=== PATIENT | male | born 1945 | race Caucasian/White ===

== ENCOUNTER 2017-07-17 14:20 | Emergency (ER) | payer MEDICARE, OTHER ==
[~2017-07-17] VITALS: Ht 188 cm; Wt 72.6 kg
[~2017-07-17 14:20] MED LIST: ASPIR 8181 MG PO; ASPIRIN EC81 MG PO; ASPIRIN325 MG PO; ATORVASTATIN CA20 MG PO; COUMADIN5 MG PO; METOPROLOL TART25 MG PO; PLAVIX75 MG PO; WARFARIN SODIUM5 MG PO; ZESTRIL2.5 MG PO; ZOCOR40 MG PO
--- NOTE | 2017-07-17 20:56 | EKG ---
[facility] [address] [facility] [place] [address] Signed Sinus bradycardia Anterolateral infarct (cited on or before 17-JUL-2017) Abnormal ECG When compared with ECG of 03-NOV-2016 13:12, Serial changes of Anterior infarct present Confirmed by PARISA PENALOZA MD ([id number]) on 07/17/2017 8:56:02 PM Electronically Signed By: PARISA PENALOZA MD 07/17/172055 PATIENT NAME: CALIN CROWDER Electrocardiogram DATE OF : 49 PHYSICIAN: PARISA PENALOZA MD REPORT #: [id number] REPORT IS CONFIDENTIAL AND NOT TO BE RELEASED WITHOUT AUTHORIZATION
== END 2017-07-17 15:50 | disposition home or self-care (01) ==
LOC: ED 14:20
DX: R07.9 Chest pain, unspecified (principal); Z95.1 Presence of aortocoronary bypass graft; Z79.899 Other long term (current) drug therapy; Z79.82 Long term (current) use of aspirin; Z79.01 Long term (current) use of anticoagulants
CPT/HCPCS: 71020; 80053; 84484; 85025; 85610; 85730; 93005; 93010; 99284

== ENCOUNTER 2018-06-13 10:41 | Emergency (ER) | payer MEDICARE, OTHER ==
[~2018-06-13] VITALS: Ht 188 cm; Wt 77.1 kg
--- OUTSIDE RECORDS SUMMARY | ~2018-06-13 | XMS | Encounter Summary ---
Demographics + + + | Address | [address] | | | [place] [address] | + + + | Home Phone | | + + + | Preferred Language | Unknown | + + + | Marital Status | Single | + + + | Tenriism Affiliation | Unknown | + + + | Race | Unknown | + + + | Ethnic Group | Unknown | + + + Author + + + | Author | [employer] | + + + | Organization | [facility] [employer] [facility] | + + + | Address | Unknown | + + + | Phone | Unavailable | + + + Support + + +---------+ + | Name | Relationship | Address | Phone | + + +---------+ + | Jai Rahman | ECON | Unknown | | + + +---------+ + | Afshan Rahman | ECON | Unknown | | + + +---------+ + Care Team Providers + +------+ + | Care Health And Safety Trainer Name | Role | Phone | + +------+ + | Erick Bernstein DO | PCP | Unavailable | + +------+ + Reason for Visit + + + | Reason | Comments | + + + | Labs Only | | + + + Encounter Details +--------+ + + + + | Date | Type | Department | Care Team | Description | +--------+ + + + + | 03/13/ | Destiny | [facility] | Nia Cazares | Labs Only | | 2018 | on Only | Cardiology Chauncey | [place], [place]AMILA | | | | | [address] | | | | | | [place] | | | | | | [address] | | | | | | [phone] | | | +--------+ + + + [...] + +---------+ + | Alcohol Use | Drinks/We | oz/Week | Comments | | | ek | | | + + +---------+ + | No | | | | + + +---------+ + + + + | Sex Assigned at | Date Recorded | | | | + + + | Not on file | | + + + as of this encounter Plan of Treatment +--------+---------+ + + + | Date | Type | Specialty | Care Team | Description | +--------+---------+ + + + | 08/16/ | Office | Cardiology | Warren Crawley, | | | 2017 | Visit | | MD Octavio Fitzpatrick | | | | | | Dr [address], | | | | | | [place] [address] | | | | | | [phone] | | | | | | | | +--------+---------+ + + + as of this encounter Visit Diagnoses Not on filein this encounter"
--- OUTSIDE RECORDS SUMMARY | ~2018-06-13 | XMS | Clinical Summary ---
Demographics + + + | Address | [address] | | | [place] [address] | + + + | Home Phone | | + + + | Preferred Language | Unknown | + + + | Marital Status | Single | + + + | Amish Affiliation | CHR | + + + | Race | White | + + + | Ethnic Group | Not or | + + + Author + + + | Author | [facility] | + + + | Organization | [facility] | + + + | Address | Unknown | + + + | Phone | Unavailable | + + + Support + + + + + | Name | Relationship | Address | Phone | + + + + + | CASSIDY KRISHNAMURTHY | ECON | [address] | | | | | [place] | | | | | [address] | | + + + + + | Linh Pate | ECON | Unknown | | + + + + + Care Team Providers + +------+ + | Care Radio Personality Name | Role | Phone | + +------+ + | Erick Bernstein DO | PP | | + +------+ + Source Comments BRIDGETTE is fully live on both [facility] Ambulatory and [facility] InPatient.[facility] [place] Allergies No Known Allergies Current Medications + + + +---------+------+------+-------+ | Prescription | Sig. | Disp. | Refills | Star | End | Statu | | | | | | t | Date | s | | | | | | Date | | | + + + +---------+------+------+-------+ | simvastatin 20 mg | Take 1 Tab by mouth | 30 Tab | 11 | 01/0 | | Activ | | Oral tablet | once daily in the | | | 8/20 | | e | | | evening. | | | 13 | | | + + + +---------+------+------+-------+ | nitroglycerin 0.4 | Place 0.4 mg under | | | | | Activ | | mg Sublingual | tongue every five | | | | | e | | tablet, sublingual | minutes as needed. | | | | | | | | Do not crush. Place | | | | | | | | under tongue and | | | | | | | | allow to dissolve. | | | | | | | | Administer every 5 | | | | | | | | minutes for a | | | | | | | | maximum of 3 doses | | | | | | | | in 15 minutes. | | | | | | + + + +---------+------+------+-------+ | amiodarone 200 mg | Take 2 tablets ( 400 | | | | | Activ | | Oral tablet | mg) by mouth once | | | | | e | | | daily | | | | | | + + + +---------+------+------+-------+ | acetaminophen 650 | Take 1 Tab by mouth | | | 03/2 | | Activ | | mg Oral tablet | every four hours | | | 06/15 | | e | | | while awake. | | | 13 | | | + + + +---------+------+------+-------+ | aspirin chewable | Take 1 Tab by mouth | | | 03/2 | | Activ | | 81 mg Oral tablet, | once daily. | | | 06/15 | | e | | chewable | | | | 13 | | | + + + +---------+------+------+-------+ | folic acid 1 mg | Take 1 Tab by mouth | | | 03/2 | | Activ | | Oral tablet | once daily. | | | 06/15 | | e | | | | | | 13 | | | + + + +---------+------+------+-------+ | | Take 1 Tab by mouth | | | 03/2 | | Activ | | multivitamin-mineral | once daily. | | | 06/15 | | e | | s Oral tablet | | | | 13 | | | + + + +---------+------+------+-------+ | omeprazole 40 mg | Take 1 Cap by mouth | | | 03/2 | | Activ | | Oral capsule,delayed | once daily. | | | 20 | | e | | release(DR/EC) | | | | 13 | | | + + + +---------+------+------+-------+ | oxyCODONE, | Take 1 Tab by mouth | 40 Tab | 0 | 03/2 | | Activ | | immediate release, 5 | every four hours as | | | 20 | | e | | mg Oral tablet | needed for moderate | | | 13 | | | | | pain or severe pain | | | | | | | | (for pain.). | | | | | | + + + +---------+------+------+-------+ | thiamine 100 mg | Take 1 Tab by mouth | | | 03/2 | | Activ | | Oral tablet | once daily. | | | 920 | | e | | | | | | 13 | | | + + + +---------+------+------+-------+ | warfarin 2 mg Oral | Take 1 Tab by mouth | | | 11/25 | | Activ | | tablet | once daily at | | | 06/15 | | e | | | bedtime. INR goal | | | 13 | | | | | 2-3 - adjust dose in | | | | | | | | accordance c INR | | | | | | + + + +---------+------+------+-------+ Active Problems + + + | Problem | Noted Date | + + + | Coronary artery disease | 11/26/2012 | + + + | Arrhythmia | 09/29/2012 | + + + Immunizations + + + + | Name | Dates Previously Given | Next Due | + + + + | Influenza-high dose, | 10/02/2012 | | | pfree | | | + + + + | Pneumococcal 23 | 10/03/2012 | | + + + + Family History + + +------+ + | Medical History | Relation | Name | Comments | + + +------+ + | Heart Disease | Brother | | | + + +------+ + | Heart Disease | Father | | black-outs and [place] | + + +------+ + + +------+--------+ + | Relation | Name | Status | Comments | + +------+--------+ + | Brother | | | | + +------+--------+ + | Father | | | | + +------+--------+ + Social History + +-------+ +--------+------+ | [...] on file | | + + + Last Filed Vital Signs + + + + | Vital Sign | Reading | Time Taken | + + + + | Blood Pressure | 121/88 | 01/04/2013 1:13 PM PDT | + + + + | Pulse | 97 | 01/04/2013 1:13 PM PDT | + + + + | Temperature | 36.3 C (97.3 F) | 01/04/2013 1:13 PM PDT | + + + + | Respiratory Rate | 18 | 12/22/2012 6:09 PM PDT | + + + + | Oxygen Saturation | 100% | 01/04/2013 1:13 PM PDT | + + + + | Inhaled Oxygen | - | - | | Concentration | | | + + + + | Weight | 130.6 kg (288 lb) | 01/04/2013 1:13 PM PDT | + + + + | Height | 188 cm (6' 2") | 01/04/2013 1:13 PM PDT | + + + + | Body Mass Index | 36.98 | 01/04/2013 1:13 PM PDT | + + + + Plan of Treatment + + + + + | Health Maintenance | Due Date | Last Done | Comments | + + + + + | Pneumococcal (Adult) | | 10/03/2012 | | | (2 of 2 - PCV13) | 4 | | | + + + + + | INFLUENZA VACCINE | | 10/02/2012 | | | (FLU SHOT) | 8 | | | + + + + + Results Not on filefrom Last 3 Months Insurance + +--------+ +--------+ + + | Payer | Benefi | Subscriber | Type | Phone | Address | | | t Plan | ID | | | | | | / | | | | | | | Group | | | | | + +--------+ +--------+ + + | MEDICARE | MEDICA | xxxxxxxxxx | Medica | +- | [address] | | | RE A & | | re | [phone] | [place] [address] | | | B | | | | | + +--------+ +--------+ + + | COMMERCIAL | INDIVI | xxxxxxxxxxx | Indemn | | | | INDIVIDUAL | DUAL | x | ity | | | | | COMMER | | | | | | | CIAL | | | | | + +--------+ +--------+ + + | SNF RESIDENT | SNF | xxxxxxxxxx | Indemn | | | | | RESIDE | | ity | | | | | NT | | | | | + +--------+ +--------+ + + + +--------+ +--------+ + + | Guarantor Name | Accoun | Relation to | Date | Phone | Billing Address | | | t Type | Patient | of | | | | | | | | | | + +--------+ +--------+ + + | CALIN CROWDER | Person | Self [birth year] | Home: | [address] | | | [place] | | 1945 | [phone] | [place] [address] | | | [place] | | | [phone] | | + +--------+ +--------+ + +
--- OUTSIDE RECORDS SUMMARY | ~2018-06-13 | XMS | Clinical Summary ---
Demographics + + + | Address | [address] | | | [place] [address] | + + + | Home Phone | | + + + | Preferred Language | Unknown | + + + | Marital Status | Single | + + + | Quaker Affiliation | Unknown | + + + | Race | Unknown | + + + | Ethnic Group | Unknown | + + + Author + + + | Author | [employer] | + + + | Organization | [facility] [employer] [facility] | + + + | Address [...] Team Providers + +------+ + | Care Ore Grader Name | Role | Phone | + [...] | 7 | + + + + Encounters +--------+ + + + + | Date | Type | Specialty | Care Team | Description | +--------+ + + + + | 03/13/ | Documentati | | Nia Cazares | Labs Only | | 2018 | on Only | | YAMILA Alberts | | +--------+ + + + + from Last 3 Months [...] | | Warren Crawley, | | | 2017 | Visit | | MD Octavio Fitzpatrick | | | | | | Dr [address], | | | | | | [place] [address] | | | | | | [phone] | | | | | | | [...] +------+-------+ + | MEDICARE | MEDICA | [id number] | | | [address] | | | RE | | | | [place] [address] | | | IP-OP | | | | | + +--------+ +------+-------+ + | MEDICAID | MEDICA | [id number] | | | [address] | | | ID | | | | [place] | | | [place] | | | | [address] | + +--------+ +------+-------+ + + +--------+ +--------+ + + | Guarantor Name | Accoun | Relation to | Date | Phone | Billing Address | | | t Type | Patient | of | | | | | | | | | | + +--------+ +--------+ + + | CALIN CROWDER | Person | Self | [birth year] | Home: | [address] | | | al/[place]am | | 1945 | [phone] | [place] | | | [place] | | | [phone] | [address] | + +--------+ +--------+ + +
--- OUTSIDE RECORDS SUMMARY | ~2018-06-13 | XMS | Clinical Summary ---
Demographics + + + | Address | [address] | | | [place] [address] | + + + | Home Phone | | + + + | Preferred Language | Unknown | + + + | Marital Status | Single | + + + | Adventist Affiliation | CHR | + + + [...] [place] | | | | | [address] | | + + + + + | Linh Pate | ECON | Unknown | | + + + + + Care Team Providers + +------+ + | Care Refinish Technician Name | Role | Phone | + +------+ + | Erick Bernstein DO | PP | | + +------+ + Source Comments BRIDGETTE is fully live on both [facility] Ambulatory and [facility] InPatient.[facility] Allergies No Known Allergies Current Medications + [...] Disease | Father | | black-outs and [place] | + + +------+ + + +------+--------+ [...] | re | [address] | [place] [address] | | | B | | | [...] | | al/[place] | | 1945 | [phone] | [place] [address] | | | [place] | | | [phone] | | + +--------+ +--------+ + +
--- OUTSIDE RECORDS SUMMARY | ~2018-06-13 | XMS | Clinical Summary ---
Demographics + + + | Address | [address] | | | [place] [address] | + + + | Home Phone | | + + + | Preferred Language | Unknown | + + + | Marital Status | Single | + + + | Voodoo Affiliation | Unknown | + + + | Race | Unknown | + + + | Ethnic Group | Unknown | + + + Author + + + | Author | [employer] | + + + | Organization | [facility] [employer] [facility] | + + + | Address [...] Team Providers + +------+ + | Care Bookmaker'S Clerk Name | Role | Phone | + [...] | | | | | | [place] [address] | | | | | | [phone] | | | | | | | [...] +------+-------+ + | MEDICARE | MEDICA | [id number] | | | [address] | | | RE | | | | [place] [address] | | | IP-OP | | | | | + +--------+ +------+-------+ + | MEDICAID | MEDICA | [id number] | | | [address] | | | ID | | | | [place] | | | [place] | | | | [address] | + +--------+ +------+-------+ + + +--------+ +--------+ + + | Guarantor Name | Accoun | Relation to | Date | Phone | Billing Address | | | t Type | Patient | of | | | | | | | | | | + +--------+ +--------+ + + | CALIN CROWDER | Person | Self [birth year] | Home: | [address] | | | al/[place]am | | 1945 | [phone] | [place] | | | [place] | | | [phone] | [address] | + +--------+ +--------+ + +
--- OUTSIDE RECORDS SUMMARY | ~2018-06-13 | XMS | Encounter Summary ---
Demographics + + + | Address | [address] | | | [place] [address] | + + + | Home Phone | | + + + | Preferred Language | Unknown | + + + | Marital Status | Single | + + + | Anglican Affiliation | Unknown | + + + | Race | Unknown | + + + | Ethnic Group | Unknown | + + + Author + + + | Author | [employer] | + + + | Organization | [facility] | + + + | Address [...] Team Providers + +------+ + | Care Telephone Station Installer Name | Role | Phone | + [...] [place] | | | | | | [address] | | | | | | [phone] | | | +--------+ + + + [...] | | | | | | [place] [address] | | | | | | [phone] | | | | | | | | +--------+---------+ + + + as of this encounter Visit Diagnoses Not on filein this encounter"
[~2018-06-13 10:41] MED LIST changes: +LISINOPRIL5 MG PO
--- OUTSIDE RECORDS SUMMARY | 2018-06-13 10:46 | XMS ---
PreManage Notification: CALIN CROWDER Security Panel Machine Tender Events No recent Security Events currently on file CRITERIA MET - POL CARE PROVIDERS There are no care providers on record at this time. Mary has no Care Guidelines for this patient. Juan Daniel VISIT COUNT (12 MO.) 2 [facility] TOTAL 2 NOTE: Visits indicate total known visits. ED/C VISIT TRACKING (12 MO.) 06/13/2018 10:42 [facility] [place] TYPE: Emergency COMPLAINT: - R ARM/L ANKLE/L KNEE PAIN/FALL 07/17/2017 14:[address] [facility] [place] TYPE: Emergency COMPLAINT: - CHEST PAIN DIAGNOSES: - Chest pain, unspecified - terminal system operator (current) use of aspirin - Other skilled nursing (current) drug therapy - snf (current) use of anticoagulants - Presence of aortocoronary bypass graft INPATIENT VISIT TRACKING (12 MO.) No inpatient visits to display in this time frame [email or web address]
[2018-06-13] MEDS ORDERED: ULTRAM50 MG PO (13:23)
== END 2018-06-13 14:05 | disposition home or self-care (01) ==
LOC: ED 10:41
PROC: 0T9B70Z Drainage of Bladder with Drainage Device, Via Natural or Artificial Opening (ICD-10-PCS; principal; 2018-06-13)
DX: S93.402A Sprain of unspecified ligament of left ankle, initial encounter (principal); S83.92XA Sprain of unspecified site of left knee, initial encounter; M79.601 Pain in right arm; Z79.899 Other long term (current) drug therapy; Z79.01 Long term (current) use of anticoagulants; W19.XXXA Unspecified fall, initial encounter
CPT/HCPCS: 51701; 70450; 73060; 73560; 73610; 80053; 81001; 85025; 85610; 99284

== ENCOUNTER 2018-06-24 11:42 | Observation (INO) | payer MEDICARE, OTHER ==
[~2018-06-24] VITALS: Ht 188 cm; Wt 82.7 kg
--- OUTSIDE RECORDS SUMMARY | ~2018-06-24 | XMS | Clinical Summary ---
Demographics + + + | Address | [address] | | | [place] [address] | + + + | Home Phone | | + + + | Preferred Language | Unknown | + + + | Marital Status | Single | + + + | Hinduism Affiliation | Unknown | + + + | Race | Unknown | + + + | Ethnic Group | Unknown | + + + Author + + + | Author | [employer] | + + + | Organization | [facility] [employer] | + + + | Address [...] Team Providers + +------+ + | Care Edge Glue Machine Tender Name | Role | Phone | + +------+ + | Erick Bernstein DO | PP | Unavailable | + +------+ + Allergies No Known Allergies Current Medications + + +--------+---------+------+------+-------+ | Prescription | Sig. | Disp. | Refills | Star | End | Statu | | | | | | t | Date | s | | | | | | Date | | | + + +--------+---------+------+------+-------+ | senna (SENOKOT) | Take 1 tablet by | | | | | Activ | | 8.6 MG tablet | mouth 2 (two) times | | | | | e | | | daily. | | | | | | + + +--------+---------+------+------+-------+ | warfarin | Take 5 mg by mouth | | | | | Activ | | (COUMADIN) 5 MG | daily. | | | | | e | | tablet | | | | | | | + + +--------+---------+------+------+-------+ | acetaminophen | Take 650 mg by mouth | | | | | Activ | | (TYLENOL) 325 MG | every 6 (six) hours | | | | | e | | tablet | as needed. | | | | | | + + +--------+---------+------+------+-------+ | aspirin 81 MG | Take 81 mg by mouth | | | | | Activ | | tablet | daily. | | | | | e | + + +--------+---------+------+------+-------+ | atorvastatin | take 1 tablet by | 90 | 2 | 04/2 | 04/2 | Activ | | (LIPITOR) 20 MG | mouth NIGHTLY | tablet | | 5/20 | 5/20 | e | | tablet | | | | 18 | 19 | | + + +--------+---------+------+------+-------+ | lisinopril | Take 1 tablet by | 90 | 2 | 01/24 | 01/24 | Activ | | (ZESTRIL) 5 MG | mouth daily. 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 | 10/16/2012 | + + + Resolved Problems + + + + | Problem | Noted | Resolved | | | Date | Date | + + + + | IGNACIA (acute kidney injury) | 10/16/19 | | | | 13 | 7 | + + + + | Obesity | 10/16/19 | | | | 13 | 7 | + + + + | Hyperkalemia | 10/16/19 | | | | 13 | 7 | + + + + Social History + [...] + + + | Blood Pressure | 124/72 | 02/08/2018 11:32 AM PDT | + + + + | Pulse | 64 | 02/08/2018 11:32 AM PDT | + + + + | Temperature | 35.4 C (95.7 F) | 10/16/2012 12:27 PM PST | + + + + | Respiratory Rate | - | - | + + + + | Oxygen Saturation | 100% | 02/08/2018 11:32 AM PDT | + + + + | Inhaled Oxygen | - | - | | Concentration | | | + + + + | Weight | 81.1 kg (178 lb 12.8 | 02/08/2018 11:32 AM PDT | | | oz) | | + + + + | Height | 188 cm (6' 2") | 02/08/2018 11:32 AM PDT | + + + + | Body Mass Index | 22.96 | 02/08/2018 11:32 AM PDT | + + + + Plan of Treatment +--------+---------+ + + + | Date | Type | Specialty | Care Team | Description | +--------+---------+ + + + | 08/16/ | Office | | Warren Crawley, | | | 2018 | Visit | | MD Octavio Fitzpatrick | | | | | | Dr Reese, | | | | | | [place] [address] | | | | | | [phone] | | | | | | | | +--------+---------+ + + + + + + + + | Health Maintenance | Due Date | Last Done | Comments | + + + + + | Colon Cancer | | | | | Screening | 7 | | | | (Colonoscopy) | | | | + + + + + | Vaccine: Zoster (1 | | | | | of 2) | 7 | | | + + + + + | Vaccine: | | | | | Pneumococcal 65+ | 2 | | | | Low/Medium Risk (1 | | | | | of 2 - PCV13) | | | | + + + + + | Vaccine: Influenza | | 10/20/2011 | | | (#1) | 8 | | | + + + + + | Vaccine: | | 10/20/2011 | | | Dtap/Tdap/Td (2 - | 2 | | | | Td) | | | | + + + + + Results Not on filefrom Last 3 Months Insurance + +--------+ +------+-------+ + | Payer | Benefi | Subscriber | Type | Phone | Address | | | t Plan | ID | | | | | | / | | | | | | | Group | | | | | + +--------+ +------+-------+ + | MEDICARE | MEDICA | [id number] | | | [address] | | | RE | | | | [place] [address] | | | IP-OP | | | | | + +--------+ +------+-------+ + | MEDICAID | MEDICA | [id number] | | | [address] | | | ID | | | | [place], [place] | | | [place] | | | | [address] | + +--------+ +------+-------+ + + +--------+ +--------+ + + | Guarantor Name | Accoun | Relation to | Date | Phone | Billing Address | | | t Type | Patient | of | | | | | | | | | | + +--------+ +--------+ + + | CALIN CROWDER | Person | Self [birth year] Home: | [address] [place] [address] | | | al/Fam | | 1945 | [phone] | [place] | | | [place] | | | [phone] | [phone] | + +--------+ +--------+ + +
--- OUTSIDE RECORDS SUMMARY | ~2018-06-24 | XMS | Clinical Summary ---
Demographics + + + | Address | [address] | | | [place] [address] | + + + | Home Phone | | + + + | Preferred Language | Unknown | + + + | Marital Status | Single | + + + | Holiness Affiliation | CHR | + + + [...] [place] | | | | | [address] | | + + + + + | Linh Pate | ECON | Unknown | | + + + + + Care Team Providers + +------+ + | Care Laboratory Apparatus Glass Grinder Name | Role | Phone | + +------+ + | Erick Bernstein DO | PP | | + +------+ + Source Comments BRIDGETTE is fully live on both [facility] Amb[facility] and [facility] InPatient.[facility] Allergies No Known Allergies Current Medications + [...] Due | + + + + | Influenza, high dose | 10/02/2012 | | | seasonal, | | | | preservative-free | | | + + + + | Pneumococcal 23 | 10/03/2012 | | + + + + Family History + + +------+ + | Medical History | Relation | Name | Comments | + + +------+ + | Heart Disease | Brother | | | + + +------+ + | Heart Disease | Father | | black-outs and [place] | + + +------+ + + +------+--------+ [...] | re | [address] | [place] [address] | | | B | | | [...] Self | [birth year] | Home: | [address] | | | al/Fam | | 1945 | [phone] | [place] [address] | | | [place] | | | [phone] | | + +--------+ +--------+ + +
--- OUTSIDE RECORDS SUMMARY | ~2018-06-24 | XMS | Clinical Summary ---
Demographics + + + | Address | [address] | | | [place] [address] | + + + | Home Phone | | + + + | Preferred Language | Unknown | + + + | Marital Status | Single | + + + | Tenriism Affiliation | Unknown | + + + | Race | Unknown | + + + | Ethnic Group | Unknown | + + + Author + + + | Author | [employer] | + + + | Organization | [facility] [employer] | + + + | Address [...] Team Providers + +------+ + | Care Ice Guard Skating Rink Name | Role | Phone | + +------+ + | Eirck Bernstein DO | PP | Unavailable | [...] | | | | | | [place] [address] | | | | | | [phone] | | | | | | | [...] +------+-------+ + | MEDICARE | MEDICA | [id number] | | | [address] | | | RE | | | | [place] [address] | | | IP-OP | | | | | + +--------+ +------+-------+ + | MEDICAID | MEDICA | [id number] | | | [address] | | | ID | | | | [place], [place] | | | [place] | | | | [address] | + +--------+ +------+-------+ + + +--------+ +--------+ + + | Guarantor Name | Accoun | Relation to | Date | Phone | Billing Address | | | t Type | Patient | of | | | | | | | | | | + +--------+ +--------+ + + | CALIN CROWDER | Person | Self | [birth year] | Home: | [address] [place] [address] | | | al/Fam | | 1945 | [phone] | [place] | | | [place] | | | [phone] | [phone] | + +--------+ +--------+ + +
--- OUTSIDE RECORDS SUMMARY | ~2018-06-24 | XMS | Clinical Summary ---
Demographics + + + | Address | [address] | | | [place] [address] | + + + | Home Phone [...] [place] | | | | | [address] | | + + + + + | Linh Pate | ECON | Unknown | | + + + + + Care Team Providers + +------+ + | Care Covering Machine Tender Name | Role | Phone | + +------+ + | Erick Bernstein DO | PP | | + +------+ + Source Comments BRIDGETTE is fully live on both [facility] and [facility] InPatient.[facility] Allergies No Known Allergies Current Medications [...] | re | [address] | [place] [address] | | | B | | | [...] | | al/Fam | | 1945 | [phone] | [place] [address] | | | [place] | | | [phone] | | + +--------+ +--------+ + +
--- OUTSIDE RECORDS SUMMARY | ~2018-06-24 | XMS | Clinical Summary ---
Demographics + + + | Address | [address] | | | [place] [address] | + + + | Home Phone [...] [place] | | | | | [address] | | + + + + + | Linh Pate | ECON | Unknown | | + + + + + Care Team Providers + +------+ + | Care Drawbench Operator Name | Role | Phone | + +------+ + | Erick Bernstein DO | PP | | + +------+ + Source Comments BRIDGETTE is fully live on both [facility] Amb[facility] and [facility] InPatient.[facility] Allergies No Known Allergies Current Medications + [...] Disease | Father | | black-outs and [place] | + + +------+ + + +------+--------+ [...] | re | [address] | [place] [address] | | | B | | | [...] | | al/Fam | | 1945 | [phone] | [place] [address] | | | [place] | | | [phone] | | + +--------+ +--------+ + +
--- OUTSIDE RECORDS SUMMARY | ~2018-06-24 | XMS | Clinical Summary ---
Demographics + + + | Address | [address] | | | [place] [address] | + + + | Home Phone | | + + + | Preferred Language | Unknown | + + + | Marital Status | Single | + + + | Christian Affiliation | Unknown | + + + | Race | Unknown | + + + | Ethnic Group | Unknown | + + + Author + + + | Author | [employer] | + + + | Organization | [facility] [employer] | + + + | Address [...] Team Providers + +------+ + | Care Marketing Trainee Name | Role | Phone | + [...] | | | | | | [place] [address] | | | | | | [phone] | | | | | | | [...] +------+-------+ + | MEDICARE | MEDICA | [id number] | | | [address] | | | RE | | | | [place] [address] | | | IP-OP | | | | | + +--------+ +------+-------+ + | MEDICAID | MEDICA | [id number] | | | [address] | | | ID | | | | [place], [place] | | | [place] | | | | [address] | + +--------+ +------+-------+ + + +--------+ +--------+ + + | Guarantor Name | Accoun | Relation to | Date | Phone | Billing Address | | | t Type | Patient | of | | | | | | | | | | + +--------+ +--------+ + + | CALIN CROWDER | Person | Self | [birth year] | Home: | [address] [place] [address] | | | al/Fam | | 1945 | [phone] | [place] | | | [place] | | | [phone] | [phone] | + +--------+ +--------+ + +
[~2018-06-24 11:42] MED LIST changes: +ULTRAM50 MG PO
--- OUTSIDE RECORDS SUMMARY | 2018-06-24 11:46 | XMS ---
PreManage Notification: CALIN CROWDER Security Lehr Cutter Events No recent Security Events currently on file CRITERIA MET - [facility] - 2 Visits in 30 Days CARE PROVIDERS BARB RUBIO Internal Medicine 06/13/2018-Current PHONE: [phone] Mary has no Care Guidelines for this patient. Care History Medical/Surgical 06/14/2018 [facility] - Patient is currently established with [facility]. If patient is seen in the ED during business hours. Please contact CHWs at [facility]. Care Recommendation: This patient has had 5 or more Emergency Department visits in the last 12 months.\T\nbsp; Patient requires education on the scope and purpose of the ED as an acute care provider not a Primary Care Provider and should not be utilized for chronic conditions.\T\nbsp; These are guidelines and the provider should exercise clinical judgment when providing care. E.D. VISIT COUNT (12 MO.) 3 [facility] TOTAL 3 NOTE: Visits indicate total known visits. ED/UCC VISIT TRACKING (12 MO.) 06/24/2018 11:42 [facility] [place] TYPE: Emergency COMPLAINT: - ALTERED LOC 06/13/2018 10:42 [facility] [place] TYPE: Emergency COMPLAINT: - R ARM/L ANKLE/L KNEE PAIN/FALL DIAGNOSES: - Pain in right arm - Unspecified fall, initial encounter - Unspecified injury of left ankle, initial encounter - Unspecified injury of right ankle, initial encounter - long-term (current) use of anticoagulants - Sprain of unspecified ligament of left ankle, initial encounter - Other local intermodal truck driver (current) drug therapy - Sprain of unspecified site of left knee, initial encounter 07/17/2017 14:[address] [facility] [place] TYPE: Emergency COMPLAINT: - CHEST PAIN DIAGNOSES: - Chest pain, unspecified - manager intermediate (current) use of aspirin - Other correction (current) drug therapy - manager intermediate (current) use of anticoagulants - Presence of aortocoronary bypass graft INPATIENT VISIT TRACKING (12 MO.) No inpatient visits to display in this time frame [email or web address]
[2018-06-24] MEDS ORDERED: BACTRIM DS TAB1 EACH PO (11:59)
--- NOTE | 2018-06-24 15:40 | NUR ---
PT ARRIVED TO FLOOR FROM ED. PT ON ROOM AIR, VSS. PT IS NONVERBAL AT BASELINE, WITH OCCASIONAL HEAD NODDING. ADMISSION HISTORY AND ASSESSMENT COMPLETE, PT'S CAREGIVER IN ROOM ASSISTING WITH HEALTH HISTORY. PILLOW PLACED UNDER LEFT ARM FOR ELEVATION. REDDENED AREA NOTED AT RIGHT INNER BUTTOCK, BLANCHING NOTED. PILLOW PLACED UNDER RIGHT SIDE/BUTTOCK. BED IN LOW POSITION, CALL LIGHT WITHIN REACH.
--- NOTE | 2018-06-24 15:40 | NUR ---
PT NONVERBAL AT BASELINE. MEDICATION RECONCILE INFORMATION PROVIDED FROM CAREGIVER/PERSON TO NOTIFY ULISES AKINS.
--- NOTE | 2018-06-24 17:56 | NUR ---
PT WAS ADMITTED TO THE FLOOR FROM THE ER EARLIER THIS AFTERNOON. PT ON ROOM AIR, VSS. PT IS NONVERBAL AT BASELINE, BUT DOES OCASSIONALLY NOD OR SHAKE HEAD. PT IS SALINE LOCKED. PT IS BEDRIDDEN SINCE RECENT FALL. PT ON REGULAR/SOFT DIET. LEFT ARM PLACED UNDER PILLOW FOR ELEVATION.
--- NOTE | 2018-06-24 18:20 | NUR ---
CONSENT FORM FOR IMAGE COLLECTION SIGNED AND PLACED IN CHART.IMAGE OF REDDENED AREA ON COCCYX/BUTTOCKS TAKEN AND PLACED IN PATIENT CHART. NEW ATTENDS IN PLACE. BED IN LOW POSITION, CALL LIGHT WITHIN REACH.
--- NOTE | 2018-06-24 18:26 | NUR ---
pateint in bed, changed, pictures taken of bottom, repostioned on left side
--- NOTE | 2018-06-24 20:02 | NUR ---
PT RESTING SUPINE IN BED, EYES CLOSED AND RESPIRATIONS EVEN AND UNLABORED. CALL LIGHT IN REACH. PT ALERT TO VOICE ASSESSMENT COMPLETED. NO NEEDS VOICED. PT IN SIGHT OF NURSING STATION. BED ALARM ON.
--- NOTE | 2018-06-24 20:25 | EKG ---
[facility] [address] [facility] [place] [address] Signed Normal sinus rhythm Anterolateral infarct (cited on or before 17-JUL-2017) Abnormal ECG When compared with ECG of 17-JUL-2017 14:24, ST now depressed in Lateral leads Confirmed by PARISA PENALOZA MD ([id number]) on 06/24/2018 8:24:59 PM Electronically Signed By: PARISA PENALOZA MD 06/24/182024 PATIENT NAME: CALIN CROWDER Electrocardiogram DATE OF : [birth year] PHYSICIAN: PARISA PENALOZA MD REPORT #: [id number] REPORT IS CONFIDENTIAL AND NOT TO BE RELEASED WITHOUT AUTHORIZATION
--- NOTE | 2018-06-24 22:25 | NUR ---
pt turned and changed. pt had sip of water. pt resting in bed.
--- NOTE | 2018-06-24 22:38 | NUR ---
pt incontinent of urine, skin cleansed, clean attends in place, turned to r side. r sided facial droopiness present, stiffnes of right leg present. call light at bedside, no rewuests
--- NOTE | 2018-06-25 00:16 | NUR ---
PT RESTING SUPINE IN BED, RESPIRATIONS EVEN AND UNLABORED. PT APPEARS TO BE SLEEPING COMFORTABLY. CALL LIGHT IN REACH, BED ALARM ON AND PT IN VIEW OF NURSING STATION.
--- NOTE | 2018-06-25 02:22 | NUR ---
DR PENALOZA NOTIFIED OF NO URINE OUTPUT IN PAST 4 HOURS.
--- NOTE | 2018-06-25 02:22 | NUR ---
PT RESTING SUPINE IN BED, EYES CLOSED AND RESPIRATIONS EVEN AND UNLABORED. ASSESSMENT COMPLETD. BP LOW AT 94/44 (MAP 55) NO URINE OUTPUT IN PAST 4 HOURS. PT IS ALERT TO VOICE AND ORIENTED TO SELF, OTHERWISE NONVERBAL. DR PENALOZA NOTIFIED OF LOW BP, AND OF LOW URINE OUTPUT. NO NEW ORDERS RECEIVED. CALL LIGHT IN REACH. PT DRINKS 200MLS OF H20 WITH ASSISTANCE. PT REMAISN IN LINE OF SIGHT.
--- NOTE | 2018-06-25 05:51 | NUR ---
PT HAD EPISODE OF LARGE AMOUNT OF URINARY INCONTINANCE WITH ATTENDS AND PAD SOAKED. PT WAS CHANGED AND CLEANED AT THIS TIME WITH ASSISTACNE FROM ZOHREH REYES. VS'S COMPLETED AND STABLE. CALL LIGHT IN REACH. BED ALARM ON. PT APPEARS TO BE RESTING COMFORTABLY AND DRANK APPROX 150 MLS OF H20 WITH ASSISTANCE HOLDING.
--- NOTE | 2018-06-25 06:38 | NUR ---
pt appeared to have slept comfortably through the night. PT IS ON ROOM AIR, RESPIRATIONS EVEN AND UNLBAORED MOST RECENT VSS AND GOOD URINE OUTPUT. PT DID HAVE A LOW BP AND 4 HR PERIOD OF LOW URINE OUTPUT IN THE NIGHT BUT THIS HAS SINCE RESOLVED. PT IS NONVERBAL AT BASELINE. SALINE LOCKED. REDNESS TO LEFT WRIST; LEFT ARM ELEVATED ON PILLOW. COCCYX REDDENED BUT BLANCHEABLE. PT HAS BEEN BEDRIDDEN SINCE HIS FALL AT HOME ABOUT 2 WEEKS AGO. PT HAS BNOT USED THE CALL LIGHT THIS SHIFT AND HAS BEEN IN LINE OF SIGHT OF NURSING STATION WITH BED ALARM ON.
--- NOTE | 2018-06-25 07:41 | NUR ---
patient in bed, i ordered breakfast for him, board updated
--- NOTE | 2018-06-25 08:48 | NUR ---
assumed care, pt very sleepy, resp. rate regular, hr wnl. call light in reach, occasional non productive cough.
--- NOTE | 2018-06-25 14:00 | NUR ---
MED REC COMPLETE WITH PHARMACY REFILL HISTORY AND NURSE INTERVIEW OF CAREGIVER.
--- NOTE | 2018-06-25 14:38 | NUR ---
changed patient, he was sleeping, took vital signs, he needed no other assistance at this time
--- NOTE | 2018-06-25 16:55 | NUR ---
pt up to ch, bed bath and linen change. nonverbal - attends wet and changed
--- NOTE | 2018-06-25 17:57 | NUR ---
IN CHAIR, ONE PERSON TRANSFER TO CHAIR, HE ATE HIS DINNER AND IS CURRENTLY WATCHING TV SITTING UP, NEEDS NO OTHER ASSISTANCE
--- NOTE | 2018-06-25 18:18 | NUR ---
pt had uneventful day, uses cues well for non verbal needs - up to ch for meal - inc. urine. family was here today. pt 1 person pivot trsf to ch with this rn. call light in reach - gave rn 2 thumbs up.
--- NOTE | 2018-06-25 20:30 | NUR ---
PT ASSSITED IN TRANSFERING TO BED AND IN CLEANING UP FROM LARGE BROWN FORMED BM. PT NOW RESTING IN BED APPEARS COMFORTABLE AND REMAINS IN VIEW OF NURSING STATION. PT ASSSITED WITH HOLDING WATER CUP AND DRINKS APPROX 100 MLS OF H20.
--- NOTE | 2018-06-25 22:08 | NUR ---
PT RESTING IN BED, APPEARS TO BE COMFORTABLE. PO ANTIBIOTIC TOLORATED AND IV FLUSHED AND IS PATENT. PT REMAINS IN VIEW OF NURSING STATION.
--- NOTE | 2018-06-25 22:45 | NUR ---
PT RESTING SUPINE IN BED, RESPIRATIONS EVEN AND UNLABORED AND CALL LIGHT/H20 IN REACH. PT APPEARS TO BE SLEEPING COMFORTABLY.
--- NOTE | 2018-06-26 04:12 | NUR ---
PT RESTING SUPINE IN BED, RESPIRATIONS EVEN AND UNLBAORED. EYES CLOSED AND PT APPEARS TO BE SLEEPING COMFORTABLY. CALL LIGHT NAD H20 INREACH AND BED ALARM ON. PT IN VIEW OF NURSING STATION.
--- NOTE | 2018-06-26 05:18 | NUR ---
pt resting supine in bed, vss, pt appears to be resting comfortably. bed alarm information clerk cashier light in reach.
--- NOTE | 2018-06-26 05:31 | NUR ---
PT APPEARED TO HAVE SLEPT COMFORTABLY THOUGH MAJORITY OF NIGHT. PT HAS BEEN INCREASINGLY VERBAL AND OCCASIONALY WILL FORM SHORT SENTANCES BUT USUALLY REMAINS NONVERBAL. PT'S STRENGTH HAS ALSO IMPROVED. ROOM AIR. PT REMAINS ON PO ANTIBIOTICS. VOIDING QS, VSS. 2 PERSON ASSIST TO CHAIR. REDNESS,WARMTH AND SWELLING HAVE CONTINUED TO IMPOROVE. PT IS INCONTINANT. IV SL'D. REGULAR/SOFT DIET.
--- NOTE | 2018-06-26 07:32 | NUR ---
BEDSIDE REPORT RECEIVED FROM JLUIS. PATIENT RESTING WITH EYES CLOSED. WHITE BOARD UPDATED.
--- NOTE | 2018-06-26 08:07 | NUR ---
BEDSIDE SHIFT REPORT RECEIVED FROM JLUIS BRUNER. WHITE BOARD UPDATED BY BRITTANY BRUNER. PATIENT SLEEPING WITH HOB ELEVATED. ALLOWING PATIENT TO REST NOW. NO NEEDS AT THIS TIME. CALL LIGHT WITHIN REACH.
--- NOTE | 2018-06-26 09:35 | NUR ---
ASSESSMENT AND MEDICATIONS DUE. PATIENT WATCHING TV. PATIENT ALLOWED ASSESSMENT, ANSWERED YES/NO QUESTIONS. BREAKFAST ORDERED. MEDICATIONS GIVEN. CALL LIGHT WITHIN REACH. CURTAIN OPEN TO NURSES STATION.
--- NOTE | 2018-06-26 10:08 | NUR ---
PATIENT IN BED. LISSETTE CARE DONE. NEW DEPENDS. FRESHWATER GIVEN. CALL LIGHT IN REACH. NO FURTHER NEEDS AT THIS TIME.
[2018-06-26] MEDS ORDERED: CEPHALEXIN500 MG PO (11:03)
[2018-06-26] MEDS ORDERED: WARFARIN SODIUM5 MG PO (11:13)
--- NOTE | 2018-06-26 12:19 | NUR ---
PATIENT READY FOR DISCHARGE. VSS. PIV DC'D. CAREGIVER, ULISES, DRESSED PATIENT. FLU SHOT GIVEN. DISCHARGE INSTRUCTIONS GIVEN TO PATIENT AND CAREGIVER. CAREGIVER STATED ALL QUESTIONS HAVE BEEN ANSWERED AND VERBALIZED UNDERSTANDING OF DISCHARGE INSTRUCTIONS. PATIENT WHEELED TO FRONT BY ZOHREH PELAEZ.
== END 2018-06-26 12:20 | disposition home or self-care (01) ==
LOC: ED 11:42 → MS 11:43
PROVIDERS: ADMIT Internal Medicine
DX: L03.114 Cellulitis of left upper limb (principal); G93.41 Metabolic encephalopathy; E87.1 Hypo-osmolality and hyponatremia; F03.90 Unspecified dementia, unspecified severity, without behavioral disturbance, psychotic disturbance, mood disturbance, and anxiety; F89 Unspecified disorder of psychological development; N18.9 Chronic kidney disease, unspecified; R79.1 Abnormal coagulation profile; Z91.81 History of falling; Z23 Encounter for immunization; Z95.1 Presence of aortocoronary bypass graft; Z79.01 Long term (current) use of anticoagulants; Z79.82 Long term (current) use of aspirin; Z79.891 Long term (current) use of opiate analgesic; Z79.899 Other long term (current) drug therapy; Z86.73 Personal history of transient ischemic attack (TIA), and cerebral infarction without residual deficits
CPT/HCPCS: 36415; 51701; 70450; 71045; 80048; 80053; 81001; 83605; 84484; 84550; 85025; 85610; 85651; 86140; 93005; 93010; 96365; 96366; 99285; G0008; G0378; G0480; J1885; J2543

== ENCOUNTER 2018-11-27 09:52 | Inpatient (IN) | payer MEDICARE, OTHER ==
[~2018-11-27] VITALS: Ht 188 cm; Wt 81.7 kg
[~2018-11-27 09:52] MED LIST changes: +ADULT ASPIRIN81 MG PO; +BACLOFEN10 MG PO; +BACTRIM DS TAB1 EACH PO; +CEPHALEXIN500 MG PO; +FLUOXETINE HCL20 MG PO; +LISINOPRIL2.5 MG PO; +MAGNESIUM500 MG PO
--- OUTSIDE RECORDS SUMMARY | 2018-11-27 10:10 | XMS ---
PreManage Notification: CALIN CROWDER Security Office Inspector Events No recent Security Events currently on file CRITERIA MET - [facility] - Has Care Guidelines - POL CARE PROVIDERS BARB RUBIO Internal Medicine 06/13/2018-Current PHONE: Unknown Mary has no Care Guidelines for this patient. Care History Medical/Surgical 06/14/2018 [facility] - Patient is currently established with [facility]. If patient is seen in the ED during business hours. Please contact CHWs at [facility]. Care Recommendation: This patient has had 5 [...] providing care. E.D. VISIT COUNT (12 MO.) 4 [facility] TOTAL 4 NOTE: Visits indicate total known visits. ED/UCC VISIT TRACKING (12 MO.) 11/27/2018 09:52 [facility] TYPE: Emergency COMPLAINT: - ABD ISSUES/DIARRHEA/VOMITING 07/04/2018 11:33 [facility] TYPE: Emergency COMPLAINT: - WEAKNESS DIAGNOSES: - Chronic kidney disease, unspecified - Weakness - Other fdc (current) drug therapy - senior living (current) use of anticoagulants - Dehydration 06/24/2018 11:42 [facility] [place] TYPE: Emergency COMPLAINT: - ALTERED LOC 06/13/2018 10:42 [facility] TYPE: Emergency COMPLAINT: - R ARM/L ANKLE/L KNEE PAIN/FALL DIAGNOSES: - Pain in right arm - Unspecified fall, initial encounter - Unspecified injury of left ankle, initial encounter - Unspecified injury of right ankle, initial encounter - senior living (current) use of anticoagulants - Sprain of unspecified ligament of left ankle, initial encounter - Other joint terminal attack controller (current) drug therapy - Sprain of unspecified site of left knee, initial encounter INPATIENT VISIT TRACKING (12 MO.) 06/24/2018 11:43 [facility] TYPE: Medical Surgical COMPLAINT: - CELLULITIS DIAGNOSES: - Presence of aortocoronary bypass graft - Personal history of transient ischemic attack (TIA), and cerebral infarction without residual deficits - Abnormal coagulation profile - Unspecified disorder of psychological development - Encounter for immunization - senior living (current) use of anticoagulants - Metabolic encephalopathy - computer terminal operator (current) use of aspirin - Cellulitis of left upper limb - Other fdc (current) drug therapy - Chronic kidney disease, unspecified - senior living (current) use of opiate analgesic - Hypo-osmolality and hyponatremia - Unspecified dementia without behavioral disturbance - History of falling [email or web address]
[2018-11-27] MEDS ORDERED: FLUOXETINE HCL40 MG PO (17:48)
--- NOTE | 2018-11-27 17:49 | NUR ---
Medications reconciled using patient medication records
--- NOTE | 2018-11-27 17:51 | NUR ---
Pt resting on right lateral side in bed, respirations even and unlabored. Pt has flat affect and somewhat withdrawn but is alert to voice and follows some simple commands. Family at bedside, bed alarm on and call light in reach. Pt remians in view of nursing station. Pt appears to be in no acute distress. IV abx infusing. IV site appears to be wnl with no swelling redness or warmth.
--- NOTE | 2018-11-27 17:56 | NUR ---
PATIENT IN BED RESTING, GROUND SYSTEMS ENGINEER IN ROOM. CALL LIGHT IN REACH. NO FURTHER NEEDS AT THIS TIME.
--- NOTE | 2018-11-27 19:03 | NUR ---
RECIEVED BEDSIDE REPORT FROM CONCHIS BRUNER. PATIENT LAYING IN BED ON RIGHT SIDE WITH EYES CLOSED, RESPIRATORY RATE IS EVEN AND UNLABORED. IV FLUIDS INFUSING PER MAR ORDER. VISITOR AT BEDSIDE. WHITE BOARD UPDATED. NO MORE NEEDS AT THIS TIME.
--- NOTE | 2018-11-27 19:25 | NUR ---
PATIENT OFF THE FLOOR AT THIS TIME VIA STRETCHER ACCOMPANIED BY RN FROM SURGERY.
--- NOTE | 2018-11-27 19:40 | EKG ---
[facility] [address] [facility] [place] [address] Signed Normal sinus rhythm Possible Left atrial enlargement Anterolateral infarct (cited on or before 17-JUL-2017) Abnormal ECG When compared with ECG of 24-JUN-2018 12:37, ST no longer depressed in Lateral leads Nonspecific T wave abnormality now evident in Inferior leads T wave inversion no longer evident in Lateral leads Confirmed by PARISA PENALOZA MD ([id number]) on 11/27/2018 7:39:59 PM Electronically Signed By: PARISA PENALOZA MD 11/27/181939 PATIENT NAME: CALIN CROWDER Electrocardiogram DATE OF : [birth year] PHYSICIAN: PARISA PENALOZA MD REPORT #: [id number] REPORT IS CONFIDENTIAL AND NOT TO BE RELEASED WITHOUT AUTHORIZATION
--- NOTE | 2018-11-27 20:10 | NUR ---
11/27/182009 Elvira Escobedo 2000: PT ARRIVES TO PACU. VIDEOGAME TESTER GIVES PT EPHEDRINE TO BOOST BP.
--- NOTE | 2018-11-27 20:45 | NUR ---
PATIENT ARRIVED TO FLOOR VIA STRETCHER AROUND 2039. PATIENT ON ROOM AIR AND AWAKE. PATIENT WAS TRANSFERED FROM OR BED TO [facility] BED VIA DRAW SHEET SLIDE WITH ASSISTANCE FROM 3+ HOSPITAL PERSONNEL. VISITOR AT BEDSIDE. ASSESSMENT COMPLETE, REFER TO ASSESSMENT. SCDS IN PLACE. HYPOACTIVE BOWEL TONES. PATIENT DOES NOT APPEAR TO BE IN DISTRESS. NO SIGNS OF TENSING OR GRIMACING PRESENT. 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 PATIENT NON VERBAL, WILL OPEN EYES TO VERBAL STIMULI AND TOUCH. BED ALARM ON FOR SAFETY. IV FLUIDS INFUSING PER MAR ORDER. BED ALARM ON FOR SAFETY. NO MORE NEEDS AT THIS TIME. POST OP VITALS ASSESSED.
--- NOTE | 2018-11-27 21:19 | NUR ---
ROUNDED ON PATIENT FOR MEDICATION ADMINISTRATION. PATIENT ABLE TO TAKE SCHEDULED MEDICATIONS WITH APPLE JUICE PATIENT TOLERATED WELL. HEAD OF BED ELEVATED FOR MEDICATION ADMINISTRATION. BED ALARM ON FOR SAFETY. NO MORE NEEDS AT THIS TIME.
--- NOTE | 2018-11-27 23:22 | NUR ---
rounded on patien for medication administration per mar order. sips of juice provided to patient with head of bed elevated. bed alarm on for safety. no more needs at this time.
--- NOTE | 2018-11-27 23:45 | NUR ---
NEW IV PLACED DUE TO PREVIOUS IV LEAKING, IV REMOVED AND WNL. THIS RN ATTEMPED X2, UNSUCCESSFUL. BRENDA RN ATTEMPED AND PLACED 22GA IV IN LEFT FOREARM. IV PLACED PER POLICY PROTOCOL. PATIENT TOLERATED WELL, THERAPEUTIC COMMUNICATION PROVIDED TO PATIENT THROUGHTOUT. FOURTH HOUR POST- OP VITALS OBTAINED. BED ALARM ON FOR SAFETY. IV ABX RESUMED AFTER NEW IV PLACED. NO MORE NEEDS AT THIS TIME.
--- NOTE | 2018-11-28 00:36 | NUR ---
rounded on patient for medication administration per nov order. bed alarm on for safety. call light within reach.
--- NOTE | 2018-11-28 00:54 | NUR ---
FAX SENT TO E-PHARMACY TO RETIME CEFEPIME IV ABX TO 0600. DOUBLE VERIFED WITH CHARGE NURSE, VENKAT.
--- NOTE | 2018-11-28 02:45 | NUR ---
ASSESSMENT COMPLETE. PATIENT SHOWES NO SIGN OF TENSING OR GRIMACING. IV PATENT. IV FLUIDS INFUSING PER MAR ORDER. BOWEL TONES ASSESSED, REFER TO ASSESSMENT. BED ALARM ON FOR SAFETY. PATIENT REPOSITIONED TO LEFT SIDE BY CNAS. ENSURE DRINK PROVIDED, PATIENT TOOK SIPS OF DRINK. NO MORE NEEDS AT THIS TIME.
--- NOTE | 2018-11-28 03:27 | NUR ---
ROUNDED ON PATIENT RESTING IN BED. THIS RN ASKED PATIENT IF THEY ARE IN PAIN PATIENT LIGHTLY SHAKES HEAD "NO", WHEN ASKED IF PATIENT DOING OK PATIENT STATES "YEAH". THIS RN AND ANOTHER RN REPOSTIONED PATIENT TO LEFT SIDE. ENSURE DRINK OFFERED TO PATIENT, PATIENT TOOK SIPS OF DRINK, TOLERATING WELL. BED ALARM ON FOR SAFETY. NO MORE NEEDS AT THIS TIME.
--- NOTE | 2018-11-28 05:22 | NUR ---
ROUNDED ON PATIENT RESTING IN BED WITH EYES CLOSED, RESPIRATORY RATE IS EVEN AND UNLABORED. MEDICATIONS ADMINISTERED PER NOV ORDER. PATIENT AWOKE TO THIS RN BEING IN ROOM. PROVIDED PATIENT WITH SIPS OF ENSURE, PATIENT TOLERATED WELL, HEAD OF BED ELEVATED. CHAPSTICK APPLIED TO PATIENT LIPS. BED ALARM ON FOR SAFETY. NO MORE NEEDS AT THIS TIME.
--- NOTE | 2018-11-28 05:31 | CONS ---
[facility] [address], [place] [address] Signed DATE OF CONSULTATION: 11/27/2018 CHIEF COMPLAINT: Abdominal distention. HISTORY OF PRESENT ILLNESS: Calin is a 73-year-old mentally disabled gentleman, who lives in an adult care facility. His overall status has declined in the last few years. At this point, he is more or less nonverbal and he is very hard of hearing. It sounds like he had a little diarrhea yesterday, but no solid bowel movement for 4 or 5 days. He has developed some abdominal distention. They brought him to the local emergency room for evaluation. He seems to have some moderate diffuse distention and tympany. He does not seem to respond to pain. However, the white count is elevated at 20,000. 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 The proximal colon is about 8 cm in diameter. There is a peripheral nodule in his left lung and may be in the right medial lung. He is here now admitted to the floor with his sister. He has been given some Zosyn and some IV fluids. PAST MEDICAL HISTORY: Coronary artery disease and cardiac arrest. He is mentally handicapped. He has chronic renal insufficiency. He has had a stroke, osteoarthritis, cholelithiasis, and a chronic small left kidney. PAST SURGICAL HISTORY: Includes CABG. SOCIAL HISTORY: He does not smoke or drink. He is in an adult care facility here in [place], [place]. Dr. Erick Rubio, is his primary care provider. His sister is Deepika Shore at [phone]. He has another sister, who moved to [place] more than 50 years ago and has not interacted with the family since then. Of course, he is single and has no children, at this point, he has been nonambulatory the last few months, he mainly lays in the position. FAMILY HISTORY: None. REVIEW OF SYSTEMS: I reviewed 10 systems with his sister and nothing new to add. ALLERGIES: None. Electronically Signed By: VALERIO PUENTE MD 11/28/18 0531 PATIENT NAME: CALIN CROWDER CONSULTATION DATE OF : 49 REPORT #: [id number] PHYSICIAN: VALERIO PUENTE MD PCP: ERICK RUBIO DO REPORT IS CONFIDENTIAL AND NOT TO BE RELEASED WITHOUT AUTHORIZATION [facility] [address], [place] [address] Signed MEDICATIONS: 1. Atorvastatin. 2. Coumadin. 3. Fluoxetine. 4. Lisinopril. 5. Baclofen. 6. Magnesium oxide. 7. Aspirin. PHYSICAL EXAMINATION: VITAL SIGNS: His blood pressure is 116/66, his heart rate is 91, his respiratory rate is 20, and temperature is 99.0. He is 6 feet 2 inches tall, 81 kg. GENERAL: Calin is a 73-year-old gentleman, who is clearly hard of hearing. He does look, but he is nonverbal. LUNGS: Clear to auscultation. HEART: Regular rate and rhythm. ABDOMEN: Moderately distended and moderately firm with some tympany. He does not seem to grimace or expressed any pain. LABORATORY DATA: His white blood count is 20, bands are 15. BUN 30, creatinine 0.9. Urinalysis unremarkable. INR 2.2. His liver function tests are negative. His albumin is 3.2. His lipase is 13. His EKG is completed, but not on the chart currently. RADIOGRAPHIC STUDIES: CT scan of the abdomen and pelvis is reviewed, probably he has a nodule in the periphery of his left lung and then something near the right medial lung base. He has some cholelithiasis and of course now he has sigmoid volvulus with 8 cm proximal colon. ASSESSMENT AND PLAN: Calin is a 73-year-old mentally and physically disabled gentleman with what appears to be sigmoid volvulus. I met with his sister and we had a long discussion. I have taken care of his sister in the past. She told me that the sister in [place] has not talked to him in probably 50 years. We had a long talk about Calin's quality of life in his current situation, how it has declined. She said she has had multiple surgeries herself and would be very reticent to let him proceed with surgery given his current quality of life. She would be willing to let us perform an endoscopy and see if we could untwist his sigmoid volvulus. She is well aware there is a 40% chance that could recur either immediately, next week, the next day, or a year from now. To repair that surgically is quite a surgery and it would be quite a surgery for Calin, she said she probably would not consent to that. She said her sister in [place] is not available, so she would probably talk to her own children about that in more detail, but in the end she thought it would be [place] to keep him a DNR/DNI and no advance treatments, so we actually brought a POLST form into the room so she could look at that more carefully and she actually Electronically Signed By: VALERIO PUENTE MD 11/28/18 0531 PATIENT NAME: CALIN CROWDER CONSULTATION DATE OF : 49 REPORT #: [id number] PHYSICIAN: VALERIO PUENTE MD PCP: ERICK RUBIO DO REPORT IS CONFIDENTIAL AND NOT TO BE RELEASED WITHOUT AUTHORIZATION [facility] [address] [place], [place] [address] Signed wonder one for herself and she is thinking about having that included on her own chart with her own primary care provider. I told her for his hospital stay, we could certainly keep him DNR/DNI and if things change, they can make changes after his discharge is certainly fine. In the meantime, we are going to contact our OR crew and know they are operating currently, and we have the surgery ahead him and then he will be next so we can do with our colonoscope and we will proceed from there at the direction of Calin and his sister. She has expressed understanding and agrees to above plan. Valerio Puente MD [facility] /[id number] cc: MD Erick Fountain DO Copies: VALERIO PUENTE MD, ARIAN DO ~ Electronically Signed By: VALERIO PUENTE MD 11/28/18 0531 PATIENT NAME: CALIN CROWDER CONSULTATION DATE OF : 49 REPORT #: [id number] PHYSICIAN: VALERIO PUENTE MD PCP: ERICK RUBIO DO REPORT IS CONFIDENTIAL AND NOT TO BE RELEASED WITHOUT AUTHORIZATION
--- NOTE | 2018-11-28 05:31 | OR ---
[facility] [address] [place], [place] [address] Signed DATE OF OPERATION: 11/27/2018 SURGEON: Valerio Puente MD PREOPERATIVE DIAGNOSIS: Sigmoid volvulus. POSTOPERATIVE DIAGNOSES: 1. Sigmoid volvulus. 2. Ischemic left colon. PROCEDURE PERFORMED: Colonoscopy without biopsy (65 cm). ESTIMATED BLOOD LOSS: None. FINDINGS: Calin had the typical bird's beak appearance as we came through the sigmoid colon. Then, above that he had red ischemic left colon. We ran into a wall of liquid particulate stool matter 65 cm. We made several attempts to suction that and proceed further, but this was not successful. Consequently, the scope was slowly withdrawn. We did see multiple air bubbles come through that liquid stool as we withdrew the scope. We could see his abdomen literally decrease in size as we suctioned out the air. The rectum was unremarkable. We saw no diverticulosis. No evidence of any cancer that we could see. Upon retroflexion of scope, he does have some standard internal hemorrhoid columns. After this, the gas had been suctioned out. The colonoscope removed. Calin tolerated his procedure quite well. INDICATIONS: Calin is a 73-year-old gentleman with significant mental handicap. He has been in an adult care facility for many years. Last fall he fell a couple of times and since that time he has been in bed. He is now contracted and in the position. He had a little diarrhea yesterday, but no bowel movement for 4 or 5 days. He had some abdominal distention. The caregivers brought him in the local emergency room for evaluation. His white count was elevated at 20,000. He had moderate distention with moderate diffuse tympany. CT scan showed what looked like sigmoid volvulus. The proximal colon was then dilated up to 8 cm. I have been asked to see him as the general surgeon on-call. Calin is very hard of hearing. He is nonverbal at this point. Fortunately, his sister was with him and we had a long discussion regarding his current situation. She decided Electronically Signed By: VALERIO PUENTE MD 11/28/18 0531 PATIENT NAME: CALIN CROWDER OPERATIVE REPORT DATE OF : 49 REPORT #: [id number] PHYSICIAN: VALERIO PUENTE MD PCP: ERICK RUBIO DO REPORT IS CONFIDENTIAL AND NOT TO BE RELEASED WITHOUT AUTHORIZATION [facility] [address] [place] [address] Signed it will be best if Calin was kept DNR/DNI even during the procedure. We did fill out the appropriate paperwork in that regard. She told me that Calin was not a candidate for surgery, which I would agree. However, she was willing to let us sedate him and do a colonoscopy to see if we could reduce the volvulus. I explained to his sister that there is a 40% chance that wall the volvulus will recur. That could be later today, next week, or year from now. There is also chance for bleeding and perforation as well. She had expressed understanding and wished to proceed. Given Calin's advanced medical and physical conditions, we asked an anesthesia provider to help us with increased monitoring sedation with propofol. His sister had expressed understanding and wished to proceed. PROCEDURE NOTE: Calin was taken into our endoscopy suite and placed in the left lateral. We had to rotate him from the right lateral decubitus position over into the left lateral decubitus position after he was sedated. A digital rectal exam was performed and this was unremarkable. The adult colonoscope was introduced. As I went through the rectosigmoid junction and into the sigmoid colon, we could see the typical bird's beak. We went through that as it is common, it is fairly short. We had opened up widely into this left colon. There was some hyperemic changes in the colon consistent with ischemic colitis. We advanced the scope up to a 65 cm where we encountered the wall of liquid particulate stool matter. We tried our best to suction some of that through our scope, but that was not successful. We saw multiple air bubbles come through that liquid stool. We finally withdrew the scope slowly. No diverticulosis. No evidence of any polyps or cancer. The rectum was unremarkable. Upon retroflexion of the scope, he had standard internal hemorrhoids. After this, the gas had been suctioned out and the colonoscope removed. His abdominal distention was markedly improved. Calin tolerated his procedure quite well. RECOMMENDATIONS: Eric will be returned to his room. We will keep him on IV fluids tonight and he will maintain his DNR/DNI status. MD GRIFFIN Fountain/MONICAL /[id number] Electronically Signed By: VALERIO PUENTE MD 11/28/18 0531 PATIENT NAME: CALIN CROWDER OPERATIVE REPORT DATE OF : 49 REPORT #: [id number] PHYSICIAN: VALERIO PUENTE MD PCP: ERICK RUBIO DO REPORT IS CONFIDENTIAL AND NOT TO BE RELEASED WITHOUT AUTHORIZATION [facility] [address] [place], [place] [address] Signed cc: MD Erick Fountain DO Copies: VALERIO PUENTE MD, ARIAN DO ~ Electronically Signed By: VALERIO PUENTE MD 11/28/18 0531 PATIENT NAME: CALIN CROWDER OPERATIVE REPORT DATE OF : 49 REPORT #: [id number] PHYSICIAN: VALERIO PUENTE MD PCP: ERICK RUBIO DO REPORT IS CONFIDENTIAL AND NOT TO BE RELEASED WITHOUT AUTHORIZATION
--- NOTE | 2018-11-28 05:44 | NUR ---
PATIENT SLEPT THROUGHTOUT THE NIGHT. IV FLUIDS ADMINSTERED PER NOV ORDER. IV ANTIBIOTICS THIS SHIFT. NEW IV PLACED THIS SHIFT. FULL LIQUID DIET TOLERATED. ROOM AIR. TOLERATING ENSURES. ATTENDS IN PLACE. SCDs. NON-VERBAL, PATIENT OCCASIONALLY STATES "YEAH" OR WILL "SHAKE HEAD". PATIENT RETURNED TO FLOOR AFTER PROCEDURE AT 2039. CHAPSTICK APPLIED.
--- NOTE | 2018-11-28 06:25 | NUR ---
ASSESSMENT COMPLETE. PATIENT DOESN'T APPEAR TO BE IN DISTRESS. MEDICATIONS ADMINISTERED PER NOV ORDER. IV FLUIDS DECREASED PER NOV ORDER. BOWEL TONES ASSESS, REFER TO NOV. BED ALARM ON FOR SAFETY. NO MORE NEEDS AT THIS TIME.
--- NOTE | 2018-11-28 06:45 | NUR ---
DR. PUENTE AWARE OF ADJUSTING IV ABX TIMES.
--- NOTE | 2018-11-28 07:00 | NUR ---
BEDSIDE HANDOFF REPORT RECEIVED FROM DRIVER UTILITY WORKER RN. PT RESTING QUIETLY IN BED. BED ALARM IN PLACE.
--- NOTE | 2018-11-28 09:18 | NUR ---
PATIENT IN BED RESTING WITH EYES CLOSED. PATIENT DID WELL EATING BREAKFAST. FRESH WATER GIVEN. DEPENDS CHANGED. CALL LIGHT IN REACH. NO FURTHER NEEDS AT THIS TIME.
--- NOTE | 2018-11-28 09:35 | NUR ---
PT RESTING IN BED. PT NONVERBAL, MRDD. PT ON ROOM AIR, LUNG SOUNDS CLEAR WITH DIMINISHED BASES. PT SHAKES HEAD "NO" WHEN ASKED IF HE IS HAVING PAIN. BOWEL TONES ACTIVE, TOLERATING REGULAR DIET. EXTREMITIES WARM, PULSES [place], WITHOUT EDEMA. IV FLUIDS INFUSING DRLR AT 75 ML/HR. PT BED BOUND, Q2H TURNS.
--- NOTE | 2018-11-28 11:15 | NUR ---
IV FLAGYL INFUSING TO LEFT ARM, IV SITE ASSESS, PATENT. SISTER AT BEDSIDE, ASSISTED TO ORDER CAREGIVER TRAY.
--- NOTE | 2018-11-28 12:20 | NUR ---
CARE CONFERENCE PRESENT IN ROOM--PT, HIS SISTER ADENIKE, AND ULISES FROM [facility] AND MYSELF. STARTED THE DISCUSSION WITH THE CONCERNS THAT DR PUENTE HAD VOICED THIS AM, REGARDING WHETHER THE PLACE THE PT IS STAYING IF THERE IS ENOUGH HELP TO CARE FOR HIM HE NEEDS IT. ULISES THEN IDENTIFIED HERSELF ULISES CARBIDER OF [facility] AND THAT SHE HAD ENOUGH STAFF TO CARE FOR HIM. 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 THEY DENY FURTHER QUESTIONS AT THIS POINT. I TOLD THEM IF THEY HAD ANY THEY COULD ASK THE STAFF TO GET A HOLD OF CM OR THEY COULD CALL THE OFFICE PHONE NUMBER WHICH WAS GIVEN TO BOTH OF THEM.
--- NOTE | 2018-11-28 12:32 | NUR ---
IV CEFEPIME INFUSING. PT RESTING IN BED. CAREGIVER AND SISTER AT BEDSIDE. PT LUNCH TRAY IN FRONT OF PT, NOT INTERESTED IN EATING AT THIS TIME. SISTER DENIES OTHER NEEDS AT THIS TIME.
--- NOTE | 2018-11-28 13:45 | NUR ---
PT INCONTINENT OF STOOL, PERICARE COMPLETED, LINENS CHANGED. SISTER AT BEDSIDE. PT RESTING ON RIGHT SIDE.
--- NOTE | 2018-11-28 14:22 | NUR ---
PT [id number] IN BED WITH 2 CG PRESENT. THEY STATED HE ATE SOME BREAK- FAST AND THEY SEEMED PLEASED. BOTH VERY ATTENTIVE, WILL FOLLOW NEEDED
--- NOTE | 2018-11-28 14:23 | NUR ---
PATIENT IN BED RESTING WITH EYES CLOSED. CAREGIVER IN ROOM. FRESH WATER GIVEN. CALL LIGHT IN REACH. NO FURTHER NEEDS AT THIS TIME.
--- NOTE | 2018-11-28 16:22 | NUR ---
PT TURNED TO LEFT SIDE. BED ALARM IN PLACE. SISTER AT BEDSIDE, DENIES NEEDS.
--- NOTE | 2018-11-28 17:00 | NUR ---
PT TO OR WITH DAYSURGERY RN.
--- NOTE | 2018-11-28 18:01 | NUR ---
PT ON ROOM AIR, LUNG SOUNDS CLEAR. PT TOLERATED REGULAR DIET, BOWEL TONES ACTIVE, MEDIUM LOOSE BM TODAY. D5LR AT 75 ML/HR, IV FLAGYL AND CEFEPIME. PT NONVERBAL. Q2H TURNS. INCONTINENT OF URINE, QS. POSSIBLE DC TOMORROW WITH CAREGIVER.
--- NOTE | 2018-11-28 18:02 | NUR ---
PATIENT SITTING UP IN BED WATCHING TV. DEPENDS CHAGNED. LISSETTE CARE DONE. FRESH WATER GIVEN. CALL LIGHT IN REACH. NO FURTHER NEEDS AT THIS TIME.
--- NOTE | 2018-11-28 19:12 | NUR ---
RECIEVED BEDSIDE REPORT FROM DEMETRICE BRUNER. PATIENT RESTING IN BED WITH EYES CLOSED, RESPIRATORY RATE IS EVEN AND UNLABORED. WHITE BOARD UPDATED. BED ALARM ON FOR SAFETY. SCD IN PLACE.
--- NOTE | 2018-11-28 22:02 | NUR ---
ASSESSMENT COMPLETE, REFER TO ASSESSMENT. PATIENT STATES "NO" WHEN ASKED IF PATIENT IS EXPERIENCING PAIN. PATIENT DOES NOT APPEAR TO BE ANY TYPE OF DISTRESS. PATIENT SHOW NO SIGN OF TENSING OR GRIMACING OUTSIDE OF PATIENT'S NORMAL POSTURE. PATIENT ABLE TO HOLD WATER CUP ON HIS OWN AND TAKE SIPS OF WATER. MEDICATIONS ADMINISTERED PER NOV ORDER. BED ALARM ON FOR SAFETY. IV FLUIDS INFUSING PER NOV ORDER. NO MORE NEEDS AT THIS TIME.
--- NOTE | 2018-11-28 22:54 | NUR ---
rounded on patient to administer medication per mar order. bed alarm on for safety. possesions at bedside. no more needs at this time.
--- NOTE | 2018-11-28 23:46 | NUR ---
rounded on patient for medication adminstration per nov order. patient resting bed with eyes closed. respiratory rate is even and unlabored. bed alarm on for safety.
--- NOTE | 2018-11-29 00:01 | NUR ---
CHANGED BED LINEN. CLEANED PATIENT FROM BOWEL MOVEMENT AND URINE. BED SIDE TABLE AND CALL LIGHT WITHIN REACH.
--- NOTE | 2018-11-29 03:38 | NUR ---
rounded on patient resting in bed with eyes closed, respiratory rate is even and unlabored. new bag of iv fluids infusing per nov order. bed alarm on for safety.
--- NOTE | 2018-11-29 04:38 | NUR ---
rounded on patient resting in bed with eyes closed. respiratory rate is even and unlabored. medications administered per nov order. bed alarm on for safety.
--- NOTE | 2018-11-29 05:54 | NUR ---
ASSESSMENT COMPLETE, REFER TO ASSESSMENT. PATIENT SHOOK HEAD "NO", WHEN ASKED IF PATIENT HAS ANY PAIN. CHAP STICK APPLIED. IV FLUIDS INFUSING PER MAR ORDER. MEDICATION ADMINISTERED PER MAR ORDER. BED ALARM ON FOR SAFETY. NO SIGN OF DISTRESS. SCDS IN PLACE. NO MORE NEEDS AT THIS TIME. SIPS OF WATER PROVIDED TO PATIENT.
--- NOTE | 2018-11-29 07:00 | NUR ---
rate of iv fluids decreased per mar order. patient report provided to omar eduardo.
--- NOTE | 2018-11-29 07:05 | NUR ---
BEDSIDE HANDOFF REPORT RECEIVED FROM CRISIS NURSE RN. PT RESTING IN BED. IV FLUIDS INFUSING D5LR AT 50 ML/HR, IV CEFEPIME INFUSING.
--- NOTE | 2018-11-29 07:55 | NUR ---
PT RESTING IN BED. PT ON ROOM AIR, LUNG SOUNDS CLEAR. BOWEL TONES ACTIVE, TOLERATING REGULAR DIET, ABD SOFT. CMS INATCT, WITHOUT EDEMA. IV FLUIDS INFUSING, NA PHOS INFUSING. PT SAT UP IN BED FOR BREAKFAST. CAREGIVER ULISES CALLED AND UPDATED ON PLAN FOR DC, SISTER ADENIKE CALLED MESSAGE LEFT.
--- NOTE | 2018-11-29 08:44 | NUR ---
PATIENT SITTING UP IN BED EATING BREAKFAST. CALL LIGHT IN REACH. NO FURTHER NEEDS AT THIS TIME.
--- NOTE | 2018-11-29 09:38 | NUR ---
PATIENT IN BED WATCHING TV. DEPENDS CHANGED. LISSETTE CARE DONE. FRESH WATER GIVEN. CALL LIGHT IN REACH. NO FURTHER NEEDS AT THIS TIME.
--- NOTE | 2018-11-29 12:30 | NUR ---
PT SAT UP IN BED FOR LUNCH, EATING INDEPENDENTLY. DISCHARGE INSTRUCTIONS COMPLETED WITH CAREGIVER ULISES.
--- NOTE | 2018-11-29 13:22 | NUR ---
DISCUSSED COUMADIN AND DISCHARGE WITH PHARMACIST BEKAH, ORDER TO TAKE 5 MG COUMADIN TODAY THEN TO RESUME NORMAL HOME SCHEDULE. WILL COMMUNICATE WITH CAREGIVER ULISES AT DISCHARGE.
--- NOTE | 2018-11-29 13:46 | NUR ---
PATIENT IN BED RESTING WITH EYES CLOSED. CALL LIGHT IN REACH. NO FURTHER NEEDS AT THIS TIME.
== END 2018-11-29 15:00 | disposition home or self-care (01) | DRG 389 ==
LOC: ED 09:52 → MS 09:53
PROVIDERS: ADMIT Colon & Rectal Surgery
PROC: 0DJD8ZZ Inspection of Lower Intestinal Tract, Via Natural or Artificial Opening Endoscopic (ICD-10-PCS; principal; 2018-11-27 19:37)
DX: K56.2 Volvulus (principal); K55.9 Vascular disorder of intestine, unspecified; H91.90 Unspecified hearing loss, unspecified ear; E83.39 Other disorders of phosphorus metabolism; N18.9 Chronic kidney disease, unspecified; I25.10 Atherosclerotic heart disease of native coronary artery without angina pectoris; M19.90 Unspecified osteoarthritis, unspecified site; Z66 Do not resuscitate; Z79.01 Long term (current) use of anticoagulants; Z95.1 Presence of aortocoronary bypass graft; Z86.74 Personal history of sudden cardiac arrest; Z86.73 Personal history of transient ischemic attack (TIA), and cerebral infarction without residual deficits; Z79.82 Long term (current) use of aspirin; Z79.899 Other long term (current) drug therapy
CPT/HCPCS: 36415; 74177; 80048; 80053; 81001; 83690; 83735; 84100; 84134; 85025; 85610; 93005; 93010; 96361; 97110; 99285-25; C9113; J0692; J1170; J2405; J2543; J2704; J7030; J7060; J7120; Q9967

== ENCOUNTER 2019-09-13 09:41 | Emergency (ER) | payer MEDICARE, OTHER ==
[~2019-09-13] VITALS: Ht 188 cm; Wt 80.7 kg
--- OUTSIDE RECORDS SUMMARY | ~2019-09-13 | XMS | Encounter Summary ---
Demographics + + + | Address | [address] | | | [place] [address] | + + + | Home Phone | | + + + | Preferred Language | Unknown | + + + | Marital Status | Single | + + + | Moravian Affiliation | Unknown | + + + | Race | Unknown | + + + | Ethnic Group | Unknown | + + + Author + + + | Author | [facility] | | | and [place] | + + + | Organization | [facility] | | | and [place] | + + + | Address | Unknown | + + + | Phone | Unavailable | + + + Support + + +---------+ + | Name | Relationship | Address | Phone | + + +---------+ + | Afshan Jenniferjatinder | ECON | Unknown | | + + +---------+ + Care Team Providers + +------+ + | Care Cad Detailer Name | Role | Phone | + +------+ + | Erick Bernstein DO | PCP | | + +------+ + Encounter Details +--------+ + + + + | Date | Type | Department | Care Team | Description | +--------+ + + + + | 01/03/ | Orders Only | [facility] | [place] [facility], | | | 2019 | | [place] | [address] | | | | [address] | [place] | | | | | [place], [place] | [address] | | | | | [address] | | | | | | [phone] | | | +--------+ + + + + Social History + +-------+ +--------+------+ | Tobacco Use | Types | Packs/Day | Years | Date | | | | | Used | | + +-------+ +--------+------+ | Never Smoker | | | | | + +-------+ +--------+------+ + + + | Sex Assigned at | Date Recorded | | | | + + + | Not on file | | + + + + + + + | Job Start Date | Occupation | Industry | + + + + | Not on file | Not on file | Not on file | + + + + + + + + | Travel History | Travel Start | Travel End | + + + + + + | No recent travel history available. | + + documented as of this encounter Plan of Treatment +--------+---------+ + + + | Date | Type | Specialty | Care Team | Description | +--------+---------+ + + + | 02/05/ | Office | Cardiology | [facility], | | | 2019 | Visit | | MD Octavio SIEGEL | | | | | | [place] | | | | | | [id number] | | | | | | | | +--------+---------+ + + + documented as of this encounter Visit Diagnoses Not on filedocumented in this encounter"
--- OUTSIDE RECORDS SUMMARY | ~2019-09-13 | XMS | Encounter Summary ---
Demographics + + + | Address | [address] | | | [place] [address] | + + + | Home Phone | | + + + | Preferred Language | Unknown | + + + | Marital Status | Single | + + + | Shinto Affiliation | Unknown | + + + | Race | Unknown | + + + | Ethnic Group | Unknown | + + + Author + + + | Author | [facility] | | | and [place] | + + + | Organization | [facility] | | | and [place] | + + + | Address | Unknown | + + + | Phone | Unavailable | + + + Support + + +---------+ + | Name | Relationship | Address | Phone | + + +---------+ + | Afshan Rahman | ECON | Unknown | | + + +---------+ + Care Team Providers + +------+ + | Care Service Loss Control Consultant Name | Role | Phone | + +------+ + | Erick Bernstein DO | PCP | | + +------+ + Reason for Visit + + + | Reason | Comments | + + + | Follow-up | | + + + Encounter Details +--------+---------+ + + + | Date | Type | Department | Care Team | Description | +--------+---------+ + + + | 07/18/ | Office | [facility] | Warren Gregorio, | Essential | | 2019 | Visit | CARDIOLOGY [place] | [address] | hypertension, benign | | | | [address] | [place], [place] | (Primary Dx); | | | | [address] | [address] | Ischemic | | | | [place], [place] | | cardiomyopathy; CKD | | | | [address] | | (chronic kidney | | | | [phone] | | disease), stage III; | | | | | | Mental retardation | +--------+---------+ + + + Social History + +-------+ +--------+------+ | Tobacco Use | Types | Packs/Day | Years | Date | | | | | Used | | + +-------+ +--------+------+ | Never Smoker | | | | | + +-------+ +--------+------+ + +---+---+---+ | Smokeless Tobacco: | | | | | Never Used | | | | + +---+---+---+ + + +---------+ + | Alcohol Use | Drinks/Week | oz/Week | Comments | + + +---------+ + | Never | | | | + + +---------+ + + + + + | Alcohol Habits | Answer | Date Recorded | + + + + | How often do you have a drink containing | Never | 07/18/2019 | | alcohol? | | | + + + + | How many drinks containing alcohol do you | Not asked | | | have on a typical day when you are | | | | drinking? | | | + + + + | How often do you have six or more drinks on | Not asked | | | one occasion? | | | + + + + + + + | Sex Assigned at [...] + + documented as of this encounter Last Filed Vital Signs + + + + + | Vital Sign | Reading | Time Taken | Comments | + + + + + | Blood Pressure | 82/52 | 07/18/2019 11:03 AM | | | | | PDT | | + + + + + | Pulse | 61 | 07/18/2019 11:03 AM | | | | | PDT | | + + + + + | Temperature | - | - | | + + + + + | Respiratory Rate | - | - | | + + + + + | Oxygen Saturation | 100% | 07/18/2019 11:03 AM | | | | | PDT | | + + + + + | Inhaled Oxygen | - | - | | | Concentration | | | | + + + + + | Weight | 74.8 kg (165 lb) | 07/18/2019 11:03 AM | | | | | PDT | | + + + + + | Height | 185.4 cm (6' 1") | 07/18/2019 11:03 AM | | | | | PDT | | + + + + + | Body Mass Index | 21.77 | 07/18/2019 11:03 AM | | | | | PDT | | + + + + + documented in this encounter Progress Notes Warren Gregorio MD - 07/18/2019 11:00 AM PDTFormatting of this note might be different f rom the original. Date of visit: 07/18/2019 Primary Care Physician: Erick Bernstein DO CHIEF COMPLAINT: Chief Complaint Patient presents with Follow-up HISTORY OF PRESENT ILLNESS: Josef is 73 y.o. here for follow-up visit. Mentally impaired history was taken from the caregiver. Continues to be stable from cardiac stand of point. Had another hospitalization in April 2019 secondary to sigmoid volvulus had to have surgic al intervention. Recovered well and was discharged home in less than a week. No cardiac ev ents were reported. Continues to be on been tolerating lisinopril 2.5 mg po q day. Follows up with Coumadin clinic. Today has been unable to stand to measure his weight. Currently wheelchair-bound for at least a year. He has been unable to stand up on his lower extremity being unable to be extended. Patient history briefly. Complex past medical history. Patient cannot provide any history secondary to mental impair ment. Previous massive MO and CABG X 3 in [facility] in 2012, post op Cardiac arrest secondary to tampo nade. Temporary dialysis with recurrent kidney function. Patient las evaluation was placed on Metoprolol and Lisinopril Has one brief syncopal episo de, at [facility] was noted to be bradycardic. Metoprolol was stopped and patient is tolerating Lisinopril well. Patient discharge medications from [facility] included metoprolol, lisinopril, simvastatin, and a miodarone. Patient noted to be only on aspirin and warfarin. According to caregiver patient spends most of his time sitting, and watching TV. Past medical history, SH, FH, and medications were reviewed in the chart. Medications: Outpatient Encounter Medications as of 07/18/2019 Medication Sig Dispense Refill acetaminophen (PAIN & FEVER) 325 mg tablet Take 650 mg by mouth every 6 (six) hours as needed. aspirin 81 MG tablet Take 81 mg by mouth daily. atorvaSTATin (LIPITOR) 20 mg tablet take 1 tablet by mouth every evening 90 tablet 2 FLUoxetine (PROZAC) 40 MG capsule Take 40 mg by mouth nightly. lisinopril (PRINIVIL, ZESTRIL) 5 mg tablet Take 0.5 tablets by mouth daily. 90 tablet 2 Magnesium 500 MG tablet Take 500 mg by mouth Daily (with dinner). warfarin (COUMADIN) 5 mg tablet Take 5 mg by mouth daily. (Patient taking differently : Take 5 mg by mouth Daily. 5mg on Tuesday, 2.5mg all other days.) No facility-administered encounter medications on file as of 07/18/2019. Allergies No Known Allergies REVIEW OF SYSTEMS: Limited mental status. Patient denies any symptoms. PHYSICAL EXAM Vital Signs: BP (!) 82/52 | Pulse 61 | Ht 1.854 m (6' 1") | Wt 74.8 kg (165 lb) | SpO2 100% | BMI 2 1.77 kg/m GENERAL APPEARANCE: Alert follows command, no distress, appears stated age. HEENT: Extraocular movements were intact. No jaundice. Pupiles round and reactive. NECK: No JVD, lymphadenopathy. Carotid upstrokes normal. No carotid bruit heard. CARDIAC: Regular rhythm and rate. There is normal S1 and S2. No galop. No murmur. CHEST: Normal bilateral symmetrical chest excursion.ackles or wheezing. No evidence of dull ness. ABDOMEN: Soft.No tenderness or guarding. No palpable organs. Active bowel sounds. EXTREMITIES: No lower extremities edema, cyanosis or clubbing. NEURO: Follows commands. Wheelchair and bedbound. SKIN: Warm and dry. No rash. Psych: Normal affect and mood. DATA Lab Results Component Value Date/Time NA 136 11/15/2017 11:25 K 3.9 11/15/2017 11:25 CO2 29 11/15/2017 11:25 BUN 22 11/15/2017 11:25 CALCIUM 8.9 11/15/2017 11:25 MG 2.2 11/15/2017 11:25 No results found for: WBC, HGB, HCT, MCV, LABPLAT Lab Results Component Value Date ALT 32 11/15/2017 CHOL 81 11/15/2017 TRIG 89 11/15/2017 HDL 35 (A) 11/15/2017 LDLEX 28 11/15/2017 GLUF 115 (A) 11/15/2017 EK02/08/2018 Ordered and reviewed by my self showed normal sinus rhythm with poor R wave progression ant eroseptal old infarct. Diffuse ST depression with T-wave inversion in the anterolateral lead s. 10/27/2016 Ordered and reviewed by myself showed normal sinus rhythm with poor R-wave progression danna cating anteroseptal infarction. Diffuse ST depression in anterolateral leads. Last Echo: 08/10/2016 Normal LV size, apical segment akinesis, chronic apical LV thrombus. Moderately impaired LV function EF 35-40%. Last cath: 09/30/2012 Severe triple-vessel coronary artery disease. LAD CLAIM ANALYST at mid segment with left to left carey aterals. Left circumflex codominant third OM branch has a 90% proximal stenosis, inferior branch of third OM has a 90% proximal stenosis. RCA codominant vessel with a proximal 70% stenosis and distal 90% stenosis. CABG report: November 2012: DE LA ROSA to LAD, saphenous vein graft to OM, saphenous vein graft to PDA. ASSESSMENT: Patient is 73 y.o. with 1. Cardiac arrest in 2013 status post CABG 3. No anginal symptoms. 2. 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 Warfarin as monitored by Coumadin clinic. 3. 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 4. Ischemic cardiomyopathy latest ejection fraction 35-40%. No signs of congestive heart f ailure or volume overload. 5. Mentally impaired with limited functionality. 6. Chronic kidney disease stage III. 7. Dyslipidemia with favorable lipid panel. 8. Immobility and debility. Recommendation: Patient continues to be asymptomatic tolerated surgical abdominal intervention without card iac events. Tolerating lisinopril 2.5 mg po q day. 1. Continue with lisinopril 2.5 mg daily, no BB secondary to syncope and bradycardia. 2. Continue with anticoagulation. 3. Continue with aspirin. 4. Continue with atorvastatin. 5. Unfortunately continues to be wheelchair and bedbound. 6. Follow-up in 6 months or earlier if needed. *This report has been prepared using a voice recognition system. The report was reviewed fo r accuracy, however, sound-alike word errors, addition and/or deletions may occur. If there is any question about this report please contact me. Warren Gregorio MD, MPH documented in this encounter Plan of Treatment +--------+---------+ + + + | Date | Type | Specialty | Care Team | Description | +--------+---------+ + + + | 02/05/ | Office | Cardiology | Warren Gregorio, | | | 2019 | Visit | | MD [address] | | | | | | [place] | | | | | | [id number] | | | | | | | | +--------+---------+ + + + documented as of this encounter Visit Diagnoses + + | Diagnosis | + + | Essential hypertension, benign - Primary | + + | Ischemic cardiomyopathy Other specified forms of chronic ischemic heart disease | + + | CKD (chronic kidney disease), stage III | + + | Mental retardation Unspecified intellectual disabilities | + + documented in this encounter
--- OUTSIDE RECORDS SUMMARY | ~2019-09-13 | XMS | Encounter Summary ---
Demographics + + + | Address | [address] | | | [place] [address] | + + + | Home Phone | | + + + | Preferred Language | Unknown | + + + | Marital Status | Single | + + + | Voodoo Affiliation | Unknown | + + + | Race | Unknown | + + + | Ethnic Group | Unknown | + + + Author + + + | Author | [facility] | | | and [place] | + + + | Organization | [facility] | | | and [...] Team Providers + +------+ + | Care Workforce Development Program Director Name | Role | Phone | + +------+ + | Erick Bernstein DO | PCP | | + +------+ + Encounter Details +--------+ + + + + | Date | Type | Department | Care Team | Description | +--------+ + + + + | 10/27/ | Orders Only | [facility] | Warren Crawley, | | | 2016 | | [place] | [address] | | | | | [address] | [place] | | | | | [place], [place] | [address] | | | | | [address] | | | | | | [phone] | | | +--------+ + + + + Social History + +-------+ +--------+------+ | Tobacco Use | Types | Packs/Day | Years | Date | | | | | Used | | + +-------+ +--------+------+ | Never Assessed | | | | | + +-------+ [...] Cardiology | Warren Crawley, | | | 2020 | Visit | | MD [address] | | | | | | [place] | | | | | | [address] | | | | | | | | +--------+---------+ + + + documented as of this encounter Procedures + +--------+ + + + | Procedure Name | Priori | Date/Time | Associated Diagnosis | Comments | | | ty | | | | + +--------+ + + + | ECG 12 LEAD | Routin | 10/27/2016 | | Results for this | | | e | 3:41 PM | | procedure are in the | | | | PST | | results section. | + +--------+ + + + documented in this encounter Results ECG 12 lead (10/27/2016 3:41 PM PST) + + + + + + | Component | Value | Ref Range | Performed | Pathologist | | | | | At | Signature | + + + + + + | DIAGNOSIS: | Sinus | | EXTERNAL | | | | bradycardiaAnterolateral | | LAB | | | | infarct (cited on or | | | | | | before | | | | | | 27-OCT-2016)Abnormal | | | | | | ECGWhen compared with | | | | | | ECG of 27-OCT-2016 | | | | | | 15:39,QRS axis Shifted | | | | | | leftPlease refer to | | | | | | Providers office visit | | | | | | note for Providers | | | | | | Interpretation.Confirmed | | | | | | by [facility] Read Only, | | | | | | [facility] ([id number]), | | | | | | deputy editor in chief Deniz Rios | | | | | | ([id number]) on 12/03/2016 | | | | | | 9:44:38 AM | | | | + + + + + + + + | Specimen | + + | | + + + + + | Narrative | Performed At | + + + | Unable to upload EKG from 10/27/16 new Order to get the EKG | EXTERNAL LAB | | uploaded. Historically converted procedure from [facility] Epic | | | environment | | + + + + +---------+ + + | Performing | Address | City/State/Zipcode | Phone Number | | Organization | | | | + +---------+ + + | EXTERNAL LAB | | | | + +---------+ + + documented in this encounter Visit Diagnoses Not on filedocumented in this encounter"
--- OUTSIDE RECORDS SUMMARY | ~2019-09-13 | XMS | Encounter Summary ---
Demographics + + + | Address | [address] | | | [place] [address] | + + + | Home Phone | | + + + | Preferred Language | Unknown | + + + | Marital Status | Single | + + + | Yazidi Affiliation | CHR | + + + | Race | White | + + + | Ethnic Group | Not or | + + + Author + + + | Author | [facility] | + + + | Organization | [facility] | + + + | Address | Unknown | + + + | Phone | Unavailable | + + + Support + + + + + | Name | Relationship | Address | Phone | + + + + + | Joanne Zhang | [place] | [address] | | | | | [place] | | | | | [address] | | + + + + + | Linh Pate | ECON | Unknown | | + + + + + Care Team Providers + +------+ + | Care Scrap Crusher Name | Role | Phone | + +------+ + | Erick Bernstein DO | PCP | | + +------+ + Reason for Referral Diagnostic Testing (Routine) +--------+--------+ + + + + | Status | Reason | Specialty | Diagnoses / | Referred By | Referred To | | | | | Procedures | Contact | Contact | +--------+--------+ + + + + | Closed | | Cardiology | Diagnoses | Iasiah, | Car Echo | | | | | Arrhythmia | Michael Agudelo MD | [address] | | | | | CAD | [address] | | | | | (coronary | [address] | Mailcode: | | | | | artery | [place], [place] | [address] | | | | | disease) LV | [address] | [facility] | | | | | (left | Phone: | Building | | | | | ventricular) | [phone] | [place], [place] | | | | | mural | Fax: | [address] | | | | | thrombus | [phone] | Phone: | | | | | Procedures | | [phone] | | | | | TRANSTHORACI | | | | | | | C | | | | | | | ECHOCARDIOGR | | | | | | | AM, ADULT | | | +--------+--------+ + + + + Encounter Details +--------+ + + + + | Date | Type | Department | Care Team | Description | +--------+ + + + + | 11/14/ | Retarder Operator | Cardiology [facility] at | Michael Colon, | Arrhythmia (Primary | | 2012 | | [facility] [address] | MD [address] | Dx); CAD (coronary | | | | Ave Mailcode: CH9A | [place], [place] | artery disease); LV | | | | [facility] | [address] | (left ventricular) | | | | and Healing, | [phone] | mural thrombus | | | | Building | | | | | | Floor [place], [place] | | | | | | [address] | | | | | | [phone] | | | +--------+ + + + [...] Comments | + + +---------+ + | No [...] as of this encounter Plan of Treatment Not on filedocumented as of this encounter Procedures + +--------+ + + + | Procedure Name | Priori | Date/Time | Associated Diagnosis | Comments | | | ty | | | | + +--------+ + + + | EJECTION FRACTION | Routin | 11/14/2012 | | Results for this | | | e | 12:26 PM | | procedure are in the | | | | PST | | results section. | + +--------+ + + + | TRANSTHORACIC | Routin | 11/14/2012 | Arrhythmia CAD | Results for this | | ECHOCARDIOGRAM, | e | 12:00 AM | (coronary artery | procedure are in the | | ADULT | | PST | disease) LV (left | results section. | | | | | ventricular) mural | | | | | | thrombus | | + +--------+ + + + documented in this encounter Results EJECTION FRACTION (11/14/2012 12:26 PM PST) + + + + + + | Component | Value | Ref Range | Performed | Pathologist | | | | | At | Signature | + + + + + + | EJECTION | 25 - 30%Comment: EF | | [facility] | | | FRACTION | Recorded from | | OF | | | | Transthoracic | | CARDIOLOGY | | | | Echocardiogram | | | | + + + + + + + + | Specimen | + + | | + + + + + + + | Performing | Address | City/State/Zipcode | Phone Number | | Organization | | | | + + + + + | [facility] | [address] | [place], [place] | | | CARDIOLOGY | [address] | [address] | | + + + + + TRANSTHORACIC ECHOCARDIOGRAM, ADULT (11/14/2012 12:00 AM PST) + + + | Narrative | Performed At | + + + | | | | | | + + + + + | Procedure Note | + + | Diana Farley - 11/14/2012 3:45 PM PST | + + documented in this encounter Visit Diagnoses + + | Diagnosis | + + | Arrhythmia - Primary Cardiac dysrhythmia, unspecified | + + | CAD (coronary artery disease) Coronary atherosclerosis of unspecified type of vessel, | | [place] or graft | + + | LV (left ventricular) mural thrombus Acute myocardial infarction, unspecified site, | | episode of care unspecified | + + documented in this encounter"
--- OUTSIDE RECORDS SUMMARY | ~2019-09-13 | XMS | Encounter Summary ---
Demographics + + + | Address | [address] | | | [place] [address] | + + + | Home Phone | | + + + | Preferred Language | Unknown | + + + | Marital Status | Single | + + + | Buddhist Affiliation | CHR | + + + | Race | White | + + + | Ethnic Group | Not or | + + + Author + + + | Author | [facility] | + + + | Organization | [facility] | + + + | Address | Unknown | + + + | Phone | Unavailable | + + + Support + + + + + | Name | Relationship | Address | Phone | + + + + + | Joanne Zhang | [place] | [address] | | | | | [place] | | | | | [address] | | + + + + + | Linh Pate | ECON | Unknown | | + + + + + Care Team Providers + +------+ + | Care Metal Storage Worker Name | Role | Phone | + +------+ + | Erick Bernstein DO | PCP | | + +------+ + Encounter Details +--------+ + + + + | Date | Type | Department | Care Team | Description | +--------+ + + + + | 12/04/ | Abstract | Cardiology [facility] at | Kyle Ambrose MD | | | 2012 | | [facility] [address] | [address] | | | | | [place] Mailcode: [address] | [facility] [address] | | | | | [facility] | [place] [address] | | | | | and [place], | [phone] | | | | | Building | | | | | | Floor [place], [place] | | | | | | [address] | | | | | | [phone] | | | +--------+ + + + [...] Not on filedocumented as of this encounter Visit Diagnoses Not on filedocumented in this encounter"
--- OUTSIDE RECORDS SUMMARY | ~2019-09-13 | XMS | Encounter Summary ---
Demographics + + + | Address | [address] | | | [place] [address] | + + + | Home Phone | | + + + | Preferred Language | Unknown | + + + | Marital Status | Single | + + + | Latter Day Affiliation | Unknown | + + + | Race | Unknown | + + + | Ethnic Group | Unknown | + + + Author + + + | Author | [facility] | | | and [place] | + + + | Organization | [facility] | | | and [place] | + + + | Address | Unknown | + + + | Phone | Unavailable | + + + Support + + +---------+ + | Name | Relationship | Address | Phone | + + +---------+ + | Afshan Jenniferlon | ECON | Unknown | | + + +---------+ + Care Team Providers + +------+ + | Care Sweeper Driver Name | Role | Phone | + +------+ + PCP | Unavailable | + +------+ + Encounter Details +--------+ + + + + | Date | Type | Department | Care Team | Description | +--------+ + + + + | 11/06/ | Hospital | [facility] | Conversion | Diagnosis unknown | | 2016 | Encounter | CONVERSION [address] | Transaction, | | | | | [address] | Provider Unknown | | | | | [place] | | | | | | [address] | | | | | | [phone] | | | +--------+ + + + [...] + + documented as of this encounter Medications at Time of Discharge + + + +---------+ + + | Medication | Sig | Dispensed | Refills | Start | End Date | | | | | | Date | | + + + +---------+ + + | acetaminophen | Take 650 mg by mouth | | 0 | 10/16/19 | | | (PAIN & FEVER) 325 | every 6 (six) hours | | | 13 | | | mg tablet | as needed. | | | | | + + + +---------+ + + | warfarin | Take 5 mg by mouth | | 0 | 10/16/19 | | | (COUMADIN) 5 mg | daily. | | | 13 | | | tablet | | | | | | + + + +---------+ + + documented as of this encounter Plan of Treatment +--------+---------+ + + + | Date | Type | Specialty | Care Team | Description | +--------+---------+ + + + | 02/05/ | Office | Cardiology | Warren Crawley, | | | 2019 | Visit | | MD [address]EL | | | | | | [place] | | | | | | [address] | | | | | | | | +--------+---------+ + + + documented as of this encounter Procedures + +--------+ + + + | Procedure Name | Priori | Date/Time | Associated Diagnosis | Comments | | | ty | | | | + +--------+ + + + | ECHO COMPLETE | Routin | 10/12/2014 | | Results for this | | | e | 3:26 PM | | procedure are in the | | | | PST | | results section. | + +--------+ + + + documented in this encounter Results ECHO Complete (10/12/2014 3:26 PM PST) + + | Specimen | + + | | + + + + + | Narrative | Performed At | + + + | This is a non-reportable procedure without a radiologist report and | | | is used for image storage only | | + + + + + | Procedure Note | + + | Zaki Luis - 05/10/2019 5:35 PM PDT This is a non-reportable procedure | | without a radiologist report and isused for image storage only | + + documented in this encounter Visit Diagnoses + + | Diagnosis | + + | Diagnosis unknown Other unknown and unspecified cause of morbidity or mortality | + + documented in this encounter"
--- OUTSIDE RECORDS SUMMARY | ~2019-09-13 | XMS | Encounter Summary ---
Demographics + + + | Address | [address] | | | [place] [address] | + + + | Home Phone | | + + + | Preferred Language | Unknown | + + + | Marital Status | Single | + + + | Sabianism Affiliation | Unknown | + + + | Race | Unknown | + + + | Ethnic Group | Unknown | + + + Author + + + | Author | [facility] | | | and [place] | + + + | Organization | [facility] | | | and [...] Team Providers + +------+ + | Care Battery Engineer Name | Role | Phone | + +------+ + | Erick Bernstein DO | PCP | | + +------+ + Encounter Details +--------+ + + + + | Date | Type | Department | Care Team | Description | +--------+ + + + + | 06/01/ | Orders Only | [facility] | Jordan Aguiar, | | | 2019 | | CONVERSION 888 | MD [address] | | | | | [address] | [place], [place] | | | | | [place], [place] | [address] | | | | | [address] | [phone] | | | | | [phone] | | | +--------+ + + + [...] [place] | | | | | | [id number] | | | | | | | | +--------+---------+ + + + documented as of this encounter Procedures + +--------+ + + + | Procedure Name | Priori | Date/Time | Associated Diagnosis | Comments | | | ty | | | | + +--------+ + + + | ECHO INTERPRETATION | Routin | 04/30/2019 | | Results for this | | OF OUTSIDE FILMS | e | 5:00 PM | | procedure are in the | | | | PDT | | results section. | + +--------+ + + + documented in this encounter Results ECHO Interpretation of Outside Films (04/30/2019 5:00 PM PDT) + + | Specimen | + + | | + + + + + | Impressions | Performed At | + + + | 1. This was a technically difficult study with suboptimal apical and | | | subcostal views. Definity was used to opacify the left ventricular | | | chamber and improve delineation of the endocardial borders. 2. | | | Overall left ventricular systolic function is normal with an EF | | | between 55 - 60%. There are apical wall motion abnormalities | | | consistent with CAD. The left ventricle is mildly dilated. 3. The | | | right atrium was not well visualized, but appears to be moderately | | | enlarged. 4. The aortic root and ascending aorta are mildly dilated, | | | measuring up to 4.1 cm. 5. There is laminated thrombus in the apex of | | | the left ventricle. This was also present on the previous study. 6. | | | No significant valvular abnormalities are seen. 7. In comparison to | | | the previous echocardiographic study, done 10/10/15, there are minor | | | changes, as reported below. 8. Jordan Aguiar MD was notified of these | | | results via telephone. | | + + + + + + | Narrative | Performed At | + + + | Patient Name: Josef Ramos Date of : 1945 | | | Performing Physician: NANCY QUINTERO MD | | | | | | INDICATIONS POST OP SIGMOID VOLVULUS, HX CAD/CABG | | | CONCLUSIONS 1. This was a technically difficult study | | | with suboptimal apical and subcostal views. Definity was used to | | | opacify the left ventricular chamber and improve delineation of the | | | endocardial borders. 2. Overall left ventricular systolic function is | | | normal with an EF between 55 - 60%. There are apical wall motion | | | abnormalities consistent with CAD. The left ventricle is mildly | | | dilated. 3. The right atrium was not well visualized, but appears to | | | be moderately enlarged. 4. The aortic root and ascending aorta are | | | mildly dilated, measuring up to 4.1 cm. 5. There is laminated | | | thrombus in the apex of the left ventricle. This was also present on | | | the previous study. 6. No significant valvular abnormalities are | | | seen. 7. In comparison to the previous echocardiographic study, done | | | 10/10/15, there are minor changes, as reported below. 8. Jordan | | | MD Stefania was notified of these results via telephone. FINDINGS | | | -------- ECG rhythm: Sinus rhythm. ECG rhythm: Resting bradycardia | | | (HR<60bpm). Study: A 2-dimensional transthoracic echocardiogram with | | | m-mode, spectral and color flow Doppler was perfomed. Study: Definity | | | contrast agent was used to better delineate the left ventricular wall | | | segments. Study: This was a technically difficult study with | | | suboptimal apical views. Left Ventricle: Overall left ventricular | | | systolic function is normal with an EF between 55 - 60%, improved from | | | an EF of 40 - 45% on the previous study. Left Ventricle: The left | | | ventricle is mildly dilated. Left Ventricle: Left ventricular wall | | | thickness is normal. Left Ventricle: The following regional wall | | | motion abnormalities include: Left Ventricle: apical septum - | | | dyskinetic; Left Ventricle: inferior apex - severely hypokinetic; | | | Left Ventricle: apex - akinetic with laminated thrombus, unchanged | | | from the previous study; Left Ventricle: The remaining left | | | ventricular segments contract normally. Assessment of diastolic | | | function is indeterminate (there was mild, grade 1 diastolic | | | dysfunction reported on the previous study). Right Ventricle: The RV | | | was not well visualized. Its size and systolic function could not be | | | assessed. Left Atrium: The left atrium is normal in size. Although | | | it was reported to be mildly enlarged on the previous study, the | | | recorded measurement was consistent with normal size. Right Atrium: | | | The right atrium was not well visualized, but appears to be moderately | | | enlarged. It was mildly enlarged on the previous study. Aortic | | | Valve: Aortic valve is mildly thickened. Aortic Valve: There is no | | | evidence of aortic regurgitation. Aortic Valve: There is no evidence | | | of aortic stenosis. Aortic Valve: The aortic valve is trileaflet. | | | Mitral Valve: Normal appearing mitral valve except for mild thickening | | | of the mitral valve leaflets. Mitral Valve: Mild mitral | | | regurgitation is present. Mitral Valve: No evidence of MVP Mitral | | | Valve: Mild mitral annular calcification present. Tricuspid Valve: | | | The tricuspid valve appears structurally normal. Tricuspid Valve: | | | Trace tricuspid regurgitation is present. Tricuspid Valve: The right | | | ventricular systolic pressure (pulmonary artery systolic pressure), as | | | measured by Doppler, is 13 mmHg + CVP (which could not be estimated | | | on this study, due to the inability to evaluate the IVC). Pulmonic | | | Valve: Pulmonic valve appears structurally normal. Pulmonic Valve: | | | Moderate pulmonic regurgitation is present, increased from trace | | | regurgitation on the previous exam. Pericardium: There is no | | | pericardial effusion. IVC/Hepatic Veins: The IVC was not well | | | visualized. Aorta: The aortic root and ascending aorta are mildly | | | dilated, measuring up to 4.1 cm. It was reported to be normal in | | | size on the previous study. Mass: No mass visualized Thrombus: There | | | is laminated thrombus in the apex of the left ventricle. This was | | | also present on the previous study. Contrast: Poor visualization. | | | Definity was used to opacify the left ventricular chamber and improve | | | delineation of the endocardial border. MEASUREMENTS | | | Ao asc: 4 cm Ao sinus: [address] junct: 3.23 cm | | | EDV(Teich): 164.72 ml IVSd: 0.95 cm LVIDd: 5.77 cm LVPWd: | | | 0.80 cm LVOT Diam: 2.25 cm %FS: 28.23 % EF(Teich): | | | 53.83 % ESV(Teich): 76.04 ml LVIDs: 4.14 cm SV(Teich): | | | 88.67 ml LVEF MOD A2C: 49.09 % SV MOD A2C: 46.60 ml LVEF MOD | | | A4C: 43.61 % SV MOD A4C: 59.52 ml EF Biplane: 46.33 % | | | LVEDV MOD BP: 118.09 ml LVESV MOD BP: 63.37 ml LVEDV MOD A2C: | | | 94.91 ml LVLd A2C: 8.77 cm LVEDV MOD A4C: 136.46 ml LVLd | | | A4C: 9.47 cm LVESV MOD A2C: 48.31 ml LVLs A2C: 7.44 cm | | | LVESV MOD A4C: 76.94 ml LVLs A4C: 8.33 cm LAESV(A-L): 47.74 | | | ml LAESV Index (A-L): 23.06 ml/m2 LAAs A2C: 16.45 cm2 LAESV | | | A-L A2C: 44.05 ml LAESV MOD A2C: 41.29 ml LALs A2C: 5.21 cm | | | LAAs A4C: 15.39 cm2 LAESV A-L A4C: 44.66 ml LAESV MOD A4C: | | | 44.18 ml LALs A4C: 4.50 cm AV Env.Ti: 373.08 ms AV maxPG: | | | 3.27 mmHg AV meanP.95 mmHg AV Vmax: 0.90 m/s AV Vmean: | | | 0.66 m/s AV VTI: 24.87 cm BLAKE Vmax: 3.24 cm2 BLAKE (VTI): | | | 2.80 cm2 AVAI Vmax: 0.00 cm2/m2 AVAI (VTI): 0.00 cm2/m2 | | | LVOT Env.Ti: 350.46 ms LVOT maxP.16 mmHg LVOT meanPG: | | | 1.10 mmHg LVSI Dopp: 33.69 ml/m2 LVSV Dopp: 69.74 ml LVOT | | | Vmax: 0.73 m/s LVOT Vmean: 0.49 m/s LVOT VTI: 17.45 cm MV | | | A Nik: 0.51 m/s MV Dec [place]: 3.23 m/s2 MV DecT: 205.45 ms | | | MV E Nik: 0.66 m/s MV E/A Ratio: 1.30 E/E' Sept: 14.34 E' | | | Lat: 0.10 m/s E' Sept: 0.04 m/s TR maxP.36 mmHg TR | | | Vmax: 1.75 m/s Certified Medical Assistant: Authenticated by: NANCY QUINTERO, | | | Report Date/Time: 04-30-2019 16:56:46 | | + + + + + | Procedure Note | + + | Toby, Rad Conversion - 06/01/2019 9:23 AM PDT Patient Name: Kianna Ramos of | | : 1945 Performing Physician: NANCY QUINTERO, | | INDICATIONS P | | OST OP SIGMOID VOLVULUS, HX CAD/CABG CONCLUSIONS 1. This was a technically | | difficult study with suboptimal apical and subcostal views. Definity was used to opacify | | the left ventricular chamber and improve delineation of the endocardial borders.2. | | Overall left ventricular systolic function is normal with an EF between 55 - 60%. There | | are apical wall motion abnormalities consistent with CAD. The left ventricle is mildly | | dilated.3. The right atrium was not well visualized, but appears to be moderately | | enlarged.4. The aortic root and ascending aorta are mildly dilated, measuring up to 4.1 | | cm.5. There is laminated thrombus in the apex of the left ventricle. This was also | | present on the previous study. 6. No significant valvular abnormalities are seen. 7. In | | comparison to the previous echocardiographic study, done 10/10/15, there are minor | | changes, as reported below. 8. Jordan Aguiar MD was notified of these results via | | telephone. FINDINGS--------ECG rhythm: Sinus rhythm.ECG rhythm: Resting bradycardia | | (HR<60bpm).Study: A 2-dimensional transthoracic echocardiogram with m-mode, spectral and | | color flow Doppler was perfomed.Study: Definity contrast agent was used to better | | delineate the left ventricular wall segments.Study: This was a technically difficult | | study with suboptimal apical views.Left Ventricle: Overall left ventricular systolic | | function is normal with an EF between 55 - 60%, improved from an EF of 40 - 45% on the | | previous study.Left Ventricle: The left ventricle is mildly dilated.Left Ventricle: Left | | ventricular wall thickness is normal.Left Ventricle: The following regional wall motion | | abnormalities include:Left Ventricle: apical septum - dyskinetic;Left Ventricle: | | inferior apex - severely hypokinetic;Left Ventricle: apex - akinetic with laminated | | thrombus, unchanged from the previous study;Left Ventricle: The remaining left | | ventricular segments contract normally. Assessment of diastolic function is | | indeterminate (there was mild, grade 1 diastolic dysfunction reported on the previous | | study).Right Ventricle: The RV was not well visualized. Its size and systolic function | | could not be assessed.Left Atrium: The left atrium is normal in size. Although it was | | reported to be mildly enlarged on the previous study, the recorded measurement was | | consistent with normal size.Right Atrium: The right atrium was not well visualized, but | | appears to be moderately enlarged. It was mildly enlarged on the previous study.Aortic | | Valve: Aortic valve is mildly thickened.Aortic Valve: There is no evidence of aortic | | regurgitation.Aortic Valve: There is no evidence of aortic stenosis.Aortic Valve: The | | aortic valve is trileaflet.Mitral Valve: Normal appearing mitral valve except for mild | | thickening of the mitral valve leaflets.Mitral Valve: Mild mitral regurgitation is | | present.Mitral Valve: No evidence of MVPMitral Valve: Mild mitral annular calcification | | present.Tricuspid Valve: The tricuspid valve appears structurally normal.Tricuspid | | Valve: Trace tricuspid regurgitation is present.Tricuspid Valve: The right ventricular | | systolic pressure (pulmonary artery systolic pressure), as measured by Doppler, is 13 | | mmHg + CVP (which could not be estimated on this study, due to the inability to evaluate | | the IVC).Pulmonic Valve: Pulmonic valve appears structurally normal.Pulmonic Valve: | | Moderate pulmonic regurgitation is present, increased from trace regurgitation on the | | previous exam.Pericardium: There is no pericardial effusion.IVC/Hepatic Veins: The IVC | | was not well visualized.Aorta: The aortic root and ascending aorta are mildly dilated, | | measuring up to 4.1 cm. It was reported to be normal in size on the previous | | study.Mass: No mass visualizedThrombus: There is laminated thrombus in the apex of the | | left ventricle. This was also present on the previous study.Contrast: Poor | | visualization. Definity was used to opacify the left ventricular chamber and improve | | delineation of the endocardial border. MEASUREMENTS Ao asc: 4 cmAo sinus: | | [address] junct: 3.23 cmEDV(Teich): 164.72 mlIVSd: 0.95 cmLVIDd: 5.77 cmLVPWd: | | 0.80 cmLVOT Diam: 2.25 cm%FS: 28.23 %EF(Teich): 53.83 %ESV(Teich): 76.04 | | mlLVIDs: 4.14 cmSV(Teich): 88.67 mlLVEF MOD A2C: 49.09 %SV MOD A2C: 46.60 mlLVEF | | MOD A4C: 43.61 %SV MOD A4C: 59.52 mlEF Biplane: 46.33 %LVEDV MOD BP: 118.09 | | mlLVESV MOD BP: 63.37 mlLVEDV MOD A2C: 94.91 mlLVLd A2C: 8.77 cmLVEDV MOD A4C: | | 136.46 mlLVLd A4C: 9.47 cmLVESV MOD A2C: 48.31 mlLVLs A2C: 7.44 cmLVESV MOD A4C: | | 76.94 mlLVLs A4C: 8.33 cmLAESV(A-L): 47.74 mlLAESV Index (A-L): 23.06 ml/m2LAAs | | A2C: 16.45 [id number] A-L A2C: 44.05 mlLAESV MOD A2C: 41.29 mlLALs A2C: 5.21 | | cmLAAs A4C: 15.39 [id number] A-L A4C: 44.66 mlLAESV MOD A4C: 44.18 mlLALs A4C: | | 4.50 cmAV Env.Ti: 373.08 msAV maxP.27 mmHgAV meanP.95 mmHgAV Vmax: 0.90 | | m/Cesar Vmean: 0.66 m/Cesar VTI: 24.87 cmAVA Vmax: 3.24 cm2AVA (VTI): 2.80 mc1LKAH | | Vmax: 0.00 cm2/m2AVAI (VTI): 0.00 cm2/m2LVOT Env.Ti: 350.46 msLVOT maxP.16 | | mmHgLVOT meanP.10 mmHgLVSI Dopp: 33.69 ml/m2LVSV Dopp: 69.74 mlLVOT Vmax: | | 0.73 m/sLVOT Vmean: 0.49 m/sLVOT VTI: 17.45 cmMV A Nik: 0.51 m/sMV Dec [place]: | | 3.23 m/s2MV DecT: 205.45 msMV E Nik: 0.66 m/sMV E/A Ratio: 1.30E/E' Sept: | | 14.34E' Lat: 0.10 m/sE' Sept: 0.04 m/sTR maxP.36 mmHgTR Vmax: 1.75 m/s | | Certified Medical Assistant:Authenticated by: Robert MONIQUE Date/Time: 04-30-2019 16:56:46 | | IMPRESSION: 1. This was a technically difficult study with suboptimal apical and | | subcostal views. Definity was used to opacify the left ventricular chamber and improve | | delineation of the endocardial borders.2. Overall left ventricular systolic function is | | normal with an EF between 55 - 60%. There are apical wall motion abnormalities | | consistent with CAD. The left ventricle is mildly dilated.3. The right atrium was not | | well visualized, but appears to be moderately enlarged.4. The aortic root and ascending | | aorta are mildly dilated, measuring up to 4.1 cm.5. There is laminated thrombus in the | | apex of the left ventricle. This was also present on the previous study. 6. No | | significant valvular abnormalities are seen. 7. In comparison to the previous | | echocardiographic study, done 10/10/15, there are minor changes, as reported below. 8. | | Jordan Aguiar MD was notified of these results via telephone. | |EF Biplane: 46.33 % | |LVEDV MOD BP: 118.09 ml | |LVESV MOD BP: 63.37 ml | |LVEDV MOD A2C: 94.91 ml | |LVLd A2C: 8.77 cm | |LVEDV MOD A4C: 136.46 ml | |LVLd A4C: 9.47 cm | |LVESV MOD A2C: 48.31 ml | |LVLs A2C: 7.44 cm | |LVESV MOD A4C: 76.94 ml | |LVLs A4C: 8.33 cm | |LAESV(A-L): 47.74 ml | |LAESV Index (A-L): 23.06 ml/m2 | |LAAs A2C: 16.45 cm2 | |LAESV A-L A2C: 44.05 ml | |LAESV MOD A2C: 41.29 ml | |LALs A2C: 5.21 cm | |LAAs A4C: 15.39 cm2 | |LAESV A-L A4C: 44.66 ml | |LAESV MOD A4C: 44.18 ml | |LALs A4C: 4.50 cm | |AV Env.Ti: 373.08 ms | |AV maxP.27 mmHg | |AV meanP.95 mmHg | |AV Vmax: 0.90 m/s | |AV Vmean: 0.66 m/s | |AV VTI: 24.87 cm | |BLAKE Vmax: 3.24 cm2 | |BLAKE (VTI): 2.80 cm2 | |AVAI Vmax: 0.00 cm2/m2 | |AVAI (VTI): 0.00 cm2/m2 | |LVOT Env.Ti: 350.46 ms | |LVOT maxP.16 mmHg | |LVOT meanP.10 mmHg | |LVSI Dopp: 33.69 ml/m2 | |LVSV Dopp: 69.74 ml | |LVOT Vmax: 0.73 m/s | |LVOT Vmean: 0.49 m/s | |LVOT VTI: 17.45 cm | |MV A Nik: 0.51 m/s | |MV Dec [place]: 3.23 m/s2 | |MV DecT: 205.45 ms | |MV E Nik: 0.66 m/s | |MV E/A Ratio: 1.30 | |E/E' Sept: 14.34 | |E' Lat: 0.10 m/s | |E' Sept: 0.04 m/s | |TR maxP.36 mmHg | |TR Vmax: 1.75 m/s | | | |Certified Medical Assistant: | |Authenticated by: NANCY QUINTERO MD | |Report Date/Time: 04-30-2019 16:56:46 | | | |IMPRESSION: | |1. This was a technically difficult study with suboptimal apical and subcostal views. Defin ity was used to opacify the left ventricular chamber and improve delineation of the endocard ial borders. | |2. Overall left ventricular systolic function is normal with an EF between 55 - 60%. There are apical wall motion abnormalities consistent with CAD. The left ventricle is mildly dila narcisa. | |3. The right atrium was not well visualized, but appears to be moderately enlarged. | |4. The aortic root and ascending aorta are mildly dilated, measuring up to 4.1 cm. | |5. There is laminated thrombus in the apex of the left ventricle. This was also present on the previous study. 6. No significant valvular abnormalities are seen. 7. In comparison to the previous echocardiographic study, done 10/10/15, there are minor | |changes, as reported below. 8. Jordan Aguiar MD was notified of these results via telephone . | + + documented in this encounter Visit Diagnoses Not on filedocumented in this encounter"
--- OUTSIDE RECORDS SUMMARY | ~2019-09-13 | XMS | Clinical Summary ---
Demographics + + + | Address | [address] | | | [place] [address] | + + + | Home Phone | | + + + | Preferred Language | Unknown | + + + | Marital Status | Single | + + + | Druze Affiliation | Unknown | + + + | Race | Unknown | + + + | Ethnic Group | Unknown | + + + Author + + + | Author | [facility] | | | and [place] | + + + | Organization | [facility] | | | and [place] | + + + | Address | Unknown | + + + | Phone | Unavailable | + + + Support + + +---------+ + | Name | Relationship | Address | Phone | + + +---------+ + | Afshan Lacey | ECON | Unknown | | + + +---------+ + Care Team Providers + +------+ + | Care Crew Trainer Name | Role | Phone | + +------+ + | Erick Bernstein DO | PCP | | + +------+ + Allergies No Known Allergies Medications + + + +---------+------+------+-------+ | Medication | Sig | Dispensed | Refills | Star | End | Statu | | | | | | t | Date | s | | | | | | Date | | | + + + +---------+------+------+-------+ | warfarin | Take 5 mg by mouth | | 0 | 01/2 | | Activ | | (COUMADIN) 5 mg | daily. | | | 20 | | e | | tablet | | | | 13 | | | + + + +---------+------+------+-------+ | acetaminophen | Take 650 mg by mouth | | 0 | 01/2 | | Activ | | (PAIN & FEVER) 325 | every 6 (six) hours | | | 20 | | e | | mg tablet | as needed. | | | 13 | | | + + + +---------+------+------+-------+ | aspirin 81 MG | Take 81 mg by mouth | | 0 | 02/0 | | Activ | | tablet | daily. | | | 10/15 | | e | | | | | | 17 | | | + + + +---------+------+------+-------+ | atorvaSTATin | take 1 tablet by | 90 | 2 | 12/2 | | Activ | | (LIPITOR) 20 mg | mouth every evening | tablet | | 06/15 | | e | | tablet | | | | 18 | | | + + + +---------+------+------+-------+ | lisinopril | Take 0.5 tablets by | 90 | 2 | 04/1 | 04/0 | Activ | | (PRINIVIL, ZESTRIL) | mouth daily. | tablet | | 0/20 | 9/20 | e | | 5 mg tablet | | | | 19 | 20 | | + + + +---------+------+------+-------+ | FLUoxetine | Take 40 mg by mouth | | 0 | | | Activ | | (PROZAC) 40 MG | nightly. | | | | | e | | capsule | | | | | | | + + + +---------+------+------+-------+ | Magnesium 500 MG | Take 500 mg by mouth | | 0 | | | Activ | | tablet | Daily (with | | | | | e | | | dinner). | | | | | | + + + +---------+------+------+-------+ Active Problems + + + | Problem | Noted Date | + + + | Immobility | 01/03/2019 | + + + | CKD (chronic kidney disease), stage III | 10/16/2012 | + + + | Essential hypertension, benign | 10/16/2012 | + + + | CAD (coronary artery disease) | 10/16/2012 | + + + | Dyslipidemia | 10/16/2012 | + + + | Gout | 10/16/2012 | + + + | Mural thrombus of left ventricle | 10/16/2012 | + + + | Ischemic cardiomyopathy | 10/16/2012 | + + + | Mental retardation | 10/16/2012 | + + + Encounters +--------+---------+ + + + | Date | Type | Specialty | Care Team | Description | +--------+---------+ + + + | 07/18/ | Office | Cardiology | Warren Crawley, | Essential | | 2019 | Visit | | MD | hypertension, benign | | | | | | (Primary Dx); | | | | | | Ischemic | | | | | | cardiomyopathy; CKD | | | | | | (chronic kidney | | | | | | disease), stage III; | | | | | | Mental retardation | +--------+---------+ + + + from Last 3 Months Social History + +-------+ +--------+------+ | Tobacco [...] recent travel history available. | + + Last Filed Vital Signs + [...] | | + + + + + Plan of Treatment +--------+---------+ + + + | Date | Type | Specialty | Care Team | Description | +--------+---------+ + + + | 02/05/ | Office | Cardiology | Danera Mishaceline, | | | 2019 | Visit | | [address] | | | | | | [place] | | | | | | [id number] | | | | | | | | +--------+---------+ + + + + + + + + | Health Maintenance | Due Date | Last Done | Comments | + + + + + | Hepatitis C | | | | | Screening | 7 | | | + + + + + | Vaccine: | | | | | Dtap/Tdap/Td (1 - | 6 | | | | Tdap) | | | | + + + + + | Colorectal Cancer | | | | | Screening | 7 | | | | (Colonoscopy) | | | | + + + + + | Vaccine: Zoster (1 | | | | | of 2) | 7 | | | + + + + + | Vaccine: | | | | | Pneumococcal 65+ (1 | 2 | | | | of 2 - PCV13) | | | | + + + + + | Adult Annual | | | | | Wellness Visit | 9 | | | + + + + + | Statin Therapy | | | | | (optimal intensity) | 9 | | | + + + + + | Vaccine: Influenza | 09/01/201 | | | | (#1) | 9 | | | + + + + + Results Not on filefrom Last 3 Months Insurance + +--------+ +--------+ +---------+--------+ | Payer | Benefi | Subscriber | Effect | Phone | Address | Type | | | t Plan | ID | francesca | | | | | | / | | Dates | | | | | | Group | | | | | | + +--------+ +--------+ +---------+--------+ | MEDICARE | MEDICA | [id number] | | [phone] | | Medica | | | RE | | 979-Pr | 5 | | re | | | PART A | | esent | | | | | | AND B | | | | | | + +--------+ +--------+ +---------+--------+ | [employer] | [employer] | [id number] | 07/18/ | [phone] | | Medica | | MEDICAID HMO | HEALTH | | 2019-P | 1 | | id | | | MDCD | | resent | | | | | | HMO [place] | | | | | | + +--------+ +--------+ +---------+--------+ + +--------+ +--------+ + + | Guarantor Name | Accoun | Relation to | Date | Phone | Billing Address | | | t Type | Patient | of | | | | | | | | | | + +--------+ +--------+ + + | Josef Ramos | Person | Self [birth year] | [address] | | | al/Fam | | 1945 | [phone] | [place] | | | [place] | | | [address] (Home) | [address] | + +--------+ +--------+ + + Advance Directives + + + + + | Type | Date Recorded | Patient | Explanation | | | | [employer] | | + + + + + | Power of | | | | | Security Threat Analyst | | | | + + + + + | Advance | | | | | Directive | | | | + + + + +
--- OUTSIDE RECORDS SUMMARY | ~2019-09-13 | XMS | Encounter Summary ---
Demographics + + + | Address | [address] | | | [place] [address] | + + + | Home Phone | | + + + | Preferred Language | Unknown | + + + | Marital Status | Single | + + + | Orthodox Affiliation | Unknown | + + + | Race | Unknown | + + + | Ethnic Group | Unknown | + + + Author + + + | Author | [facility] | | | and [place] | + + + | Organization | [facility] | | | and [...] Team Providers + +------+ + | Care Orthotic Aide Name | Role | Phone | + +------+ + | Erick Bernstein DO | PCP | | + +------+ + Encounter Details +--------+ + + + + | Date | Type | Department | Care Team | Description | +--------+ + + + + | 10/16/ | Orders Only | [facility] | Conversion | | | 2012 | | CONVERSION DEP [address] | Transaction, | | | | | [address] | Provider Unknown | | | | | [place] | [phone] | | | | | [phone] | | | | | | [phone] | | | +--------+ + + + [...] | | | | | [place] | | | | | | [id number] | | | | | | | | +--------+---------+ + + + documented as of this encounter Visit Diagnoses Not on filedocumented in this encounter"
--- OUTSIDE RECORDS SUMMARY | ~2019-09-13 | XMS | Encounter Summary ---
Demographics + + + | Address | [address] | | | [place] [address] | + + + | Home Phone | | + + + | Preferred Language | Unknown | + + + | Marital Status | Single | + + + | Episcopalian Affiliation | CHR | + + + | Race | White | + + + | Ethnic Group | Not or | + + + Author + + + | Author | [facility] | + + + | Organization | [facility] | + + + | Address | Unknown | + + + | Phone | Unavailable | + + + Support + + + + + | Name | Relationship | Address | Phone | + + + + + | Joanne Zhang | HERMILA | [address] | | | | | [place] | | | | | [address] | | + + + + + | Linh Cernat | ECON | Unknown | | + + + + + Care Team Providers + +------+ + | Care Pantograph Engraver Name | Role | Phone | + +------+ + | No Pcp Per Patient | PCP | Unavailable | + +------+ + Reason for Referral Diagnostic Testing (Routine) +--------+--------+ + + + + | Status | Reason | Specialty | Diagnoses / | Referred By | Referred To | | | | | Procedures | Contact | Contact | +--------+--------+ + + + + | Closed | | Cardiology | Procedures | Thong | Magnus Altamirano | | | | | | MD Alexys | [facility] [address] | | | | | TRAN[address]ACI | | [address] | | | | | C | | Mailcode: | | | | | ECHOCARDIOGR | | [id number] Sally | | | | | AM, ADULT | | [address] | | | | | | | Building | | | | | | | [place], [place] | | | | | | | [address] | | | | | | | Phone: | | | | | | | [phone] | +--------+--------+ + + + + Reason for Visit + + + | Reason | Comments | + + + | Cardiac arrhythmia | | + + + AUTH/CERT +--------+--------+ + + + + | Status | Reason | Specialty | Diagnoses / | Referred By | Referred To | | | | | Procedures | Contact | Contact | +--------+--------+ + + + + | Closed | | | | | | +--------+--------+ + + + + Encounter Details +--------+ + + + + | Date | Type | Department | Care Team | Description | +--------+ + + + + | 09/29/ | Hospital | [facility] [address] | Kyle Ambrose MD | | | 2013 - | Encounter | [place] [id number] | [address] | | | | | [facility] | [address] | | | 10/03/ | | [place], [place] | [place] [address] | | | 2012 | | [id number] | [phone] | | | | | [phone] | | | +--------+ + + + [...] + + + | Blood Pressure | 97/48 | 10/03/2012 1:09 PM | | | | | PST | | + + + + + | Pulse | 78 | 10/03/2012 1:09 PM | | | | | PST | | + + + + + | Temperature | 36.7 C (98.1 F) | 10/03/2012 1:09 PM | | | | | PST | | + + + + + | Respiratory Rate | 18 | 10/03/2012 1:09 PM | | | | | PST | | + + + + + | Oxygen Saturation | 96% | 10/03/2012 1:09 PM | | | | | PST | | + + + + + | Inhaled Oxygen | - | - | | | Concentration | | | | + + + + + | Weight | 150 kg (330 lb 11 | 10/02/2012 9:35 AM | | | | oz) | PST | | + + + + + | Height | 188 cm (6' 2") | 09/29/2012 7:18 PM | | | | | PST | | + + + + + | Body Mass Index | 42.46 | 09/29/2012 7:18 PM | | | | | PST | | + + + + + documented in this encounter Discharge Summaries Michael Colon MD - 10/03/2012 5:25 PM PSTFormatting of this note might be different fr om the original. CARDIOLOGY PHYSICIAN DISCHARGE SUMMARY PCP: No Pcp Per PATIENT Referring Physician: Nikki Wooten DO Primary/Outpatient Director Of Retail Analytics: GLENN Inpatient Attending Physician: / Author/Discharging Physician: TI VALLECILLO MD,MPH Admission Date: 09/29/2012 Discharge Date: 10/03/12 Diagnoses Principal Final Diagnosis: 1. Ventricular tachycardia 2. Severe three vessel coronary disease 3. Left ventricle thrombus 4. Ischemic cardiomyopathy 5. High blood pressure 6. High cholesterol Additional Diagnoses: 1.Mental retardation Procedures 1. Coronary angiography 2. Echocardiogram Reason For Admission: V Tach Hospital Course: is a 67 yo man with developmental delay who collapsed while walking [place] [facility] on 09/29/12 where EMS was called and found him in V tach where he was given amiodarone 70m g IV followed by defibrillation with 120 J of energy which converted him to v tach to afib w ith eventual conversion to NSR. He was transferred to [facility] for further management form [facility]. He underwent angiography on 09/30/12 that showed severe three vessel disease and LV thrombus on ECHO which also showed a much reduced LVEF of 25-30%. He had LDL of 75 an d HDL of 30, and was also hypertensive. 1. V Tach Most likely due to ischemic heart disease given severe three vessel disease, wall motion ab normalities and q waves on EKG suggesting previous UT and absence of other etiologies of V t ach. Pt was loaded with IV amiodarone followed by Po amiodarone. He will complete 1 week of amio 400mg TID followed by 400mg BID x 2 weeks followed by 400 mg daily. He was sent home with life vest in case he has recurrence of V tach and will have CABG in late October and jacquelyn tariq up with EP. 1. LV Thrombus He was was treated with heparin gtt for the LV thrombus and initiated on warfarin. However he was not therapeutic on day of discharge hence was discharged with Lovenox with INR check within 2-3 days of discharge which was arranged in [facility] (I called his PCP). - ECHO at [facility] in 1 month 3. Severe 3 Vessel Disease and ISCM He was seen by cardiac surgery and he is scheduled for November 22, 2012. He will be admitt ed on Nov 19 where his coumadin will be stopped and bridged with heparin. - Aspirin 325mg daily - Lisinopril 5mg daily - Metop tart 25mg BID - Simvastatin 20mg daily - Spironolactone 50mg BID - CABG on Nov 22, 2012 Current Discharge Medication List START taking these medications Details amiodarone 200 mg Oral tablet Take 400mg three times daily until 10/07/2012 Take 400mg twice daily from 10/08/12 -10/22/12 Take 400mg daily indefinitely starting10/23/12 Qty: 131 Tab, Refills: 11 aspirin 325 mg Oral tablet Take 1 Tab by mouth once daily. Qty: 30 Tab, Refills: 11 enoxaparin (LOVENOX) 150 mg/mL Subcutaneous Syringe Inject 1 mL under the skin (SUBC) every twelve hours for 3 days. Continue for at least 5 days and overlap with warfarin until INR 2 -3. Qty: 10 Syringe, Refills: 0 lisinopril 5 mg Oral tablet Take 1 Tab by mouth once daily. Qty: 30 Tab, Refills: 11 metoprolol tartrate 25 mg Oral tablet Take 1 Tab by mouth two times daily. Qty: 60 Tab, Refills: 11 simvastatin 20 mg Oral tablet Take 1 Tab by mouth once daily in the evening. Qty: 30 Tab, Refills: 11 warfarin 5 mg Oral tablet Take 1 Tab by mouth once daily in the evening. Qty: 30 Tab, Refills: 11 CONTINUE these medications which have NOT CHANGED Details spironolactone 25 mg Oral tablet Take 25 mg by mouth two times daily. STOP taking these medications aspirin chewable 81 mg Oral tablet, chewable Comments: Reason for Stopping: Diet Low Sodium, Low Cholesterol Sodium 2 gm, Low Cholesterol- Choose foods that are low in cholesterol, saturated fat, tota l fat and have low to moderate sodium levels. Activity No activity restrictions Patient Instructions for Heart Failure *Weigh yourself daily. Fluid retention is often the first sign that your heart failure is worsening. Report a gain of 3 or more pounds in a 24 hour period or 5 or more pounds in 1 w flandreau to your physician. *Call 911 right away for the following signs of critical worsening heart failure: - Chest Pain or pressure, or neck or arm pain. - You feel faint or pass out. - You are severely short of breath. *Call your provider as soon as possible if you have these less urgent symptoms of worsenin g heart failure: - Sudden weight gain of 3 pounds in one day or 5 pounds in a week. - New or increased shortness of breath. - More swelling in the feet, ankles, or legs, or abdominal bloating, or swollen hands or fa ce. - More tiredness than usual. - Frequent, dry, hacking, cough. *You should be on a low salt diet (no more than 2,000 mg of sodium per day) unless your pro vider has instructed you differently. If you are diabetic or on dialysis, you may have furt her restrictions. *You do not have any specific activity restrictions based on Heart Failure. Being more act francesca is one of the best things you can do for your heart. Call your provider if you notice t hat you are dizzy or short of breath with exercise or activity. *It is very important to follow up with either your Primary Care Provider or your Cardiolog ist as soon as possible. If there is no specific follow up plan arranged, you should make a n appointment to follow up ideally within 1 week of discharge. Discharge Labs: Complete Blood Count Lab Results Component Value Date WBC 10.0 10/03/2012 HB 15.5 10/03/2012 HCT 46.2 10/03/2012 PLT 184 10/03/2012 MCV 92.4 10/03/2012 RDW 13.7 10/03/2012 Basic Metabolic Panel Lab Results Component Value Date NA 137 10/03/2012 K 4.1 10/03/2012 CL 104 10/03/2012 BICARB 21 10/03/2012 BUN 29 10/03/2012 CR 1.76 10/03/2012 GLU 121 10/03/2012 CA 9.0 10/03/2012 Lipid Panel Lab Results Component Value Date CHOL 133 10/01/2012 LDL 75 10/01/2012 HDL 30 10/01/2012 TRI 141 10/01/2012 Most recent LV Ejection Fraction: 25-30% Per ECHO on 09/30/2012 Tobacco Use: Lifelong non-smoker Core Measures: Diagnosis of Acute UT: No Diagnosis of CHF: Yes. Patient is on an ADILSON-I/ARB.. Patient is on a beta-jessy at dis charge. Cardiac Rehabilitation: This patient is not referred for cardiac rehabilitation. Outstanding labs/studies: INR either this , 10/05 or Tuesday10/06/12 Echocardiogram in Oct at [facility] Discharge weight: Wt Readings from Last 1 Encounters: 10/02/12 150 kg (330 lb 11 oz) Discharging Physician: TI VALLECILLO MD,MPH Attending Physician: Cardiology Attending I have seen and examined Mr. Crowder and discussed the patient's management with the reside nt and/or fellow. I reviewed the housestaff note above and agree with the documented findin gs and plan of care. Arrangements were made for Mr. Crowder to use lovenox until warfarin i s therapeutic, a life vest to prevent further VT, return for an echocardiogram, and, provide d there is satisfactory resolution of the LV thrombus, proceed with CABG. This would requir e preadmission for tuning. Patient and his niece expressed agreement with this overall plan . EPIC DEPARTMENT: Place of Service: Inpatient Hospital Date of Service: 10/03/2012 CSN: [id number] Suggested Modifiers: GC-Resident documented in this e ncounter Discharge Instructions Instructions Tiffany Brewer RN - 10/03/2012Patient Education Materials: Supraventricular tac hycardia: After your visit, Coronary artery disease: After your visit, Coronary angiogram: W hat to expect at home, Consistent Vitamin K diet: After your visit, medication information f or:Amiodarone, atorvastatin, enoxaparin, Enoxaparin:After your visit, Lisinopril, Metoprolol , Warfarin Additional Instructions: Life Vest fitting and information provided to pt and caregivers. Discharge Nurse: Tiffany Brewer Date: 10/03/2012 Discharge Time: 12:38 PM AttachmentsThe following attachments cannot be sent through Care Everywhere.Supraventricula r Tachycardia: After Your VisitCoronary Artery Disease: After Your VisitCoronary Angiogram: What to Expect at Homeamiodarone (oral)atorvastatinenoxaparinEnoxaparin (Lovenox): After You r VisitlisinoprilmetoprololConsistent Vitamin K Diet: After Your Visitwarfarindocumented in this encounter Medications at Time of Discharge + + + +---------+ + + | Medication | Sig | Dispensed | Refills | Start | End Date | | | | | | Date | | + + + +---------+ + + | acetaminophen 650 | Take 1 Tab by mouth | | 0 | 12/23/19 | | | mg Oral tablet | every four hours | | | 13 | | | | while awake. | | | | | + + + +---------+ + + | amiodarone 200 mg | Take 2 tablets ( 400 | | 0 | | | | Oral tablet | mg) by mouth once | | | | | | | daily | | | | | + + + +---------+ + + | aspirin chewable | Take 1 Tab by mouth | | 0 | 12/23/19 | | | 81 mg Oral tablet, | once daily. | | | 13 | | | chewable | | | | | | + + + +---------+ + + | folic acid 1 mg | Take 1 Tab by mouth | | 0 | 12/23/19 | | | Oral tablet | once daily. | | | 13 | | + + + +---------+ + + | | Take 1 Tab by mouth | | 0 | 12/23/19 | | | multivitamin-mineral | once daily. | | | 13 | | | s Oral tablet | | | | | | + + + +---------+ + + | nitroglycerin 0.4 | Place 0.4 mg under | | 0 | | | | mg Sublingual | tongue every five | | | | | | tablet, sublingual | minutes as [...] 15 minutes. | | | | | + + + +---------+ + + | omeprazole 40 mg | Take 1 Cap by mouth | | 0 | 12/23/19 | | | Oral capsule,delayed | once daily. | | | 13 | | | release(DR/EC) | | | | | | + + + +---------+ + + | oxyCODONE, | Take 1 Tab by mouth | 40 Tab | 0 | 12/23/19 | | | immediate release, 5 | every four hours as | | | 13 | | | mg Oral tablet | needed for moderate | | | | | | | pain or severe pain | | | | | | | (for pain.). | | | | | + + + +---------+ + + | simvastatin 20 mg | Take 1 Tab by mouth | 30 Tab | 11 | 10/03/19 | | | Oral tablet | once daily in the | | | 13 | | | | evening. | | | | | + + + +---------+ + + | thiamine 100 mg | Take 1 Tab by mouth | | 0 | 12/23/19 | | | Oral tablet | once daily. | | | 13 | | + + + +---------+ + + | warfarin 2 mg Oral | Take 1 Tab by mouth | | 0 | 12/23/19 | | | tablet | once daily at | | | 13 | | | | bedtime. INR goal | | | | | | | 2-3 - adjust dose in | | | | | | | accordance c INR | | | | | + + + +---------+ + + | enoxaparin | Inject 1 mL under | 10 | 0 | 10/03/19 | | | (LOVENOX) 150 mg/mL | the skin (SUBC) | Syringe | | 13 | 3 | | Subcutaneous Syringe | every twelve hours | | | | | | | for 3 days. Continue | | | | | | | for at least 5 days | | | | | | | and overlap with | | | | | | | warfarin until INR | | | | | | | 2-3. | | | | | + + + +---------+ + + documented as of this encounter Progress Notes Joseph Lewis - 10/02/2012 1:51 PM PSTCardiac Surgery Note -- plan CABG 22 Nov 2012 -- needs TTE done as outpatient next month to evaluate resolution of LV thrombus. ([facility]) -- Mr. Crowder is to admit to [facility] Cadiac Surgery on Tuesday, 19 Nov 2012 for anti-coagulati on -- last dose of warfarin Tuesday, 17 Nov 2012 -- for any questions (Electronically Signed) Joseph Lewis PA-C [facility] Cardiac Surgery ichael Colon MD - 2012 1:50 PM PST CCU PROGRESS NOTE Patient name: Josef Crowder Hospital Day: 3 Author: TI VALLECILLO MD,MPH Attending Physician: ID: is a 67 yo man with h/o HTN, CAD s/p likely UT given q waves in EKG, develop mental delay who had hemodynamically significant vtach on 09/29/12 s/p defibrillation who was transferred from OSH for further management and on [facility] here on 09/30/12 found to have anterio r, anteroseptal, and apical wall thinness and akinesis,, and LV thrombus and severe 3 vessel disease on cath. Interval History/Overnight Events: - Seen by CTS Subjective Happy about [employer] win over [employer]. No chest pain, sob, abd pain, n/v. Current medications: amiodarone (aka CORDARONE) tablet 400 mg, 400 mg, Oral, TID aspirin tablet 325 mg, 325 mg, Oral, DAILY atorvastatin (aka LIPITOR) tablet 80 mg, 80 mg, Oral, DAILY heparin bolus from continuous infusion (protocol) 10,000 Units, 10,000 Units, Intravenous, NEEDED (BOLUS) heparin bolus from continuous infusion (protocol) 6,000 Units, 6,000 Units, Intravenous, NEEDED (BOLUS) heparin in D5W IV infusion 25,000 units/250 mL (100 units/mL), 1-3,000 Units/hr, Intravenou s, CONTINUOUS lisinopril (aka PRINIVIL) tablet 5 mg, 5 mg, Oral, DAILY menthol-zinc oxide (aka CALAZIME) topical paste, , Topical, QID PRN metoprolol tartrate (aka LOPRESSOR) tablet 12.5 mg, 12.5 mg, Oral, BID pneumococcal (23-valent) polysaccharide vaccine (aka PNEUMOVAX) injection 0.5 mL, 0.5 mL, I ntramuscular, ONE TIME IN THE MORNING polyethylene glycol (aka MIRALAX) powder 17 g, 17 g, Oral, DAILY PRN spironolactone (aka ALDACTONE) tablet 50 mg, 50 mg, Oral, BID warfarin (aka COUMADIN) tablet 5 mg, 5 mg, Oral, QPM Physical Exam: Last Vitals: BP 131/70 | Pulse 72 | Temp 36.9 C (98.4 F) | RR 16 | Ht 1.88 m (6' 2") | Wt 150 kg (330 lb 11 oz) | SpO2 94% | BMI 42.46 kg/(m^2) O2 Delivery Device: None (room air) (10/02/12 1058) 24 Hour Vital Min/Max: Systolic (24hrs), Av mmHg, Min:94 mmHg, Max:131 mmHgDiastolic (24hrs), Av mmHg, Mi n:50 mmHg, Max:73 mmHgPulse Av Min: 56 Max: 72 Temp Av.5 C (97.7 F) Min: 36.3 C (97.3 F) Max: 36.9 C (98.4 F) Resp Av Min: 16 Max: 20 SpO2 Av.2 % Min: 92 % Max: 96 % Wt Readings from Last 3 Encounters: 10/02/12 150 kg (330 lb 11 oz) Intake/Output Summary (Last 24 hours) at 10/02/12 1351 Last data filed at 10/02/12 1100 Gross per 24 hour Intake 1362.53 ml Output 2150 ml Net -787.47 ml General Appearance: Very pleasant as always, in bed watching TV, in nad Neck: No JVD Respiratory: Bibasilar crackles, no wheezes Cardiac: RRR, no mrg Gastrointestinal: Obese, soft, nt, nd, nabs Ext: Warm, no edema Neuro: awake, mentally delayed Labs: Chemistries: Recent Labs Basename 10/02/12 03510/01/1235309/30/12150 NA 138 140 136 K 4.1 3.8 4.3 CL 103 107 105 BICARB 26 24 23 BUN 29* 22* 25* CR 2.02* 1.49* 1.50* Recent Labs Basename 10/02/12 03510/01/1235309/30/1215009/29/121929 CA 9.0 8.3* 8.5* -- MG 2.2 1.9 -- 1.9 PO4 -- -- -- -- CBC with diff: Recent Labs Basename 10/02/1235410/01/1235309/30/1215009/29/121929 WBC 8.5 7.7 8.6 -- NEUTROPERC -- -- -- 75* NEUTROPHILCO -- -- -- 7.0 BANDPCT -- -- -- -- LYMPHPERC -- -- -- 17* MONOPERC -- -- -- 7 BASOPERC -- -- -- 0 EOSPERC -- -- -- 1 Recent Labs Basename 10/02/1235410/01/1235309/30/12150 HB 15.2 14.7 14.9 HCT 45.1 43.6 43.8 MCV 91.5 91.9 90.9 RDW 13.6 13.9 13.3 PLT 176 161 170 Recent Labs Basename 10/01/12353 CHOL 133 LDL 75 HDL 30* TRI 141 Coagulation studies: Recent Labs Basename 10/02/12 0945 10/02/1235410/01/122053 APTT 92.3* 100.0* 199.1* FIBRINOGEN -- -- -- Assessment/Plan 67 yo man with h/o HTN, CAD s/p likely UT given q waves in EKG and wall motion abnormalitie s on ECHO, developmental delay who had hemodynamically significant vtach on 09/29/12 s/p defib rillation who was transferred from OSH for further management where he was found to have LV thrombus on ECHO and severe 3 vessel disease on angio. #. Severe 3 vessel disease c/b ISCM with reduced LVSF and LV thrombus He has been seen by CTS and they would like to do the CABG mid October after he has been a nticoagulated adequately for his LV thrombus. He would need repeat ECHO in 1 month that will done in [place] where he lives. - Aspirin 325mg - Metop tart 12.5 BID - Atorvastatin 80mg daily - Lisinopril 5mg daily - Spironolactone 50mg daily - Prudent diet - ECHO in 1 month in [place] - CABG in mid October #. LV thrombus - Cont heparin gtt until therapeutic on warfarin - Cont warfarin 5mg daily, cont heparin until therapeutic on warfarin - Daily INR #. Arrhythmia, Vtach Most likely ischemic in etiology. - Amio 400mg TID for a total of 1 week followed by 400 BID x 2 weeks followed by 400mg silas y - Life Vest on discharge - paper work submitted to human services case manager - EP following and appreciate their recs #. HTN - Lisinopril 5mg daily, spironolactone 50 mg daily and metop 12.5 mg BID Routine Care F: prudent diet A S T: On heparin gtt and warfarin H U G: Monitor Pt staffed with who agrees with above A/P. Ti Vallecillo MD,MPH Internal Medicine Resident PGY2 [id number] Cardiology Attending I have seen and examined Mr. Crowder and discussed the patient's management with the reside nt and/or fellow. I reviewed the housestaff note above and agree with the documented findin gs and plan of care. We are arranging outpatient life vest in anticipation of CABG for full revascularization. Given LV thrombus he will need to be on warfarin. [facility] DEPARTMENT: Place of Service: Inpatient Hospital Date of Service: 10/02/2012 [facility]: [id number] Suggested Modifiers: GC-Resident Kyle Ricketts Md - 10/01/2012 6:38 AM PST CCU PROGRESS NOTE Patient name: Josef Crowder Hospital Day: 2 Author: TI VALLECILLO MD,MPH Attending Physician: Kyle Ambrose MD ID: is a 67 yo man with h/o HTN, CAD s/p likely UT given q waves in EKG, develop mental delay who had hemodynamically significant vtach on 09/29/12 s/p defibrillation who was transferred from OSH for further management and on [facility] here on 09/30/12 found to have anterio r, anteroseptal, and apical wall thinness and akinesis,, and LV thrombus and severe 3 vessel disease on coronary angio. Interval History/Overnight Events: No acute events Subjective He says he is feeling good. 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 No chest pain, sob, abd pain, n/v. Current medications: amiodarone (aka CORDARONE) tablet 400 mg, 400 mg, Oral, TID aspirin tablet 325 mg, 325 mg, Oral, DAILY atorvastatin (aka LIPITOR) tablet 80 mg, 80 mg, Oral, DAILY heparin bolus from continuous infusion (protocol) 10,000 Units, 10,000 Units, Intravenous, NEEDED (BOLUS) heparin bolus from continuous infusion (protocol) 6,000 Units, 6,000 Units, Intravenous, NEEDED (BOLUS) heparin in D5W IV infusion 25,000 units/250 mL (100 units/mL), 1-3,000 Units/hr, Intravenou s, CONTINUOUS lisinopril (aka PRINIVIL) tablet 5 mg, 5 mg, Oral, DAILY menthol-zinc oxide (aka CALAZIME) topical paste, , Topical, QID PRN metoprolol (aka LOPRESSOR) tablet 6.25 mg, 6.25 mg, Oral, Q6H polyethylene glycol (aka MIRALAX) powder 17 g, 17 g, Oral, DAILY PRN spironolactone (aka ALDACTONE) tablet 50 mg, 50 mg, Oral, BID warfarin (aka COUMADIN) tablet 5 mg, 5 mg, Oral, QPM Physical Exam: Last Vitals: BP 122/70 | Pulse 55 | Temp 36.8 C (98.2 F) | RR 21 | Ht 1.88 m (6' 2") | Wt 153.5 kg (338 lb 6.5 oz) | SpO2 97% | BMI 43.45 kg/(m^2) O2 Delivery Device: None (room air) (10/01/12 0600) 24 Hour Vital Min/Max: Systolic (24hrs), Av mmHg, Min:93 mmHg, Max:139 mmHgDiastolic (24hrs), Av mmHg, Mi n:40 mmHg, Max:80 mmHgPulse Av.3 Min: 53 Max: 65 Temp Av.6 C (97.9 F) Min: 36.4 C (97.5 F) Max: 36.8 C (98.2 F) Resp Av.3 Min: 14 Max: 25 SpO2 Av.8 % Min: 93 % Max: 98 % Wt Readings from Last 3 Encounters: 10/01/12 153.5 kg (338 lb 6.5 oz) Intake/Output Summary (Last 24 hours) at 10/01/12 0638 Last data filed at 10/01/12 0600 Gross per 24 hour Intake 1178.05 ml Output 1950 ml Net -771.95 ml General Appearance: Extremely pleasant, in nad Neck: No elevated JVP appreciated Cardiac: RRR, no mrg Chest: Crackles at the bases, no wheezes GI: Obese, soft, nt, nd, nabs Ext: Warm, no edema Labs: Chemistries: Recent Labs Basename 10/01/1235309/30/1215009/29/121929 NA 140 136 137 K 3.8 4.3 4.2 CL 107 105 104 BICARB 24 23 20* BUN 22* 25* 24* CR 1.49* 1.50* 1.50* Recent Labs Basename 10/01/1235309/30/1215009/29/121929 CA 8.3* 8.5* 8.9 MG 1.9 -- 1.9 PO4 -- -- -- Glucose: Recent Labs Basename 10/01/1235309/30/12 18509/30/12 1006 GLU 92 123* 123* Thyroid: Recent Labs Basename 09/29/122058 TSH 1.12 FREET4 -- CBC with diff: Recent Labs Basename 10/01/1235309/30/1215009/29/121929 WBC 7.7 8.6 9.4 NEUTROPERC -- -- 75* NEUTROPHILCO -- -- 7.0 BANDPCT -- -- -- LYMPHPERC -- -- 17* MONOPERC -- -- 7 BASOPERC -- -- 0 EOSPERC -- -- 1 Recent Labs Basename 10/01/12 0354 09/30/12 01509/29/121929 HB 14.7 14.9 16.4 HCT 43.6 43.8 48.2 MCV 91.9 90.9 91.4 RDW 13.9 13.3 13.3 PLT 161 170 188 Cardiac labs: Recent Labs Basename 09/30/12 1002 09/30/1215009/29/121929 TROPONIN 0.43 0.52 0.45 BNP -- -- -- No results found for this basename: BNP:3 in the last 4320 hours Recent Labs Basename 10/01/12 0354 CHOL 133 LDL 75 HDL 30* TRI 141 Coagulation studies: Recent Labs Basename 09/30/12 2301 09/30/12205409/30/12 1002 APTT 120.6* 95.5* 111.1* FIBRINOGEN -- -- -- Assessment/Plan 67 yo man with h/o HTN, CAD s/p likely UT given q waves in EKG, developmental delay who had hemodynamically significant vtach on 09/29/12 s/p defibrillation who was transferred from OSH for further management and on [facility] here on 09/30/12 found to have anterior, anteroseptal, and apical wall thinness and akinesis,, and LV thrombus and severe 3 vessel disease on coronary angio. #. CAD, severe 3 vessel disease s/p previous UT and likely ischemic event on 09/29/12 Likely cause of his arrhythmia. Next step at this point would be CABG given degree of disea se distribution. Pt has LV thrombus which he needs to be anticoagulated for at least six wee ks. - Cont heparin gtt x48 hrs - needs to be on it until therapeutic on warfarin for LV thrombu s - see below - Aspirin 325mg - Metop tart 6.25 QID - Atorvastatin 80mg daily - Lisinopril 5mg daily - Spironolactone 25mg daily - Prudent diet #. LV thrombus - Cont heparin gtt - Cont warfarin 5mg daily, cont heparin until therapeutic on warfarin - Daily INR #. Arrhythmia, Vtach Most likely ischemic in etiology. - Amio 400mg TID - Life Vest on discharge - Appreciate EP's help #. HTN - Lisinopril 5mg daily, spironolactone 25 mg daily and metop 6.25mg QID Routine Care F: prudent diet A S T: On heparin gtt H U G: Monitor Pt staffed with who agrees with above A/P. Ti Vallecillo MD,MPH Internal Medicine Resident PGY2 [place] pager [phone] Cardiology Attending I have seen and examined Mr. Crowder and discussed the patient's management with the reside nt and/or fellow. I reviewed the housestaff note above and agree with the documented findin gs and plan of care. Kyle Ambrose M.D. Ph.D. [facility] DEPARTMENT: Place of Service: Inpatient Hospital Date of Service: 10/01/2012 CSN: [id number] Suggested Modifiers: GC-Resident ruz, Kenia Allen MD - 09/30/2012 7:34 PM PST POST-CATH Check S: No chest pain, shortness of breath, numbness/tingling/pain on right hand Last Vitals: BP 115/79 | Pulse 53 | Temp 36.7 C (98.1 F) | RR 19 | Ht 1.88 m (6' 2") | Wt 153 kg (337 lb 4.9 oz) | SpO2 97% | BMI 43.31 kg/(m^2) 24 Hour Vital Min/Max: Systolic (24hrs), Av mmHg, Min:93 mmHg, Max:156 mmHg Diastolic (24hrs), Av mmHg, Min:36 mmHg, Max:132 mmHg Pulse Min: 53 Max: 71 Temp Min: 36.4 C (97.5 F) Max: 36.8 C (98.2 F) Resp Min: 14 Max: 28 SpO2 Min: 93 % Max: 99 % Intake/Output Summary (Last 24 hours) at 01/02/05 1934 Last data filed at 09/30/12 1800 Gross per 24 hour Intake 1592.6 ml Output 1975 ml Net -382.4 ml No oozing or hematoma from right radial artery acces site. Negative reverse Meek test. A/P: Continue post cath care. Management per CCU team. Kenia Groves MD Fellow, Cardiovascular Medicine [facility] [place] [facility] [place] [address] yle Ambrose Md - 09/30/2012 5:26 PM PST CCU PROGRESS NOTE Patient name: Josef Crowder Hospital Day: 1 Author: TI VALLECILLO MD,MPH Attending Physician: Kyle Ambrose MD ID: is a 67 yo man with h/o HTN, CAD s/p likely UT given q waves in EKG, develop mental delay who had hemodynamically significant vtach on 09/29/12 s/p defibrillation who was transferred from OSH for further management and on [facility] here on 09/30/12 found to have anterio r, anteroseptal, and apical wall thinness and akinesis,, and LV thrombus and severe 3 vessel disease on coronary angio. Interval History/Overnight Events: - ECHO done - Coronary angio done Subjective He denies chest pain and sob. 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 No complaints. Says he is here because he had a heart attack and got "zapped" at the store where he was at. Current medications: amiodarone (aka CORDARONE) tablet 400 mg, 400 mg, Oral, TID amiodarone 1.8 mg/mL in dextrose 5% IV infusion, 0.5 mg/min, Intravenous, CONTINUOUS aspirin tablet 325 mg, 325 mg, Oral, DAILY atorvastatin (aka LIPITOR) tablet 80 mg, 80 mg, Oral, DAILY dextrose 50 % IV 25 mL, 25 mL, Intravenous, PRN glucagon (aka GLUCAGEN) injection 1 mg, 1 mg, Intramuscular, PRN glucose chewable tablet 16 g, 16 g, Oral, Q15MIN PRN heparin bolus from continuous infusion (protocol) 10,000 Units, 10,000 Units, Intravenous, NEEDED (BOLUS) heparin bolus from continuous infusion (protocol) 6,000 Units, 6,000 Units, Intravenous, NEEDED (BOLUS) heparin in D5W IV infusion 25,000 units/250 mL (100 units/mL), 1-3,000 Units/hr, Intravenou s, CONTINUOUS insulin lispro (aka HUMALOG) injection 1-16 Units, 1-16 Units, Subcutaneous, MEALS and HS lisinopril (aka PRINIVIL) tablet 5 mg, 5 mg, Oral, DAILY menthol-zinc oxide (aka CALAZIME) topical paste, , Topical, QID PRN metoprolol (aka LOPRESSOR) tablet 6.25 mg, 6.25 mg, Oral, Q6H polyethylene glycol (aka MIRALAX) powder 17 g, 17 g, Oral, DAILY PRN spironolactone (aka ALDACTONE) tablet 50 mg, 50 mg, Oral, BID warfarin (aka COUMADIN) tablet 5 mg, 5 mg, Oral, QPM Physical Exam: Last Vitals: BP 100/54 | Pulse 53 | Temp 36.6 C (97.9 F) | RR 20 | Ht 1.88 m (6' 2") | Wt 153 kg (337 lb 4.9 oz) | SpO2 96% | BMI 43.31 kg/(m^2) O2 Delivery Device: None (room air) (09/30/12 1200) 24 Hour Vital Min/Max: Systolic (24hrs), Av mmHg, Min:89 mmHg, Max:156 mmHgDiastolic (24hrs), Av mmHg, Mi n:36 mmHg, Max:132 mmHgPulse Av.2 Min: 53 Max: 71 Temp Av.6 C (97.9 F) Min: 36.4 C (97.5 F) Max: 36.8 C (98.2 F) Resp Av Min: 17 Max: 28 SpO2 Av.3 % Min: 93 % Max: 99 % Wt Readings from Last 3 Encounters: 09/29/12 153 kg (337 lb 4.9 oz) Intake/Output Summary (Last 24 hours) at 09/30/12 1727 Last data filed at 09/30/12 1500 Gross per 24 hour Intake 1362.59 ml Output 1850 ml Net -487.41 ml General Appearance: Very pleasant, comfortable, in nad Neck; Thick, hard to assess JVP Cardiac: RRR, no mrg Chest: CTAB, no crackles GI: Obese, soft, nt, nd, nabs Ext: Warm, no edema Labs: Chemistries: Recent Labs Basename 09/30/12 01509/29/121929 NA 136 137 K 4.3 4.2 CL 105 104 BICARB 23 20* BUN 25* 24* CR 1.50* 1.50* Recent Labs Basename 09/30/12 01509/29/121929 CA 8.5* 8.9 MG -- 1.9 PO4 -- -- Glucose: Recent Labs Basename 09/30/12 1006 09/30/12 0558 09/30/12150 GLU 123* 101* 151* CBC with diff: Recent Labs Basename 09/30/12 01509/29/121929 WBC 8.6 9.4 NEUTROPERC -- 75* NEUTROPHILCO -- 7.0 BANDPCT -- -- LYMPHPERC -- 17* MONOPERC -- 7 BASOPERC -- 0 EOSPERC -- 1 Recent Labs Basename 09/30/12 01509/29/121929 HB 14.9 16.4 HCT 43.8 48.2 MCV 90.9 91.4 RDW 13.3 13.3 PLT 170 188 Cardiac labs: Recent Labs Basename 09/30/12 1002 09/30/12 01509/29/121929 TROPONIN 0.43 0.52 0.45 BNP -- -- -- Coagulation studies: Recent Labs Basename 09/30/12 1002 09/30/12 0438 09/29/121929 APTT 111.1* 97.8* 48.3* FIBRINOGEN -- -- -- ECHO 09/30/12 Final Impressions: 1. The LV systolic function is severely decreased. The pattern is segmental and there is a large LV thormbus described below. 2. Visually estimated left ventricular ejection fraction is 25 - 30%. 3. Moderately dilated left atrium. 4. The left ventricular cavity size is moderately increased. Left Ventricle: The left ventricular cavity size is moderately increased. Visually estimate d left ventricular ejection fraction is 25 - 30%. The LV systolic function is severely decreased. The anterior, anteroseptal and apical segments are thinned and akinetic. All other segments are hypokinet ic. There is an anteroseptal protruding and somewhat mobile thrombus. Due to poor endocardial definition , ultrasound contrast was used ([employer]). Assessment/Plan 67 yo man with h/o HTN, CAD s/p likely UT given q waves in EKG, developmental delay who had hemodynamically significant vtach on 09/29/12 s/p defibrillation who was transferred from OSH for further management and on [facility] here on 09/30/12 found to have anterior, anteroseptal, and apical wall thinness and akinesis,, and LV thrombus and severe 3 vessel disease on coronary angio. #. CAD, severe 3 vessel disease s/p previous UT and likely ischemic event yesterday Likely cause of his arrhythmia. Next step at this point would be CABG given degree of disea se distribution. Pt has LV thrombus which he needs to be anticoagulated for at least six wee ks. - Cont heparin gtt x48 hrs - needs to be on it until therapeutic on warfarin for LV thrombu s - see below - Aspirin 325mg - Metop tart 6.25 QID - will up titrate tomorrow if BP allows - Atorvastatin 80mg daily - Lisinopril 5mg daily - Spironolactone 25mg daily - Lipids and A1C in am - Prudent diet #. LV thrombus - Cont heparin gtt - Start warfarin 5mg daily, cont heparin until therapeutic on warfarin - Daily INR #. Arrythmia, Vtach Most likely ischemic in etiology. - Amio gtt until 21:30pm tonight - 24 hrs total infusion time - Amio 400mg TID, first dose at 22:00 today #. HTN - Lisinopril 5mg daily, spironolactone 25 mg daily and metop 6.25mg QID Routine Care F: prudent diet A S T: On heparin gtt H U G: Monitor Pt staffed with who agrees with above A/P. Ti Vallecillo MD,MPH Internal Medicine Resident Y2 [place] pager [phone] Cardiology Attending I have seen and examined Mr. Crowder and discussed the patient's management with the reside nt and/or fellow. I reviewed the housestaff note above and agree with the documented findin gs and plan of care. Kyle Ambrose M.D. Ph.D. [facility] DEPARTMENT: Place of Service: Inpatient Hospital Date of Service: 09/30/2012 CSN: [id number] Suggested Modifiers: GC-Resident Tyrese Martínez MD - 0 09/30/2012 1:44 PM PSTCardiology Preliminary Procedure Note (Full report to follow) Primary Care Provider: No Pcp Per PATIENT Referring Provider: Nikki Wooten DO [employer] Staff: Tyrese Infante M.D. Procedure(s): Coronary Angiography Indications: NSTEMI Sudden cardiac Access: 5F RRA Estimated Blood Loss: 5 mL Medications: Fentanyl 25 mcg Route: IV Midazolam 2 mg Route: IV Nitroglycerin 200 mcg Route: IA Verapamil 2 mg Route: IA Contrast: 40 mL Visipaque Findings: Coronary Angiography: Severe three vessel CAD Intervention: None Complications: None Hemostasis: TR Band. Recommendations: Patient Status: Inpatient Usual post cath care. Follow up care as directed by inpatient cardiology service There is a significant discrepancy between the patient's central aortic pressure and the no n invasive cuff pressure. The central aortic pressure was 100 mm Hg while the cuff pressure despite an appropriately sized cuff was measured consistently at 175 mm systolic. Kike Delgadillo - 01/2013 12:20 PM PSTTransthoracic echocardiogram completed. Final report to follow. documented in this encou nter Plan of Treatment + +------+--------+ + + | Name | Type | Priori | Associated Diagnoses | Order Schedule | | | | ty | | | + +------+--------+ + + | CULTURE, BLOOD BACTI | Lab | Urgent | | As Needed for 1 | | & YEAST | | | | Occurrences starting | | | | | | 09/29/2012 | + +------+--------+ + + documented as of this encounter Procedures + +--------+ + + + | Procedure Name | Priori | Date/Time | Associated Diagnosis | Comments | | | ty | | | | + +--------+ + + + | CARDIAC CATH | | 10/03/2012 | | Results for this | | | | 3:47 PM | | procedure are in the | | | | PST | | results section. | + +--------+ + + + | CBC ONLY | Urgent | 10/03/2012 | | Results for this | | | | 6:12 AM | | procedure are in the | | | | PST | | results section. | + +--------+ + + + | INR | Urgent | 10/03/2012 | | Results for this | | | | 6:12 AM | | procedure are in the | | | | PST | | results section. | + +--------+ + + + | BASIC METABOLIC SET | Urgent | 10/03/2012 | | Results for this | | (NA, K, CL, TCO2, | | 6:12 AM | | procedure are in the | | BUN, CR, GLU, CA) | | PST | | results section. | + +--------+ + + + | CBC ONLY | Urgent | 10/03/2012 | | Results for this | | | | 6:12 AM | | procedure are in the | | | | PST | | results section. | + +--------+ + + + | APTT (ACT. PART. | Routin | 10/03/2012 | | Results for this | | THROMBO TIME) | e | 6:12 AM | | procedure are in the | | | | PST | | results section. | + +--------+ + + + | MAGNESIUM, PLASMA | Urgent | 10/03/2012 | | Results for this | | | | 6:12 AM | | procedure are in the | | | | PST | | results section. | + +--------+ + + + | APTT (ACT. PART. | Urgent | 10/02/2012 | | Results for this | | THROMBO TIME) | | 9:45 AM | | procedure are in the | | | | PST | | results section. | + +--------+ + + + | 12 LEAD ECG | Routin | 10/02/2012 | | Results for this | | | e | 7:32 AM | | procedure are in the | | | | PST | | results section. | + +--------+ + + + | CBC ONLY | Urgent | 10/02/2012 | | Results for this | | | | 3:55 AM | | procedure are in the | | | | PST | | results section. | + +--------+ + + + | INR | Urgent | 10/02/2012 | | Results for this | | | | 3:55 AM | | procedure are in the | | | | PST | | results section. | + +--------+ + + + | BASIC METABOLIC SET | Urgent | 10/02/2012 | | Results for this | | (NA, K, CL, TCO2, | | 3:55 AM | | procedure are in the | | BUN, CR, GLU, CA) | | PST | | results section. | + +--------+ + + + | CBC ONLY | Urgent | 10/02/2012 | | Results for this | | | | 3:55 AM | | procedure are in the | | | | PST | | results section. | + +--------+ + + + | APTT (ACT. PART. | Urgent | 10/02/2012 | | Results for this | | THROMBO TIME) | | 3:55 AM | | procedure are in the | | | | PST | | results section. | + +--------+ + + + | MAGNESIUM, PLASMA | Urgent | 10/02/2012 | | Results for this | | | | 3:55 AM | | procedure are in the | | | | PST | | results section. | + +--------+ + + + | APTT (ACT. PART. | Routin | 10/01/2012 | | Results for this | | THROMBO TIME) | e | 8:54 PM | | procedure are in the | | | | PST | | results section. | + +--------+ + + + | APTT (ACT. PART. | Routin | 10/01/2012 | | Results for this | | THROMBO TIME) | e | 6:16 PM | | procedure are in the | | | | PST | | results section. | + +--------+ + + + | APTT (ACT. PART. | Urgent | 10/01/2012 | | Results for this | | THROMBO TIME) | | 12:17 PM | | procedure are in the | | | | PST | | results section. | + +--------+ + + + | 12 LEAD ECG | Routin | 10/01/2012 | | Results for this | | | e | 9:21 AM | | procedure are in the | | | | PST | | results section. | + +--------+ + + + | APTT (ACT. PART. | Urgent | 10/01/2012 | | Results for this | | THROMBO TIME) | | 6:15 AM | | procedure are in the | | | | PST | | results section. | + +--------+ + + + | CBC ONLY | Urgent | 10/01/2012 | | Results for this | | | | 3:54 AM | | procedure are in the | | | | PST | | results section. | + +--------+ + + + | INR | Urgent | 10/01/2012 | | Results for this | | | | 3:54 AM | | procedure are in the | | | | PST | | results section. | + +--------+ + + + | BASIC METABOLIC SET | Urgent | 10/01/2012 | | Results for this | | (NA, K, CL, TCO2, | | 3:54 AM | | procedure are in the | | BUN, CR, GLU, CA) | | PST | | results section. | + +--------+ + + + | CBC ONLY | Urgent | 10/01/2012 | | Results for this | | | | 3:54 AM | | procedure are in the | | | | PST | | results section. | + +--------+ + + + | LIPID SET (TRIG, T | Urgent | 10/01/2012 | | Results for this | | CHOL, HDL, CALC LDL) | | 3:54 AM | | procedure are in the | | | | PST | | results section. | + +--------+ + + + | HEMOGLOBIN A1C, | Urgent | 10/01/2012 | | Results for this | | BLOOD | | 3:54 AM | | procedure are in the | | | | PST | | results section. | + +--------+ + + + | MAGNESIUM, PLASMA | Urgent | 10/01/2012 | | Results for this | | | | 3:54 AM | | procedure are in the | | | | PST | | results section. | + +--------+ + + + | APTT (ACT. PART. | Urgent | 09/30/2012 | | Results for this | | THROMBO TIME) | | 11:01 PM | | procedure are in the | | | | PST | | results section. | + +--------+ + + + | APTT (ACT. PART. | Urgent | 09/30/2012 | | Results for this | | THROMBO TIME) | | 8:55 PM | | procedure are in the | | | | PST | | results section. | + +--------+ + + + | CAPILLARY BLOOD | Routin | 09/30/2012 | | Results for this | | GLUCOSE (NO CHG), | e | 6:54 PM | | procedure are in the | | POC | | PST | | results section. | + +--------+ + + + | CAPILLARY BLOOD | Routin | 09/30/2012 | | Results for this | | GLUCOSE (NO CHG), | e | 10:06 AM | | procedure are in the | | POC | | PST | | results section. | + +--------+ + + + | TROPONIN I, PLASMA | Urgent | 09/30/2012 | | Results for this | | | | 10:02 AM | | procedure are in the | | | | PST | | results section. | + +--------+ + + + | APTT (ACT. PART. | Urgent | 09/30/2012 | | Results for this | | THROMBO TIME) | | 10:02 AM | | procedure are in the | | | | PST | | results section. | + +--------+ + + + | CAPILLARY BLOOD | Routin | 09/30/2012 | | Results for this | | GLUCOSE (NO CHG), | e | 5:58 AM | | procedure are in the | | POC | | PST | | results section. | + +--------+ + + + | APTT (ACT. PART. | Urgent | 09/30/2012 | | Results for this | | THROMBO TIME) | | 4:38 AM | | procedure are in the | | | | PST | | results section. | + +--------+ + + + | CBC ONLY | Urgent | 09/30/2012 | | Results for this | | | | 1:51 AM | | procedure are in the | | | | PST | | results section. | + +--------+ + + + | TROPONIN I, PLASMA | Urgent | 09/30/2012 | | Results for this | | | | 1:51 AM | | procedure are in the | | | | PST | | results section. | + +--------+ + + + | BASIC METABOLIC SET | Urgent | 09/30/2012 | | Results for this | | (NA, K, CL, TCO2, | | 1:51 AM | | procedure are in the | | BUN, CR, GLU, CA) | | PST | | results section. | + +--------+ + + + | CBC ONLY | Urgent | 09/30/2012 | | Results for this | | | | 1:51 AM | | procedure are in the | | | | PST | | results section. | + +--------+ + + + | TRANSTHORACIC | Routin | 09/30/2012 | | Results for this | | ECHOCARDIOGRAM, | e | 12:00 AM | | procedure are in the | | ADULT | | PST | | results section. | + +--------+ + + + | CAPILLARY BLOOD | Routin | 09/29/2012 | | Results for this | | GLUCOSE (NO CHG), | e | 10:43 PM | | procedure are in the | | POC | | PST | | results section. | + +--------+ + + + | X-RAY PORTABLE CHEST | Routin | 09/29/2012 | | Results for this | | 1 VIEW | e | 9:18 PM | | procedure are in the | | | | PST | | results section. | + +--------+ + + + | DRUG SCREEN,URINE;NO | Routin | 09/29/2012 | | Results for this | | CONFIRM | e | 8:59 PM | | procedure are in the | | | | PST | | results section. | + +--------+ + + + | UA, DIPSTICK ONLY | Urgent | 09/29/2012 | | Results for this | | | | 8:59 PM | | procedure are in the | | | | PST | | results section. | + +--------+ + + + | TSH | Urgent | 09/29/2012 | | Results for this | | | | 8:59 PM | | procedure are in the | | | | PST | | results section. | + +--------+ + + + | CAPILLARY BLOOD | Routin | 09/29/2012 | | Results for this | | GLUCOSE (NO CHG), | e | 7:42 PM | | procedure are in the | | POC | | PST | | results section. | + +--------+ + + + | 12 LEAD ECG | Routin | 09/29/2012 | | Results for this | | | e | 7:31 PM | | procedure are in the | | | | PST | | results section. | + +--------+ + + + | CBC AND AUTO DIFF | Urgent | 09/29/2012 | | Results for this | | | | 7:30 PM | | procedure are in the | | | | PST | | results section. | + +--------+ + + + | INR | Urgent | 09/29/2012 | | Results for this | | | | 7:30 PM | | procedure are in the | | | | PST | | results section. | + +--------+ + + + | CBC, WITH | Urgent | 09/29/2012 | | Results for this | | DIFFERENTIAL | | 7:30 PM | | procedure are in the | | | | PST | | results section. | + +--------+ + + + | TROPONIN I, PLASMA | Urgent | 09/29/2012 | | Results for this | | | | 7:30 PM | | procedure are in the | | | | PST | | results section. | + +--------+ + + + | COMPLETE METABOLIC | Urgent | 09/29/2012 | | Results for this | | SET | | 7:30 PM | | procedure are in the | | (NA,K,CL,CO2,BUN,CRE | | PST | | results section. | | AT,GLUC,CA,AST,ALT,B | | | | | | KYLE TOTAL,ALK | | | | | | PHOS,ALB,PROT TOTAL) | | | | | + +--------+ + + + | APTT (ACT. PART. | Urgent | 09/29/2012 | | Results for this | | THROMBO TIME) | | 7:30 PM | | procedure are in the | | | | PST | | results section. | + +--------+ + + + | MAGNESIUM, PLASMA | Urgent | 09/29/2012 | | Results for this | | | | 7:30 PM | | procedure are in the | | | | PST | | results section. | + +--------+ + + + | CARDIOLOGY | | 09/29/2012 | | Results for this | | | | 12:00 AM | | procedure are in the | | | | PST | | results section. | + +--------+ + + + documented in this encounter Results CARDIAC CATH (10/03/2012 3:47 PM PST) + + | Transcriptions | + + | Tyrese Infante MD - 10/02/2012 8:37 AM PST | | | | PATIENT NAME: | | Josef CROWDER | | | | PATIENT DATA: | | Height: 188 cm | | Weight: 153.0 kg | | BSA: 2.7 m2 | | | | DATE OF PROCEDURE: | | September 30, 2012 | | | | MRN: | | [id number] | | | | : | | 1945 | | | | PHYSICIAN: | | Tyrese Infante M.D., F.A.C.C. | | Service Superintendent, Medicine | | Division of Cardiovascular Medicine | | Director, Cardiac Catheterization [facility] | | | | REFERRING PHYSICIAN: | | Kyle Ambrose M.D., Ph.D. | | Service Superintendent, Medicine | | Division of Cardiovascular Medicine | | | | SUMMARY: | | Severe three vessel coronary artery disease. | | | | INDICATIONS AND CLINICAL BRIEF: | | Josef Crowder is a 67-year-old male who has presented with successfully | | resuscitated sudden cardiac . He is also noted to have a left | | ventricular mural thrombus. His cardiac biomarkers are mildly elevated. He | | is referred for coronary angiography. | | | | PROCEDURES PERFORMED: | | Selective coronary angiography. | | | | COMPLICATIONS: | | None. | | | | TECHNIQUE: | | ACCESS: | | Right radial artery, 5 Fr sheath | | | | CATHETERS: | | 5 Fr [place] radial angiographic catheter | | 5 Fr Aleksandr right 4 catheter | | | | Informed written consent was obtained. The patient's questions were | | answered. He was brought to the catheterization laboratory. A team pause | | was performed. The right wrist was cleaned and draped in the usual fashion. | | Anatomic and fluoroscopic landmarks were identified, and 1% lidocaine was | | injected locally. Utilizing a Seldinger double-wall puncture technique, a 5 | | Fr Terumo Catarina sheath was placed in the right radial artery. Nitroglycerin | | 200 mcg and verapamil 2 mg were injected intra-arterially through the side | | port of the sheath. A 5 Fr [place] radial angiographic catheter was advanced | | to the ascending aorta over a guidewire. The guidewire was removed, and the | | catheter was aspirated and flushed, and the left coronary artery was | | selectively cannulated and imaged in multiple projections. This catheter | | was unable to cannulate the right coronary artery. This was exchanged over | | an exchange length guidewire to a 5 Fr Aleksandr right 4 catheter, which was | | utilized to selectively cannulate and image the right coronary artery. | | films were then reviewed telephonically with the referring provider, | | Halie. The catheters were withdrawn, the sheath was withdrawn and | | satisfactory hemostasis was obtained utilizing a TR Band. The patient was | | transported to his room in stable condition. | | | | CONTRAST: | | Visipaque 40 mL | | | | FLUOROSCOPY TIME: | | 8.80 minutes | | | | FLUOROSCOPY DAP: | | 15,164.0 cGy cm2 | | | | MEDICATIONS: | | Fentanyl 25 mcg IV | | Midazolam 2 mg IV | | Nitroglycerin 200 mcg IA | | Verapamil 2 mg IA | | | | HEMODYNAMIC DATA: | | Aortic pressure: 97/67 mmHg, mean 81 | | Heart rate: 66 beats per minute | | | | CORONARY ANGIOGRAPHY: | | The left main coronary artery is a short vessel that bifurcates into left | | anterior descending and left circumflex coronary arteries. It has mild | | luminal irregularities. | | | | The left anterior descending coronary artery is a moderate-caliber vessel | | that gives rise to a large first diagonal branch, which has a 90% proximal | | stenosis and a 70% mid stenosis. Following this, the left anterior | | descending is occluded. The distal left anterior descending fills via | | [id number] collaterals and is noted to be a reasonable caliber vessel | | with no high-grade stenosis that is evident. | | | | The left circumflex coronary artery is a codominant vessel that gives rise | | to two small proximal obtuse marginal branches, a large obtuse marginal | | branch that arises from the mid portion, and a terminal obtuse marginal | | branch and a small posterior descending artery. The mid portion of the | | third obtuse marginal branch then rises from the mid segment and has a 90% | | stenosis. This vessel bifurcates distally into superior and inferior | | divisions and the mid portion of the inferior division has a 90% stenosis | | as well. The terminal obtuse marginal branch has a 70% proximal stenosis. | | | | The right coronary artery is a codominant vessel that gives rise to an | | acute marginal branch, a small posterior descending artery and a small | | posterior left ventricular branch. The mid portion of the right ventricular | | branch, which is moderate in caliber, has an 80% to 90% stenosis. The | | proximal right coronary artery has a 70% stenosis. The distal right | | coronary artery has a 90% stenosis. The vessel distal to this is small in | | caliber. | | | | CLINICAL DISPOSITION: | | 1. Usual post catheterization care. | | 2. Follow-up care as directed by the Inpatient Cardiology service. | | 3. Significant discrepancy was noted on this study between the patient's central | | aortic pressure, which was consistently in the 95 to 105 range, and the | | noninvasive cuff pressure, which was consistently noted to be in the 175 to | | 180 range. | | | | | | | | ATTENDING SURGEON'S ATTESTATION: | | Pursuant to Federal Medicare Requirements, I certify that Tyrese Infante, | | Soren, Tesha was present for the entire procedure and participated | | directly in the generation of this report. | | | | Tyrese Infante M.D., Tesha | | Service Superintendent, Medicine | | Division of Cardiovascular Medicine | | Director, [facility] | | | | ANNA/dima | | | | A | | [phone] | + + CBC (10/03/2012 6:12 AM PST) + +-------+ + + + | Component | Value | Ref Range | Performed | Pathologist | | | | | At | Signature | + +-------+ + + + | WHITE CELL | 10.0 | 4.4 - 11.0 K/cu | [facility] | | | COUNT | | mm | LABORATORY | | | | | | SERVICES, | | | | | | CORE | | + +-------+ + + + | RED CELL | 5.00 | 4.50 - 5.90 | [facility] | | | COUNT | | M/cu mm | LABORATORY | | | | | | SERVICES, | | | | | | CORE | | + +-------+ + + + | HEMOGLOBIN | 15.5 | 13.5 - 17.5 | [facility] | | | | | g/dL | LABORATORY | | | | | | SERVICES, | | | | | | CORE | | + +-------+ + + + | HEMATOCRIT | 46.2 | 41.0 - 53.0 % | [facility] | | | | | | LABORATORY | | | | | | SERVICES, | | | | | | CORE | | + +-------+ + + + | MCV | 92.4 | 80.0 - 96.0 fL | [facility] | | | | | | LABORATORY | | | | | | SERVICES, | | | | | | CORE | | + +-------+ + + + | MCHC | 33.5 | 33.4 - 35.5 | [facility] | | | | | g/dL | LABORATORY | | | | | | SERVICES, | | | | | | CORE | | + +-------+ + + + | RDW | 13.7 | 11.5 - 15.0 % | [facility] | | | | | | LABORATORY | | | | | | SERVICES, | | | | | | CORE | | + +-------+ + + + | PLATELET | 184 | 150 - 400 K/cu | [facility] | | | COUNT | | mm | LABORATORY | | | | | | SERVICES, | | | | | | CORE | | + +-------+ + + + + + | Specimen | + + | Blood - Blood | + + + + + + + | Performing | Address | City/State/Zipcode | Phone Number | | Organization | | | | + + + + + | [facility] | [address] | [place] [address] | | | SERVICES, CORE | [address] | | | + + + + + APTT (ACT. PART. THROMBO TIME) (10/03/2012 6:12 AM PST) + + + + + + | Component | Value | Ref Range | Performed | Pathologist | | | | | At | Signature | + + + + + + | APTT | 69.4 (H) | 26.0 - 36.0 | [facility] | | | | | seconds | LABORATORY | | | | | | SERVICES, | | | | | | CORE | | + + + + + + + + | Specimen | + + | Blood - Blood | + + + + + | Narrative | Performed At | + + + | APTT Therapeutic Range: (75 - | [facility] | | 120) sec Heparin levels of 0.35 - 0.7 U/mL | LABORATORY | | | SERVICES, CORE | + + + + + + + + | Performing | Address | City/State/Zipcode | Phone Number | | Organization | | | | + + + + + | [facility] | [address] | [place] [address] | | | SERVICES, CORE | [address] | | | + + + + + MAGNESIUM, PLASMA (10/03/2012 6:12 AM PST) + +-------+ + + + | Component | Value | Ref Range | Performed | Pathologist | | | | | At | Signature | + +-------+ + + + | MAGNESIUM,P | 2.2 | 1.8 - 2.5 mg/dL | [facility] | | | ELINAMA | | | LABORATORY | | | | | | TANIA, | | | | | | CORE | | + +-------+ + + + + + | Specimen | + + | Blood - Blood | + + + + + + + | Performing | Address | City/State/Zipcode | Phone Number | | Organization | | | | + + + + + | [facility] | [address] | [place] [address] | | | SERVICES, CORE | [address] | | | + + + + + INR (10/03/2012 6:12 AM PST) + + + + + + | Component | Value | Ref Range | Performed | Pathologist | | | | | At | Signature | + + + + + + | INR | 1.31 (H) | 0.90 - 1.20 INR | [facility] | | | | | | LABORATORY | | | | | | SERVICES, | | | | | | CORE | | + + + + + + + + | Specimen | + + | Blood - Blood | + + + + + | Narrative | Performed At | + + + | INR Therapeutic ranges for full anticoagulation: INR for | [facility] | | Venous Thromboembolism (2.0 - 3.0) INR INR for | LABORATORY | | most patients with mech. valves (2.5 - 3.5) INR | SERVICES, CORE | + + + + + + + + | Performing | Address | City/State/Zipcode | Phone Number | | Organization | | | | + + + + + | [facility] | [address] | [place] [address] | | | SERVICES, CORE | [address] | | | + + + + + BASIC METABOLIC SET (NA, K, CL, TCO2, BUN, CR, GLU, CA) (10/03/2012 6:12 AM PST) + + + + + + | Component | Value | Ref Range | Performed | Pathologist | | | | | At | Signature | + + + + + + | GLUCOSE, | 121 (H) | 60 - 99 mg/dL | [facility] | | | PLASMA | | | LABORATORY | | | (LAB) | | | SERVICES, | | | | | | CORE | | + + + + + + | BUN, PLASMA | 29 (H) | 6 - 20 mg/dL | [facility] | | | (LAB) | | | LABORATORY | | | | | | SERVICES, | | | | | | CORE | | + + + + + + | CREATININE | 1.76 (H) | 0.70 - 1.30 | [facility] | | | PLASMA | | mg/dL | LABORATORY | | | (LAB) | | | SERVICES, | | | | | | CORE | | + + + + + + | SODIUM, | 137 | 136 - 145 | [facility] | | | PLASMA | | mmol/L | LABORATORY | | | (LAB) | | | SERVICES, | | | | | | CORE | | + + + + + + | POTASSIUM, | 4.1 | 3.4 - 5.0 | [facility] | | | PLASMA | | mmol/L | LABORATORY | | | (LAB) | | | SERVICES, | | | | | | CORE | | + + + + + + | CHLORIDE, | 104 | 97 - 108 mmol/L | [facility] | | | PLASMA | | | LABORATORY | | | (LAB) | | | SERVICES, | | | | | | CORE | | + + + + + + | TOTAL CO2, | 21 | 21 - 32 mmol/L | [facility] | | | PLASMA | | | LABORATORY | | | (LAB) | | | SERVICES, | | | | | | CORE | | + + + + + + | CALCIUM, | 9.0 | 8.6 - 10.2 | [facility] | | | PLASMA | | mg/dL | LABORATORY | | | (LAB) | | | SERVICES, | | | | | | CORE | | + + + + + + | ANION GAP | 12 (H) | 4 - 11 mmol/L | [facility] | | | | | | LABORATORY | | | | | | SERVICES, | | | | | | CORE | | + + + + + + | POTASSIUM | No Hemo | | [facility] | | | CMNT | | | LABORATORY | | | | | | SERVICES, | | | | | | CORE | | + + + + + + + + | Specimen | + + | Blood - Blood | + + + + + + + | Performing | Address | City/State/Zipcode | Phone Number | | Organization | | | | + + + + + | [facility] | [address] | [place] [address] | | | TANIA, TOI | [address] | | | + + + + + APTT (ACT. PART. THROMBO TIME) (10/02/2012 9:45 AM PST) + + + + + + | Component | Value | Ref Range | Performed | Pathologist | | | | | At | Signature | + + + + + + | APTT | 92.3 (H) | 26.0 - 36.0 | [facility] | | | | | seconds | LABORATORY | | | | | | SERVICES, | | | | | | CORE | | + + + + + + + + | Specimen | + + | Blood - Blood | + + + + + | Narrative | Performed At | + + + | APTT Therapeutic Range: (75 - | [facility] | | 120) sec Heparin levels of 0.35 - 0.7 U/mL | LABORATORY | | | TOI MARIN | + + + + + + + + | Performing | Address | City/State/Zipcode | Phone Number | | Organization | | | | + + + + + | [facility] | [address] | [place] [address] | | | TOI MARIN | [address] | | | + + + + + 12 LEAD ECG (10/02/2012 7:32 AM PST) + + + + + + | Component | Value | Ref Range | Performed | Pathologist | | | | | At | Signature | + + + + + + | VENTRICULAR | 55 | BPM | [facility] | | | RATE | | | OF | | | | | | CARDIOLOGY | | + + + + + + | ATRIAL RATE | 55 | BPM | [facility] | | | | | | OF | | | | | | CARDIOLOGY | | + + + + + + | P-R | 184 | ms | [facility] | | | INTERVAL | | | OF | | | | | | CARDIOLOGY | | + + + + + + | QRS | 108 | ms | [facility] | | | DURATION | | | OF | | | | | | CARDIOLOGY | | + + + + + + | QT | 434 | ms | [facility] | | | | | | OF | | | | | | CARDIOLOGY | | + + + + + + | QTC | 415 | ms | [facility] | | | | | | OF | | | | | | CARDIOLOGY | | + + + + + + | P AXIS | 24 | degrees | [facility] | | | | | | OF | | | | | | CARDIOLOGY | | + + + + + + | R AXIS | 94 | degrees | [facility] | | | | | | OF | | | | | | CARDIOLOGY | | + + + + + + | T AXIS | 91 | degrees | [facility] | | | | | | OF | | | | | | CARDIOLOGY | | + + + + + + | EKG | Poor data quality, | | [facility] | | | DIAGNOSIS | interpretation may be | | OF | | | | adversely affectedSinus | | CARDIOLOGY | | | | bradycardiaInferior | | | | | | infarct , age | | | | | | undeterminedAnterolatera | | | | | | l infarct , age | | | | | | undeterminedAbnormal | | | | | | ECGConfirmed by | | | | | | PAKO ROSA ([id number]) on | | | | | | 10/03/2012 10:00:18 PM | | | | + + + + + + + + | Specimen | + + | | + + + + + | Narrative | Performed At | + + + | Please click | [facility] | | on view image for the detailed interpretation from [employer] results. | CARDIOLOGY | + + + + + + + + | Performing | Address | City/State/Zipcode | Phone Number | | Organization | | | | + + + + + | [facility] | [address] | [place], [place] | | | CARDIOLOGY | [address] | [address] | | + + + + + CBC (10/02/2012 3:55 AM PST) + +-------+ + + + | Component | Value | Ref Range | Performed | Pathologist | | | | | At | Signature | + +-------+ + + + | WHITE CELL | 8.5 | 4.4 - 11.0 K/cu | [facility] | | | COUNT | | mm | LABORATORY | | | | | | SERVICES, | | | | | | CORE | | + +-------+ + + + | RED CELL | 4.93 | 4.50 - 5.90 | [facility] | | | COUNT | | M/cu mm | LABORATORY | | | | | | SERVICES, | | | | | | CORE | | + +-------+ + + + | HEMOGLOBIN | 15.2 | 13.5 - 17.5 | [facility] | | | | | g/dL | LABORATORY | | | | | | SERVICES, | | | | | | CORE | | + +-------+ + + + | HEMATOCRIT | 45.1 | 41.0 - 53.0 % | [facility] | | | | | | LABORATORY | | | | | | SERVICES, | | | | | | CORE | | + +-------+ + + + | MCV | 91.5 | 80.0 - 96.0 fL | [facility] | | | | | | LABORATORY | | | | | | SERVICES, | | | | | | CORE | | + +-------+ + + + | MCHC | 33.7 | 33.4 - 35.5 | [facility] | | | | | g/dL | LABORATORY | | | | | | SERVICES, | | | | | | CORE | | + +-------+ + + + | RDW | 13.6 | 11.5 - 15.0 % | [facility] | | | | | | LABORATORY | | | | | | SERVICES, | | | | | | CORE | | + +-------+ + + + | PLATELET | 176 | 150 - 400 K/cu | [facility] | | | COUNT | | mm | LABORATORY | | | | | | SERVICES, | | | | | | CORE | | + +-------+ + + + + + | Specimen | + + | Blood - Blood | + + + + + + + | Performing | Address | City/State/Zipcode | Phone Number | | Organization | | | | + + + + + | [facility] | [address] | [place] [address] | | | SERVICESTOI | [address] | | | + + + + + APTT (ACT. PART. THROMBO TIME) (10/02/2012 3:55 AM PST) + + + + + + | Component | Value | Ref Range | Performed | Pathologist | | | | | At | Signature | + + + + + + | APTT | 100.0 (H) | 26.0 - 36.0 | [facility] | | | | | seconds | LABORATORY | | | | | | SERVICES, | | | | | | CORE | | + + + + + + + + | Specimen | + + | Blood - Blood | + + + + + | Narrative | Performed At | + + + | APTT Therapeutic Range: (75 - | [facility] | | 120) sec Heparin levels of 0.35 - 0.7 U/mL | LABORATORY | | | TOI MARIN | + + + + + + + + | Performing | Address | City/State/Zipcode | Phone Number | | Organization | | | | + + + + + | [facility] | [address] | [place] [address] | | | TOI MARIN | [address] | | | + + + + + MAGNESIUM, PLASMA (10/02/2012 3:55 AM PST) + +-------+ + + + | Component | Value | Ref Range | Performed | Pathologist | | | | | At | Signature | + +-------+ + + + | MAGNESIUM,P | 2.2 | 1.8 - 2.5 mg/dL | [facility] | | | LASMA | | | LABORATORY | | | | | | SERVICES, | | | | | | CORE | | + +-------+ + + + + + | Specimen | + + | Blood - Blood | + + + + + + + | Performing | Address | City/State/Zipcode | Phone Number | | Organization | | | | + + + + + | [facility] | [address] | [place] [address] | | | SERVICES, CORE | [address] | | | + + + + + INR (10/02/2012 3:55 AM PST) + +-------+ + + + | Component | Value | Ref Range | Performed | Pathologist | | | | | At | Signature | + +-------+ + + + | INR | 1.10 | 0.90 - 1.20 INR | [facility] | | | | | | LABORATORY | | | | | | SERVICES, | | | | | | CORE | | + +-------+ + + + + + | Specimen | + + | Blood - Blood | + + + + + | Narrative | Performed At | + + + | INR Therapeutic ranges for full anticoagulation: INR for | [facility] | | Venous Thromboembolism (2.0 - 3.0) INR INR for | LABORATORY | | most patients with mech. valves (2.5 - 3.5) INR | TOI MARIN | + + + + + + + + | Performing | Address | City/State/Zipcode | Phone Number | | Organization | | | | + + + + + | [facility] | [address] | [place] [address] | | | TOI MARIN | [address] | | | + + + + + BASIC METABOLIC SET (NA, K, CL, TCO2, BUN, CR, GLU, CA) (10/02/2012 3:55 AM PST) + + + + + + | Component | Value | Ref Range | Performed | Pathologist | | | | | At | Signature | + + + + + + | GLUCOSE, | 109 (H) | 60 - 99 mg/dL | [facility] | | | PLASMA | | | LABORATORY | | | (LAB) | | | SERVICES, | | | | | | CORE | | + + + + + + | BUN, PLASMA | 29 (H) | 6 - 20 mg/dL | [facility] | | | (LAB) | | | LABORATORY | | | | | | SERVICES, | | | | | | CORE | | + + + + + + | CREATININE | 2.02 (H) | 0.70 - 1.30 | [facility] | | | PLASMA | | mg/dL | LABORATORY | | | (LAB) | | | SERVICES, | | | | | | CORE | | + + + + + + | SODIUM, | 138 | 136 - 145 | [facility] | | | PLASMA | | mmol/L | LABORATORY | | | (LAB) | | | SERVICES, | | | | | | CORE | | + + + + + + | POTASSIUM, | 4.1 | 3.4 - 5.0 | [facility] | | | PLASMA | | mmol/L | LABORATORY | | | (LAB) | | | SERVICES, | | | | | | CORE | | + + + + + + | CHLORIDE, | 103 | 97 - 108 mmol/L | [facility] | | | PLASMA | | | LABORATORY | | | (LAB) | | | SERVICES, | | | | | | CORE | | + + + + + + | TOTAL CO2, | 26 | 21 - 32 mmol/L | [facility] | | | PLASMA | | | LABORATORY | | | (LAB) | | | SERVICES, | | | | | | CORE | | + + + + + + | CALCIUM, | 9.0 | 8.6 - 10.2 | [facility] | | | PLASMA | | mg/dL | LABORATORY | | | (LAB) | | | SERVICES, | | | | | | CORE | | + + + + + + | ANION GAP | 9 | 4 - 11 mmol/L | [facility] | | | | | | LABORATORY | | | | | | SERVICES, | | | | | | CORE | | + + + + + + | POTASSIUM | No Hemo | | [facility] | | | CMNT | | | LABORATORY | | | | | | SERVICES, | | | | | | CORE | | + + + + + + + + | Specimen | + + | Blood - Blood | + + + + + + + | Performing | Address | City/State/Zipcode | Phone Number | | Organization | | | | + + + + + | [facility] | [address] | [place] [address] | | | SERVICES, CORE | [address] | | | + + + + + APTT (ACT. PART. THROMBO TIME) (10/01/2012 8:54 PM PST) + + + + + + | Component | Value | Ref Range | Performed | Pathologist | | | | | At | Signature | + + + + + + | APTT | 199.1 () | 26.0 - 36.0 | [facility] | | | | | seconds | LABORATORY | | | | | | SERVICES, | | | | | | CORE | | + + + + + + + + | Specimen | + + | Blood - Blood | + + + + + | Narrative | Performed At | + + + | APTT Therapeutic Range: (75 - | [facility] | | 120) sec Heparin levels of 0.35 - 0.7 U/mL | LABORATORY | | | SERVICES, CORE | + + + + + + + + | Performing | Address | City/State/Zipcode | Phone Number | | Organization | | | | + + + + + | [facility] | [address] | [place] [address] | | | SERVICES, TOI | [address] | | | + + + + + APTT (ACT. PART. THROMBO TIME) (10/01/2012 6:16 PM PST) + + + + + + | Component | Value | Ref Range | Performed | Pathologist | | | | | At | Signature | + + + + + + | APTT | 192.2 () | 26.0 - 36.0 | [facility] | | | | | seconds | LABORATORY | | | | | | SERVICES, | | | | | | CORE | | + + + + + + + + | Specimen | + + | Blood - Blood | + + + + + | Narrative | Performed At | + + + | APTT Therapeutic Range: (75 - | [facility] | | 120) sec Heparin levels of 0.35 - 0.7 U/mL | LABORATORY | | | SERVICES, CORE | + + + + + + + + | Performing | Address | City/State/Zipcode | Phone Number | | Organization | | | | + + + + + | [facility] | [address] | [place] [address] | | | SERVICES, CORE | [address] | | | + + + + + APTT (ACT. PART. THROMBO TIME) (10/01/2012 12:17 PM PST) + + + + + + | Component | Value | Ref Range | Performed | Pathologist | | | | | At | Signature | + + + + + + | APTT | 64.8 (H) | 26.0 - 36.0 | [facility] | | | | | seconds | LABORATORY | | | | | | SERVICES, | | | | | | CORE | | + + + + + + + + | Specimen | + + | Blood - Blood | + + + + + | Narrative | Performed At | + + + | APTT Therapeutic Range: (75 - | [facility] | | 120) sec Heparin levels of 0.35 - 0.7 U/mL | LABORATORY | | | SERVICES, CORE | + + + + + + + + | Performing | Address | City/State/Zipcode | Phone Number | | Organization | | | | + + + + + | [facility] | [address] | [place] [address] | | | SERVICES, CORE | [address] | | | + + + + + 12 LEAD ECG (10/01/2012 9:21 AM PST) + + + + + + | Component | Value | Ref Range | Performed | Pathologist | | | | | At | Signature | + + + + + + | VENTRICULAR | 56 | BPM | [facility] | | | RATE | | | OF | | | | | | CARDIOLOGY | | + + + + + + | ATRIAL RATE | 56 | BPM | [facility] | | | | | | OF | | | | | | CARDIOLOGY | | + + + + + + | P-R | 166 | ms | [facility] | | | INTERVAL | | | OF | | | | | | CARDIOLOGY | | + + + + + + | QRS | 108 | ms | [facility] | | | DURATION | | | OF | | | | | | CARDIOLOGY | | + + + + + + | QT | 424 | ms | [facility] | | | | | | OF | | | | | | CARDIOLOGY | | + + + + + + | QTC | 409 | ms | [facility] | | | | | | OF | | | | | | CARDIOLOGY | | + + + + + + | P AXIS | 41 | degrees | [facility] | | | | | | OF | | | | | | CARDIOLOGY | | + + + + + + | R AXIS | 97 | degrees | [facility] | | | | | | OF | | | | | | CARDIOLOGY | | + + + + + + | T AXIS | 104 | degrees | [facility] | | | | | | OF | | | | | | CARDIOLOGY | | + + + + + + | EKG | Sinus | | [facility] | | | DIAGNOSIS | bradycardiaPossible | | OF | | | | Inferior infarct , age | | CARDIOLOGY | | | | undeterminedAnterolatera | | | | | | l infarct , age | | | | | | undeterminedAbnormal | | | | | | ECG"I have personally | | | | | | interpreted this report, | | | | | | either alone or with a | | | | | | trainee."Confirmed by | | | | | | HEIDI CASTILLO ([id number]) | | | | | | on 10/02/2012 8:49:48 AM | | | | + + + + + + + + | Specimen | + + | | + + + + + | Narrative | Performed At | + + + | Please click | [facility] | | on view image for the detailed interpretation from [employer] results. | CARDIOLOGY | + + + + + + + + | Performing | Address | City/State/Zipcode | Phone Number | | Organization | | | | + + + + + | [facility] | [address] | [place], [place] | | | CARDIOLOGY | [address] | [phone] | | + + + + + APTT (ACT. PART. THROMBO TIME) (10/01/2012 6:15 AM PST) + + + + + + | Component | Value | Ref Range | Performed | Pathologist | | | | | At | Signature | + + + + + + | APTT | 83.3 (H) | 26.0 - 36.0 | [facility] | | | | | seconds | LABORATORY | | | | | | SERVICES, | | | | | | CORE | | + + + + + + + + | Specimen | + + | Blood - Blood | + + + + + | Narrative | Performed At | + + + | Specimen Hemolyzed. APTT Therapeutic Range: | [facility] | | (75 - 120) sec Heparin levels of 0.35 - 0.7 U/mL | LABORATORY | | | SERVICES, CORE | + + + + + + + + | Performing | Address | City/State/Zipcode | Phone Number | | Organization | | | | + + + + + | [facility] | [address] | [place] [address] | | | SERVICES, CORE | [address] | | | + + + + + CBC (10/01/2012 3:54 AM PST) + +-------+ + + + | Component | Value | Ref Range | Performed | Pathologist | | | | | At | Signature | + +-------+ + + + | WHITE CELL | 7.7 | 4.4 - 11.0 K/cu | [facility] | | | COUNT | | mm | LABORATORY | | | | | | SERVICES, | | | | | | CORE | | + +-------+ + + + | RED CELL | 4.75 | 4.50 - 5.90 | [facility] | | | COUNT | | M/cu mm | LABORATORY | | | | | | SERVICES, | | | | | | CORE | | + +-------+ + + + | HEMOGLOBIN | 14.7 | 13.5 - 17.5 | [facility] | | | | | g/dL | LABORATORY | | | | | | SERVICES, | | | | | | CORE | | + +-------+ + + + | HEMATOCRIT | 43.6 | 41.0 - 53.0 % | [facility] | | | | | | LABORATORY | | | | | | SERVICES, | | | | | | CORE | | + +-------+ + + + | MCV | 91.9 | 80.0 - 96.0 fL | [facility] | | | | | | LABORATORY | | | | | | SERVICES, | | | | | | CORE | | + +-------+ + + + | MCHC | 33.6 | 33.4 - 35.5 | [facility] | | | | | g/dL | LABORATORY | | | | | | SERVICES, | | | | | | CORE | | + +-------+ + + + | RDW | 13.9 | 11.5 - 15.0 % | [facility] | | | | | | LABORATORY | | | | | | SERVICES, | | | | | | CORE | | + +-------+ + + + | PLATELET | 161 | 150 - 400 K/cu | [facility] | | | COUNT | | mm | LABORATORY | | | | | | SERVICES, | | | | | | CORE | | + +-------+ + + + + + | Specimen | + + | Blood - Blood | + + + + + + + | Performing | Address | City/State/Zipcode | Phone Number | | Organization | | | | + + + + + | [facility] | [address] | [place] [address] | | | SERVICES, CORE | [address] | | | + + + + + MAGNESIUM, PLASMA (10/01/2012 3:54 AM PST) + +-------+ + + + | Component | Value | Ref Range | Performed | Pathologist | | | | | At | Signature | + +-------+ + + + | MAGNESIUM,P | 1.9 | 1.8 - 2.5 mg/dL | [facility] | | | [facility] | | | LABORATORY | | | | | | SERVICES, | | | | | | CORE | | + +-------+ + + + + + | Specimen | + + | Blood - Blood | + + + + + + + | Performing | Address | City/State/Zipcode | Phone Number | | Organization | | | | + + + + + | [facility] | [address] | [place] [address] | | | SERVICES, CORE | [address] | | | + + + + + INR (10/01/2012 3:54 AM PST) + +-------+ + + + | Component | Value | Ref Range | Performed | Pathologist | | | | | At | Signature | + +-------+ + + + | INR | 1.10 | 0.90 - 1.20 INR | [facility] | | | | | | LABORATORY | | | | | | SERVICES, | | | | | | CORE | | + +-------+ + + + + + | Specimen | + + | Blood - Blood | + + + + + | Narrative | Performed At | + + + | INR Therapeutic ranges for full anticoagulation: INR for | [facility] | | Venous Thromboembolism (2.0 - 3.0) INR INR for | LABORATORY | | most patients with mech. valves (2.5 - 3.5) INR | SERVICES, CORE | + + + + + + + + | Performing | Address | City/State/Zipcode | Phone Number | | Organization | | | | + + + + + | [facility] | [address] | [place] [address] | | | SERVICES, CORE | [address] | | | + + + + + BASIC METABOLIC SET (NA, K, CL, TCO2, BUN, CR, GLU, CA) (10/01/2012 3:54 AM PST) + + + + + + | Component | Value | Ref Range | Performed | Pathologist | | | | | At | Signature | + + + + + + | GLUCOSE, | 92 | 60 - 99 mg/dL | [facility] | | | PLASMA | | | LABORATORY | | | (LAB) | | | SERVICES, | | | | | | CORE | | + + + + + + | BUN, PLASMA | 22 (H) | 6 - 20 mg/dL | [facility] | | | (LAB) | | | LABORATORY | | | | | | SERVICES, | | | | | | CORE | | + + + + + + | CREATININE | 1.49 (H) | 0.70 - 1.30 | [facility] | | | PLASMA | | mg/dL | LABORATORY | | | (LAB) | | | SERVICES, | | | | | | CORE | | + + + + + + | SODIUM, | 140 | 136 - 145 | [facility] | | | PLASMA | | mmol/L | LABORATORY | | | (LAB) | | | SERVICES, | | | | | | CORE | | + + + + + + | POTASSIUM, | 3.8 | 3.4 - 5.0 | [facility] | | | PLASMA | | mmol/L | LABORATORY | | | (LAB) | | | SERVICES, | | | | | | CORE | | + + + + + + | CHLORIDE, | 107 | 97 - 108 mmol/L | [facility] | | | PLASMA | | | LABORATORY | | | (LAB) | | | SERVICES, | | | | | | CORE | | + + + + + + | TOTAL CO2, | 24 | 21 - 32 mmol/L | [facility] | | | PLASMA | | | LABORATORY | | | (LAB) | | | SERVICES, | | | | | | CORE | | + + + + + + | CALCIUM, | 8.3 (L) | 8.6 - 10.2 | [facility] | | | PLASMA | | mg/dL | LABORATORY | | | (LAB) | | | SERVICES, | | | | | | CORE | | + + + + + + | ANION GAP | 9 | 4 - 11 mmol/L | [facility] | | | | | | LABORATORY | | | | | | SERVICES, | | | | | | CORE | | + + + + + + | POTASSIUM | No Hemo | | [facility] | | | CMNT | | | LABORATORY | | | | | | SERVICES, | | | | | | CORE | | + + + + + + + + | Specimen | + + | Blood - Blood | + + + + + + + | Performing | Address | City/State/Zipcode | Phone Number | | Organization | | | | + + + + + | [facility] | [address] | [place] [address] | | | SERVICES, CORE | [address] | | | + + + + + LIPID SET (TRIG, T CHOL, HDL, CALC LDL) (10/01/2012 3:54 AM PST) + +---------+ + + + | Component | Value | Ref Range | Performed | Pathologist | | | | | At | Signature | + +---------+ + + + | CHOLESTEROL | 133 | <200 mg/dL | [facility] | | | (LAB) | | | LABORATORY | | | | | | SERVICES, | | | | | | CORE | | + +---------+ + + + | TRIGLYCERID | 141 | <150 mg/dL | [facility] | | | ES | | | LABORATORY | | | | | | SERVICES, | | | | | | CORE | | + +---------+ + + + | HDL | 30 (L) | >40 mg/dL | [facility] | | | [facility] | | | LABORATORY | | | | | | SERVICES, | | | | | | CORE | | + +---------+ + + + | HDL CMNT | No Hemo | | [facility] | | | | | | LABORATORY | | | | | | SERVICES, | | | | | | CORE | | + +---------+ + + + | LDL | 75 | <100 mg/dL | [facility] | | | [facility] | | | LABORATORY | | | , | | | SERVICES, | | | CALCULATED | | | CORE | | + +---------+ + + + | VLDL | 28 | <31 mg/dL | [facility] | | | [facility] | | | LABORATORY | | | , | | | SERVICES, | | | CALCULATED | | | CORE | | + +---------+ + + + | NON-HDL | 103 | <130 mg/dL | [facility] | | | [facility] | | | LABORATORY | | | | | | SERVICES, | | | | | | CORE | | + +---------+ + + + + + | Specimen | + + | Blood - Blood | + + + + + | Narrative | Performed At | + + + | Cholesterol Reference Range: Desirable: <200 | [facility] | | mg/dL Borderline High: 200 - 239 mg/dL | LABORATORY | | High: >=240 mg/dL LDL Cholesterol | SERVICES, CORE | | Reference Range: Optimal: <100 mg/dL | | | Near Optimal: 100-129 mg/dL Borderline High: 130-159 | | | mg/dL High: 160-189 mg/dL | | | Very High: >=190 mg/dL non-HDL Cholesterol Reference Range: | | | Optimal: <130 mg/dL Near Optimal: | | | 130-159 mg/dL Borderline High: 160-189 mg/dL | | | High: 190-209 mg/dL Very High: | | | >=210 mg/dL Triglyceride Reference Range: | | | Normal: <150 mg/dL Borderline High: 150-199 mg/dL | | | High: 200-499 mg/dL Very High: >=500 mg/dL | | | HDL Reference Range: High Risk: <40 mg/dL | | | Desirable: >=60 mg/dL | | + + + + + + + + | Performing | Address | City/State/Zipcode | Phone Number | | Organization | | | | + + + + + | [facility] | [address] | [place] [address] | | | SERVICES, CORE | [address] | | | + + + + + HEMOGLOBIN A1C, BLOOD (10/01/2012 3:54 AM PST) + + + + + + | Component | Value | Ref Range | Performed | Pathologist | | | | | At | Signature | + + + + + + | HEMOGLOBIN | 6.0 (H)Comment: Hgb A1c | <=5.6 % | [facility] | | | A1C | Interpretive Information | | [facility] - | | | | If you are | | [place] | | | | screening for diabetes: | | | | | | <5.7 | | | | | | Non-diabetic | | | | | | 5.7-6.4 | | | | | | Prediabetes | | | | | | >6.4 | | | | | | Diabetes, if confirmed | | | | | | For monitoring of | | | | | | diabetes control: | | | | | | <7.0 | | | | | | Usual goal of treatment; | | | | | | low risk for | | | | | | complications | | | | | | 7.0-8.0 Some | | | | | | increased risk for | | | | | | long-term complications | | | | | | >8.0 | | | | | | Higher risk of | | | | | | complications; strongly | | | | | | consider | | | | | | | | | | | | intensifying therapy. | | | | + + + + + + + + | Specimen | + + | Blood - Blood | + + + + + + + | Performing | Address | City/State/Zipcode | Phone Number | | Organization | | | | + + + + + | [facility] - | [address] | [place] [address] | | | [place] | | | | + + + + + APTT (ACT. PART. THROMBO TIME) (09/30/2012 11:01 PM PST) + + + + + + | Component | Value | Ref Range | Performed | Pathologist | | | | | At | Signature | + + + + + + | APTT | 120.6 (H) | 26.0 - 36.0 | [facility] | | | | | seconds | LABORATORY | | | | | | SERVICES, | | | | | | CORE | | + + + + + + + + | Specimen | + + | Blood - Blood | + + + + + | Narrative | Performed At | + + + | Specimen Hemolyzed. APTT Therapeutic Range: | [facility] | | (75 - 120) sec Heparin levels of 0.35 - 0.7 U/mL | LABORATORY | | | SERVICES, CORE | + + + + + + + + | Performing | Address | City/State/Zipcode | Phone Number | | Organization | | | | + + + + + | [facility] | [address] | [place] [address] | | | SERVICES, CORE | [address] | | | + + + + + APTT (ACT. PART. THROMBO TIME) (09/30/2012 8:55 PM PST) + + + + + + | Component | Value | Ref Range | Performed | Pathologist | | | | | At | Signature | + + + + + + | APTT | 95.5 (H) | 26.0 - 36.0 | [facility] | | | | | seconds | LABORATORY | | | | | | SERVICES, | | | | | | CORE | | + + + + + + + + | Specimen | + + | Blood - Blood | + + + + + | Narrative | Performed At | + + + | APTT Therapeutic Range: (75 - | [facility] | | 120) sec Heparin levels of 0.35 - 0.7 U/mL | LABORATORY | | | SERVICES, CORE | + + + + + + + + | Performing | Address | City/State/Zipcode | Phone Number | | Organization | | | | + + + + + | [facility] | [address] | [place] [address] | | | SERVICES, CORE | [address] | | | + + + + + CAPILLARY BLOOD GLUCOSE (NO CHG), POC (09/30/2012 6:54 PM PST) + +---------+ + + + | Component | Value | Ref Range | Performed | Pathologist | | | | | At | Signature | + +---------+ + + + | BLOOD | 123 (H) | 60 - 99 mg/dL | [facility] - | | | GLUCOSE, | | | [facility] | | | POC | | | [facility] | | | | | | OF CARE | | | | | | TESTS | | + +---------+ + + + + + | Specimen | + + | | + + + + + + + | Performing | Address | City/State/Zipcode | Phone Number | | Organization | | | | + + + + + | [facility] | [address] | [place], [place] | | | [facility] OF [facility] | [facility] | [address] | | | TESTS | | | | + + + + + CAPILLARY BLOOD GLUCOSE (NO CHG), POC (09/30/2012 10:06 AM PST) + +---------+ + + + | Component | Value | Ref Range | Performed | Pathologist | | | | | At | Signature | + +---------+ + + + | BLOOD | 123 (H) | 60 - 99 mg/dL | [facility] - | | | GLUCOSE, | | | [facility] | | | POC | | | [facility] | | | | | | OF CARE | | | | | | TESTS | | + +---------+ + + + + + | Specimen | + + | | + + + + + + + | Performing | Address | City/State/Zipcode | Phone Number | | Organization | | | | + + + + + | [facility] | [address] | [place], [place] | | | [facility] OF CARE | [address] | [address] | | | TESTS | | | | + + + + + APTT (ACT. PART. THROMBO TIME) (09/30/2012 10:02 AM PST) + + + + + + | Component | Value | Ref Range | Performed | Pathologist | | | | | At | Signature | + + + + + + | APTT | 111.1 (H) | 26.0 - 36.0 | [facility] | | | | | seconds | LABORATORY | | | | | | SERVICES, | | | | | | CORE | | + + + + + + + + | Specimen | + + | Blood - Blood | + + + + + | Narrative | Performed At | + + + | APTT Therapeutic Range: (75 - | [facility] | | 120) sec Heparin levels of 0.35 - 0.7 U/mL | LABORATORY | | | [facility] [place] | + + + + + + + + | Performing | Address | City/State/Zipcode | Phone Number | | Organization | | | | + + + + + | [facility] | [address] | [place] [address] | | | [place] | [address] | | | + + + + + TROPONIN I, PLASMA (09/30/2012 10:02 AM PST) + +-------+ + + + | Component | Value | Ref Range | Performed | Pathologist | | | | | At | Signature | + +-------+ + + + | TROPONIN I | 0.43 | <0.80 ng/mL | [facility] | | | | | | LABORATORY | | | | | | SERVICES, | | | | | | CORE | | + +-------+ + + + + + | Specimen | + + | Blood - Blood | + + + + + + + | Performing | Address | City/State/Zipcode | Phone Number | | Organization | | | | + + + + + | [facility] | [address] | [place] [address] | | | [place] | [address] | | | + + + + + CAPILLARY BLOOD GLUCOSE (NO CHG), POC (09/30/2012 5:58 AM PST) + +---------+ + + + | Component | Value | Ref Range | Performed | Pathologist | | | | | At | Signature | + +---------+ + + + | BLOOD | 101 (H) | 60 - 99 mg/dL | [facility] - | | | GLUCOSE, | | | [facility] | | | POC | | | [facility] | | | | | | OF CARE | | | | | | TESTS | | + +---------+ + + + + + | Specimen | + + | | + + + + + + + | Performing | Address | City/State/Zipcode | Phone Number | | Organization | | | | + + + + + | [facility] | [address] | [place], [place] | | | [facility] OF [facility] | [address] | [address] | | | TESTS | | | | + + + + + APTT (ACT. PART. THROMBO TIME) (09/30/2012 4:38 AM PST) + + + + + + | Component | Value | Ref Range | Performed | Pathologist | | | | | At | Signature | + + + + + + | APTT | 97.8 (H) | 26.0 - 36.0 | [facility] | | | | | seconds | LABORATORY | | | | | | SERVICES, | | | | | | CORE | | + + + + + + + + | Specimen | + + | Blood - Blood | + + + + + | Narrative | Performed At | + + + | APTT Therapeutic Range: (75 - | [facility] | | 120) sec Heparin levels of 0.35 - 0.7 U/mL | LABORATORY | | | SERVICES, CORE | + + + + + + + + | Performing | Address | City/State/Zipcode | Phone Number | | Organization | | | | + + + + + | [facility] | [address] | [place] [address] | | | SERVICES, CORE | [address] | | | + + + + + CBC (09/30/2012 1:51 AM PST) + +-------+ + + + | Component | Value | Ref Range | Performed | Pathologist | | | | | At | Signature | + +-------+ + + + | WHITE CELL | 8.6 | 4.4 - 11.0 K/cu | [facility] | | | COUNT | | mm | LABORATORY | | | | | | SERVICES, | | | | | | CORE | | + +-------+ + + + | RED CELL | 4.82 | 4.50 - 5.90 | [facility] | | | COUNT | | M/cu mm | LABORATORY | | | | | | SERVICES, | | | | | | CORE | | + +-------+ + + + | HEMOGLOBIN | 14.9 | 13.5 - 17.5 | [facility] | | | | | g/dL | LABORATORY | | | | | | SERVICES, | | | | | | CORE | | + +-------+ + + + | HEMATOCRIT | 43.8 | 41.0 - 53.0 % | [facility] | | | | | | LABORATORY | | | | | | SERVICES, | | | | | | CORE | | + +-------+ + + + | MCV | 90.9 | 80.0 - 96.0 fL | [facility] | | | | | | LABORATORY | | | | | | SERVICES, | | | | | | CORE | | + +-------+ + + + | MCHC | 34.1 | 33.4 - 35.5 | [facility] | | | | | g/dL | LABORATORY | | | | | | SERVICES, | | | | | | CORE | | + +-------+ + + + | RDW | 13.3 | 11.5 - 15.0 % | [facility] | | | | | | LABORATORY | | | | | | SERVICES, | | | | | | CORE | | + +-------+ + + + | PLATELET | 170 | 150 - 400 K/cu | [facility] | | | COUNT | | mm | LABORATORY | | | | | | SERVICES, | | | | | | CORE | | + +-------+ + + + + + | Specimen | + + | Blood - Blood | + + + + + + + | Performing | Address | City/State/Zipcode | Phone Number | | Organization | | | | + + + + + | [facility] | [address] | [place] [address] | | | SERVICES, CORE | [address] | | | + + + + + BASIC METABOLIC SET (NA, K, CL, TCO2, BUN, CR, GLU, CA) (09/30/2012 1:51 AM PST) + + + + + + | Component | Value | Ref Range | Performed | Pathologist | | | | | At | Signature | + + + + + + | GLUCOSE, | 151 (H) | 60 - 99 mg/dL | [facility] | | | PLASMA | | | LABORATORY | | | (LAB) | | | SERVICES, | | | | | | CORE | | + + + + + + | BUN, PLASMA | 25 (H) | 6 - 20 mg/dL | [facility] | | | (LAB) | | | LABORATORY | | | | | | SERVICES, | | | | | | CORE | | + + + + + + | CREATININE | 1.50 (H) | 0.70 - 1.30 | [facility] | | | PLASMA | | mg/dL | LABORATORY | | | (LAB) | | | SERVICES, | | | | | | CORE | | + + + + + + | SODIUM, | 136 | 136 - 145 | [facility] | | | PLASMA | | mmol/L | LABORATORY | | | (LAB) | | | SERVICES, | | | | | | CORE | | + + + + + + | POTASSIUM, | 4.3 | 3.4 - 5.0 | [facility] | | | PLASMA | | mmol/L | LABORATORY | | | (LAB) | | | SERVICES, | | | | | | CORE | | + + + + + + | CHLORIDE, | 105 | 97 - 108 mmol/L | [facility] | | | PLASMA | | | LABORATORY | | | (LAB) | | | SERVICES, | | | | | | CORE | | + + + + + + | TOTAL CO2, | 23 | 21 - 32 mmol/L | [facility] | | | PLASMA | | | LABORATORY | | | (LAB) | | | SERVICES, | | | | | | CORE | | + + + + + + | CALCIUM, | 8.5 (L) | 8.6 - 10.2 | [facility] | | | PLASMA | | mg/dL | LABORATORY | | | (LAB) | | | SERVICES, | | | | | | CORE | | + + + + + + | ANION GAP | 8 | 4 - 11 mmol/L | [facility] | | | | | | LABORATORY | | | | | | SERVICES, | | | | | | CORE | | + + + + + + | POTASSIUM | No Hemo | | [facility] | | | CMNT | | | LABORATORY | | | | | | SERVICES, | | | | | | CORE | | + + + + + + + + | Specimen | + + | Blood - Blood | + + + + + + + | Performing | Address | City/State/Zipcode | Phone Number | | Organization | | | | + + + + + | [facility] | [address] | [place] [address] | | | SERVICES, CORE | [address] | | | + + + + + TROPONIN I, PLASMA (09/30/2012 1:51 AM PST) + +-------+ + + + | Component | Value | Ref Range | Performed | Pathologist | | | | | At | Signature | + +-------+ + + + | TROPONIN I | 0.52 | <0.80 ng/mL | [facility] | | | | | | LABORATORY | | | | | | SERVICES, | | | | | | CORE | | + +-------+ + + + + + | Specimen | + + | Blood - Blood | + + + + + + + | Performing | Address | City/State/Zipcode | Phone Number | | Organization | | | | + + + + + | [facility] | [address] | [place] [address] | | | SERVICES, CORE | [address] | | | + + + + + TRANSTHORACIC ECHOCARDIOGRAM, ADULT (09/30/2012 12:00 AM PST) + + + | Narrative | Performed At | + + + | | | | | | + + + + + | Procedure Note | + + | Diana Farley - 09/30/2012 1:58 PM PST | + + CAPILLARY BLOOD GLUCOSE (NO CHG), POC (09/29/2012 10:43 PM PST) + +---------+ + + + | Component | Value | Ref Range | Performed | Pathologist | | | | | At | Signature | + +---------+ + + + | BLOOD | 148 (H) | 60 - 99 mg/dL | [facility] - | | | GLUCOSE, | | | [facility] | | | POC | | | [facility]INT | | | | | | OF CARE | | | | | | TESTS | | + +---------+ + + + + + | Specimen | + + | | + + + + + + + | Performing | Address | City/State/Zipcode | Phone Number | | Organization | | | | + + + + + | [facility] | [address] | [place], [place] | | | [facility] CARE | [address] | [address] | | | TESTS | | | | + + + + + X-RAY PORTABLE CHEST 1 VIEW (09/29/2012 9:18 PM PST) + + + + + + | Component | Value | Ref Range | Performed | Pathologist | | | | | At | Signature | + + + + + + | X-RAY | STUDY: ND CHEST 1 VIEW | | | | | PORTABLE | 09/29/12 21:18:00 | | | | | CHEST 1 | HISTORY: 67-year-old | | | | | VIEW | male, syncope. | | | | | | COMPARISON: None. | | | | | | FINDINGS: The right | | | | | | costophrenic angle | | | | | | projects off the field | | | | | | of view. Thecardiac | | | | | | silhouette is enlarged. | | | | | | The descending aorta | | | | | | is mildlytortuous. The | | | | | | visualized lungs are | | | | | | clear without | | | | | | focalconsolidation. | | | | | | There is no pleural | | | | | | effusion, pulmonary | | | | | | edema, orpneumothorax. | | | | | | No acute osseous | | | | | | abnormality is | | | | | | identified. IMPRESSION: | | | | | | Clear lungs. | | | | | | Cardiomegaly. Attending | | | | | | Radiologists: Obed Vaughn | | | | | | SorenAuthor: Steven | | | | | | Soren English I have | | | | | | personally viewed this | | | | | | procedure/exam, reviewed | | | | | | this report,and made | | | | | | changes to it where | | | | | | appropriate. | | | | | | Final/Electronically | | | | | | signed / Obed Vaughn | | | | | | 09/30/2012 9:17 AM | | | | + + + + + + + + | Specimen | + + | | + + + +---------+ + + | Performing | Address | City/State/Zipcode | Phone Number | | Organization | | | | + +---------+ + + | [facility] | | | | | RADIOLOGY | | | | + +---------+ + + DRUG SCREEN,URINE;NO CONFIRM (09/29/2012 8:59 PM PST) + + + + + + | Component | Value | Ref Range | Performed | Pathologist | | | | | At | Signature | + + + + + + | AMPHETAMINE | Negative | Negative | [facility] | | | , URINE | | | LABORATORY | | | | | | SERVICES, | | | | | | CORE | | + + + + + + | BARBITURATE | Negative | Negative | [facility] | | | S, URINE | | | LABORATORY | | | | | | SERVICES, | | | | | | CORE | | + + + + + + | BENZODIAZEP | Negative | Negative | [facility] | | | FERMIN, URINE | | | LABORATORY | | | | | | SERVICES, | | | | | | CORE | | + + + + + + | COCAINE, | Negative | Negative | [facility] | | | URINE | | | LABORATORY | | | | | | SERVICES, | | | | | | CORE | | + + + + + + | OPIATE, | Negative | Negative | [facility] | | | URINE | | | LABORATORY | | | | | | SERVICES, | | | | | | CORE | | + + + + + + | CANNABINOID | Negative | Negative | [facility] | | | S, URINE | | | LABORATORY | | | | | | SERVICES, | | | | | | CORE | | + + + + + + | METHADONE, | Negative | Negative | [facility] | | | URINE | | | LABORATORY | | | | | | SERVICES, | | | | | | CORE | | + + + + + + | OXYCODONE, | Negative | Negative | [facility] | | | URINE | | | LABORATORY | | | | | | SERVICES, | | | | | | CORE | | + + + + + + + + | Specimen | + + | Urine - Urine | + + + + + + + | Performing | Address | City/State/Zipcode | Phone Number | | Organization | | | | + + + + + | [facility] | [address] | [place] [address] | | | [place] | [address] | | | + + + + + TSH (09/29/2012 8:59 PM PST) + +-------+ + + + | Component | Value | Ref Range | Performed | Pathologist | | | | | At | Signature | + +-------+ + + + | TSH | 1.12 | 0.34 - 5.60 | [facility] | | | | | mcIU/mL | [facility] - | | | | | | [place] | | + +-------+ + + + + + | Specimen | + + | Blood - Blood | + + + + + + + | Performing | Address | City/State/Zipcode | Phone Number | | Organization | | | | + + + + + | [facility] | [address] | [place] [address] | | | [place] | | | | + + + + + UASAGAR ONLY (09/29/2012 8:59 PM PST) + + + + + + | Component | Value | Ref Range | Performed | Pathologist | | | | | At | Signature | + + + + + + | COLOR(UR) | Yellow | (none) | [facility] | | | | | | LABORATORY | | | | | | SERVICES, | | | | | | CORE | | + + + + + + | APPEARANCE | Sl.Cloudy | (none) | [facility] | | | | | | LABORATORY | | | | | | SERVICES, | | | | | | CORE | | + + + + + + | GLUCOSE(UR) | Negative | Negative, 50.0 | [facility] | | | | | mg/dL | LABORATORY | | | | | | SERVICES, | | | | | | CORE | | + + + + + + | PROTEIN(LAB | Negative | Negative, 30.0 | [facility] | | | ) | | mg/dL | LABORATORY | | | | | | SERVICES, | | | | | | CORE | | + + + + + + | BILIRUBIN | Negative | Negative | [facility] | | | | | | LABORATORY | | | | | | SERVICES, | | | | | | CORE | | + + + + + + | UROBILINOGE | <2.0 | <2.0 mg/dL | [facility] | | | N | | | LABORATORY | | | | | | SERVICES, | | | | | | CORE | | + + + + + + | PH(UR) | 5.0 | 5.0 - 8.0 | [facility] | | | | | | LABORATORY | | | | | | SERVICES, | | | | | | CORE | | + + + + + + | BLOOD | Negative | Negative | [facility] | | | | | | LABORATORY | | | | | | SERVICES, | | | | | | CORE | | + + + + + + | KETONES | Negative | Negative mg/dL | [facility] | | | | | | LABORATORY | | | | | | SERVICES, | | | | | | CORE | | + + + + + + | NITRITES | Negative | Negative | [facility] | | | | | | LABORATORY | | | | | | SERVICES, | | | | | | CORE | | + + + + + + | LEUKOCYTE | Negative | Negative | [facility] | | | ESTERASE | | | LABORATORY | | | | | | SERVICES, | | | | | | CORE | | + + + + + + | SPECIFIC | 1.013 | 1.005 - 1.030 | [facility] | | | GRAVITY | | | LABORATORY | | | | | | SERVICES, | | | | | | CORE | | + + + + + + + + | Specimen | + + | Urine - Urine | + + + + + + + | Performing | Address | City/State/Zipcode | Phone Number | | Organization | | | | + + + + + | [facility] | [address] | [place] [address] | | | SERVICES, CORE | [address] | | | + + + + + CAPILLARY BLOOD GLUCOSE (NO CHG), POC (09/29/2012 7:42 PM PST) + +---------+ + + + | Component | Value | Ref Range | Performed | Pathologist | | | | | At | Signature | + +---------+ + + + | BLOOD | 137 (H) | 60 - 99 mg/dL | [facility] - | | | GLUCOSE, | | | [facility] | | | POC | | | [facility] | | | | | | OF CARE | | | | | | TESTS | | + +---------+ + + + + + | Specimen | + + | | + + + + + + + | Performing | Address | City/State/Zipcode | Phone Number | | Organization | | | | + + + + + | [facility] | [address] | [place], [place] | | | [facility] OF [facility] | [address] | [address] | | | TESTS | | | | + + + + + 12 LEAD ECG (09/29/2012 7:31 PM PST) + + + + + + | Component | Value | Ref Range | Performed | Pathologist | | | | | At | Signature | + + + + + + | VENTRICULAR | 72 | BPM | [facility] | | | RATE | | | OF | | | | | | CARDIOLOGY | | + + + + + + | ATRIAL RATE | 72 | BPM | [facility] | | | | | | OF | | | | | | CARDIOLOGY | | + + + + + + | P-R | 150 | ms | [facility] | | | INTERVAL | | | OF | | | | | | CARDIOLOGY | | + + + + + + | QRS | 90 | ms | [facility] | | | DURATION | | | OF | | | | | | CARDIOLOGY | | + + + + + + | QT | 386 | ms | [facility] | | | | | | OF | | | | | | CARDIOLOGY | | + + + + + + | QTC | 422 | ms | [facility] | | | | | | OF | | | | | | CARDIOLOGY | | + + + + + + | P AXIS | 42 | degrees | [facility] | | | | | | OF | | | | | | CARDIOLOGY | | + + + + + + | R AXIS | 105 | degrees | [facility] | | | | | | OF | | | | | | CARDIOLOGY | | + + + + + + | T AXIS | 123 | degrees | [facility] | | | | | | OF | | | | | | CARDIOLOGY | | + + + + + + | EKG | Normal sinus | | [facility] | | | DIAGNOSIS | rhythmPossible Inferior | | OF | | | | infarct , age | | CARDIOLOGY | | | | undeterminedAnterolatera | | | | | | l infarct , age | | | | | | undeterminedAbnormal | | | | | | ECG"I have personally | | | | | | interpreted this report, | | | | | | either alone or with a | | | | | | trainee."Confirmed by | | | | | | HEIDI CASTILLO ([id number]) | | | | | | on 10/02/2012 8:48:23 AM | | | | + + + + + + + + | Specimen | + + | | + + + + + | Narrative | Performed At | + + + | Please click | [facility] | | on view image for the detailed interpretation from [employer] results. | CARDIOLOGY | + + + + + + + + | Performing | Address | City/State/Zipcode | Phone Number | | Organization | | | | + + + + + | [facility] | [address] | [place], [place] | | | CARDIOLOGY | [address] | [address] | | + + + + + APTT (ACT. PART. THROMBO TIME) (09/29/2012 7:30 PM PST) + + + + + + | Component | Value | Ref Range | Performed | Pathologist | | | | | At | Signature | + + + + + + | APTT | 48.3 (H) | 26.0 - 36.0 | [facility] | | | | | seconds | LABORATORY | | | | | | SERVICES, | | | | | | CORE | | + + + + + + + + | Specimen | + + | Blood - Blood | + + + + + | Narrative | Performed At | + + + | APTT Therapeutic Range: (75 - | [facility] | | 120) sec Heparin levels of 0.35 - 0.7 U/mL | LABORATORY | | | SERVICES, CORE | + + + + + + + + | Performing | Address | City/State/Zipcode | Phone Number | | Organization | | | | + + + + + | [facility] | [address] | [place] [address] | | | SERVICES, CORE | [address] | | | + + + + + CBC AND AUTO DIFF (09/29/2012 7:30 PM PST) + +--------+ + + + | Component | Value | Ref Range | Performed | Pathologist | | | | | At | Signature | + +--------+ + + + | WHITE CELL | 9.4 | 4.4 - 11.0 K/cu | [facility] | | | COUNT | | mm | LABORATORY | | | | | | SERVICES, | | | | | | CORE | | + +--------+ + + + | RED CELL | 5.27 | 4.50 - 5.90 | [facility] | | | COUNT | | M/cu mm | LABORATORY | | | | | | SERVICES, | | | | | | CORE | | + +--------+ + + + | HEMOGLOBIN | 16.4 | 13.5 - 17.5 | [facility] | | | | | g/dL | LABORATORY | | | | | | SERVICES, | | | | | | CORE | | + +--------+ + + + | HEMATOCRIT | 48.2 | 41.0 - 53.0 % | [facility] | | | | | | LABORATORY | | | | | | SERVICES, | | | | | | CORE | | + +--------+ + + + | MCV | 91.4 | 80.0 - 96.0 fL | [facility] | | | | | | LABORATORY | | | | | | SERVICES, | | | | | | CORE | | + +--------+ + + + | MCHC | 34.0 | 33.4 - 35.5 | [facility] | | | | | g/dL | LABORATORY | | | | | | SERVICES, | | | | | | CORE | | + +--------+ + + + | RDW | 13.3 | 11.5 - 15.0 % | [facility] | | | | | | LABORATORY | | | | | | SERVICES, | | | | | | CORE | | + +--------+ + + + | PLATELET | 188 | 150 - 400 K/cu | [facility] | | | COUNT | | mm | LABORATORY | | | | | | SERVICES, | | | | | | CORE | | + +--------+ + + + | NEUTROPHIL | 75 (H) | 50 - 70 % | [facility] | | | % | | | LABORATORY | | | | | | SERVICES, | | | | | | CORE | | + +--------+ + + + | LYMPHOCYTE | 17 (L) | 18 - 42 % | [facility] | | | % | | | LABORATORY | | | | | | SERVICES, | | | | | | CORE | | + +--------+ + + + | MONOCYTE % | 7 | 2 - 8 % | [facility] | | | | | | LABORATORY | | | | | | SERVICES, | | | | | | CORE | | + +--------+ + + + | EOS % | 1 | 1 - 3 % | [facility] | | | | | | LABORATORY | | | | | | SERVICES, | | | | | | CORE | | + +--------+ + + + | BASO % | 0 | 0 - 2 % | [facility] | | | | | | LABORATORY | | | | | | SERVICES, | | | | | | CORE | | + +--------+ + + + | NEUTROPHIL | 7.0 | 1.8 - 7.7 K/cu | [facility] | | | # | | mm | LABORATORY | | | | | | SERVICES, | | | | | | CORE | | + +--------+ + + + | LYMPHOCYTE | 1.6 | 1.0 - 4.8 K/cu | [facility] | | | # | | mm | LABORATORY | | | | | | SERVICES, | | | | | | CORE | | + +--------+ + + + | MONOCYTE # | 0.6 | 0.0 - 0.8 K/cu | [facility] | | | | | mm | LABORATORY | | | | | | SERVICES, | | | | | | CORE | | + +--------+ + + + | EOS # | 0.1 | 0.0 - 0.5 K/cu | [facility] | | | | | mm | LABORATORY | | | | | | SERVICES, | | | | | | CORE | | + +--------+ + + + | BASO # | 0.0 | 0.0 - 0.1 K/cu | [facility] | | | | | mm | LABORATORY | | | | | | SERVICES, | | | | | | CORE | | + +--------+ + + + + + | Specimen | + + | Blood - Blood | + + + + + + + | Performing | Address | City/State/Zipcode | Phone Number | | Organization | | | | + + + + + | [facility] | [address] | [place] [address] | | | SERVICES, CORE | [address] | | | + + + + + TROPONIN I, PLASMA (09/29/2012 7:30 PM PST) + +-------+ + + + | Component | Value | Ref Range | Performed | Pathologist | | | | | At | Signature | + +-------+ + + + | TROPONIN I | 0.45 | <0.80 ng/mL | [facility] | | | | | | LABORATORY | | | | | | SERVICES, | | | | | | CORE | | + +-------+ + + + + + | Specimen | + + | Blood - Blood | + + + + + + + | Performing | Address | City/State/Zipcode | Phone Number | | Organization | | | | + + + + + | [facility] | [address] | [place] [address] | | | SERVICES, CORE | [address] | | | + + + + + INR (09/29/2012 7:30 PM PST) + +-------+ + + + | Component | Value | Ref Range | Performed | Pathologist | | | | | At | Signature | + +-------+ + + + | INR | 1.15 | 0.90 - 1.20 INR | [facility] | | | | | | LABORATORY | | | | | | SERVICES, | | | | | | CORE | | + +-------+ + + + + + | Specimen | + + | Blood - Blood | + + + + + | Narrative | Performed At | + + + | INR Therapeutic ranges for full anticoagulation: INR for | [facility] | | Venous Thromboembolism (2.0 - 3.0) INR INR for | LABORATORY | | most patients with mech. valves (2.5 - 3.5) INR | SERVICES, CORE | + + + + + + + + | Performing | Address | City/State/Zipcode | Phone Number | | Organization | | | | + + + + + | [email or web address] | [address] | [place] [address] | | | SERVICES, CORE | [address] | | | + + + + + MAGNESIUM, PLASMA (09/29/2012 7:30 PM PST) + +-------+ + + + | Component | Value | Ref Range | Performed | Pathologist | | | | | At | Signature | + +-------+ + + + | MAGNESIUM,P | 1.9 | 1.8 - 2.5 mg/dL | [facility] | | | LASMA | | | LABORATORY | | | | | | SERVICES, | | | | | | CORE | | + +-------+ + + + + + | Specimen | + + | Blood - Blood | + + + + + + + | Performing | Address | City/State/Zipcode | Phone Number | | Organization | | | | + + + + + | [facility] | [address] | [place] [address] | | | [place]I [place] | [address] | | | + + + + + COMPLETE METABOLIC SET (NA,K,CL,CO2,BUN,CREAT,GLUC,CA,AST,ALT,BILI TOTAL,ALK PHOS,ALB,PROT TOTAL) (09/29/2012 7:30 PM PST) + + + + + + | Component | Value | Ref Range | Performed | Pathologist | | | | | At | Signature | + + + + + + | GLUCOSE, | 146 (H) | 60 - 99 mg/dL | [facility] | | | PLASMA | | | LABORATORY | | | (LAB) | | | SERVICES, | | | | | | CORE | | + + + + + + | BUN, PLASMA | 24 (H) | 6 - 20 mg/dL | [facility] | | | (LAB) | | | LABORATORY | | | | | | SERVICES, | | | | | | CORE | | + + + + + + | CREATININE | 1.50 (H) | 0.70 - 1.30 | [facility] | | | PLASMA | | mg/dL | LABORATORY | | | (LAB) | | | SERVICES, | | | | | | CORE | | + + + + + + | SODIUM, | 137 | 136 - 145 | [facility] | | | PLASMA | | mmol/L | LABORATORY | | | (LAB) | | | SERVICES, | | | | | | CORE | | + + + + + + | POTASSIUM, | 4.2 | 3.4 - 5.0 | [facility] | | | PLASMA | | mmol/L | LABORATORY | | | (LAB) | | | SERVICES, | | | | | | CORE | | + + + + + + | CHLORIDE, | 104 | 97 - 108 mmol/L | [facility] | | | PLASMA | | | LABORATORY | | | (LAB) | | | SERVICES, | | | | | | CORE | | + + + + + + | TOTAL CO2, | 20 (L) | 21 - 32 mmol/L | [facility] | | | PLASMA | | | LABORATORY | | | (LAB) | | | SERVICES, | | | | | | CORE | | + + + + + + | CALCIUM, | 8.9 | 8.6 - 10.2 | [facility] | | | PLASMA | | mg/dL | LABORATORY | | | (LAB) | | | SERVICES, | | | | | | CORE | | + + + + + + | BILIRUBIN | 1.3 (H) | 0.3 - 1.2 mg/dL | [facility] | | | TOTAL | | | LABORATORY | | | | | | SERVICES, | | | | | | CORE | | + + + + + + | TOTAL | 7.5 | 6.1 - 7.9 g/dL | [facility] | | | PROTEIN, | | | LABORATORY | | | PLASMA | | | SERVICES, | | | (LAB) | | | CORE | | + + + + + + | ALBUMIN, | 4.0 | 3.5 - 4.7 g/dL | [facility] | | | PLASMA | | | LABORATORY | | | (LAB) | | | SERVICES, | | | | | | CORE | | + + + + + + | ALK PHOS | 55 (L) | 56 - 119 U/L | [facility] | | | | | | LABORATORY | | | | | | SERVICES, | | | | | | CORE | | + + + + + + | AST(SGOT) | 38 | 15 - 41 U/L | [facility] | | | | | | LABORATORY | | | | | | SERVICES, | | | | | | CORE | | + + + + + + | ALT (SGPT) | 43 | 12 - 60 U/L | [facility] | | | | | | LABORATORY | | | | | | SERVICES, | | | | | | CORE | | + + + + + + | ANION | 13 (H) | 4 - 11 mmol/L | [facility] | | | GAP(ALB | | | LABORATORY | | | CORRECTED) | | | SERVICES, | | | | | | CORE | | + + + + + + | POTASSIUM | Sl Hemo | | [facility] | | | CMNT | | | LABORATORY | | | | | | SERVICES, | | | | | | CORE | | + + + + + + | AST CMNT | Sl Hemo | | [facility] | | | | | | LABORATORY | | | | | | SERVICES, | | | | | | CORE | | + + + + + + | ANION GAP | 13 (H) | 4 - 11 mmol/L | [facility] | | | | | | LABORATORY | | | | | | SERVICES, | | | | | | CORE | | + + + + + + + + | Specimen | + + | Blood - Blood | + + + + + | Narrative | Performed At | + + + | Sample hemolyzed. Results for K, Total Bili, Direct Bili, AST, | [facility] | | LDH, or HDL may be inaccurate. Refer to comment under test result. | LABORATORY | | | [facility] | + + + + + + + + | Performing | Address | City/State/Zipcode | Phone Number | | Organization | | | | + + + + + | [facility] | [address] | [place] [address] | | | SERVICES, TOI | [address] | | | + + + + + CARDIOLOGY (09/29/2012 12:00 AM PST) + + + | Narrative | Performed At | + + + | | | | | | + + + + + | Procedure Note | + + | Diana Farley - 10/06/2012 12:39 PM PST | + + documented in this encounter Visit Diagnoses + + | Diagnosis | + + | Arrhythmia - Primary Cardiac dysrhythmia, unspecified | + + documented in this encounter Administered Medications + +--------+ +--------+------+------+ | Medication Order | MAR | Action | Dose | Rate | Site | | | Action | Date | | | | + +--------+ +--------+------+------+ | amiodarone (aka CORDARONE) | Given | 10/03/19 | 400 mg | | | | tablet 400 mg 400 mg, oral, | | 13 4:04 | | | | | THREE TIMES DAILY, First dose on | | PM PST | | | | | 09/30/12 at 2200, Until | | | | | | | Discontinued | | | | | | + +--------+ +--------+------+------+ +-------+ +--------+---+---+ | Given | 10/03/19 | 400 mg | | | | | 13 9:14 | | | | | | AM PST | | | | +-------+ +--------+---+---+ | Given | 10/02/19 | 400 mg | | | | | 13 10:12 | | | | | | PM PST | | | | +-------+ +--------+---+---+ +---+---+ | | | +---+---+ + + + +--------+--------+---+ | amiodarone 1.8 mg/mL in | Rate/Dos | 09/30/19 | 0.5 | 16.67 | | | dextrose 5% IV infusion 0.5 | e Change | 13 8:00 | mg/min | mL/hr | | | mg/min (rounded to 16.67 mL/hr), | | PM PST | | | | | intravenous, CONTINUOUS, Starting | | | | | | | 09/29/12 at 2130, Until Sat | | | | | | | 09/30/12 at 2130 | | | | | | + + + +--------+--------+---+ + + +--------+--------+---+ | New Bag | 09/29/19 | 0.5 | 16.67 | | | | 13 9:30 | mg/min | mL/hr | | | | PM PST | | | | + + +--------+--------+---+ | Rate/Dose Change | 09/29/19 | 0.5 | 16.67 | | | | 13 8:30 | mg/min | mL/hr | | | | PM PST | | | | + + +--------+--------+---+ +---+---+ | | | +---+---+ + +-------+ +--------+---+---+ | aspirin tablet 325 mg 325 mg, | Given | 10/03/19 | 325 mg | | | | oral, DAILY, First dose on Sat | | 13 9:14 | | | | | 09/30/12 at 0900, Until | | AM PST | | | | | Discontinued | | | | | | + +-------+ +--------+---+---+ +-------+ +--------+---+---+ | Given | 10/02/19 | 325 mg | | | | | 13 8:58 | | | | | | AM PST | | | | +-------+ +--------+---+---+ | Given | 10/01/19 | 325 mg | | | | | 13 8:12 | | | | | | AM PST | | | | +-------+ +--------+---+---+ +---+---+ | | | +---+---+ + +-------+ +-------+---+---+ | atorvastatin (aka LIPITOR) | Given | 10/03/19 | 80 mg | | | | tablet 80 mg 80 mg, oral, DAILY, | | 13 9:14 | | | | | First dose on 09/30/12 at | | AM PST | | | | | 1600, Until Discontinued | | | | | | + +-------+ +-------+---+---+ +-------+ +-------+---+---+ | Given | 10/02/19 | 80 mg | | | | | 13 8:58 | | | | | | AM PST | | | | +-------+ +-------+---+---+ | Given | 10/01/19 | 80 mg | | | | | 13 8:12 | | | | | | AM PST | | | | +-------+ +-------+---+---+ +---+---+ | | | +---+---+ + +---------+ +------+--------+---+ | bumetanide (aka BUMEX) | New Bag | 10/01/19 | 1 mg | mL/hr | | | injection 1 mg 1 mg, | | 13 11:53 | | | | | intravenous, ONCE, 1 dose, Sun | | AM PST | | | | | 10/01/12 at 1200 | | | | | | + +---------+ +------+--------+---+ +---+---+ | | | +---+---+ + +-------+ +--------+---+---+ | enoxaparin (aka LOVENOX) | Given | 10/03/19 | 150 mg | | | | injection 150 mg 150 mg, | | 13 5:17 | | | | | subcutaneous, ONCE, 1 dose, Tue | | PM PST | | | | | 10/03/12 at 1700 | | | | | | + +-------+ +--------+---+---+ +---+---+ | | | +---+---+ + + + +--------+--------+---+ | heparin bolus from continuous | Bolus | 10/03/19 | 6,000 | mL/hr | | | infusion (protocol) 6,000 Units | from | 13 7:45 | Units | | | | intravenous, BOLUS PRN, Starting | Same Bag | AM PST | | | | | 09/29/12 at 2228, Until Tue | | | | | | | 10/03/12 at 1541, (aPTT 56-75 sec) | | | | | | | OR (heparin level 0.1-0.34 | | | | | | | units/mL) | | | | | | + + + +--------+--------+---+ + + +--------+--------+---+ | Bolus from Same Bag | 10/01/19 | 6,000 | mL/hr | | | | 13 1:36 | Units | | | | | PM PST | | | | + + +--------+--------+---+ +---+---+ | | | +---+---+ + +---------+ + +-------+---+ | heparin in D5W IV infusion | New Bag | 10/03/19 | 1,850 | 18.5 | | | 25,000 units/250 mL (100 | | 13 7:43 | Units/hr | mL/hr | | | units/mL) 1-3,000 Units/hr | | AM PST | | | | | (rounded to 0.01-30 mL/hr), | | | | | | | intravenous, CONTINUOUS, Starting | | | | | | | 09/29/12 at 2300, Until Tue | | | | | | | 10/03/12 at 1541 | | | | | | + +---------+ + +-------+---+ +---------+ + +-------+---+ | New Bag | 10/02/19 | 1,550 | 15.5 | | | | 13 3:53 | Units/hr | mL/hr | | | | PM PST | | | | +---------+ + +-------+---+ | New Bag | 10/01/19 | 1,550 | 15.5 | | | | 13 10:47 | Units/hr | mL/hr | | | | PM PST | | | | +---------+ + +-------+---+ +---+---+ | | | +---+---+ + +-------+ +--------+---+ + | influenza HD vaccine (aka | Given | 10/02/19 | 0.5 mL | | Left | | FLUZONE HIGH-DOSE) (PF) IM | | 13 10:59 | | | Shoulder | | injection 0.5 mL 0.5 mL, | | AM PST | | | | | intramuscular, ONE TIME IN THE | | | | | | | MORNING, 1 dose, First dose on | | | | | | | 10/02/12 at 0900 | | | | | | + +-------+ +--------+---+ + +---+---+ | | | +---+---+ + +-------+ +------+---+---+ | lisinopril (aka PRINIVIL) | Given | 10/03/19 | 5 mg | | | | tablet 5 mg 5 mg, oral, DAILY, | | 13 9:14 | | | | | First dose on 09/30/12 at 1745, | | AM PST | | | | | Until Discontinued | | | | | | + +-------+ +------+---+---+ +-------+ +------+---+---+ | Given | 10/02/19 | 5 mg | | | | | 13 8:58 | | | | | | AM PST | | | | +-------+ +------+---+---+ | Given | 10/01/19 | 5 mg | | | | | 13 8:12 | | | | | | AM PST | | | | +-------+ +------+---+---+ +---+---+ | | | +---+---+ + +-------+ +---------+---+---+ | metoprolol (aka LOPRESSOR) | Given | 10/01/19 | 6.25 mg | | | | tablet 6.25 mg 6.25 mg, oral, | | 13 11:52 | | | | | EVERY 6 HOURS, First dose on Fri | | AM PST | | | | | 09/29/12 at 2300, Until | | | | | | | Discontinued | | | | | | + +-------+ +---------+---+---+ +-------+ +---------+---+---+ | Given | 10/01/19 | 6.25 mg | | | | | 13 5:00 | | | | | | AM PST | | | | +-------+ +---------+---+---+ | Given | 09/30/19 | 6.25 mg | | | | | 13 9:26 | | | | | | PM PST | | | | +-------+ +---------+---+---+ +---+---+ | | | +---+---+ + +-------+ +---------+---+---+ | metoprolol (aka LOPRESSOR) | Given | 10/02/19 | 6.25 mg | | | | tablet 6.25 mg 6.25 mg, oral, | | 13 10:59 | | | | | EVERY 6 HOURS, First dose (after | | AM PST | | | | | last modification) on 10/01/12 | | | | | | | at 1600, Until Discontinued | | | | | | + +-------+ +---------+---+---+ +-------+ +---------+---+---+ | Given | 10/02/19 | 6.25 mg | | | | | 13 3:43 | | | | | | AM PST | | | | +-------+ +---------+---+---+ | Given | 10/01/19 | 6.25 mg | | | | | 13 9:26 | | | | | | PM PST | | | | +-------+ +---------+---+---+ +---+---+ | | | +---+---+ + +-------+ +---------+---+---+ | metoprolol tartrate (aka | Given | 10/03/19 | 12.5 mg | | | | LOPRESSOR) tablet 12.5 mg 12.5 | | 13 9:14 | | | | | mg, oral, TWICE DAILY, First dose | | AM PST | | | | | (after last modification) on Mon | | | | | | | 10/02/12 at 2100, Until | | | | | | | Discontinued | | | | | | + +-------+ +---------+---+---+ +-------+ +---------+---+---+ | Given | 10/02/19 | 12.5 mg | | | | | 13 10:12 | | | | | | PM PST | | | | +-------+ +---------+---+---+ +---+---+ | | | +---+---+ + +-------+ +--------+---+ + | pneumococcal (23-valent) | Given | 10/03/19 | 0.5 mL | | Left Arm | | polysaccharide vaccine (aka | | 13 9:14 | | | | | PNEUMOVAX) injection 0.5 mL 0.5 | | AM PST | | | | | mL, intramuscular, ONE TIME IN | | | | | | | THE MORNING, 1 dose, First dose | | | | | | | on 10/03/12 at 0900 | | | | | | + +-------+ +--------+---+ + +---+---+ | | | +---+---+ + +-------+ +--------+---+---+ | potassium chloride SR (aka | Given | 10/01/19 | 40 mEq | | | | K-DUR) tablet 40 mEq 40 mEq, | | 13 6:13 | | | | | oral, ONCE, 1 dose, 10/01/12 at | | AM PST | | | | | 0615 | | | | | | + +-------+ +--------+---+---+ +---+---+ | | | +---+---+ + +-------+ +-------+---+---+ | spironolactone (aka ALDACTONE) | Given | 10/03/19 | 50 mg | | | | tablet 50 mg 50 mg, oral, TWICE | | 13 4:04 | | | | | DAILY (DIURETIC), First dose | | PM PST | | | | | (after last modification) on Sat | | | | | | | 09/30/12 at 0800, Until | | | | | | | Discontinued | | | | | | + +-------+ +-------+---+---+ +-------+ +-------+---+---+ | Given | 10/03/19 | 50 mg | | | | | 13 9:14 | | | | | | AM PST | | | | +-------+ +-------+---+---+ | Given | 10/02/19 | 50 mg | | | | | 13 4:01 | | | | | | PM PST | | | | +-------+ +-------+---+---+ +---+---+ | | | +---+---+ + +-------+ +------+---+---+ | warfarin (aka COUMADIN) tablet | Given | 10/02/19 | 5 mg | | | | 5 mg 5 mg, oral, EVERY EVENING, | | 13 10:13 | | | | | First dose on 09/30/12 at 2100, | | PM PST | | | | | Until Discontinued | | | | | | + +-------+ +------+---+---+ +-------+ +------+---+---+ | Given | 10/01/19 | 5 mg | | | | | 13 9:26 | | | | | | PM PST | | | | +-------+ +------+---+---+ | Given | 09/30/19 | 5 mg | | | | | 13 9:26 | | | | | | PM PST | | | | +-------+ +------+---+---+ +---+---+ | | | +---+---+ documented in this encounter
--- OUTSIDE RECORDS SUMMARY | ~2019-09-13 | XMS | Encounter Summary ---
Demographics + + + | Address | [address] | | | [place] [address] | + + + | Home Phone | | + + + | Preferred Language | Unknown | + + + | Marital Status | Single | + + + | Religion Affiliation | CHR | + + + | Race | White | + + + | Ethnic Group | Not or | + + + Author + + + | Author | [facility] | + + + | Organization | [facility] | + + + | Address | Unknown | + + + | Phone | Unavailable | + + + Support + + + + + | Name | Relationship | Address | Phone | + + + + + | Joanne Zhang | [place] | [address] | | | | | [place] | | | | | [phone] | | + + + + + | Linh Pate | ECON | Unknown | | + + + + + Care Team Providers + +------+ + | Care Credit Analysis Manager Name | Role | Phone | + +------+ + | Erick Bernstein DO | PCP | | + +------+ + Encounter Details +--------+ + + + + | Date | Type | Department | Care Team | Description | +--------+ + + + + | 11/28/ | [facility] | Cardiothoracic | Neda Casillas, | | | 2012 | | [facility] | PA-C | | | | | [address] | | | | | | Mailcode: [id number] | | | | | | Physician'miranda Lawler | | | | | | [place], [place] | | | | | | [address] | | | | | | [phone] | | | +--------+ + + + [...]
--- OUTSIDE RECORDS SUMMARY | ~2019-09-13 | XMS | Encounter Summary ---
Demographics + + + | Address | [address] | | | [place] [address] | + + + | Home Phone [...] Author + + + | Author | [facility] | + + + | Organization | [facility] | + + + | Address | Unknown | + + + | Phone | Unavailable | + + + Support + + + + + | Name | Relationship | Address | Phone | + + + + + | Joanne Zhang | [place] | [address] | | | | | [place] | | | | | [phone] | | + + + + + | Linh Pate | ECON | Unknown | | + + + + + Care Team Providers + +------+ + | Care Story Analyst Name | Role | Phone | + +------+ + | Erick Bernstein DO | PCP | | + +------+ + Reason for Visit AUTH/CERT +--------+--------+ + + + + | [...] | +--------+ + + + + | 12/08/ | Anesthesia | 6A Intra Op [id number] | Ivan Zambrano MD | | | 2012 | Event | [address] | | | | | | [address] [facility] | | | | | | [facility] Admitting | | | | | | Desk Located on the | | | | | | 9th floor | | | | | | [place], [place] | | | | | | [phone] | | | +--------+ + + + + Anesthesia Record + + + + + | Procedure Name | Responsible | Anesthesia Start | Anesthesia Stop Time | | | Anesthesiologist | Time | | + + + + + | MEDIASTINAL WASHOUT; | Ivan Zambrano MD | 12/08/12 1411 | 12/08/12 1742 | | STERNAL CLOSURE. | | | | | Cultures x 3 (N/A | | | | | Chest) | | | | + + + + + +----+---+ + + | Da | T | Event | Comment | | te | i | | | | | m | | | | | e | | | +----+---+ + + | 03 | 1 | Eq Check | Anesthesia machine checked Equipment verified | | /1 | 3 | | | | 5/ | 3 | | | | 20 | 1 | | | | 13 | | | | +----+---+ + + | | 1 | | | | | 3 | | | | | 5 | | | | | 7 | | | +----+---+ + + | | 1 | Pt. Check | Prior to anesthesia start, pt. Identified, examined, chart | | | 3 | | reviewed, PARQ held, anesthetic plan made or approved by | | | 5 | | attending anesthesiologist. NPO status confirmed as appropriate | | | 7 | | for procedure Preoperative evaluation: unchanged | +----+---+ + + | | 1 | An Start | Pt transported from 8 C to OR with Art Line, 5 lead EKG, and SpO2 | | | 4 | | monitoring. Oxygenation and ventilation via Ambu Bag, 10LPM | | | 1 | | oxygen, PEEP Valve [id number]. | | | 1 | | | +----+---+ + + | | 1 | An Start | Transport uneventful, VSS. | | | 4 | Data | | | | 1 | | | | | 6 | | | +----+---+ + + | | 1 | Vitals | Monitors applied Vital signs checked Patient ready for anesthesia | | | 4 | Checked | ABP is right femoral art line ([facility]CO site) | | | 2 | | | | | 8 | | | +----+---+ + + | | 1 | Timeout | | | | 4 | | | | | 2 | | | | | 8 | | | +----+---+ + + | | 1 | Art Line | Right Radial (ABP is now Right radial). P[facility]CO art line is on | | | 4 | | pressure transducer an bag, but not connected to monitor. | | | 3 | | | | | 2 | | | +----+---+ + + | | 1 | MADHURI Probe | | | | 4 | Inserted | | | | 4 | | | | | 1 | | | +----+---+ + + | | 1 | Central | 9 FR 8 cm Introducer LEFT IJ | | | 5 | venous line | | | | 0 | | | | | 3 | | | +----+---+ + + | | 1 | Quick Note | PA Catheter placed | | | 5 | | | | | 1 | | | | | 5 | | | +----+---+ + + | | 1 | Abx held | Abx held for Medical Reason: Contraindicated or already receiving | | | 5 | Medical or | antibiotics | | | 2 | Surgical | | | | 9 | Reason | | +----+---+ + + | | 1 | Incision | | | | 5 | | | | | 4 | | | | | 6 | | | +----+---+ + + | | 1 | Quick Note | Trial chest closure, VSS. Will monitor for 5 minutes and reshoot | | | 6 | | CO before closing. | | | 2 | | | | | 4 | | | +----+---+ + + | | 1 | Quick Note | Test chest closure | | | 6 | | | | | 2 | | | | | 4 | | | +----+---+ + + | | 1 | Quick Note | Chest closed | | | 6 | | | | | 4 | | | | | 2 | | | +----+---+ + + | | 1 | MADHURI PROBE | | | | 7 | REMOVED | | | | 1 | | | | | 0 | | | +----+---+ + + | | 1 | Surgery end | | | | 7 | | | | | 1 | | | | | 0 | | | +----+---+ + + | | 1 | an stop | Pt transported to 8 C with Art Line,. 5 Lead EKG,and SpO2 | | | 7 | data | monitoring. Oxygenation and ventilation via Ambu Bag, 10LPM | | | 2 | | oxygen, and PEEP Valve 10. | | | 8 | | | +----+---+ + + | | 1 | Quick Note | Transport uneventful, VSS | | | 7 | | | | | 3 | | | | | 8 | | | +----+---+ + + | | 1 | SBAR | Intraoperative handoff. Full report given to 8 CSI and care of pt | | | 7 | | handed over. | | | 3 | | | | | 9 | | | +----+---+ + + | | 1 | Anesthesia | | | | 7 | End | | | | 4 | | | | | 2 | | | +----+---+ + + +------+ | Meds | +------+ + + + | Name | Total | + + + | fentaNYL | 750 mcg | + + + | EPINEPHrine | 10 mcg | + + + | midazolam | 2 mg | + + + | EPINEPHrine INF (5mg/250mL) | 1,014.12 mcg | + + + | propofol INF | 683,640 mcg | + + + | cisatracurium | 20 mg | + + + | calcium chloride | 1,000 mg | + + + | dextrose 50% in water syringe | 10 g | + + + | albumin 5% | 12.5 g | + + + | calcium gluconate | 2,000 mg | + + + | LR | 517.5 mL | + + + + + | Name | + + | Insp Iso | + + | Et Iso | + + | EtN2O % | + + | Insp N2O % | + + | O2 Flow Rate (Total Liters) | + + + + | No blood administrations on file. | + + +--------+ + + + | Type | Details | Placement | Removal | +--------+ + + + | RETIRE | 11/29/12; 2101; chest; medial; | 11/29/122101 by | 07/14/17 162 by | | D - | chest; 07/14/17 (Automatic | Palomo Marquez RN | Discontinued After | | Incisi | cleanup per RA 3006--contact | | Discharge | | on | admin for questions.); 1622 | | | | | (Automatic cleanup per RA | | | | | 3006--contact admin for | | | | | questions.) | | | +--------+ + + + | RETIRE | 11/29/12; 2103; Right leg; | 11/29/122103 by | 07/14/17 162 by | | D - | Right:, medial, upper; leg; | Palomo Marquez RN | Discontinued After | | Incisi | 07/14/17 (Automatic cleanup per | | Discharge | | on | RA 3006--contact admin for | | | | | questions.); 1622 (Automatic | | | | | cleanup per RA 3006--contact | | | | | admin for questions.) | | | +--------+ + + + | RETIRE | 12/04/12; 1445; 12/08/12; 1454; | 12/04/12 1445 by | 12/08/12 1454 by | | D - | Mariama; 14FR | Lilliana Amador RN | Bruna Grady RN | | Urkapilr | | | | | y Cath | | | | | | | | | | Placem | | | | | ent | | | | | (Ольга | | | | | & Cath | | | | | Care | | | | | Daily | | | | | and Q | | | | | BM) | | | | +--------+ + + + | RETIRE | 12/04/12; 1505; 25 cm; 12/12/12; | 12/04/12 1505 by | 12/12/12 1000 by | | D - | 1000; No; Endotracheal Tube | Adelina Agudelo RN | Adelina Agudelo RN | | ETT/Or | (ETT); 7.5; Oral; From Teeth; | | | | al | Cuffed | | | | Airway | | | | +--------+ + + + | RETIRE | 12/04/12; 1824; Correct pt ID; | 12/04/121824 by | 12/08/121829 by | | D - | Yes; Yes; Yes; Hat, Mask, Sterile | Lilliana Amador RN | Otilio Rojas RN | | [facility] | Gown, Sterile Gloves; Hat, Mask, | | | | l Line | Sterile Gown, Sterile Gloves; | | | | | Yes; Yes; Yes; Yes; Yes; | | | | | 12/08/12; 183; CVC; Right | | | +--------+ + + + | RETIRE | 12/04/12; 182; 12/08/12; 1610; | 12/04/121825 by | 12/08/12 161 by | | D - | Som | Lilliana Amador RN | Bruna Grady RN | | Drains | | | | | | | | | | (wound | | | | | s/surg | | | | | ical) | | | | +--------+ + + + | RETIRE | 12/04/12; 2100; [facility] Right | 12/04/12 2100 by | 12/08/12 1800 by | | D - | Femoral; Hat; 12/08/12; 1800; | Mark Guadarrama RN | Otilio Rojas RN | | [facility] | Femoral | | | | l Line | | | | +--------+ + + + | RETIRE | 12/07/12; 0500; Ankle; Left:, | 12/07/12 0500 by | 12/20/12 1433 by | | D - | lower; calf; pressure ulcer; | Bridgette Zuniga, | Mary Viveros RN | | Wound | 12/20/12; 1433 | RN | | +--------+ + + + | RETIRE | 12/07/12; 0500; Ankle; Right:, | 12/07/12 0500 by | 12/20/12 1433 by | | D - | lower; calf; pressure ulcer; | Bridgette Zuniga, | Mary Viveros RN | | Wound | 12/20/12; 1433 | RN | | +--------+ + + + | RETIRE | 12/08/12 (in operating theatre); | 12/08/12 0000 by | 12/08/12 1800 by | | D - | 12/08/12; 1800 (double | Otilio Rojas, RN | Otilio Rojas RN | | Chest | documentation); {19 fr-- Blakes x | | | | Tube | 2 --2;1 Cardio Connector}; Other | | | | | (Comment); (19 fr x 2); Som; | | | | | Mediastinal, Pleural | | | +--------+ + + + | RETIRE | 12/08/12 (in operating theatre); | 12/08/12 0000 by | 12/10/12 1508 by | | D - | {Oximetric}; 12/10/12; 1508 | Otilio Rojas RN | Ellen | | PA | | | Erick | | Cathet | | | | | er | | | | +--------+ + + + | RETIRE | 12/08/12; 12/10/12; 1508; | 12/08/12 0000 by | 12/10/12 1508 by | | D - | Introducer; Left | Renny Gabriel RN | Ellen | | Tamara | | | Erick | | l Line | | | | +--------+ + + + | RETIRE | 12/08/12; 1432; 12/12/12; 1400; | 12/08/12 1432 by Moody | 12/12/12 1400 by | | D - | No; 20g; right, radial | M MD Abbey | Adelina Agudelo RN | | Arteri | | | | | al | | | | | Line | | | | +--------+ + + + | RETIRE | 12/08/12; 1455; 12/14/12; 1630; | 12/08/12 1455 by | 12/14/12 1630 by | | D - | No; Temp-kobe Leslie (easy | Bruna Grady RN | Vijay Waggoner, | | Urinar | insertion); 16FR; yes | | RN | | y Cath | | | | | | | | | | Placem | | | | | ent | | | | | (Ольга | | | | | & Cath | | | | | Care | | | | | Daily | | | | | and Q | | | | | BM) | | | | +--------+ + + + | RETIRE | 12/08/12; 1611; 12/12/12; 1500; | 12/08/12 1611 by | 12/12/12 1500 by | | D - | No; {Mediastinal 19 Fr. Som | Bruna Grady RN | Adelina Agudelo RN | | Chest | Drain x 2 Yd to one Pleurevac}; | | | | Tube | Yes (19); (19 fr x 2); Som; | | | | | Mediastinal, Pleural | | | +--------+ + + + documented in this encounter Social History + +-------+ +--------+------+ | Tobacco [...] Not on filedocumented as of this encounter Results ARTERIAL BLOOD GAS, POC IP ONLY (12/08/2012 5:10 PM PDT) + +-------+ + + + | Component | Value | Ref Range | Performed | Pathologist | | | | | At | Signature | + +-------+ + + + | PAT TEMP | | | | | | ART, POC | | | | | + +-------+ + + + | FIO2 ART, | | | | | | POC | | | | | + +-------+ + + + | PH | | | | | | ARTERIAL, | | | | | | POC | | | | | + +-------+ + + + | PCO2 | | | | | | ARTERIAL, | | | | | | POC | | | | | + +-------+ + + + | PO2 | | | | | | ARTERIAL, | | | | | | POC | | | | | + +-------+ + + + | BASE EXCESS | | | | | | ART, POC | | | | | + +-------+ + + + | HCO3 | | mmol/L | | | | ARTERIAL, | | | | | | POC | | | | | + +-------+ + + + | TOTAL CO2 | | mmol/L | | | | ART, POC | | | | | + +-------+ + + + | CALC %O2 | | %Saturation | | | | SAT ART, | | | | | | POC | | | | | + +-------+ + + + | PO2 | 295 | | | | | ARTERIAL, | | | | | | POC | | | | | + +-------+ + + + | PCO2 | 41 | | | | | ARTERIAL, | | | | | | POC | | | | | + +-------+ + + + | BASE EXCESS | 2.6 | | | | | ARTERIAL, | | | | | | POC | | | | | + +-------+ + + + LACTATE, POC IP ONLY (12/08/2012 5:10 PM PDT) + +-------+ + + + | Component | Value | Ref Range | Performed | Pathologist | | | | | At | Signature | + +-------+ + + + | LACTATE POC | 1.4 | mmol/L | | | + +-------+ + + + HEMATOCRIT (12/08/2012 5:10 PM PDT) + +-------+ + + + | Component | Value | Ref Range | Performed | Pathologist | | | | | At | Signature | + +-------+ + + + | HEMATOCRIT, | 25 | | | | | POC | | | | | + +-------+ + + + + + | Specimen | + + | Blood - Blood | + + PH, BODY FLUID (12/08/2012 5:10 PM PDT) + +-------+ + + + | Component | Value | Ref Range | Performed | Pathologist | | | | | At | Signature | + +-------+ + + + | PH | 7.43 | | | | | ARTERIAL, | | | | | | POC | | | | | + +-------+ + + + + + | Specimen | + + | Fluid | + + CO2, TOTAL, PLASMA (12/08/2012 5:10 PM PDT) + +-------+ + + + | Component | Value | Ref Range | Performed | Pathologist | | | | | At | Signature | + +-------+ + + + | HCO3 | 27.2 | | | | | ARTERIAL, | | | | | | POC | | | | | + +-------+ + + + + + | Specimen | + + | Blood - Blood | + + SODIUM (ART), POC SOR (12/08/2012 5:10 PM PDT) + +-------+ + + + | Component | Value | Ref Range | Performed | Pathologist | | | | | At | Signature | + +-------+ + + + | SODIUM, POC | 143 | | | | + +-------+ + + + POTASSIUM (ART), POC SOR (12/08/2012 5:10 PM PDT) + +-------+ + + + | Component | Value | Ref Range | Performed | Pathologist | | | | | At | Signature | + +-------+ + + + | POTASSIUM, | 4.1 | | | | | POC | | | | | + +-------+ + + + GLUCOSE (ART), POC SOR (12/08/2012 5:10 PM PDT) + +-------+ + + + | Component | Value | Ref Range | Performed | Pathologist | | | | | At | Signature | + +-------+ + + + | GLUCOSE, | 89 | | | | | POC | | | | | + +-------+ + + + CHLORIDE (ART), POC SOR (12/08/2012 5:10 PM PDT) + +-------+ + + + | Component | Value | Ref Range | Performed | Pathologist | | | | | At | Signature | + +-------+ + + + | CHLORIDE, | 109 | | | | | POC | | | | | + +-------+ + + + CALCIUM (ART), POC SOR (12/08/2012 5:10 PM PDT) + +-------+ + + + | Component | Value | Ref Range | Performed | Pathologist | | | | | At | Signature | + +-------+ + + + | BERTA | 1.08 | | | | | IONIZED CA, | | | | | | POC | | | | | + +-------+ + + + ACT, POC IP ONLY (12/08/2012 4:41 PM PDT) + +---------+ + + + | Component | Value | Ref Range | Performed | Pathologist | | | | | At | Signature | + +---------+ + + + | ACT, POC | 206 (A) | 90 - 150 | | | | | | Seconds | | | + +---------+ + + + ARTERIAL BLOOD GAS, POC IP ONLY (12/08/2012 4:41 PM PDT) + +-------+ + + + | Component | Value | Ref Range | Performed | Pathologist | | | | | At | Signature | + +-------+ + + + | PAT TEMP | | | | | | ART, POC | | | | | + +-------+ + + + | FIO2 ART, | | | | | | POC | | | | | + +-------+ + + + | PH | | | | | | ARTERIAL, | | | | | | POC | | | | | + +-------+ + + + | PCO2 | | | | | | ARTERIAL, | | | | | | POC | | | | | + +-------+ + + + | PO2 | | | | | | ARTERIAL, | | | | | | POC | | | | | + +-------+ + + + | BASE EXCESS | | | | | | ART, POC | | | | | + +-------+ + + + | HCO3 | | mmol/L | | | | ARTERIAL, | | | | | | POC | | | | | + +-------+ + + + | TOTAL CO2 | | mmol/L | | | | ART, POC | | | | | + +-------+ + + + | CALC %O2 | | %Saturation | | | | SAT ART, | | | | | | POC | | | | | + +-------+ + + + | PO2 | 310 | | | | | ARTERIAL, | | | | | | POC | | | | | + +-------+ + + + | PCO2 | 39 | | | | | ARTERIAL, | | | | | | POC | | | | | + +-------+ + + + | BASE EXCESS | 2.2 | | | | | ARTERIAL, | | | | | | POC | | | | | + +-------+ + + + LACTATE, POC IP ONLY (12/08/2012 4:41 PM PDT) + +-------+ + + + | Component | Value | Ref Range | Performed | Pathologist | | | | | At | Signature | + +-------+ + + + | LACTATE POC | 1.4 | mmol/L | | | + +-------+ + + + HEMATOCRIT (12/08/2012 4:41 PM PDT) + +-------+ + + + | Component | Value | Ref Range | Performed | Pathologist | | | | | At | Signature | + +-------+ + + + | HEMATOCRIT, | 25 | | | | | POC | | | | | + +-------+ + + + + + | Specimen | + + | Blood - Blood | + + PH, BODY FLUID (12/08/2012 4:41 PM PDT) + +-------+ + + + | Component | Value | Ref Range | Performed | Pathologist | | | | | At | Signature | + +-------+ + + + | PH | 7.44 | | | | | ARTERIAL, | | | | | | POC | | | | | + +-------+ + + + + + | Specimen | + + | Fluid | + + CO2, TOTAL, PLASMA (12/08/2012 4:41 PM PDT) + +-------+ + + + | Component | Value | Ref Range | Performed | Pathologist | | | | | At | Signature | + +-------+ + + + | HCO3 | 26.5 | | | | | ARTERIAL, | | | | | | POC | | | | | + +-------+ + + + + + | Specimen | + + | Blood - Blood | + + SODIUM (ART), POC SOR (12/08/2012 4:41 PM PDT) + +-------+ + + + | Component | Value | Ref Range | Performed | Pathologist | | | | | At | Signature | + +-------+ + + + | SODIUM, POC | 144 | | | | + +-------+ + + + POTASSIUM (ART), POC SOR (12/08/2012 4:41 PM PDT) + +-------+ + + + | Component | Value | Ref Range | Performed | Pathologist | | | | | At | Signature | + +-------+ + + + | POTASSIUM, | 3.9 | | | | | POC | | | | | + +-------+ + + + GLUCOSE (ART), POC SOR (12/08/2012 4:41 PM PDT) + +-------+ + + + | Component | Value | Ref Range | Performed | Pathologist | | | | | At | Signature | + +-------+ + + + | GLUCOSE, | 68 | | | | | POC | | | | | + +-------+ + + + CHLORIDE (ART), POC SOR (12/08/2012 4:41 PM PDT) + +-------+ + + + | Component | Value | Ref Range | Performed | Pathologist | | | | | At | Signature | + +-------+ + + + | CHLORIDE, | 109 | | | | | POC | | | | | + +-------+ + + + CALCIUM (ART), POC SOR (12/08/2012 4:41 PM PDT) + +-------+ + + + | Component | Value | Ref Range | Performed | Pathologist | | | | | At | Signature | + +-------+ + + + | BERTA | 1.12 | | | | | IONIZED CA, | | | | | | POC | | | | | + +-------+ + + + ACT, POC IP ONLY (12/08/2012 3:27 PM PDT) + +---------+ + + + | Component | Value | Ref Range | Performed | Pathologist | | | | | At | Signature | + +---------+ + + + | ACT, POC | 203 (A) | 90 - 150 | | | | | | Seconds | | | + +---------+ + + + ARTERIAL BLOOD GAS, POC IP ONLY (12/08/2012 3:27 PM PDT) + +-------+ + + + | Component | Value | Ref Range | Performed | Pathologist | | | | | At | Signature | + +-------+ + + + | PAT TEMP | | | | | | ART, POC | | | | | + +-------+ + + + | FIO2 ART, | | | | | | POC | | | | | + +-------+ + + + | PH | | | | | | ARTERIAL, | | | | | | POC | | | | | + +-------+ + + + | PCO2 | | | | | | ARTERIAL, | | | | | | POC | | | | | + +-------+ + + + | PO2 | | | | | | ARTERIAL, | | | | | | POC | | | | | + +-------+ + + + | BASE EXCESS | | | | | | ART, POC | | | | | + +-------+ + + + | HCO3 | | mmol/L | | | | ARTERIAL, | | | | | | POC | | | | | + +-------+ + + + | TOTAL CO2 | | mmol/L | | | | ART, POC | | | | | + +-------+ + + + | CALC %O2 | | %Saturation | | | | SAT ART, | | | | | | POC | | | | | + +-------+ + + + | BASE EXCESS | 1.7 | | | | | ART, POC | | | | | + +-------+ + + + | PO2 | 310 | | | | | ARTERIAL, | | | | | | POC | | | | | + +-------+ + + + | PCO2 | 37 | | | | | ARTERIAL, | | | | | | POC | | | | | + +-------+ + + + LACTATE, POC IP ONLY (12/08/2012 3:27 PM PDT) + +-------+ + + + | Component | Value | Ref Range | Performed | Pathologist | | | | | At | Signature | + +-------+ + + + | LACTATE POC | 1.5 | mmol/L | | | + +-------+ + + + HEMATOCRIT (12/08/2012 3:27 PM PDT) + +-------+ + + + | Component | Value | Ref Range | Performed | Pathologist | | | | | At | Signature | + +-------+ + + + | HEMATOCRIT, | 26 | | | | | POC | | | | | + +-------+ + + + + + | Specimen | + + | Blood - Blood | + + PH, BODY FLUID (12/08/2012 3:27 PM PDT) + +-------+ + + + | Component | Value | Ref Range | Performed | Pathologist | | | | | At | Signature | + +-------+ + + + | PH | 7.45 | | | | | ARTERIAL, | | | | | | POC | | | | | + +-------+ + + + + + | Specimen | + + | Fluid | + + CO2, TOTAL, PLASMA (12/08/2012 3:27 PM PDT) + +-------+ + + + | Component | Value | Ref Range | Performed | Pathologist | | | | | At | Signature | + +-------+ + + + | HCO3 | 25.7 | | | | | ARTERIAL, | | | | | | POC | | | | | + +-------+ + + + + + | Specimen | + + | Blood - Blood | + + SODIUM (ART), POC SOR (12/08/2012 3:27 PM PDT) + +-------+ + + + | Component | Value | Ref Range | Performed | Pathologist | | | | | At | Signature | + +-------+ + + + | SODIUM, POC | 143 | | | | + +-------+ + + + POTASSIUM (ART), POC SOR (12/08/2012 3:27 PM PDT) + +-------+ + + + | Component | Value | Ref Range | Performed | Pathologist | | | | | At | Signature | + +-------+ + + + | POTASSIUM, | 3.9 | | | | | POC | | | | | + +-------+ + + + GLUCOSE (ART), POC SOR (12/08/2012 3:27 PM PDT) + +-------+ + + + | Component | Value | Ref Range | Performed | Pathologist | | | | | At | Signature | + +-------+ + + + | GLUCOSE, | 86 | | | | | POC | | | | | + +-------+ + + + CHLORIDE (ART), POC SOR (12/08/2012 3:27 PM PDT) + +-------+ + + + | Component | Value | Ref Range | Performed | Pathologist | | | | | At | Signature | + +-------+ + + + | CHLORIDE, | 108 | | | | | POC | | | | | + +-------+ + + + CALCIUM (ART), POC SOR (12/08/2012 3:27 PM PDT) + +-------+ + + + | Component | Value | Ref Range | Performed | Pathologist | | | | | At | Signature | + +-------+ + + + | BERTA | 0.97 | | | | | IONIZED CA, | | | | | | POC | | | | | + +-------+ + + + documented in this encounter Visit Diagnoses Not on filedocumented in this encounter Administered Medications + +--------+ +--------+------+------+ | Medication Order | MAR | Action | Dose | Rate | Site | | | Action | Date | | | | + +--------+ +--------+------+------+ | albumin human (aka BUMINATE, | Given | 12/09/19 | 12.5 g | | | | FLEXBUMIN) 5 % injection | | 13 5:12 | | | | | INTRAPROCEDURE PRN, Starting Fri | | PM PDT | | | | | 12/08/12 at 1712, Until Fri | | | | | | | 12/08/12 at 1728 | | | | | | + +--------+ +--------+------+------+ +---+---+ | | | +---+---+ + +-------+ +--------+---+---+ | calcium chloride 100 mg/mL (10 | Given | 12/09/19 | 500 mg | | | | %) injection syringe | | 13 4:35 | | | | | intravenous, INTRAPROCEDURE PRN, | | PM PDT | | | | | Starting 12/08/12 at 1538, | | | | | | | Until 12/08/12 at 1728 | | | | | | + +-------+ +--------+---+---+ +-------+ +--------+---+---+ | Given | 12/09/19 | 300 mg | | | | | 13 4:15 | | | | | | PM PDT | | | | +-------+ +--------+---+---+ | Given | 12/09/19 | 200 mg | | | | | 13 3:38 | | | | | | PM PDT | | | | +-------+ +--------+---+---+ +---+---+ | | | +---+---+ + +-------+ + +---+---+ | calcium gluconate 10 % (100 | Given | 12/09/19 | 1,000 mg | | | | mg/mL) injection intravenous, | | 13 5:31 | | | | | INTRAPROCEDURE PRN, Starting Fri | | PM PDT | | | | | 12/08/12 at 1717, Until Fri | | | | | | | 12/08/12 at 1742 | | | | | | + +-------+ + +---+---+ +-------+ + +---+---+ | Given | 12/09/19 | 1,000 mg | | | | | 13 5:17 | | | | | | PM PDT | | | | +-------+ + +---+---+ +---+---+ | | | +---+---+ + +-------+ +-------+---+---+ | cisatracurium (aka NIMBEX) | Given | 12/09/19 | 20 mg | | | | injection intravenous, | | 13 2:44 | | | | | INTRAPROCEDURE PRN, Starting Fri | | PM PDT | | | | | 12/08/12 at 1444, Until Fri | | | | | | | 12/08/12 at 1728 | | | | | | + +-------+ +-------+---+---+ +---+---+ | | | +---+---+ + +-------+ +------+---+---+ | dextrose IV INTRAPROCEDURE | Given | 12/09/19 | 10 g | | | | PRN, Starting 12/08/12 at | | 13 4:44 | | | | | 1644, Until 12/08/12 at 1728, | | PM PDT | | | | | hypoglycemia | | | | | | + +-------+ +------+---+---+ +---+---+ | | | +---+---+ + +-------+ +--------+---+---+ | EPINEPHrine (aka ADRENALIN) | Given | 12/09/19 | 10 mcg | | | | injection INTRAPROCEDURE PRN, | | 13 2:11 | | | | | Starting 12/08/12 at 1411, | | PM PDT | | | | | Until 12/08/12 at 1728 | | | | | | + +-------+ +--------+---+---+ +---+---+ | | | +---+---+ + + + + +--------+---+ | EPINEPHrine in NS IV infusion 5 | Rate/Dos | 12/09/19 | 0.03 | 14.58 | | | mg/250 mL (0.02 mg/mL) | e Change | 13 2:18 | mcg/kg/m | mL/hr | | | intravenous, INTRAPROCEDURE | | PM PDT | in | | | | CONTINUOUS PRN, Starting Fri | | | | | | | 12/08/12 at 1411, Until Fri | | | | | | | 12/08/12 at 1728 | | | | | | + + + + +--------+---+ +---------+ + +-------+---+ | New Bag | 12/09/19 | 0.02 | 9.72 | | | | 13 2:11 | mcg/kg/m | mL/hr | | | | PM PDT | in | | | +---------+ + +-------+---+ +---+---+ | | | +---+---+ + +-------+ +---------+---+---+ | fentaNYL citrate (PF) (aka | Given | 12/09/19 | 150 mcg | | | | SUBLIMAZE) injection | | 13 5:15 | | | | | INTRAPROCEDURE PRN, Starting Fri | | PM PDT | | | | | 12/08/12 at 1411, Until Fri | | | | | | | 12/08/12 at 1728, sedation | | | | | | + +-------+ +---------+---+---+ +-------+ +---------+---+---+ | Given | 12/09/19 | 100 mcg | | | | | 13 4:37 | | | | | | PM PDT | | | | +-------+ +---------+---+---+ | Given | 12/09/19 | 250 mcg | | | | | 13 2:38 | | | | | | PM PDT | | | | +-------+ +---------+---+---+ +---+---+ | | | +---+---+ + +---------+ +-------+-------+---+ | lactated ringers IV | New Bag | 12/09/19 | mL/hr | 150 | | | INTRAPROCEDURE CONTINUOUS PRN, | | 13 2:11 | | mL/hr | | | Starting Tue12/08/12 at 1411, | | PM PDT | | | | | Until Tue12/08/12 at 1728 | | | | | | + +---------+ +-------+-------+---+ +---+---+ | | | +---+---+ + +-------+ +------+---+---+ | midazolam (aka VERSED) | Given | 12/09/19 | 2 mg | | | | injection INTRAPROCEDURE PRN, | | 13 2:15 | | | | | Starting Tue12/08/12 at 1415, | | PM PDT | | | | | Until Tue12/08/12 at 1728, | | | | | | | sedation | | | | | | + +-------+ +------+---+---+ +---+---+ | | | +---+---+ + +---------+ + +--------+---+ | propofol (karthikeyan ROSA) | New Bag | 12/09/19 | 20 | 19.44 | | | injection INTRAPROCEDURE | | 13 2:11 | mcg/kg/m | mL/hr | | | CONTINUOUS PRN, Starting Fri | | PM PDT | in | | | | 12/08/12 at 1411, Until Fri | | | | | | | 12/08/12 at 1728 | | | | | | + +---------+ + +--------+---+ +---+---+ | | | +---+---+ documented in this encounter"
--- OUTSIDE RECORDS SUMMARY | ~2019-09-13 | XMS | Encounter Summary ---
Demographics + + + | Address | [address] | | | [place] [address] | + + + | Home Phone | | + + + | Preferred Language | Unknown | + + + | Marital Status | Single | + + + | Jewish Affiliation | CHR | + + + | Race | White | + + + | Ethnic Group | Not or | + + + Author + + + | Author | [facility] | + + + | Organization | [facility] | + + + | Address | Unknown | + + + | Phone | Unavailable | + + + Support + + + + + | Name | Relationship | Address | Phone | + + + + + | Joanne Zhang | HERMILA | [address] | | | | | [place] | | | | | [address] | | + + + + + | Linh Pate | ECON | Unknown | | + + + + + Care Team Providers + +------+ + | Care Airplane Tester Name | Role | Phone | + [...] Closed | | Cardiology | Procedures | Bruno, | Car Echo | | | | | | Eliot P, | [facility] [address] | | | | | TRAN[address]ACI | MD | [address] | | | | | C | | Mailcode: | | | | | ECHOCARDIOGR | | [id number] | | | | | AM, ADULT | | [facility] | | | | | | | Building | | | | | | | [place], [place] | | | | | | | [address] | | | | | | | Phone: | | | | | | | [phone] | +--------+--------+ + + + + Diagnostic Testing (Routine) +--------+--------+ + + + + | Status | Reason | Specialty | Diagnoses / | Referred By | Referred To | | | | | Procedures | Contact | Contact | +--------+--------+ + + + + | Closed | | Cardiology | Procedures | Calix, | Car Echo | | | | | | MD Shira | [facility] [address] | | | | | TRANST[address]ACI | [address] | [address] | | | | | C | [facility] Mailcode: | | | | | ECHOCARDIOGR | [address] | [id number] | | | | | AM, ADULT | [place], [place] | [facility] | | | | | | [address] | Building | | | | | | Phone: | [place], [place] | | | | | | [phone] | [address] | | | | | | | Phone: | | | | | | | [phone] | +--------+--------+ + + + + Diagnostic Testing (Routine) +--------+--------+ + + + + | Status | Reason | Specialty | Diagnoses / | Referred By | Referred To | | | | | Procedures | Contact | Contact | +--------+--------+ + + + + | Closed | | Cardiology | Procedures | Zzuhs 8csi | Car Echo | | | | | | Car/Lisa Icu | [address] | | | | | TRANSTH[address]ACI | [address] | [address] | | | | | C | [address] | Mailcode: | | | | | ECHOCARDIOGR | Roxann Benjamin | [id number] | | | | | AM, ADULT | [facility] | [address] | | | | | | Hospital | Building | | | | | | [facility] [place] | [facility] [place] | | | | | | [address] | [address] | | | | | | | Phone: | | | | | | | [phone] | +--------+--------+ + + + + Diagnostic Testing (Routine) +--------+--------+ + + + + | Status | Reason | Specialty | Diagnoses / | Referred By | Referred To | | | | | Procedures | Contact | Contact | +--------+--------+ + + + + | Closed | | Cardiology | Procedures | Wick, | Car Echo | | | | | | Steven Gatica, | [address] | | | | | TRANSTHORACI | MD [address] | [address] | | | | | C | [address] | Mailcode: | | | | | ECHOCARDIOGR | Roxann [address] | [id number] | | | | | AM, ADULT | [place], [place] | [address] | | | | | | [address] | Building | | | | | | | [place], [place] | | | | | | | [address] | | | | | | | Phone: | | | | | | | [phone] | +--------+--------+ + + + + Diagnostic Testing (Routine) +--------+--------+ + + + + | Status | Reason | Specialty | Diagnoses / | Referred By | Referred To | | | | | Procedures | Contact | Contact | +--------+--------+ + + + + | Closed | | Cardiology | Procedures | Pratibha Decker Echo | | | | | | MD Concha | [facility] [address] | | | | | TRAN[address]ACI | | [address] | | | | | C | | Mailcode: | | | | | ECHOCARDIOGR | | [id number] | | | | | AM, ADULT | | [facility] | | | | | | | Luz | | | | | | | [place], [place] | | | | | | | [address] | | | | | | | Phone: | | | | | | | [phone] | +--------+--------+ + + + + Diagnostic Testing (Routine) +--------+--------+ + + + + | Status | Reason | Specialty | Diagnoses / | Referred By | Referred To | | | | | Procedures | Contact | Contact | +--------+--------+ + + + + | Closed | | Radiology | Procedures | Salter, | [facility] | | | | | VASC LAB | MD Concha | [facility] [address] | | | | [address] | | [address] | | | | | [address] | | [address] | | | | | EXTREMITY | | Mailcode: | | | | | [address]IL[address] | | [id number] | | | | | | | Physician's | | | | | | | [address] | | | | | | | [place], [place] | | | | | | | [address] | | | | | | | Phone: | | | | | | | [phone] | | | | | | | Fax: | | | | | | | [phone] | +--------+--------+ + + + + Reason for Visit AUTH/CERT +--------+--------+ + [...] | +--------+ + + + + | 11/26/ | Hospital | [facility] [address] | Narendra Lunsford, | | | 2012 - | Encounter | [id number] | | | | | | [facility] | | | | 12/22/ | | [place], [place] | | | | 2012 | | [address] | | | | | | [phone] | | | +--------+ + + + [...] + + + | Blood Pressure | 151/75 | 12/22/2012 6:09 PM | | | | | PDT | | + + + + + | Pulse | 80 | 12/22/2012 6:09 PM | | | | | PDT | | + + + + + | Temperature | 36.7 C (98.1 F) | 12/22/2012 6:09 PM | | | | | PDT | | + + + + + | Respiratory Rate | 18 | 12/22/2012 6:09 PM | | | | | PDT | | + + + + + | Oxygen Saturation | 99% | 12/22/2012 6:09 PM | | | | | PDT | | + + + + + | Inhaled Oxygen | - | - | | | Concentration | | | | + + + + + | Weight | 139.6 kg (307 lb | 12/20/2012 5:51 PM | | | | 12.2 oz) | PDT | | + + + + + | Height | 188 cm (6' 2") | 12/05/2012 2:57 PM | | | | | PDT | | + + + + + | Body Mass Index | 39.51 | 12/05/2012 2:57 PM | | | | | PDT | | + + + + + documented in this encounter Discharge Summaries Kathy Castro PA - 12/25/2012 5:44 PM PDTFormatting of this note might be different f rom the original. INPATIENT PHYSICIAN DISCHARGE SUMMARY Author: SARANYA JOE Attending Physician: Narendra Lunsford MD PCP: Erick Bernstein DO Referring Physician: Kyle Chavez MD Admission Date: 11/26/2012 Discharge Date: 12/22/2012 Principal Final Diagnoses: Coronary artery disease Additional Diagnoses: Developmental delay Gout Morbid obesity BMI 42.3 Ventricular tachycardia with LV mural thrombus Hypertension Atrial fibrillation ARF on CKD requiring HD Unstable SVT requiring electrocardioversion Deconditioning dysphagia VT arrest Cardiac tamponade Agitation Respiratory failure Leukocytosis/fever Acute blood loss anemia Stress induced hyperglycemia Principal Procedure: Coronary artery bypass grafting x 3: DE LA ROSA to LAD; SVG to OM, PDA Additional Procedures: Endoscopic saphenous vein harvest RLE Emergency sternotomy and hematoma evacuation with open chest 12/04 Mediastinal washout and chest closure 12/08 Cardioversion L IJ Hemodialysis catheter placement Hemodialysis DHT and tube feeds ET tubes Leslie Chest drains Intraoperative MADHURI Central/arterial lines Epicardial pacing wires IVs PICC line CPR TTE and MADHURI Hospital Course: Mr. Josef Ramos was admitted to [facility] on 11/26/2012 for heparin bridge for LV thrombus prio r to planned CABG. He underwent CABG x 3 on 11/29/2012 - please see attached operative note f or details of this procedure. He was taken to the ICU post operatively and had the followin g hospital course: POD 1; extubated POD 2: inotropes dc'd. Heparin gtt and warfarin restarted for LV mural thrombus. Leslie dc 'd POD 3: pacing wires dc'd. Tx to telemetry floor. POD 4: Tx back to ICU for respiratory failure, cyanosis POD 5: delayed cardiac tampenade c hemodynamic compromise, VT arrest, and CPR - compression s/epi --> intubation and redo sternotomy and hematoma evacuation. Chest left open. inot ropes restarted POD 6: milrinone dc'd. Fevers: Vanco/zosyn started. Afib c RVR. Continues on heparin gtt . Warfarin held POD 7: K+ rising - nephrology consult. Vasopressors dc'd. DHT placed, TF started POD 9: mediastinal washout and chest closure. Vasopressors dc'd POD 11: vanco/zosyn dc'd. HD catheter placed POD 12: CRRT initiated POD 13: extubated. Epi dc'd. Warfarin restarted. POD 14: IHD started. POD 15: advancing diet POD 16: HD. Tx to acute care miller. Change to noc TF POD 18: warfarin held in anticipation of tunneled HD cath placement POD 19-20: increasing UOP, lytes stable, not requiring HD. Warfarin restarted POD 21: HD cath dc'd. DHT dc'd. POD 22: last drain dc'd. Heparin gtt dc'd INR therapeutic POD 23: dc to SNF Mr. Ramos participated with PT/OT, and is being discharged on ASA, bblocker, and statin f or CAD. He will continue warfarin for LV mural thrombus goal INR 2-3. Referral to Phase I I cardiac rehab has been made. Medications: Discharge Medication List as of 11/29/2012 2:13 PM CONTINUE these medications which have NOT CHANGED Details amiodarone 200 mg Oral tablet Take 2 tablets ( 400 mg) by mouth once daily, Historical Med aspirin 325 mg Oral tablet Take 1 Tab by mouth once daily., Disp-30 Tab, R-11, Fax furosemide 40 mg Oral tablet Take 40 mg by mouth once daily in the morning. , Historical M ed isosorbide mononitrate CR 30 mg Oral tablet extended release 24 hr Take 30 mg by mouth once daily in the morning. , Historical Med lisinopril 5 mg Oral tablet Take 1 Tab by mouth once daily., Disp-30 Tab, R-11, Fax metoprolol tartrate 25 mg Oral tablet Take 1 Tab by mouth two times daily., Disp-60 Tab, R- 11, Fax nitroglycerin 0.4 mg Sublingual tablet, sublingual Place 0.4 mg under tongue every five min utes as needed. Do not crush. Place under tongue and allow to dissolve. Administer every 5 minutes for a maximum of 3 doses in 15 minutes., Historical Med simvastatin 20 mg Oral tablet Take 1 Tab by mouth once daily in the evening., Disp-30 Tab, R-11, Fax spironolactone 25 mg Oral tablet Take 25 mg by mouth two times daily., Historical Med warfarin 2 mg Oral tablet Take 1 tablet ( 2.5 mg) by mouth on Tuesday, Tuesday, Tuesday, and Tuesday. Take 1/2 tablet ( 1.25 mg) daily on Tuesday and , Historical Med Discharge Vitals: BP 151/75 | Pulse 80 | Temp 36.7 C (98.1 F) | RR 18 | Ht 1.88 m (6' 2") | Wt 139.6 kg (307 lb 12.2 oz) | SpO2 99% | BMI 39.51 kg/(m^2) Discharge Labs: Lab Results Component Value Date WBC 5.3 12/22/2012 HB 8.6 12/22/2012 HCT 25.7 12/22/2012 PLT 233 12/22/2012 MCV 93.5 12/22/2012 RDW 16.4 12/22/2012 Lab Results Component Value Date NA 146 12/22/2012 K 4.1 12/22/2012 CL 114 12/22/2012 BICARB 23 12/22/2012 BUN 52 12/22/2012 CR 3.29 12/22/2012 GLU 126 12/22/2012 CA 9.0 12/22/2012 Lab Results Component Value Date INRPT 1.69* 12/22/2012 Outstanding labs/studies: INR monitoring Diet: regular Activity: sternal precautions Most recent LV Ejection Fraction: 35% Tobacco Use: Lifelong non-smoker Core Measures: Diagnosis of Acute W[place]: No Diagnosis of CHF: Yes. Patient is on an RICKIE-I/ARB.. Patient is on a beta-jessy at dis charge. Follow Up: Cardiothoracic Surgery - Narendra Lunsford MD - 2 weeks PCP - Erick Bernstein DO - on d/c from [facility] Cardiology - Kyle Chavez MD - 4-6 weeks Disposition: [facility] Condition: fair Discharging Physician: Electronically signed by: Kathy WINSTON PA-C Department of Surgery | Division of Cardiothoracic Surgery Attending Physician: Narendra Lunsford MD OPERATIVE NOTE Date: 11/29/2012 Attending Surgeon: NARENDRA LUNSFORD MD Dispatcher Refinery(s): Kathy Castro PA-C No residents of the appropriate level were available to assist with this case. Preoperative Diagnosis(s): 1. Coronary artery disease. 2. Obesity (Body mass index is 42.33 kg/(m^2). 3. LV thrombus 4. Heart Failure 5. Decreased LV systolic function Postoperative Diagnosis(s): SAME Procedures Performed: 1. Coronary artery bypass grafting x 3, Left Internal Mammary Artery (DE LA ROSA) to LAD, SVG to OM and PDA. 2. Dissection of ventricular apex from pericardium. 3. Epi-aortic US to evaluate aorta for safety of cross clamping and placement of clamp. 4. Endoscopic vein harvest RLE Anesthesia: General endotracheal. Cardiopulmonary Bypass Time: 87 minutes. Aortic Cross-Clamp Time: 66 minutes. Drains: Shabnam drain x 2, VENTRICULAR PACING WIRES , PA catheter, A-line, and Leslie. Complications: None Specimens: None Disposition: 8 CSI. Indications: Mr. Ramos is a 67 year old male who was referred from Kyle Chvaez MD and presents with 3 Vessel Coronary Artery Disease and a LV thrombus. He was anticoagulated for a period and th en is taken to the operating room for Coronary Artery Bypass. Prior to the beginning of the procedure the team paused to verify the patient's identity, a s well as the procedure to be performed and the correct side/site. All equipment required wa s ready and available. The patient was positioned appropriately. The following team members were present during the team pause: Surgeon, sociology research assistant, nursing, anesthesia, perfusion. Findings at Surgery: The sternum was normal Epiaortic US with a 12 MHz probe in the transverse and longitudinal dimension revealed (Gra de II disease). CONDUIT: The left internal mammary artery was 2.25 mm and of good quality. Saphenous vein was 4 mm in size and of good quality. CORONARY TARGETS: The LAD was 2.5 mm and GOOD The OM was 2.25 mm and GOOD The PDA was 2.0 mm and GOOD The OM2 (Left RALPH) was 1.0 mm and POOR. Procedure in detail: After the patient was properly identified, he was brought to the operating theater and plac ed supine on a well-padded operating table where general endotracheal anesthesia was adminis tered. Monitoring lines and a transesophageal echo probe were placed, a surgical pause was c onducted, and the patient was prepped and draped in the usual sterile fashion. Saphenous vein was harvested from the Right lower extremity using endoscopic technique. A midline sternotomy was made, and the left internal mammary artery was harvested with a te dious and meticulous dissection using electrocautery, sharp and blunt dissection, and small metallic clips. Due to the patient's size and body habitus this was very difficult and time consuming (additional 30 minutes) but the DE LA ROSA was of excellent quality. The patient was systemically heparinized, and the pericardium was incised. Epi-aortic Ultra sound was carried out with the above findings. Aortic, venous, and retrograde cardioplegia c annulae were placed, and the patient was put on cardiopulmonary bypass. A DLP cannula was placed in the ascending aorta for delivery of antegrade cardioplegia and venting. The aorta cross-clamped. Antegrade and retrograde cardioplegia were delivered and g ood isoelectric arrest was achieved. Throughout the case, additional doses of cardioplegia w ere delivered as needed. The LV apex was densely scarred, calcified, and fused to the perica rdium. This was taken down carefully. Care throughout the case was taken in handling the LV. Attention was first directed to the LATERAL WALL and the OM was identified. The artery was opened with a blade, and the arteriotomy was enlarged with White scissors. Using running 7-0 monofilament a end-to-side anastomosis between the saphenous vein and the OM was constructe d. The vein graft was brought around the left side of the heart and cut to length. A small o pening was made in the ascending aorta with a #11 blade and enlarged with a 4mm punch. The p roximal anastomosis was then constructed with running 6-0 Prolene. Attention was now directed to the INFERIOR WALL and the PDA was identified. The artery was opened with a blade, and the arteriotomy was enlarged with White scissors. Using running 7-0 monofilament an end-to-side anastomosis between the saphenous vein and the PDA was construc narcisa. The vein graft was brought around the right side of the heart and cut to length. A smal l opening was made in the ascending aorta with a #11 blade and enlarged with a 4mm punch. Th e proximal anastomosis was then constructed with running 6-0 Prolene. The LAD was identified, opened with a blade, and the arteriotomy enlarged with White scisso rs. The pericardium along the left side of the heart was slit to allow the pedicle to lie fl at along the mediastinum. Using running 7-0 monofilament, an end-to-side anastomosis between the left internal mammary artery and the LAD was constructed. De-airing maneuvers were carried out and the cross-clamp was removed. Ventricular pacing wi res were placed. The DLP cannula was removed. After MADHURI confirmed no air in the left side, t he patient was from cardiopulmonary bypass, the venous return cannula removed, pro tamine administered, and the aortic cannula was removed. Chest drains were placed, and a careful check for hemostasis was made. The sternum was approximated with multiple wires, the soft tissue overlaying the sternum wa s closed with multiple layers of absorbable suture, and a sterile dressing was applied. Lowe r extremity incisions were closed with absorbable suture. At the conclusion of the case, all sponge and needle counts were correct x 2. The patient tolerated the procedure well and pos toperatively, he was taken to the surgical intensive care unit. Narendra Lunsford MD, FACS, FACC [employer], Department of Surgery Head, Adult Cardiac Surgery Co-Director, Multidisciplinary [facility] | [email or web address] documented in this encounter Medications at Time of [...] | | | 13 | | | release(/DANIEL) | | | | | | + [...] documented as of this encounter Progress Notes Kathy Castro PA - 12/21/2012 2:54 PM PDTFormatting of this note might be different f rom the original. Cardiothoracic Surgery Progress Note Procedure: CABG/urgent re-entry sternotomy for tampenade with open chest/washout and chest closure POD # Past 24 hour Events HD cath dc'd. Heparin gtt dc'd DHT dc'd Subjective: Tired from standing c PT Objective: Last Vitals: BP 120/66 | Pulse 83 | Temp 36.9 C (98.4 F) | RR 18 | Ht 1.88 m (6' 2") | Wt 139.6 kg (307 lb 12.2 oz) | SpO2 97% | BMI 39.51 kg/(m^2) 24 Hour Vital Min/Max: Systolic (24hrs), Av mmHg, Min:109 mmHg, Max:144 mmHg Diastolic (24hrs), Av mmHg, Min:62 mmHg, Max:78 mmHg Pulse Av.5 Min: 79 Max: 84 Temp Av.8 C (98.2 F) Min: 36.3 C (97.3 F) Max: 37.2 C (99 F) Resp Av Min: 16 Max: 18 SpO2 Av.7 % Min: 94 % Max: 100 % Intake/Output Summary (Last 24 hours) at 12/21/12 1454 Last data filed at 12/21/12 1400 Gross per 24 hour Intake 1189 ml Output 1375 ml Net -186 ml Telemetery: NSR Neuro not vocal, follows commands CV RRR, no M/R/G Resp CTAB. No wheezes/rhonchi/rales GI NTND Incisions Sternal incision cdi Chemistries: Last 72 Hours (or 3 results): Recent Labs Basename 12/21/12 0622 12/20/12 0603 12/19/12 0503 NA 147* 148* 147* K 4.3 3.9 4.0 CL 114* 112* 113* BICARB 23 24 23 BUN 55* 57* 59* CR 3.52* 3.64* 3.79* CA 9.1 8.7 8.8 MG -- -- 2.5 PO4 4.1 3.6 3.4 CBC with diff last 72 hours (or 3 results) Recent Labs Basename 12/20/12 1324 12/19/12 0618 WBC 7.7 7.9 HB 8.6* 8.4* HCT 25.5* 24.1* PLT 216 220 NEUTROPERC -- -- BANDPCT -- -- LYMPHPERC -- -- MONOPERC -- -- BASOPERC -- -- EOSPERC -- -- Lab Results Component Value Date INRPT 1.75* 12/21/2012 Assessment and Plan: 67M POD 22 CABG/POD 17 emergent reentry for tampenade/POD 13 washout/chest closure Operative issues: CAD s/p CABG: cont ASA, statin. No bblocker for now allow slightly elevated BPs in hopes of renal recovery Drain: likely d/c shabnam tomorrow Pain: cont current regimen Other issues: KOURTNEY: Appreciate nephrology involvement. HD cath dc'd. Good UOP, renal recovery, lytes wnl LV thrombus: cont warfarin Goal INR 2-3 Post op Afib: cont amio - currently NSR Dysphagia: adv diet per recs. Encourage PO intake Stress induced hyperglycemia: ISS d/c scheduled insulin Deconditioning: PT/OT Dispo: SNF 1-2 days pending placement Electronically signed by: Kathy WINSTON, PA-C Department of Surgery | Division of Cardiothoracic Surgery acek, Joseph - 12/20 3:37 PM PDTCardiac Surgery Note Left IJ dialysis line discontinued. Heparin held x 2 hours (INR 1.8). Manual pressure claritza lied to puncture site x 5 minutes. No active bleeding after removal. Occlusive dressing ap plied to site. Tolerated well by Mr. Ramos Resume heparin gtt in 1 hour (Electronically Signed) Joseph Lewis PA-C [facility] Cardiac Surgery loria KathySARANYA Hammond - 12/20 1:39 PM PDT Cardiothoracic Surgery Progress Note Procedure: CABG/urgent re-entry sternotomy for tampenade with open chest/washout and chest closure POD # 21// Past 24 hour Events No need for HD since Sat 12/16 Subjective: Tired again today Denies pain L neck HD cath Objective: Last Vitals: BP 122/73 | Pulse 81 | Temp 36.7 C (98.1 F) | RR 16 | Ht 1.88 m (6' 2") | Wt 140.5 kg (309 lb 11.9 oz) | SpO2 97% | BMI 39.77 kg/(m^2) 24 Hour Vital Min/Max: Systolic (24hrs), Av mmHg, Min:113 mmHg, Max:124 mmHg Diastolic (24hrs), Av mmHg, Min:56 mmHg, Max:73 mmHg Pulse Av Min: 79 Max: 92 Temp Av.6 C (97.8 F) Min: 36.3 C (97.3 F) Max: 36.8 C (98.2 F) Resp Av.8 Min: 16 Max: 18 SpO2 Av.4 % Min: 96 % Max: 99 % Intake/Output Summary (Last 24 hours) at 12/20/12 1339 Last data filed at 12/20/12 1100 Gross per 24 hour Intake 2091.43 ml Output 309 ml Net 1782.43 ml Telemetery: NSR 80 Neuro A&Ox3, grossly non focal exam CV RRR, no M/R/G Resp distant lung sounds. CTAB. No wheezes/rhonchi/rales. No supplemental O2 GI NTND, +BS Incisions Sternal incision cdi - jose in place. RLE incision cdi Chemistries: Last 72 Hours (or 3 results): Recent Labs Basename 12/20/12 0603 12/19/12 0503 12/18/12 0443 NA 148* 147* 145 K 3.9 4.0 3.9 CL 112* 113* 111* BICARB 24 23 23 BUN 57* 59* 57* CR 3.64* 3.79* 3.74* CA 8.7 8.8 8.8 MG -- 2.5 2.3 PO4 3.6 3.4 4.0 CBC with diff last 72 hours (or 3 results) Recent Labs Basename 12/19/12 0618 12/18/12 0443 WBC 7.9 8.3 HB 8.4* 8.2* HCT 24.1* 24.6* PLT 220 221 NEUTROPERC -- -- BANDPCT -- -- LYMPHPERC -- -- MONOPERC -- -- BASOPERC -- -- EOSPERC -- -- Assessment and Plan: 67M POD 21 CABG/POD 16 emergent reentry for tampenade/POD 12 washout/chest closure Operative issues: CAD s/p CABG: cont ASA, statin. No bblocker for now allow slightly elevated BPs in hopes of renal recovery Drain: cont shabnam until therapeutic on warfarin and off heparin Pain: cont current regimen Other issues: KOURTNEY: Appreciate nephrology involvement. Unlikely to require HD - will cancel permcath ralph cement for tomorrow, d/c HD cath tomorrow as long as continues good UOP and lytes remain sta ble LV thrombus: heparin gtt. Restart warfarin tonight. Goal INR 2-3 Post op Afib: cont amio - currently NSR Dysphagia: adv diet per recs. D/c DHT today Stress induced hyperglycemia: cont insulin - will change regimen Deconditioning: PT/OT Dispo: 11K cont care - SNF end of week/beg next week Electronically signed by: Kathy WINSTON, PA-C Department of Surgery | Division of Cardiothoracic Surgery Mehdi Earl M D - 12/20/2012 7:30 AM PDTI performed a history and physical examination of the patient and discussed his management with the resident. I reviewed the resident s note and agree wit h the documented findings and plan of care. Pt appears ot be recovering from KOURTNEY. Will sign off and set up outpatient follow up. MD MEHDI Moses MD [facility] [id number] [place] [address] [facility] DEPARTMENT: [id number]- [facility] NEPHROLOGY [facility] Place of Service: - IP CSN: [id number] Suggested Modifier: GC Resident Involved rotain, Josse Black MD - 12/20/2012 7:30 AM PDT Nephrology Consult Progress Note IDENTIFICATION: PATIENT NAME: Josef Ramos : 1945 DATE OF ADMISSION: 11/26/2012 DATE OF SERVICE: 12/20/2012 HOSPITAL DAY: 24 PCP: Erick Bernstein DO CHIEF COMPLAINT: f/u KOURTNEY IMPRESSION & RECOMMENDATIONS: Josef Ramos is a 67 y.o. Man s/p recent CABG c/b LV thrombus->circ collapse d/t pericard ial tamponade req bedside sternotomy and evacuation of clot with chest closure 12/08 c/b nono liguric KOURTNEY 2/2 ATN, remains HD dependant. PROBLEM LIST: KOURTNEY on CKD- Baseline 1.5-1.7. Non-oliguric, secondary to ATN. Now recovering as sCr and B UN down trending. He has no dialytic needs today and do not anticipate that he will need fu rther dialysis. Would cancel permcath placement scheduled for tomorrow. If sCr is down riley nding tomorrow, would removed temporary HD catheter as well. Recovery from ATN can take wee ks to months, would check a sCr 1 month after discharge to ensure that his sCr has returned to baseline. Hypernatremia- Worsening, likely due to impaired access to free water with increased free w ater losses from post-ATN diuresis. His free water deficit is 4.8L, would increase free tony er today to 2 to 2.5 liters, this can be done by increasing free water flushes, oral water i ntake, or starting D5W. RECOMMENDATIONS: See recommendations above in bold. We will sign off, please call with questions. Patient was seen and staffed with Dr. Blue, who agrees with the assessment and plan. Josse Rojas MD Nephrology Fellow Pager [phone] SUBJECTIVE & INTERVAL EVENTS: No significant overnight events. No new complaints. sCr down today, UOP not quantified. Pt feeling thirsty. REVIEW OF SYSTEMS: All other pertinent systems were reviewed and are negative unless otherwise noted above. MEDICATIONS: Prior to Admission Medications Medication amiodarone 200 mg Oral tablet Take 2 tablets ( 400 mg) by mouth once daily aspirin 325 mg Oral tablet Take 1 Tab by mouth once daily. furosemide 40 mg Oral tablet Take 40 mg by mouth once daily in the morning. isosorbide mononitrate CR 30 mg Oral tablet extended release 24 hr Take 30 mg by mouth once daily in the morning. lisinopril 5 mg Oral tablet Take 1 Tab by mouth once daily. metoprolol tartrate 25 mg Oral tablet Take 1 Tab by mouth two times daily. nitroglycerin 0.4 mg Sublingual tablet, sublingual Place 0.4 mg under tongue every five minutes as needed. Do not crush. Place under tongue an d allow to dissolve. Administer every 5 minutes for a maximum of 3 doses in 15 minutes. simvastatin 20 mg Oral tablet Take 1 Tab by mouth once daily in the evening. spironolactone 25 mg Oral tablet Take 25 mg by mouth two times daily. warfarin 2 mg Oral tablet Take 1 tablet ( 2.5 mg) by mouth on Tuesday, Tuesday, Tuesday, Tuesday and Tuesday. Take 1/ 2 tablet ( 1.25 mg) daily on Tuesday and Scheduled Medications Medication Dose Route Frequency Last Rate acetaminophen (aka TYLENOL) oral suspension 650 mg 650 mg Oral Q6H amiodarone (aka CORDARONE) tablet 200 mg 200 mg Feeding Tube BID aspirin chewable tablet 81 mg 81 mg Feeding Tube DAILY senna (aka SENOKOT) liquid 8.8 mg 5 mL Feeding Tube BID And docusate sodium liquid 50 mg 50 mg Feeding Tube BID folic acid (aka FOLVITE) tablet 1 mg 1 mg Feeding Tube DAILY insulin NPH (aka HUMULIN N) injection 7 Units 7 Units Subcutaneous Q8H rkuymujfxnvd-wihn-ivcnwewm (aka CEROVITE) liquid 15 mL 15 mL Feeding Tube DAILY nystatin (aka MYCOSTATIN) suspension 500,000 Units 500,000 Units Oral QID omeprazole (aka PRILOSEC) oral suspension 40 mg 40 mg Feeding Tube DAILY simvastatin (aka ZOCOR) tablet 20 mg 20 mg Feeding Tube QPM thiamine tablet 100 mg 100 mg Feeding Tube DAILY PRN Meds: PRN Medications Medication Dose Route Frequency Last Rate bisacodyl (aka DULCOLAX) suppository 10 mg 10 mg Rectal BID PRN dextrose 50 % injection 12.5 g 25 mL Intravenous PRN glucagon (aka GLUCAGEN) injection 1 mg 1 mg Intramuscular PRN glucose chewable tablet 16 g 16 g Oral Q15MIN PRN guar gum (aka BENEFIBER) oral powder 1 Packet 1 Packet Feeding Tube DAILY PRN insulin lispro (aka HUMALOG) injection Subcutaneous PRN menthol-zinc oxide (aka CALAZIME) topical paste Topical QID PRN ondansetron (aka ZOFRAN) injection 4 mg 4 mg Intravenous Q12H PRN Stopped (12/08/12 14 45) oxyCODONE (immediate release) (aka ROXICODONE) liquid 5-15 mg 5-15 mg Feeding Tube Q4H PRN polyethylene glycol (aka MIRALAX) powder 17 g 17 g Feeding Tube DAILY PRN simethicone chew (aka MYLICON) tablet 80 mg 80 mg Feeding Tube TID PRN ALLERGIES: No Known Allergies PHYSICAL EXAM: Last Vitals: BP 117/60 | Pulse 79 | Temp 36.4 C (97.5 F) | RR 18 | Ht 1.88 m (6' 2") | Wt 140.5 kg (309 lb 11.9 oz) | SpO2 99% | BMI 39.77 kg/(m^2)FIO2 (%): 40 fraction of O2 (12/12/12 0900) O2 Delivery Device: None (room air) (12/20/12 0536) Intake/Output Summary (Last 24 hours) at 12/20/12 0730 Last data filed at 12/20/12 0700 Gross per 24 hour Intake 2192.43 ml Output 377 ml Net 1815.43 ml General: Resting comfortably, no distress. Appears stated age and is pleasant. HEENT: NCAT, anicteric, MMM, oropharynx is clear without lesions. NGT in place. Pulm: Clear to auscultation bilaterally, normal respiratory effort. CV: Regular rhythm, normal rate. S1 and S2 normal, no m/r/g. Abd: Soft, non-tender, non-distended, normoactive bowel sounds. Ext: WWP, trace edema. No cyanosis. Skin: Warm and dry. No rashes or concerning lesions noted. Neuro: Grossly non-focal Access: Temporary HD catheter in place. LABS/STUDIES: Recent Labs Basename 12/20/12 0603 12/19/12 0503 12/18/12 0443 12/12/12 0400 12/11/12 0200 12/10/12 020 5 NA 148* 147* 145 -- -- -- K 3.9 4.0 3.9 -- -- -- CL 112* 113* 111* -- -- -- BICARB 24 23 -- -- -- BUN 57* 59* 57* -- -- -- CR 3.64* 3.79* 3.74* -- -- -- AST -- -- -- 156* 216* 286* ALT -- -- -- 771* 1100* 1423* TBILI -- -- -- 2.6* 3.4* 4.6* AP -- -- -- 229* 199* 172* TP -- -- -- 6.5 6.2 5.9* Recent Labs Basename 12/20/12 0603 12/19/12 0503 12/18/1244212/17/12 0529 CA 8.7 8.8 8.8 -- MG -- 2.5 2.3 2.1 PO4 3.6 3.4 4.0 -- ALB 2.2* 2.2* 2.2* -- PTH -- -- -- -- Recent Labs Basename 12/19/12 0618 12/18/12 0443 12/17/12 0529 12/12/12 0400 12/11/12 0200 12/10/12 020 5 WBC 7.9 8.3 8.5 -- -- -- HB 8.4* 8.2* 8.6* -- -- -- HCT 24.1* 24.6* 25.4* -- -- -- PLT 220 221 199 -- -- -- NEUTROPERC -- -- -- 80* 79* 84* BANDPCT -- -- -- 6 6 3 LYMPHPERC -- -- -- 5* 5* 2* MONOPERC -- -- -- 6 6 7 BASOPERC -- -- -- 0 0 1 EOSPERC -- -- -- 3 1 3 Kathy York P A - 12/19/2012 10:56 AM PDT Cardiothoracic Surgery Progress Note Procedure: CABG/urgent re-entry sternotomy for tampenade with open chest/washout and chest closure POD # /10/08 Past 24 hour Events Increased UOP yesterday, lytes stable - holding off on HD today Subjective: "I'm tired" Sleeping Per nursing just had much activity c therapy - was more awake earlier Objective: Last Vitals: BP 126/66 | Pulse 91 | Temp 36.3 C (97.3 F) | RR 18 | Ht 1.88 m (6' 2") | Wt 161.3 kg (355 lb 9.6 oz) | SpO2 100% | BMI 45.66 kg/(m^2) 24 Hour Vital Min/Max: Systolic (24hrs), Av mmHg, Min:104 mmHg, Max:126 mmHg Diastolic (24hrs), Av mmHg, Min:49 mmHg, Max:68 mmHg Pulse Av.8 Min: 86 Max: 91 Temp Av.6 C (97.9 F) Min: 36.3 C (97.3 F) Max: 36.9 C (98.4 F) Resp Av.8 Min: 18 Max: 20 SpO2 Av.7 % Min: 94 % Max: 100 % Intake/Output Summary (Last 24 hours) at 12/19/12 1056 Last data filed at 12/19/12 0600 Gross per 24 hour Intake 1562.25 ml Output 1055 ml Net 507.25 ml Telemetery: ST HR 94 Neuro sleeping, awakens to light touch, following commands CV Regular, tachy, no M/R/G. 2+ LE edema Resp distant lung sounds. CTAB. No wheezes/rhonchi/rales. Dim bilat bases GI NTND, +BS. DHT in place Incisions Sternal incision cdi c skin jose. Shabnam x [address] RLE incision cdi Chemistries: Last 72 Hours (or 3 results): Recent Labs Basename 12/19/12 0503 12/18/12 0443 12/17/12 0529 NA 147* 145 143 K 4.0 3.9 3.8 CL 113* 111* 108 BICARB 23 23 24 BUN 59* 57* 46* CR 3.79* 3.74* 3.08* CA 8.8 8.8 8.6 MG 2.5 2.3 2.1 PO4 3.4 4.0 3.3 CBC with diff last 72 hours (or 3 results) Recent Labs Basename 12/19/12 0618 12/18/12 0443 12/17/12 0529 WBC 7.9 8.3 8.5 HB 8.4* 8.2* 8.6* HCT 24.1* 24.6* 25.4* PLT 220 221 199 NEUTROPERC -- -- -- BANDPCT -- -- -- LYMPHPERC -- -- -- MONOPERC -- -- -- BASOPERC -- -- -- EOSPERC -- -- -- Lab Results Component Value Date INRPT 1.79* 12/19/2012 Assessment and Plan: 67M POD 20 CABG/POD 15 emergent reentry for tampenade/POD 11 washout/chest closure Operative issues: CAD s/p CABG: cont ASA, statin. No bblocker for now allow slightly elevated BPs in hopes o f renal recovery Drain: cont shabnam until therapeutic on warfarin and off heparin Pain: cont current regimen Other issues: KOURTNEY: much improved UOP yesterday, lytes stable. Per nephrology, no HD today. Will watch a nd hope to d/c orders for tunneled HD cath (tentatively planned for th allowing for INR t o decrease) LV thrombus: currently heparin gtt only holding warfarin. When resumes warfarin, goal INR 2-3. Increase heparin for goal heparin level 0.3-0.5. Post op Afib: cont amio - currently NSR Dysphagia: calorie counts. Cont noc TF. Encourage PO intake. Cont speech therapy for dys phagia Stress induced hyperglycemia: cont insulin Deconditioning: PT/OT Dispo: 11K cont care Electronically signed by: Kathy WINSTON, PA-C Department of Surgery | Division of Cardiothoracic Surgery Mehdi Earl M D - 12/19/2012 7:17 AM PDTI performed a history and physical examination of the patient and discussed his management with the resident. I reviewed the resident s note and agree wit h the documented findings and plan of care. MD MEHDI Moses MD [facility] [id number] [address] [facility] DEPARTMENT: [id number] NE[facility]OLOGY [facility] Place of Service: CSN: [id number] Suggested Modifier: GC Resident Involved Josse Mcgowan MD - 12/19/2012 7:17 AM PDT Nephrology Consult Progress Note IDENTIFICATION: PATIENT NAME: Josef Ramos : 1945 DATE OF ADMISSION: 11/26/2012 DATE OF SERVICE: 12/19/2012 HOSPITAL DAY: PCP: Erick Bernstein DO CHIEF COMPLAINT: f/u KOURTNEY IMPRESSION & RECOMMENDATIONS: Josef Ramos is a 67 y.o. Man s/p recent CABG c/b LV thrombus->circ collapse d/t pericard ial tamponade req bedside sternotomy and evacuation of clot with chest closure 12/08 c/b nono liguric KOURTNEY 2/2 ATN, remains HD dependant. PROBLEM LIST: KOURTNEY on CKD- Baseline 1.5-1.7. Non-oliguric, secondary to ATN. May be starting to recover as there was minimal change in his sCr and BUN in the last 24 hours. He has no dialytic nee ds today, will monitor labs as it appears he is recovering. If sCr down trending tomorrow, would cancel permcath placement as he would likely not need further [employer]. Hypernatremia- Mild, likely due to impaired access to free water. His free water deficit i s 4.8L, would increase free water today to 2 to 2.5 liters, this can be done by increasing f ree water flushes, oral water intake, or starting D5W. RECOMMENDATIONS: See recommendations above in bold. We will continue to follow and offer additional recommendations as his clinical course unfo lds. Patient was seen and staffed with Dr. Blue, who agrees with the assessment and plan. Josse Rojas MD Nephrology Fellow Pager [phone] SUBJECTIVE & INTERVAL EVENTS: No significant overnight events. No new complaints. sCr nearly unchanged without HD yest erday. UOP increasing as well. Pt feeling thirsty. REVIEW OF SYSTEMS: All other pertinent systems were reviewed and are negative unless otherwise noted above. MEDICATIONS: Prior to Admission Medications Medication amiodarone 200 mg Oral tablet Take 2 tablets ( 400 mg) by mouth once daily aspirin 325 mg Oral tablet Take 1 Tab by mouth once daily. furosemide 40 mg Oral tablet Take 40 mg by mouth once daily in the morning. isosorbide mononitrate CR 30 mg Oral tablet extended release 24 hr Take 30 mg by mouth once daily in the morning. lisinopril 5 mg Oral tablet Take 1 Tab by mouth once daily. metoprolol tartrate 25 mg Oral tablet Take 1 Tab by mouth two times daily. nitroglycerin 0.4 mg Sublingual tablet, sublingual Place 0.4 mg under tongue every five minutes as needed. Do not crush. Place under tongue an d allow to dissolve. Administer every 5 minutes for a maximum of 3 doses in 15 minutes. simvastatin 20 mg Oral tablet Take 1 Tab by mouth once daily in the evening. spironolactone 25 mg Oral tablet Take 25 mg by mouth two times daily. warfarin 2 mg Oral tablet Take 1 tablet ( 2.5 mg) by mouth on Tuesday, Tuesday, Tuesday, Tuesday and Tuesday. Take 1/ 2 tablet ( 1.25 mg) daily on Tuesday and Scheduled Medications Medication Dose Route Frequency Last Rate acetaminophen (aka TYLENOL) tablet 650 mg 650 mg Feeding Tube Q6H amiodarone (aka CORDARONE) tablet 200 mg 200 mg Feeding Tube BID aspirin chewable tablet 81 mg 81 mg Feeding Tube DAILY senna (aka SENOKOT) liquid 8.8 mg 5 mL Feeding Tube BID And docusate sodium liquid 50 mg 50 mg Feeding Tube BID folic acid (aka FOLVITE) tablet 1 mg 1 mg Feeding Tube DAILY insulin lispro (aka HUMALOG) injection Subcutaneous TID AC insulin NPH (aka HUMULIN N) injection 7 Units 7 Units Subcutaneous Q8H huiqicegzjgy-vddf-mjdfwgem (aka CEROVITE) liquid 15 mL 15 mL Feeding Tube DAILY nystatin (aka MYCOSTATIN) suspension 500,000 Units 500,000 Units Oral QID omeprazole (aka PRILOSEC) oral suspension 40 mg 40 mg Feeding Tube DAILY simvastatin (aka ZOCOR) tablet 20 mg 20 mg Oral QPM thiamine tablet 100 mg 100 mg Feeding Tube DAILY PRN Meds: PRN Medications Medication Dose Route Frequency Last Rate bisacodyl (aka DULCOLAX) suppository 10 mg 10 mg Rectal BID PRN dextrose 50 % injection 12.5 g 25 mL Intravenous PRN glucagon (aka GLUCAGEN) injection 1 mg 1 mg Intramuscular PRN glucose chewable tablet 16 g 16 g Oral Q15MIN PRN guar gum (aka BENEFIBER) oral powder 1 Packet 1 Packet Feeding Tube DAILY PRN insulin lispro (aka HUMALOG) injection Subcutaneous PRN menthol-zinc oxide (aka CALAZIME) topical paste Topical QID PRN ondansetron (aka ZOFRAN) injection 4 mg 4 mg Intravenous Q12H PRN Stopped (12/08/12 14 45) oxyCODONE (immediate release) (aka ROXICODONE) liquid 5-15 mg 5-15 mg Feeding Tube Q4H PRN polyethylene glycol (aka MIRALAX) powder 17 g 17 g Feeding Tube DAILY PRN simethicone chew (aka MYLICON) tablet 80 mg 80 mg Feeding Tube TID PRN ALLERGIES: No Known Allergies PHYSICAL EXAM: Last Vitals: BP 126/64 | Pulse 89 | Temp 36.3 C (97.3 F) | RR 18 | Ht 1.88 m (6' 2") | Wt 161.3 kg (355 lb 9.6 oz) | SpO2 99% | BMI 45.66 kg/(m^2)FIO2 (%): 40 fraction of O2 (12/12/12 0900) O2 Delivery Device: None (room air) (12/19/12 0439) Intake/Output Summary (Last 24 hours) at 12/19/12 0717 Last data filed at 12/19/12 0600 Gross per 24 hour Intake 1402.25 ml Output 1255 ml Net 147.25 ml General: Alert, cooperative, no distress. Appears stated age and is pleasant. HEENT: NCAT, anicteric, MMM, oropharynx is clear without lesions. NGT in place. Pulm: Clear to auscultation bilaterally, normal respiratory effort. CV: Regular rhythm, normal rate. S1 and S2 normal, no m/r/g. Abd: Soft, non-tender, non-distended, normoactive bowel sounds. Ext: WWP, trace edema. No cyanosis. Skin: Warm and dry. No rashes or concerning lesions noted. Neuro: Grossly non-focal LABS/STUDIES: Recent Labs Basename 12/19/1250212/18/1244212/17/1252812/12/12 0400 12/11/12 0200 12/10/12 020 5 NA 147* 145 143 -- -- -- K 4.0 3.9 3.8 -- -- -- CL 113* 111* 108 -- -- -- BICARB 24 -- -- -- BUN 59* 57* 46* -- -- -- CR 3.79* 3.74* 3.08* -- -- -- AST -- -- -- 156* 216* 286* ALT -- -- -- 771* 1100* 1423* TBILI -- -- -- 2.6* 3.4* 4.6* AP -- -- -- 229* 199* 172* TP -- -- -- 6.5 6.2 5.9* Recent Labs Basename 12/19/1250212/18/1244212/17/12528 CA 8.8 8.8 8.6 MG 2.5 2.3 2.1 PO4 3.4 4.0 3.3 ALB 2.2* 2.2* 2.2* PTH -- -- -- Recent Labs Basename 12/19/12 0618 12/18/12 0443 12/17/12 0529 12/12/12 0400 12/11/12 0200 12/10/12 020 5 WBC 7.9 8.3 8.5 -- -- -- HB 8.4* 8.2* 8.6* -- -- -- HCT 24.1* 24.6* 25.4* -- -- -- PLT 220 221 199 -- -- -- NEUTROPERC -- -- -- 80* 79* 84* BANDPCT -- -- -- 6 6 3 LYMPHPERC -- -- -- 5* 5* 2* MONOPERC -- -- -- 6 6 7 BASOPERC -- -- -- 0 0 1 EOSPERC -- -- -- 3 1 3 Johnny Morataya PA- C - 12/18/2012 10:06 AM PDT Cardiothoracic Surgery Progress Note JOHNNY RASCON PA-C Procedure: CABG with delayed tamponade POD # 19 Past 24 hour Events No events Subjective: Pt without complaints. Denies pain Objective: Last Vitals: BP 130/71 | Pulse 88 | Temp 37.1 C (98.8 F) | RR 20 | Ht 1.88 m (6' 2") | Wt 157.3 kg (346 lb 12.5 oz) | SpO2 95% | BMI 44.52 kg/(m^2) 24 Hour Vital Min/Max: Systolic (24hrs), Av mmHg, Min:110 mmHg, Max:138 mmHg Diastolic (24hrs), Av mmHg, Min:53 mmHg, Max:71 mmHg Pulse Av.8 Min: 84 Max: 90 Temp Av.7 C (98 F) Min: 36.4 C (97.5 F) Max: 37.1 C (98.8 F) Resp Av.8 Min: 16 Max: 20 SpO2 Av.5 % Min: 95 % Max: 98 % Intake/Output Summary (Last 24 hours) at 12/18/12 1006 Last data filed at 12/18/12 0832 Gross per 24 hour Intake 1402 ml Output 1070 ml Net 332 ml Telemetry: Sinus Neuro NAD CV RRR, no murmurs Resp CTA B. No wheezes, rhonchi GI NTND, normoactive bowel sounds Incisions Healing well without sign of infection Chemistries: Last 72 Hours (or 3 results): Recent Labs Basename 12/18/12 0443 12/17/12 0529 12/16/12 0520 NA 145 143 147* K 3.9 3.8 3.7 CL 111* 108 111* BICARB BUN 57* 46* 58* CR 3.74* 3.08* 3.56* CA 8.8 8.6 8.7 MG 2.3 2.1 2.3 PO4 4.0 3.3 3.5 CBC with diff last 72 hours (or 3 results) Recent Labs Basename 12/18/123 12/17/12 0529 12/16/12 0520 WBC 8.3 8.5 7.8 HB 8.2* 8.6* 9.1* HCT 24.6* 25.4* 26.8* PLT 221 199 203 NEUTROPERC -- -- -- BANDPCT -- -- -- LYMPHPERC -- -- -- MONOPERC -- -- -- BASOPERC -- -- -- EOSPERC -- -- -- Assessment and Plan: 67 yo male, s/p CABG with delayed tamponade requiring emergent sternotomy Operative issues: CAD - Cont ASA, Zocor LV thrombus - Cont heparin infusion. Will hold Coumadin for now in anticipation of tunnele d line placement. Goal heparin level .3-.5. Dr Lunsford recommends long-term anticoagulation with Coumadin. Drain - Cont until therapeutic on Coumadin, off heparin Other issues: Post-op atrial fibrillation - Cont PO Amio. Renal insufficiency - HD per Nephrology. Will need HD as outpatient. Contacted IR today a bout tunneled line placement. Request INR <1.5. Will hold Coumadin. Will need to be NPO p rior to placement, planning for . Dysphagia - Cont nightly TF. Minimal PO intake. Will start calorie counts Hyperglycemia - Cont current regimen, CBGs at goal Deconditioned - Cont PT/OT Code status - DNR/DNI Continue care Electronically signed by: JOHNNY RASCON PA-C Division of Cardiothoracic Surgery [facility] Mail Code [id number] [facility] [id number] Mehdi Earl M D - 12/18/2012 8:04 AM PDTI performed a history and physical examination of the patient and discussed his management with the resident. I reviewed the resident s note and agree wit h the documented findings and plan of care. MD MEHDI Moses MD [id number] [place] [address] [facility] DEPARTMENT: [id number] [facility] NEPHROLOGY [facility] Place of Service: CSN: [id number] Suggested Modifier: GC Resident Involved Josse Mcgowan MD - 12/18/2012 8:04 AM PDT Nephrology Consult Progress Note IDENTIFICATION: PATIENT NAME: Josef Ramos : 1945 DATE OF ADMISSION: 11/26/2012 DATE OF SERVICE: 12/18/2012 HOSPITAL DAY: PCP: Erick Bernstein DO CHIEF COMPLAINT: f/u KOURTNEY IMPRESSION & RECOMMENDATIONS: Josef Ramos is a 67 y.o. Man s/p recent CABG c/b LV thrombus->circ collapse d/t pericard ial tamponade req bedside sternotomy and evacuation of clot with chest closure 12/08 c/b nono liguric KOURTNEY 2/2 ATN, remains HD dependant. PROBLEM LIST: KOURTNEY on CKD- Baseline 1.5-1.7. Non-oliguric, secondary to ATN. No evidence of renal recove ry yet, will consider ESRD until e/o recovery. Will assess for HD needs daily, plan for T-T h-Sat schedule until evidence of recovery. Recovery from ATN can take weeks to months, woul d start planning for outpatient HD- alert CM and order HCV Ab, HBVsAb, and try to arrange [facility] for [facility] this week. RECOMMENDATIONS: See recommendations above in bold. We will continue to follow and offer additional recommendations as his clinical course unfo lds. Patient was seen and staffed with Dr. Blue, who agrees with the assessment and plan. Josse Rojas MD Nephrology Fellow Pager [phone] SUBJECTIVE & INTERVAL EVENTS: No significant overnight events. No new complaints. sCr rising. REVIEW OF SYSTEMS: All other pertinent systems were reviewed and are negative unless otherwise noted above. MEDICATIONS: Prior to Admission Medications Medication amiodarone 200 mg Oral tablet Take 2 tablets ( 400 mg) by mouth once daily aspirin 325 mg Oral tablet Take 1 Tab by mouth once daily. furosemide 40 mg Oral tablet Take 40 mg by mouth once daily in the morning. isosorbide mononitrate CR 30 mg Oral tablet extended release 24 hr Take 30 mg by mouth once daily in the morning. lisinopril 5 mg Oral tablet Take 1 Tab by mouth once daily. metoprolol tartrate 25 mg Oral tablet Take 1 Tab by mouth two times daily. nitroglycerin 0.4 mg Sublingual tablet, sublingual Place 0.4 mg under tongue every five minutes as needed. Do not crush. Place under tongue an d allow to dissolve. Administer every 5 minutes for a maximum of 3 doses in 15 minutes. simvastatin 20 mg Oral tablet Take 1 Tab by mouth once daily in the evening. spironolactone 25 mg Oral tablet Take 25 mg by mouth two times daily. warfarin 2 mg Oral tablet Take 1 tablet ( 2.5 mg) by mouth on Tuesday, Tuesday, Tuesday, Tuesday and Tuesday. Take 1/ 2 tablet ( 1.25 mg) daily on Tuesday and Scheduled Medications Medication Dose Route Frequency Last Rate acetaminophen (aka TYLENOL) tablet 650 mg 650 mg Feeding Tube Q6H amiodarone (aka CORDARONE) tablet 200 mg 200 mg Feeding Tube BID aspirin chewable tablet 81 mg 81 mg Feeding Tube DAILY senna (aka SENOKOT) liquid 8.8 mg 5 mL Feeding Tube BID And docusate sodium liquid 50 mg 50 mg Feeding Tube BID folic acid (aka FOLVITE) tablet 1 mg 1 mg Feeding Tube DAILY insulin lispro (aka HUMALOG) injection Subcutaneous TID AC insulin NPH (aka HUMULIN N) injection 7 Units 7 Units Subcutaneous Q8H fywejsmkrjzw-jxsv-vuvzajdy (aka CEROVITE) liquid 15 mL 15 mL Feeding Tube DAILY nystatin (aka MYCOSTATIN) suspension 500,000 Units 500,000 Units Oral QID omeprazole (aka PRILOSEC) oral suspension 40 mg 40 mg Feeding Tube DAILY simvastatin (aka ZOCOR) tablet 20 mg 20 mg Oral QPM thiamine tablet 100 mg 100 mg Feeding Tube DAILY warfarin (aka COUMADIN) tablet 2.5 mg 2.5 mg Feeding Tube QPM PRN Meds: PRN Medications Medication Dose Route Frequency Last Rate bisacodyl (aka DULCOLAX) suppository 10 mg 10 mg Rectal BID PRN dextrose 50 % injection 12.5 g 25 mL Intravenous PRN glucagon (aka GLUCAGEN) injection 1 mg 1 mg Intramuscular PRN glucose chewable tablet 16 g 16 g Oral Q15MIN PRN guar gum (aka BENEFIBER) oral powder 1 Packet 1 Packet Feeding Tube DAILY PRN insulin lispro (aka HUMALOG) injection Subcutaneous PRN menthol-zinc oxide (aka CALAZIME) topical paste Topical QID PRN ondansetron (aka ZOFRAN) injection 4 mg 4 mg Intravenous Q12H PRN Stopped (12/08/12 14 45) oxyCODONE (immediate release) (aka ROXICODONE) liquid 5-15 mg 5-15 mg Feeding Tube Q4H PRN polyethylene glycol (aka MIRALAX) powder 17 g 17 g Feeding Tube DAILY PRN simethicone chew (aka MYLICON) tablet 80 mg 80 mg Feeding Tube TID PRN ALLERGIES: No Known Allergies PHYSICAL EXAM: Last Vitals: BP 130/71 | Pulse 88 | Temp 37.1 C (98.8 F) | RR 20 | Ht 1.88 m (6' 2") | Wt 157.3 kg (346 lb 12.5 oz) | SpO2 95% | BMI 44.52 kg/(m^2)FIO2 (%): 40 fraction of O2 (12/12/12 0900) O2 Delivery Device: None (room air) (12/18/12 0725) Intake/Output Summary (Last 24 hours) at 12/18/12 0804 Last data filed at 12/18/12 0700 Gross per 24 hour Intake 1618 ml Output 870 ml Net 748 ml General: Alert, cooperative, no distress. Appears stated age and is pleasant. HEENT: NCAT, anicteric, MMM, oropharynx is clear without lesions. NGT in place. Pulm: Clear to auscultation bilaterally, normal respiratory effort. CV: Regular rhythm, normal rate. S1 and S2 normal, no m/r/g. Abd: Soft, non-tender, non-distended, normoactive bowel sounds. Ext: WWP, trace edema. No cyanosis. Skin: Warm and dry. No rashes or concerning lesions noted. Neuro: Grossly non-focal LABS/STUDIES: Recent Labs Basename 12/18/1244212/17/1252812/16/1251912/12/1239912/11/120 12/10/12 020 5 NA 145 143 147* -- -- -- K 3.9 3.8 3.7 -- -- -- CL 111* 108 111* -- -- -- BICARB -- -- -- BUN 57* 46* 58* -- -- -- CR 3.74* 3.08* 3.56* -- -- -- AST -- -- -- 156* 216* 286* ALT -- -- -- 771* 1100* 1423* TBILI -- -- -- 2.6* 3.4* 4.6* AP -- -- -- 229* 199* 172* TP -- -- -- 6.5 6.2 5.9* Recent Labs Basename 12/18/1244212/17/1252812/16/12 0520 CA 8.8 8.6 8.7 MG 2.3 2.1 2.3 PO4 4.0 3.3 3.5 ALB 2.2* 2.2* 2.1* PTH -- -- -- Recent Labs Basename 12/18/1244212/17/1252812/16/12 0520 12/12/12 0400 12/11/12 0200 12/10/12 020 5 WBC 8.3 8.5 7.8 -- -- -- HB 8.2* 8.6* 9.1* -- -- -- HCT 24.6* 25.4* 26.8* -- -- -- PLT 221 199 203 -- -- -- NEUTROPERC -- -- -- 80* 79* 84* BANDPCT -- -- -- 6 6 3 LYMPHPERC -- -- -- 5* 5* 2* MONOPERC -- -- -- 6 6 7 BASOPERC -- -- -- 0 0 1 EOSPERC -- -- -- 3 1 3 GERWMehdi chamorro MD - 12/17/2012 9:53 AM PDT Nephrology Progress note Interval events:HD yest, no UOP recorded yest Medications: acetaminophen (aka TYLENOL) tablet 650 mg, 650 mg, Feeding Tube, Q6H amiodarone (aka CORDARONE) tablet 200 mg, 200 mg, Feeding Tube, BID aspirin chewable tablet 81 mg, 81 mg, Feeding Tube, DAILY bisacodyl (aka DULCOLAX) suppository 10 mg, 10 mg, Rectal, BID PRN dextrose 50 % injection 12.5 g, 25 mL, Intravenous, PRN docusate sodium liquid 50 mg, 50 mg, Feeding Tube, BID folic acid (aka FOLVITE) tablet 1 mg, 1 mg, Feeding Tube, DAILY glucagon (aka GLUCAGEN) injection 1 mg, 1 mg, Intramuscular, PRN glucose chewable tablet 16 g, 16 g, Oral, Q15MIN PRN guar gum (aka BENEFIBER) oral powder 1 Packet, 1 Packet, Feeding Tube, DAILY PRN haloperidol lactate (aka HALDOL) injection, , , heparin in D5W IV infusion 25,000 units/250 mL, 1,200 Units/hr, Intravenous, CONTINUOUS insulin lispro (aka HUMALOG) injection, , Subcutaneous, TID AC insulin lispro (aka HUMALOG) injection, , Subcutaneous, PRN insulin NPH (aka HUMULIN N) injection 7 Units, 7 Units, Subcutaneous, Q8H menthol-zinc oxide (aka CALAZIME) topical paste, , Topical, QID PRN goqcjsqaytke-xcmo-buaomajy (aka CEROVITE) liquid 15 mL, 15 mL, Feeding Tube, DAILY nystatin (aka MYCOSTATIN) suspension 500,000 Units, 500,000 Units, Oral, QID omeprazole (aka PRILOSEC) oral suspension 40 mg, 40 mg, Feeding Tube, DAILY ondansetron (aka ZOFRAN) injection 4 mg, 4 mg, Intravenous, Q12H PRN oxyCODONE (immediate release) (aka ROXICODONE) liquid 5-15 mg, 5-15 mg, Feeding Tube, Q4H P RN polyethylene glycol (aka MIRALAX) powder 17 g, 17 g, Feeding Tube, DAILY PRN senna (aka SENOKOT) liquid 8.8 mg, 5 mL, Feeding Tube, BID simethicone chew (aka MYLICON) tablet 80 mg, 80 mg, Feeding Tube, TID PRN simvastatin (aka ZOCOR) tablet 20 mg, 20 mg, Oral, QPM thiamine tablet 100 mg, 100 mg, Feeding Tube, DAILY warfarin (aka COUMADIN) tablet 2.5 mg, 2.5 mg, Feeding Tube, QPM PE: Last Vitals: BP 119/64 | Pulse 82 | Temp 36.9 C (98.4 F) | RR 16 | Ht 1.88 m (6' 2") | Wt 146.7 kg (323 lb 6.6 oz) | SpO2 94% | BMI 41.52 kg/(m^2) 24 Hour Vital Min/Max: Systolic (24hrs), Av mmHg, Min:104 mmHg, Max:165 mmHg Diastolic (24hrs), Av mmHg, Min:60 mmHg, Max:93 mmHg Pulse Min: 74 Max: 85 Temp Min: 36 C (96.8 F) Max: 37.4 C (99.3 F) Resp Min: 16 Max: 18 SpO2 Min: 94 % Max: 98 % Intake/Output Summary (Last 24 hours) at 12/17/12 0916 Last data filed at 12/17/12 0610 Gross per 24 hour Intake 1380.9 ml Output 0 ml Net 1380.9 ml Gen: chronically ill WM NAD Heent: anicteric Chest- BCTA Cv- RRR, nl s1s2 Ab- soft, NT Ext-1+ edema B Skin - no excoriations Labs reviewed and include: Lab Results Component Value Date/Time CR 3.08* 12/17/2012 5:29 AM CR 3.56* 12/16/2012 5:20 AM CR 3.16* 12/15/2012 5:25 AM Lab Results Component Value Date/Time K 3.8 12/17/2012 5:29 AM K 4.4 12/04/2012 4:33 PM K 4.3 11/30/2012 10:51 PM A/P Pt is a 67 y/o with KOU[facility]NEY from [facility] -- [facility]- HD next on . No UOP recorded yest but unclear if this is accurate.Hopeful for r ecovery given prior UOP so will make daily decision regarding HD needs. As pt otherwise impr oves may need to set up outpatient HD/tunneled HD line [facility] DEPARTMENT: [id number]- [facility] NEPHROLOGY [facility] Place of Service: [id number] - CSN: [id number] Suggested Modifier: None Sidney Olson MD - 12/17/2012 8:52 AM PDTI personally interviewed the patient, performed the pertinent parts of the physical examination and personally formulated the plan with the resident. I a gree with the resident's documentation and have documented any additions or exceptions. Sidney Altman MD P M Gloria Christie MD - 12/17/2012 8:52 AM PDTFormatting of this note might be different f rom the original. Cardiothoracic Surgery Progress Note Procedure: CABG with delayed tamponade POD # 18 Past 24 hour Events Agitated last night had 2 mh iv halodol . Comfortable and settled this am , obay commands Subjective: reports no complaints Objective: Last Vitals: BP 119/64 | Pulse 82 | Temp 36.9 C (98.4 F) | RR 16 | Ht 1.88 m (6' 2") | Wt 146.7 kg (323 lb 6.6 oz) | SpO2 94% | BMI 41.52 kg/(m^2) 24 Hour Vital Min/Max: Systolic (24hrs), Av mmHg, Min:104 mmHg, Max:165 mmHg Diastolic (24hrs), Av mmHg, Min:60 mmHg, Max:93 mmHg Pulse Av.6 Min: 74 Max: 85 Temp Av.6 C (97.9 F) Min: 36 C (96.8 F) Max: 37.4 C (99.3 F) Resp Av.5 Min: 16 Max: 18 SpO2 Av.3 % Min: 94 % Max: 98 % Intake/Output Summary (Last 24 hours) at 12/17/12 0853 Last data filed at 12/17/12 0610 Gross per 24 hour Intake 1380.9 ml Output 0 ml Net 1380.9 ml Telemetery:NSR Neuro A&Ox3, grossly non focal exam CV RRR, no M/R/G Resp CTAB. No wheezes/rhonchi/rales GI NTND, +BS Incisions Sternal incision cdi Chemistries: Last 72 Hours (or 3 results): Recent Labs Basename 12/17/12 0529 12/16/12 0520 12/15/12 0525 NA 143 147* 144 K 3.8 3.7 3.9 CL 108 111* 108 BICARB 24 24 27 BUN 46* 58* 47* CR 3.08* 3.56* 3.16* CA 8.6 8.7 8.5* MG 2.1 2.3 2.1 PO4 3.3 3.5 3.2 CBC with diff last 72 hours (or 3 results) Recent Labs Basename 12/17/12 0529 12/16/12 0520 12/15/12 0525 WBC 8.5 7.8 10.1 HB 8.6* 9.1* 8.7* HCT 25.4* 26.8* 25.8* PLT 199 203 177 NEUTROPERC -- -- -- BANDPCT -- -- -- LYMPHPERC -- -- -- MONOPERC -- -- -- BASOPERC -- -- -- EOSPERC -- -- -- Assessment and Plan: 67 yo male, s/p CABG with delayed tamponade requiring emergent sternotomy - ECG this am to monitor QT - INR 1.8 continue heparin gtt , warfarin - continue drain until INR > 2 and heparin is off - HD as per Nephrology - Code status - DNR/DNI - Continue care GLORIA ENNIS MD Mehdi Earl MD - 12/16/2012 9:22 AM PDT Nephrology Progress note Interval events: pt transferred to [facility], awake but minimally responsive this AM Medications: acetaminophen (aka TYLENOL) tablet 650 mg, 650 mg, Feeding Tube, Q6H amiodarone (aka CORDARONE) tablet 200 mg, 200 mg, Feeding Tube, BID aspirin chewable tablet 81 mg, 81 mg, Feeding Tube, DAILY bisacodyl (aka DULCOLAX) suppository 10 mg, 10 mg, Rectal, BID PRN dextrose 50 % injection 12.5 g, 25 mL, Intravenous, PRN docusate sodium liquid 50 mg, 50 mg, Feeding Tube, BID folic acid (aka FOLVITE) tablet 1 mg, 1 mg, Feeding Tube, DAILY glucagon (aka GLUCAGEN) injection 1 mg, 1 mg, Intramuscular, PRN glucose chewable tablet 16 g, 16 g, Oral, Q15MIN PRN guar gum (aka BENEFIBER) oral powder 1 Packet, 1 Packet, Feeding Tube, DAILY PRN heparin in D5W IV infusion 25,000 units/250 mL, 1,200 Units/hr, Intravenous, CONTINUOUS insulin lispro (aka HUMALOG) injection, , Subcutaneous, TID AC insulin lispro (aka HUMALOG) injection, , Subcutaneous, PRN insulin NPH (aka HUMULIN N) injection 7 Units, 7 Units, Subcutaneous, Q8H menthol-zinc oxide (aka CALAZIME) topical paste, , Topical, QID PRN lartmrnktutv-mobk-faaeldsn (aka CEROVITE) liquid 15 mL, 15 mL, Feeding Tube, DAILY nystatin (aka MYCOSTATIN) suspension 500,000 Units, 500,000 Units, Oral, QID omeprazole (aka PRILOSEC) oral suspension 40 mg, 40 mg, Feeding Tube, DAILY ondansetron (aka ZOFRAN) injection 4 mg, 4 mg, Intravenous, Q12H PRN oxyCODONE (immediate release) (aka ROXICODONE) liquid 5-15 mg, 5-15 mg, Feeding Tube, Q4H P RN polyethylene glycol (aka MIRALAX) powder 17 g, 17 g, Feeding Tube, DAILY PRN senna (aka SENOKOT) liquid 8.8 mg, 5 mL, Feeding Tube, BID simethicone chew (aka MYLICON) tablet 80 mg, 80 mg, Feeding Tube, TID PRN simvastatin (aka ZOCOR) tablet 20 mg, 20 mg, Oral, QPM thiamine tablet 100 mg, 100 mg, Feeding Tube, DAILY warfarin (aka COUMADIN) tablet 2.5 mg, 2.5 mg, Feeding Tube, QPM PE: Last Vitals: BP 139/71 | Pulse 79 | Temp 37.1 C (98.8 F) | RR 20 | Ht 1.88 m (6' 2") | Wt 146.7 kg (323 lb 6.6 oz) | SpO2 100% | BMI 41.52 kg/(m^2) 24 Hour Vital Min/Max: Systolic (24hrs), Av mmHg, Min:107 mmHg, Max:139 mmHg Diastolic (24hrs), Av mmHg, Min:46 mmHg, Max:77 mmHg Pulse Min: 78 Max: 91 Temp Min: 36.4 C (97.5 F) Max: 37.2 C (99 F) Resp Min: 14 Max: 26 SpO2 Min: 92 % Max: 100 % Intake/Output Summary (Last 24 hours) at 12/16/12 0923 Last data filed at 12/16/12 0700 Gross per 24 hour Intake 2059.52 ml Output 180 ml Net 1879.52 ml Gen: chronically ill WM NAD Heent: anicteric Chest- BCTA anteriorally Cv- RRR, nl s1s2 Ab- soft, NT Ext- 3+ edema Labs reviewed and include: Lab Results Component Value Date/Time CR 3.56* 12/16/2012 5:20 AM CR 3.16* 12/15/2012 5:25 AM CR 4.22* 12/14/2012 2:00 AM Lab Results Component Value Date/Time K 3.7 12/16/2012 5:20 AM K 4.4 12/04/2012 4:33 PM K 4.3 11/30/2012 10:51 PM A/P Pt is a 67 y/o with [facility] from [facility]- HD today, hopeful for recovery given UOP so will make daily decision regarding HD n eeds. As pt improves may need to set up outpatient HD [facility] DEPARTMENT: [id number] Place of Service: [id number] - CSN: [id number] Suggested Modifier: None Johnny Morataya PA- C - 12/16/2012 8:51 AM PDT Cardiothoracic Surgery Progress Note JOHNNY RASCON PA-C Procedure: CABG with delayed tamponade POD # 17 Past 24 hour Events Transfer to tele Subjective: Pt resting comfortably this morning Objective: Last Vitals: BP 139/71 | Pulse 79 | Temp 37.1 C (98.8 F) | RR 20 | Ht 1.88 m (6' 2") | Wt 146.7 kg (323 lb 6.6 oz) | SpO2 100% | BMI 41.52 kg/(m^2) 24 Hour Vital Min/Max: Systolic (24hrs), Av mmHg, Min:102 mmHg, Max:139 mmHg Diastolic (24hrs), Av mmHg, Min:46 mmHg, Max:77 mmHg Pulse Av.1 Min: 78 Max: 91 Temp Av.8 C (98.2 F) Min: 36.4 C (97.5 F) Max: 37.2 C (99 F) Resp Av.4 Min: 14 Max: 26 SpO2 Av.8 % Min: 92 % Max: 100 % Intake/Output Summary (Last 24 hours) at 12/16/12 0851 Last data filed at 12/16/12 0700 Gross per 24 hour Intake 2113.52 ml Output 480 ml Net 1633.52 ml Telemetry: Sinus Neuro Alert, NAD CV RRR, no murmurs Resp CTA B. No wheezes, rhonchi GI NTND, normoactive bowel sounds Incisions Healing well without sign of infection Chemistries: Last 72 Hours (or 3 results): Recent Labs Basename 12/16/12 0520 12/15/12 0525 12/14/12 0200 NA 147* 144 145 K 3.7 3.9 3.6 CL 111* 108 108 BICARB 24 27 25 BUN 58* 47* 71* CR 3.56* 3.16* 4.22* CA 8.7 8.5* 8.1* MG 2.3 2.1 2.3 PO4 3.5 3.2 4.4 CBC with diff last 72 hours (or 3 results) Recent Labs Basename 12/16/12 0520 12/15/12 0525 12/14/12 0200 WBC 7.8 10.1 8.4 HB 9.1* 8.7* 8.1* HCT 26.8* 25.8* 23.9* PLT 203 177 153 NEUTROPERC -- -- -- BANDPCT -- -- -- LYMPHPERC -- -- -- MONOPERC -- -- -- BASOPERC -- -- -- EOSPERC -- -- -- Assessment and Plan: 67 yo male, s/p CABG with delayed tamponade requiring emergent sternotomy Operative issues: CAD - Cont ASA, Zocor LV thrombus - Cont heparin infusion, Coumadin. INR 1.69 today. Increased heparin infusion for goal of .3-.5 Drain - Cont until INR therapeutic, off heparin Other issues: Post-op atrial fibrillation - Cont PO Amio. Has been sinus Renal insufficiency - HD per Nephrology Dysphagia - Cont nightly TF. Advance diet as tolerated per speech Hyperglycemia - Cont current regimen, CBGs at goal Code status - DNR/DNI Continue care Electronically signed by: JOHNNY RASCON PA-C Division of Cardiothoracic Surgery [facility] Mail Code [id number] [place] [address] Veronika Bolaños MD - 12/15/2012 1:06 PM PDT 8[facility] DAILY PROGRESS NOTE (Resident) Team Pager: [phone] Attendin Author: Veronika Palacios MD Date:12/15/2012 Attending Insurance Compliance Analyst: Operating Surgeon: MD Narendra Ellison MD POD #16 3v CABG (11/29/12), POD#11 sternotomy (12/04/12) POD#7 chest closure (12/08/12) HPI: Josef Ramos is a 67 y.o. man with a h/o severe CAD with LV thrombus, developmental delay, morbid obesity, HTN and CKD who is s/p CABG x3 who was transferred to ICU for late ca rdiac tamponade requiring bedside sternotomy to evacuate thrombus. Hospital Course: 10/02/12 - VT arrest s/p amiodarone, defibrillation, conversion to afib - TTE: decreased LV systolic fx with LV thrombus - cardiac cath: severe 3v CAD 11/29/12 - LV thrombus revascularization - transfer to floor 12/04/12 - transfer to ICU due to hemodynamic collapse - continue to decompensate - intubation with CMAC; propofol 120, vijay 160 - US-guided R IJ triple lumen, L radial A line - severe persistent hypotension despite bolus of epi, NE, vasopressin - ABG: metabolic acidosis with AG, lactate 20 - NaHCO3, CaCl -> BP improve - Bedside echo: limited quality, poor LV fx and hypokinesis - Conversion to SVT, shock x1, CPR x1, VT - Bedside sternotomy - CT surgery: evacuation of clot; hemodynamically stable 12/08/12 - Chest closure 12/10/12 - Dialysis catheter place in [facility]; CRRT initiated for acute kidney failure and persi stent uremia 12/12/12 - off of CRRT 24 Hour Events: No acute events o/n Pureed diet per speech therapy Tolerated HD yesterday Assessment and Plan: NEURO Post-operative nociceptive pain Dc hydromorphone Oxycodone prn CV CAD, s/p CABG x 3 Chronic Diastolic Left Ventricular Failure Cardiogenic shock H/o late cardiac tamponade from external thrombus (s/p bedside sternotomy to evacuate throm bus) Post-op a.fib with RVR (12/09) - now in NSR LV thrombus Extracardiac mass Continue amiodarone 200mg PO BID Watch for tamponade No surgical intervention at this time Keep shabnam CVP 15 and SVO2 63.6% yesterday PULMO Pulmonary insufficiency secondary to acute illness IS RENAL/ ELECTROLYTES Acute kidney injury/Acute renal failure 2/2 hypoperfusion Hypernatremia - resolving Azotemia I/o goal even IHD tomorrow GI GI prophylaxis Omeprazole Pureed diet with thick liquids Nephro TFat goal of 80 cc/hr at night HEM/COAG H/o post-operative clot causing tamponade H/o LV thrombus - not present on most recent ECHO Acute postoperative blood loss anemia Acute postoperative thrombocytopenia DVT prophylaxis Check CBC daily Heparin at 900 U/hr (goal 0.3-0.5) ATIII goal > 0.5 coumadin 2.5mg tonight ID Leukocytosis Cultures continue to be negative Continue to follow for signs of systemic infection ENDO Hyperglycemia, stress-induced NPH/lispro Mealtime insulin OTHER Morbid obesity Dispo Code status CODE STATUS : DNR/DNI Transfer to floor Infusions: Insulin Heparin 900 Physical Exam: Neuro: Opens eyes to voice, follows commands ble. Chest: clear and equal bilaterally Incision:CDI. Shabnam to bulb Cardiac: Rhythm: NSR RRR and no M/G/R Abdomen: soft and obese Extremities: 2+ edema Skin: normal Tubes/Lines (insertion date): LIJ dialysis catheter (12/10/12) DHT 12/12 Feeding: Tube feeds Analgesia:oxycodone Sedation: None Thromboprophylaxis: Heparin infusion Head of Bed: Head of Bed >30 degrees Ulcer Prophylaxis:Omeprazole Glycemic control: NPH/lispro Veronika Palacios MD GERHuHeidi vinson MD - 12/15/2012 9:02 AM PDT 8[facility] ATTENDING PROFESSIONAL BONDSMAN PROGRESS NOTE Team Pager: [phone] Attendin I saw and examined the patient at bedside with Dr Palacios and agree with his findings. I form ulated the plan with the team. 67 y.o. y/o male with CAD and LV thrombus, developmental delay, morbid obesity, HTN and CKD who underwent CABG x 3 on 11/29/12 complicated by late tamponade and circulatory collapse on 12/04/12 requiring re-opening of sternotomy with delayed closure on 12/08. Received HD yesterday for his Acute Kidney Injury (acute renal failure) Remains utterly hemodynamically stable and without evidence of distress Restarted anticoagulation for risk of Cerebrovascular Accident from known LV thrombus. We will leave the remaining drain in place and seek miller placement for the patient. 16 minutes spent in the care and management of this patient who is not critically ill Heidi Nieto M.D., M.A. Department of Anesthesiology and Ольга-Operative Medicine [address] [facility] [place] [address] [facility] DEPARTMENT: [facility] ICU CARDIAC [[id number]] Place of Service:- Inpatient Date of Service: 12/15/2012 CSN: [id number] Suggested Modifier: GC - Resident Involved Suggested CPT: TO LOAN REVIEW ANALYST 9: 10 AM Veronika Bolaños MD - 12/14/2012 12:42 PM PDTFormatting of this note might be differ ent from the original. 8[facility] DAILY PROGRESS NOTE (Resident) Team Pager: [phone] Attendin Author: Veronika Palacios MD Date:12/14/2012 Attending Insurance Compliance Analyst: Operating Surgeon: MD Narendra Ellison MD POD #15 3v CABG (11/29/12), POD#10 sternotomy (12/04/12) POD#6 chest closure (12/08/12) HPI: Josef Ramos is a 67 y.o. man with a h/o severe CAD with LV thrombus, developmental delay, morbid obesity, HTN and CKD who is s/p CABG x3 who was transferred to ICU for late ca rdiac tamponade requiring bedside sternotomy to evacuate thrombus. Hospital Course: 10/02/12 - VT arrest s/p amiodarone, defibrillation, conversion to afib - TTE: decreased LV systolic fx with LV thrombus - cardiac cath: severe 3v CAD 11/29/12 - LV thrombus revascularization - transfer to floor 12/04/12 - transfer to ICU due to hemodynamic collapse - continue to decompensate - intubation with CMAC; propofol 120, vijay 160 - US-guided R IJ triple lumen, L radial A line - severe persistent hypotension despite bolus of epi, NE, vasopressin - ABG: metabolic acidosis with AG, lactate 20 - NaHCO3, CaCl -> BP improve - Bedside echo: limited quality, poor LV fx and hypokinesis - Conversion to SVT, shock x1, CPR x1, VT - Bedside sternotomy - CT surgery: evacuation of clot; hemodynamically stable 12/08/12 - Chest closure 12/10/12 - Dialysis catheter place in J; CRRT initiated for acute kidney failure and persi stent uremia 12/12/12 - off of CRRT 24 Hour Events: No acute events o/n. Extracardiac echogenic mass on echo yesterday consistent with either clot or fat with se ptal wall motion abnormalities Heparin held yesterday CVP 15 today with SVO2 63.6% Assessment and Plan: NEURO Post-operative nociceptive pain Hydromorphone prn Oxycodone prn CV CAD, s/p CABG x 3 Chronic Diastolic Left Ventricular Failure Cardiogenic shock H/o late cardiac tamponade from external thrombus (s/p bedside sternotomy to evacuate throm bus) Post-op a.fib with RVR (12/09) - now in NSR LV thrombus Extracardiac mass Continue amiodarone 200mg PO BID Watch for tamponade No surgical intervention at this time Restart coumadin and heparin Keep shabnam. Potentially DC tomorrow CVP 15 and SVO2 63.6% PULMO Pulmonary insufficiency secondary to acute illness IS RENAL/ ELECTROLYTES Acute kidney injury/Acute renal failure 2/2 hypoperfusion Hypernatremia - resolving Azotemia I/o goal even IHD today DC leslie GI GI prophylaxis Omeprazole Pureed diet with thick liquids Nephro TFat goal of 40 cc/hr HEM/COAG H/o post-operative clot causing tamponade H/o LV thrombus - not present on most recent ECHO Acute postoperative blood loss anemia Acute postoperative thrombocytopenia DVT prophylaxis Check CBC daily Heparin at 500 U/hr (goal 0.3-0.5) ATIII goal > 0.5 coumadin 2.5mg tonight ID Leukocytosis - decreased today Cultures continue to be negative Continue to follow for signs of systemic infection ENDO Hyperglycemia, stress-induced NPH/lispro Mealtime insulin OTHER Morbid obesity Dispo Code status CODE STATUS : DNR/DNI Maintain ICU care Infusions: Insulin Heparin 500 Physical Exam: Neuro: Opens eyes to voice, follows commands ble. Chest: clear and equal bilaterally Incision:CDI. Shabnam to bulb Cardiac: Rhythm: NSR RRR and no M/G/R Abdomen: soft and obese Extremities: 2+ edema Skin: normal Tubes/Lines (insertion date): LIJ dialysis catheter (12/10/12) Leslie catheter (12/04/12) DHT 12/12 Feeding: Tube feeds Analgesia:oxycodone Sedation: None Thromboprophylaxis: Heparin infusion Head of Bed: Head of Bed >30 degrees Ulcer Prophylaxis:Omeprazole Glycemic control: NPH/lispro Veronika Palacios MD utch , Heidi Dunbar MD - 12/14/2012 8:13 AM PDT 8[facility] ATTENDING PROFESSIONAL BONDSMAN DAILY PROGRESS NOTE Team Pager: [phone] Attendin Date:12/14/2012 Author: HEIDI NIETO MD Attestation: .I saw and examined the patient at bedside with Dr Palacios and agree with his fin dings. I formulated the plan with the team. NOTE: Events and plan placed at top of note for rapid review. Data used in preparing this assessment appear below the plan section and have been reviewed if they appear. 67 y.o. y/o male with CAD and LV thrombus, developmental delay, morbid obesity, HTN and CKD who underwent CABG x 3 on 11/29/12 complicated by late tamponade and circulatory collapse on 12/04/12 requiring re-opening of sternotomy with delayed closure on 12/08. 24 Hour Events: TTE concerning for tamponade, heparin turned off PLAN: 1. Chronic Left Ventricular Systolic Failure: Hemodynamically stable TTE concerning for tamponade -- confusing picture Check CVP and mixed venous today If consistent with tamponade, surgical planning -- sooner rather than later. If incompatib le with tamponade, resume anticoagulation and continue to progress his care. 2. Acute Kidney Injury (acute renal failure): Hemodialysis today. I/O Goal next 24 Hr: HD I have spent 34 minutes in the care and management of this patient who is currently criti ryan ill. [facility] DEPARTMENT: [facility] ICU CARDIAC [[id number]] Place of Service:- Inpatient Date of Service: 12/14/2012 CSN: [id number] Suggested Modifier: GC - Resident Involved Suggested CPT: TO LOAN REVIEW ANALYST Respiratory: Recent Labs Basename 12/12/12 0819 12/12/12 0400 FIO2 .4 .40 PH 7.48* 7.46* PCO2 36 38 PO2 112* 113* HCO3 26 27 ABGEXCESS 3.2 3.0 Vent Settings Last 8 Hours: No Data Recorded Set Rate Av.6 bpm Min: 15 bpm Max: 28 bpm No Data Recorded No Data Recorded No Data Recorded No Data Recorded No Data Recorded No Data Recorded Renal: Intake/Output Summary (Last 24 hours) at 12/14/12 0813 Last data filed at 12/14/12 0800 Gross per 24 hour Intake 1325.6 ml Output 2185 ml Net -859.4 ml ID: Temp (24hrs), Av.7 C (98.1 F), Min:36.5 C (97.7 F), Max:36.9 C (98.4 F) BLOOD CULTURE [facility] (no units) Date Value 11/30/2012 Final Report:No Bacteria or Yeast isolated at 5 days. 11/30/2012 Sent for Subculture CULTURE RESULT (no units) Date Value 12/08/2012 C Wound Deep Source: Swab Final GRAM STAIN: No squamous epithelial cells Rare polymorphonuclear cells No organisms seen CULTURE RESULT: No growth No anaerobic organisms isolated. 12/08/2012 C AFB Source: Swab SMEAR: AFB not detected 12/08/2012 C Fungus, Other Source: Swab SMEAR: No fungal elements seen 12/08/2012 C Tissue Source: Tissue Final GRAM STAIN: No squamous epithelial cells Rare polymorphonuclear cells No organisms seen CULTURE RESULT: No growth No anaerobic organisms isolated. 12/08/2012 C AFB Source: Tissue SMEAR: AFB not detected 12/08/2012 C Fungus, Other Source: Tissue SMEAR: No fungal elements seen 12/08/2012 C Wound Deep Source: Swab Final GRAM STAIN: No squamous epithelial cells Rare polymorphonuclear cells No organisms seen CULTURE RESULT: No growth No anaerobic organisms isolated. 12/08/2012 C AFB Source: Swab SMEAR: AFB not detected 12/08/2012 C Fungus, Other Source: Swab SMEAR: No fungal elements seen 11/30/2012 C Urine Source: Urine Final CULTURE RESULT: No growth (<1000 col/ml) after 24 hours 11/30/2012 C [facility] Pos Blood Source: Blood Final CULTURE RESULT: No growth at 5 days Recent Labs Basename 12/14/12 0805 12/14/12 0656 12/14/12 0437 12/14/12 0200 12/13/12 1625 12/13/12 033 0 12/12/12 0819 NA -- -- -- 145 141 143 -- K -- -- -- 3.6 3.6 3.8 -- CL -- -- -- 108 106 106 -- BICARB -- -- -- 25 24 26 -- BUN -- -- -- 71* 63* 59* -- CR -- -- -- 4.22* 3.95* 3.53* -- GLU 123* 128* 134* -- -- -- -- MG -- -- -- 2.3 -- 2.1 1.9 PO4 -- -- -- 4.4 4.2 3.4 -- Recent Labs Basename 12/14/12 0200 12/13/12 1625 12/13/12 0946 12/13/12 0330 12/12/122020 WBC 8.4 8.8 -- 10.0 -- HB 8.1* 7.9* -- 7.9* -- HCT 23.9* 23.3* -- 23.4* -- PLT 153 134* -- 128* -- APTT -- -- -- -- -- INRPT 1.44* -- 1.47* 1.57* -- HEPLMW -- -- 0.31 0.27 0.32 Current Inpatient Medications Medication Dose Route Frequency acetaminophen (aka TYLENOL) tablet 650 mg 650 mg Feeding Tube Q6H amiodarone (aka CORDARONE) tablet 200 mg 200 mg Feeding Tube BID aspirin chewable tablet 81 mg 81 mg Feeding Tube DAILY bisacodyl (aka DULCOLAX) suppository 10 mg 10 mg Rectal BID PRN chlorhexidine (aka PERIDEX) mouthwash 15 mL 15 mL Oral BID dextrose 5% IV 75 mL/hr Intravenous CONTINUOUS dextrose 50 % injection 12.5 g 25 mL Intravenous PRN senna (aka SENOKOT) liquid 8.8 mg 5 mL Feeding Tube BID And docusate sodium liquid 50 mg 50 mg Feeding Tube BID folic acid (aka FOLVITE) tablet 1 mg 1 mg Feeding Tube DAILY glucagon (aka GLUCAGEN) injection 1 mg 1 mg Intramuscular PRN glucose chewable tablet 16 g 16 g Oral Q15MIN PRN guar gum (aka BENEFIBER) oral powder 1 Packet 1 Packet Feeding Tube DAILY PRN HYDROmorphone (aka DILAUDID) injection 0.2-1 mg 0.2-1 mg Intravenous Q1H PRN insulin lispro (aka HUMALOG) injection Subcutaneous TID AC insulin regular in NaCl 0.9% IV infusion 250 units/250 mL (1 unit/mL) 0.25-40 Units/hr Intravenous CONTINUOUS menthol-zinc oxide (aka CALAZIME) topical paste Topical QID PRN ziwzvdyyqjna-mpzn-zjcjmwyy (aka CEROVITE) liquid 15 mL 15 mL Feeding Tube DAILY nystatin (aka MYCOSTATIN) suspension 500,000 Units 500,000 Units Oral QID omeprazole (aka PRILOSEC) oral suspension 40 mg 40 mg Feeding Tube DAILY ondansetron (aka ZOFRAN) injection 4 mg 4 mg Intravenous Q12H PRN oxyCODONE (immediate release) (aka ROXICODONE) liquid 5-15 mg 5-15 mg Feeding Tube Q4H PRN polyethylene glycol (aka MIRALAX) powder 17 g 17 g Feeding Tube DAILY PRN simethicone chew (aka MYLICON) tablet 80 mg 80 mg Feeding Tube TID PRN thiamine tablet 100 mg 100 mg Feeding Tube DAILY warfarin (aka COUMADIN) tablet 2.5 mg 2.5 mg Feeding Tube QPM white petrolatum-mineral oil (aka LACRILUBE) 83-15 % ophthalmic ointment Both Eyes Q6 H Obdulio Myers MD - 12/13/2012 1:11 PM PDTFormatting of this note might be different from the db [facility] ATTENDING PROFESSIONAL [employer] PROGRESS NOTE Team Pager: [phone] Attendin TTE performed this AM discussed with Dr. Hale -- evidence of abnormal septal motion cons istent with tamponade. Patient is hemodynamically stable and continues to be polyuric. The finding appears to be new since the . WIll stop heparin for now and reassess. 25 additional minutes spent in the care and management of this patient who is critically i ll Heidi Nieto M.D., M.A. Department of Anesthesiology and Ольга-Operative Medicine [address] [facility] [facility]-[address] [place] [id number] [facility] DEPARTMENT: [facility] ICU CARDIAC [[id number]] Place of Service:- Inpatient Date of Service: 12/13/2012 CSN: [id number] Suggested Modifier: None Suggested CPT: TO LOAN REVIEW ANALYST 3: 12 PM PDTVeronika Palacios MD - 12/13/2012 9:07 AM PDTFormatting of this note might be differ ent from the original. [facility] DAILY PROGRESS NOTE (Resident) Team Pager: [phone] Attendin Author: Veronika Palacios MD Date:12/13/2012 Attending Insurance Compliance Analyst: Operating Surgeon: MD Narendra Ellison MD POD #14 3v CABG (11/29/12), POD#9 sternotomy (12/04/12) POD#5 chest closure (12/08/12) HPI: Josef Ramos is a 67 y.o. man with a h/o severe CAD with LV thrombus, developmental delay, morbid obesity, HTN and CKD who is s/p CABG x3 who was transferred to ICU for late ca rdiac tamponade requiring bedside sternotomy to evacuate thrombus. Hospital Course: 10/02/12 - VT arrest s/p amiodarone, defibrillation, conversion to afib - TTE: decreased LV systolic fx with LV thrombus - cardiac cath: severe 3v CAD 11/29/12 - LV thrombus revascularization - transfer to floor 12/04/12 - transfer to ICU due to hemodynamic collapse - continue to decompensate - intubation with CMAC; propofol 120, vijay 160 - US-guided R IJ triple lumen, L radial A line - severe persistent hypotension despite bolus of epi, NE, vasopressin - ABG: metabolic acidosis with AG, lactate 20 - NaHCO3, CaCl -> BP improve - Bedside echo: limited quality, poor LV fx and hypokinesis - Conversion to SVT, shock x1, CPR x1, VT - Bedside sternotomy - CT surgery: evacuation of clot; hemodynamically stable 12/08/12 - Chest closure 3/17/13 - Dialysis catheter place in [facility]; CRRT initiated for acute kidney failure and persi stent uremia 12/12/12 - off of CRRT 24 Hour Events: Heparin gtt increased to 2100 ST eval ordered Tylenol scheduled TTE ordered Started on warfarin last pm Assessment and Plan: NEURO Post-operative nociceptive pain Mental status improving Hydromorphone prn Oxycodone prn CV CAD, s/p CABG x 3 Chronic Diastolic Left Ventricular Failure Cardiogenic shock H/o late cardiac tamponade from external thrombus (s/p bedside sternotomy to evacuate throm bus) Post-op a.fib with RVR (12/09) - now in NSR LV thrombus Possible VSD Continue amiodarone 200mg PO BID DC lowest shabnam drain output FU TTE today PULMO Pulmonary insufficiency secondary to acute illness IS RENAL/ ELECTROLYTES Acute kidney injury/Acute renal failure 2/2 hypoperfusion Hypernatremia - improving with CRRT Azotemia I/o goal -500 to -1000 IHD vs furosemide. Will discuss with nephrology Maintain leslie catheter GI Ischemic hepatitis - LFTs improving GI prophylaxis Omeprazole FU ST eval Nephro TFat goal of 40 cc/hr HEM/COAG H/o post-operative clot causing tamponade H/o LV thrombus - not present on most recent ECHO Acute postoperative blood loss anemia Acute postoperative thrombocytopenia DVT prophylaxis Check CBC daily Heparin at 2100U/hour (goal 0.3-0.5) ATIII goal > 0.5 coumadin 2.5mg ID Leukocytosis - decreased today Cultures continue to be negative Continue to follow for signs of systemic infection ENDO Hyperglycemia, stress-induced Insulin gtt Mealtime insulin OTHER Morbid obesity Dispo Code status CODE STATUS : FULL Maintain ICU care Infusions: Insulin Heparin 2100 Physical Exam: Neuro: Opens eyes to voice, follows commands ble. Asked to watch cartoons this am Chest: clear and equal bilaterally Incision:CDI. blakes to bulb Cardiac: Rhythm: NSR RRR and no M/G/R Abdomen: soft and obese Extremities: 2+ edema Skin: normal Tubes/Lines (insertion date): [facility] dialysis catheter (12/10/12) Leslie catheter (12/04/12) DHT 12/12 Feeding: Tube feeds Analgesia:oxycodone Sedation: None Thromboprophylaxis: Heparin infusion Head of Bed: Head of Bed >30 degrees Ulcer Prophylaxis:Omeprazole Glycemic control: Insulin infusion Veronika Palacios MD ilda Banerjee - 12/13/2012 9:03 AM PDTTransthoracic echocardiogram completed. Final report to kwesi birmingham. eidi Nieto MD - 7:41 AM PDT [facility] ATTENDING PROFESSIONAL [employer] DAILY PROGRESS NOTE Team Pager: [phone] Attendin Date:12/13/2012 Author: HEIDI NIETO MD Attestation: I saw and examined the patient at bedside with Dr Palacios and agree with his find ings. I formulated the plan with the team. NOTE: Events and plan placed at top of note for rapid review. Data used in preparing this assessment appear below the plan section and have been reviewed if they appear. 67 y.o. y/o male with CAD and LV thrombus, developmental delay, morbid obesity, HTN and CKD who underwent CABG x 3 on 11/29/12 complicated by late tamponade and circulatory collapse on 12/04/12 requiring re-opening of sternotomy with delayed closure on 12/08. 24 Hour Events: extubated, off CRRT PLAN: 1. Acute left ventricular systolic failure: Resolved. Chronic Left Ventricular Systolic Failure: With known LV thrombus 2. Pulmonary insufficiency following shock/surgery/trauma 518.5: Resolved 3. Acute Kidney Injury (acute renal failure): IHD today 4. At risk of sternal wound breakdown Daily exam, follow closely I/O Goal next 24 Hr: IHD Drains: remove one low Pacing wires: none Can any lines be removed? no Leslie? keep I have spent 34 minutes in the care and management of this patient who is currently criti ryan ill. [facility] DEPARTMENT: [facility] ICU CARDIAC [[id number]] Place of Service:- Inpatient Date of Service: 12/13/2012 CSN: [id number] Suggested Modifier: GC - Resident Involved Suggested CPT: TO LOAN REVIEW ANALYST Respiratory: Recent Labs Basename 12/12/12 0819 12/12/12 0400 FIO2 .4 .40 PH 7.48* 7.46* PCO2 36 38 PO2 112* 113* HCO3 26 27 ABGEXCESS 3.2 3.0 Renal: Intake/Output Summary (Last 24 hours) at 12/13/12 0741 Last data filed at 12/13/12 0600 Gross per 24 hour Intake 28296.7 ml Output 87971 ml Net 152.7 ml ID: Temp (24hrs), Av.4 C (99.3 F), Min:36.8 C (98.2 F), Max:37.7 C (99.9 F) BLOOD CULTURE [facility] (no units) Date Value 11/30/2012 Final Report:No Bacteria or Yeast isolated at 5 days. 11/30/2012 Sent for Subculture CULTURE RESULT (no units) Date Value 12/08/2012 C Wound Deep Source: Swab Prelim GRAM STAIN: No squamous epithelial cells Rare polymorphonuclear cells No organisms seen CULTURE RESULT: No growth to date Culture examined daily Report will be updated if growth occurs 12/08/2012 C AFB Source: Swab SMEAR: AFB not detected 12/08/2012 C Fungus, Other Source: Swab SMEAR: No fungal elements seen 12/08/2012 C Tissue Source: Tissue Prelim GRAM STAIN: No squamous epithelial cells Rare polymorphonuclear cells No organisms seen CULTURE RESULT: No growth to date Culture examined daily Report will be updated if growth occurs 12/08/2012 C AFB Source: Tissue SMEAR: AFB not detected 12/08/2012 C Fungus, Other Source: Tissue SMEAR: No fungal elements seen 12/08/2012 C Wound Deep Source: Swab Prelim GRAM STAIN: No squamous epithelial cells Rare polymorphonuclear cells No organisms seen CULTURE RESULT: No growth to date Culture examined daily Report will be updated if growth occurs 12/08/2012 C AFB Source: Swab SMEAR: AFB not detected 12/08/2012 C Fungus, Other Source: Swab SMEAR: No fungal elements seen 11/30/2012 C Urine Source: Urine Final CULTURE RESULT: No growth (<1000 col/ml) after 24 hours 11/30/2012 C [facility] Pos Blood Source: Blood Final CULTURE RESULT: No growth at 5 days Recent Labs Basename 12/13/12 0525 12/13/12 0330 12/13/12 0322 12/12/12 1651 12/12/12 0819 12/12/12 040 0 NA -- 143 -- 139 141 -- K -- 3.8 -- 4.2 4.0 -- CL -- 106 -- 103 106 -- BICARB -- 26 -- 27 27 -- BUN -- 59* -- 45* 45* -- CR -- 3.53* -- 2.75* 2.57* -- GLU 144* 114* 144* -- -- -- MG -- 2.1 -- -- 1.9 2.0 PO4 -- 3.4 -- 3.9 3.1 -- Recent Labs Basename 12/13/12 0330 12/12/12202012/12/12 1650 12/12/12 1319 12/12/12 0400 12/11/12 020 0 WBC 10.0 -- -- -- 13.1* 14.6* HB 7.9* -- -- -- 8.6* 8.8* HCT 23.4* -- -- -- 25.2* 25.5* PLT 128* -- -- -- 132* 234 APTT -- -- -- -- -- -- INRPT 1.57* -- 1.92* -- -- -- HEPLMW 0.27 0.32 -- 0.28 -- -- Current Inpatient Medications Medication Dose Route Frequency acetaminophen (aka TYLENOL) tablet 650 mg 650 mg Feeding Tube Q6H amiodarone (aka CORDARONE) tablet 200 mg 200 mg Oral BID aspirin chewable tablet 81 mg 81 mg Oral DAILY bisacodyl (aka DULCOLAX) suppository 10 mg 10 mg Rectal BID PRN chlorhexidine (aka PERIDEX) mouthwash 15 mL 15 mL Oral BID dextrose 5% IV 75 mL/hr Intravenous CONTINUOUS dextrose 50 % injection 12.5 g 25 mL Intravenous PRN folic acid (aka FOLVITE) tablet 1 mg 1 mg Oral DAILY glucagon (aka GLUCAGEN) injection 1 mg 1 mg Intramuscular PRN glucose chewable tablet 16 g 16 g Oral Q15MIN PRN glutamine (aka GLUTASOLVE) packet 15 g 15 g Oral TID guar gum (aka BENEFIBER) oral powder 1 Packet 1 Packet Oral DAILY PRN heparin in D5W IV infusion 25,000 units/250 mL 2,100 Units/hr Intravenous CONTINUOUS HYDROmorphone (aka DILAUDID) injection 0.2-1 mg 0.2-1 mg Intravenous Q1H PRN insulin lispro (aka HUMALOG) injection Subcutaneous TID AC insulin regular in NaCl 0.9% IV infusion 250 units/250 mL (1 unit/mL) 0.25-40 Units/hr Intravenous CONTINUOUS menthol-zinc oxide (aka CALAZIME) topical paste Topical QID PRN multivitamin 1 Cap 1 Cap Oral DAILY nystatin (aka MYCOSTATIN) suspension 500,000 Units 500,000 Units Oral QID omeprazole (aka PRILOSEC) oral suspension 40 mg 40 mg Feeding Tube DAILY ondansetron (aka ZOFRAN) injection 4 mg 4 mg Intravenous Q12H PRN oxyCODONE (immediate release) (aka ROXICODONE) tablet 5-15 mg 5-15 mg Oral Q4H PRN polyethylene glycol (aka MIRALAX) powder 17 g 17 g Oral DAILY PRN senna-docusate (aka SENOKOT S) 8.6-50 mg 1 Tab 1 Tab Oral BID simethicone chew (aka MYLICON) tablet 80 mg 80 mg Oral TID PRN thiamine tablet 100 mg 100 mg Oral DAILY warfarin (aka COUMADIN) tablet 2.5 mg 2.5 mg Oral QPM white petrolatum-mineral oil (aka LACRILUBE) 83-15 % ophthalmic ointment Both Eyes Q6 H GEREnoFlorencia washington MD - 12/12/2012 11:07 PM PDT [facility] ATTENDING PROFESSIONAL [employer]ONDSMAN NIGHT PROGRESS NOTE Team Pager: [phone] Attendin Events of the day, patient condition, and plan were reviewed with the day team. Please see their note for details. 67 y.o. male with CAD and LV thrombus, developmental delay, morbid obesity, HTN and CKD who underwent CABG x 3 on 11/29/12 complicated by late tamponade and circulatory collapse on 12/04 requiring re-opening of sternotomy with delayed closure on 12/08. Events today: (12/12/2012) Extubated this morning CVVH stopped PLAN: 1. Acute (improving) on chronic LV systolic failure Improving, off inotropes 2. KOURTNEY IHD as needed 3. Postoperative respiratory insufficiency Mobilize, pulmonary toilet LV thrombus, at risk for CVA Continue heparin gtt, start warfarin tonight Altered mental status, improving; developmental delay Sleep hygiene I/O Goal by AM (for the 24 hr period ending at 0700): ad harry 33 minutes spent in the care and management of this patient who is critically ill (Josef Roman [facility] [id number] ) Oriana Ram MD Health Care Facilities Inspector Department of Anesthesiology and Ольга-Operative Medicine Critical Care [facility] DEPARTMENT: [facility] ICU CARDIAC [[id number]] Place of Service:- Inpatient Date of Service: 12/12/2012 CSN: [id number] Suggested Modifier: Suggested CPT: TO LOAN REVIEW ANALYST Data below used in this assessment: Hemodynamics: Hemodynamic Drips: Arterial BP Mean: 76 mmHg (12/04/12 1556) CVP Mean: 38 mmHg (12/10/12 1400) CO (cardiac output): 8.04 (12/10/12 0800) CI (cardiac index): 2.99 (12/10/12 0800) PAP Mean: 16 mmHg (12/10/12 1400) SVR (systemic vascular resistance): 686 (12/10/12 0800) none Active Problems: Coronary artery disease Intake/Output Summary (Last 24 hours) at 12/12/12 2307 Last data filed at 12/12/12 2200 Gross per 24 hour Intake 78132.4 ml Output 47868 ml Net -166.6 ml Recent Labs Basename 12/12/12 2159 12/12/12 2031 12/12/12 1903 12/12/12 1651 12/12/12 0819 12/12/12 040 0 12/11/12 2359 NA -- -- -- 139 141 142 -- K -- -- -- 4.2 4.0 3.8 -- CL -- -- -- 103 106 106 -- BICARB -- -- -- 27 27 26 -- BUN -- -- -- 45* 45* 49* -- CR -- -- -- 2.75* 2.57* 2.60* -- GLU 131* 122* 139* -- -- -- -- MG -- -- -- -- 1.9 2.0 2.0 PO4 -- -- -- 3.9 3.1 3.1 -- Recent Labs Basename 12/12/12 1650 12/12/12 0400 12/11/12 0200 12/10/12 0205 WBC -- 13.1* 14.6* 17.2* HB -- 8.6* 8.8* 8.5* HCT -- 25.2* 25.5* 24.8* PLT -- 132* 234 190 APTT -- -- -- -- INRPT 1.92* -- -- -- Recent Labs Basename 12/12/12 0819 12/12/12 0400 FIO2 .4 .40 PH 7.48* 7.46* PCO2 36 38 PO2 112* 113* HCO3 26 27 Last Ventilator Settings:24 hours (Caution: data from last value documented in flowsheet row, may not be from concurrent time s) FIO2 (%): 40 fraction of O2 (12/12/12 0900) Total Rate: 25 bpm (12/12/12731) Spon VT: 620 ml (12/12/12731) VE: 15 L/MIN (12/12/12731) PSV: 5 cm H2O (12/12/12731) Insp Pres: 20 cm H2O (12/12/12407) PEEP: 5 cm H2O (12/12/12731) RSBI at 5 min: 42.28 (12/12/12606) Proceed to 30 min SBT: Yes, proceed to 30 min SBT (12/12/12606) RSBI at 30 min: 38.4 (12/12/12731) Temp (24hrs), Av.2 C (98.9 F), Min:36.7 C (98.1 F), Max:37.7 C (99.9 F) BLOOD CULTURE [facility] (no units) Date Value 11/30/2012 Final Report:No Bacteria or Yeast isolated at 5 days. 11/30/2012 Sent for Subculture CULTURE RESULT (no units) Date Value 12/08/2012 C Wound Deep Source: Swab Prelim GRAM STAIN: No squamous epithelial cells Rare polymorphonuclear cells No organisms seen CULTURE RESULT: No growth to date Culture examined daily Report will be updated if growth occurs 12/08/2012 C AFB Source: Swab SMEAR: AFB not detected 12/08/2012 C Fungus, Other Source: Swab SMEAR: No fungal elements seen 12/08/2012 C Tissue Source: Tissue Prelim GRAM STAIN: No squamous epithelial cells Rare polymorphonuclear cells No organisms seen CULTURE RESULT: No growth to date Culture examined daily Report will be updated if growth occurs 12/08/2012 C AFB Source: Tissue SMEAR: AFB not detected 12/08/2012 C Fungus, Other Source: Tissue SMEAR: No fungal elements seen 12/08/2012 C Wound Deep Source: Swab Prelim GRAM STAIN: No squamous epithelial cells Rare polymorphonuclear cells No organisms seen CULTURE RESULT: No growth to date Culture examined daily Report will be updated if growth occurs 12/08/2012 C AFB Source: Swab SMEAR: AFB not detected 12/08/2012 C Fungus, Other Source: Swab SMEAR: No fungal elements seen 11/30/2012 C Urine Source: Urine Final CULTURE RESULT: No growth (<1000 col/ml) after 24 hours 11/30/2012 C [facility] Pos Blood Source: Blood Final CULTURE RESULT: No growth at 5 days Current Inpatient Medications Medication Dose Route Frequency amiodarone (aka CORDARONE) tablet 200 mg 200 mg Oral BID aspirin chewable tablet 81 mg 81 mg Oral DAILY bisacodyl (aka DULCOLAX) suppository 10 mg 10 mg Rectal BID PRN calcium chloride IV 1 g 1 g Intravenous PRN chlorhexidine (aka PERIDEX) mouthwash 15 mL 15 mL Oral BID CRRT dialysate fluid for HEPARIN anticoagulation (aka PRISMASATE) (WITH Calcium) Intr avenous CONTINUOUS CRRT replacement fluid (aka PRISMASOL BGK2/0) (POST-FILTER) (WITH Calcium) Intravenou s CONTINUOUS CRRT replacement fluid (aka PRISMASOL BGK2/0) (PRE-FILTER) (WITH Calcium) Intravenous CONTINUOUS dextrose 5% IV 75 mL/hr Intravenous CONTINUOUS dextrose 50 % injection 12.5 g 25 mL Intravenous PRN folic acid (aka FOLVITE) tablet 1 mg 1 mg Oral DAILY glucagon (aka GLUCAGEN) injection 1 mg 1 mg Intramuscular PRN glucose chewable tablet 16 g 16 g Oral Q15MIN PRN glutamine (aka GLUTASOLVE) packet 15 g 15 g Oral TID guar gum (aka BENEFIBER) oral powder 1 Packet 1 Packet Oral DAILY PRN heparin in D5W IV infusion 25,000 units/250 mL 2,000 Units/hr Intravenous CONTINUOUS heparin injection 1,000 Units 1,000 Units Intracatheter PRN HYDROmorphone (aka DILAUDID) injection 0.2-1 mg 0.2-1 mg Intravenous Q1H PRN insulin regular in NaCl 0.9% IV infusion 250 units/250 mL (1 unit/mL) 0.25-40 Units/hr Intravenous CONTINUOUS magnesium sulfate IV 2 g 2 g Intravenous PRN menthol-zinc oxide (aka CALAZIME) topical paste Topical QID PRN multivitamin 1 Cap 1 Cap Oral DAILY nystatin (aka MYCOSTATIN) suspension 500,000 Units 500,000 Units Oral QID omeprazole (aka PRILOSEC) oral suspension 40 mg 40 mg Feeding Tube DAILY ondansetron (aka ZOFRAN) injection 4 mg 4 mg Intravenous Q12H PRN oxyCODONE (immediate release) (aka ROXICODONE) tablet 5-15 mg 5-15 mg Oral Q4H PRN polyethylene glycol (aka MIRALAX) powder 17 g 17 g Oral DAILY PRN potassium chloride IV 20 mEq 20 mEq Intravenous PRN senna-docusate (aka SENOKOT S) 8.6-50 mg 1 Tab 1 Tab Oral BID simethicone chew (aka MYLICON) tablet 80 mg 80 mg Oral TID PRN sodium phosphate 15 mmol in dextrose 5% IV 15 mmol Intravenous PRN thiamine tablet 100 mg 100 mg Oral DAILY warfarin (aka COUMADIN) tablet 2.5 mg 2.5 mg Oral QPM white petrolatum-mineral oil (aka LACRILUBE) 83-15 % ophthalmic ointment Both Eyes Q6 H Veronika Bolaños MD - 12/12/2012 9:08 AM PDT [facility] DAILY PROGRESS NOTE (Resident) Team Pager: [phone] Attendin Author: Veronika Palacios MD Date:12/12/2012 Attending Insurance Compliance Analyst: Operating Surgeon: MD Narendra Ellison MD POD #13 3v CABG (11/29/12), POD#8 sternotomy (12/04/12) POD#4 chest closure (12/08/12) HPI: Josef Ramos is a 67 y.o. man with a h/o severe CAD with LV thrombus, developmental delay, morbid obesity, HTN and CKD who is s/p CABG x3 who was transferred to ICU for late ca rdiac tamponade requiring bedside sternotomy to evacuate thrombus. Hospital Course: 10/02/12 - VT arrest s/p amiodarone, defibrillation, conversion to afib - TTE: decreased LV systolic fx with LV thrombus - cardiac cath: severe 3v CAD 11/29/12 - LV thrombus revascularization - transfer to floor 12/04/12 - transfer to ICU due to hemodynamic collapse - continue to decompensate - intubation with CMAC; propofol 120, vijay 160 - US-guided R IJ triple lumen, L radial A line - severe persistent hypotension despite bolus of epi, NE, vasopressin - ABG: metabolic acidosis with AG, lactate 20 - NaHCO3, CaCl -> BP improve - Bedside echo: limited quality, poor LV fx and hypokinesis - Conversion to SVT, shock x1, CPR x1, VT - Bedside sternotomy - CT surgery: evacuation of clot; hemodynamically stable 12/08/12 - Chest closure 12/10/12 - Dialysis catheter place in [facility]; CRRT initiated for acute kidney failure and persi stent uremia 24 Hour Events: Followed commands Passed SBT 12/11 echo: ef 35-40%. RV poorly visualized. Possible VSD? Assessment and Plan: NEURO Post-operative nociceptive pain Mental status improving Hydromorphone prn Oxycodone prn CV CAD, s/p CABG x 3 Chronic Diastolic Left Ventricular Failure Cardiogenic shock H/o late cardiac tamponade from external thrombus (s/p bedside sternotomy to evacuate throm bus) Post-op a.fib with RVR (12/09) - now in NSR LV thrombus Possible VSD DC epi Continue amiodarone 200mg PO BID Blakes to bulb suction this afternoon PULMO Pulmonary insufficiency secondary to acute illness Extubate RENAL/ ELECTROLYTES Acute kidney injury/Acute renal failure 2/2 hypoperfusion Hypernatremia - improving with CRRT Azotemia Continue CRRT, appreciate nephrology assistance Stop CRRT once bag is done and transition to iHD tomorrow I/O goal even Maintain leslie catheter Labs per CRRT protocol GI Ischemic hepatitis - LFTs improving GI prophylaxis Omeprazole Stop with daily LFTs Nephro TFat goal of 40 cc/hr HEM/COAG H/o post-operative clot causing tamponade H/o LV thrombus - not present on most recent ECHO Acute postoperative blood loss anemia Acute postoperative thrombocytopenia DVT prophylaxis Check CBC daily Heparin at 1900U/hour (goal 0.3-0.5) ATIII goal > 0.5 Start coumadin tonight at 2.5mg ID Leukocytosis - decreased today Cultures continue to be negative Continue to follow for signs of systemic infection ENDO Hyperglycemia, stress-induced Insulin gtt OTHER Morbid obesity Dispo Code status CODE STATUS : FULL Maintain ICU care Infusions: Epinephrine .01 Insulin Heparin 1900 Physical Exam: Neuro: Opens eyes to voice, follows commands ble. Asked to watch cartoons this am Chest: clear and equal bilaterally Incision:CDI. blakes to pleurovac Cardiac: Rhythm: NSR RRR and no M/G/R Abdomen: soft and obese Extremities: 2+ edema Skin: normal Tubes/Lines (insertion date): [facility] dialysis catheter (12/10/12) Leslie catheter (12/04/12) ETT (12/04/12) OG tube (12/04/12) R radial a-line (12/08/12) Feeding: Tube feeds Analgesia:Hydromorphone prn Sedation: None Thromboprophylaxis: Heparin infusion Head of Bed: Head of Bed >30 degrees Ulcer Prophylaxis:Omeprazole Glycemic control: Insulin infusion Veronika Palacios MD Heidi Marlow MD - 12/12/2012 8:05 AM PDT [facility] ATTENDING PROFESSIONAL [employer] DAILY PROGRESS NOTE Team Pager: [phone] Attendin Date:12/12/2012 Author: HEIDI NIETO MD Attestation: I saw and examined the patient at bedside with Dr Palacios and agree with his find ings. I formulated the plan with the team. NOTE: Events and plan placed at top of note for rapid review. Data used in preparing this assessment appear below the plan section and have been reviewed if they appear. 67 y.o. y/o male with CAD and LV thrombus, developmental delay, morbid obesity, HTN and CKD who underwent CABG x 3 on 11/29/12 complicated by late tamponade and circulatory collapse on 12/04/12 requiring re-opening of sternotomy with delayed closure on 12/08. 24 Hour Events: Passing SBTs PLAN: 1. Acute left ventricular systolic failure: On chronic, in the setting of resolved tampo nade. Wean epi to off. 2. Pulmonary insufficiency following shock/surgery/trauma 518.5: Wean to extubate. 3. Acute Kidney Injury (acute renal failure): On CRRT, good UOP. With adequate respiratory function postextubation consider stopping CRRT today -- stop for sure if filter clots. 4. At risk of Cerebrovascular Accident: LV thrombus. Start warfarin tonight. I/O Goal next 24 Hr: CRRT I have spent 34 minutes in the care and management of this patient who is currently criti ryan ill. [facility] DEPARTMENT: [facility] ICU CARDIAC [[id number]] Place of Service:- Inpatient Date of Service: 12/12/2012 CSN: [id number] Suggested Modifier: GC - Resident Involved Suggested CPT: TO LOAN REVIEW ANALYST Hemodynamics: Hemodynamic Drips: Arterial BP Mean: 76 mmHg (12/04/12 1556) CVP Mean: 38 mmHg (12/10/12 1400) CO (cardiac output): 8.04 (12/10/12 0800) CI (cardiac index): 2.99 (12/10/12 0800) PAP Mean: 16 mmHg (12/10/12 1400) SVR (systemic vascular resistance): 686 (12/10/12 0800) epi 0.01 Respiratory: Recent Labs Basename 12/12/12 0400 12/11/12 2359 FIO2 .40 .40 PH 7.46* 7.48* PCO2 38 37 PO2 113* 118* HCO3 27 27 ABGEXCESS 3.0 4.0 Vent Settings Last 8 Hours: FIO2 (%) Av.6 fraction of O2 Min: 0.4 fraction of O2 Max: 40 fraction of O2 Set Rate Av.6 bpm Min: 15 bpm Max: 28 bpm Total Rate Av.5 bpm Min: 25 bpm Max: 26 bpm No Data Recorded VE Av.3 L/MIN Min: 15 L/MIN Max: 15.5 L/MIN No Data Recorded PSV Av.5 cm H2O Min: 5 cm H2O Max: 12 cm H2O PEEP Av cm H2O Min: 5 cm H2O Max: 5 cm H2O Renal: Intake/Output Summary (Last 24 hours) at 12/12/12 0805 Last data filed at 12/12/12 0700 Gross per 24 hour Intake 10268.16 ml Output 38236 ml Net -382.84 ml ID: Temp (24hrs), Av.7 C (98.1 F), Min:36.6 C (97.9 F), Max:36.7 C (98.1 F) BLOOD CULTURE [facility] (no units) Date Value 11/30/2012 Final Report:No Bacteria or Yeast isolated at 5 days. 11/30/2012 Sent for Subculture CULTURE RESULT (no units) Date Value 12/08/2012 C Wound Deep Source: Swab Prelim GRAM STAIN: No squamous epithelial cells Rare polymorphonuclear cells No organisms seen CULTURE RESULT: No growth to date Culture examined daily Report will be updated if growth occurs 12/08/2012 C AFB Source: Swab SMEAR: AFB not detected 12/08/2012 C Fungus, Other Source: Swab SMEAR: No fungal elements seen 12/08/2012 C Tissue Source: Tissue Prelim GRAM STAIN: No squamous epithelial cells Rare polymorphonuclear cells No organisms seen CULTURE RESULT: No growth to date Culture examined daily Report will be updated if growth occurs 12/08/2012 C AFB Source: Tissue SMEAR: AFB not detected 12/08/2012 C Fungus, Other Source: Tissue SMEAR: No fungal elements seen 12/08/2012 C Wound Deep Source: Swab Prelim GRAM STAIN: No squamous epithelial cells Rare polymorphonuclear cells No organisms seen CULTURE RESULT: No growth to date Culture examined daily Report will be updated if growth occurs 12/08/2012 C AFB Source: Swab SMEAR: AFB not detected 12/08/2012 C Fungus, Other Source: Swab SMEAR: No fungal elements seen 11/30/2012 C Urine Source: Urine Final CULTURE RESULT: No growth (<1000 col/ml) after 24 hours 11/30/2012 C [facility] Pos Blood Source: Blood Final CULTURE RESULT: No growth at 5 days Recent Labs Basename 12/12/12 0659 12/12/12 0609 12/12/12 04012/11/12 2359 12/11/121999 NA -- -- 142 142 143 K -- -- 3.8 4.5 4.4 CL -- -- 106 106 106 BICARB -- -- 26 27 27 BUN -- -- 49* 53* 59* CR -- -- 2.60* 2.87* 3.05* GLU 113* 117* 116* -- -- MG -- -- 2.0 2.0 2.1 PO4 -- -- 3.1 3.6 3.7 Recent Labs Basename 12/12/12 0400 12/11/12 2200 12/11/12 1646 12/11/12 0200 12/10/12 0205 WBC 13.1* -- -- 14.6* 17.2* HB 8.6* -- -- 8.8* 8.5* HCT 25.2* -- -- 25.5* 24.8* PLT 132* -- -- 234 190 APTT -- -- -- -- -- INRPT -- -- -- -- -- HEPLMW 0.33 0.32 0.38 -- -- Current Inpatient Medications Medication Dose Route Frequency amiodarone (aka CORDARONE) tablet 200 mg 200 mg Feeding Tube BID aspirin chewable tablet 81 mg 81 mg Feeding Tube DAILY bisacodyl (aka DULCOLAX) suppository 10 mg 10 mg Rectal BID PRN calcium chloride IV 1 g 1 g Intravenous PRN chlorhexidine (aka PERIDEX) mouthwash 15 mL 15 mL Oral Q6H CRRT dialysate fluid for HEPARIN anticoagulation (aka PRISMASATE) (WITH Calcium) Intr avenous CONTINUOUS CRRT replacement fluid (aka PRISMASOL BGK2/0) (POST-FILTER) (WITH Calcium) Intravenou s CONTINUOUS CRRT replacement fluid (aka PRISMASOL BGK2/0) (PRE-FILTER) (WITH Calcium) Intravenous CONTINUOUS dextrose 5% IV 75 mL/hr Intravenous CONTINUOUS dextrose 50 % injection 12.5 g 25 mL Intravenous PRN senna (aka SENOKOT) liquid 8.8 mg 5 mL Feeding Tube BID And docusate sodium liquid 50 mg 50 mg Feeding Tube BID EPINEPHrine in NS IV infusion 5 mg/250 mL (0.02 mg/mL) 0.01 mcg/kg/min (Order-Specific ) Intravenous CONTINUOUS folic acid (aka FOLVITE) tablet 1 mg 1 mg Feeding Tube DAILY glucagon (aka GLUCAGEN) injection 1 mg 1 mg Intramuscular PRN glucose chewable tablet 16 g 16 g Oral Q15MIN PRN glutamine (aka GLUTASOLVE) packet 15 g 15 g Feeding Tube TID guar gum (aka BENEFIBER) oral powder 1 Packet 1 Packet Feeding Tube DAILY PRN heparin in D5W IV infusion 25,000 units/250 mL 1,900 Units/hr Intravenous CONTINUOUS heparin injection 1,000 Units 1,000 Units Intracatheter PRN HYDROmorphone (aka DILAUDID) injection 0.2-1 mg 0.2-1 mg Intravenous Q1H PRN insulin regular in NaCl 0.9% IV infusion 250 units/250 mL (1 unit/mL) 0.25-40 Units/hr Intravenous CONTINUOUS magnesium sulfate IV 2 g 2 g Intravenous PRN menthol-zinc oxide (aka CALAZIME) topical paste Topical QID PRN rwcmozdlbver-ikod-hlvcobhf (aka CEROVITE) liquid 15 mL 15 mL Feeding Tube DAILY nystatin (aka MYCOSTATIN) suspension 500,000 Units 500,000 Units Oral QID omeprazole (aka PRILOSEC) oral suspension 40 mg 40 mg Feeding Tube DAILY ondansetron (aka ZOFRAN) injection 4 mg 4 mg Intravenous Q12H PRN polyethylene glycol (aka MIRALAX) powder 17 g 17 g Feeding Tube DAILY PRN potassium chloride IV 20 mEq 20 mEq Intravenous PRN simethicone chew (aka MYLICON) tablet 80 mg 80 mg Feeding Tube TID PRN sodium phosphate 15 mmol in dextrose 5% IV 15 mmol Intravenous PRN thiamine tablet 100 mg 100 mg Feeding Tube DAILY white petrolatum-mineral oil (aka LACRILUBE) 83-15 % ophthalmic ointment Both Eyes Q6 H Florencia Bender MD - 12/11/2012 11:21 PM PDT [facility] ATTENDING PROFESSIONAL [employer] NIGHT PROGRESS NOTE Team Pager: [phone] Attendin Events of the day, patient condition, and plan were reviewed with the day team. Please see their note for details. 67 y.o. male with CAD and LV thrombus, developmental delay, morbid obesity, HTN and CKD wh o underwent CABG x 3 on 11/29/12 complicated by late tamponade and circulatory collapse on 11/24 10/08 requiring re-opening of sternotomy with delayed closure on 12/08. Events today: (12/11/2012) CVVH started last night Mental status gradually improving over day, still not adequate for extubation TTE to evaluate LV thrombus, not commented on in report, concerning for possible post infar ct VSD PLAN: 1. Acute systolic LV dysfunction, CAD Gradual wean of epi, continue 0.01 tonight 2. H/o LV thrombus Follow up echo read in am Continue heparin gtt 3. Vent dependent respiratory failure Altered mental status precludes extubation at this ti me KOURTNEY, continues with good urine output Continue CRRT for clearance Evaluate for IHD if filter clots Concern for post-infarct VSD Repeat echo tomorrow A-fib w RVR, now in NSR Continue amiodarone I/O Goal by AM (for the 24 hr period ending at 0700): even to negative 500 36 minutes spent in the care and management of this patient who is critically ill (Josef Roman [facility] [id number] ) Oriana Ram MD Health Care Facilities Inspector Department of Anesthesiology and Ольга-Operative Medicine Critical Care [facility] DEPARTMENT: [facility] ICU CARDIAC [[id number]] Place of Service:- Inpatient Date of Service: 12/11/2012 CSN: [id number] Suggested Modifier: Suggested CPT: TO LOAN REVIEW ANALYST Data below used in this assessment: Hemodynamics: Hemodynamic Drips: Arterial BP Mean: 76 mmHg (12/04/12 1556) CVP Mean: 38 mmHg (12/10/12 1400) CO (cardiac output): 8.04 (12/10/12 0800) CI (cardiac index): 2.99 (12/10/12 0800) PAP Mean: 16 mmHg (12/10/12 1400) SVR (systemic vascular resistance): 686 (12/10/12 0800) Epi 0.01 Active Problems: Coronary artery disease Intake/Output Summary (Last 24 hours) at 12/11/12 2322 Last data filed at 12/11/12 2200 Gross per 24 hour Intake 06622.36 ml Output 51788 ml Net -761.64 ml Recent Labs Basename 12/11/12 2303 12/11/12219912/11/12205812/11/12199912/11/12 1646 12/11/12 121 1 NA -- -- -- 143 143 145 K -- -- -- 4.4 4.1 3.9 CL -- -- -- 106 106 107 BICARB -- -- -- 27 27 27 BUN -- -- -- 59* 65* 69* CR -- -- -- 3.05* 3.44* 3.96* GLU 126* 118* 116* -- -- -- MG -- -- -- 2.1 2.3 2.2 PO4 -- -- -- 3.7 4.4 4.3 Recent Labs Basename 12/11/12 0200 12/10/12 0205 12/09/12 0154 WBC 14.6* 17.2* 14.3* HB 8.8* 8.5* 8.3* HCT 25.5* 24.8* 24.3* PLT 234 190 175 APTT -- -- -- INRPT -- -- -- Recent Labs Basename 12/11/12199912/11/12 1647 FIO2 .4 ng PH 7.47* 7.45* PCO2 39 40 PO2 132* 120* HCO3 28 27 Last Ventilator Settings:24 hours (Caution: data from last value documented in flowsheet row, may not be from concurrent time s) Set Rate: 18 bpm (12/11/12758) FIO2 (%): 40 fraction of O2 (12/11/122299) Total Rate: 28 bpm (12/11/122126) VT SET: 600 ml (12/11/12758) Exh VT: 540 ml (12/11/121899) Spon VT: 580 ml (12/11/122126) VE: 15.8 L/MIN (12/11/122126) PSV: 12 cm H2O (12/11/122126) Insp Pres: 19 cm H2O (12/11/122126) PEEP: 5 cm H2O (12/11/122126) Plat Press: 24 cm H2O (12/11/12758) PK Flow: 80 L/min (12/11/12 0759) RSBI at 5 min: 43.01 (12/11/12 0599) Proceed to 30 min SBT: Yes, proceed to 30 min SBT (12/11/12 9365) RSBI at 30 min: 40.27 (12/11/12 1432) Temp (24hrs), Av.7 C (98.1 F), Min:36.6 C (97.9 F), Max:36.8 C (98.2 F) BLOOD CULTURE [facility] (no units) Date Value 11/30/2012 Final Report:No Bacteria or Yeast isolated at 5 days. 11/30/2012 Sent for Subculture CULTURE RESULT (no units) Date Value 12/08/2012 C Wound Deep Source: Swab Prelim GRAM STAIN: No squamous epithelial cells Rare polymorphonuclear cells No organisms seen CULTURE RESULT: No growth to date Culture examined daily Report will be updated if growth occurs 12/08/2012 C AFB Source: Swab SMEAR: AFB not detected 12/08/2012 C Fungus, Other Source: Swab SMEAR: No fungal elements seen 12/08/2012 C Tissue Source: Tissue Prelim GRAM STAIN: No squamous epithelial cells Rare polymorphonuclear cells No organisms seen CULTURE RESULT: No growth to date Culture examined daily Report will be updated if growth occurs 12/08/2012 C AFB Source: Tissue SMEAR: AFB not detected 12/08/2012 C Fungus, Other Source: Tissue SMEAR: No fungal elements seen 12/08/2012 C Wound Deep Source: Swab Prelim GRAM STAIN: No squamous epithelial cells Rare polymorphonuclear cells No organisms seen CULTURE RESULT: No growth to date Culture examined daily Report will be updated if growth occurs 12/08/2012 C AFB Source: Swab SMEAR: AFB not detected 12/08/2012 C Fungus, Other Source: Swab SMEAR: No fungal elements seen 11/30/2012 C Urine Source: Urine Final CULTURE RESULT: No growth (<1000 col/ml) after 24 hours 11/30/2012 C [facility] Pos Blood Source: Blood Final CULTURE RESULT: No growth at 5 days Current Inpatient Medications Medication Dose Route Frequency amiodarone (aka CORDARONE) tablet 200 mg 200 mg Feeding Tube BID aspirin chewable tablet 81 mg 81 mg Feeding Tube DAILY bisacodyl (aka DULCOLAX) suppository 10 mg 10 mg Rectal BID PRN calcium chloride IV 1 g 1 g Intravenous PRN chlorhexidine (aka PERIDEX) mouthwash 15 mL 15 mL Oral Q6H CRRT dialysate fluid for HEPARIN anticoagulation (aka PRISMASATE) (WITH Calcium) Intr avenous CONTINUOUS CRRT replacement fluid (aka PRISMASOL BGK2/0) (POST-FILTER) (WITH Calcium) Intravenou s CONTINUOUS CRRT replacement fluid (aka PRISMASOL BGK2/0) (PRE-FILTER) (WITH Calcium) Intravenous CONTINUOUS dextrose 5% IV 75 mL/hr Intravenous CONTINUOUS dextrose 50 % injection 12.5 g 25 mL Intravenous PRN senna (aka SENOKOT) liquid 8.8 mg 5 mL Feeding Tube BID And docusate sodium liquid 50 mg 50 mg Feeding Tube BID EPINEPHrine in NS IV infusion 5 mg/250 mL (0.02 mg/mL) 0.01 mcg/kg/min (Order-Specific ) Intravenous CONTINUOUS folic acid (aka FOLVITE) tablet 1 mg 1 mg Feeding Tube DAILY glucagon (aka GLUCAGEN) injection 1 mg 1 mg Intramuscular PRN glucose chewable tablet 16 g 16 g Oral Q15MIN PRN glutamine (aka GLUTASOLVE) packet 15 g 15 g Feeding Tube TID guar gum (aka BENEFIBER) oral powder 1 Packet 1 Packet Feeding Tube DAILY PRN heparin in D5W IV infusion 25,000 units/250 mL 1,900 Units/hr Intravenous CONTINUOUS heparin injection 1,000 Units 1,000 Units Intracatheter PRN HYDROmorphone (aka DILAUDID) injection 0.2-1 mg 0.2-1 mg Intravenous Q1H PRN insulin regular in NaCl 0.9% IV infusion 250 units/250 mL (1 unit/mL) 0.25-40 Units/hr Intravenous CONTINUOUS magnesium sulfate IV 2 g 2 g Intravenous PRN menthol-zinc oxide (aka CALAZIME) topical paste Topical QID PRN jbpeexfpuzur-ujcb-knkhcmgz (aka CEROVITE) liquid 15 mL 15 mL Feeding Tube DAILY nystatin (aka MYCOSTATIN) suspension 500,000 Units 500,000 Units Oral QID omeprazole (aka PRILOSEC) oral suspension 40 mg 40 mg Feeding Tube DAILY ondansetron (aka ZOFRAN) injection 4 mg 4 mg Intravenous Q12H PRN polyethylene glycol (aka MIRALAX) powder 17 g 17 g Feeding Tube DAILY PRN potassium chloride IV 20 mEq 20 mEq Intravenous PRN simethicone chew (aka MYLICON) tablet 80 mg 80 mg Feeding Tube TID PRN sodium phosphate 15 mmol in dextrose 5% IV 15 mmol Intravenous PRN thiamine tablet 100 mg 100 mg Feeding Tube DAILY white petrolatum-mineral oil (aka LACRILUBE) 83-15 % ophthalmic ointment Both Eyes Q6 H oSpencer araiza - 12/11/2012 11:47 AM PDTTransthoracic echocardiogram completed. Final report to follow. Marcy Salas DO - 12/11 9:15 AM PDT [facility] ATTENDING PROFESSIONAL [employer] DAILY PROGRESS NOTE Team Pager: [phone] Attending Pager: [phone] Author: MARCY SIFUENTES DO ATTESTATION: I saw and evaluated the patient at the bedside together with Dr. Alvarado. Laine loja see resident note for detailed rounding summary. I reviewed the documented findings, all data and the recent imaging available. I agree with the assessment and plan as described in the resident's note with the following exceptions/additions as noted below. HPI: 67 y/o M with h/o CAD s/p NSTEMI with LV thrombus s/p CABG x 3 on 11/29/12 complicated by lat e tamponade requiring bedside mediastinal exploration and evacuation of thrombus on 12/04/12 . Chest was left open and subsequently closed on 12/08/12. PMHx Developmental delay, morbid obesity, HTN, CKD 24 Hour Events: Started on CRRT, off lasix gtt. Mental status improving Remains intubated Lasix gtt off ASSESSMENT & PLAN: Decrease epi to 0.01 mcg/kg/min, if tolerated, d/c over next 12-24 hours Continue amiodarone SBT this am for possible extubation Continue CRRT for clearance. I/O goal of even Repeat TTE to evaluate for LV thrombus and cardiac function Continue heparin gtt. Heparin level goal of 0.3-0.5 Pt remains critically ill in the ICU. Dx: NEURO Acute postoperative nociceptive pain Developmental delay AMS CV Postoperative cardiogenic shock CAD, s/p CABG x 3 c/b late tamponade/cardiogenic shock requiring mediastinal exploration now s/p chest closure LV thrombus A.fib with RVR (postop) PULMO Acute respiratory failure RENAL Nonoliguric renal failure likely 2/2 ATN now on CRRT CKD Electrolytes Hypernatremia,improving Hyperphosphotemia GI Unable to eat due to critical illness and intubation HEM/coagulation Acute postoperative blood loss anemia Acute postoperative thrombocytopenia, resolved ID Leukocytosis, reactive ENDO Hyperglycemia, stress-induced OTHER Morbid obesity, Body mass index is 44.92 kg/(m^2). This patient is currently at risk for the following: electrolyte imbalance and intracerebr al hemorrhage; arrhythmia and myocardial infarction; central line associated blood stream in fection, DVT/Pulmonary embolism, dysphagia, GI bleed/gut ischemia, pneumonia - ventilator ac quired, skin deconditioning including pressure ulcer, sepsis, severe sepsis, septic shock an d UTI. I have spent 42 minutes in the care and management of this patient who is critically ill. Marcy Sifuentes DO Health Care Facilities Inspector Department of Anesthesiology and Perioperative Medicine [facility] DEPARTMENT: [facility] ICU CARDIAC [[id number]] Place of Service:[id number]- Inpatient Date of Service: 12/11/2012 CSN: [id number] Suggested Modifier: GC - Resident Involved Suggested CPT: TO LOAN REVIEW ANALYST Precious Ramires MD - 5:58 AM PDT 8[facility] DAILY PROGRESS NOTE (Resident) Team Pager: [phone] Attendin Author: PRECIOUS ALVARADO MD Date:12/11/2012 Attending Insurance Compliance Analyst: Operating Surgeon: MD Narendra Figueroa MD POD #12 3v CABG (11/29/12), POD#7 sternotomy (12/04/12) POD#3 chest closure (12/08/12) HPI: Josef Ramos is a 67 y.o. man with a h/o severe CAD with LV thrombus, developmental delay, morbid obesity, HTN and CKD who is s/p CABG x3 who was transferred to ICU for late ca rdiac tamponade requiring bedside sternotomy to evacuate thrombus. Hospital Course: 10/02/12 - VT arrest s/p amiodarone, defibrillation, conversion to afib - TTE: decreased LV systolic fx with LV thrombus - cardiac cath: severe 3v CAD 11/29/12 - LV thrombus revascularization - transfer to floor 12/04/12 - transfer to ICU due to hemodynamic collapse - continue to decompensate - intubation with CMAC; propofol 120, vijay 160 - US-guided R IJ triple lumen, L radial A line - severe persistent hypotension despite bolus of epi, NE, vasopressin - ABG: metabolic acidosis with AG, lactate 20 - NaHCO3, CaCl -> BP improve - Bedside echo: limited quality, poor LV fx and hypokinesis - Conversion to SVT, shock x1, CPR x1, VT - Bedside sternotomy - CT surgery: evacuation of clot; hemodynamically stable 12/08/12 - Chest closure 12/10/12 - Dialysis catheter place in [facility]; CRRT initiated for acute kidney failure and persi stent uremia 24 Hour Events: CRRT D/c'd furosemide gtt Assessment and Plan: NEURO Post-operative nociceptive pain Mental status improving Toxic metabolic encephalopathy - uremia Hydromorphone prn Possible head CT if mental status does not improve over next few days with CRRT CV CAD, s/p CABG x 3 Chronic Diastolic Left Ventricular Failure Cardiogenic shock H/o late cardiac tamponade from external thrombus (s/p bedside sternotomy to evacuate throm bus) Post-op a.fib with RVR (12/09) - now in NSR Decrease epi to 0.01 plan to turn off this after noon if clinically stable ECHO to evaluate function and for LV thrombus Continue amiodarone 200mg PO BID Maintain blakes to suction until discussed with CT surgery PULMO Pulmonary insufficiency secondary to acute illness Volume control SBT today, if does well, possible extubation RENAL/ ELECTROLYTES Acute kidney injury/Acute renal failure 2/2 hypoperfusion Hypernatremia - improving with CRRT Azotemia Continue CRRT, appreciate nephrology assistance I/O goal -1L Maintain leslie catheter Labs per CRRT protocol GI Ischemic hepatitis - LFTs improving GI prophylaxis Omeprazole Nephro TFat goal of 40 cc/hr HEM/COAG Post-op atrial fibrillation H/o post-operative clot causing tamponade H/o LV thrombus - not present on most recent ECHO Acute postoperative blood loss anemia Acute postoperative thrombocytopenia DVT prophylaxis Check CBC daily Heparin at 1800U/hour (goal 0.3-0.5) ATIII goal > 0.5 ID Leukocytosis - increased today Cultures continue to be negative Continue to follow for signs of systemic infection ENDO Hyperglycemia, stress-induced Insulin gtt OTHER Morbid obesity Dispo Code status CODE STATUS : FULL Maintain ICU care Infusions: Epinephrine Insulin Heparin Physical Exam: Neuro: Opens eyes to voice, follows commands Chest: clear and equal bilaterally Incision:CDI Cardiac: Rhythm: NSR RRR and no M/G/R Abdomen: soft and obese Extremities: 2+ edema Skin: normal Tubes/Lines (insertion date): [facility] dialysis catheter (12/10/12) L IJ PA catheter (12/08/12 - 12/10/12) Leslie catheter (12/04/12) ETT (12/04/12) OG tube (12/04/12) R radial a-line (12/08/12) Feeding: Tube feeds Analgesia:Hydromorphone prn Sedation: None Thromboprophylaxis: Heparin infusion Head of Bed: Head of Bed >30 degrees Ulcer Prophylaxis:Omeprazole Glycemic control: Insulin infusion PRECIOUS ALVARADO MD Johnny Mcmahon PA- C - 12/11/2012 4:02 AM PDTUpdate: - R IJ with noted clot on 12/10. R IJ PA catheter d/c'ed - New L IJ dialysis catheter placed 12/10 afternoon. CRRT initiated in setting of uremia w ith I/O goal: -1 L. Pt currently with about 200 ml/hr U/O. Current I/O status: -2543 ml - Epinephrine decreased to 0.02 mcg/kg/min from 0.03 mcg/kg/min 12/10 a.m. - Left UE PICC placed - Pt opening eyes to voice overnight. Not following commands. Nursing notes minimal spon taneous movement bilateral UE. - Amiodarone gtt d/c'ed. Amiodarone 200 mg PO bid started - Heparin level overnight < 0.10. Increased heparin gtt to 1600 units/hr from 1400 units/ hr. Heparin level goal: 0.3 - 0.5 - K+ 4.0, Mg+ 2.4 this a.m. - Transaminases improving. AST: 286 -> 216. ALT: 1423 -> 1100 - Ammonia level 43 yesterday late morning Plan: - Continue CRRT with goal of running even per hour in setting of 200 ml/hr average U/O. Currenlty > 2 L negative for I/O. - Plan to decrease Epinephrine to 0.01 from 0.02 mcg/kg/min this later a.m. - No sedation yesterday/overnight. MS slightly improving. If MS continues to improve, c an consider extubation in next 24-48 hours. - Decreased the PEEP to 8 from 10 in setting of 100% O2 sat on 40% FiO2 - Continue with amiodarone 200 mg PO bid - Continue heparin gtt and follow heparin levels per protocol. - Check lab values per CRRT protocol - Continue Nepro TF's at goal 40 ml/hr For Midlevel Providers (only): I have spent 24 minutes, independently, in the care and management of this patient who is c ritically ill at this time. Time spent includes chart dissection, reviewing labs/studies, im plementation of plans. JOHNNY MERAZ PA-C [facility] DEPARTMENT: [facility] ICU CARDIAC [[id number]] Place of Service:- Inpatient Date of Service: 12/11/2012 CSN: [id number] Suggested Modifier: None Suggested CPT: TO LOAN REVIEW ANALYST Mack Malagon MD - 12/10/2012 2:15 PM PDT [facility] DEPARTMENT: [facility]- [id number] Place of Service: IP - Date of Service: 12/10/2012 CSN: [id number] Modifiers:GC Resident Involved: yes Suggested CPT: 30090 Critical Care, Initial 30-74 minutes 36 minutes total time spent in Critical care independent of procedures. My impression, recent events and assesment are at the top of this note. Today's data which were reviewed are listed below the A&P I saw and examined JOSEF RAMOS with the [facility]. I agree with the written assess ment and plan. 24 hour course summary and observations Mr Ramos remains on the vent after his eventful week of drainage of tamponade/sepsis, etc He is not recovering quickly. Weaning epi daily Off vasopressors finally Minimal neuro recovery Good UOP but no clearance so we plan to start crrt today as uremia may be contributing to t he encephalopathy Sodium up to 150 Assessment and Plan Acute respiratory failure Fluid overload kourtney Cardiogenic shock on inotropes Mental retardation Hypernatremia Check ammonia Use h20 until dialysis starts Stop abx Intake/Output Summary (Last 24 hours) at 12/10/12 1415 Last data filed at 12/10/12 1300 Gross per 24 hour Intake 4108.61 ml Output 3640 ml Net 468.61 ml Lab Results Lab Test Name Results Date/Time PH 7.43 12/10/12 PH 7.24 12/04/12 PCO2 38 12/10/12 PCO2 39 12/04/12 PO2 120 12/10/12 PO2 210 12/04/12 HCO3 24 12/10/12 HCO3 16.5 12/04/12 FIO2 .40 12/10/12 FIO2 100.0 12/04/12 Chemistries: Last 72 Hours (or 3 results): Recent Labs Basename 12/10/12 0205 12/09/12 18012/09/12 0154 12/08/12 0200 NA 150* 148* 149* -- K 4.0 4.4 4.6 -- CL 110* 110* 109* -- BICARB 26 26 26 -- BUN 123* 124* 114* -- CR 6.81* 6.50* 6.16* -- CA 8.0* 8.1* 8.1* -- MG 2.8* -- 2.6* 3.1* PO4 8.6* 8.2* 8.7* -- CBC with diff last 72 hours (or 3 results) Recent Labs Basename 12/10/12 0205 12/09/12 0154 12/08/12 18012/08/12 0200 WBC 17.2* 14.3* 14.1* -- HB 8.5* 8.3* 8.1* -- HCT 24.8* 24.3* 24.2* -- PLT 190 175 184 -- NEUTROPERC 84* 72* -- 82* BANDPCT 3 8 -- -- LYMPHPERC 2* 8* -- 8* MONOPERC 7 8 -- 7 BASOPERC 1 1 -- 0 EOSPERC 3 3 -- 3 BLOOD CULTURE [facility] (no units) Date Value 11/30/2012 Final Report:No Bacteria or Yeast isolated at 5 days. CULTURE RESULT (no units) Date Value 12/08/2012 C Wound Deep Source: Swab Prelim GRAM STAIN: No squamous epithelial cells Rare polymorphonuclear cells No organisms seen CULTURE RESULT: No growth to date Culture examined daily Report will be updated if growth occurs 12/08/2012 C AFB Source: Swab SMEAR: AFB not detected 12/08/2012 C Tissue Source: Tissue Prelim GRAM STAIN: No squamous epithelial cells Rare polymorphonuclear cells No organisms seen CULTURE RESULT: No growth to date Culture examined daily Report will be updated if growth occurs 12/08/2012 C AFB Source: Tissue SMEAR: AFB not detected 12/08/2012 C Wound Deep Source: Swab Prelim GRAM STAIN: No squamous epithelial cells Rare polymorphonuclear cells No organisms seen CULTURE RESULT: No growth to date Culture examined daily Report will be updated if growth occurs 12/08/2012 C AFB Source: Swab SMEAR: AFB not detected CHEST, 1 VIEW (no units) Date Value Range Status 12/01/2012 Final Value: EXAM: AP Chest COMPARISON: 11/30/12. INDICATION: Follow-up cardiac surgery FINDINGS: Cardiac silhouette is enlarged. Sternotomy wires are intact and well aligned. Bilateral pleural effusions and left lower lobe atelectasis is noted. There is no pneumothorax. IMPRESSION: Cardiomegaly with moderate left lower lobe atelectasis and minimal edema. Attending Radiologists: TINY GARCIA MD Author: TINY GARCIA MD I have personally viewed this procedure/exam, reviewed this report, and made changes to it where appropriate. Final/Electronically signed / TINY GARCIA 12/01/2012 13:30 PM CHEST, 2 VIEWS OR STEREO (no units) Date Value Range Status 11/26/2012 Final Value: EXAM:PA and lateral CHEST HISTORY:Preoperative evaluation. Coronary artery disease. COMPARISON:09/29/12 FINDINGS:Mild cardiomegaly as before. There is no pulmonary edema. There is no evidence for pneumonia. No pleural effusion is evident. No acute osseous abnormality is evident. IMPRESSION: Mild cardiomegaly, otherwise negative. Attending Radiologists: GURPREET CONLEY MD Author: GURPREET CONLEY MD I have personally viewed this procedure/exam, reviewed this report, and made changes to it where appropriate. Final/Electronically signed / GURPREET CONLEY 11/27/2012 8:07 AM X-RAY PORTABLE CHEST 1 VIEW (no units) Date Value Range Status 12/10/2012 Final Value: STUDY: DC CHEST 1 VIEW 12/10/12 05:41:00 HISTORY: Evaluate retrocardiac opacity. COMPARISON: 12/09/12, 12/07/12, 12/01/12 FINDINGS: The endotracheal tube tip terminates 5 cm above the john. The left IJ pulmonary catheter and enteric tube are unchanged in location. Dense retrocardiac opacity is unchanged, and there is new mild right basilar atelectasis. Persistent small left pleural effusion. Median sternotomy wires are intact; otherwise the osseous structures and soft tissues are unremarkable. IMPRESSION: No change in dense retrocardiac opacity over many days. This is thought to represent atelectasis but a superimposed pneumonia would be indistinguishable radiographically. New right lower lobe ground glass opacity consistent with atelectasis versus aspiration. Attending Radiologists: PRECIOUS HOLT MD Author: SPENCER ALANIS MD I have personally viewed this procedure/exam, reviewed this report, and made changes to it where appropriate. Final/Electronically signed / PRECIOUS HOLT 12/10/2012 10:53 AM Dorys Mccullough MD - 12:58 PM PDTI saw and examined patient with Dr. Parish and agree with her findings an d plan. Please do not give free water as CVVH starting soon, and don't want to correct too quickly/ over-correct. [facility] DEPARTMENT: [id number]- [facility] NEPHROLOGY [facility] Place of Service: [id number] - CSN: [id number] Suggested Modifier: GC Resident Involved abib, Kenia Peters MD - 12:58 PM PDT NEPHROLOGY PROGRESS NOTE Date of service: 12/10/2012 12:58 PM Nephrology attending: Cony A/P: Mr. Ramos is a 67 y.o. Gentleman with CAD s/p CABG, complicated by LV thrombus and t hen VF arrest d/t pericardial tamponade requiring bedside sternotomy and evacuation of clot, now s/p chest closure on 12/08/12. 1. KOURTNEY: Secondary to ATN in the setting of above. Continues to be non-oliguric. Cr is worse today. While GFR is not zero, it is certainly very impaired. No CRRT yesterday due to no access. Team planning to remove L sided PA catheter, place a P ICC for access, and place a LIJ HD catheter. -CRRT 4K/4K (higher goal for K given cardiac surgery), heparin anticoag. Will ask RNs to no t do much UF if he continues to have his own urine output above 100 ml/hr. Primary indicatio n is clearance/uremia. 2. Hypernatremia: At least 2 L free water deficit. Will resolve on CRRT. -Will watch sodium carefully on CRRT, try not to correct too quickly (cannot really change sodium bath in bags, we only have standard Na bags and hyponatremic solutions). Discussed with Dr. Donnelly who agrees with the above. 24 hr events: Unable to place HD catheter, CRRT not started. S: Unable to obtain, intubated, obtunded (no sedation x 24 hrs). ROS: As above. Current Facility-Administered Medications Medication Dose Route Frequency Provider Last Rate Last Dose aluminum hydroxide (aka AMPHOJEL) 320 mg/5 mL suspension 30 mL 30 mL Feeding Tube Q6H Veronika Palacios MD 30 mL at 12/10/12 0936 amiodarone (aka CORDARONE) tablet 200 mg 200 mg Oral BID SARANYA Valencia amiodarone 1.8 mg/mL in dextrose 5% IV infusion 0.5-1 mg/min Intravenous CONTINUOUS Ashwin Palacois MD 16.67 mL/hr at 12/10/12 1200 0.5 mg/min at 12/10/12 1200 aspirin chewable tablet 81 mg 81 mg Oral DAILY SARANYA Young 81 mg at 3 0936 bisacodyl (aka DULCOLAX) suppository 10 mg 10 mg Rectal BID PRN SARANYA Young chlorhexidine (aka PERIDEX) mouthwash 15 mL 15 mL Oral Q6H Eliot Carr MD 15 mL at 12/10/12 1000 dextrose 5% IV 75 mL/hr Intravenous CONTINUOUS SARANYA Valencia 75 mL/hr at 12/10/12 1200 75 mL/hr at 12/10/12 1200 dextrose 5%-NaCl 0.45% IV infusion 10 mL/hr Intravenous CONTINUOUS Precious Alvarado MD 10 mL/hr at 12/10/12 1200 10 mL/hr at 12/10/12 1200 dextrose 50 % injection 12.5 g 25 mL Intravenous PRN Marky Lemus MD senna (aka SENOKOT) liquid 8.8 mg 5 mL Feeding Tube BID Veronika Palacios MD 8.8 mg at 12/10/12 0900 And docusate sodium liquid 50 mg 50 mg Feeding Tube BID Veronika Palacios MD EPINEPHrine in NS IV infusion 5 mg/250 mL (0.02 mg/mL) 0.02 mcg/kg/min (Order-Specific ) Intravenous CONTINUOUS SARANYA Valencia 9.6 mL/hr at 12/10/12 1200 0.02 mcg/kg/min at 1200 folic acid (aka FOLVITE) tablet 1 mg 1 mg Feeding Tube DAILY Eliot Carr MD 1 mg at 12/10/12 0900 furosemide 5 mg/mL in NaCl 0.9 % IV infusion 1-10 mg/hr Intravenous CONTINUOUS Shira kim MD 2 mL/hr at 12/10/12 1200 10 mg/hr at 12/10/12 1200 glucagon (aka GLUCAGEN) injection 1 mg 1 mg Intramuscular PRN Marky Lemus MD glucose chewable tablet 16 g 16 g Oral Q15MIN PRN Marky Lemus MD glutamine (aka GLUTASOLVE) packet 15 g 15 g Feeding Tube TID Steven Victor MD 15 g at 12/10/12 0900 guar gum (aka BENEFIBER) oral powder 1 Packet 1 Packet Oral DAILY PRN SARANYA Young heparin in D5W IV infusion 25,000 units/250 mL 1,400 Units/hr Intravenous CONTINUOUS SARANYA Marcelo 14 mL/hr at 12/10/12 1200 1,400 Units/hr at 12/10/12 1200 HYDROmorphone (aka DILAUDID) injection 0.2-1 mg 0.2-1 mg Intravenous Q1H PRN Veronika Palacios MD 0.2 mg at 12/10/12 0800 insulin regular in NaCl 0.9% IV infusion 250 units/250 mL (1 unit/mL) 0.25-40 Units/hr Intravenous CONTINUOUS Eliot Carr MD 4 mL/hr at 12/10/12 1200 4 Units/hr at 12/10/12 1 200 menthol-zinc oxide (aka CALAZIME) topical paste Topical QID PRN SARANYA Young wexmpqwohbgy-pymn-iezhpqdh (aka CEROVITE) liquid 15 mL 15 mL Oral DAILY Eliot Carr MD 15 mL at 12/10/12 0900 norepinephrine in NaCl 0.9% IV infusion 8 mg/250 mL (0.032 mg/mL) 0.02-2 mcg/kg/min (O rder-Specific) Intravenous CONTINUOUS Narendra Lunsford MD 0.02 mcg/kg/min at 12/09/12 1400 omeprazole (aka PRILOSEC) oral suspension 40 mg 40 mg Feeding Tube DAILY Johnny jean PA-C 40 mg at 12/10/12 0900 ondansetron (aka ZOFRAN) injection 4 mg 4 mg Intravenous Q12H PRN SARANYA Young 4 mg at 11/30/12 0254 piperacillin-tazobactam (aka ZOSYN) IV 3.375 g 3.375 g Intravenous Q6H Veronika Palacios MD 3.375 g at 12/10/12 0900 polyethylene glycol (aka MIRALAX) powder 17 g 17 g Oral DAILY PRN SAARNYA Young simethicone chew (aka MYLICON) tablet 80 mg 80 mg Oral TID PRN SARANYA Young thiamine tablet 100 mg 100 mg Oral DAILY Eliot Carr MD 100 mg at 12/10/12 0900 vasopressin in NS IV infusion (Pyxis) 1-4 Units/hr Intravenous CONTINUOUS Steven logan MD 1 Units/hr at 12/07/12 2200 white petrolatum-mineral oil (aka LACRILUBE) 83-15 % ophthalmic ointment Both Eyes Q6 H Eliot Carr MD O: BP 109/62 | Pulse 68 | Temp 36.4 C (97.5 F) | RR 19 | Ht 1.88 m (6' 2") | Wt 158.7 kg ( 349 lb 13.9 oz) | SpO2 98% | BMI 44.92 kg/(m^2) Systolic (24hrs), Av mmHg, Min:103 mmHg, Max:148 mmHg Diastolic (24hrs), Av mmHg, Min:53 mmHg, Max:77 mmHg Pulse Av.9 Min: 67 Max: 123 Temp Av.1 C (98.7 F) Min: 36.4 C (97.5 F) Max: 37.5 C (99.5 F) Resp Av.3 Min: 18 Max: 27 SpO2 Av.1 % Min: 98 % Max: 100 % I/O: Intake/Output Summary (Last 24 hours) at 12/10/12 1305 Last data filed at 12/10/12 1200 Gross per 24 hour Intake 4089.58 ml Output 3490 ml Net 599.58 ml General: Intubated, not on sedation, obtunded. Heart/vascular: RRR, no m/r/g. Lungs: Coarse/vented anterior xavier. Abdomen: Soft, slightly distended, +BS. Arms/legs: Anasarca. Access: None. Labs: Chemistries Last 72 Hours (or 3 results): Recent Labs Basename 12/10/12 0205 12/09/12 1802 12/09/12 0154 12/08/12 0200 NA 150* 148* 149* -- K 4.0 4.4 4.6 -- CL 110* 110* 109* -- BICARB 26 26 26 -- BUN 123* 124* 114* -- CR 6.81* 6.50* 6.16* -- CA 8.0* 8.1* 8.1* -- MG 2.8* -- 2.6* 3.1* PO4 8.6* 8.2* 8.7* -- AST 286* -- 514* 1268* ALT 1423* -- 2067* 3113* TBILI 4.6* -- 4.9* 5.4* AP 172* -- 136* 179* ALB 2.1*|2.1* 2.1* 2.2*|2.2* -- TP 5.9* -- 5.5* 5.5* CBC with diff last 72 hours (or 3 results) Recent Labs Basename 12/10/12 0205 12/09/12 0154 12/08/12 1804 12/08/12 0200 WBC 17.2* 14.3* 14.1* -- HB 8.5* 8.3* 8.1* -- HCT 24.8* 24.3* 24.2* -- PLT 190 175 184 -- NEUTROPERC 84* 72* -- 82* BANDPCT 3 8 -- -- LYMPHPERC 2* 8* -- 8* MONOPERC 7 8 -- 7 BASOPERC 1 1 -- 0 EOSPERC 3 3 -- 3 PLEASE SEE ASSESSMENT AND PLAN AT THE TOP OF THIS NOTE recious Alvarado MD - 12/10/2012 6:05 AM PDT [facility] DAILY PROGRESS NOTE (Resident) Team Pager: [phone] Attendin Author: PRECIOUS ALVARADO MD Date:12/10/2012 Attending Insurance Compliance Analyst: Operating Surgeon: MD Narendra Green MD POD #11 3v CABG (11/29/12), POD#6 sternotomy (12/04/12) POD#2 chest closure (12/08/12) HPI: Josef Ramos is a 67 y.o. man with a h/o severe CAD with LV thrombus, developmental delay, morbid obesity, HTN and CKD who is s/p CABG x3 who was transferred to ICU for late ca rdiac tamponade requiring bedsime sternotomy to evacuate thrombus. Hospital Course: 10/02/12 - VT arrest s/p amiodarone, defibrillation, conversion to afib - TTE: decreased LV systolic fx with LV thrombus - cardiac cath: severe 3v CAD 11/29/12 - LV thrombus revascularization - transfer to floor 12/04/12 - transfer to ICU due to hemodynamic collapse - continue to decompensate - intubation with CMAC; propofol 120, vijay 160 - US-guided R IJ triple lumen, L radial A line - severe persistent hypotension despite bolus of epi, NE, vasopressin - ABG: metabolic acidosis with AG, lactate 20 - NaHCO3, CaCl -> BP improve - Bedside echo: limited quality, poor LV fx and hypokinesis - Conversion to SVT, shock x1, CPR x1, VT - Bedside sternotomy - CT surgery: evacuation of clot; hemodynamically stable 12/08/12 - Chest closure 24 Hour Events: Furosemide gtt Held off on CRRT due to limited access Assessment and Plan: NEURO Post-operative nociceptive pain Toxic metabolic encephalopathy - uremia Hydromorphone prn Ammonia level Possible head CT once chest closed if not progressing neurologically CV A. Fib with RVR (12/09) - now in NSR CAD, s/p CABG x 3 Chronic Diastolic Left Ventricular Failure Cardiogenic shock H/o late cardiac tamponade from external thrombus S/p sternotomy Afib with RVR - resolved Decrease epi to 0.02, plan to decrease tomorrow to 0.01 Loaded with amiodarone yesterday, d/c drip today Start amiodarone 200mg PO BID Maintain blakes to suction PULMO Pulmonary insufficiency secondary to illness Volume control RENAL/ ELECTROLYTES Acute kidney injury/Acute renal failure 2/2 hypoperfusion Hypernatremia Azotemia I/O goal -1L or more Maintain leslie catheter q12 hr renal panel Start D5 - H20 at 75mL/hr for hyopnatremia D/c enteral free water flushes Plan to place dialysis line today Renal plans to begin CRRT today GI Ischemic hepatitis - LFTs improving GI prophylaxis Omeprazole Nephro TF increase to goal 40 cc/hr Avoid hepatotoxic agents HEM/COAG H/o post-operative clot causing tamponade physiology H/o LV thrombus Acute postoperative blood loss anemia Acute postoperative thrombocytopenia DVT prophylaxis Check CBC daily Heparin increased to 1400 U/hr this AM Heparin goal 0.3-0.5 ATIII goal > 0.5 ID Leukocytosis - increased today Cultures continue to be negative D/c zosyn Continue to follow for signs of systemic infection ENDO Hyperglycemia, stress-induced Insulin gtt OTHER Morbid obesity, Body mass index is 45.09 kg/(m^2) Dispo Code status CODE STATUS : FULL Maintain ICU care Infusions: Epi 0.02 Insulin Heparin Physical Exam: Neuro: Does not respond to commands this AM (report says he wiggles toes to command) Sedation Score: RON 2: Responsive to touch Chest: clear and equal bilaterally Incision:CDI Cardiac: Rhythm: NSR RRR and no M/G/R Abdomen: soft and obese Extremities: 2+ edema Skin: normal Tubes/Lines (insertion date): L IJ PA catheter (12/08/12) Leslie catheter (12/04/12) ETT (12/04/12) OG tube (12/04/12) R radial a-line (12/08/12) Feeding: Tube Feeds Analgesia:Hydromorphone prn Sedation: None Thromboprophylaxis: Heparin infusion Head of Bed: Head of Bed >30 degrees Ulcer Prophylaxis:Omeprazole Glycemic control: insulin infusion PRECIOUS ALVARADO MD abib, Kenia Peters MD - 12/09/2012 4:01 PM PDTAddendum: ICU team unable to place HD access, so will hold off on CRRT for now (R IJ is clotted, do n ot want to place in groin). kopal, Dorys Black MD - 12/09/2012 1:34 PM PDTI saw and examined patient with Dr. Jem fernandez agree with her findings and plan. [facility] DEPARTMENT: [phone]- [facility] NE[facility]OLOG[facility] Place of Service: [id number] - IP CSN: [id number] Suggested Modifier: GC Resident Involved Kenia Arredondo MD - 1:34 PM PDT NEPHROLOGY PROGRESS NOTE Date of service: 12/09/2012 1:34 PM Nephrology attending: Cony A/P: Mr. Ramos is a 67 y.o. Gentleman with CAD s/p CABG, complicated by LV thrombus and t hen VF arrest d/t pericardial tamponade requiring bedside sternotomy and evacuation of clot, now s/p chest closure on 12/08/12. 1. KOURTNEY: Secondary to ATN in the setting of above. Continues to be non-oliguric. As outl ined in previous notes, we have been waiting for him to have an improvement in his Cr and im provement in GFR above 10 ml/min (his GFR is not zero given that he is making urine and his Cr is not changing). His clearance is still less than 10 though, and given that it has not changed significantly in the past few days with ongoing altered mental status that may be re lated to uremia, we agree with the ICU team that we should try dialytic therapy to see if it helps him clear mentally (and as his GFR is still very impaired). He will start heparin this evening. The ICU team will place a temporary HD catheter today and we can start CRRT with heparin anticoagulation later today. -CRRT 4K/4K (higher goal for K given cardiac surgery), heparin anticoag. Will ask RNs to n ot do much UF if he continues to have his own urine output above 100 ml/hr. Primary indicat ion is clearance/uremia. Discussed with Dr. Donnelly who agrees with the above. 24 hr events: Continues with brisk UOP, but not much change in BUN/Cr. Chest closure yest erday. S: Unable to obtain, intubated/unresponsive. ROS: As above. Current Facility-Administered Medications Medication Dose Route Frequency Provider Last Rate Last Dose aluminum hydroxide (aka AMPHOJEL) 320 mg/5 mL suspension 30 mL 30 mL Feeding Tube Q6H Veronika Palacios MD 30 mL at 12/09/12 1002 aspirin chewable tablet 81 mg 81 mg Oral DAILY SARANYA Young 81 mg at 3 0935 bisacodyl (aka DULCOLAX) suppository 10 mg 10 mg Rectal BID PRN SARANYA Young calcium chloride IV 1 g 1 g Intravenous PRN Kenia Parish MD chlorhexidine (aka PERIDEX) mouthwash 15 mL 15 mL Oral Q6H Eliot Carr MD 15 mL at 12/09/12 0935 CRRT dialysate fluid for HEPARIN anticoagulation (aka PRISMASATE) (WITH Calcium) Intr avenous CONTINUOUS Kenia Parish MD CRRT replacement fluid (aka PRISMASOL BGK2/0) (POST-FILTER) (WITH Calcium) Intravenou s CONTINUOUS Kenia Parish MD CRRT replacement fluid (aka PRISMASOL BGK2/0) (PRE-FILTER) (WITH Calcium) Intravenous CONTINUOUS Kenia Parish MD dextrose 5%-NaCl 0.45% IV infusion 25 mL/hr Intravenous CONTINUOUS Veronika Palacios MD 2 5 mL/hr at 12/09/12 1300 25 mL/hr at 12/09/12 1300 dextrose 50 % injection 12.5 g 25 mL Intravenous PRN Marky Lemus MD senna (aka SENOKOT) liquid 8.8 mg 5 mL Feeding Tube BID Veronika Palacios MD 8.8 mg at 12/09/12 0935 And docusate sodium liquid 50 mg 50 mg Feeding Tube BID Veronika Palacios MD 50 mg at 12/09 0932 EPINEPHrine in NS IV infusion 5 mg/250 mL (0.02 mg/mL) 0.03 mcg/kg/min (Order-Specific ) Intravenous CONTINUOUS Veronika Palacios MD 14.4 mL/hr at 12/09/12 1300 0.03 mcg/kg/min at 1300 folic acid (aka FOLVITE) tablet 1 mg 1 mg Feeding Tube DAILY Eliot Carr MD 1 mg at 12/09/12 0935 glucagon (aka GLUCAGEN) injection 1 mg 1 mg Intramuscular PRN Marky Lemus MD glucose chewable tablet 16 g 16 g Oral Q15MIN PRN Marky Lemus MD glutamine (aka GLUTASOLVE) packet 15 g 15 g Feeding Tube TID Steven Victor MD 15 g at 12/09/12 1002 guar gum (aka BENEFIBER) oral powder 1 Packet 1 Packet Oral DAILY PRN SARANYA Young heparin in D5W IV infusion 25,000 units/250 mL 1,000 Units/hr Intravenous CONTINUOUS R deonte Victor MD HYDROmorphone (aka DILAUDID) injection 0.2-1 mg 0.2-1 mg Intravenous Q1H PRN Veronika Palacios MD 0.5 mg at 12/09/12 0019 insulin regular in NaCl 0.9% IV infusion 250 units/250 mL (1 unit/mL) 0.25-40 Units/hr Intravenous CONTINUOUS Eliot Carr MD 3 mL/hr at 12/09/12 1202 3 Units/hr at 12/09/12 1 202 magnesium sulfate IV 2 g 2 g Intravenous PRN Kenia Parish MD menthol-zinc oxide (aka CALAZIME) topical paste Topical QID PRN SARANYA Young orgcokwtldmu-duqh-rntblfvp (aka CEROVITE) liquid 15 mL 15 mL Oral DAILY Eliot Carr MD 15 mL at 12/09/12 0932 norepinephrine in NaCl 0.9% IV infusion 8 mg/250 mL (0.032 mg/mL) 0.02-2 mcg/kg/min (O rder-Specific) Intravenous CONTINUOUS Narendra Lunsford MD 6 mL/hr at 12/09/12 1300 0.02 mcg/k g/min at 12/09/12 1300 omeprazole (aka PRILOSEC) oral suspension 40 mg 40 mg Feeding Tube DAILY Johnny jean PA-C 40 mg at 12/09/12 0935 ondansetron (aka ZOFRAN) injection 4 mg 4 mg Intravenous Q12H PRN SARANYA Young 4 mg at 11/30/12 0254 piperacillin-tazobactam (aka ZOSYN) IV 2.25 g 2.25 g Intravenous Q6H Alejandro Kim 2.25 g at 12/09/12 0833 polyethylene glycol (aka MIRALAX) powder 17 g 17 g Oral DAILY PRN SARANYA Young potassium chloride IV 20 mEq 20 mEq Intravenous PRN Kenia Parish MD propofol (aka DIPRIVAN) injection 0.5-60 mcg/kg/min (Order-Specific) Intravenous LATRICE NUOUS Narendra Lunsford MD 20 mcg/kg/min at 12/08/12 1400 simethicone chew (aka MYLICON) tablet 80 mg 80 mg Oral TID PRN SARANYA Young sodium phosphate 15 mmol in dextrose 5% IV 15 mmol Intravenous PRN Kenia Parish MD thiamine tablet 100 mg 100 mg Oral DAILY Eliot Carr MD 100 mg at 12/07/12 1041 vancomycin (aka VANCOCIN) IV 1,500 mg 1,500 mg Intravenous DRUG LEVEL Johnny Meraz PA-C 1,500 mg at 12/08/122020 vasopressin in NS IV infusion (Pyxis) 1-4 Units/hr Intravenous CONTINUOUS Steven logan MD 1 Units/hr at 12/07/12 2200 white petrolatum-mineral oil (aka LACRILUBE) 83-15 % ophthalmic ointment Both Eyes Q6 H Eliot Carr MD O: BP 132/62 | Pulse 79 | Temp 37.5 C (99.5 F) | RR 27 | Ht 1.88 m (6' 2") | Wt 159.3 kg ( 351 lb 3.1 oz) | SpO2 98% | BMI 45.09 kg/(m^2) Systolic (24hrs), Av mmHg, Min:104 mmHg, Max:145 mmHg Diastolic (24hrs), Av mmHg, Min:38 mmHg, Max:76 mmHg Pulse Av.9 Min: 64 Max: 85 Temp Av.1 C (98.8 F) Min: 35.8 C (96.4 F) Max: 37.9 C (100.2 F) Resp Av.4 Min: 18 Max: 27 SpO2 Av.3 % Min: 95 % Max: 100 % I/O: Intake/Output Summary (Last 24 hours) at 12/09/12 1343 Last data filed at 12/09/12 1304 Gross per 24 hour Intake 3943.54 ml Output 3720 ml Net 223.54 ml General: Intubated, not on sedation, obtunded. Heart/vascular: RRR, no m/r/g. Lungs: Coarse/vented anterior xavier. Abdomen: Soft, slightly distended, +BS. Arms/legs: Anasarca. Access: None. Labs: Chemistries Last 72 Hours (or 3 results): Recent Labs Basename 12/09/12 0154 12/08/12 1804 12/08/12 0200 12/07/12 1609 12/06/12 2320 NA 149* 147* 147* -- -- K 4.6 4.2 4.7 -- -- CL 109* 107 106 -- -- BICARB 26 27 27 -- -- BUN 114* 109* 115* -- -- CR 6.16* 6.17* 6.32* -- -- CA 8.1* 9.0 7.9* -- -- MG 2.6* -- 3.1* 3.0* -- PO4 8.7* 8.4* 9.0* -- -- AST 514* -- 1268* -- 2818* ALT 2067* -- 3113* -- 4019* TBILI 4.9* -- 5.4* -- 4.4* AP 136* -- 179* -- 184* ALB 2.2*|2.2* 2.3* 2.2*|2.2* -- -- TP 5.5* -- 5.5* -- 5.2* CBC with diff last 72 hours (or 3 results) Recent Labs Basename 12/09/12 0154 12/08/12 1804 12/08/12 0200 12/06/122026 WBC 14.3* 14.1* 17.2* -- HB 8.3* 8.1* 8.7* -- HCT 24.3* 24.2* 25.8* -- PLT 175 184 209 -- NEUTROPERC 72* -- 82* 75* BANDPCT 8 -- -- 4 LYMPHPERC 8* -- 8* 13* MONOPERC 8 -- 7 3 BASOPERC 1 -- 0 0 EOSPERC 3 -- 3 2 PLEASE SEE ASSESSMENT AND PLAN AT THE TOP OF THIS NOTE alraimundo, MD Veronika - 0 12/09/2012 12:41 PM PDT 8[facility] DAILY PROGRESS NOTE (fellow) Team Pager: [phone] Attendin Author: Veronika Palacios MD Date:12/09/2012 Attending Insurance Compliance Analyst: Operating Surgeon: MD Narendra Snyder MD POD #10 3v CABG (11/29/12), POD#5 sternotomy (12/04/12) POD#1 chest closure (12/08/12) HPI: Josef Ramos is a 67 y.o. male with a h/o severe CAD with LV thrombus, developmental zander y, morbid obesity, HTN and CKD who is transferred to ICU for shortness of breath. He is s/p 3v CABG and sternotomy to remove thrombus and relieve cardiac tamponade. Hospital Course: 10/02/12 - VT arrest s/p amiodarone, defibrillation, conversion to afib - TTE: decreased LV systolic fx with LV thrombus - cardiac cath: severe 3v CAD 11/29/12 - LV thrombus revascularization - transfer to floor 12/04/12 - transfer to ICU due to hemodynamic collapse - continue to decompensate - intubation with CMAC; propofol 120, vijay 160 - US-guided R IJ triple lumen, L radial A line - severe persistent hypotension despite bolus of epi, NE, vasopressin - ABG: metabolic acidosis with AG, lactate 20 - NaHCO3, CaCl -> BP improve - Bedside echo: limited quality, poor LV fx and hypokinesis - Conversion to SVT, shock x1, CPR x1, VT - Bedside sternotomy - CT surgery: evacuation of clot; hemodynamically stable 12/08/12 Chest closure 24 Hour Events: To OR yesterday for chest closure No acute events o/n Sedation off post operatively Assessment and Plan: NEURO Post-operative nociceptive pain Toxic metabolic encephalopathy Propofol Fentanyl prn Will require head CT once chest closed if not progressing neurologically CV CAD, s/p CABG x 3 Chronic Diastolic Left Ventricular Failure Cardiogenic shock H/o late cardiac tamponade from external thrombus S/p sternotomy Afib with RVR - resolved Epi .03 wean as tolerated Goal MAP >65 Avoiding amio 2/2 increased in LFTs Fluid challenge with 500 cc bolus to see if CI improves Keep blakes to suction PULMO Pulmonary insufficiency secondary to illness Volume control RENAL/ ELECTROLYTES Acute kidney injury/Acute renal failure 2/2 hypoperfusion ATN diuresis Hypernatremia Azotemia I/o goal even to +500 Leslie catheter q12 hr renal panel Free water flushes 200 q 8 CRRT today GI Ischemic hepatitis GI prophylaxis Omeprazole Nephro TF increase to goal 40 cc/hr Daily LFTs - improving Avoid hepatotoxic agent HEM/COAG LV thrombus Acute postoperative blood loss anemia Acute postoperative thrombocytopenia DVT prophylaxis Check CBC daily Heparin gtt to restart @ 1000 U/hr @ 6pm Heparin goal .3-.5 ATIII goal > 0.5 ID Leukocytosis, reactive - decreasing DC vanco Continue with zosyn for 1 more day. If cultures negative, dc tomorrow Vanco trough Zosyn Culture pericardial fluid in OR ENDO Hyperglycemia, stress-induced Insulin gtt OTHER Morbid obesity, Body mass index is 45.09 kg/(m^2). CODE STATUS : FULL Infusions: Prop Epi .03 insulin Physical Exam: Neuro: opens eyes to voice. Wilsk. Withdraws to pain in all 4 extremities Chest: clear and equal bilaterally Incision: dressing in tact. blakes to suction Cardiac: Rhythm: NSR RRR, sinus and normal S1 and S2 Abdomen: soft and obese Extremities: not examined Skin: no rash Tubes/Lines (insertion date): L IJ PA catheter 12/08/12 Leslie catheter 12/04/12 Shabnam drain ETT 12/04/12 OG tube 12/04/12 R radial a-line 12/08/12 Feeding: TF advance to goal 40 cc/hr Analgesia: fentanyl prn Sedation: propofol Thromboprophylaxis: SCDs, heparin gtt to start tonight Head of Bed: Head of Bed >30 degrees Ulcer Prophylaxis:Omeprazole Glycemic control: insulin gtt Veronika Palacios MD ak, MD [place] - 12/09/2012 9:11 AM PDTFormatting of this note might be different from the or iginal. [facility] ATTENDING PROFESSIONAL BONDSMAN DAILY PROGRESS NOTE Team Pager: [phone] Attending Pager: [phone] Author: ELMIRA SALGUERO MD ATTESTATION: I saw and evaluated the patient at the bedside together with Dr. Palacios. Please see their note for a detailed rounding summary. I reviewed the documented findings, relevant data, and recent imaging available. I agree with the assessment and plan as described in [facility] resident's note with the following exceptions/additions as noted below. HPI: 67 yo man with hx of CAD s/p 3V CABG (DE LA ROSA --> LAD, SVG --> OM, PDA) on 11/29/12, development al delay, morbid obesity, VT, LV thrombus, HTN, and CKD (baseline Cr ~1.5) who returned to [facility] for shortness of breath. 24 Hr Events: - returned from OR after successful chest closure - pt opening eyes to voice, moving all exts, very limited response to command - decision made to start CRRT - when going to place HD catheter, clot visualized in right IJ under ultrasound - went into AF and started on amio Assessment: - sedation: minimal sedation now that chest closed and waiting for mental status to clear - CAD s/p CABG - Late cardiac tamponade from external thrombus s/p bedside sternotomy - cardiogenic shock: stable on low dose epi - LV thrombus: restart heparin infusion tonight - AF: holding pressures, but will start amio - vasoplegic shock - vent dependent respiratory failure: stable on low settings on vent. Will extubate when me ntal status improves - non-oliguric renal failure: [facility] Significantly po st-ATN diuresis. Cr, BUN, and K at plateau but not really coming down - ischemic hepatitis: 2/2 to low flow from tamponade. AST peaked at 14,000 and transaminase s. Plan: - cont epi at 0.03 - amio load and infusion - d/c vancomycin, plan to d/c pip-tazo tomorrow if cultures clear and no signs of infection - restart heparin gtt - volume challenge with pre and post CO assessment - maintain MAP >65 - hold on CRRT for now given clot in R IJ, PA cath in L IJ, concern for placing cath in sub clavian or femoral position at this time. I have spent 35 minutes in the care and management of this patient who is critically ill. Elmira Salguero MD Health Care Facilities Inspectornuclear fuel processing technician Pulmonary and Critical Care Medicine [facility] DEPARTMENT: [facility] [id number] Place of Service: Date of Service: 12/09/2012 CSN: [id number] Modifiers: Resident Involved: yes Suggested CPT: 00470 Critical Care, Initial 30-74 minutes Mack Malagon MD - 11/24 8:08 PM PDT [facility] DEPARTMENT: [facility]- [id number] Place of Service: Date of Service: 12/08/2012 CSN: [id number] Modifiers: Resident Involved: yes Suggested CPT: 61719 Critical Care, Initial 30-74 minutes 42 minutes total time spent in Critical care independent of procedures. My impression, recent events and assesment are at the top of this note. Today's data which were reviewed are listed below the A&P I saw and examined JOSEF RAMOS with the [facility] housestaff. I agree with the written assess ment and plan. 24 hour course summary and observations Patient to OR today for washout and chest closure This was uneventful He returns to icu on epi/norepi Has a newly placed SG catheter We pulled his old I and R fem a line Starting to awaken with sedation off, opened eyes to voice Making good urine Cr starting to decline Assessment and Plan Cardiogenic shock post tamponade Cad post cabg Fluid overload Kourtney, non-oliguric from atn Possible pneumonia Pulmonary edema Mental retardation Deconditioning Continue present course Wean to extubate tonight Allow diuresis Intake/Output Summary (Last 24 hours) at 12/08/122007 Last data filed at 12/08/121999 Gross per 24 hour Intake 3520 ml Output 5445 ml Net -1925 ml Lab Results Lab Test Name Results Date/Time PH 7.40 12/08/12 PH 7.24 12/04/12 PCO2 43 12/08/12 PCO2 39 12/04/12 PO2 90 12/08/12 PO2 210 12/04/12 HCO3 26 12/08/12 HCO3 16.5 12/04/12 FIO2 0.45 12/07/12 FIO2 100.0 12/04/12 Chemistries: Last 72 Hours (or 3 results): Recent Labs Basename 12/08/12 1804 12/08/12 0200 12/07/12 1609 12/07/12 0102 NA 147* 147* 146* -- K 4.2 4.7 4.5 -- CL 107 106 104 -- BICARB 27 27 26 -- BUN 109* 115* 118* -- CR 6.17* 6.32* 6.44* -- CA 9.0 7.9* 7.9* -- MG -- 3.1* 3.0* 2.9* PO4 8.4* 9.0* 9.6* -- CBC with diff last 72 hours (or 3 results) Recent Labs Basename 12/08/12 1804 12/08/12 0200 12/07/12 0202 12/06/12202612/06/12 0228 WBC 14.1* 17.2* 19.5* -- -- HB 8.1* 8.7* 8.5* -- -- HCT 24.2* 25.8* 24.9* -- -- PLT 184 209 214 -- -- NEUTROPERC -- 82* -- 75* 68 BANDPCT -- -- -- 4 6 LYMPHPERC -- 8* -- 13* 12* MONOPERC -- 7 -- 3 8 BASOPERC -- 0 -- 0 1 EOSPERC -- 3 -- 2 3 BLOOD CULTURE [facility] (no units) Date Value 11/30/2012 Final Report:No Bacteria or Yeast isolated at 5 days. CULTURE RESULT (no units) Date Value 11/30/2012 C Urine Source: Urine Final CULTURE RESULT: No growth (<1000 col/ml) after 24 hours CHEST, 1 VIEW (no units) Date Value Range Status 12/01/2012 Final Value: EXAM: AP Chest COMPARISON: 11/30/12. INDICATION: Follow-up cardiac surgery FINDINGS: Cardiac silhouette is enlarged. Sternotomy wires are intact and well aligned. Bilateral pleural effusions and left lower lobe atelectasis is noted. There is no pneumothorax. IMPRESSION: Cardiomegaly with moderate left lower lobe atelectasis and minimal edema. Attending Radiologists: TINY GARCIA MD Author: TINY GARCIA MD I have personally viewed this procedure/exam, reviewed this report, and made changes to it where appropriate. Final/Electronically signed / TINY GARCIA 12/01/2012 13:30 PM CHEST, 2 VIEWS OR STEREO (no units) Date Value Range Status 11/26/2012 Final Value: EXAM:PA and lateral CHEST HISTORY:Preoperative evaluation. Coronary artery disease. COMPARISON:09/29/12 FINDINGS:Mild cardiomegaly as before. There is no pulmonary edema. There is no evidence for pneumonia. No pleural effusion is evident. No acute osseous abnormality is evident. IMPRESSION: Mild cardiomegaly, otherwise negative. Attending Radiologists: GURPREET CONLEY MD Author: GURPREET CONLEY MD I have personally viewed this procedure/exam, reviewed this report, and made changes to it where appropriate. Final/Electronically signed / GURPREET CONLEY 11/27/2012 8:07 AM X-RAY PORTABLE CHEST 1 VIEW (no units) Date Value Range Status 12/08/2012 Final Value: DC CHEST 1 VIEW, 12/08/12 05:49:00 COMPARISON: 12/07/12 HISTORY: Evaluate retrocardiac opacity FINDINGS: The support equipment is unchanged. The cardiac silhouette is stable. Dense retrocardiac atelectasis is again present, and there is mildly increased right basilar atelectasis. There is no new or developing consolidation or pneumothorax. A small left pleural effusion is redemonstrated. The osseous structures are intact. Wire fragment again noted in near the manubrium. Linear lucency projecting vertically along the left aspect of the spine could potentially be a skin fold. IMPRESSION: Stable dense retrocardiac atelectasis and mildly increased right basilar atelectasis. Developing pneumonia could be considered in the setting of fever. Stable small left pleural effusion. Attending Radiologists: SONAL STOKES MD Author: Marques Ahuja M.D. I have personally viewed this procedure/exam, reviewed this report, and made changes to it where appropriate. Final/Electronically signed / SONAL STOKES 12/08/2012 11:09 AM Helen Alvarez MD - 12/08/2012 5:38 PM PDTBrief Op Note Pre: Open chest Post: Same Proced: Mediastinal Washout and Sternal closure Surg: Gerard Asst: Kulwinder Anes: GET Comp: None Drains: Blakes x2 Findings: Stable hemodynamics with chest closed Dispo: Critical, stable to SICU Dictation: [id number] HELEN GEE MD Cardiothoracic Surgery Fellow Elmira Rutherford MD - 12/08/2012 7:32 AM PDT [facility] ATTENDING PROFESSIONAL BONDSMAN DAILY PROGRESS NOTE Team Pager: [phone] Attending Pager: [phone] Author: ELMIRA SALGUERO MD ATTESTATION: I saw and evaluated the patient at the bedside together with Dr. Palacios. Please see their note for a detailed rounding summary. I reviewed the documented findings, relevant data, and recent imaging available. I agree with the assessment and plan as described in t he resident's note with the following exceptions/additions as noted below. HPI: 67 yo man with hx of CAD s/p 3V CABG (DE LA ROSA --> LAD, SVG --> OM, PDA) on 11/29/12, development al delay, morbid obesity, VT, LV thrombus, HTN, and CKD (baseline Cr ~1.5) who returned to [facility] for shortness of breath. 24 Hr Events: - none Assessment: - sedation: on relatively low dose proprofol at 20mcg/kg/min. Likely toxic metabolic enceph alopathy contributing in setting of BUN ~120. - CAD s/p CABG - Late cardiac tamponade from external thrombus s/p bedside sternotomy, open chest - cardiogenic shock: stable on low dose epi - LV thrombus: pause heparin infusion before going to OR - vasoplegic shock - vent dependent respiratory failure: stable on low settings on vent - non-oliguric renal failure: nephrology has comfirmed ATN from tamponade. Significantly po st-ATN diuresis. Cr, BUN, and K coming down. - ischemic hepatitis: 2/2 to low flow from tamponade. AST peaked at 14,000 and transaminase s cont to rapidly trend down Plan: - cont epi at 0.03 (and as tolerates through afternoon and evening) - to OR today for chest washout and possibly closure - cont vancomycin and pip-tazo prophylaxis with open chest - heparin gtt off in setting of chest closure today - I/O: do not allow to become significantly more negative than 1-1.5L I have spent 35 minutes in the care and management of this patient who is critically ill. Elmira Salguero MD Health Care Facilities Inspectornuclear fuel processing technician Pulmonary and Critical Care Medicine [facility] DEPARTMENT: [facility]- [id number] Place of Service: [facility] Date of Service: 12/08/2012 CSN: [id number] Modifiers:GC Resident Involved: yes Suggested CPT: 07643 Critical Care, Initial 30-74 minutes Veronika Bolaños MD - 6:04 AM PDT [facility] DAILY PROGRESS NOTE (fellow) Team Pager: [phone] Attendin Author: Veronika Palacios MD Date:12/08/2012 Attending Insurance Compliance Analyst: Operating Surgeon: MD Narendra Snyder MD POD #9 3v CABG (11/29/12), POD#4 sternotomy (12/04/12) HPI: Josef Ramos is a 67 y.o. male with a h/o severe CAD with LV thrombus, developmental zander y, morbid obesity, HTN and CKD who is transferred to ICU for shortness of breath. He is s/p 3v CABG and sternotomy to remove thrombus and relieve cardiac tamponade. Hospital Course: 10/02/12 - VT arrest s/p amiodarone, defibrillation, conversion to afib - TTE: decreased LV systolic fx with LV thrombus - cardiac cath: severe 3v CAD 11/29/12 - LV thrombus revascularization - transfer to floor 12/04/12 - transfer to ICU due to hemodynamic collapse - continue to decompensate - intubation with CMAC; propofol 120, vijay 160 - US-guided R IJ triple lumen, L radial A line - severe persistent hypotension despite bolus of epi, NE, vasopressin - ABG: metabolic acidosis with AG, lactate 20 - NaHCO3, CaCl -> BP improve - Bedside echo: limited quality, poor LV fx and hypokinesis - Conversion to SVT, shock x1, CPR x1, VT - Bedside sternotomy - CT surgery: evacuation of clot; hemodynamically stable 24 Hour Events: Made NPO for OR Heparin increased to 1500 Increased total ins to 200 cc/hr Assessment and Plan: NEURO Post-operative nociceptive pain Toxic metabolic encephalopathy Propofol Fentanyl prn Will require head CT once chest closed if not progressing neurologically CV CAD, s/p CABG x 3 Chronic Diastolic Left Ventricular Failure Cardiogenic shock H/o late cardiac tamponade from external thrombus S/p sternotomy with open chest wound Chest fluid accumulation Afib with RVR - resolved Keep epi at .03 today until chest closed Wean pressors Goal MAP >65, goal SBP <110 Goal CI >2.2 Fluid accumulation does not appear to be causing tamponade. Definitely decreased Avoiding amio 2/2 increased in LFTs Chest closure today PA catheter and DC picco A-line after picco DC'd PULMO Pulmonary insufficiency secondary to illness Volume control Keep intubated while chest is open RENAL/ ELECTROLYTES Acute kidney injury/Acute renal failure 2/2 hypoperfusion ATN diuresis Hypervolemia Hypernatremia DC mIVF Leslie catheter I/O goal even to -1500 Fluid bolus as needed to achieve goal q12 hr renal panel Free water flushes 200 q 8 to start after OR GI Ischemic hepatitis GI prophylaxis Omeprazole Resume TF after OR Daily LFTs - improving Avoid hepatotoxic agent HEM/COAG LV thrombus Acute postoperative blood loss anemia Acute postoperative thrombocytopenia DVT prophylaxis SCDs Check CBC daily Heparin gtt 1500 Heparin goal .3-.5 ATIII goal > 0.5 Hold heparin when patient is on his way down to OR ID Leukocytosis, reactive - decreasing Risk of infection with open chest Vancomycin dosing by levels Vanco trough Zosyn Culture pericardial fluid in OR ENDO Hyperglycemia, stress-induced Insulin gtt OTHER Morbid obesity, Body mass index is 45.66 kg/(m^2). CODE STATUS : FULL Update family Infusions: Prop Epi .03 norepi .02 insulin Physical Exam: Neuro: non-verbal and sedated and intubated CN: not examined Sedation Score: RON 0: Unresponsive, no response to noxious stimuli Chest: clear and equal bilaterally Incision: open, serous fluid underneath ioban but less than yesterday Cardiac: Rhythm: NSR RRR, sinus and normal S1 and S2 Abdomen: soft and obese Extremities: not examined Skin: extremities wwp Tubes/Lines (insertion date): Central line: R IJ triple lumen (12/04/12) Leslie catheter (12/04/12) Shabnam drain (12/04/12) Feeding tube (12/04/12) ETT (12/04/12) OG tube (12/04/12) R femoral PICCO Feeding: NPO Analgesia: fentanyl prn Sedation: propofol Thromboprophylaxis: SCDs, heparin gtt Head of Bed: Head of Bed >30 degrees Ulcer Prophylaxis:Omeprazole Glycemic control: insulin sliding scale Veronika Palacios MD Mack Malagon MD - 12/07/2012 8:30 PM PDTFormatting of this note might be different from the mónica gishobha. [facility] DEPARTMENT: [facility]- [id number] Place of Service: Date of Service: 12/07/2012 CSN: [id number] Modifiers:GC Resident Involved: yes Suggested CPT: 19488 Critical Care, Initial 30-74 minutes 33 minutes total time spent in Critical care independent of procedures. My impression, recent events and assesment are at the top of this note. Today's data which were reviewed are listed below the A&P I saw and examined JOSEF RAMOS with the [facility] housestaff. I agree with the written assess ment and plan. 24 hour course summary and observations Still unresponsive on vent Declining pressor needs Brisk autodiuresis k is down from yesterday High residuals with TF Stable on heparin Plan for OR tomorrow for washout Assessment and Plan Post tamponade with open chest Cardiogenic and vasodilatory shock Leukocytosis Fluid overload Kourteny, non-oliguric Encephalopathy Cad post cabg Phos binders Try to keep no more than a liter negative per day Continue abx Intake/Output Summary (Last 24 hours) at 12/07/122029 Last data filed at 12/07/121999 Gross per 24 hour Intake 4940.01 ml Output 7588 ml Net -2647.99 ml Lab Results Lab Test Name Results Date/Time PH 7.43 12/07/12 PH 7.24 12/04/12 PCO2 40 12/07/12 PCO2 39 12/04/12 PO2 110 12/07/12 PO2 210 12/04/12 HCO3 26 12/07/12 HCO3 16.5 12/04/12 FIO2 0.45 12/07/12 FIO2 100.0 12/04/12 Chemistries: Last 72 Hours (or 3 results): Recent Labs Basename 12/07/12 1609 12/07/12 0821 12/07/12 0426 12/07/12 0102 12/06/12 2320 12/06/12 202 7 12/06/12 1354 NA 146* 145 -- -- 144 -- -- K 4.5 4.6 4.7 -- -- -- -- CL 104 105 -- -- 103 -- -- BICARB 26 27 -- -- 27 -- -- BUN 118* 111* -- -- 108* -- -- CR 6.44* 6.40* -- -- 6.30* -- -- CA 7.9* 7.7* -- -- 7.7* -- -- MG 3.0* -- -- 2.9* -- 3.0* -- PO4 9.6* 8.6* -- -- -- -- 8.4* CBC with diff last 72 hours (or 3 results) Recent Labs Basename 12/07/12 0202 12/06/12202612/06/12 0854 12/06/128 12/05/12 2124 WBC 19.5* 17.4* 15.3* -- -- HB 8.5* 8.8* 8.7* -- -- HCT 24.9* 26.0* 25.7* -- -- PLT 214 201 178 -- -- NEUTROPERC -- 75* -- 68 80* BANDPCT -- 4 -- 6 6 LYMPHPERC -- 13* -- 12* 5* MONOPERC -- 3 -- 8 5 BASOPERC -- 0 -- 1 0 EOSPERC -- 2 -- 3 0* BLOOD CULTURE [facility] (no units) Date Value 11/30/2012 Final Report:No Bacteria or Yeast isolated at 5 days. CULTURE RESULT (no units) Date Value 11/30/2012 C Urine Source: Urine Final CULTURE RESULT: No growth (<1000 col/ml) after 24 hours CHEST, 1 VIEW (no units) Date Value Range Status 12/01/2012 Final Value: EXAM: AP Chest COMPARISON: 11/30/12. INDICATION: Follow-up cardiac surgery FINDINGS: Cardiac silhouette is enlarged. Sternotomy wires are intact and well aligned. Bilateral pleural effusions and left lower lobe atelectasis is noted. There is no pneumothorax. IMPRESSION: Cardiomegaly with moderate left lower lobe atelectasis and minimal edema. Attending Radiologists: TINY GARCIA MD Author: TINY GARCIA MD I have personally viewed this procedure/exam, reviewed this report, and made changes to it where appropriate. Final/Electronically signed / TINY GARCIA 12/01/2012 13:30 PM CHEST, 2 VIEWS OR STEREO (no units) Date Value Range Status 11/26/2012 Final Value: EXAM:PA and lateral CHEST HISTORY:Preoperative evaluation. Coronary artery disease. COMPARISON:09/29/12 FINDINGS:Mild cardiomegaly as before. There is no pulmonary edema. There is no evidence for pneumonia. No pleural effusion is evident. No acute osseous abnormality is evident. IMPRESSION: Mild cardiomegaly, otherwise negative. Attending Radiologists: GURPREET CONLEY MD Author: GURPREET CONLEY MD I have personally viewed this procedure/exam, reviewed this report, and made changes to it where appropriate. Final/Electronically signed / GURPREET CONLEY 11/27/2012 8:07 AM X-RAY PORTABLE CHEST 1 VIEW (no units) Date Value Range Status 12/07/2012 Final Value: STUDY: DC CHEST 1 VIEW 12/07/12 06:14:00 CLINICAL DATA: Status post CABG. Status post sternotomy wire removal COMPARISON: Yesterday FINDINGS: A solitary wire fragment remains in place. The remaining support equipment is unchanged. The cardiac silhouette is stable. Dense retrocardiac atelectasis with small left pleural effusion persists. Scattered right lung atelectasis are slightly improving. There is no pneumothorax. IMPRESSION: Stable dense retrocardiac atelectasis. Slightly improving scattered right lung atelectasis. Attending Radiologists: SHAY FABIAN MD Author: SHAY FABIAN MD I have personally viewed this procedure/exam, reviewed this report, and made changes to it where appropriate. Final/Electronically signed / SHAY FABIAN 12/07/2012 10:08 AM Veronika Bolaños MD - 9:00 AM PDT [facility] DAILY PROGRESS NOTE (fellow) Team Pager: [phone] Attendin Author: Veronika Palacios MD Date:12/07/2012 Attending Insurance Compliance Analyst: Operating Surgeon: MD Narendra Snyder MD POD #8 3v CABG (11/29/12), POD#3 sternotomy (12/04/12) HPI: Josef Ramos is a 67 y.o. male with a h/o severe CAD with LV thrombus, developmental zander y, morbid obesity, HTN and CKD who is transferred to ICU for shortness of breath. He is s/p 3v CABG and sternotomy to remove thrombus and relieve cardiac tamponade. Hospital Course: 10/02/12 - VT arrest s/p amiodarone, defibrillation, conversion to afib - TTE: decreased LV systolic fx with LV thrombus - cardiac cath: severe 3v CAD 11/29/12 - LV thrombus revascularization - transfer to floor 12/04/12 - transfer to ICU due to hemodynamic collapse - continue to decompensate - intubation with CMAC; propofol 120, vijay 160 - US-guided R IJ triple lumen, L radial A line - severe persistent hypotension despite bolus of epi, NE, vasopressin - ABG: metabolic acidosis with AG, lactate 20 - NaHCO3, CaCl -> BP improve - Bedside echo: limited quality, poor LV fx and hypokinesis - Conversion to SVT, shock x1, CPR x1, VT - Bedside sternotomy - CT surgery: evacuation of clot; hemodynamically stable 24 Hour Events: Upward trend of potassium. Received kayexalate, lasix, and albuterol Hypotension to sbps 70s with manipulation of ETT 1500 crystalloid overnight AT3 2990 units this am Heparin gtt increased to 950 this am Assessment and Plan: NEURO Post-operative nociceptive pain Toxic metabolic encephalopathy Propofol Fentanyl prn Will require head CT once chest closed CV CAD, s/p CABG x 3 Chronic Diastolic Left Ventricular Failure Cardiogenic shock H/o late cardiac tamponade from external thrombus S/p sternotomy with open chest wound Chest fluid accumulation Afib with RVR - resolved Keep epi at .03 today. Wean if possible later Wean pressors Goal MAP >65, goal SBP <110 Goal CI >2.2 Continue chest tube suction Fluid accumulation does not appear to be causing tamponade. Will monitor at this point Avoiding amio 2/2 increased in LFTs Tentative plan to close chest tomorrow PULMO Pulmonary insufficiency secondary to illness Volume control Keep intubated while chest is open RENAL/ ELECTROLYTES Acute kidney injury/Acute renal failure 2/2 hypoperfusion Hypovolemia mIVF to keep total ins 150 cc/hr Leslie catheter I/O goal even to -1000 Stop KCl Renal panel this am Consult nephrology Urine cr and na Urine microscopy GI Ischemic hepatitis GI prophylaxis Omeprazole TF renal @ 10. No plans to increase it today Daily LFT Avoid hepatotoxic agent HEM/COAG LV thrombus Acute postoperative blood loss anemia Acute postoperative thrombocytopenia DVT prophylaxis SCDs Check CBC daily Heparin gtt 950 Heparin goal .3-.5 AT3 0.36. AT3 2990 units given for goal AT3 >0.5 ID Leukocytosis, reactive Risk of infection with open chest Vancomycin dosing by levels Vanco trough Zosyn ENDO Hyperglycemia, stress-induced Insulin gtt OTHER Morbid obesity, Body mass index is 45.66 kg/(m^2). CODE STATUS : FULL Keep PICCO. Will DC once pt gets his chest closed and new PA catheter placed Infusions: Prop Epi .03 norepi .02 Vaso 2 insulin Physical Exam: Neuro: non-verbal and sedated and intubated CN: not examined Sedation Score: RON 0: Unresponsive, no response to noxious stimuli Chest: clear and equal bilaterally Incision: open, serous fluid underneath ioban but less than yesterday Cardiac: Rhythm: NSR RRR, sinus and normal S1 and S2 Abdomen: soft and obese Extremities: not examined Skin: extremities wwp Tubes/Lines (insertion date): Central line: R IJ triple lumen (12/04/12) Leslie catheter (12/04/12) Shabnam drain (12/04/12) Feeding tube (12/04/12) ETT (12/04/12) OG tube (12/04/12) R femoral PICCO Feeding: trophic Analgesia: fentanyl prn Sedation: propofol Thromboprophylaxis: SCDs, heparin gtt Head of Bed: Head of Bed >30 degrees Ulcer Prophylaxis:Omeprazole Glycemic control: insulin sliding scale Veronika Palacios MD Elmira Rutherford MD - 12/07/2012 7:45 AM PDTFormatting of this note might be different from the or iginal. [facility] ATTENDING PROFESSIONAL [employer] DAILY PROGRESS NOTE Team Pager: [phone] Attending Pager: [phone] Author: ELMIRA SALGUERO MD ATTESTATION: I saw and evaluated the patient at the bedside together with Dr. Palacios. Please see their note for a detailed rounding summary. I reviewed the documented findings, relevant data, and recent imaging available. I agree with the assessment and plan as described in t he resident's note with the following exceptions/additions as noted below. HPI: 67 yo man with hx of CAD s/p 3V CABG (DE LA ROSA --> LAD, SVG --> OM, PDA) on 11/29/12, development al delay, morbid obesity, VT, LV thrombus, HTN, and CKD (baseline Cr ~1.5) who returned to [facility] for short[facility] of breath. 24 Hr Events: - elevated K o/n, improved somewhat with furosemide Assessment: - sedation: on relatively low dose proprofol at 20mcg/kg/min. Likely - CAD s/p CABG - Late cardiac tamponade from external thrombus - cardiogenic shock - LV thrombus: cont slow heparin up-titration and replace ATIII as needed - vasoplegic shock - hypoxic respiratory failure s/p intubation - lactic acidosis: resolved - non-oliguric renal failure: nephrology has comfirmed ATN from tamponade. Significantly po st-ATN diuresis. Cr continuing to rise and K in high 4s, but maintaining. BUN continuing to climb. - ischemic hepatitis: 2/2 to low flow from tamponade. AST peaked at 14,000 and transaminase s cont to rapidly trend down Plan: - cont epi at 0.03 (and as tolerates through afternoon and evening) - chest washout tomorrow -- closure if stable. - cont vancomycin and pip-tazo prophylaxis with open chest - renal consult and recs ([facility]) -- watch for dialysis needs - cont heparin infusion, titrate to heparin levels 0.3 -- 0.5, ATIII >0.5 - trophic tube feeds - I/O: do not allow to become significantly more negative than 1L I have spent 35 minutes in the care and management of this patient (not including procedure s), who is critically ill. Elmira Salguero MD Health Care Facilities Inspectornuclear fuel processing technician Pulmonary and Critical Care Medicine [facility] DEPARTMENT: [facility]- [id number] Place of Service: - Date of Service: 12/07/2012 CSN: [id number] Modifiers:GC Resident Involved: yes Suggested CPT: 08381 Critical Care, Initial 30-74 minutes Mack Malagon MD - 11/24 10:17 PM PDT [facility] DEPARTMENT: [facility], [facility]- [id number] Place of Service: - Date of Service: 12/06/2012 CSN: [id number] Modifiers:ADRIAN Resident Involved: yes Suggested CPT: 16951 Critical Care, Initial 30-74 minutes 43 minutes total time spent in Critical care independent of procedures. My impression, recent events and assesment are at the top of this note. Today's data which were reviewed are listed below the A&P I saw and examined JOSEF RAMOS with the [facility] housestaff. I agree with the written assess ment and plan. 24 hour course summary and observations Remains intubated on pressors and inotropes Day team was unable to wean as he dropped his cardiac performance and pressures Has maintained great UOP, but there is essentially no Cr clearance K rising ever so slightly Keeping him intentionally sedated with open chest Assessment and Plan Cardiogenic and probably septic shock Acute respiratory failure Hypovolemia Hyperkalemia Non-oliguric kourtney from ATN Resolving shock liver Encephalopathy on mental retardation Leukocytosis Try some albuterol. Give lasix to further impair k reabsoprtion Bolus with fluid to move him back toward 1 liter negative for the day Continue tf but change to a RENAL diet Lower vaso as I think its contributing to his relative bradycardia Intake/Output Summary (Last 24 hours) at 12/06/127 Last data filed at 12/06/12 2200 Gross per 24 hour Intake 5900.4 ml Output 7665 ml Net -1764.6 ml Lab Results Lab Test Name Results Date/Time PH 7.45 12/06/12 PH 7.24 12/04/12 PCO2 36 12/06/12 PCO2 39 12/04/12 PO2 82 12/06/12 PO2 210 12/04/12 HCO3 25 12/06/12 HCO3 16.5 12/04/12 FIO2 .45 12/06/12 FIO2 100.0 3/11/13 Chemistries: Last 72 Hours (or 3 results): Recent Labs Basename 12/06/12202612/06/12 1354 12/06/12 0814 12/06/1222712/05/12 0400 12/04/12 190 1 12/04/12 1631 NA 144 144 145 -- -- -- -- K 5.0 4.9 4.7 -- -- -- -- CL 103 103 105 -- -- -- -- BICARB 25 25 26 -- -- -- -- BUN 105* 99* 94* -- -- -- -- CR 6.24* 6.12* 5.78* -- -- -- -- CA 7.7* 7.7* 7.7* -- -- -- -- MG 3.0* -- -- 2.9* 2.8* -- -- PO4 -- 8.4* -- -- -- 8.5* 9.4* CBC with diff last 72 hours (or 3 results) Recent Labs Basename 12/06/12202612/06/12 0854 12/06/1222712/05/12 2124 WBC -- 15.3* 14.3* 14.0* HB 8.8* 8.7* 8.6* -- HCT 26.0* 25.7* 24.9* -- PLT 201 178 172 -- NEUTROPERC -- -- 68 80* BANDPCT -- -- 6 6 LYMPHPERC -- -- 12* 5* MONOPERC -- -- 8 5 BASOPERC -- -- 1 0 EOSPERC -- -- 3 0* BLOOD CULTURE [facility] (no units) Date Value 11/30/2012 Final Report:No Bacteria or Yeast isolated at 5 days. CULTURE RESULT (no units) Date Value 11/30/2012 C Urine Source: Urine Final CULTURE RESULT: No growth (<1000 col/ml) after 24 hours CHEST, 1 VIEW (no units) Date Value Range Status 12/01/2012 Final Value: EXAM: AP Chest COMPARISON: 11/30/12. INDICATION: Follow-up cardiac surgery FINDINGS: Cardiac silhouette is enlarged. Sternotomy wires are intact and well aligned. Bilateral pleural effusions and left lower lobe atelectasis is noted. There is no pneumothorax. IMPRESSION: Cardiomegaly with moderate left lower lobe atelectasis and minimal edema. Attending Radiologists: TINY GARCIA MD Author: TINY GARCIA MD I have personally viewed this procedure/exam, reviewed this report, and made changes to it where appropriate. Final/Electronically signed / TINY GARCIA 12/01/2012 13:30 PM CHEST, 2 VIEWS OR STEREO (no units) Date Value Range Status 11/26/2012 Final Value: EXAM:PA and lateral CHEST HISTORY:Preoperative evaluation. Coronary artery disease. COMPARISON:09/29/12 FINDINGS:Mild cardiomegaly as before. There is no pulmonary edema. There is no evidence for pneumonia. No pleural effusion is evident. No acute osseous abnormality is evident. IMPRESSION: Mild cardiomegaly, otherwise negative. Attending Radiologists: GURPREET CONLEY MD Author: GURPREET CONLEY MD I have personally viewed this procedure/exam, reviewed this report, and made changes to it where appropriate. Final/Electronically signed / GURPREET CONLEY 11/27/2012 8:07 AM X-RAY PORTABLE CHEST 1 VIEW (no units) Date Value Range Status 12/06/2012 Final Value: EXAM: AP CHEST. HISTORY:Status post CABG. Status post sternotomy wire removal. COMPARISON: Yesterday FINDINGS: Endotracheal tube, enteric tube, right jugular venous catheter remain in place. Dense left lower lobe opacification persists. There is minimal right basilar atelectasis. There is no pneumothorax. IMPRESSION: Persistent dense left lower lobe opacification most likely atelectasis although pneumonia is possible. Minimal right basilar atelectasis as before. Attending Radiologists: GURPREET CONLEY MD Author: GURPREET CONLEY MD I have personally viewed this procedure/exam, reviewed this report, and made changes to it where appropriate. Final/Electronically signed / GURPREET CONLEY 12/06/2012 10:41 AM Veronika Bolaños MD - 9:36 AM PDT [facility] DAILY PROGRESS NOTE (fellow) Team Pager: [phone] Attendin Author: Veronika Palacios MD Date:12/06/2012 Attending Insurance Compliance Analyst: Operating Surgeon: MD Narendra Snyder MD POD #7 3v CABG (11/29/12), POD#2 sternotomy (12/04/12) HPI: Josef Ramos is a 67 y.o. male with a h/o severe CAD with LV thrombus, developmental zander y, morbid obesity, HTN and CKD who is transferred to ICU for shortness of breath. He is s/p 3v CABG and sternotomy to remove thrombus and relieve cardiac tamponade. Hospital Course: 10/02/12 - VT arrest s/p amiodarone, defibrillation, conversion to afib - TTE: decreased LV systolic fx with LV thrombus - cardiac cath: severe 3v CAD 11/29/12 - LV thrombus revascularization - transfer to floor 12/04/12 - transfer to ICU due to hemodynamic collapse - continue to decompensate - intubation with CMAC; propofol 120, vijay 160 - US-guided R IJ triple lumen, L radial A line - severe persistent hypotension despite bolus of epi, NE, vasopressin - ABG: metabolic acidosis with AG, lactate 20 - NaHCO3, CaCl -> BP improve - Bedside echo: limited quality, poor LV fx and hypokinesis - Conversion to SVT, shock x1, CPR x1, VT - Bedside sternotomy - CT surgery: evacuation of clot; hemodynamically stable 24 Hour Events: Febrile last pm Zosyn restarted afib with rvr Around 2am, increased in pericardial fluid accumulation. Assessment and Plan: NEURO Post-operative nociceptive pain Propofol Fentanyl prn CV CAD, s/p CABG x 3 Chronic Diastolic Left Ventricular Failure Cardiogenic shock H/o late cardiac tamponade from external thrombus S/p sternotomy with open chest wound Chest fluid accumulation Afib with RVR Wean norepi off Add vasopressin to limit arrythmogenic drugs Epi .02. Wean as tolerated Goal MAP >65, goal SBP <110 Goal CI >2.2 Continue chest tube suction Plan to close chest wound on if progressing well Fluid accumulation does not appear to be causing tamponade. Will monitor at this point Avoiding amio 2/2 increased in LFTs PULMO Pulmonary insufficiency secondary to illness Volume control Keep intubated while chest is open RENAL/ ELECTROLYTES Acute kidney injury/Acute renal failure 2/2 hypoperfusion Hypervolemia Furosemide gtt to keep even Leslie catheter I/O goal even to -500 GI Ischemic hepatitis GI prophylaxis Supportive care Omeprazole TF (with glutamine) Daily LFT. Marked improvement from yesterday Avoid hepatotoxic agent Check INR/PTT HEM/COAG LV thrombus Acute postoperative blood loss anemia Acute postoperative thrombocytopenia DVT prophylaxis SCDs restart heparin 500U/hr Check CBC daily Heparin goal .3-.5 ID Leukocytosis, reactive Risk of infection with open chest Vancomycin dosing by levels Restart piperacillin-tazobactam ENDO Hyperglycemia, stress-induced Insulin gtt OTHER Morbid obesity, Body mass index is 45.66 kg/(m^2). CODE STATUS : FULL Keep PICCO Infusions: Prop 20 Epi .03 norepi .08 Physical Exam: Neuro: non-verbal and sedated and intubated CN: not examined Sedation Score: RON 0: Unresponsive, no response to noxious stimuli Chest: clear and equal bilaterally Incision: open, serous fluid underneath ioban Cardiac: Rhythm: NSR RRR, sinus and normal S1 and S2 Abdomen: soft and obese Extremities: not examined Skin: extremities wwp Tubes/Lines (insertion date): Central line: R IJ triple lumen (12/04/12) Leslie catheter (12/04/12) Shabnam drain (12/04/12) Feeding tube (12/04/12) ETT (12/04/12) OG tube (12/04/12) P line: L antecubital, R hand (12/04/12) A line: L radial (12/04/12) Feeding: trophic Analgesia: fentanyl prn Sedation: propofol Thromboprophylaxis: SCDs, heparin gtt Head of Bed: Head of Bed >30 degrees Ulcer Prophylaxis:Omeprazole Glycemic control: insulin sliding scale Veronika Palacios MD Elmira Rutherford MD - 12/06/2012 7:56 AM PDTFormatting of this note might be different from the or iginal. [facility] ATTENDING PROFESSIONAL [employer] DAILY PROGRESS NOTE Team Pager: [phone] Attending Pager: [phone] Author: ELMIRA SALGUERO MD ATTESTATION: I saw and evaluated the patient at the bedside together with Dr. Palacios. Please see their note for a detailed rounding summary. I reviewed the documented findings, relevant data, and recent imaging available. I agree with the assessment and plan as described in [facility] resident's note with the following exceptions/additions as noted below. HPI: 67 yo man with hx of CAD s/p 3V CABG (DE LA ROSA --> LAD, SVG --> OM, PDA) on 11/29/12, development al delay, morbid obesity, VT, LV thrombus, HTN, and CKD (baseline Cr ~1.5) who returned to [facility] for [facility]. 24 Hr Events: - AF with RVR - increased serous drainage from chest wound - heparin infusion stopped - converted back to NSR spont Assessment: - CAD s/p CABG - Late cardiac tamponade from external thrombus - cardiogenic shock - LV thrombus: will restart heparin at low dose now - vasoplegic shock - hypoxic respiratory failure s/p intubation - lactic acidosis: resolving slowly in setting of ischemic hepatitis - non-oliguric renal failure: likely suffered ATN from very low flow state. Cr continuing t o rise and K up to 4.9 despite excellent urine output. - ischemic hepatitis: 2/2 to low flow from tamponade. AST peaked at 14,000 and transaminase s cont to rapidly trend down Plan: - cont epi at 0.03 (and as tolerates through afternoon and evening) - planning for chest closure when pt has demonstrated significant stability, tentatively Fr iday. - cont vancomycin and pip-tazo rophylaxis with open chest - restart low dose heparin infusion - trophic tube feeds - I/O even I have spent 35 minutes in the care and management of this patient (not including procedure s), who is critically ill. Elmira Salguero MD Health Care Facilities Inspectornuclear fuel processing technician Pulmonary and Critical Care Medicine [facility] DEPARTMENT: [facility]- [id number] Place of Service: IP Date of Service: 12/06/2012 CSN: [id number] Modifiers:GC Resident Involved: yes Suggested CPT: 02542 Critical Care, Initial 30-74 minutes Mack Malagon MD - 11/24 8:36 PM PDT EPIC DEPARTMENT: [facility]- [id number] Place of Service: - Date of Service: 12/05/2012 CSN: [id number] Modifiers:GC Resident Involved: yes Suggested CPT: 19484 Critical Care, Initial 30-74 minutes 32 minutes total time spent in Critical care independent of procedures. My impression, recent events and assesment are at the top of this note. Today's data which were reviewed are listed below the A&P I saw and examined JOSEF RAMOS with the [facility] housestaff. I agree with the written assess ment and plan. 24 hour course summary and observations Improved from yesterday though continues to require moderate doses of inotropes and pressor s His liver is improving Troponin continues to rise but had an arrest, shock and has a cr clearance close to zero Intubated, mildly sedated. Is starting to move all 4 but not responsive to questions or sti muli No further bleeding By PiCCO has great cardiac performance, still profoundly vasodilated Febrile with elevated WBC, there are a lot of reasons for fever, but I think it prudent to continue his antibiotic coverage Assessment and Plan Cardiogenic and vasodilatory shock Fluid overload Acute respiratory failure hyerpglycemia on insulin Open chest lv thrombus - restarting anticoag Cad post cabg - start back asa Possible sepsis - abx as above Intake/Output Summary (Last 24 hours) at 12/05/122035 Last data filed at 12/05/121999 Gross per 24 hour Intake 2239.46 ml Output 3540 ml Net -1300.54 ml Lab Results Lab Test Name Results Date/Time PH 7.52 12/05/12 PH 7.24 12/04/12 PCO2 30 12/05/12 PCO2 39 12/04/12 PO2 122 12/05/12 PO2 210 12/04/12 HCO3 25 12/05/12 HCO3 16.5 12/04/12 FIO2 55 12/05/12 FIO2 100.0 12/04/12 Chemistries: Last 72 Hours (or 3 results): Recent Labs Basename 12/05/12 1606 12/05/12 1022 12/05/12 0400 12/04/12 1901 12/04/12 1631 12/04/12 153 7 NA 146* 145 145 -- -- -- K 4.8 4.7 4.6 -- -- -- CL 106 105 104 -- -- -- BICARB 24 23 23 -- -- -- BUN 84* 76* 67* -- -- -- CR 5.01* 4.52* 4.06* -- -- -- CA 7.9* 8.2* 8.5* -- -- -- MG -- -- 2.8* 3.3* -- 3.2* PO4 -- -- -- 8.5* 9.4* 8.7* CBC with diff last 72 hours (or 3 results) Recent Labs Basename 12/05/12 0400 12/04/12 1901 12/04/12 1631 WBC 14.4* 13.7* 20.8* HB 8.4* 8.6* 8.0* HCT 24.2* 25.7* 23.9* PLT 126* 124* 165 NEUTROPERC -- -- -- BANDPCT -- -- -- LYMPHPERC -- -- -- MONOPERC -- -- -- BASOPERC -- -- -- EOSPERC -- -- -- BLOOD CULTURE [facility] (no units) Date Value 11/30/2012 No growth to date. CULTURE RESULT (no units) Date Value 11/30/2012 C Urine Source: Urine Final CULTURE RESULT: No growth (<1000 col/ml) after 24 hours CHEST, 1 VIEW (no units) Date Value Range Status 12/01/2012 Final Value: EXAM: AP Chest COMPARISON: 11/30/12. INDICATION: Follow-up cardiac surgery FINDINGS: Cardiac silhouette is enlarged. Sternotomy wires are intact and well aligned. Bilateral pleural effusions and left lower lobe atelectasis is noted. There is no pneumothorax. IMPRESSION: Cardiomegaly with moderate left lower lobe atelectasis and minimal edema. Attending Radiologists: TINY GARCIA MD Author: TINY GARCIA MD I have personally viewed this procedure/exam, reviewed this report, and made changes to it where appropriate. Final/Electronically signed / TINY GARCIA 12/01/2012 13:30 PM CHEST, 2 VIEWS OR STEREO (no units) Date Value Range Status 11/26/2012 Final Value: EXAM:PA and lateral CHEST HISTORY:Preoperative evaluation. Coronary artery disease. COMPARISON:09/29/12 FINDINGS:Mild cardiomegaly as before. There is no pulmonary edema. There is no evidence for pneumonia. No pleural effusion is evident. No acute osseous abnormality is evident. IMPRESSION: Mild cardiomegaly, otherwise negative. Attending Radiologists: GURPREET CONLEY MD Author: GURPREET CONLEY MD I have personally viewed this procedure/exam, reviewed this report, and made changes to it where appropriate. Final/Electronically signed / GURPREET CONLEY 11/27/2012 8:07 AM X-RAY PORTABLE CHEST 1 VIEW (no units) Date Value Range Status 12/05/2012 Final Value: STUDY: DC CHEST 1 VIEW 12/05/12 07:56:00 INDICATION: Sternotomy wire removal COMPARISON: Yesterday FINDINGS: ET tube, enteric tube, and right IJ are unchanged. Sternotomy wires have been removed with new left chest tube. There is no pneumothorax. Lung volumes are diminished. There is persistent left greater than right lower lobe atelectasis. There is no consolidation or pulmonary edema. Osseous structures are unchanged. IMPRESSION: Removal of sternotomy wires with placement of left-sided chest tube and pneumothorax. Stable bibasilar atelectasis. Attending Radiologists: TINY GARCIA MD Author: HEIDI PALMER MD I have personally viewed this procedure/exam, reviewed this report, and made changes to it where appropriate. Final/Electronically signed / TINY GARCIA 12/05/2012 11:36 AM Veronika Bolaños MD - 08/2013 2:04 PM PDT [facility] DAILY PROGRESS NOTE (fellow) Team Pager: [phone] Attendin Author: Veronika Palacios MD Date:12/05/2012 Attending Insurance Compliance Analyst: Operating Surgeon: MD Narendra Snyder MD POD #6 3v CABG (11/29/12), POD#1 sternotomy (12/04/12) ICU Day #2 HPI: Josef Ramos is a 67 y.o. male with a h/o severe CAD with LV thrombus, developmental zander y, morbid obesity, HTN and CKD who is transferred to ICU for shortness of breath. He is s/p 3v CABG and sternotomy to remove thrombus and relieve cardiac tamponade. Hospital Course: 10/02/12 - VT arrest s/p amiodarone, defibrillation, conversion to afib - TTE: decreased LV systolic fx with LV thrombus - cardiac cath: severe 3v CAD 11/29/12 - LV thrombus revascularization - transfer to floor 12/04/12 - transfer to ICU due to hemodynamic collapse - continue to decompensate - intubation with CMAC; propofol 120, vijay 160 - US-guided R IJ triple lumen, L radial A line - severe persistent hypotension despite bolus of epi, NE, vasopressin - ABG: metabolic acidosis with AG, lactate 20 - NaHCO3, CaCl -> BP improve - Bedside echo: limited quality, poor LV fx and hypokinesis - Conversion to SVT, shock x1, CPR x1, VT - Bedside sternotomy - CT surgery: evacuation of clot; hemodynamically stable 24 Hour Events: Off of milrinone Decreased epi Assessment and Plan: NEURO Post-operative nociceptive pain Propofol Fentanyl prn CV CAD, s/p CABG x 3 Chronic Diastolic Left Ventricular Failure Cardiogenic shock H/o late cardiac tamponade from external thrombus S/p sternotomy with open chest wound Wean norepi off Decrease epi to 0.04 mcg/kg/min Goal MAP >65, goal SBP <110 Goal CI >2.2 D/c vasopressin D/c iloprost Continue chest tube suction Plan to close chest wound on if progressing well Appreciate CT surg recs PULMO Pulmonary insufficiency secondary to illness Volume control Keep intubated while chest is open RENAL/ ELECTROLYTES Acute kidney injury/Acute renal failure 2/2 hypoperfusion Hypervolemia Acute metabolic acidosis Decrease furosemide to 10 mg/hr Leslie catheter I/O goal even to -500 Renal panel at 1400 GI Ischemic hepatitis GI prophylaxis Supportive care Omeprazole TF (with glutamine) tomorrow Daily LFT Avoid nephrotoxic agent Check INR/PTT HEM/COAG LV thrombus Acute postoperative blood loss anemia Acute postoperative thrombocytopenia DVT prophylaxis SCDs Start heparin 500U/hr @ 18:00 Check CBC ID Leukocytosis, reactive Risk of infection with open chest Vancomycin dosing by levels D/c piperacillin-tazobactam ENDO Hyperglycemia, stress-induced Insulin gtt OTHER Morbid obesity, Body mass index is 45.41 kg/(m^2). CODE STATUS : FULL D/c NaHCO3 D/c radial a-line Keep PICCO Infusions: Epinephrine 0.04 mcg/kg/min Norepinephrine 0.02 mcg/kg/min Propofol 20 mcg/kg/min Furosemide 10 mg/hr Physical Exam: Neuro: non-verbal and sedated and intubated CN: not examined Sedation Score: RON 0: Unresponsive, no response to noxious stimuli Chest: clear and equal bilaterally Incision: open, no drainage Cardiac: Rhythm: NSR RRR, sinus and normal S1 and S2 Abdomen: soft and obese Extremities: not examined Skin: extremities wwp Tubes/Lines (insertion date): Central line: R IJ triple lumen (12/04/12) Leslie catheter (12/04/12) Shabnam drain (12/04/12) Feeding tube (12/04/12) ETT (12/04/12) OG tube (12/04/12) P line: L antecubital, R hand (12/04/12) A line: L radial (12/04/12) Feeding: NPO Analgesia: fentanyl prn Sedation: propofol Thromboprophylaxis: SCDs, heparin gtt tonight Head of Bed: Head of Bed >30 degrees Ulcer Prophylaxis:Omeprazole Glycemic control: insulin sliding scale ---- Veronika Palacios MD aElmira roman MD - 12/05/2012 7:44 AM PDTFormatting of this note might be different from the or iginal. [facility] ATTENDING PROFESSIONAL [employer]DS[employer] DAILY PROGRESS NOTE Team Pager: [phone] Attending Pager: [phone] Author: ELMIRA SALGUERO MD ATTESTATION: I saw and evaluated the patient at the bedside together with Dr. Alvarado. aLine loja see their note for a detailed rounding summary. I reviewed the documented findings, releva nt data, and recent imaging available. I agree with the assessment and plan as described in the resident's note with the following exceptions/additions as noted below. HPI: 67 yo man with hx of CAD s/p 3V CABG (DE LA ROSA --> LAD, SVG --> OM, PDA) on 11/29/12, development al delay, morbid obesity, VT, LV thrombus, HTN, and CKD (baseline Cr ~1.5) who returned to [facility]. Assessment: - CAD s/p CABG - Late cardiac tamponade from external thrombus: on significantly lower vasopressor require ments after bedside sternotomy and thrombus removal - cardiogenic shock - LV thrombus: will restart heparin at low dose tonight - vasoplegic shock - hypoxic respiratory failure s/p intubation: will hyperventilate on vent to compensate for lactic acidosis - lactic acidosis: resolving slowly in setting of ischemic hepatitis - non-oliguric renal failure: likely suffered ATN from very low flow state yesterday. - ischemic hepatitis: 2/2 to low flow from tamponade. AST peaked at 14,000 and transaminase s are now trending down. - hyperkalemia: resolved Plan: - decrease epi to 0.04 (and as tolerates through afternoon and evening) - d/c iloprost - planning for chest closure when pt has demonstrated significant stability, tentatively . - cont vancomycin dosing by levels for prophylaxis with open chest - restart low dose heparin infusion tonight - I/O: even to neg 500 I have spent 40 minutes in the care and management of this patient (not including procedure s), who is critically ill. Elmira Salguero MD Health Care Facilities Inspectornuclear fuel processing technician Pulmonary and Critical Care Medicine [facility] DEPARTMENT: [facility]- [id number] Place of Service: - Date of Service: 12/05/2012 CSN: [id number] Modifiers:GC Resident Involved: yes Suggested CPT: 06046 Critical Care, Initial 30-74 minutes Mack Malagon MD - 11/24 9:33 PM PDT [facility] DEPARTMENT: [facility]- [id number] Place of Service: IP Date of Service: 12/04/2012 CSN: [id number] Modifiers:GC Resident Involved: yes Suggested CPT: 42758 Critical Care, Each additional 30 minutes x 4 93 minutes total time spent in Critical care independent of procedures. My impression, recent events and assesment are at the top of this note. Today's data which were reviewed are listed below the A&P I saw and examined JOSEF RAMOS with the [facility] housestaff. I agree with the written assess ment and plan. 24 hour course summary and observations Care assumed from Dr. Salguero Patient with Cabg last week, transferred back to ICU today with acute hypoxemia, cold extre mities Developed acute tamponade and near cardiac arrest due to large old clot overlying RV. I was present for the sternal reopening and critical care/stabilization thereafter Post removal of clots, he has improved We have weaned catecholamines to more normal doses Placed a PICCO which reveals adequate cardiac performance on these agents He is anuric, attempting to stimulate some urine flow with lasix He has congested v shock liver Acquired coagulopathy DVT scan is negative Have elected not to cool as there was no arrest Assessment and Plan Cardiogenic shock Tamponade Acute respiratory failure Post cabg Anuric renal failure Shock liver Coagulopathy Acute lactic acidosis Support to CI over 2.5, try to get some fluid off Maintain sedated on vent with open sternum Correct coags as able Suspect lactate is from first shock, now the high dose epi. Wonder about possible mitochondrial issues that can be associated with mental retardation a s contributing to lactate. Adding thiamine. Could consider agents such as phenylbutyrate Intake/Output Summary (Last 24 hours) at 12/04/123 Last data filed at 12/04/121999 Gross per 24 hour Intake 668.2 ml Output 280 ml Net 388.2 ml Lab Results Lab Test Name Results Date/Time PH 7.32 12/04/12 PH 7.24 12/04/12 PCO2 33 12/04/12 PCO2 39 12/04/12 PO2 234 12/04/12 PO2 210 12/04/12 HCO3 17 12/04/12 HCO3 16.5 12/04/12 FIO2 1.0 12/04/12 FIO2 100.0 12/04/12 Chemistries: Last 72 Hours (or 3 results): Recent Labs Basename 12/04/12 1901 12/04/12 1633 12/04/12 1631 12/04/12 1537 12/04/12 0837 NA 145|147* 145* 144|144 -- -- K 4.4|4.5 4.4 4.6|4.6 -- -- CL 104|105 -- 103|103 104 -- BICARB 16*|17* -- 15*|15* 15* -- BUN 59*|58* -- 58*|58* 54* -- CR 3.44*|3.46* -- 3.46*|3.46* 3.47* -- CA 8.9|9.1 -- 8.8|8.8 8.4* -- MG 3.3* -- -- 3.2* 2.6* PO4 8.5* -- 9.4* 8.7* -- CBC with diff last 72 hours (or 3 results) Recent Labs Basename 12/04/12 1901 12/04/12 1631 12/04/12 1539 WBC 13.7* 20.8* 16.5* HB 8.6* 8.0* 8.6* HCT 25.7* 23.9* 25.7* PLT 124* 165 168 NEUTROPERC -- -- -- BANDPCT -- -- -- LYMPHPERC -- -- -- MONOPERC -- -- -- BASOPERC -- -- -- EOSPERC -- -- -- BLOOD CULTURE [facility] (no units) Date Value 11/30/2012 No growth to date. CULTURE RESULT (no units) Date Value 11/30/2012 C Urine Source: Urine Final CULTURE RESULT: No growth (<1000 col/ml) after 24 hours CHEST, 1 VIEW (no units) Date Value Range Status 12/01/2012 Final Value: EXAM: AP Chest COMPARISON: 11/30/12. INDICATION: Follow-up cardiac surgery FINDINGS: Cardiac silhouette is enlarged. Sternotomy wires are intact and well aligned. Bilateral pleural effusions and left lower lobe atelectasis is noted. There is no pneumothorax. IMPRESSION: Cardiomegaly with moderate left lower lobe atelectasis and minimal edema. Attending Radiologists: TINY GARCIA MD Author: TINY GARCIA MD I have personally viewed this procedure/exam, reviewed this report, and made changes to it where appropriate. Final/Electronically signed / TINY GARCIA 12/01/2012 13:30 PM CHEST, 2 VIEWS OR STEREO (no units) Date Value Range Status 11/26/2012 Final Value: EXAM:PA and lateral CHEST HISTORY:Preoperative evaluation. Coronary artery disease. COMPARISON:09/29/12 FINDINGS:Mild cardiomegaly as before. There is no pulmonary edema. There is no evidence for pneumonia. No pleural effusion is evident. No acute osseous abnormality is evident. IMPRESSION: Mild cardiomegaly, otherwise negative. Attending Radiologists: GURPREET CONLEY MD Author: GURPREET CONLEY MD I have personally viewed this procedure/exam, reviewed this report, and made changes to it where appropriate. Final/Electronically signed / GURPREET CONLEY 11/27/2012 8:07 AM X-RAY PORTABLE CHEST 1 VIEW (no units) Date Value Range Status 12/04/2012 Final Value: STUDY: DC CHEST 1 VIEW 12/04/12 15:25:00 INDICATION: Left IJ placement. Status post CABG. COMPARISON: Same day FINDINGS: Right IJ with its tip in the upper SVC. There is no pneumothorax. Endotracheal tube is present with tip 8 cm from john. Cardiomediastinal silhouette is enlarged. Sternotomy wires are stable. Increased left lower lobe atelectasis and stable left pleural effusion. Osseous structures are unremarkable. IMPRESSION: New right IJ with tip in the upper SVC. New endotracheal tube. Stable cardiomegaly with increased left lower lobe atelectasis and small pleural effusion. Attending Radiologists: TINY GARCIA MD Author: HEIDI PALMER MD I have personally viewed this procedure/exam, reviewed this report, and made changes to it where appropriate. Final/Electronically signed / TIYN GARCIA 12/04/2012 16:37 PM ortemore Spencer - 11/24 5:41 PM PDTTransthoracic echocardiogram completed. Final report to follow. elen Gee MD - 12/04/2012 5:35 PM PDTBrief Op Note Pre: Post-op tamponade, VT Post: same Proced: Emergent bedside reopening sternotomy, evacuation hematoma, open chest Surg: Sean Asst: Gerard Anes: IV Sedation (Dr. Zambrano) Comp: None Drains: CT X Findings: Improved hemodynamics; we elected to keep his chest open Dispo: Critical Dictation # [id number] HELEN GEE MD Cardiothoracic Surgery Fellow Narendra Sosa MD - 12/04/2012 5:24 PM PDTCT Surgery Staff Patient with continued hem,odynamic deterioration and high CVP. Echo windows very difficult. Planning for MADHURI Patient with code dose Epi, required CPR with Rhythm change and we elected to open his ches t. Hemodynamic improvement following chest opening. Will plan for open chest for a period of time and then re-evaluation Family (Joanne Zhang) updated. Electronically signed Narendra Lunsford MD, FACS, FACC [employer], Department of Surgery Head, Adult Cardiac Surgery Co-Director, Multidisciplinary Heart Valve Clinic [facility] | [email or web address] Elmira Rutherford MD - 0 12/04/2012 3:16 PM PDT [facility] ATTENDING PROFESSIONAL BONDSMAN DAILY PROGRESS NOTE Team Pager: [phone] Attending Pager: [phone] Author: ELMIRA SALGUERO MD ATTESTATION: I saw and evaluated the patient at the bedside together with Dr. Alvarado. Laine loja see their note for a detailed rounding summary. I reviewed the documented findings, releva nt data, and recent imaging available. I agree with the assessment and plan as described in the resident's note with the following exceptions/additions as noted below. HPI: 67 yo man with hx of CAD s/p 3V CABG (DE LA ROSA --> LAD, SVG --> OM, PDA) on 11/29/12, development al delay, morbid obesity, VT, LV thrombus, HTN, and CKD (baseline Cr ~1.5) who returned to [facility] ICU from the [facility] for shortness of breath. 24 Hour Events: Acute hypoxia with desats to 50s despite high work of breathing Intubated Episodic hypotension to SBP in 50s Started on Epi and norepi infusions Triple lumen central line and art line placed Went into SVT with drop in pressure, so cardioverted Had VT, so 1 round of chest compressions started after defibrillation Had sternotomy at bedside given instability, with removal of compressive thrombus Assessment: - CAD s/p CABG - Late cardiac tamponade from external thrombus: on significantly lower vasopressor require ments after bedside sternotomy and thrombus removal - cardiogenic shock - LV thrombus - vasoplegic shock - hypoxic respiratory failure s/p intubation: will hyperventilate on vent to compensate for lactic acidosis - lactic acidosis: likely from tamponade and cardiogenic shock - anuric renal failure: Hopefully will see increased UOP with improved cardiac output. Also received furosemide 100mg IV. - hyperkalemia Plan: - consider PA cath - cont milrinone and epi infusions - planning for chest closure when pt has demonstrated significant stability - broad spectrum abx can likely be narrowed - hold heparin infusion in setting of open chest - follow K, treat medically as able - consider HD if UOP does not crop picker I have spent 120 minutes in the care and management of this patient (not including procedur es), who is critically ill. Elmira Salguero MD Health Care Facilities Inspectornuclear fuel processing technician Pulmonary and Critical Care Medicine [facility] DEPARTMENT: [facility], [facility]- [id number] Place of Service: - Date of Service: 12/04/2012 [facility]: [id number] Modifiers:GC Resident Involved: yes Suggested CPT: 16048 Critical Care, Each additional 30 minutes x 2 and 51779 Critical Care, Initial 30-74 minutes Joseph Cruz - 3 10:15 AM PDT Cardiothoracic Surgery Progress Note Procedure CABG POD # 4 Past 24 hour Events Haldol x 1 early this AM Subjective Feels SOB Objective: Last Vitals: BP 124/70 | Pulse 79 | Temp 36.5 C (97.7 F) | RR 30 | Ht 1.88 m (6' 2.02") | Wt 160.5 kg (353 lb 13.4 oz) | SpO2 98% | BMI 45.41 kg/(m^2) Intake/Output Summary (Last 24 hours) at 12/04/12 1015 Last data filed at 12/04/12 0815 Gross per 24 hour Intake 1453.37 ml Output 885 ml Net 568.37 ml Tele: Sinus Rhythm GA: Obese, middle-aged man, eyes closed, in respiratory distress HEENT: (+) purple lips, purple face Neuro drowsy, oriented to person, place, WILKS CV s1-s2 RRR Resp Tachypneic, labored breathing, CTA bilateral GI Obese, soft non-tender Skin Keys/warm/dry, sternal and leg incisions are c,d,i Chemistries: Last 72 Hours (or 3 results): Recent Labs Basename 12/04/12 0837 12/03/12 0401 12/02/12 0259 NA 139 140 139 K 5.1* 4.3 4.2 CL 105 106 103 BICARB 17* 27 26 BUN 45* 31* 29* CR 2.29* 1.90* 2.05* CA 8.5* 7.9* 7.9* MG 2.6* 2.4 2.1 PO4 4.8* 2.9 2.9 CBC with diff last 72 hours (or 3 results) Recent Labs Basename 12/04/12 0837 12/03/12 0401 12/02/12 0259 WBC 14.4* 7.6 12.3* HB 9.8* 8.4* 8.9* HCT 29.1* 25.2* 25.6* PLT -- 92* 72* NEUTROPERC -- -- -- BANDPCT -- -- -- LYMPHPERC -- -- -- MONOPERC -- -- -- BASOPERC -- -- -- EOSPERC -- -- -- Lab Results Component Value Date INRPT 1.67* 12/04/2012 Heparin level = 0.17 Chest x-ray: (pending) Assessment/Plan: 67 yo man POD 4 s/p CABG, cardiomyopathy, known LV thrombus in moderate resp distress Resp Failure-- Lab Results Component Value Date PH 7.49* 12/04/2012 PCO2 20* 12/04/2012 PO2 74 12/04/2012 HCO3 15* 12/04/2012 FIO2 ng 12/04/2012 Shows mixed respiratory acidosis/respiratory alkalosis. Unsure of etiology ? ASA toxicit y (only getting daily ASA 81 daily) ? PNA? ?CVA A X-ray is pending. S/p CABG-- hemodynamically stable and in NSR. Incisions unremarkable. CAD -- continue statin, ASA Cardiomyopathy-- continue low dose b-jessy, ASA Developmentally Delayed Chronic Renal Insufficiency-- follow daily BMP. Cr slightly up today. Continue bumex 0.5 mg IV daily LV Thrombus-- Continue warfarin, heparin bridge (increase to 1800 units/hr) Tx to ICU (Electronically Signed) Joseph Lewis PA-C [facility] Cardiac Surgery Gloria Christie MD - 3 3:25 PM PDT Cardiothoracic Surgery Progress Note Procedure: CABG x 3 POD # 3 Past 24 hour Events Transfer to [facility], on heparin gtt for LV thrombus Subjective: feels "terrible" no specific complaint". Very deconditioned Objective: Last Vitals: BP 127/61 | Pulse 76 | Temp 36.8 C (98.2 F) | RR 20 | Ht 1.88 m (6' 2.02") | Wt 160.5 kg (353 lb 13.4 oz) | SpO2 96% | BMI 45.41 kg/(m^2) 24 Hour Vital Min/Max: Systolic (24hrs), Av mmHg, Min:98 mmHg, Max:152 mmHg Diastolic (24hrs), Av mmHg, Min:48 mmHg, Max:87 mmHg Pulse Av.4 Min: 69 Max: 82 Temp Av.8 C (98.2 F) Min: 36.5 C (97.7 F) Max: 37.1 C (98.8 F) Resp Av.6 Min: 18 Max: 25 SpO2 Av.9 % Min: 93 % Max: 100 % Intake/Output Summary (Last 24 hours) at 12/03/12 1525 Last data filed at 12/03/12 1400 Gross per 24 hour Intake 1143 ml Output 1460 ml Net -317 ml Telemetery: NSR Neuro A&Ox3, grossly non focal exam CV RRR, no M/R/G Resp scattered rhonchi GI NTND, +BS Incisions Sternal incision cdi Chemistries: Last 72 Hours (or 3 results): Recent Labs Basename 12/03/12 0401 12/02/12 0259 12/01/12 1332 12/01/12 014 NA 140 139 -- 141 K 4.3 4.2 4.4 -- CL 106 103 -- 107 BICARB 27 26 -- 23 BUN 31* 29* -- 29* CR 1.90* 2.05* -- 1.98* CA 7.9* 7.9* -- 8.0* MG 2.4 2.1 -- 2.3 PO4 2.9 2.9 -- 4.1 CBC with diff last 72 hours (or 3 results) Recent Labs Basename 12/03/12 0401 12/02/129 12/01/12 014 WBC 7.6 12.3* 17.1* HB 8.4* 8.9* 10.0* HCT 25.2* 25.6* 29.5* PLT 92* 72* 90* NEUTROPERC -- -- 86* BANDPCT -- -- -- LYMPHPERC -- -- 6* MONOPERC -- -- 8 BASOPERC -- -- 0 EOSPERC -- -- 0* Assessment and Plan: 67 y.o. male s/p CABG 3 pod # 3, VT arrest, low EF, LV thrombus Plan: d/c remaining shabnam Continue heparin gtt until INR> 2 Ambulate, hourly IS, pulmonary toilets Replace lytes Gentle diuresis continue bumex IV Daljit Sun MD - 12/02/2012 5:40 PM PST [facility] ATTENDING PROFESSIONAL BONDSMAN NIGHT NOTE Team Pager: [phone] Attending Pager: [phone] Date:12/02/2012 Author: DALJIT HARRELL MD Attestation: I saw and evaluated Josef Ramos. I reviewed the documented findings, all da ta and the recent imaging available. My independent assessment and care plan is documented below. NOTE: Events and plan placed at top of note for rapid review. Data used in preparing this assessment appear below the plan section and have been reviewed if they appear. HPI: Josef Ramos is a 67 y.o. male s/p CABG 3 on 11/30/12 PMH: VT arrest, low EF, LV thrombus 24 Hour Events: Cultures negative, ABX stopped. Pacing wires d/adin while transiently off he ansley. Drips: Heparin 1300, Insulin 2 Vent: 2L NC Dx: NEURO Acute postoperative nociceptive pain Developmental delay Risk for stroke given h/o LV thrombus CV CAD, s/p CABG x 3 Postoperative cardiogenic and vasodilatory shock PULMO Pulmonary insufficiency following surgery RENAL CKD Metabolic acidosis HEM/coagulation Acute postoperative blood loss anemia LV Thrombus ID Leukocytosis, reactive Presumptive urosepsis / UTI - cultures negative ENDO Hyperglycemia, stress-induced OTHER Morbid obesity, Body mass index is 42.33 kg/(m^2). PLAN: Cont heparin drip and couamdin QHS Gentle diuresis Other iissues per day team notes Stable for transfer I have spent 22 minutes in the care and management of this patient who is ill. Daljit Harrell M.D. Department of Anesthesiology & Ольга-Operative Medicine [address] [place] [id number] [place] [address] DEPARTMENT: [facility] ICU CARDIAC [[id number]] Place of Service:- Inpatient Date of Service: 12/02/2012 CSN: [id number] Suggested Modifier: Suggested CPT: TO LOAN REVIEW ANALYST Data Below Used in this Assessment: Hemodynamics: Hemodynamic Drips: Arterial BP Mean: 59 mmHg (12/01/12 1200) CVP Mean: 11 mmHg (12/01/121199) CO (cardiac output): 10.7 (12/01/121199) CI (cardiac index): 3.98 (12/01/12 1200) PAP Mean: 21 mmHg (12/01/12 1200) SVR (systemic vascular resistance): 389 (12/01/12 1200) none Respiratory: Recent Labs Basename 11/30/12 0148 11/30/12 0031 FIO2 40% 45% PH 7.31* 7.33* PCO2 35 34 PO2 129* 137* HCO3 17* 17* ABGEXCESS -7.9 -7.5 Vent Settings Last 8 Hours: No Data Recorded Set Rate Av bpm Min: 15 bpm Max: 15 bpm No Data Recorded No Data Recorded No Data Recorded No Data Recorded No Data Recorded No Data Recorded Renal: Intake/Output Summary (Last 24 hours) at 12/02/12 1740 Last data filed at 12/02/12 1700 Gross per 24 hour Intake 1130.29 ml Output 3150 ml Net -2019.71 ml ID: Temp (24hrs), Av.1 C (98.8 F), Min:36.9 C (98.4 F), Max:37.3 C (99.1 F) BLOOD CULTURE [facility] (no units) Date Value 11/30/2012 No growth to date. 11/30/2012 Sent for Subculture CULTURE RESULT (no units) Date Value 11/30/2012 C Urine Source: Urine Final CULTURE RESULT: No growth (<1000 col/ml) after 24 hours 11/30/2012 C [facility] Pos Blood Source: Blood Prelim CULTURE RESULT: Culture in progress No growth to date Culture examined daily Report will be updated if growth occurs Recent Labs Basename 12/02/12 1729 12/02/12 1200 12/02/12 0843 12/02/12 0259 12/01/12 1332 12/01/12 014 7 11/30/12 1151 11/30/12 0149 NA -- -- -- 139 -- 141 145 -- K -- -- -- 4.2 4.4 4.3 -- -- CL -- -- -- 103 -- 107 111* -- BICARB -- -- -- 26 -- 23 21 -- BUN -- -- -- 29* -- 29* 30* -- CR -- -- -- 2.05* -- 1.98* 2.14* -- GLU 124* 151* 166* -- -- -- -- -- MG -- -- -- 2.1 -- 2.3 -- 3.2* PO4 -- -- -- 2.9 -- 4.1 4.2 -- Recent Labs Basename 12/02/12 0259 12/01/12 0147 11/30/12 1151 11/29/12 2110 11/29/12 2013 WBC 12.3* 17.1* 21.2* -- -- HB 8.9* 10.0* 10.9* -- -- HCT 25.6* 29.5* 32.6* -- -- PLT 72* 90* 132* -- -- APTT -- -- -- 39.8* 44.5* Current Inpatient Medications Medication Dose Route Frequency acetaminophen (aka TYLENOL) tablet 650 mg 650 mg Oral Q4H aspirin chewable tablet 81 mg 81 mg Oral DAILY bisacodyl (aka DULCOLAX) suppository 10 mg 10 mg Rectal BID PRN bumetanide (aka BUMEX) injection 0.5 mg 0.5 mg Intravenous DAILY dextrose 5%-NaCl 0.45% IV infusion 25 mL/hr Intravenous CONTINUOUS dextrose 50 % injection 12.5 g 25 mL Intravenous PRN glucagon (aka GLUCAGEN) injection 1 mg 1 mg Intramuscular PRN glucose chewable tablet 16 g 16 g Oral Q15MIN PRN guar gum (aka BENEFIBER) oral powder 1 Packet 1 Packet Oral DAILY PRN heparin in D5W IV infusion 25,000 units/250 mL 1,300 Units/hr Intravenous CONTINUOUS HYDROmorphone (aka DILAUDID) injection 0.2-0.5 mg 0.2-0.5 mg Intravenous Q2H PRN insulin lispro (aka HUMALOG) injection 10 Units 10 Units Subcutaneous TID W/MEALS insulin NPH (aka HUMULIN N) injection 15 Units 15 Units Subcutaneous QAM MEAL insulin NPH (aka HUMULIN N) injection 15 Units 15 Units Subcutaneous QNOON insulin NPH (aka HUMULIN N) injection 15 Units 15 Units Subcutaneous HS menthol-zinc oxide (aka CALAZIME) topical paste Topical QID PRN metoprolol tartrate (aka LOPRESSOR) tablet 12.5 mg 12.5 mg Oral BID omeprazole (aka PRILOSEC) capsule 40 mg 40 mg Oral DAILY ondansetron (aka ZOFRAN) injection 4 mg 4 mg Intravenous Q12H PRN oxyCODONE (immediate release) (aka ROXICODONE) tablet 5-10 mg 5-10 mg Oral Q3H PRN polyethylene glycol (aka MIRALAX) powder 17 g 17 g Oral DAILY PRN potassium chloride IV 20 mEq 20 mEq Intravenous PRN potassium chloride SR (aka K-DUR) tablet 20 mEq 20 mEq Oral DAILY senna-docusate (aka SENOKOT S) 8.6-50 mg 1 Tab 1 Tab Oral BID simethicone chew (aka MYLICON) tablet 80 mg 80 mg Oral TID PRN simvastatin (aka ZOCOR) tablet 20 mg 20 mg Oral QPM warfarin (aka COUMADIN) tablet 2.5 mg 2.5 mg Oral QPM Heidi Munoz MD - 12/02/2012 10:07 AM PST [facility] ATTENDING PROFESSIONAL [employer]ONDSMAN PROGRESS NOTE Team Pager: [phone] Attendin I saw and examined the patient at bedside with Dr Palacios and agree with his findings. I form ulated the plan with the team. POD 3 CAB2, UTI. History of low EF with LV thrombus Cultures negative - stop antibiotics. Hold heparin and pull pacing wires Once heparin is restarted (2h after pacing wires) goal is level 0.3 Ok to transfer to [facility] 2 h following heparin restart if no drainage 14 minutes spent in the care and management of this patient who is critically ill Heidi Nieto M.D., M.A. Department of Anesthesiology and Ольга-Operative Medicine [address] [place] [address] Rd. [facility] [place] [address] [facility] DEPARTMENT: [facility] ICU CARDIAC [[id number]] Place of Service:- Inpatient Date of Service: 12/02/2012 CSN: [id number] Suggested Modifier: GC - Resident Involved Suggested CPT: TO LOAN REVIEW ANALYST 1: 24 PM Veronika Lloyd MD - 12/02/2012 9:18 AM PSTFormatting of this note might be differ ent from the original. [facility] DAILY PROGRESS NOTE (Cardiac) Team Pager: [phone] Attendin Author: Veronika Palacios MD Date:12/02/2012 Attending Insurance Compliance Analyst: Operating Surgeon: MD Narendra Ellison MD POD#3 Procedure: Coronary artery bypass grafting x 3, Left Internal Mammary Artery (DE LA ROSA) to LAD, SVG to OM and PDA. ICU day #4 HPI: Josef Ramos is a 67 y.o. male first presented 10/02/12 following pulse polymorphic VT (184) s/p amio, defibrillation and conversion to AFIB, TTE revealed LV systolic function is severely decreased w/ant,anteroseptal and apical segments were thinned and akinetic. All ot her segments are hypokinetic, consistent with LAD territory-also suspicion for LV thrombus. NSTEMI during admit-unclear if primary or related to defib and electrolytes were normal on i nitial labs. LHC revealed severe three vessel coronary artery disease. Given LV thrombus rev ascularization was delayed until today. Underwent anticoagulation for LV thrombus. Recent EC HO revealed resolution of LV thrombus. Preadmitted to for heparin gtt as bridge for anticoag ulation prior to OR on 11/29/12 for CABG. . 24 Hour Events: Increased heparin gtt. Negative blood/urine cx Transfer orders written yesterday Assessment and Plan: NEURO Acute postoperative nociceptive pain Hx of mental delay- high functioning per notes may not understand surgery or post-op care High risk for CVA given known LV thrombus Dilaudid and tylenol for pain Oxycodone 5-10 as needed Slow responses to questions--unable to consent for himself, not oriented CV CAD, s/p CABG x 3 At risk for [place], CVA, arrythmia, cardiogenic shock LV thrombus Asa, simvastatin Hold home rickie and amiodarone for now Cont coumadin DC pacing wires 2 hours after hep held Start metop 12.5 bid Dc shabnam tomorrow PULMO Pulmonary insufficiency following surgery ISS, coughing, up to chair as able RENAL/ ELECTROLYTES CKD- baseline Cr 1.5-1.7- adequate UOP Hyperkalemia resolved I/O goal -500 to -1000 DC leslie bumex .5 bid kcl 20 q day GI GI prophylaxis Regular diet Omeprazole HEM/COAG Hx of LV thrombus and still present with intra-op MADHURI DVT prophylaxis Heparin gtt. Restart hep gtt 2 hours after pacing wires out Heparin level goal .3-.7 Cont coumadin SCDs ID Leukocytosis--coming down Negative cultures Dc vanco/zosyn. cx negative AM CBC ENDO Hyperglycemia, stress-induced NPH/lispro OTHER Morbid obesity, Body mass index is 42.33 kg/(m^2). Code Status CODE STATUS : FULL Transfer to floor Infusions: none Physical Exam: Neuro: alert, oriented only to self, slow responses. Per RN no changes overnight CN: ll-XII intact Motor: 5/5 in all extremeties Sensory: light touch intact Sedation Score: RON 3: Calm and cooperative Chest: low volume due to effort Incision:clean Cardiac: Rhythm:NSR normal S1 and S2 Abdomen: non-distended and obese, non-tender Extremities: radial=4/4, dorsalis pedis=4/4, bilaterally. mild edema Skin: normal Tubes/Lines (insertion date): Shabnam x1 Feeding: regular Analgesia:oxycodone, tylenol Sedation:none Thromboprophylaxis: Heparin gtt Head of Bed: Head of Bed >30 degrees Ulcer Prophylaxis:Omeprazole Glycemic control: NPH/lispro Veronika Palacios MD chDaljit morales MD - 12/01/2012 4:09 PM PSTFormatting of this note might be different from e original. [facility] ATTENDING PROFESSIONAL BONDSMAN NIGHT NOTE Team Pager: [phone] Attending Pager: [phone] Date:12/01/2012 Author: DALJIT HARRELL MD Attestation: I saw and evaluated Josef Ramos. I reviewed the documented findings, all da ta and the recent imaging available. My independent assessment and care plan is documented below. NOTE: Events and plan placed at top of note for rapid review. Data used in preparing this assessment appear below the plan section and have been reviewed if they appear. HPI: Josef Ramos is a 67 y.o. male s/p CABG 3 on 11/30/12 PMH: VT arrest, low EF, LV thrombus 24 Hour Events: Heparin drip increased, started Coumadin, ABX continued, Vasoactive drips w eaned, Diuresing Drips: Heparin 900, Insulin 2 Vent: 3L NC Dx: NEURO Acute postoperative nociceptive pain Developmental delay Risk for stroke given h/o LV thrombus CV CAD, s/p CABG x 3 Postoperative cardiogenic and vasodilatory shock PULMO Pulmonary insufficiency following surgery RENAL CKD Metabolic acidosis HEM/coagulation Acute postoperative blood loss anemia LV Thrombus ID Leukocytosis, reactive Presumptive urosepsis ENDO Hyperglycemia, stress-induced OTHER Morbid obesity, Body mass index is 42.33 kg/(m^2). PLAN: Continue broad spectrum ABX Cont heparin, coumadin Gentle diuresis May be able to transfer tomorrow I have spent 32 minutes in the care and management of this patient who is critically ill. Daljit Harrell M.D. Department of Anesthesiology & Ольга-Operative Medicine [address] [facility] [address] [facility] [place] [id number] [place] [address] DEPARTMENT: [facility] ICU CARDIAC [[id number]] Place of Service:- Inpatient Date of Service: 12/01/2012 CSN: [id number] Suggested Modifier: Suggested CPT: TO LOAN REVIEW ANALYST Data Below Used in this Assessment: Hemodynamics: Hemodynamic Drips: Arterial BP Mean: 59 mmHg (12/01/12 1200) CVP Mean: 11 mmHg (12/01/12 1200) CO (cardiac output): 10.7 (12/01/12 1200) CI (cardiac index): 3.98 (12/01/12 1200) PAP Mean: 21 mmHg (12/01/12 1200) SVR (systemic vascular resistance): 389 (12/01/12 1200) none Respiratory: Recent Labs Basename 11/30/12 0148 11/30/12 0031 FIO2 40% 45% PH 7.31* 7.33* PCO2 35 34 PO2 129* 137* HCO3 17* 17* ABGEXCESS -7.9 -7.5 Vent Settings Last 8 Hours: No Data Recorded Set Rate Av bpm Min: 15 bpm Max: 15 bpm No Data Recorded No Data Recorded No Data Recorded No Data Recorded No Data Recorded No Data Recorded Renal: Intake/Output Summary (Last 24 hours) at 12/01/12 1609 Last data filed at 12/01/12 1500 Gross per 24 hour Intake 5239.01 ml Output 2010 ml Net 3229.01 ml ID: Temp (24hrs), Av.3 C (99.1 F), Min:36.9 C (98.4 F), Max:37.5 C (99.5 F) BLOOD CULTURE [facility] (no units) Date Value 11/30/2012 Sent for Subculture CULTURE RESULT (no units) Date Value 11/30/2012 C Urine Source: Urine Final CULTURE RESULT: No growth (<1000 col/ml) after 24 hours 11/30/2012 C [facility] Pos Blood Source: Blood Prelim CULTURE RESULT: No growth to date Culture examined daily Report will be updated if growth occurs Recent Labs Basename 12/01/12 1504 12/01/12 1332 12/01/12 1330 12/01/12 1112 12/01/12 0147 11/30/12 225 1 11/30/12 1151 11/30/1214811/29/122109 NA -- -- -- -- 141 -- 145 142 -- K -- 4.4 -- -- 4.3 4.3 -- -- -- CL -- -- -- -- 107 -- 111* 109* -- BICARB -- -- -- -- 23 -- 21 16* -- BUN -- -- -- -- 29* -- 30* 33* -- CR -- -- -- -- 1.98* -- 2.14* 2.28* -- GLU 171* -- 119* 155* -- -- -- -- -- MG -- -- -- -- 2.3 -- -- 3.2* 3.8* PO4 -- -- -- -- 4.1 -- 4.2 2.0* -- Recent Labs Basename 12/01/12 0147 11/30/12 1151 11/30/12 0838 11/29/12210911/29/122012 WBC 17.1* 21.2* 19.2* -- -- HB 10.0* 10.9* 11.8* -- -- HCT 29.5* 32.6* 35.7* -- -- PLT 90* 132* 138* -- -- APTT -- -- -- 39.8* 44.5* Current Inpatient Medications Medication Dose Route Frequency acetaminophen (aka TYLENOL) tablet 650 mg 650 mg Oral Q4H aspirin chewable tablet 81 mg 81 mg Oral DAILY bisacodyl (aka DULCOLAX) suppository 10 mg 10 mg Rectal BID PRN chlorhexidine (aka PERIDEX) mouthwash 15 mL 15 mL Oral BID dextrose 5%-NaCl 0.45% IV infusion 25 mL/hr Intravenous CONTINUOUS dextrose 50 % injection 12.5 g 25 mL Intravenous PRN EPINEPHrine in NS IV infusion 5 mg/250 mL (0.02 mg/mL) 0.01 mcg/kg/min (Dosing Weight) Intravenous CONTINUOUS glucagon (aka GLUCAGEN) injection 1 mg 1 mg Intramuscular PRN glucose chewable tablet 16 g 16 g Oral Q15MIN PRN guar gum (aka BENEFIBER) oral powder 1 Packet 1 Packet Oral DAILY PRN heparin in D5W IV infusion 25,000 units/250 mL 900 Units/hr Intravenous CONTINUOUS HYDROmorphone (aka DILAUDID) injection 0.2-0.5 mg 0.2-0.5 mg Intravenous Q2H PRN insulin lispro (aka HUMALOG) injection 10 Units 10 Units Subcutaneous TID W/MEALS insulin regular in NaCl 0.9% IV infusion 250 units/250 mL (1 unit/mL) 0.25-40 Units/hr Intravenous CONTINUOUS magnesium sulfate IV 2 g 2 g Intravenous PRN menthol-zinc oxide (aka CALAZIME) topical paste Topical QID PRN mupirocin (aka BACTROBAN) 2 % ointment Nasal BID omeprazole (aka PRILOSEC) capsule 40 mg 40 mg Oral DAILY ondansetron (aka ZOFRAN) injection 4 mg 4 mg Intravenous Q12H PRN oxyCODONE (immediate release) (aka ROXICODONE) tablet 5-10 mg 5-10 mg Oral Q3H PRN piperacillin-tazobactam (aka ZOSYN) IV 3.375 g 3.375 g Intravenous Q6H polyethylene glycol (aka MIRALAX) powder 17 g 17 g Oral DAILY PRN potassium chloride IV 20 mEq 20 mEq Intravenous PRN senna-docusate (aka SENOKOT S) 8.6-50 mg 1 Tab 1 Tab Oral BID simethicone chew (aka MYLICON) tablet 80 mg 80 mg Oral TID PRN simvastatin (aka ZOCOR) tablet 20 mg 20 mg Oral QPM vancomycin (aka VANCOCIN) IV 1,750 mg 1,750 mg Intravenous Q24H vasopressin in NS IV infusion (Pyxis) 2 Units/hr Intravenous CONTINUOUS warfarin (aka COUMADIN) tablet 2.5 mg 2.5 mg Oral QPM Veronika Lloyd MD - 12/01/2012 10:48 AM PST 8[facility] DAILY PROGRESS NOTE (Cardiac) Team Pager: [phone] Attendin Author: Veronika Palacios MD Date:12/01/2012 Attending Insurance Compliance Analyst: Operating Surgeon: MD Narendra Ellison MD POD#2 Procedure: Coronary artery bypass grafting x 3, Left Internal Mammary Artery (DE [place] ROSA) to LAD, SVG to OM and PDA. ICU day #3 HPI: Josef Ramos is a 67 y.o. male first presented 10/02/12 following pulse polymorphic VT (184) s/p amio, defibrillation and conversion to AFIB, TTE revealed LV systolic function is severely decreased w/ant,anteroseptal and apical segments were thinned and akinetic. All ot her segments are hypokinetic, consistent with LAD territory-also suspicion for LV thrombus. NSTEMI during admit-unclear if primary or related to defib and electrolytes were normal on i nitial labs. LHC revealed severe three vessel coronary artery disease. Given LV thrombus rev ascularization was delayed until today. Underwent anticoagulation for LV thrombus. Recent EC HO revealed resolution of LV thrombus. Preadmitted to for heparin gtt as bridge for anticoag ulation prior to OR on 11/29/12 for CABG. . 24 Hour Events: Epi decreased to .01 and mil turned off this am. Assessment and Plan: NEURO Acute postoperative nociceptive pain Hx of mental delay- high functioning per notes may not understand surgery or post-op care High risk for CVA given known LV thrombus Dilaudid and tylenol for pain Oxycodone 5-10 as needed Slow responses to questions--unable to consent for himself, not oriented CV CAD, s/p CABG x 3 At risk for [place], CVA, arrythmia, cardiogenic shock LV thrombus Decrease vasopressin to 1u/hr Asa, simvastatin Milrinone DC'd this am DC epi this afternoon if CI > 2.2 Hold home rickie and amiodarone for now DC lowest draining shabnam drain Coumadin tonight DC pacing wires tomorrow DC a-line and pa catheter PULMO Pulmonary insufficiency following surgery ISS, coughing, up to chair as able RENAL/ ELECTROLYTES Acute metabolic acidosis- possibly 2/2 CKD, lactic acidosis following CPB, proximal RTA, NaCl use (nongap) CKD- baseline Cr 1.5-1.7- adequate UOP Hyperkalemia resolved I/O goal even to negative 500 DC leslie this evening bumex .125 mg x 1 now GI GI prophylaxis Regular diet Omeprazole HEM/COAG Hx of LV thrombus and still present with intra-op MADHURI DVT prophylaxis Heparin gtt Heparin level goal .3-.7 Coumadin tonight SCDs ID Leukocytosis--coming down Possible urosepsis CX pending Vanc/zosyn until speciation on urine AM CBC ENDO Hyperglycemia, stress-induced insulin gtt Transition to NPH once jone PO OTHER Morbid obesity, Body mass index is 42.33 kg/(m^2). Code Status CODE STATUS : FULL Transfer to floor this evening Infusions: Epi 0.01 Vasopressin 2 units/hr Insulin gtt Physical Exam: Neuro: alert, oriented only to self, slow responses. Per RN no changes overnight CN: ll-XII intact Motor: 5/5 in all extremeties Sensory: light touch intact Sedation Score: RON 3: Calm and cooperative Chest: low volume due to effort Incision:clean Cardiac: Rhythm:NSR normal S1 and S2 Abdomen: non-distended and obese, non-tender Extremities: radial=4/4, dorsalis pedis=4/4, bilaterally. mild edema Skin: normal Tubes/Lines (insertion date): CVC with PA 11/29/12 L radial a-line 11/29/12 V-wires blakes leslie Feeding: regular Analgesia:oxycodone, tylenol Sedation:none Thromboprophylaxis: Heparin SQ Head of Bed: Head of Bed >30 degrees Ulcer Prophylaxis:Omeprazole Glycemic control: insulin infusion Veronika Palacios MD utch Heidi guerrero MD - 12/01/2012 7:35 AM PST 8[facility] ATTENDING PROFESSIONAL [employer] DAILY PROGRESS NOTE Team Pager: [phone] Attendin Date:12/01/2012 Author: HEIDI NIETO MD Attestation: I saw and examined the patient at bedside with Dr Palacios and agree with his find ings. I formulated the plan with the team. NOTE: Events and plan placed at top of note for rapid review. Data used in preparing this assessment appear below the plan section and have been reviewed if they appear. 67 y.o. y/o male pod 2 CAB history significant for VT, LV thrombus, severe LV dysfunction 24 Hour Events: presumptive urosepsis volume resuscitated with improved hemodynamics PLAN: 1. Developmental delay At risk of Cerebrovascular Accident: At baseline LV thrombus -- increase Heparin to 700, follow levels goal 0.3 Start warfarin 2. UTI zosyn vanco pending cultures 3. Vasodilatory shock: Chronic Left Ventricular Systolic Failure: norepi weaned overnight Half vasopressin now. milrinone off overnight Keep epi now, reassess at afternoon rounds. Will be in decompensated failure unless diuresed soon see below 4. Post-resuscitation Volume overload: Gentle diurese -- attempt bumex 0.125 now I/O Goal next 24 Hr: even to negative 500 I have spent 32 minutes in the care and management of this patient who is currently criti ryan ill. [facility] DEPARTMENT: [facility] ICU CARDIAC [[id number]] Place of Service:- Inpatient Date of Service: 12/01/2012 CSN: [id number] Suggested Modifier: GC - Resident Involved Suggested CPT: TO LOAN REVIEW ANALYST Hemodynamics: Hemodynamic Drips: Arterial BP Mean: 70 mmHg (12/01/12699) CVP Mean: 7 mmHg (12/01/12699) CO (cardiac output): 9.87 (12/01/12550) CI (cardiac index): 3.67 (12/01/12550) PAP Mean: 15 mmHg (12/01/12699) SVR (systemic vascular resistance): 429 (12/01/12550) epi 0.01 vaso 2 Respiratory: Recent Labs Basename 11/30/12 0148 11/30/12 0031 FIO2 40% 45% PH 7.31* 7.33* PCO2 35 34 PO2 129* 137* HCO3 17* 17* ABGEXCESS -7.9 -7.5 Vent Settings Last 8 Hours: No Data Recorded Set Rate Av bpm Min: 15 bpm Max: 15 bpm No Data Recorded No Data Recorded No Data Recorded No Data Recorded No Data Recorded No Data Recorded Renal: Intake/Output Summary (Last 24 hours) at 12/01/12 0736 Last data filed at 12/01/12 0700 Gross per 24 hour Intake 7894.62 ml Output 2280 ml Net 5614.62 ml ID: Temp (24hrs), Av.2 C (99 F), Min:36.9 C (98.4 F), Max:37.5 C (99.5 F) BLOOD CULTURE [facility] (no units) Date Value 11/30/2012 Sent for Subculture Recent Labs Basename 12/01/12 0654 12/01/12 0541 12/01/12 0336 12/01/12 0147 11/30/12 2251 11/30/12 115 1 11/30/12 0149 11/29/122109 NA -- -- -- 141 -- 145 142 -- K -- -- -- 4.3 4.3 4.5 -- -- CL -- -- -- 107 -- 111* 109* -- BICARB -- -- -- 23 -- 21 16* -- BUN -- -- -- 29* -- 30* 33* -- CR -- -- -- 1.98* -- 2.14* 2.28* -- GLU 139* 148* 184* -- -- -- -- -- MG -- -- -- 2.3 -- -- 3.2* 3.8* PO4 -- -- -- 4.1 -- 4.2 2.0* -- Recent Labs Basename 12/01/12 0147 11/30/12 1151 11/30/12 0838 11/29/12210911/29/122012 WBC 17.1* 21.2* 19.2* -- -- HB 10.0* 10.9* 11.8* -- -- HCT 29.5* 32.6* 35.7* -- -- PLT 90* 132* 138* -- -- APTT -- -- -- 39.8* 44.5* INRPT -- -- -- 1.71* 2.03* HEPLMW <0.10 -- -- -- -- Current Inpatient Medications Medication Dose Route Frequency acetaminophen (aka TYLENOL) tablet 650 mg 650 mg Oral Q4H amiodarone IV (loading dose) 150 mg Intravenous PRN aspirin chewable tablet 81 mg 81 mg Oral DAILY bisacodyl (aka DULCOLAX) suppository 10 mg 10 mg Rectal BID PRN calcium chloride IV 1 g 1 g Intravenous PRN chlorhexidine (aka PERIDEX) mouthwash 15 mL 15 mL Oral BID dextrose 5%-NaCl 0.45% IV infusion 25 mL/hr Intravenous CONTINUOUS dextrose 50 % injection 12.5 g 25 mL Intravenous PRN EPINEPHrine in NS IV infusion 5 mg/250 mL (0.02 mg/mL) 0.01 mcg/kg/min (Dosing Weight) Intravenous CONTINUOUS glucagon (aka GLUCAGEN) injection 1 mg 1 mg Intramuscular PRN glucose chewable tablet 16 g 16 g Oral Q15MIN PRN guar gum (aka BENEFIBER) oral powder 1 Packet 1 Packet Oral DAILY PRN heparin in D5W IV infusion 25,000 units/250 mL 700 Units/hr Intravenous CONTINUOUS HYDROmorphone (aka DILAUDID) injection 0.2-0.5 mg 0.2-0.5 mg Intravenous Q2H PRN insulin lispro (aka HUMALOG) injection 10 Units 10 Units Subcutaneous TID W/MEALS insulin regular in NaCl 0.9% IV infusion 250 units/250 mL (1 unit/mL) 0.25-40 Units/hr Intravenous CONTINUOUS magnesium sulfate IV 2 g 2 g Intravenous PRN menthol-zinc oxide (aka CALAZIME) topical paste Topical QID PRN mupirocin (aka BACTROBAN) 2 % ointment Nasal BID norepinephrine in NaCl 0.9% IV infusion 8 mg/250 mL (0.032 mg/mL) 0.02-2 mcg/kg/min (D osing Weight) Intravenous CONTINUOUS omeprazole (aka PRILOSEC) capsule 40 mg 40 mg Oral DAILY ondansetron (aka ZOFRAN) injection 4 mg 4 mg Intravenous Q12H PRN oxyCODONE (immediate release) (aka ROXICODONE) tablet 5-10 mg 5-10 mg Oral Q3H PRN piperacillin-tazobactam (aka ZOSYN) IV 3.375 g 3.375 g Intravenous Q6H polyethylene glycol (aka MIRALAX) powder 17 g 17 g Oral DAILY PRN potassium chloride IV 20 mEq 20 mEq Intravenous PRN senna-docusate (aka SENOKOT S) 8.6-50 mg 1 Tab 1 Tab Oral BID simethicone chew (aka MYLICON) tablet 80 mg 80 mg Oral TID PRN simvastatin (aka ZOCOR) tablet 20 mg 20 mg Oral QPM vancomycin (aka VANCOCIN) IV 1,750 mg 1,750 mg Intravenous Q24H vasopressin in NS IV infusion (Pyxis) 2 Units/hr Intravenous CONTINUOUS Daljit Hendrix MD - 11/30/2012 7:21 PM PST 8[facility] ATTENDING PROFESSIONAL [employer] NIGHT NOTE Team Pager: [phone] Attending Pager: [phone] Date:11/30/2012 Author: DALJIT HARRELL MD Attestation: I saw and evaluated Josef Ramos. I reviewed the documented findings, all da ta and the recent imaging available. My independent assessment and care plan is documented below. NOTE: Events and plan placed at top of note for rapid review. Data used in preparing this assessment appear below the plan section and have been reviewed if they appear. HPI: Josef Ramos is a 67 y.o. male s/p CABG 3 on 11/30/12 PMH: VT arrest, low EF, LV thrombus 24 Hour Events: metabolic acidosis - given bicarb this am, extubated middle last night, hyp otensive this am with near syncope, found to have positive U/A and presumptive urosepsis tod ay. Started on broad spectrum ABX. Started on Milrinone. TTE today (worse LV function). Give n ~3L volume today for hypotension and low filling pressures Drips: Epi 0.02, Heparin 500, Insulin 7, Milrinone 0.125, NE 0.03, FISH PROTECTOR 2 Vent: 3L NC CI 3.1 SVO2 55 Low filling pressures, low SVR Urine output adequate Dx: NEURO Acute postoperative nociceptive pain Developmental delay Risk for stroke given h/o LV thrombus CV CAD, s/p CABG x 3 Postoperative cardiogenic and vasodilatory shock PULMO Pulmonary insufficiency following surgery RENAL CKD Metabolic acidosis HEM/coagulation Acute postoperative blood loss anemia LV Thrombus ID Leukocytosis, reactive Presumptive urosepsis ENDO Hyperglycemia, stress-induced OTHER Morbid obesity, Body mass index is 42.33 kg/(m^2). PLAN: Continue broad spectrum ABX F/U Cultures Cont fixed dose heparin Cont Milrinone tonight, wean Epi one click now Wean pressors as tolerated - may need additional volume Check one more lactate now I have spent 50 minutes in the care and management of this patient who is critically ill. Daljit Harrell M.D. Department of Anesthesiology & Ольга-Operative Medicine [address] [facility] Roxann Benjamin. [address] [address] [facility] DEPARTMENT: [facility] ICU CARDIAC [[id number]] Place of Service:- Inpatient Date of Service: 11/30/2012 CSN: [id number] Suggested Modifier: GC - Resident Involved Suggested CPT: TO LOAN REVIEW ANALYST Data Below Used in this Assessment: Hemodynamics: Hemodynamic Drips: Arterial BP Mean: 67 mmHg (11/30/12 1900) CVP Mean: 9 mmHg (11/30/12 1900) CO (cardiac output): 9 (11/30/12 1600) CI (cardiac index): 3.35 (11/30/12 1600) PAP Mean: 18 mmHg (11/30/12 1900) SVR (systemic vascular resistance): 533 (11/30/12 1600) See above Respiratory: Recent Labs Basename 11/30/12 0148 11/30/12 0031 FIO2 40% 45% PH 7.31* 7.33* PCO2 35 34 PO2 129* 137* HCO3 17* 17* ABGEXCESS -7.9 -7.5 Vent Settings Last 8 Hours: No Data Recorded Set Rate Av bpm Min: 15 bpm Max: 15 bpm No Data Recorded No Data Recorded No Data Recorded No Data Recorded No Data Recorded No Data Recorded Renal: Intake/Output Summary (Last 24 hours) at 11/30/121920 Last data filed at 11/30/121899 Gross per 24 hour Intake 17790.26 ml Output 4055 ml Net 7505.26 ml ID: Temp (24hrs), Av.9 C (98.5 F), Min:36 C (96.8 F), Max:37.5 C (99.5 F) BLOOD CULTURE [facility] (no units) Date Value 11/30/2012 Sent for Subculture Recent Labs Basename 11/30/12 1837 11/30/12 1609 11/30/12 1502 11/30/12 1151 11/30/12 0501 11/30/12 014 9 11/29/122109 NA -- -- -- 145 -- 142 142 K -- -- -- 4.5 4.0 4.0 -- CL -- -- -- 111* -- 109* 109* BICARB -- -- -- 21 -- 16* 21 BUN -- -- -- 30* -- 33* 33* CR -- -- -- 2.14* -- 2.28* 2.15* GLU 150* 147* 145* -- -- -- -- MG -- -- -- -- -- 3.2* 3.8* PO4 -- -- -- 4.2 -- 2.0* 3.2 Recent Labs Basename 11/30/12 1151 11/30/12 0838 11/30/12 0149 11/29/12210911/29/122012 WBC 21.2* 19.2* 27.1* -- -- HB 10.9* 11.8* 13.1* -- -- HCT 32.6* 35.7* 38.9* -- -- PLT 132* 138* 165 -- -- APTT -- -- -- 39.8* 44.5* Current Inpatient Medications Medication Dose Route Frequency acetaminophen (aka TYLENOL) tablet 650 mg 650 mg Oral Q4H amiodarone IV (loading dose) 150 mg Intravenous PRN aspirin chewable tablet 81 mg 81 mg Oral DAILY bisacodyl (aka DULCOLAX) suppository 10 mg 10 mg Rectal BID PRN calcium chloride IV 1 g 1 g Intravenous PRN chlorhexidine (aka PERIDEX) mouthwash 15 mL 15 mL Oral BID dextrose 5%-NaCl 0.45% IV infusion 25 mL/hr Intravenous CONTINUOUS dextrose 50 % injection 12.5 g 25 mL Intravenous PRN EPINEPHrine in NS IV infusion 5 mg/250 mL (0.02 mg/mL) 0.02 mcg/kg/min (Dosing Weight) Intravenous CONTINUOUS glucagon (aka GLUCAGEN) injection 1 mg 1 mg Intramuscular PRN glucose chewable tablet 16 g 16 g Oral Q15MIN PRN guar gum (aka BENEFIBER) oral powder 1 Packet 1 Packet Oral DAILY PRN heparin in D5W IV infusion 25,000 units/250 mL 500 Units/hr Intravenous CONTINUOUS HYDROmorphone (aka DILAUDID) injection 0.2-0.5 mg 0.2-0.5 mg Intravenous Q2H PRN insulin lispro (aka HUMALOG) injection 10 Units 10 Units Subcutaneous TID W/MEALS insulin regular in NaCl 0.9% IV infusion 250 units/250 mL (1 unit/mL) 0.25-40 Units/hr Intravenous CONTINUOUS magnesium sulfate IV 2 g 2 g Intravenous PRN menthol-zinc oxide (aka CALAZIME) topical paste Topical QID PRN milrinone (aka PRIMACOR) IV infusion 20 mg/100 mL 0.125 mcg/kg/min (Dosing Weight) Int ravenous CONTINUOUS mupirocin (aka BACTROBAN) 2 % ointment Nasal BID norepinephrine in NaCl 0.9% IV infusion 8 mg/250 mL (0.032 mg/mL) 0.02-2 mcg/kg/min (D osing Weight) Intravenous CONTINUOUS omeprazole (aka PRILOSEC) capsule 40 mg 40 mg Oral DAILY ondansetron (aka ZOFRAN) injection 4 mg 4 mg Intravenous Q12H PRN oxyCODONE (immediate release) (aka ROXICODONE) tablet 5-10 mg 5-10 mg Oral Q3H PRN piperacillin-tazobactam (aka ZOSYN) IV 3.375 g 3.375 g Intravenous Q6H polyethylene glycol (aka MIRALAX) powder 17 g 17 g Oral DAILY PRN potassium chloride IV 20 mEq 20 mEq Intravenous PRN senna-docusate (aka SENOKOT S) 8.6-50 mg 1 Tab 1 Tab Oral BID simethicone chew (aka MYLICON) tablet 80 mg 80 mg Oral TID PRN simvastatin (aka ZOCOR) tablet 20 mg 20 mg Oral QPM sodium bicarbonate 8.4 % (1 mEq/mL) injection 50 mEq 50 mEq Intravenous ONCE sodium bicarbonate 8.4 % (1 mEq/mL) injection 50 mEq 50 mEq Intravenous ONCE vancomycin (aka VANCOCIN) IV 1,750 mg 1,750 mg Intravenous Q24H vasopressin in NS IV infusion (Pyxis) 2 Units/hr Intravenous CONTINUOUS Heidi Munoz MD - 11/30/2012 12:37 PM PST 8[facility] ATTENDING PROFESSIONAL [employer] PROGRESS NOTE Team Pager: [phone] Attendin Urine has large leukocyte esterase, bacteria, and 103 WBC. Presumptive urosepsis Continue abx and volume resuscitation Milrinone to support LV in setting of resuscitation 14 additional minutes spent in the care and management of this patient who is critically i ll Heidi Nieto M.D., M.A. Department of Anesthesiology and Ольга-Operative Medicine [address] [place] [address]. [address] DEPARTMENT: [facility] ICU CARDIAC [[id number]] Place of Service:[id number]- Inpatient Date of Service: 11/30/2012 CSN: [id number] Suggested Modifier: None Suggested CPT: TO LOAN REVIEW ANALYST 1: 59 PM Elba Grady - 11/30/2012 11:05 AM PSTTransthoracic echocardiogram completed. Final report to follow. Heidi Munoz MD - 03/2013 7:54 AM PST 8[facility] ATTENDING PROFESSIONAL [employer] DAILY PROGRESS NOTE Team Pager: [phone] Attendin Date:11/30/2012 Author: HEIDI NIETO MD Attestation: I saw and examined the patient at bedside with Dr Mcgrath and agree with his f indings. I formulated the plan with the team. NOTE: Events and plan placed at top of note for rapid review. Data used in preparing this assessment appear below the plan section and have been reviewed if they appear. 67 y.o. y/o male pod 1 CAB history significant for VT, LV thrombus, severe LV dysfunction 24 Hour Events: Worsening acidosis, hypotensive episode this morning with near syncope PLAN: 1. Developmental delay, at risk of Cerebrovascular Accident: Appears to be at baseline 2. Hypotension Acute left ventricular systolic failure: Vasodilatory shock Start milrinone to support LV (chronic with acute failure) Add vasopressin to support failing circulation Volume resuscitation as tolerated TTE 3. Acute Kidney Injury (acute renal failure): Volume resusc Likely acute on chronic Follow lytes carefully 4. SIRS Elevated WBC with very vasodilated state -- an unlikely coincidence Hypotensive, Vasodilatory shock: Suspect sepsis Start broad spectrum abx Culture 5. At risk of Cerebrovascular Accident: History of LV thrombus Present at surgery Restart fixed dose heparin infusion this afternoon I/O Goal next 24 Hr: +++ I have spent 38 minutes in the care and management of this patient who is currently criti ryan ill. [facility] DEPARTMENT: [facility] ICU CARDIAC [[id number]] Place of Service:- Inpatient Date of Service: 11/30/2012 CSN: [id number] Suggested Modifier: GC - Resident Involved Suggested CPT: TO LOAN REVIEW ANALYST Hemodynamics: Hemodynamic Drips: Arterial BP Mean: 66 mmHg (11/30/12699) CVP Mean: 13 mmHg (11/30/12699) CO (cardiac output): 7.23 (11/30/1236) CI (cardiac index): 2.69 (11/30/12635) PAP Mean: 20 mmHg (11/30/12699) SVR (systemic vascular resistance): 675 (11/30/1236) epi 0.02 norepi 0.02 Respiratory: Recent Labs Basename 11/30/12 0148 11/30/12 0031 FIO2 40% 45% PH 7.31* 7.33* PCO2 35 34 PO2 129* 137* HCO3 17* 17* ABGEXCESS -7.9 -7.5 Renal: Intake/Output Summary (Last 24 hours) at 11/30/12 0754 Last data filed at 11/30/12 0700 Gross per 24 hour Intake 6119.1 ml Output 3575 ml Net 2544.1 ml ID: Temp (24hrs), Av.7 C (98.1 F), Min:36 C (96.8 F), Max:37.2 C (99 F) No results found for this basename: culture Recent Labs Basename 11/30/12 0633 11/30/12 0503 11/30/12 0501 11/30/12 0400 11/30/12 01411/29/12 234 1 11/29/12210911/28/1215 NA -- -- -- -- 142 -- 142 -- K -- -- 4.0 -- 4.0 4.0 -- -- CL -- -- -- -- 109* -- 109* -- BICARB -- -- -- -- 16* -- 21 -- BUN -- -- -- -- 33* -- 33* -- CR -- -- -- -- 2.28* -- 2.15* -- GLU 170* 164* -- 187* -- -- -- -- MG -- -- -- -- 3.2* -- 3.8* -- PO4 -- -- -- -- 2.0* -- 3.2 3.5 Recent Labs Basename 11/30/12 01411/29/12210911/29/12201211/28/12 0615 11/27/12 1124 WBC 27.1* 21.2* 18.1* -- -- HB 13.1* 14.0 11.3* -- -- HCT 38.9* 41.6 33.6* -- -- PLT 165 133* 123* -- -- APTT -- 39.8* 44.5* -- -- INRPT -- 1.71* 2.03* -- -- HEPLMW -- -- -- 0.62 0.61 Current Inpatient Medications Medication Dose Route Frequency acetaminophen (aka TYLENOL) tablet 650 mg 650 mg Oral Q4H amiodarone IV (loading dose) 150 mg Intravenous PRN aspirin chewable tablet 81 mg 81 mg Oral DAILY bisacodyl (aka DULCOLAX) suppository 10 mg 10 mg Rectal BID PRN calcium chloride IV 1 g 1 g Intravenous PRN cefUROXime (aka ZINACEF) IV 1.5 g 1.5 g Intravenous Q8H chlorhexidine (aka PERIDEX) mouthwash 15 mL 15 mL Oral BID dextrose 5%-NaCl 0.45% IV infusion 25 mL/hr Intravenous CONTINUOUS dextrose 50 % injection 12.5 g 25 mL Intravenous PRN EPINEPHrine in NS IV infusion 5 mg/250 mL (0.02 mg/mL) 0.02 mcg/kg/min (Dosing Weight) Intravenous CONTINUOUS glucagon (aka GLUCAGEN) injection 1 mg 1 mg Intramuscular PRN glucose chewable tablet 16 g 16 g Oral Q15MIN PRN guar gum (aka BENEFIBER) oral powder 1 Packet 1 Packet Oral DAILY PRN heparin injection 5,000 Units 5,000 Units Subcutaneous Q8H HYDROmorphone (aka DILAUDID) injection 0.2-0.5 mg 0.2-0.5 mg Intravenous Q2H PRN insulin lispro (aka HUMALOG) injection 10 Units 10 Units Subcutaneous TID W/MEALS insulin regular in NaCl 0.9% IV infusion 250 units/250 mL (1 unit/mL) 0.25-40 Units/hr Intravenous CONTINUOUS magnesium sulfate IV 2 g 2 g Intravenous PRN menthol-zinc oxide (aka CALAZIME) topical paste Topical QID PRN mupirocin (aka BACTROBAN) 2 % ointment Nasal BID norepinephrine in NaCl 0.9% IV infusion 8 mg/250 mL (0.032 mg/mL) 0.02-2 mcg/kg/min (D osing Weight) Intravenous CONTINUOUS omeprazole (aka PRILOSEC) capsule 40 mg 40 mg Oral DAILY ondansetron (aka ZOFRAN) injection 4 mg 4 mg Intravenous Q12H PRN oxyCODONE (immediate release) (aka ROXICODONE) tablet 5-10 mg 5-10 mg Oral Q3H PRN polyethylene glycol (aka MIRALAX) powder 17 g 17 g Oral DAILY PRN potassium chloride IV 20 mEq 20 mEq Intravenous PRN senna-docusate (aka SENOKOT S) 8.6-50 mg 1 Tab 1 Tab Oral BID simethicone chew (aka MYLICON) tablet 80 mg 80 mg Oral TID PRN simvastatin (aka ZOCOR) tablet 20 mg 20 mg Oral QPM Michael Cervantes MD - 11/30/2012 6:43 AM PSTFormatting of this note might be different from the orig inal. 8CSI DAILY PROGRESS NOTE (Cardiac) Team Pager: [phone] Attendin Author: MIHIR MCGRATH MD Date:11/30/2012 Attending Insurance Compliance Analyst: Operating Surgeon: MD Narendra Ellison MD POD# 1 Procedure: Coronary artery bypass grafting x 3, Left Internal Mammary Artery (DE LA ROSA ) to LAD, SVG to OM and PDA. ICU day # 2 HPI: Josef Ramos is a 67 y.o. male first presented 10/02/12 following pulse polymorphic VT (184) s/p amio, defibrillation and conversion to AFIB, TTE revealed LV systolic function is severely decreased w/ant,anteroseptal and apical segments were thinned and akinetic. All ot her segments are hypokinetic, consistent with LAD territory-also suspicion for LV thrombus. NSTEMI during admit-unclear if primary or related to defib and electrolytes were normal on i nitial labs. LHC revealed severe three vessel coronary artery disease. Given LV thrombus rev ascularization was delayed until today. Underwent anticoagulation for LV thrombus. Recent EC HO revealed resolution of LV thrombus. Preadmitted to for heparin gtt as bridge for anticoag ulation prior to OR on 11/29/12 for CABG. . 24 Hour Events: --epi and norepi continued overnight for lower CI --extubated around MN last night --lactate elevated this morning --vagal event with moving from bed to chair this am, SBP in 70's with sats in teens, bed placed in trendelenburg and pressures came up Assessment and Plan: NEURO Acute postoperative nociceptive pain Hx of mental delay- high functioning per notes may not understand surgery or post-op care High risk for CVA given known LV thrombus Dilaudid and tylenol for pain Obtain head CT if any focal deficits on exam Slow responses to questions--unable to consent for himself, not oriented CV CAD, s/p CABG x 3 At risk for [place], CVA, arrythmia, cardiogenic shock Will add milrinone at 0.25 this am along with epinephrine at current dose TTE today, f/u results IV fluid boluses for hypotension, however with decreased LV function may need increased reece tropic support Start 2 units/hr vasopressin Asa, simvastatin Hold home rickie and amiodarone for now PULMO Pulmonary insufficiency following surgery ISS, coughing, up to chair as able RENAL/ ELECTROLYTES Acute metabolic acidosis- possibly 2/2 CKD, lactic acidosis following CPB, proximal RTA, NaCl use (nongap) CKD- baseline Cr 1.5-1.7- adequate UOP Hyperkalemia resolved I/O goal even Metabolic acidosis and lactic acid possibly from infectious source as WBC had been increasi ng before surgery Repeat renal panel at 1400, repeat lactate 2 amps of bicarb this am Continue insulin gtt GI GI prophylaxis NPO now due to HD instability Omeprazole HEM/COAG Hx of LV thrombus and still present with intra-op MADHURI DVT prophylaxis Heparin gtt possibly start tonight SCDs ID Leukocytosis--had been increasing prior to surgery [place] cx with blood and urine, no prod uctive cough UA showing large LE Start broad spectrum abx now while cxs pending Vanc and Zosyn now Examine incision, abd for source. CXR appears clear CT abdomen if abdominal pain ENDO Hyperglycemia, stress-induced insulin gtt OTHER Morbid obesity, Body mass index is 42.33 kg/(m^2). Code Status none CODE STATUS : FULL Infusions: norepi 0.06 Epi 0.02 Vasopressin 2 units/hr Insulin gtt Physical Exam: Neuro: alert, oriented only to self, slow responses. Per RN no changes overnight CN: ll-XII intact Motor: 5/5 in all extremeties Sensory: light touch intact Sedation Score: RON 3: Calm and cooperative Chest: low volume due to effort Incision:clean Cardiac: Rhythm:NSR normal S1 and S2 Abdomen: non-distended and obese, non-tender Extremities: radial=4/4, dorsalis pedis=4/4, bilaterally. mild edema Skin: normal Tubes/Lines (insertion date): CVC with PA 11/29/12 L radial a-line 11/29/12 V-wires blakes leslie Feeding: NPO Analgesia:oxycodone Sedation:none Thromboprophylaxis: Heparin SQ Head of Bed: Head of Bed >30 degrees Ulcer Prophylaxis:Omeprazole Glycemic control: insulin infusion MIHIR MCGRATH MD laterTono MD - 11/29/2012 8:47 PM PSTInpatient Operative Note Patient Name: Josef Ramos Date of : 1945 [facility] Medical Record Number: [id number] Date: 11/29/2012 Attending Surgeon: NARENDRA LUNSFORD MD Dispatcher Refinery(s): Kathy Castro PA-C No residents of the appropriate level were available to assist with this case. Preoperative Diagnosis(s): 1. Coronary artery disease. 2. Obesity (Body mass index is 42.33 kg/(m^2). 3. LV thrombus 4. Heart Failure 5. Decreased LV systolic function Postoperative Diagnosis(s): SAME Procedures Performed: 1. Coronary artery bypass grafting x 3, Left Internal Mammary Artery (DE LA ROSA) to LAD, SVG to OM and PDA. 2. Dissection of ventricular apex from pericardium. 3. Epi-aortic US to evaluate aorta for safety of cross clamping and placement of clamp. 4. Endoscopic vein harvest RLE Anesthesia: General endotracheal. Cardiopulmonary Bypass Time: 87 minutes. Aortic Cross-Clamp Time: 66 minutes. Drains: Shabnam drain x 2, VENTRICULAR PACING WIRES , PA catheter, A-line, and Leslie. Complications: None Specimens: None Disposition: 8 CSI. Indications: Mr. Ramos is a 67 year old male who was referred from Kyle Chavez MD and presents with 3 Vessel Coronary Artery Disease and a LV thrombus. He was anticoagulated for a period and th en is taken to the operating room for Coronary Artery Bypass. Prior to the beginning of the procedure the team paused to verify the patient's identity, a s well as the procedure to be performed and the correct side/site. All equipment required w as ready and available. The patient was positioned appropriately. The following team psychologist s were present during the team pause: Surgeon, sociology research assistant, nursing, anesthesia, perfusion. Findings at Surgery: The sternum was normal Epiaortic US with a 12 MHz probe in the transverse and longitudinal dimension revealed (Gra de II disease). CONDUIT: The left internal mammary artery was 2.25 mm and of good quality. Saphenous vein was 4 mm in size and of good quality. CORONARY TARGETS: The LAD was 2.5 mm and GOOD The OM was 2.25 mm and GOOD The PDA was 2.0 mm and GOOD The OM2 (Left RALPH) was 1.0 mm and POOR. Procedure in detail: After the patient was properly identified, he was brought to the operating theater and plac ed supine on a well-padded operating table where general endotracheal anesthesia was adminis tered. Monitoring lines and a transesophageal echo probe were placed, a surgical pause was c onducted, and the patient was prepped and draped in the usual sterile fashion. Saphenous vein was harvested from the Right lower extremity using endoscopic technique. A midline sternotomy was made, and the left internal mammary artery was harvested with a te dious and meticulous dissection using electrocautery, sharp and blunt dissection, and small metallic clips. Due to the patient's size and body habitus this was very difficult and time consuming (additional 30 minutes) but the DE LA ROSA was of excellent quality. The patient was systemically heparinized, and the pericardium was incised. Epi-aortic Ultra sound was carried out with the above findings. Aortic, venous, and retrograde cardioplegia cannulae were placed, and the patient was put on cardiopulmonary bypass. A DLP cannula was placed in the ascending aorta for delivery of antegrade cardioplegia and venting. The aorta cross-clamped. Antegrade and retrograde cardioplegia were delivered and good isoelectric arrest was achieved. Throughout the case, additional doses of cardioplegia were delivered as needed. The LV apex was densely scarred, calcified, and fused to the peric ardium. This was taken down carefully. Care throughout the case was taken in handling the L V. Attention was first directed to the LATERAL WALL and the OM was identified. The artery was opened with a blade, and the arteriotomy was enlarged with White scissors. Using running 7- 0 monofilament a end-to-side anastomosis between the saphenous vein and the OM was construct ed. The vein graft was brought around the left side of the heart and cut to length. A small opening was made in the ascending aorta with a #11 blade and enlarged with a 4mm punch. Th e proximal anastomosis was then constructed with running 6-0 Prolene. Attention was now directed to the INFERIOR WALL and the PDA was identified. The artery was opened with a blade, and the arteriotomy was enlarged with White scissors. Using running 7- 0 monofilament an end-to-side anastomosis between the saphenous vein and the PDA was constru cted. The vein graft was brought around the right side of the heart and cut to length. A sm all opening was made in the ascending aorta with a #11 blade and enlarged with a 4mm punch. The proximal anastomosis was then constructed with running 6-0 Prolene. The LAD was identified, opened with a blade, and the arteriotomy enlarged with White scisso rs. The pericardium along the left side of the heart was slit to allow the pedicle to lie f lat along the mediastinum. Using running 7-0 monofilament, an end-to-side anastomosis betw een the left internal mammary artery and the LAD was constructed. De-airing maneuvers were carried out and the cross-clamp was removed. Ventricular pacing wi res were placed. The DLP cannula was removed. After MADHURI confirmed no air in the left side, the patient was from cardiopulmonary bypass, the venous return cannula removed, pr otamine administered, and the aortic cannula was removed. Chest drains were placed, and a careful check for hemostasis was made. The sternum was approximated with multiple wires, the soft tissue overlaying the sternum wa s closed with multiple layers of absorbable suture, and a sterile dressing was applied. Low er extremity incisions were closed with absorbable suture. At the conclusion of the case, a ll sponge and needle counts were correct x 2. The patient tolerated the procedure well and postoperatively, he was taken to the surgical intensive care unit. Electronically signed Narendra Lunsford MD, FACS, FACC [employer], Department of Surgery Head, Adult Cardiac Surgery Co-Director, Multidisciplinary [facility] | [email or web address] oseph Lewis - 013 12:50 PM PST Cardiothoracic Surgery Progress Note Past 24 hour Events TTE yesterday, demonstratin. The left ventricular cavity size is normal. 2. The LV systolic function is mildly to moderately decreased. 3. Visually estimated left ventricular ejection fraction is 40 - 45%. 4. Entire apex remains akinetic/dyskinetic. Small mural LV thrombus seen at apex. Other wal l segments have subjectively improved compared to prior study Subjective "I'm good at sports" Denies chest pain or SOB Objective: Last Vitals: BP 91/40 | Pulse 52 | Temp 36.7 C (98.1 F) | RR 22 | Ht 1.88 m (6' 2") | W t 149.6 kg (329 lb 12.9 oz) | SpO2 94% | BMI 42.34 kg/(m^2) Intake/Output Summary (Last 24 hours) at 11/28/12 1250 Last data filed at 11/28/12 1100 Gross per 24 hour Intake 1790.3 ml Output 2130 ml Net -339.7 ml Tele: sinus nohemy s1-s2 RRR CTA bilateral Obese, soft, non-tender No peripheral edema Chemistries: Last 72 Hours (or 3 results): Recent Labs Basename 11/28/12 0615 11/26/121954 NA 140 145 K 4.3 4.4 CL 109* 109* BICARB 21 27 BUN 44* 50* CR 2.21* 2.45* CA 8.9 9.0 MG -- -- PO4 3.5 4.1 CBC with diff last 72 hours (or 3 results) Recent Labs Basename 11/28/12 0615 11/27/12 0309 11/26/121954 WBC 7.1 7.8 7.2 HB 13.2* 12.8* 13.4* HCT 38.4* 38.3* 38.7* PLT 188 180 206 NEUTROPERC -- -- 64 BANDPCT -- -- -- LYMPHPERC -- -- 23 MONOPERC -- -- 9* BASOPERC -- -- 1 EOSPERC -- -- 3 Heparin Level = 0.6 Assessment/Plan: 67 year old developmentally delayed gentleman with severe multivessel CAD and history of LV thrombus. Preadmitted to for heparin gtt as bridge for anticoagulation prior to OR on 3 for CABG Clinically stable, though asymptomatically bradycardiac-- will decrease metoprolol to 12.5 mg po bid Continue systemic heparinization for apical thrombus Creatinine slightly improved, continue to hold RICKIE-I and repeat BMP in AM prior to surgery NPO after midnight for planned CABG tomorrow (Electronically Signed) Joseph Lewis PA-C [facility] Cardiac Surgery Joseph Peres - 11/27/2012 11 :25 AM PSTTransthoracic echocardiogram completed. Final report to follow. Joseph Duvall - 11/27/2012 9 :58 AM PST Cardiothoracic Surgery Progress Note Hospital Day 2 Objective: Last Vitals: BP 129/76 | Pulse 53 | Temp 36.7 C (98.1 F) | RR 18 | Ht 1.88 m (6' 2") | Wt 149.6 kg (329 lb 12.9 oz) | SpO2 95% | BMI 42.34 kg/(m^2) Intake/Output Summary (Last 24 hours) at 11/27/12 0959 Last data filed at 11/27/12 0900 Gross per 24 hour Intake 1333 ml Output 1325 ml Net 8 ml Tele: Sinus/sinus nohemy s1-s2 RRR CTA bilateral Obese, soft, non-tender No peripheral edema Chemistries: Last 72 Hours (or 3 results): Recent Labs Basename 11/26/12 1955 NA 145 K 4.4 CL 109* BICARB 27 BUN 50* CR 2.45* CA 9.0 MG -- PO4 4.1 CBC with diff last 72 hours (or 3 results) Recent Labs Basename 11/27/12 0309 11/26/12 1955 WBC 7.8 7.2 HB 12.8* 13.4* HCT 38.3* 38.7* PLT 180 206 NEUTROPERC -- 64 BANDPCT -- -- LYMPHPERC -- 23 MONOPERC -- 9* BASOPERC -- 1 EOSPERC -- 3 Chest x-ray: 11/26/2012 Mild cardiomegaly as before. There is no pulmonary edema. There is no evidence for pneumonia. No pleural effusion is evident. No acute osseous abnormality is evident. Assessment/Plan: 67 year old developmentally delayed gentleman with severe multivessel CAD and history of LV thrombus. Preadmitted to for heparin gtt as bridge for anticoagulation prior to OR on 3 for CABG Severe multi-vessel CAD-- plan surgical revascularization later this week (Sean). Contin ue statin, asa, b-jessy Hx of LV thrombus-- no thrombus seen on most recent TTE 2 weeks ago. Continue heparin gtt , repeat heparin level this afternoon (goal 0.3-0.5).. Repeat TTE this AM Chronic Kidney Disease-- cr now 2.5 today. Discontinue lisinopril 5 mg. Repeat BMP in AM. Follow uop and e-lytes Hx of A-fib-- currently sinus/sinus nohemy-- continue amiodarone 400 mg daily (Electronically Signed) Joseph Lewis PA-C [facility] Cardiac Surgery documented in this encounter Plan of Treatment Not on filedocumented as of this encounter Procedures + +--------+ + + + | Procedure Name | Priori | Date/Time | Associated Diagnosis | Comments | | | ty | | | | + +--------+ + + + | TRANSFUSE RED CELLS, | Routin | 07/27/2016 | | | | LEUKOREDUCED | e | 7:56 PM | | | | | | PDT | | | + +--------+ + + + | PROCEDURE NOTE | Routin | 10/30/2015 | | Results for this | | | e | 11:23 PM | | procedure are in the | | | | PST | | results section. | + +--------+ + + + | PROCEDURE NOTE | Routin | 10/30/2015 | | Results for this | | | e | 11:23 PM | | procedure are in the | | | | PST | | results section. | + +--------+ + + + | PROCEDURE NOTE | Routin | 10/30/2015 | | Results for this | | | e | 11:23 PM | | procedure are in the | | | | PST | | results section. | + +--------+ + + + | PROCEDURE NOTE | Routin | 10/30/2015 | | Results for this | | | e | 11:23 PM | | procedure are in the | | | | PST | | results section. | + +--------+ + + + | ICU CENTRAL LINE | Routin | 10/30/2015 | | Results for this | | PLACEMENT WITH | e | 11:16 PM | | procedure are in the | | ULTRASOUND GUIDANCE | | PST | | results section. | + +--------+ + + + | PROCEDURE NOTE | Routin | 10/30/2015 | | Results for this | | | e | 11:07 PM | | procedure are in the | | | | PST | | results section. | + +--------+ + + + | OPERATION RECORD | | 12/28/2012 | | Results for this | | | | 1:54 PM | | procedure are in the | | | | PDT | | results section. | + +--------+ + + + | CAPILLARY BLOOD | Routin | 12/22/2012 | | Results for this | | GLUCOSE (NO CHG), | e | 5:55 PM | | procedure are in the | | POC | | PDT | | results section. | + +--------+ + + + | CAPILLARY BLOOD | Routin | 12/22/2012 | | Results for this | | GLUCOSE (NO CHG), | e | 9:45 AM | | procedure are in the | | POC | | PDT | | results section. | + +--------+ + + + | CBC ONLY | Urgent | 12/22/2012 | | Results for this | | | | 5:15 AM | | procedure are in the | | | | PDT | | results section. | + +--------+ + + + | HEPARIN, EITHER | Routin | 12/22/2012 | | Results for this | | STANDARD / LMW, | e | 5:15 AM | | procedure are in the | | BLOOD | | PDT | | results section. | + +--------+ + + + | INR | Urgent | 12/22/2012 | | Results for this | | | | 5:15 AM | | procedure are in the | | | | PDT | | results section. | + +--------+ + + + | RENAL FUNCTION SET | Urgent | 12/22/2012 | | Results for this | | (NA,K,CL,CO2,BUN,CRE | | 5:15 AM | | procedure are in the | | AT,GLUC,CA,PHOS,ALB | | PDT | | results section. | | ) | | | | | + +--------+ + + + | CBC ONLY | Urgent | 12/22/2012 | | Results for this | | | | 5:15 AM | | procedure are in the | | | | PDT | | results section. | + +--------+ + + + | CAPILLARY BLOOD | Routin | 12/21/2012 | | Results for this | | GLUCOSE (NO CHG), | e | 9:47 PM | | procedure are in the | | POC | | PDT | | results section. | + +--------+ + + + | CAPILLARY BLOOD | Routin | 12/21/2012 | | Results for this | | GLUCOSE (NO CHG), | e | 5:48 PM | | procedure are in the | | POC | | PDT | | results section. | + +--------+ + + + | CAPILLARY BLOOD | Routin | 12/21/2012 | | Results for this | | GLUCOSE (NO CHG), | e | 1:55 PM | | procedure are in the | | POC | | PDT | | results section. | + +--------+ + + + | CAPILLARY BLOOD | Routin | 12/21/2012 | | Results for this | | GLUCOSE (NO CHG), | e | 12:40 PM | | procedure are in the | | POC | | PDT | | results section. | + +--------+ + + + | HEPARIN, EITHER | Urgent | 12/21/2012 | | Results for this | | STANDARD / LMW, | | 6:22 AM | | procedure are in the | | BLOOD | | PDT | | results section. | + +--------+ + + + | INR | Routin | 12/21/2012 | | Results for this | | | e | 6:22 AM | | procedure are in the | | | | PDT | | results section. | + +--------+ + + + | RENAL FUNCTION SET | Routin | 12/21/2012 | | Results for this | | (NA,K,CL,CO2,BUN,CRE | e | 6:22 AM | | procedure are in the | | AT,GLUC,CA,PHOS,ALB | | PDT | | results section. | | ) | | | | | + +--------+ + + + | CAPILLARY BLOOD | Routin | 12/21/2012 | | Results for this | | GLUCOSE (NO CHG), | e | 5:59 AM | | procedure are in the | | POC | | PDT | | results section. | + +--------+ + + + | CAPILLARY BLOOD | Routin | 12/20/2012 | | Results for this | | GLUCOSE (NO CHG), | e | 11:58 PM | | procedure are in the | | POC | | PDT | | results section. | + +--------+ + + + | CAPILLARY BLOOD | Routin | 12/20/2012 | | Results for this | | GLUCOSE (NO CHG), | e | 5:58 PM | | procedure are in the | | POC | | PDT | | results section. | + +--------+ + + + | CBC ONLY | Routin | 12/20/2012 | | Results for this | | | e | 1:24 PM | | procedure are in the | | | | PDT | | results section. | + +--------+ + + + | CBC ONLY | Routin | 12/20/2012 | | Results for this | | | e | 1:24 PM | | procedure are in the | | | | PDT | | results section. | + +--------+ + + + | CAPILLARY BLOOD | Routin | 12/20/2012 | | Results for this | | GLUCOSE (NO CHG), | e | 12:30 PM | | procedure are in the | | POC | | PDT | | results section. | + +--------+ + + + | CAPILLARY BLOOD | Routin | 12/20/2012 | | Results for this | | GLUCOSE (NO CHG), | e | 6:54 AM | | procedure are in the | | POC | | PDT | | results section. | + +--------+ + + + | HEPARIN, EITHER | Routin | 12/20/2012 | | Results for this | | STANDARD / LMW, | e | 6:03 AM | | procedure are in the | | BLOOD | | PDT | | results section. | + +--------+ + + + | INR | Urgent | 12/20/2012 | | Results for this | | | | 6:03 AM | | procedure are in the | | | | PDT | | results section. | + +--------+ + + + | RENAL FUNCTION SET | Urgent | 12/20/2012 | | Results for this | | (NA,K,CL,CO2,BUN,CRE | | 6:03 AM | | procedure are in the | | AT,GLUC,CA,PHOS,ALB | | PDT | | results section. | | ) | | | | | + +--------+ + + + | CAPILLARY BLOOD | Routin | 12/20/2012 | | Results for this | | GLUCOSE (NO CHG), | e | 12:01 AM | | procedure are in the | | POC | | PDT | | results section. | + +--------+ + + + | CAPILLARY BLOOD | Routin | 12/19/2012 | | Results for this | | GLUCOSE (NO CHG), | e | 5:05 PM | | procedure are in the | | POC | | PDT | | results section. | + +--------+ + + + | HEPARIN, EITHER | Urgent | 12/19/2012 | | Results for this | | STANDARD / LMW, | | 3:01 PM | | procedure are in the | | BLOOD | | PDT | | results section. | + +--------+ + + + | CAPILLARY BLOOD | Routin | 12/19/2012 | | Results for this | | GLUCOSE (NO CHG), | e | 12:41 PM | | procedure are in the | | POC | | PDT | | results section. | + +--------+ + + + | CAPILLARY BLOOD | Routin | 12/19/2012 | | Results for this | | GLUCOSE (NO CHG), | e | 7:54 AM | | procedure are in the | | POC | | PDT | | results section. | + +--------+ + + + | X-RAY PORTABLE CHEST | Routin | 12/19/2012 | | Results for this | | 1 VIEW | e | 6:46 AM | | procedure are in the | | | | PDT | | results section. | + +--------+ + + + | CBC ONLY | Urgent | 12/19/2012 | | Results for this | | | | 6:18 AM | | procedure are in the | | | | PDT | | results section. | + +--------+ + + + | CBC ONLY | Urgent | 12/19/2012 | | Results for this | | | | 6:18 AM | | procedure are in the | | | | PDT | | results section. | + +--------+ + + + | CAPILLARY BLOOD | Routin | 12/19/2012 | | Results for this | | GLUCOSE (NO CHG), | e | 5:19 AM | | procedure are in the | | POC | | PDT | | results section. | + +--------+ + + + | HEPARIN, EITHER | Urgent | 12/19/2012 | | Results for this | | STANDARD / LMW, | | 5:03 AM | | procedure are in the | | BLOOD | | PDT | | results section. | + +--------+ + + + | HEPATITIS C | Routin | 12/19/2012 | | Results for this | | QUANTITATIVE, PLASMA | e | 5:03 AM | | procedure are in the | | | | PDT | | results section. | + +--------+ + + + | INR | Urgent | 12/19/2012 | | Results for this | | | | 5:03 AM | | procedure are in the | | | | PDT | | results section. | + +--------+ + + + | RENAL FUNCTION SET | Urgent | 12/19/2012 | | Results for this | | (NA,K,CL,CO2,BUN,CRE | | 5:03 AM | | procedure are in the | | AT,GLUC,CA,PHOS,ALB | | PDT | | results section. | | ) | | | | | + +--------+ + + + | HEPATITIS B SURFACE | Routin | 12/19/2012 | | Results for this | | AB QUAL, SERUM | e | 5:03 AM | | procedure are in the | | | | PDT | | results section. | + +--------+ + + + | MAGNESIUM, PLASMA | Urgent | 12/19/2012 | | Results for this | | | | 5:03 AM | | procedure are in the | | | | PDT | | results section. | + +--------+ + + + | CAPILLARY BLOOD | Routin | 12/18/2012 | | Results for this | | GLUCOSE (NO CHG), | e | 10:52 PM | | procedure are in the | | POC | | PDT | | results section. | + +--------+ + + + | CAPILLARY BLOOD | Routin | 12/18/2012 | | Results for this | | GLUCOSE (NO CHG), | e | 5:17 PM | | procedure are in the | | POC | | PDT | | results section. | + +--------+ + + + | CAPILLARY BLOOD | Routin | 12/18/2012 | | Results for this | | GLUCOSE (NO CHG), | e | 12:12 PM | | procedure are in the | | POC | | PDT | | results section. | + +--------+ + + + | CAPILLARY BLOOD | Routin | 12/18/2012 | | Results for this | | GLUCOSE (NO CHG), | e | 9:27 AM | | procedure are in the | | POC | | PDT | | results section. | + +--------+ + + + | X-RAY PORTABLE CHEST | Routin | 12/18/2012 | | Results for this | | 1 VIEW | e | 6:39 AM | | procedure are in the | | | | PDT | | results section. | + +--------+ + + + | CBC ONLY | Urgent | 12/18/2012 | | Results for this | | | | 4:43 AM | | procedure are in the | | | | PDT | | results section. | + +--------+ + + + | HEPARIN, EITHER | Urgent | 12/18/2012 | | Results for this | | STANDARD / LMW, | | 4:43 AM | | procedure are in the | | BLOOD | | PDT | | results section. | + +--------+ + + + | INR | Urgent | 12/18/2012 | | Results for this | | | | 4:43 AM | | procedure are in the | | | | PDT | | results section. | + +--------+ + + + | RENAL FUNCTION SET | Urgent | 12/18/2012 | | Results for this | | (NA,K,CL,CO2,BUN,CRE | | 4:43 AM | | procedure are in the | | AT,GLUC,CA,PHOS,ALB | | PDT | | results section. | | ) | | | | | + +--------+ + + + | CBC ONLY | Urgent | 12/18/2012 | | Results for this | | | | 4:43 AM | | procedure are in the | | | | PDT | | results section. | + +--------+ + + + | MAGNESIUM, PLASMA | Urgent | 12/18/2012 | | Results for this | | | | 4:43 AM | | procedure are in the | | | | PDT | | results section. | + +--------+ + + + | CAPILLARY BLOOD | Routin | 12/18/2012 | | Results for this | | GLUCOSE (NO CHG), | e | 2:01 AM | | procedure are in the | | POC | | PDT | | results section. | + +--------+ + + + | CAPILLARY BLOOD | Routin | 12/17/2012 | | Results for this | | GLUCOSE (NO CHG), | e | 9:15 PM | | procedure are in the | | POC | | PDT | | results section. | + +--------+ + + + | CAPILLARY BLOOD | Routin | 12/17/2012 | | Results for this | | GLUCOSE (NO CHG), | e | 4:45 PM | | procedure are in the | | POC | | PDT | | results section. | + +--------+ + + + | CAPILLARY BLOOD | Routin | 12/17/2012 | | Results for this | | GLUCOSE (NO CHG), | e | 12:40 PM | | procedure are in the | | POC | | PDT | | results section. | + +--------+ + + + | X-RAY PORTABLE CHEST | Routin | 12/17/2012 | | Results for this | | 1 VIEW | e | 7:17 AM | | procedure are in the | | | | PDT | | results section. | + +--------+ + + + | CBC ONLY | Urgent | 12/17/2012 | | Results for this | | | | 5:29 AM | | procedure are in the | | | | PDT | | results section. | + +--------+ + + + | INR | Urgent | 12/17/2012 | | Results for this | | | | 5:29 AM | | procedure are in the | | | | PDT | | results section. | + +--------+ + + + | RENAL FUNCTION SET | Urgent | 12/17/2012 | | Results for this | | (NA,K,CL,CO2,BUN,CRE | | 5:29 AM | | procedure are in the | | AT,GLUC,CA,PHOS,ALB | | PDT | | results section. | | ) | | | | | + +--------+ + + + | CBC ONLY | Urgent | 12/17/2012 | | Results for this | | | | 5:29 AM | | procedure are in the | | | | PDT | | results section. | + +--------+ + + + | MAGNESIUM, PLASMA | Urgent | 12/17/2012 | | Results for this | | | | 5:29 AM | | procedure are in the | | | | PDT | | results section. | + +--------+ + + + | CAPILLARY BLOOD | Routin | 12/16/2012 | | Results for this | | GLUCOSE (NO CHG), | e | 9:34 PM | | procedure are in the | | POC | | PDT | | results section. | + +--------+ + + + | CAPILLARY BLOOD | Routin | 12/16/2012 | | Results for this | | GLUCOSE (NO CHG), | e | 7:10 PM | | procedure are in the | | POC | | PDT | | results section. | + +--------+ + + + | CAPILLARY BLOOD | Routin | 12/16/2012 | | Results for this | | GLUCOSE (NO CHG), | e | 12:08 PM | | procedure are in the | | POC | | PDT | | results section. | + +--------+ + + + | CAPILLARY BLOOD | Routin | 12/16/2012 | | Results for this | | GLUCOSE (NO CHG), | e | 8:17 AM | | procedure are in the | | POC | | PDT | | results section. | + +--------+ + + + | X-RAY PORTABLE CHEST | Routin | 12/16/2012 | | Results for this | | 1 VIEW | e | 7:07 AM | | procedure are in the | | | | PDT | | results section. | + +--------+ + + + | CBC ONLY | Urgent | 12/16/2012 | | Results for this | | | | 5:20 AM | | procedure are in the | | | | PDT | | results section. | + +--------+ + + + | HEPARIN, EITHER | Urgent | 12/16/2012 | | Results for this | | STANDARD / LMW, | | 5:20 AM | | procedure are in the | | BLOOD | | PDT | | results section. | + +--------+ + + + | INR | Urgent | 12/16/2012 | | Results for this | | | | 5:20 AM | | procedure are in the | | | | PDT | | results section. | + +--------+ + + + | RENAL FUNCTION SET | Urgent | 12/16/2012 | | Results for this | | (NA,K,CL,CO2,BUN,CRE | | 5:20 AM | | procedure are in the | | AT,GLUC,CA,PHOS,ALB | | PDT | | results section. | | ) | | | | | + +--------+ + + + | CBC ONLY | Urgent | 12/16/2012 | | Results for this | | | | 5:20 AM | | procedure are in the | | | | PDT | | results section. | + +--------+ + + + | MAGNESIUM, PLASMA | Urgent | 12/16/2012 | | Results for this | | | | 5:20 AM | | procedure are in the | | | | PDT | | results section. | + +--------+ + + + | CAPILLARY BLOOD | Routin | 12/16/2012 | | Results for this | | GLUCOSE (NO CHG), | e | 1:55 AM | | procedure are in the | | POC | | PDT | | results section. | + +--------+ + + + | CAPILLARY BLOOD | Routin | 12/15/2012 | | Results for this | | GLUCOSE (NO CHG), | e | 10:43 PM | | procedure are in the | | POC | | PDT | | results section. | + +--------+ + + + | ATIII ACTIVITY, | Urgent | 12/15/2012 | | Results for this | | PLASMA | | 6:50 PM | | procedure are in the | | | | PDT | | results section. | + +--------+ + + + | CAPILLARY BLOOD | Routin | 12/15/2012 | | Results for this | | GLUCOSE (NO CHG), | e | 5:04 PM | | procedure are in the | | POC | | PDT | | results section. | + +--------+ + + + | HEPARIN, EITHER | Urgent | 12/15/2012 | | Results for this | | STANDARD / LMW, | | 1:22 PM | | procedure are in the | | BLOOD | | PDT | | results section. | + +--------+ + + + | CAPILLARY BLOOD | Routin | 12/15/2012 | | Results for this | | GLUCOSE (NO CHG), | e | 11:30 AM | | procedure are in the | | POC | | PDT | | results section. | + +--------+ + + + | HEPARIN, EITHER | Urgent | 12/15/2012 | | Results for this | | STANDARD / LMW, | | 11:24 AM | | procedure are in the | | BLOOD | | PDT | | results section. | + +--------+ + + + | CAPILLARY BLOOD | Routin | 12/15/2012 | | Results for this | | GLUCOSE (NO CHG), | e | 7:36 AM | | procedure are in the | | POC | | PDT | | results section. | + +--------+ + + + | X-RAY PORTABLE CHEST | Routin | 12/15/2012 | | Results for this | | 1 VIEW | e | 5:51 AM | | procedure are in the | | | | PDT | | results section. | + +--------+ + + + | HEPARIN, EITHER | Urgent | 12/15/2012 | | Results for this | | STANDARD / LMW, | | 5:26 AM | | procedure are in the | | BLOOD | | PDT | | results section. | + +--------+ + + + | INR | Urgent | 12/15/2012 | | Results for this | | | | 5:26 AM | | procedure are in the | | | | PDT | | results section. | + +--------+ + + + | CBC ONLY | Urgent | 12/15/2012 | | Results for this | | | | 5:25 AM | | procedure are in the | | | | PDT | | results section. | + +--------+ + + + | RENAL FUNCTION SET | Urgent | 12/15/2012 | | Results for this | | (NA,K,CL,CO2,BUN,CRE | | 5:25 AM | | procedure are in the | | AT,GLUC,CA,PHOS,ALB | | PDT | | results section. | | ) | | | | | + +--------+ + + + | CBC ONLY | Urgent | 12/15/2012 | | Results for this | | | | 5:25 AM | | procedure are in the | | | | PDT | | results section. | + +--------+ + + + | MAGNESIUM, PLASMA | Urgent | 12/15/2012 | | Results for this | | | | 5:25 AM | | procedure are in the | | | | PDT | | results section. | + +--------+ + + + | CAPILLARY BLOOD | Routin | 12/15/2012 | | Results for this | | GLUCOSE (NO CHG), | e | 1:47 AM | | procedure are in the | | POC | | PDT | | results section. | + +--------+ + + + | CAPILLARY BLOOD | Routin | 12/14/2012 | | Results for this | | GLUCOSE (NO CHG), | e | 10:34 PM | | procedure are in the | | POC | | PDT | | results section. | + +--------+ + + + | HEPARIN, EITHER | Urgent | 12/14/2012 | | Results for this | | STANDARD / LMW, | | 7:55 PM | | procedure are in the | | BLOOD | | PDT | | results section. | + +--------+ + + + | CAPILLARY BLOOD | Routin | 12/14/2012 | | Results for this | | GLUCOSE (NO CHG), | e | 4:49 PM | | procedure are in the | | POC | | PDT | | results section. | + +--------+ + + + | HEPATITIS B SURFACE | Urgent | 12/14/2012 | | Results for this | | AG, SERUM | | 2:41 PM | | procedure are in the | | | | PDT | | results section. | + +--------+ + + + | CAPILLARY BLOOD | Routin | 12/14/2012 | | Results for this | | GLUCOSE (NO CHG), | e | 2:21 PM | | procedure are in the | | POC | | PDT | | results section. | + +--------+ + + + | CO-OXIMETER PANEL, | Urgent | 12/14/2012 | | Results for this | | BLOOD | | 12:37 PM | | procedure are in the | | | | PDT | | results section. | + +--------+ + + + | CAPILLARY BLOOD | Routin | 12/14/2012 | | Results for this | | GLUCOSE (NO CHG), | e | 12:11 PM | | procedure are in the | | POC | | PDT | | results section. | + +--------+ + + + | CAPILLARY BLOOD | Routin | 12/14/2012 | | Results for this | | GLUCOSE (NO CHG), | e | 10:23 AM | | procedure are in the | | POC | | PDT | | results section. | + +--------+ + + + | CAPILLARY BLOOD | Routin | 12/14/2012 | | Results for this | | GLUCOSE (NO CHG), | e | 8:05 AM | | procedure are in the | | POC | | PDT | | results section. | + +--------+ + + + | CAPILLARY BLOOD | Routin | 12/14/2012 | | Results for this | | GLUCOSE (NO CHG), | e | 6:56 AM | | procedure are in the | | POC | | PDT | | results section. | + +--------+ + + + | X-RAY PORTABLE CHEST | Routin | 12/14/2012 | | Results for this | | 1 VIEW | e | 5:32 AM | | procedure are in the | | | | PDT | | results section. | + +--------+ + + + | CAPILLARY BLOOD | Routin | 12/14/2012 | | Results for this | | GLUCOSE (NO CHG), | e | 4:37 AM | | procedure are in the | | POC | | PDT | | results section. | + +--------+ + + + | CAPILLARY BLOOD | Routin | 12/14/2012 | | Results for this | | GLUCOSE (NO CHG), | e | 2:12 AM | | procedure are in the | | POC | | PDT | | results section. | + +--------+ + + + | CBC ONLY | Urgent | 12/14/2012 | | Results for this | | | | 2:00 AM | | procedure are in the | | | | PDT | | results section. | + +--------+ + + + | INR | Routin | 12/14/2012 | | Results for this | | | e | 2:00 AM | | procedure are in the | | | | PDT | | results section. | + +--------+ + + + | RENAL FUNCTION SET | Urgent | 12/14/2012 | | Results for this | | (NA,K,CL,CO2,BUN,CRE | | 2:00 AM | | procedure are in the | | AT,GLUC,CA,PHOS,ALB | | PDT | | results section. | | ) | | | | | + +--------+ + + + | CBC ONLY | Urgent | 12/14/2012 | | Results for this | | | | 2:00 AM | | procedure are in the | | | | PDT | | results section. | + +--------+ + + + | MAGNESIUM, PLASMA | Urgent | 12/14/2012 | | Results for this | | | | 2:00 AM | | procedure are in the | | | | PDT | | results section. | + +--------+ + + + | CAPILLARY BLOOD | Routin | 12/14/2012 | | Results for this | | GLUCOSE (NO CHG), | e | 12:01 AM | | procedure are in the | | POC | | PDT | | results section. | + +--------+ + + + | CAPILLARY BLOOD | Routin | 12/13/2012 | | Results for this | | GLUCOSE (NO CHG), | e | 10:26 PM | | procedure are in the | | POC | | PDT | | results section. | + +--------+ + + + | CAPILLARY BLOOD | Routin | 12/13/2012 | | Results for this | | GLUCOSE (NO CHG), | e | 7:47 PM | | procedure are in the | | POC | | PDT | | results section. | + +--------+ + + + | CAPILLARY BLOOD | Routin | 12/13/2012 | | Results for this | | GLUCOSE (NO CHG), | e | 6:32 PM | | procedure are in the | | POC | | PDT | | results section. | + +--------+ + + + | CAPILLARY BLOOD | Routin | 12/13/2012 | | Results for this | | GLUCOSE (NO CHG), | e | 5:34 PM | | procedure are in the | | POC | | PDT | | results section. | + +--------+ + + + | CAPILLARY BLOOD | Routin | 12/13/2012 | | Results for this | | GLUCOSE (NO CHG), | e | 4:37 PM | | procedure are in the | | POC | | PDT | | results section. | + +--------+ + + + | CBC ONLY | Urgent | 12/13/2012 | | Results for this | | | | 4:25 PM | | procedure are in the | | | | PDT | | results section. | + +--------+ + + + | RENAL FUNCTION SET | Urgent | 12/13/2012 | | Results for this | | (NA,K,CL,CO2,BUN,CRE | | 4:25 PM | | procedure are in the | | AT,GLUC,CA,PHOS,ALB | | PDT | | results section. | | ) | | | | | + +--------+ + + + | CBC ONLY | Urgent | 12/13/2012 | | Results for this | | | | 4:25 PM | | procedure are in the | | | | PDT | | results section. | + +--------+ + + + | CAPILLARY BLOOD | Routin | 12/13/2012 | | Results for this | | GLUCOSE (NO CHG), | e | 12:39 PM | | procedure are in the | | POC | | PDT | | results section. | + +--------+ + + + | HEPARIN, EITHER | Urgent | 12/13/2012 | | Results for this | | STANDARD / LMW, | | 9:46 AM | | procedure are in the | | BLOOD | | PDT | | results section. | + +--------+ + + + | INR | Urgent | 12/13/2012 | | Results for this | | | | 9:46 AM | | procedure are in the | | | | PDT | | results section. | + +--------+ + + + | CAPILLARY BLOOD | Routin | 12/13/2012 | | Results for this | | GLUCOSE (NO CHG), | e | 8:18 AM | | procedure are in the | | POC | | PDT | | results section. | + +--------+ + + + | X-RAY PORTABLE CHEST | Routin | 12/13/2012 | | Results for this | | 1 VIEW | e | 5:36 AM | | procedure are in the | | | | PDT | | results section. | + +--------+ + + + | CAPILLARY BLOOD | Routin | 12/13/2012 | | Results for this | | GLUCOSE (NO CHG), | e | 5:25 AM | | procedure are in the | | POC | | PDT | | results section. | + +--------+ + + + | CBC ONLY | Urgent | 12/13/2012 | | Results for this | | | | 3:30 AM | | procedure are in the | | | | PDT | | results section. | + +--------+ + + + | HEPARIN, EITHER | Urgent | 12/13/2012 | | Results for this | | STANDARD / LMW, | | 3:30 AM | | procedure are in the | | BLOOD | | PDT | | results section. | + +--------+ + + + | INR | Routin | 12/13/2012 | | Results for this | | | e | 3:30 AM | | procedure are in the | | | | PDT | | results section. | + +--------+ + + + | RENAL FUNCTION SET | Urgent | 12/13/2012 | | Results for this | | (NA,K,CL,CO2,BUN,CRE | | 3:30 AM | | procedure are in the | | AT,GLUC,CA,PHOS,ALB | | PDT | | results section. | | ) | | | | | + +--------+ + + + | CBC ONLY | Urgent | 12/13/2012 | | Results for this | | | | 3:30 AM | | procedure are in the | | | | PDT | | results section. | + +--------+ + + + | MAGNESIUM, PLASMA | Urgent | 12/13/2012 | | Results for this | | | | 3:30 AM | | procedure are in the | | | | PDT | | results section. | + +--------+ + + + | CAPILLARY BLOOD | Routin | 12/13/2012 | | Results for this | | GLUCOSE (NO CHG), | e | 3:22 AM | | procedure are in the | | POC | | PDT | | results section. | + +--------+ + + + | CAPILLARY BLOOD | Routin | 12/13/2012 | | Results for this | | GLUCOSE (NO CHG), | e | 1:16 AM | | procedure are in the | | POC | | PDT | | results section. | + +--------+ + + + | TRANSTHORACIC | Routin | 12/13/2012 | | Results for this | | ECHOCARDIOGRAM, | e | 12:00 AM | | procedure are in the | | ADULT | | PDT | | results section. | + +--------+ + + + | CAPILLARY BLOOD | Routin | 12/12/2012 | | Results for this | | GLUCOSE (NO CHG), | e | 11:40 PM | | procedure are in the | | POC | | PDT | | results section. | + +--------+ + + + | CAPILLARY BLOOD | Routin | 12/12/2012 | | Results for this | | GLUCOSE (NO CHG), | e | 9:59 PM | | procedure are in the | | POC | | PDT | | results section. | + +--------+ + + + | CAPILLARY BLOOD | Routin | 12/12/2012 | | Results for this | | GLUCOSE (NO CHG), | e | 8:31 PM | | procedure are in the | | POC | | PDT | | results section. | + +--------+ + + + | HEPARIN, EITHER | Urgent | 12/12/2012 | | Results for this | | STANDARD / LMW, | | 8:21 PM | | procedure are in the | | BLOOD | | PDT | | results section. | + +--------+ + + + | CAPILLARY BLOOD | Routin | 12/12/2012 | | Results for this | | GLUCOSE (NO CHG), | e | 7:03 PM | | procedure are in the | | POC | | PDT | | results section. | + +--------+ + + + | X-RAY ABD LTD | Routin | 12/12/2012 | | Results for this | | FEEDING TUBE EVAL | e | 5:26 PM | | procedure are in the | | | | PDT | | results section. | + +--------+ + + + | RENAL FUNCTION SET | Urgent | 12/12/2012 | | Results for this | | (NA,K,CL,CO2,BUN,CRE | | 4:51 PM | | procedure are in the | | AT,GLUC,CA,PHOS,ALB | | PDT | | results section. | | ) | | | | | + +--------+ + + + | INR | Routin | 12/12/2012 | | Results for this | | | e | 4:50 PM | | procedure are in the | | | | PDT | | results section. | + +--------+ + + + | CAPILLARY BLOOD | Routin | 12/12/2012 | | Results for this | | GLUCOSE (NO CHG), | e | 4:30 PM | | procedure are in the | | POC | | PDT | | results section. | + +--------+ + + + | CAPILLARY BLOOD | Routin | 12/12/2012 | | Results for this | | GLUCOSE (NO CHG), | e | 1:22 PM | | procedure are in the | | POC | | PDT | | results section. | + +--------+ + + + | HEPARIN, EITHER | Urgent | 12/12/2012 | | Results for this | | STANDARD / LMW, | | 1:19 PM | | procedure are in the | | BLOOD | | PDT | | results section. | + +--------+ + + + | CAPILLARY BLOOD | Routin | 12/12/2012 | | Results for this | | GLUCOSE (NO CHG), | e | 11:32 AM | | procedure are in the | | POC | | PDT | | results section. | + +--------+ + + + | CAPILLARY BLOOD | Routin | 12/12/2012 | | Results for this | | GLUCOSE (NO CHG), | e | 9:57 AM | | procedure are in the | | POC | | PDT | | results section. | + +--------+ + + + | CAPILLARY BLOOD | Routin | 12/12/2012 | | Results for this | | GLUCOSE (NO CHG), | e | 8:28 AM | | procedure are in the | | POC | | PDT | | results section. | + +--------+ + + + | RENAL FUNCTION SET | Urgent | 12/12/2012 | | Results for this | | (NA,K,CL,CO2,BUN,CRE | | 8:19 AM | | procedure are in the | | AT,GLUC,CA,PHOS,ALB | | PDT | | results section. | | ) | | | | | + +--------+ + + + | BLOOD GASES, | Urgent | 12/12/2012 | | Results for this | | ARTERIAL - LAB | | 8:19 AM | | procedure are in the | | | | PDT | | results section. | + +--------+ + + + | MAGNESIUM, PLASMA | Urgent | 12/12/2012 | | Results for this | | | | 8:19 AM | | procedure are in the | | | | PDT | | results section. | + +--------+ + + + | CAPILLARY BLOOD | Routin | 12/12/2012 | | Results for this | | GLUCOSE (NO CHG), | e | 6:59 AM | | procedure are in the | | POC | | PDT | | results section. | + +--------+ + + + | CAPILLARY BLOOD | Routin | 12/12/2012 | | Results for this | | GLUCOSE (NO CHG), | e | 6:09 AM | | procedure are in the | | POC | | PDT | | results section. | + +--------+ + + + | X-RAY PORTABLE CHEST | Routin | 12/12/2012 | | Results for this | | 1 VIEW | e | 5:53 AM | | procedure are in the | | | | PDT | | results section. | + +--------+ + + + | CBC AND AUTO DIFF | Urgent | 12/12/2012 | | Results for this | | | | 4:00 AM | | procedure are in the | | | | PDT | | results section. | + +--------+ + + + | HEPARIN, EITHER | Urgent | 12/12/2012 | | Results for this | | STANDARD / LMW, | | 4:00 AM | | procedure are in the | | BLOOD | | PDT | | results section. | + +--------+ + + + | MANUAL DIFFERENTIAL | Routin | 12/12/2012 | | Results for this | | | e | 4:00 AM | | procedure are in the | | | | PDT | | results section. | + +--------+ + + + | CBC, WITH | Urgent | 12/12/2012 | | Results for this | | DIFFERENTIAL | | 4:00 AM | | procedure are in the | | | | PDT | | results section. | + +--------+ + + + | LIVER SET | Urgent | 12/12/2012 | | Results for this | | (AST,ALT,BILI | | 4:00 AM | | procedure are in the | | TOTAL,BILI | | PDT | | results section. | | DIRECT,ALK | | | | | | PHOS,ALB,PROT TOTAL) | | | | | + +--------+ + + + | RENAL FUNCTION SET | Urgent | 12/12/2012 | | Results for this | | (NA,K,CL,CO2,BUN,CRE | | 4:00 AM | | procedure are in the | | AT,GLUC,CA,PHOS,ALB | | PDT | | results section. | | ) | | | | | + +--------+ + + + | CALCIUM, IONIZED, | Urgent | 12/12/2012 | | Results for this | | WHOLE BLOOD | | 4:00 AM | | procedure are in the | | | | PDT | | results section. | + +--------+ + + + | BLOOD GASES, | Urgent | 12/12/2012 | | Results for this | | ARTERIAL - LAB | | 4:00 AM | | procedure are in the | | | | PDT | | results section. | + +--------+ + + + | MAGNESIUM, PLASMA | Urgent | 12/12/2012 | | Results for this | | | | 4:00 AM | | procedure are in the | | | | PDT | | results section. | + +--------+ + + + | CAPILLARY BLOOD | Routin | 12/12/2012 | | Results for this | | GLUCOSE (NO CHG), | e | 3:57 AM | | procedure are in the | | POC | | PDT | | results section. | + +--------+ + + + | CAPILLARY BLOOD | Routin | 12/12/2012 | | Results for this | | GLUCOSE (NO CHG), | e | 3:06 AM | | procedure are in the | | POC | | PDT | | results section. | + +--------+ + + + | CAPILLARY BLOOD | Routin | 12/12/2012 | | Results for this | | GLUCOSE (NO CHG), | e | 2:11 AM | | procedure are in the | | POC | | PDT | | results section. | + +--------+ + + + | CAPILLARY BLOOD | Routin | 12/12/2012 | | Results for this | | GLUCOSE (NO CHG), | e | 1:01 AM | | procedure are in the | | POC | | PDT | | results section. | + +--------+ + + + | CAPILLARY BLOOD | Routin | 12/11/2012 | | Results for this | | GLUCOSE (NO CHG), | e | 11:59 PM | | procedure are in the | | POC | | PDT | | results section. | + +--------+ + + + | RENAL FUNCTION SET | Urgent | 12/11/2012 | | Results for this | | (NA,K,CL,CO2,BUN,CRE | | 11:59 PM | | procedure are in the | | AT,GLUC,CA,PHOS,ALB | | PDT | | results section. | | ) | | | | | + +--------+ + + + | BLOOD GASES, | Urgent | 12/11/2012 | | Results for this | | ARTERIAL - LAB | | 11:59 PM | | procedure are in the | | | | PDT | | results section. | + +--------+ + + + | MAGNESIUM, PLASMA | Urgent | 12/11/2012 | | Results for this | | | | 11:59 PM | | procedure are in the | | | | PDT | | results section. | + +--------+ + + + | CAPILLARY BLOOD | Routin | 12/11/2012 | | Results for this | | GLUCOSE (NO CHG), | e | 11:03 PM | | procedure are in the | | POC | | PDT | | results section. | + +--------+ + + + | HEPARIN, EITHER | Urgent | 12/11/2012 | | Results for this | | STANDARD / LMW, | | 10:00 PM | | procedure are in the | | BLOOD | | PDT | | results section. | + +--------+ + + + | CAPILLARY BLOOD | Routin | 12/11/2012 | | Results for this | | GLUCOSE (NO CHG), | e | 10:00 PM | | procedure are in the | | POC | | PDT | | results section. | + +--------+ + + + | CAPILLARY BLOOD | Routin | 12/11/2012 | | Results for this | | GLUCOSE (NO CHG), | e | 8:59 PM | | procedure are in the | | POC | | PDT | | results section. | + +--------+ + + + | CAPILLARY BLOOD | Routin | 12/11/2012 | | Results for this | | GLUCOSE (NO CHG), | e | 8:06 PM | | procedure are in the | | POC | | PDT | | results section. | + +--------+ + + + | RENAL FUNCTION SET | Urgent | 12/11/2012 | | Results for this | | (NA,K,CL,CO2,BUN,CRE | | 8:00 PM | | procedure are in the | | AT,GLUC,CA,PHOS,ALB | | PDT | | results section. | | ) | | | | | + +--------+ + + + | BLOOD GASES, | Urgent | 12/11/2012 | | Results for this | | ARTERIAL - LAB | | 8:00 PM | | procedure are in the | | | | PDT | | results section. | + +--------+ + + + | MAGNESIUM, PLASMA | Urgent | 12/11/2012 | | Results for this | | | | 8:00 PM | | procedure are in the | | | | PDT | | results section. | + +--------+ + + + | CAPILLARY BLOOD | Routin | 12/11/2012 | | Results for this | | GLUCOSE (NO CHG), | e | 7:01 PM | | procedure are in the | | POC | | PDT | | results section. | + +--------+ + + + | CAPILLARY BLOOD | Routin | 12/11/2012 | | Results for this | | GLUCOSE (NO CHG), | e | 6:05 PM | | procedure are in the | | POC | | PDT | | results section. | + +--------+ + + + | CAPILLARY BLOOD | Routin | 12/11/2012 | | Results for this | | GLUCOSE (NO CHG), | e | 4:53 PM | | procedure are in the | | POC | | PDT | | results section. | + +--------+ + + + | BLOOD GASES, | Urgent | 12/11/2012 | | Results for this | | ARTERIAL - LAB | | 4:47 PM | | procedure are in the | | | | PDT | | results section. | + +--------+ + + + | HEPARIN, EITHER | Urgent | 12/11/2012 | | Results for this | | STANDARD / LMW, | | 4:46 PM | | procedure are in the | | BLOOD | | PDT | | results section. | + +--------+ + + + | RENAL FUNCTION SET | Urgent | 12/11/2012 | | Results for this | | (NA,K,CL,CO2,BUN,CRE | | 4:46 PM | | procedure are in the | | AT,GLUC,CA,PHOS,ALB | | PDT | | results section. | | ) | | | | | + +--------+ + + + | MAGNESIUM, PLASMA | Urgent | 12/11/2012 | | Results for this | | | | 4:46 PM | | procedure are in the | | | | PDT | | results section. | + +--------+ + + + | CAPILLARY BLOOD | Routin | 12/11/2012 | | Results for this | | GLUCOSE (NO CHG), | e | 3:15 PM | | procedure are in the | | POC | | PDT | | results section. | + +--------+ + + + | CAPILLARY BLOOD | Routin | 12/11/2012 | | Results for this | | GLUCOSE (NO CHG), | e | 2:07 PM | | procedure are in the | | POC | | PDT | | results section. | + +--------+ + + + | CAPILLARY BLOOD | Routin | 12/11/2012 | | Results for this | | GLUCOSE (NO CHG), | e | 12:14 PM | | procedure are in the | | POC | | PDT | | results section. | + +--------+ + + + | RENAL FUNCTION SET | Urgent | 12/11/2012 | | Results for this | | (NA,K,CL,CO2,BUN,CRE | | 12:11 PM | | procedure are in the | | AT,GLUC,CA,PHOS,ALB | | PDT | | results section. | | ) | | | | | + +--------+ + + + | CALCIUM, IONIZED, | Urgent | 12/11/2012 | | Results for this | | WHOLE BLOOD | | 12:11 PM | | procedure are in the | | | | PDT | | results section. | + +--------+ + + + | BLOOD GASES, | Urgent | 12/11/2012 | | Results for this | | ARTERIAL - LAB | | 12:11 PM | | procedure are in the | | | | PDT | | results section. | + +--------+ + + + | MAGNESIUM, PLASMA | Urgent | 12/11/2012 | | Results for this | | | | 12:11 PM | | procedure are in the | | | | PDT | | results section. | + +--------+ + + + | CAPILLARY BLOOD | Routin | 12/11/2012 | | Results for this | | GLUCOSE (NO CHG), | e | 10:25 AM | | procedure are in the | | POC | | PDT | | results section. | + +--------+ + + + | HEPARIN, EITHER | Urgent | 12/11/2012 | | Results for this | | STANDARD / LMW, | | 10:20 AM | | procedure are in the | | BLOOD | | PDT | | results section. | + +--------+ + + + | CAPILLARY BLOOD | Routin | 12/11/2012 | | Results for this | | GLUCOSE (NO CHG), | e | 8:13 AM | | procedure are in the | | POC | | PDT | | results section. | + +--------+ + + + | CAPILLARY BLOOD | Routin | 12/11/2012 | | Results for this | | GLUCOSE (NO CHG), | e | 6:57 AM | | procedure are in the | | POC | | PDT | | results section. | + +--------+ + + + | ATIII ACTIVITY, | Urgent | 12/11/2012 | | Results for this | | PLASMA | | 6:54 AM | | procedure are in the | | | | PDT | | results section. | + +--------+ + + + | X-RAY PORTABLE CHEST | Routin | 12/11/2012 | | Results for this | | 1 VIEW | e | 6:00 AM | | procedure are in the | | | | PDT | | results section. | + +--------+ + + + | HEPARIN, EITHER | Urgent | 12/11/2012 | | Results for this | | STANDARD / LMW, | | 6:00 AM | | procedure are in the | | BLOOD | | PDT | | results section. | + +--------+ + + + | RENAL FUNCTION SET | Urgent | 12/11/2012 | | Results for this | | (NA,K,CL,CO2,BUN,CRE | | 6:00 AM | | procedure are in the | | AT,GLUC,CA,PHOS,ALB | | PDT | | results section. | | ) | | | | | + +--------+ + + + | BLOOD GASES, | Urgent | 12/11/2012 | | Results for this | | ARTERIAL - LAB | | 6:00 AM | | procedure are in the | | | | PDT | | results section. | + +--------+ + + + | MAGNESIUM, PLASMA | Urgent | 12/11/2012 | | Results for this | | | | 6:00 AM | | procedure are in the | | | | PDT | | results section. | + +--------+ + + + | CAPILLARY BLOOD | Routin | 12/11/2012 | | Results for this | | GLUCOSE (NO CHG), | e | 5:57 AM | | procedure are in the | | POC | | PDT | | results section. | + +--------+ + + + | CAPILLARY BLOOD | Routin | 12/11/2012 | | Results for this | | GLUCOSE (NO CHG), | e | 5:06 AM | | procedure are in the | | POC | | PDT | | results section. | + +--------+ + + + | CAPILLARY BLOOD | Routin | 12/11/2012 | | Results for this | | GLUCOSE (NO CHG), | e | 3:49 AM | | procedure are in the | | POC | | PDT | | results section. | + +--------+ + + + | CBC AND AUTO DIFF | Urgent | 12/11/2012 | | Results for this | | | | 2:00 AM | | procedure are in the | | | | PDT | | results section. | + +--------+ + + + | MANUAL DIFFERENTIAL | Routin | 12/11/2012 | | Results for this | | | e | 2:00 AM | | procedure are in the | | | | PDT | | results section. | + +--------+ + + + | CBC, WITH | Urgent | 12/11/2012 | | Results for this | | DIFFERENTIAL | | 2:00 AM | | procedure are in the | | | | PDT | | results section. | + +--------+ + + + | LIVER SET | Urgent | 12/11/2012 | | Results for this | | (AST,ALT,BILI | | 2:00 AM | | procedure are in the | | TOTAL,BILI | | PDT | | results section. | | DIRECT,ALK | | | | | | PHOS,ALB,PROT TOTAL) | | | | | + +--------+ + + + | RENAL FUNCTION SET | Urgent | 12/11/2012 | | Results for this | | (NA,K,CL,CO2,BUN,CRE | | 2:00 AM | | procedure are in the | | AT,GLUC,CA,PHOS,ALB | | PDT | | results section. | | ) | | | | | + +--------+ + + + | BLOOD GASES, | Urgent | 12/11/2012 | | Results for this | | ARTERIAL - LAB | | 2:00 AM | | procedure are in the | | | | PDT | | results section. | + +--------+ + + + | MAGNESIUM, PLASMA | Urgent | 12/11/2012 | | Results for this | | | | 2:00 AM | | procedure are in the | | | | PDT | | results section. | + +--------+ + + + | CAPILLARY BLOOD | Routin | 12/11/2012 | | Results for this | | GLUCOSE (NO CHG), | e | 1:59 AM | | procedure are in the | | POC | | PDT | | results section. | + +--------+ + + + | CAPILLARY BLOOD | Routin | 12/11/2012 | | Results for this | | GLUCOSE (NO CHG), | e | 1:08 AM | | procedure are in the | | POC | | PDT | | results section. | + +--------+ + + + | HEPARIN, EITHER | Urgent | 12/11/2012 | | Results for this | | STANDARD / LMW, | | 12:04 AM | | procedure are in the | | BLOOD | | PDT | | results section. | + +--------+ + + + | CAPILLARY BLOOD | Routin | 12/11/2012 | | Results for this | | GLUCOSE (NO CHG), | e | 12:02 AM | | procedure are in the | | POC | | PDT | | results section. | + +--------+ + + + | TRANSTHORACIC | Routin | 12/11/2012 | | Results for this | | ECHOCARDIOGRAM, | e | 12:00 AM | | procedure are in the | | ADULT | | PDT | | results section. | + +--------+ + + + | CAPILLARY BLOOD | Routin | 12/10/2012 | | Results for this | | GLUCOSE (NO CHG), | e | 11:30 PM | | procedure are in the | | POC | | PDT | | results section. | + +--------+ + + + | POTASSIUM, PLASMA | Urgent | 12/10/2012 | | Results for this | | | | 11:27 PM | | procedure are in the | | | | PDT | | results section. | + +--------+ + + + | CAPILLARY BLOOD | Routin | 12/10/2012 | | Results for this | | GLUCOSE (NO CHG), | e | 10:03 PM | | procedure are in the | | POC | | PDT | | results section. | + +--------+ + + + | RENAL FUNCTION SET | Urgent | 12/10/2012 | | Results for this | | (NA,K,CL,CO2,BUN,CRE | | 10:00 PM | | procedure are in the | | AT,GLUC,CA,PHOS,ALB | | PDT | | results section. | | ) | | | | | + +--------+ + + + | BLOOD GASES, | Urgent | 12/10/2012 | | Results for this | | ARTERIAL - LAB | | 10:00 PM | | procedure are in the | | | | PDT | | results section. | + +--------+ + + + | MAGNESIUM, PLASMA | Urgent | 12/10/2012 | | Results for this | | | | 10:00 PM | | procedure are in the | | | | PDT | | results section. | + +--------+ + + + | CAPILLARY BLOOD | Routin | 12/10/2012 | | Results for this | | GLUCOSE (NO CHG), | e | 9:18 PM | | procedure are in the | | POC | | PDT | | results section. | + +--------+ + + + | CAPILLARY BLOOD | Routin | 12/10/2012 | | Results for this | | GLUCOSE (NO CHG), | e | 8:21 PM | | procedure are in the | | POC | | PDT | | results section. | + +--------+ + + + | HEPARIN, EITHER | Urgent | 12/10/2012 | | Results for this | | STANDARD / LMW, | | 8:00 PM | | procedure are in the | | BLOOD | | PDT | | results section. | + +--------+ + + + | RENAL FUNCTION SET | Urgent | 12/10/2012 | | Results for this | | (NA,K,CL,CO2,BUN,CRE | | 8:00 PM | | procedure are in the | | AT,GLUC,CA,PHOS,ALB | | PDT | | results section. | | ) | | | | | + +--------+ + + + | CALCIUM, IONIZED, | Urgent | 12/10/2012 | | Results for this | | WHOLE BLOOD | | 8:00 PM | | procedure are in the | | | | PDT | | results section. | + +--------+ + + + | BLOOD GASES, | Urgent | 12/10/2012 | | Results for this | | ARTERIAL - LAB | | 8:00 PM | | procedure are in the | | | | PDT | | results section. | + +--------+ + + + | MAGNESIUM, PLASMA | Urgent | 12/10/2012 | | Results for this | | | | 8:00 PM | | procedure are in the | | | | PDT | | results section. | + +--------+ + + + | CAPILLARY BLOOD | Routin | 12/10/2012 | | Results for this | | GLUCOSE (NO CHG), | e | 5:50 PM | | procedure are in the | | POC | | PDT | | results section. | + +--------+ + + + | X-RAY PORTABLE CHEST | Routin | 12/10/2012 | | Results for this | | 1 VIEW | e | 5:27 PM | | procedure are in the | | | | PDT | | results section. | + +--------+ + + + | RENAL FUNCTION SET | Urgent | 12/10/2012 | | Results for this | | (NA,K,CL,CO2,BUN,CRE | | 5:21 PM | | procedure are in the | | AT,GLUC,CA,PHOS,ALB | | PDT | | results section. | | ) | | | | | + +--------+ + + + | CAPILLARY BLOOD | Routin | 12/10/2012 | | Results for this | | GLUCOSE (NO CHG), | e | 4:14 PM | | procedure are in the | | POC | | PDT | | results section. | + +--------+ + + + | IP CONSULT TO PICC | Routin | 12/10/2012 | | Results for this | | TEAM | e | 3:57 PM | | procedure are in the | | | | PDT | | results section. | + +--------+ + + + | X-RAY PORTABLE CHEST | Routin | 12/10/2012 | | Results for this | | PICC LINE | e | 2:21 PM | | procedure are in the | | CHECK | | PDT | | results section. | | | | | | | + +--------+ + + + | CAPILLARY BLOOD | Routin | 12/10/2012 | | Results for this | | GLUCOSE (NO CHG), | e | 1:02 PM | | procedure are in the | | POC | | PDT | | results section. | + +--------+ + + + | CAPILLARY BLOOD | Routin | 12/10/2012 | | Results for this | | GLUCOSE (NO CHG), | e | 11:23 AM | | procedure are in the | | POC | | PDT | | results section. | + +--------+ + + + | AMMONIA, PLASMA | Urgent | 12/10/2012 | | Results for this | | | | 11:11 AM | | procedure are in the | | | | PDT | | results section. | + +--------+ + + + | CAPILLARY BLOOD | Routin | 12/10/2012 | | Results for this | | GLUCOSE (NO CHG), | e | 9:36 AM | | procedure are in the | | POC | | PDT | | results section. | + +--------+ + + + | HEPARIN, EITHER | Urgent | 12/10/2012 | | Results for this | | STANDARD / LMW, | | 9:22 AM | | procedure are in the | | BLOOD | | PDT | | results section. | + +--------+ + + + | CAPILLARY BLOOD | Routin | 12/10/2012 | | Results for this | | GLUCOSE (NO CHG), | e | 7:04 AM | | procedure are in the | | POC | | PDT | | results section. | + +--------+ + + + | CAPILLARY BLOOD | Routin | 12/10/2012 | | Results for this | | GLUCOSE (NO CHG), | e | 6:03 AM | | procedure are in the | | POC | | PDT | | results section. | + +--------+ + + + | X-RAY PORTABLE CHEST | Routin | 12/10/2012 | | Results for this | | 1 VIEW | e | 5:41 AM | | procedure are in the | | | | PDT | | results section. | + +--------+ + + + | CAPILLARY BLOOD | Routin | 12/10/2012 | | Results for this | | GLUCOSE (NO CHG), | e | 4:36 AM | | procedure are in the | | POC | | PDT | | results section. | + +--------+ + + + | CAPILLARY BLOOD | Routin | 12/10/2012 | | Results for this | | GLUCOSE (NO CHG), | e | 3:10 AM | | procedure are in the | | POC | | PDT | | results section. | + +--------+ + + + | CAPILLARY BLOOD | Routin | 12/10/2012 | | Results for this | | GLUCOSE (NO CHG), | e | 2:10 AM | | procedure are in the | | POC | | PDT | | results section. | + +--------+ + + + | CBC AND AUTO DIFF | Urgent | 12/10/2012 | | Results for this | | | | 2:05 AM | | procedure are in the | | | | PDT | | results section. | + +--------+ + + + | MANUAL DIFFERENTIAL | Routin | 12/10/2012 | | Results for this | | | e | 2:05 AM | | procedure are in the | | | | PDT | | results section. | + +--------+ + + + | CBC, WITH | Urgent | 12/10/2012 | | Results for this | | DIFFERENTIAL | | 2:05 AM | | procedure are in the | | | | PDT | | results section. | + +--------+ + + + | LIVER SET | Urgent | 12/10/2012 | | Results for this | | (AST,ALT,BILI | | 2:05 AM | | procedure are in the | | TOTAL,BILI | | PDT | | results section. | | DIRECT,ALK | | | | | | PHOS,ALB,PROT TOTAL) | | | | | + +--------+ + + + | RENAL FUNCTION SET | Urgent | 12/10/2012 | | Results for this | | (NA,K,CL,CO2,BUN,CRE | | 2:05 AM | | procedure are in the | | AT,GLUC,CA,PHOS,ALB | | PDT | | results section. | | ) | | | | | + +--------+ + + + | BLOOD GASES, | Urgent | 12/10/2012 | | Results for this | | ARTERIAL - LAB | | 2:05 AM | | procedure are in the | | | | PDT | | results section. | + +--------+ + + + | MAGNESIUM, PLASMA | Urgent | 12/10/2012 | | Results for this | | | | 2:05 AM | | procedure are in the | | | | PDT | | results section. | + +--------+ + + + | CAPILLARY BLOOD | Routin | 12/10/2012 | | Results for this | | GLUCOSE (NO CHG), | e | 1:00 AM | | procedure are in the | | POC | | PDT | | results section. | + +--------+ + + + | HEPARIN, EITHER | Urgent | 12/10/2012 | | Results for this | | STANDARD / LMW, | | 12:16 AM | | procedure are in the | | BLOOD | | PDT | | results section. | + +--------+ + + + | CAPILLARY BLOOD | Routin | 12/10/2012 | | Results for this | | GLUCOSE (NO CHG), | e | 12:02 AM | | procedure are in the | | POC | | PDT | | results section. | + +--------+ + + + | CAPILLARY BLOOD | Routin | 12/09/2012 | | Results for this | | GLUCOSE (NO CHG), | e | 11:00 PM | | procedure are in the | | POC | | PDT | | results section. | + +--------+ + + + | CAPILLARY BLOOD | Routin | 12/09/2012 | | Results for this | | GLUCOSE (NO CHG), | e | 9:45 PM | | procedure are in the | | POC | | PDT | | results section. | + +--------+ + + + | CAPILLARY BLOOD | Routin | 12/09/2012 | | Results for this | | GLUCOSE (NO CHG), | e | 8:19 PM | | procedure are in the | | POC | | PDT | | results section. | + +--------+ + + + | CAPILLARY BLOOD | Routin | 12/09/2012 | | Results for this | | GLUCOSE (NO CHG), | e | 7:07 PM | | procedure are in the | | POC | | PDT | | results section. | + +--------+ + + + | CAPILLARY BLOOD | Routin | 12/09/2012 | | Results for this | | GLUCOSE (NO CHG), | e | 6:08 PM | | procedure are in the | | POC | | PDT | | results section. | + +--------+ + + + | HEPARIN, EITHER | Urgent | 12/09/2012 | | Results for this | | STANDARD / LMW, | | 6:02 PM | | procedure are in the | | BLOOD | | PDT | | results section. | + +--------+ + + + | RENAL FUNCTION SET | Urgent | 12/09/2012 | | Results for this | | (NA,K,CL,CO2,BUN,CRE | | 6:02 PM | | procedure are in the | | AT,GLUC,CA,PHOS,ALB | | PDT | | results section. | | ) | | | | | + +--------+ + + + | ATIII ACTIVITY, | Urgent | 12/09/2012 | | Results for this | | PLASMA | | 6:02 PM | | procedure are in the | | | | PDT | | results section. | + +--------+ + + + | CO-OXIMETER PANEL, | Urgent | 12/09/2012 | | Results for this | | BLOOD | | 6:02 PM | | procedure are in the | | | | PDT | | results section. | + +--------+ + + + | CAPILLARY BLOOD | Routin | 12/09/2012 | | Results for this | | GLUCOSE (NO CHG), | e | 5:11 PM | | procedure are in the | | POC | | PDT | | results section. | + +--------+ + + + | CAPILLARY BLOOD | Routin | 12/09/2012 | | Results for this | | GLUCOSE (NO CHG), | e | 4:09 PM | | procedure are in the | | POC | | PDT | | results section. | + +--------+ + + + | CAPILLARY BLOOD | Routin | 12/09/2012 | | Results for this | | GLUCOSE (NO CHG), | e | 3:16 PM | | procedure are in the | | POC | | PDT | | results section. | + +--------+ + + + | CAPILLARY BLOOD | Routin | 12/09/2012 | | Results for this | | GLUCOSE (NO CHG), | e | 1:56 PM | | procedure are in the | | POC | | PDT | | results section. | + +--------+ + + + | 12 LEAD ECG | Routin | 12/09/2012 | | Results for this | | | e | 1:40 PM | | procedure are in the | | | | PDT | | results section. | + +--------+ + + + | CAPILLARY BLOOD | Routin | 12/09/2012 | | Results for this | | GLUCOSE (NO CHG), | e | 1:04 PM | | procedure are in the | | POC | | PDT | | results section. | + +--------+ + + + | CAPILLARY BLOOD | Routin | 12/09/2012 | | Results for this | | GLUCOSE (NO CHG), | e | 12:02 PM | | procedure are in the | | POC | | PDT | | results section. | + +--------+ + + + | CAPILLARY BLOOD | Routin | 12/09/2012 | | Results for this | | GLUCOSE (NO CHG), | e | 11:19 AM | | procedure are in the | | POC | | PDT | | results section. | + +--------+ + + + | CAPILLARY BLOOD | Routin | 12/09/2012 | | Results for this | | GLUCOSE (NO CHG), | e | 10:08 AM | | procedure are in the | | POC | | PDT | | results section. | + +--------+ + + + | CAPILLARY BLOOD | Routin | 12/09/2012 | | Results for this | | GLUCOSE (NO CHG), | e | 8:03 AM | | procedure are in the | | POC | | PDT | | results section. | + +--------+ + + + | CAPILLARY BLOOD | Routin | 12/09/2012 | | Results for this | | GLUCOSE (NO CHG), | e | 7:00 AM | | procedure are in the | | POC | | PDT | | results section. | + +--------+ + + + | CAPILLARY BLOOD | Routin | 12/09/2012 | | Results for this | | GLUCOSE (NO CHG), | e | 6:03 AM | | procedure are in the | | POC | | PDT | | results section. | + +--------+ + + + | X-RAY PORTABLE CHEST | Routin | 12/09/2012 | | Results for this | | 1 VIEW | e | 5:59 AM | | procedure are in the | | | | PDT | | results section. | + +--------+ + + + | CAPILLARY BLOOD | Routin | 12/09/2012 | | Results for this | | GLUCOSE (NO CHG), | e | 5:08 AM | | procedure are in the | | POC | | PDT | | results section. | + +--------+ + + + | CAPILLARY BLOOD | Routin | 12/09/2012 | | Results for this | | GLUCOSE (NO CHG), | e | 4:09 AM | | procedure are in the | | POC | | PDT | | results section. | + +--------+ + + + | CAPILLARY BLOOD | Routin | 12/09/2012 | | Results for this | | GLUCOSE (NO CHG), | e | 3:05 AM | | procedure are in the | | POC | | PDT | | results section. | + +--------+ + + + | CAPILLARY BLOOD | Routin | 12/09/2012 | | Results for this | | GLUCOSE (NO CHG), | e | 2:01 AM | | procedure are in the | | POC | | PDT | | results section. | + +--------+ + + + | CBC AND AUTO DIFF | Urgent | 12/09/2012 | | Results for this | | | | 1:54 AM | | procedure are in the | | | | PDT | | results section. | + +--------+ + + + | MANUAL DIFFERENTIAL | Routin | 12/09/2012 | | Results for this | | | e | 1:54 AM | | procedure are in the | | | | PDT | | results section. | + +--------+ + + + | CBC, WITH | Urgent | 12/09/2012 | | Results for this | | DIFFERENTIAL | | 1:54 AM | | procedure are in the | | | | PDT | | results section. | + +--------+ + + + | VANCOMYCIN, TROUGH | Urgent | 12/09/2012 | | Results for this | | | | 1:54 AM | | procedure are in the | | | | PDT | | results section. | + +--------+ + + + | LIVER SET | Urgent | 12/09/2012 | | Results for this | | (AST,ALT,BILI | | 1:54 AM | | procedure are in the | | TOTAL,BILI | | PDT | | results section. | | DIRECT,ALK | | | | | | PHOS,ALB,PROT TOTAL) | | | | | + +--------+ + + + | RENAL FUNCTION SET | Urgent | 12/09/2012 | | Results for this | | (NA,K,CL,CO2,BUN,CRE | | 1:54 AM | | procedure are in the | | AT,GLUC,CA,PHOS,ALB | | PDT | | results section. | | ) | | | | | + +--------+ + + + | BLOOD GASES, | Urgent | 12/09/2012 | | Results for this | | ARTERIAL - LAB | | 1:54 AM | | procedure are in the | | | | PDT | | results section. | + +--------+ + + + | MAGNESIUM, PLASMA | Urgent | 12/09/2012 | | Results for this | | | | 1:54 AM | | procedure are in the | | | | PDT | | results section. | + +--------+ + + + | CAPILLARY BLOOD | Routin | 12/09/2012 | | Results for this | | GLUCOSE (NO CHG), | e | 1:08 AM | | procedure are in the | | POC | | PDT | | results section. | + +--------+ + + + | CAPILLARY BLOOD | Routin | 12/09/2012 | | Results for this | | GLUCOSE (NO CHG), | e | 12:11 AM | | procedure are in the | | POC | | PDT | | results section. | + +--------+ + + + | X-RAY ABD LTD | Routin | 12/09/2012 | | Results for this | | FEEDING TUBE EVAL | e | 12:07 AM | | procedure are in the | | | | PDT | | results section. | + +--------+ + + + | CAPILLARY BLOOD | Routin | 12/08/2012 | | Results for this | | GLUCOSE (NO CHG), | e | 11:06 PM | | procedure are in the | | POC | | PDT | | results section. | + +--------+ + + + | CAPILLARY BLOOD | Routin | 12/08/2012 | | Results for this | | GLUCOSE (NO CHG), | e | 10:11 PM | | procedure are in the | | POC | | PDT | | results section. | + +--------+ + + + | CAPILLARY BLOOD | Routin | 12/08/2012 | | Results for this | | GLUCOSE (NO CHG), | e | 8:26 PM | | procedure are in the | | POC | | PDT | | results section. | + +--------+ + + + | X-RAY PORTABLE CHEST | Urgent | 12/08/2012 | | Results for this | | 1 VIEW | | 7:41 PM | | procedure are in the | | | | PDT | | results section. | + +--------+ + + + | CBC ONLY | Urgent | 12/08/2012 | | Results for this | | | | 6:04 PM | | procedure are in the | | | | PDT | | results section. | + +--------+ + + + | RENAL FUNCTION SET | Urgent | 12/08/2012 | | Results for this | | (NA,K,CL,CO2,BUN,CRE | | 6:04 PM | | procedure are in the | | AT,GLUC,CA,PHOS,ALB | | PDT | | results section. | | ) | | | | | + +--------+ + + + | CBC ONLY | Urgent | 12/08/2012 | | Results for this | | | | 6:04 PM | | procedure are in the | | | | PDT | | results section. | + +--------+ + + + | COAGULOPATHY PANEL | Urgent | 12/08/2012 | | Results for this | | (INR,APTT,FIBRINOGEN | | 6:04 PM | | procedure are in the | | ) | | PDT | | results section. | + +--------+ + + + | CALCIUM, IONIZED, | Urgent | 12/08/2012 | | Results for this | | WHOLE BLOOD | | 6:04 PM | | procedure are in the | | | | PDT | | results section. | + +--------+ + + + | BLOOD GASES, | Urgent | 12/08/2012 | | Results for this | | ARTERIAL - LAB | | 6:04 PM | | procedure are in the | | | | PDT | | results section. | + +--------+ + + + | CAPILLARY BLOOD | Routin | 12/08/2012 | | Results for this | | GLUCOSE (NO CHG), | e | 6:00 PM | | procedure are in the | | POC | | PDT | | results section. | + +--------+ + + + | CULTURE, FUNGAL | Routin | 12/08/2012 | | Results for this | | EXCEPT BLOOD, SKIN, | e | 4:00 PM | | procedure are in the | | HAIR, NAIL | | PDT | | results section. | + +--------+ + + + | CULTURE, FUNGAL | Routin | 12/08/2012 | | Results for this | | EXCEPT BLOOD, SKIN, | e | 4:00 PM | | procedure are in the | | HAIR, NAIL | | PDT | | results section. | + +--------+ + + + | CULTURE, FUNGAL | Routin | 12/08/2012 | | Results for this | | EXCEPT BLOOD, SKIN, | e | 4:00 PM | | procedure are in the | | HAIR, NAIL | | PDT | | results section. | + +--------+ + + + | CULTURE, WOUND DEEP | Urgent | 12/08/2012 | | Results for this | | W/ ANAEROBE | | 4:00 PM | | procedure are in the | | | | PDT | | results section. | + +--------+ + + + | CULTURE, WOUND DEEP | Urgent | 12/08/2012 | | Results for this | | W/ ANAEROBE | | 4:00 PM | | procedure are in the | | | | PDT | | results section. | + +--------+ + + + | CULTURE, TISSUE | Urgent | 12/08/2012 | | Results for this | | | | 4:00 PM | | procedure are in the | | | | PDT | | results section. | + +--------+ + + + | CULTURE, AFB (ALL | Routin | 12/08/2012 | | Results for this | | SPEC TYPES EXCEPT | e | 4:00 PM | | procedure are in the | | BLOOD) | | PDT | | results section. | + +--------+ + + + | CULTURE, AFB (ALL | Routin | 12/08/2012 | | Results for this | | SPEC TYPES EXCEPT | e | 4:00 PM | | procedure are in the | | BLOOD) | | PDT | | results section. | + +--------+ + + + | CULTURE, AFB (ALL | Routin | 12/08/2012 | | Results for this | | SPEC TYPES EXCEPT | e | 4:00 PM | | procedure are in the | | BLOOD) | | PDT | | results section. | + +--------+ + + + | TYPE AND SCREEN | Urgent | 12/08/2012 | | Results for this | | | | 3:37 PM | | procedure are in the | | | | PDT | | results section. | + +--------+ + + + | (INACTIVE) STERNAL | Electi | 12/08/2012 | Open wound of | | | WASHOUT AND CLOSURE | ve | 2:20 PM | chest (wall), | | | | Surgic | PDT | complicated | | | | al | | | | + +--------+ + + + +---+--------+ | | | | | Specia | | | l | | | Needs | | | ICU | +---+--------+ + +--------+ + + + | ANTIBODY SCREEN | Urgent | 12/08/2012 | | Results for this | | | | 2:08 PM | | procedure are in the | | | | PDT | | results section. | + +--------+ + + + | ABO & RH TYPE | Urgent | 12/08/2012 | | Results for this | | | | 2:08 PM | | procedure are in the | | | | PDT | | results section. | + +--------+ + + + | CAPILLARY BLOOD | Routin | 12/08/2012 | | Results for this | | GLUCOSE (NO CHG), | e | 12:38 PM | | procedure are in the | | POC | | PDT | | results section. | + +--------+ + + + | CAPILLARY BLOOD | Routin | 12/08/2012 | | Results for this | | GLUCOSE (NO CHG), | e | 10:24 AM | | procedure are in the | | POC | | PDT | | results section. | + +--------+ + + + | HEPARIN, EITHER | Urgent | 12/08/2012 | | Results for this | | STANDARD / LMW, | | 8:10 AM | | procedure are in the | | BLOOD | | PDT | | results section. | + +--------+ + + + | CAPILLARY BLOOD | Routin | 12/08/2012 | | Results for this | | GLUCOSE (NO CHG), | e | 8:04 AM | | procedure are in the | | POC | | PDT | | results section. | + +--------+ + + + | BLOOD GASES, | Urgent | 12/08/2012 | | Results for this | | ARTERIAL - LAB | | 6:00 AM | | procedure are in the | | | | PDT | | results section. | + +--------+ + + + | CAPILLARY BLOOD | Routin | 12/08/2012 | | Results for this | | GLUCOSE (NO CHG), | e | 5:53 AM | | procedure are in the | | POC | | PDT | | results section. | + +--------+ + + + | X-RAY PORTABLE CHEST | Routin | 12/08/2012 | | Results for this | | 1 VIEW | e | 5:49 AM | | procedure are in the | | | | PDT | | results section. | + +--------+ + + + | CAPILLARY BLOOD | Routin | 12/08/2012 | | Results for this | | GLUCOSE (NO CHG), | e | 4:05 AM | | procedure are in the | | POC | | PDT | | results section. | + +--------+ + + + | ATIII ACTIVITY, | Urgent | 12/08/2012 | | Results for this | | PLASMA | | 3:15 AM | | procedure are in the | | | | PDT | | results section. | + +--------+ + + + | HEPARIN, EITHER | Urgent | 12/08/2012 | | Results for this | | STANDARD / LMW, | | 2:28 AM | | procedure are in the | | BLOOD | | PDT | | results section. | + +--------+ + + + | CAPILLARY BLOOD | Routin | 12/08/2012 | | Results for this | | GLUCOSE (NO CHG), | e | 2:04 AM | | procedure are in the | | POC | | PDT | | results section. | + +--------+ + + + | CBC AND AUTO DIFF | Urgent | 12/08/2012 | | Results for this | | | | 2:00 AM | | procedure are in the | | | | PDT | | results section. | + +--------+ + + + | CBC, WITH | Urgent | 12/08/2012 | | Results for this | | DIFFERENTIAL | | 2:00 AM | | procedure are in the | | | | PDT | | results section. | + +--------+ + + + | VANCOMYCIN, RANDOM | Urgent | 12/08/2012 | | Results for this | | | | 2:00 AM | | procedure are in the | | | | PDT | | results section. | + +--------+ + + + | LIVER SET | Urgent | 12/08/2012 | | Results for this | | (AST,ALT,BILI | | 2:00 AM | | procedure are in the | | TOTAL,BILI | | PDT | | results section. | | DIRECT,ALK | | | | | | PHOS,ALB,PROT TOTAL) | | | | | + +--------+ + + + | RENAL FUNCTION SET | Urgent | 12/08/2012 | | Results for this | | (NA,K,CL,CO2,BUN,CRE | | 2:00 AM | | procedure are in the | | AT,GLUC,CA,PHOS,ALB | | PDT | | results section. | | ) | | | | | + +--------+ + + + | MAGNESIUM, PLASMA | Urgent | 12/08/2012 | | Results for this | | | | 2:00 AM | | procedure are in the | | | | PDT | | results section. | + +--------+ + + + | CAPILLARY BLOOD | Routin | 12/07/2012 | | Results for this | | GLUCOSE (NO CHG), | e | 11:59 PM | | procedure are in the | | POC | | PDT | | results section. | + +--------+ + + + | CAPILLARY BLOOD | Routin | 12/07/2012 | | Results for this | | GLUCOSE (NO CHG), | e | 10:08 PM | | procedure are in the | | POC | | PDT | | results section. | + +--------+ + + + | CAPILLARY BLOOD | Routin | 12/07/2012 | | Results for this | | GLUCOSE (NO CHG), | e | 8:03 PM | | procedure are in the | | POC | | PDT | | results section. | + +--------+ + + + | HEPARIN, EITHER | Urgent | 12/07/2012 | | Results for this | | STANDARD / LMW, | | 8:00 PM | | procedure are in the | | BLOOD | | PDT | | results section. | + +--------+ + + + | CAPILLARY BLOOD | Routin | 12/07/2012 | | Results for this | | GLUCOSE (NO CHG), | e | 6:53 PM | | procedure are in the | | POC | | PDT | | results section. | + +--------+ + + + | CAPILLARY BLOOD | Routin | 12/07/2012 | | Results for this | | GLUCOSE (NO CHG), | e | 6:08 PM | | procedure are in the | | POC | | PDT | | results section. | + +--------+ + + + | CAPILLARY BLOOD | Routin | 12/07/2012 | | Results for this | | GLUCOSE (NO CHG), | e | 5:05 PM | | procedure are in the | | POC | | PDT | | results section. | + +--------+ + + + | CAPILLARY BLOOD | Routin | 12/07/2012 | | Results for this | | GLUCOSE (NO CHG), | e | 4:14 PM | | procedure are in the | | POC | | PDT | | results section. | + +--------+ + + + | RENAL FUNCTION SET | Urgent | 12/07/2012 | | Results for this | | (NA,K,CL,CO2,BUN,CRE | | 4:09 PM | | procedure are in the | | AT,GLUC,CA,PHOS,ALB | | PDT | | results section. | | ) | | | | | + +--------+ + + + | ATIII ACTIVITY, | Urgent | 12/07/2012 | | Results for this | | PLASMA | | 4:09 PM | | procedure are in the | | | | PDT | | results section. | + +--------+ + + + | MAGNESIUM, PLASMA | Urgent | 12/07/2012 | | Results for this | | | | 4:09 PM | | procedure are in the | | | | PDT | | results section. | + +--------+ + + + | CAPILLARY BLOOD | Routin | 12/07/2012 | | Results for this | | GLUCOSE (NO CHG), | e | 3:03 PM | | procedure are in the | | POC | | PDT | | results section. | + +--------+ + + + | CAPILLARY BLOOD | Routin | 12/07/2012 | | Results for this | | GLUCOSE (NO CHG), | e | 2:13 PM | | procedure are in the | | POC | | PDT | | results section. | + +--------+ + + + | CAPILLARY BLOOD | Routin | 12/07/2012 | | Results for this | | GLUCOSE (NO CHG), | e | 1:14 PM | | procedure are in the | | POC | | PDT | | results section. | + +--------+ + + + | CAPILLARY BLOOD | Routin | 12/07/2012 | | Results for this | | GLUCOSE (NO CHG), | e | 12:07 PM | | procedure are in the | | POC | | PDT | | results section. | + +--------+ + + + | HEPARIN, EITHER | Urgent | 12/07/2012 | | Results for this | | STANDARD / LMW, | | 11:59 AM | | procedure are in the | | BLOOD | | PDT | | results section. | + +--------+ + + + | CAPILLARY BLOOD | Routin | 12/07/2012 | | Results for this | | GLUCOSE (NO CHG), | e | 10:57 AM | | procedure are in the | | POC | | PDT | | results section. | + +--------+ + + + | CAPILLARY BLOOD | Routin | 12/07/2012 | | Results for this | | GLUCOSE (NO CHG), | e | 9:36 AM | | procedure are in the | | POC | | PDT | | results section. | + +--------+ + + + | CAPILLARY BLOOD | Routin | 12/07/2012 | | Results for this | | GLUCOSE (NO CHG), | e | 8:32 AM | | procedure are in the | | POC | | PDT | | results section. | + +--------+ + + + | SODIUM TOTAL, URINE | Urgent | 12/07/2012 | | Results for this | | | | 8:21 AM | | procedure are in the | | | | PDT | | results section. | + +--------+ + + + | URINE, MICROSCOPIC | Urgent | 12/07/2012 | | Results for this | | EXAM | | 8:21 AM | | procedure are in the | | | | PDT | | results section. | + +--------+ + + + | RENAL FUNCTION SET | Urgent | 12/07/2012 | | Results for this | | (NA,K,CL,CO2,BUN,CRE | | 8:21 AM | | procedure are in the | | AT,GLUC,CA,PHOS,ALB | | PDT | | results section. | | ) | | | | | + +--------+ + + + | ATIII ACTIVITY, | Urgent | 12/07/2012 | | Results for this | | PLASMA | | 8:21 AM | | procedure are in the | | | | PDT | | results section. | + +--------+ + + + | CREATININE, URINE | Urgent | 12/07/2012 | | Results for this | | | | 8:21 AM | | procedure are in the | | | | PDT | | results section. | + +--------+ + + + | BLOOD GASES, | Urgent | 12/07/2012 | | Results for this | | ARTERIAL - LAB | | 6:41 AM | | procedure are in the | | | | PDT | | results section. | + +--------+ + + + | CAPILLARY BLOOD | Routin | 12/07/2012 | | Results for this | | GLUCOSE (NO CHG), | e | 6:35 AM | | procedure are in the | | POC | | PDT | | results section. | + +--------+ + + + | X-RAY PORTABLE CHEST | Routin | 12/07/2012 | | Results for this | | 1 VIEW | e | 6:14 AM | | procedure are in the | | | | PDT | | results section. | + +--------+ + + + | LACTATE | Urgent | 12/07/2012 | | Results for this | | | | 4:31 AM | | procedure are in the | | | | PDT | | results section. | + +--------+ + + + | CAPILLARY BLOOD | Routin | 12/07/2012 | | Results for this | | GLUCOSE (NO CHG), | e | 4:30 AM | | procedure are in the | | POC | | PDT | | results section. | + +--------+ + + + | HEPARIN, EITHER | Urgent | 12/07/2012 | | Results for this | | STANDARD / LMW, | | 4:26 AM | | procedure are in the | | BLOOD | | PDT | | results section. | + +--------+ + + + | POTASSIUM, PLASMA | Urgent | 12/07/2012 | | Results for this | | | | 4:26 AM | | procedure are in the | | | | PDT | | results section. | + +--------+ + + + | CK, PLASMA | Urgent | 12/07/2012 | | Results for this | | | | 4:26 AM | | procedure are in the | | | | PDT | | results section. | + +--------+ + + + | CAPILLARY BLOOD | Routin | 12/07/2012 | | Results for this | | GLUCOSE (NO CHG), | e | 3:07 AM | | procedure are in the | | POC | | PDT | | results section. | + +--------+ + + + | CAPILLARY BLOOD | Routin | 12/07/2012 | | Results for this | | GLUCOSE (NO CHG), | e | 2:24 AM | | procedure are in the | | POC | | PDT | | results section. | + +--------+ + + + | CBC ONLY | Urgent | 12/07/2012 | | Results for this | | | | 2:02 AM | | procedure are in the | | | | PDT | | results section. | + +--------+ + + + | CBC ONLY | Urgent | 12/07/2012 | | Results for this | | | | 2:02 AM | | procedure are in the | | | | PDT | | results section. | + +--------+ + + + | CAPILLARY BLOOD | Routin | 12/07/2012 | | Results for this | | GLUCOSE (NO CHG), | e | 1:12 AM | | procedure are in the | | POC | | PDT | | results section. | + +--------+ + + + | POTASSIUM, PLASMA | Urgent | 12/07/2012 | | Results for this | | | | 1:02 AM | | procedure are in the | | | | PDT | | results section. | + +--------+ + + + | LACTATE | Urgent | 12/07/2012 | | Results for this | | | | 1:02 AM | | procedure are in the | | | | PDT | | results section. | + +--------+ + + + | MAGNESIUM, PLASMA | Urgent | 12/07/2012 | | Results for this | | | | 1:02 AM | | procedure are in the | | | | PDT | | results section. | + +--------+ + + + | CAPILLARY BLOOD | Routin | 12/06/2012 | | Results for this | | GLUCOSE (NO CHG), | e | 11:24 PM | | procedure are in the | | POC | | PDT | | results section. | + +--------+ + + + | COMPLETE METABOLIC | Urgent | 12/06/2012 | | Results for this | | SET | | 11:20 PM | | procedure are in the | | (NA,K,CL,CO2,BUN,CRE | | PDT | | results section. | | AT,GLUC,CA,AST,ALT,B | | | | | | KYLE TOTAL,ALK | | | | | | PHOS,ALB,PROT TOTAL) | | | | | + +--------+ + + + | CAPILLARY BLOOD | Routin | 12/06/2012 | | Results for this | | GLUCOSE (NO CHG), | e | 8:34 PM | | procedure are in the | | POC | | PDT | | results section. | + +--------+ + + + | CBC AND AUTO DIFF | Urgent | 12/06/2012 | | Results for this | | | | 8:27 PM | | procedure are in the | | | | PDT | | results section. | + +--------+ + + + | MANUAL DIFFERENTIAL | Routin | 12/06/2012 | | Results for this | | | e | 8:27 PM | | procedure are in the | | | | PDT | | results section. | + +--------+ + + + | CBC, WITH | Urgent | 12/06/2012 | | Results for this | | DIFFERENTIAL | | 8:27 PM | | procedure are in the | | | | PDT | | results section. | + +--------+ + + + | VANCOMYCIN, RANDOM | Urgent | 12/06/2012 | | Results for this | | | | 8:27 PM | | procedure are in the | | | | PDT | | results section. | + +--------+ + + + | COMPLETE METABOLIC | Urgent | 12/06/2012 | | Results for this | | SET | | 8:27 PM | | procedure are in the | | (NA,K,CL,CO2,BUN,CRE | | PDT | | results section. | | AT,GLUC,CA,AST,ALT,B | | | | | | KYLE TOTAL,ALK | | | | | | PHOS,ALB,PROT TOTAL) | | | | | + +--------+ + + + | COAGULOPATHY PANEL | Urgent | 12/06/2012 | | Results for this | | (INR,APTT,FIBRINOGEN | | 8:27 PM | | procedure are in the | | ) | | PDT | | results section. | + +--------+ + + + | LACTATE | Urgent | 12/06/2012 | | Results for this | | | | 8:27 PM | | procedure are in the | | | | PDT | | results section. | + +--------+ + + + | MAGNESIUM, PLASMA | Urgent | 12/06/2012 | | Results for this | | | | 8:27 PM | | procedure are in the | | | | PDT | | results section. | + +--------+ + + + | CK, PLASMA | Urgent | 12/06/2012 | | Results for this | | | | 8:27 PM | | procedure are in the | | | | PDT | | results section. | + +--------+ + + + | 12 LEAD ECG | Routin | 12/06/2012 | | Results for this | | | e | 8:07 PM | | procedure are in the | | | | PDT | | results section. | + +--------+ + + + | HEPARIN, EITHER | Urgent | 12/06/2012 | | Results for this | | STANDARD / LMW, | | 4:02 PM | | procedure are in the | | BLOOD | | PDT | | results section. | + +--------+ + + + | OPERATION RECORD | | 12/06/2012 | | Results for this | | | | 2:42 PM | | procedure are in the | | | | PDT | | results section. | + +--------+ + + + | RENAL FUNCTION SET | Urgent | 12/06/2012 | | Results for this | | (NA,K,CL,CO2,BUN,CRE | | 1:54 PM | | procedure are in the | | AT,GLUC,CA,PHOS,ALB | | PDT | | results section. | | ) | | | | | + +--------+ + + + | COAGULOPATHY PANEL | Urgent | 12/06/2012 | | Results for this | | (INR,APTT,FIBRINOGEN | | 1:54 PM | | procedure are in the | | ) | | PDT | | results section. | + +--------+ + + + | LACTATE | Urgent | 12/06/2012 | | Results for this | | | | 1:54 PM | | procedure are in the | | | | PDT | | results section. | + +--------+ + + + | BLOOD GASES, | Urgent | 12/06/2012 | | Results for this | | ARTERIAL - LAB | | 1:54 PM | | procedure are in the | | | | PDT | | results section. | + +--------+ + + + | CBC ONLY | Urgent | 12/06/2012 | | Results for this | | | | 8:54 AM | | procedure are in the | | | | PDT | | results section. | + +--------+ + + + | CBC ONLY | Urgent | 12/06/2012 | | Results for this | | | | 8:54 AM | | procedure are in the | | | | PDT | | results section. | + +--------+ + + + | X-RAY PORTABLE CHEST | Routin | 12/06/2012 | | Results for this | | 1 VIEW | e | 8:34 AM | | procedure are in the | | | | PDT | | results section. | + +--------+ + + + | HEPARIN, EITHER | Urgent | 12/06/2012 | | Results for this | | STANDARD / LMW, | | 8:14 AM | | procedure are in the | | BLOOD | | PDT | | results section. | + +--------+ + + + | VANCOMYCIN, RANDOM | Urgent | 12/06/2012 | | Results for this | | | | 8:14 AM | | procedure are in the | | | | PDT | | results section. | + +--------+ + + + | TROPONIN I, PLASMA | Urgent | 12/06/2012 | | Results for this | | | | 8:14 AM | | procedure are in the | | | | PDT | | results section. | + +--------+ + + + | COMPLETE METABOLIC | Urgent | 12/06/2012 | | Results for this | | SET | | 8:14 AM | | procedure are in the | | (NA,K,CL,CO2,BUN,CRE | | PDT | | results section. | | AT,GLUC,CA,AST,ALT,B | | | | | | KYLE TOTAL,ALK | | | | | | PHOS,ALB,PROT TOTAL) | | | | | + +--------+ + + + | COAGULOPATHY PANEL | Urgent | 12/06/2012 | | Results for this | | (INR,APTT,FIBRINOGEN | | 8:14 AM | | procedure are in the | | ) | | PDT | | results section. | + +--------+ + + + | LACTATE | Urgent | 12/06/2012 | | Results for this | | | | 8:14 AM | | procedure are in the | | | | PDT | | results section. | + +--------+ + + + | BLOOD GASES, | Urgent | 12/06/2012 | | Results for this | | ARTERIAL - LAB | | 8:14 AM | | procedure are in the | | | | PDT | | results section. | + +--------+ + + + | CAPILLARY BLOOD | Routin | 12/06/2012 | | Results for this | | GLUCOSE (NO CHG), | e | 7:08 AM | | procedure are in the | | POC | | PDT | | results section. | + +--------+ + + + | LACTATE | Urgent | 12/06/2012 | | Results for this | | | | 2:47 AM | | procedure are in the | | | | PDT | | results section. | + +--------+ + + + | BLOOD GASES, | Urgent | 12/06/2012 | | Results for this | | ARTERIAL - LAB | | 2:47 AM | | procedure are in the | | | | PDT | | results section. | + +--------+ + + + | 12 LEAD ECG | Routin | 12/06/2012 | | Results for this | | | e | 2:33 AM | | procedure are in the | | | | PDT | | results section. | + +--------+ + + + | CBC AND AUTO DIFF | Urgent | 12/06/2012 | | Results for this | | | | 2:28 AM | | procedure are in the | | | | PDT | | results section. | + +--------+ + + + | MANUAL DIFFERENTIAL | Routin | 12/06/2012 | | Results for this | | | e | 2:28 AM | | procedure are in the | | | | PDT | | results section. | + +--------+ + + + | CBC, WITH | Urgent | 12/06/2012 | | Results for this | | DIFFERENTIAL | | 2:28 AM | | procedure are in the | | | | PDT | | results section. | + +--------+ + + + | COMPLETE METABOLIC | Urgent | 12/06/2012 | | Results for this | | SET | | 2:28 AM | | procedure are in the | | (NA,K,CL,CO2,BUN,CRE | | PDT | | results section. | | AT,GLUC,CA,AST,ALT,B | | | | | | KYLE TOTAL,ALK | | | | | | PHOS,ALB,PROT TOTAL) | | | | | + +--------+ + + + | COAGULOPATHY PANEL | Urgent | 12/06/2012 | | Results for this | | (INR,APTT,FIBRINOGEN | | 2:28 AM | | procedure are in the | | ) | | PDT | | results section. | + +--------+ + + + | MAGNESIUM, PLASMA | Urgent | 12/06/2012 | | Results for this | | | | 2:28 AM | | procedure are in the | | | | PDT | | results section. | + +--------+ + + + | CAPILLARY BLOOD | Routin | 12/06/2012 | | Results for this | | GLUCOSE (NO CHG), | e | 1:44 AM | | procedure are in the | | POC | | PDT | | results section. | + +--------+ + + + | CAPILLARY BLOOD | Routin | 12/05/2012 | | Results for this | | GLUCOSE (NO CHG), | e | 9:47 PM | | procedure are in the | | POC | | PDT | | results section. | + +--------+ + + + | LACTATE | Urgent | 12/05/2012 | | Results for this | | | | 9:26 PM | | procedure are in the | | | | PDT | | results section. | + +--------+ + + + | BLOOD GASES, | Urgent | 12/05/2012 | | Results for this | | ARTERIAL - LAB | | 9:26 PM | | procedure are in the | | | | PDT | | results section. | + +--------+ + + + | CBC AND AUTO DIFF | Urgent | 12/05/2012 | | Results for this | | | | 9:24 PM | | procedure are in the | | | | PDT | | results section. | + +--------+ + + + | MANUAL DIFFERENTIAL | Routin | 12/05/2012 | | Results for this | | | e | 9:24 PM | | procedure are in the | | | | PDT | | results section. | + +--------+ + + + | CBC, WITH | Urgent | 12/05/2012 | | Results for this | | DIFFERENTIAL | | 9:24 PM | | procedure are in the | | | | PDT | | results section. | + +--------+ + + + | HEPARIN, EITHER | Urgent | 12/05/2012 | | Results for this | | STANDARD / LMW, | | 9:23 PM | | procedure are in the | | BLOOD | | PDT | | results section. | + +--------+ + + + | COMPLETE METABOLIC | Urgent | 12/05/2012 | | Results for this | | SET | | 9:23 PM | | procedure are in the | | (NA,K,CL,CO2,BUN,CRE | | PDT | | results section. | | AT,GLUC,CA,AST,ALT,B | | | | | | KYEL TOTAL,ALK | | | | | | PHOS,ALB,PROT TOTAL) | | | | | + +--------+ + + + | COAGULOPATHY PANEL | Urgent | 12/05/2012 | | Results for this | | (INR,APTT,FIBRINOGEN | | 9:23 PM | | procedure are in the | | ) | | PDT | | results section. | + +--------+ + + + | CAPILLARY BLOOD | Routin | 12/05/2012 | | Results for this | | GLUCOSE (NO CHG), | e | 4:23 PM | | procedure are in the | | POC | | PDT | | results section. | + +--------+ + + + | LACTATE | Urgent | 12/05/2012 | | Results for this | | | | 4:07 PM | | procedure are in the | | | | PDT | | results section. | + +--------+ + + + | BLOOD GASES, | Urgent | 12/05/2012 | | Results for this | | ARTERIAL - LAB | | 4:07 PM | | procedure are in the | | | | PDT | | results section. | + +--------+ + + + | TROPONIN I, PLASMA | Urgent | 12/05/2012 | | Results for this | | | | 4:06 PM | | procedure are in the | | | | PDT | | results section. | + +--------+ + + + | COMPLETE METABOLIC | Urgent | 12/05/2012 | | Results for this | | SET | | 4:06 PM | | procedure are in the | | (NA,K,CL,CO2,BUN,CRE | | PDT | | results section. | | AT,GLUC,CA,AST,ALT,B | | | | | | KYLE TOTAL,ALK | | | | | | PHOS,ALB,PROT TOTAL) | | | | | + +--------+ + + + | COAGULOPATHY PANEL | Urgent | 12/05/2012 | | Results for this | | (INR,APTT,FIBRINOGEN | | 4:06 PM | | procedure are in the | | ) | | PDT | | results section. | + +--------+ + + + | CAPILLARY BLOOD | Routin | 12/05/2012 | | Results for this | | GLUCOSE (NO CHG), | e | 2:22 PM | | procedure are in the | | POC | | PDT | | results section. | + +--------+ + + + | CAPILLARY BLOOD | Routin | 12/05/2012 | | Results for this | | GLUCOSE (NO CHG), | e | 12:34 PM | | procedure are in the | | POC | | PDT | | results section. | + +--------+ + + + | CAPILLARY BLOOD | Routin | 12/05/2012 | | Results for this | | GLUCOSE (NO CHG), | e | 10:31 AM | | procedure are in the | | POC | | PDT | | results section. | + +--------+ + + + | COMPLETE METABOLIC | Urgent | 12/05/2012 | | Results for this | | SET | | 10:22 AM | | procedure are in the | | (NA,K,CL,CO2,BUN,CRE | | PDT | | results section. | | AT,GLUC,CA,AST,ALT,B | | | | | | KYLE TOTAL,ALK | | | | | | PHOS,ALB,PROT TOTAL) | | | | | + +--------+ + + + | COAGULOPATHY PANEL | Urgent | 12/05/2012 | | Results for this | | (INR,APTT,FIBRINOGEN | | 10:22 AM | | procedure are in the | | ) | | PDT | | results section. | + +--------+ + + + | LACTATE | Urgent | 12/05/2012 | | Results for this | | | | 10:22 AM | | procedure are in the | | | | PDT | | results section. | + +--------+ + + + | CAPILLARY BLOOD | Routin | 12/05/2012 | | Results for this | | GLUCOSE (NO CHG), | e | 8:19 AM | | procedure are in the | | POC | | PDT | | results section. | + +--------+ + + + | VANCOMYCIN, RANDOM | Urgent | 12/05/2012 | | Results for this | | | | 8:15 AM | | procedure are in the | | | | PDT | | results section. | + +--------+ + + + | TROPONIN I, PLASMA | Urgent | 12/05/2012 | | Results for this | | | | 8:15 AM | | procedure are in the | | | | PDT | | results section. | + +--------+ + + + | X-RAY PORTABLE CHEST | Routin | 12/05/2012 | | Results for this | | 1 VIEW | e | 7:56 AM | | procedure are in the | | | | PDT | | results section. | + +--------+ + + + | CAPILLARY BLOOD | Routin | 12/05/2012 | | Results for this | | GLUCOSE (NO CHG), | e | 6:00 AM | | procedure are in the | | POC | | PDT | | results section. | + +--------+ + + + | CAPILLARY BLOOD | Routin | 12/05/2012 | | Results for this | | GLUCOSE (NO CHG), | e | 5:06 AM | | procedure are in the | | POC | | PDT | | results section. | + +--------+ + + + | CAPILLARY BLOOD | Routin | 12/05/2012 | | Results for this | | GLUCOSE (NO CHG), | e | 4:01 AM | | procedure are in the | | POC | | PDT | | results section. | + +--------+ + + + | CBC ONLY | Routin | 12/05/2012 | | Results for this | | | e | 4:00 AM | | procedure are in the | | | | PDT | | results section. | + +--------+ + + + | COMPLETE METABOLIC | Urgent | 12/05/2012 | | Results for this | | SET | | 4:00 AM | | procedure are in the | | (NA,K,CL,CO2,BUN,CRE | | PDT | | results section. | | AT,GLUC,CA,AST,ALT,B | | | | | | KYLE TOTAL,ALK | | | | | | PHOS,ALB,PROT TOTAL) | | | | | + +--------+ + + + | CBC ONLY | Routin | 12/05/2012 | | Results for this | | | e | 4:00 AM | | procedure are in the | | | | PDT | | results section. | + +--------+ + + + | COAGULOPATHY PANEL | Urgent | 12/05/2012 | | Results for this | | (INR,APTT,FIBRINOGEN | | 4:00 AM | | procedure are in the | | ) | | PDT | | results section. | + +--------+ + + + | LACTATE | Urgent | 12/05/2012 | | Results for this | | | | 4:00 AM | | procedure are in the | | | | PDT | | results section. | + +--------+ + + + | MAGNESIUM, PLASMA | Routin | 12/05/2012 | | Results for this | | | e | 4:00 AM | | procedure are in the | | | | PDT | | results section. | + +--------+ + + + | BLOOD GASES, | Urgent | 12/05/2012 | | Results for this | | ARTERIAL - LAB | | 3:15 AM | | procedure are in the | | | | PDT | | results section. | + +--------+ + + + | CAPILLARY BLOOD | Routin | 12/05/2012 | | Results for this | | GLUCOSE (NO CHG), | e | 3:04 AM | | procedure are in the | | POC | | PDT | | results section. | + +--------+ + + + | 12 LEAD ECG | Routin | 12/05/2012 | | Results for this | | | e | 2:53 AM | | procedure are in the | | | | PDT | | results section. | + +--------+ + + + | UA, DIPSTICK ONLY | Urgent | 12/05/2012 | | Results for this | | | | 2:14 AM | | procedure are in the | | | | PDT | | results section. | + +--------+ + + + | CAPILLARY BLOOD | Routin | 12/05/2012 | | Results for this | | GLUCOSE (NO CHG), | e | 1:56 AM | | procedure are in the | | POC | | PDT | | results section. | + +--------+ + + + | CAPILLARY BLOOD | Routin | 12/05/2012 | | Results for this | | GLUCOSE (NO CHG), | e | 1:06 AM | | procedure are in the | | POC | | PDT | | results section. | + +--------+ + + + | CAPILLARY BLOOD | Routin | 12/05/2012 | | Results for this | | GLUCOSE (NO CHG), | e | 12:14 AM | | procedure are in the | | POC | | PDT | | results section. | + +--------+ + + + | X-RAY ABD LTD | Routin | 12/05/2012 | | Results for this | | FEEDING TUBE EVAL | e | 12:10 AM | | procedure are in the | | | | PDT | | results section. | + +--------+ + + + | TROPONIN I, PLASMA | Urgent | 12/05/2012 | | Results for this | | | | 12:05 AM | | procedure are in the | | | | PDT | | results section. | + +--------+ + + + | TROPONIN I, PLASMA | Urgent | 12/05/2012 | | Results for this | | | | 12:01 AM | | procedure are in the | | | | PDT | | results section. | + +--------+ + + + | X-RAY ABD LTD | Routin | 12/04/2012 | | Results for this | | FEEDING TUBE EVAL | e | 11:55 PM | | procedure are in the | | | | PDT | | results section. | + +--------+ + + + | CAPILLARY BLOOD | Routin | 12/04/2012 | | Results for this | | GLUCOSE (NO CHG), | e | 10:54 PM | | procedure are in the | | POC | | PDT | | results section. | + +--------+ + + + | COMPLETE METABOLIC | Urgent | 12/04/2012 | | Results for this | | SET | | 10:45 PM | | procedure are in the | | (NA,K,CL,CO2,BUN,CRE | | PDT | | results section. | | AT,GLUC,CA,AST,ALT,B | | | | | | KYLE TOTAL,ALK | | | | | | PHOS,ALB,PROT TOTAL) | | | | | + +--------+ + + + | COAGULOPATHY PANEL | Urgent | 12/04/2012 | | Results for this | | (INR,APTT,FIBRINOGEN | | 10:45 PM | | procedure are in the | | ) | | PDT | | results section. | + +--------+ + + + | LACTATE | Urgent | 12/04/2012 | | Results for this | | | | 10:45 PM | | procedure are in the | | | | PDT | | results section. | + +--------+ + + + | CAPILLARY BLOOD | Routin | 12/04/2012 | | Results for this | | GLUCOSE (NO CHG), | e | 9:20 PM | | procedure are in the | | POC | | PDT | | results section. | + +--------+ + + + | VANCOMYCIN, RANDOM | Urgent | 12/04/2012 | | Results for this | | | | 9:15 PM | | procedure are in the | | | | PDT | | results section. | + +--------+ + + + | VASC LAB PORTABLE | Routin | 12/04/2012 | | Results for this | | VENOUS DUPLEX LOWER | e | 7:35 PM | | procedure are in the | | EXTREMITY BILATERAL | | PDT | | results section. | | COMPLETE | | | | | + +--------+ + + + | ARTERIAL LINE | Routin | 12/04/2012 | | Results for this | | | e | 7:08 PM | | procedure are in the | | | | PDT | | results section. | + +--------+ + + + | LACTATE | Urgent | 12/04/2012 | | Results for this | | | | 7:02 PM | | procedure are in the | | | | PDT | | results section. | + +--------+ + + + | BLOOD GASES, | Routin | 12/04/2012 | | Results for this | | ARTERIAL - LAB | e | 7:02 PM | | procedure are in the | | | | PDT | | results section. | + +--------+ + + + | CBC ONLY | Urgent | 12/04/2012 | | Results for this | | | | 7:01 PM | | procedure are in the | | | | PDT | | results section. | + +--------+ + + + | COMPLETE METABOLIC | Urgent | 12/04/2012 | | Results for this | | SET | | 7:01 PM | | procedure are in the | | (NA,K,CL,CO2,BUN,CRE | | PDT | | results section. | | AT,GLUC,CA,AST,ALT,B | | | | | | KYLE TOTAL,ALK | | | | | | PHOS,ALB,PROT TOTAL) | | | | | + +--------+ + + + | RENAL FUNCTION SET | Urgent | 12/04/2012 | | Results for this | | (NA,K,CL,CO2,BUN,CRE | | 7:01 PM | | procedure are in the | | AT,GLUC,CA,PHOS,ALB | | PDT | | results section. | | ) | | | | | + +--------+ + + + | CBC ONLY | Urgent | 12/04/2012 | | Results for this | | | | 7:01 PM | | procedure are in the | | | | PDT | | results section. | + +--------+ + + + | COAGULOPATHY PANEL | Urgent | 12/04/2012 | | Results for this | | (INR,APTT,FIBRINOGEN | | 7:01 PM | | procedure are in the | | ) | | PDT | | results section. | + +--------+ + + + | MAGNESIUM, PLASMA | Urgent | 12/04/2012 | | Results for this | | | | 7:01 PM | | procedure are in the | | | | PDT | | results section. | + +--------+ + + + | TYPE AND SCREEN | Urgent | 12/04/2012 | | Results for this | | | | 5:35 PM | | procedure are in the | | | | PDT | | results section. | + +--------+ + + + | APTT (ACT. PART. | Urgent | 12/04/2012 | | Results for this | | THROMBO TIME) | | 4:52 PM | | procedure are in the | | | | PDT | | results section. | + +--------+ + + + | ANTIBODY SCREEN | Urgent | 12/04/2012 | | Results for this | | | | 4:52 PM | | procedure are in the | | | | PDT | | results section. | + +--------+ + + + | ABO & RH TYPE | Urgent | 12/04/2012 | | Results for this | | | | 4:52 PM | | procedure are in the | | | | PDT | | results section. | + +--------+ + + + | PRODUCT - PLATELET | Routin | 12/04/2012 | | Results for this | | PHERESIS | e | 4:49 PM | | procedure are in the | | LEUKOREDUCED | | PDT | | results section. | + +--------+ + + + | PRODUCT - PLATELET | Extrem | 12/04/2012 | | Results for this | | PHERESIS | e | 4:49 PM | | procedure are in the | | LEUKOREDUCED | Emerge | PDT | | results section. | | | ncy | | | | + +--------+ + + + | PRODUCT - RED CELLS | Routin | 12/04/2012 | | Results for this | | LEUKOREDUCED | e | 4:49 PM | | procedure are in the | | | | PDT | | results section. | + +--------+ + + + | PRODUCT - RED CELLS | Routin | 12/04/2012 | | Results for this | | LEUKOREDUCED | e | 4:49 PM | | procedure are in the | | | | PDT | | results section. | + +--------+ + + + | PRODUCT - RED CELLS | Routin | 12/04/2012 | | Results for this | | LEUKOREDUCED | e | 4:49 PM | | procedure are in the | | | | PDT | | results section. | + +--------+ + + + | PRODUCT - RED CELLS | Routin | 12/04/2012 | | Results for this | | LEUKOREDUCED | e | 4:49 PM | | procedure are in the | | | | PDT | | results section. | + +--------+ + + + | PRODUCT - RED CELLS | Routin | 12/04/2012 | | Results for this | | LEUKOREDUCED | e | 4:49 PM | | procedure are in the | | | | PDT | | results section. | + +--------+ + + + | PRODUCT - RED CELLS | Extrem | 12/04/2012 | | Results for this | | LEUKOREDUCED | e | 4:49 PM | | procedure are in the | | | Emerge | PDT | | results section. | | | ncy | | | | + +--------+ + + + | PRODUCT - FRESH | Routin | 12/04/2012 | | Results for this | | FROZEN PLASMA | e | 4:40 PM | | procedure are in the | | | | PDT | | results section. | + +--------+ + + + | PRODUCT - FRESH | Routin | 12/04/2012 | | Results for this | | FROZEN PLASMA | e | 4:40 PM | | procedure are in the | | | | PDT | | results section. | + +--------+ + + + | PRODUCT - FRESH | Routin | 12/04/2012 | | Results for this | | FROZEN PLASMA | e | 4:40 PM | | procedure are in the | | | | PDT | | results section. | + +--------+ + + + | PRODUCT - FRESH | Extrem | 12/04/2012 | | Results for this | | FROZEN PLASMA | e | 4:40 PM | | procedure are in the | | | Emerge | PDT | | results section. | | | ncy | | | | + +--------+ + + + | PRODUCT - RED CELLS | Routin | 12/04/2012 | | Results for this | | LEUKOREDUCED | e | 4:39 PM | | procedure are in the | | | | PDT | | results section. | + +--------+ + + + | PRODUCT - RED CELLS | Extrem | 12/04/2012 | | Results for this | | LEUKOREDUCED | e | 4:39 PM | | procedure are in the | | | Emerge | PDT | | results section. | | | ncy | | | | + +--------+ + + + | LACTATE, POC | Routin | 12/04/2012 | Coronary artery | Results for this | | | e | 4:33 PM | disease | procedure are in the | | | | PDT | | results section. | + +--------+ + + + | HEMOGLOBIN, POC RESP | Routin | 12/04/2012 | Coronary artery | Results for this | | | e | 4:33 PM | disease | procedure are in the | | | | PDT | | results section. | + +--------+ + + + | IONIZD CA WB, POC | Routin | 12/04/2012 | Coronary artery | Results for this | | RESP | e | 4:33 PM | disease | procedure are in the | | | | PDT | | results section. | + +--------+ + + + | POTASSIUM WB, POC | Routin | 12/04/2012 | Coronary artery | Results for this | | RESP | e | 4:33 PM | disease | procedure are in the | | | | PDT | | results section. | + +--------+ + + + | SODIUM WB, POC RESP | Routin | 12/04/2012 | Coronary artery | Results for this | | | e | 4:33 PM | disease | procedure are in the | | | | PDT | | results section. | + +--------+ + + + | BLOOD GAS ART, POC | Routin | 12/04/2012 | Coronary artery | Results for this | | RESP | e | 4:33 PM | disease | procedure are in the | | | | PDT | | results section. | + +--------+ + + + | CBC ONLY | Urgent | 12/04/2012 | | Results for this | | | | 4:31 PM | | procedure are in the | | | | PDT | | results section. | + +--------+ + + + | TROPONIN I, PLASMA | Urgent | 12/04/2012 | | Results for this | | | | 4:31 PM | | procedure are in the | | | | PDT | | results section. | + +--------+ + + + | COMPLETE METABOLIC | Urgent | 12/04/2012 | | Results for this | | SET | | 4:31 PM | | procedure are in the | | (NA,K,CL,CO2,BUN,CRE | | PDT | | results section. | | AT,GLUC,CA,AST,ALT,B | | | | | | KYLE TOTAL,ALK | | | | | | PHOS,ALB,PROT TOTAL) | | | | | + +--------+ + + + | RENAL FUNCTION SET | Urgent | 12/04/2012 | | Results for this | | (NA,K,CL,CO2,BUN,CRE | | 4:31 PM | | procedure are in the | | AT,GLUC,CA,PHOS,ALB | | PDT | | results section. | | ) | | | | | + +--------+ + + + | CBC ONLY | Urgent | 12/04/2012 | | Results for this | | | | 4:31 PM | | procedure are in the | | | | PDT | | results section. | + +--------+ + + + | LACTATE, POC | Routin | 12/04/2012 | Coronary artery | Results for this | | | e | 4:06 PM | disease | procedure are in the | | | | PDT | | results section. | + +--------+ + + + | HEMOGLOBIN, POC RESP | Routin | 12/04/2012 | Coronary artery | Results for this | | | e | 4:06 PM | disease | procedure are in the | | | | PDT | | results section. | + +--------+ + + + | IONIZD CA WB, POC | Routin | 12/04/2012 | Coronary artery | Results for this | | RESP | e | 4:06 PM | disease | procedure are in the | | | | PDT | | results section. | + +--------+ + + + | POTASSIUM WB, POC | Routin | 12/04/2012 | Coronary artery | Results for this | | RESP | e | 4:06 PM | disease | procedure are in the | | | | PDT | | results section. | + +--------+ + + + | SODIUM WB, POC RESP | Routin | 12/04/2012 | Coronary artery | Results for this | | | e | 4:06 PM | disease | procedure are in the | | | | PDT | | results section. | + +--------+ + + + | BLOOD GAS ART, POC | Routin | 12/04/2012 | Coronary artery | Results for this | | RESP | e | 4:06 PM | disease | procedure are in the | | | | PDT | | results section. | + +--------+ + + + | CAPILLARY BLOOD | Routin | 12/04/2012 | | Results for this | | GLUCOSE (NO CHG), | e | 3:42 PM | | procedure are in the | | POC | | PDT | | results section. | + +--------+ + + + | CBC ONLY | Urgent | 12/04/2012 | | Results for this | | | | 3:39 PM | | procedure are in the | | | | PDT | | results section. | + +--------+ + + + | CBC ONLY | Urgent | 12/04/2012 | | Results for this | | | | 3:39 PM | | procedure are in the | | | | PDT | | results section. | + +--------+ + + + | RENAL FUNCTION SET | Urgent | 12/04/2012 | | Results for this | | (NA,K,CL,CO2,BUN,CRE | | 3:37 PM | | procedure are in the | | AT,GLUC,CA,PHOS,ALB | | PDT | | results section. | | ) | | | | | + +--------+ + + + | LACTATE | Urgent | 12/04/2012 | | Results for this | | | | 3:37 PM | | procedure are in the | | | | PDT | | results section. | + +--------+ + + + | MAGNESIUM, PLASMA | Urgent | 12/04/2012 | | Results for this | | | | 3:37 PM | | procedure are in the | | | | PDT | | results section. | + +--------+ + + + | CO-OXIMETER PANEL, | Urgent | 12/04/2012 | | Results for this | | BLOOD | | 3:37 PM | | procedure are in the | | | | PDT | | results section. | + +--------+ + + + | LACTATE, POC | Routin | 12/04/2012 | Coronary artery | Results for this | | | e | 3:33 PM | disease | procedure are in the | | | | PDT | | results section. | + +--------+ + + + | HEMOGLOBIN, POC RESP | Routin | 12/04/2012 | Coronary artery | Results for this | | | e | 3:33 PM | disease | procedure are in the | | | | PDT | | results section. | + +--------+ + + + | CHRISTINE VAZQUEZ WB, POC | Routin | 12/04/2012 | Coronary artery | Results for this | | RESP | e | 3:33 PM | disease | procedure are in the | | | | PDT | | results section. | + +--------+ + + + | POTASSIUM WB, POC | Routin | 12/04/2012 | Coronary artery | Results for this | | RESP | e | 3:33 PM | disease | procedure are in the | | | | PDT | | results section. | + +--------+ + + + | SODIUM WB, POC RESP | Routin | 12/04/2012 | Coronary artery | Results for this | | | e | 3:33 PM | disease | procedure are in the | | | | PDT | | results section. | + +--------+ + + + | BLOOD GAS ART, POC | Routin | 12/04/2012 | Coronary artery | Results for this | | RESP | e | 3:33 PM | disease | procedure are in the | | | | PDT | | results section. | + +--------+ + + + | X-RAY PORTABLE CHEST | Urgent | 12/04/2012 | | Results for this | | 1 VIEW | | 3:25 PM | | procedure are in the | | | | PDT | | results section. | + +--------+ + + + | LACTATE, POC | Routin | 12/04/2012 | Coronary artery | Results for this | | | e | 2:46 PM | disease | procedure are in the | | | | PDT | | results section. | + +--------+ + + + | HEMOGLOBIN, POC RESP | Routin | 12/04/2012 | Coronary artery | Results for this | | | e | 2:46 PM | disease | procedure are in the | | | | PDT | | results section. | + +--------+ + + + | IONGRANT CA WB, POC | Routin | 12/04/2012 | Coronary artery | Results for this | | RESP | e | 2:46 PM | disease | procedure are in the | | | | PDT | | results section. | + +--------+ + + + | POTASSIUM WB, POC | Routin | 12/04/2012 | Coronary artery | Results for this | | RESP | e | 2:46 PM | disease | procedure are in the | | | | PDT | | results section. | + +--------+ + + + | SODIUM WB, POC RESP | Routin | 12/04/2012 | Coronary artery | Results for this | | | e | 2:46 PM | disease | procedure are in the | | | | PDT | | results section. | + +--------+ + + + | BLOOD GAS ART, POC | Routin | 12/04/2012 | Coronary artery | Results for this | | RESP | e | 2:46 PM | disease | procedure are in the | | | | PDT | | results section. | + +--------+ + + + | LACTATE | Urgent | 12/04/2012 | | Results for this | | | | 11:51 AM | | procedure are in the | | | | PDT | | results section. | + +--------+ + + + | X-RAY PORTABLE CHEST | Urgent | 12/04/2012 | | Results for this | | 1 VIEW | | 9:58 AM | | procedure are in the | | | | PDT | | results section. | + +--------+ + + + | BLOOD GASES, | Urgent | 12/04/2012 | | Results for this | | ARTERIAL - LAB | | 9:25 AM | | procedure are in the | | | | PDT | | results section. | + +--------+ + + + | CBC ONLY | Routin | 12/04/2012 | | Results for this | | | e | 8:37 AM | | procedure are in the | | | | PDT | | results section. | + +--------+ + + + | HEPARIN, EITHER | Routin | 12/04/2012 | | Results for this | | STANDARD / LMW, | e | 8:37 AM | | procedure are in the | | BLOOD | | PDT | | results section. | + +--------+ + + + | INR | Routin | 12/04/2012 | | Results for this | | | e | 8:37 AM | | procedure are in the | | | | PDT | | results section. | + +--------+ + + + | RENAL FUNCTION SET | Routin | 12/04/2012 | | Results for this | | (NA,K,CL,CO2,BUN,CRE | e | 8:37 AM | | procedure are in the | | AT,GLUC,CA,PHOS,ALB | | PDT | | results section. | | ) | | | | | + +--------+ + + + | CBC ONLY | Routin | 12/04/2012 | | Results for this | | | e | 8:37 AM | | procedure are in the | | | | PDT | | results section. | + +--------+ + + + | MAGNESIUM, PLASMA | Routin | 12/04/2012 | | Results for this | | | e | 8:37 AM | | procedure are in the | | | | PDT | | results section. | + +--------+ + + + | CAPILLARY BLOOD | Routin | 12/04/2012 | | Results for this | | GLUCOSE (NO CHG), | e | 8:06 AM | | procedure are in the | | POC | | PDT | | results section. | + +--------+ + + + | TRANSTHORACIC | Urgent | 12/04/2012 | | Results for this | | ECHOCARDIOGRAM, | | 12:00 AM | | procedure are in the | | ADULT | | PDT | | results section. | + +--------+ + + + | 12 LEAD ECG | Routin | 12/03/2012 | | Results for this | | | e | 11:38 PM | | procedure are in the | | | | PDT | | results section. | + +--------+ + + + | CAPILLARY BLOOD | Routin | 12/03/2012 | | Results for this | | GLUCOSE (NO CHG), | e | 11:23 PM | | procedure are in the | | POC | | PDT | | results section. | + +--------+ + + + | HEPARIN, EITHER | Urgent | 12/03/2012 | | Results for this | | STANDARD / LMW, | | 8:37 PM | | procedure are in the | | BLOOD | | PDT | | results section. | + +--------+ + + + | APTT (ACT. PART. | Routin | 12/03/2012 | | Results for this | | THROMBO TIME) | e | 8:37 PM | | procedure are in the | | | | PDT | | results section. | + +--------+ + + + | CAPILLARY BLOOD | Routin | 12/03/2012 | | Results for this | | GLUCOSE (NO CHG), | e | 2:16 PM | | procedure are in the | | POC | | PDT | | results section. | + +--------+ + + + | HEPARIN, EITHER | Routin | 12/03/2012 | | Results for this | | STANDARD / LMW, | e | 2:13 PM | | procedure are in the | | BLOOD | | PDT | | results section. | + +--------+ + + + | APTT (ACT. PART. | Routin | 12/03/2012 | | Results for this | | THROMBO TIME) | e | 2:13 PM | | procedure are in the | | | | PDT | | results section. | + +--------+ + + + | CAPILLARY BLOOD | Routin | 12/03/2012 | | Results for this | | GLUCOSE (NO CHG), | e | 9:58 AM | | procedure are in the | | POC | | PDT | | results section. | + +--------+ + + + | CBC ONLY | Urgent | 12/03/2012 | | Results for this | | | | 4:01 AM | | procedure are in the | | | | PDT | | results section. | + +--------+ + + + | HEPARIN, EITHER | Urgent | 12/03/2012 | | Results for this | | STANDARD / LMW, | | 4:01 AM | | procedure are in the | | BLOOD | | PDT | | results section. | + +--------+ + + + | INR | Urgent | 12/03/2012 | | Results for this | | | | 4:01 AM | | procedure are in the | | | | PDT | | results section. | + +--------+ + + + | RENAL FUNCTION SET | Urgent | 12/03/2012 | | Results for this | | (NA,K,CL,CO2,BUN,CRE | | 4:01 AM | | procedure are in the | | AT,GLUC,CA,PHOS,ALB | | PDT | | results section. | | ) | | | | | + +--------+ + + + | CBC ONLY | Urgent | 12/03/2012 | | Results for this | | | | 4:01 AM | | procedure are in the | | | | PDT | | results section. | + +--------+ + + + | MAGNESIUM, PLASMA | Urgent | 12/03/2012 | | Results for this | | | | 4:01 AM | | procedure are in the | | | | PDT | | results section. | + +--------+ + + + | CAPILLARY BLOOD | Routin | 12/02/2012 | | Results for this | | GLUCOSE (NO CHG), | e | 9:50 PM | | procedure are in the | | POC | | PST | | results section. | + +--------+ + + + | HEPARIN, EITHER | Urgent | 12/02/2012 | | Results for this | | STANDARD / LMW, | | 6:49 PM | | procedure are in the | | BLOOD | | PST | | results section. | + +--------+ + + + | CAPILLARY BLOOD | Routin | 12/02/2012 | | Results for this | | GLUCOSE (NO CHG), | e | 5:29 PM | | procedure are in the | | POC | | PST | | results section. | + +--------+ + + + | CAPILLARY BLOOD | Routin | 12/02/2012 | | Results for this | | GLUCOSE (NO CHG), | e | 12:00 PM | | procedure are in the | | POC | | PST | | results section. | + +--------+ + + + | CAPILLARY BLOOD | Routin | 12/02/2012 | | Results for this | | GLUCOSE (NO CHG), | e | 8:43 AM | | procedure are in the | | POC | | PST | | results section. | + +--------+ + + + | CAPILLARY BLOOD | Routin | 12/02/2012 | | Results for this | | GLUCOSE (NO CHG), | e | 6:05 AM | | procedure are in the | | POC | | PST | | results section. | + +--------+ + + + | HEPARIN, EITHER | Urgent | 12/02/2012 | | Results for this | | STANDARD / LMW, | | 6:00 AM | | procedure are in the | | BLOOD | | PST | | results section. | + +--------+ + + + | CBC ONLY | Urgent | 12/02/2012 | | Results for this | | | | 2:59 AM | | procedure are in the | | | | PST | | results section. | + +--------+ + + + | INR | Urgent | 12/02/2012 | | Results for this | | | | 2:59 AM | | procedure are in the | | | | PST | | results section. | + +--------+ + + + | RENAL FUNCTION SET | Urgent | 12/02/2012 | | Results for this | | (NA,K,CL,CO2,BUN,CRE | | 2:59 AM | | procedure are in the | | AT,GLUC,CA,PHOS,ALB | | PST | | results section. | | ) | | | | | + +--------+ + + + | CBC ONLY | Urgent | 12/02/2012 | | Results for this | | | | 2:59 AM | | procedure are in the | | | | PST | | results section. | + +--------+ + + + | MAGNESIUM, PLASMA | Urgent | 12/02/2012 | | Results for this | | | | 2:59 AM | | procedure are in the | | | | PST | | results section. | + +--------+ + + + | CAPILLARY BLOOD | Routin | 12/01/2012 | | Results for this | | GLUCOSE (NO CHG), | e | 11:05 PM | | procedure are in the | | POC | | PST | | results section. | + +--------+ + + + | CAPILLARY BLOOD | Routin | 12/01/2012 | | Results for this | | GLUCOSE (NO CHG), | e | 8:23 PM | | procedure are in the | | POC | | PST | | results section. | + +--------+ + + + | HEPARIN, EITHER | Urgent | 12/01/2012 | | Results for this | | STANDARD / LMW, | | 8:06 PM | | procedure are in the | | BLOOD | | PST | | results section. | + +--------+ + + + | CAPILLARY BLOOD | Routin | 12/01/2012 | | Results for this | | GLUCOSE (NO CHG), | e | 6:59 PM | | procedure are in the | | POC | | PST | | results section. | + +--------+ + + + | CAPILLARY BLOOD | Routin | 12/01/2012 | | Results for this | | GLUCOSE (NO CHG), | e | 6:07 PM | | procedure are in the | | POC | | PST | | results section. | + +--------+ + + + | CAPILLARY BLOOD | Routin | 12/01/2012 | | Results for this | | GLUCOSE (NO CHG), | e | 5:00 PM | | procedure are in the | | POC | | PST | | results section. | + +--------+ + + + | CAPILLARY BLOOD | Routin | 12/01/2012 | | Results for this | | GLUCOSE (NO CHG), | e | 3:04 PM | | procedure are in the | | POC | | PST | | results section. | + +--------+ + + + | HEPARIN, EITHER | Urgent | 12/01/2012 | | Results for this | | STANDARD / LMW, | | 1:32 PM | | procedure are in the | | BLOOD | | PST | | results section. | + +--------+ + + + | POTASSIUM, PLASMA | Urgent | 12/01/2012 | | Results for this | | | | 1:32 PM | | procedure are in the | | | | PST | | results section. | + +--------+ + + + | CAPILLARY BLOOD | Routin | 12/01/2012 | | Results for this | | GLUCOSE (NO CHG), | e | 1:30 PM | | procedure are in the | | POC | | PST | | results section. | + +--------+ + + + | CAPILLARY BLOOD | Routin | 12/01/2012 | | Results for this | | GLUCOSE (NO CHG), | e | 11:12 AM | | procedure are in the | | POC | | PST | | results section. | + +--------+ + + + | CAPILLARY BLOOD | Routin | 12/01/2012 | | Results for this | | GLUCOSE (NO CHG), | e | 9:14 AM | | procedure are in the | | POC | | PST | | results section. | + +--------+ + + + | CAPILLARY BLOOD | Routin | 12/01/2012 | | Results for this | | GLUCOSE (NO CHG), | e | 8:08 AM | | procedure are in the | | POC | | PST | | results section. | + +--------+ + + + | CAPILLARY BLOOD | Routin | 12/01/2012 | | Results for this | | GLUCOSE (NO CHG), | e | 6:54 AM | | procedure are in the | | POC | | PST | | results section. | + +--------+ + + + | X-RAY CHEST 1 VIEW | Urgent | 12/01/2012 | | Results for this | | | | 5:49 AM | | procedure are in the | | | | PST | | results section. | + +--------+ + + + | CAPILLARY BLOOD | Routin | 12/01/2012 | | Results for this | | GLUCOSE (NO CHG), | e | 5:41 AM | | procedure are in the | | POC | | PST | | results section. | + +--------+ + + + | CAPILLARY BLOOD | Routin | 12/01/2012 | | Results for this | | GLUCOSE (NO CHG), | e | 3:36 AM | | procedure are in the | | POC | | PST | | results section. | + +--------+ + + + | CBC AND AUTO DIFF | Urgent | 12/01/2012 | | Results for this | | | | 1:47 AM | | procedure are in the | | | | PST | | results section. | + +--------+ + + + | HEPARIN, EITHER | Urgent | 12/01/2012 | | Results for this | | STANDARD / LMW, | | 1:47 AM | | procedure are in the | | BLOOD | | PST | | results section. | + +--------+ + + + | CBC, WITH | Urgent | 12/01/2012 | | Results for this | | DIFFERENTIAL | | 1:47 AM | | procedure are in the | | | | PST | | results section. | + +--------+ + + + | RENAL FUNCTION SET | Urgent | 12/01/2012 | | Results for this | | (NA,K,CL,CO2,BUN,CRE | | 1:47 AM | | procedure are in the | | AT,GLUC,CA,PHOS,ALB | | PST | | results section. | | ) | | | | | + +--------+ + + + | LACTATE | Urgent | 12/01/2012 | | Results for this | | | | 1:47 AM | | procedure are in the | | | | PST | | results section. | + +--------+ + + + | MAGNESIUM, PLASMA | Urgent | 12/01/2012 | | Results for this | | | | 1:47 AM | | procedure are in the | | | | PST | | results section. | + +--------+ + + + | CAPILLARY BLOOD | Routin | 12/01/2012 | | Results for this | | GLUCOSE (NO CHG), | e | 1:45 AM | | procedure are in the | | POC | | PST | | results section. | + +--------+ + + + | CAPILLARY BLOOD | Routin | 12/01/2012 | | Results for this | | GLUCOSE (NO CHG), | e | 12:20 AM | | procedure are in the | | POC | | PST | | results section. | + +--------+ + + + | CAPILLARY BLOOD | Routin | 11/30/2012 | | Results for this | | GLUCOSE (NO CHG), | e | 11:25 PM | | procedure are in the | | POC | | PST | | results section. | + +--------+ + + + | RAINBOW HOLD TUBE - | Urgent | 11/30/2012 | | | | GREEN TOP | | 11:01 PM | | | | | | PST | | | + +--------+ + + + | POTASSIUM, WHOLE | Urgent | 11/30/2012 | | Results for this | | BLOOD | | 10:51 PM | | procedure are in the | | | | PST | | results section. | + +--------+ + + + | LACTATE | Urgent | 11/30/2012 | | Results for this | | | | 10:51 PM | | procedure are in the | | | | PST | | results section. | + +--------+ + + + | CAPILLARY BLOOD | Routin | 11/30/2012 | | Results for this | | GLUCOSE (NO CHG), | e | 10:47 PM | | procedure are in the | | POC | | PST | | results section. | + +--------+ + + + | CAPILLARY BLOOD | Routin | 11/30/2012 | | Results for this | | GLUCOSE (NO CHG), | e | 9:43 PM | | procedure are in the | | POC | | PST | | results section. | + +--------+ + + + | CAPILLARY BLOOD | Routin | 11/30/2012 | | Results for this | | GLUCOSE (NO CHG), | e | 8:14 PM | | procedure are in the | | POC | | PST | | results section. | + +--------+ + + + | CAPILLARY BLOOD | Routin | 11/30/2012 | | Results for this | | GLUCOSE (NO CHG), | e | 6:37 PM | | procedure are in the | | POC | | PST | | results section. | + +--------+ + + + | CAPILLARY BLOOD | Routin | 11/30/2012 | | Results for this | | GLUCOSE (NO CHG), | e | 4:09 PM | | procedure are in the | | POC | | PST | | results section. | + +--------+ + + + | CAPILLARY BLOOD | Routin | 11/30/2012 | | Results for this | | GLUCOSE (NO CHG), | e | 3:02 PM | | procedure are in the | | POC | | PST | | results section. | + +--------+ + + + | CAPILLARY BLOOD | Routin | 11/30/2012 | | Results for this | | GLUCOSE (NO CHG), | e | 2:20 PM | | procedure are in the | | POC | | PST | | results section. | + +--------+ + + + | CBC ONLY | Urgent | 11/30/2012 | | Results for this | | | | 11:51 AM | | procedure are in the | | | | PST | | results section. | + +--------+ + + + | RENAL FUNCTION SET | Urgent | 11/30/2012 | | Results for this | | (NA,K,CL,CO2,BUN,CRE | | 11:51 AM | | procedure are in the | | AT,GLUC,CA,PHOS,ALB | | PST | | results section. | | ) | | | | | + +--------+ + + + | CBC ONLY | Urgent | 11/30/2012 | | Results for this | | | | 11:51 AM | | procedure are in the | | | | PST | | results section. | + +--------+ + + + | LACTATE | Urgent | 11/30/2012 | | Results for this | | | | 11:51 AM | | procedure are in the | | | | PST | | results section. | + +--------+ + + + | CAPILLARY BLOOD | Routin | 11/30/2012 | | Results for this | | GLUCOSE (NO CHG), | e | 11:49 AM | | procedure are in the | | POC | | PST | | results section. | + +--------+ + + + | X-RAY PORTABLE CHEST | Routin | 11/30/2012 | | Results for this | | 1 VIEW | e | 11:23 AM | | procedure are in the | | | | PST | | results section. | + +--------+ + + + | CAPILLARY BLOOD | Routin | 11/30/2012 | | Results for this | | GLUCOSE (NO CHG), | e | 10:30 AM | | procedure are in the | | POC | | PST | | results section. | + +--------+ + + + | CULTURE, BLOOD BACTI | Urgent | 11/30/2012 | | Results for this | | & YEAST [facility] | | 8:39 AM | | procedure are in the | | | | PST | | results section. | + +--------+ + + + | UA, DIPSTICK ONLY | Urgent | 11/30/2012 | | Results for this | | | | 8:39 AM | | procedure are in the | | | | PST | | results section. | + +--------+ + + + | URINE, MICROSCOPIC | Urgent | 11/30/2012 | | Results for this | | EXAM | | 8:39 AM | | procedure are in the | | | | PST | | results section. | + +--------+ + + + | URINE SCREEN FOR | Urgent | 11/30/2012 | | Results for this | | CULTURE | | 8:39 AM | | procedure are in the | | | | PST | | results section. | + +--------+ + + + | CULTURE, BLOOD BACTI | Urgent | 11/30/2012 | | Results for this | | & YEAST | | 8:39 AM | | procedure are in the | | | | PST | | results section. | + +--------+ + + + | CULTURE, URINE BACTI | Routin | 11/30/2012 | | Results for this | | | e | 8:39 AM | | procedure are in the | | | | PST | | results section. | + +--------+ + + + | BLOOD CULTURE WORKUP | Urgent | 11/30/2012 | | Results for this | | | | 8:38 AM | | procedure are in the | | | | PST | | results section. | + +--------+ + + + | CULTURE, BLOOD BACTI | Urgent | 11/30/2012 | | Results for this | | & YEAST [facility] | | 8:38 AM | | procedure are in the | | | | PST | | results section. | + +--------+ + + + | CBC AND AUTO DIFF | Urgent | 11/30/2012 | | Results for this | | | | 8:38 AM | | procedure are in the | | | | PST | | results section. | + +--------+ + + + | CBC, WITH | Urgent | 11/30/2012 | | Results for this | | DIFFERENTIAL | | 8:38 AM | | procedure are in the | | | | PST | | results section. | + +--------+ + + + | CULTURE, BLOOD BACTI | Urgent | 11/30/2012 | | Results for this | | & YEAST | | 8:38 AM | | procedure are in the | | | | PST | | results section. | + +--------+ + + + | CAPILLARY BLOOD | Routin | 11/30/2012 | | Results for this | | GLUCOSE (NO CHG), | e | 8:24 AM | | procedure are in the | | POC | | PST | | results section. | + +--------+ + + + | CAPILLARY BLOOD | Routin | 11/30/2012 | | Results for this | | GLUCOSE (NO CHG), | e | 6:33 AM | | procedure are in the | | POC | | PST | | results section. | + +--------+ + + + | X-RAY CHEST 1 VIEW | Urgent | 11/30/2012 | | Results for this | | | | 5:57 AM | | procedure are in the | | | | PST | | results section. | + +--------+ + + + | CAPILLARY BLOOD | Routin | 11/30/2012 | | Results for this | | GLUCOSE (NO CHG), | e | 5:03 AM | | procedure are in the | | POC | | PST | | results section. | + +--------+ + + + | POTASSIUM, PLASMA | Urgent | 11/30/2012 | | Results for this | | | | 5:01 AM | | procedure are in the | | | | PST | | results section. | + +--------+ + + + | CAPILLARY BLOOD | Routin | 11/30/2012 | | Results for this | | GLUCOSE (NO CHG), | e | 4:00 AM | | procedure are in the | | POC | | PST | | results section. | + +--------+ + + + | LACTATE | Urgent | 11/30/2012 | | Results for this | | | | 3:58 AM | | procedure are in the | | | | PST | | results section. | + +--------+ + + + | CAPILLARY BLOOD | Routin | 11/30/2012 | | Results for this | | GLUCOSE (NO CHG), | e | 3:00 AM | | procedure are in the | | POC | | PST | | results section. | + +--------+ + + + | CAPILLARY BLOOD | Routin | 11/30/2012 | | Results for this | | GLUCOSE (NO CHG), | e | 1:52 AM | | procedure are in the | | POC | | PST | | results section. | + +--------+ + + + | CBC ONLY | Urgent | 11/30/2012 | | Results for this | | | | 1:49 AM | | procedure are in the | | | | PST | | results section. | + +--------+ + + + | RENAL FUNCTION SET | Urgent | 11/30/2012 | | Results for this | | (NA,K,CL,CO2,BUN,CRE | | 1:49 AM | | procedure are in the | | AT,GLUC,CA,PHOS,ALB | | PST | | results section. | | ) | | | | | + +--------+ + + + | CBC ONLY | Urgent | 11/30/2012 | | Results for this | | | | 1:49 AM | | procedure are in the | | | | PST | | results section. | + +--------+ + + + | MAGNESIUM, PLASMA | Urgent | 11/30/2012 | | Results for this | | | | 1:49 AM | | procedure are in the | | | | PST | | results section. | + +--------+ + + + | BLOOD GASES, | Urgent | 11/30/2012 | | Results for this | | ARTERIAL - LAB | | 1:48 AM | | procedure are in the | | | | PST | | results section. | + +--------+ + + + | CAPILLARY BLOOD | Routin | 11/30/2012 | | Results for this | | GLUCOSE (NO CHG), | e | 12:35 AM | | procedure are in the | | POC | | PST | | results section. | + +--------+ + + + | BLOOD GASES, | Urgent | 11/30/2012 | | Results for this | | ARTERIAL - LAB | | 12:31 AM | | procedure are in the | | | | PST | | results section. | + +--------+ + + + | TRANSTHORACIC | Urgent | 11/30/2012 | | Results for this | | ECHOCARDIOGRAM, | | 12:00 AM | | procedure are in the | | ADULT | | PST | | results section. | + +--------+ + + + | POTASSIUM, PLASMA | Urgent | 11/29/2012 | | Results for this | | | | 11:41 PM | | procedure are in the | | | | PST | | results section. | + +--------+ + + + | BLOOD GASES, | Urgent | 11/29/2012 | | Results for this | | ARTERIAL - LAB | | 11:40 PM | | procedure are in the | | | | PST | | results section. | + +--------+ + + + | CAPILLARY BLOOD | Routin | 11/29/2012 | | Results for this | | GLUCOSE (NO CHG), | e | 11:38 PM | | procedure are in the | | POC | | PST | | results section. | + +--------+ + + + | CAPILLARY BLOOD | Routin | 11/29/2012 | | Results for this | | GLUCOSE (NO CHG), | e | 10:47 PM | | procedure are in the | | POC | | PST | | results section. | + +--------+ + + + | 12 LEAD ECG | Routin | 11/29/2012 | | Results for this | | | e | 10:03 PM | | procedure are in the | | | | PST | | results section. | + +--------+ + + + | 12 LEAD ECG | Routin | 11/29/2012 | | Results for this | | | e | 10:03 PM | | procedure are in the | | | | PST | | results section. | + +--------+ + + + | CO-OXIMETER PANEL, | Urgent | 11/29/2012 | | Results for this | | BLOOD | | 9:45 PM | | procedure are in the | | | | PST | | results section. | + +--------+ + + + | X-RAY CHEST 1 VIEW | Urgent | 11/29/2012 | | Results for this | | | | 9:35 PM | | procedure are in the | | | | PST | | results section. | + +--------+ + + + | CAPILLARY BLOOD | Routin | 11/29/2012 | | Results for this | | GLUCOSE (NO CHG), | e | 9:19 PM | | procedure are in the | | POC | | PST | | results section. | + +--------+ + + + | CALCIUM, IONIZED, | Urgent | 11/29/2012 | | Results for this | | WHOLE BLOOD | | 9:11 PM | | procedure are in the | | | | PST | | results section. | + +--------+ + + + | BLOOD GASES, | Urgent | 11/29/2012 | | Results for this | | ARTERIAL - LAB | | 9:11 PM | | procedure are in the | | | | PST | | results section. | + +--------+ + + + | CBC ONLY | Urgent | 11/29/2012 | | Results for this | | | | 9:10 PM | | procedure are in the | | | | PST | | results section. | + +--------+ + + + | INR | Urgent | 11/29/2012 | | Results for this | | | | 9:10 PM | | procedure are in the | | | | PST | | results section. | + +--------+ + + + | RENAL FUNCTION SET | Urgent | 11/29/2012 | | Results for this | | (NA,K,CL,CO2,BUN,CRE | | 9:10 PM | | procedure are in the | | AT,GLUC,CA,PHOS,ALB | | PST | | results section. | | ) | | | | | + +--------+ + + + | CBC ONLY | Urgent | 11/29/2012 | | Results for this | | | | 9:10 PM | | procedure are in the | | | | PST | | results section. | + +--------+ + + + | APTT (ACT. PART. | Urgent | 11/29/2012 | | Results for this | | THROMBO TIME) | | 9:10 PM | | procedure are in the | | | | PST | | results section. | + +--------+ + + + | MAGNESIUM, PLASMA | Urgent | 11/29/2012 | | Results for this | | | | 9:10 PM | | procedure are in the | | | | PST | | results section. | + +--------+ + + + | CBC AND AUTO DIFF | Urgent | 11/29/2012 | | Results for this | | | | 8:13 PM | | procedure are in the | | | | PST | | results section. | + +--------+ + + + | CBC, WITH | Urgent | 11/29/2012 | | Results for this | | DIFFERENTIAL | | 8:13 PM | | procedure are in the | | | | PST | | results section. | + +--------+ + + + | COAGULOPATHY PANEL | Urgent | 11/29/2012 | | Results for this | | (INR,APTT,FIBRINOGEN | | 8:13 PM | | procedure are in the | | ) | | PST | | results section. | + +--------+ + + + | CORONARY ARTERY | Electi | 11/29/2012 | Coronary | | | BYPASS GRAFTING | ve | 3:29 PM | atherosclerosis of | | | | Surgic | PST | unspecified type of | | | | al | | vessel, little river or | | | | | | graft | | + +--------+ + + + +---+--------+ | | | | | Specia | | | l | | | Needs | | | PT | | | ADMIT | | | 03-03 | | | FOR | | | ANTI-C | | | OAG | | | TREATM | | | ENT; | | | ICU | | | POST-8 | | | CSI | | | TEAM | +---+--------+ + +--------+ +---+ + | BASIC METABOLIC SET | Routin | 11/29/2012 | | Results for this | | (NA, K, CL, TCO2, | e | 5:41 AM | | procedure are in the | | BUN, CR, GLU, CA) | | PST | | results section. | + +--------+ +---+ + | CAPILLARY BLOOD | Routin | 11/28/2012 | | Results for this | | GLUCOSE (NO CHG), | e | 5:31 PM | | procedure are in the | | POC | | PST | | results section. | + +--------+ +---+ + | CAPILLARY BLOOD | Routin | 11/28/2012 | | Results for this | | GLUCOSE (NO CHG), | e | 12:22 PM | | procedure are in the | | POC | | PST | | results section. | + +--------+ +---+ + | CAPILLARY BLOOD | Routin | 11/28/2012 | | Results for this | | GLUCOSE (NO CHG), | e | 8:49 AM | | procedure are in the | | POC | | PST | | results section. | + +--------+ +---+ + | CBC ONLY | Urgent | 11/28/2012 | | Results for this | | | | 6:15 AM | | procedure are in the | | | | PST | | results section. | + +--------+ +---+ + | CONFIRMATORY ABO/RH | Routin | 11/28/2012 | | Results for this | | | e | 6:15 AM | | procedure are in the | | | | PST | | results section. | + +--------+ +---+ + | HEPARIN, EITHER | Routin | 11/28/2012 | | Results for this | | STANDARD / LMW, | e | 6:15 AM | | procedure are in the | | BLOOD | | PST | | results section. | + +--------+ +---+ + | RENAL FUNCTION SET | Routin | 11/28/2012 | | Results for this | | (NA,K,CL,CO2,BUN,CRE | e | 6:15 AM | | procedure are in the | | AT,GLUC,CA,PHOS,ALB | | PST | | results section. | | ) | | | | | + +--------+ +---+ + | CBC ONLY | Urgent | 11/28/2012 | | Results for this | | | | 6:15 AM | | procedure are in the | | | | PST | | results section. | + +--------+ +---+ + | CAPILLARY BLOOD | Routin | 11/27/2012 | | Results for this | | GLUCOSE (NO CHG), | e | 5:55 PM | | procedure are in the | | POC | | PST | | results section. | + +--------+ +---+ + | CAPILLARY BLOOD | Routin | 11/27/2012 | | Results for this | | GLUCOSE (NO CHG), | e | 12:44 PM | | procedure are in the | | POC | | PST | | results section. | + +--------+ +---+ + | VASC LAB VEIN | Routin | 11/27/2012 | | Results for this | | MAPPING LOWER | e | 12:04 PM | | procedure are in the | | EXTREMITY BILAT | | PST | | results section. | + +--------+ +---+ + | HEPARIN, EITHER | Routin | 11/27/2012 | | Results for this | | STANDARD / LMW, | e | 11:24 AM | | procedure are in the | | BLOOD | | PST | | results section. | + +--------+ +---+ + | ANTIBODY SCREEN | Routin | 11/27/2012 | | Results for this | | | e | 11:24 AM | | procedure are in the | | | | PST | | results section. | + +--------+ +---+ + | TYPE AND SCREEN | Routin | 11/27/2012 | | Results for this | | | e | 11:24 AM | | procedure are in the | | | | PST | | results section. | + +--------+ +---+ + | ABO & RH TYPE | Routin | 11/27/2012 | | Results for this | | | e | 11:24 AM | | procedure are in the | | | | PST | | results section. | + +--------+ +---+ + | PRODUCT - FRESH | Routin | 11/27/2012 | | Results for this | | FROZEN PLASMA | e | 7:50 AM | | procedure are in the | | | | PST | | results section. | + +--------+ +---+ + | PRODUCT - FRESH | Routin | 11/27/2012 | | Results for this | | FROZEN PLASMA | e | 7:50 AM | | procedure are in the | | | | PST | | results section. | + +--------+ +---+ + | CAPILLARY BLOOD | Routin | 11/27/2012 | | Results for this | | GLUCOSE (NO CHG), | e | 7:22 AM | | procedure are in the | | POC | | PST | | results section. | + +--------+ +---+ + | CBC ONLY | Urgent | 11/27/2012 | | Results for this | | | | 3:09 AM | | procedure are in the | | | | PST | | results section. | + +--------+ +---+ + | HEPARIN, EITHER | Urgent | 11/27/2012 | | Results for this | | STANDARD / LMW, | | 3:09 AM | | procedure are in the | | BLOOD | | PST | | results section. | + +--------+ +---+ + | CBC ONLY | Urgent | 11/27/2012 | | Results for this | | | | 3:09 AM | | procedure are in the | | | | PST | | results section. | + +--------+ +---+ + | UA, DIPSTICK ONLY | Routin | 11/27/2012 | | Results for this | | | e | 1:49 AM | | procedure are in the | | | | PST | | results section. | + +--------+ +---+ + | TRANSTHORACIC | Routin | 11/27/2012 | | Results for this | | ECHOCARDIOGRAM, | e | 12:00 AM | | procedure are in the | | ADULT | | PST | | results section. | + +--------+ +---+ + | CAPILLARY BLOOD | Routin | 11/26/2012 | | Results for this | | GLUCOSE (NO CHG), | e | 8:25 PM | | procedure are in the | | POC | | PST | | results section. | + +--------+ +---+ + | X-RAY CHEST 2 VIEW | Routin | 11/26/2012 | | Results for this | | | e | 8:15 PM | | procedure are in the | | | | PST | | results section. | + +--------+ +---+ + | CBC AND AUTO DIFF | Routin | 11/26/2012 | | Results for this | | | e | 7:55 PM | | procedure are in the | | | | PST | | results section. | + +--------+ +---+ + | INR | Routin | 11/26/2012 | | Results for this | | | e | 7:55 PM | | procedure are in the | | | | PST | | results section. | + +--------+ +---+ + | CBC, WITH | Routin | 11/26/2012 | | Results for this | | DIFFERENTIAL | e | 7:55 PM | | procedure are in the | | | | PST | | results section. | + +--------+ +---+ + | RENAL FUNCTION SET | Routin | 11/26/2012 | | Results for this | | (NA,K,CL,CO2,BUN,CRE | e | 7:55 PM | | procedure are in the | | AT,GLUC,CA,PHOS,ALB | | PST | | results section. | | ) | | | | | + +--------+ +---+ + | APTT (ACT. PART. | Routin | 11/26/2012 | | Results for this | | THROMBO TIME) | e | 7:55 PM | | procedure are in the | | | | PST | | results section. | + +--------+ +---+ + | HEMOGLOBIN A1C, | Routin | 11/26/2012 | | Results for this | | BLOOD | e | 7:55 PM | | procedure are in the | | | | PST | | results section. | + +--------+ +---+ + | ORDERS OTHER | | 11/26/2012 | | Results for this | | | | 12:00 AM | | procedure are in the | | | | PST | | results section. | + +--------+ +---+ + | ORDERS OTHER | | 11/26/2012 | | Results for this | | | | 12:00 AM | | procedure are in the | | | | PST | | results section. | + +--------+ +---+ + documented in this encounter Results PROCEDURE NOTE (10/30/2015 11:23 PM PST)PROCEDURE NOTE (10/30/2015 11:23 PM PST)PROCEDURE N OTE (10/30/2015 11:23 PM PST)PROCEDURE NOTE (10/30/2015 11:23 PM PST)ICU CENTRAL LINE PLACEM ENT WITH ULTRASOUND GUIDANCE (10/30/2015 11:16 PM PST)PROCEDURE NOTE (10/30/2015 11:07 PM PS T) + + | Transcriptions | + + | Other, Faculty - 12/27/2012 10:32 AM PDT | + + OPERATION RECORD (12/28/2012 1:54 PM PDT) + + | Transcriptions | + + | Helen Gee MD - 12/09/2012 8:34 AM PDT Date: 12/08/2012ttending | | Surgeon: Mehran Vaughanistant(s): Kathy Miramontes, | | PAPreoperative Diagnosis(es):Open chest.Postoperative Diagnosis(es):Open | | chest.Procedures Performed:Mediastinal washout and sternal | | closure.Anesthesia:General.Complications:None.Findings:His hemodynamics were quite | | stable following a trial of chest closure.Specimens:We sent several samples of | | mediastinal fluid and some clot for culture. Onexploration, there did not appear to be | | obvious evidence of infection.Indications:This is a 67-year-old man who underwent | | coronary artery bypass grafting onNovember 29, 2012. His course was complicated by a | | tamponade, for which, wereopened his sternum at the bedside on December 04, 2012. He has | | remainedintubated with an open chest since then. We have diuresed him andclinically he | | is looking better. His hemodynamics are supported onrelatively low dose inotrope and | | today, we felt he would be appropriate forsternal washout and possible | | closure.Procedure:The patient was taken to the operating room and placed in the | | supineposition. All the appropriate pressure points were padded. We did goahead and | | placed a Randle per Dr. Zambrano from anesthesiology in the left IJ.The prior Silastic | | dressing was removed, and he was prepped and draped in asterile fashion. We removed | | some small amount of overlying clot in thewound and then placed a sternal retractor. We | | sent several cultures of thefluid and some clot. Although, this did not appear overtly | | infected. Mostof the clot had been removed at his previous chest reopening, and there | | wasreally minimal extra clot around his heart. There was basically just somefibrinous | | exudate that had been developed, which we removed. We wereeasily able to see the graft | | to the PDA and to the OM. I could tell thecourse of the [place] but really I did not feel | | that it was necessary to fullyexplore this. We then copiously irrigated the mediastinum | | with antibioticirrigation. The left chest was suctioned out, the mediastinum | | wassuctioned out, although there was a small bit of ooze from raw surfaces, hewas | | essentially hemostatic. We removed the two previous Shabnam drains and placed two new | | Blakedrains, one traversing the mediastinum into the left chest and another intothe | | mediastinum. We then made note of his hemodynamics andthe Randle parameters. The sternum | | was closed with three wires and we observed hisHemodynamics over the next several | | minutes. They remained quite stable through all of this with CVPs in thelow 10 to 12. | | His cardiac index remained between 2.2 and 2.7. His PApressures and mean arterial | | pressures were essentially unchanged with MAPsin the 80s and PA pressures of 30s over | | 10s. We then placed the remainderof the sternal wires and brought the sternum together. | | The muscular layerwas closed with a running Vicryl, although this was somewhat tenuous | | especiallyinferiorly given some of the decussation of his tissue down at thislocation. | | The deep dermis was closed with a running Vicryl and the skinwas reapproximated with | | jose following by sterile dressing. The chesttubes were applied to suction. He | | tolerated the procedure well. There wasno evidence of complication. He was returned to | | the ICU in critical butstable condition.Helen Gee, MDCJW / [id number] / [id number] / | | [id number] / T: 12/08/2012 Electronically signedMattglen Lunsford MD, FACS, | | FACCAssociate Professor, [facility] of SurgeryMer[facility], Adult Cardiac SurgeryCo-Director, | | Multidisciplinary Heart Valve ClinicMaria [facility] [employer] [facility]nys[facility] Medical CenterPhone: [phone] | | [phone] | [email or web address] | |fluid and some clot. Although, this did not appear overtly infected. Most | |of the clot had been removed at his previous chest reopening, and there was | |really minimal extra clot around his heart. There was basically just some | |fibrinous exudate that had been developed, which we removed. We were | |easily able to see the graft to the PDA and to the OM. I could tell the | |course of the DE [place] ROSA but really I did not feel that it was necessary to fully | |explore this. We then copiously irrigated the mediastinum with antibiotic | |irrigation. The left chest was suctioned out, the mediastinum was | |suctioned out, although there was a small bit of ooze from raw surfaces, he | |was essentially hemostatic. We removed the two previous Shabnam drains and placed two new Corbin ke | |drains, one traversing the mediastinum into the left chest and another into | |the mediastinum. We then made note of his hemodynamics and | |the Randle parameters. The sternum was closed with three wires and we observed his | |Hemodynamics over the next several minutes. They remained quite stable through all of this with CVPs in the | |low 10 to 12. His cardiac index remained between 2.2 and 2.7. His PA | |pressures and mean arterial pressures were essentially unchanged with MAPs | |in the 80s and PA pressures of 30s over 10s. We then placed the remainder | |of the sternal wires and brought the sternum together. The muscular layer | |was closed with a running Vicryl, although this was somewhat tenuous especially | |inferiorly given some of the decussation of his tissue down at this | |location. The deep dermis was closed with a running Vicryl and the skin | |was reapproximated with jose following by sterile dressing. The chest | |tubes were applied to suction. He tolerated the procedure well. There was | |no evidence of complication. He was returned to the ICU in critical but | |stable condition. | | | | | |Helen Gee MD | |CJW / HS | |[id number] / [id number] / [id number] / | | | | | | | |Electronically signed | |Narendra Lunsford MD, FACS, FACC | |[facility], Department of Surgery | |Head, Adult Cardiac Surgery | |Co-Director, Multidisciplinary Heart Valve [facility] | |[facility] | | | | | | [email or web address] | + + CAPILLARY BLOOD GLUCOSE (NO CHG), POC (12/22/2012 5:55 PM PDT) + +---------+ + + + | Component | Value | Ref Range | Performed | Pathologist | | | | | At | Signature | + +---------+ + + + | BLOOD | 126 (H) | 60 - 99 mg/dL | [...] + | [facility] | [address] | [place], [place] | | | [facility] | [address] | [address] | | | TESTS | | | | + + + + + CAPILLARY BLOOD GLUCOSE (NO CHG), POC (12/22/2012 9:45 AM PDT) + +---------+ + + + | Component | Value | Ref Range | Performed | Pathologist | | | | | At | Signature | + +---------+ + + + | BLOOD | 139 (H) | 60 - 99 mg/dL | [...] | [facility] | [address] | [place], [place] | | | [facility] | [address] | [address] | | | TESTS | | | | + + + + + CBC (12/22/2012 5:15 AM PDT) + + + + + + | Component | Value | Ref Range | Performed | Pathologist | | | | | At | Signature | + + + + + + | WBC COUNT | 5.3 | 4.4 - 11.0 K/cu | [facility] | | | | | mm | LABORATORY | | | | | | SERVICES, | | | | | | CORE | | + + + + + + | RED CELL | 2.74 (L) | 4.50 - 5.90 | [facility] | | | COUNT | | M/cu mm | LABORATORY | | | | | | SERVICES, | | | | | | CORE | | + + + + + + | HEMOGLOBIN | 8.6 (L) | 13.5 - 17.5 | [facility] | | | | | g/dL | LABORATORY | | | | | | SERVICES, | | | | | | CORE | | + + + + + + | HEMATOCRIT | 25.7 (L) | 41.0 - 53.0 % | [facility] | | | | | | LABORATORY | | | | | | SERVICES, | | | | | | CORE | | + + + + + + | MCV | 93.5 | 80.0 - 96.0 fL | [facility] | | | | | | LABORATORY | | | | | | SERVICES, | | | | | | CORE | | + + + + + + | MCHC | 33.5 | 33.4 - 35.5 | [facility] | | | | | g/dL | LABORATORY | | | | | | SERVICES, | | | | | | CORE | | + + + + + + | RDW | 16.4 (H) | 11.5 - 15.0 % | [facility] | | | | | | LABORATORY | | | | | | SERVICES, | | | | | | CORE | | + + + + + + | PLATELET | 233 | 150 - 400 K/cu | [facility] [...] + | [facility] | [address] | [place] [address] | | | SERVICES, CORE | [address] | | | + + + + + RENAL FUNCTION SET (NA,K,CL,CO2,BUN,CREAT,GLUC,CA,PHOS,ALB ) (12/22/2012 5:15 AM PDT) + + + + + + | Component | Value | Ref Range | Performed | Pathologist | | | | | At | Signature | + + + + + + | GLUCOSE, | 106 (H) | 60 - 99 mg/dL | [facility] | | | PLASMA | | | LABORATORY | | | (LAB) | | | SERVICES, | | | | | | CORE | | + + + + + + | BUN, PLASMA | 52 (H) | 6 - 20 mg/dL | [facility] | | | (LAB) | | | LABORATORY | | | | | | SERVICES, | | | | | | CORE | | + + + + + + | CREATININE | 3.29 (H) | 0.70 - 1.30 | [facility] | | | PLASMA | | mg/dL | LABORATORY | | | (LAB) | | | SERVICES, | | | | | | CORE | | + + + + + + | EGFR | 23 | mL/min | [facility] | | | - | | | LABORATORY | | | SRI LANKAN | | | SERVICES, | | | | | | CORE | | + + + + + + | EGFR NON | 19 | mL/min | [facility] | | | -EFRAIN | | | LABORATORY | | | RICAN | | | SERVICES, | | | | | | CORE | | + + + + + + | SODIUM, | 146 (H) | 136 - 145 | [facility] | [...] + + + + | CHLORIDE, | 114 (H) | 97 - 108 mmol/L | [facility] [...] + + + + | ALBUMIN, | 2.3 (L) | 3.5 - 4.7 g/dL | [facility] | | | PLASMA | | | LABORATORY | | | (LAB) | | | SERVICES, | | | | | | CORE | | + + + + + + | PHOSPHORUS, | 4.4 | 2.4 - 4.7 mg/dL | [facility] | | | PLASMA [...] | + + + + + | [facility] | [address] | [place] [address] | | | SERVICES, CORE | [address] | | | + + + + + INR (12/22/2012 5:15 AM PDT) + + + + + + | Component | Value | Ref Range | Performed | Pathologist | | | | | At | Signature | + + + + + + | INR | 1.69 (H) | 0.90 - 1.20 INR | [...] | + + + + + | [facility] | [address] | [place] [address] | | | SERVICES, CORE | [address] | | | + + + + + HEPARIN, EITHER STANDARD / LMW, BLOOD (12/22/2012 5:15 AM PDT) + +-------+ + + + | Component | Value | Ref Range | Performed | Pathologist | | | | | At | Signature | + +-------+ + + + | HEPARIN, | <0.10 | U/mL | [facility] | | | STD LMW | | | LABORATORY | | | | | | SERVICES, | | | | | | CORE | | + +-------+ + + + + + | Specimen | + + | Blood - Blood | + + + + + | Narrative | Performed At | + + + | Heparin, Either STD/LMW - Therapeutic Ranges: Heparin, | [facility] | | Unfractionated: 0.35 - 0.70 U/mL Enoxaparin, LMWH: 0.70 | LABORATORY | | - 1.20 U/mL Dalteparin, LMWH: 0.70 - 1.20 U/mL | SERVICES, CORE | | Tinzaparin, LMWH: Therapeutic range not established. | | | Preliminary studies suggest range | | | similar to dalteparin. Clinical | | | correlation required. | | | Heparin levels may be unreliable for: | | | Total bilirubin >28.8 mg/dL | | | Triglycerides >690 mg/dL | | | or Moderate to Gross Hemolysis | | + + + + + + + + | Performing | Address | City/State/Zipcode | Phone Number | | Organization | | | | + + + + + | [facility] | [address] | [place] [address] | | | SERVICES, CORE | [address] | | | + + + + + CAPILLARY BLOOD GLUCOSE (NO CHG), POC (12/21/2012 9:47 PM PDT) + +---------+ + + + | Component | Value | Ref Range | Performed | Pathologist | | | | | At | Signature | + +---------+ + + + | BLOOD | 115 (H) | 60 - 99 mg/dL | [...] + + + + | [facility] | [address] | [place], [place] | | | [facility] | [address] | [address] | | | TESTS | | | | + + + + + CAPILLARY BLOOD GLUCOSE (NO CHG), POC (12/21/2012 5:48 PM PDT) + +---------+ + + + | Component | Value | Ref Range | Performed | Pathologist | | | | | At | Signature | + +---------+ + + + | BLOOD | 114 (H) | 60 - 99 mg/dL | [...] + + + + | [facility] | [address] | [place], [place] | | | [facility] | [address] | [address] | | | TESTS | | | | + + + + + CAPILLARY BLOOD GLUCOSE (NO CHG), POC (12/21/2012 1:55 PM PDT) + +---------+ + + + | Component | Value | Ref Range | Performed | Pathologist | | | | | At | Signature | + +---------+ + + + | BLOOD | 138 (H) | 60 - 99 mg/dL | [...] + | [facility] | [address] | [place], [place] | | | [facility] | [address] | [address] | | | TESTS | | | | + + + + + CAPILLARY BLOOD GLUCOSE (NO CHG), POC (12/21/2012 12:40 PM PDT) + +---------+ + + + | Component | Value | Ref Range | Performed | Pathologist | | | | | At | Signature | + +---------+ + + + | BLOOD | 132 (H) | 60 - 99 mg/dL | [...] + + + + | [facility] | [address] | [place], [place] | | | [facility] | [address] | [address] | | | TESTS | | | | + + + + + RENAL FUNCTION SET (NA,K,CL,CO2,BUN,CREAT,GLUC,CA,PHOS,ALB ) (12/21/2012 6:22 AM PDT) + + + + + + | Component | Value | Ref Range | Performed | Pathologist | | | | | At | Signature | + + + + + + | GLUCOSE, | 99 | 60 - 99 mg/dL | [facility] | | | PLASMA | | | LABORATORY | | | (LAB) | | | SERVICES, | | | | | | CORE | | + + + + + + | BUN, PLASMA | 55 (H) | 6 - 20 mg/dL | [facility] | | | (LAB) | | | LABORATORY | | | | | | SERVICES, | | | | | | CORE | | + + + + + + | CREATININE | 3.52 (H) | 0.70 - 1.30 | [facility] | | | PLASMA | | mg/dL | LABORATORY | | | (LAB) | | | SERVICES, | | | | | | CORE | | + + + + + + | EGFR | 21 | mL/min | [facility] | | | - | | | LABORATORY | | | SRI LANKAN | | | SERVICES, | | | | | | CORE | | + + + + + + | EGFR NON | 18 | mL/min | [facility] | | | -EFRAIN | | | LABORATORY | | | RICAN | | | SERVICES, | | | | | | CORE | | + + + + + + | SODIUM, | 147 (H) | 136 - 145 | [facility] | [...] + + + + | CHLORIDE, | 114 (H) | 97 - 108 mmol/L | [facility] [...] + + + + | CALCIUM, | 9.1 | 8.6 - 10.2 | [facility] | | | PLASMA | | mg/dL | LABORATORY | | | (LAB) | | | SERVICES, | | | | | | CORE | | + + + + + + | ALBUMIN, | 2.1 (L) | 3.5 - 4.7 g/dL | [facility] | | | PLASMA | | | LABORATORY | | | (LAB) | | | SERVICES, | | | | | | CORE | | + + + + + + | PHOSPHORUS, | 4.1 | 2.4 - 4.7 mg/dL | [facility] | | | PLASMA [...] + + + | ANION GAP | 10 | 4 - 11 mmol/L | [facility] | | | | | | LABORATORY | | | | | | SERVICES, | | | | | | CORE | | + + + + + + | ANION | 14 (H) | 4 - 11 mmol/L | [...] | + + + + + | [facility] | [address] | [place] [address] | | | SERVICES, CORE | [address] | | | + + + + + INR (12/21/2012 6:22 AM PDT) + + + + + + | Component | Value | Ref Range | Performed | Pathologist | | | | | At | Signature | + + + + + + | INR | 1.75 (H) | 0.90 - 1.20 INR | [...] | + + + + + | [facility] | [address] | [place] [address] | | | SERVICES, CORE | [address] | | | + + + + + HEPARIN, EITHER STANDARD / LMW, BLOOD (12/21/2012 6:22 AM PDT) + +-------+ + + + | Component | Value | Ref Range | Performed | Pathologist | | | | | At | Signature | + +-------+ + + + | HEPARIN, | 0.18 | U/mL | [facility] | | | STD LMW | | | LABORATORY | | | | | | SERVICES, | | | | | | CORE | | + +-------+ + + + + + | Specimen | + + | Blood - Blood | + + + + + | Narrative | Performed At | + + + | Heparin, Either STD/LMW - Therapeutic Ranges: Heparin, | [facility] | | Unfractionated: 0.35 - 0.70 U/mL Enoxaparin, LMWH: 0.70 | LABORATORY | | - 1.20 U/mL Dalteparin, LMWH: 0.70 - 1.20 U/mL | SERVICES, CORE | | Tinzaparin, LMWH: Therapeutic range not established. | | | Preliminary studies suggest range | | | similar to dalteparin. Clinical | | | correlation required. | | | Heparin levels may be unreliable for: | | | Total bilirubin >28.8 mg/dL | | | Triglycerides >690 mg/dL | | | or Moderate to Gross Hemolysis | | + + + + + + + + | Performing | Address | City/State/Zipcode | Phone Number | | Organization | | | | + + + + + | [facility] | [address] | [place] [address] | | | SERVICES, CORE | [address] | | | + + + + + CAPILLARY BLOOD GLUCOSE (NO CHG), POC (12/21/2012 5:59 AM PDT) + +---------+ + + + | Component | Value | Ref Range | Performed | Pathologist | | | | | At | Signature | + +---------+ + + + | BLOOD | 125 (H) | 60 - 99 mg/dL | [...] + + + + | [facility] | [address] | [place], [place] | | | [facility] | [address] | [address] | | | TESTS | | | | + + + + + CAPILLARY BLOOD GLUCOSE (NO CHG), POC (12/20/2012 11:58 PM PDT) + +---------+ + + + | Component | Value | Ref Range | Performed | Pathologist | | | | | At | Signature | + +---------+ + + + | BLOOD | 116 (H) | 60 - 99 mg/dL | [...] + + + + | [facility] | [address] | [place], [place] | | | [facility] | [address] | [address] | | | TESTS | | | | + + + + + CAPILLARY BLOOD GLUCOSE (NO CHG), POC (12/20/2012 5:58 PM PDT) + +---------+ + + + | Component | Value | Ref Range | Performed | Pathologist | | | | | At | Signature | + +---------+ + + + | BLOOD | 139 (H) | 60 - 99 mg/dL | [facility] | | | GLUCOSE, | | | [facility] | | | POC | | | [facility] | | | | | | [...] + + + | [facility] | [address] | [place], [place] | | | [facility] | [address] | [address] | | | TESTS | | | | + + + + + CBC (12/20/2012 1:24 PM PDT) + + + + + + | Component | Value | Ref Range | Performed | Pathologist | | | | | At | Signature | + + + + + + | WBC COUNT | 7.7 | 4.4 - 11.0 K/cu | [facility] | | | | | mm | LABORATORY | | | | | | SERVICES, | | | | | | CORE | | + + + + + + | RED CELL | 2.64 (L) | 4.50 - 5.90 | [facility] | | | COUNT | | M/cu mm | LABORATORY | | | | | | SERVICES, | | | | | | CORE | | + + + + + + | HEMOGLOBIN | 8.6 (L) | 13.5 - 17.5 | [facility] | | | | | g/dL | LABORATORY | | | | | | SERVICES, | | | | | | CORE | | + + + + + + | HEMATOCRIT | 25.5 (L) | 41.0 - 53.0 % | [facility] | | | | | | LABORATORY | | | | | | SERVICES, | | | | | | CORE | | + + + + + + | MCV | 96.8 (H) | 80.0 - 96.0 fL | [facility] | | | | | | LABORATORY | | | | | | SERVICES, | | | | | | CORE | | + + + + + + | MCHC | 33.5 | 33.4 - 35.5 | [facility] | | | | | g/dL | LABORATORY | | | | | | SERVICES, | | | | | | CORE | | + + + + + + | RDW | 17.4 (H) | 11.5 - 15.0 % | [facility] | | | | | | LABORATORY | | | | | | SERVICES, | | | | | | CORE | | + + + + + + | PLATELET | 216 | 150 - 400 K/cu | [facility] [...] | + + + + + | [facility] | [address] | [place] [address] | | | SERVICES, CORE | [address] | | | + + + + + CAPILLARY BLOOD GLUCOSE (NO CHG), POC (12/20/2012 12:30 PM PDT) + +---------+ + + + | Component | Value | Ref Range | Performed | Pathologist | | | | | At | Signature | + +---------+ + + + | BLOOD | 171 (H) | 60 - 99 mg/dL | [...] + + + + | [facility] | [address] | [place], [place] | | | [facility] | [address] | [address] | | | TESTS | | | | + + + + + CAPILLARY BLOOD GLUCOSE (NO CHG), POC (12/20/2012 6:54 AM PDT) + +---------+ + + + | Component | Value | Ref Range | Performed | Pathologist | | | | | At | Signature | + +---------+ + + + | BLOOD | 178 (H) | 60 - 99 mg/dL | [...] | + + + + + | [facility] | [address] | [place], [place] | | | [facility] | [address] | [address] | | | TESTS | | | | + + + + + HEPARIN, EITHER STANDARD / LMW, BLOOD (12/20/2012 6:03 AM PDT) + +-------+ + + + | Component | Value | Ref Range | Performed | Pathologist | | | | | At | Signature | + +-------+ + + + | HEPARIN, | 0.36 | U/mL | [facility] | | | STD LMW | | | LABORATORY | | | | | | SERVICES, | | | | | | CORE | | + +-------+ + + + + + | Specimen | + + | Blood - Blood | + + + + + | Narrative | Performed At | + + + | Heparin, Either STD/LMW - Therapeutic Ranges: Heparin, | [facility] | | Unfractionated: 0.35 - 0.70 U/mL Enoxaparin, LMWH: 0.70 | LABORATORY | | - 1.20 U/mL Dalteparin, LMWH: 0.70 - 1.20 U/mL | SERVICES, CORE | | Tinzaparin, LMWH: Therapeutic range not established. | | | Preliminary studies suggest range | | | similar to dalteparin. Clinical | | | correlation required. | | | Heparin levels may be unreliable for: | | | Total bilirubin >28.8 mg/dL | | | Triglycerides >690 mg/dL | | | or Moderate to Gross Hemolysis | | + + + + + + + + | Performing | Address | City/State/Zipcode | Phone Number | | Organization | | | | + + + + + | [facility] | [address] | [place] [address] | | | SERVICES, CORE | [address] | | | + + + + + INR (12/20/2012 6:03 AM PDT) + + + + + + | Component | Value | Ref Range | Performed | Pathologist | | | | | At | Signature | + + + + + + | INR | 1.80 (H) | 0.90 - 1.20 INR | [...] + | [facility] | [address] | [place] [address] | | | SERVICES, CORE | [address] | | | + + + + + RENAL FUNCTION SET (NA,K,CL,CO2,BUN,CREAT,GLUC,CA,PHOS,ALB ) (12/20/2012 6:03 AM PDT) + + + + + + | Component | Value | Ref Range | Performed | Pathologist | | | | | At | Signature | + + + + + + | GLUCOSE, | 129 (H) | 60 - 99 mg/dL | [facility] | | | PLASMA | | | LABORATORY | | | (LAB) | | | SERVICES, | | | | | | CORE | | + + + + + + | BUN, PLASMA | 57 (H) | 6 - 20 mg/dL | [facility] | | | (LAB) | | | LABORATORY | | | | | | SERVICES, | | | | | | CORE | | + + + + + + | CREATININE | 3.64 (H) | 0.70 - 1.30 | [facility] | | | PLASMA | | mg/dL | LABORATORY | | | (LAB) | | | SERVICES, | | | | | | CORE | | + + + + + + | EGFR | 20 | mL/min | [facility] | | | - | | | LABORATORY | | | SRI LANKAN | | | SERVICES, | | | | | | CORE | | + + + + + + | EGFR NON | 17 | mL/min | [facility] | | | -EFRAIN | | | LABORATORY | | | RICAN | | | SERVICES, | | | | | | CORE | | + + + + + + | SODIUM, | 148 (H) | 136 - 145 | [facility] | | | PLASMA | | mmol/L | LABORATORY | | | (LAB) | | | SERVICES, | | | | | | CORE | | + + + + + + | POTASSIUM, | 3.9 | 3.4 - 5.0 | [facility] | | | PLASMA | | mmol/L | LABORATORY | | | (LAB) | | | SERVICES, | | | | | | CORE | | + + + + + + | CHLORIDE, | 112 (H) | 97 - 108 mmol/L | [facility] [...] + + + + | CALCIUM, | 8.7 | 8.6 - 10.2 | [facility] | | | PLASMA | | mg/dL | LABORATORY | | | (LAB) | | | SERVICES, | | | | | | CORE | | + + + + + + | ALBUMIN, | 2.2 (L) | 3.5 - 4.7 g/dL | [facility] | | | PLASMA | | | LABORATORY | | | (LAB) | | | SERVICES, | | | | | | CORE | | + + + + + + | PHOSPHORUS, | 3.6 | 2.4 - 4.7 mg/dL | [facility] | | | PLASMA [...] + + + + | ANION | 16 (H) | 4 - 11 mmol/L | [...] + | [facility] | [address] | [place] [address] | | | TOI MARIN | [address] | | | + + + + + CAPILLARY BLOOD GLUCOSE (NO CHG), POC (12/20/2012 12:01 AM PDT) + +---------+ + + + | Component | Value | Ref Range | Performed | Pathologist | | | | | At | Signature | + +---------+ + + + | BLOOD | 153 (H) | 60 - 99 mg/dL | [...] + + + + | [facility] | [address] | [place], [place] | | | KAILYN MAZA OF [facility] | [facility] | [address] | | | TESTS | | | | + + + + + CAPILLARY BLOOD GLUCOSE (NO CHG), POC (12/19/2012 5:05 PM PDT) + +---------+ + + + | Component | Value | Ref Range | Performed | Pathologist | | | | | At | Signature | + +---------+ + + + | BLOOD | 144 (H) | 60 - 99 mg/dL | [...] + | [facility] | [address] | [place], [place] | | | [place], POINT OF CARE | [address] | [address] | | | TESTS | | | | + + + + + HEPARIN, EITHER STANDARD / LMW, BLOOD (12/19/2012 3:01 PM PDT) + +-------+ + + + | Component | Value | Ref Range | Performed | Pathologist | | | | | At | Signature | + +-------+ + + + | HEPARIN, | 0.21 | U/mL | [facility] | | | STD LMW | | | LABORATORY | | | | | | SERVICES, | | | | | | CORE | | + +-------+ + + + + + | Specimen | + + | Blood - Blood | + + + + + | Narrative | Performed At | + + + | Heparin, Either STD/LMW - Therapeutic Ranges: Heparin, | [facility] | | Unfractionated: 0.35 - 0.70 U/mL Enoxaparin, LMWH: 0.70 | LABORATORY | | - 1.20 U/mL Dalteparin, LMWH: 0.70 - 1.20 U/mL | SERVICES, CORE | | Tinzaparin, LMWH: Therapeutic range not established. | | | Preliminary studies suggest range | | | similar to dalteparin. Clinical | | | correlation required. | | | Heparin levels may be unreliable for: | | | Total bilirubin >28.8 mg/dL | | | Triglycerides >690 mg/dL | | | or Moderate to Gross Hemolysis | | + + + + + + + + | Performing | Address | City/State/Zipcode | Phone Number | | Organization | | | | + + + + + | [facility] | [address] | [place] [address] | | | TANIA, TOI | [address] | | | + + + + + CAPILLARY BLOOD GLUCOSE (NO CHG), POC (12/19/2012 12:41 PM PDT) + +---------+ + + + | Component | Value | Ref Range | Performed | Pathologist | | | | | At | Signature | + +---------+ + + + | BLOOD | 159 (H) | 60 - 99 mg/dL | [...] | + + + + + | [facility] | [address] | [place], [place] | | | KAILYN [facility]ZA OF [facility] | [facility] | [address] | | | TESTS | | | | + + + + + CAPILLARY BLOOD GLUCOSE (NO CHG), POC (12/19/2012 7:54 AM PDT) + +---------+ + + + | Component | Value | Ref Range | Performed | Pathologist | | | | | At | Signature | + +---------+ + + + | BLOOD | 122 (H) | 60 - 99 mg/dL | [facility] - | | | GLUCOSE, | | [...] + | [facility] | [address] | [place], [place] | | | [facility] | [address] | [address] | | | TESTS | | | | + + + + + X-RAY PORTABLE CHEST 1 VIEW (12/19/2012 6:46 AM PDT) + + + + + + | Component | Value | Ref Range | Performed | Pathologist | | | | | At | Signature | + + + + + + | X-RAY | STUDY: DC CHEST 1 VIEW | | | | | PORTABLE | 12/19/12 06:46:00 | | | | | CHEST 1 | CLINICAL DATA: Evaluate | | | | | VIEW | retrocardiac opacity. | | | | | | COMPARISON: Yesterday | | | | | | FINDINGS: The support | | | | | | equipment is unchanged. | | | | | | Sternotomy wires are | | | | | | intact andwell aligned. | | | | | | The lung volumes | | | | | | remain low with slightly | | | | | | increasingretrocardiac | | | | | | atelectasis. Small | | | | | | left pleural effusion | | | | | | isconceivable. There | | | | | | is no pneumothorax. | | | | | | There is no pulmonary | | | | | | edema. IMPRESSION: | | | | | | Minimally increasing | | | | | | retrocardiac atelectasis | | | | | | with small left | | | | | | pleuraleffusion. | | | | | | Attending Radiologists: | | | | | | SHAY FABIAN MDAuthor: | | | | | | SHAY FABIAN MD I | | | | | | have personally viewed | | | | | | this procedure/exam, | | | | | | reviewed this report,and | | | | | | made changes to it | | | | | | where appropriate. | | | | | | Final/Electronically | | | | | | signed / SHAY | | | | | | RUI 12/19/2012 10:27 AM | | | | | | | [...] | | | + +---------+ + + CBC (12/19/2012 6:18 AM PDT) + + + + + + | Component | Value | Ref Range | Performed | Pathologist | | | | | At | Signature | + + + + + + | WBC COUNT | 7.9 | 4.4 - 11.0 K/cu | [facility] | | | | | mm | LABORATORY | | | | | | SERVICES, | | | | | | CORE | | + + + + + + | RED CELL | 2.54 (L) | 4.50 - 5.90 | [facility] | | | COUNT | | M/cu mm | LABORATORY | | | | | | SERVICES, | | | | | | CORE | | + + + + + + | HEMOGLOBIN | 8.4 (L) | 13.5 - 17.5 | [facility] | | | | | g/dL | LABORATORY | | | | | | SERVICES, | | | | | | CORE | | + + + + + + | HEMATOCRIT | 24.1 (L) | 41.0 - 53.0 % | [facility] | | | | | | LABORATORY | | | | | | SERVICES, | | | | | | CORE | | + + + + + + | MCV | 95.2 | 80.0 - 96.0 fL | [facility] | | | | | | LABORATORY | | | | | | SERVICES, | | | | | | CORE | | + + + + + + | MCHC | 34.7 | 33.4 - 35.5 | [facility] | | | | | g/dL | LABORATORY | | | | | | SERVICES, | | | | | | CORE | | + + + + + + | RDW | 17.3 (H) | 11.5 - 15.0 % | [facility] | | | | | | LABORATORY | | | | | | SERVICES, | | | | | | CORE | | + + + + + + | PLATELET | 220 | 150 - 400 K/cu | [facility] [...] | + + + + + | [facility] | [address] | [place] [address] | | | SERVICES, CORE | [address] | | | + + + + + CAPILLARY BLOOD GLUCOSE (NO CHG), POC (12/19/2012 5:19 AM PDT) + +---------+ + + + | Component | Value | Ref Range | Performed | Pathologist | | | | | At | Signature | + +---------+ + + + | BLOOD | 210 (H) | 60 - 99 mg/dL | [facility] - | | | GLUCOSE, | | [...] + | [facility] | [address] | [place], [place] | | | [facility] | [address] | [address] | | | TESTS | | | | + + + + + HEPARIN, EITHER STANDARD / LMW, BLOOD (12/19/2012 5:03 AM PDT) + +-------+ + + + | Component | Value | Ref Range | Performed | Pathologist | | | | | At | Signature | + +-------+ + + + | HEPARIN, | <0.10 | U/mL | [facility] | | | STD LMW | | | LABORATORY | | | | | | SERVICES, | | | | | | CORE | | + +-------+ + + + + + | Specimen | + + | Blood - Blood | + + + + + | Narrative | Performed At | + + + | Heparin, Either STD/LMW - Therapeutic Ranges: Heparin, | [facility] | | Unfractionated: 0.35 - 0.70 U/mL Enoxaparin, LMWH: 0.70 | LABORATORY | | - 1.20 U/mL Dalteparin, LMWH: 0.70 - 1.20 U/mL | SERVICES, CORE | | Tinzaparin, LMWH: Therapeutic range not established. | | | Preliminary studies suggest range | | | similar to dalteparin. Clinical | | | correlation required. | | | Heparin levels may be unreliable for: | | | Total bilirubin >6.6mg/dL | | | Triglycerides >360 mg/dL | | | or Moderate to Gross Hemolysis | | + + + + + + + + | Performing | Address | City/State/Zipcode | Phone Number | | Organization | | | | + + + + + | [facility] | [address] | [place] [address] | | | SERVICES, TOI | [address] | | | + + + + + INR (12/19/2012 5:03 AM PDT) + + + + + + | Component | Value | Ref Range | Performed | Pathologist | | | | | At | Signature | + + + + + + | INR | 1.79 (H) | 0.90 - 1.20 INR | [...] | + + + + + | [facility] | [address] | [place] [address] | | | TANIA, TOI | [address] | | | + + + + + MAGNESIUM, PLASMA (12/19/2012 5:03 AM PDT) + +-------+ + + + | Component | Value | Ref Range | Performed | Pathologist | | | | | At | Signature | + +-------+ + + + | MAGNESIUM,P | 2.5 | 1.8 - 2.5 mg/dL | [facility] [...] + | [facility] | [address] | [place] [address] | | | SERVICES, CORE | [address] | | | + + + + + RENAL FUNCTION SET (NA,K,CL,CO2,BUN,CREAT,GLUC,CA,PHOS,ALB ) (12/19/2012 5:03 AM PDT) + + + + + + | Component | Value | Ref Range | Performed | Pathologist | | | | | At | Signature | + + + + + + | GLUCOSE, | 144 (H) | 60 - 99 mg/dL | [facility] | | | PLASMA | | | LABORATORY | | | (LAB) | | | SERVICES, | | | | | | CORE | | + + + + + + | BUN, PLASMA | 59 (H) | 6 - 20 mg/dL | [facility] | | | (LAB) | | | LABORATORY | | | | | | SERVICES, | | | | | | CORE | | + + + + + + | CREATININE | 3.79 (H) | 0.70 - 1.30 | [facility] | | | PLASMA | | mg/dL | LABORATORY | | | (LAB) | | | SERVICES, | | | | | | CORE | | + + + + + + | EGFR | 20 | mL/min | [facility] | | | - | | | LABORATORY | | | SRI LANKAN | | | SERVICES, | | | | | | CORE | | + + + + + + | EGFR NON | 16 | mL/min | [facility] | | | -EFRAIN | | | LABORATORY | | | RICAN | | | SERVICES, | | | | | | CORE | | + + + + + + | SODIUM, | 147 (H) | 136 - 145 | [facility] | | | PLASMA | | mmol/L | LABORATORY | | | (LAB) | | | SERVICES, | | | | | | CORE | | + + + + + + | POTASSIUM, | 4.0 | 3.4 - 5.0 | [facility] | | | PLASMA | | mmol/L | LABORATORY | | | (LAB) | | | SERVICES, | | | | | | CORE | | + + + + + + | CHLORIDE, | 113 (H) | 97 - 108 mmol/L | [facility] [...] + + + + | CALCIUM, | 8.8 | 8.6 - 10.2 | [facility] | | | PLASMA | | mg/dL | LABORATORY | | | (LAB) | | | SERVICES, | | | | | | CORE | | + + + + + + | ALBUMIN, | 2.2 (L) | 3.5 - 4.7 g/dL | [facility] | | | PLASMA | | | LABORATORY | | | (LAB) | | | SERVICES, | | | | | | CORE | | + + + + + + | PHOSPHORUS, | 3.4 | 2.4 - 4.7 mg/dL | [facility] | | | PLASMA [...] + + + | ANION GAP | 11 | 4 - 11 mmol/L | [facility] | | | | | | LABORATORY | | | | | | SERVICES, | | | | | | CORE | | + + + + + + | ANION | 15 (H) | 4 - 11 mmol/L | [...] | + + + + + | [facility] | [address] | [place] [address] | | | SERVICES, CORE | [address] | | | + + + + + HEPATITIS B SURFACE AB QUAL, SERUM (12/19/2012 5:03 AM PDT) + + + + + + | Component | Value | Ref Range | Performed | Pathologist | | | | | At | Signature | + + + + + + | HEP B | Positive (A) | Negative | [facility] | | | SURFACE AB | | | [facility] | | | QUAL, SERUM | | | [place] | | + + + + + + + + | Specimen | + + | Blood - Blood | + + + + + + + | Performing | Address | City/State/Zipcode | Phone Number | | Organization | | | | + + + + + | [facility] | [address] | [place] [address] | | | [place] | | | | + + + + + HEPATITIS C QUANTITATIVE, PLASMA (12/19/2012 5:03 AM PDT) + + + + + + | Component | Value | Ref Range | Performed | Pathologist | | | | | At | Signature | + + + + + + | HEP C PCR, | Undetected | (none) IU/mL | [facility] | | | QUANT | | | DIAGNOSTIC | | | | | | | | | | | | LABORATORIE | | | | | | S | | + + + + + + + + | Specimen | + + | Blood - Blood | + + + + + | Narrative | Performed At | + + + | Reportable Range: 43-69,000,000 IU/mL These results are | [facility] | | most likely indicative of the absence of HCV viral infection and the | DIAGNOSTIC | | absence of HCV viremia. These results do not, however, rule out the | LABORATORIES | | presence of low-level HCV viremia below the assay's lower sensitivity | | | limit of 7 IU/mL for HCV genotype 1, 15 IU/mL for genotype 2, and 10 | | | IU/mL for genotype 3. | | + + + + + + + + | Performing | Address | City/State/Zipcode | Phone Number | | Organization | | | | + + + + + | [facility] | [address] | [place] [address] | | | DIAGNOSTIC | [address] | | | | LABORATORIES | | | | + + + + + CAPILLARY BLOOD GLUCOSE (NO CHG), POC (12/18/2012 10:52 PM PDT) + +---------+ + + + | Component | Value | Ref Range | Performed | Pathologist | | | | | At | Signature | + +---------+ + + + | BLOOD | 121 (H) | 60 - 99 [...] + + + + | [facility] | [address] | [place], [place] | | | [facility] | [address] | [address] | | | TESTS | | | | + + + + + CAPILLARY BLOOD GLUCOSE (NO CHG), POC (12/18/2012 5:17 PM PDT) + +---------+ + + + | Component | Value | Ref Range | Performed | Pathologist | | | | | At | Signature | + +---------+ + + + | BLOOD | 107 (H) | 60 - 99 mg/dL | [...] + | [facility] | [address] | [place], [place] | | | [facility] OF [facility] | [facility] | [address] | | | TESTS | | | | + + + + + CAPILLARY BLOOD GLUCOSE (NO CHG), POC (12/18/2012 12:12 PM PDT) + +---------+ + + + | Component | Value | Ref Range | Performed | Pathologist | | | | | At | Signature | + +---------+ + + + | BLOOD | 132 (H) | 60 - 99 mg/dL | [...] + + + + | [facility] | [address] | [place], [place] | | | [facility] OF CARE | [facility] | [address] | | | TESTS | | | | + + + + + CAPILLARY BLOOD GLUCOSE (NO CHG), POC (12/18/2012 9:27 AM PDT) + +---------+ + + + | Component | Value | Ref Range | Performed | Pathologist | | | | | At | Signature | + +---------+ + + + | BLOOD | 133 (H) | 60 - 99 mg/dL | [facility] - | | | GLUCOSE, | | [...] + | [facility] | [address] | [place], [place] | | | [facility] OF [facility] | [address] | [address] | | | TESTS | | | | + + + + + X-RAY PORTABLE CHEST 1 VIEW (12/18/2012 6:39 AM PDT) + + + + + + | Component | Value | Ref Range | Performed | Pathologist | | | | | At | Signature | + + + + + + | X-RAY | STUDY: DC CHEST 1 VIEW | | | | | PORTABLE | 12/18/12 06:39:00 | | | | | CHEST 1 | CLINICAL DATA: Evaluate | | | | | VIEW | retrocardiac opacity | | | | | | COMPARISON: Yesterday | | | | | | FINDINGS: The support | | | | | | equipment is unchanged. | | | | | | Sternotomy wires are | | | | | | intact andwell aligned. | | | | | | The cardiac silhouette | | | | | | remains enlarged. The | | | | | | lungvolumes are low. | | | | | | Retrocardiac | | | | | | atelectasis has | | | | | | essentially | | | | | | resolved.There is no | | | | | | pneumothorax. | | | | | | IMPRESSION: Essentially | | | | | | resolved retrocardiac | | | | | | atelectasis. Mild | | | | | | hydrostatic pulmonary | | | | | | edema. Attending | | | | | | Radiologists: SHAY | | | | | | TIGRE FABIANuthor: SHAY | | | | | | MD RUI I have | | | | | | personally viewed this | | | | | | procedure/exam, reviewed | | | | | | this report,and made | | | | | | changes to it where | | | | | | appropriate. | | | | | | Final/Electronically | | | | | | signed / SHAY | | | | | | RUI 12/18/2012 8:44 AM | | | | | | | [...] | | | + +---------+ + + CBC (12/18/2012 4:43 AM PDT) + + + + + + | Component | Value | Ref Range | Performed | Pathologist | | | | | At | Signature | + + + + + + | WBC COUNT | 8.3 | 4.4 - 11.0 K/cu | [facility] | | | | | mm | LABORATORY | | | | | | SERVICES, | | | | | | CORE | | + + + + + + | RED CELL | 2.60 (L) | 4.50 - 5.90 | [facility] | | | COUNT | | M/cu mm | LABORATORY | | | | | | SERVICES, | | | | | | CORE | | + + + + + + | HEMOGLOBIN | 8.2 (L) | 13.5 - 17.5 | [facility] | | | | | g/dL | LABORATORY | | | | | | SERVICES, | | | | | | CORE | | + + + + + + | HEMATOCRIT | 24.6 (L) | 41.0 - 53.0 % | [facility] | | | | | | LABORATORY | | | | | | SERVICES, | | | | | | CORE | | + + + + + + | MCV | 94.8 | 80.0 - 96.0 fL | [facility] | | | | | | LABORATORY | | | | | | SERVICES, | | | | | | CORE | | + + + + + + | MCHC | 33.3 (L) | 33.4 - 35.5 | [facility] | | | | | g/dL | LABORATORY | | | | | | SERVICES, | | | | | | CORE | | + + + + + + | RDW | 17.3 (H) | 11.5 - 15.0 % | [facility] | | | | | | LABORATORY | | | | | | SERVICES, | | | | | | CORE | | + + + + + + | PLATELET | 221 | 150 - 400 K/cu | [facility] [...] + | [facility] | [address] | [place] [address] | | | SERVICES, CORE | [address] | | | + + + + + HEPARIN, EITHER STANDARD / LMW, BLOOD (12/18/2012 4:43 AM PDT) + +-------+ + + + | Component | Value | Ref Range | Performed | Pathologist | | | | | At | Signature | + +-------+ + + + | HEPARIN, | <0.10 | U/mL | [facility] | | | STD LMW | | | LABORATORY | | | | | | TANIA, | | | | | | CORE | | + +-------+ + + + + + | Specimen | + + | Blood - Blood | + + + + + | Narrative | Performed At | + + + | Heparin, Either STD/LMW - Therapeutic Ranges: Heparin, | [facility] | | Unfractionated: 0.35 - 0.70 U/mL Enoxaparin, LMWH: 0.70 | LABORATORY | | - 1.20 U/mL Dalteparin, LMWH: 0.70 - 1.20 U/mL | SERVICES, CORE | | Tinzaparin, LMWH: Therapeutic range not established. | | | Preliminary studies suggest range | | | similar to dalteparin. Clinical | | | correlation required. | | | Heparin levels may be unreliable for: | | | Total bilirubin >6.6mg/dL | | | Triglycerides >360 mg/dL | | | or Moderate to Gross Hemolysis | | + + + + + + + + | Performing | Address | City/State/Zipcode | Phone Number | | Organization | | | | + + + + + | [facility] | [address] | [place] [address] | | | SERVICES, CORE | [address] | | | + + + + + INR (12/18/2012 4:43 AM PDT) + + + + + + | Component | Value | Ref Range | Performed | Pathologist | | | | | At | Signature | + + + + + + | INR | 1.75 (H) | 0.90 - 1.20 INR | [...] + | [facility] | [address] | [place] [address] | | | SERVICES, CORE | [address] | | | + + + + + MAGNESIUM, PLASMA (12/18/2012 4:43 AM PDT) + +-------+ + + + | Component | Value | Ref Range | Performed | Pathologist | | | | | At | Signature | + +-------+ + + + | MAGNESIUM,P | 2.3 | 1.8 - 2.5 mg/dL | [facility] [...] | + + + + + | [facility] | [address] | [place] [address] | | | SERVICES, TOI | [address] | | | + + + + + RENAL FUNCTION SET (NA,K,CL,CO2,BUN,CREAT,GLUC,CA,PHOS,ALB ) (12/18/2012 4:43 AM PDT) + + + + + + | Component | Value | Ref Range | Performed | Pathologist | | | | | At | Signature | + + + + + + | GLUCOSE, | 132 (H) | 60 - 99 mg/dL | [facility] | | | PLASMA | | | LABORATORY | | | (LAB) | | | SERVICES, | | | | | | CORE | | + + + + + + | BUN, PLASMA | 57 (H) | 6 - 20 mg/dL | [facility] | | | (LAB) | | | LABORATORY | | | | | | SERVICES, | | | | | | CORE | | + + + + + + | CREATININE | 3.74 (H) | 0.70 - 1.30 | [facility] | | | PLASMA | | mg/dL | LABORATORY | | | (LAB) | | | SERVICES, | | | | | | CORE | | + + + + + + | EGFR | 20 | mL/min | [facility] | | | - | | | LABORATORY | | | SRI LANKAN | | | SERVICES, | | | | | | CORE | | + + + + + + | EGFR NON | 16 | mL/min | [facility] | | | -EFRAIN | | | LABORATORY | | | RICAN | | | SERVICES, | | | | | | CORE | | + + + + + + | SODIUM, | 145 | 136 - 145 | [facility] | | | PLASMA | | mmol/L | LABORATORY | | | (LAB) | | | SERVICES, | | | | | | CORE | | + + + + + + | POTASSIUM, | 3.9 | 3.4 - 5.0 | [facility] | | | PLASMA | | mmol/L | LABORATORY | | | (LAB) | | | SERVICES, | | | | | | CORE | | + + + + + + | CHLORIDE, | 111 (H) | 97 - 108 mmol/L | [facility] [...] + + + + | CALCIUM, | 8.8 | 8.6 - 10.2 | [facility] | | | PLASMA | | mg/dL | LABORATORY | | | (LAB) | | | SERVICES, | | | | | | CORE | | + + + + + + | ALBUMIN, | 2.2 (L) | 3.5 - 4.7 g/dL | [facility] | | | PLASMA | | | LABORATORY | | | (LAB) | | | SERVICES, | | | | | | CORE | | + + + + + + | PHOSPHORUS, | 4.0 | 2.4 - 4.7 mg/dL | [facility] | | | PLASMA [...] + + + | ANION GAP | 11 | 4 - 11 mmol/L | [facility] | | | | | | LABORATORY | | | | | | SERVICES, | | | | | | CORE | | + + + + + + | ANION | 15 (H) | 4 - 11 mmol/L | [...] | + + + + + | [facility] | [address] | [place] [address] | | | SERVICES, CORE | [address] | | | + + + + + CAPILLARY BLOOD GLUCOSE (NO CHG), POC (12/18/2012 2:01 AM PDT) + +---------+ + + + | Component | Value | Ref Range | Performed | Pathologist | | | | | At | Signature | + +---------+ + + + | BLOOD | 140 (H) | 60 - 99 mg/dL | [facility] - | | | GLUCOSE, | | [...] + | [facility] | [address] | [place], [place] | | | KAILYN MAZA OF [facility] | [address] | [address] | | | TESTS | | | | + + + + + CAPILLARY BLOOD GLUCOSE (NO CHG), POC (12/17/2012 9:15 PM PDT) + +---------+ + + + | Component | Value | Ref Range | Performed | Pathologist | | | | | At | Signature | + +---------+ + + + | BLOOD | 141 (H) | 60 - 99 mg/dL | [...] + + + + | [facility] | [address] | [place], [place] | | | [facility] | [address] | [address] | | | TESTS | | | | + + + + + CAPILLARY BLOOD GLUCOSE (NO CHG), POC (12/17/2012 4:45 PM PDT) + +---------+ + + + | Component | Value | Ref Range | Performed | Pathologist | | | | | At | Signature | + +---------+ + + + | BLOOD | 121 (H) | 60 - 99 [...] | [facility] | [address] | [place], [place] | | | K[facility]YN MAZA OF CARE | [address] | [address] | | | TESTS | | | | + + + + + CAPILLARY BLOOD GLUCOSE (NO CHG), POC (12/17/2012 12:40 PM PDT) + +---------+ + + + | Component | Value | Ref Range | Performed | Pathologist | | | | | At | Signature | + +---------+ + + + | BLOOD | 143 (H) | 60 - 99 mg/dL | [facility] - | | | GLUCOSE, | | [...] + | [facility] | [address] | [place], [place] | | | K[facility]YN MAZA OF [facility] | [address] | [address] | | | TESTS | | | | + + + + + X-RAY PORTABLE CHEST 1 VIEW (12/17/2012 7:17 AM PDT) + + + + + + | Component | Value | Ref Range | Performed | Pathologist | | | | | At | Signature | + + + + + + | X-RAY | STUDY: DC CHEST 1 VIEW | | | | | PORTABLE | 12/17/12 07:17:00 | | | | | CHEST 1 | COMPARISON: 12/16/12 | | | | | VIEW | HISTORY: Evaluate | | | | | | retrocardiac opacity | | | | | | FINDINGS: The cardiac | | | | | | and mediastinal contours | | | | | | are stable. Median | | | | | | sternotomywires are | | | | | | intact. The left lower | | | | | | lobe opacification is | | | | | | stable inappearance. | | | | | | No new focal | | | | | | consolidation is | | | | | | observed. Bilateral | | | | | | andbibasilar atelectasis | | | | | | with mild hydrostatic | | | | | | pulmonary edema are | | | | | | againnoted. There is | | | | | | no pneumothorax. Small | | | | | | left pleural effusion | | | | | | isseen. No acute | | | | | | osseous abnormality is | | | | | | demonstrated. | | | | | | IMPRESSION: Persistent | | | | | | mild hydrostatic | | | | | | pulmonary edema with | | | | | | small left | | | | | | pleuraleffusion. | | | | | | Persistent left basilar | | | | | | atelectasis. Attending | | | | | | Radiologists: ILEANA | | | | | | TIGRE OLIVASuthor: | | | | | | BALBINA DUNLAP M.D. I have | | | | | | personally viewed this | | | | | | procedure/exam, reviewed | | | | | | this report,and made | | | | | | changes to it where | | | | | | appropriate. | | | | | | Final/Electronically | | | | | | zen / ILEANA | | | | | | BRENDON 12/17/2012 | | | | | | 18:26PM Pending final | | | | | | approval / BALBINA DUNLAP | | | | | | 12/17/2012 11:27 AM | | | | | | Preliminary / SHIV | | | | | | GERMÁN 12/17/2012 11:24 | | | | | | AM | | | | + + + + + + + + | Specimen | + + | | + + + +---------+ + + | Performing | Address | City/State/Zipcode | Phone Number | | Organization | | | | + +---------+ + + | [facility] | | | [facility] | | | | + +---------+ + + CBC (12/17/2012 5:29 AM PDT) + + + + + + | Component | Value | Ref Range | Performed | Pathologist | | | | | At | Signature | + + + + + + | WBC COUNT | 8.5 | 4.4 - 11.0 K/cu | [facility] | | | | | mm | LABORATORY | | | | | | SERVICES, | | | | | | CORE | | + + + + + + | RED CELL | 2.72 (L) | 4.50 - 5.90 | [facility] | | | COUNT | | M/cu mm | LABORATORY | | | | | | SERVICES, | | | | | | CORE | | + + + + + + | HEMOGLOBIN | 8.6 (L) | 13.5 - 17.5 | [facility] | | | | | g/dL | LABORATORY | | | | | | SERVICES, | | | | | | CORE | | + + + + + + | HEMATOCRIT | 25.4 (L) | 41.0 - 53.0 % | [facility] | | | | | | LABORATORY | | | | | | SERVICES, | | | | | | CORE | | + + + + + + | MCV | 93.4 | 80.0 - 96.0 fL | [facility] | | | | | | LABORATORY | | | | | | SERVICES, | | | | | | CORE | | + + + + + + | MCHC | 34.0 | 33.4 - 35.5 | [facility] | | | | | g/dL | LABORATORY | | | | | | SERVICES, | | | | | | CORE | | + + + + + + | RDW | 17.3 (H) | 11.5 - 15.0 % | [facility] | | | | | | LABORATORY | | | | | | SERVICES, | | | | | | CORE | | + + + + + + | PLATELET | 199 | 150 - 400 K/cu | [facility] | | | COUNT | | mm [...] | + + + + + | [facility] | [address] | [place] [address] | | | SERVICES, CORE | [address] | | | + + + + + INR (12/17/2012 5:29 AM PDT) + + + + + + | Component | Value | Ref Range | Performed | Pathologist | | | | | At | Signature | + + + + + + | INR | 1.86 (H) | 0.90 - 1.20 INR | [...] | + + + + + | [facility] | [address] | [place] [address] | | | SERVICES, TOI | [address] | | | + + + + + MAGNESIUM, PLASMA (12/17/2012 5:29 AM PDT) + +-------+ + + + | Component | Value | Ref Range | Performed | Pathologist | | | | | At | Signature | + +-------+ + + + | MAGNESIUM,P | 2.1 | 1.8 - 2.5 mg/dL | [facility] [...] + | [facility] | [address] | [place] [address] | | | SERVICES, CORE | [address] | | | + + + + + RENAL FUNCTION SET (NA,K,CL,CO2,BUN,CREAT,GLUC,CA,PHOS,ALB ) (12/17/2012 5:29 AM PDT) + + + + + + | Component | Value | Ref Range | Performed | Pathologist | | | | | At | Signature | + + + + + + | GLUCOSE, | 142 (H) | 60 - 99 mg/dL | [facility] | | | PLASMA | | | LABORATORY | | | (LAB) | | | SERVICES, | | | | | | CORE | | + + + + + + | BUN, PLASMA | 46 (H) | 6 - 20 mg/dL | [facility] | | | (LAB) | | | LABORATORY | | | | | | SERVICES, | | | | | | CORE | | + + + + + + | CREATININE | 3.08 (H) | 0.70 - 1.30 | [facility] | | | PLASMA | | mg/dL | LABORATORY | | | (LAB) | | | SERVICES, | | | | | | CORE | | + + + + + + | EGFR | 25 | mL/min | [facility] | | | - | | | LABORATORY | | | SRI LANKAN | | | SERVICES, | | | | | | CORE | | + + + + + + | EGFR NON | 20 | mL/min | [facility] | | | -EFRAIN | | | LABORATORY | | | RICAN | | | SERVICES, | | | | | | CORE | | + + + + + + | SODIUM, | 143 | 136 - 145 | [facility] | [...] + + + + | CHLORIDE, | 108 | 97 - 108 mmol/L | [facility] [...] + + + + | CALCIUM, | 8.6 | 8.6 - 10.2 | [facility] | | | PLASMA | | mg/dL | LABORATORY | | | (LAB) | | | SERVICES, | | | | | | CORE | | + + + + + + | ALBUMIN, | 2.2 (L) | 3.5 - 4.7 g/dL | [facility] | | | PLASMA | | | LABORATORY | | | (LAB) | | | SERVICES, | | | | | | CORE | | + + + + + + | PHOSPHORUS, | 3.3 | 2.4 - 4.7 mg/dL | [facility] | | | PLASMA [...] + + + | ANION GAP | 11 | 4 - 11 mmol/L | [facility] | | | | | | LABORATORY | | | | | | SERVICES, | | | | | | CORE | | + + + + + + | ANION | 15 (H) | 4 - 11 mmol/L | [...] | + + + + + | [facility] | [address] | [place] [address] | | | SERVICES, CORE | [address] | | | + + + + + CAPILLARY BLOOD GLUCOSE (NO CHG) POC (12/16/2012 9:34 PM PDT) + +---------+ + + + | Component | Value | Ref Range | Performed | Pathologist | | | | | At | Signature | + +---------+ + + + | BLOOD | 142 (H) | 60 - 99 mg/dL | [...] + + + + | [facility] | [address] | [place], [place] | | | [facility] | [address] | [address] | | | TESTS | | | | + + + + + CAPILLARY BLOOD GLUCOSE (NO CHG), POC (12/16/2012 7:10 PM PDT) + +-------+ + + + | Component | Value | Ref Range | Performed | Pathologist | | | | | At | Signature | + +-------+ + + + | BLOOD | 99 | 60 - 99 mg/dL | [facility] | | | GLUCOSE, | | | [facility] | | | POC | | | [facility] | | | | | | OF CARE | | | | | | TESTS | | + +-------+ + + + + + | Specimen | + + | | + + + + + + + | Performing | Address | City/State/Zipcode | Phone Number | | Organization | | | | + + + + + | [facility] | [address] | [place], [place] | | | [facility] | [address] | [address] | | | TESTS | | | | + + + + + CAPILLARY BLOOD GLUCOSE (NO CHG), POC (12/16/2012 12:08 PM PDT) + +---------+ + + + | Component | Value | Ref Range | Performed | Pathologist | | | | | At | Signature | + +---------+ + + + | BLOOD | 102 (H) | 60 - 99 mg/dL | [facility] | | | [facility], | | | [facility] | | | POC | | | [facility] | | | | | | [...] + + + | [facility] | [address] | [place], [place] | | | [facility] | [address] | [address] | | | TESTS | | | | + + + + + CAPILLARY BLOOD GLUCOSE (NO CHG), POC (12/16/2012 8:17 AM PDT) + +---------+ + + + | Component | Value | Ref Range | Performed | Pathologist | | | | | At | Signature | + +---------+ + + + | BLOOD | 122 (H) | 60 - 99 mg/dL | [...] + + + + | [facility] | [address] | [place], [place] | | | [facility] | [address] | [address] | | | TESTS | | | | + + + + + X-RAY PORTABLE CHEST 1 VIEW (12/16/2012 7:07 AM PDT) + + + + + + | Component | Value | Ref Range | Performed | Pathologist | | | | | At | Signature | + + + + + + | X-RAY | STUDY: DC CHEST 1 VIEW | | | | | PORTABLE | 12/16/12 07:07:00 | | | | | CHEST 1 | COMPARISON: 12/15/12. | | | | | VIEW | HISTORY: Evaluate | | | | | | retrocardiac opacity. | | | | | | FINDINGS: There is | | | | | | further decrease in left | | | | | | lower lobe | | | | | | opacification with | | | | | | mildresidual | | | | | | atelectasis. No new | | | | | | focal consolidation is | | | | | | observed. Thereis | | | | | | scattered perihilar and | | | | | | basilar atelectasis and | | | | | | mild | | | | | | hydrostaticpulmonary | | | | | | edema. The cardiac and | | | | | | mediastinal borders are | | | | | | stable. Noobvious | | | | | | pneumothorax is seen. | | | | | | Small left pleural | | | | | | effusion is seen. | | | | | | IMPRESSION: Mild | | | | | | hydrostatic pulmonary | | | | | | edema and further | | | | | | resolution of | | | | | | leftbasilar atelectasis. | | | | | | Small left pleural | | | | | | effusion Attending | | | | | | Radiologists: ILEANA | | | | | | TIGRE OLIVASuthor: | | | | | | ILEANA OLIVAS MD I | | | | | | have personally viewed | | | | | | this procedure/exam, | | | | | | reviewed this report,and | | | | | | made changes to it | | | | | | where appropriate. | | | | | | Final/Electronically | | | | | | signed / ILEANA | | | | | | BRENDON 12/16/2012 | | | | | | 15:59PM | | | | + + + + + + + + | Specimen | + + | | + + + +---------+ + + | Performing | Address | City/State/Zipcode | Phone Number | | Organization | | | | + +---------+ + + | [facility] | | | [facility] | | | | + +---------+ + + CBC (12/16/2012 5:20 AM PDT) + + + + + + | Component | Value | Ref Range | Performed | Pathologist | | | | | At | Signature | + + + + + + | WBC COUNT | 7.8 | 4.4 - 11.0 K/cu | [facility] | | | | | mm | LABORATORY | | | | | | SERVICES, | | | | | | CORE | | + + + + + + | RED CELL | 2.84 (L) | 4.50 - 5.90 | [facility] | | | COUNT | | M/cu mm | LABORATORY | | | | | | SERVICES, | | | | | | CORE | | + + + + + + | HEMOGLOBIN | 9.1 (L) | 13.5 - 17.5 | [facility] | | | | | g/dL | LABORATORY | | | | | | SERVICES, | | | | | | CORE | | + + + + + + | HEMATOCRIT | 26.8 (L) | 41.0 - 53.0 % | [facility] | | | | | | LABORATORY | | | | | | SERVICES, | | | | | | CORE | | + + + + + + | MCV | 94.6 | 80.0 - 96.0 fL | [facility] | | | | | | LABORATORY | | | | | | SERVICES, | | | | | | CORE | | + + + + + + | MCHC | 33.9 | 33.4 - 35.5 | [facility] | | | | | g/dL | LABORATORY | | | | | | SERVICES, | | | | | | CORE | | + + + + + + | RDW | 17.6 (H) | 11.5 - 15.0 % | [facility] | | | | | | LABORATORY | | | | | | SERVICES, | | | | | | CORE | | + + + + + + | PLATELET | 203 | 150 - 400 K/cu | [facility] [...] + | [facility] | [address] | [place] [address] | | | SERVICES, CORE | [address] | | | + + + + + HEPARIN, EITHER STANDARD / LMW, BLOOD (12/16/2012 5:20 AM PDT) + +-------+ + + + | Component | Value | Ref Range | Performed | Pathologist | | | | | At | Signature | + +-------+ + + + | HEPARIN, | <0.10 | U/mL | [facility] | | | STD LMW | | | LABORATORY | | | | | | SERVICES, | | | | | | CORE | | + +-------+ + + + + + | Specimen | + + | Blood - Blood | + + + + + | Narrative | Performed At | + + + | Heparin, Either STD/LMW - Therapeutic Ranges: Heparin, | [facility] | | Unfractionated: 0.35 - 0.70 U/mL Enoxaparin, LMWH: 0.70 | LABORATORY | | - 1.20 U/mL Dalteparin, LMWH: 0.70 - 1.20 U/mL | SERVICES, CORE | | Tinzaparin, LMWH: Therapeutic range not established. | | | Preliminary studies suggest range | | | similar to dalteparin. Clinical | | | correlation required. | | | Heparin levels may be unreliable for: | | | Total bilirubin >6.6mg/dL | | | Triglycerides >360 mg/dL | | | or Moderate to Gross Hemolysis | | + + + + + + + + | Performing | Address | City/State/Zipcode | Phone Number | | Organization | | | | + + + + + | [facility] | [address] | [place] [address] | | | SERVICES, CORE | [address] | | | + + + + + INR (12/16/2012 5:20 AM PDT) + + + + + + | Component | Value | Ref Range | Performed | Pathologist | | | | | At | Signature | + + + + + + | INR | 1.69 (H) | 0.90 - 1.20 INR | [...] + | [facility] | [address] | [place] [address] | | | SERVICES, CORE | [address] | | | + + + + + MAGNESIUM, PLASMA (12/16/2012 5:20 AM PDT) + +-------+ + + + | Component | Value | Ref Range | Performed | Pathologist | | | | | At | Signature | + +-------+ + + + | MAGNESIUM,P | 2.3 | 1.8 - 2.5 mg/dL | [facility] | | | LASMA | | | [...] + + | [facility] | [address] | [place] [address] | | | SERVICES, CORE | [address] | | | + + + + + RENAL FUNCTION SET (NA,K,CL,CO2,BUN,CREAT,GLUC,CA,PHOS,ALB ) (12/16/2012 5:20 AM PDT) + + + + + + | Component | Value | Ref Range | Performed | Pathologist | | | | | At | Signature | + + + + + + | GLUCOSE, | 129 (H) | 60 - 99 mg/dL | [facility] | | | PLASMA | | | LABORATORY | | | (LAB) | | | SERVICES, | | | | | | CORE | | + + + + + + | BUN, PLASMA | 58 (H) | 6 - 20 mg/dL | [facility] | | | (LAB) | | | LABORATORY | | | | | | SERVICES, | | | | | | CORE | | + + + + + + | CREATININE | 3.56 (H) | 0.70 - 1.30 | [facility] | | | PLASMA | | mg/dL | LABORATORY | | | (LAB) | | | SERVICES, | | | | | | CORE | | + + + + + + | EGFR | 21 | mL/min | [facility] | | | - | | | LABORATORY | | | S[facility] LANKAN | | | SERVICES, | | | | | | CORE | | + + + + + + | EGFR NON | 17 | mL/min | [facility] | | | -EFRAIN | | | LABORATORY | | | RICAN | | | SERVICES, | | | | | | CORE | | + + + + + + | SODIUM, | 147 (H) | 136 - 145 | [facility] | | | PLASMA | | mmol/L | LABORATORY | | | (LAB) | | | SERVICES, | | | | | | CORE | | + + + + + + | POTASSIUM, | 3.7 | 3.4 - 5.0 | [facility] | | | PLASMA | | mmol/L | LABORATORY | | | (LAB) | | | SERVICES, | | | | | | CORE | | + + + + + + | CHLORIDE, | 111 (H) | 97 - 108 mmol/L | [facility] [...] + + + + | CALCIUM, | 8.7 | 8.6 - 10.2 | [facility] | | | PLASMA | | mg/dL | LABORATORY | | | (LAB) | | | SERVICES, | | | | | | CORE | | + + + + + + | ALBUMIN, | 2.1 (L) | 3.5 - 4.7 g/dL | [facility] | | | PLASMA | | | LABORATORY | | | (LAB) | | | SERVICES, | | | | | | CORE | | + + + + + + | PHOSPHORUS, | 3.5 | 2.4 - 4.7 mg/dL | [facility] | | | PLASMA [...] + + + + | ANION | 16 (H) | 4 - 11 mmol/L | [...] + + + | [facility] | [address] | [place] [id number] | | | TOI MARIN | [address] | | | + + + + + CAPILLARY BLOOD GLUCOSE (NO CHG), POC (12/16/2012 1:55 AM PDT) + +---------+ + + + | Component | Value | Ref Range | Performed | Pathologist | | | | | At | Signature | + +---------+ + + + | BLOOD | 152 (H) | 60 - 99 mg/dL | [...] + + + + | [facility] | [address] | [place], [place] | | | [facility] OF [facility] | [facility] | [address] | | | TESTS | | | | + + + + + CAPILLARY BLOOD GLUCOSE (NO CHG), POC (12/15/2012 10:43 PM PDT) + +---------+ + + + | Component | Value | Ref Range | Performed | Pathologist | | | | | At | Signature | + +---------+ + + + | BLOOD | 119 (H) | 60 - 99 mg/dL | [...] + | [facility] | [address] | [place], [place] | | | [facility] | [address] | [address] | | | TESTS | | | | + + + + + ATIII ACTIVITY, PLASMA (12/15/2012 6:50 PM PDT) + + + + + + | Component | Value | Ref Range | Performed | Pathologist | | | | | At | Signature | + + + + + + | ATIII | 0.69 (LL) | 0.86 - 1.18 | [facility] | | | ACTIVITY, | | U/mL | LABORATORY | | | PLASMA | | | SERVICES, | | | | | | CORE | | + + + + + + + + | Specimen | + + | Blood - Blood | + + + + + | Narrative | Performed At | + + + | Published reference ranges for children less than 6 months | [facility] | | can be found in the Hemostasis Section general instructions of the | LABORATORY | | [facility] Lab Manual: | TANIA, CORE | | [email or web address] | | + + + + + + + + | Performing | Address | City/State/Zipcode | Phone Number | | Organization | | | | + + + + + | [facility] | [address] | [place] [address] | | | SERVICES, TOI | [address] | | | + + + + + CAPILLARY BLOOD GLUCOSE (NO CHG), POC (12/15/2012 5:04 PM PDT) + +---------+ + + + | Component | Value | Ref Range | Performed | Pathologist | | | | | At | Signature | + +---------+ + + + | BLOOD | 125 (H) | 60 - 99 mg/dL | [...] + + + + | [facility] | [address] | [place], [place] | | | [facility] OF [facility] | [address] | [address] | | | TESTS | | | | + + + + + HEPARIN, EITHER STANDARD / LMW, BLOOD (12/15/2012 1:22 PM PDT) + +-------+ + + + | Component | Value | Ref Range | Performed | Pathologist | | | | | At | Signature | + +-------+ + + + | HEPARIN, | <0.10 | U/mL | [facility] | | | STD LMW | | | LABORATORY | | | | | | SERVICES, | | | | | | CORE | | + +-------+ + + + + + | Specimen | + + | Blood - Blood | + + + + + | Narrative | Performed At | + + + | Heparin, Either STD/LMW - Therapeutic Ranges: Heparin, | [facility] | | Unfractionated: 0.35 - 0.70 U/mL Enoxaparin, LMWH: 0.70 | LABORATORY | | - 1.20 U/mL Dalteparin, LMWH: 0.70 - 1.20 U/mL | SERVICES, CORE | | Tinzaparin, LMWH: Therapeutic range not established. | | | Preliminary studies suggest range | | | similar to dalteparin. Clinical | | | correlation required. | | | Heparin levels may be unreliable for: | | | Total bilirubin >6.6mg/dL | | | Triglycerides >360 mg/dL | | | or Moderate to Gross Hemolysis | | + + + + + + + + | Performing | Address | City/State/Zipcode | Phone Number | | Organization | | | | + + + + + | [facility] | [address] | [place] [address] | | | SERVICES, CORE | [address] | | | + + + + + CAPILLARY BLOOD GLUCOSE (NO CHG), POC (12/15/2012 11:30 AM PDT) + +---------+ + + + | Component | Value | Ref Range | Performed | Pathologist | | | | | At | Signature | + +---------+ + + + | BLOOD | 160 (H) | 60 - 99 mg/dL | [facility] - | | | GLUCOSE, | | [...] + | [facility] | [address] | [place], [place] | | | KAILYN MAZA OF [facility] | [address] | [address] | | | TESTS | | | | + + + + + HEPARIN, EITHER STANDARD / LMW, BLOOD (12/15/2012 11:24 AM PDT) + +-------+ + + + | Component | Value | Ref Range | Performed | Pathologist | | | | | At | Signature | + +-------+ + + + | HEPARIN, | 0.49 | U/mL | [facility] | | | STD LMW | | | LABORATORY | | | | | | SERVICES, | | | | | | CORE | | + +-------+ + + + + + | Specimen | + + | Blood - Blood | + + + + + | Narrative | Performed At | + + + | Heparin, Either STD/LMW - Therapeutic Ranges: Heparin, | [facility] | | Unfractionated: 0.35 - 0.70 U/mL Enoxaparin, LMWH: 0.70 | LABORATORY | | - 1.20 U/mL Dalteparin, LMWH: 0.70 - 1.20 U/mL | SERVICES, CORE | | Tinzaparin, LMWH: Therapeutic range not established. | | | Preliminary studies suggest range | | | similar to dalteparin. Clinical | | | correlation required. | | | Heparin levels may be unreliable for: | | | Total bilirubin >6.6mg/dL | | | Triglycerides >360 mg/dL | | | or Moderate to Gross Hemolysis | | + + + + + + + + | Performing | Address | City/State/Zipcode | Phone Number | | Organization | | | | + + + + + | [facility] | [address] | [place] [address] | | | SERVICES, CORE | [address] | | | + + + + + CAPILLARY BLOOD GLUCOSE (NO CHG), POC (12/15/2012 7:36 AM PDT) + +---------+ + + + | Component | Value | Ref Range | Performed | Pathologist | | | | | At | Signature | + +---------+ + + + | BLOOD | 157 (H) | 60 - 99 mg/dL | [...] + + + + | [facility] | [address] | [place], [place] | | | [facility]ARE | [address] | [address] | | | TESTS | | | | + + + + + X-RAY PORTABLE CHEST 1 VIEW (12/15/2012 5:51 AM PDT) + + + + + + | Component | Value | Ref Range | Performed | Pathologist | | | | | At | Signature | + + + + + + | X-RAY | STUDY: DC CHEST 1 VIEW | | | | | PORTABLE | 12/15/12 05:51:00 | | | | | CHEST 1 | CLINICAL DATA: | | | | | VIEW | Re-evaluated | | | | | | retrocardiac opacity | | | | | | COMPARISON: Yesterday | | | | | | FINDINGS: The support | | | | | | equipment is unchanged. | | | | | | The cardiac silhouette | | | | | | is stableenlarged. | | | | | | There is improved | | | | | | aeration of the left | | | | | | lower lobe | | | | | | withpersistent scattered | | | | | | atelectasis and | | | | | | possible small left | | | | | | pleuraleffusion. There | | | | | | is no pneumothorax. | | | | | | Overall vascular | | | | | | indistinctnesshas | | | | | | increased. The lung | | | | | | volumes are low. | | | | | | IMPRESSION: Improved | | | | | | retrocardiac | | | | | | atelectasis. Slightly | | | | | | worsening hydrostatic | | | | | | pulmonary edema. Left | | | | | | pleural effusion | | | | | | Attending Radiologists: | | | | | | SHAY FABIAN MDAuthor: | | | | | | SHAY FABIAN MD I | | | | | | have personally viewed | | | | | | this procedure/exam, | | | | | | reviewed this report,and | | | | | | made changes to it | | | | | | where appropriate. | | | | | | Final/Electronically | | | | | | signed / SHAY | | | | | | RUI 12/15/2012 10:27 AM | | | | | | | | | | + + + + + + + + | Specimen | + + | | + + + +---------+ + + | Performing | Address | City/State/Zipcode | Phone Number | | Organization | | | | + +---------+ + + | [facility] | | | | | RADIOLOGY | | | | + +---------+ + + INR (12/15/2012 5:26 AM PDT) + + + + + + | Component | Value | Ref Range | Performed | Pathologist | | | | | At | Signature | + + + + + + | INR | 1.48 (H) | 0.90 - 1.20 INR | [...] | + + + + + | [facility] | [address] | [place] [address] | | | SERVICES, TOI | [address] | | | + + + + + HEPARIN, EITHER STANDARD / LMW, BLOOD (12/15/2012 5:26 AM PDT) + +-------+ + + + | Component | Value | Ref Range | Performed | Pathologist | | | | | At | Signature | + +-------+ + + + | HEPARIN, | <0.10 | U/mL | [facility] | | | STD LMW | | | LABORATORY | | | | | | SERVICES, | | | | | | CORE | | + +-------+ + + + + + | Specimen | + + | Blood - Blood | + + + + + | Narrative | Performed At | + + + | Heparin, Either STD/LMW - Therapeutic Ranges: Heparin, | [facility] | | Unfractionated: 0.35 - 0.70 U/mL Enoxaparin, LMWH: 0.70 | LABORATORY | | - 1.20 U/mL Dalteparin, LMWH: 0.70 - 1.20 U/mL | [facility], CORE | | Tinzaparin, LMWH: Therapeutic range not established. | | | Preliminary studies suggest range | | | similar to dalteparin. Clinical | | | correlation required. | | | Heparin levels may be unreliable for: | | | Total bilirubin >6.6mg/dL | | | Triglycerides >360 mg/dL | | | or Moderate to Gross Hemolysis | | + + + + + + + + | Performing | Address | City/State/Zipcode | Phone Number | | Organization | | | | + + + + + | [facility] | [address] | [place] [address] | | | SERVICES, CORE | [address] | | | + + + + + CBC (12/15/2012 5:25 AM PDT) + + + + + + | Component | Value | Ref Range | Performed | Pathologist | | | | | At | Signature | + + + + + + | WBC COUNT | 10.1 | 4.4 - 11.0 K/cu | [facility] | | | | | mm | LABORATORY | | | | | | SERVICES, | | | | | | CORE | | + + + + + + | RED CELL | 2.70 (L) | 4.50 - 5.90 | [facility] | | | COUNT | | M/cu mm | LABORATORY | | | | | | SERVICES, | | | | | | CORE | | + + + + + + | HEMOGLOBIN | 8.7 (L) | 13.5 - 17.5 | [facility] | | | | | g/dL | LABORATORY | | | | | | SERVICES, | | | | | | CORE | | + + + + + + | HEMATOCRIT | 25.8 (L) | 41.0 - 53.0 % | [facility] | | | | | | LABORATORY | | | | | | SERVICES, | | | | | | CORE | | + + + + + + | MCV | 95.5 | 80.0 - 96.0 fL | [facility] | | | | | | LABORATORY | | | | | | SERVICES, | | | | | | CORE | | + + + + + + | MCHC | 33.9 | 33.4 - 35.5 | [facility] | | | | | g/dL | LABORATORY | | | | | | SERVICES, | | | | | | CORE | | + + + + + + | RDW | 18.0 (H) | 11.5 - 15.0 % | [facility] | | | | | | LABORATORY | | | | | | SERVICES, | | | | | | CORE | | + + + + + + | PLATELET | 177 | 150 - 400 K/cu | [facility] [...] + | [facility] | [address] | [place] [address] | | | SERVICES, CORE | [address] | | | + + + + + RENAL FUNCTION SET (NA,K,CL,CO2,BUN,CREAT,GLUC,CA,PHOS,ALB ) (12/15/2012 5:25 AM PDT) + + + + + + | Component | Value | Ref Range | Performed | Pathologist | | | | | At | Signature | + + + + + + | GLUCOSE, | 116 (H) | 60 - 99 mg/dL | [facility] | | | PLASMA | | | LABORATORY | | | (LAB) | | | SERVICES, | | | | | | CORE | | + + + + + + | BUN, PLASMA | 47 (H) | 6 - 20 mg/dL | [facility] | | | (LAB) | | | LABORATORY | | | | | | SERVICES, | | | | | | CORE | | + + + + + + | CREATININE | 3.16 (H) | 0.70 - 1.30 | [facility] | | | PLASMA | | mg/dL | LABORATORY | | | (LAB) | | | SERVICES, | | | | | | CORE | | + + + + + + | EGFR | 24 | mL/min | [facility] | | | - | | | LABORATORY | | | SRI LANKAN | | | SERVICES, | | | | | | CORE | | + + + + + + | EGFR NON | 20 | mL/min | [facility] | | | -EFRAIN | | | LABORATORY | | | RICAN | | | SERVICES, | | | | | | CORE | | + + + + + + | SODIUM, | 144 | 136 - 145 | [facility] | | | PLASMA | | mmol/L | LABORATORY | | | (LAB) | | | SERVICES, | | | | | | CORE | | + + + + + + | POTASSIUM, | 3.9 | 3.4 - 5.0 | [facility] | | | PLASMA | | mmol/L | LABORATORY | | | (LAB) | | | SERVICES, | | | | | | CORE | | + + + + + + | CHLORIDE, | 108 | 97 - 108 mmol/L | [facility] | | | PLASMA | | | LABORATORY | | | (LAB) | | | SERVICES, | | | | | | CORE | | + + + + + + | TOTAL CO2, | 27 | 21 - 32 mmol/L | [facility] [...] + + + + | ALBUMIN, | 2.1 (L) | 3.5 - 4.7 g/dL | [facility] | | | PLASMA | | | LABORATORY | | | (LAB) | | | SERVICES, | | | | | | CORE | | + + + + + + | PHOSPHORUS, | 3.2 | 2.4 - 4.7 mg/dL | [facility] | | | PLASMA [...] | + + + + + | [facility] | [address] | [place] [address] | | | SERVICES, CORE | [address] | | | + + + + + MAGNESIUM, PLASMA (12/15/2012 5:25 AM PDT) + +-------+ + + + | Component | Value | Ref Range | Performed | Pathologist | | | | | At | Signature | + +-------+ + + + | MAGNESIUM,P | 2.1 | 1.8 - 2.5 mg/dL | [facility] [...] + + | [facility] | [address] | [place] [address] | | | SERVICES, CORE | [address] | | | + + + + + CAPILLARY BLOOD GLUCOSE (NO CHG), POC (12/15/2012 1:47 AM PDT) + +---------+ + + + | Component | Value | Ref Range | Performed | Pathologist | | | | | At | Signature | + +---------+ + + + | BLOOD | 172 (H) | 60 - 99 mg/dL | [...] + + + + | [facility] | [address] | [place], [place] | | | KAILYN MAZA OF [facility] | [facility] | [address] | | | TESTS | | | | + + + + + CAPILLARY BLOOD GLUCOSE (NO CHG), POC (12/14/2012 10:34 PM PDT) + +---------+ + + + | Component | Value | Ref Range | Performed | Pathologist | | | | | At | Signature | + +---------+ + + + | BLOOD | 187 (H) | 60 - 99 mg/dL | [...] + | [facility] | [address] | [place], [place] | | | [facility] | [address] | [address] | | | TESTS | | | | + + + + + HEPARIN, EITHER STANDARD / LMW, BLOOD (12/14/2012 7:55 PM PDT) + +-------+ + + + | Component | Value | Ref Range | Performed | Pathologist | | | | | At | Signature | + +-------+ + + + | HEPARIN, | <0.10 | U/mL | [facility] | | | STD LMW | | | LABORATORY | | | | | | SERVICES, | | | | | | CORE | | + +-------+ + + + + + | Specimen | + + | Blood - Blood | + + + + + | Narrative | Performed At | + + + | Heparin, Either STD/LMW - Therapeutic Ranges: Heparin, | [facility] | | Unfractionated: 0.35 - 0.70 U/mL Enoxaparin, LMWH: 0.70 | LABORATORY | | - 1.20 U/mL Dalteparin, LMWH: 0.70 - 1.20 U/mL | SERVICES, CORE | | Tinzaparin, LMWH: Therapeutic range not established. | | | Preliminary studies suggest range | | | similar to dalteparin. Clinical | | | correlation required. | | | Heparin levels may be unreliable for: | | | Total bilirubin >6.6mg/dL | | | Triglycerides >360 mg/dL | | | or Moderate to Gross Hemolysis | | + + + + + + + + | Performing | Address | City/State/Zipcode | Phone Number | | Organization | | | | + + + + + | [facility] | [address] | [place] [address] | | | TOI MARIN | [address] | | | + + + + + CAPILLARY BLOOD GLUCOSE (NO CHG), POC (12/14/2012 4:49 PM PDT) + +---------+ + + + | Component | Value | Ref Range | Performed | Pathologist | | | | | At | Signature | + +---------+ + + + | BLOOD | 146 (H) | 60 - 99 [...] + + + + | [facility] | [address] | [place], [place] | | | [facility] OF [facility] | [address] | [address] | | | TESTS | | | | + + + + + HEPATITIS B SURFACE AG, SERUM (12/14/2012 2:41 PM PDT) + + + + + + | Component | Value | Ref Range | Performed | Pathologist | | | | | At | Signature | + + + + + + | HEPATITIS B | Negative | Negative | [facility] | | | SURFACE | | | [facility] - | | | AG, SERUM | | | [facility] | | + + + + + + + + | Specimen | + + | Blood - Blood | + + + + + + + | Performing | Address | City/State/Zipcode | Phone Number | | Organization | | | | + + + + + | [facility] | [address] | [place] [address] | | | [place] | | | | + + + + + CAPILLARY BLOOD GLUCOSE (NO CHG), POC (12/14/2012 2:21 PM PDT) + +---------+ + + + | Component | Value | Ref Range | Performed | Pathologist | | | | | At | Signature | + +---------+ + + + | BLOOD | 142 (H) | 60 - 99 mg/dL | [...] + + + | [facility] | [address] | [place], [place] | | | [facility] | [address] | [address] | | | TESTS | | | | + + + + + CO-OXIMETER PANEL, BLOOD (12/14/2012 12:37 PM PDT) + + + + + + | Component | Value | Ref Range | Performed | Pathologist | | | | | At | Signature | + + + + + + | TOTAL | 8.9 (L) | 13.5 - 17.5 | [facility] | | | HEMOGLOBIN | | g/dL | LABORATORY | | | | | | SERVICES, | | | | | | CORE | | + + + + + + | OXYHEMOGLOB | 61.8 (L) | 94.0 - 100.0 % | [facility] | | | IN | | | LABORATORY | | | | | | SERVICES, | | | | | | CORE | | + + + + + + | CARBOXYHEMO | 1.9 (H) | <1.5 % | [facility] | | | GLOBIN | | | LABORATORY | | | | | | SERVICES, | | | | | | CORE | | + + + + + + | METHEMOGLOB | 1.0 | % | [facility] | | | IN | | | LABORATORY | | | | | | SERVICES, | | | | | | CORE | | + + + + + + | OXYGEN SAT, | 63.6 (L) | 92.0 - 98.0 % | [facility] | | | BERTA | | | LABORATORY | | | | | | SERVICES, | | | | | | CORE | | + + + + + + | DEOXYHEMOGL | 35.3 | % | [facility] | | | OBIN | | | LABORATORY | | | | | | SERVICES, | | | | | | CORE | | + + + + + + + + | Specimen | + + | Blood - Blood | + + + + + | Narrative | Performed At | + + + | Carboxyhemoglobin ranges Nonsmoker: | [facility] | | <1.5% Smokers (1-2 packs/day): 4-5% Smokers (>2 packs/day): | LABORATORY | | 8-9% Methemoglobin Reference Range: 0-18 years: Not | [facility] | | Available >18 years: <2% of total hemoglobin | | + + + + + + + + | Performing | Address | City/State/Zipcode | Phone Number | | Organization | | | | + + + + + | [facility] | [address] | [place] [address] | | | TOI [place] | [address] | | | + + + + + CAPILLARY BLOOD GLUCOSE (NO CHG), POC (12/14/2012 12:11 PM PDT) + +---------+ + + + | Component | Value | Ref Range | Performed | Pathologist | | | | | At | Signature | + +---------+ + + + | BLOOD | 125 (H) | 60 - 99 mg/dL | [...] + + + + | [facility] | [address] | [place], [place] | | | [facility] | [address] | [address] | | | TESTS | | | | + + + + + CAPILLARY BLOOD GLUCOSE (NO CHG), POC (12/14/2012 10:23 AM PDT) + +---------+ + + + | Component | Value | Ref Range | Performed | Pathologist | | | | | At | Signature | + +---------+ + + + | BLOOD | 126 (H) | 60 - 99 mg/dL | [facility] - | | | GLUCOSE, | | | [facility] | | | POC | | | [place] [facility] | | | | | | [...] + | [facility] | [address] | [place], [place] | | | [facility] | [address] | [address] | | | TESTS | | | | + + + + + CAPILLARY BLOOD GLUCOSE (NO CHG), POC (12/14/2012 8:05 AM PDT) + +---------+ + + + | [...] + + + + | [facility] | [address] | [place], [place] | | | [facility] | [address] | [address] | | | TESTS | | | | + + + + + CAPILLARY BLOOD GLUCOSE (NO CHG), POC (12/14/2012 6:56 AM PDT) + +---------+ + + + | Component | Value | Ref Range | Performed | Pathologist | | | | | At | Signature | + +---------+ + + + | BLOOD | 128 (H) | 60 - 99 mg/dL | [...] + + | [facility] | [address] | [place], [place] | | | [facility] | [facility] | [address] | | | TESTS | | | | + + + + + X-RAY PORTABLE CHEST 1 VIEW (12/14/2012 5:32 AM PDT) + + + + + + | Component | Value | Ref Range | Performed | Pathologist | | | | | At | Signature | + + + + + + | X-RAY | STUDY: DC CHEST 1 VIEW | | | | | PORTABLE | 12/14/12 05:32:00 | | | | | CHEST 1 | CLINICAL DATA: Evaluate | | | | | VIEW | retrocardiac opacity. | | | | | | COMPARISON: Yesterday | | | | | | FINDINGS: Left-sided | | | | | | chest tube has been | | | | | | removed. The remaining | | | | | | supportequipment is | | | | | | unchanged. The cardiac | | | | | | silhouette remains | | | | | | stableenlarged. Small | | | | | | left pleural effusion | | | | | | and dense retrocardiac | | | | | | opacityare essentially | | | | | | unchanged. IMPRESSION: | | | | | | Unchanged dense left | | | | | | lower lobe retrocardiac | | | | | | opacity with | | | | | | associatedstable pleural | | | | | | effusion. This most | | | | | | likely represents left | | | | | | lower | | | | | | lobecollapse/atelectasis | | | | | | . However, pneumonia | | | | | | can have a | | | | | | similarappearance. | | | | | | Attending Radiologists: | | | | | | SHAY FABIAN MDAuthor: | | | | | | SHAY FABIAN MD I | | | | | | have personally viewed | | | | | | this procedure/exam, | | | | | | reviewed this report,and | | | | | | made changes to it | | | | | | where appropriate. | | | | | | Final/Electronically | | | | | | signed / SHAY | | | | | | RUI 12/14/2012 9:22 AM | | | | | | | [...] | | | + +---------+ + + CAPILLARY BLOOD GLUCOSE (NO CHG), POC (12/14/2012 4:37 AM PDT) + +---------+ + + + | Component | Value | Ref Range | Performed | Pathologist | | | | | At | Signature | + +---------+ + + + | BLOOD | 134 (H) | 60 - 99 mg/dL | [facility] - | | | GLUCOSE, | | [...] + | [facility] | [address] | [place], [place] | | | [facility] | [address] | [address] | | | TESTS | | | | + + + + + CAPILLARY BLOOD GLUCOSE (NO CHG), POC (12/14/2012 2:12 AM PDT) + +---------+ + + + | Component | Value | Ref Range | Performed | Pathologist | | | | | At | Signature | + +---------+ + + + | BLOOD | 155 (H) | 60 - 99 mg/dL | [...] + + + + | [facility] | [address] | [place], [place] | | | [facility] | [address] | [address] | | | TESTS | | | | + + + + + CBC (12/14/2012 2:00 AM PDT) + + + + + + | Component | Value | Ref Range | Performed | Pathologist | | | | | At | Signature | + + + + + + | WBC COUNT | 8.4 | 4.4 - 11.0 K/cu | [facility] | | | | | mm | LABORATORY | | | | | | SERVICES, | | | | | | CORE | | + + + + + + | RED CELL | 2.48 (L) | 4.50 - 5.90 | [facility] | | | COUNT | | M/cu mm | LABORATORY | | | | | | SERVICES, | | | | | | CORE | | + + + + + + | HEMOGLOBIN | 8.1 (L) | 13.5 - 17.5 | [facility] | | | | | g/dL | LABORATORY | | | | | | SERVICES, | | | | | | CORE | | + + + + + + | HEMATOCRIT | 23.9 (L) | 41.0 - 53.0 % | [facility] | | | | | | LABORATORY | | | | | | SERVICES, | | | | | | CORE | | + + + + + + | MCV | 96.4 (H) | 80.0 - 96.0 fL | [facility] | | | | | | LABORATORY | | | | | | SERVICES, | | | | | | CORE | | + + + + + + | MCHC | 33.9 | 33.4 - 35.5 | [facility] | | | | | g/dL | LABORATORY | | | | | | SERVICES, | | | | | | CORE | | + + + + + + | RDW | 18.4 (H) | 11.5 - 15.0 % | [facility] | | | | | | LABORATORY | | | | | | SERVICES, | | | | | | CORE | | + + + + + + | PLATELET | 153 | 150 - 400 K/cu | [facility] [...] + | [facility] | [address] | [place] [address] | | | SERVICES, CORE | [address] | | | + + + + + INR (12/14/2012 2:00 AM PDT) + + + + + + | Component | Value | Ref Range | Performed | Pathologist | | | | | At | Signature | + + + + + + | INR | 1.44 (H) | 0.90 - 1.20 INR | [...] | + + + + + | [facility] | [address] | [place] [address] | | | TOI MARIN | [address] | | | + + + + + RENAL FUNCTION SET (NA,K,CL,CO2,BUN,CREAT,GLUC,CA,PHOS,ALB ) (12/14/2012 2:00 AM PDT) + + + + + + | Component | Value | Ref Range | Performed | Pathologist | | | | | At | Signature | + + + + + + | GLUCOSE, | 126 (H) | 60 - 99 mg/dL | [facility] | | | PLASMA | | | LABORATORY | | | (LAB) | | | SERVICES, | | | | | | CORE | | + + + + + + | BUN, PLASMA | 71 (H) | 6 - 20 mg/dL | [facility] | | | (LAB) | | | LABORATORY | | | | | | SERVICES, | | | | | | CORE | | + + + + + + | CREATININE | 4.22 (H) | 0.70 - 1.30 | [facility] | | | PLASMA | | mg/dL | LABORATORY | | | (LAB) | | | SERVICES, | | | | | | CORE | | + + + + + + | SODIUM, | 145 | 136 - 145 | [facility] | | | PLASMA | | mmol/L | LABORATORY | | | (LAB) | | | SERVICES, | | | | | | CORE | | + + + + + + | POTASSIUM, | 3.6 | 3.4 - 5.0 | [facility] | | | PLASMA | | mmol/L | LABORATORY | | | (LAB) | | | SERVICES, | | | | | | CORE | | + + + + + + | CHLORIDE, | 108 | 97 - 108 mmol/L | [facility] | | | PLASMA | | | LABORATORY | | | (LAB) | | | SERVICES, | | | | | | CORE | | + + + + + + | TOTAL CO2, | 25 | 21 - 32 mmol/L | [facility] | | | PLASMA | | | LABORATORY | | | (LAB) | | | SERVICES, | | | | | | CORE | | + + + + + + | CALCIUM, | 8.1 (L) | 8.6 - 10.2 | [facility] | | | PLASMA | | mg/dL | LABORATORY | | | (LAB) | | | SERVICES, | | | | | | CORE | | + + + + + + | ALBUMIN, | 2.1 (L) | 3.5 - 4.7 g/dL | [facility] | | | PLASMA | | | LABORATORY | | | (LAB) | | | SERVICES, | | | | | | CORE | | + + + + + + | PHOSPHORUS, | 4.4 | 2.4 - 4.7 mg/dL | [facility] | | | PLASMA [...] + + + + | ANION | 16 (H) | 4 - 11 mmol/L | [...] + | [facility] | [address] | [place] [address] | | | SERVICES, CORE | [address] | | | + + + + + MAGNESIUM, PLASMA (12/14/2012 2:00 AM PDT) + +-------+ + + + | Component | Value | Ref Range | Performed | Pathologist | | | | | At | Signature | + +-------+ + + + | MAGNESIUM,P | 2.3 | 1.8 - 2.5 mg/dL | [facility] [...] | + + + + + | [facility] | [address] | [place] [address] | | | SERVICES, CORE | [address] | | | + + + + + CAPILLARY BLOOD GLUCOSE (NO CHG), POC (12/14/2012 12:01 AM PDT) + +---------+ + + + | Component | Value | Ref Range | Performed | Pathologist | | | | | At | Signature | + +---------+ + + + | BLOOD | 138 (H) | 60 - 99 mg/dL | [facility] - | | | GLUCOSE, | | [...] + | [facility] | [address] | [place], [place] | | | [facility] | [address] | [address] | | | TESTS | | | | + + + + + CAPILLARY BLOOD GLUCOSE (NO CHG), POC (12/13/2012 10:26 PM PDT) + +---------+ + + + | Component | Value | Ref Range | Performed | Pathologist | | | | | At | Signature | + +---------+ + + + | BLOOD | 155 (H) | 60 - 99 mg/dL | [...] + + + + | [facility] | [address] | [place], [place] | | | [facility] | [address] | [address] | | | TESTS | | | | + + + + + CAPILLARY BLOOD GLUCOSE (NO CHG), POC (12/13/2012 7:47 PM PDT) + +-------+ + + + | Component | Value | Ref Range | Performed | Pathologist | | | | | At | Signature | + +-------+ + + + | BLOOD | 93 | 60 - 99 mg/dL | [facility] | | | GLUCOSE, | | | [facility] | | | POC | | | [facility] | | | | | | [facility] CARE | | | | | | TESTS | | + +-------+ + + + + + | Specimen | + + | | + + + + + + + | Performing | Address | City/State/Zipcode | Phone Number | | Organization | | | | + + + + + | [facility] | [address] | [place], [place] | | | [facility] | [address] | [address] | | | TESTS | | | | + + + + + CAPILLARY BLOOD GLUCOSE (NO CHG), POC (12/13/2012 6:32 PM PDT) + +---------+ + + + | Component | Value | Ref Range | Performed | Pathologist | | | | | At | Signature | + +---------+ + + + | BLOOD | 153 (H) | 60 - 99 mg/dL | [...] + | [facility] | [address] | [place], [place] | | | [facility] | [address] | [address] | | | TESTS | | | | + + + + + CAPILLARY BLOOD GLUCOSE (NO CHG), POC (12/13/2012 5:34 PM PDT) + +---------+ + + + | Component | Value | Ref Range | Performed | Pathologist | | | | | At | Signature | + +---------+ + + + | BLOOD | 188 (H) | 60 - 99 mg/dL | [...] + + + + | [facility] | [address] | [place], [place] | | | [facility] | [address] | [address] | | | TESTS | | | | + + + + + CAPILLARY BLOOD GLUCOSE (NO CHG), POC (12/13/2012 4:37 PM PDT) + +---------+ + + + | Component | Value | Ref Range | Performed | Pathologist | | | | | At | Signature | + +---------+ + + + | BLOOD | 271 (H) | 60 - 99 mg/dL | [...] | [facility] | [address] | [place], [place] | | | [facility] | [facility] | [address] | | | TESTS | | | | + + + + + CBC (12/13/2012 4:25 PM PDT) + + + + + + | Component | Value | Ref Range | Performed | Pathologist | | | | | At | Signature | + + + + + + | WBC COUNT | 8.8 | 4.4 - 11.0 K/cu | [facility] | | | | | mm | LABORATORY | | | | | | SERVICES, | | | | | | CORE | | + + + + + + | RED CELL | 2.41 (L) | 4.50 - 5.90 | [facility] | | | COUNT | | M/cu mm | LABORATORY | | | | | | SERVICES, | | | | | | CORE | | + + + + + + | HEMOGLOBIN | 7.9 (L) | 13.5 - 17.5 | [facility] | | | | | g/dL | LABORATORY | | | | | | SERVICES, | | | | | | CORE | | + + + + + + | HEMATOCRIT | 23.3 (L) | 41.0 - 53.0 % | [facility] | | | | | | LABORATORY | | | | | | SERVICES, | | | | | | CORE | | + + + + + + | MCV | 96.5 (H) | 80.0 - 96.0 fL | [facility] | | | | | | LABORATORY | | | | | | SERVICES, | | | | | | CORE | | + + + + + + | MCHC | 33.8 | 33.4 - 35.5 | [facility] | | | | | g/dL | LABORATORY | | | | | | SERVICES, | | | | | | CORE | | + + + + + + | RDW | 19.1 (H) | 11.5 - 15.0 % | [facility] | | | | | | LABORATORY | | | | | | SERVICES, | | | | | | CORE | | + + + + + + | PLATELET | 134 (L) | 150 - 400 K/cu | [facility] [...] + + | [facility] | [address] | [place] [address] | | | SERVICES, CORE | [address] | | | + + + + + RENAL FUNCTION SET (NA,K,CL,CO2,BUN,CREAT,GLUC,CA,PHOS,ALB ) (12/13/2012 4:25 PM PDT) + + + + + + | Component | Value | Ref Range | Performed | Pathologist | | | | | At | Signature | + + + + + + | GLUCOSE, | 239 (H) | 60 - 99 mg/dL | [facility] | | | PLASMA | | | LABORATORY | | | (LAB) | | | TANIA, | | | | | | CORE | | + + + + + + | BUN, PLASMA | 63 (H) | 6 - 20 mg/dL | [facility] | | | (LAB) | | | LABORATORY | | | | | | SERVICES, | | | | | | CORE | | + + + + + + | CREATININE | 3.95 (H) | 0.70 - 1.30 | [facility] | | | PLASMA | | mg/dL | LABORATORY | | | (LAB) | | | SERVICES, | | | | | | CORE | | + + + + + + | SODIUM, | 141 | 136 - 145 | [facility] | | | PLASMA | | mmol/L | LABORATORY | | | (LAB) | | | SERVICES, | | | | | | CORE | | + + + + + + | POTASSIUM, | 3.6 | 3.4 - 5.0 | [facility] | | | PLASMA | | mmol/L | LABORATORY | | | (LAB) | | | SERVICES, | | | | | | CORE | | + + + + + + | CHLORIDE, | 106 | 97 - 108 mmol/L | [facility] [...] + + + + | CALCIUM, | 8.0 (L) | 8.6 - 10.2 | [facility] | | | PLASMA | | mg/dL | LABORATORY | | | (LAB) | | | SERVICES, | | | | | | CORE | | + + + + + + | ALBUMIN, | 2.0 (L) | 3.5 - 4.7 g/dL | [facility] | | | PLASMA | | | LABORATORY | | | (LAB) | | | SERVICES, | | | | | | CORE | | + + + + + + | PHOSPHORUS, | 4.2 | 2.4 - 4.7 mg/dL | [facility] | | | PLASMA [...] + + + | ANION GAP | 11 | 4 - 11 mmol/L | [facility] | | | | | | LABORATORY | | | | | | SERVICES, | | | | | | CORE | | + + + + + + | ANION | 16 (H) | 4 - 11 mmol/L | [...] | + + + + + | [facility] | [address] | [place] [address] | | | SERVICES, CORE | [address] | | | + + + + + CAPILLARY BLOOD GLUCOSE (NO CHG), POC (12/13/2012 12:39 PM PDT) + +---------+ + + + | Component | Value | Ref Range | Performed | Pathologist | | | | | At | Signature | + +---------+ + + + | BLOOD | 157 (H) | 60 - 99 mg/dL | [facility] - | | | GLUCOSE, | | [...] + + + + + | [facility] | [address] | [place], [place] | | | [facility] | [facility] | [address] | | | TESTS | | | | + + + + + HEPARIN, EITHER STANDARD / LMW, BLOOD (12/13/2012 9:46 AM PDT) + +-------+ + + + | Component | Value | Ref Range | Performed | Pathologist | | | | | At | Signature | + +-------+ + + + | HEPARIN, | 0.31 | U/mL | [facility] | | | STD LMW | | | LABORATORY | | | | | | SERVICES, | | | | | | CORE | | + +-------+ + + + + + | Specimen | + + | Blood - Blood | + + + + + | Narrative | Performed At | + + + | Heparin, Either STD/LMW - Therapeutic Ranges: Heparin, | [facility] | | Unfractionated: 0.35 - 0.70 U/mL Enoxaparin, LMWH: 0.70 | LABORATORY | | - 1.20 U/mL Dalteparin, LMWH: 0.70 - 1.20 U/mL | SERVICES, CORE | | Tinzaparin, LMWH: Therapeutic range not established. | | | Preliminary studies suggest range | | | similar to dalteparin. Clinical | | | correlation required. | | | Heparin levels may be unreliable for: | | | Total bilirubin >6.6mg/dL | | | Triglycerides >360 mg/dL | | | or Moderate to Gross Hemolysis | | + + + + + + + + | Performing | Address | City/State[facility] | Phone Number | | Organization | | | | + + + + + | [facility] | [address] | [place] [address] | | | [place], [facility] | [address] | | | + + + + + INR (12/13/2012 9:46 AM PDT) + + + + + + | Component | Value | Ref Range | Performed | Pathologist | | | | | At | Signature | + + + + + + | INR | 1.47 (H) | 0.90 - 1.20 INR | [...] | + + + + + | [facility] | [address] | [place] [address] | | | TOI MARIN | [address] | | | + + + + + CAPILLARY BLOOD GLUCOSE (NO CHG), POC (12/13/2012 8:18 AM PDT) + +---------+ + + + | Component | Value | Ref Range | Performed | Pathologist | | | | | At | Signature | + +---------+ + + + | BLOOD | 105 (H) | 60 - 99 mg/dL | [...] + | [facility] | [address] | [place], [place] | | | [facility] | [address] | [address] | | | TESTS | | | | + + + + + X-RAY PORTABLE CHEST 1 VIEW (12/13/2012 5:36 AM PDT) + + + + + + | Component | Value | Ref Range | Performed | Pathologist | | | | | At | Signature | + + + + + + | X-RAY | EXAM: AP CHEST. | | | | | PORTABLE | HISTORY:Evaluate | | | | | CHEST 1 | retrocardiac opacity. | | | | | VIEW | COMPARISON: Yesterday | | | | | | FINDINGS: | | | | | | Endotracheal tube has | | | | | | been removed. Feeding | | | | | | tube andleft jugular | | | | | | venous catheter remain | | | | | | in place. Left pleural | | | | | | effusionpersists. | | | | | | Dense left lower lobe | | | | | | retrocardiac | | | | | | opacification has | | | | | | notsubstantially | | | | | | changed. There is no | | | | | | definite pulmonary | | | | | | edema. Thereis no | | | | | | pneumothorax. | | | | | | IMPRESSION: Unchanged | | | | | | dense left lower lobe | | | | | | retrocardiac | | | | | | opacification, | | | | | | likelyatelectasis, | | | | | | although pneumonia | | | | | | should be considered. | | | | | | Left pleural effusion. | | | | | | Attending Radiologists: | | | | | | GURPREET CONLEY, | | | | | | MDAuthor: GURPREET | | | | | | MD JARVIS I have | | | | | | personally viewed this | | | | | | procedure/exam, reviewed | | | | | | this report,and made | | | | | | changes to it where | | | | | | appropriate. | | | | | | Final/Electronically | | | | | | signed / GURPREET | | | | | | JARVIS 12/13/2012 9:18 | | | | | | AM | | | | + + [...] | | | + +---------+ + + CAPILLARY BLOOD GLUCOSE (NO CHG), POC (12/13/2012 5:25 AM PDT) + +---------+ + + + | Component | Value | Ref Range | Performed | Pathologist | | | | | At | Signature | + +---------+ + + + | BLOOD | 144 (H) | 60 - 99 mg/dL | [...] + + + | [facility] | [address] | [place], [place] | | | [facility] | [address] | [address] | | | TESTS | | | | + + + + + CBC (12/13/2012 3:30 AM PDT) + + + + + + | Component | Value | Ref Range | Performed | Pathologist | | | | | At | Signature | + + + + + + | WBC COUNT | 10.0 | 4.4 - 11.0 K/cu | [facility] | | | | | mm | LABORATORY | | | | | | SERVICES, | | | | | | CORE | | + + + + + + | RED CELL | 2.40 (L) | 4.50 - 5.90 | [facility] | | | COUNT | | M/cu mm | LABORATORY | | | | | | SERVICES, | | | | | | CORE | | + + + + + + | HEMOGLOBIN | 7.9 (L) | 13.5 - 17.5 | [facility] | | | | | g/dL | LABORATORY | | | | | | SERVICES, | | | | | | CORE | | + + + + + + | HEMATOCRIT | 23.4 (L) | 41.0 - 53.0 % | [facility] | | | | | | LABORATORY | | | | | | SERVICES, | | | | | | CORE | | + + + + + + | MCV | 97.6 (H) | 80.0 - 96.0 fL | [facility] | | | | | | LABORATORY | | | | | | SERVICES, | | | | | | CORE | | + + + + + + | MCHC | 33.7 | 33.4 - 35.5 | [facility] | | | | | g/dL | LABORATORY | | | | | | SERVICES, | | | | | | CORE | | + + + + + + | RDW | 18.3 (H) | 11.5 - 15.0 % | [facility] | | | | | | LABORATORY | | | | | | SERVICES, | | | | | | CORE | | + + + + + + | PLATELET | 128 (L) | 150 - 400 K/cu | [facility] [...] + + | [facility] | [address] | [place] [address] | | | SERVICES, CORE | [address] | | | + + + + + HEPARIN, EITHER STANDARD / LMW, BLOOD (12/13/2012 3:30 AM PDT) + +-------+ + + + | Component | Value | Ref Range | Performed | Pathologist | | | | | At | Signature | + +-------+ + + + | HEPARIN, | 0.27 | U/mL | [facility] | | | STD LMW | | | LABORATORY | | | | | | SERVICES, | | | | | | CORE | | + +-------+ + + + + + | Specimen | + + | Blood - Blood | + + + + + | Narrative | Performed At | + + + | Heparin, Either STD/LMW - Therapeutic Ranges: Heparin, | [facility] | | Unfractionated: 0.35 - 0.70 U/mL Enoxaparin, LMWH: 0.70 | LABORATORY | | - 1.20 U/mL Dalteparin, LMWH: 0.70 - 1.20 U/mL | SERVICES, CORE | | Tinzaparin, LMWH: Therapeutic range not established. | | | Preliminary studies suggest range | | | similar to dalteparin. Clinical | | | correlation required. | | | Heparin levels may be unreliable for: | | | Total bilirubin >6.6mg/dL | | | Triglycerides >360 mg/dL | | | or Moderate to Gross Hemolysis | | + + + + + + + + | Performing | Address | City/State/Zipcode | Phone Number | | Organization | | | | + + + + + | [facility] | [address] | [place] [address] | | | SERVICES, CORE | [address] | | | + + + + + INR (12/13/2012 3:30 AM PDT) + + + + + + | Component | Value | Ref Range | Performed | Pathologist | | | | | At | Signature | + + + + + + | INR | 1.57 (H) | 0.90 - 1.20 INR | [...] | + + + + + | [facility] | [address] | [place] [address] | | | SERVICES, CORE | [address] | | | + + + + + RENAL FUNCTION SET (NA,K,CL,CO2,BUN,CREAT,GLUC,CA,PHOS,ALB ) (12/13/2012 3:30 AM PDT) + + + + + + | Component | Value | Ref Range | Performed | Pathologist | | | | | At | Signature | + + + + + + | GLUCOSE, | 114 (H) | 60 - 99 mg/dL | [facility] | | | PLASMA | | | LABORATORY | | | (LAB) | | | SERVICES, | | | | | | CORE | | + + + + + + | BUN, PLASMA | 59 (H) | 6 - 20 mg/dL | [facility] | | | (LAB) | | | LABORATORY | | | | | | SERVICES, | | | | | | CORE | | + + + + + + | CREATININE | 3.53 (H) | 0.70 - 1.30 | [facility] | | | PLASMA | | mg/dL | LABORATORY | | | (LAB) | | | SERVICES, | | | | | | CORE | | + + + + + + | SODIUM, | 143 | 136 - 145 | [facility] | [...] + + + + | CHLORIDE, | 106 | 97 - 108 mmol/L | [facility] [...] + + + + | CALCIUM, | 8.1 (L) | 8.6 - 10.2 | [facility] | | | PLASMA | | mg/dL | LABORATORY | | | (LAB) | | | SERVICES, | | | | | | CORE | | + + + + + + | ALBUMIN, | 2.0 (L) | 3.5 - 4.7 g/dL | [facility] | | | PLASMA | | | LABORATORY | | | (LAB) | | | SERVICES, | | | | | | CORE | | + + + + + + | PHOSPHORUS, | 3.4 | 2.4 - 4.7 mg/dL | [facility] | | | PLASMA [...] + + + | ANION GAP | 11 | 4 - 11 mmol/L | [facility] | | | | | | LABORATORY | | | | | | SERVICES, | | | | | | CORE | | + + + + + + | ANION | 16 (H) | 4 - 11 mmol/L | [...] | + + + + + | [facility] | [address] | [place] [address] | | | TOI MARIN | [address] | | | + + + + + MAGNESIUM, PLASMA (12/13/2012 3:30 AM PDT) + +-------+ + + + | Component | Value | Ref Range | Performed | Pathologist | | | | | At | Signature | + +-------+ + + + | MAGNESIUM,P | 2.1 | 1.8 - 2.5 mg/dL | [facility] | | | LASMA | | | LABORATORY | | | | | | SERVICES, | | | | | | TOI | | + +-------+ + + + + + | Specimen | + + | Blood - Blood | + + + + + + + | Performing | Address | City/State/Zipcode | Phone Number | | Organization | | | | + + + + + | [facility] | [address] | [place] [address] | | | SERVICES, CORE | [address] | | | + + + + + CAPILLARY BLOOD GLUCOSE (NO CHG), POC (12/13/2012 3:22 AM PDT) + +---------+ + + + | Component | Value | Ref Range | Performed | Pathologist | | | | | At | Signature | + +---------+ + + + | BLOOD | 144 (H) | 60 - 99 mg/dL | [...] + + + + | [facility] | [address] | [place], [place] | | | [facility] | [address] | [address] | | | TESTS | | | | + + + + + CAPILLARY BLOOD GLUCOSE (NO CHG), POC (12/13/2012 1:16 AM PDT) + +---------+ + + + | Component | Value | Ref Range | Performed | Pathologist | | | | | At | Signature | + +---------+ + + + | BLOOD | 131 (H) | 60 - 99 mg/dL | [facility] | | | GLUCOSE, | | | [facility] | | | POC | | | [facility] [facility] | | | | | | [...] + | [facility] | [address] | [place], [place] | | | [facility] | [address] | [address] | | | TESTS | | | | + + + + + TRANSTHORACIC ECHOCARDIOGRAM, ADULT (12/13/2012 12:00 AM PDT) + + + | Narrative | Performed At | + + + | | | | | | + + + + + | Procedure Note | + + | Diana Miller - 12/13/2012 10:37 AM PDT | + + CAPILLARY BLOOD GLUCOSE (NO CHG), POC (12/12/2012 11:40 PM PDT) + +---------+ + + + | Component | Value | Ref Range | Performed | Pathologist | | | | | At | Signature | + +---------+ + + + | BLOOD | 146 (H) | 60 - 99 [...] + + + + | [facility] | [address] | [place], [place] | | | [facility] | [facility] | [address] | | | TESTS | | | | + + + + + CAPILLARY BLOOD GLUCOSE (NO CHG), POC (12/12/2012 9:59 PM PDT) + +---------+ + + + | Component | Value | Ref Range | Performed | Pathologist | | | | | At | Signature | + +---------+ + + + | BLOOD | 131 (H) | 60 - 99 mg/dL | [...] + + + + | [facility] | [address] | [place], [place] | | | [facility] | [address] | [address] | | | TESTS | | | | + + + + + CAPILLARY BLOOD GLUCOSE (NO CHG), POC (12/12/2012 8:31 PM PDT) + +---------+ + + + | Component | Value | Ref Range | Performed | Pathologist | | | | | At | Signature | + +---------+ + + + | BLOOD | 122 (H) | 60 - 99 mg/dL | [facility] - | | | GLUCOSE, | | [...] + + + | [facility] | [address] | [place], [place] | | | [facility] | [address] | [address] | | | TESTS | | | | + + + + + HEPARIN, EITHER STANDARD / LMW, BLOOD (12/12/2012 8:21 PM PDT) + +-------+ + + + | Component | Value | Ref Range | Performed | Pathologist | | | | | At | Signature | + +-------+ + + + | HEPARIN, | 0.32 | U/mL | [facility] | | | STD LMW | | | LABORATORY | | | | | | SERVICES, | | | | | | CORE | | + +-------+ + + + + + | Specimen | + + | Blood - Blood | + + + + + | Narrative | Performed At | + + + | Heparin, Either STD/LMW - Therapeutic Ranges: Heparin, | [facility] | | Unfractionated: 0.35 - 0.70 U/mL Enoxaparin, LMWH: 0.70 | LABORATORY | | - 1.20 U/mL Dalteparin, LMWH: 0.70 - 1.20 U/mL | SERVICES, CORE | | Tinzaparin, LMWH: Therapeutic range not established. | | | Preliminary studies suggest range | | | similar to dalteparin. Clinical | | | correlation required. | | | Heparin levels may be unreliable for: | | | Total bilirubin >6.6mg/dL | | | Triglycerides >360 mg/dL | | | or Moderate to Gross Hemolysis | | + + + + + + + + | Performing | Address | City/State/Zipcode | Phone Number | | Organization | | | | + + + + + | [facility] | [address] | [place] [address] | | | SERVICES, CORE | [address] | | | + + + + + CAPILLARY BLOOD GLUCOSE (NO CHG), POC (12/12/2012 7:03 PM PDT) + +---------+ + + + | Component | Value | Ref Range | Performed | Pathologist | | | | | At | Signature | + +---------+ + + + | BLOOD | 139 (H) | 60 - 99 mg/dL | [...] + + + + | [facility] | [address] | [place], [place] | | | [facility] | [address] | [address] | | | TESTS | | | | + + + + + X-RAY ABD LTD FEEDING TUBE EVAL (12/12/2012 5:26 PM PDT) + + + + + + | Component | Value | Ref Range | Performed | Pathologist | | | | | At | Signature | + + + + + + | ABD LTD | Indication: Enteric | | | | | FEEDING | tube. Comparison: | | | | | TUBE EVAL | 12/09/2012 AP Abdomen. | | | | | | Findings/Impression: | | | | | | The tip of the enteric | | | | | | tube is in the | | | | | | gastricbody. Attending | | | | | | Radiologists: ULISES | | | | | | TIGRE GRULLONuthor: ULISES | | | | | | MD YADI I have | | | | | | personally viewed this | | | | | | procedure/exam, reviewed | | | | | | this report,and made | | | | | | changes to it where | | | | | | appropriate. | | | | | | Final/Electronically | | | | | | signed / ULISES GRULLON | Pratibha | | | | 12/13/2012 9:45 AM | | | | | | | | | | | | | | | | + + + + + + + + | Specimen | + + | | + + + +---------+ + + | Performing | Address | City/State/Zipcode | Phone Number | | Organization | | | | + +---------+ + + | [facility] DEPARTMENT OF | | | | | RADIOLOGY | | | | + +---------+ + + RENAL FUNCTION SET (NA,K,CL,CO2,BUN,CREAT,GLUC,CA,PHOS,ALB ) (12/12/2012 4:51 PM PDT) + + + + + + | Component | Value | Ref Range | Performed | Pathologist | | | | | At | Signature | + + + + + + | GLUCOSE, | 219 (H) | 60 - 99 mg/dL | [facility] | | | PLASMA | | | LABORATORY | | | (LAB) | | | SERVICES, | | | | | | CORE | | + + + + + + | BUN, PLASMA | 45 (H) | 6 - 20 mg/dL | [facility] | | | (LAB) | | | LABORATORY | | | | | | SERVICES, | | | | | | CORE | | + + + + + + | CREATININE | 2.75 (H) | 0.70 - 1.30 | [facility] | | | PLASMA | | mg/dL | LABORATORY | | | (LAB) | | | SERVICES, | | | | | | CORE | | + + + + + + | SODIUM, | 139 | 136 - 145 | [facility] | [...] + + + | TOTAL CO2, | 27 | 21 - 32 mmol/L | [facility] | | | PLASMA | | | LABORATORY | | | (LAB) | | | SERVICES, | | | | | | CORE | | + + + + + + | CALCIUM, | 7.8 (L) | 8.6 - 10.2 | [facility] | | | PLASMA | | mg/dL | LABORATORY | | | (LAB) | | | SERVICES, | | | | | | CORE | | + + + + + + | ALBUMIN, | 2.0 (L) | 3.5 - 4.7 g/dL | [facility] | | | PLASMA | | | LABORATORY | | | (LAB) | | | SERVICES, | | | | | | CORE | | + + + + + + | PHOSPHORUS, | 3.9 | 2.4 - 4.7 mg/dL | [facility] | | | PLASMA [...] + + + + | ANION | 14 (H) | 4 - 11 mmol/L | [facility] | | | GAP(ALB | | | [...] | + + + + + | [facility] | [address] | [place] [address] | | | SERVICES, CORE | [address] | | | + + + + + INR (12/12/2012 4:50 PM PDT) + + + + + + | Component | Value | Ref Range | Performed | Pathologist | | | | | At | Signature | + + + + + + | INR | 1.92 (H) | 0.90 - 1.20 INR | [...] | + + + + + | [facility] | [address] | [place] [address] | | | SERVICES, TOI | [address] | | | + + + + + CAPILLARY BLOOD GLUCOSE (NO CHG), POC (12/12/2012 4:30 PM PDT) + +---------+ + + + | Component | Value | Ref Range | Performed | Pathologist | | | | | At | Signature | + +---------+ + + + | BLOOD | 121 (H) | 60 - 99 [...] + + + + | [facility] | [address] | [place], [place] | | | [facility] | [facility] | [phone] | | | TESTS | | | | + + + + + CAPILLARY BLOOD GLUCOSE (NO CHG), POC (12/12/2012 1:22 PM PDT) + +-------+ + + + | Component | Value | Ref Range | Performed | Pathologist | | | | | At | Signature | + +-------+ + + + | BLOOD | 98 | 60 - 99 mg/dL | [facility] - | | | GLUCOSE, | | | [facility] | | | POC | | | [facility] | | | | | | OF CARE | | | | | | TESTS | | + +-------+ + + + + + | Specimen | + + | | + + + + + + + | Performing | Address | City/State/Zipcode | Phone Number | | Organization | | | | + + + + + | [facility] | [address] | [place], [place] | | | [facility] | [address] | [address] | | | TESTS | | | | + + + + + HEPARIN, EITHER STANDARD / LMW, BLOOD (12/12/2012 1:19 PM PDT) + +-------+ + + + | Component | Value | Ref Range | Performed | Pathologist | | | | | At | Signature | + +-------+ + + + | HEPARIN, | 0.28 | U/mL | [facility] | | | STD LMW | | | LABORATORY | | | | | | SERVICES, | | | | | | CORE | | + +-------+ + + + + + | Specimen | + + | Blood - Blood | + + + + + | Narrative | Performed At | + + + | Heparin, Either STD/LMW - Therapeutic Ranges: Heparin, | [facility] | | Unfractionated: 0.35 - 0.70 U/mL Enoxaparin, LMWH: 0.70 | LABORATORY | | - 1.20 U/mL Dalteparin, LMWH: 0.70 - 1.20 U/mL | SERVICES, CORE | | Tinzaparin, LMWH: Therapeutic range not established. | | | Preliminary studies suggest range | | | similar to dalteparin. Clinical | | | correlation required. | | | Heparin levels may be unreliable for: | | | Total bilirubin >6.6mg/dL | | | Triglycerides >360 mg/dL | | | or Moderate to Gross Hemolysis | | + + + + + + + + | Performing | Address | City/State/Zipcode | Phone Number | | Organization | | | | + + + + + | [facility] | [address] | [place] [address] | | | SERVICES, CORE | [address] | | | + + + + + CAPILLARY BLOOD GLUCOSE (NO CHG), POC (12/12/2012 11:32 AM PDT) + +---------+ + + + | Component | Value | Ref Range | Performed | Pathologist | | | | | At | Signature | + +---------+ + + + | BLOOD | 103 (H) | 60 - 99 mg/dL | [...] | + + + + + | [facility] | [address] | [place], [place] | | | KAILYN MAZA OF [facility] | [facility] | [address] | | | TESTS | | | | + + + + + CAPILLARY BLOOD GLUCOSE (NO CHG), POC (12/12/2012 9:57 AM PDT) + +---------+ + + + | Component | Value | Ref Range | Performed | Pathologist | | | | | At | Signature | + +---------+ + + + | BLOOD | 133 (H) | 60 - 99 mg/dL | [...] | + + + + + | [facility] | [address] | [place], [place] | | | [facility] | [facility] | [address] | | | TESTS | | | | + + + + + CAPILLARY BLOOD GLUCOSE (NO CHG), POC (12/12/2012 8:28 AM PDT) + +---------+ + + + | Component | Value | Ref Range | Performed | Pathologist | | | | | At | Signature | + +---------+ + + + | BLOOD | 130 (H) | 60 - 99 mg/dL | [facility] - | | | GLUCOSE, | | [...] + | [facility] | [address] | [place], [place] | | | [facility] | [facility] | [address] | | | TESTS | | | | + + + + + MAGNESIUM, PLASMA (12/12/2012 8:19 AM PDT) + +-------+ + + + | Component | Value | Ref Range | Performed | Pathologist | | | | | At | Signature | + +-------+ + + + | MAGNESIUM,P | 1.9 | 1.8 - 2.5 mg/dL | [facility] | | | [facility] | | | LABORATORY | | | [...] | + + + + + | [facility] | [address] [address] [address] | [place] [address] | | | SERVICES, CORE | [address] | | | + + + + + RENAL FUNCTION SET (NA,K,CL,CO2,BUN,CREAT,GLUC,CA,PHOS,ALB ) (12/12/2012 8:19 AM PDT) + + + + + + | Component | Value | Ref Range | Performed | Pathologist | | | | | At | Signature | + + + + + + | GLUCOSE, | 117 (H) | 60 - 99 mg/dL | [facility] | | | PLASMA | | | LABORATORY | | | (LAB) | | | SERVICES, | | | | | | CORE | | + + + + + + | BUN, PLASMA | 45 (H) | 6 - 20 mg/dL | [facility] | | | (LAB) | | | LABORATORY | | | | | | SERVICES, | | | | | | CORE | | + + + + + + | CREATININE | 2.57 (H) | 0.70 - 1.30 | [facility] | | | PLASMA | | mg/dL | LABORATORY | | | (LAB) | | | SERVICES, | | | | | | CORE | | + + + + + + | SODIUM, | 141 | 136 - 145 | [facility] | | | PLASMA | | mmol/L | LABORATORY | | | (LAB) | | | SERVICES, | | | | | | CORE | | + + + + + + | POTASSIUM, | 4.0 | 3.4 - 5.0 | [facility] | | | PLASMA | | mmol/L | LABORATORY | | | (LAB) | | | SERVICES, | | | | | | CORE | | + + + + + + | CHLORIDE, | 106 | 97 - 108 mmol/L | [facility] | | | PLASMA | | | LABORATORY | | | (LAB) | | | SERVICES, | | | | | | CORE | | + + + + + + | TOTAL CO2, | 27 | 21 - 32 mmol/L | [facility] | | | PLASMA | | | LABORATORY | | | (LAB) | | | SERVICES, | | | | | | CORE | | + + + + + + | CALCIUM, | 8.2 (L) | 8.6 - 10.2 | [facility] | | | PLASMA | | mg/dL | LABORATORY | | | (LAB) | | | SERVICES, | | | | | | CORE | | + + + + + + | ALBUMIN, | 2.3 (L) | 3.5 - 4.7 g/dL | [facility] | | | PLASMA | | | LABORATORY | | | (LAB) | | | SERVICES, | | | | | | CORE | | + + + + + + | PHOSPHORUS, | 3.1 | 2.4 - 4.7 mg/dL | [facility] | | | PLASMA [...] + + + + | ANION | 12 (H) | 4 - 11 [...] + | [facility] | [address] | [place] [address] | | | SERVICES, CORE | [address] | | | + + + + + BLOOD GASES, ARTERIAL - LAB (12/12/2012 8:19 AM PDT) + + + + + + | Component | Value | Ref Range | Performed | Pathologist | | | | | At | Signature | + + + + + + | PAT TEMP | 37.7 | Degree C | [facility] | | | ARTERIAL | | | LABORATORY | | | | | | SERVICES, | | | | | | CORE | | + + + + + + | FIO2 | .4 | | [facility] | | | ARTERIAL | | | LABORATORY | | | | | | SERVICES, | | | | | | CORE | | + + + + + + | PH ARTERIAL | 7.48 (H) | 7.37 - 7.44 | [facility] | | | | | | LABORATORY | | | | | | SERVICES, | | | | | | CORE | | + + + + + + | PCO2 | 36 | 32 - 43 mmHg | [facility] | | | ARTERIAL | | | LABORATORY | | | | | | SERVICES, | | | | | | CORE | | + + + + + + | PO2 | 112 (H) | 72 - 104 mmHg | [facility] | | | ARTERIAL | | | LABORATORY | | | | | | SERVICES, | | | | | | CORE | | + + + + + + | HCO3 | 26 | 21 - 28 mmol/L | [facility] | | | ARTERIAL | | | LABORATORY | | | | | | SERVICES, | | | | | | CORE | | + + + + + + | TOTAL CO2 | 27 | 22 - 28 mmol/L | [facility] | | | ARTERIAL | | | LABORATORY | | | | | | SERVICES, | | | | | | CORE | | + + + + + + | BASE EXCESS | 3.2 | | [facility] | | | ARTERIAL | | | LABORATORY | | | | | | SERVICES, | | | | | | CORE | | + + + + + + | O2 SAT, | 98.5 (H) | 92.0 - 98.0 | [facility] | | | ARTERIAL | | | LABORATORY | | | [...] | + + + + + | [facility] | [address] | [place] [address] | | | TOI MARIN | [address] | | | + + + + + CAPILLARY BLOOD GLUCOSE (NO CHG), POC (12/12/2012 6:59 AM PDT) + +---------+ + + + | Component | Value | Ref Range | Performed | Pathologist | | | | | At | Signature | + +---------+ + + + | BLOOD | 113 (H) | 60 - 99 mg/dL | [facility] - | | | GLUCOSE, | | [...] | [facility] | [address] | [place], [place] | | | [facility] | [address] | [address] | | | TESTS | | | | + + + + + CAPILLARY BLOOD GLUCOSE (NO CHG), POC (12/12/2012 6:09 AM PDT) + +---------+ + + + | Component | Value | Ref Range | Performed | Pathologist | | | | | At | Signature | + +---------+ + + + | BLOOD | 117 (H) | 60 - 99 mg/dL | [...] + | [facility] | [address] | [place], [place] | | | HILLARY MAZA | [facility] | [address] | | | TESTS | | | | + + + + + X-RAY PORTABLE CHEST 1 VIEW (12/12/2012 5:53 AM PDT) + + + + + + | Component | Value | Ref Range | Performed | Pathologist | | | | | At | Signature | + + + + + + | X-RAY | EXAM: DC CHEST 1 VIEW | | | | | PORTABLE | 12/12/12 05:53:00 | | | | | CHEST 1 | HISTORY: Intubated. | | | | | VIEW | COMPARISON: Yesterday. | | | | | | FINDINGS: Support | | | | | | equipment is unchanged. | | | | | | The | | | | | | cardiomediastinalsilhoue | | | | | | tte is stable. | | | | | | Retrocardiac | | | | | | opacity/left lower | | | | | | lobeatelectasis | | | | | | unchanged. Small left | | | | | | pleural effusion | | | | | | persists. Thereis no | | | | | | pneumothorax. | | | | | | IMPRESSION: Unchanged | | | | | | dense left lower lobe | | | | | | atelectasis. Given the | | | | | | persistence,pneumonia | | | | | | could be considered. | | | | | | Persistent left pleural | | | | | | effusion. Attending | | | | | | Radiologists: GURPREET | | | | | | TIGRE CONELYuthor: Vinnie | | | | | | Soren Kern I have | | | | | | personally viewed this | | | | | | procedure/exam, reviewed | | | | | | this report,and made | | | | | | changes to it where | | | | | | appropriate. | | | | | | Final/Electronically | | | | | | zen / GURPREET | | | | | | PRIMACK 12/12/2012 9:44 | | | | | | AM | | | | + + + + + + + + | Specimen | + + | | + + + +---------+ + + | Performing | Address | City/State/Zipcode | Phone Number | | Organization | | | | + +---------+ + + | [facility] | | | | + +---------+ + + MANUAL DIFFERENTIAL (12/12/2012 4:00 AM PDT) + + + + + + | Component | Value | Ref Range | Performed | Pathologist | | | | | At | Signature | + + + + + + | NEUTROPHIL% | 80 (H) | 50 - 70 % | [facility] | | | | | | LABORATORY | | | | | | SERVICES, | | | | | | CORE | | + + + + + + | LYMPHOCYTE% | 5 (L) | 18 - 42 % | [facility] | | | | | | LABORATORY | | | | | | SERVICES, | | | | | | CORE | | + + + + + + | MONOCYTE % | 6 | 2 - 8 % | [facility] | | | | | | LABORATORY | | | | | | SERVICES, | | | | | | CORE | | + + + + + + | EOSINOPHIL | 3 | 1 - 3 % | [facility] | | | % | | | LABORATORY | | | | | | SERVICES, | | | | | | CORE | | + + + + + + | BASOPHIL % | 0 | 0 - 2 % | [facility] | | | | | | LABORATORY | | | | | | SERVICES, | | | | | | CORE | | + + + + + + | BANDS % | 6 | 0 - 10 % | [facility] | | | | | | LABORATORY | | | | | | SERVICES, | | | | | | CORE | | + + + + + + | METAMYELO% | 0 | <=0 % | [facility] | | | | | | LABORATORY | | | | | | SERVICES, | | | | | | CORE | | + + + + + + | MYELOCYTES% | 0 | <=0 % | [facility] | | | | | | LABORATORY | | | | | | SERVICES, | | | | | | CORE | | + + + + + + | PROMYELO% | 0 | <=0 % | [facility] | | | | | | LABORATORY | | | | | | SERVICES, | | | | | | CORE | | + + + + + + | ATYPICAL | 0 | <=0 | [facility] | | | CELL% | | | LABORATORY | | | | | | SERVICES, | | | | | | CORE | | + + + + + + | NEUTROPHIL | 10.5 (H) | 1.8 - 7.7 K/cu | [facility] | | | # | | mm | LABORATORY | | | | | | SERVICES, | | | | | | CORE | | + + + + + + | LYMPHOCYTE# | 0.6 (L) | 1.0 - 4.8 K/cu | [facility] | | | | | mm | LABORATORY | | | | | | SERVICES, | | | | | | CORE | | + + + + + + | MONOCYTE # | 0.8 | 0.0 - 0.8 K/cu | [facility] | | | | | mm | LABORATORY | | | | | | SERVICES, | | | | | | CORE | | + + + + + + | EOSINOPHIL | 0.4 | 0.0 - 0.5 K/cu | [facility] | | | # | | mm | LABORATORY | | | | | | SERVICES, | | | | | | CORE | | + + + + + + | BASOPHIL # | 0.0 | 0.0 - 0.1 K/cu | [facility] | | | | | mm | LABORATORY | | | | | | SERVICES, | | | | | | CORE | | + + + + + + | BANDS # | 0.8 | 0.0 - 1.1 K/cu | [facility] | | | | | mm | LABORATORY | | | | | | SERVICES, | | | | | | CORE | | + + + + + + | METAMYELO# | 0.0 | K/cu mm | [facility] | | | | | | LABORATORY | | | | | | SERVICES, | | | | | | CORE | | + + + + + + | MYELOCYTES# | 0.0 | K/cu mm | [facility] | | | | | | LABORATORY | | | | | | SERVICES, | | | | | | CORE | | + + + + + + | PROMYELO # | 0.0 | K/cu mm | [facility] | | | | | | LABORATORY | | | | | | SERVICES, | | | | | | CORE | | + + + + + + | ATYPICAL | 0.0 | K/cu mm | [facility] | | | CELLS # | | | LABORATORY | | | | | | SERVICES, | | | | | | CORE | | + + + + + + | ANISOCYTOSI | 1+ (10-25cells/HPF) | (none) | [facility] | | | S | | | LABORATORY | | | | | | SERVICES, | | | | | | CORE | | + + + + + + | TARGET | 1+ (10-25cells/HPF) | (none) | [facility] | | | CELLS | | | LABORATORY | | | | | | SERVICES, | | | | | | CORE | | + + + + + + + + | Specimen | + + | Blood - Blood | + + + + + | Narrative | Performed At | + + + | Dual RBC population. | [facility] | | | LABORATORY | | | SERVICESTOI | + + + + + + + + | Performing | Address | City/State/Zipcode | Phone Number | | Organization | | | | + + + + + | [facility] | [address] | [place] [address] | | | TANIA, TOI | [address] | | | + + + + + HEPARIN, EITHER STANDARD / LMW, BLOOD (12/12/2012 4:00 AM PDT) + +-------+ + + + | Component | Value | Ref Range | Performed | Pathologist | | | | | At | Signature | + +-------+ + + + | HEPARIN, | 0.33 | U/mL | [facility] | | | STD LMW | | | LABORATORY | | | | | | SERVICES, | | | | | | CORE | | + +-------+ + + + + + | Specimen | + + | Blood - Blood | + + + + + | Narrative | Performed At | + + + | Heparin, Either STD/LMW - Therapeutic Ranges: Heparin, | [facility] | | Unfractionated: 0.35 - 0.70 U/mL Enoxaparin, LMWH: 0.70 | LABORATORY | | - 1.20 U/mL Dalteparin, LMWH: 0.70 - 1.20 U/mL | SERVICES, CORE | | Tinzaparin, LMWH: Therapeutic range not established. | | | Preliminary studies suggest range | | | similar to dalteparin. Clinical | | | correlation required. | | | Heparin levels may be unreliable for: | | | Total bilirubin >6.6mg/dL | | | Triglycerides >360 mg/dL | | | or Moderate to Gross Hemolysis | | + + + + + + + + | Performing | Address | City/State/Zipcode | Phone Number | | Organization | | | | + + + + + | [facility] | [address] | [place] [address] | | | TANIA, TOI | [address] | | | + + + + + CALCIUM, IONIZED, WHOLE BLOOD (12/12/2012 4:00 AM PDT) + + + + + + | Component | Value | Ref Range | Performed | Pathologist | | | | | At | Signature | + + + + + + | BERTA ICA, | 1.13 (L) | 1.14 - 1.32 | [facility] | | | WHOLE BLD | | mmol/L | LABORATORY | | | | | | SERVICES, | | | | | | CORE | | + + + + + + | PH, WHOLE | 7.46 | | [facility] | | | BLOOD | | | LABORATORY | | | | | | SERVICES, | | | | | | CORE | | + + + + + + | ICA, | 1.17 | 1.14 - 1.28 | [facility] | | | CORRECTED | | mmol/L | LABORATORY | | | TO PH 7.4 | | | SERVICES, | | | | | | CORE | | + + + + + + + + | Specimen | + + | Blood - Blood | + + + + + + + | Performing | Address | City/State/Zipcode | Phone Number | | Organization | | | | + + + + + | [facility] | [address] | [place] [address] | | | SERVICES, CORE | [address] | | | + + + + + CBC AND AUTO DIFF (12/12/2012 4:00 AM PDT) + + + + + + | Component | Value | Ref Range | Performed | Pathologist | | | | | At | Signature | + + + + + + | WBC COUNT | 13.1 (H) | 4.4 - 11.0 K/cu | [facility] | | | | | mm | LABORATORY | | | | | | SERVICES, | | | | | | CORE | | + + + + + + | RED CELL | 2.65 (L) | 4.50 - 5.90 | [facility] | | | COUNT | | M/cu mm | LABORATORY | | | | | | SERVICES, | | | | | | CORE | | + + + + + + | HEMOGLOBIN | 8.6 (L) | 13.5 - 17.5 | [facility] | | | | | g/dL | LABORATORY | | | | | | SERVICES, | | | | | | CORE | | + + + + + + | HEMATOCRIT | 25.2 (L) | 41.0 - 53.0 % | [facility] | | | | | | LABORATORY | | | | | | SERVICES, | | | | | | CORE | | + + + + + + | MCV | 95.4 | 80.0 - 96.0 fL | [facility] | | | | | | LABORATORY | | | | | | SERVICES, | | | | | | CORE | | + + + + + + | MCHC | 34.2 | 33.4 - 35.5 | [facility] | | | | | g/dL | LABORATORY | | | | | | SERVICES, | | | | | | CORE | | + + + + + + | RDW | 17.8 (H) | 11.5 - 15.0 % | [facility] | | | | | | LABORATORY | | | | | | SERVICES, | | | | | | CORE | | + + + + + + | PLATELET | 132 (L)Comment: This is | 150 - 400 K/cu | [facility] | | | COUNT | a corrected result. | mm | LABORATORY | | | | Previous result was 140 | | SERVICES, | | | | on 12/12/2012t 0437. | | CORE | | + + + + + + + + | Specimen | + + | Blood - Blood | + + + + + | Narrative | Performed At | + + + | Final platelet report Macro platelets present. | [facility] | | | LABORATORY | | | SERVICES, CORE | + + + + + + + + | Performing | Address | City/State/Zipcode | Phone Number | | Organization | | | | + + + + + | [facility] | [address] | [place] [address] | | | SERVICES, CORE | [address] | | | + + + + + BLOOD GASES, ARTERIAL - LAB (12/12/2012 4:00 AM PDT) + + + + + + | Component | Value | Ref Range | Performed | Pathologist | | | | | At | Signature | + + + + + + | PAT TEMP | 36.7 | Degree C | [facility] | | | ARTERIAL | | | LABORATORY | | | | | | SERVICES, | | | | | | CORE | | + + + + + + | FIO2 | .40 | | [facility] | | | ARTERIAL | | | LABORATORY | | | | | | SERVICES, | | | | | | CORE | | + + + + + + | PH ARTERIAL | 7.46 (H) | 7.37 - 7.44 | [facility] | | | | | | LABORATORY | | | | | | SERVICES, | | | | | | CORE | | + + + + + + | PCO2 | 38 | 32 - 43 mmHg | [facility] | | | ARTERIAL | | | LABORATORY | | | | | | SERVICES, | | | | | | CORE | | + + + + + + | PO2 | 113 (H) | 72 - 104 mmHg | [facility] | | | ARTERIAL | | | LABORATORY | | | | | | SERVICES, | | | | | | CORE | | + + + + + + | HCO3 | 27 | 21 - 28 mmol/L | [facility] | | | ARTERIAL | | | LABORATORY | | | | | | SERVICES, | | | | | | CORE | | + + + + + + | TOTAL CO2 | 28 | 22 - 28 mmol/L | [facility] | | | ARTERIAL | | | LABORATORY | | | | | | SERVICES, | | | | | | CORE | | + + + + + + | BASE EXCESS | 3.0 | | [facility] | | | ARTERIAL | | | LABORATORY | | | | | | SERVICES, | | | | | | CORE | | + + + + + + | O2 SAT, | 98.4 (H) | 92.0 - 98.0 | [facility] | | | ARTERIAL | | | LABORATORY | | | [...] | + + + + + | [facility] | [address] | [place] [address] | | | SERVICES, CORE | [address] | | | + + + + + LIVER SET (AST,ALT,BILI TOTAL,BILI DIRECT,ALK PHOS,ALB,PROT TOTAL) (12/12/2012 4:00 AM PDT ) + +---------+ + + + | Component | Value | Ref Range | Performed | Pathologist | | | | | At | Signature | + +---------+ + + + | ALBUMIN, | 2.2 (L) | 3.5 - 4.7 g/dL | [facility] | | | PLASMA | | | LABORATORY | | | (LAB) | | | SERVICES, | | | | | | CORE | | + +---------+ + + + | BILIRUBIN | 2.6 (H) | 0.3 - 1.2 mg/dL | [facility] | | | TOTAL | | | LABORATORY | | | | | | SERVICES, | | | | | | CORE | | + +---------+ + + + | BILIRUBIN | 1.8 (H) | 0.0 - 0.3 mg/dL | [facility] | | | DIRECT | | | LABORATORY | | | | | | SERVICES, | | | | | | CORE | | + +---------+ + + + | ALK PHOS | 229 (H) | 56 - 119 U/L | [facility] | | | | | | LABORATORY | | | | | | SERVICES, | | | | | | CORE | | + +---------+ + + + | AST(SGOT) | 156 (H) | 15 - 41 U/L | [facility] | | | | | | LABORATORY | | | | | | SERVICES, | | | | | | CORE | | + +---------+ + + + | ALT (SGPT) | 771 (H) | 12 - 60 U/L | [facility] | | | | | | LABORATORY | | | | | | SERVICES, | | | | | | CORE | | + +---------+ + + + | TOTAL | 6.5 | 6.1 - 7.9 g/dL | [facility] | | | PROTEIN, | | | LABORATORY | | | PLASMA | | | SERVICES, | | | (LAB) | | | CORE | | + +---------+ + + + | AST CMNT | No Hemo | | [facility] | | | | | | LABORATORY | | | | | | SERVICES, | | | | | | CORE | | + +---------+ + + + | BILI T CMNT | No Hemo | | [facility] | | | | | | LABORATORY | | | | | | SERVICES, | | | | | | CORE | | + +---------+ + + + | JAYDA TRAN | Marialuisa Nicoleo | | [facility] | | | | [...] | + + + + + | [facility] | [address] | [place] [address] | | | TOI MARIN | [address] | | | + + + + + RENAL FUNCTION SET (NA,K,CL,CO2,BUN,CREAT,GLUC,CA,PHOS,ALB ) (12/12/2012 4:00 AM PDT) + + + + + + | Component | Value | Ref Range | Performed | Pathologist | | | | | At | Signature | + + + + + + | GLUCOSE, | 116 (H) | 60 - 99 mg/dL | [facility] | | | PLASMA | | | LABORATORY | | | (LAB) | | | SERVICES, | | | | | | CORE | | + + + + + + | BUN, PLASMA | 49 (H) | 6 - 20 mg/dL | [facility] | | | (LAB) | | | LABORATORY | | | | | | SERVICES, | | | | | | CORE | | + + + + + + | CREATININE | 2.60 (H) | 0.70 - 1.30 | [facility] | | | PLASMA | | mg/dL | LABORATORY | | | (LAB) | | | SERVICES, | | | | | | CORE | | + + + + + + | SODIUM, | 142 | 136 - 145 | [facility] | [...] + + + + | CHLORIDE, | 106 | 97 - 108 mmol/L | [facility] [...] + + + + | CALCIUM, | 8.1 (L) | 8.6 - 10.2 | [facility] | | | PLASMA | | mg/dL | LABORATORY | | | (LAB) | | | SERVICES, | | | | | | CORE | | + + + + + + | ALBUMIN, | 2.2 (L) | 3.5 - 4.7 g/dL | [facility] | | | PLASMA | | | LABORATORY | | | (LAB) | | | SERVICES, | | | | | | CORE | | + + + + + + | PHOSPHORUS, | 3.1 | 2.4 - 4.7 mg/dL | [facility] | | | PLASMA [...] + + + | ANION GAP | 10 | 4 - 11 mmol/L | [facility] | | | | | | LABORATORY | | | | | | SERVICES, | | | | | | CORE | | + + + + + + | ANION | 14 (H) | 4 - 11 mmol/L | [...] + | [facility] | [address] | [place] [address] | | | SERVICES, CORE | [address] | | | + + + + + MAGNESIUM, PLASMA (12/12/2012 4:00 AM PDT) + +-------+ + + + | Component | Value | Ref Range | Performed | Pathologist | | | | | At | Signature | + +-------+ + + + | MAGNESIUM,P | 2.0 | 1.8 - 2.5 mg/dL | [facility] | | | LASMA | | | [...] | + + + + + | [facility] | [address] | [place] [address] | | | SERVICES, CORE | [address] | | | + + + + + CAPILLARY BLOOD GLUCOSE (NO CHG), POC (12/12/2012 3:57 AM PDT) + +---------+ + + + | Component | Value | Ref Range | Performed | Pathologist | | | | | At | Signature | + +---------+ + + + | BLOOD | 132 (H) | 60 - 99 mg/dL | [facility] - | | | GLUCOSE, | | [...] + | [facility] | [address] | [place], [place] | | | [facility] | [address] | [address] | | | TESTS | | | | + + + + + CAPILLARY BLOOD GLUCOSE (NO CHG), POC (12/12/2012 3:06 AM PDT) + +---------+ + + + | Component | Value | Ref Range | Performed | Pathologist | | | | | At | Signature | + +---------+ + + + | BLOOD | 131 (H) | 60 - 99 mg/dL | [...] + + + + | [facility] | [address] | [place], [place] | | | [place], [facility] CARE | [address] | [address] | | | TESTS | | | | + + + + + CAPILLARY BLOOD GLUCOSE (NO CHG), POC (12/12/2012 2:11 AM PDT) + +---------+ + + + | Component | Value | Ref Range | Performed | Pathologist | | | | | At | Signature | + +---------+ + + + | BLOOD | 124 (H) | 60 - 99 mg/dL | [facility] | | | GLUCOSE, | | | [facility] | | | POC | | | [facility] | | | | | | OF CARE | | | | | | TESTS | | + +---------+ + + + + + | Specimen | + + | | + + + + + + + | Performing | Address | City/State/Zipcode | Phone Number | | Organization | | | | + + + + + | [facility] | [address] | [place], [place] | | | [facility] | [facility] | [address] | | | TESTS | | | | + + + + + CAPILLARY BLOOD GLUCOSE (NO CHG), POC (12/12/2012 1:01 AM PDT) + +---------+ + + + | Component | Value | Ref Range | Performed | Pathologist | | | | | At | Signature | + +---------+ + + + | BLOOD | 126 (H) | 60 - 99 mg/dL | [...] + | [facility] | [address] | [place], [place] | | | [facility] | [address] | [address] | | | TESTS | | | | + + + + + CAPILLARY BLOOD GLUCOSE (NO CHG), POC (12/11/2012 11:59 PM PDT) + +---------+ + + + | Component | Value | Ref Range | Performed | Pathologist | | | | | At | Signature | + +---------+ + + + | BLOOD | 149 (H) | 60 - 99 mg/dL | [...] + + + + | [facility] | [address] | [place], [place] | | | [facility], [facility] CARE | [address] | [address] | | | TESTS | | | | + + + + + BLOOD GASES, ARTERIAL - LAB (12/11/2012 11:59 PM PDT) + + + + + + | Component | Value | Ref Range | Performed | Pathologist | | | | | At | Signature | + + + + + + | PAT TEMP | 36.6 | Degree C | [facility] | | | ARTERIAL | | | LABORATORY | | | | | | SERVICES, | | | | | | CORE | | + + + + + + | FIO2 | .40 | | [facility] | | | ARTERIAL | | | LABORATORY | | | | | | SERVICES, | | | | | | CORE | | + + + + + + | PH ARTERIAL | 7.48 (H) | 7.37 - 7.44 | [facility] | | | | | | LABORATORY | | | | | | SERVICES, | | | | | | CORE | | + + + + + + | PCO2 | 37 | 32 - 43 mmHg | [facility] | | | ARTERIAL | | | LABORATORY | | | | | | SERVICES, | | | | | | CORE | | + + + + + + | PO2 | 118 (H) | 72 - 104 mmHg | [facility] | | | ARTERIAL | | | LABORATORY | | | | | | SERVICES, | | | | | | CORE | | + + + + + + | HCO3 | 27 | 21 - 28 mmol/L | [facility] | | | ARTERIAL | | | LABORATORY | | | | | | SERVICES, | | | | | | CORE | | + + + + + + | TOTAL CO2 | 28 | 22 - 28 mmol/L | [facility] | | | ARTERIAL | | | LABORATORY | | | | | | SERVICES, | | | | | | CORE | | + + + + + + | BASE EXCESS | 4.0 | | [facility] | | | ARTERIAL | | | LABORATORY | | | | | | SERVICES, | | | | | | CORE | | + + + + + + | O2 SAT, | 98.9 (H) | 92.0 - 98.0 | [facility] | | | ARTERIAL | | | LABORATORY | | | [...] | + + + + + | [facility] | [address] | [place] [address] | | | SERVICES, CORE | [address] | | | + + + + + MAGNESIUM, PLASMA (12/11/2012 11:59 PM PDT) + +-------+ + + + | Component | Value | Ref Range | Performed | Pathologist | | | | | At | Signature | + +-------+ + + + | MAGNESIUM,P | 2.0 | 1.8 - 2.5 mg/dL | [facility] [...] | + + + + + | [facility] | [address] | [place] [address] | | | SERVICES, CORE | [address] | | | + + + + + RENAL FUNCTION SET (NA,K,CL,CO2,BUN,CREAT,GLUC,CA,PHOS,ALB ) (12/11/2012 11:59 PM PDT) + + + + + + | Component | Value | Ref Range | Performed | Pathologist | | | | | At | Signature | + + + + + + | GLUCOSE, | 133 (H) | 60 - 99 mg/dL | [facility] | | | PLASMA | | | LABORATORY | | | (LAB) | | | SERVICES, | | | | | | CORE | | + + + + + + | BUN, PLASMA | 53 (H) | 6 - 20 mg/dL | [facility] | | | (LAB) | | | LABORATORY | | | | | | SERVICES, | | | | | | CORE | | + + + + + + | CREATININE | 2.87 (H) | 0.70 - 1.30 | [facility] | | | PLASMA | | mg/dL | LABORATORY | | | (LAB) | | | SERVICES, | | | | | | CORE | | + + + + + + | SODIUM, | 142 | 136 - 145 | [facility] | | | PLASMA | | mmol/L | LABORATORY | | | (LAB) | | | SERVICES, | | | | | | CORE | | + + + + + + | POTASSIUM, | 4.5 | 3.4 - 5.0 | [facility] | | | PLASMA | | mmol/L | LABORATORY | | | (LAB) | | | SERVICES, | | | | | | CORE | | + + + + + + | CHLORIDE, | 106 | 97 - 108 mmol/L | [facility] | | | PLASMA | | | LABORATORY | | | (LAB) | | | SERVICES, | | | | | | CORE | | + + + + + + | TOTAL CO2, | 27 | 21 - 32 mmol/L | [facility] | | | PLASMA | | | LABORATORY | | | (LAB) | | | SERVICES, | | | | | | CORE | | + + + + + + | CALCIUM, | 7.9 (L) | 8.6 - 10.2 | [facility] | | | PLASMA | | mg/dL | LABORATORY | | | (LAB) | | | SERVICES, | | | | | | CORE | | + + + + + + | ALBUMIN, | 2.2 (L) | 3.5 - 4.7 g/dL | [facility] | | | PLASMA | | | LABORATORY | | | (LAB) | | | SERVICES, | | | | | | CORE | | + + + + + + | PHOSPHORUS, | 3.6 | 2.4 - 4.7 mg/dL | [facility] | | | PLASMA [...] test result. | LABORATORY | | | SERVICES, CORE | + + + + + + + + | Performing | Address | City/State/Zipcode | Phone Number | | Organization | | | | + + + + + | [facility] | [address] | [place] [address] | | | SERVICES, CORE | [address] | | | + + + + + CAPILLARY BLOOD GLUCOSE (NO CHG), POC (12/11/2012 11:03 PM PDT) + +---------+ + + + | Component | Value | Ref Range | Performed | Pathologist | | | | | At | Signature | + +---------+ + + + | BLOOD | 126 (H) | 60 - 99 mg/dL | [facility] - | | | GLUCOSE, | | [...] + | [facility] | [address] | [place], [place] | | | [facility] MA[facility] OF [facility] | [address] | [address] | | | TESTS | | | | + + + + + HEPARIN, EITHER STANDARD / LMW, BLOOD (12/11/2012 10:00 PM PDT) + +-------+ + + + | Component | Value | Ref Range | Performed | Pathologist | | | | | At | Signature | + +-------+ + + + | HEPARIN, | 0.32 | U/mL | [facility] | | | STD LMW | | | LABORATORY | | | | | | SERVICES, | | | | | | CORE | | + +-------+ + + + + + | Specimen | + + | Blood - Blood | + + + + + | Narrative | Performed At | + + + | Heparin, Either STD/LMW - Therapeutic Ranges: Heparin, | [facility] | | Unfractionated: 0.35 - 0.70 U/mL Enoxaparin, LMWH: 0.70 | LABORATORY | | - 1.20 U/mL Dalteparin, LMWH: 0.70 - 1.20 U/mL | SERVICES, CORE | | Tinzaparin, LMWH: Therapeutic range not established. | | | Preliminary studies suggest range | | | similar to dalteparin. Clinical | | | correlation required. | | | Heparin levels may be unreliable for: | | | Total bilirubin >6.6mg/dL | | | Triglycerides >360 mg/dL | | | or Moderate to Gross Hemolysis | | + + + + + + + + | Performing | Address | City/State/Zipcode | Phone Number | | Organization | | | | + + + + + | [facility] | [address] | [place] [address] | | | SERVICES, TOI | [address] | | | + + + + + CAPILLARY BLOOD GLUCOSE (NO CHG), POC (12/11/2012 10:00 PM PDT) + +---------+ + + + | Component | Value | Ref Range | Performed | Pathologist | | | | | At | Signature | + +---------+ + + + | BLOOD | 118 (H) | 60 - 99 mg/dL | [...] + + + + | [facility] | [address] | [place], [place] | | | K[facility] AM[facility] OF CARE | [facility] | [address] | | | TESTS | | | | + + + + + CAPILLARY BLOOD GLUCOSE (NO CHG), POC (12/11/2012 8:59 PM PDT) + +---------+ + + + | Component | Value | Ref Range | Performed | Pathologist | | | | | At | Signature | + +---------+ + + + | BLOOD | 116 (H) | 60 - 99 mg/dL | [facility] - | | | GLUCOSE, | | [...] | [facility] | [address] | [place], [place] | | | K[facility] MA[facility] OF [facility] | [address] | [address] | | | TESTS | | | | + + + + + CAPILLARY BLOOD GLUCOSE (NO CHG), POC (12/11/2012 8:06 PM PDT) + +---------+ + + + | Component | Value | Ref Range | Performed | Pathologist | | | | | At | Signature | + +---------+ + + + | BLOOD | 141 (H) | 60 - 99 mg/dL | [...] + | [facility] | [address] | [place], [place] | | | K[facility] | [facility] | [address] | | | TESTS | | | | + + + + + MAGNESIUM, PLASMA (12/11/2012 8:00 PM PDT) + +-------+ + + + | Component | Value | Ref Range | Performed | Pathologist | | | | | At | Signature | + +-------+ + + + | MAGNESIUM,P | 2.1 | 1.8 - 2.5 mg/dL | [facility] [...] + + | [facility] | [address] | [place] [address] | | | SERVICES, CORE | [address] | | | + + + + + BLOOD GASES, ARTERIAL - LAB (12/11/2012 8:00 PM PDT) + + + + + + | Component | Value | Ref Range | Performed | Pathologist | | | | | At | Signature | + + + + + + | PAT TEMP | 36.8 | Degree C | [facility] | | | ARTERIAL | | | LABORATORY | | | | | | SERVICES, | | | | | | CORE | | + + + + + + | FIO2 | .4 | | [facility] | | | ARTERIAL | | | LABORATORY | | | | | | SERVICES, | | | | | | CORE | | + + + + + + | PH ARTERIAL | 7.47 (H) | 7.37 - 7.44 | [facility] | | | | | | LABORATORY | | | | | | SERVICES, | | | | | | CORE | | + + + + + + | PCO2 | 39 | 32 - 43 mmHg | [facility] | | | ARTERIAL | | | LABORATORY | | | | | | SERVICES, | | | | | | CORE | | + + + + + + | PO2 | 132 (H) | 72 - 104 mmHg | [facility] | | | ARTERIAL | | | LABORATORY | | | | | | SERVICES, | | | | | | CORE | | + + + + + + | HCO3 | 28 | 21 - 28 mmol/L | [facility] | | | ARTERIAL | | | LABORATORY | | | | | | SERVICES, | | | | | | CORE | | + + + + + + | TOTAL CO2 | 29 (H) | 22 - 28 mmol/L | [facility] | | | ARTERIAL | | | LABORATORY | | | | | | SERVICES, | | | | | | CORE | | + + + + + + | BASE EXCESS | 3.9 | | [facility] | | | ARTERIAL | | | LABORATORY | | | | | | SERVICES, | | | | | | CORE | | + + + + + + | O2 SAT, | 99.0 (H) | 92.0 - 98.0 | [facility] | | | ARTERIAL | | | LABORATORY | | | [...] + | [facility] | [address] | [place] [address] | | | SERVICES, CORE | [address] | | | + + + + + RENAL FUNCTION SET (NA,K,CL,CO2,BUN,CREAT,GLUC,CA,PHOS,ALB ) (12/11/2012 8:00 PM PDT) + + + + + + | Component | Value | Ref Range | Performed | Pathologist | | | | | At | Signature | + + + + + + | GLUCOSE, | 123 (H) | 60 - 99 mg/dL | [facility] | | | PLASMA | | | LABORATORY | | | (LAB) | | | SERVICES, | | | | | | CORE | | + + + + + + | BUN, PLASMA | 59 (H) | 6 - 20 mg/dL | [facility] | | | (LAB) | | | LABORATORY | | | | | | SERVICES, | | | | | | CORE | | + + + + + + | CREATININE | 3.05 (H) | 0.70 - 1.30 | [facility] | | | PLASMA | | mg/dL | LABORATORY | | | (LAB) | | | SERVICES, | | | | | | CORE | | + + + + + + | SODIUM, | 143 | 136 - 145 | [facility] | | | PLASMA | | mmol/L | LABORATORY | | | (LAB) | | | SERVICES, | | | | | | CORE | | + + + + + + | POTASSIUM, | 4.4 | 3.4 - 5.0 | [facility] | | | PLASMA | | mmol/L | LABORATORY | | | (LAB) | | | SERVICES, | | | | | | CORE | | + + + + + + | CHLORIDE, | 106 | 97 - 108 mmol/L | [facility] | | | PLASMA | | | LABORATORY | | | (LAB) | | | SERVICES, | | | | | | CORE | | + + + + + + | TOTAL CO2, | 27 | 21 - 32 mmol/L | [facility] | | | PLASMA | | | LABORATORY | | | (LAB) | | | SERVICES, | | | | | | CORE | | + + + + + + | CALCIUM, | 8.2 (L) | 8.6 - 10.2 | [facility] | | | PLASMA | | mg/dL | LABORATORY | | | (LAB) | | | SERVICES, | | | | | | CORE | | + + + + + + | ALBUMIN, | 2.1 (L) | 3.5 - 4.7 g/dL | [facility] | | | PLASMA | | | LABORATORY | | | (LAB) | | | SERVICES, | | | | | | CORE | | + + + + + + | PHOSPHORUS, | 3.7 | 2.4 - 4.7 mg/dL | [facility] | | | PLASMA [...] + + + | ANION GAP | 10 | 4 - 11 mmol/L | [facility] | | | | | | LABORATORY | | | | | | SERVICES, | | | | | | CORE | | + + + + + + | ANION | 14 (H) | 4 - 11 mmol/L | [...] + | [facility] | [address] | [place] [address] | | | SERVICES, CORE | [address] | | | + + + + + CAPILLARY BLOOD GLUCOSE (NO CHG), POC (12/11/2012 7:01 PM PDT) + +---------+ + + + | Component | Value | Ref Range | Performed | Pathologist | | | | | At | Signature | + +---------+ + + + | BLOOD | 135 (H) | 60 - 99 mg/dL | [...] + + + + | [facility] | [address] | [place], [place] | | | [facility] | [address] | [address] | | | TESTS | | | | + + + + + CAPILLARY BLOOD GLUCOSE (NO CHG), POC (12/11/2012 6:05 PM PDT) + +---------+ + + + | Component | Value | Ref Range | Performed | Pathologist | | | | | At | Signature | + +---------+ + + + | BLOOD | 158 (H) | 60 - 99 mg/dL | [...] + + + | [facility] | [address] | [place], [place] | | | [facility] | [address] | [address] | | | TESTS | | | | + + + + + CAPILLARY BLOOD GLUCOSE (NO CHG), POC (12/11/2012 4:53 PM PDT) + +---------+ + + + | Component | Value | Ref Range | Performed | Pathologist | | | | | At | Signature | + +---------+ + + + | BLOOD | 130 (H) | 60 - 99 mg/dL | [...] + + + + | [facility] | [address] | [place], [place] | | | [facility] | [facility] | [address] | | | TESTS | | | | + + + + + BLOOD GASES, ARTERIAL - LAB (12/11/2012 4:47 PM PDT) + + + + + + | Component | Value | Ref Range | Performed | Pathologist | | | | | At | Signature | + + + + + + | PAT TEMP | ng | Degree C | [facility] | | | ARTERIAL | | | LABORATORY | | | | | | SERVICES, | | | | | | CORE | | + + + + + + | FIO2 | ng | | [facility] | | | ARTERIAL | | | LABORATORY | | | | | | SERVICES, | | | | | | CORE | | + + + + + + | PH ARTERIAL | 7.45 (H) | 7.37 - 7.44 | [facility] | | | | | | LABORATORY | | | | | | SERVICES, | | | | | | CORE | | + + + + + + | PCO2 | 40 | 32 - 43 mmHg | [facility] | | | ARTERIAL | | | LABORATORY | | | | | | SERVICES, | | | | | | CORE | | + + + + + + | PO2 | 120 (H) | 72 - 104 mmHg | [facility] | | | ARTERIAL | | | LABORATORY | | | | | | SERVICES, | | | | | | CORE | | + + + + + + | HCO3 | 27 | 21 - 28 mmol/L | [facility] | | | ARTERIAL | | | LABORATORY | | | | | | SERVICES, | | | | | | CORE | | + + + + + + | TOTAL CO2 | 28 | 22 - 28 mmol/L | [facility] | | | ARTERIAL | | | LABORATORY | | | | | | SERVICES, | | | | | | CORE | | + + + + + + | BASE EXCESS | 3.3 | | [facility] | | | ARTERIAL | | | LABORATORY | | | | | | SERVICES, | | | | | | CORE | | + + + + + + | O2 SAT, | 98.7 (H) | 92.0 - 98.0 | [facility] | | | ARTERIAL | | | LABORATORY | | | [...] | + + + + + | [facility] | [address] | [place] [address] | | | SERVICES, CORE | [address] | | | + + + + + MAGNESIUM, PLASMA (12/11/2012 4:46 PM PDT) + +-------+ + + + | Component | Value | Ref Range | Performed | Pathologist | | | | | At | Signature | + +-------+ + + + | MAGNESIUM,P | 2.3 | 1.8 - 2.5 mg/dL | [facility] [...] + + | [facility] | [address] | [place] [address] | | | SERVICES, CORE | [address] | | | + + + + + HEPARIN, EITHER STANDARD / LMW, BLOOD (12/11/2012 4:46 PM PDT) + +-------+ + + + | Component | Value | Ref Range | Performed | Pathologist | | | | | At | Signature | + +-------+ + + + | HEPARIN, | 0.38 | U/mL | [facility] | | | STD LMW | | | LABORATORY | | | | | | SERVICES, | | | | | | CORE | | + +-------+ + + + + + | Specimen | + + | Blood - Blood | + + + + + | Narrative | Performed At | + + + | Heparin, Either STD/LMW - Therapeutic Ranges: Heparin, | [facility] | | Unfractionated: 0.35 - 0.70 U/mL Enoxaparin, LMWH: 0.70 | LABORATORY | | - 1.20 U/mL Dalteparin, LMWH: 0.70 - 1.20 U/mL | SERVICES, CORE | | Tinzaparin, LMWH: Therapeutic range not established. | | | Preliminary studies suggest range | | | similar to dalteparin. Clinical | | | correlation required. | | | Heparin levels may be unreliable for: | | | Total bilirubin >6.6mg/dL | | | Triglycerides >360 mg/dL | | | or Moderate to Gross Hemolysis | | + + + + + + + + | Performing | Address | City/State/Zipcode | Phone Number | | Organization | | | | + + + + + | [facility] | [address] | [place] [address] | | | SERVICES, CORE | [address] | | | + + + + + RENAL FUNCTION SET (NA,K,CL,CO2,BUN,CREAT,GLUC,CA,PHOS,ALB ) (12/11/2012 4:46 PM PDT) + + + + + + | Component | Value | Ref Range | Performed | Pathologist | | | | | At | Signature | + + + + + + | GLUCOSE, | 125 (H) | 60 - 99 mg/dL | [facility] | | | PLASMA | | | LABORATORY | | | (LAB) | | | SERVICES, | | | | | | CORE | | + + + + + + | BUN, PLASMA | 65 (H) | 6 - 20 mg/dL | [facility] | | | (LAB) | | | LABORATORY | | | | | | SERVICES, | | | | | | CORE | | + + + + + + | CREATININE | 3.44 (H) | 0.70 - 1.30 | [facility] | | | PLASMA | | mg/dL | LABORATORY | | | (LAB) | | | SERVICES, | | | | | | CORE | | + + + + + + | SODIUM, | 143 | 136 - 145 | [facility] | [...] + + + + | CHLORIDE, | 106 | 97 - 108 mmol/L | [facility] | | | PLASMA | | | LABORATORY | | | (LAB) | | | SERVICES, | | | | | | CORE | | + + + + + + | TOTAL CO2, | 27 | 21 - 32 mmol/L | [facility] | | | PLASMA | | | LABORATORY | | | (LAB) | | | SERVICES, | | | | | | CORE | | + + + + + + | CALCIUM, | 8.4 (L) | 8.6 - 10.2 | [facility] | | | PLASMA | | mg/dL | LABORATORY | | | (LAB) | | | SERVICES, | | | | | | CORE | | + + + + + + | ALBUMIN, | 2.2 (L) | 3.5 - 4.7 g/dL | [facility] | | | PLASMA | | | LABORATORY | | | (LAB) | | | SERVICES, | | | | | | CORE | | + + + + + + | PHOSPHORUS, | 4.4 | 2.4 - 4.7 mg/dL | [facility] | | | PLASMA [...] + + + | ANION GAP | 10 | 4 - 11 mmol/L | [facility] | | | | | | LABORATORY | | | | | | SERVICES, | | | | | | CORE | | + + + + + + | ANION | 14 (H) | 4 - 11 mmol/L | [...] test result. | LABORATORY | | | SERVICES, CORE | + + + + + + + + | Performing | Address | City/State/Zipcode | Phone Number | | Organization | | | | + + + + + | [facility] | [address] | [place] [address] | | | SERVICES, CORE | [address] | | | + + + + + CAPILLARY BLOOD GLUCOSE (NO CHG), POC (12/11/2012 3:15 PM PDT) + +---------+ + + + | Component | Value | Ref Range | Performed | Pathologist | | | | | At | Signature | + +---------+ + + + | BLOOD | 108 (H) | 60 - 99 mg/dL | [facility] - | | | GLUCOSE, | | [...] + | [facility] | [address] | [place], [place] | | | [facility] | [address] | [address] | | | TESTS | | | | + + + + + CAPILLARY BLOOD GLUCOSE (NO CHG), POC (12/11/2012 2:07 PM PDT) + +---------+ + + + | Component | Value | Ref Range | Performed | Pathologist | | | | | At | Signature | + +---------+ + + + | BLOOD | 118 (H) | 60 - 99 mg/dL | [...] + + + + | [facility] | [address] | [place], [place] | | | [place], [facility]ARE | [address] | [address] | | | TESTS | | | | + + + + + CAPILLARY BLOOD GLUCOSE (NO CHG), POC (12/11/2012 12:14 PM PDT) + +---------+ + + + | Component | Value | Ref Range | Performed | Pathologist | | | | | At | Signature | + +---------+ + + + | BLOOD | 140 (H) | 60 - 99 mg/dL | [...] | [facility] | [address] | [place], [place] | | | [facility] | [address] | [address] | | | TESTS | | | | + + + + + CALCIUM, IONIZED, WHOLE BLOOD (12/11/2012 12:11 PM PDT) + + + + + + | Component | Value | Ref Range | Performed | Pathologist | | | | | At | Signature | + + + + + + | BERTA ICA, | 1.12 (L) | 1.14 - 1.32 | [facility] | | | WHOLE BLD | | mmol/L | LABORATORY | | | | | | SERVICES, | | | | | | CORE | | + + + + + + | PH, WHOLE | 7.46 | | [facility] | | | BLOOD | | | LABORATORY | | | | | | SERVICES, | | | | | | CORE | | + + + + + + | ICA, | 1.16 | 1.14 - 1.28 | [facility] | | | CORRECTED | | mmol/L | LABORATORY | | | TO PH 7.4 | | | SERVICES, | | | | | | CORE | | + + + + + + + + | Specimen | + + | Blood - Blood | + + + + + + + | Performing | Address | City/State/Zipcode | Phone Number | | Organization | | | | + + + + + | [facility] | [address] | [place] [address] | | | SERVICES, CORE | [address] | | | + + + + + MAGNESIUM, PLASMA (12/11/2012 12:11 PM PDT) + +-------+ + + + | Component | Value | Ref Range | Performed | Pathologist | | | | | At | Signature | + +-------+ + + + | MAGNESIUM,P | 2.2 | 1.8 - 2.5 mg/dL | [facility] | | | LASMA | | | [...] | + + + + + | [facility] | [address] [facility] | [place] [address] | | | SERVICES, CORE | [address] | | | + + + + + RENAL FUNCTION SET (NA,K,CL,CO2,BUN,CREAT,GLUC,CA,PHOS,ALB ) (12/11/2012 12:11 PM PDT) + + + + + + | Component | Value | Ref Range | Performed | Pathologist | | | | | At | Signature | + + + + + + | GLUCOSE, | 132 (H) | 60 - 99 mg/dL | [facility] | | | PLASMA | | | LABORATORY | | | (LAB) | | | SERVICES, | | | | | | CORE | | + + + + + + | BUN, PLASMA | 69 (H) | 6 - 20 mg/dL | [facility] | | | (LAB) | | | LABORATORY | | | | | | SERVICES, | | | | | | CORE | | + + + + + + | CREATININE | 3.96 (H) | 0.70 - 1.30 | [facility] | | | PLASMA | | mg/dL | LABORATORY | | | (LAB) | | | SERVICES, | | | | | | CORE | | + + + + + + | SODIUM, | 145 | 136 - 145 | [facility] | | | PLASMA | | mmol/L | LABORATORY | | | (LAB) | | | SERVICES, | | | | | | CORE | | + + + + + + | POTASSIUM, | 3.9 | 3.4 - 5.0 | [facility] | [...] + + + | TOTAL CO2, | 27 | 21 - 32 mmol/L | [facility] | | | PLASMA | | | LABORATORY | | | (LAB) | | | SERVICES, | | | | | | CORE | | + + + + + + | CALCIUM, | 8.2 (L) | 8.6 - 10.2 | [facility] | | | PLASMA | | mg/dL | LABORATORY | | | (LAB) | | | SERVICES, | | | | | | CORE | | + + + + + + | ALBUMIN, | 2.2 (L) | 3.5 - 4.7 g/dL | [facility] | | | PLASMA | | | LABORATORY | | | (LAB) | | | SERVICES, | | | | | | CORE | | + + + + + + | PHOSPHORUS, | 4.3 | 2.4 - 4.7 mg/dL | [facility] | | | PLASMA [...] + + + | ANION GAP | 11 | 4 - 11 mmol/L | [facility] | | | | | | LABORATORY | | | | | | SERVICES, | | | | | | CORE | | + + + + + + | ANION | 15 (H) | 4 - 11 mmol/L | [...] | + + + + + | [facility] | [address] | [place] [address] | | | SERVICES, CORE | [address] | | | + + + + + BLOOD GASES, ARTERIAL - LAB (12/11/2012 12:11 PM PDT) + + + + + + | Component | Value | Ref Range | Performed | Pathologist | | | | | At | Signature | + + + + + + | PAT TEMP | ng | Degree C | [facility] | | | ARTERIAL | | | LABORATORY | | | | | | SERVICES, | | | | | | CORE | | + + + + + + | FIO2 | ng | | [facility] | | | ARTERIAL | | | LABORATORY | | | | | | SERVICES, | | | | | | CORE | | + + + + + + | PH ARTERIAL | 7.46 (H) | 7.37 - 7.44 | [facility] | | | | | | LABORATORY | | | | | | SERVICES, | | | | | | CORE | | + + + + + + | PCO2 | 39 | 32 - 43 mmHg | [facility] | | | ARTERIAL | | | LABORATORY | | | | | | SERVICES, | | | | | | CORE | | + + + + + + | PO2 | 110 (H) | 72 - 104 mmHg | [facility] | | | ARTERIAL | | | LABORATORY | | | | | | SERVICES, | | | | | | CORE | | + + + + + + | HCO3 | 27 | 21 - 28 mmol/L | [facility] | | | ARTERIAL | | | LABORATORY | | | | | | SERVICES, | | | | | | CORE | | + + + + + + | TOTAL CO2 | 29 (H) | 22 - 28 mmol/L | [facility] | | | ARTERIAL | | | LABORATORY | | | | | | SERVICES, | | | | | | CORE | | + + + + + + | BASE EXCESS | 3.9 | | [facility] | | | ARTERIAL | | | LABORATORY | | | | | | SERVICES, | | | | | | CORE | | + + + + + + | O2 SAT, | 98.5 (H) | 92.0 - 98.0 | [facility] | | | ARTERIAL | | | LABORATORY | | | [...] | + + + + + | [facility] | [address] | [place] [address] | | | SERVICES, CORE | [address] | | | + + + + + CAPILLARY BLOOD GLUCOSE (NO CHG), POC (12/11/2012 10:25 AM PDT) + +---------+ + + + | Component | Value | Ref Range | Performed | Pathologist | | | | | At | Signature | + +---------+ + + + | BLOOD | 150 (H) | 60 - 99 mg/dL | [...] + + + + | [facility] | [address] | [place], [place] | | | [facility] | [address] | [address] | | | TESTS | | | | + + + + + HEPARIN, EITHER STANDARD / LMW, BLOOD (12/11/2012 10:20 AM PDT) + +-------+ + + + | Component | Value | Ref Range | Performed | Pathologist | | | | | At | Signature | + +-------+ + + + | HEPARIN, | 0.27 | U/mL | [facility] | | | STD LMW | | | LABORATORY | | | | | | SERVICES, | | | | | | CORE | | + +-------+ + + + + + | Specimen | + + | Blood - Blood | + + + + + | Narrative | Performed At | + + + | Heparin, Either STD/LMW - Therapeutic Ranges: Heparin, | [facility] | | Unfractionated: 0.35 - 0.70 U/mL Enoxaparin, LMWH: 0.70 | LABORATORY | | - 1.20 U/mL Dalteparin, LMWH: 0.70 - 1.20 U/mL | SERVICES, CORE | | Tinzaparin, LMWH: Therapeutic range not established. | | | Preliminary studies suggest range | | | similar to dalteparin. Clinical | | | correlation required. | | | Heparin levels may be unreliable for: | | | Total bilirubin >6.6mg/dL | | | Triglycerides >360 mg/dL | | | or Moderate to Gross Hemolysis | | + + + + + + + + | Performing | Address | City/State/Zipcode | Phone Number | | Organization | | | | + + + + + | [facility] | [address] | [place] [address] | | | SERVICES, CORE | [address] | | | + + + + + CAPILLARY BLOOD GLUCOSE (NO CHG), POC (12/11/2012 8:13 AM PDT) + +---------+ + + + | Component | Value | Ref Range | Performed | Pathologist | | | | | At | Signature | + +---------+ + + + | BLOOD | 136 (H) | 60 - 99 mg/dL | [facility] - | | | GLUCOSE, | | [...] + | [facility] | [address] | [place], [place] | | | [facility]AIL[facility] | [address] | [address] | | | TESTS | | | | + + + + + CAPILLARY BLOOD GLUCOSE (NO CHG), POC (12/11/2012 6:57 AM PDT) + +---------+ + + + | Component | Value | Ref Range | Performed | Pathologist | | | | | At | Signature | + +---------+ + + + | BLOOD | 122 (H) | 60 - 99 mg/dL | [...] + + + + | [facility] | [address] | [place], [place] | | | KAILYN MAZA OF [facility] | [facility] | [address] | | | TESTS | | | | + + + + + ATIII ACTIVITY, PLASMA (12/11/2012 6:54 AM PDT) + + + + + + | Component | Value | Ref Range | Performed | Pathologist | | | | | At | Signature | + + + + + + | ATIII | 0.56 (LL) | 0.86 - 1.18 | [facility] | | | ACTIVITY, | | U/mL | LABORATORY | | | PLASMA | | | SERVICES, | | | | | | CORE | | + + + + + + + + | Specimen | + + | Blood - Blood | + + + + + | Narrative | Performed At | + + + | Published reference ranges for children less than 6 months | [facility] | | can be found in the Hemostasis Section general instructions of the | LABORATORY | | [facility] Lab Manual: | TOI MARIN | | [email or web address] | | + + + + + + + + | Performing | Address | City/State/Zipcode | Phone Number | | Organization | | | | + + + + + | [facility] | [address] | [place] [address] | | | TOI MARIN | [address] | | | + + + + + HEPARIN, EITHER STANDARD / LMW, BLOOD (12/11/2012 6:00 AM PDT) + +-------+ + + + | Component | Value | Ref Range | Performed | Pathologist | | | | | At | Signature | + +-------+ + + + | HEPARIN, | <0.10 | U/mL | [facility] | | | STD LMW | | | LABORATORY | | | | | | SERVICES, | | | | | | CORE | | + +-------+ + + + + + | Specimen | + + | Blood - Blood | + + + + + | Narrative | Performed At | + + + | Specimen Hemolyzed. Heparin, Either STD/LMW - Therapeutic | [facility] | | Ranges: Heparin, Unfractionated: 0.35 - 0.70 U/mL Enoxaparin, | LABORATORY | | LMWH: 0.70 - 1.20 U/mL Dalteparin, LMWH: 0.70 | [facility] | | - 1.20 U/mL Tinzaparin, LMWH: Therapeutic range not | | | established. Preliminary | | | studies suggest range similar | | | to dalteparin. Clinical | | | correlation required. Heparin levels may be unreliable for: | | | Total bilirubin >6.6mg/dL | | | Triglycerides >360 mg/dL | | | or Moderate to Gross Hemolysis | | + + + + + + + + | Performing | Address | City/State/Zipcode | Phone Number | | Organization | | | | + + + + + | [facility] | [address] | [place] [address] | | | SERVICES, CORE | [address] | | | + + + + + BLOOD GASES, ARTERIAL - LAB (12/11/2012 6:00 AM PDT) + + + + + + | Component | Value | Ref Range | Performed | Pathologist | | | | | At | Signature | + + + + + + | PAT TEMP | 36.8 | Degree C | [facility] | | | ARTERIAL | | | LABORATORY | | | | | | SERVICES, | | | | | | CORE | | + + + + + + | FIO2 | .40 | | [facility] | | | ARTERIAL | | | LABORATORY | | | | | | SERVICES, | | | | | | CORE | | + + + + + + | PH ARTERIAL | 7.46 (H) | 7.37 - 7.44 | [facility] | | | | | | LABORATORY | | | | | | SERVICES, | | | | | | CORE | | + + + + + + | PCO2 | 39 | 32 - 43 mmHg | [facility] | | | ARTERIAL | | | LABORATORY | | | | | | SERVICES, | | | | | | CORE | | + + + + + + | PO2 | 123 (H) | 72 - 104 mmHg | [facility] | | | ARTERIAL | | | LABORATORY | | | | | | SERVICES, | | | | | | CORE | | + + + + + + | HCO3 | 27 | 21 - 28 mmol/L | [facility] | | | ARTERIAL | | | LABORATORY | | | | | | SERVICES, | | | | | | CORE | | + + + + + + | TOTAL CO2 | 28 | 22 - 28 mmol/L | [facility] | | | ARTERIAL | | | LABORATORY | | | | | | SERVICES, | | | | | | CORE | | + + + + + + | BASE EXCESS | 3.3 | | [facility] | | | ARTERIAL | | | LABORATORY | | | | | | SERVICES, | | | | | | CORE | | + + + + + + | O2 SAT, | 98.7 (H) | 92.0 - 98.0 | [facility] | | | ARTERIAL | | | LABORATORY | | | [...] | + + + + + | [facility] | [address] | [place] [address] | | | SERVICES, CORE | [address] | | | + + + + + MAGNESIUM, PLASMA (12/11/2012 6:00 AM PDT) + +-------+ + + + | Component | Value | Ref Range | Performed | Pathologist | | | | | At | Signature | + +-------+ + + + | MAGNESIUM,P | 2.4 | 1.8 - 2.5 mg/dL | [facility] | | | [facility] | | | LABORATORY | | | [...] | + + + + + | [facility] | [address] | [place] [address] | | | SERVICES, CORE | [address] | | | + + + + + RENAL FUNCTION SET (NA,K,CL,CO2,BUN,CREAT,GLUC,CA,PHOS,ALB ) (12/11/2012 6:00 AM PDT) + + + + + + | Component | Value | Ref Range | Performed | Pathologist | | | | | At | Signature | + + + + + + | GLUCOSE, | 128 (H) | 60 - 99 mg/dL | [facility] | | | PLASMA | | | LABORATORY | | | (LAB) | | | SERVICES, | | | | | | CORE | | + + + + + + | BUN, PLASMA | 91 (H) | 6 - 20 mg/dL | [facility] | | | (LAB) | | | LABORATORY | | | | | | SERVICES, | | | | | | CORE | | + + + + + + | CREATININE | 4.67 (H) | 0.70 - 1.30 | [facility] | | | PLASMA | | mg/dL | LABORATORY | | | (LAB) | | | SERVICES, | | | | | | CORE | | + + + + + + | SODIUM, | 144 | 136 - 145 | [facility] | | | PLASMA | | mmol/L | LABORATORY | | | (LAB) | | | SERVICES, | | | | | | CORE | | + + + + + + | POTASSIUM, | 4.0 | 3.4 - 5.0 | [facility] | [...] + + + | TOTAL CO2, | 28 | 21 - 32 mmol/L | [facility] [...] + + + + | ALBUMIN, | 2.1 (L) | 3.5 - 4.7 g/dL | [facility] | | | PLASMA | | | LABORATORY | | | (LAB) | | | SERVICES, | | | | | | CORE | | + + + + + + | PHOSPHORUS, | 5.4 (H) | 2.4 - 4.7 mg/dL | [facility] | | | PLASMA [...] | + + + + + | [facility] | [address] | [place] [address] | | | SERVICES, CORE | [address] | | | + + + + + X-RAY PORTABLE CHEST 1 VIEW (12/11/2012 6:00 AM PDT) + + + + + + | Component | Value | Ref Range | Performed | Pathologist | | | | | At | Signature | + + + + + + | X-RAY | STUDY: DC CHEST 1 VIEW | | | | | PORTABLE | 12/11/12 06:00:00 | | | | | CHEST 1 | CLINICAL DATA: Evaluate | | | | | VIEW | retrocardiac opacity | | | | | | COMPARISON: Yesterday | | | | | | FINDINGS: The support | | | | | | equipment is unchanged. | | | | | | The cardiac silhouette | | | | | | isstable. The lung | | | | | | volumes are low with | | | | | | increasing | | | | | | perihilaratelectasis. | | | | | | Retrocardiac | | | | | | opacity/left lower lobe | | | | | | atelectasis isstable. | | | | | | There is persistent | | | | | | left pleural effusion. | | | | | | There is | | | | | | nopneumothorax.. | | | | | | IMPRESSION: Low lung | | | | | | volumes with stable | | | | | | perihilar atelectasis. | | | | | | Retrocardiac opacity | | | | | | most consistent with | | | | | | left lower | | | | | | lobecollapse/atelectasis | | | | | | and pleural effusion. | | | | | | However, if the | | | | | | patientis febrile, a | | | | | | pneumonia can have a | | | | | | similar appearance. | | | | | | Attending Radiologists: | | | | | | SHAY FABIAN MDAuthor: | | | | | | SHAY FABIAN MD I | | | | | | have personally viewed | | | | | | this procedure/exam, | | | | | | reviewed this report,and | | | | | | made changes to it | | | | | | where appropriate. | | | | | | Final/Electronically | | | | | | zen / SHAY | | | | | | FUSJammie 12/11/2012 8:31 AM | | | | | | | | | | + + + + + + + + | Specimen | + + | | + + + +---------+ + + | Performing | Address | City/State/Zipcode | Phone Number | | Organization | | | | + +---------+ + + | [facility] | | | | | RADIOLOGY | | | | + +---------+ + + CAPILLARY BLOOD GLUCOSE (NO CHG), POC (12/11/2012 5:57 AM PDT) + +---------+ + + + | Component | Value | Ref Range | Performed | Pathologist | | | | | At | Signature | + +---------+ + + + | BLOOD | 141 (H) | 60 - 99 mg/dL | [...] + + + + | [facility] | [address] | [place], [place] | | | [facility] | [facility] | [address] | | | TESTS | | | | + + + + + CAPILLARY BLOOD GLUCOSE (NO CHG), POC (12/11/2012 5:06 AM PDT) + +---------+ + + + | Component | Value | Ref Range | Performed | Pathologist | | | | | At | Signature | + +---------+ + + + | BLOOD | 140 (H) | 60 - 99 mg/dL | [...] + + + + | [facility] | [address] | [place], [place] | | | [facility] | [facility] | [address] | | | TESTS | | | | + + + + + CAPILLARY BLOOD GLUCOSE (NO CHG), POC (12/11/2012 3:49 AM PDT) + +---------+ + + + | Component | Value | Ref Range | Performed | Pathologist | | | | | At | Signature | + +---------+ + + + | BLOOD | 155 (H) | 60 - 99 mg/dL | [...] + | [facility] | [address] | [place], [place] | | | [facility] | [address] | [address] | | | TESTS | | | | + + + + + MANUAL DIFFERENTIAL (12/11/2012 2:00 AM PDT) + + + + + + | Component | Value | Ref Range | Performed | Pathologist | | | | | At | Signature | + + + + + + | NEUTROPHIL% | 79 (H) | 50 - 70 % | [facility] | | | | | | LABORATORY | | | | | | SERVICES, | | | | | | CORE | | + + + + + + | LYMPHOCYTE% | 5 (L) | 18 - 42 % | [facility] | | | | | | LABORATORY | | | | | | SERVICES, | | | | | | CORE | | + + + + + + | MONOCYTE % | 6 | 2 - 8 % | [facility] | | | | | | LABORATORY | | | | | | SERVICES, | | | | | | CORE | | + + + + + + | EOSINOPHIL | 1 | 1 - 3 % | [facility] | | | % | | | LABORATORY | | | | | | SERVICES, | | | | | | CORE | | + + + + + + | BASOPHIL % | 0 | 0 - 2 % | [facility] | | | | | | LABORATORY | | | | | | SERVICES, | | | | | | CORE | | + + + + + + | BANDS % | 6 | 0 - 10 % | [facility] | | | | | | LABORATORY | | | | | | SERVICES, | | | | | | CORE | | + + + + + + | METAMYELO% | 2 (H) | <=0 % | [facility] | | | | | | LABORATORY | | | | | | SERVICES, | | | | | | CORE | | + + + + + + | MYELOCYTES% | 1 (H) | <=0 % | [facility] | | | | | | LABORATORY | | | | | | SERVICES, | | | | | | CORE | | + + + + + + | PROMYELO% | 0 | <=0 % | [facility] | | | | | | LABORATORY | | | | | | SERVICES, | | | | | | CORE | | + + + + + + | ATYPICAL | 0 | <=0 | [facility] | | | CELL% | | | LABORATORY | | | | | | SERVICES, | | | | | | CORE | | + + + + + + | NEUTROPHIL | 11.5 (H) | 1.8 - 7.7 K/cu | [facility] | | | # | | mm | LABORATORY | | | | | | SERVICES, | | | | | | CORE | | + + + + + + | LYMPHOCYTE# | 0.7 (L) | 1.0 - 4.8 K/cu | [facility] | | | | | mm | LABORATORY | | | | | | SERVICES, | | | | | | CORE | | + + + + + + | MONOCYTE # | 0.9 (H) | 0.0 - 0.8 K/cu | [facility] | | | | | mm | LABORATORY | | | | | | SERVICES, | | | | | | CORE | | + + + + + + | EOSINOPHIL | 0.1 | 0.0 - 0.5 K/cu | [facility] | | | # | | mm | LABORATORY | | | | | | SERVICES, | | | | | | CORE | | + + + + + + | BASOPHIL # | 0.0 | 0.0 - 0.1 K/cu | [facility] | | | | | mm | LABORATORY | | | | | | SERVICES, | | | | | | CORE | | + + + + + + | BANDS # | 0.9 | 0.0 - 1.1 K/cu | [facility] | | | | | mm | LABORATORY | | | | | | SERVICES, | | | | | | CORE | | + + + + + + | METAMYELO# | 0.3 | K/cu mm | [facility] | | | | | | LABORATORY | | | | | | SERVICES, | | | | | | CORE | | + + + + + + | MYELOCYTES# | 0.1 | K/cu mm | [facility] | | | | | | LABORATORY | | | | | | SERVICES, | | | | | | CORE | | + + + + + + | PROMYELO # | 0.0 | K/cu mm | [facility] | | | | | | LABORATORY | | | | | | SERVICES, | | | | | | CORE | | + + + + + + | ATYPICAL | 0.0 | K/cu mm | [facility] | | | CELLS # | | | LABORATORY | | | | | | SERVICES, | | | | | | CORE | | + + + + + + | ANISOCYTOSI | 2+ (25-50cells/HPF) | (none) | [facility] | | | S | | | LABORATORY | | | | | | SERVICES, | | | | | | CORE | | + + + + + + | MACROCYTOSI | 2+ (25-50cells/HPF) | (none) | [facility] | | | S | | | LABORATORY | | | | | | SERVICES, | | | | | | CORE | | + + + + + + | POLYCHROMAS | 2+ (3-5cells/HPF) | (none) | [facility] | | | IA | | | LABORATORY | | | | | | SERVICES, | | | | | | CORE | | + + + + + + + + | Specimen | + + | Blood - Blood | + + + + + | Narrative | Performed At | + + + | Giant platelets present. Macro platelets present. | [facility] | | | LABORATORY | | | SERVICES, CORE | + + + + + + + + | Performing | Address | City/State/Zipcode | Phone Number | | Organization | | | | + + + + + | [facility] | [address] | [place] [address] | | | SERVICES, CORE | [address] | | | + + + + + CBC AND AUTO DIFF (12/11/2012 2:00 AM PDT) + + + + + + | Component | Value | Ref Range | Performed | Pathologist | | | | | At | Signature | + + + + + + | WBC COUNT | 14.6 (H) | 4.4 - 11.0 K/cu | [facility] | | | | | mm | LABORATORY | | | | | | SERVICES, | | | | | | CORE | | + + + + + + | RED CELL | 2.70 (L) | 4.50 - 5.90 | [facility] | | | COUNT | | M/cu mm | LABORATORY | | | | | | SERVICES, | | | | | | CORE | | + + + + + + | HEMOGLOBIN | 8.8 (L) | 13.5 - 17.5 | [facility] | | | | | g/dL | LABORATORY | | | | | | SERVICES, | | | | | | CORE | | + + + + + + | HEMATOCRIT | 25.5 (L) | 41.0 - 53.0 % | [facility] | | | | | | LABORATORY | | | | | | SERVICES, | | | | | | CORE | | + + + + + + | MCV | 94.7 | 80.0 - 96.0 fL | [facility] | | | | | | LABORATORY | | | | | | SERVICES, | | | | | | CORE | | + + + + + + | MCHC | 34.3 | 33.4 - 35.5 | [facility] | | | | | g/dL | LABORATORY | | | | | | SERVICES, | | | | | | CORE | | + + + + + + | RDW | 16.4 (H) | 11.5 - 15.0 % | [facility] | | | | | | LABORATORY | | | | | | SERVICES, | | | | | | CORE | | + + + + + + | PLATELET | 234 | 150 - 400 K/cu | [facility] [...] + | [facility] | [address] | [place] [address] | | | SERVICES, CORE | [address] | | | + + + + + BLOOD GASES, ARTERIAL - LAB (12/11/2012 2:00 AM PDT) + + + + + + | Component | Value | Ref Range | Performed | Pathologist | | | | | At | Signature | + + + + + + | PAT TEMP | 36.7 | Degree C | [facility] | | | ARTERIAL | | | LABORATORY | | | | | | SERVICES, | | | | | | CORE | | + + + + + + | FIO2 | .40 | | [facility] | | | ARTERIAL | | | LABORATORY | | | | | | SERVICES, | | | | | | CORE | | + + + + + + | PH ARTERIAL | 7.46 (H) | 7.37 - 7.44 | [facility] | | | | | | LABORATORY | | | | | | SERVICES, | | | | | | CORE | | + + + + + + | PCO2 | 39 | 32 - 43 mmHg | [facility] | | | ARTERIAL | | | LABORATORY | | | | | | SERVICES, | | | | | | CORE | | + + + + + + | PO2 | 111 (H) | 72 - 104 mmHg | [facility] | | | ARTERIAL | | | LABORATORY | | | | | | SERVICES, | | | | | | CORE | | + + + + + + | HCO3 | 27 | 21 - 28 mmol/L | [facility] | | | ARTERIAL | | | LABORATORY | | | | | | SERVICES, | | | | | | CORE | | + + + + + + | TOTAL CO2 | 28 | 22 - 28 mmol/L | [facility] | | | ARTERIAL | | | LABORATORY | | | | | | SERVICES, | | | | | | CORE | | + + + + + + | BASE EXCESS | 3.4 | | [facility] | | | ARTERIAL | | | LABORATORY | | | | | | SERVICES, | | | | | | CORE | | + + + + + + | O2 SAT, | 98.4 (H) | 92.0 - 98.0 | [facility] | | | ARTERIAL | | | LABORATORY | | | [...] + | [facility] | [address] | [place] [address] | | | SERVICES, CORE | [address] | | | + + + + + LIVER SET (AST,ALT,BILI TOTAL,BILI DIRECT,ALK PHOS,ALB,PROT TOTAL) (12/11/2012 2:00 AM PDT ) + + + + + + | Component | Value | Ref Range | Performed | Pathologist | | | | | At | Signature | + + + + + + | ALBUMIN, | 2.1 (L) | 3.5 - 4.7 g/dL | [facility] | | | PLASMA | | | LABORATORY | | | (LAB) | | | SERVICES, | | | | | | CORE | | + + + + + + | BILIRUBIN | 3.4 (H) | 0.3 - 1.2 mg/dL | [facility] | | | TOTAL | | | LABORATORY | | | | | | SERVICES, | | | | | | CORE | | + + + + + + | BILIRUBIN | 2.6 (H) | 0.0 - 0.3 mg/dL | [facility] | | | DIRECT | | | LABORATORY | | | | | | SERVICES, | | | | | | CORE | | + + + + + + | ALK PHOS | 199 (H) | 56 - 119 U/L | [facility] | | | | | | LABORATORY | | | | | | SERVICES, | | | | | | CORE | | + + + + + + | AST(SGOT) | 216 (H) | 15 - 41 U/L | [facility] | | | | | | LABORATORY | | | | | | SERVICES, | | | | | | CORE | | + + + + + + | ALT (SGPT) | 1,100 (H) | 12 - 60 U/L | [facility] | | | | | | LABORATORY | | | | | | SERVICES, | | | | | | CORE | | + + + + + + | TOTAL | 6.2 | 6.1 - 7.9 g/dL | [facility] | | | PROTEIN, | | | LABORATORY | | | PLASMA | | | SERVICES, | | | (LAB) | | | CORE | | + + + + + + | AST CMNT | No Hemo | | [facility] | | | | | | LABORATORY | | | | | | SERVICES, | | | | | | CORE | | + + + + + + | BILI T CMNT | No Hemo | | [facility] | | | | | | LABORATORY | | | | | | SERVICES, | | | | | | CORE | | + + + + + + | BILI D CMNT | No Hemo | | [facility] [...] | + + + + + | [facility] | [address] | [place] [address] | | | TANIA, TOI | [address] | | | + + + + + RENAL FUNCTION SET (NA,K,CL,CO2,BUN,CREAT,GLUC,CA,PHOS,ALB ) (12/11/2012 2:00 AM PDT) + + + + + + | Component | Value | Ref Range | Performed | Pathologist | | | | | At | Signature | + + + + + + | GLUCOSE, | 131 (H) | 60 - 99 mg/dL | [facility] | | | PLASMA | | | LABORATORY | | | (LAB) | | | SERVICES, | | | | | | CORE | | + + + + + + | BUN, PLASMA | 99 (H) | 6 - 20 mg/dL | [facility] | | | (LAB) | | | LABORATORY | | | | | | SERVICES, | | | | | | CORE | | + + + + + + | CREATININE | 5.21 (H) | 0.70 - 1.30 | [facility] | | | PLASMA | | mg/dL | LABORATORY | | | (LAB) | | | SERVICES, | | | | | | CORE | | + + + + + + | SODIUM, | 146 (H) | 136 - 145 | [facility] | | | PLASMA | | mmol/L | LABORATORY | | | (LAB) | | | SERVICES, | | | | | | CORE | | + + + + + + | POTASSIUM, | 4.0 | 3.4 - 5.0 | [facility] | [...] + + + | TOTAL CO2, | 27 | 21 - 32 mmol/L | [facility] | | | PLASMA | | | LABORATORY | | | (LAB) | | | SERVICES, | | | | | | CORE | | + + + + + + | CALCIUM, | 8.2 (L) | 8.6 - 10.2 | [facility] | | | PLASMA | | mg/dL | LABORATORY | | | (LAB) | | | SERVICES, | | | | | | CORE | | + + + + + + | ALBUMIN, | 2.1 (L) | 3.5 - 4.7 g/dL | [facility] | | | PLASMA | | | LABORATORY | | | (LAB) | | | SERVICES, | | | | | | CORE | | + + + + + + | PHOSPHORUS, | 6.2 (H) | 2.4 - 4.7 mg/dL | [facility] | | | PLASMA [...] + + + + | ANION | 16 (H) | 4 - 11 mmol/L | [...] + | [facility] | [address] | [place] [address] | | | SERVICES, CORE | [address] | | | + + + + + MAGNESIUM, PLASMA (12/11/2012 2:00 AM PDT) + +-------+ + + + | Component | Value | Ref Range | Performed | Pathologist | | | | | At | Signature | + +-------+ + + + | MAGNESIUM,P | 2.4 | 1.8 - 2.5 mg/dL | [facility] [...] | + + + + + | [facility] | [address] | [place] [address] | | | SERVICES, CORE | [address] | | | + + + + + CAPILLARY BLOOD GLUCOSE (NO CHG), POC (12/11/2012 1:59 AM PDT) + +---------+ + + + | Component | Value | Ref Range | Performed | Pathologist | | | | | At | Signature | + +---------+ + + + | BLOOD | 145 (H) | 60 - 99 mg/dL | [facility] - | | | GLUCOSE, | | [...] + | [facility] | [address] | [place], [place] | | | [facility] | [address] | [address] | | | TESTS | | | | + + + + + CAPILLARY BLOOD GLUCOSE (NO CHG), POC (12/11/2012 1:08 AM PDT) + +---------+ + + + | [...] | [facility] | [address] | [place], [place] | | | [facility] | [address] | [address] | | | TESTS | | | | + + + + + HEPARIN, EITHER STANDARD / LMW, BLOOD (12/11/2012 12:04 AM PDT) + +-------+ + + + | Component | Value | Ref Range | Performed | Pathologist | | | | | At | Signature | + +-------+ + + + | HEPARIN, | <0.10 | U/mL | [facility] | | | STD LMW | | | LABORATORY | | | | | | SERVICES, | | | | | | CORE | | + +-------+ + + + + + | Specimen | + + | Blood - Blood | + + + + + | Narrative | Performed At | + + + | Specimen Hemolyzed. Heparin, Either STD/LMW - Therapeutic | [facility] | | Ranges: Heparin, Unfractionated: 0.35 - 0.70 U/mL Enoxaparin, | LABORATORY | | LMWH: 0.70 - 1.20 U/mL Dalteparin, LMWH: 0.70 | SERVICES, CORE | | - 1.20 U/mL Tinzaparin, LMWH: Therapeutic range not | | | established. Preliminary | | | studies suggest range similar | | | to dalteparin. Clinical | | | correlation required. Heparin levels may be unreliable for: | | | Total bilirubin >6.6mg/dL | | | Triglycerides >360 mg/dL | | | or Moderate to Gross Hemolysis | | + + + + + + + + | Performing | Address | City/State/Zipcode | Phone Number | | Organization | | | | + + + + + | [facility] | [address] | [place] [address] | | | TOI MARIN | [address] | | | + + + + + CAPILLARY BLOOD GLUCOSE (NO CHG), POC (12/11/2012 12:02 AM PDT) + +---------+ + + + | Component | Value | Ref Range | Performed | Pathologist | | | | | At | Signature | + +---------+ + + + | BLOOD | 137 (H) | 60 - 99 mg/dL | [facility] - | | | GLUCOSE, | | [...] + | [facility] | [address] | [place], [place] | | | [facility] | [address] | [address] | | | TESTS | | | | + + + + + TRANSTHORACIC ECHOCARDIOGRAM, ADULT (12/11/2012 12:00 AM PDT) + + + | Narrative | Performed At | + + + | | | | | | + + + + + | Procedure Note | + + | Other, Faculty - 12/11/2012 3:52 PM PDT | + + CAPILLARY BLOOD GLUCOSE (NO CHG), POC (12/10/2012 11:30 PM PDT) + +---------+ + + + | Component | Value | Ref Range | Performed | Pathologist | | | | | At | Signature | + +---------+ + + + | BLOOD | 144 (H) | 60 - 99 mg/dL | [...] + | [facility] | [address] | [place], [place] | | | [facility] | [address] | [address] | | | TESTS | | | | + + + + + POTASSIUM, PLASMA (12/10/2012 11:27 PM PDT) + +---------+ + + + | Component | Value | Ref Range | Performed | Pathologist | | | | | At | Signature | + +---------+ + + + | POTASSIUM, | 3.9 | 3.4 - 5.0 | [facility] | | | PLASMA | | mmol/L | LABORATORY | | | (LAB) | | | SERVICES, | | | | | | CORE | | + +---------+ + + + | POTASSIUM | No [...] + | [facility] | [address] | [place] [address] | | | SERVICES, TOI | [address] | | | + + + + + CAPILLARY BLOOD GLUCOSE (NO CHG), POC (12/10/2012 10:03 PM PDT) + +---------+ + + + | Component | Value | Ref Range | Performed | Pathologist | | | | | At | Signature | + +---------+ + + + | BLOOD | 173 (H) | 60 - 99 mg/dL | [facility] - | | | GLUCOSE, | | [...] | [facility] | [address] | [place], [place] | | | [facility] | [address] | [address] | | | TESTS | | | | + + + + + BLOOD GASES, ARTERIAL - LAB (12/10/2012 10:00 PM PDT) + + + + + + | Component | Value | Ref Range | Performed | Pathologist | | | | | At | Signature | + + + + + + | PAT TEMP | 36.4 | Degree C | [facility] | | | ARTERIAL | | | LABORATORY | | | | | | SERVICES, | | | | | | CORE | | + + + + + + | FIO2 | 40 | | [facility] | | | ARTERIAL | | | LABORATORY | | | | | | SERVICES, | | | | | | CORE | | + + + + + + | PH ARTERIAL | 7.43 | 7.37 - 7.44 | [facility] | | | | | | LABORATORY | | | | | | SERVICES, | | | | | | CORE | | + + + + + + | PCO2 | 38 | 32 - 43 mmHg | [facility] | | | ARTERIAL | | | LABORATORY | | | | | | SERVICES, | | | | | | CORE | | + + + + + + | PO2 | 133 (H) | 72 - 104 mmHg | [facility] | | | ARTERIAL | | | LABORATORY | | | | | | SERVICES, | | | | | | CORE | | + + + + + + | HCO3 | 25 | 21 - 28 mmol/L | [facility] | | | ARTERIAL | | | LABORATORY | | | | | | SERVICES, | | | | | | CORE | | + + + + + + | TOTAL CO2 | 26 | 22 - 28 mmol/L | [facility] | | | ARTERIAL | | | LABORATORY | | | | | | SERVICES, | | | | | | CORE | | + + + + + + | BASE EXCESS | 1.2 | | [facility] | | | ARTERIAL | | | LABORATORY | | | | | | SERVICES, | | | | | | CORE | | + + + + + + | O2 SAT, | 99.0 (H) | 92.0 - 98.0 | [facility] | | | ARTERIAL | | | LABORATORY | | | [...] | + + + + + | [facility] | [address] | [place] [address] | | | SERVICES, CORE | [address] | | | + + + + + MAGNESIUM, PLASMA (12/10/2012 10:00 PM PDT) + +---------+ + + + | Component | Value | Ref Range | Performed | Pathologist | | | | | At | Signature | + +---------+ + + + | MAGNESIUM,P | 2.6 (H) | 1.8 - 2.5 mg/dL | [facility] | | | PITA | | | LABORATORY | | | [...] | + + + + + | [facility] | [address] | [place] [address] | | | SERVICES, CORE | [address] | | | + + + + + RENAL FUNCTION SET (NA,K,CL,CO2,BUN,CREAT,GLUC,CA,PHOS,ALB ) (12/10/2012 10:00 PM PDT) + + + + + + | Component | Value | Ref Range | Performed | Pathologist | | | | | At | Signature | + + + + + + | GLUCOSE, | 166 (H) | 60 - 99 mg/dL | [facility] | | | PLASMA | | | LABORATORY | | | (LAB) | | | SERVICES, | | | | | | CORE | | + + + + + + | BUN, PLASMA | 115 (H) | 6 - 20 mg/dL | [facility] | | | (LAB) | | | LABORATORY | | | | | | SERVICES, | | | | | | CORE | | + + + + + + | CREATININE | 5.79 (H) | 0.70 - 1.30 | [facility] | | | PLASMA | | mg/dL | LABORATORY | | | (LAB) | | | SERVICES, | | | | | | CORE | | + + + + + + | SODIUM, | 146 (H) | 136 - 145 | [facility] | | | PLASMA | | mmol/L | LABORATORY | | | (LAB) | | | SERVICES, | | | | | | CORE | | + + + + + + | POTASSIUM, | 5.4 (H) | 3.4 - 5.0 | [facility] | [...] + + + + | CALCIUM, | 8.2 (L) | 8.6 - 10.2 | [facility] | | | PLASMA | | mg/dL | LABORATORY | | | (LAB) | | | SERVICES, | | | | | | CORE | | + + + + + + | ALBUMIN, | 2.0 (L) | 3.5 - 4.7 g/dL | [facility] | | | PLASMA | | | LABORATORY | | | (LAB) | | | SERVICES, | | | | | | CORE | | + + + + + + | PHOSPHORUS, | 7.6 (H) | 2.4 - 4.7 mg/dL | [facility] | | | PLASMA [...] + + + + | ANION | 18 (H) | 4 - 11 mmol/L | [...] test result. | LABORATORY | | | SERVICES, CORE | + + + + + + + + | Performing | Address | City/State/Zipcode | Phone Number | | Organization | | | | + + + + + | [facility] | [address] | [place] [address] | | | SERVICES, CORE | [address] | | | + + + + + CAPILLARY BLOOD GLUCOSE (NO CHG), POC (12/10/2012 9:18 PM PDT) + +---------+ + + + | Component | Value | Ref Range | Performed | Pathologist | | | | | At | Signature | + +---------+ + + + | BLOOD | 181 (H) | 60 - 99 mg/dL | [...] + + + + | [facility] | [address] | [place], [place] | | | [facility] | [address] | [address] | | | TESTS | | | | + + + + + CAPILLARY BLOOD GLUCOSE (NO CHG), POC (12/10/2012 8:21 PM PDT) + +---------+ + + + | Component | Value | Ref Range | Performed | Pathologist | | | | | At | Signature | + +---------+ + + + | BLOOD | 139 (H) | 60 - 99 mg/dL | [...] + | [facility] | [address] | [place], [place] | | | [facility] | [address] | [address] | | | TESTS | | | | + + + + + HEPARIN, EITHER STANDARD / LMW, BLOOD (12/10/2012 8:00 PM PDT) + +-------+ + + + | Component | Value | Ref Range | Performed | Pathologist | | | | | At | Signature | + +-------+ + + + | HEPARIN, | <0.10 | U/mL | [facility] | | | STD LMW | | | LABORATORY | | | | | | SERVICES, | | | | | | CORE | | + +-------+ + + + + + | Specimen | + + | Blood - Blood | + + + + + | Narrative | Performed At | + + + | Heparin, Either STD/LMW - Therapeutic Ranges: Heparin, | [facility] | | Unfractionated: 0.35 - 0.70 U/mL Enoxaparin, LMWH: 0.70 | LABORATORY | | - 1.20 U/mL Dalteparin, LMWH: 0.70 - 1.20 U/mL | SERVICES, CORE | | Tinzaparin, LMWH: Therapeutic range not established. | | | Preliminary studies suggest range | | | similar to dalteparin. Clinical | | | correlation required. | | | Heparin levels may be unreliable for: | | | Total bilirubin >6.6mg/dL | | | Triglycerides >360 mg/dL | | | or Moderate to Gross Hemolysis | | + + + + + + + + | Performing | Address | City/State/Zipcode | Phone Number | | Organization | | | | + + + + + | [facility] | [address] | [place] [address] | | | SERVICES, CORE | [address] | | | + + + + + MAGNESIUM, PLASMA (12/10/2012 8:00 PM PDT) + +---------+ + + + | Component | Value | Ref Range | Performed | Pathologist | | | | | At | Signature | + +---------+ + + + | MAGNESIUM,P | 2.7 (H) | 1.8 - 2.5 mg/dL | [facility] | | | LASMA | | | [...] | + + + + + | [facility] | [address] | [place] [address] | | | SERVICES, CORE | [address] | | | + + + + + BLOOD GASES, ARTERIAL - LAB (12/10/2012 8:00 PM PDT) + + + + + + | Component | Value | Ref Range | Performed | Pathologist | | | | | At | Signature | + + + + + + | PAT TEMP | 36.4 | Degree C | [facility] | | | ARTERIAL | | | LABORATORY | | | | | | SERVICES, | | | | | | CORE | | + + + + + + | FIO2 | 40 | | [facility] | | | ARTERIAL | | | LABORATORY | | | | | | SERVICES, | | | | | | CORE | | + + + + + + | PH ARTERIAL | 7.43 | 7.37 - 7.44 | [facility] | | | | | | LABORATORY | | | | | | SERVICES, | | | | | | CORE | | + + + + + + | PCO2 | 38 | 32 - 43 mmHg | [facility] | | | ARTERIAL | | | LABORATORY | | | | | | SERVICES, | | | | | | CORE | | + + + + + + | PO2 | 149 (H) | 72 - 104 mmHg | [facility] | | | ARTERIAL | | | LABORATORY | | | | | | SERVICES, | | | | | | CORE | | + + + + + + | HCO3 | 24 | 21 - 28 mmol/L | [facility] | | | ARTERIAL | | | LABORATORY | | | | | | SERVICES, | | | | | | CORE | | + + + + + + | TOTAL CO2 | 26 | 22 - 28 mmol/L | [facility] | | | ARTERIAL | | | LABORATORY | | | | | | SERVICES, | | | | | | CORE | | + + + + + + | BASE EXCESS | 0.7 | | [facility] | | | ARTERIAL | | | LABORATORY | | | | | | SERVICES, | | | | | | CORE | | + + + + + + | O2 SAT, | 99.2 (H) | 92.0 - 98.0 | [facility] | | | ARTERIAL | | | LABORATORY | | | [...] + | [facility] | [address] | [place] [address] | | | SERVICES, CORE | [address] | | | + + + + + CALCIUM, IONIZED, WHOLE BLOOD (12/10/2012 8:00 PM PDT) + + + + + + | Component | Value | Ref Range | Performed | Pathologist | | | | | At | Signature | + + + + + + | BERTA ICA, | 1.13 (L) | 1.14 - 1.32 | [facility] | | | WHOLE BLD | | mmol/L | LABORATORY | | | | | | SERVICES, | | | | | | CORE | | + + + + + + | PH, WHOLE | 7.43 | | [facility] | | | BLOOD | | | LABORATORY | | | | | | SERVICES, | | | | | | CORE | | + + + + + + | ICA, | 1.14 | 1.14 - 1.28 | [facility] | | | CORRECTED | | mmol/L | LABORATORY | | | TO PH 7.4 | | | SERVICES, | | | | | | CORE | | + + + + + + + + | Specimen | + + | Blood - Blood | + + + + + + + | Performing | Address | City/State/Zipcode | Phone Number | | Organization | | | | + + + + + | [facility] | [address] | [place] [address] | | | SERVICES, CORE | [address] | | | + + + + + RENAL FUNCTION SET (NA,K,CL,CO2,BUN,CREAT,GLUC,CA,PHOS,ALB ) (12/10/2012 8:00 PM PDT) + + + + + + | Component | Value | Ref Range | Performed | Pathologist | | | | | At | Signature | + + + + + + | GLUCOSE, | 137 (H) | 60 - 99 mg/dL | [facility] | | | PLASMA | | | LABORATORY | | | (LAB) | | | SERVICES, | | | | | | CORE | | + + + + + + | BUN, PLASMA | 122 (H) | 6 - 20 mg/dL | [facility] | | | (LAB) | | | LABORATORY | | | | | | SERVICES, | | | | | | CORE | | + + + + + + | CREATININE | 6.40 (H) | 0.70 - 1.30 | [facility] | | | PLASMA | | mg/dL | LABORATORY | | | (LAB) | | | SERVICES, | | | | | | CORE | | + + + + + + | SODIUM, | 149 (H) | 136 - 145 | [facility] | [...] + + + + | CHLORIDE, | 109 (H) | 97 - 108 mmol/L | [facility] | | | PLASMA | | | LABORATORY | | | (LAB) | | | SERVICES, | | | | | | CORE | | + + + + + + | TOTAL CO2, | 25 | 21 - 32 mmol/L | [facility] | | | PLASMA | | | LABORATORY | | | (LAB) | | | SERVICES, | | | | | | CORE | | + + + + + + | CALCIUM, | 8.4 (L) | 8.6 - 10.2 | [facility] | | | PLASMA | | mg/dL | LABORATORY | | | (LAB) | | | SERVICES, | | | | | | CORE | | + + + + + + | ALBUMIN, | 2.2 (L) | 3.5 - 4.7 g/dL | [facility] | | | PLASMA | | | LABORATORY | | | (LAB) | | | SERVICES, | | | | | | CORE | | + + + + + + | PHOSPHORUS, | 8.5 (H) | 2.4 - 4.7 mg/dL | [facility] | | | PLASMA [...] + + + | ANION GAP | 15 (H) | 4 - 11 mmol/L | [facility] | | | | | | LABORATORY | | | | | | SERVICES, | | | | | | CORE | | + + + + + + | ANION | 19 (H) | 4 - 11 mmol/L | [...] + | [facility] | [address] | [place] [address] | | | SERVICES, TOI | [address] | | | + + + + + CAPILLARY BLOOD GLUCOSE (NO CHG), POC (12/10/2012 5:50 PM PDT) + +---------+ + + + | Component | Value | Ref Range | Performed | Pathologist | | | | | At | Signature | + +---------+ + + + | BLOOD | 111 (H) | 60 - 99 mg/dL | [...] + | [facility] | [address] | [place], [place] | | | [facility] | [address] | [address] | | | TESTS | | | | + + + + + X-RAY PORTABLE CHEST 1 VIEW (12/10/2012 5:27 PM PDT) + + + + + + | Component | Value | Ref Range | Performed | Pathologist | | | | | At | Signature | + + + + + + | X-RAY | STUDY:DC CHEST 1 VIEW | | | | | PORTABLE | 12/10/12 17:27:00 | | | | | CHEST 1 | COMPARISON:12/10/12 | | | | | VIEW | INDICATION: New dialysis | | | | | | catheter FINDINGS:Left | | | | | | IJ dual lumen catheter | | | | | | tip overlies the | | | | | | brachiocephalicconfluenc | | | | | | e. Left chest tube, ET | | | | | | tube, gastric tube and | | | | | | sternal wiresare | | | | | | unchanged and PA | | | | | | catheter has been | | | | | | removed. The | | | | | | cardiacsilhouette is | | | | | | enlarged as before and | | | | | | dense retrocardiac | | | | | | atelectasisand small | | | | | | left effusion are | | | | | | unchanged. There is no | | | | | | pneumothorax. | | | | | | IMPRESSION: Left IJ | | | | | | dialysis catheter tip | | | | | | projects at the | | | | | | brachiocephalicconfluenc | | | | | | e. No pneumothorax or | | | | | | acute abnormality. | | | | | | Unchanged dense | | | | | | retrocardiac | | | | | | consolidation and small | | | | | | left | | | | | | effusion.Cardiomegaly. | | | | | | Attending | | | | | | Radiologists: PRECIOUS | | | | | | TIGRE HOLTuthor: PRECIOUS | | | | | | MD JONATHON I have | | | | | | personally viewed this | | | | | | procedure/exam, reviewed | | | | | | this report,and made | | | | | | changes to it where | | | | | | appropriate. | | | | | | Final/Electronically | | | | | | signed / PRECIOUS HOLT | | | | | | 12/10/2012 18:26 PM | | | | + + [...] | | | + +---------+ + + RENAL FUNCTION SET (NA,K,CL,CO2,BUN,CREAT,GLUC,CA,PHOS,ALB ) (12/10/2012 5:21 PM PDT) + + + + + + | Component | Value | Ref Range | Performed | Pathologist | | | | | At | Signature | + + + + + + | GLUCOSE, | 103 (H) | 60 - 99 mg/dL | [facility] | | | PLASMA | | | LABORATORY | | | (LAB) | | | SERVICES, | | | | | | CORE | | + + + + + + | BUN, PLASMA | 136 (H) | 6 - 20 mg/dL | [facility] | | | (LAB) | | | LABORATORY | | | | | | SERVICES, | | | | | | CORE | | + + + + + + | CREATININE | 6.95 (H) | 0.70 - 1.30 | [facility] | | | PLASMA | | mg/dL | LABORATORY | | | (LAB) | | | SERVICES, | | | | | | CORE | | + + + + + + | SODIUM, | 151 (H) | 136 - 145 | [facility] | [...] + + + + | CHLORIDE, | 109 (H) | 97 - 108 mmol/L | [facility] | | | PLASMA | | | LABORATORY | | | (LAB) | | | SERVICES, | | | | | | CORE | | + + + + + + | TOTAL CO2, | 25 | 21 - 32 mmol/L | [facility] | | | PLASMA | | | LABORATORY | | | (LAB) | | | SERVICES, | | | | | | CORE | | + + + + + + | CALCIUM, | 8.4 (L) | 8.6 - 10.2 | [facility] | | | PLASMA | | mg/dL | LABORATORY | | | (LAB) | | | SERVICES, | | | | | | CORE | | + + + + + + | ALBUMIN, | 2.1 (L) | 3.5 - 4.7 g/dL | [facility] | | | PLASMA | | | LABORATORY | | | (LAB) | | | SERVICES, | | | | | | CORE | | + + + + + + | PHOSPHORUS, | 9.3 (H) | 2.4 - 4.7 mg/dL | [facility] | | | PLASMA [...] + + + | ANION GAP | 17 (H) | 4 - 11 mmol/L | [facility] | | | | | | LABORATORY | | | | | | SERVICES, | | | | | | CORE | | + + + + + + | ANION | 21 (H) | 4 - 11 mmol/L | [...] | + + + + + | [facility] | [address] | [place] [address] | | | SERVICES, CORE | [address] | | | + + + + + CAPILLARY BLOOD GLUCOSE (NO CHG), POC (12/10/2012 4:14 PM PDT) + +-------+ + + + | Component | Value | Ref Range | Performed | Pathologist | | | | | At | Signature | + +-------+ + + + | BLOOD | 75 | 60 - 99 mg/dL | [facility] - | | | GLUCOSE, | | | [facility] | | | POC | | | [facility] | | | | | | OF CARE | | | | | | TESTS | | + +-------+ + + + + + | Specimen | + + | | + + + + + + + | Performing | Address | City/State/Zipcode | Phone Number | | Organization | | | | + + + + + | [facility] | [address] | [place], [place] | | | [facility] | [address] | [address] | | | TESTS | | | | + + + + + IP CONSULT TO PICC TEAM (12/10/2012 3:57 PM PDT) + + + | Narrative | Performed At | + + + | Anais Vieyra 12/10/2012 3:57 PM PICC INSERTION | | | DOCUMENTATION NOTE Today | | | | | | s Date: 12/10/2012 Start Time: 1545 Patient Location (Unit/Room #) | | | 8 [facility] room 7 Diagnosis: [id number] Coronary artery disease Indications: | | | (Select all that apply) Difficult Access, Hemodynamic monitoring, | | | Blood Draws and Other: Electrolyte replacement Allergies: No Known | | | Allergies Start time: At 1400, prior to the beginning of the | | | procedure the team paused to verify the patient | | | | | | s identity, the procedure to be performed (in accordance with the | | | consent.) and the correct side/site. The Patient was positioned | | | appropriately. Any safety precautions were addressed. Placed | | | by: Anais Vieira RN (Dillard) IVT and Zaki De La Paz RN, IVT | | | were the practitioners placing the line. Consent: A | | | discussion of the risk, benefits, and alternatives was had with the | | | legal guardian prior to the procedure. A signed consent form for | | | this procedure was obtained and placed in the patient | | | | | | s medical record. Procedure Details: Practitioner thoroughly | | | washed their hands prior to the beginning of the procedure and | | | donned sterile gloves. Mask and hair nets were worn by all members | | | in the room where the procedure was performed. The procedure was | | | performed using maximum sterile barrier precautions. An ultrasound | | | was used for pre-procedure identification of the patient | | | | | | s vascular anatomy. Venipuncture was performed under direct | | | ultrasound guidance. The area was prepped and draped in the | | | procedural sterile fashion and the sterile field was maintained at | | | all times. Insertion site was prepped with Chloraprep. Anesthesia | | | was obtained with 3ml of buffered 1% Lidocaine. The patient was | | | sedated for this procedure. Sedation provided by: Floor Nurse per | | | vented patient PICC Catheter Insertion: The Left Cephalic | | | vessel was cannulated with dark red, non-pulsatile blood return. A | | | 5 Micronesian Triple lumen Power PICC SOLO catheter was placed using the | | | modified Seldinger technique on the third attempt. At the time of | | | insertion, vessel size was appropriate for the catheter size. | | | PICC Catheter: A 55cm catheter was used for placement. The PICC | | | catheter was trimmed 0cm, remaining catheter length 55 cm. PICC | | | Catheter Lot Number [id number]; There was good blood return from all | | | ports of the catheter. Each lumen of the catheter was flushed with | | | 20ml of Normal Saline. PICC catheter secured using a catheter | | | securement device. New end caps placed on catheter after insertion | | | and a sterile dressing was applied prior to the removal of the | | | sterile field. Complications: Left Brachial vein attempted; | | | accessed twice with no difficulty and excellent blood return, but | | | was unable to thread the guidewire. Cephalic vein than attempted | | | with no difficulty. Please note patient has very difficult deep | | | veins, line placed close to the AC due to limited ability to see | | | vessel past the AC. Conclusion/findings: PICC catheter placed | | | utilizing a TLS (Tip Locating System) and TPS (Tip positioning | | | System). The patient tolerated procedure well. A chest film was | | | ordered to verify catheter tip placement. Estimated Blood | | | Loss: less than 10ml Adjustments made after chest film obtained: | | | None External measurement of catheter exposed: 0cm PICC Catheter | | | tip located in at the Mid SVC as verified by radiograph. | | | Placed by: Anais Vieira RN (Dillard) IVT Assisted by: Zaki | | | Brain BRUNER IVT | | + + + + + | Procedure Note | + + | Anais Vieyra RN - 12/10/2012 3:42 PM PDT PICC INSERTION DOCUMENTATION NOTEToday | | | | s Date: 12/10/2012Start Time: 1545Patient Location (Unit/Room #) 8 [facility] room 7Diagnosis: | | [id number] Coronary artery diseaseIndications: (Select all that apply) Difficult Access, | | Hemodynamic monitoring, Blood Draws and Other: Electrolyte replacement Allergies: No | | Known Allergies Start time: At 1400, prior to the beginning of the procedure the team | | paused to verify the patient | | | | s identity, the procedure to be performed (in accordance with the consent.) and the | | correct side/site. The Patient was positioned appropriately. Any safety precautions | | were addressed. Placed by: Anais Vieira RN (Dillard) IVT and Zaki De La Paz RN | | IVT were the practitioners placing the line. Consent: A discussion of the risk, | | benefits, and alternatives was had with the legal guardian prior to the procedure. A | | signed consent form for this procedure was obtained and placed in the patient | | | | s medical record. Procedure Details: Practitioner thoroughly washed their hands prior | | to the beginning of the procedure and donned sterile gloves. Mask and hair nets were | | worn by all members in the room where the procedure was performed. The procedure was | | performed using maximum sterile barrier precautions. An ultrasound was used for | | pre-procedure identification of the patient | | | | s vascular anatomy. Venipuncture was performed under direct ultrasound guidance. The | | area was prepped and draped in the procedural sterile fashion and the sterile field was | | maintained at all times. Insertion site was prepped with Chloraprep. Anesthesia was | | obtained with 3ml of buffered 1% Lidocaine. The patient was sedated for this procedure. | | Sedation provided by: Floor Nurse per vented patient PICC Catheter Insertion: The | | Left Cephalic vessel was cannulated with dark red, non-pulsatile blood return. A 5 | | Micronesian Triple lumen Power PICC SOLO catheter was placed using the modified Seldinger | | technique on the third attempt. At the time of insertion, vessel size was appropriate | | for the catheter size. PICC Catheter: A 55cm catheter was used for placement. The | | PICC catheter was trimmed 0cm, remaining catheter length 55 cm. PICC Catheter Lot | | Number [id number]; There was good blood return from all ports of the catheter. Each lumen | | of the catheter was flushed with 20ml of Normal Saline. PICC catheter secured using a | | catheter securement device. New end caps placed on catheter after insertion and a | | sterile dressing was applied prior to the removal of the sterile field. Complications: | | Left Brachial vein attempted; accessed twice with no difficulty and excellent blood | | return, but was unable to thread the guidewire. Cephalic vein than attempted with no | | difficulty. Please note patient has very difficult deep veins, line placed close to the | | AC due to limited ability to see vessel past the AC. Conclusion/findings: PICC | | catheter placed utilizing a TLS (Tip Locating System) and TPS (Tip positioning System). | | The patient tolerated procedure well. A chest film was ordered to verify catheter tip | | placement. Estimated Blood Loss: less than 10mlAdjustments made after chest film | | obtained: NoneExternal measurement of catheter exposed: 0cmPICC Catheter tip located in | | at the Mid SVC as verified by radiograph. Placed by: Anais Vieira RN (Dillard) | | IVTAssisted by: Zaki De La Paz RN IVT | + + X-RAY PORTABLE CHEST PICC LINE CHECK (12/10/2012 2:21 PM PDT) + + + + + + | Component | Value | Ref Range | Performed | Pathologist | | | | | At | Signature | + + + + + + | XRAY | STUDY:DC CHEST PICC LINE | | | | | PORTABLE | CHECK 12/10/12 14:21:00 | | | | | CHEST PICC | COMPARISON:Earlier | | | | | LINE CHECK | today INDICATION: Pic | | | | | | line FINDINGS:The left | | | | | | arm PICC line extends at | | | | | | least to the level of | | | | | | the mid SVC.At this | | | | | | point it overlaps | | | | | | perfectly with the PA | | | | | | catheter and | | | | | | becomesobscured. PA | | | | | | catheter terminates in | | | | | | the pulmonary outflow. | | | | | | The ETtube has been | | | | | | pulled back with the tip | | | | | | now 7 cm above the | | | | | | john.Sternal wires are | | | | | | unchanged, | | | | | | esophagogastric tube | | | | | | terminates in | | | | | | thestomach. Cardiomegaly | | | | | | and dense retrocardiac | | | | | | atelectasis are | | | | | | unchanged. Rightlower | | | | | | lobe atelectasis has | | | | | | improved. There is no | | | | | | pneumothorax.Probable | | | | | | small left effusion as | | | | | | before. IMPRESSION: Left | | | | | | arm PICC line is | | | | | | visible to the level of | | | | | | the mid SVC, howeverits | | | | | | tip is not visible | | | | | | because the distal PICC | | | | | | is obscured by the | | | | | | PAcatheter. ET tube may | | | | | | have been pulled back | | | | | | slightly with the tip | | | | | | now measuring7 cm above | | | | | | the john, though the | | | | | | change in appearance | | | | | | could be dueto | | | | | | positioning. Unchanged | | | | | | dense retrocardiac | | | | | | consolidation and | | | | | | probable small | | | | | | lefteffusion. Improved | | | | | | right lower lobe | | | | | | atelectasis. | | | | | | Attending Radiologists: | | | | | | PRECIOUS JONATHON, MDAuthor: | | | | | | PRECIOUS HOLT MD I have | | | | | | personally viewed this | | | | | | procedure/exam, reviewed | | | | | | this report,and made | | | | | | changes to it where | | | | | | appropriate. | | | | | | Final/Electronically | | | | | | signed / PRECIOUS HOLT | | | | | | 12/10/2012 14:48 PM | | | | + + [...] | | | + +---------+ + + CAPILLARY BLOOD GLUCOSE (NO CHG), POC (12/10/2012 1:02 PM PDT) + +---------+ + + + | Component | Value | Ref Range | Performed | Pathologist | | | | | At | Signature | + +---------+ + + + | BLOOD | 176 (H) | 60 - 99 mg/dL | [...] | [facility] | [address] | [place], [place] | | | [facility] | [facility] | [address] | | | TESTS | | | | + + + + + CAPILLARY BLOOD GLUCOSE (NO CHG), POC (12/10/2012 11:23 AM PDT) + +---------+ + + + | Component | Value | Ref Range | Performed | Pathologist | | | | | At | Signature | + +---------+ + + + | BLOOD | 148 (H) | 60 - 99 mg/dL | [facility] - | | | GLUCOSE, | | [...] | [facility] | [address] | [place], [place] | | | [facility] | [address] | [address] | | | TESTS | | | | + + + + + AMMONIA, PLASMA (12/10/2012 11:11 AM PDT) + +--------+ + + + | Component | Value | Ref Range | Performed | Pathologist | | | | | At | Signature | + +--------+ + + + | AMMONIA | 43 (H) | 11 - 35 umol/L | [facility] | | | (LAB) | [...] | + + + + + | [facility] | [address] | [place] [address] | | | TOI MARIN | [address] | | | + + + + + CAPILLARY BLOOD GLUCOSE (NO CHG), POC (12/10/2012 9:36 AM PDT) + +---------+ + + + | [...] + + + + | [facility] | [address] | [place], [place] | | | [facility] | [address] | [address] | | | TESTS | | | | + + + + + HEPARIN, EITHER STANDARD / LMW, BLOOD (12/10/2012 9:22 AM PDT) + +-------+ + + + | Component | Value | Ref Range | Performed | Pathologist | | | | | At | Signature | + +-------+ + + + | HEPARIN, | <0.10 | U/mL | [facility] | | | STD LMW | | | LABORATORY | | | | | | SERVICES, | | | | | | CORE | | + +-------+ + + + + + | Specimen | + + | Blood - Blood | + + + + + | Narrative | Performed At | + + + | Heparin, Either STD/LMW - Therapeutic Ranges: Heparin, | [facility] | | Unfractionated: 0.35 - 0.70 U/mL Enoxaparin, LMWH: 0.70 | LABORATORY | | - 1.20 U/mL Dalteparin, LMWH: 0.70 - 1.20 U/mL | SERVICES, CORE | | Tinzaparin, LMWH: Therapeutic range not established. | | | Preliminary studies suggest range | | | similar to dalteparin. Clinical | | | correlation required. | | | Heparin levels may be unreliable for: | | | Total bilirubin >6.6mg/dL | | | Triglycerides >360 mg/dL | | | or Moderate to Gross Hemolysis | | + + + + + + + + | Performing | Address | City/State/Zipcode | Phone Number | | Organization | | | | + + + + + | [facility] | [address] | [place] [address] | | | SERVICES, CORE | [address] | | | + + + + + CAPILLARY BLOOD GLUCOSE (NO CHG), POC (12/10/2012 7:04 AM PDT) + +---------+ + + + | Component | Value | Ref Range | Performed | Pathologist | | | | | At | Signature | + +---------+ + + + | BLOOD | 131 (H) | 60 - 99 mg/dL | [facility] - | | | GLUCOSE, | | [...] + | [facility] | [address] | [place], [place] | | | [facility] | [address] | [address] | | | TESTS | | | | + + + + + CAPILLARY BLOOD GLUCOSE (NO CHG), POC (12/10/2012 6:03 AM PDT) + +---------+ + + + | Component | Value | Ref Range | Performed | Pathologist | | | | | At | Signature | + +---------+ + + + | BLOOD | 143 (H) | 60 - 99 mg/dL | [...] + + + + | [facility] | [address] | [place], [place] | | | [facility] | [address] | [address] | | | TESTS | | | | + + + + + X-RAY PORTABLE CHEST 1 VIEW (12/10/2012 5:41 AM PDT) + + + + + + | Component | Value | Ref Range | Performed | Pathologist | | | | | At | Signature | + + + + + + | X-RAY | STUDY: DC CHEST 1 VIEW | | | | | PORTABLE | 12/10/12 05:41:00 | | | | | CHEST 1 | HISTORY: Evaluate | | | | | VIEW | retrocardiac opacity. | | | | | | COMPARISON: 12/09/12, | | | | | | 12/07/12, 12/01/12 | | | | | | FINDINGS: The | | | | | | endotracheal tube tip | | | | | | terminates 5 cm above | | | | | | the john. The leftIJ | | | | | | pulmonary catheter and | | | | | | enteric tube are | | | | | | unchanged in | | | | | | location.Dense | | | | | | retrocardiac opacity is | | | | | | unchanged, and there is | | | | | | new mild rightbasilar | | | | | | atelectasis. | | | | | | Persistent small left | | | | | | pleural effusion. | | | | | | Mediansternotomy wires | | | | | | are intact; otherwise | | | | | | the osseous structures | | | | | | andsoft tissues are | | | | | | unremarkable. | | | | | | IMPRESSION: No change in | | | | | | dense retrocardiac | | | | | | opacity over many days. | | | | | | This isthought to | | | | | | represent atelectasis | | | | | | but a superimposed | | | | | | pneumonia wouldbe | | | | | | indistinguishable | | | | | | radiographically. New | | | | | | right lower lobe ground | | | | | | glass opacity consistent | | | | | | with atelectasisversus | | | | | | aspiration. Attending | | | | | | Radiologists: PRECIOUS | | | | | | TIGRE HOLTuthor: SPENCER | | | | | | MD ZEKE I have | | | | | | personally viewed this | | | | | | procedure/exam, reviewed | | | | | | this report,and made | | | | | | changes to it where | | | | | | appropriate. | | | | | | Final/Electronically | | | | | | signed / PRECIOUS HOLT | | | | | | 12/10/2012 10:53 AM | | | | + + [...] | | | + +---------+ + + CAPILLARY BLOOD GLUCOSE (NO CHG), POC (12/10/2012 4:36 AM PDT) + +---------+ + + + | Component | Value | Ref Range | Performed | Pathologist | | | | | At | Signature | + +---------+ + + + | BLOOD | 136 (H) | 60 - 99 mg/dL | [...] + + + + | [facility] | [address] | [place], [place] | | | [facility] | [address] | [address] | | | TESTS | | | | + + + + + CAPILLARY BLOOD GLUCOSE (NO CHG), POC (12/10/2012 3:10 AM PDT) + +---------+ + + + | [...] + | [facility] | [address] | [place], [place] | | | [facility] | [address] | [address] | | | TESTS | | | | + + + + + CAPILLARY BLOOD GLUCOSE (NO CHG), POC (12/10/2012 2:10 AM PDT) + +---------+ + + + | Component | Value | Ref Range | Performed | Pathologist | | | | | At | Signature | + +---------+ + + + | BLOOD | 136 (H) | 60 - 99 mg/dL | [...] + + + + | [facility] | [address] | [place], [place] | | | [facility] | [facility] | [address] | | | TESTS | | | | + + + + + MANUAL DIFFERENTIAL (12/10/2012 2:05 AM PDT) + + + + + + | Component | Value | Ref Range | Performed | Pathologist | | | | | At | Signature | + + + + + + | NEUTROPHIL% | 84 (H) | 50 - 70 % | [facility] | | | | | | LABORATORY | | | | | | SERVICES, | | | | | | CORE | | + + + + + + | LYMPHOCYTE% | 2 (L) | 18 - 42 % | [facility] | | | | | | LABORATORY | | | | | | SERVICES, | | | | | | CORE | | + + + + + + | MONOCYTE % | 7 | 2 - 8 % | [facility] | | | | | | LABORATORY | | | | | | SERVICES, | | | | | | CORE | | + + + + + + | EOSINOPHIL | 3 | 1 - 3 % | [facility] | | | % | | | LABORATORY | | | | | | SERVICES, | | | | | | CORE | | + + + + + + | BASOPHIL % | 1 | 0 - 2 % | [facility] | | | | | | LABORATORY | | | | | | SERVICES, | | | | | | CORE | | + + + + + + | BANDS % | 3 | 0 - 10 % | [facility] | | | | | | LABORATORY | | | | | | SERVICES, | | | | | | CORE | | + + + + + + | METAMYELO% | 0 | <=0 % | [facility] | | | | | | LABORATORY | | | | | | SERVICES, | | | | | | CORE | | + + + + + + | MYELOCYTES% | 0 | <=0 % | [facility] | | | | | | LABORATORY | | | | | | SERVICES, | | | | | | CORE | | + + + + + + | PROMYELO% | 0 | <=0 % | [facility] | | | | | | LABORATORY | | | | | | SERVICES, | | | | | | CORE | | + + + + + + | ATYPICAL | 0 | <=0 | [facility] | | | CELL% | | | LABORATORY | | | | | | SERVICES, | | | | | | CORE | | + + + + + + | NEUTROPHIL | 14.4 (H) | 1.8 - 7.7 K/cu | [facility] | | | # | | mm | LABORATORY | | | | | | SERVICES, | | | | | | CORE | | + + + + + + | LYMPHOCYTE# | 0.3 (L) | 1.0 - 4.8 K/cu | [facility] | | | | | mm | LABORATORY | | | | | | SERVICES, | | | | | | CORE | | + + + + + + | MONOCYTE # | 1.2 (H) | 0.0 - 0.8 K/cu | [facility] | | | | | mm | LABORATORY | | | | | | SERVICES, | | | | | | CORE | | + + + + + + | EOSINOPHIL | 0.5 | 0.0 - 0.5 K/cu | [facility] | | | # | | mm | LABORATORY | | | | | | SERVICES, | | | | | | CORE | | + + + + + + | BASOPHIL # | 0.2 (H) | 0.0 - 0.1 K/cu | [facility] | | | | | mm | LABORATORY | | | | | | SERVICES, | | | | | | CORE | | + + + + + + | BANDS # | 0.5 | 0.0 - 1.1 K/cu | [facility] | | | | | mm | LABORATORY | | | | | | SERVICES, | | | | | | CORE | | + + + + + + | METAMYELO# | 0.0 | K/cu mm | [facility] | | | | | | LABORATORY | | | | | | SERVICES, | | | | | | CORE | | + + + + + + | MYELOCYTES# | 0.0 | K/cu mm | [facility] | | | | | | LABORATORY | | | | | | SERVICES, | | | | | | CORE | | + + + + + + | PROMYELO # | 0.0 | K/cu mm | [facility] | | | | | | LABORATORY | | | | | | SERVICES, | | | | | | CORE | | + + + + + + | ATYPICAL | 0.0 | K/cu mm | [facility] | | | CELLS # | | | LABORATORY | | | | | | SERVICES, | | | | | | CORE | | + + + + + + | ANISOCYTOSI | 2+ (25-50cells/HPF) | (none) | [facility] | | | S | | | LABORATORY | | | | | | SERVICES, | | | | | | CORE | | + + + + + + | MACROCYTOSI | 2+ (25-50cells/HPF) | (none) | [facility] | | | S | | | LABORATORY | | | | | | SERVICES, | | | | | | CORE | | + + + + + + | POLYCHROMAS | 1+ (<1-2cells/HPF) | (none) | [facility] | | | IA | | | LABORATORY | | | [...] + | [facility] | [address] | [place] [address] | | | SERVICES, TOI | [address] | | | + + + + + CBC AND AUTO DIFF (12/10/2012 2:05 AM PDT) + + + + + + | Component | Value | Ref Range | Performed | Pathologist | | | | | At | Signature | + + + + + + | WBC COUNT | 17.2 (H) | 4.4 - 11.0 K/cu | [facility] | | | | | mm | LABORATORY | | | | | | SERVICES, | | | | | | CORE | | + + + + + + | RED CELL | 2.64 (L) | 4.50 - 5.90 | [facility] | | | COUNT | | M/cu mm | LABORATORY | | | | | | SERVICES, | | | | | | CORE | | + + + + + + | HEMOGLOBIN | 8.5 (L) | 13.5 - 17.5 | [facility] | | | | | g/dL | LABORATORY | | | | | | SERVICES, | | | | | | CORE | | + + + + + + | HEMATOCRIT | 24.8 (L) | 41.0 - 53.0 % | [facility] | | | | | | LABORATORY | | | | | | SERVICES, | | | | | | CORE | | + + + + + + | MCV | 94.0 | 80.0 - 96.0 fL | [facility] | | | | | | LABORATORY | | | | | | SERVICES, | | | | | | CORE | | + + + + + + | MCHC | 34.1 | 33.4 - 35.5 | [facility] | | | | | g/dL | LABORATORY | | | | | | SERVICES, | | | | | | CORE | | + + + + + + | RDW | 16.1 (H) | 11.5 - 15.0 % | [facility] | | | | | | LABORATORY | | | | | | SERVICES, | | | | | | CORE | | + + + + + + | PLATELET | 190 | 150 - 400 K/cu | [facility] [...] + | [facility] | [address] | [place] [address] | | | SERVICES, CORE | [address] | | | + + + + + BLOOD GASES, ARTERIAL - LAB (12/10/2012 2:05 AM PDT) + + + + + + | Component | Value | Ref Range | Performed | Pathologist | | | | | At | Signature | + + + + + + | PAT TEMP | 36.9 | Degree C | [facility] | | | ARTERIAL | | | LABORATORY | | | | | | SERVICES, | | | | | | CORE | | + + + + + + | FIO2 | .40 | | [facility] | | | ARTERIAL | | | LABORATORY | | | | | | SERVICES, | | | | | | CORE | | + + + + + + | PH ARTERIAL | 7.43 | 7.37 - 7.44 | [facility] | | | | | | LABORATORY | | | | | | SERVICES, | | | | | | CORE | | + + + + + + | PCO2 | 38 | 32 - 43 mmHg | [facility] | | | ARTERIAL | | | LABORATORY | | | | | | SERVICES, | | | | | | CORE | | + + + + + + | PO2 | 120 (H) | 72 - 104 mmHg | [facility] | | | ARTERIAL | | | LABORATORY | | | | | | SERVICES, | | | | | | CORE | | + + + + + + | HCO3 | 24 | 21 - 28 mmol/L | [facility] | | | ARTERIAL | | | LABORATORY | | | | | | SERVICES, | | | | | | CORE | | + + + + + + | TOTAL CO2 | 26 | 22 - 28 mmol/L | [facility] | | | ARTERIAL | | | LABORATORY | | | | | | SERVICES, | | | | | | CORE | | + + + + + + | BASE EXCESS | 0.5 | | [facility] | | | ARTERIAL | | | LABORATORY | | | | | | SERVICES, | | | | | | CORE | | + + + + + + | O2 SAT, | 98.7 (H) | 92.0 - 98.0 | [facility] | | | ARTERIAL | | | LABORATORY | | | [...] + | [facility] | [address] | [place] [address] | | | SERVICES, CORE | [address] | | | + + + + + LIVER SET (AST,ALT,BILI TOTAL,BILI DIRECT,ALK PHOS,ALB,PROT TOTAL) (12/10/2012 2:05 AM PDT ) + + + + + + | Component | Value | Ref Range | Performed | Pathologist | | | | | At | Signature | + + + + + + | ALBUMIN, | 2.1 (L) | 3.5 - 4.7 g/dL | [facility] | | | PLASMA | | | LABORATORY | | | (LAB) | | | SERVICES, | | | | | | CORE | | + + + + + + | BILIRUBIN | 4.6 (H) | 0.3 - 1.2 mg/dL | [facility] | | | TOTAL | | | LABORATORY | | | | | | SERVICES, | | | | | | CORE | | + + + + + + | BILIRUBIN | 3.8 (H) | 0.0 - 0.3 mg/dL | [facility] | | | DIRECT | | | LABORATORY | | | | | | SERVICES, | | | | | | CORE | | + + + + + + | ALK PHOS | 172 (H) | 56 - 119 U/L | [facility] | | | | | | LABORATORY | | | | | | SERVICES, | | | | | | CORE | | + + + + + + | AST(SGOT) | 286 (H) | 15 - 41 U/L | [facility] | | | | | | LABORATORY | | | | | | SERVICES, | | | | | | CORE | | + + + + + + | ALT (SGPT) | 1,423 (H) | 12 - 60 U/L | [facility] | | | | | | LABORATORY | | | | | | SERVICES, | | | | | | CORE | | + + + + + + | TOTAL | 5.9 (L) | 6.1 - 7.9 g/dL | [facility] | | | PROTEIN, | | | LABORATORY | | | PLASMA | | | SERVICES, | | | (LAB) | | | CORE | | + + + + + + | AST CMNT | No Hemo | | [facility] | | | | | | LABORATORY | | | | | | SERVICES, | | | | | | CORE | | + + + + + + | BILI T CMNT | No Hemo | | [facility] | | | | | | LABORATORY | | | | | | SERVICES, | | | | | | CORE | | + + + + + + | BILI D CMNT | No Hemo | | [facility] [...] | + + + + + | [facility] | [address] | [place] [address] | | | SERVICES, CORE | [address] | | | + + + + + RENAL FUNCTION SET (NA,K,CL,CO2,BUN,CREAT,GLUC,CA,PHOS,ALB ) (12/10/2012 2:05 AM PDT) + + + + + + | Component | Value | Ref Range | Performed | Pathologist | | | | | At | Signature | + + + + + + | GLUCOSE, | 128 (H) | 60 - 99 mg/dL | [facility] | | | PLASMA | | | LABORATORY | | | (LAB) | | | SERVICES, | | | | | | CORE | | + + + + + + | BUN, PLASMA | 123 (H) | 6 - 20 mg/dL | [facility] | | | (LAB) | | | LABORATORY | | | | | | SERVICES, | | | | | | CORE | | + + + + + + | CREATININE | 6.81 (H) | 0.70 - 1.30 | [facility] | | | PLASMA | | mg/dL | LABORATORY | | | (LAB) | | | SERVICES, | | | | | | CORE | | + + + + + + | SODIUM, | 150 (H) | 136 - 145 | [facility] | | | PLASMA | | mmol/L | LABORATORY | | | (LAB) | | | SERVICES, | | | | | | CORE | | + + + + + + | POTASSIUM, | 4.0 | 3.4 - 5.0 | [facility] | | | PLASMA | | mmol/L | LABORATORY | | | (LAB) | | | SERVICES, | | | | | | CORE | | + + + + + + | CHLORIDE, | 110 (H) | 97 - 108 mmol/L | [facility] [...] + + + + | CALCIUM, | 8.0 (L) | 8.6 - 10.2 | [facility] | | | PLASMA | | mg/dL | LABORATORY | | | (LAB) | | | SERVICES, | | | | | | CORE | | + + + + + + | ALBUMIN, | 2.1 (L) | 3.5 - 4.7 g/dL | [facility] | | | PLASMA | | | LABORATORY | | | (LAB) | | | SERVICES, | | | | | | CORE | | + + + + + + | PHOSPHORUS, | 8.6 (H) | 2.4 - 4.7 mg/dL | [facility] | | | PLASMA [...] + + + | ANION GAP | 14 (H) | 4 - 11 mmol/L | [facility] | | | | | | LABORATORY | | | | | | SERVICES, | | | | | | CORE | | + + + + + + | ANION | 18 (H) | 4 - 11 mmol/L | [...] | + + + + + | [facility] | [address] | [place] [address] | | | SERVICES, CORE | [address] | | | + + + + + MAGNESIUM, PLASMA (12/10/2012 2:05 AM PDT) + +---------+ + + + | Component | Value | Ref Range | Performed | Pathologist | | | | | At | Signature | + +---------+ + + + | MAGNESIUM,P | 2.8 (H) | 1.8 - 2.5 mg/dL | [facility] [...] | + + + + + | [facility] | [address] | [place] [address] | | | [place] | [address] | | | + + + + + CAPILLARY BLOOD GLUCOSE (NO CHG), POC (12/10/2012 1:00 AM PDT) + +---------+ + + + | Component | Value | Ref Range | Performed | Pathologist | | | | | At | Signature | + +---------+ + + + | BLOOD | 136 (H) | 60 - 99 mg/dL | [facility] - | | | GLUCOSE, | | [...] | [facility] | [address] | [place], [place] | | | [facility] | [address] | [address] | | | TESTS | | | | + + + + + HEPARIN, EITHER STANDARD / LMW, BLOOD (12/10/2012 12:16 AM PDT) + +-------+ + + + | Component | Value | Ref Range | Performed | Pathologist | | | | | At | Signature | + +-------+ + + + | HEPARIN, | <0.10 | U/mL | [facility] | | | STD LMW | | | LABORATORY | | | | | | SERVICES, | | | | | | CORE | | + +-------+ + + + + + | Specimen | + + | Blood - Blood | + + + + + | Narrative | Performed At | + + + | Heparin, Either STD/LMW - Therapeutic Ranges: Heparin, | [facility] | | Unfractionated: 0.35 - 0.70 U/mL Enoxaparin, LMWH: 0.70 | LABORATORY | | - 1.20 U/mL Dalteparin, LMWH: 0.70 - 1.20 U/mL | SERVICES, CORE | | Tinzaparin, LMWH: Therapeutic range not established. | | | Preliminary studies suggest range | | | similar to dalteparin. Clinical | | | correlation required. | | | Heparin levels may be unreliable for: | | | Total bilirubin >6.6mg/dL | | | Triglycerides >360 mg/dL | | | or Moderate to Gross Hemolysis | | + + + + + + + + | Performing | Address | City/State/Zipcode | Phone Number | | Organization | | | | + + + + + | [facility] | [address] | [place] [address] | | | SERVICES, CORE | [address] | | | + + + + + CAPILLARY BLOOD GLUCOSE (NO CHG), POC (12/10/2012 12:02 AM PDT) + +---------+ + + + | Component | Value | Ref Range | Performed | Pathologist | | | | | At | Signature | + +---------+ + + + | BLOOD | 149 (H) | 60 - 99 mg/dL | [...] + + + + | [facility] | [address] | [place], [place] | | | [facility] | [address] | [address] | | | TESTS | | | | + + + + + CAPILLARY BLOOD GLUCOSE (NO CHG), POC (12/09/2012 11:00 PM PDT) + +---------+ + + + | Component | Value | Ref Range | Performed | Pathologist | | | | | At | Signature | + +---------+ + + + | BLOOD | 155 (H) | 60 - 99 mg/dL | [...] + + + + | [facility] | [address] | [place], [place] | | | [facility] | [address] | [address] | | | TESTS | | | | + + + + + CAPILLARY BLOOD GLUCOSE (NO CHG), POC (12/09/2012 9:45 PM PDT) + +---------+ + + + | Component | Value | Ref Range | Performed | Pathologist | | | | | At | Signature | + +---------+ + + + | BLOOD | 146 (H) | 60 - 99 [...] + | [facility] | [address] | [place], [place] | | | [facility] | [address] | [address] | | | TESTS | | | | + + + + + CAPILLARY BLOOD GLUCOSE (NO CHG), POC (12/09/2012 8:19 PM PDT) + +---------+ + + + | Component | Value | Ref Range | Performed | Pathologist | | | | | At | Signature | + +---------+ + + + | BLOOD | 134 (H) | 60 - 99 mg/dL | [...] + + + + | [facility] | [address] | [place], [place] | | | [facility] | [address] | [address] | | | TESTS | | | | + + + + + CAPILLARY BLOOD GLUCOSE (NO CHG), POC (12/09/2012 7:07 PM PDT) + +---------+ + + + | Component | Value | Ref Range | Performed | Pathologist | | | | | At | Signature | + +---------+ + + + | BLOOD | 133 (H) | 60 - 99 mg/dL | [...] + + + + | [facility] | [address] | [place], [place] | | | [facility] | [address] | [address] | | | TESTS | | | | + + + + + CAPILLARY BLOOD GLUCOSE (NO CHG), POC (12/09/2012 6:08 PM PDT) + +---------+ + + + | Component | Value | Ref Range | Performed | Pathologist | | | | | At | Signature | + +---------+ + + + | BLOOD | 136 (H) | 60 - 99 mg/dL | [...] + + + | [facility] | [address] | [place], [place] | | | [facility] | [address] | [address] | | | TESTS | | | | + + + + + RENAL FUNCTION SET (NA,K,CL,CO2,BUN,CREAT,GLUC,CA,PHOS,ALB ) (12/09/2012 6:02 PM PDT) + + + + + + | Component | Value | Ref Range | Performed | Pathologist | | | | | At | Signature | + + + + + + | GLUCOSE, | 125 (H) | 60 - 99 mg/dL | [facility] | | | PLASMA | | | LABORATORY | | | (LAB) | | | SERVICES, | | | | | | CORE | | + + + + + + | BUN, PLASMA | 124 (H) | 6 - 20 mg/dL | [facility] | | | (LAB) | | | LABORATORY | | | | | | SERVICES, | | | | | | CORE | | + + + + + + | CREATININE | 6.50 (H) | 0.70 - 1.30 | [facility] | | | PLASMA | | mg/dL | LABORATORY | | | (LAB) | | | SERVICES, | | | | | | CORE | | + + + + + + | SODIUM, | 148 (H) | 136 - 145 | [facility] | | | PLASMA | | mmol/L | LABORATORY | | | (LAB) | | | SERVICES, | | | | | | CORE | | + + + + + + | POTASSIUM, | 4.4 | 3.4 - 5.0 | [facility] | | | PLASMA | | mmol/L | LABORATORY | | | (LAB) | | | SERVICES, | | | | | | CORE | | + + + + + + | CHLORIDE, | 110 (H) | 97 - 108 mmol/L | [facility] [...] + + + + | CALCIUM, | 8.1 (L) | 8.6 - 10.2 | [facility] | | | PLASMA | | mg/dL | LABORATORY | | | (LAB) | | | SERVICES, | | | | | | CORE | | + + + + + + | ALBUMIN, | 2.1 (L) | 3.5 - 4.7 g/dL | [facility] | | | PLASMA | | | LABORATORY | | | (LAB) | | | SERVICES, | | | | | | CORE | | + + + + + + | PHOSPHORUS, | 8.2 (H) | 2.4 - 4.7 mg/dL | [facility] | | | PLASMA [...] + + + + | ANION | 16 (H) | 4 - 11 mmol/L | [...] | + + + + + | [facility] | [address] | [place] [address] | | | SERVICES, CORE | [address] | | | + + + + + CO-OXIMETER PANEL, BLOOD (12/09/2012 6:02 PM PDT) + + + + + + | Component | Value | Ref Range | Performed | Pathologist | | | | | At | Signature | + + + + + + | TOTAL | 8.2 (L) | 13.5 - 17.5 | [facility] | | | HEMOGLOBIN | | g/dL | LABORATORY | | | | | | SERVICES, | | | | | | CORE | | + + + + + + | OXYHEMOGLOB | 57.0 (L) | 94.0 - 100.0 % | [facility] | | | IN | | | LABORATORY | | | | | | SERVICES, | | | | | | CORE | | + + + + + + | CARBOXYHEMO | 1.1 | <1.5 % | [facility] | | | GLOBIN | | | LABORATORY | | | | | | SERVICES, | | | | | | CORE | | + + + + + + | METHEMOGLOB | 1.7 | % | [facility] | | | IN | | | LABORATORY | | | | | | SERVICES, | | | | | | CORE | | + + + + + + | OXYGEN SAT, | 58.6 (L) | 92.0 - 98.0 % | [facility] | | | BERTA | | | LABORATORY | | | | | | SERVICES, | | | | | | CORE | | + + + + + + | DEOXYHEMOGL | 40.2 | % | [facility] | | | OBIN | | | LABORATORY | | | | | | SERVICES, | | | | | | CORE | | + + + + + + + + | Specimen | + + | Blood - Blood | + + + + + | Narrative | Performed At | + + + | Carboxyhemoglobin ranges Nonsmoker: | [facility] | | <1.5% Smokers (1-2 packs/day): 4-5% Smokers (>2 packs/day): | LABORATORY | | 8-9% Methemoglobin Reference Range: 0-18 years: Not | [facility] [place] | | Available >18 years: <2% of total hemoglobin | | + + + + + + + + | Performing | Address | City/State/Zipcode | Phone Number | | Organization | | | | + + + + + | [facility] | [address] | [place] [address] | | | [place] | [address] | | | + + + + + ATIII ACTIVITY, PLASMA (12/09/2012 6:02 PM PDT) + + + + + + | Component | Value | Ref Range | Performed | Pathologist | | | | | At | Signature | + + + + + + | ATIII | 0.55 (LL) | 0.86 - 1.18 | [facility] | | | ACTIVITY, | | U/mL | LABORATORY | | | PLASMA | | | SERVICES, | | | | | | CORE | | + + + + + + + + | Specimen | + + | Blood - Blood | + + + + + | Narrative | Performed At | + + + | Published reference ranges for children less than 6 months | [facility] | | can be found in the Hemostasis Section general instructions of the | LABORATORY | | [facility] Lab Manual: | [place] | | [email or web address] | | + + + + + + + + | Performing | Address | City/State/Zipcode | Phone Number | | Organization | | | | + + + + + | [facility] | [address] | [place] [address] | | | SERVICES, CORE | [address] | | | + + + + + HEPARIN, EITHER STANDARD / LMW, BLOOD (12/09/2012 6:02 PM PDT) + +-------+ + + + | Component | Value | Ref Range | Performed | Pathologist | | | | | At | Signature | + +-------+ + + + | HEPARIN, | <0.10 | U/mL | [facility] | | | STD LMW | | | LABORATORY | | | | | | SERVICES, | | | | | | CORE | | + +-------+ + + + + + | Specimen | + + | Blood - Blood | + + + + + | Narrative | Performed At | + + + | Heparin, Either STD/LMW - Therapeutic Ranges: Heparin, | [facility] | | Unfractionated: 0.35 - 0.70 U/mL Enoxaparin, LMWH: 0.70 | LABORATORY | | - 1.20 U/mL Dalteparin, LMWH: 0.70 - 1.20 U/mL | SERVICES, CORE | | Tinzaparin, LMWH: Therapeutic range not established. | | | Preliminary studies suggest range | | | similar to dalteparin. Clinical | | | correlation required. | | | Heparin levels may be unreliable for: | | | Total bilirubin >6.6mg/dL | | | Triglycerides >360 mg/dL | | | or Moderate to Gross Hemolysis | | + + + + + + + + | Performing | Address | City/State/Zipcode | Phone Number | | Organization | | | | + + + + + | [facility] | [address] | [place] [address] | | | [place] | [address] | | | + + + + + CAPILLARY BLOOD GLUCOSE (NO CHG), POC (12/09/2012 5:11 PM PDT) + +---------+ + + + | Component | Value | Ref Range | Performed | Pathologist | | | | | At | Signature | + +---------+ + + + | BLOOD | 142 (H) | 60 - 99 mg/dL | [facility] - | | | GLUCOSE, | | [...] + | [facility] | [address] | [place], [place] | | | [facility] | [address] | [address] | | | TESTS | | | | + + + + + CAPILLARY BLOOD GLUCOSE (NO CHG), POC (12/09/2012 4:09 PM PDT) + +---------+ + + + | Component | Value | Ref Range | Performed | Pathologist | | | | | At | Signature | + +---------+ + + + | BLOOD | 158 (H) | 60 - 99 mg/dL | [...] | [facility] | [address] | [place], [place] | | | [facility] | [address] | [address] | | | TESTS | | | | + + + + + CAPILLARY BLOOD GLUCOSE (NO CHG), POC (12/09/2012 3:16 PM PDT) + +---------+ + + + | Component | Value | Ref Range | Performed | Pathologist | | | | | At | Signature | + +---------+ + + + | BLOOD | 135 (H) | 60 - 99 mg/dL | [...] | [facility] | [address] | [place], [place] | | | [facility] | [facility] | [address] | | | TESTS | | | | + + + + + CAPILLARY BLOOD GLUCOSE (NO CHG), POC (12/09/2012 1:56 PM PDT) + +---------+ + + + | Component | Value | Ref Range | Performed | Pathologist | | | | | At | Signature | + +---------+ + + + | BLOOD | 125 (H) | 60 - 99 mg/dL | [facility] - | | | GLUCOSE, | | [...] + | [facility] | [address] | [place], [place] | | | [facility] | [address] | [address] | | | TESTS | | | | + + + + + 12 LEAD ECG (12/09/2012 1:40 PM PDT) + + + + + + | Component | Value | Ref Range | Performed | Pathologist | | | | | At | Signature | + + + + + + | VENTRICULAR | 118 | BPM | [facility] | | | RATE | | | OF | | | | | | CARDIOLOGY | | + + + + + + | ATRIAL RATE | 119 | BPM | [facility] | | | | | | OF | | | | | | CARDIOLOGY | | + + + + + + | QRS | 98 | ms | [facility] | | | DURATION | | | OF | | | | | | CARDIOLOGY | | + + + + + + | QT | 380 | ms | [facility] | | | | | | OF | | | | | | CARDIOLOGY | | + + + + + + | QTC | 532 | ms | [facility] | | | | | | OF | | | | | | CARDIOLOGY | | + + + + + + | R AXIS | 105 | degrees | [facility] | | | | | | OF | | | | | | CARDIOLOGY | | + + + + + + | T AXIS | -32 | degrees | [facility] | | | | | | OF | | | | | | CARDIOLOGY | | + + + + + + | EKG | Atrial fibrillation with | | [facility] | | | DIAGNOSIS | rapid ventricular | | OF | | | | responseRightward | | CARDIOLOGY | | | | axisPossible Inferior | | | | | | infarct , age | | | | | | undeterminedAnterior | | | | | | infarct , age | | | | | | undeterminedAbnormal | | | | | | ECGConfirmed by | | | | | | STACY WARD | | | | | | ([id number]) on 12/11/2012 | | | | | | 8:39:29 AM | | | | + + + + + + + + | Specimen | + + | | + + + + + | Narrative | Performed At | + + + | Please click | [facility] | | on view image for the detailed interpretation from [employer] results. | CARDIOLOGY | + + + + + + + + | Performing | Address | City/State/Zipcode | Phone Number | | Organization | | | | + + + + + | [facility] | [address] | [place] | | | CARDIOLOGY | [address] | [address] | | + + + + + CAPILLARY BLOOD GLUCOSE (NO CHG), POC (12/09/2012 1:04 PM PDT) + +---------+ + + + | Component | Value | Ref Range | Performed | Pathologist | | | | | At | Signature | + +---------+ + + + | BLOOD | 132 (H) | 60 - 99 mg/dL | [...] + | [facility] | [address] | [place], [place] | | | [facility] | [address] | [address] | | | TESTS | | | | + + + + + CAPILLARY BLOOD GLUCOSE (NO CHG), POC (12/09/2012 12:02 PM PDT) + +---------+ + + + | Component | Value | Ref Range | Performed | Pathologist | | | | | At | Signature | + +---------+ + + + | BLOOD | 150 (H) | 60 - 99 mg/dL | [...] + | [facility] | [address] | [place], [place] | | | [facility] | [address] | [address] | | | TESTS | | | | + + + + + CAPILLARY BLOOD GLUCOSE (NO CHG), POC (12/09/2012 11:19 AM PDT) + +---------+ + + + | Component | Value | Ref Range | Performed | Pathologist | | | | | At | Signature | + +---------+ + + + | BLOOD | 154 (H) | 60 - 99 mg/dL | [...] | [facility] | [address] | [place], [place] | | | [facility] | [facility] | [address] | | | TESTS | | | | + + + + + CAPILLARY BLOOD GLUCOSE (NO CHG), POC (12/09/2012 10:08 AM PDT) + +---------+ + + + | Component | Value | Ref Range | Performed | Pathologist | | | | | At | Signature | + +---------+ + + + | BLOOD | 141 (H) | 60 - 99 mg/dL | [facility] - | | | GLUCOSE, | | [...] + | [facility] | [address] | [place], [place] | | | [facility] | [address] | [address] | | | TESTS | | | | + + + + + CAPILLARY BLOOD GLUCOSE (NO CHG), POC (12/09/2012 8:03 AM PDT) + +---------+ + + + | Component | Value | Ref Range | Performed | Pathologist | | | | | At | Signature | + +---------+ + + + | BLOOD | 127 (H) | 60 - 99 mg/dL | [facility] - | | | GLUCOSE, | | | [facility] | | | POC | | | [facility] | | | | | | [facility] CARE | | | | | | TESTS | | + +---------+ + + + + + | Specimen | + + | | + + + + + + + | Performing | Address | City/State/Zipcode | Phone Number | | Organization | | | | + + + + + | [facility] | [address] | [place], [place] | | | [facility] | [address] | [address] | | | TESTS | | | | + + + + + CAPILLARY BLOOD GLUCOSE (NO CHG), POC (12/09/2012 7:00 AM PDT) + +---------+ + + + | Component | Value | Ref Range | Performed | Pathologist | | | | | At | Signature | + +---------+ + + + | BLOOD | 126 (H) | 60 - 99 mg/dL | [...] | [facility] | [address] | [place], [place] | | | [facility] | [facility] | [address] | | | TESTS | | | | + + + + + CAPILLARY BLOOD GLUCOSE (NO CHG), POC (12/09/2012 6:03 AM PDT) + +---------+ + + + | Component | Value | Ref Range | Performed | Pathologist | | | | | At | Signature | + +---------+ + + + | BLOOD | 119 (H) | 60 - 99 mg/dL | [facility] - | | | GLUCOSE, | | [...] + | [facility] | [address] | [place], [place] | | | [facility] | [address] | [address] | | | TESTS | | | | + + + + + X-RAY PORTABLE CHEST 1 VIEW (12/09/2012 5:59 AM PDT) + + + + + + | Component | Value | Ref Range | Performed | Pathologist | | | | | At | Signature | + + + + + + | X-RAY | Exam: DC CHEST 1 VIEW, | | | | | PORTABLE | 12/09/12 05:59 | | | | | CHEST 1 | History/Indication: | | | | | VIEW | Evaluate retrocardiac | | | | | | opacity Comparison: | | | | | | Chest radiographs from | | | | | | yesterday and multiple | | | | | | days prior Findings: | | | | | | Sternotomy wires, | | | | | | enteric tube, left | | | | | | internal jugular vein | | | | | | approachcentral venous | | | | | | catheter, enteric tube, | | | | | | skin jose and | | | | | | mediastinaldrains remain | | | | | | in place. No new | | | | | | support equipment is | | | | | | identified. Three | | | | | | minimally is unchanged. | | | | | | The mediastinal | | | | | | silhouette is | | | | | | stable.Dense | | | | | | retrocardiac | | | | | | consolidation is | | | | | | unchanged. Blunting of | | | | | | leftcostophrenic angle | | | | | | suggests a small left | | | | | | pleural effusion. | | | | | | Scatteredareas of | | | | | | subsegmental atelectasis | | | | | | are present in the left | | | | | | upper lobeand right | | | | | | lung; the right lung is | | | | | | otherwise clear. There | | | | | | is nopneumothorax or | | | | | | pulmonary edema. | | | | | | Regional osseous | | | | | | structures | | | | | | areunremarkable. | | | | | | Impression: Retrocardiac | | | | | | left lower lobe | | | | | | consolidation is favored | | | | | | to | | | | | | representatelectasis. | | | | | | Unchanged small left | | | | | | pleural effusion. | | | | | | Scattered areas of | | | | | | subsegmental atelectasis | | | | | | with no new | | | | | | consolidation. | | | | | | Attending Radiologists: | | | | | | PRECIOUS HOLT MDAuthor: | | | | | | Narendra Espinosa M.D. I | | | | | | have personally viewed | | | | | | this procedure/exam, | | | | | | reviewed this report,and | | | | | | made changes to it | | | | | | where appropriate. | | | | | | Final/Electronically | | | | | | signed / PRECIOUS HOLT | | | | | | 12/09/2012 10:31 AM | | | | + + + + + + + + | Specimen | + + | | + + + +---------+ + + | Performing | Address | City/State/Zipcode | Phone Number | | Organization | | | | + +---------+ + + | [facility] DEPARTMENT OF | | | | | RADIOLOGY | | | | + +---------+ + + CAPILLARY BLOOD GLUCOSE (NO CHG), POC (12/09/2012 5:08 AM PDT) + +---------+ + + + | Component | Value | Ref Range | Performed | Pathologist | | | | | At | Signature | + +---------+ + + + | BLOOD | 121 (H) | 60 - 99 [...] + + + + | [facility] | [address] | [place], [place] | | | [facility] | [address] | [address] | | | TESTS | | | | + + + + + CAPILLARY BLOOD GLUCOSE (NO CHG), POC (12/09/2012 4:09 AM PDT) + +---------+ + + + | Component | Value | Ref Range | Performed | Pathologist | | | | | At | Signature | + +---------+ + + + | BLOOD | 117 (H) | 60 - 99 mg/dL | [...] + | [facility] | [address] | [place], [place] | | | [facility] | [address] | [address] | | | TESTS | | | | + + + + + CAPILLARY BLOOD GLUCOSE (NO CHG), POC (12/09/2012 3:05 AM PDT) + +---------+ + + + | Component | Value | Ref Range | Performed | Pathologist | | | | | At | Signature | + +---------+ + + + | BLOOD | 115 (H) | 60 - 99 mg/dL | [...] + + + + | [facility] | [address] | [place], [place] | | | [facility] | [address] | [address] | | | TESTS | | | | + + + + + CAPILLARY BLOOD GLUCOSE (NO CHG), POC (12/09/2012 2:01 AM PDT) + +---------+ + + + | Component | Value | Ref Range | Performed | Pathologist | | | | | At | Signature | + +---------+ + + + | BLOOD | 115 (H) | 60 - 99 mg/dL | [...] + | [facility] | [address] | [place], [place] | | | [facility] | [address] | [address] | | | TESTS | | | | + + + + + VANCOMYCIN, TROUGH (12/09/2012 1:54 AM PDT) + + + + + + | Component | Value | Ref Range | Performed | Pathologist | | | | | At | Signature | + + + + + + | VANCOMYCIN, | 37.6 (H) | 5.0 - 15.0 | [facility] | | | TROUGH | | ug/mL | LABORATORY | | | | | [...] | + + + + + | [facility] | [address] | [place] [address] | | | SERVICES, CORE | [address] | | | + + + + + MANUAL DIFFERENTIAL (12/09/2012 1:54 AM PDT) + + + + + + | Component | Value | Ref Range | Performed | Pathologist | | | | | At | Signature | + + + + + + | NEUTROPHIL% | 72 (H) | 50 - 70 % | [facility] | | | | | | LABORATORY | | | | | | SERVICES, | | | | | | CORE | | + + + + + + | LYMPHOCYTE% | 8 (L) | 18 - 42 % | [facility] | | | | | | LABORATORY | | | | | | SERVICES, | | | | | | CORE | | + + + + + + | MONOCYTE % | 8 | 2 - 8 % | [facility] | | | | | | LABORATORY | | | | | | SERVICES, | | | | | | CORE | | + + + + + + | EOSINOPHIL | 3 | 1 - 3 % | [facility] | | | % | | | LABORATORY | | | | | | SERVICES, | | | | | | CORE | | + + + + + + | BASOPHIL % | 1 | 0 - 2 % | [facility] | | | | | | LABORATORY | | | | | | SERVICES, | | | | | | CORE | | + + + + + + | BANDS % | 8 | 0 - 10 % | [facility] | | | | | | LABORATORY | | | | | | SERVICES, | | | | | | CORE | | + + + + + + | METAMYELO% | 0 | <=0 % | [facility] | | | | | | LABORATORY | | | | | | SERVICES, | | | | | | CORE | | + + + + + + | MYELOCYTES% | 0 | <=0 % | [facility] | | | | | | LABORATORY | | | | | | SERVICES, | | | | | | CORE | | + + + + + + | PROMYELO% | 0 | <=0 % | [facility] | | | | | | LABORATORY | | | | | | SERVICES, | | | | | | CORE | | + + + + + + | ATYPICAL | 0 | <=0 | [facility] | | | CELL% | | | LABORATORY | | | | | | SERVICES, | | | | | | CORE | | + + + + + + | NEUTROPHIL | 10.3 (H) | 1.8 - 7.7 K/cu | [facility] | | | # | | mm | LABORATORY | | | | | | SERVICES, | | | | | | CORE | | + + + + + + | LYMPHOCYTE# | 1.1 | 1.0 - 4.8 K/cu | [facility] | | | | | mm | LABORATORY | | | | | | SERVICES, | | | | | | CORE | | + + + + + + | MONOCYTE # | 1.1 (H) | 0.0 - 0.8 K/cu | [facility] | | | | | mm | LABORATORY | | | | | | SERVICES, | | | | | | CORE | | + + + + + + | EOSINOPHIL | 0.4 | 0.0 - 0.5 K/cu | [facility] | | | # | | mm | LABORATORY | | | | | | SERVICES, | | | | | | CORE | | + + + + + + | BASOPHIL # | 0.1 | 0.0 - 0.1 K/cu | [facility] | | | | | mm | LABORATORY | | | | | | SERVICES, | | | | | | CORE | | + + + + + + | BANDS # | 1.1 | 0.0 - 1.1 K/cu | [facility] | | | | | mm | LABORATORY | | | | | | SERVICES, | | | | | | CORE | | + + + + + + | METAMYELO# | 0.0 | K/cu mm | [facility] | | | | | | LABORATORY | | | | | | SERVICES, | | | | | | CORE | | + + + + + + | MYELOCYTES# | 0.0 | K/cu mm | [facility] | | | | | | LABORATORY | | | | | | SERVICES, | | | | | | CORE | | + + + + + + | PROMYELO # | 0.0 | K/cu mm | [facility] | | | | | | LABORATORY | | | | | | SERVICES, | | | | | | CORE | | + + + + + + | ATYPICAL | 0.0 | K/cu mm | [facility] | | | CELLS # | | | LABORATORY | | | | | | SERVICES, | | | | | | CORE | | + + + + + + | NRBC | 1 | /100 WBC | [facility] | | | | | | LABORATORY | | | | | | SERVICES, | | | | | | CORE | | + + + + + + | RBC | Normal | (none) | [facility] | | | MORPHOLOGY | | | LABORATORY | | | | | | SERVICES, | | | | | | CORE | | + + + + + + + + | Specimen | + + | Blood - Blood | + + + + + | Narrative | Performed At | + + + | Final WBC report. | [facility] | | | LABORATORY | | | [facility]I [facility] | + + + + + + + + | Performing | Address | City/State/Zipcode | Phone Number | | Organization | | | | + + + + + | [facility] | [address] | [place] [address] | | | SERVICES, TOI | [address] | | | + + + + + CBC AND AUTO DIFF (12/09/2012 1:54 AM PDT) + + + + + + | Component | Value | Ref Range | Performed | Pathologist | | | | | At | Signature | + + + + + + | WBC COUNT | 14.3 (H) | 4.4 - 11.0 K/cu | [facility] | | | | | mm | LABORATORY | | | | | | SERVICES, | | | | | | CORE | | + + + + + + | RED CELL | 2.60 (L) | 4.50 - 5.90 | [facility] | | | COUNT | | M/cu mm | LABORATORY | | | | | | SERVICES, | | | | | | CORE | | + + + + + + | HEMOGLOBIN | 8.3 (L) | 13.5 - 17.5 | [facility] | | | | | g/dL | LABORATORY | | | | | | SERVICES, | | | | | | CORE | | + + + + + + | HEMATOCRIT | 24.3 (L) | 41.0 - 53.0 % | [facility] | | | | | | LABORATORY | | | | | | SERVICES, | | | | | | CORE | | + + + + + + | MCV | 93.5 | 80.0 - 96.0 fL | [facility] | | | | | | LABORATORY | | | | | | SERVICES, | | | | | | CORE | | + + + + + + | MCHC | 34.1 | 33.4 - 35.5 | [facility] | | | | | g/dL | LABORATORY | | | | | | SERVICES, | | | | | | CORE | | + + + + + + | RDW | 15.8 (H) | 11.5 - 15.0 % | [facility] | | | | | | LABORATORY | | | | | | SERVICES, | | | | | | CORE | | + + + + + + | PLATELET | 175 | 150 - 400 K/cu | [facility] [...] + | [facility] | [address] | [place] [address] | | | SERVICES, CORE | [address] | | | + + + + + BLOOD GASES, ARTERIAL - LAB (12/09/2012 1:54 AM PDT) + + + + + + | Component | Value | Ref Range | Performed | Pathologist | | | | | At | Signature | + + + + + + | PAT TEMP | 37.6 | Degree C | [facility] | | | ARTERIAL | | | LABORATORY | | | | | | SERVICES, | | | | | | CORE | | + + + + + + | FIO2 | .40 | | [facility] | | | ARTERIAL | | | LABORATORY | | | | | | SERVICES, | | | | | | CORE | | + + + + + + | PH ARTERIAL | 7.43 | 7.37 - 7.44 | [facility] | | | | | | LABORATORY | | | | | | SERVICES, | | | | | | CORE | | + + + + + + | PCO2 | 39 | 32 - 43 mmHg | [facility] | | | ARTERIAL | | | LABORATORY | | | | | | SERVICES, | | | | | | CORE | | + + + + + + | PO2 | 93 | 72 - 104 mmHg | [facility] | | | ARTERIAL | | | LABORATORY | | | | | | SERVICES, | | | | | | CORE | | + + + + + + | HCO3 | 25 | 21 - 28 mmol/L | [facility] | | | ARTERIAL | | | LABORATORY | | | | | | SERVICES, | | | | | | CORE | | + + + + + + | TOTAL CO2 | 26 | 22 - 28 mmol/L | [facility] | | | ARTERIAL | | | LABORATORY | | | | | | SERVICES, | | | | | | CORE | | + + + + + + | BASE EXCESS | 1.4 | | [facility] | | | ARTERIAL | | | LABORATORY | | | | | | SERVICES, | | | | | | CORE | | + + + + + + | O2 SAT, | 98.4 (H) | 92.0 - 98.0 | [facility] | | | ARTERIAL | | | LABORATORY | | | [...] + | [facility] | [address] | [place] [address] | | | SERVICES, CORE | [address] | | | + + + + + LIVER SET (AST,ALT,BILI TOTAL,BILI DIRECT,ALK PHOS,ALB,PROT TOTAL) (12/09/2012 1:54 AM PDT ) + + + + + + | Component | Value | Ref Range | Performed | Pathologist | | | | | At | Signature | + + + + + + | ALBUMIN, | 2.2 (L) | 3.5 - 4.7 g/dL | [facility] | | | PLASMA | | | LABORATORY | | | (LAB) | | | SERVICES, | | | | | | CORE | | + + + + + + | BILIRUBIN | 4.9 (H) | 0.3 - 1.2 mg/dL | [facility] | | | TOTAL | | | LABORATORY | | | | | | SERVICES, | | | | | | CORE | | + + + + + + | BILIRUBIN | 4.0 (H) | 0.0 - 0.3 mg/dL | [facility] | | | DIRECT | | | LABORATORY | | | | | | SERVICES, | | | | | | CORE | | + + + + + + | ALK PHOS | 136 (H) | 56 - 119 U/L | [facility] | | | | | | LABORATORY | | | | | | SERVICES, | | | | | | CORE | | + + + + + + | AST(SGOT) | 514 (H) | 15 - 41 U/L | [facility] | | | | | | LABORATORY | | | | | | SERVICES, | | | | | | CORE | | + + + + + + | ALT (SGPT) | 2,067 (H) | 12 - 60 U/L | [facility] | | | | | | LABORATORY | | | | | | SERVICES, | | | | | | CORE | | + + + + + + | TOTAL | 5.5 (L) | 6.1 - 7.9 g/dL | [facility] | | | PROTEIN, | | | LABORATORY | | | PLASMA | | | SERVICES, | | | (LAB) | | | CORE | | + + + + + + | AST CMNT | No Hemo | | [facility] | | | | | | LABORATORY | | | | | | SERVICES, | | | | | | CORE | | + + + + + + | GINAI T CMNT | No Hemo | | [facility] | | | | | | LABORATORY | | | | | | SERVICES, | | | | | | CORE | | + + + + + + | BILI D CMNT | No Hemo | | [facility] [...] | + + + + + | [facility] | [address] | [place] [address] | | | SERVICES, CORE | [address] | | | + + + + + RENAL FUNCTION SET (NA,K,CL,CO2,BUN,CREAT,GLUC,CA,PHOS,ALB ) (12/09/2012 1:54 AM PDT) + + + + + + | Component | Value | Ref Range | Performed | Pathologist | | | | | At | Signature | + + + + + + | GLUCOSE, | 100 (H) | 60 - 99 mg/dL | [facility] | | | PLASMA | | | LABORATORY | | | (LAB) | | | SERVICES, | | | | | | CORE | | + + + + + + | BUN, PLASMA | 114 (H) | 6 - 20 mg/dL | [facility] | | | (LAB) | | | LABORATORY | | | | | | SERVICES, | | | | | | CORE | | + + + + + + | CREATININE | 6.16 (H) | 0.70 - 1.30 | [facility] | | | PLASMA | | mg/dL | LABORATORY | | | (LAB) | | | SERVICES, | | | | | | CORE | | + + + + + + | SODIUM, | 149 (H) | 136 - 145 | [facility] | | | PLASMA | | mmol/L | LABORATORY | | | (LAB) | | | SERVICES, | | | | | | CORE | | + + + + + + | POTASSIUM, | 4.6 | 3.4 - 5.0 | [facility] | | | PLASMA | | mmol/L | LABORATORY | | | (LAB) | | | SERVICES, | | | | | | CORE | | + + + + + + | CHLORIDE, | 109 (H) | 97 - 108 mmol/L | [facility] [...] + + + + | CALCIUM, | 8.1 (L) | 8.6 - 10.2 | [facility] | | | PLASMA | | mg/dL | LABORATORY | | | (LAB) | | | SERVICES, | | | | | | CORE | | + + + + + + | ALBUMIN, | 2.2 (L) | 3.5 - 4.7 g/dL | [facility] | | | PLASMA | | | LABORATORY | | | (LAB) | | | SERVICES, | | | | | | CORE | | + + + + + + | PHOSPHORUS, | 8.7 (H) | 2.4 - 4.7 mg/dL | [facility] | | | PLASMA [...] + + + | ANION GAP | 14 (H) | 4 - 11 mmol/L | [facility] | | | | | | LABORATORY | | | | | | SERVICES, | | | | | | CORE | | + + + + + + | ANION | 18 (H) | 4 - 11 mmol/L | [...] | + + + + + | [facility] | [address] | [place] [address] | | | SERVICES, CORE | [address] | | | + + + + + MAGNESIUM, PLASMA (12/09/2012 1:54 AM PDT) + +---------+ + + + | Component | Value | Ref Range | Performed | Pathologist | | | | | At | Signature | + +---------+ + + + | MAGNESIUM,P | 2.6 (H) | 1.8 - 2.5 mg/dL | [facility] [...] + | [facility] | [address] | [place] [address] | | | SERVICES, CORE | [address] | | | + + + + + CAPILLARY BLOOD GLUCOSE (NO CHG), POC (12/09/2012 1:08 AM PDT) + +---------+ + + + | Component | Value | Ref Range | Performed | Pathologist | | | | | At | Signature | + +---------+ + + + | BLOOD | 112 (H) | 60 - 99 mg/dL | [...] + + + + | [facility] | [address] | [place], [place] | | | [facility] | [address] | [address] | | | TESTS | | | | + + + + + CAPILLARY BLOOD GLUCOSE (NO CHG), POC (12/09/2012 12:11 AM PDT) + +---------+ + + + | Component | Value | Ref Range | Performed | Pathologist | | | | | At | Signature | + +---------+ + + + | BLOOD | 115 (H) | 60 - 99 mg/dL | [...] + + + | [facility] | [address] | [place], [place] | | | [facility] | [address] | [address] | | | TESTS | | | | + + + + + X-RAY ABD LTD FEEDING TUBE EVAL (12/09/2012 12:07 AM PDT) + + + + + + | Component | Value | Ref Range | Performed | Pathologist | | | | | At | Signature | + + + + + + | ABD LTD | Exam: ABD LTD FEEDING | | | | | FEEDING | TUBE EVAL 12/09/12 | | | | | TUBE EVAL | 00:07:00 | | | | | | History/Indication: | | | | | | Feeding tube placement | | | | | | Comparison: 12/05/12 | | | | | | Findings: An enteric | | | | | | tube is in place, | | | | | | traveling along the | | | | | | expected trajectorywith | | | | | | tip in the region of the | | | | | | gastric antrum and | | | | | | functional sideholein | | | | | | the gastric body. | | | | | | Sternotomy wires, skin | | | | | | jose, soft | | | | | | tissuedrains and | | | | | | overlying EKG leads are | | | | | | again noted. | | | | | | Cardiomegaly isagain | | | | | | noted, along with | | | | | | retrocardiac opacity. | | | | | | No free air | | | | | | isidentified. | | | | | | IMPRESSION: Enteric tube | | | | | | in place with tip in | | | | | | the gastric antrum and | | | | | | functionalsidehole in | | | | | | the gastric body. | | | | | | Attending Radiologists: | | | | | | PRECIOUS HOLT MDAuthor: | | | | | | Narendra Espinosa M.D. I | | | | | | have personally viewed | | | | | | this procedure/exam, | | | | | | reviewed this report,and | | | | | | made changes to it | | | | | | where appropriate. | | | | | | Final/Electronically | | | | | | zen / PRECIOUS HOLT | | | | | | 12/09/2012 11:14 AM | | | | + + + + + + + + | Specimen | + + | | + + + +---------+ + + | Performing | Address | City/State/Zipcode | Phone Number | | Organization | | | | + +---------+ + + | [facility] DEPARTMENT OF | | | | | RADIOLOGY | | | | + +---------+ + + CAPILLARY BLOOD GLUCOSE (NO CHG), POC (12/08/2012 11:06 PM PDT) + +---------+ + + + | Component | Value | Ref Range | Performed | Pathologist | | | | | At | Signature | + +---------+ + + + | BLOOD | 115 (H) | 60 - 99 mg/dL | [...] + + + + | [facility] | [address] | [place], [place] | | | [facility] | [address] | [address] | | | TESTS | | | | + + + + + CAPILLARY BLOOD GLUCOSE (NO CHG), POC (12/08/2012 10:11 PM PDT) + +---------+ + + + | Component | Value | Ref Range | Performed | Pathologist | | | | | At | Signature | + +---------+ + + + | BLOOD | 121 (H) | 60 - 99 [...] + + + + | [facility] | [address] | [place], [place] | | | [facility] | [facility] | [address] | | | TESTS | | | | + + + + + CAPILLARY BLOOD GLUCOSE (NO CHG), POC (12/08/2012 8:26 PM PDT) + +---------+ + + + | Component | Value | Ref Range | Performed | Pathologist | | | | | At | Signature | + +---------+ + + + | BLOOD | 106 (H) | 60 - 99 mg/dL | [...] + | [facility] | [address] | [place], [place] | | | [facility] | [address] | [address] | | | TESTS | | | | + + + + + X-RAY PORTABLE CHEST 1 VIEW (12/08/2012 7:41 PM PDT) + + + + + + | Component | Value | Ref Range | Performed | Pathologist | | | | | At | Signature | + + + + + + | X-RAY | STUDY:DC CHEST 1 VIEW | | | | | PORTABLE | 12/08/12 19:41:00 | | | | | CHEST 1 | COMPARISON:December 07, | | | | | VIEW | 12/08/12 INDICATION: | | | | | | Post mediastinal washout | | | | | | and is closer, left | | | | | | [facility] | | | | | | placement FINDINGS:New | | | | | | sternal wire is appear | | | | | | intact and well aligned. | | | | | | Previously seenwire | | | | | | fragment has been | | | | | | removed. ET tube | | | | | | terminates about 5 cm | | | | | | abovethe john, right | | | | | | IJ line has been | | | | | | removed, a left chest | | | | | | tube isunchanged, left | | | | | | IJ PA catheter tip | | | | | | projects over the | | | | | | pulmonaryoutflow. The | | | | | | cardiomediastinal | | | | | | silhouette is stable. | | | | | | There arescattered | | | | | | groundglass opacities | | | | | | consistent with | | | | | | pulmonary edema,dense | | | | | | retrocardiac atelectasis | | | | | | and small left | | | | | | effusion. No sign | | | | | | ofpneumothorax. | | | | | | IMPRESSION: Left IJ PA | | | | | | catheter tip projects | | | | | | over the pulmonary | | | | | | outflow. New sternal | | | | | | wires are intact and | | | | | | well aligned. | | | | | | Previously seen | | | | | | wirefragment has been | | | | | | removed. Right IJ line | | | | | | and esophagogastric | | | | | | tubewere also removed. | | | | | | Stable cardiomegaly. | | | | | | Mild pulmonary edema. | | | | | | Dense | | | | | | retrocardiacatelectasis | | | | | | and small left effusion. | | | | | | Attending | | | | | | Radiologists: PRECIOUS | | | | | | TIGRE HOLTuthor: PRCEIOUS | | | | | | MD JONATHON I have | | | | | | personally viewed this | | | | | | procedure/exam, reviewed | | | | | | this report,and made | | | | | | changes to it where | | | | | | appropriate. | | | | | | Final/Electronically | | | | | | signed / PRECIOUS HOLT | | | | | | 12/08/2012 20:32 PM | | | | + + [...] | | | + +---------+ + + CALCIUM, IONIZED, WHOLE BLOOD (12/08/2012 6:04 PM PDT) + +-------+ + + + | Component | Value | Ref Range | Performed | Pathologist | | | | | At | Signature | + +-------+ + + + | BERTA ICA, | 1.22 | 1.14 - 1.32 | [facility] | | | WHOLE BLD | | mmol/L | LABORATORY | | | | | | SERVICES, | | | | | | CORE | | + +-------+ + + + | PH, WHOLE | 7.40 | | [facility] | | | BLOOD | | | LABORATORY | | | | | | SERVICES, | | | | | | CORE | | + +-------+ + + + | ICA, | 1.21 | 1.14 - 1.28 | [facility] | | | CORRECTED | | mmol/L | LABORATORY | | | TO PH 7.4 | | | SERVICES, | | | [...] + | [facility] | [address] | [place] [address] | | | [place]I [place] | [address] | | | + + + + + CBC (12/08/2012 6:04 PM PDT) + + + + + + | Component | Value | Ref Range | Performed | Pathologist | | | | | At | Signature | + + + + + + | WBC COUNT | 14.1 (H) | 4.4 - 11.0 K/cu | [facility] | | | | | mm | LABORATORY | | | | | | SERVICES, | | | | | | CORE | | + + + + + + | RED CELL | 2.55 (L) | 4.50 - 5.90 | [facility] | | | COUNT | | M/cu mm | LABORATORY | | | | | | SERVICES, | | | | | | CORE | | + + + + + + | HEMOGLOBIN | 8.1 (L) | 13.5 - 17.5 | [facility] | | | | | g/dL | LABORATORY | | | | | | SERVICES, | | | | | | CORE | | + + + + + + | HEMATOCRIT | 24.2 (L) | 41.0 - 53.0 % | [facility] | | | | | | LABORATORY | | | | | | SERVICES, | | | | | | CORE | | + + + + + + | MCV | 94.8 | 80.0 - 96.0 fL | [facility] | | | | | | LABORATORY | | | | | | SERVICES, | | | | | | CORE | | + + + + + + | MCHC | 33.7 | 33.4 - 35.5 | [facility] | | | | | g/dL | LABORATORY | | | | | | SERVICES, | | | | | | CORE | | + + + + + + | RDW | 16.0 (H) | 11.5 - 15.0 % | [facility] | | | | | | LABORATORY | | | | | | SERVICES, | | | | | | CORE | | + + + + + + | PLATELET | 184 [...] + + | [facility] | [address] [address] [address] | [place] [address] | | | SERVICES, CORE | [address] | | | + + + + + COAGULOPATHY PANEL (INR,APTT,FIBRINOGEN) (12/08/2012 6:04 PM PDT) + + + + + + | Component | Value | Ref Range | Performed | Pathologist | | | | | At | Signature | + + + + + + | INR | 2.82 (H) | 0.90 - 1.20 INR | [facility] | | | | | | LABORATORY | | | | | | SERVICES, | | | | | | CORE | | + + + + + + | APTT | 55.7 (H) | 26.0 - 36.0 | [facility] | | | | | seconds | LABORATORY | | | | | | SERVICES, | | | | | | CORE | | + + + + + + | FIBRINOGEN | 580 (H) | 200 - 450 mg/dL | [facility] | | | LEVEL | | | LABORATORY | | | [...] with mech. valves (2.5 - 3.5) INR APTT | SERVICES, CORE | | Therapeutic Range: (75 - 120) sec | | | Heparin levels of 0.35 - 0.7 U/mL | | + + + + + + + + | Performing | Address | City/State/Zipcode | Phone Number | | Organization | | | | + + + + + | [facility] | [address] | [place] [address] | | | SERVICES, CORE | [address] | | | + + + + + BLOOD GASES, ARTERIAL - LAB (12/08/2012 6:04 PM PDT) + +-------+ + + + | Component | Value | Ref Range | Performed | Pathologist | | | | | At | Signature | + +-------+ + + + | PAT TEMP | | Degree C | [facility] | | | ARTERIAL | | | LABORATORY | | | | | | SERVICES, | | | | | | CORE | | + +-------+ + + + | FIO2 | | | [facility] | | | ARTERIAL | | | LABORATORY | | | | | | SERVICES, | | | | | | CORE | | + +-------+ + + + | PH ARTERIAL | 7.40 | 7.37 - 7.44 | [facility] | | | | | | LABORATORY | | | | | | SERVICES, | | | | | | CORE | | + +-------+ + + + | PCO2 | 43 | 32 - 43 mmHg | [facility] | | | ARTERIAL | | | LABORATORY | | | | | | SERVICES, | | | | | | CORE | | + +-------+ + + + | PO2 | 90 | 72 - 104 mmHg | [facility] | | | ARTERIAL | | | LABORATORY | | | | | | SERVICES, | | | | | | CORE | | + +-------+ + + + | HCO3 | 26 | 21 - 28 mmol/L | [facility] | | | ARTERIAL | | | LABORATORY | | | | | | SERVICES, | | | | | | CORE | | + +-------+ + + + | TOTAL CO2 | 27 | 22 - 28 mmol/L | [facility] | | | ARTERIAL | | | LABORATORY | | | | | | SERVICES, | | | | | | CORE | | + +-------+ + + + | BASE EXCESS | 1.4 | | [facility] | | | ARTERIAL | | | LABORATORY | | | | | | SERVICES, | | | | | | CORE | | + +-------+ + + + | O2 SAT, | 96.2 | 92.0 - 98.0 | [facility] | | | ARTERIAL | | | LABORATORY | | | [...] + + | [facility] | [address] | [place] [address] | | | SERVICES, CORE | [address] | | | + + + + + RENAL FUNCTION SET (NA,K,CL,CO2,BUN,CREAT,GLUC,CA,PHOS,ALB ) (12/08/2012 6:04 PM PDT) + + + + + + | Component | Value | Ref Range | Performed | Pathologist | | | | | At | Signature | + + + + + + | GLUCOSE, | 88 | 60 - 99 mg/dL | [facility] | | | PLASMA | | | LABORATORY | | | (LAB) | | | SERVICES, | | | | | | CORE | | + + + + + + | BUN, PLASMA | 109 (H) | 6 - 20 mg/dL | [facility] | | | (LAB) | | | LABORATORY | | | | | | SERVICES, | | | | | | CORE | | + + + + + + | CREATININE | 6.17 (H) | 0.70 - 1.30 | [facility] | | | PLASMA | | mg/dL | LABORATORY | | | (LAB) | | | SERVICES, | | | | | | CORE | | + + + + + + | SODIUM, | 147 (H) | 136 - 145 | [facility] | [...] + + + | TOTAL CO2, | 27 | 21 - 32 mmol/L | [facility] [...] + + + + | ALBUMIN, | 2.3 (L) | 3.5 - 4.7 g/dL | [facility] | | | PLASMA | | | LABORATORY | | | (LAB) | | | SERVICES, | | | | | | CORE | | + + + + + + | PHOSPHORUS, | 8.4 (H) | 2.4 - 4.7 mg/dL | [facility] | | | PLASMA [...] + + + + | ANION | 17 (H) | 4 - 11 mmol/L | [...] | + + + + + | [facility] | [address] | [place] [address] | | | SERVICES, CORE | [address] | | | + + + + + CAPILLARY BLOOD GLUCOSE (NO CHG), POC (12/08/2012 6:00 PM PDT) + +-------+ + + + | Component | Value | Ref Range | Performed | Pathologist | | | | | At | Signature | + +-------+ + + + | BLOOD | 93 | 60 - 99 mg/dL | [facility] - | | | GLUCOSE, | | | [facility] | | | POC | | | [facility] | | | | | | [facility] CARE | | | | | | TESTS | | + +-------+ + + + + + | Specimen | + + | | + + + + + + + | Performing | Address | City/State/Zipcode | Phone Number | | Organization | | | | + + + + + | [facility] | [address] | [place], [place] | | | [facility] | [address] | [address] | | | TESTS | | | | + + + + + CULTURE, FUNGAL EXCEPT BLOOD, SKIN, HAIR, NAIL (12/08/2012 4:00 PM PDT) + + + + + + | Component | Value | Ref Range | Performed | Pathologist | | | | | At | Signature | + + + + + + | SPECIMEN | Swab | | [facility] | | | TYPE | | | [facility] | | | | | | [place] | | + + + + + + | CULTURE | C Fungus, OtherSource: | | [facility] | | | RESULT | Swab | | [facility] - | | | | Final SMEAR:No | | [place] | | | | fungal elements seen | | | | | | CULTURE RESULT:No fungus | | | | | | isolated at 3 weeks. | | | | | |CULTURE RESULT: | | | | | |No fungus isolated at 3 weeks. | | | | + + + + + + + + | Specimen | + + | Swab | + + + + + + + | Performing | Address | City/State/Zipcode | Phone Number | | Organization | | | | + + + + + | [facility] | [address] | [place] [address] | | | [facility] | | | | + + + + + CULTURE, AFB (ALL SPEC TYPES EXCEPT BLOOD) (12/08/2012 4:00 PM PDT) + + + + + ----+ | Component | Value | Ref Range | Performed | Pathologi st | | | | | At | Signature | + + + + + ----+ | SPECIMEN | Swab | | [place] [facility] | | | TYPE | | | [facility] | | | | | | [place] | | + + + + + ----+ | CULTURE | C AFBSource: Swab | | [place] [facility] | | | RESULT | | | [facility] - | | | | Final SMEAR:AFB not | | [place] | | | | detected CULTURE | | | | | | RESULT:No acid fast | | | | | | bacteria isolated at 6 | | | | | | weeks. | | | | | |No acid fast bacteria isolated at 6 weeks. | | | | + + + + + ----+ + + | Specimen | + + | Swab | + + + + + + + | Performing | Address | City/State/Zipcode | Phone Number | | Organization | | | | + + + + + | [facility] | [address] | [place] [address] | | | [place] | | | | + + + + + CULTURE, WOUND DEEP W/ ANAEROBE (12/08/2012 4:00 PM PDT) + + + + + + | Component | Value | Ref Range | Performed | Pathologist | | | | | At | Signature | + + + + + + | SPECIMEN | Swab | | [place] [facility] | | | TYPE | | | [facility] [facility] | | | | | | [place] | | + + + + + + | CULTURE | C Wound DeepSource: Swab | | [place] [facility] | | | RESULT | | | [facility] - | | | | Final GRAM STAIN:No | | [place] | | | | squamous epithelial | | | | | | cells Rare | | | | | | polymorphonuclear cells | | | | | | No organisms seen | | | | | | CULTURE RESULT:No growth | | | | | | No anaerobic organisms | | | | | | isolated. | | | | | |No anaerobic organisms isolated. | | | | + + + + + + + + | Specimen | + + | Swab | + + + + + + + | Performing | Address | City/State/Zipcode | Phone Number | | Organization | | | | + + + + + | [facility] | [address] | [place] [address] | | | [facility] | | | | + + + + + CULTURE, FUNGAL EXCEPT BLOOD, SKIN, HAIR, NAIL (12/08/2012 4:00 PM PDT) + + + + + + | Component | Value | Ref Range | Performed | Pathologist | | | | | At | Signature | + + + + + + | SPECIMEN | Tissue | | [place] [facility] | | | TYPE | | | [facility] | | | | | | [place] | | + + + + + + | CULTURE | C Fungus, OtherSource: | | [place] [facility] | | | RESULT | Tissue | | [facility] - | | | | Final SMEAR:No | | [place] | | | | fungal elements seen | | | | | | CULTURE RESULT:No fungus | | | | | | isolated at 3 weeks. | | | | | |CULTURE RESULT: | | | | | |No fungus isolated at 3 weeks. | | | | + + + + + + + + | Specimen | + + | Tissue | + + + + + + + | Performing | Address | City/State/Zipcode | Phone Number | | Organization | | | | + + + + + | [facility] | [address] | [place] [address] | | | [place] | | | | + + + + + CULTURE, AFB (ALL SPEC TYPES EXCEPT BLOOD) (12/08/2012 4:00 PM PDT) + + + + + ----+ | Component | Value | Ref Range | Performed | Pathologi st | | | | | At | Signature | + + + + + ----+ | SPECIMEN | Tissue | | [place] [facility] | | | TYPE | | | [facility] | | | | | | [place] | | + + + + + ----+ | CULTURE | C AFBSource: Tissue | | [place] [facility] | | | RESULT | | | [facility] - | | | | Final SMEAR:AFB not | | [place] | | | | detected CULTURE | | | | | | RESULT:No acid fast | | | | | | bacteria isolated at 6 | | | | | | weeks. | | | | | |No acid fast bacteria isolated at 6 weeks. | | | | + + + + + ----+ + + | Specimen | + + | Tissue | + + + + + + + | Performing | Address | City/State/Zipcode | Phone Number | | Organization | | | | + + + + + | [facility] | [address] | [place] [address] | | | [place] | | | | + + + + + CULTURE, TISSUE (12/08/2012 4:00 PM PDT) + + + + + + | Component | Value | Ref Range | Performed | Pathologist | | | | | At | Signature | + + + + + + | SPECIMEN | Tissue | | [place] [facility] | | | TYPE | | | [facility] | | | | | | [place] | | + + + + + + | CULTURE | C TissueSource: Tissue | | [place] [facility] | | | RESULT | | | [facility] - | | | | Final GRAM STAIN:No | | [place] | | | | squamous epithelial | | | | | | cells Rare | | | | | | polymorphonuclear cells | | | | | | No organisms seen | | | | | | CULTURE RESULT:No growth | | | | | | No anaerobic organisms | | | | | | isolated. | | | | | |No anaerobic organisms isolated. | | | | + + + + + + + + | Specimen | + + | Tissue | + + + + + + + | Performing | Address | City/State/Zipcode | Phone Number | | Organization | | | | + + + + + | [facility] | [address] | [place] [address] | | | [place] | | | | + + + + + CULTURE, FUNGAL EXCEPT BLOOD, SKIN, HAIR, NAIL (12/08/2012 4:00 PM PDT) + + + + + + | Component | Value | Ref Range | Performed | Pathologist | | | | | At | Signature | + + + + + + | SPECIMEN | Swab | | [place] [facility] | | | TYPE | | | [facility] | | | | | | [place] | | + + + + + + | CULTURE | C Fungus, OtherSource: | | [place] [facility] | | | RESULT | Swab | | [facility] - | | | | Final SMEAR:No | | [place] | | | | fungal elements seen | | | | | | CULTURE RESULT:No fungus | | | | | | isolated at 3 weeks. | | | | | |CULTURE RESULT: | | | | | |No fungus isolated at 3 weeks. | | | | + + + + + + + + | Specimen | + + | Swab | + + + + + + + | Performing | Address | City/State/Zipcode | Phone Number | | Organization | | | | + + + + + | [facility] | [address] | [place] [address] | | | [place] | | | | + + + + + CULTURE, AFB (ALL SPEC TYPES EXCEPT BLOOD) (12/08/2012 4:00 PM PDT) + + + + + ----+ | Component | Value | Ref Range | Performed | Pathologi st | | | | | At | Signature | + + + + + ----+ | SPECIMEN | Swab | | [place] [facility] | | | TYPE | | | [facility] | | | | | | [place] | | + + + + + ----+ | CULTURE | C AFBSource: Swab | | [place] [facility] | | | RESULT | | | [facility] - | | | | Final SMEAR:AFB not | | [place] | | | | detected CULTURE | | | | | | RESULT:No acid fast | | | | | | bacteria isolated at 6 | | | | | | weeks. | | | | | |No acid fast bacteria isolated at 6 weeks. | | | | + + + + + ----+ + + | Specimen | + + | Swab | + + + + + + + | Performing | Address | City/State/Zipcode | Phone Number | | Organization | | | | + + + + + | [facility] | [address] | [place] [address] | | | [place] | | | | + + + + + CULTURE, WOUND DEEP W/ ANAEROBE (12/08/2012 4:00 PM PDT) + + + + + + | Component | Value | Ref Range | Performed | Pathologist | | | | | At | Signature | + + + + + + | SPECIMEN | Swab | | [place] | | | TYPE | | | [facility] | | | | | | [place] | | + + + + + + | CULTURE | C Wound DeepSource: Swab | | [place] [facility] | | | RESULT | | | [facility] - | | | | Final GRAM STAIN:No | | [place] | | | | squamous epithelial | | | | | | cells Rare | | | | | | polymorphonuclear cells | | | | | | No organisms seen | | | | | | CULTURE RESULT:No growth | | | | | | No anaerobic organisms | | | | | | isolated. | | | | | |No anaerobic organisms isolated. | | | | + + + + + + + + | Specimen | + + | Swab | + + + + + + + | Performing | Address | City/State/Zipcode | Phone Number | | Organization | | | | + + + + + | [facility] | [address] | [place] [address] | | | [facility] | | | | + + + + + ANTIBODY SCREEN (12/08/2012 2:08 PM PDT) + + + + + + | Component | Value | Ref Range | Performed | Pathologist | | | | | At | Signature | + + + + + + | Antibody | Negative | | [facility] | | | Screen | | | LABORATORY | | | | | | SERVICES, | | | | | | TRANSFUSION | | | | | | MEDICINE | | + + + + + + + + | Specimen | + + | Blood - Blood | + + + + + + + | Performing | Address | City/State/Zipcode | Phone Number | | Organization | | | | + + + + + | [facility] | [address] | [place] [address] | | | SERVICES, | [address] | | | | TRANSFUSION MEDICINE | | | | + + + + + ABO & RH TYPE (12/08/2012 2:08 PM PDT) + + + + + + | Component | Value | Ref Range | Performed | Pathologist | | | | | At | Signature | + + + + + + | ABO Group | AB | | [facility] | | | | | | LABORATORY | | | | | | SERVICES, | | | | | | TRANSFUSION | | | | | | MEDICINE | | + + + + + + | Rh Type | Positive | | [facility] | | | | | | LABORATORY | | | | | | SERVICES, | | | | | | TRANSFUSION | | | | | | MEDICINE | | + + + + + + + + | Specimen | + + | Blood - Blood | + + + + + + + | Performing | Address | City/State/Zipcode | Phone Number | | Organization | | | | + + + + + | [facility] | [address] | [place] [address] | | | SERVICES, | [address] | | | | TRANSFUSION MEDICINE | | | | + + + + + CAPILLARY BLOOD GLUCOSE (NO CHG), POC (12/08/2012 12:38 PM PDT) + +---------+ + + + | Component | Value | Ref Range | Performed | Pathologist | | | | | At | Signature | + +---------+ + + + | BLOOD | 151 (H) | 60 - 99 mg/dL | [facility] - | | | GLUCOSE, | | [...] + | [facility] | [address] | [place], [place] | | | [facility] | [facility] | [address] | | | TESTS | | | | + + + + + CAPILLARY BLOOD GLUCOSE (NO CHG) POC (12/08/2012 10:24 AM PDT) + +---------+ + + + | Component | Value | Ref Range | Performed | Pathologist | | | | | At | Signature | + +---------+ + + + | BLOOD | 154 (H) | 60 - 99 mg/dL | [...] + + + + | [facility] | [address] | [place], [place] | | | [facility] | [facility] | [address] | | | TESTS | | | | + + + + + HEPARIN, EITHER STANDARD / LMW, BLOOD (12/08/2012 8:10 AM PDT) + +-------+ + + + | Component | Value | Ref Range | Performed | Pathologist | | | | | At | Signature | + +-------+ + + + | HEPARIN, | 0.22 | U/mL | [facility] | | | STD LMW | | | LABORATORY | | | | | | SERVICES, | | | | | | CORE | | + +-------+ + + + + + | Specimen | + + | Blood - Blood | + + + + + | Narrative | Performed At | + + + | Heparin, Either STD/LMW - Therapeutic Ranges: Heparin, | [facility] | | Unfractionated: 0.35 - 0.70 U/mL Enoxaparin, LMWH: 0.70 | LABORATORY | | - 1.20 U/mL Dalteparin, LMWH: 0.70 - 1.20 U/mL | SERVICES, CORE | | Tinzaparin, LMWH: Therapeutic range not established. | | | Preliminary studies suggest range | | | similar to dalteparin. Clinical | | | correlation required. | | | Heparin levels may be unreliable for: | | | Total bilirubin >6.6mg/dL | | | Triglycerides >360 mg/dL | | | or Moderate to Gross Hemolysis | | + + + + + + + + | Performing | Address | City/State/Zipcode | Phone Number | | Organization | | | | + + + + + | [facility] | [address] | [place] [address] | | | SERVICES, CORE | [address] | | | + + + + + CAPILLARY BLOOD GLUCOSE (NO CHG), POC (12/08/2012 8:04 AM PDT) + +---------+ + + + | Component | Value | Ref Range | Performed | Pathologist | | | | | At | Signature | + +---------+ + + + | BLOOD | 154 (H) | 60 - 99 mg/dL | [facility] - | | | GLUCOSE, | | [...] + | [facility] | [address] | [place], [place] | | | [facility] | [address] | [address] | | | TESTS | | | | + + + + + BLOOD GASES, ARTERIAL - LAB (12/08/2012 6:00 AM PDT) + +-------+ + + + | Component | Value | Ref Range | Performed | Pathologist | | | | | At | Signature | + +-------+ + + + | PAT TEMP | | Degree C | [facility] | | | ARTERIAL | | | LABORATORY | | | | | | SERVICES, | | | | | | CORE | | + +-------+ + + + | FIO2 | | | [facility] | | | ARTERIAL | | | LABORATORY | | | | | | SERVICES, | | | | | | CORE | | + +-------+ + + + | PH ARTERIAL | 7.42 | 7.37 - 7.44 | [facility] | | | | | | LABORATORY | | | | | | SERVICES, | | | | | | CORE | | + +-------+ + + + | PCO2 | 41 | 32 - 43 mmHg | [facility] | | | ARTERIAL | | | LABORATORY | | | | | | SERVICES, | | | | | | CORE | | + +-------+ + + + | PO2 | 98 | 72 - 104 mmHg | [facility] | | | ARTERIAL | | | LABORATORY | | | | | | SERVICES, | | | | | | CORE | | + +-------+ + + + | HCO3 | 26 | 21 - 28 mmol/L | [facility] | | | ARTERIAL | | | LABORATORY | | | | | | SERVICES, | | | | | | CORE | | + +-------+ + + + | TOTAL CO2 | 27 | 22 - 28 mmol/L | [facility] | | | ARTERIAL | | | LABORATORY | | | | | | SERVICES, | | | | | | CORE | | + +-------+ + + + | BASE EXCESS | 1.6 | | [facility] | | | ARTERIAL | | | LABORATORY | | | | | | SERVICES, | | | | | | CORE | | + +-------+ + + + | O2 SAT, | 97.4 | 92.0 - 98.0 | [facility] | | | ARTERIAL | | | LABORATORY | | | [...] | + + + + + | [facility] | [address] | [place] [address] | | | SERVICES, CORE | [address] | | | + + + + + CAPILLARY BLOOD GLUCOSE (NO CHG), POC (12/08/2012 5:53 AM PDT) + +---------+ + + + | Component | Value | Ref Range | Performed | Pathologist | | | | | At | Signature | + +---------+ + + + | BLOOD | 126 (H) | 60 - 99 mg/dL | [...] + + + + | [facility] | [address] | [place], [place] | | | [facility] | [address] | [address] | | | TESTS | | | | + + + + + X-RAY PORTABLE CHEST 1 VIEW (12/08/2012 5:49 AM PDT) + + + + + + | Component | Value | Ref Range | Performed | Pathologist | | | | | At | Signature | + + + + + + | X-RAY | DC CHEST 1 VIEW, | | | | | PORTABLE | 12/08/12 05:49:00 | | | | | CHEST 1 | COMPARISON: 12/07/12 | | | | | VIEW | HISTORY: Evaluate | | | | | | retrocardiac opacity | | | | | | FINDINGS: The support | | | | | | equipment is unchanged. | | | | | | The cardiac silhouette | | | | | | is stable.Dense | | | | | | retrocardiac atelectasis | | | | | | is again present, and | | | | | | there is mildlyincreased | | | | | | right basilar | | | | | | atelectasis. There is no | | | | | | new or | | | | | | developingconsolidation | | | | | | or pneumothorax. A small | | | | | | left pleural effusion | | | | | | isredemonstrated. The | | | | | | osseous structures are | | | | | | intact. Wire | | | | | | fragmentagain noted in | | | | | | near the manubrium. | | | | | | Linear lucency | | | | | | projectingvertically | | | | | | along the left aspect of | | | | | | the spine could | | | | | | potentially be askin | | | | | | fold. IMPRESSION: Stable | | | | | | dense retrocardiac | | | | | | atelectasis and mildly | | | | | | increased rightbasilar | | | | | | atelectasis. Developing | | | | | | pneumonia could be | | | | | | considered in thesetting | | | | | | of fever. Stable small | | | | | | left pleural effusion. | | | | | | Attending Radiologists: | | | | | | SONAL STOKES, MDAuthor: | | | | | | Marques Ahuja M.D. I | | | | | | have personally viewed | | | | | | this procedure/exam, | | | | | | reviewed this report,and | | | | | | made changes to it | | | | | | where appropriate. | | | | | | Final/Electronically | | | | | | signed / SONAL STOKES | | | | | | 12/08/2012 11:09 AM | | | | + + + + + + + + | Specimen | + + | | + + + +---------+ + + | Performing | Address | City[facility]State[facility] | Phone Number | | Organization | | | | + +---------+ + + | [facility]MENT OF | | | | | RADIOLOGY | | | | + +---------+ + + CAPILLARY BLOOD GLUCOSE (NO CHG), POC (12/08/2012 4:05 AM PDT) + +---------+ + + + | Component | Value | Ref Range | Performed | Pathologist | | | | | At | Signature | + +---------+ + + + | BLOOD | 131 (H) | 60 - 99 mg/dL | [...] + + + + + | [facility] | [address] | [place], [place] | | | [facility] | [address] | [address] | | | TESTS | | | | + + + + + ATIII ACTIVITY, PLASMA (12/08/2012 3:15 AM PDT) + + + + + + | Component | Value | Ref Range | Performed | Pathologist | | | | | At | Signature | + + + + + + | ATIII | 0.50 (LL) | 0.86 - 1.18 | [facility] | | | ACTIVITY, | | U/mL | LABORATORY | | | PLASMA | | | SERVICES, | | | | | | CORE | | + + + + + + + + | Specimen | + + | Blood - Blood | + + + + + | Narrative | Performed At | + + + | Published reference ranges for children less than 6 months | [facility] | | can be found in the Hemostasis Section general instructions of the | LABORATORY | | [facility] Lab Manual: | SERVICES, CORE | | [email or web address] | | + + + + + + + + | Performing | Address | City/State/Zipcode | Phone Number | | Organization | | | | + + + + + | [facility] | [address] | [place] [address] | | | SERVICES, CORE | [address] | | | + + + + + HEPARIN, EITHER STANDARD / LMW, BLOOD (12/08/2012 2:28 AM PDT) + +-------+ + + + | Component | Value | Ref Range | Performed | Pathologist | | | | | At | Signature | + +-------+ + + + | HEPARIN, | 0.18 | U/mL | [facility] | | | STD LMW | | | LABORATORY | | | | | | SERVICES, | | | | | | CORE | | + +-------+ + + + + + | Specimen | + + | Blood - Blood | + + + + + | Narrative | Performed At | + + + | Heparin, Either STD/LMW - Therapeutic Ranges: Heparin, | [facility] | | Unfractionated: 0.35 - 0.70 U/mL Enoxaparin, LMWH: 0.70 | LABORATORY | | - 1.20 U/mL Dalteparin, LMWH: 0.70 - 1.20 U/mL | SERVICES, CORE | | Tinzaparin, LMWH: Therapeutic range not established. | | | Preliminary studies suggest range | | | similar to dalteparin. Clinical | | | correlation required. | | | Heparin levels may be unreliable for: | | | Total bilirubin >6.6mg/dL | | | Triglycerides >360 mg/dL | | | or Moderate to Gross Hemolysis | | + + + + + + + + | Performing | Address | City/State/Zipcode | Phone Number | | Organization | | | | + + + + + | [facility] | [address] | [place] [address] | | | SERVICES, CORE | [address] | | | + + + + + CAPILLARY BLOOD GLUCOSE (NO CHG), POC (12/08/2012 2:04 AM PDT) + +---------+ + + + | Component | Value | Ref Range | Performed | Pathologist | | | | | At | Signature | + +---------+ + + + | BLOOD | 133 (H) | 60 - 99 mg/dL | [...] + + + + | [facility] | [address] | [place], [place] | | | [facility] | [address] | [address] | | | TESTS | | | | + + + + + MAGNESIUM, PLASMA (12/08/2012 2:00 AM PDT) + +---------+ + + + | Component | Value | Ref Range | Performed | Pathologist | | | | | At | Signature | + +---------+ + + + | MAGNESIUM,P | 3.1 (H) | 1.8 - 2.5 mg/dL | [facility] [...] + | [facility] | [address] | [place] [address] | | | SERVICES, CORE | [address] | | | + + + + + CBC AND AUTO DIFF (12/08/2012 2:00 AM PDT) + + + + + + | Component | Value | Ref Range | Performed | Pathologist | | | | | At | Signature | + + + + + + | WBC COUNT | 17.2 (H) | 4.4 - 11.0 K/cu | [facility] | | | | | mm | LABORATORY | | | | | | SERVICES, | | | | | | CORE | | + + + + + + | RED CELL | 2.78 (L) | 4.50 - 5.90 | [facility] | | | COUNT | | M/cu mm | LABORATORY | | | | | | SERVICES, | | | | | | CORE | | + + + + + + | HEMOGLOBIN | 8.7 (L) | 13.5 - 17.5 | [facility] | | | | | g/dL | LABORATORY | | | | | | SERVICES, | | | | | | CORE | | + + + + + + | HEMATOCRIT | 25.8 (L) | 41.0 - 53.0 % | [facility] | | | | | | LABORATORY | | | | | | SERVICES, | | | | | | CORE | | + + + + + + | MCV | 92.5 | 80.0 - 96.0 fL | [facility] | | | | | | LABORATORY | | | | | | SERVICES, | | | | | | CORE | | + + + + + + | MCHC | 33.9 | 33.4 - 35.5 | [facility] | | | | | g/dL | LABORATORY | | | | | | SERVICES, | | | | | | CORE | | + + + + + + | RDW | 15.6 (H) | 11.5 - 15.0 % | [facility] | | | | | | LABORATORY | | | | | | SERVICES, | | | | | | CORE | | + + + + + + | PLATELET | 209 | 150 - 400 K/cu | [facility] | | | COUNT | | mm | LABORATORY | | | | | | SERVICES, | | | | | | CORE | | + + + + + + | NEUTROPHIL | 82 (H)Comment: Tameka | 50 - 70 % | [facility] | | | % | bodies present. < or | | LABORATORY | | | | =10% bands seen on scan. | | SERVICES, | | | | Occasional | | CORE | | | | metamyelocyte seen on | | | | | | scan. | | | | + + + + + + | LYMPHOCYTE | 8 (L) | 18 - 42 % | [facility] | | | % | | | LABORATORY | | | | | | SERVICES, | | | | | | CORE | | + + + + + + | MONOCYTE % | 7 | 2 - 8 % | [facility] | | | | | | LABORATORY | | | | | | SERVICES, | | | | | | CORE | | + + + + + + | EOS % | 3 | 1 - 3 % | [facility] | | | | | | LABORATORY | | | | | | SERVICES, | | | | | | CORE | | + + + + + + | BASO % | 0 | 0 - 2 % | [facility] | | | | | | LABORATORY | | | | | | SERVICES, | | | | | | CORE | | + + + + + + | NEUTROPHIL | 14.1 (H) | 1.8 - 7.7 K/cu | [facility] | | | # | | mm | LABORATORY | | | | | | SERVICES, | | | | | | CORE | | + + + + + + | LYMPHOCYTE | 1.3 | 1.0 - 4.8 K/cu | [facility] | | | # | | mm | LABORATORY | | | | | | SERVICES, | | | | | | CORE | | + + + + + + | MONOCYTE # | 1.3 (H) | 0.0 - 0.8 K/cu | [facility] | | | | | mm | LABORATORY | | | | | | SERVICES, | | | | | | CORE | | + + + + + + | EOS # | 0.5 | 0.0 - 0.5 K/cu | [facility] | | | | | mm | LABORATORY | | | | | | SERVICES, | | | | | | CORE | | + + + + + + | BASO # | [...] Performed At | + + + | Final automated differential report. Smear reviewed. | [facility] | | | LABORATORY | | | [facility] | + + + + + + + + | Performing | Address | City/State/Zipcode | Phone Number | | Organization | | | | + + + + + | [facility] | [address] | [place] [address] | | | [facility] [place] | [address] | | | + + + + + LIVER SET (AST,ALT,BILI TOTAL,BILI DIRECT,ALK PHOS,ALB,PROT TOTAL) (12/08/2012 2:00 AM PDT ) + + + + + + | Component | Value | Ref Range | Performed | Pathologist | | | | | At | Signature | + + + + + + | ALBUMIN, | 2.2 (L) | 3.5 - 4.7 g/dL | [facility] | | | PLASMA | | | LABORATORY | | | (LAB) | | | SERVICES, | | | | | | CORE | | + + + + + + | BILIRUBIN | 5.4 (H) | 0.3 - 1.2 mg/dL | [facility] | | | TOTAL | | | LABORATORY | | | | | | SERVICES, | | | | | | CORE | | + + + + + + | BILIRUBIN | 4.3 (H) | 0.0 - 0.3 mg/dL | [facility] | | | DIRECT | | | LABORATORY | | | | | | SERVICES, | | | | | | CORE | | + + + + + + | ALK PHOS | 179 (H) | 56 - 119 U/L | [facility] | | | | | | LABORATORY | | | | | | SERVICES, | | | | | | CORE | | + + + + + + | AST(SGOT) | 1,268 (H) | 15 - 41 U/L | [facility] | | | | | | LABORATORY | | | | | | SERVICES, | | | | | | CORE | | + + + + + + | ALT (SGPT) | 3,113 (H) | 12 - 60 U/L | [facility] | | | | | | LABORATORY | | | | | | SERVICES, | | | | | | CORE | | + + + + + + | TOTAL | 5.5 (L) | 6.1 - 7.9 g/dL | [facility] | | | PROTEIN, | | | LABORATORY | | | PLASMA | | | SERVICES, | | | (LAB) | | | CORE | | + + + + + + | AST CMNT | No Hemo | | [facility] | | | | | | LABORATORY | | | | | | SERVICES, | | | | | | CORE | | + + + + + + | BILI T CMNT | No Hemo | | [facility] | | | | | | LABORATORY | | | | | | SERVICES, | | | | | | CORE | | + + + + + + | BILI D CMNT | No Hemo | | [facility] [...] | + + + + + | [facility] | [id number] | [place] [address] | | | SERVICES, CORE | [address] | | | + + + + + RENAL FUNCTION SET (NA,K,CL,CO2,BUN,CREAT,GLUC,CA,PHOS,ALB ) (12/08/2012 2:00 AM PDT) + + + + + + | Component | Value | Ref Range | Performed | Pathologist | | | | | At | Signature | + + + + + + | GLUCOSE, | 112 (H) | 60 - 99 mg/dL | [facility] | | | PLASMA | | | LABORATORY | | | (LAB) | | | TANIA, | | | | | | CORE | | + + + + + + | BUN, PLASMA | 115 (H) | 6 - 20 mg/dL | [facility] | | | (LAB) | | | LABORATORY | | | | | | SERVICES, | | | | | | CORE | | + + + + + + | CREATININE | 6.32 (H) | 0.70 - 1.30 | [facility] | | | PLASMA | | mg/dL | LABORATORY | | | (LAB) | | | SERVICES, | | | | | | CORE | | + + + + + + | SODIUM, | 147 (H) | 136 - 145 | [facility] | | | PLASMA | | mmol/L | LABORATORY | | | (LAB) | | | SERVICES, | | | | | | CORE | | + + + + + + | POTASSIUM, | 4.7 | 3.4 - 5.0 | [facility] | | | PLASMA | | mmol/L | LABORATORY | | | (LAB) | | | SERVICES, | | | | | | CORE | | + + + + + + | CHLORIDE, | 106 | 97 - 108 mmol/L | [facility] | | | PLASMA | | | LABORATORY | | | (LAB) | | | SERVICES, | | | | | | CORE | | + + + + + + | TOTAL CO2, | 27 | 21 - 32 mmol/L | [facility] | | | PLASMA | | | LABORATORY | | | (LAB) | | | SERVICES, | | | | | | CORE | | + + + + + + | CALCIUM, | 7.9 (L) | 8.6 - 10.2 | [facility] | | | PLASMA | | mg/dL | LABORATORY | | | (LAB) | | | SERVICES, | | | | | | CORE | | + + + + + + | ALBUMIN, | 2.2 (L) | 3.5 - 4.7 g/dL | [facility] | | | PLASMA | | | LABORATORY | | | (LAB) | | | SERVICES, | | | | | | CORE | | + + + + + + | PHOSPHORUS, | 9.0 (H) | 2.4 - 4.7 mg/dL | [facility] | | | PLASMA [...] + + + | ANION GAP | 14 (H) | 4 - 11 mmol/L | [facility] | | | | | | LABORATORY | | | | | | SERVICES, | | | | | | CORE | | + + + + + + | ANION | 18 (H) | 4 - 11 mmol/L | [...] | + + + + + | [facility] | [address] | [place] [address] | | | SERVICES, CORE | [address] | | | + + + + + VANCOMYCIN, RANDOM (12/08/2012 2:00 AM PDT) + +-------+ + + + | Component | Value | Ref Range | Performed | Pathologist | | | | | At | Signature | + +-------+ + + + | VANCOMYCIN, | 20.5 | 5.0 - 50.0 | [facility] | | | RANDOM | | ug/mL | LABORATORY | | | | | [...] | + + + + + | [facility] | [address] | [place] [address] | | | TANIA, TOI | [address] | | | + + + + + CAPILLARY BLOOD GLUCOSE (NO CHG), POC (12/07/2012 11:59 PM PDT) + +---------+ + + + | Component | Value | Ref Range | Performed | Pathologist | | | | | At | Signature | + +---------+ + + + | BLOOD | 122 (H) | 60 - 99 mg/dL | [...] | [facility] | [address] | [place], [place] | | | KAILYN MAZA OF CARE | [facility] | [address] | | | TESTS | | | | + + + + + CAPILLARY BLOOD GLUCOSE (NO CHG), POC (12/07/2012 10:08 PM PDT) + +---------+ + + + | Component | Value | Ref Range | Performed | Pathologist | | | | | At | Signature | + +---------+ + + + | BLOOD | 127 (H) | 60 - 99 mg/dL | [facility] - | | | GLUCOSE, | | [...] | [facility] | [address] | [place], [place] | | | KAILYN MAZA OF CARE | [address] | [address] | | | TESTS | | | | + + + + + CAPILLARY BLOOD GLUCOSE (NO CHG), POC (12/07/2012 8:03 PM PDT) + +---------+ + + + | Component | Value | Ref Range | Performed | Pathologist | | | | | At | Signature | + +---------+ + + + | BLOOD | 130 (H) | 60 - 99 mg/dL | [...] + | [facility] | [address] | [place], [place] | | | KAILYN MAZA OF JOHN | [facility] | [address] | | | TESTS | | | | + + + + + HEPARIN, EITHER STANDARD / LMW, BLOOD (12/07/2012 8:00 PM PDT) + +-------+ + + + | Component | Value | Ref Range | Performed | Pathologist | | | | | At | Signature | + +-------+ + + + | HEPARIN, | 0.10 | U/mL | [facility] | | | STD LMW | | | LABORATORY | | | | | | SERVICES, | | | | | | CORE | | + +-------+ + + + + + | Specimen | + + | Blood - Blood | + + + + + | Narrative | Performed At | + + + | Heparin, Either STD/LMW - Therapeutic Ranges: Heparin, | [facility] | | Unfractionated: 0.35 - 0.70 U/mL Enoxaparin, LMWH: 0.70 | LABORATORY | | - 1.20 U/mL Dalteparin, LMWH: 0.70 - 1.20 U/mL | SERVICES, CORE | | Tinzaparin, LMWH: Therapeutic range not established. | | | Preliminary studies suggest range | | | similar to dalteparin. Clinical | | | correlation required. | | | Heparin levels may be unreliable for: | | | Total bilirubin >6.6mg/dL | | | Triglycerides >360 mg/dL | | | or Moderate to Gross Hemolysis | | + + + + + + + + | Performing | Address | City/State/Zipcode | Phone Number | | Organization | | | | + + + + + | [facility] | [address] | [place] [address] | | | TANIA, TOI | [address] | | | + + + + + CAPILLARY BLOOD GLUCOSE (NO CHG), POC (12/07/2012 6:53 PM PDT) + +---------+ + + + | Component | Value | Ref Range | Performed | Pathologist | | | | | At | Signature | + +---------+ + + + | BLOOD | 142 (H) | 60 - 99 mg/dL | [...] | [facility] | [address] | [place], [place] | | | KAILYN MAZA OF CARE | [facility] | [address] | | | TESTS | | | | + + + + + CAPILLARY BLOOD GLUCOSE (NO CHG), POC (12/07/2012 6:08 PM PDT) + +---------+ + + + | Component | Value | Ref Range | Performed | Pathologist | | | | | At | Signature | + +---------+ + + + | BLOOD | 141 (H) | 60 - 99 mg/dL | [...] + | [facility] | [address] | [place], [place] | | | [place] POINT OF CARE | [address] | [address] | | | TESTS | | | | + + + + + CAPILLARY BLOOD GLUCOSE (NO CHG), POC (12/07/2012 5:05 PM PDT) + +---------+ + + + | Component | Value | Ref Range | Performed | Pathologist | | | | | At | Signature | + +---------+ + + + | BLOOD | 138 (H) | 60 - 99 mg/dL | [...] + + + + | [facility] | [address] | [place], [place] | | | KAILYN MAZA OF CARE | [address] | [address] | | | TESTS | | | | + + + + + CAPILLARY BLOOD GLUCOSE (NO CHG), POC (12/07/2012 4:14 PM PDT) + +---------+ + + + | Component | Value | Ref Range | Performed | Pathologist | | | | | At | Signature | + +---------+ + + + | BLOOD | 142 (H) | 60 - 99 mg/dL | [...] | [facility] | [address] | [place], [place] | | | KAILYN MAZA OF [facility] | [address] | [address] | | | TESTS | | | | + + + + + ATIII ACTIVITY, PLASMA (12/07/2012 4:09 PM PDT) + + + + + + | Component | Value | Ref Range | Performed | Pathologist | | | | | At | Signature | + + + + + + | ATIII | 0.64 (LL) | 0.86 - 1.18 | [facility] | | | ACTIVITY, | | U/mL | LABORATORY | | | PLASMA | | | SERVICES, | | | | | | CORE | | + + + + + + + + | Specimen | + + | Blood - Blood | + + + + + | Narrative | Performed At | + + + | Published reference ranges for children less than 6 months | [facility] | | can be found in the Hemostasis Section general instructions of the | LABORATORY | | [facility] Lab Manual: | SERVICES, CORE | | [email or web address] | | + + + + + + + + | Performing | Address | City/State/Zipcode | Phone Number | | Organization | | | | + + + + + | [facility] | [address] | [place] [address] | | | SERVICES, CORE | [address] | | | + + + + + MAGNESIUM, PLASMA (12/07/2012 4:09 PM PDT) + +---------+ + + + | Component | Value | Ref Range | Performed | Pathologist | | | | | At | Signature | + +---------+ + + + | MAGNESIUM,P | 3.0 (H) | 1.8 - 2.5 mg/dL | [facility] [...] | + + + + + | [facility] | [address] | [place] [address] | | | SERVICES, CORE | [address] | | | + + + + + RENAL FUNCTION SET (NA,K,CL,CO2,BUN,CREAT,GLUC,CA,PHOS,ALB ) (12/07/2012 4:09 PM PDT) + + + + + + | Component | Value | Ref Range | Performed | Pathologist | | | | | At | Signature | + + + + + + | GLUCOSE, | 122 (H) | 60 - 99 mg/dL | [facility] | | | PLASMA | | | LABORATORY | | | (LAB) | | | SERVICES, | | | | | | CORE | | + + + + + + | BUN, PLASMA | 118 (H) | 6 - 20 mg/dL | [facility] | | | (LAB) | | | LABORATORY | | | | | | SERVICES, | | | | | | CORE | | + + + + + + | CREATININE | 6.44 (H) | 0.70 - 1.30 | [facility] | | | PLASMA | | mg/dL | LABORATORY | | | (LAB) | | | SERVICES, | | | | | | CORE | | + + + + + + | SODIUM, | 146 (H) | 136 - 145 | [facility] | | | PLASMA | | mmol/L | LABORATORY | | | (LAB) | | | SERVICES, | | | | | | CORE | | + + + + + + | POTASSIUM, | 4.5 | 3.4 - 5.0 | [facility] | [...] + + + + | CALCIUM, | 7.9 (L) | 8.6 - 10.2 | [facility] | | | PLASMA | | mg/dL | LABORATORY | | | (LAB) | | | SERVICES, | | | | | | CORE | | + + + + + + | ALBUMIN, | 2.2 (L) | 3.5 - 4.7 g/dL | [facility] | | | PLASMA | | | LABORATORY | | | (LAB) | | | SERVICES, | | | | | | CORE | | + + + + + + | PHOSPHORUS, | 9.6 (H) | 2.4 - 4.7 mg/dL | [facility] | | | PLASMA [...] + + + | ANION GAP | 16 (H) | 4 - 11 mmol/L | [facility] | | | | | | LABORATORY | | | | | | SERVICES, | | | | | | CORE | | + + + + + + | ANION | 20 (H) | 4 - 11 mmol/L | [...] | + + + + + | [facility] | [address] | [place] [address] | | | SERVICES, CORE | [address] | | | + + + + + CAPILLARY BLOOD GLUCOSE (NO CHG), POC (12/07/2012 3:03 PM PDT) + +---------+ + + + | Component | Value | Ref Range | Performed | Pathologist | | | | | At | Signature | + +---------+ + + + | BLOOD | 129 (H) | 60 - 99 mg/dL | [...] + + + + | [facility] | [address] | [place], [place] | | | KAILYN MAZA OF CARE | [facility] | [address] | | | TESTS | | | | + + + + + CAPILLARY BLOOD GLUCOSE (NO CHG), POC (12/07/2012 2:13 PM PDT) + +---------+ + + + | Component | Value | Ref Range | Performed | Pathologist | | | | | At | Signature | + +---------+ + + + | BLOOD | 146 (H) | 60 - 99 mg/dL | [facility] - | | | GLUCOSE, | | [...] + + + + | [facility] | [address] | [place], [place] | | | SHA[facility] POINT OF CARE | [address] | [address] | | | TESTS | | | | + + + + + CAPILLARY BLOOD GLUCOSE (NO CHG), POC (12/07/2012 1:14 PM PDT) + +---------+ + + + [...] + | [facility] | [address] | [place], [place] | | | KAILYN MAZA OF JOHN | [facility] | [address] | | | TESTS | | | | + + + + + CAPILLARY BLOOD GLUCOSE (NO CHG), POC (12/07/2012 12:07 PM PDT) + +---------+ + + + | Component | Value | Ref Range | Performed | Pathologist | | | | | At | Signature | + +---------+ + + + | BLOOD | 141 (H) | 60 - 99 mg/dL | [...] | [facility] | [address] | [place], [place] | | | [place]INT OF [facility] | [facility] | [address] | | | TESTS | | | | + + + + + HEPARIN, EITHER STANDARD / LMW, BLOOD (12/07/2012 11:59 AM PDT) + +-------+ + + + | Component | Value | Ref Range | Performed | Pathologist | | | | | At | Signature | + +-------+ + + + | HEPARIN, | <0.10 | U/mL | [facility] | | | STD LMW | | | LABORATORY | | | | | | SERVICES, | | | | | | CORE | | + +-------+ + + + + + | Specimen | + + | Blood - Blood | + + + + + | Narrative | Performed At | + + + | Heparin, Either STD/LMW - Therapeutic Ranges: Heparin, | [facility] | | Unfractionated: 0.35 - 0.70 U/mL Enoxaparin, LMWH: 0.70 | LABORATORY | | - 1.20 U/mL Dalteparin, LMWH: 0.70 - 1.20 U/mL | SERVICES, CORE | | Tinzaparin, LMWH: Therapeutic range not established. | | | Preliminary studies suggest range | | | similar to dalteparin. Clinical | | | correlation required. | | | Heparin levels may be unreliable for: | | | Total bilirubin >6.6mg/dL | | | Triglycerides >360 mg/dL | | | or Moderate to Gross Hemolysis | | + + + + + + + + | Performing | Address | City/State/Zipcode | Phone Number | | Organization | | | | + + + + + | [facility] | [address] | [place] [address] | | | SERVICES, CORE | [address] | | | + + + + + CAPILLARY BLOOD GLUCOSE (NO CHG), POC (12/07/2012 10:57 AM PDT) + +---------+ + + + | Component | Value | Ref Range | Performed | Pathologist | | | | | At | Signature | + +---------+ + + + | BLOOD | 149 (H) | 60 - 99 mg/dL | [facility] - | | | GLUCOSE, | | [...] + | [facility] | [address] | [place], [place] | | | KAILYN MAZA OF [facility] | [address] | [address] | | | TESTS | | | | + + + + + CAPILLARY BLOOD GLUCOSE (NO CHG), POC (12/07/2012 9:36 AM PDT) + +---------+ + + + | Component | Value | Ref Range | Performed | Pathologist | | | | | At | Signature | + +---------+ + + + | BLOOD | 155 (H) | 60 - 99 mg/dL | [...] + + + + | [facility] | [address] | [place], [place] | | | KAILYN MAZA OF CARE | [address] | [address] | | | TESTS | | | | + + + + + CAPILLARY BLOOD GLUCOSE (NO CHG), POC (12/07/2012 8:32 AM PDT) + +---------+ + + + | Component | Value | Ref Range | Performed | Pathologist | | | | | At | Signature | + +---------+ + + + | BLOOD | 157 (H) | 60 - 99 mg/dL | [...] + | [facility] | [address] | [place], [place] | | | [place] OF [facility] | [address] | [address] | | | TESTS | | | | + + + + + SODIUM TOTAL, URINE (12/07/2012 8:21 AM PDT) + +--------+ + + + | Component | Value | Ref Range | Performed | Pathologist | | | | | At | Signature | + +--------+ + + + | SODIUM CONC | 114 | mmol/L | [facility] | | | URINE | | | LABORATORY | | | | | | SERVICES, | | | | | | CORE | | + +--------+ + + + | URINE | Random | (none) | [facility] | | | INTERVAL | | | LABORATORY | | | | | | SERVICES, | | | | | | CORE | | + +--------+ + + + | URINE | Spot | (none) | [facility] | | | VOLUME | | | LABORATORY | | | | | | SERVICES, | | | | | | CORE | | + +--------+ + + + + + | Specimen | + + | Urine - Urine | + + + + + | Narrative | Performed At | + + + | Normal values based on 24 hour collection interval. Patient | [facility] | | results are calculated from actual collection interval and volume. | LABORATORY | | | SERVICES, CORE | + + + + + + + + | Performing | Address | City/State/Zipcode | Phone Number | | Organization | | | | + + + + + | [facility] | [address] | [place] [address] | | | SERVICES, CORE | [address] | | | + + + + + CREATININE, URINE (12/07/2012 8:21 AM PDT) + +--------+ + + + | Component | Value | Ref Range | Performed | Pathologist | | | | | At | Signature | + +--------+ + + + | CREATININE | 22.39 | mg/dL | [facility] | | | CONC UR | | | LABORATORY | | | | | | SERVICES, | | | | | | CORE | | + +--------+ + + + | URINE | Random | (none) | [facility] | | | INTERVAL | | | LABORATORY | | | | | | SERVICES, | | | | | | CORE | | + +--------+ + + + | URINE | Spot | (none) | [facility] | | | VOLUME | | | LABORATORY | | | | | | SERVICES, | | | | | | CORE | | + +--------+ + + + + + | Specimen | + + | Urine - Urine | + + + + + | Narrative | Performed At | + + + | Normal values based on 24 hour collection interval. Patient | [facility] | | results are calculated from actual collection interval and volume. | LABORATORY | | | TOI MARIN | + + + + + + + + | Performing | Address | City/State/Zipcode | Phone Number | | Organization | | | | + + + + + | [facility] | [address] | [place] [address] | | | TOI MARIN | [address] | | | + + + + + ATIII ACTIVITY, PLASMA (12/07/2012 8:21 AM PDT) + + + + + + | Component | Value | Ref Range | Performed | Pathologist | | | | | At | Signature | + + + + + + | ATIII | 0.36 (LL) | 0.86 - 1.18 | [facility] | | | ACTIVITY, | | U/mL | LABORATORY | | | PLASMA | | | SERVICES, | | | | | | CORE | | + + + + + + + + | Specimen | + + | Blood - Blood | + + + + + | Narrative | Performed At | + + + | Published reference ranges for children less than 6 months | [facility] | | can be found in the Hemostasis Section general instructions of the | LABORATORY | | [facility] Lab Manual: | TANIA CORE | | [email or web address] | | + + + + + + + + | Performing | Address | City/State[facility] | Phone Number | | Organization | | | | + + + + + | [facility] | [address] | [place] [address] | | | SERVICES, TOI | [address] | | | + + + + + RENAL FUNCTION SET (NA,K,CL,CO2,BUN,CREAT,GLUC,CA,PHOS,ALB ) (12/07/2012 8:21 AM PDT) + + + + + + | Component | Value | Ref Range | Performed | Pathologist | | | | | At | Signature | + + + + + + | GLUCOSE, | 133 (H) | 60 - 99 mg/dL | [facility] | | | PLASMA | | | LABORATORY | | | (LAB) | | | SERVICES, | | | | | | CORE | | + + + + + + | BUN, PLASMA | 111 (H) | 6 - 20 mg/dL | [facility] | | | (LAB) | | | LABORATORY | | | | | | SERVICES, | | | | | | CORE | | + + + + + + | CREATININE | 6.40 (H) | 0.70 - 1.30 | [facility] | | | PLASMA | | mg/dL | LABORATORY | | | (LAB) | | | SERVICES, | | | | | | CORE | | + + + + + + | SODIUM, | 145 | 136 - 145 | [facility] | | | PLASMA | | mmol/L | LABORATORY | | | (LAB) | | | SERVICES, | | | | | | CORE | | + + + + + + | POTASSIUM, | 4.6 | 3.4 - 5.0 | [facility] | [...] + + + | TOTAL CO2, | 27 | 21 - 32 mmol/L | [facility] | | | PLASMA | | | LABORATORY | | | (LAB) | | | SERVICES, | | | | | | CORE | | + + + + + + | CALCIUM, | 7.7 (L) | 8.6 - 10.2 | [facility] | | | PLASMA | | mg/dL | LABORATORY | | | (LAB) | | | SERVICES, | | | | | | CORE | | + + + + + + | ALBUMIN, | 2.2 (L) | 3.5 - 4.7 g/dL | [facility] | | | PLASMA | | | LABORATORY | | | (LAB) | | | SERVICES, | | | | | | CORE | | + + + + + + | PHOSPHORUS, | 8.6 (H) | 2.4 - 4.7 mg/dL | [facility] | | | PLASMA [...] + + + + | ANION | 17 (H) | 4 - 11 mmol/L | [...] + | [facility] | [address] | [place] [address] | | | SERVICES, CORE | [address] | | | + + + + + URINE, MICROSCOPIC EXAM (12/07/2012 8:21 AM PDT) + +---------+ + + + | Component | Value | Ref Range | Performed | Pathologist | | | | | At | Signature | + +---------+ + + + | RED CELLS | 1 | 0 - 3 /hpf | [facility] | | | | | | LABORATORY | | | | | | SERVICES, | | | | | | CORE | | + +---------+ + + + | WHITE CELLS | 2 | 0 - 5 /hpf | [facility] | | | | | | LABORATORY | | | | | | SERVICES, | | | | | | CORE | | + +---------+ + + + | BACTERIA | None | None /hpf | [facility] | | | | | | LABORATORY | | | | | | SERVICES, | | | | | | CORE | | + +---------+ + + + | YEAST (LAB) | None | None /hpf | [facility] | | | | | | LABORATORY | | | | | | SERVICES, | | | | | | CORE | | + +---------+ + + + | SQUAMOUS | None | None /hpf | [facility] | | | EPITHELIAL | | | LABORATORY | | | | | | SERVICES, | | | | | | CORE | | + +---------+ + + + | MUCOUS | Few (A) | None /hpf | [facility] | | | | | | LABORATORY | | | | | | SERVICES, | | | | | | CORE | | + +---------+ + + + | TRICHOMONAS | None | None /hpf | [facility] | | | | | | LABORATORY | | | | | | SERVICES, | | | | | | CORE | | + +---------+ + + + | NON-SQUAMOU | None | None /hpf | [facility] | | | S EPITH | | | LABORATORY | | | | | | SERVICES, | | | | | | CORE | | + +---------+ + + + | HYALINE | 0 | 0 - 2 /lpf | [facility] | | | CASTS | | | LABORATORY | | | | | | SERVICES, | | | | | | CORE | | + +---------+ + + + | GRANULAR | 0 | 0 - 2 /lpf | [facility] | | | CASTS | | | LABORATORY | | | | | | SERVICES, | | | | | | CORE | | + +---------+ + + + | CELLULAR | 0 | <=0 /lpf | [facility] | | | CASTS | | | LABORATORY | | | | | | SERVICES, | | | | | | CORE | | + +---------+ + + + | TRIPLE P04 | None | None /hpf | [facility] | | | CRYSTALS | | | LABORATORY | | | | | | SERVICES, | | | | | | CORE | | + +---------+ + + + | CALCIUM | None | None /hpf | [facility] | | | OXALATE | | | LABORATORY | | | DIONISIO | | | SERVICES, | | | | | | CORE | | + +---------+ + + + | URIC ACID | None | None /hpf | [facility] | | | CRYSTALS | | | LABORATORY | | | | | | SERVICES, | | | | | | CORE | | + +---------+ + + + | AMORPHOUS | None | None /hpf | [facility] | | | CRYSTALS | | | LABORATORY | | | [...] + | [facility] | [address] | [place] [address] | | | SERVICES, CORE | [address] | | | + + + + + BLOOD GASES, ARTERIAL - LAB (12/07/2012 6:41 AM PDT) + +---------+ + + + | Component | Value | Ref Range | Performed | Pathologist | | | | | At | Signature | + +---------+ + + + | PAT TEMP | 37.2 | Degree C | [facility] | | | ARTERIAL | | | LABORATORY | | | | | | SERVICES, | | | | | | CORE | | + +---------+ + + + | FIO2 | 0.45 | | [facility] | | | ARTERIAL | | | LABORATORY | | | | | | SERVICES, | | | | | | CORE | | + +---------+ + + + | PH ARTERIAL | 7.43 | 7.37 - 7.44 | [facility] | | | | | | LABORATORY | | | | | | SERVICES, | | | | | | CORE | | + +---------+ + + + | PCO2 | 40 | 32 - 43 mmHg | [facility] | | | ARTERIAL | | | LABORATORY | | | | | | SERVICES, | | | | | | CORE | | + +---------+ + + + | PO2 | 110 (H) | 72 - 104 mmHg | [facility] | | | ARTERIAL | | | LABORATORY | | | | | | SERVICES, | | | | | | CORE | | + +---------+ + + + | HCO3 | 26 | 21 - 28 mmol/L | [facility] | | | ARTERIAL | | | LABORATORY | | | | | | SERVICES, | | | | | | CORE | | + +---------+ + + + | TOTAL CO2 | 27 | 22 - 28 mmol/L | [facility] | | | ARTERIAL | | | LABORATORY | | | | | | SERVICES, | | | | | | CORE | | + +---------+ + + + | BASE EXCESS | 1.8 | | [facility] | | | ARTERIAL | | | LABORATORY | | | | | | SERVICES, | | | | | | CORE | | + +---------+ + + + | O2 SAT, | 97.8 | 92.0 - 98.0 | [facility] | | | ARTERIAL | | | LABORATORY | | | [...] | + + + + + | [facility] | [address] | [place] [address] | | | SERVICES, CORE | [address] | | | + + + + + CAPILLARY BLOOD GLUCOSE (NO CHG), POC (12/07/2012 6:35 AM PDT) + +---------+ + + + | Component | Value | Ref Range | Performed | Pathologist | | | | | At | Signature | + +---------+ + + + | BLOOD | 143 (H) | 60 - 99 mg/dL | [facility] - | | | GLUCOSE, | | [...] + | [facility] | 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 Status post | | | | | | sternotomy wire removal | | | | | | COMPARISON: Yesterday | | | | | | FINDINGS: A solitary | | | | | | wire fragment remains in | | | | | | place. The remaining | | | | | | supportequipment is | | | | | | unchanged. The cardiac | | | | | | silhouette is stable. | | | | | | Denseretrocardiac | | | | | | atelectasis with small | | | | | | left pleural effusion | | | | | | persists.Scattered right | | | | | | lung atelectasis are | | | | | | slightly improving. | | | | | | There is | | | | | | nopneumothorax. | | | | | | IMPRESSION: Stable dense | | | | | | retrocardiac | | | | | | atelectasis. Slightly | | | | | | improving scattered | | | | | | right lung atelectasis. | | | | | | Attending Radiologists: | | | | | | SHAY FABIAN MDAuthor: | | | | | | SHAY FABIAN MD I | | | | | | have personally viewed | | | | | | this procedure/exam, | | | | | | reviewed this report,and | | | | | | made changes to it | | | | | | where appropriate. | | | | | | Final/Electronically | | | | | | signed / SHAY | | | | | | RUI 12/07/2012 10:08 AM | | | | | | | [...] | | | + +---------+ + + LACTIC ACID (12/07/2012 4:31 AM PDT) + +-------+ + + + | Component | Value | Ref Range | Performed | Pathologist | | | | | At | Signature | + +-------+ + + + | LACTATE | 2.9 | mmol/L | [facility] | | | | | | LABORATORY | | | | | | SERVICES, | | | | | | CORE | | + +-------+ + + + + + | Specimen | + + | Blood - Blood | + + + + + | Narrative | Performed At | + + + | Reference Range: Venous blood: 0.5 - 2.2 mmol/L | [facility] | | Arterial blood: 0.5 - 1.6 mmol/L | LABORATORY | | | SERVICES, CORE | + + + + + + + + | Performing | Address | City/State/Zipcode | Phone Number | | Organization | | | | + + + + + | [facility] | [address] | [place] [address] | | | SERVICES, CORE | [address] | | | + + + + + CAPILLARY BLOOD GLUCOSE (NO CHG), POC (12/07/2012 4:30 AM PDT) + +---------+ + + + | Component | Value | Ref Range | Performed | Pathologist | | | | | At | Signature | + +---------+ + + + | BLOOD | 160 (H) | 60 - 99 mg/dL | [facility] - | | | GLUCOSE, | | [...] + | [facility] | [address] | [place], [place] | | | [facility] | [address] | [address] | | | TESTS | | | | + + + + + POTASSIUM, PLASMA (12/07/2012 4:26 AM PDT) + +---------+ + + + | Component | Value | Ref Range | Performed | Pathologist | | | | | At | Signature | + +---------+ + + + | POTASSIUM, | 4.7 | 3.4 - 5.0 | [facility] | | | PLASMA | | mmol/L | LABORATORY | | | (LAB) | | | SERVICES, | | | | | | CORE | | + +---------+ + + + | POTASSIUM | No [...] + + | [facility] | [address] | [place] [address] | | | SERVICES, CORE | [address] | | | + + + + + HEPARIN, EITHER STANDARD / LMW, BLOOD (12/07/2012 4:26 AM PDT) + +-------+ + + + | Component | Value | Ref Range | Performed | Pathologist | | | | | At | Signature | + +-------+ + + + | HEPARIN, | <0.10 | U/mL | [facility] | | | STD LMW | | | LABORATORY | | | | | | SERVICES, | | | | | | CORE | | + +-------+ + + + + + | Specimen | + + | Blood - Blood | + + + + + | Narrative | Performed At | + + + | Heparin, Either STD/LMW - Therapeutic Ranges: Heparin, | [facility] | | Unfractionated: 0.35 - 0.70 U/mL Enoxaparin, LMWH: 0.70 | LABORATORY | | - 1.20 U/mL Dalteparin, LMWH: 0.70 - 1.20 U/mL | SERVICES, CORE | | Tinzaparin, LMWH: Therapeutic range not established. | | | Preliminary studies suggest range | | | similar to dalteparin. Clinical | | | correlation required. | | | Heparin levels may be unreliable for: | | | Total bilirubin >6.6mg/dL | | | Triglycerides >360 mg/dL | | | or Moderate to Gross Hemolysis | | + + + + + + + + | Performing | Address | City/State/Zipcode | Phone Number | | Organization | | | | + + + + + | [facility] | [address] | [place] [address] | | | SERVICES, CORE | [address] | | | + + + + + CK, PLASMA (12/07/2012 4:26 AM PDT) + + + + + + | Component | Value | Ref Range | Performed | Pathologist | | | | | At | Signature | + + + + + + | CK | 1,938 (H) | 49 - 397 U/L | [facility] | | | | [...] | + + + + + | [facility] | [address] | [place] [address] | | | SERVICES, CORE | [address] | | | + + + + + CAPILLARY BLOOD GLUCOSE (NO CHG), POC (12/07/2012 3:07 AM PDT) + +---------+ + + + | Component | Value | Ref Range | Performed | Pathologist | | | | | At | Signature | + +---------+ + + + | BLOOD | 163 (H) | 60 - 99 mg/dL | [...] + + + + | [facility] | [address] | [place], [place] | | | [facility] | [address] | [address] | | | TESTS | | | | + + + + + CAPILLARY BLOOD GLUCOSE (NO CHG), POC (12/07/2012 2:24 AM PDT) + +---------+ + + + | Component | Value | Ref Range | Performed | Pathologist | | | | | At | Signature | + +---------+ + + + | BLOOD | 155 (H) | 60 - 99 mg/dL | [...] + + + + + | [facility] | [address] | [place], [place] | | | [facility] | [address] | [address] | | | TESTS | | | | + + + + + CBC (12/07/2012 2:02 AM PDT) + + + + + + | Component | Value | Ref Range | Performed | Pathologist | | | | | At | Signature | + + + + + + | WBC COUNT | 19.5 (H) | 4.4 - 11.0 K/cu | [facility] | | | | | mm | LABORATORY | | | | | | SERVICES, | | | | | | CORE | | + + + + + + | RED CELL | 2.74 (L) | 4.50 - 5.90 | [facility] | | | COUNT | | M/cu mm | LABORATORY | | | | | | SERVICES, | | | | | | CORE | | + + + + + + | HEMOGLOBIN | 8.5 (L) | 13.5 - 17.5 | [facility] | | | | | g/dL | LABORATORY | | | | | | SERVICES, | | | | | | CORE | | + + + + + + | HEMATOCRIT | 24.9 (L) | 41.0 - 53.0 % | [facility] | | | | | | LABORATORY | | | | | | SERVICES, | | | | | | CORE | | + + + + + + | MCV | 91.0 | 80.0 - 96.0 fL | [facility] | | | | | | LABORATORY | | | | | | SERVICES, | | | | | | CORE | | + + + + + + | MCHC | 34.3 | 33.4 - 35.5 | [facility] | | | | | g/dL | LABORATORY | | | | | | SERVICES, | | | | | | CORE | | + + + + + + | RDW | 15.3 (H) | 11.5 - 15.0 % | [facility] | | | | | | LABORATORY | | | | | | SERVICES, | | | | | | CORE | | + + + + + + | PLATELET | 214 | 150 - 400 K/cu | [facility] [...] | + + + + + | [facility] | [address] | [place] [address] | | | SERVICES, CORE | [address] | | | + + + + + CAPILLARY BLOOD GLUCOSE (NO CHG), POC (12/07/2012 1:12 AM PDT) + +---------+ + + + | Component | Value | Ref Range | Performed | Pathologist | | | | | At | Signature | + +---------+ + + + | BLOOD | 156 (H) | 60 - 99 mg/dL | [facility] - | | | GLUCOSE, | | [...] + | [facility] | [address] | [place], [place] | | | [facility] | [address] | [address] | | | TESTS | | | | + + + + + POTASSIUM, PLASMA (12/07/2012 1:02 AM PDT) + +-------+ + + + | Component | Value | Ref Range | Performed | Pathologist | | | | | At | Signature | + +-------+ + + + | POTASSIUM, | 4.8 | 3.4 - 5.0 | [facility] | [...] + | [facility] | [address] | [place] [address] | | | SERVICES, CORE | [address] | | | + + + + + MAGNESIUM, PLASMA (12/07/2012 1:02 AM PDT) + +---------+ + + + | Component | Value | Ref Range | Performed | Pathologist | | | | | At | Signature | + +---------+ + + + | MAGNESIUM,P | 2.9 (H) | 1.8 - 2.5 mg/dL | [facility] [...] + | [facility] | [address] | [place] [address] | | | SERVICES, CORE | [address] | | | + + + + + LACTIC ACID (12/07/2012 1:02 AM PDT) + +-------+ + + + | Component | Value | Ref Range | Performed | Pathologist | | | | | At | Signature | + +-------+ + + + | LACTATE | 3.2 | mmol/L | [facility] | | | | | | LABORATORY | | | | | | SERVICES, | | | | | | CORE | | + +-------+ + + + + + | Specimen | + + | Blood - Blood | + + + + + | Narrative | Performed At | + + + | Reference Range: Venous blood: 0.5 - 2.2 mmol/L | [facility] | | Arterial blood: 0.5 - 1.6 mmol/L | LABORATORY | | | SERVICES, CORE | + + + + + + + + | Performing | Address | City/State/Zipcode | Phone Number | | Organization | | | | + + + + + | [facility] | [address] | [place] [address] | | | SERVICES, CORE | [address] | | | + + + + + CAPILLARY BLOOD GLUCOSE (NO CHG), POC (12/06/2012 11:24 PM PDT) + +---------+ + + + | Component | Value | Ref Range | Performed | Pathologist | | | | | At | Signature | + +---------+ + + + | BLOOD | 149 (H) | 60 - 99 mg/dL | [facility] - | | | GLUCOSE, | | [...] + + + + | [facility] | [address] | [place], [place] | | | [facility] | [address] | [address] | | | TESTS | | | | + + + + + COMPLETE METABOLIC SET (NA,K,CL,CO2,BUN,CREAT,GLUC,CA,AST,ALT,BILI TOTAL,ALK PHOS,ALB,PROT TOTAL) (12/06/2012 11:20 PM PDT) + + + + + + | Component | Value | Ref Range | Performed | Pathologist | | | | | At | Signature | + + + + + + | GLUCOSE, | 133 (H) | 60 - 99 mg/dL | [facility] | | | PLASMA | | | LABORATORY | | | (LAB) | | | SERVICES, | | | | | | CORE | | + + + + + + | BUN, PLASMA | 108 (H) | 6 - 20 mg/dL | [facility] | | | (LAB) | | | LABORATORY | | | | | | SERVICES, | | | | | | CORE | | + + + + + + | CREATININE | 6.30 (H) | 0.70 - 1.30 | [facility] | | | PLASMA | | mg/dL | LABORATORY | | | (LAB) | | | SERVICES, | | | | | | CORE | | + + + + + + | SODIUM, | 144 | 136 - 145 | [facility] | | | PLASMA | | mmol/L | LABORATORY | | | (LAB) | | | SERVICES, | | | | | | CORE | | + + + + + + | POTASSIUM, | 4.8 | 3.4 - 5.0 | [facility] | [...] + + + | TOTAL CO2, | 27 | 21 - 32 mmol/L | [facility] | | | PLASMA | | | LABORATORY | | | (LAB) | | | SERVICES, | | | | | | CORE | | + + + + + + | CALCIUM, | 7.7 (L) | 8.6 - 10.2 | [facility] | | | PLASMA | | mg/dL | LABORATORY | | | (LAB) | | | SERVICES, | | | | | | CORE | | + + + + + + | BILIRUBIN | 4.4 (H) | 0.3 - 1.2 mg/dL | [facility] | | | TOTAL | | | LABORATORY | | | | | | SERVICES, | | | | | | CORE | | + + + + + + | TOTAL | 5.2 (L) | 6.1 - 7.9 g/dL | [facility] | | | PROTEIN, | | | LABORATORY | | | PLASMA | | | SERVICES, | | | (LAB) | | | CORE | | + + + + + + | ALBUMIN, | 2.3 (L) | 3.5 - 4.7 g/dL | [facility] | | | PLASMA | | | LABORATORY | | | (LAB) | | | SERVICES, | | | | | | CORE | | + + + + + + | ALK PHOS | 184 (H) | 56 - 119 U/L | [facility] | | | | | | LABORATORY | | | | | | SERVICES, | | | | | | CORE | | + + + + + + | AST(SGOT) | 2,818 (H) | 15 - 41 U/L | [facility] | | | | | | LABORATORY | | | | | | SERVICES, | | | | | | CORE | | + + + + + + | ALT (SGPT) | 4,019 (H) | 12 - 60 U/L | [facility] | | | | | | LABORATORY | | | | | | SERVICES, | | | | | | CORE | | + + + + + + | ANION | 18 (H) | 4 - 11 mmol/L | [...] + + + + + + | BILI T CMNT | No Hemo | | [facility] | | | | | | LABORATORY | | | | | | SERVICES, | | | | | | CORE | | + + + + + + | AST CMNT | No Hemo | | [facility] | | | | | | LABORATORY | | | | | | SERVICES, | | | | | | CORE | | + + + + + + | ANION GAP | 14 (H) | 4 - 11 mmol/L | [...] + | [facility] | [address] | [place] [address] | | | TANIA, TOI | [address] | | | + + + + + CAPILLARY BLOOD GLUCOSE (NO CHG), POC (12/06/2012 8:34 PM PDT) + +---------+ + + + | Component | Value | Ref Range | Performed | Pathologist | | | | | At | Signature | + +---------+ + + + | BLOOD | 159 (H) | 60 - 99 mg/dL | [facility] - | | | GLUCOSE, | | [...] | [facility] | [address] | [place], [place] | | | [facility] | [address] | [address] | | | TESTS | | | | + + + + + MANUAL DIFFERENTIAL (12/06/2012 8:27 PM PDT) + + + + + + | Component | Value | Ref Range | Performed | Pathologist | | | | | At | Signature | + + + + + + | NEUTROPHIL% | 75 (H) | 50 - 70 % | [facility] | | | | | | LABORATORY | | | | | | SERVICES, | | | | | | CORE | | + + + + + + | LYMPHOCYTE% | 13 (L) | 18 - 42 % | [facility] | | | | | | LABORATORY | | | | | | SERVICES, | | | | | | CORE | | + + + + + + | MONOCYTE % | 3 | 2 - 8 % | [facility] | | | | | | LABORATORY | | | | | | SERVICES, | | | | | | CORE | | + + + + + + | EOSINOPHIL | 2 | 1 - 3 % | [facility] | | | % | | | LABORATORY | | | | | | SERVICES, | | | | | | CORE | | + + + + + + | BASOPHIL % | 0 | 0 - 2 % | [facility] | | | | | | LABORATORY | | | | | | SERVICES, | | | | | | CORE | | + + + + + + | BANDS % | 4 | 0 - 10 % | [facility] | | | | | | LABORATORY | | | | | | SERVICES, | | | | | | CORE | | + + + + + + | METAMYELO% | 3 (H) | <=0 % | [facility] | | | | | | LABORATORY | | | | | | SERVICES, | | | | | | CORE | | + + + + + + | MYELOCYTES% | 0 | <=0 % | [facility] | | | | | | LABORATORY | | | | | | SERVICES, | | | | | | CORE | | + + + + + + | PROMYELO% | 0 | <=0 % | [facility] | | | | | | LABORATORY | | | | | | SERVICES, | | | | | | CORE | | + + + + + + | ATYPICAL | 0 | <=0 | [facility] | | | CELL% | | | LABORATORY | | | | | | SERVICES, | | | | | | CORE | | + + + + + + | NEUTROPHIL | | 1.8 - 7.7 K/cu | [facility] | | | # | | mm | LABORATORY | | | | | | SERVICES, | | | | | | CORE | | + + + + + + | LYMPHOCYTE# | | 1.0 - 4.8 K/cu | [facility] | | | | | mm | LABORATORY | | | | | | SERVICES, | | | | | | CORE | | + + + + + + | MONOCYTE # | | 0.0 - 0.8 K/cu | [facility] | | | | | mm | LABORATORY | | | | | | SERVICES, | | | | | | CORE | | + + + + + + | EOSINOPHIL | | 0.0 - 0.5 K/cu | [facility] | | | # | | mm | LABORATORY | | | | | | SERVICES, | | | | | | CORE | | + + + + + + | BASOPHIL # | | 0.0 - 0.1 K/cu | [facility] | | | | | mm | LABORATORY | | | | | | SERVICES, | | | | | | CORE | | + + + + + + | BANDS # | | 0.0 - 1.1 K/cu | [facility] | | | | | mm | LABORATORY | | | | | | SERVICES, | | | | | | CORE | | + + + + + + | METAMYELO# | | K/cu mm | [facility] | | | | | | LABORATORY | | | | | | SERVICES, | | | | | | CORE | | + + + + + + | MYELOCYTES# | | K/cu mm | [facility] | | | | | | LABORATORY | | | | | | SERVICES, | | | | | | CORE | | + + + + + + | PROMYELO # | | K/cu mm | [facility] | | | | | | LABORATORY | | | | | | SERVICES, | | | | | | CORE | | + + + + + + | ATYPICAL | | K/cu mm | [facility] | | | CELLS # | | | LABORATORY | | | | | | SERVICES, | | | | | | CORE | | + + + + + + | NRBC | 11 | /100 WBC | [facility] | | | | | | LABORATORY | | | | | | SERVICES, | | | | | | CORE | | + + + + + + | ANISOCYTOSI | 1+ (10-25cells/HPF) | (none) | [facility] | | | S | | | LABORATORY | | | [...] + | [facility] | [address] | [place] [address] | | | SERVICES, CORE | [address] | | | + + + + + CK, PLASMA (12/06/2012 8:27 PM PDT) + + + + + + | Component | Value | Ref Range | Performed | Pathologist | | | | | At | Signature | + + + + + + | CK | 2,386 (H) | 49 - 397 U/L | [facility] | | | | [...] | + + + + + | [facility] | [address] | [place] [address] | | | SERVICES, CORE | [address] | | | + + + + + CBC AND AUTO DIFF (12/06/2012 8:27 PM PDT) + + + + + + | Component | Value | Ref Range | Performed | Pathologist | | | | | At | Signature | + + + + + + | WBC | 17.4 (H)Comment: WBC | 4.4 - 11.0 K/cu | [facility] | | | ADJUSTED | count adjusted for | mm | LABORATORY | | | | NRBC's. | | SERVICES, | | | | | | CORE | | + + + + + + | RED CELL | 2.82 (L) | 4.50 - 5.90 | [facility] | | | COUNT | | M/cu mm | LABORATORY | | | | | | SERVICES, | | | | | | CORE | | + + + + + + | HEMOGLOBIN | 8.8 (L) | 13.5 - 17.5 | [facility] | | | | | g/dL | LABORATORY | | | | | | SERVICES, | | | | | | CORE | | + + + + + + | HEMATOCRIT | 26.0 (L) | 41.0 - 53.0 % | [facility] | | | | | | LABORATORY | | | | | | SERVICES, | | | | | | CORE | | + + + + + + | MCV | 92.4 | 80.0 - 96.0 fL | [facility] | | | | | | LABORATORY | | | | | | SERVICES, | | | | | | CORE | | + + + + + + | MCHC | 33.9 | 33.4 - 35.5 | [facility] | | | | | g/dL | LABORATORY | | | | | | SERVICES, | | | | | | CORE | | + + + + + + | RDW | 15.9 (H) | 11.5 - 15.0 % | [facility] | | | | | | LABORATORY | | | | | | SERVICES, | | | | | | CORE | | + + + + + + | PLATELET | 201Comment: Giant | 150 - 400 K/cu | [facility] | | | COUNT | platelets present. Final | mm | LABORATORY | | | | platelet report. | | SERVICES, | | | | | | CORE | | + + + + + + + + | Specimen | + + | Blood - Blood | + + + + + | Narrative | Performed At | + + + | Final WBC report. | [facility] | | | LABORATORY | | | [place] [place] | + + + + + + + + | Performing | Address | City/State/Zipcode | Phone Number | | Organization | | | | + + + + + | [facility] | [address] | [place] [address] | | | [place] | [address] | | | + + + + + MAGNESIUM, PLASMA (12/06/2012 8:27 PM PDT) + +---------+ + + + | Component | Value | Ref Range | Performed | Pathologist | | | | | At | Signature | + +---------+ + + + | MAGNESIUM,P | 3.0 (H) | 1.8 - 2.5 mg/dL | [facility] [...] + | [facility] | [address] | [place] [address] | | | SERVICES, CORE | [address] | | | + + + + + COAGULOPATHY PANEL (INR,APTT,FIBRINOGEN) (12/06/2012 8:27 PM PDT) + + + + + + | Component | Value | Ref Range | Performed | Pathologist | | | | | At | Signature | + + + + + + | INR | 2.17 (H) | 0.90 - 1.20 INR | [facility] | | | | | | LABORATORY | | | | | | SERVICES, | | | | | | CORE | | + + + + + + | APTT | 36.1 (H) | 26.0 - 36.0 | [facility] | | | | | seconds | LABORATORY | | | | | | SERVICES, | | | | | | CORE | | + + + + + + | FIBRINOGEN | 592 (H) | 200 - 450 mg/dL | [facility] | | | LEVEL | | | LABORATORY | | | [...] with mech. valves (2.5 - 3.5) INR APTT | [facility] | | Therapeutic Range: (75 - 120) sec | | | Heparin levels of 0.35 - 0.7 U/mL | | + + + + + + + + | Performing | Address | City/State/Zipcode | Phone Number | | Organization | | | | + + + + + | [facility] | [address] | [place] [address] | | | TANIA, TOI | [address] | | | + + + + + LACTIC ACID (12/06/2012 8:27 PM PDT) + +-------+ + + + | Component | Value | Ref Range | Performed | Pathologist | | | | | At | Signature | + +-------+ + + + | LACTATE | 3.7 | mmol/L | [facility] | | | | | | LABORATORY | | | | | | SERVICES, | | | | | | CORE | | + +-------+ + + + + + | Specimen | + + | Blood - Blood | + + + + + | Narrative | Performed At | + + + | Reference Range: Venous blood: 0.5 - 2.2 mmol/L | [facility] | | Arterial blood: 0.5 - 1.6 mmol/L | LABORATORY | | | SERVICES, CORE | + + + + + + + + | Performing | Address | City/State/Zipcode | Phone Number | | Organization | | | | + + + + + | [facility] | [address] | [place] [address] | | | SERVICES, CORE | [address] | | | + + + + + COMPLETE METABOLIC SET (NA,K,CL,CO2,BUN,CREAT,GLUC,CA,AST,ALT,BILI TOTAL,ALK PHOS,ALB,PROT TOTAL) (12/06/2012 8:27 PM PDT) + + + + + + | Component | Value | Ref Range | Performed | Pathologist | | | | | At | Signature | + + + + + + | GLUCOSE, | 139 (H) | 60 - 99 mg/dL | [facility] | | | PLASMA | | | LABORATORY | | | (LAB) | | | SERVICES, | | | | | | CORE | | + + + + + + | BUN, PLASMA | 105 (H) | 6 - 20 mg/dL | [facility] | | | (LAB) | | | LABORATORY | | | | | | SERVICES, | | | | | | CORE | | + + + + + + | CREATININE | 6.24 (H) | 0.70 - 1.30 | [facility] | | | PLASMA | | mg/dL | LABORATORY | | | (LAB) | | | SERVICES, | | | | | | CORE | | + + + + + + | SODIUM, | 144 | 136 - 145 | [facility] | | | PLASMA | | mmol/L | LABORATORY | | | (LAB) | | | SERVICES, | | | | | | CORE | | + + + + + + | POTASSIUM, | 5.0 | 3.4 - 5.0 | [facility] | [...] + + + | TOTAL CO2, | 25 | 21 - 32 mmol/L | [facility] | | | PLASMA | | | LABORATORY | | | (LAB) | | | SERVICES, | | | | | | CORE | | + + + + + + | CALCIUM, | 7.7 (L) | 8.6 - 10.2 | [facility] | | | PLASMA | | mg/dL | LABORATORY | | | (LAB) | | | SERVICES, | | | | | | CORE | | + + + + + + | BILIRUBIN | 4.3 (H) | 0.3 - 1.2 mg/dL | [facility] | | | TOTAL | | | LABORATORY | | | | | | SERVICES, | | | | | | CORE | | + + + + + + | TOTAL | 5.3 (L) | 6.1 - 7.9 g/dL | [facility] | | | PROTEIN, | | | LABORATORY | | | PLASMA | | | SERVICES, | | | (LAB) | | | CORE | | + + + + + + | ALBUMIN, | 2.3 (L) | 3.5 - 4.7 g/dL | [facility] | | | PLASMA | | | LABORATORY | | | (LAB) | | | SERVICES, | | | | | | CORE | | + + + + + + | ALK PHOS | 196 (H) | 56 - 119 U/L | [facility] | | | | | | LABORATORY | | | | | | SERVICES, | | | | | | CORE | | + + + + + + | AST(SGOT) | 3,225 (H) | 15 - 41 U/L | [facility] | | | | | | LABORATORY | | | | | | SERVICES, | | | | | | CORE | | + + + + + + | ALT (SGPT) | 4,008 (H) | 12 - 60 U/L | [facility] | | | | | | LABORATORY | | | | | | SERVICES, | | | | | | CORE | | + + + + + + | ANION | 20 (H) | 4 - 11 mmol/L | [...] + + + + + + | BILI T CMNT | No Hemo | | [facility] | | | | | | LABORATORY | | | | | | SERVICES, | | | | | | CORE | | + + + + + + | AST CMNT | No Hemo | | [facility] | | | | | | LABORATORY | | | | | | SERVICES, | | | | | | CORE | | + + + + + + | ANION GAP | 16 (H) | 4 - 11 mmol/L | [...] + | [facility] | [address] | [place] [address] | | | SERVICES, CORE | [address] | | | + + + + + VANCOMYCIN, RANDOM (12/06/2012 8:27 PM PDT) + +-------+ + + + | Component | Value | Ref Range | Performed | Pathologist | | | | | At | Signature | + +-------+ + + + | VANCOMYCIN, | 33.7 | 5.0 - 50.0 | [facility] | | | RANDOM | | ug/mL | LABORATORY | | | | | [...] | + + + + + | [facility] | [address] | [place] [address] | | | SERVICES, CORE | [address] | | | + + + + + 12 LEAD ECG (12/06/2012 8:07 PM PDT) + + + + + + | Component | Value | Ref Range | Performed | Pathologist | | | | | At | Signature | + + + + + + | VENTRICULAR | 59 | BPM | [facility] | | | RATE | | | OF | | | | | | CARDIOLOGY | | + + + + + + | ATRIAL RATE | 59 | BPM | [facility] | | | | | | OF | | | | | | CARDIOLOGY | | + + + + + + | P-R | 144 | ms | [facility] | | | INTERVAL | | | OF | | | | | | CARDIOLOGY | | + + + + + + | QRS | 86 | ms | [facility] | | | DURATION | | | OF | | | | | | CARDIOLOGY | | + + + + + + | QT | 506 | ms | [facility] | | | | | | OF | | | | | | CARDIOLOGY | | + + + + + + | QTC | 500 | ms | [facility] | | | | | | OF | | | | | | CARDIOLOGY | | + + + + + + | P AXIS | 11 | degrees | [facility] | | | | | | OF | | | | | | CARDIOLOGY | | + + + + + + | R AXIS | 97 | degrees | [facility] | | | | | | OF | | | | | | CARDIOLOGY | | + + + + + + | T AXIS | 97 | degrees | [facility] | | | | | | OF | | | | | | CARDIOLOGY | | + + + + + + | EKG | Sinus | | [facility] | | | DIAGNOSIS | bradycardiaRightward | | OF | | | | axisAnteroseptal infarct | | CARDIOLOGY | | | | , age | | | | | | undeterminedProlonged | | | | | | QTST elevation consider | | | | | | inferior injury or acute | | | | | | infarctAbnormal | | | | | | ECGConfirmed by | | | | | | STACY WARD | | | | | | ([id number]) on 12/08/2012 | | | | | | 9:53:09 PM | | | | + + + + + + + + | Specimen | + + | | + + + + + | Narrative | Performed At | + + + | Please click | [facility] | | on view image for the detailed interpretation from [employer] results. | CARDIOLOGY | + + + + + + + + | Performing | Address | City/State/Zipcode | Phone Number | | Organization | | | | + + + + + | [facility] | [address] | [place], [place] | | | CARDIOLOGY | [address] | [address] | | + + + + + HEPARIN, EITHER STANDARD / LMW, BLOOD (12/06/2012 4:02 PM PDT) + +-------+ + + + | Component | Value | Ref Range | Performed | Pathologist | | | | | At | Signature | + +-------+ + + + | HEPARIN, | <0.10 | U/mL | [facility] | | | STD LMW | | | LABORATORY | | | | | | SERVICES, | | | | | | CORE | | + +-------+ + + + + + | Specimen | + + | Blood - Blood | + + + + + | Narrative | Performed At | + + + | Heparin, Either STD/LMW - Therapeutic Ranges: Heparin, | [facility] | | Unfractionated: 0.35 - 0.70 U/mL Enoxaparin, LMWH: 0.70 | LABORATORY | | - 1.20 U/mL Dalteparin, LMWH: 0.70 - 1.20 U/mL | SERVICES, CORE | | Tinzaparin, LMWH: Therapeutic range not established. | | | Preliminary studies suggest range | | | similar to dalteparin. Clinical | | | correlation required. | | | Heparin levels may be unreliable for: | | | Total bilirubin >6.6mg/dL | | | Triglycerides >360 mg/dL | | | or Moderate to Gross Hemolysis | | + + + + + + + + | Performing | Address | City/State/Zipcode | Phone Number | | Organization | | | | + + + + + | [facility] | [id number] | [place] [address] | | | [facility], [place] | [address] | | | + + + + + OPERATION RECORD (12/06/2012 2:42 PM PDT) + + | Transcriptions | + + | Helen Gee MD - 12/06/2012 7:20 AM PDT Date: 12/04/2012ttending | | Surgeon: Narendra Lunsford M.D.Dispatcher Refinery(s): Helen Alberts | | MARCIA Geereoperative Diagnosis(es):Postoperative tamponade.Postoperative | | Diagnosis(es):Postoperative tamponade.Procedures Performed:Emergent re-entry sternotomy | | and evacuation of hematoma.Anesthesia:IV sedation.Complications:None.Drains:Shabnam | | x2.Indications:This is a 67-year-old man who underwent coronary artery bypass grafting | | onNovember 29, 2012. He required IV anticoagulation and was also started onCoumadin for LV | | thrombus. He was initially transferred to the floor from the ICUfollowing his operation | | but returned to the ICU today with evidence of hypoperfusion and dyspnea.Central | | monitoring later revealed a CVP to 35. We were in the process ofobtaining an | | echocardiogram to evaluate the possibility of a delayedtamponade as his drains were now | | removed. While awaiting this process, thepatient developed ventricular tachycardia and | | required chestcompressions and defibrillation. At this point, he was | | profoundlyHypotensive and on massive doses of pressors and inotropes, and we felt that | | emergent bedside reopening of hissternotomy was warranted.Procedure:The patient had been | | previously intubated. Dr. Zambrano from Anesthesiology assisted with hemodynamic, airway, | | and sedation management. In the ICU room, the prior skin incision was reopened with the | | knife. Thewires were then identified and cut and removed. With even a | | partialreopening of the sternum, his hemodynamics began to slowly improve. Weplaced a | | sternal retractor and evacuated a large clot burden particularlyaround the right atrium. | | It was difficult to identify the vein graft tothe PDA, but we were successfully able | | to find it, and after digging out the clot,this was fairly clear. The vein graft to the | | OM taking off to the leftside could also be seen. With the sternum spread widely and a | | verylarge clot burden evacuated, his hemodynamics improved quite markedly, andthey were | | able to come down on what had been extremely high doses ofinotropes and vasopressors, | | and in fact, at this point, he required somevolume loading. With the hemodynamics now | | more stable, we did go ahead andprepped the skin and draped with sterile blue towels. | | We looked around forany other obvious sources of bleeding, and there were none. By | | ourestimation, this appeared to be a slow delayed postop bleed, probablyrelated to his | | need for anticoagulation due to the LV thrombus. Afterensuring that there was no other | | bleeding, we did go ahead and remove thesternal retractor. This did not embarrass his | | hemodynamics at all, so wemade one final check for hemostasis, and this was all | | satisfactory. We carefully enter the left pleural space and evacuatedsome | | serosanguineous fluid from here with a sucker. We went ahead andplaced 2 Shabnam drains. | | One was directed toward the left pleural spaceacross the mediastinum and then another | | directly into the mediastinalspace. Given the previous hemodynamic instability and | | already compromised LV with aknown depressed ejection fraction, we elected to place the | | sterile Silasticdressing which was cut to size and secured to the skin. We then placed | | anIoban over this and placed the chest tubes to suction. He tolerated theprocedure | | well. There did not appear to be any immediate evidence ofcomplication.Dr. Lunsford was | | present for the procedure.Ladarius Vaughan M.D.[facility] / [id number] / | | [id number] / [id number] / T: 12/06/2012 | |placed a sternal retractor and evacuated a large clot burden particularly | |around the right atrium. It was difficult to identify the vein graft to | |the PDA, but we were successfully able to find it, and after digging out the clot, | |this was fairly clear. The vein graft to the OM taking off to the left | |side could also be seen. With the sternum spread widely and a very | |large clot burden evacuated, his hemodynamics improved quite markedly, and | |they were able to come down on what had been extremely high doses of | |inotropes and vasopressors, and in fact, at this point, he required some | |volume loading. With the hemodynamics now more stable, we did go ahead and | |prepped the skin and draped with sterile blue towels. We looked around for | |any other obvious sources of bleeding, and there were none. By our | |estimation, this appeared to be a slow delayed postop bleed, probably | |related to his need for anticoagulation due to the LV thrombus. After | |ensuring that there was no other bleeding, we did go ahead and remove the | |sternal retractor. This did not embarrass his hemodynamics at all, so we | |made one final check for hemostasis, and this was all satisfactory. We | |carefully enter the left pleural space and evacuated | |some serosanguineous fluid from here with a sucker. We went ahead and | |placed 2 Shabnam drains. One was directed toward the left pleural space | |across the mediastinum and then another directly into the mediastinal | |space. Given the previous hemodynamic instability and already compromised LV with a | |known depressed ejection fraction, we elected to place the sterile Silastic | |dressing which was cut to size and secured to the skin. We then placed an | |Ioban over this and placed the chest tubes to suction. He tolerated the | |procedure well. There did not appear to be any immediate evidence of | |complication. | | | |Dr. Lunsford was present for the procedure. | | | | | |Helen Gee MD | | | | | |Narendra Lunsford M.D. | | | |CJW / HS | |[id number] / [id number] / [id number] / | | | | | + + LACTIC ACID (12/06/2012 1:54 PM PDT) + +-------+ + + + | Component | Value | Ref Range | Performed | Pathologist | | | | | At | Signature | + +-------+ + + + | LACTATE | 3.4 | mmol/L | [facility] | | | | | | LABORATORY | | | | | | SERVICES, | | | | | | CORE | | + +-------+ + + + + + | Specimen | + + | Blood - Blood | + + + + + | Narrative | Performed At | + + + | Reference Range: Venous blood: 0.5 - 2.2 mmol/L | [facility] | | Arterial blood: 0.5 - 1.6 mmol/L | LABORATORY | | | [place] | + + + + + + + + | Performing | Address | City/State/Zipcode | Phone Number | | Organization | | | | + + + + + | [facility] | [address] | [place] [address] | | | [place] | [address] | | | + + + + + BLOOD GASES, ARTERIAL - LAB (12/06/2012 1:54 PM PDT) + + + + + + | Component | Value | Ref Range | Performed | Pathologist | | | | | At | Signature | + + + + + + | PAT TEMP | 38.0 | Degree C | [facility] | | | ARTERIAL | | | LABORATORY | | | | | | SERVICES, | | | | | | CORE | | + + + + + + | FIO2 | .45 | | [facility] | | | ARTERIAL | | | LABORATORY | | | | | | SERVICES, | | | | | | CORE | | + + + + + + | PH ARTERIAL | 7.45 (H) | 7.37 - 7.44 | [facility] | | | | | | LABORATORY | | | | | | SERVICES, | | | | | | CORE | | + + + + + + | PCO2 | 36 | 32 - 43 mmHg | [facility] | | | ARTERIAL | | | LABORATORY | | | | | | SERVICES, | | | | | | CORE | | + + + + + + | PO2 | 82 | 72 - 104 mmHg | [facility] | | | ARTERIAL | | | LABORATORY | | | | | | SERVICES, | | | | | | CORE | | + + + + + + | HCO3 | 25 | 21 - 28 mmol/L | [facility] | | | ARTERIAL | | | LABORATORY | | | | | | SERVICES, | | | | | | CORE | | + + + + + + | TOTAL CO2 | 26 | 22 - 28 mmol/L | [facility] | | | ARTERIAL | | | LABORATORY | | | | | | SERVICES, | | | | | | CORE | | + + + + + + | BASE EXCESS | 1.5 | | [facility] | | | ARTERIAL | | | LABORATORY | | | | | | SERVICES, | | | | | | CORE | | + + + + + + | O2 SAT, | 96.0 | 92.0 - 98.0 | [facility] | | | ARTERIAL | | | LABORATORY | | | [...] | + + + + + | [facility] | [address] | [place] [address] | | | SERVICES, CORE | [address] | | | + + + + + COAGULOPATHY PANEL (INR,APTT,FIBRINOGEN) (12/06/2012 1:54 PM PDT) + + + + + + | Component | Value | Ref Range | Performed | Pathologist | | | | | At | Signature | + + + + + + | INR | 2.30 (H) | 0.90 - 1.20 INR | [facility] | | | | | | LABORATORY | | | | | | SERVICES, | | | | | | CORE | | + + + + + + | APTT | 36.8 (H) | 26.0 - 36.0 | [facility] | | | | | seconds | LABORATORY | | | | | | SERVICES, | | | | | | CORE | | + + + + + + | FIBRINOGEN | 539 (H) | 200 - 450 mg/dL | [facility] | | | LEVEL | | | LABORATORY | | | [...] with mech. valves (2.5 - 3.5) INR APTT | SERVICES, CORE | | Therapeutic Range: (75 - 120) sec | | | Heparin levels of 0.35 - 0.7 U/mL | | + + + + + + + + | Performing | Address | City/State/Zipcode | Phone Number | | Organization | | | | + + + + + | [facility] | [address] | [place] [address] | | | SERVICES, CORE | [address] | | | + + + + + RENAL FUNCTION SET (NA,K,CL,CO2,BUN,CREAT,GLUC,CA,PHOS,ALB ) (12/06/2012 1:54 PM PDT) + + + + + + | Component | Value | Ref Range | Performed | Pathologist | | | | | At | Signature | + + + + + + | GLUCOSE, | 125 (H) | 60 - 99 mg/dL | [facility] | | | PLASMA | | | LABORATORY | | | (LAB) | | | SERVICES, | | | | | | CORE | | + + + + + + | BUN, PLASMA | 99 (H) | 6 - 20 mg/dL | [facility] | | | (LAB) | | | LABORATORY | | | | | | SERVICES, | | | | | | CORE | | + + + + + + | CREATININE | 6.12 (H) | 0.70 - 1.30 | [facility] | | | PLASMA | | mg/dL | LABORATORY | | | (LAB) | | | SERVICES, | | | | | | CORE | | + + + + + + | SODIUM, | 144 | 136 - 145 | [facility] | | | PLASMA | | mmol/L | LABORATORY | | | (LAB) | | | SERVICES, | | | | | | CORE | | + + + + + + | POTASSIUM, | 4.9 | 3.4 - 5.0 | [facility] | [...] + + + | TOTAL CO2, | 25 | 21 - 32 mmol/L | [facility] | | | PLASMA | | | LABORATORY | | | (LAB) | | | SERVICES, | | | | | | CORE | | + + + + + + | CALCIUM, | 7.7 (L) | 8.6 - 10.2 | [facility] | | | PLASMA | | mg/dL | LABORATORY | | | (LAB) | | | SERVICES, | | | | | | CORE | | + + + + + + | ALBUMIN, | 2.3 (L) | 3.5 - 4.7 g/dL | [facility] | | | PLASMA | | | LABORATORY | | | (LAB) | | | SERVICES, | | | | | | CORE | | + + + + + + | PHOSPHORUS, | 8.4 (H) | 2.4 - 4.7 mg/dL | [facility] | | | PLASMA [...] + + + | ANION GAP | 16 (H) | 4 - 11 mmol/L | [facility] | | | | | | LABORATORY | | | | | | SERVICES, | | | | | | CORE | | + + + + + + | ANION | 20 (H) | 4 - 11 mmol/L | [...] + | [facility] | [address] | [place] [address] | | | SERVICES, OTI | [address] | | | + + + + + CBC (12/06/2012 8:54 AM PDT) + + + + + + | Component | Value | Ref Range | Performed | Pathologist | | | | | At | Signature | + + + + + + | WBC COUNT | 15.3 (H) | 4.4 - 11.0 K/cu | [facility] | | | | | mm | LABORATORY | | | | | | SERVICES, | | | | | | CORE | | + + + + + + | RED CELL | 2.76 (L) | 4.50 - 5.90 | [facility] | | | COUNT | | M/cu mm | LABORATORY | | | | | | SERVICES, | | | | | | CORE | | + + + + + + | HEMOGLOBIN | 8.7 (L) | 13.5 - 17.5 | [facility] | | | | | g/dL | LABORATORY | | | | | | SERVICES, | | | | | | CORE | | + + + + + + | HEMATOCRIT | 25.7 (L) | 41.0 - 53.0 % | [facility] | | | | | | LABORATORY | | | | | | SERVICES, | | | | | | CORE | | + + + + + + | MCV | 93.0 | 80.0 - 96.0 fL | [facility] | | | | | | LABORATORY | | | | | | SERVICES, | | | | | | CORE | | + + + + + + | MCHC | 33.8 | 33.4 - 35.5 | [facility] | | | | | g/dL | LABORATORY | | | | | | SERVICES, | | | | | | CORE | | + + + + + + | RDW | 15.4 (H) | 11.5 - 15.0 % | [facility] | | | | | | LABORATORY | | | | | | SERVICES, | | | | | | CORE | | + + + + + + | PLATELET | 178 | 150 - 400 K/cu | [facility] | | | COUNT | | mm [...] | + + + + + | [facility] | [address] | [place] [address] | | | SERVICES, CORE | [address] | | | + + + + + X-RAY PORTABLE CHEST 1 VIEW (12/06/2012 8:34 AM PDT) + + + + + + | Component | Value | Ref Range | Performed | Pathologist | | | | | At | Signature | + + + + + + | X-RAY | EXAM: AP CHEST. | | | | | PORTABLE | HISTORY:Status post | | | | | CHEST 1 | CABG. Status post | | | | | VIEW | sternotomy wire removal. | | | | | | COMPARISON: Yesterday | | | | | | FINDINGS: | | | | | | Endotracheal tube, | | | | | | enteric tube, right | | | | | | jugular venouscatheter | | | | | | remain in place. Dense | | | | | | left lower lobe | | | | | | opacificationpersists. | | | | | | There is minimal right | | | | | | basilar atelectasis. | | | | | | There is | | | | | | nopneumothorax. | | | | | | IMPRESSION: Persistent | | | | | | dense left lower lobe | | | | | | opacification most | | | | | | likelyatelectasis | | | | | | although pneumonia is | | | | | | possible. Minimal | | | | | | right basilaratelectasis | | | | | | as before. Attending | | | | | | Radiologists: GURPREET | | | | | | TIGRE CONLEYuthor: | | | | | | GURPREET CONLEY MD I | | | | | | have personally viewed | | | | | | this procedure/exam, | | | | | | reviewed this report,and | | | | | | made changes to it | | | | | | where appropriate. | | | | | | Final/Electronically | | | | | | zen / GURPREET | | | | | | PRIMACK 12/06/2012 10:41 | | | | | | AM | | | | + + + + + + + + | Specimen | + + | | + + + +---------+ + + | Performing | Address | City/State/Zipcode | Phone Number | | Organization | | | | + +---------+ + + | [facility] | | | | | RADIOLOGY | | | | + +---------+ + + BLOOD GASES, ARTERIAL - LAB (12/06/2012 8:14 AM PDT) + + + + + + | Component | Value | Ref Range | Performed | Pathologist | | | | | At | Signature | + + + + + + | PAT TEMP | | Degree C | [facility] | | | ARTERIAL | | | LABORATORY | | | | | | SERVICES, | | | | | | CORE | | + + + + + + | FIO2 | | | [facility] | | | ARTERIAL | | | LABORATORY | | | | | | SERVICES, | | | | | | CORE | | + + + + + + | PH ARTERIAL | 7.45 (H) | 7.37 - 7.44 | [facility] | | | | | | LABORATORY | | | | | | SERVICES, | | | | | | CORE | | + + + + + + | PCO2 | 38 | 32 - 43 mmHg | [facility] | | | ARTERIAL | | | LABORATORY | | | | | | SERVICES, | | | | | | CORE | | + + + + + + | PO2 | 125 (H) | 72 - 104 mmHg | [facility] | | | ARTERIAL | | | LABORATORY | | | | | | SERVICES, | | | | | | CORE | | + + + + + + | HCO3 | 26 | 21 - 28 mmol/L | [facility] | | | ARTERIAL | | | LABORATORY | | | | | | SERVICES, | | | | | | CORE | | + + + + + + | TOTAL CO2 | 27 | 22 - 28 mmol/L | [facility] | | | ARTERIAL | | | LABORATORY | | | | | | SERVICES, | | | | | | CORE | | + + + + + + | BASE EXCESS | 2.5 | | [facility] | | | ARTERIAL | | | LABORATORY | | | | | | SERVICES, | | | | | | CORE | | + + + + + + | O2 SAT, | 98.5 (H) | 92.0 - 98.0 | [facility] | | | ARTERIAL | | | LABORATORY | | | [...] + | [facility] | [address] | [place] [address] | | | SERVICES, CORE | [address] | | | + + + + + TROPONIN I, PLASMA (12/06/2012 8:14 AM PDT) + + + + + + | Component | Value | Ref Range | Performed | Pathologist | | | | | At | Signature | + + + + + + | TROPONIN I | 9.64 (H) | <0.80 ng/mL | [facility] | | [...] + | [facility] | [address] | [place] [address] | | | SERVICES, CORE | [address] | | | + + + + + COAGULOPATHY PANEL (INR,APTT,FIBRINOGEN) (12/06/2012 8:14 AM PDT) + + + + + + | Component | Value | Ref Range | Performed | Pathologist | | | | | At | Signature | + + + + + + | INR | 2.22 (H) | 0.90 - 1.20 INR | [facility] | | | | | | LABORATORY | | | | | | SERVICES, | | | | | | CORE | | + + + + + + | APTT | 36.5 (H) | 26.0 - 36.0 | [facility] | | | | | seconds | LABORATORY | | | | | | SERVICES, | | | | | | CORE | | + + + + + + | FIBRINOGEN | 580 (H) | 200 - 450 mg/dL | [facility] | | | LEVEL | | | LABORATORY | | | [...] with mech. valves (2.5 - 3.5) INR APTT | SERVICES, CORE | | Therapeutic Range: (75 - 120) sec | | | Heparin levels of 0.35 - 0.7 U/mL | | + + + + + + + + | Performing | Address | City/State/Zipcode | Phone Number | | Organization | | | | + + + + + | [facility] | [address] | [place] [address] | | | SERVICES, CORE | [address] | | | + + + + + COMPLETE METABOLIC SET (NA,K,CL,CO2,BUN,CREAT,GLUC,CA,AST,ALT,BILI TOTAL,ALK PHOS,ALB,PROT TOTAL) (12/06/2012 8:14 AM PDT) + + + + + + | Component | Value | Ref Range | Performed | Pathologist | | | | | At | Signature | + + + + + + | GLUCOSE, | 107 (H) | 60 - 99 mg/dL | [facility] | | | PLASMA | | | LABORATORY | | | (LAB) | | | SERVICES, | | | | | | CORE | | + + + + + + | BUN, PLASMA | 94 (H) | 6 - 20 mg/dL | [facility] | | | (LAB) | | | LABORATORY | | | | | | SERVICES, | | | | | | CORE | | + + + + + + | CREATININE | 5.78 (H) | 0.70 - 1.30 | [facility] | | | PLASMA | | mg/dL | LABORATORY | | | (LAB) | | | SERVICES, | | | | | | CORE | | + + + + + + | SODIUM, | 145 | 136 - 145 | [facility] | | | PLASMA | | mmol/L | LABORATORY | | | (LAB) | | | SERVICES, | | | | | | CORE | | + + + + + + | POTASSIUM, | 4.7 | 3.4 - 5.0 | [facility] | [...] + + + + | CALCIUM, | 7.7 (L) | 8.6 - 10.2 | [facility] | | | PLASMA | | mg/dL | LABORATORY | | | (LAB) | | | SERVICES, | | | | | | CORE | | + + + + + + | BILIRUBIN | 3.7 (H) | 0.3 - 1.2 mg/dL | [facility] | | | TOTAL | | | LABORATORY | | | | | | SERVICES, | | | | | | CORE | | + + + + + + | TOTAL | 5.3 (L) | 6.1 - 7.9 g/dL | [facility] | | | PROTEIN, | | | LABORATORY | | | PLASMA | | | SERVICES, | | | (LAB) | | | CORE | | + + + + + + | ALBUMIN, | 2.2 (L) | 3.5 - 4.7 g/dL | [facility] | | | PLASMA | | | LABORATORY | | | (LAB) | | | SERVICES, | | | | | | CORE | | + + + + + + | ALK PHOS | 194 (H) | 56 - 119 U/L | [facility] | | | | | | LABORATORY | | | | | | SERVICES, | | | | | | CORE | | + + + + + + | AST(SGOT) | 4,991 (H) | 15 - 41 U/L | [facility] | | | | | | LABORATORY | | | | | | SERVICES, | | | | | | CORE | | + + + + + + | ALT (SGPT) | 4,673 (H) | 12 - 60 U/L | [facility] | | | | | | LABORATORY | | | | | | SERVICES, | | | | | | CORE | | + + + + + + | ANION | 18 (H) | 4 - 11 mmol/L | [...] + + + + + + | BILI T CMNT | No Hemo | | [facility] | | | | | | LABORATORY | | | | | | SERVICES, | | | | | | CORE | | + + + + + + | AST CMNT | No Hemo | | [facility] | | | | | | LABORATORY | | | | | | SERVICES, | | | | | | CORE | | + + + + + + | ANION GAP | 14 (H) | 4 - 11 mmol/L | [...] + | [facility] | [address] | [place] [address] | | | SERVICES, CORE | [address] | | | + + + + + LACTIC ACID (12/06/2012 8:14 AM PDT) + +-------+ + + + | Component | Value | Ref Range | Performed | Pathologist | | | | | At | Signature | + +-------+ + + + | LACTATE | 2.9 | mmol/L | [facility] | | | | | | LABORATORY | | | | | | SERVICES, | | | | | | CORE | | + +-------+ + + + + + | Specimen | + + | Blood - Blood | + + + + + | Narrative | Performed At | + + + | Reference Range: Venous blood: 0.5 - 2.2 mmol/L | [facility] | | Arterial blood: 0.5 - 1.6 mmol/L | LABORATORY | | | SERVICES, CORE | + + + + + + + + | Performing | Address | City/State/Zipcode | Phone Number | | Organization | | | | + + + + + | [facility] | [address] | [place] [address] | | | SERVICES, CORE | [address] | | | + + + + + VANCOMYCIN, RANDOM (12/06/2012 8:14 AM PDT) + +-------+ + + + | Component | Value | Ref Range | Performed | Pathologist | | | | | At | Signature | + +-------+ + + + | VANCOMYCIN, | 16.2 | 5.0 - 50.0 | [facility] | | | RANDOM | | ug/mL | LABORATORY | | | | | [...] + | [facility] | [address] | [place] [address] | | | SERVICES, CORE | [address] | | | + + + + + HEPARIN, EITHER STANDARD / LMW, BLOOD (12/06/2012 8:14 AM PDT) + +-------+ + + + | Component | Value | Ref Range | Performed | Pathologist | | | | | At | Signature | + +-------+ + + + | HEPARIN, | <0.10 | U/mL | [facility] | | | STD LMW | | | LABORATORY | | | | | | SERVICES, | | | | | | CORE | | + +-------+ + + + + + | Specimen | + + | Blood - Blood | + + + + + | Narrative | Performed At | + + + | Heparin, Either STD/LMW - Therapeutic Ranges: Heparin, | [facility] | | Unfractionated: 0.35 - 0.70 U/mL Enoxaparin, LMWH: 0.70 | LABORATORY | | - 1.20 U/mL Dalteparin, LMWH: 0.70 - 1.20 U/mL | SERVICES, CORE | | Tinzaparin, LMWH: Therapeutic range not established. | | | Preliminary studies suggest range | | | similar to dalteparin. Clinical | | | correlation required. | | | Heparin levels may be unreliable for: | | | Total bilirubin >6.6mg/dL | | | Triglycerides >360 mg/dL | | | or Moderate to Gross Hemolysis | | + + + + + + + + | Performing | Address | City/State/Zipcode | Phone Number | | Organization | | | | + + + + + | [facility] | [address] | [place] [address] | | | SERVICES, CORE | [address] | | | + + + + + CAPILLARY BLOOD GLUCOSE (NO CHG), POC (12/06/2012 7:08 AM PDT) + +---------+ + + + | Component | Value | Ref Range | Performed | Pathologist | | | | | At | Signature | + +---------+ + + + | BLOOD | 125 (H) | 60 - 99 mg/dL | [...] | [facility] | [address] | [place], [place] | | | [facility] | [address] | [address] | | | TESTS | | | | + + + + + LACTIC ACID (12/06/2012 2:47 AM PDT) + +-------+ + + + | Component | Value | Ref Range | Performed | Pathologist | | | | | At | Signature | + +-------+ + + + | LACTATE | 3.3 | mmol/L | [facility] | | | | | | LABORATORY | | | | | | SERVICES, | | | | | | CORE | | + +-------+ + + + + + | Specimen | + + | Blood - Blood | + + + + + | Narrative | Performed At | + + + | Reference Range: Venous blood: 0.5 - 2.2 mmol/L | [facility] | | Arterial blood: 0.5 - 1.6 mmol/L | LABORATORY | | | SERVICES, CORE | + + + + + + + + | Performing | Address | City/State/Zipcode | Phone Number | | Organization | | | | + + + + + | [facility] | [address] | [place] [address] | | | SERVICES, CORE | [address] | | | + + + + + BLOOD GASES, ARTERIAL - LAB (12/06/2012 2:47 AM PDT) + + + + + + | Component | Value | Ref Range | Performed | Pathologist | | | | | At | Signature | + + + + + + | PAT TEMP | 37.8 | Degree C | [facility] | | | ARTERIAL | | | LABORATORY | | | | | | SERVICES, | | | | | | CORE | | + + + + + + | FIO2 | .45 | | [facility] | | | ARTERIAL | | | LABORATORY | | | | | | SERVICES, | | | | | | CORE | | + + + + + + | PH ARTERIAL | 7.46 (H) | 7.37 - 7.44 | [facility] | | | | | | LABORATORY | | | | | | SERVICES, | | | | | | CORE | | + + + + + + | PCO2 | 38 | 32 - 43 mmHg | [facility] | | | ARTERIAL | | | LABORATORY | | | | | | SERVICES, | | | | | | CORE | | + + + + + + | PO2 | 95 | 72 - 104 mmHg | [facility] | | | ARTERIAL | | | LABORATORY | | | | | | SERVICES, | | | | | | CORE | | + + + + + + | HCO3 | 26 | 21 - 28 mmol/L | [facility] | | | ARTERIAL | | | LABORATORY | | | | | | SERVICES, | | | | | | CORE | | + + + + + + | TOTAL CO2 | 28 | 22 - 28 mmol/L | [facility] | | | ARTERIAL | | | LABORATORY | | | | | | SERVICES, | | | | | | CORE | | + + + + + + | BASE EXCESS | 2.9 | | [facility] | | | ARTERIAL | | | LABORATORY | | | | | | SERVICES, | | | | | | CORE | | + + + + + + | O2 SAT, | 97.0 | 92.0 - 98.0 | [facility] | | | ARTERIAL | | | LABORATORY | | | [...] + | [facility] | [address] | [place] [address] | | | SERVICES, CORE | [address] | | | + + + + + 12 LEAD ECG (12/06/2012 2:33 AM PDT) + + + + + + | Component | Value | Ref Range | Performed | Pathologist | | | | | At | Signature | + + + + + + | VENTRICULAR | 122 | BPM | [facility] | | | RATE | | | OF | | | | | | CARDIOLOGY | | + + + + + + | ATRIAL RATE | 122 | BPM | [facility] | | | | | | OF | | | | | | CARDIOLOGY | | + + + + + + | QRS | 98 | ms | [facility] | | | DURATION | | | OF | | | | | | CARDIOLOGY | | + + + + + + | QT | 306 | ms | [facility] | | | | | | OF | | | | | | CARDIOLOGY | | + + + + + + | QTC | 436 | ms | [facility] | | | | | | OF | | | | | | CARDIOLOGY | | + + + + + + | R AXIS | 113 | degrees | [facility] | | | | | | OF | | | | | | CARDIOLOGY | | + + + + + + | T AXIS | -8 | degrees | [facility] | | | | | | OF | | | | | | CARDIOLOGY | | + + + + + + | EKG | Atrial fibrillation with | | [facility] | | | DIAGNOSIS | rapid ventricular | | OF | | | | responseLeft posterior | | CARDIOLOGY | | | | fascicular blockPossible | | | | | | Inferior infarct , age | | | | | | undeterminedAnterior | | | | | | infarct , age | | | | | | undeterminedAbnormal | | | | | | ECG"I have personally | | | | | | interpreted this report, | | | | | | either alone or with a | | | | | | trainee."Confirmed by | | | | | | HEIDI CASTILLO ([id number]) | | | | | | on 12/06/2012 3:35:00 PM | | | | + + + + + + + + | Specimen | + + | | + + + + + | Narrative | Performed At | + + + | Please click | [facility] | | on view image for the detailed interpretation from [employer] results. | CARDIOLOGY | + + + + + + + + | Performing | Address | City/State/Zipcode | Phone Number | | Organization | | | | + + + + + | [facility] | [address] | [place], [place] | | | CARDIOLOGY | [address] | [address] | | + + + + + MANUAL DIFFERENTIAL (12/06/2012 2:28 AM PDT) + +--------+ + + + | Component | Value | Ref Range | Performed | Pathologist | | | | | At | Signature | + +--------+ + + + | NEUTROPHIL% | 68 | 50 - 70 % | [facility] | | | | | | LABORATORY | | | | | | SERVICES, | | | | | | CORE | | + +--------+ + + + | LYMPHOCYTE% | 12 (L) | 18 - 42 % | [facility] | | | | | | LABORATORY | | | | | | SERVICES, | | | | | | CORE | | + +--------+ + + + | MONOCYTE % | 8 | 2 - 8 % | [facility] | | | | | | LABORATORY | | | | | | SERVICES, | | | | | | CORE | | + +--------+ + + + | EOSINOPHIL | 3 | 1 - 3 % | [facility] | | | % | | | LABORATORY | | | | | | SERVICES, | | | | | | CORE | | + +--------+ + + + | BASOPHIL % | 1 | 0 - 2 % | [facility] | | | | | | LABORATORY | | | | | | SERVICES, | | | | | | CORE | | + +--------+ + + + | BANDS % | 6 | 0 - 10 % | [facility] | | | | | | LABORATORY | | | | | | SERVICES, | | | | | | CORE | | + +--------+ + + + | METAMYELO% | 1 (H) | <=0 % | [facility] | | | | | | LABORATORY | | | | | | SERVICES, | | | | | | CORE | | + +--------+ + + + | MYELOCYTES% | 1 (H) | <=0 % | [facility] | | | | | | LABORATORY | | | | | | SERVICES, | | | | | | CORE | | + +--------+ + + + | PROMYELO% | 0 | <=0 % | [facility] | | | | | | LABORATORY | | | | | | SERVICES, | | | | | | CORE | | + +--------+ + + + | ATYPICAL | 0 | <=0 | [facility] | | | CELL% | | | LABORATORY | | | | | | SERVICES, | | | | | | CORE | | + +--------+ + + + | NEUTROPHIL | | 1.8 - 7.7 K/cu | [facility] | | | # | | mm | LABORATORY | | | | | | SERVICES, | | | | | | CORE | | + +--------+ + + + | LYMPHOCYTE# | | 1.0 - 4.8 K/cu | [facility] | | | | | mm | LABORATORY | | | | | | SERVICES, | | | | | | CORE | | + +--------+ + + + | MONOCYTE # | | 0.0 - 0.8 K/cu | [facility] | | | | | mm | LABORATORY | | | | | | SERVICES, | | | | | | CORE | | + +--------+ + + + | EOSINOPHIL | | 0.0 - 0.5 K/cu | [facility] | | | # | | mm | LABORATORY | | | | | | SERVICES, | | | | | | CORE | | + +--------+ + + + | BASOPHIL # | | 0.0 - 0.1 K/cu | [facility] | | | | | mm | LABORATORY | | | | | | SERVICES, | | | | | | CORE | | + +--------+ + + + | BANDS # | | 0.0 - 1.1 K/cu | [facility] | | | | | mm | LABORATORY | | | | | | SERVICES, | | | | | | CORE | | + +--------+ + + + | METAMYELO# | | K/cu mm | [facility] | | | | | | LABORATORY | | | | | | SERVICES, | | | | | | CORE | | + +--------+ + + + | MYELOCYTES# | | K/cu mm | [facility] | | | | | | LABORATORY | | | | | | SERVICES, | | | | | | CORE | | + +--------+ + + + | PROMYELO # | | K/cu mm | [facility] | | | | | | LABORATORY | | | | | | SERVICES, | | | | | | CORE | | + +--------+ + + + | ATYPICAL | | K/cu mm | [facility] | | | CELLS # | | | LABORATORY | | | | | | SERVICES, | | | | | | CORE | | + +--------+ + + + | NRBC | 10 | /100 WBC | [facility] | | | | | | LABORATORY | | | | | | SERVICES, | | | | | | CORE | | + +--------+ + + + | RBC | Normal | (none) | [facility] | | | MORPHOLOGY | | | LABORATORY | | | [...] | + + + + + | [facility] | [address] | [place] [address] | | | SERVICES, CORE | [address] | | | + + + + + CBC AND AUTO DIFF (12/06/2012 2:28 AM PDT) + + + + + + | Component | Value | Ref Range | Performed | Pathologist | | | | | At | Signature | + + + + + + | WBC | 14.3 (H)Comment: WBC | 4.4 - 11.0 K/cu | [facility] | | | ADJUSTED | count adjusted for | mm | LABORATORY | | | | NRBC's. | | SERVICES, | | | | | | CORE | | + + + + + + | RED CELL | 2.70 (L) | 4.50 - 5.90 | [facility] | | | COUNT | | M/cu mm | LABORATORY | | | | | | SERVICES, | | | | | | CORE | | + + + + + + | HEMOGLOBIN | 8.6 (L) | 13.5 - 17.5 | [facility] | | | | | g/dL | LABORATORY | | | | | | SERVICES, | | | | | | CORE | | + + + + + + | HEMATOCRIT | 24.9 (L) | 41.0 - 53.0 % | [facility] | | | | | | LABORATORY | | | | | | SERVICES, | | | | | | CORE | | + + + + + + | MCV | 92.0 | 80.0 - 96.0 fL | [facility] | | | | | | LABORATORY | | | | | | SERVICES, | | | | | | CORE | | + + + + + + | MCHC | 34.4 | 33.4 - 35.5 | [facility] | | | | | g/dL | LABORATORY | | | | | | SERVICES, | | | | | | CORE | | + + + + + + | RDW | 15.4 (H) | 11.5 - 15.0 % | [facility] | | | | | | LABORATORY | | | | | | SERVICES, | | | | | | CORE | | + + + + + + | PLATELET | 172 | 150 - 400 K/cu | [facility] [...] | + + + + + | [facility] | [address] | [place] [address] | | | SERVICES, CORE | [address] | | | + + + + + COAGULOPATHY PANEL (INR,APTT,FIBRINOGEN) (12/06/2012 2:28 AM PDT) + + + + + + | Component | Value | Ref Range | Performed | Pathologist | | | | | At | Signature | + + + + + + | INR | 2.26 (H) | 0.90 - 1.20 INR | [facility] | | | | | | LABORATORY | | | | | | SERVICES, | | | | | | CORE | | + + + + + + | APTT | 38.3 (H) | 26.0 - 36.0 | [facility] | | | | | seconds | LABORATORY | | | | | | SERVICES, | | | | | | CORE | | + + + + + + | FIBRINOGEN | 592 (H) | 200 - 450 mg/dL | [facility] | | | LEVEL | | | LABORATORY | | | [...] with mech. valves (2.5 - 3.5) INR APTT | SERVICES, CORE | | Therapeutic Range: (75 - 120) sec | | | Heparin levels of 0.35 - 0.7 U/mL | | + + + + + + + + | Performing | Address | City/State/Zipcode | Phone Number | | Organization | | | | + + + + + | [facility] | [address] | [place] [address] | | | SERVICES, CORE | [address] | | | + + + + + COMPLETE METABOLIC SET (NA,K,CL,CO2,BUN,CREAT,GLUC,CA,AST,ALT,BILI TOTAL,ALK PHOS,ALB,PROT TOTAL) (12/06/2012 2:28 AM PDT) + + + + + + | Component | Value | Ref Range | Performed | Pathologist | | | | | At | Signature | + + + + + + | GLUCOSE, | 101 (H) | 60 - 99 mg/dL | [facility] | | | PLASMA | | | LABORATORY | | | (LAB) | | | SERVICES, | | | | | | CORE | | + + + + + + | BUN, PLASMA | 94 (H) | 6 - 20 mg/dL | [facility] | | | (LAB) | | | LABORATORY | | | | | | SERVICES, | | | | | | CORE | | + + + + + + | CREATININE | 5.60 (H) | 0.70 - 1.30 | [facility] | | | PLASMA | | mg/dL | LABORATORY | | | (LAB) | | | SERVICES, | | | | | | CORE | | + + + + + + | SODIUM, | 145 | 136 - 145 | [facility] | | | PLASMA | | mmol/L | LABORATORY | | | (LAB) | | | SERVICES, | | | | | | CORE | | + + + + + + | POTASSIUM, | 4.7 | 3.4 - 5.0 | [facility] | [...] + + + | TOTAL CO2, | 25 | 21 - 32 mmol/L | [facility] | | | PLASMA | | | LABORATORY | | | (LAB) | | | SERVICES, | | | | | | CORE | | + + + + + + | CALCIUM, | 7.4 (L) | 8.6 - 10.2 | [facility] | | | PLASMA | | mg/dL | LABORATORY | | | (LAB) | | | SERVICES, | | | | | | CORE | | + + + + + + | BILIRUBIN | 3.3 (H) | 0.3 - 1.2 mg/dL | [facility] | | | TOTAL | | | LABORATORY | | | | | | SERVICES, | | | | | | CORE | | + + + + + + | TOTAL | 5.2 (L) | 6.1 - 7.9 g/dL | [facility] | | | PROTEIN, | | | LABORATORY | | | PLASMA | | | SERVICES, | | | (LAB) | | | CORE | | + + + + + + | ALBUMIN, | 2.3 (L) | 3.5 - 4.7 g/dL | [facility] | | | PLASMA | | | LABORATORY | | | (LAB) | | | SERVICES, | | | | | | CORE | | + + + + + + | ALK PHOS | 172 (H) | 56 - 119 U/L | [facility] | | | | | | LABORATORY | | | | | | SERVICES, | | | | | | CORE | | + + + + + + | AST(SGOT) | 6,983 (H) | 15 - 41 U/L | [facility] | | | | | | LABORATORY | | | | | | SERVICES, | | | | | | CORE | | + + + + + + | ALT (SGPT) | 4,997 (H) | 12 - 60 U/L | [facility] | | | | | | LABORATORY | | | | | | SERVICES, | | | | | | CORE | | + + + + + + | ANION | 19 (H) | 4 - 11 mmol/L | [...] + + + + + + | BILI T CMNT | No Hemo | | [facility] | | | | | | LABORATORY | | | | | | SERVICES, | | | | | | CORE | | + + + + + + | AST CMNT | No Hemo | | [facility] | | | | | | LABORATORY | | | | | | SERVICES, | | | | | | CORE | | + + + + + + | ANION GAP | 15 (H) | 4 - 11 mmol/L | [...] + | [facility] | [address] | [place] [address] | | | TOI MARIN | [address] | | | + + + + + MAGNESIUM, PLASMA (12/06/2012 2:28 AM PDT) + +---------+ + + + | Component | Value | Ref Range | Performed | Pathologist | | | | | At | Signature | + +---------+ + + + | MAGNESIUM,P | 2.9 (H) | 1.8 - 2.5 mg/dL | [facility] [...] | + + + + + | [facility] | [address] | [place] [address] | | | SERVICES, CORE | [address] | | | + + + + + CAPILLARY BLOOD GLUCOSE (NO CHG), POC (12/06/2012 1:44 AM PDT) + +---------+ + + + | Component | Value | Ref Range | Performed | Pathologist | | | | | At | Signature | + +---------+ + + + | BLOOD | 107 (H) | 60 - 99 mg/dL | [facility] - | | | GLUCOSE, | | [...] + | [facility] | [address] | [place], [place] | | | [facility] | [address] | [address] | | | TESTS | | | | + + + + + CAPILLARY BLOOD GLUCOSE (NO CHG), POC (12/05/2012 9:47 PM PDT) + +---------+ + + + | Component | Value | Ref Range | Performed | Pathologist | | | | | At | Signature | + +---------+ + + + | BLOOD | 114 (H) | 60 - 99 mg/dL | [...] + + + + | [facility] | [address] | [place], [place] | | | [facility] | [address] | [address] | | | TESTS | | | | + + + + + LACTIC ACID (12/05/2012 9:26 PM PDT) + +-------+ + + + | Component | Value | Ref Range | Performed | Pathologist | | | | | At | Signature | + +-------+ + + + | LACTATE | 3.2 | mmol/L | [facility] | | | | | | LABORATORY | | | | | | SERVICES, | | | | | | CORE | | + +-------+ + + + + + | Specimen | + + | Blood - Blood | + + + + + | Narrative | Performed At | + + + | Reference Range: Venous blood: 0.5 - 2.2 mmol/L | [facility] | | Arterial blood: 0.5 - 1.6 mmol/L | LABORATORY | | | TOI MARIN | + + + + + + + + | Performing | Address | City/State/Zipcode | Phone Number | | Organization | | | | + + + + + | [facility] | [address] | [place] [address] | | | TOI MARIN | [address] | | | + + + + + BLOOD GASES, ARTERIAL - LAB (12/05/2012 9:26 PM PDT) + + + + + + | Component | Value | Ref Range | Performed | Pathologist | | | | | At | Signature | + + + + + + | PAT TEMP | 38.2 | Degree C | [facility] | | | ARTERIAL | | | LABORATORY | | | | | | SERVICES, | | | | | | CORE | | + + + + + + | FIO2 | .55 | | [facility] | | | ARTERIAL | | | LABORATORY | | | | | | SERVICES, | | | | | | CORE | | + + + + + + | PH ARTERIAL | 7.45 (H) | 7.37 - 7.44 | [facility] | | | | | | LABORATORY | | | | | | SERVICES, | | | | | | CORE | | + + + + + + | PCO2 | 39 | 32 - 43 mmHg | [facility] | | | ARTERIAL | | | LABORATORY | | | | | | SERVICES, | | | | | | CORE | | + + + + + + | PO2 | 136 (H) | 72 - 104 mmHg | [facility] | | | ARTERIAL | | | LABORATORY | | | | | | SERVICES, | | | | | | CORE | | + + + + + + | HCO3 | 26 | 21 - 28 mmol/L | [facility] | | | ARTERIAL | | | LABORATORY | | | | | | SERVICES, | | | | | | CORE | | + + + + + + | TOTAL CO2 | 27 | 22 - 28 mmol/L | [facility] | | | ARTERIAL | | | LABORATORY | | | | | | SERVICES, | | | | | | CORE | | + + + + + + | BASE EXCESS | 3.1 | | [facility] | | | ARTERIAL | | | LABORATORY | | | | | | SERVICES, | | | | | | CORE | | + + + + + + | O2 SAT, | 98.5 (H) | 92.0 - 98.0 | [facility] | | | ARTERIAL | | | LABORATORY | | | [...] | + + + + + | [facility] | [address] | [place] [address] | | | SERVICES, CORE | [address] | | | + + + + + MANUAL DIFFERENTIAL (12/05/2012 9:24 PM PDT) + + + + + + | Component | Value | Ref Range | Performed | Pathologist | | | | | At | Signature | + + + + + + | NEUTROPHIL% | 80 (H) | 50 - 70 % | [facility] | | | | | | LABORATORY | | | | | | SERVICES, | | | | | | CORE | | + + + + + + | LYMPHOCYTE% | 5 (L) | 18 - 42 % | [facility] | | | | | | LABORATORY | | | | | | SERVICES, | | | | | | CORE | | + + + + + + | MONOCYTE % | 5 | 2 - 8 % | [facility] | | | | | | LABORATORY | | | | | | SERVICES, | | | | | | CORE | | + + + + + + | EOSINOPHIL | 0 (L) | 1 - 3 % | [facility] | | | % | | | LABORATORY | | | | | | SERVICES, | | | | | | CORE | | + + + + + + | BASOPHIL % | 0 | 0 - 2 % | [facility] | | | | | | LABORATORY | | | | | | SERVICES, | | | | | | CORE | | + + + + + + | BANDS % | 6 | 0 - 10 % | [facility] | | | | | | LABORATORY | | | | | | SERVICES, | | | | | | CORE | | + + + + + + | METAMYELO% | 1 (H) | <=0 % | [facility] | | | | | | LABORATORY | | | | | | SERVICES, | | | | | | CORE | | + + + + + + | MYELOCYTES% | 3 (H) | <=0 % | [facility] | | | | | | LABORATORY | | | | | | SERVICES, | | | | | | CORE | | + + + + + + | PROMYELO% | 0 | <=0 % | [facility] | | | | | | LABORATORY | | | | | | SERVICES, | | | | | | CORE | | + + + + + + | ATYPICAL | 0 | <=0 | [facility] | | | CELL% | | | LABORATORY | | | | | | SERVICES, | | | | | | CORE | | + + + + + + | NEUTROPHIL | | 1.8 - 7.7 K/cu | [facility] | | | # | | mm | LABORATORY | | | | | | SERVICES, | | | | | | CORE | | + + + + + + | LYMPHOCYTE# | | 1.0 - 4.8 K/cu | [facility] | | | | | mm | LABORATORY | | | | | | SERVICES, | | | | | | CORE | | + + + + + + | MONOCYTE # | | 0.0 - 0.8 K/cu | [facility] | | | | | mm | LABORATORY | | | | | | SERVICES, | | | | | | CORE | | + + + + + + | EOSINOPHIL | | 0.0 - 0.5 K/cu | [facility] | | | # | | mm | LABORATORY | | | | | | SERVICES, | | | | | | CORE | | + + + + + + | BASOPHIL # | | 0.0 - 0.1 K/cu | [facility] | | | | | mm | LABORATORY | | | | | | SERVICES, | | | | | | CORE | | + + + + + + | BANDS # | | 0.0 - 1.1 K/cu | [facility] | | | | | mm | LABORATORY | | | | | | SERVICES, | | | | | | CORE | | + + + + + + | METAMYELO# | | K/cu mm | [facility] | | | | | | LABORATORY | | | | | | SERVICES, | | | | | | CORE | | + + + + + + | MYELOCYTES# | | K/cu mm | [facility] | | | | | | LABORATORY | | | | | | SERVICES, | | | | | | CORE | | + + + + + + | PROMYELO # | | K/cu mm | [facility] | | | | | | LABORATORY | | | | | | SERVICES, | | | | | | CORE | | + + + + + + | ATYPICAL | | K/cu mm | [facility] | | | CELLS # | | | LABORATORY | | | | | | SERVICES, | | | | | | CORE | | + + + + + + | NRBC | 11 | /100 WBC | [facility] | | | | | | LABORATORY | | | | | | SERVICES, | | | | | | CORE | | + + + + + + | SMUDGE | Present | (none) | [facility] | | | CELLS | | | LABORATORY | | | | | | SERVICES, | | | | | | CORE | | + + + + + + | Macro | Present | (none) | [facility] | | | Platelets | | | LABORATORY | | | | | | SERVICES, | | | | | | CORE | | + + + + + + | GIANT PLT | Present | (none) | [facility] | | | | | | LABORATORY | | | | | | SERVICES, | | | | | | CORE | | + + + + + + | POLYCHROMAS | 2+ (3-5cells/HPF) | (none) | [facility] | | | IA | | | LABORATORY | | | [...] + | [facility] | [address] | [place] [address] | | | SERVICES, CORE | [address] | | | + + + + + CBC AND AUTO DIFF (12/05/2012 9:24 PM PDT) + + + + + + | Component | Value | Ref Range | Performed | Pathologist | | | | | At | Signature | + + + + + + | WBC | 14.0 (H)Comment: Final | 4.4 - 11.0 K/cu | [facility] | | | ADJUSTED | WBC report.WBC count | mm | LABORATORY | | | | adjusted for NRBCs. | | SERVICES, | | | | | | CORE | | + + + + + + | RED CELL | 2.71 (L) | 4.50 - 5.90 | [facility] | | | COUNT | | M/cu mm | LABORATORY | | | | | | SERVICES, | | | | | | CORE | | + + + + + + | HEMOGLOBIN | 8.6 (L) | 13.5 - 17.5 | [facility] | | | | | g/dL | LABORATORY | | | | | | SERVICES, | | | | | | CORE | | + + + + + + | HEMATOCRIT | 24.9 (L) | 41.0 - 53.0 % | [facility] | | | | | | LABORATORY | | | | | | SERVICES, | | | | | | CORE | | + + + + + + | MCV | 91.7 | 80.0 - 96.0 fL | [facility] | | | | | | LABORATORY | | | | | | SERVICES, | | | | | | CORE | | + + + + + + | MCHC | 34.5 | 33.4 - 35.5 | [facility] | | | | | g/dL | LABORATORY | | | | | | SERVICES, | | | | | | CORE | | + + + + + + | RDW | 15.2 (H) | 11.5 - 15.0 % | [facility] | | | | | | LABORATORY | | | | | | SERVICES, | | | | | | CORE | | + + + + + + | PLATELET | 170 [...] | + + + + + | [facility] | [address] | [place] [address] | | | SERVICES, CORE | [address] | | | + + + + + COAGULOPATHY PANEL (INR,APTT,FIBRINOGEN) (12/05/2012 9:23 PM PDT) + + + + + + | Component | Value | Ref Range | Performed | Pathologist | | | | | At | Signature | + + + + + + | INR | 2.20 (H) | 0.90 - 1.20 INR | [facility] | | | | | | LABORATORY | | | | | | SERVICES, | | | | | | CORE | | + + + + + + | APTT | 40.6 (H) | 26.0 - 36.0 | [facility] | | | | | seconds | LABORATORY | | | | | | SERVICES, | | | | | | CORE | | + + + + + + | FIBRINOGEN | 615 (H) | 200 - 450 mg/dL | [facility] | | | LEVEL | | | LABORATORY | | | [...] with mech. valves (2.5 - 3.5) INR APTT | SERVICES, CORE | | Therapeutic Range: (75 - 120) sec | | | Heparin levels of 0.35 - 0.7 U/mL | | + + + + + + + + | Performing | Address | City/State/Zipcode | Phone Number | | Organization | | | | + + + + + | [facility] | [address] | [place] [address] | | | SERVICES, [facility] | [address] | | | + + + + + COMPLETE METABOLIC SET (NA,K,CL,CO2,BUN,CREAT,GLUC,CA,AST,ALT,BILI TOTAL,ALK PHOS,ALB,PROT TOTAL) (12/05/2012 9:23 PM PDT) + + + + + + | Component | Value | Ref Range | Performed | Pathologist | | | | | At | Signature | + + + + + + | GLUCOSE, | 104 (H) | 60 - 99 mg/dL | [facility] | | | PLASMA | | | LABORATORY | | | (LAB) | | | SERVICES, | | | | | | CORE | | + + + + + + | BUN, PLASMA | 87 (H) | 6 - 20 mg/dL | [facility] | | | (LAB) | | | LABORATORY | | | | | | SERVICES, | | | | | | CORE | | + + + + + + | CREATININE | 5.38 (H) | 0.70 - 1.30 | [facility] | | | PLASMA | | mg/dL | LABORATORY | | | (LAB) | | | SERVICES, | | | | | | CORE | | + + + + + + | SODIUM, | 146 (H) | 136 - 145 | [facility] | | | PLASMA | | mmol/L | LABORATORY | | | (LAB) | | | SERVICES, | | | | | | CORE | | + + + + + + | POTASSIUM, | 4.8 | 3.4 - 5.0 | [facility] | [...] + + + + | CALCIUM, | 7.6 (L) | 8.6 - 10.2 | [facility] | | | PLASMA | | mg/dL | LABORATORY | | | (LAB) | | | SERVICES, | | | | | | CORE | | + + + + + + | BILIRUBIN | 2.9 (H) | 0.3 - 1.2 mg/dL | [facility] | | | TOTAL | | | LABORATORY | | | | | | SERVICES, | | | | | | CORE | | + + + + + + | TOTAL | 5.2 (L) | 6.1 - 7.9 g/dL | [facility] | | | PROTEIN, | | | LABORATORY | | | PLASMA | | | SERVICES, | | | (LAB) | | | CORE | | + + + + + + | ALBUMIN, | 2.3 (L) | 3.5 - 4.7 g/dL | [facility] | | | PLASMA | | | LABORATORY | | | (LAB) | | | SERVICES, | | | | | | CORE | | + + + + + + | ALK PHOS | 179 (H) | 56 - 119 U/L | [facility] | | | | | | LABORATORY | | | | | | SERVICES, | | | | | | CORE | | + + + + + + | AST(SGOT) | 8,470 (H) | 15 - 41 U/L | [facility] | | | | | | LABORATORY | | | | | | SERVICES, | | | | | | CORE | | + + + + + + | ALT (SGPT) | 5,145 (H) | 12 - 60 U/L | [facility] | | | | | | LABORATORY | | | | | | SERVICES, | | | | | | CORE | | + + + + + + | ANION | 19 (H) | 4 - 11 mmol/L | [...] + + + + + + | BILI T CMNT | No Hemo | | [facility] | | | | | | LABORATORY | | | | | | SERVICES, | | | | | | CORE | | + + + + + + | AST CMNT | No Hemo | | [facility] | | | | | | LABORATORY | | | | | | SERVICES, | | | | | | CORE | | + + + + + + | ANION GAP | 15 (H) | 4 - 11 mmol/L | [...] | + + + + + | [facility] | [address] | [place] [address] | | | SERVICES, CORE | [address] | | | + + + + + HEPARIN, EITHER STANDARD / LMW, BLOOD (12/05/2012 9:23 PM PDT) + +-------+ + + + | Component | Value | Ref Range | Performed | Pathologist | | | | | At | Signature | + +-------+ + + + | HEPARIN, | <0.10 | U/mL | [facility] | | | STD LMW | | | LABORATORY | | | | | | SERVICES, | | | | | | CORE | | + +-------+ + + + + + | Specimen | + + | Blood - Blood | + + + + + | Narrative | Performed At | + + + | Heparin, Either STD/LMW - Therapeutic Ranges: Heparin, | [facility] | | Unfractionated: 0.35 - 0.70 U/mL Enoxaparin, LMWH: 0.70 | LABORATORY | | - 1.20 U/mL Dalteparin, LMWH: 0.70 - 1.20 U/mL | SERVICES, CORE | | Tinzaparin, LMWH: Therapeutic range not established. | | | Preliminary studies suggest range | | | similar to dalteparin. Clinical | | | correlation required. | | | Heparin levels may be unreliable for: | | | Total bilirubin >6.6mg/dL | | | Triglycerides >360 mg/dL | | | or Moderate to Gross Hemolysis | | + + + + + + + + | Performing | Address | City/State/Zipcode | Phone Number | | Organization | | | | + + + + + | [facility] | [address] | [place] [address] | | | SERVICES, CORE | [address] | | | + + + + + CAPILLARY BLOOD GLUCOSE (NO CHG), POC (12/05/2012 4:23 PM PDT) + +---------+ + + + | Component | Value | Ref Range | Performed | Pathologist | | | | | At | Signature | + +---------+ + + + | BLOOD | 113 (H) | 60 - 99 mg/dL | [...] + + + + | [facility] | [address] | [place], [place] | | | [facility] | [address] | [address] | | | TESTS | | | | + + + + + LACTIC ACID (12/05/2012 4:07 PM PDT) + +-------+ + + + | Component | Value | Ref Range | Performed | Pathologist | | | | | At | Signature | + +-------+ + + + | LACTATE | 4.6 | mmol/L | [facility] | | | | | | LABORATORY | | | | | | SERVICES, | | | | | | CORE | | + +-------+ + + + + + | Specimen | + + | Blood - Blood | + + + + + | Narrative | Performed At | + + + | Reference Range: Venous blood: 0.5 - 2.2 mmol/L | [facility] | | Arterial blood: 0.5 - 1.6 mmol/L | LABORATORY | | | SERVICES, CORE | + + + + + + + + | Performing | Address | City/State/Zipcode | Phone Number | | Organization | | | | + + + + + | [facility] | [address] | [place] [address] | | | SERVICES, TOI | [address] | | | + + + + + BLOOD GASES, ARTERIAL - LAB (12/05/2012 4:07 PM PDT) + + + + + + | Component | Value | Ref Range | Performed | Pathologist | | | | | At | Signature | + + + + + + | PAT TEMP | 38.2 | Degree C | [facility] | | | ARTERIAL | | | LABORATORY | | | | | | SERVICES, | | | | | | CORE | | + + + + + + | FIO2 | 55 | | [facility] | | | ARTERIAL | | | LABORATORY | | | | | | SERVICES, | | | | | | CORE | | + + + + + + | PH ARTERIAL | 7.52 (H) | 7.37 - 7.44 | [facility] | | | | | | LABORATORY | | | | | | SERVICES, | | | | | | CORE | | + + + + + + | PCO2 | 30 (L) | 32 - 43 mmHg | [facility] | | | ARTERIAL | | | LABORATORY | | | | | | SERVICES, | | | | | | CORE | | + + + + + + | PO2 | 122 (H) | 72 - 104 mmHg | [facility] | | | ARTERIAL | | | LABORATORY | | | | | | SERVICES, | | | | | | CORE | | + + + + + + | HCO3 | 25 | 21 - 28 mmol/L | [facility] | | | ARTERIAL | | | LABORATORY | | | | | | SERVICES, | | | | | | CORE | | + + + + + + | TOTAL CO2 | 25 | 22 - 28 mmol/L | [facility] | | | ARTERIAL | | | LABORATORY | | | | | | SERVICES, | | | | | | CORE | | + + + + + + | BASE EXCESS | 2.8 | | [facility] | | | ARTERIAL | | | LABORATORY | | | | | | SERVICES, | | | | | | CORE | | + + + + + + | O2 SAT, | 98.5 (H) | 92.0 - 98.0 | [facility] | | | ARTERIAL | | | LABORATORY | | | [...] + | [facility] | [address] | [place] [address] | | | SERVICES, CORE | [address] | | | + + + + + TROPONIN I, PLASMA (12/05/2012 4:06 PM PDT) + + + + + + | Component | Value | Ref Range | Performed | Pathologist | | | | | At | Signature | + + + + + + | TROPONIN I | 14.80 (H) | <0.80 ng/mL | [facility] | | [...] + | [facility] | [address] | [place] [address] | | | SERVICES, CORE | [address] | | | + + + + + COAGULOPATHY PANEL (INR,APTT,FIBRINOGEN) (12/05/2012 4:06 PM PDT) + + + + + + | Component | Value | Ref Range | Performed | Pathologist | | | | | At | Signature | + + + + + + | INR | 2.36 (H) | 0.90 - 1.20 INR | [facility] | | | | | | LABORATORY | | | | | | SERVICES, | | | | | | CORE | | + + + + + + | APTT | 41.0 (H) | 26.0 - 36.0 | [facility] | | | | | seconds | LABORATORY | | | | | | SERVICES, | | | | | | CORE | | + + + + + + | FIBRINOGEN | 569 (H) | 200 - 450 mg/dL | [facility] | | | LEVEL | | | LABORATORY | | | [...] with mech. valves (2.5 - 3.5) INR APTT | [facility]ANIA, CORE | | Therapeutic Range: (75 - 120) sec | | | Heparin levels of 0.35 - 0.7 U/mL | | + + + + + + + + | Performing | Address | City/State/Zipcode | Phone Number | | Organization | | | | + + + + + | [facility] | [address] | [place] [address] | | | SERVICES, CORE | [address] | | | + + + + + COMPLETE METABOLIC SET (NA,K,CL,CO2,BUN,CREAT,GLUC,CA,AST,ALT,BILI TOTAL,ALK PHOS,ALB,PROT TOTAL) (12/05/2012 4:06 PM PDT) + + + + + + | Component | Value | Ref Range | Performed | Pathologist | | | | | At | Signature | + + + + + + | GLUCOSE, | 98 | 60 - 99 mg/dL | [facility] | | | PLASMA | | | LABORATORY | | | (LAB) | | | SERVICES, | | | | | | CORE | | + + + + + + | BUN, PLASMA | 84 (H) | 6 - 20 mg/dL | [facility] | | | (LAB) | | | LABORATORY | | | | | | SERVICES, | | | | | | CORE | | + + + + + + | CREATININE | 5.01 (H) | 0.70 - 1.30 | [facility] | | | PLASMA | | mg/dL | LABORATORY | | | (LAB) | | | SERVICES, | | | | | | CORE | | + + + + + + | SODIUM, | 146 (H) | 136 - 145 | [facility] | | | PLASMA | | mmol/L | LABORATORY | | | (LAB) | | | SERVICES, | | | | | | CORE | | + + + + + + | POTASSIUM, | 4.8 | 3.4 - 5.0 | [facility] | | | PLASMA | | mmol/L | LABORATORY | | | (LAB) | | | SERVICES, | | | | | | CORE | | + + + + + + | CHLORIDE, | 106 | 97 - 108 mmol/L | [facility] [...] + + + + | CALCIUM, | 7.9 (L) | 8.6 - 10.2 | [facility] | | | PLASMA | | mg/dL | LABORATORY | | | (LAB) | | | SERVICES, | | | | | | CORE | | + + + + + + | BILIRUBIN | 2.8 (H) | 0.3 - 1.2 mg/dL | [facility] | | | TOTAL | | | LABORATORY | | | | | | SERVICES, | | | | | | CORE | | + + + + + + | TOTAL | 5.4 (L) | 6.1 - 7.9 g/dL | [facility] | | | PROTEIN, | | | LABORATORY | | | PLASMA | | | SERVICES, | | | (LAB) | | | CORE | | + + + + + + | ALBUMIN, | 2.3 (L) | 3.5 - 4.7 g/dL | [facility] | | | PLASMA | | | LABORATORY | | | (LAB) | | | SERVICES, | | | | | | CORE | | + + + + + + | ALK PHOS | 168 (H) | 56 - 119 U/L | [facility] | | | | | | LABORATORY | | | | | | SERVICES, | | | | | | CORE | | + + + + + + | AST(SGOT) | 10,421 (H) | 15 - 41 U/L | [facility] | | | | | | LABORATORY | | | | | | SERVICES, | | | | | | CORE | | + + + + + + | ALT (SGPT) | 5,639 (H) | 12 - 60 U/L | [facility] | | | | | | LABORATORY | | | | | | SERVICES, | | | | | | CORE | | + + + + + + | ANION | 20 (H) | 4 - 11 mmol/L | [...] + + + + + + | BILI T CMNT | No Hemo | | [facility] | | | | | | LABORATORY | | | | | | SERVICES, | | | | | | CORE | | + + + + + + | AST CMNT | No Hemo | | [facility] | | | | | | LABORATORY | | | | | | SERVICES, | | | | | | CORE | | + + + + + + | ANION GAP | 16 (H) | 4 - 11 mmol/L | [...] | + + + + + | [facility] | [address] | [place] [address] | | | SERVICES, CORE | [address] | | | + + + + + CAPILLARY BLOOD GLUCOSE (NO CHG), POC (12/05/2012 2:22 PM PDT) + +---------+ + + + | Component | Value | Ref Range | Performed | Pathologist | | | | | At | Signature | + +---------+ + + + | BLOOD | 107 (H) | 60 - 99 mg/dL | [...] + | [facility] | [address] | [place], [place] | | | [facility] | [facility] | [address] | | | TESTS | | | | + + + + + CAPILLARY BLOOD GLUCOSE (NO CHG), POC (12/05/2012 12:34 PM PDT) + +-------+ + + + | Component | Value | Ref Range | Performed | Pathologist | | | | | At | Signature | + +-------+ + + + | BLOOD | 97 | 60 - 99 mg/dL | [facility] - | | | GLUCOSE, | | | [facility] | | | POC | | | [place] | | | | | | OF CARE | | | | | | TESTS | | + +-------+ + + + + + | Specimen | + + | | + + + + + + + | Performing | Address | City/State/Zipcode | Phone Number | | Organization | | | | + + + + + | [facility] | [address] | [place], [place] | | | [facility] | [facility] | [phone] | | | TESTS | | | | + + + + + CAPILLARY BLOOD GLUCOSE (NO CHG), POC (12/05/2012 10:31 AM PDT) + +---------+ + + + | Component | Value | Ref Range | Performed | Pathologist | | | | | At | Signature | + +---------+ + + + | BLOOD | 105 (H) | 60 - 99 mg/dL | [facility] - | | | GLUCOSE, | | [...] + | [facility] | [address] | [place], [place] | | | [facility] | [address] | [address] | | | TESTS | | | | + + + + + COAGULOPATHY PANEL (INR,APTT,FIBRINOGEN) (12/05/2012 10:22 AM PDT) + + + + + + | Component | Value | Ref Range | Performed | Pathologist | | | | | At | Signature | + + + + + + | INR | 2.40 (H) | 0.90 - 1.20 INR | [facility] | | | | | | LABORATORY | | | | | | SERVICES, | | | | | | CORE | | + + + + + + | APTT | 38.8 (H) | 26.0 - 36.0 | [facility] | | | | | seconds | LABORATORY | | | | | | SERVICES, | | | | | | CORE | | + + + + + + | FIBRINOGEN | 569 (H) | 200 - 450 mg/dL | [facility] | | | LEVEL | | | LABORATORY | | | [...] with mech. valves (2.5 - 3.5) INR APTT | [facility], CORE | | Therapeutic Range: (75 - 120) sec | | | Heparin levels of 0.35 - 0.7 U/mL | | + + + + + + + + | Performing | Address | City/State/Zipcode | Phone Number | | Organization | | | | + + + + + | [facility] | [address] | [place] [address] | | | [place], [facility] | [address] | | | + + + + + COMPLETE METABOLIC SET (NA,K,CL,CO2,BUN,CREAT,GLUC,CA,AST,ALT,BILI TOTAL,ALK PHOS,ALB,PROT TOTAL) (12/05/2012 10:22 AM PDT) + + + + + + | Component | Value | Ref Range | Performed | Pathologist | | | | | At | Signature | + + + + + + | GLUCOSE, | 86 | 60 - 99 mg/dL | [facility] | | | PLASMA | | | LABORATORY | | | (LAB) | | | SERVICES, | | | | | | CORE | | + + + + + + | BUN, PLASMA | 76 (H) | 6 - 20 mg/dL | [facility] | | | (LAB) | | | LABORATORY | | | | | | SERVICES, | | | | | | CORE | | + + + + + + | CREATININE | 4.52 (H) | 0.70 - 1.30 | [facility] | | | PLASMA | | mg/dL | LABORATORY | | | (LAB) | | | SERVICES, | | | | | | CORE | | + + + + + + | SODIUM, | 145 | 136 - 145 | [facility] | | | PLASMA | | mmol/L | LABORATORY | | | (LAB) | | | SERVICES, | | | | | | CORE | | + + + + + + | POTASSIUM, | 4.7 | 3.4 - 5.0 | [facility] | [...] + + + + | CALCIUM, | 8.2 (L) | 8.6 - 10.2 | [facility] | | | PLASMA | | mg/dL | LABORATORY | | | (LAB) | | | SERVICES, | | | | | | CORE | | + + + + + + | BILIRUBIN | 2.5 (H) | 0.3 - 1.2 mg/dL | [facility] | | | TOTAL | | | LABORATORY | | | | | | SERVICES, | | | | | | CORE | | + + + + + + | TOTAL | 5.3 (L) | 6.1 - 7.9 g/dL | [facility] | | | PROTEIN, | | | LABORATORY | | | PLASMA | | | SERVICES, | | | (LAB) | | | CORE | | + + + + + + | ALBUMIN, | 2.4 (L) | 3.5 - 4.7 g/dL | [facility] | | | PLASMA | | | LABORATORY | | | (LAB) | | | SERVICES, | | | | | | CORE | | + + + + + + | ALK PHOS | 150 (H) | 56 - 119 U/L | [facility] | | | | | | LABORATORY | | | | | | SERVICES, | | | | | | CORE | | + + + + + + | AST(SGOT) | 12,585 (H) | 15 - 41 U/L | [facility] | | | | | | LABORATORY | | | | | | SERVICES, | | | | | | CORE | | + + + + + + | ALT (SGPT) | 5,648 (H) | 12 - 60 U/L | [facility] | | | | | | LABORATORY | | | | | | SERVICES, | | | | | | CORE | | + + + + + + | ANION | 21 (H) | 4 - 11 mmol/L | [...] + + + + + + | BILI T CMNT | No Hemo | | [facility] | | | | | | LABORATORY | | | | | | SERVICES, | | | | | | CORE | | + + + + + + | AST CMNT | No Hemo | | [facility] | | | | | | LABORATORY | | | | | | SERVICES, | | | | | | CORE | | + + + + + + | ANION GAP | 17 (H) | 4 - 11 mmol/L | [...] | + + + + + | [facility] | [address] | [place] [address] | | | SERVICES, CORE | [address] | | | + + + + + LACTIC ACID (12/05/2012 10:22 AM PDT) + +-------+ + + + | Component | Value | Ref Range | Performed | Pathologist | | | | | At | Signature | + +-------+ + + + | LACTATE | 5.6 | mmol/L | [facility] | | | | | | LABORATORY | | | | | | SERVICES, | | | | | | CORE | | + +-------+ + + + + + | Specimen | + + | Blood - Blood | + + + + + | Narrative | Performed At | + + + | Reference Range: Venous blood: 0.5 - 2.2 mmol/L | [facility] | | Arterial blood: 0.5 - 1.6 mmol/L | LABORATORY | | | SERVICES, CORE | + + + + + + + + | Performing | Address | City/State/Zipcode | Phone Number | | Organization | | | | + + + + + | [facility] | [address] | [place] [address] | | | SERVICES, CORE | [address] | | | + + + + + CAPILLARY BLOOD GLUCOSE (NO CHG), POC (12/05/2012 8:19 AM PDT) + +---------+ + + + | Component | Value | Ref Range | Performed | Pathologist | | | | | At | Signature | + +---------+ + + + | BLOOD | 111 (H) | 60 - 99 mg/dL | [...] + + + + | [facility] | [address] | [place], [place] | | | [facility] | [address] | [address] | | | TESTS | | | | + + + + + VANCOMYCIN, RANDOM (12/05/2012 8:15 AM PDT) + +-------+ + + + | Component | Value | Ref Range | Performed | Pathologist | | | | | At | Signature | + +-------+ + + + | VANCOMYCIN, | 22.0 | 5.0 - 50.0 | [facility] | | | RANDOM | | ug/mL | LABORATORY | | | | | [...] | + + + + + | [facility] | [address] | [place] [address] | | | SERVICES, CORE | [address] | | | + + + + + TROPONIN I, PLASMA (12/05/2012 8:15 AM PDT) + + + + + + | Component | Value | Ref Range | Performed | Pathologist | | | | | At | Signature | + + + + + + | TROPONIN I | 13.00 (H) | <0.80 ng/mL | [facility] | | | | | | LABORATORY [...] | + + + + + | [facility] | [address] | [place] [address] | | | SERVICES, CORE | [address] | | | + + + + + X-RAY PORTABLE CHEST 1 VIEW (12/05/2012 7:56 AM PDT) + + + + + + | Component | Value | Ref Range | Performed | Pathologist | | | | | At | Signature | + + + + + + | X-RAY | STUDY: DC CHEST 1 VIEW | | | | | PORTABLE | 12/05/12 07:56:00 | | | | | CHEST 1 | INDICATION: Sternotomy | | | | | VIEW | wire removal COMPARISON: | | | | | | Yesterday FINDINGS: ET | | | | | | tube, enteric tube, and | | | | | | right IJ are unchanged. | | | | | | Sternotomy wireshave | | | | | | been removed with new | | | | | | left chest tube. There | | | | | | is nopneumothorax. Lung | | | | | | volumes are diminished. | | | | | | There is persistent | | | | | | left greater thanright | | | | | | lower lobe atelectasis. | | | | | | There is no | | | | | | consolidation or | | | | | | pulmonaryedema. | | | | | | Osseous structures are | | | | | | unchanged. IMPRESSION: | | | | | | Removal of sternotomy | | | | | | wires with placement of | | | | | | left-sided chest tubeand | | | | | | pneumothorax. Stable | | | | | | bibasilar atelectasis. | | | | | | Attending Radiologists: | | | | | | TINY GARCIA, | | | | | | MDAuthor: HEIDI | | | | | | MD SPENCER I have | | | | | | personally viewed this | | | | | | procedure/exam, reviewed | | | | | | this report,and made | | | | | | changes to it where | | | | | | appropriate. | | | | | | Final/Electronically | | | | | | signed / TINY Suarez | | | | | | RADHA 12/05/2012 | | | | | | 11:36 AM | | | | + + [...] | | | + +---------+ + + CAPILLARY BLOOD GLUCOSE (NO CHG), POC (12/05/2012 6:00 AM PDT) + +---------+ + + + | Component | Value | Ref Range | Performed | Pathologist | | | | | At | Signature | + +---------+ + + + | BLOOD | 107 (H) | 60 - 99 mg/dL | [facility] | | | GLUCOSE, | | | [facility] | | | POC | | | [facility] | | | | | | [...] + | [facility] | [address] | [place], [place] | | | [facility] | [address] | [address] | | | TESTS | | | | + + + + + CAPILLARY BLOOD GLUCOSE (NO CHG), POC (12/05/2012 5:06 AM PDT) + +---------+ + + + | Component | Value | Ref Range | Performed | Pathologist | | | | | At | Signature | + +---------+ + + + | BLOOD | 114 (H) | 60 - 99 mg/dL | [...] + + + + | [facility] | [address] | [place], [place] | | | [facility] | [address] | [address] | | | TESTS | | | | + + + + + CAPILLARY BLOOD GLUCOSE (NO CHG), POC (12/05/2012 4:01 AM PDT) + +---------+ + + + | Component | Value | Ref Range | Performed | Pathologist | | | | | At | Signature | + +---------+ + + + | BLOOD | 127 (H) | 60 - 99 mg/dL | [...] | [facility] | [address] | [place], [place] | | | [facility] OF [facility] | [address] | [address] | | | TESTS | | | | + + + + + CBC (12/05/2012 4:00 AM PDT) + + + + + + | Component | Value | Ref Range | Performed | Pathologist | | | | | At | Signature | + + + + + + | WBC COUNT | 14.4 (H) | 4.4 - 11.0 K/cu | [facility] | | | | | mm | LABORATORY | | | | | | SERVICES, | | | | | | CORE | | + + + + + + | RED CELL | 2.67 (L) | 4.50 - 5.90 | [facility] | | | COUNT | | M/cu mm | LABORATORY | | | | | | SERVICES, | | | | | | CORE | | + + + + + + | HEMOGLOBIN | 8.4 (L) | 13.5 - 17.5 | [facility] | | | | | g/dL | LABORATORY | | | | | | SERVICES, | | | | | | CORE | | + + + + + + | HEMATOCRIT | 24.2 (L) | 41.0 - 53.0 % | [facility] | | | | | | LABORATORY | | | | | | SERVICES, | | | | | | CORE | | + + + + + + | MCV | 90.9 | 80.0 - 96.0 fL | [facility] | | | | | | LABORATORY | | | | | | SERVICES, | | | | | | CORE | | + + + + + + | MCHC | 34.6 | 33.4 - 35.5 | [facility] | | | | | g/dL | LABORATORY | | | | | | SERVICES, | | | | | | CORE | | + + + + + + | RDW | 15.3 (H) | 11.5 - 15.0 % | [facility] | | | | | | LABORATORY | | | | | | SERVICES, | | | | | | CORE | | + + + + + + | PLATELET | 126 (L) | 150 - 400 K/cu | [facility] [...] + | [facility] | [address] | [place] [address] | | | SERVICES, CORE | [address] | | | + + + + + MAGNESIUM, PLASMA (12/05/2012 4:00 AM PDT) + +---------+ + + + | Component | Value | Ref Range | Performed | Pathologist | | | | | At | Signature | + +---------+ + + + | MAGNESIUM,P | 2.8 (H) | 1.8 - 2.5 mg/dL | [facility] [...] | + + + + + | [facility] | [address] | [place] [address] | | | SERVICES, CORE | [address] | | | + + + + + COAGULOPATHY PANEL (INR,APTT,FIBRINOGEN) (12/05/2012 4:00 AM PDT) + + + + + + | Component | Value | Ref Range | Performed | Pathologist | | | | | At | Signature | + + + + + + | INR | 2.56 (H) | 0.90 - 1.20 INR | [facility] | | | | | | LABORATORY | | | | | | SERVICES, | | | | | | CORE | | + + + + + + | APTT | 38.9 (H) | 26.0 - 36.0 | [facility] | | | | | seconds | LABORATORY | | | | | | SERVICES, | | | | | | CORE | | + + + + + + | FIBRINOGEN | 580 (H) | 200 - 450 mg/dL | [facility] | | | LEVEL | | | LABORATORY | | | [...] with mech. valves (2.5 - 3.5) INR APTT | SERVICES, CORE | | Therapeutic Range: (75 - 120) sec | | | Heparin levels of 0.35 - 0.7 U/mL | | + + + + + + + + | Performing | Address | City/State/Zipcode | Phone Number | | Organization | | | | + + + + + | [facility] | [address] | [place] [address] | | | SERVICES, CORE | [address] | | | + + + + + COMPLETE METABOLIC SET (NA,K,CL,CO2,BUN,CREAT,GLUC,CA,AST,ALT,BILI TOTAL,ALK PHOS,ALB,PROT TOTAL) (12/05/2012 4:00 AM PDT) + + + + + + | Component | Value | Ref Range | Performed | Pathologist | | | | | At | Signature | + + + + + + | GLUCOSE, | 102 (H) | 60 - 99 mg/dL | [facility] | | | PLASMA | | | LABORATORY | | | (LAB) | | | SERVICES, | | | | | | CORE | | + + + + + + | BUN, PLASMA | 67 (H) | 6 - 20 mg/dL | [facility] | | | (LAB) | | | LABORATORY | | | | | | SERVICES, | | | | | | CORE | | + + + + + + | CREATININE | 4.06 (H) | 0.70 - 1.30 | [facility] | | | PLASMA | | mg/dL | LABORATORY | | | (LAB) | | | SERVICES, | | | | | | CORE | | + + + + + + | SODIUM, | 145 | 136 - 145 | [facility] | | | PLASMA | | mmol/L | LABORATORY | | | (LAB) | | | SERVICES, | | | | | | CORE | | + + + + + + | POTASSIUM, | 4.6 | 3.4 - 5.0 | [facility] | [...] + + + + | BILIRUBIN | 2.0 (H) | 0.3 - 1.2 mg/dL | [facility] | | | TOTAL | | | LABORATORY | | | | | | SERVICES, | | | | | | CORE | | + + + + + + | TOTAL | 5.5 (L) | 6.1 - 7.9 g/dL | [facility] | | | PROTEIN, | | | LABORATORY | | | PLASMA | | | SERVICES, | | | (LAB) | | | CORE | | + + + + + + | ALBUMIN, | 2.4 (L) | 3.5 - 4.7 g/dL | [facility] | | | PLASMA | | | LABORATORY | | | (LAB) | | | SERVICES, | | | | | | CORE | | + + + + + + | ALK PHOS | 142 (H) | 56 - 119 U/L | [facility] | | | | | | LABORATORY | | | | | | SERVICES, | | | | | | CORE | | + + + + + + | AST(SGOT) | 13,793 (H) | 15 - 41 U/L | [facility] | | | | | | LABORATORY | | | | | | SERVICES, | | | | | | CORE | | + + + + + + | ALT (SGPT) | 5,937 (H) | 12 - 60 U/L | [facility] | | | | | | LABORATORY | | | | | | SERVICES, | | | | | | CORE | | + + + + + + | ANION | 22 (H) | 4 - 11 mmol/L | [...] + + + + + + | BILI T CMNT | No Hemo | | [facility] | | | | | | LABORATORY | | | | | | SERVICES, | | | | | | CORE | | + + + + + + | AST CMNT | No Hemo | | [facility] | | | | | | LABORATORY | | | | | | SERVICES, | | | | | | CORE | | + + + + + + | ANION GAP | 18 (H) | 4 - 11 mmol/L | [...] + | [facility] | [address] | [place] [address] | | | SERVICES, CORE | [address] | | | + + + + + LACTIC ACID (12/05/2012 4:00 AM PDT) + +-------+ + + + | Component | Value | Ref Range | Performed | Pathologist | | | | | At | Signature | + +-------+ + + + | LACTATE | 7.4 | mmol/L | [facility] | | | | | | LABORATORY | | | | | | SERVICES, | | | | | | CORE | | + +-------+ + + + + + | Specimen | + + | Blood - Blood | + + + + + | Narrative | Performed At | + + + | Reference Range: Venous blood: 0.5 - 2.2 mmol/L | [facility] | | Arterial blood: 0.5 - 1.6 mmol/L | LABORATORY | | | SERVICES, CORE | + + + + + + + + | Performing | Address | City/State/Zipcode | Phone Number | | Organization | | | | + + + + + | [facility] | [address] | [place] [address] | | | SERVICES, TOI | [address] | | | + + + + + BLOOD GASES, ARTERIAL - LAB (12/05/2012 3:15 AM PDT) + + + + + + | Component | Value | Ref Range | Performed | Pathologist | | | | | At | Signature | + + + + + + | PAT TEMP | 37.3 | Degree C | [facility] | | | ARTERIAL | | | LABORATORY | | | | | | SERVICES, | | | | | | CORE | | + + + + + + | FIO2 | .55 | | [facility] | | | ARTERIAL | | | LABORATORY | | | | | | SERVICES, | | | | | | CORE | | + + + + + + | PH ARTERIAL | 7.45 (H) | 7.37 - 7.44 | [facility] | | | | | | LABORATORY | | | | | | SERVICES, | | | | | | CORE | | + + + + + + | PCO2 | 34 | 32 - 43 mmHg | [facility] | | | ARTERIAL | | | LABORATORY | | | | | | SERVICES, | | | | | | CORE | | + + + + + + | PO2 | 91 | 72 - 104 mmHg | [facility] | | | ARTERIAL | | | LABORATORY | | | | | | SERVICES, | | | | | | CORE | | + + + + + + | HCO3 | 23 | 21 - 28 mmol/L | [facility] | | | ARTERIAL | | | LABORATORY | | | | | | SERVICES, | | | | | | CORE | | + + + + + + | TOTAL CO2 | 24 | 22 - 28 mmol/L | [facility] | | | ARTERIAL | | | LABORATORY | | | | | | SERVICES, | | | | | | CORE | | + + + + + + | BASE EXCESS | -0.1 | | [facility] | | | ARTERIAL | | | LABORATORY | | | | | | SERVICES, | | | | | | CORE | | + + + + + + | O2 SAT, | 97.1 | 92.0 - 98.0 | [facility] | | | ARTERIAL | | | LABORATORY | | | [...] + | [facility] | [address] | [place] [address] | | | SERVICES, CORE | [address] | | | + + + + + CAPILLARY BLOOD GLUCOSE (NO CHG), POC (12/05/2012 3:04 AM PDT) + +---------+ + + + | Component | Value | Ref Range | Performed | Pathologist | | | | | At | Signature | + +---------+ + + + | BLOOD | 120 (H) | 60 - 99 mg/dL | [...] + + + + + | [facility] | [address] | [place], [place] | | | [facility] OF [facility] | [address] | [address] | | | TESTS | | | | + + + + + 12 LEAD ECG (12/05/2012 2:53 AM PDT) + + + + + + | Component | Value | Ref Range | Performed | Pathologist | | | | | At | Signature | + + + + + + | VENTRICULAR | 83 | BPM | [facility] | | | RATE | | | OF | | | | | | CARDIOLOGY | | + + + + + + | ATRIAL RATE | 83 | BPM | [facility] | | | | | | OF | | | | | | CARDIOLOGY | | + + + + + + | P-R | 140 | ms | [facility] | | | INTERVAL | | | OF | | | | | | CARDIOLOGY | | + + + + + + | QRS | 104 | ms | [facility] | | | DURATION | | | OF | | | | | | CARDIOLOGY | | + + + + + + | QT | 358 | ms | [facility] | | | | | | OF | | | | | | CARDIOLOGY | | + + + + + + | QTC | 420 | ms | [facility] | | | | | | OF | | | | | | CARDIOLOGY | | + + + + + + | P AXIS | 44 | degrees | [facility] | | | | | | OF | | | | | | CARDIOLOGY | | + + + + + + | R AXIS | 109 | degrees | [facility] | | | | | | OF | | | | | | CARDIOLOGY | | + + + + + + | T AXIS | 88 | degrees | [facility] | | | | | | OF | | | | | | CARDIOLOGY | | + + + + + + | EKG | Poor data quality, | | [facility] | | | DIAGNOSIS | interpretation may be | | OF | | | | adversely affectedNormal | | CARDIOLOGY | | | | sinus rhythmRightward | | | | | | axisAnterior infarct , | | | | | | age undeterminedAbnormal | | | | | | ECGConfirmed by | | | | | | PAKO ROSA ([id number]) on | | | | | | 12/05/2012 9:21:37 PM | | | | + + + + + + + + | Specimen | + + | | + + + + + | Narrative | Performed At | + + + | Please click | [facility] | | on view image for the detailed interpretation from [employer] results. | CARDIOLOGY | + + + + + + + + | Performing | Address | City/State/Zipcode | Phone Number | | Organization | | | | + + + + + | [facility] | [address] | [place], [place] | | | CARDIOLOGY | [address] | [address] | | + + + + + SAGAR TREVINO ONLY (12/05/2012 2:14 AM PDT) + + + + + + | [...] + + + + | APPEARANCE | Mod. Cloudy | (none) | [facility] | | | [...] + + + + | PROTEIN(LAB | 30.0 | Negative, 30.0 | [facility] | | [...] + + + + | BLOOD | Moderate (A) | Negative | [facility] | | | [...] + + + + | SPECIFIC | 1.008 | 1.005 - 1.030 | [facility] | | | GRAVITY | | | [...] | + + + + + | [facility] | [address] | [place] [address] | | | SERVICES, CORE | [address] | | | + + + + + CAPILLARY BLOOD GLUCOSE (NO CHG), POC (12/05/2012 1:56 AM PDT) + +---------+ + + + | Component | Value | Ref Range | Performed | Pathologist | | | | | At | Signature | + +---------+ + + + | BLOOD | 135 (H) | 60 - 99 mg/dL | [facility] - | | | GLUCOSE, | | [...] + | [facility] | [address] | [place], [place] | | | [facility] | [facility] | [address] | | | TESTS | | | | + + + + + CAPILLARY BLOOD GLUCOSE (NO CHG), POC (12/05/2012 1:06 AM PDT) + +---------+ + + + | Component | Value | Ref Range | Performed | Pathologist | | | | | At | Signature | + +---------+ + + + | BLOOD | 140 (H) | 60 - 99 mg/dL | [...] | [facility] | [address] | [place], [place] | | | KAILYN MAZA OF [facility] | [address] | [address] | | | TESTS | | | | + + + + + CAPILLARY BLOOD GLUCOSE (NO CHG), POC (12/05/2012 12:14 AM PDT) + +---------+ + + + | Component | Value | Ref Range | Performed | Pathologist | | | | | At | Signature | + +---------+ + + + | BLOOD | 174 (H) | 60 - 99 mg/dL | [...] + + | [facility] | [address] | [place], [place] | | | [facility] | [address] | [address] | | | TESTS | | | | + + + + + X-RAY ABD LTD FEEDING TUBE EVAL (12/05/2012 12:10 AM PDT) + + + + + + | Component | Value | Ref Range | Performed | Pathologist | | | | | At | Signature | + + + + + + | ABD LTD | Serial frontal views of | | | | | FEEDING | the abdomen. History: | | | | | TUBE EVAL | Feeding tube placement. | | | | | | Comparison: None | | | | | | available. FINDINGS: On | | | | | | the first radiograph, | | | | | | performed supine | | | | | | 12/04/2012 11:50 | | | | | | p.m.,wires, leads, and | | | | | | tubing obscure portions | | | | | | of the | | | | | | radiograph.Esophagogastr | | | | | | ic tube extends into the | | | | | | proximal stomach, | | | | | | sidehole justbeyond the | | | | | | GE junction. | | | | | | Cardiomegaly with | | | | | | retrocardiac opacity | | | | | | whichmay reflect | | | | | | atelectasis or | | | | | | pneumonia. On the second | | | | | | radiograph, performed | | | | | | 12/05/2012 at 12:04 | | | | | | a.m.,esophagogastric | | | | | | tube has been advanced | | | | | | slightly. Exam | | | | | | otherwiseunchanged. No | | | | | | evidence of bowel | | | | | | obstruction. Supine | | | | | | technique isinsensitive | | | | | | for detection of free | | | | | | intraperitoneal air. | | | | | | Both radiographs | | | | | | demonstrate lucent | | | | | | air-filled esophagus, | | | | | | whichshould be | | | | | | correlated clinically. | | | | | | IMPRESSION: Serial | | | | | | radiographs obtained for | | | | | | NG tube placement | | | | | | demonstrate | | | | | | finalplacement with tip | | | | | | in the mid stomach. | | | | | | Cardiomegaly | | | | | | withretrocardiac opacity | | | | | | which may represent | | | | | | atelectasis or | | | | | | pneumonia. Air-filled | | | | | | esophagus/mediastinal | | | | | | tubelike structure which | | | | | | should becorrelated | | | | | | clinically. Attending | | | | | | Radiologists: AYAN | | | | | | TIGRE CHAMORROuthor: | | | | | | AYAN CHAMORRO MD I | | | | | | have personally viewed | | | | | | this procedure/exam, | | | | | | reviewed this report,and | | | | | | made changes to it | | | | | | where appropriate. | | | | | | Final/Electronically | | | | | | signed / AYAN | | | | | | ASHTYN 12/05/2012 9:07 | | | | | | AM | | | | + + + + + + + + | Specimen | + + | | + + + +---------+ + + | Performing | Address | City/State/Zipcode | Phone Number | | Organization | | | | + +---------+ + + | [facility] | | | | | RADIOLOGY | | | | + +---------+ + + TROPONIN I, PLASMA (12/05/2012 12:05 AM PDT) + + + + + + | Component | Value | Ref Range | Performed | Pathologist | | | | | At | Signature | + + + + + + | TROPONIN I | 11.20 (H) | <0.80 ng/mL | [facility] | | [...] + | [facility] | [address] | [place] [address] | | | SERVICES, CORE | [address] | | | + + + + + TROPONIN I, PLASMA (12/05/2012 12:01 AM PDT) + + + + + + | Component | Value | Ref Range | Performed | Pathologist | | | | | At | Signature | + + + + + + | TROPONIN I | 11.80 (H) | <0.80 ng/mL | [facility] | | [...] | + + + + + | [facility] | [address] | [place] [address] | | | SERVICES, CORE | [address] | | | + + + + + X-RAY ABD LTD FEEDING TUBE EVAL (12/04/2012 11:55 PM PDT) + + + + + + | Component | Value | Ref Range | Performed | Pathologist | | | | | At | Signature | + + + + + + | ABD LTD | Serial frontal views of | | | | | FEEDING | the abdomen. History: | | | | | TUBE EVAL | Feeding tube placement. | | | | | | Comparison: None | | | | | | available. FINDINGS: On | | | | | | the first radiograph, | | | | | | performed supine | | | | | | 12/04/2012 11:50 | | | | | | p.m.,wires, leads, and | | | | | | tubing obscure portions | | | | | | of the | | | | | | radiograph.Esophagogastr | | | | | | ic tube extends into the | | | | | | proximal stomach, | | | | | | sidehole justbeyond the | | | | | | GE junction. | | | | | | Cardiomegaly with | | | | | | retrocardiac opacity | | | | | | whichmay reflect | | | | | | atelectasis or | | | | | | pneumonia. On the second | | | | | | radiograph, performed | | | | | | 12/05/2012 at 12:04 | | | | | | a.m.,esophagogastric | | | | | | tube has been advanced | | | | | | slightly. Exam | | | | | | otherwiseunchanged. No | | | | | | evidence of bowel | | | | | | obstruction. Supine | | | | | | technique isinsensitive | | | | | | for detection of free | | | | | | intraperitoneal air. | | | | | | Both radiographs | | | | | | demonstrate lucent | | | | | | air-filled esophagus, | | | | | | whichshould be | | | | | | correlated clinically. | | | | | | IMPRESSION: Serial | | | | | | radiographs obtained for | | | | | | NG tube placement | | | | | | demonstrate | | | | | | finalplacement with tip | | | | | | in the mid stomach. | | | | | | Cardiomegaly | | | | | | withretrocardiac opacity | | | | | | which may represent | | | | | | atelectasis or | | | | | | pneumonia. Air-filled | | | | | | esophagus/mediastinal | | | | | | tubelike structure which | | | | | | should becorrelated | | | | | | clinically. Attending | | | | | | Radiologists: AYAN | | | | | | TIGRE CHAMORROuthor: | | | | | | AYAN CHAMORRO MD I | | | | | | have personally viewed | | | | | | this procedure/exam, | | | | | | reviewed this report,and | | | | | | made changes to it | | | | | | where appropriate. | | | | | | Final/Electronically | | | | | | zen / AYAN | | | | | | ASHTYN 12/05/2012 9:07 | | | | | | AM | | | | + + + + + + + + | Specimen | + + | | + + + +---------+ + + | Performing | Address | City/State/Zipcode | Phone Number | | Organization | | | | + +---------+ + + | [facility] DEPARTMENT OF | | | | | RADIOLOGY | | | | + +---------+ + + CAPILLARY BLOOD GLUCOSE (NO CHG), POC (12/04/2012 10:54 PM PDT) + +---------+ + + + | Component | Value | Ref Range | Performed | Pathologist | | | | | At | Signature | + +---------+ + + + | BLOOD | 181 (H) | 60 - 99 mg/dL | [...] + + + + | [facility] | [address] | [place], [place] | | | [facility] | [facility] | [id number] | | | TESTS | | | | + + + + + COAGULOPATHY PANEL (INR,APTT,FIBRINOGEN) (12/04/2012 10:45 PM PDT) + + + + + + | Component | Value | Ref Range | Performed | Pathologist | | | | | At | Signature | + + + + + + | INR | 2.69 (H) | 0.90 - 1.20 INR | [facility] | | | | | | LABORATORY | | | | | | SERVICES, | | | | | | CORE | | + + + + + + | APTT | 40.5 (H) | 26.0 - 36.0 | [facility] | | | | | seconds | LABORATORY | | | | | | SERVICES, | | | | | | CORE | | + + + + + + | FIBRINOGEN | 592 (H) | 200 - 450 mg/dL | [facility] | | | LEVEL | | | LABORATORY | | | [...] with mech. valves (2.5 - 3.5) INR APTT | SERVICES, CORE | | Therapeutic Range: (75 - 120) sec | | | Heparin levels of 0.35 - 0.7 U/mL | | + + + + + + + + | Performing | Address | City/State/Zipcode | Phone Number | | Organization | | | | + + + + + | [facility] | [address] | [place] [address] | | | SERVICES, TOI | [address] BENJAMIN | | | + + + + + COMPLETE METABOLIC SET (NA,K,CL,CO2,BUN,CREAT,GLUC,CA,AST,ALT,BILI TOTAL,ALK PHOS,ALB,PROT TOTAL) (12/04/2012 10:45 PM PDT) + + + + + + | Component | Value | Ref Range | Performed | Pathologist | | | | | At | Signature | + + + + + + | GLUCOSE, | 142 (H) | 60 - 99 mg/dL | [facility] | | | PLASMA | | | LABORATORY | | | (LAB) | | | SERVICES, | | | | | | CORE | | + + + + + + | BUN, PLASMA | 66 (H) | 6 - 20 mg/dL | [facility] | | | (LAB) | | | LABORATORY | | | | | | SERVICES, | | | | | | CORE | | + + + + + + | CREATININE | 3.76 (H) | 0.70 - 1.30 | [facility] | | | PLASMA | | mg/dL | LABORATORY | | | (LAB) | | | SERVICES, | | | | | | CORE | | + + + + + + | SODIUM, | 145 | 136 - 145 | [facility] | | | PLASMA | | mmol/L | LABORATORY | | | (LAB) | | | SERVICES, | | | | | | CORE | | + + + + + + | POTASSIUM, | 4.4 | 3.4 - 5.0 | [facility] | [...] + + + | TOTAL CO2, | 19 (L) | 21 - 32 mmol/L | [...] + + + + | BILIRUBIN | 2.1 (H) | 0.3 - 1.2 mg/dL | [facility] | | | TOTAL | | | LABORATORY | | | | | | SERVICES, | | | | | | CORE | | + + + + + + | TOTAL | 5.4 (L) | 6.1 - 7.9 g/dL | [facility] | | | PROTEIN, | | | LABORATORY | | | PLASMA | | | SERVICES, | | | (LAB) | | | CORE | | + + + + + + | ALBUMIN, | 2.5 (L) | 3.5 - 4.7 g/dL | [facility] | | | PLASMA | | | LABORATORY | | | (LAB) | | | SERVICES, | | | | | | CORE | | + + + + + + | ALK PHOS | 121 (H) | 56 - 119 U/L | [facility] | | | | | | LABORATORY | | | | | | SERVICES, | | | | | | CORE | | + + + + + + | AST(SGOT) | 9,383 (H) | 15 - 41 U/L | [facility] | | | | | | LABORATORY | | | | | | SERVICES, | | | | | | CORE | | + + + + + + | ALT (SGPT) | 4,324 (H) | 12 - 60 U/L | [facility] | | | | | | LABORATORY | | | | | | SERVICES, | | | | | | CORE | | + + + + + + | ANION | 26 (H) | 4 - 11 mmol/L | [...] + + + + + + | BILI T CMNT | No Hemo | | [facility] | | | | | | LABORATORY | | | | | | SERVICES, | | | | | | CORE | | + + + + + + | AST CMNT | No Hemo | | [facility] | | | | | | LABORATORY | | | | | | SERVICES, | | | | | | CORE | | + + + + + + | ANION GAP | 23 (H) | 4 - 11 mmol/L | [...] + + | [facility] | [address] | [place] [address] | | | SERVICES, CORE | [address] | | | + + + + + LACTIC ACID (12/04/2012 10:45 PM PDT) + +-------+ + + + | Component | Value | Ref Range | Performed | Pathologist | | | | | At | Signature | + +-------+ + + + | LACTATE | 12.6 | mmol/L | [facility] | | | | | | LABORATORY | | | | | | SERVICES, | | | | | | CORE | | + +-------+ + + + + + | Specimen | + + | Blood - Blood | + + + + + | Narrative | Performed At | + + + | Reference Range: Venous blood: 0.5 - 2.2 mmol/L | [facility] | | Arterial blood: 0.5 - 1.6 mmol/L | LABORATORY | | | SERVICES, CORE | + + + + + + + + | Performing | Address | City/State/Zipcode | Phone Number | | Organization | | | | + + + + + | [facility] | [address] | [place] [address] | | | TANIA, TOI | [address] | | | + + + + + CAPILLARY BLOOD GLUCOSE (NO CHG), POC (12/04/2012 9:20 PM PDT) + +---------+ + + + | Component | Value | Ref Range | Performed | Pathologist | | | | | At | Signature | + +---------+ + + + | BLOOD | 174 (H) | 60 - 99 mg/dL | [facility] - | | | GLUCOSE, | | [...] | [facility] | [address] | [place], [place] | | | [facility] | [address] | [address] | | | TESTS | | | | + + + + + VANCOMYCIN, RANDOM (12/04/2012 9:15 PM PDT) + +-------+ + + + | Component | Value | Ref Range | Performed | Pathologist | | | | | At | Signature | + +-------+ + + + | VANCOMYCIN, | 27.9 | 5.0 - 50.0 | [facility] | | | RANDOM | | ug/mL | LABORATORY | | | | | [...] | + + + + + | [facility] | [address] | [place] [address] | | | SERVICES, CORE | [address] | | | + + + + + VASC LAB PORTABLE VENOUS DUPLEX LOWER EXTREMITY BILATERAL COMPLETE (12/04/2012 7:35 PM PDT ) + + + + + + | Component | Value | Ref Range | Performed | Pathologist | | | | | At | Signature | + + + + + + | VASC LAB | LOWER EXTREMITY VENOUS | | | | | PORTABLE | DUPLEX STUDY: | | | | | VENOUS | 12/04/2012 Dictated | | | | | DUPLEX | 12/04/2012 FINDINGS: | | | | | LOWER | The deep and | | | | | EXTREMITY | superficial veins of the | | | | | BILATERAL | lower extremitieswere | | | | | COMPLETE | evaluated. In the | | | | | | right leg, there is | | | | | | superficial thrombus | | | | | | inthe greater saphenous | | | | | | vein with no deep vein | | | | | | thrombus noted. In | | | | | | theleft leg, no deep or | | | | | | superficial venous | | | | | | thrombosis was noted. | | | | | | IMPRESSION: Abnormal | | | | | | examination with | | | | | | evidence of right leg | | | | | | superficial | | | | | | venousthrombosis | | | | | | involving the greater | | | | | | saphenous vein. No | | | | | | deep veinthrombus in | | | | | | either extremity. | | | | | | END IMPRESSION | | | | | | Attending Radiologists: | | | | | | ,Author: DUTCH | | | | | | MD DIANA I have | | | | | | personally viewed this | | | | | | procedure/exam, reviewed | | | | | | this report,and made | | | | | | changes to it where | | | | | | appropriate. | | | | | | Final/Electronically | | | | | | zen / DUTCH | | | | | | DIANA Preliminary / | | | | | | Tasha Gooden | | | | + + + + + + + + | Specimen | + + | | + + + +---------+ + + | Performing | Address | City/State/Zipcode | Phone Number | | Organization | | | | + +---------+ + + | [facility] DEPART[facility] OF | | | | | RADIOLOGY | | | | + +---------+ + + ARTERIAL LINE (12/04/2012 7:08 PM PDT) + + + | Narrative | Performed At | + + + | Precious Alvarado MD 12/04/2012 6:30 PM Procedure Note: | | | Arterial Line Name: Josef Ramos 12/04/2012 | | | Time: 6:28 PM Diagnosis: Persistent hypotension, cardiogenic | | | shock, CAD s/p CABG x3 At 1500 (time), prior to the beginning of | | | the procedure, the team paused to verify the patient | | | | | | s identity, the procedure to be performed (in accordance with the | | | consent,) and the correct side/site. The patient was positioned | | | appropriately. All relevant images and results were properly labeled | | | and displayed. We addressed antibiotic prophylaxis and fluids for | | | irrigation as applicable to this patient. Any safety precautions | | | were addressed. Indication: Invasive BP monitoring, frequent | | | blood draws Consent: Discussion of the risks, benefits, and | | | alternatives was not possible due to urgency of the procedure and | | | patient's condition prior to the procedure. Procedure | | | Details: A Team Pause was performed. Allens' test was not | | | performed. The patient was prepared with a sterile prep. A 20G | | | gauge catheter was inserted in the L radial artery. Findings: | | | There were no changes to the patient's vital signs. The patient | | | did tolerate the procedure well. PRECIOUS ALVARADO MD | | + + + + + | Procedure Note | + + | Precious Alvarado MD - 12/04/2012 6:27 PM PDT Procedure Note: Arterial Line Name: | | Josef Ramos Time: 6:28 PMDiagnosis: Persistent | | hypotension, cardiogenic shock, CAD s/p CABG x3At 1500 (time), prior to the beginning of | | the procedure, the team paused to verify the patient | | | | s identity, the procedure to be performed (in accordance with the consent,) and the | | correct side/site. The patient was positioned appropriately. All relevant images and | | results were properly labeled and displayed. We addressed antibiotic prophylaxis and | | fluids for irrigation as applicable to this patient. Any safety precautions were | | addressed.Indication: Invasive BP monitoring, frequent blood drawsConsent: Discussion | | of the risks, benefits, and alternatives was not possible due to urgency of the | | procedure and patient's condition prior to the procedure. Procedure Details: A Team | | Pause was performed. Allens' test was not performed. The patient was prepared with a | | sterile prep. A 20G gauge catheter was inserted in the L radial artery. Findings: | | There were no changes to the patient's vital signs. The patient did tolerate the | | procedure well.PRECIOUS ALVARADO MD | |Findings: There were no changes to the patient's vital signs. The patient did tolerate the procedure well. | | | | | |PRECIOUS ALVARADO MD | + + LACTIC ACID (12/04/2012 7:02 PM PDT) + +-------+ + + + | Component | Value | Ref Range | Performed | Pathologist | | | | | At | Signature | + +-------+ + + + | LACTATE | 15.0 | mmol/L | [facility] | | | | | | LABORATORY | | | | | | SERVICES, | | | | | | CORE | | + +-------+ + + + + + | Specimen | + + | Blood - Blood | + + + + + | Narrative | Performed At | + + + | Reference Range: Venous blood: 0.5 - 2.2 mmol/L | [facility] | | Arterial blood: 0.5 - 1.6 mmol/L | LABORATORY | | | SERVICES, CORE | + + + + + + + + | Performing | Address | City/State/Zipcode | Phone Number | | Organization | | | | + + + + + | [facility] | [address] | [place] [address] | | | SERVICES, CORE | [address] | | | + + + + + BLOOD GASES, ARTERIAL - LAB (12/04/2012 7:02 PM PDT) + + + + + + | Component | Value | Ref Range | Performed | Pathologist | | | | | At | Signature | + + + + + + | PAT TEMP | NG | Degree C | [facility] | | | ARTERIAL | | | LABORATORY | | | | | | SERVICES, | | | | | | CORE | | + + + + + + | FIO2 | 1.0 | | [facility] | | | ARTERIAL | | | LABORATORY | | | | | | SERVICES, | | | | | | CORE | | + + + + + + | PH ARTERIAL | 7.32 (L) | 7.37 - 7.44 | [facility] | | | | | | LABORATORY | | | | | | SERVICES, | | | | | | CORE | | + + + + + + | PCO2 | 33 | 32 - 43 mmHg | [facility] | | | ARTERIAL | | | LABORATORY | | | | | | SERVICES, | | | | | | CORE | | + + + + + + | PO2 | 234 (H) | 72 - 104 mmHg | [facility] | | | ARTERIAL | | | LABORATORY | | | | | | SERVICES, | | | | | | CORE | | + + + + + + | HCO3 | 17 (L) | 21 - 28 mmol/L | [facility] | | | ARTERIAL | | | LABORATORY | | | | | | SERVICES, | | | | | | CORE | | + + + + + + | TOTAL CO2 | 18 (L) | 22 - 28 mmol/L | [facility] | | | ARTERIAL | | | LABORATORY | | | | | | SERVICES, | | | | | | CORE | | + + + + + + | BASE EXCESS | -8.2 | | [facility] | | | ARTERIAL | | | LABORATORY | | | | | | SERVICES, | | | | | | CORE | | + + + + + + | O2 SAT, | 99.4 (H) | 92.0 - 98.0 | [facility] | | | ARTERIAL | | | LABORATORY | | | [...] | + + + + + | [facility] | [address] | [place] [address] | | | SERVICES, CORE | [address] | | | + + + + + COMPLETE METABOLIC SET (NA,K,CL,CO2,BUN,CREAT,GLUC,CA,AST,ALT,BILI TOTAL,ALK PHOS,ALB,PROT TOTAL) (12/04/2012 7:01 PM PDT) + + + + + + | Component | Value | Ref Range | Performed | Pathologist | | | | | At | Signature | + + + + + + | GLUCOSE, | 117 (H) | 60 - 99 mg/dL | [facility] | | | PLASMA | | | LABORATORY | | | (LAB) | | | SERVICES, | | | | | | CORE | | + + + + + + | BUN, PLASMA | 58 (H) | 6 - 20 mg/dL | [facility] | | | (LAB) | | | LABORATORY | | | | | | SERVICES, | | | | | | CORE | | + + + + + + | CREATININE | 3.46 (H) | 0.70 - 1.30 | [facility] | | | PLASMA | | mg/dL | LABORATORY | | | (LAB) | | | SERVICES, | | | | | | CORE | | + + + + + + | SODIUM, | 147 (H) | 136 - 145 | [facility] | | | PLASMA | | mmol/L | LABORATORY | | | (LAB) | | | SERVICES, | | | | | | CORE | | + + + + + + | POTASSIUM, | 4.5 | 3.4 - 5.0 | [facility] | [...] + + + | TOTAL CO2, | 17 (L) | 21 - 32 mmol/L | [facility] | | | PLASMA | | | LABORATORY | | | (LAB) | | | SERVICES, | | | | | | CORE | | + + + + + + | CALCIUM, | 9.1 | 8.6 - 10.2 | [facility] | | | PLASMA | | mg/dL | LABORATORY | | | (LAB) | | | SERVICES, | | | | | | CORE | | + + + + + + | BILIRUBIN | 1.8 (H) | 0.3 - 1.2 mg/dL | [facility] | | | TOTAL | | | LABORATORY | | | | | | SERVICES, | | | | | | CORE | | + + + + + + | TOTAL | 5.5 (L) | 6.1 - 7.9 g/dL | [facility] | | | PROTEIN, | | | LABORATORY | | | PLASMA | | | SERVICES, | | | (LAB) | | | CORE | | + + + + + + | ALBUMIN, | 2.4 (L) | 3.5 - 4.7 g/dL | [facility] | | | PLASMA | | | LABORATORY | | | (LAB) | | | SERVICES, | | | | | | CORE | | + + + + + + | ALK PHOS | 121 (H) | 56 - 119 U/L | [facility] | | | | | | LABORATORY | | | | | | SERVICES, | | | | | | CORE | | + + + + + + | AST(SGOT) | 5,997 (H) | 15 - 41 U/L | [facility] | | | | | | LABORATORY | | | | | | SERVICES, | | | | | | CORE | | + + + + + + | ALT (SGPT) | 3,108 (H) | 12 - 60 U/L | [facility] | | | | | | LABORATORY | | | | | | SERVICES, | | | | | | CORE | | + + + + + + | ANION | 29 (H) | 4 - 11 mmol/L | [facility] | | | GAP(ALB | | | LABORATORY | | | CORRECTED) | | | SERVICES, | | | | | | CORE | | + + + + + + | ANION GAP | 25 (H) | 4 - 11 mmol/L | [...] | + + + + + | [facility] | [address] | [place] [address] | | | SERVICES, CORE | [address] | | | + + + + + CBC (12/04/2012 7:01 PM PDT) + + + + + + | Component | Value | Ref Range | Performed | Pathologist | | | | | At | Signature | + + + + + + | WBC | 13.7 (H)Comment: Final | 4.4 - 11.0 K/cu | [facility] | | | ADJUSTED | WBC report. WBC count | mm | LABORATORY | | | | adjusted for NRBCs. | | SERVICES, | | | | | | CORE | | + + + + + + | RED CELL | 2.74 (L) | 4.50 - 5.90 | [facility] | | | COUNT | | M/cu mm | LABORATORY | | | | | | SERVICES, | | | | | | CORE | | + + + + + + | HEMOGLOBIN | 8.6 (L) | 13.5 - 17.5 | [facility] | | | | | g/dL | LABORATORY | | | | | | SERVICES, | | | | | | CORE | | + + + + + + | HEMATOCRIT | 25.7 (L) | 41.0 - 53.0 % | [facility] | | | | | | LABORATORY | | | | | | SERVICES, | | | | | | CORE | | + + + + + + | MCV | 94.0 | 80.0 - 96.0 fL | [facility] | | | | | | LABORATORY | | | | | | SERVICES, | | | | | | CORE | | + + + + + + | MCHC | 33.6 | 33.4 - 35.5 | [facility] | | | | | g/dL | LABORATORY | | | | | | SERVICES, | | | | | | CORE | | + + + + + + | RDW | 15.3 (H) | 11.5 - 15.0 % | [facility] | | | | | | LABORATORY | | | | | | SERVICES, | | | | | | CORE | | + + + + + + | PLATELET | 124 (L)Comment: Final | 150 - 400 K/cu | [facility] | | | COUNT | platelet report. | mm | LABORATORY | | | [...] | + + + + + | [facility] | [address] | [place] [address] | | | SERVICES, CORE | [address] | | | + + + + + COAGULOPATHY PANEL (INR,APTT,FIBRINOGEN) (12/04/2012 7:01 PM PDT) + + + + + + | Component | Value | Ref Range | Performed | Pathologist | | | | | At | Signature | + + + + + + | INR | 2.55 (H) | 0.90 - 1.20 INR | [facility] | | | | | | LABORATORY | | | | | | SERVICES, | | | | | | CORE | | + + + + + + | APTT | 46.0 (H) | 26.0 - 36.0 | [facility] | | | | | seconds | LABORATORY | | | | | | SERVICES, | | | | | | CORE | | + + + + + + | FIBRINOGEN | 628 (H) | 200 - 450 mg/dL | [facility] | | | LEVEL | | | LABORATORY | | | [...] with mech. valves (2.5 - 3.5) INR APTT | [facility] [place] | | Therapeutic Range: (75 - 120) sec | | | Heparin levels of 0.35 - 0.7 U/mL | | + + + + + + + + | Performing | Address | City/State/Zipcode | Phone Number | | Organization | | | | + + + + + | [facility] | [address] | [place] [address] | | | [place] | [address] | | | + + + + + MAGNESIUM, PLASMA (12/04/2012 7:01 PM PDT) + +---------+ + + + | Component | Value | Ref Range | Performed | Pathologist | | | | | At | Signature | + +---------+ + + + | MAGNESIUM,P | 3.3 (H) | 1.8 - 2.5 mg/dL | [facility] [...] + + | [facility] | [address] | [place] [address] | | | SERVICES, CORE | [address] | | | + + + + + RENAL FUNCTION SET (NA,K,CL,CO2,BUN,CREAT,GLUC,CA,PHOS,ALB ) (12/04/2012 7:01 PM PDT) + + + + + + | Component | Value | Ref Range | Performed | Pathologist | | | | | At | Signature | + + + + + + | GLUCOSE, | 114 (H) | 60 - 99 mg/dL | [facility] | | | PLASMA | | | LABORATORY | | | (LAB) | | | SERVICES, | | | | | | CORE | | + + + + + + | BUN, PLASMA | 59 (H) | 6 - 20 mg/dL | [facility] | | | (LAB) | | | LABORATORY | | | | | | SERVICES, | | | | | | CORE | | + + + + + + | CREATININE | 3.44 (H) | 0.70 - 1.30 | [facility] | | | PLASMA | | mg/dL | LABORATORY | | | (LAB) | | | SERVICES, | | | | | | CORE | | + + + + + + | SODIUM, | 145 | 136 - 145 | [facility] | | | PLASMA | | mmol/L | LABORATORY | | | (LAB) | | | SERVICES, | | | | | | CORE | | + + + + + + | POTASSIUM, | 4.4 | 3.4 - 5.0 | [facility] | [...] + + + | TOTAL CO2, | 16 (L) | 21 - 32 mmol/L | [...] + + + + | ALBUMIN, | 2.6 (L) | 3.5 - 4.7 g/dL | [facility] | | | PLASMA | | | LABORATORY | | | (LAB) | | | SERVICES, | | | | | | CORE | | + + + + + + | PHOSPHORUS, | 8.5 (H) | 2.4 - 4.7 mg/dL | [facility] | | | PLASMA [...] + + + | ANION GAP | 25 (H) | 4 - 11 mmol/L | [facility] | | | | | | LABORATORY | | | | | | SERVICES, | | | | | | CORE | | + + + + + + | ANION | 28 (H) | 4 - 11 mmol/L | [...] | + + + + + | [facility] | [address] | [place] [address] | | | SERVICES, CORE | [address] | | | + + + + + ANTIBODY SCREEN (12/04/2012 4:52 PM PDT) + + + + + + | Component | Value | Ref Range | Performed | Pathologist | | | | | At | Signature | + + + + + + | Antibody | Negative | | [facility] | | | Screen | | | LABORATORY | | | | | | SERVICES, | | | | | | TRANSFUSION | | | | | | MEDICINE | | + + + + + + + + | Specimen | + + | Blood - Blood | + + + + + + + | Performing | Address | City/State/Zipcode | Phone Number | | Organization | | | | + + + + + | [facility] | [address] | [place] [address] | | | SERVICES, | [address] | | | | TRANSFUSION MEDICINE | | | | + + + + + ABO & RH TYPE (12/04/2012 4:52 PM PDT) + + + + + + | Component | Value | Ref Range | Performed | Pathologist | | | | | At | Signature | + + + + + + | ABO Group | AB | | [facility] | | | | | | LABORATORY | | | | | | SERVICES, | | | | | | TRANSFUSION | | | | | | MEDICINE | | + + + + + + | Rh Type | Positive | | [facility] | | | | | | LABORATORY | | | | | | SERVICES, | | | | | | TRANSFUSION | | | | | | MEDICINE | | + + + + + + + + | Specimen | + + | Blood - Blood | + + + + + + + | Performing | Address | City/State/Zipcode | Phone Number | | Organization | | | | + + + + + | [facility] | [address] | [place] [address] | | | SERVICES, | [address] | | | | TRANSFUSION MEDICINE | | | | + + + + + APTT (ACT. PART. THROMBO TIME) (12/04/2012 4:52 PM PDT) + + + + + + | Component | Value | Ref Range | Performed | Pathologist | | | | | At | Signature | + + + + + + | APTT | 54.2 (H) | 26.0 - 36.0 | [facility] [...] | + + + + + | [facility] | [address] | [place] [address] | | | SERVICES, CORE | [address] | | | + + + + + PRODUCT - PLATELET PHERESIS LEUKOREDUCED (12/04/2012 4:49 PM PDT) + + + + + + | Component | Value | Ref Range | Performed | Pathologist | | | | | At | Signature | + + + + + + | PRODUCT | PLATELETS,PHERESIS,LEUKO | | [facility] | | | DESCRIPTION | CYTES REDUCED | | DEPARTMENT | | | | | | OF | | | | | | PATHOLOGY | | + + + + + + | PRODUCT | [id number] | | [facility] | | | UNIT # | | | DEPARTMENT | | | | | | OF | | | | | | PATHOLOGY | | + + + + + + | UNIT ABO | A | | [facility] | | | | | | DEPARTMENT | | | | | | OF | | | | | | PATHOLOGY | | + + + + + + | UNIT RH | POS | | [facility] | | | | | | DEPARTMENT | | | | | | OF | | | | | | PATHOLOGY | | + + + + + + | STATUS OF | Returned to Blood Bank | | [facility] | | | UNIT | | | DEPARTMENT | | | | | | OF | | | | | | PATHOLOGY | | + + + + + + | BLOOD | [id number] | | [facility] | | | PRODUCT | | | DEPARTMENT | | | CODE | | | OF | | | | | | PATHOLOGY | | + + + + + + + + | Specimen | + + | | + + + + + + + | Performing | Address | City/State/Zipcode | Phone Number | | Organization | | | | + + + + + | [facility] | [address] | [place] [address] | | | PATHOLOGY | [address] | | | + + + + + PRODUCT- RED CELLS LEUKOREDUCED (12/04/2012 4:49 PM PDT) + + + + + + | Component | Value | Ref Range | Performed | Pathologist | | | | | At | Signature | + + + + + + | PRODUCT | -1 RED BLOOD | | [facility] | | | DESCRIPTION | CELLS,ADENINE-SALINE | | DEPARTMENT | | | | ADDED,LEUKOCYTES REDUCED | | OF | | | | | | PATHOLOGY | | + + + + + + | PRODUCT | [id number] | | [facility] | | | UNIT # | | | DEPARTMENT | | | | | | OF | | | | | | PATHOLOGY | | + + + + + + | UNIT ABO | B | | [facility] | | | | | | DEPARTMENT | | | | | | OF | | | | | | PATHOLOGY | | + + + + + + | UNIT RH | NEG | | [facility] | | | | | | DEPARTMENT | | | | | | OF | | | | | | PATHOLOGY | | + + + + + + | STATUS OF | Returned to Blood Bank | | [facility] | | | UNIT | | | DEPARTMENT | | | | | | OF | | | | | | PATHOLOGY | | + + + + + + | BLOOD | [id number] | | [facility] | | | PRODUCT | | | DEPARTMENT | | | CODE | | | OF | | | | | | PATHOLOGY | | + + + + + + + + | Specimen | + + | | + + + + + + + | Performing | Address | City/State/Zipcode | Phone Number | | Organization | | | | + + + + + | [facility] | [address] | [place] [address] | | | PATHOLOGY | [address] | | | + + + + + PRODUCT- RED CELLS LEUKOREDUCED (12/04/2012 4:49 PM PDT) + + + + + + | Component | Value | Ref Range | Performed | Pathologist | | | | | At | Signature | + + + + + + | PRODUCT | -1 RED BLOOD | | [facility] | | | DESCRIPTION | CELLS,ADENINE-SALINE | | DEPARTMENT | | | | ADDED,LEUKOCYTES REDUCED | | OF | | | | | | PATHOLOGY | | + + + + + + | PRODUCT | [id number] | | [facility] | | | UNIT # | | | DEPARTMENT | | | | | | OF | | | | | | PATHOLOGY | | + + + + + + | UNIT ABO | B | | [facility] | | | | | | DEPARTMENT | | | | | | OF | | | | | | PATHOLOGY | | + + + + + + | UNIT RH | POS | | [facility] | | | | | | DEPARTMENT | | | | | | OF | | | | | | PATHOLOGY | | + + + + + + | STATUS OF | Returned to Blood Bank | | [facility] | | | UNIT | | | DEPARTMENT | | | | | | OF | | | | | | PATHOLOGY | | + + + + + + | BLOOD | [id number] | | [facility] | | | PRODUCT | | | DEPARTMENT | | | CODE | | | OF | | | | | | PATHOLOGY | | + + + + + + + + | Specimen | + + | | + + + + + + + | Performing | Address | City/State/Zipcode | Phone Number | | Organization | | | | + + + + + | [facility] | [address] | [place] [address] | | | PATHOLOGY | [address] | | | + + + + + PRODUCT- RED CELLS LEUKOREDUCED (12/04/2012 4:49 PM PDT) + + + + + + | Component | Value | Ref Range | Performed | Pathologist | | | | | At | Signature | + + + + + + | PRODUCT | -1 RED BLOOD | | [facility] | | | DESCRIPTION | CELLS,ADENINE-SALINE | | DEPARTMENT | | | | ADDED,LEUKOCYTES REDUCED | | OF | | | | | | PATHOLOGY | | + + + + + + | PRODUCT | [id number] | | [facility] | | | UNIT # | | | DEPARTMENT | | | | | | OF | | | | | | PATHOLOGY | | + + + + + + | UNIT ABO | AB | | [facility] | | | | | | DEPARTMENT | | | | | | OF | | | | | | PATHOLOGY | | + + + + + + | UNIT RH | NEG | | [facility] | | | | | | DEPARTMENT | | | | | | OF | | | | | | PATHOLOGY | | + + + + + + | STATUS OF | Returned to Blood Bank | | [facility] | | | UNIT | | | DEPARTMENT | | | | | | OF | | | | | | PATHOLOGY | | + + + + + + | BLOOD | [id number] | | [facility] | | | PRODUCT | | | DEPARTMENT | | | CODE | | | OF | | | | | | PATHOLOGY | | + + + + + + + + | Specimen | + + | | + + + + + + + | Performing | Address | City/State/Zipcode | Phone Number | | Organization | | | | + + + + + | [facility] DEPARTMENT [facility] | [address] | [place] [address] | | | PATHOLOGY | [address] | | | + + + + + PRODUCT- RED CELLS LEUKOREDUCED (12/04/2012 4:49 PM PDT) + + + + + + | Component | Value | Ref Range | Performed | Pathologist | | | | | At | Signature | + + + + + + | PRODUCT | -1 RED BLOOD | | [facility] | | | DESCRIPTION | CELLS,ADENINE-SALINE | | DEPARTMENT | | | | ADDED,LEUKOCYTES REDUCED | | OF | | | | | | PATHOLOGY | | + + + + + + | PRODUCT | [id number] | | [facility] | | | UNIT # | | | DEPARTMENT | | | | | | OF | | | | | | PATHOLOGY | | + + + + + + | UNIT ABO | AB | | [facility] | | | | | | DEPARTMENT | | | | | | OF | | | | | | PATHOLOGY | | + + + + + + | UNIT RH | NEG | | [facility] | | | | | | DEPARTMENT | | | | | | OF | | | | | | PATHOLOGY | | + + + + + + | STATUS OF | Presumed Transfused | | [facility] | | | UNIT | | | DEPARTMENT | | | | | | OF | | | | | | PATHOLOGY | | + + + + + + | BLOOD | [id number] | | [facility] | | | PRODUCT | | | DEPARTMENT | | | CODE | | | OF | | | | | | PATHOLOGY | | + + + + + + + + | Specimen | + + | | + + + + + + + | Performing | Address | City/State/Zipcode | Phone Number | | Organization | | | | + + + + + | [facility] DEPARTMENT OF | [address] | [place], [place] [address] | | | PATHOLOGY | [address] | | | + + + + + PRODUCT- RED CELLS LEUKOREDUCED (12/04/2012 4:49 PM PDT) + + + + + + | Component | Value | Ref Range | Performed | Pathologist | | | | | At | Signature | + + + + + + | PRODUCT | -1 RED BLOOD | | [facility] | | | DESCRIPTION | CELLS,ADENINE-SALINE | | DEPARTMENT | | | | ADDED,LEUKOCYTES REDUCED | | OF | | | | | | PATHOLOGY | | + + + + + + | PRODUCT | [id number] | | [facility] | | | UNIT # | | | DEPARTMENT | | | | | | OF | | | | | | PATHOLOGY | | + + + + + + | UNIT ABO | AB | | [facility] | | | | | | DEPARTMENT | | | | | | OF | | | | | | PATHOLOGY | | + + + + + + | UNIT RH | POS | | [facility] | | | | | | DEPARTMENT | | | | | | OF | | | | | | PATHOLOGY | | + + + + + + | STATUS OF | Returned to Blood Bank | | [facility] | | | UNIT | | | DEPARTMENT | | | | | | OF | | | | | | PATHOLOGY | | + + + + + + | BLOOD | [id number] | | [facility] | | | PRODUCT | | | DEPARTMENT | | | CODE | | | OF | | | | | | PATHOLOGY | | + + + + + + + + | Specimen | + + | | + + + + + + + | Performing | Address | City/State/Zipcode | Phone Number | | Organization | | | | + + + + + | [facility] | [address] | [place] [address] | | | PATHOLOGY | [address] | | | + + + + + PRODUCT - PLATELET PHERESIS LEUKOREDUCED (12/04/2012 4:49 PM PDT) + + + + + + | Component | Value | Ref Range | Performed | Pathologist | | | | | At | Signature | + + + + + + | PRODUCT | PLATELETS,PHERESIS,LEUKO | | [facility] | | | DESCRIPTION | CYTES REDUCED,IRRADIATED | | DEPARTMENT | | | | | | OF | | | | | | PATHOLOGY | | + + + + + + | PRODUCT | [id number] | | [facility] | | | UNIT # | | | DEPARTMENT | | | | | | OF | | | | | | PATHOLOGY | | + + + + + + | UNIT ABO | B | | [facility] | | | | | | DEPARTMENT | | | | | | OF | | | | | | PATHOLOGY | | + + + + + + | UNIT RH | POS | | [facility] | | | | | | DEPARTMENT | | | | | | OF | | | | | | PATHOLOGY | | + + + + + + | STATUS OF | Returned to Blood Bank | | [facility] | | | UNIT | | | DEPARTMENT | | | | | | OF | | | | | | PATHOLOGY | | + + + + + + | BLOOD | [id number] | | [facility] | | | PRODUCT | | | DEPARTMENT | | | CODE | | | OF | | | | | | PATHOLOGY | | + + + + + + + + | Specimen | + + | | + + + + + + + | Performing | Address | City/State/Zipcode | Phone Number | | Organization | | | | + + + + + | [facility] | [address] | [place] [address] | | | PATHOLOGY | [address] | | | + + + + + PRODUCT- RED CELLS LEUKOREDUCED (12/04/2012 4:49 PM PDT) + + + + + + | Component | Value | Ref Range | Performed | Pathologist | | | | | At | Signature | + + + + + + | PRODUCT | -1 RED BLOOD | | [facility] | | | DESCRIPTION | CELLS,ADENINE-SALINE | | DEPARTMENT | | | | ADDED,LEUKOCYTES REDUCED | | OF | | | | | | PATHOLOGY | | + + + + + + | PRODUCT | [id number] | | [facility] | | | UNIT # | | | DEPARTMENT | | | | | | OF | | | | | | PATHOLOGY | | + + + + + + | UNIT ABO | AB | | [facility] | | | | | | DEPARTMENT | | | | | | OF | | | | | | PATHOLOGY | | + + + + + + | UNIT RH | POS | | [facility] | | | | | | DEPARTMENT | | | | | | OF | | | | | | PATHOLOGY | | + + + + + + | STATUS OF | Returned to Blood Bank | | [facility] | | | UNIT | | | DEPARTMENT | | | | | | OF | | | | | | PATHOLOGY | | + + + + + + | BLOOD | [id number] | | [facility] | | | PRODUCT | | | DEPARTMENT | | | CODE | | | OF | | | | | | PATHOLOGY | | + + + + + + + + | Specimen | + + | | + + + + + + + | Performing | Address | City/State/Zipcode | Phone Number | | Organization | | | | + + + + + | [facility] | [address] | [place] [address] | | | PATHOLOGY | [address] | | | + + + + + PRODUCT - FRESH FROZEN PLASMA (12/04/2012 4:40 PM PDT) + + + + + + | Component | Value | Ref Range | Performed | Pathologist | | | | | At | Signature | + + + + + + | PRODUCT | Thawed Plasma, Five day | | [facility] | | | DESCRIPTION | | | DEPARTMENT | | | | | | OF | | | | | | PATHOLOGY | | + + + + + + | PRODUCT | [id number] | | [facility] | | | UNIT # | | | DEPARTMENT | | | | | | OF | | | | | | PATHOLOGY | | + + + + + + | UNIT ABO | AB | | [facility] | | | | | | DEPARTMENT | | | | | | OF | | | | | | PATHOLOGY | | + + + + + + | UNIT RH | POS | | [facility] | | | | | | DEPARTMENT | | | | | | OF | | | | | | PATHOLOGY | | + + + + + + | STATUS OF | Presumed Transfused | | [facility] | | | UNIT | | | DEPARTMENT | | | | | | OF | | | | | | PATHOLOGY | | + + + + + + | BLOOD | [id number] | | [facility] | | | PRODUCT | | | DEPARTMENT | | | CODE | | | OF | | | | | | PATHOLOGY | | + + + + + + + + | Specimen | + + | | + + + + + + + | Performing | Address | City/State/Zipcode | Phone Number | | Organization | | | | + + + + + | [facility] DE[facility]MENT [facility] | [address] | [place] [address] | | | PATHOLOGY | [address] | | | + + + + + PRODUCT - FRESH FROZEN PLASMA (12/04/2012 4:40 PM PDT) + + + + + + | Component | Value | Ref Range | Performed | Pathologist | | | | | At | Signature | + + + + + + | PRODUCT | THAWED PLASMA, 5 DAY | | [facility] | | | DESCRIPTION | OUTDATE | | DEPARTMENT | | | | | | OF | | | | | | PATHOLOGY | | + + + + + + | PRODUCT | [id number] | | [facility] | | | UNIT # | | | DEPARTMENT | | | | | | OF | | | | | | PATHOLOGY | | + + + + + + | UNIT ABO | AB | | [facility] | | | | | | DEPARTMENT | | | | | | OF | | | | | | PATHOLOGY | | + + + + + + | UNIT RH | POS | | [facility] | | | | | | DEPARTMENT | | | | | | OF | | | | | | PATHOLOGY | | + + + + + + | STATUS OF | Returned to Blood Bank | | [facility] | | | UNIT | | | DEPARTMENT | | | | | | OF | | | | | | PATHOLOGY | | + + + + + + | BLOOD | [id number] | | [facility] | | | PRODUCT | | | DEPARTMENT | | | CODE | | | OF | | | | | | PATHOLOGY | | + + + + + + + + | Specimen | + + | | + + + + + + + | Performing | Address | City/State/Zipcode | Phone Number | | Organization | | | | + + + + + | [facility] | [address] | [place] [address] | | | PATHOLOGY | [address] | | | + + + + + PRODUCT - FRESH FROZEN PLASMA (12/04/2012 4:40 PM PDT) + + + + + + | Component | Value | Ref Range | Performed | Pathologist | | | | | At | Signature | + + + + + + | PRODUCT | THAWED PLASMA, 5 DAY | | [facility] | | | DESCRIPTION | OUTDATE | | DEPARTMENT | | | | | | OF | | | | | | PATHOLOGY | | + + + + + + | PRODUCT | [id number] | | [facility] | | | UNIT # | | | DEPARTMENT | | | | | | OF | | | | | | PATHOLOGY | | + + + + + + | UNIT ABO | AB | | [facility] | | | | | | DEPARTMENT | | | | | | OF | | | | | | PATHOLOGY | | + + + + + + | UNIT RH | POS | | [facility] | | | | | | DEPARTMENT | | | | | | OF | | | | | | PATHOLOGY | | + + + + + + | STATUS OF | Returned to Blood Bank | | [facility] | | | UNIT | | | DEPARTMENT | | | | | | OF | | | | | | PATHOLOGY | | + + + + + + | BLOOD | [id number] | | [facility] | | | PRODUCT | | | DEPARTMENT | | | CODE | | | OF | | | | | | PATHOLOGY | | + + + + + + + + | Specimen | + + | | + + + + + + + | Performing | Address | City/State/Zipcode | Phone Number | | Organization | | | | + + + + + | [facility] DE[facility] | [address] | [place] [address] | | | PATHOLOGY | [address] | | | + + + + + PRODUCT - FRESH FROZEN PLASMA (12/04/2012 4:40 PM PDT) + + + + + + | Component | Value | Ref Range | Performed | Pathologist | | | | | At | Signature | + + + + + + | PRODUCT | THAWED PLASMA, 5 DAY | | [facility] | | | DESCRIPTION | OUTDATE | | DEPARTMENT | | | | | | OF | | | | | | PATHOLOGY | | + + + + + + | PRODUCT | [id number] | | [facility] | | | UNIT # | | | DEPARTMENT | | | | | | OF | | | | | | PATHOLOGY | | + + + + + + | UNIT ABO | AB | | [facility] | | | | | | DEPARTMENT | | | | | | OF | | | | | | PATHOLOGY | | + + + + + + | UNIT RH | POS | | [facility] | | | | | | DEPARTMENT | | | | | | OF | | | | | | PATHOLOGY | | + + + + + + | STATUS OF | Presumed Transfused | | [facility] | | | UNIT | | | DEPARTMENT | | | | | | OF | | | | | | PATHOLOGY | | + + + + + + | BLOOD | [id number] | | [facility] | | | PRODUCT | | | DEPARTMENT | | | CODE | | | OF | | | | | | PATHOLOGY | | + + + + + + + + | Specimen | + + | | + + + + + + + | Performing | Address | City/State/Zipcode | Phone Number | | Organization | | | | + + + + + | [facility]PART[facility] | [address] | [place] [address] | | | PATHOLOGY | [address] | | | + + + + + PRODUCT- RED CELLS LEUKOREDUCED (12/04/2012 4:39 PM PDT) + + + + + + | Component | Value | Ref Range | Performed | Pathologist | | | | | At | Signature | + + + + + + | PRODUCT | -1 RED BLOOD | | [facility] | | | DESCRIPTION | CELLS,ADENINE-SALINE | | DEPARTMENT | | | | ADDED,LEUKOCYTES REDUCED | | OF | | | | | | PATHOLOGY | | + + + + + + | PRODUCT | [id number] | | [facility] | | | UNIT # | | | DEPARTMENT | | | | | | OF | | | | | | PATHOLOGY | | + + + + + + | UNIT ABO | AB | | [facility] | | | | | | DEPARTMENT | | | | | | OF | | | | | | PATHOLOGY | | + + + + + + | UNIT RH | POS | | [facility] | | | | | | DEPARTMENT | | | | | | OF | | | | | | PATHOLOGY | | + + + + + + | STATUS OF | Returned to Blood Bank | | [facility] | | | UNIT | | | DEPARTMENT | | | | | | OF | | | | | | PATHOLOGY | | + + + + + + | BLOOD | [id number] | | [facility] | | | PRODUCT | | | DEPARTMENT | | | CODE | | | OF | | | | | | PATHOLOGY | | + + + + + + + + | Specimen | + + | | + + + + + + + | Performing | Address | City/State/Zipcode | Phone Number | | Organization | | | | + + + + + | [facility] | [address] | [place], [place] [address] | | | PATHOLOGY | [address] | | | + + + + + PRODUCT- RED CELLS LEUKOREDUCED (12/04/2012 4:39 PM PDT) + + + + + + | Component | Value | Ref Range | Performed | Pathologist | | | | | At | Signature | + + + + + + | PRODUCT | -1 RED BLOOD | | [facility] | | | DESCRIPTION | CELLS,ADENINE-SALINE | | DEPARTMENT | | | | ADDED,LEUKOCYTES REDUCED | | OF | | | | | | PATHOLOGY | | + + + + + + | PRODUCT | [id number] | | [facility] | | | UNIT # | | | DEPARTMENT | | | | | | OF | | | | | | PATHOLOGY | | + + + + + + | UNIT ABO | AB | | [facility] | | | | | | DEPARTMENT | | | | | | OF | | | | | | PATHOLOGY | | + + + + + + | UNIT RH | POS | | [facility] | | | | | | DEPARTMENT | | | | | | OF | | | | | | PATHOLOGY | | + + + + + + | STATUS OF | Returned to Blood Bank | | [facility] | | | UNIT | | | DEPARTMENT | | | | | | OF | | | | | | PATHOLOGY | | + + + + + + | BLOOD | [id number] | | [facility] | | | PRODUCT | | | DEPARTMENT | | | CODE | | | OF | | | | | | PATHOLOGY | | + + + + + + + + | Specimen | + + | | + + + + + + + | Performing | Address | City/State/Zipcode | Phone Number | | Organization | | | | + + + + + | [facility] | [address] | [place] [address] | | | PATHOLOGY | [address] | | | + + + + + HEMOGLOBIN, POC RESP (12/04/2012 4:33 PM PDT) + +---------+ + + + | Component | Value | Ref Range | Performed | Pathologist | | | | | At | Signature | + +---------+ + + + | HEMOGLOBIN, | 8.0 (L) | 13.5 - 17.5 | [facility] | | | POC | | g/dL | RESPIRATORY | | | | | | THERAPY | | + +---------+ + + + + + | Specimen | + + | | + + + + + + + | Performing | Address | City/State/Zipcode | Phone Number | | Organization | | | | + + + + + | [facility] | [address] | [place], [place] | | | THERAPY | [address] | [address] | | + + + + + LACTATE, POC (12/04/2012 4:33 PM PDT) + + + + + + | Component | Value | Ref Range | Performed | Pathologist | | | | | At | Signature | + + + + + + | LACTATE, | 14.1 (H) | 0.5 - 1.6 | [facility] | | | POC ABL | | mmol/L | RESPIRATORY | | | | | | THERAPY | | + + + + + + + + | Specimen | + + | | + + + + + + + | Performing | Address | City/State/Zipcode | Phone Number | | Organization | | | | + + + + + | [facility] | [address] | [place], [place] | | | THERAPY | [address] | [address] | | + + + + + IONIZD CA WB, POC RESP (12/04/2012 4:33 PM PDT) + +-------+ + + + | Component | Value | Ref Range | Performed | Pathologist | | | | | At | Signature | + +-------+ + + + | BERTA | 1.21 | 1.14 - 1.32 | [facility] | | | IONIZED | | mmol/L | RESPIRATORY | | | CA,WHOLE | | | THERAPY | | | BLD,POC | | | | | + +-------+ + + + + + | Specimen | + + | | + + + + + + + | Performing | Address | City/State/Zipcode | Phone Number | | Organization | | | | + + + + + | [facility] | [address] | [place], [place] | | | THERAPY | [address] | [address] | | + + + + + POTASSIUM WB, POC RESP (12/04/2012 4:33 PM PDT) + +-------+ + + + | Component | Value | Ref Range | Performed | Pathologist | | | | | At | Signature | + +-------+ + + + | POTASSIUM,W | 4.4 | 3.4 - 5.0 | [facility] | | | HL BLD, POC | | mmol/L | RESPIRATORY | | | | | | THERAPY | | + +-------+ + + + + + | Specimen | + + | | + + + + + + + | Performing | Address | City/State/Zipcode | Phone Number | | Organization | | | | + + + + + | [facility] | [address] | [place], [place] | | | THERAPY | [address] | [address] | | + + + + + SODIUM WB, POC RESP (12/04/2012 4:33 PM PDT) + +---------+ + + + | Component | Value | Ref Range | Performed | Pathologist | | | | | At | Signature | + +---------+ + + + | SODIUM, WHL | 145 (H) | 134 - 143 | [facility] | | | BLD, POC | | mmol/L | RESPIRATORY | | | | | | THERAPY | | + +---------+ + + + + + | Specimen | + + | | + + + + + + + | Performing | Address | City/State/Zipcode | Phone Number | | Organization | | | | + + + + + | [facility] | [address] | [place], [place] | | | THERAPY | [address] | [address] | | + + + + + BLOOD GAS ART, POC RESP (12/04/2012 4:33 PM PDT) + + + + + + | Component | Value | Ref Range | Performed | Pathologist | | | | | At | Signature | + + + + + + | HCO3 | 16.5 (L) | 21 - 28 mmol/L | [facility] | | | ARTERIAL, | | | RESPIRATORY | | | POC | | | THERAPY | | + + + + + + | PCO2 | 39 | 32 - 43 mmHg | [facility] | | | ARTERIAL, | | | RESPIRATORY | | | POC | | | THERAPY | | + + + + + + | PH | 7.24 (AA) | 7.37 - 7.44 | [facility] | | | ARTERIAL, | | | RESPIRATORY | | | POC | | | THERAPY | | + + + + + + | BASE EXCESS | -11.0 | | [facility] | | | ART, POC | | | RESPIRATORY | | | | | | THERAPY | | + + + + + + | CALC %O2 | 99.7 (H) | 92.0 - 98.0 % | [facility] | | | SAT ART, | | | RESPIRATORY | | | POC | | | THERAPY | | + + + + + + | PO2 | 210 (H) | 72 - 104 mmHg | [facility] | | | ARTERIAL, | | | RESPIRATORY | | | POC | | | THERAPY | | + + + + + + | FIO2 ART, | 100.0 | | [facility] | | | POC | | | RESPIRATORY | | | | | | THERAPY | | + + + + + + | PAT TEMP | 36.6 | | [facility] | | | ART, POC | | | RESPIRATORY | | | | | | THERAPY | | + + + + + + + + | Specimen | + + | | + + + + + + + | Performing | Address | City/State/Zipcode | Phone Number | | Organization | | | | + + + + + | [facility] | [address] | [place], [place] | | | THERAPY | [address] | [address] | | + + + + + COMPLETE METABOLIC SET (NA,K,CL,CO2,BUN,CREAT,GLUC,CA,AST,ALT,BILI TOTAL,ALK PHOS,ALB,PROT TOTAL) (12/04/2012 4:31 PM PDT) + + + + + + | Component | Value | Ref Range | Performed | Pathologist | | | | | At | Signature | + + + + + + | GLUCOSE, | 106 (H) | 60 - 99 mg/dL | [facility] | | | PLASMA | | | LABORATORY | | | (LAB) | | | SERVICES, | | | | | | CORE | | + + + + + + | BUN, PLASMA | 58 (H) | 6 - 20 mg/dL | [facility] | | | (LAB) | | | LABORATORY | | | | | | SERVICES, | | | | | | CORE | | + + + + + + | CREATININE | 3.46 (H) | 0.70 - 1.30 | [facility] | | | PLASMA | | mg/dL | LABORATORY | | | (LAB) | | | SERVICES, | | | | | | CORE | | + + + + + + | SODIUM, | 144 | 136 - 145 | [facility] | | | PLASMA | | mmol/L | LABORATORY | | | (LAB) | | | SERVICES, | | | | | | CORE | | + + + + + + | POTASSIUM, | 4.6 | 3.4 - 5.0 | [facility] | [...] + + + | TOTAL CO2, | 15 (L) | 21 - 32 mmol/L | [facility] | | | PLASMA | | | LABORATORY | | | (LAB) | | | SERVICES, | | | | | | CORE | | + + + + + + | CALCIUM, | 8.8 | 8.6 - 10.2 | [facility] | [...] + + + + | TOTAL | 5.4 (L) | 6.1 - 7.9 g/dL | [facility] | | | PROTEIN, | | | LABORATORY | | | PLASMA | | | SERVICES, | | | (LAB) | | | CORE | | + + + + + + | ALBUMIN, | 2.3 (L) | 3.5 - 4.7 g/dL | [facility] | | | PLASMA | | | LABORATORY | | | (LAB) | | | SERVICES, | | | | | | CORE | | + + + + + + | ALK PHOS | 112 | 56 - 119 U/L | [facility] | | | | | | LABORATORY | | | | | | SERVICES, | | | | | | CORE | | + + + + + + | AST(SGOT) | 4,458 (H) | 15 - 41 U/L | [facility] | | | | | | LABORATORY | | | | | | SERVICES, | | | | | | CORE | | + + + + + + | ALT (SGPT) | 2,335 (H) | 12 - 60 U/L | [facility] | | | | | | LABORATORY | | | | | | SERVICES, | | | | | | CORE | | + + + + + + | ANION | 30 (H) | 4 - 11 mmol/L | [...] + + + + + + | BILI T CMNT | No Hemo | | [facility] | | | | | | LABORATORY | | | | | | SERVICES, | | | | | | CORE | | + + + + + + | AST CMNT | No Hemo | | [facility] | | | | | | LABORATORY | | | | | | SERVICES, | | | | | | CORE | | + + + + + + | ANION GAP | 26 (H) | 4 - 11 mmol/L | [...] | + + + + + | [facility] | [address] | [place] [address] | | | SERVICES, CORE | [address] | | | + + + + + CBC (12/04/2012 4:31 PM PDT) + + + + + + | Component | Value | Ref Range | Performed | Pathologist | | | | | At | Signature | + + + + + + | WBC | 20.8 (H)Comment: Final | 4.4 - 11.0 K/cu | [facility] | | | ADJUSTED | WBC report. WBC count | mm | LABORATORY | | | | adjusted for NRBCs. | | SERVICES, | | | | | | CORE | | + + + + + + | RED CELL | 2.56 (L) | 4.50 - 5.90 | [facility] | | | COUNT | | M/cu mm | LABORATORY | | | | | | SERVICES, | | | | | | CORE | | + + + + + + | HEMOGLOBIN | 8.0 (L) | 13.5 - 17.5 | [facility] | | | | | g/dL | LABORATORY | | | | | | SERVICES, | | | | | | CORE | | + + + + + + | HEMATOCRIT | 23.9 (L) | 41.0 - 53.0 % | [facility] | | | | | | LABORATORY | | | | | | SERVICES, | | | | | | CORE | | + + + + + + | MCV | 93.2 | 80.0 - 96.0 fL | [facility] | | | | | | LABORATORY | | | | | | SERVICES, | | | | | | CORE | | + + + + + + | MCHC | 33.3 (L) | 33.4 - 35.5 | [facility] | | | | | g/dL | LABORATORY | | | | | | SERVICES, | | | | | | CORE | | + + + + + + | RDW | 15.1 (H) | 11.5 - 15.0 % | [facility] | | | | | | LABORATORY | | | | | | SERVICES, | | | | | | CORE | | + + + + + + | PLATELET | 165Comment: Final | 150 - 400 K/cu | [facility] | | | COUNT | platelet report. | mm | LABORATORY | | | [...] | + + + + + | [facility] | [address] | [place] [address] | | | SERVICES, CORE | [address] | | | + + + + + RENAL FUNCTION SET (NA,K,CL,CO2,BUN,CREAT,GLUC,CA,PHOS,ALB ) (12/04/2012 4:31 PM PDT) + + + + + + | Component | Value | Ref Range | Performed | Pathologist | | | | | At | Signature | + + + + + + | GLUCOSE, | 106 (H) | 60 - 99 mg/dL | [facility] | | | PLASMA | | | LABORATORY | | | (LAB) | | | SERVICES, | | | | | | CORE | | + + + + + + | BUN, PLASMA | 58 (H) | 6 - 20 mg/dL | [facility] | | | (LAB) | | | LABORATORY | | | | | | SERVICES, | | | | | | CORE | | + + + + + + | CREATININE | 3.46 (H) | 0.70 - 1.30 | [facility] | | | PLASMA | | mg/dL | LABORATORY | | | (LAB) | | | SERVICES, | | | | | | CORE | | + + + + + + | SODIUM, | 144 | 136 - 145 | [facility] | | | PLASMA | | mmol/L | LABORATORY | | | (LAB) | | | SERVICES, | | | | | | CORE | | + + + + + + | POTASSIUM, | 4.6 | 3.4 - 5.0 | [facility] | [...] + + + | TOTAL CO2, | 15 (L) | 21 - 32 mmol/L | [facility] | | | PLASMA | | | LABORATORY | | | (LAB) | | | SERVICES, | | | | | | CORE | | + + + + + + | CALCIUM, | 8.8 | 8.6 - 10.2 | [facility] | | | PLASMA | | mg/dL | LABORATORY | | | (LAB) | | | SERVICES, | | | | | | CORE | | + + + + + + | ALBUMIN, | 2.3 (L) | 3.5 - 4.7 g/dL | [facility] | | | PLASMA | | | LABORATORY | | | (LAB) | | | SERVICES, | | | | | | CORE | | + + + + + + | PHOSPHORUS, | 9.4 (H) | 2.4 - 4.7 mg/dL | [facility] | | | PLASMA [...] + + + | ANION GAP | 26 (H) | 4 - 11 mmol/L | [facility] | | | | | | LABORATORY | | | | | | SERVICES, | | | | | | CORE | | + + + + + + | ANION | 30 (H) | 4 - 11 mmol/L | [...] | + + + + + | [facility] | [address] | [place] [address] | | | SERVICES, CORE | [address] | | | + + + + + TROPONIN I, PLASMA (12/04/2012 4:31 PM PDT) + + + + + + | Component | Value | Ref Range | Performed | Pathologist | | | | | At | Signature | + + + + + + | TROPONIN I | 4.60 (H) | <0.80 ng/mL | [facility] | | [...] + | [facility] | [address] | [place] [address] | | | SERVICES, CORE | [address] | | | + + + + + HEMOGLOBIN, POC RESP (12/04/2012 4:06 PM PDT) + +---------+ + + + | Component | Value | Ref Range | Performed | Pathologist | | | | | At | Signature | + +---------+ + + + | HEMOGLOBIN, | 8.3 (L) | 13.5 - 17.5 | [facility] | | | POC | | g/dL | RESPIRATORY | | | | | | THERAPY | | + +---------+ + + + + + | Specimen | + + | | + + + + + + + | Performing | Address | City/State/Zipcode | Phone Number | | Organization | | | | + + + + + | [facility] | [address] | [place], [place] | | | THERAPY | [address] | [phone] | | + + + + + LACTATE, POC (12/04/2012 4:06 PM PDT) + + + + + + | Component | Value | Ref Range | Performed | Pathologist | | | | | At | Signature | + + + + + + | LACTATE, | 14.3 (H) | 0.5 - 1.6 | [facility] | | | POC ABL | | mmol/L | RESPIRATORY | | | | | | THERAPY | | + + + + + + + + | Specimen | + + | | + + + + + + + | Performing | Address | City/State/Zipcode | Phone Number | | Organization | | | | + + + + + | [facility] | [address] | [place], [place] | | | THERAPY | [address] | [address] | | + + + + + IONKAZD CA WB, POC RESP (12/04/2012 4:06 PM PDT) + +-------+ + + + | Component | Value | Ref Range | Performed | Pathologist | | | | | At | Signature | + +-------+ + + + | BERTA | 1.19 | 1.14 - 1.32 | [facility] | | | IONIZED | | mmol/L | RESPIRATORY | | | CA,WHOLE | | | THERAPY | | | BLD,POC | | | | | + +-------+ + + + + + | Specimen | + + | | + + + + + + + | Performing | Address | City/State/Zipcode | Phone Number | | Organization | | | | + + + + + | [facility] | [address] | [place], [place] | | | THERAPY | [address] | [address] | | + + + + + POTASSIUM WB, POC RESP (12/04/2012 4:06 PM PDT) + +-------+ + + + | Component | Value | Ref Range | Performed | Pathologist | | | | | At | Signature | + +-------+ + + + | POTASSIUM,W | 4.5 | 3.4 - 5.0 | [facility] | | | HL BLD, POC | | mmol/L | RESPIRATORY | | | | | | THERAPY | | + +-------+ + + + + + | Specimen | + + | | + + + + + + + | Performing | Address | City/State/Zipcode | Phone Number | | Organization | | | | + + + + + | [facility] | [address] | [place], [place] | | | THERAPY | [address] | [address] | | + + + + + SODIUM WB, POC RESP (12/04/2012 4:06 PM PDT) + +---------+ + + + | Component | Value | Ref Range | Performed | Pathologist | | | | | At | Signature | + +---------+ + + + | SODIUM, WHL | 146 (H) | 134 - 143 | [facility] | | | BLD, POC | | mmol/L | RESPIRATORY | | | | | | THERAPY | | + +---------+ + + + + + | Specimen | + + | | + + + + + + + | Performing | Address | City/State/Zipcode | Phone Number | | Organization | | | | + + + + + | [facility] | [address] | [place], [place] | | | THERAPY | [address] | [address] | | + + + + + BLOOD GAS ART, POC RESP (12/04/2012 4:06 PM PDT) + + + + + + | Component | Value | Ref Range | Performed | Pathologist | | | | | At | Signature | + + + + + + | HCO3 | 16.3 (L) | 21 - 28 mmol/L | [facility] | | | ARTERIAL, | | | RESPIRATORY | | | POC | | | THERAPY | | + + + + + + | PCO2 | 44 (H) | 32 - 43 mmHg | [facility] | | | ARTERIAL, | | | RESPIRATORY | | | POC | | | THERAPY | | + + + + + + | PH | 7.18 (AA) | 7.37 - 7.44 | [facility] | | | ARTERIAL, | | | RESPIRATORY | | | POC | | | THERAPY | | + + + + + + | BASE EXCESS | -12.1 | | [facility] | | | ART, POC | | | RESPIRATORY | | | | | | THERAPY | | + + + + + + | CALC %O2 | 99.6 (H) | 92.0 - 98.0 % | [facility] | | | SAT ART, | | | RESPIRATORY | | | POC | | | THERAPY | | + + + + + + | PO2 | 238 (H) | 72 - 104 mmHg | [facility] | | | ARTERIAL, | | | RESPIRATORY | | | POC | | | THERAPY | | + + + + + + | FIO2 ART, | 100.0 | | [facility] | | | POC | | | RESPIRATORY | | | | | | THERAPY | | + + + + + + | PAT TEMP | 36.6 | | [facility] | | | ART, POC | | | RESPIRATORY | | | | | | THERAPY | | + + + + + + + + | Specimen | + + | | + + + + + + + | Performing | Address | City/State/Zipcode | Phone Number | | Organization | | | | + + + + + | [facility] | [address] | [place], [place] | | | THERAPY | [address] | [address] | | + + + + + CAPILLARY BLOOD GLUCOSE (NO CHG), POC (12/04/2012 3:42 PM PDT) + +---------+ + + + | Component | Value | Ref Range | Performed | Pathologist | | | | | At | Signature | + +---------+ + + + | BLOOD | 122 (H) | 60 - 99 mg/dL | [...] | + + + + + | [facility] | [address] [address] | [place], [place] | | | [facility] | [address] | [address] | | | TESTS | | | | + + + + + CBC (12/04/2012 3:39 PM PDT) + + + + + + | Component | Value | Ref Range | Performed | Pathologist | | | | | At | Signature | + + + + + + | WBC | 16.5 (H)Comment: Final | 4.4 - 11.0 K/cu | [facility] | | | ADJUSTED | WBC report. WBC count | mm | LABORATORY | | | | adjusted for NRBCs. | | SERVICES, | | | | | | CORE | | + + + + + + | RED CELL | 2.73 (L) | 4.50 - 5.90 | [facility] | | | COUNT | | M/cu mm | LABORATORY | | | | | | SERVICES, | | | | | | CORE | | + + + + + + | HEMOGLOBIN | 8.6 (L) | 13.5 - 17.5 | [facility] | | | | | g/dL | LABORATORY | | | | | | SERVICES, | | | | | | CORE | | + + + + + + | HEMATOCRIT | 25.7 (L) | 41.0 - 53.0 % | [facility] | | | | | | LABORATORY | | | | | | SERVICES, | | | | | | CORE | | + + + + + + | MCV | 94.2 | 80.0 - 96.0 fL | [facility] | | | | | | LABORATORY | | | | | | SERVICES, | | | | | | CORE | | + + + + + + | MCHC | 33.2 (L) | 33.4 - 35.5 | [facility] | | | | | g/dL | LABORATORY | | | | | | SERVICES, | | | | | | CORE | | + + + + + + | RDW | 15.7 (H) | 11.5 - 15.0 % | [facility] | | | | | | LABORATORY | | | | | | SERVICES, | | | | | | CORE | | + + + + + + | PLATELET | 168 | 150 - 400 K/cu | [facility] [...] | + + + + + | [facility] | [address] | [place] [address] | | | SERVICES, CORE | [address] | | | + + + + + CO-OXIMETER PANEL, BLOOD (12/04/2012 3:37 PM PDT) + + + + + + | Component | Value | Ref Range | Performed | Pathologist | | | | | At | Signature | + + + + + + | TOTAL | 9.1 (L) | 13.5 - 17.5 | [facility] | | | HEMOGLOBIN | | g/dL | LABORATORY | | | | | | SERVICES, | | | | | | CORE | | + + + + + + | OXYHEMOGLOB | 53.7 (L) | 94.0 - 100.0 % | [facility] | | | IN | | | LABORATORY | | | | | | SERVICES, | | | | | | CORE | | + + + + + + | CARBOXYHEMO | <1.0 | <1.5 % | [facility] | | | GLOBIN | | | LABORATORY | | | | | | SERVICES, | | | | | | CORE | | + + + + + + | METHEMOGLOB | 1.1 | % | [facility] | | | IN | | | LABORATORY | | | | | | SERVICES, | | | | | | CORE | | + + + + + + | OXYGEN SAT, | 54.4 (L) | 92.0 - 98.0 % | [facility] | | | BERTA | | | LABORATORY | | | | | | SERVICES, | | | | | | CORE | | + + + + + + | DEOXYHEMOGL | 45.1 | % | [facility] | | | OBIN | | | LABORATORY | | | | | | SERVICES, | | | | | | CORE | | + + + + + + + + | Specimen | + + | Blood - Blood | + + + + + | Narrative | Performed At | + + + | Carboxyhemoglobin ranges Nonsmoker: | [facility] | | <1.5% Smokers (1-2 packs/day): 4-5% Smokers (>2 packs/day): | LABORATORY | | 8-9% Methemoglobin Reference Range: 0-18 years: Not | SERVICES, CORE | | Available >18 years: <2% of total hemoglobin | | + + + + + + + + | Performing | Address | City/State/Zipcode | Phone Number | | Organization | | | | + + + + + | [facility] | [address] | [place] [address] | | | SERVICES, CORE | [address] | | | + + + + + LACTIC ACID (12/04/2012 3:37 PM PDT) + +-------+ + + + | Component | Value | Ref Range | Performed | Pathologist | | | | | At | Signature | + +-------+ + + + | LACTATE | 12.9 | mmol/L | [facility] | | | | | | LABORATORY | | | | | | SERVICES, | | | | | | CORE | | + +-------+ + + + + + | Specimen | + + | Blood - Blood | + + + + + | Narrative | Performed At | + + + | Reference Range: Venous blood: 0.5 - 2.2 mmol/L | [facility] | | Arterial blood: 0.5 - 1.6 mmol/L | LABORATORY | | | SERVICES, CORE | + + + + + + + + | Performing | Address | City/State/Zipcode | Phone Number | | Organization | | | | + + + + + | [facility] | [address] | [place] [address] | | | SERVICES, CORE | [address] | | | + + + + + MAGNESIUM, PLASMA (12/04/2012 3:37 PM PDT) + +---------+ + + + | Component | Value | Ref Range | Performed | Pathologist | | | | | At | Signature | + +---------+ + + + | MAGNESIUM,P | 3.2 (H) | 1.8 - 2.5 mg/dL | [facility] | | | LASMA | | | [...] + | [facility] | [address] | [place] [address] | | | SERVICES, CORE | [address] | | | + + + + + RENAL FUNCTION SET (NA,K,CL,CO2,BUN,CREAT,GLUC,CA,PHOS,ALB ) (12/04/2012 3:37 PM PDT) + + + + + + | Component | Value | Ref Range | Performed | Pathologist | | | | | At | Signature | + + + + + + | GLUCOSE, | 97 | 60 - 99 mg/dL | [facility] | | | PLASMA | | | LABORATORY | | | (LAB) | | | SERVICES, | | | | | | CORE | | + + + + + + | BUN, PLASMA | 54 (H) | 6 - 20 mg/dL | [facility] | | | (LAB) | | | LABORATORY | | | | | | SERVICES, | | | | | | CORE | | + + + + + + | CREATININE | 3.47 (H) | 0.70 - 1.30 | [facility] | | | PLASMA | | mg/dL | LABORATORY | | | (LAB) | | | SERVICES, | | | | | | CORE | | + + + + + + | SODIUM, | 141 | 136 - 145 | [facility] | | | PLASMA | | mmol/L | LABORATORY | | | (LAB) | | | SERVICES, | | | | | | CORE | | + + + + + + | POTASSIUM, | 5.9 (H) | 3.4 - 5.0 | [facility] | [...] + + + | TOTAL CO2, | 15 (L) | 21 - 32 mmol/L | [facility] | | | PLASMA | | | LABORATORY | | | (LAB) | | | SERVICES, | | | | | | CORE | | + + + + + + | CALCIUM, | 8.4 (L) | 8.6 - 10.2 | [facility] | | | PLASMA | | mg/dL | LABORATORY | | | (LAB) | | | SERVICES, | | | | | | CORE | | + + + + + + | ALBUMIN, | 2.6 (L) | 3.5 - 4.7 g/dL | [facility] | | | PLASMA | | | LABORATORY | | | (LAB) | | | SERVICES, | | | | | | CORE | | + + + + + + | PHOSPHORUS, | 8.7 (H) | 2.4 - 4.7 mg/dL | [facility] | | | PLASMA [...] + + + | ANION GAP | 22 (H) | 4 - 11 mmol/L | [facility] | | | | | | LABORATORY | | | | | | SERVICES, | | | | | | CORE | | + + + + + + | ANION | 25 (H) | 4 - 11 mmol/L | [...] | + + + + + | [facility] | [address] | [place] [address] | | | SERVICES, CORE | [address] | | | + + + + + HEMOGLOBIN, POC RESP (12/04/2012 3:33 PM PDT) + +---------+ + + + | Component | Value | Ref Range | Performed | Pathologist | | | | | At | Signature | + +---------+ + + + | HEMOGLOBIN, | 8.3 (L) | 13.5 - 17.5 | [facility] | | | POC | | g/dL | RESPIRATORY | | | | | | THERAPY | | + +---------+ + + + + + | Specimen | + + | | + + + + + + + | Performing | Address | City/State/Zipcode | Phone Number | | Organization | | | | + + + + + | [facility] | [address] | [place], [place] | | | THERAPY | [address] | [address] | | + + + + + LACTATE, POC (12/04/2012 3:33 PM PDT) + + + + + + | Component | Value | Ref Range | Performed | Pathologist | | | | | At | Signature | + + + + + + | LACTATE, | 14.0 (H) | 0.5 - 1.6 | [facility] | | | POC ABL | | mmol/L | RESPIRATORY | | | | | | THERAPY | | + + + + + + + + | Specimen | + + | | + + + + + + + | Performing | Address | City/State/Zipcode | Phone Number | | Organization | | | | + + + + + | [facility] | [address] | [place], [place] | | | THERAPY | [address] | [address] | | + + + + + CHRISTINE VAZQUEZ WB, POC RESP (12/04/2012 3:33 PM PDT) + + + + + + | Component | Value | Ref Range | Performed | Pathologist | | | | | At | Signature | + + + + + + | BERTA | 1.11 (L) | 1.14 - 1.32 | [facility] | | | IONIZED | | mmol/L | RESPIRATORY | | | CA,WHOLE | | | THERAPY | | | BLD,POC | | | | | + + + + + + + + | Specimen | + + | | + + + + + + + | Performing | Address | City/State/Zipcode | Phone Number | | Organization | | | | + + + + + | [facility] | [address] | [place], [place] | | | THERAPY | [address] | [address] | | + + + + + POTASSIUM WB, POC RESP (12/04/2012 3:33 PM PDT) + +---------+ + + + | Component | Value | Ref Range | Performed | Pathologist | | | | | At | Signature | + +---------+ + + + | POTASSIUM,W | 5.1 (H) | 3.4 - 5.0 | [facility] | | | HL BLD, POC | | mmol/L | RESPIRATORY | | | | | | THERAPY | | + +---------+ + + + + + | Specimen | + + | | + + + + + + + | Performing | Address | City/State/Zipcode | Phone Number | | Organization | | | | + + + + + | [facility] | [address] | [place], [place] | | | THERAPY | [address] | [address] | | + + + + + SODIUM WB, POC RESP (12/04/2012 3:33 PM PDT) + +-------+ + + + | Component | Value | Ref Range | Performed | Pathologist | | | | | At | Signature | + +-------+ + + + | SODIUM, WHL | 142 | 134 - 143 | [facility] | | | BLD, POC | | mmol/L | RESPIRATORY | | | | | | THERAPY | | + +-------+ + + + + + | Specimen | + + | | + + + + + + + | Performing | Address | City/State/Zipcode | Phone Number | | Organization | | | | + + + + + | [facility] | [address] | [place], [place] | | | THERAPY | [address] | [address] | | + + + + + BLOOD GAS ART, POC RESP (12/04/2012 3:33 PM PDT) + + + + + + | Component | Value | Ref Range | Performed | Pathologist | | | | | At | Signature | + + + + + + | HCO3 | 14.2 (L) | 21 - 28 mmol/L | [facility] | | | ARTERIAL, | | | RESPIRATORY | | | POC | | | THERAPY | | + + + + + + | PCO2 | 35 | 32 - 43 mmHg | [facility] | | | ARTERIAL, | | | RESPIRATORY | | | POC | | | THERAPY | | + + + + + + | PH | 7.21 (AA) | 7.37 - 7.44 | [facility] | | | ARTERIAL, | | | RESPIRATORY | | | POC | | | THERAPY | | + + + + + + | BASE EXCESS | -13.7 | | [facility] | | | ART, POC | | | RESPIRATORY | | | | | | THERAPY | | + + + + + + | CALC %O2 | 99.8 (H) | 92.0 - 98.0 % | [facility] | | | SAT ART, | | | RESPIRATORY | | | POC | | | THERAPY | | + + + + + + | PO2 | 234 (H) | 72 - 104 mmHg | [facility] | | | ARTERIAL, | | | RESPIRATORY | | | POC | | | THERAPY | | + + + + + + | FIO2 ART, | 100.0 | | [facility] | | | POC | | | RESPIRATORY | | | | | | THERAPY | | + + + + + + | PAT TEMP | 36.6 | | [facility] | | | ART, POC | | | RESPIRATORY | | | | | | THERAPY | | + + + + + + + + | Specimen | + + | | + + + + + + + | Performing | Address | City/State/Zipcode | Phone Number | | Organization | | | | + + + + + | [facility] | [address] | [place], [place] | | | THERAPY | [address] | [address] | | + + + + + X-RAY PORTABLE CHEST 1 VIEW (12/04/2012 3:25 PM PDT) + + + + + + | Component | Value | Ref Range | Performed | Pathologist | | | | | At | Signature | + + + + + + | X-RAY | STUDY: DC CHEST 1 VIEW | | | | | PORTABLE | 12/04/12 15:25:00 | | | | | CHEST 1 | INDICATION: Left IJ | | | | | VIEW | placement. 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 COMPARISON: Same | | | | | | day FINDINGS: Right IJ | | | | | | with its tip in the | | | | | | upper SVC. There is no | | | | | | | | | | | | pneumothorax.Endotrachea | | | | | | l tube is present with | | | | | | tip 8 cm from john. | | | | | | Cardiomediastinal | | | | | | silhouette is enlarged. | | | | | | Sternotomy wires | | | | | | arestable. Increased | | | | | | left lower lobe | | | | | | atelectasis and stable | | | | | | leftpleural effusion. | | | | | | Osseous structures are | | | | | | unremarkable. | | | | | | IMPRESSION: New right IJ | | | | | | with tip in the upper | | | | | | SVC. New endotracheal | | | | | | tube. Stable | | | | | | cardiomegaly with | | | | | | increased left lower | | | | | | lobe atelectasis | | | | | | andsmall pleural | | | | | | effusion. Attending | | | | | | Radiologists: TINY Suarez | | | | | | RADHA MDAuthor: | | | | | | HEIDI PALMER MD I | | | | | | have personally viewed | | | | | | this procedure/exam, | | | | | | reviewed this report,and | | | | | | made changes to it | | | | | | where appropriate. | | | | | | Final/Electronically | | | | | | signed / TINY Suarez | | | | | | RADHA 12/04/2012 | | | | | | 16:37 PM | | | | + + [...] | | | + +---------+ + + HEMOGLOBIN, POC RESP (12/04/2012 2:46 PM PDT) + +---------+ + + + | Component | Value | Ref Range | Performed | Pathologist | | | | | At | Signature | + +---------+ + + + | HEMOGLOBIN, | 9.2 (L) | 13.5 - 17.5 | [facility] | | | POC | | g/dL | RESPIRATORY | | | | | | THERAPY | | + +---------+ + + + + + | Specimen | + + | | + + + + + + + | Performing | Address | City/State/Zipcode | Phone Number | | Organization | | | | + + + + + | [facility] | [address] | [place], [place] | | | THERAPY | [address] | [address] | | + + + + + GERMAN BREEN (12/04/2012 2:46 PM PDT) + + + + + + | Component | Value | Ref Range | Performed | Pathologist | | | | | At | Signature | + + + + + + | LACTATE, | 13.4 (H) | 0.5 - 1.6 | [facility] | | | POC ABL | | mmol/L | RESPIRATORY | | | | | | THERAPY | | + + + + + + + + | Specimen | + + | | + + + + + + + | Performing | Address | City/State/Zipcode | Phone Number | | Organization | | | | + + + + + | [facility] | [address] | [place], [place] | | | THERAPY | [address] | [address] | | + + + + + CHRISTINE VAZQUEZ WB, POC RESP (12/04/2012 2:46 PM PDT) + + + + + + | Component | Value | Ref Range | Performed | Pathologist | | | | | At | Signature | + + + + + + | BERTA | 1.09 (L) | 1.14 - 1.32 | [facility] | | | IONIZED | | mmol/L | RESPIRATORY | | | CA,WHOLE | | | THERAPY | | | BLD,POC | | | | | + + + + + + + + | Specimen | + + | | + + + + + + + | Performing | Address | City/State/Zipcode | Phone Number | | Organization | | | | + + + + + | [facility] | [address] | [place], [place] | | | THERAPY | [address] | [address] | | + + + + + POTASSIUM WB, POC RESP (12/04/2012 2:46 PM PDT) + + + + + + | Component | Value | Ref Range | Performed | Pathologist | | | | | At | Signature | + + + + + + | POTASSIUM,W | 6.2 (AA) | 3.4 - 5.0 | [facility] | | | HL BLD, POC | | mmol/L | RESPIRATORY | | | | | | THERAPY | | + + + + + + + + | Specimen | + + | | + + + + + + + | Performing | Address | City/State/Zipcode | Phone Number | | Organization | | | | + + + + + | [facility] | [address] | [place], [place] | | | THERAPY | [address] | [address] | | + + + + + SODIUM WB, POC RESP (12/04/2012 2:46 PM PDT) + +-------+ + + + | Component | Value | Ref Range | Performed | Pathologist | | | | | At | Signature | + +-------+ + + + | SODIUM, WHL | 139 | 134 - 143 | [facility] | | | BLD, POC | | mmol/L | RESPIRATORY | | | | | | THERAPY | | + +-------+ + + + + + | Specimen | + + | | + + + + + + + | Performing | Address | City/State/Zipcode | Phone Number | | Organization | | | | + + + + + | [facility] | [address] | [place], [place] | | | THERAPY | [address] | [address] | | + + + + + BLOOD GAS ART, POC RESP (12/04/2012 2:46 PM PDT) + + + + + + | Component | Value | Ref Range | Performed | Pathologist | | | | | At | Signature | + + + + + + | HCO3 | 10.8 (L) | 21 - 28 mmol/L | [facility] | | | ARTERIAL, | | | RESPIRATORY | | | POC | | | THERAPY | | + + + + + + | PCO2 | 41 | 32 - 43 mmHg | [facility] | | | ARTERIAL, | | | RESPIRATORY | | | POC | | | THERAPY | | + + + + + + | PH | 7.03 (AA) | 7.37 - 7.44 | [facility] | | | ARTERIAL, | | | RESPIRATORY | | | POC | | | THERAPY | | + + + + + + | BASE EXCESS | -20.0 | | [facility] | | | ART, POC | | | RESPIRATORY | | | | | | THERAPY | | + + + + + + | CALC %O2 | 99.2 (H) | 92.0 - 98.0 % | [facility] | | | SAT ART, | | | RESPIRATORY | | | POC | | | THERAPY | | + + + + + + | PO2 | 249 (H) | 72 - 104 mmHg | [facility] | | | ARTERIAL, | | | RESPIRATORY | | | POC | | | THERAPY | | + + + + + + | FIO2 ART, | 100.0 | | [facility] | | | POC | | | RESPIRATORY | | | | | | THERAPY | | + + + + + + | PAT TEMP | 37.0 | | [facility] | | | ART, POC | | | RESPIRATORY | | | | | | THERAPY | | + + + + + + + + | Specimen | + + | | + + + + + + + | Performing | Address | City/State/Zipcode | Phone Number | | Organization | | | | + + + + + | [facility] | [address] | [place], [place] | | | THERAPY | [address] | [address] | | + + + + + LACTIC ACID (12/04/2012 11:51 AM PDT) + +-------+ + + + | Component | Value | Ref Range | Performed | Pathologist | | | | | At | Signature | + +-------+ + + + | LACTATE | 4.9 | mmol/L | [facility] | | | | | | LABORATORY | | | | | | SERVICES, | | | | | | CORE | | + +-------+ + + + + + | Specimen | + + | Blood - Blood | + + + + + | Narrative | Performed At | + + + | Reference Range: Venous blood: 0.5 - 2.2 mmol/L | [facility] | | Arterial blood: 0.5 - 1.6 mmol/L | LABORATORY | | | SERVICES, CORE | + + + + + + + + | Performing | Address | City/State/Zipcode | Phone Number | | Organization | | | | + + + + + | [facility] | [address] | [place] [address] | | | SERVICES, [facility] | [address] | | | + + + + + X-RAY PORTABLE CHEST 1 VIEW (12/04/2012 9:58 AM PDT) + + + + + + | Component | Value | Ref Range | Performed | Pathologist | | | | | At | Signature | + + + + + + | X-RAY | EXAM: DC CHEST 1 VIEW | | | | | PORTABLE | 12/04/12 09:58:00 | | | | | CHEST 1 | HISTORY: Shortness of | | | | | VIEW | breath following CABG, | | | | | | evaluate for | | | | | | aspirationpneumonia. | | | | | | COMPARISON: 12/01/2012. | | | | | | FINDINGS: The | | | | | | cardiomediastinal | | | | | | silhouette is enlarged, | | | | | | as before.Sternotomy | | | | | | wires are intact and | | | | | | well aligned. The | | | | | | Randle-Jeremi catheterhas | | | | | | been removed. | | | | | | Bilateral pleural | | | | | | effusions, left greater | | | | | | thanright with | | | | | | compressive left lower | | | | | | lobe atelectasis have | | | | | | mildlyimproved. The | | | | | | osseous structures are | | | | | | intact. IMPRESSION: | | | | | | Cardiomegaly with | | | | | | bilateral pleural | | | | | | effusions, left greater | | | | | | thanright. Improving | | | | | | bilateral lower lobe | | | | | | atelectasis. Attending | | | | | | Radiologists: TINY Suarez | | | | | | RADHA MDAuthor: Vinnie | | | | | | Soren Kern I have | | | | | | personally viewed this | | | | | | procedure/exam, reviewed | | | | | | this report,and made | | | | | | changes to it where | | | | | | appropriate. | | | | | | Final/Electronically | | | | | | signed / TINY Suarez | | | | | | RADHA 12/04/2012 | | | | | | 14:00 PM | | | | + + [...] | | | + +---------+ + + BLOOD GASES, ARTERIAL - LAB (12/04/2012 9:25 AM PDT) + + + + + + | Component | Value | Ref Range | Performed | Pathologist | | | | | At | Signature | + + + + + + | PAT TEMP | ng | Degree C | [facility] | | | ARTERIAL | | | LABORATORY | | | | | | SERVICES, | | | | | | CORE | | + + + + + + | FIO2 | ng | | [facility] | | | ARTERIAL | | | LABORATORY | | | | | | SERVICES, | | | | | | CORE | | + + + + + + | PH ARTERIAL | 7.49 (H) | 7.37 - 7.44 | [facility] | | | | | | LABORATORY | | | | | | SERVICES, | | | | | | CORE | | + + + + + + | PCO2 | 20 (LL) | 32 - 43 mmHg | [facility] | | | ARTERIAL | | | LABORATORY | | | | | | SERVICES, | | | | | | CORE | | + + + + + + | PO2 | 74 | 72 - 104 mmHg | [facility] | | | ARTERIAL | | | LABORATORY | | | | | | SERVICES, | | | | | | CORE | | + + + + + + | HCO3 | 15 (L) | 21 - 28 mmol/L | [facility] | | | ARTERIAL | | | LABORATORY | | | | | | SERVICES, | | | | | | CORE | | + + + + + + | TOTAL CO2 | 16 (L) | 22 - 28 mmol/L | [facility] | | | ARTERIAL | | | LABORATORY | | | | | | SERVICES, | | | | | | CORE | | + + + + + + | BASE EXCESS | -6.5 | | [facility] | | | ARTERIAL | | | LABORATORY | | | | | | SERVICES, | | | | | | CORE | | + + + + + + | O2 SAT, | 95.9 | 92.0 - 98.0 | [facility] | | | ARTERIAL | | | LABORATORY | | | [...] + | [facility] | [address] | [place] [address] | | | SERVICES, CORE | [address] | | | + + + + + CBC (12/04/2012 8:37 AM PDT) + + + + + + | Component | Value | Ref Range | Performed | Pathologist | | | | | At | Signature | + + + + + + | WBC COUNT | 14.4 (H)Comment: Final | 4.4 - 11.0 K/cu | [facility] | | | | WBC report. NRBCs seen | mm | LABORATORY | | | | on scan of smear. | | SERVICES, | | | | | | CORE | | + + + + + + | RED CELL | 3.08 (L) | 4.50 - 5.90 | [facility] | | | COUNT | | M/cu mm | LABORATORY | | | | | | SERVICES, | | | | | | CORE | | + + + + + + | HEMOGLOBIN | 9.8 (L) | 13.5 - 17.5 | [facility] | | | | | g/dL | LABORATORY | | | | | | SERVICES, | | | | | | CORE | | + + + + + + | HEMATOCRIT | 29.1 (L) | 41.0 - 53.0 % | [facility] | | | | | | LABORATORY | | | | | | SERVICES, | | | | | | CORE | | + + + + + + | MCV | 94.5 | 80.0 - 96.0 fL | [facility] | | | | | | LABORATORY | | | | | | SERVICES, | | | | | | CORE | | + + + + + + | MCHC | 33.5 | 33.4 - 35.5 | [facility] | | | | | g/dL | LABORATORY | | | | | | SERVICES, | | | | | | CORE | | + + + + + + | RDW | 15.2 (H) | 11.5 - 15.0 % | [facility] | | | | | | LABORATORY | | | | | | SERVICES, | | | | | | CORE | | + + + + + + | PLATELET | 156Comment: Final | 150 - 400 K/cu | [facility] | | | COUNT | platelet report. Macro | mm | LABORATORY | | | | platelets present. | | SERVICES, | | | | | | CORE | | + + + + + + + + | Specimen | + + | Blood - Blood | + + + + + + + | Performing | Address | City/State/Zipcode | Phone Number | | Organization | | | | + + + + + | [facility] | [address] | [place] [address] | | | SERVICES, CORE | [address] | | | + + + + + MAGNESIUM, PLASMA (12/04/2012 8:37 AM PDT) + +---------+ + + + | Component | Value | Ref Range | Performed | Pathologist | | | | | At | Signature | + +---------+ + + + | MAGNESIUM,P | 2.6 (H) | 1.8 - 2.5 mg/dL | [facility] [...] + | [facility] | [address] | [place] [address] | | | SERVICES, CORE | [address] | | | + + + + + RENAL FUNCTION SET (NA,K,CL,CO2,BUN,CREAT,GLUC,CA,PHOS,ALB ) (12/04/2012 8:37 AM PDT) + + + + + + | Component | Value | Ref Range | Performed | Pathologist | | | | | At | Signature | + + + + + + | GLUCOSE, | 123 (H) | 60 - 99 mg/dL | [facility] | | | PLASMA | | | LABORATORY | | | (LAB) | | | SERVICES, | | | | | | CORE | | + + + + + + | BUN, PLASMA | 45 (H) | 6 - 20 mg/dL | [facility] | | | (LAB) | | | LABORATORY | | | | | | SERVICES, | | | | | | CORE | | + + + + + + | CREATININE | 2.29 (H) | 0.70 - 1.30 | [facility] | | | PLASMA | | mg/dL | LABORATORY | | | (LAB) | | | SERVICES, | | | | | | CORE | | + + + + + + | SODIUM, | 139 | 136 - 145 | [facility] | | | PLASMA | | mmol/L | LABORATORY | | | (LAB) | | | SERVICES, | | | | | | CORE | | + + + + + + | POTASSIUM, | 5.1 (H) | 3.4 - 5.0 | [facility] | [...] + + + | TOTAL CO2, | 17 (L) | 21 - 32 mmol/L | [...] + + + + | ALBUMIN, | 2.9 (L) | 3.5 - 4.7 g/dL | [facility] | | | PLASMA | | | LABORATORY | | | (LAB) | | | SERVICES, | | | | | | CORE | | + + + + + + | PHOSPHORUS, | 4.8 (H) | 2.4 - 4.7 mg/dL | [facility] | | | PLASMA [...] + + + | ANION GAP | 17 (H) | 4 - 11 mmol/L | [facility] | | | | | | LABORATORY | | | | | | SERVICES, | | | | | | CORE | | + + + + + + | ANION | 19 (H) | 4 - 11 mmol/L | [...] + | [facility] | [address] | [place] [address] | | | SERVICES, CORE | [address] | | | + + + + + INR (12/04/2012 8:37 AM PDT) + + + + + + | Component | Value | Ref Range | Performed | Pathologist | | | | | At | Signature | + + + + + + | INR | 1.67 (H) | 0.90 - 1.20 INR | [...] + | [facility] | [address] | [place] [address] | | | SERVICES, CORE | [address] | | | + + + + + HEPARIN, EITHER STANDARD / LMW, BLOOD (12/04/2012 8:37 AM PDT) + +-------+ + + + | Component | Value | Ref Range | Performed | Pathologist | | | | | At | Signature | + +-------+ + + + | HEPARIN, | 0.17 | U/mL | [facility] | | | STD LMW | | | LABORATORY | | | | | | TANIA, | | | | | | CORE | | + +-------+ + + + + + | Specimen | + + | Blood - Blood | + + + + + | Narrative | Performed At | + + + | Heparin, Either STD/LMW - Therapeutic Ranges: Heparin, | [facility] | | Unfractionated: 0.35 - 0.70 U/mL Enoxaparin, LMWH: 0.70 | LABORATORY | | - 1.20 U/mL Dalteparin, LMWH: 0.70 - 1.20 U/mL | SERVICES, CORE | | Tinzaparin, LMWH: Therapeutic range not established. | | | Preliminary studies suggest range | | | similar to dalteparin. Clinical | | | correlation required. | | | Heparin levels may be unreliable for: | | | Total bilirubin >6.6mg/dL | | | Triglycerides >360 mg/dL | | | or Moderate to Gross Hemolysis | | + + + + + + + + | Performing | Address | City/State/Zipcode | Phone Number | | Organization | | | | + + + + + | [facility] | [address] | [place] [address] | | | SERVICES, CORE | [address] | | | + + + + + CAPILLARY BLOOD GLUCOSE (NO CHG), POC (12/04/2012 8:06 AM PDT) + +---------+ + + + | Component | Value | Ref Range | Performed | Pathologist | | | | | At | Signature | + +---------+ + + + | BLOOD | 124 (H) | 60 - 99 mg/dL | [facility] - | | | GLUCOSE, | | [...] + | [facility] | [address] | [place], [place] | | | [facility] | [address] | [address] | | | TESTS | | | | + + + + + TRANSTHORACIC ECHOCARDIOGRAM, ADULT (12/04/2012 12:00 AM PDT) + + + | Narrative | Performed At | + + + | | | | | | + + + + + | Procedure Note | + + | Diana Miller - 12/04/2012 7:51 PM PDT | + + 12 LEAD ECG (12/03/2012 11:38 PM PDT) + + + + + + | Component | Value | Ref Range | Performed | Pathologist | | | | | At | Signature | + + + + + + | VENTRICULAR | 96 | BPM | [facility] | | | RATE | | | OF | | | | | | CARDIOLOGY | | + + + + + + | ATRIAL RATE | 96 | BPM | [facility] | | | | | | OF | | | | | | CARDIOLOGY | | + + + + + + | P-R | 160 | ms | [facility] | | | INTERVAL | | | OF | | | | | | CARDIOLOGY | | + + + + + + | QRS | 104 | ms | [facility] | | | DURATION | | | OF | | | | | | CARDIOLOGY | | + + + + + + | QT | 334 | ms | [facility] | | | | | | OF | | | | | | CARDIOLOGY | | + + + + + + | QTC | 421 | ms | [facility] | | | | | | OF | | | | | | CARDIOLOGY | | + + + + + + | R AXIS | 92 | degrees | [facility] | | | | | | OF | | | | | | CARDIOLOGY | | + + + + + + | T AXIS | 28 | degrees | [facility] | | | | | | OF | | | | | | CARDIOLOGY | | + + + + + + | EKG | Unusual P axis, possible | | [facility] | | | DIAGNOSIS | ectopic atrial | | OF | | | | rhythmRightward | | CARDIOLOGY | | | | axisAnteroseptal infarct | | | | | | , age | | | | | | undeterminedAbnormal | | | | | | ECGConfirmed by [place] | | | | | | AYALA ([id number]) on 01/22/2013 | | | | | | 11:10:44 AM | | | | + + + + + + + + | Specimen | + + | | + + + + + | Narrative | Performed At | + + + | Please click | [facility] | | on view image for the detailed interpretation from [employer] results. | CARDIOLOGY | + + + + + + + + | Performing | Address | City/State/Zipcode | Phone Number | | Organization | | | | + + + + + | [facility] | [address] | [place], [place] | | | CARDIOLOGY | [address] | [address] | | + + + + + CAPILLARY BLOOD GLUCOSE (NO CHG), POC (12/03/2012 11:23 PM PDT) + +---------+ + + + | Component | Value | Ref Range | Performed | Pathologist | | | | | At | Signature | + +---------+ + + + | BLOOD | 199 (H) | 60 - 99 mg/dL | [...] + | [facility] | [address] | [place], [place] | | | [facility] | [address] | [address] | | | TESTS | | | | + + + + + HEPARIN, EITHER STANDARD / LMW, BLOOD (12/03/2012 8:37 PM PDT) + +-------+ + + + | Component | Value | Ref Range | Performed | Pathologist | | | | | At | Signature | + +-------+ + + + | HEPARIN, | <0.10 | U/mL | [facility] | | | STD LMW | | | LABORATORY | | | | | | SERVICES, | | | | | | CORE | | + +-------+ + + + + + | Specimen | + + | Blood - Blood | + + + + + | Narrative | Performed At | + + + | Heparin, Either STD/LMW - Therapeutic Ranges: Heparin, | [facility] | | Unfractionated: 0.35 - 0.70 U/mL Enoxaparin, LMWH: 0.70 | LABORATORY | | - 1.20 U/mL Dalteparin, LMWH: 0.70 - 1.20 U/mL | SERVICES, CORE | | Tinzaparin, LMWH: Therapeutic range not established. | | | Preliminary studies suggest range | | | similar to dalteparin. Clinical | | | correlation required. | | | Heparin levels may be unreliable for: | | | Total bilirubin >6.6mg/dL | | | Triglycerides >360 mg/dL | | | or Moderate to Gross Hemolysis | | + + + + + + + + | Performing | Address | City/State/Zipcode | Phone Number | | Organization | | | | + + + + + | [facility] | [address] | [place] [address] | | | TANIA, TOI | [address] | | | + + + + + APTT (ACT. PART. THROMBO TIME) (12/03/2012 8:37 PM PDT) + + + + + + | Component | Value | Ref Range | Performed | Pathologist | | | | | At | Signature | + + + + + + | APTT | 70.0 (H) | 26.0 - 36.0 | [facility] [...] 0.7 U/mL | LABORATORY | | | SERVICEST[facility]I | + + + + + + + + | Performing | Address | City/State/Zipcode | Phone Number | | Organization | | | | + + + + + | [facility] | [address] | [place] [address] | | | SERVICESTOI | [address] | | | + + + + + CAPILLARY BLOOD GLUCOSE (NO CHG), POC (12/03/2012 2:16 PM PDT) + +---------+ + + + | Component | Value | Ref Range | Performed | Pathologist | | | | | At | Signature | + +---------+ + + + | BLOOD | 143 (H) | 60 - 99 mg/dL | [...] + + + + | [facility] | [address] | [place], [place] | | | K[facility]YN [facility] C[facility] | [address] | [address] | | | TESTS | | | | + + + + + HEPARIN, EITHER STANDARD / LMW, BLOOD (12/03/2012 2:13 PM PDT) + +-------+ + + + | Component | Value | Ref Range | Performed | Pathologist | | | | | At | Signature | + +-------+ + + + | HEPARIN, | <0.10 | U/mL | [facility] | | | STD LMW | | | LABORATORY | | | | | | SERVICES, | | | | | | CORE | | + +-------+ + + + + + | Specimen | + + | Blood - Blood | + + + + + | Narrative | Performed At | + + + | Heparin, Either STD/LMW - Therapeutic Ranges: Heparin, | [facility] | | Unfractionated: 0.35 - 0.70 U/mL Enoxaparin, LMWH: 0.70 | LABORATORY | | - 1.20 U/mL Dalteparin, LMWH: 0.70 - 1.20 U/mL | SERVICES, CORE | | Tinzaparin, LMWH: Therapeutic range not established. | | | Preliminary studies suggest range | | | similar to dalteparin. Clinical | | | correlation required. | | | Heparin levels may be unreliable for: | | | Total bilirubin >6.6mg/dL | | | Triglycerides >360 mg/dL | | | or Moderate to Gross Hemolysis | | + + + + + + + + | Performing | Address | City/State/Zipcode | Phone Number | | Organization | | | | + + + + + | [facility] | [address] | [place] [address] | | | SERVICES, CORE | [address] | | | + + + + + APTT (ACT. PART. THROMBO TIME) (12/03/2012 2:13 PM PDT) + + + + + + | Component | Value | Ref Range | Performed | Pathologist | | | | | At | Signature | + + + + + + | APTT | 70.2 (H) | 26.0 - 36.0 | [facility] [...] + | [facility] | [address] | [place] [address] | | | SERVICES, TOI | [address] | | | + + + + + CAPILLARY BLOOD GLUCOSE (NO CHG), POC (12/03/2012 9:58 AM PDT) + +---------+ + + + | Component | Value | Ref Range | Performed | Pathologist | | | | | At | Signature | + +---------+ + + + | BLOOD | 121 (H) | 60 - 99 mg/dL | [facility] - | | | GLUCOSE, | | [...] | [facility] | [address] | [place], [place] | | | [facility] OF [facility] | [address] | [address] | | | TESTS | | | | + + + + + HEPARIN, EITHER STANDARD / LMW, BLOOD (12/03/2012 4:01 AM PDT) + +-------+ + + + | Component | Value | Ref Range | Performed | Pathologist | | | | | At | Signature | + +-------+ + + + | HEPARIN, | <0.10 | U/mL | [facility] | | | STD LMW | | | LABORATORY | | | | | | SERVICES, | | | | | | CORE | | + +-------+ + + + + + | Specimen | + + | Blood - Blood | + + + + + | Narrative | Performed At | + + + | Heparin, Either STD/LMW - Therapeutic Ranges: Heparin, | [facility] | | Unfractionated: 0.35 - 0.70 U/mL Enoxaparin, LMWH: 0.70 | LABORATORY | | - 1.20 U/mL Dalteparin, LMWH: 0.70 - 1.20 U/mL | SERVICES, CORE | | Tinzaparin, LMWH: Therapeutic range not established. | | | Preliminary studies suggest range | | | similar to dalteparin. Clinical | | | correlation required. | | | Heparin levels may be unreliable for: | | | Total bilirubin >6.6mg/dL | | | Triglycerides >360 mg/dL | | | or Moderate to Gross Hemolysis | | + + + + + + + + | Performing | Address | City/State/Zipcode | Phone Number | | Organization | | | | + + + + + | [facility] | [address] | [place] [address] | | | SERVICES, CORE | [address] | | | + + + + + CBC (12/03/2012 4:01 AM PDT) + + + + + + | Component | Value | Ref Range | Performed | Pathologist | | | | | At | Signature | + + + + + + | WBC COUNT | 7.6 | 4.4 - 11.0 K/cu | [facility] | | | | | mm | LABORATORY | | | | | | SERVICES, | | | | | | CORE | | + + + + + + | RED CELL | 2.68 (L) | 4.50 - 5.90 | [facility] | | | COUNT | | M/cu mm | LABORATORY | | | | | | SERVICES, | | | | | | CORE | | + + + + + + | HEMOGLOBIN | 8.4 (L) | 13.5 - 17.5 | [facility] | | | | | g/dL | LABORATORY | | | | | | SERVICES, | | | | | | CORE | | + + + + + + | HEMATOCRIT | 25.2 (L) | 41.0 - 53.0 % | [facility] | | | | | | LABORATORY | | | | | | SERVICES, | | | | | | CORE | | + + + + + + | MCV | 93.8 | 80.0 - 96.0 fL | [facility] | | | | | | LABORATORY | | | | | | SERVICES, | | | | | | CORE | | + + + + + + | MCHC | 33.5 | 33.4 - 35.5 | [facility] | | | | | g/dL | LABORATORY | | | | | | SERVICES, | | | | | | CORE | | + + + + + + | RDW | 14.8 | 11.5 - 15.0 % | [facility] | | | | | | LABORATORY | | | | | | SERVICES, | | | | | | CORE | | + + + + + + | PLATELET | 92 (L) | 150 - 400 K/cu | [facility] [...] | + + + + + | [facility] | [address] | [place] [address] | | | SERVICES, CORE | [address] | | | + + + + + RENAL FUNCTION SET (NA,K,CL,CO2,BUN,CREAT,GLUC,CA,PHOS,ALB ) (12/03/2012 4:01 AM PDT) + + + + + + | [...] + + + | BUN, PLASMA | 31 (H) | 6 - 20 mg/dL | [facility] | | | (LAB) | | | LABORATORY | | | | | | SERVICES, | | | | | | CORE | | + + + + + + | CREATININE | 1.90 (H) | 0.70 - 1.30 | [facility] [...] + + + + | CHLORIDE, | 106 | 97 - 108 mmol/L | [facility] | | | PLASMA | | | LABORATORY | | | (LAB) | | | SERVICES, | | | | | | CORE | | + + + + + + | TOTAL CO2, | 27 | 21 - 32 mmol/L | [facility] | | | PLASMA | | | LABORATORY | | | (LAB) | | | SERVICES, | | | | | | CORE | | + + + + + + | CALCIUM, | 7.9 (L) | 8.6 - 10.2 | [facility] | | | PLASMA | | mg/dL | LABORATORY | | | (LAB) | | | SERVICES, | | | | | | CORE | | + + + + + + | ALBUMIN, | 2.3 (L) | 3.5 - 4.7 g/dL | [facility] | | | PLASMA | | | LABORATORY | | | (LAB) | | | SERVICES, | | | | | | CORE | | + + + + + + | PHOSPHORUS, | 2.9 | 2.4 - 4.7 mg/dL | [facility] | | | PLASMA [...] + + + | ANION GAP | 7 | 4 - 11 mmol/L | [facility] | | | | | | LABORATORY | | | | | | SERVICES, | | | | | | CORE | | + + + + + + | ANION | 11 | 4 - 11 mmol/L | [facility] [...] | + + + + + | [facility] | [address] | [place] [address] | | | SERVICES, CORE | [address] | | | + + + + + INR (12/03/2012 4:01 AM PDT) + + + + + + | Component | Value | Ref Range | Performed | Pathologist | | | | | At | Signature | + + + + + + | INR | 1.54 (H) | 0.90 - 1.20 INR | [...] | + + + + + | [facility] | [address] | [place] [address] | | | SERVICES, TOI | [address] | | | + + + + + MAGNESIUM, PLASMA (12/03/2012 4:01 AM PDT) + +-------+ + + + | Component | Value | Ref Range | Performed | Pathologist | | | | | At | Signature | + +-------+ + + + | MAGNESIUM,P | 2.4 | 1.8 - 2.5 mg/dL | [facility] [...] + | [facility] | [address] | [place] [address] | | | SERVICES, CORE | [address] | | | + + + + + CAPILLARY BLOOD GLUCOSE (NO CHG), POC (12/02/2012 9:50 PM PST) + +---------+ + + + | Component | Value | Ref Range | Performed | Pathologist | | | | | At | Signature | + +---------+ + + + | BLOOD | 153 (H) | 60 - 99 mg/dL | [...] | [facility] | [address] | [place], [place] | | | [facility]YN [facility] OF [facility] | [address] | [address] | | | TESTS | | | | + + + + + HEPARIN, EITHER STANDARD / LMW, BLOOD (12/02/2012 6:49 PM PST) + +-------+ + + + | Component | Value | Ref Range | Performed | Pathologist | | | | | At | Signature | + +-------+ + + + | HEPARIN, | <0.10 | U/mL | [facility] | | | STD LMW | | | LABORATORY | | | | | | SERVICES, | | | | | | CORE | | + +-------+ + + + + + | Specimen | + + | Blood - Blood | + + + + + | Narrative | Performed At | + + + | Heparin, Either STD/LMW - Therapeutic Ranges: Heparin, | [facility] | | Unfractionated: 0.35 - 0.70 U/mL Enoxaparin, LMWH: 0.70 | LABORATORY | | - 1.20 U/mL Dalteparin, LMWH: 0.70 - 1.20 U/mL | SERVICES, CORE | | Tinzaparin, LMWH: Therapeutic range not established. | | | Preliminary studies suggest range | | | similar to dalteparin. Clinical | | | correlation required. | | | Heparin levels may be unreliable for: | | | Total bilirubin >6.6mg/dL | | | Triglycerides >360 mg/dL | | | or Moderate to Gross Hemolysis | | + + + + + + + + | Performing | Address | City/State/Zipcode | Phone Number | | Organization | | | | + + + + + | [facility] | [address] | [place] [address] | | | SERVICES, CORE | [address] | | | + + + + + CAPILLARY BLOOD GLUCOSE (NO CHG), POC (12/02/2012 5:29 PM PST) + +---------+ + + + | Component | Value | Ref Range | Performed | Pathologist | | | | | At | Signature | + +---------+ + + + | BLOOD | 124 (H) | 60 - 99 mg/dL | [facility] - | | | GLUCOSE, | | [...] + | [facility] | [address] | [place], [place] | | | [facility] | [address] | [address] | | | TESTS | | | | + + + + + CAPILLARY BLOOD GLUCOSE (NO CHG), POC (12/02/2012 12:00 PM PST) + +---------+ + + + | Component | Value | Ref Range | Performed | Pathologist | | | | | At | Signature | + +---------+ + + + | BLOOD | 151 (H) | 60 - 99 [...] + + + + | [facility] | [address] | [place], [place] | | | [facility] | [address] | [address] | | | TESTS | | | | + + + + + CAPILLARY BLOOD GLUCOSE (NO CHG), POC (12/02/2012 8:43 AM PST) + +---------+ + + + | Component | Value | Ref Range | Performed | Pathologist | | | | | At | Signature | + +---------+ + + + | BLOOD | 166 (H) | 60 - 99 mg/dL | [...] + + + + | [facility] | [address] | [place], [place] | | | K[facility]YN [facility] OF [facility] | [address] | [address] | | | TESTS | | | | + + + + + CAPILLARY BLOOD GLUCOSE (NO CHG), POC (12/02/2012 6:05 AM PST) + +---------+ + + + | Component | Value | Ref Range | Performed | Pathologist | | | | | At | Signature | + +---------+ + + + | BLOOD | 171 (H) | 60 - 99 mg/dL | [...] + | [facility] | [address] | [place], [place] | | | [facility] | [address] | [address] | | | TESTS | | | | + + + + + HEPARIN, EITHER STANDARD / LMW, BLOOD (12/02/2012 6:00 AM PST) + +-------+ + + + | Component | Value | Ref Range | Performed | Pathologist | | | | | At | Signature | + +-------+ + + + | HEPARIN, | <0.10 | U/mL | [facility] | | | STD LMW | | | LABORATORY | | | | | | SERVICES, | | | | | | CORE | | + +-------+ + + + + + | Specimen | + + | Blood - Blood | + + + + + | Narrative | Performed At | + + + | Heparin, Either STD/LMW - Therapeutic Ranges: Heparin, | [facility] | | Unfractionated: 0.35 - 0.70 U/mL Enoxaparin, LMWH: 0.70 | LABORATORY | | - 1.20 U/mL Dalteparin, LMWH: 0.70 - 1.20 U/mL | SERVICES, CORE | | Tinzaparin, LMWH: Therapeutic range not established. | | | Preliminary studies suggest range | | | similar to dalteparin. Clinical | | | correlation required. | | | Heparin levels may be unreliable for: | | | Total bilirubin >6.6mg/dL | | | Triglycerides >360 mg/dL | | | or Moderate to Gross Hemolysis | | + + + + + + + + | Performing | Address | City/State/Zipcode | Phone Number | | Organization | | | | + + + + + | [facility] | [address] | [place] [address] | | | TANIA, TOI | [address] | | | + + + + + CBC (12/02/2012 2:59 AM PST) + + + + + + | Component | Value | Ref Range | Performed | Pathologist | | | | | At | Signature | + + + + + + | WBC COUNT | 12.3 (H) | 4.4 - 11.0 K/cu | [facility] | | | | | mm | LABORATORY | | | | | | SERVICES, | | | | | | CORE | | + + + + + + | RED CELL | 2.74 (L) | 4.50 - 5.90 | [facility] | | | COUNT | | M/cu mm | LABORATORY | | | | | | SERVICES, | | | | | | CORE | | + + + + + + | HEMOGLOBIN | 8.9 (L) | 13.5 - 17.5 | [facility] | | | | | g/dL | LABORATORY | | | | | | SERVICES, | | | | | | CORE | | + + + + + + | HEMATOCRIT | 25.6 (L) | 41.0 - 53.0 % | [facility] | | | | | | LABORATORY | | | | | | SERVICES, | | | | | | CORE | | + + + + + + | MCV | 93.4 | 80.0 - 96.0 fL | [facility] | | | | | | LABORATORY | | | | | | SERVICES, | | | | | | CORE | | + + + + + + | MCHC | 34.6 | 33.4 - 35.5 | [facility] | | | | | g/dL | LABORATORY | | | | | | SERVICES, | | | | | | CORE | | + + + + + + | RDW | 14.6 | 11.5 - 15.0 % | [facility] | | | | | | LABORATORY | | | | | | SERVICES, | | | | | | CORE | | + + + + + + | PLATELET | 72 (L) | 150 - 400 K/cu | [facility] [...] | + + + + + | [facility] | [address] | [place] [address] | | | SERVICES, CORE | [address] | | | + + + + + RENAL FUNCTION SET (NA,K,CL,CO2,BUN,CREAT,GLUC,CA,PHOS,ALB ) (12/02/2012 2:59 AM PST) + + + + + + | Component | Value | Ref Range | Performed | Pathologist | | | | | At | Signature | + + + + + + | GLUCOSE, | 150 (H) | 60 - 99 mg/dL | [...] + + + + | CREATININE | 2.05 (H) | 0.70 - 1.30 | [facility] | | | PLASMA | | mg/dL | LABORATORY | | | (LAB) | | | SERVICES, | | | | | | CORE | | + + + + + + | SODIUM, | 139 | 136 - 145 | [facility] | [...] + + + + | CALCIUM, | 7.9 (L) | 8.6 - 10.2 | [facility] | | | PLASMA | | mg/dL | LABORATORY | | | (LAB) | | | SERVICES, | | | | | | CORE | | + + + + + + | ALBUMIN, | 2.5 (L) | 3.5 - 4.7 g/dL | [facility] | | | PLASMA | | | LABORATORY | | | (LAB) | | | SERVICES, | | | | | | CORE | | + + + + + + | PHOSPHORUS, | 2.9 | 2.4 - 4.7 mg/dL | [facility] | | | PLASMA [...] + + + | ANION GAP | 10 | 4 - 11 mmol/L | [facility] [...] + | [facility] | [address] | [place] [address] | | | SERVICES, CORE | [address] | | | + + + + + INR (12/02/2012 2:59 AM PST) + + + + + + | Component | Value | Ref Range | Performed | Pathologist | | | | | At | Signature | + + + + + + | INR | 1.87 (H) | 0.90 - 1.20 INR | [...] | + + + + + | [facility] | [address] | [place] [address] | | | SERVICES, TOI | [address] | | | + + + + + MAGNESIUM, PLASMA (12/02/2012 2:59 AM PST) + +-------+ + + + | Component | Value | Ref Range | Performed | Pathologist | | | | | At | Signature | + +-------+ + + + | MAGNESIUM,P | 2.1 | 1.8 - 2.5 mg/dL | [facility] [...] | + + + + + | [facility] | [address] | [place] [address] | | | SERVICES, CORE | [address] | | | + + + + + CAPILLARY BLOOD GLUCOSE (NO CHG), POC (12/01/2012 11:05 PM PST) + +---------+ + + + | Component | Value | Ref Range | Performed | Pathologist | | | | | At | Signature | + +---------+ + + + | BLOOD | 252 (H) | 60 - 99 mg/dL | [facility] - | | | GLUCOSE, | | [...] + | [facility] | [address] | [place], [place] | | | [facility] | [address] | [address] | | | TESTS | | | | + + + + + CAPILLARY BLOOD GLUCOSE (NO CHG), POC (12/01/2012 8:23 PM PST) + +---------+ + + + | Component | Value | Ref Range | Performed | Pathologist | | | | | At | Signature | + +---------+ + + + | BLOOD | 156 (H) | 60 - 99 mg/dL | [...] + + + + | [facility] | [address] | [place], [place] | | | [facility] | [address] | [address] | | | TESTS | | | | + + + + + HEPARIN, EITHER STANDARD / LMW, BLOOD (12/01/2012 8:06 PM PST) + +-------+ + + + | Component | Value | Ref Range | Performed | Pathologist | | | | | At | Signature | + +-------+ + + + | HEPARIN, | <0.10 | U/mL | [facility] | | | STD LMW | | | LABORATORY | | | | | | SERVICES, | | | | | | CORE | | + +-------+ + + + + + | Specimen | + + | Blood - Blood | + + + + + | Narrative | Performed At | + + + | Heparin, Either STD/LMW - Therapeutic Ranges: Heparin, | [facility] | | Unfractionated: 0.35 - 0.70 U/mL Enoxaparin, LMWH: 0.70 | LABORATORY | | - 1.20 U/mL Dalteparin, LMWH: 0.70 - 1.20 U/mL | SERVICES, CORE | | Tinzaparin, LMWH: Therapeutic range not established. | | | Preliminary studies suggest range | | | similar to dalteparin. Clinical | | | correlation required. | | | Heparin levels may be unreliable for: | | | Total bilirubin >6.6mg/dL | | | Triglycerides >360 mg/dL | | | or Moderate to Gross Hemolysis | | + + + + + + + + | Performing | Address | City/State/Zipcode | Phone Number | | Organization | | | | + + + + + | [facility] | [address] | [place] [address] | | | TOI MARIN | [address] | | | + + + + + CAPILLARY BLOOD GLUCOSE (NO CHG), POC (12/01/2012 6:59 PM PST) + +---------+ + + + | Component | Value | Ref Range | Performed | Pathologist | | | | | At | Signature | + +---------+ + + + | BLOOD | 120 (H) | 60 - 99 mg/dL | [facility] - | | | GLUCOSE, | | [...] + + + + | [facility] | [address] | [place], [place] | | | [facility] | [facility] | [address] | | | TESTS | | | | + + + + + CAPILLARY BLOOD GLUCOSE (NO CHG), POC (12/01/2012 6:07 PM PST) + +---------+ + + + | Component | Value | Ref Range | Performed | Pathologist | | | | | At | Signature | + +---------+ + + + | BLOOD | 147 (H) | 60 - 99 mg/dL | [...] + | [facility] | [address] | [place], [place] | | | [facility] | [address] | [address] | | | TESTS | | | | + + + + + CAPILLARY BLOOD GLUCOSE (NO CHG), POC (12/01/2012 5:00 PM PST) + +---------+ + + + | Component | Value | Ref Range | Performed | Pathologist | | | | | At | Signature | + +---------+ + + + | BLOOD | 202 (H) | 60 - 99 mg/dL | [...] + + + + | [facility] | [address] | [place], [place] | | | [place] | [address] | [address] | | | TESTS | | | | + + + + + CAPILLARY BLOOD GLUCOSE (NO CHG), POC (12/01/2012 3:04 PM PST) + +---------+ + + + | Component | Value | Ref Range | Performed | Pathologist | | | | | At | Signature | + +---------+ + + + | BLOOD | 171 (H) | 60 - 99 mg/dL | [facility] - | | | GLUCOSE, | | | [facility] | | | POC | | | [facility] | | | | | | [...] | [facility] | [address] | [place], [place] | | | [facility] | [address] | [address] | | | TESTS | | | | + + + + + HEPARIN, EITHER STANDARD / LMW, BLOOD (12/01/2012 1:32 PM PST) + +-------+ + + + | Component | Value | Ref Range | Performed | Pathologist | | | | | At | Signature | + +-------+ + + + | HEPARIN, | <0.10 | U/mL | [facility] | | | STD LMW | | | LABORATORY | | | | | | SERVICES, | | | | | | CORE | | + +-------+ + + + + + | Specimen | + + | Blood - Blood | + + + + + | Narrative | Performed At | + + + | Heparin, Either STD/LMW - Therapeutic Ranges: Heparin, | [facility] | | Unfractionated: 0.35 - 0.70 U/mL Enoxaparin, LMWH: 0.70 | LABORATORY | | - 1.20 U/mL Dalteparin, LMWH: 0.70 - 1.20 U/mL | SERVICES, CORE | | Tinzaparin, LMWH: Therapeutic range not established. | | | Preliminary studies suggest range | | | similar to dalteparin. Clinical | | | correlation required. | | | Heparin levels may be unreliable for: | | | Total bilirubin >6.6mg/dL | | | Triglycerides >360 mg/dL | | | or Moderate to Gross Hemolysis | | + + + + + + + + | Performing | Address | City/State/Zipcode | Phone Number | | Organization | | | | + + + + + | [facility] | [address] | [place] [address] | | | SERVICES, CORE | [address] | | | + + + + + POTASSIUM, PLASMA (12/01/2012 1:32 PM PST) + +---------+ + + + | Component | Value | Ref Range | Performed | Pathologist | | | | | At | Signature | + +---------+ + + + | POTASSIUM, | 4.4 | 3.4 - 5.0 | [facility] | | | PLASMA | | mmol/L | LABORATORY | | | (LAB) | | | SERVICES, | | | | | | CORE | | + +---------+ + + + | POTASSIUM | No [...] + + | [facility] | [address] | [place] [address] | | | SERVICES, CORE | [address] | | | + + + + + CAPILLARY BLOOD GLUCOSE (NO CHG), POC (12/01/2012 1:30 PM PST) + +---------+ + + + | Component | Value | Ref Range | Performed | Pathologist | | | | | At | Signature | + +---------+ + + + | BLOOD | 119 (H) | 60 - 99 mg/dL | [...] + + + + | [facility] | [address] | [place], [place] | | | [facility] | [address] | [address] | | | TESTS | | | | + + + + + CAPILLARY BLOOD GLUCOSE (NO CHG), POC (12/01/2012 11:12 AM PST) + +---------+ + + + | Component | Value | Ref Range | Performed | Pathologist | | | | | At | Signature | + +---------+ + + + | BLOOD | 155 (H) | 60 - 99 mg/dL | [facility] | [facility], | | | [facility] | | | POC | | | [facility] | | | | | | [...] + | [facility] | [address] | [place], [place] | | | [facility] | [address] | [address] | | | TESTS | | | | + + + + + CAPILLARY BLOOD GLUCOSE (NO CHG), POC (12/01/2012 9:14 AM PST) + +---------+ + + + | Component | Value | Ref Range | Performed | Pathologist | | | | | At | Signature | + +---------+ + + + | BLOOD | 209 (H) | 60 - 99 mg/dL | [...] + + + + | [facility] | [address] | [place], [place] | | | [facility] | [address] | [address] | | | TESTS | | | | + + + + + CAPILLARY BLOOD GLUCOSE (NO CHG), POC (12/01/2012 8:08 AM PST) + +---------+ + + + | Component | Value | Ref Range | Performed | Pathologist | | | | | At | Signature | + +---------+ + + + | BLOOD | 179 (H) | 60 - 99 mg/dL | [...] + + + + | [facility] | [address] | [place], [place] | | | [facility] | [address] | [address] | | | TESTS | | | | + + + + + CAPILLARY BLOOD GLUCOSE (NO CHG), POC (12/01/2012 6:54 AM PST) + +---------+ + + + | Component | Value | Ref Range | Performed | Pathologist | | | | | At | Signature | + +---------+ + + + | BLOOD | 139 (H) | 60 - 99 mg/dL | [facility] | | | [facility], | | | [facility] | | | POC | | | [facility] | | | | | | [...] + | [facility] | [address] | [place], [place] | | | [facility] | [address] | [address] | | | TESTS | | | | + + + + + X-RAY CHEST 1 VIEW (12/01/2012 5:49 AM PST) + + + + + + | Component | Value | Ref Range | Performed | Pathologist | | | | | At | Signature | + + + + + + | CHEST, 1 | EXAM: AP Chest | | | | | VIEW | COMPARISON: 11/30/12. | | | | | | INDICATION: Follow-up | | | | | | cardiac surgery | | | | | | FINDINGS: Cardiac | | | | | | silhouette is enlarged. | | | | | | Sternotomy wires | | | | | | areintact and well | | | | | | aligned. Bilateral | | | | | | pleural effusions and | | | | | | left lowerlobe | | | | | | atelectasis is noted. | | | | | | There is no | | | | | | pneumothorax. | | | | | | IMPRESSION: Cardiomegaly | | | | | | with moderate left | | | | | | lower lobe atelectasis | | | | | | and minimaledema. | | | | | | Attending Radiologists: | | | | | | TINY GARCIA, | | | | | | MDAuthor: TINY Suarez | | | | | | MD RADHA I have | | | | | | personally viewed this | | | | | | procedure/exam, reviewed | | | | | | this report,and made | | | | | | changes to it where | | | | | | appropriate. | | | | | | Final/Electronically | | | | | | signed / TINY Suarez | | | | | | RADHA 12/01/2012 | | | | | | 13:30 PM | | | | + + [...] | | | + +---------+ + + CAPILLARY BLOOD GLUCOSE (NO CHG), POC (12/01/2012 5:41 AM PST) + +---------+ + + + [...] + | [facility] | [address] | [place], [place] | | | [facility] | [facility] | [address] | | | TESTS | | | | + + + + + CAPILLARY BLOOD GLUCOSE (NO CHG), POC (12/01/2012 3:36 AM PST) + +---------+ + + + | Component | Value | Ref Range | Performed | Pathologist | | | | | At | Signature | + +---------+ + + + | BLOOD | 184 (H) | 60 - 99 mg/dL | [...] + + + + | [facility] [facility] | [address] | [place], [place] | | | [facility] | [address] | [address] | | | TESTS | | | | + + + + + CBC AND AUTO DIFF (12/01/2012 1:47 AM PST) + + + + + + | Component | Value | Ref Range | Performed | Pathologist | | | | | At | Signature | + + + + + + | WBC COUNT | 17.1 (H) | 4.4 - 11.0 K/cu | [facility] | | | | | mm | LABORATORY | | | | | | SERVICES, | | | | | | CORE | | + + + + + + | RED CELL | 3.19 (L) | 4.50 - 5.90 | [facility] | | | COUNT | | M/cu mm | LABORATORY | | | | | | SERVICES, | | | | | | CORE | | + + + + + + | HEMOGLOBIN | 10.0 (L) | 13.5 - 17.5 | [facility] | | | | | g/dL | LABORATORY | | | | | | SERVICES, | | | | | | CORE | | + + + + + + | HEMATOCRIT | 29.5 (L) | 41.0 - 53.0 % | [facility] | | | | | | LABORATORY | | | | | | SERVICES, | | | | | | CORE | | + + + + + + | MCV | 92.7 | 80.0 - 96.0 fL | [facility] | | | | | | LABORATORY | | | | | | SERVICES, | | | | | | CORE | | + + + + + + | MCHC | 33.7 | 33.4 - 35.5 | [facility] | | | | | g/dL | LABORATORY | | | | | | SERVICES, | | | | | | CORE | | + + + + + + | RDW | 14.5 | 11.5 - 15.0 % | [facility] | | | | | | LABORATORY | | | | | | SERVICES, | | | | | | CORE | | + + + + + + | PLATELET | 90 (L) | 150 - 400 K/cu | [facility] | | | COUNT | | mm | LABORATORY | | | | | | SERVICES, | | | | | | CORE | | + + + + + + | NEUTROPHIL | 86 (H) | 50 - 70 % | [facility] | | | % | | | LABORATORY | | | | | | SERVICES, | | | | | | CORE | | + + + + + + | LYMPHOCYTE | 6 (L) | 18 - 42 % | [facility] | | | % | | | LABORATORY | | | | | | SERVICES, | | | | | | CORE | | + + + + + + | MONOCYTE % | 8 | 2 - 8 % | [facility] | | | | | | LABORATORY | | | | | | SERVICES, | | | | | | CORE | | + + + + + + | EOS % | 0 (L) | 1 - 3 % | [facility] | | | | | | LABORATORY | | | | | | SERVICES, | | | | | | CORE | | + + + + + + | BASO % | 0 | 0 - 2 % | [facility] | | | | | | LABORATORY | | | | | | SERVICES, | | | | | | CORE | | + + + + + + | NEUTROPHIL | 14.6 (H) | 1.8 - 7.7 K/cu | [facility] | | | # | | mm | LABORATORY | | | | | | SERVICES, | | | | | | CORE | | + + + + + + | LYMPHOCYTE | 1.1 | 1.0 - 4.8 K/cu | [facility] | | | # | | mm | LABORATORY | | | | | | SERVICES, | | | | | | CORE | | + + + + + + | MONOCYTE # | 1.4 (H) | 0.0 - 0.8 K/cu | [facility] | | | | | mm | LABORATORY | | | | | | SERVICES, | | | | | | CORE | | + + + + + + | EOS # | 0.0 | 0.0 - 0.5 K/cu | [facility] | | | | | mm | LABORATORY | | | | | | SERVICES, | | | | | | CORE | | + + + + + + | BASO # | [...] + + | [facility] | [address] | [place] [address] | | | SERVICES, CORE | [address] | | | + + + + + MAGNESIUM, PLASMA (12/01/2012 1:47 AM PST) + +-------+ + + + | Component | Value | Ref Range | Performed | Pathologist | | | | | At | Signature | + +-------+ + + + | MAGNESIUM,P | 2.3 | 1.8 - 2.5 mg/dL | [facility] [...] | + + + + + | [facility] | [address] | [place] [address] | | | SERVICES, CORE | [address] | | | + + + + + RENAL FUNCTION SET (NA,K,CL,CO2,BUN,CREAT,GLUC,CA,PHOS,ALB ) (12/01/2012 1:47 AM PST) + + + + + [...] + + + + | CREATININE | 1.98 (H) | 0.70 - 1.30 | [facility] | | | PLASMA | | mg/dL | LABORATORY | | | (LAB) | | | SERVICES, | | | | | | CORE | | + + + + + + | SODIUM, | 141 | 136 - 145 | [facility] | [...] + + + + | CALCIUM, | 8.0 (L) | 8.6 - 10.2 | [facility] | | | PLASMA | | mg/dL | LABORATORY | | | (LAB) | | | SERVICES, | | | | | | CORE | | + + + + + + | ALBUMIN, | 3.1 (L) | 3.5 - 4.7 g/dL | [facility] | | | PLASMA | | | LABORATORY | | | (LAB) | | | SERVICES, | | | | | | CORE | | + + + + + + | PHOSPHORUS, | 4.1 | 2.4 - 4.7 mg/dL | [facility] | | | PLASMA [...] + + + | ANION GAP | 11 | 4 - 11 mmol/L | [facility] [...] + | [facility] | [address] | [place] [address] | | | SERVICES, CORE | [address] | | | + + + + + LACTIC ACID (12/01/2012 1:47 AM PST) + +-------+ + + + | Component | Value | Ref Range | Performed | Pathologist | | | | | At | Signature | + +-------+ + + + | LACTATE | 2.0 | mmol/L | [facility] | | | | | | LABORATORY | | | | | | SERVICES, | | | | | | CORE | | + +-------+ + + + + + | Specimen | + + | Blood - Blood | + + + + + | Narrative | Performed At | + + + | Reference Range: Venous blood: 0.5 - 2.2 mmol/L | [facility] | | Arterial blood: 0.5 - 1.6 mmol/L | LABORATORY | | | SERVICES, CORE | + + + + + + + + | Performing | Address | City/State/Zipcode | Phone Number | | Organization | | | | + + + + + | [facility] | [address] | [place] [address] | | | SERVICES, TOI | [address] | | | + + + + + HEPARIN, EITHER STANDARD / LMW, BLOOD (12/01/2012 1:47 AM PST) + +-------+ + + + | Component | Value | Ref Range | Performed | Pathologist | | | | | At | Signature | + +-------+ + + + | HEPARIN, | <0.10 | U/mL | [facility] | | | STD LMW | | | LABORATORY | | | | | | SERVICES, | | | | | | CORE | | + +-------+ + + + + + | Specimen | + + | Blood - Blood | + + + + + | Narrative | Performed At | + + + | Heparin, Either STD/LMW - Therapeutic Ranges: Heparin, | [facility] | | Unfractionated: 0.35 - 0.70 U/mL Enoxaparin, LMWH: 0.70 | LABORATORY | | - 1.20 U/mL Dalteparin, LMWH: 0.70 - 1.20 U/mL | SERVICES, CORE | | Tinzaparin, LMWH: Therapeutic range not established. | | | Preliminary studies suggest range | | | similar to dalteparin. Clinical | | | correlation required. | | | Heparin levels may be unreliable for: | | | Total bilirubin >6.6mg/dL | | | Triglycerides >360 mg/dL | | | or Moderate to Gross Hemolysis | | + + + + + + + + | Performing | Address | City/State[facility] | Phone Number | | Organization | | | | + + + + + | [facility] | [address] | [place] [address] | | | TANIA, CORE | [address] | | | + + + + + CAPILLARY BLOOD GLUCOSE (NO CHG), POC (12/01/2012 1:45 AM PST) + +---------+ + + + | Component | Value | Ref Range | Performed | Pathologist | | | | | At | Signature | + +---------+ + + + | BLOOD | 134 (H) | 60 - 99 mg/dL | [...] + + + + | [facility] | [address] | [place], [place] | | | [facility] | [address] | [address] | | | TESTS | | | | + + + + + CAPILLARY BLOOD GLUCOSE (NO CHG), POC (12/01/2012 12:20 AM PST) + +---------+ + + + | Component | Value | Ref Range | Performed | Pathologist | | | | | At | Signature | + +---------+ + + + | BLOOD | 144 (H) | 60 - 99 mg/dL | [...] + | [facility] | [address] | [place], [place] | | | [facility] | [address] | [address] | | | TESTS | | | | + + + + + CAPILLARY BLOOD GLUCOSE (NO CHG), POC (11/30/2012 11:25 PM PST) + +---------+ + + + | Component | Value | Ref Range | Performed | Pathologist | | | | | At | Signature | + +---------+ + + + | BLOOD | 178 (H) | 60 - 99 mg/dL | [...] + + + + | [facility] | [address] | [place], [place] | | | [facility] | [address] | [address] | | | TESTS | | | | + + + + + RAINBOW HOLD TUBE - GREEN TOP (11/30/2012 11:01 PM PST) + + | Specimen | + + | Blood - Blood | + + + + + + + | Performing | Address | City/State/Zipcode | Phone Number | | Organization | | | | + + + + + | [facility] | [address] | [place] [address] | | | SERVICES, CORE | [address] | | | + + + + + POTASSIUM, WHOLE BLOOD (11/30/2012 10:51 PM PST) + +-------+ + + + | Component | Value | Ref Range | Performed | Pathologist | | | | | At | Signature | + +-------+ + + + | POTASSIUM,W | 4.3 | 3.4 - 5.0 | [facility] | | | HOLE BLD | | mmol/L | LABORATORY | | | | | [...] + | [facility] | [address] | [place] [address] | | | SERVICES, CORE | [address] | | | + + + + + LACTIC ACID (11/30/2012 10:51 PM PST) + +-------+ + + + | Component | Value | Ref Range | Performed | Pathologist | | | | | At | Signature | + +-------+ + + + | LACTATE | 2.7 | mmol/L | [facility] | | | | | | LABORATORY | | | | | | SERVICES, | | | | | | CORE | | + +-------+ + + + + + | Specimen | + + | Blood - Blood | + + + + + | Narrative | Performed At | + + + | Reference Range: Venous blood: 0.5 - 2.2 mmol/L | [facility] | | Arterial blood: 0.5 - 1.6 mmol/L | LABORATORY | | | TOI MARIN | + + + + + + + + | Performing | Address | City/State/Zipcode | Phone Number | | Organization | | | | + + + + + | [facility] | [address] | [place] [address] | | | SERVICES, TOI | [address] | | | + + + + + CAPILLARY BLOOD GLUCOSE (NO CHG), POC (11/30/2012 10:47 PM PST) + +---------+ + + + | Component | Value | Ref Range | Performed | Pathologist | | | | | At | Signature | + +---------+ + + + | BLOOD | 173 (H) | 60 - 99 mg/dL | [...] + + + + | [facility] | [address] | [place], [place] | | | [facility] | [facility] | [address] | | | TESTS | | | | + + + + + CAPILLARY BLOOD GLUCOSE (NO CHG), POC (11/30/2012 9:43 PM PST) + +---------+ + + + | Component | Value | Ref Range | Performed | Pathologist | | | | | At | Signature | + +---------+ + + + | BLOOD | 157 (H) | 60 - 99 mg/dL | [facility] - | | | GLUCOSE, | | [...] + + + + | [facility] | [address] | [place], [place] | | | [facility] | [address] | [address] | | | TESTS | | | | + + + + + CAPILLARY BLOOD GLUCOSE (NO CHG), POC (11/30/2012 8:14 PM PST) + +---------+ + + + | Component | Value | Ref Range | Performed | Pathologist | | | | | At | Signature | + +---------+ + + + | BLOOD | 121 (H) | 60 - 99 [...] + | [facility] | [address] | [place], [place] | | | [facility] | [facility] | [address] | | | TESTS | | | | + + + + + CAPILLARY BLOOD GLUCOSE (NO CHG), POC (11/30/2012 6:37 PM PST) + +---------+ + + + | Component | Value | Ref Range | Performed | Pathologist | | | | | At | Signature | + +---------+ + + + | BLOOD | 150 (H) | 60 - 99 mg/dL | [...] + + + + | [facility] | [address] | [place], [place] | | | [facility] | [facility] | [address] | | | TESTS | | | | + + + + + CAPILLARY BLOOD GLUCOSE (NO CHG), POC (11/30/2012 4:09 PM PST) + +---------+ + + + | Component | Value | Ref Range | Performed | Pathologist | | | | | At | Signature | + +---------+ + + + | BLOOD | 147 (H) | 60 - 99 mg/dL | [facility] - | | | GLUCOSE, | | [...] | [facility] | [address] | [place], [place] | | | [facility] | [address] | [address] | | | TESTS | | | | + + + + + CAPILLARY BLOOD GLUCOSE (NO CHG), POC (11/30/2012 3:02 PM PST) + +---------+ + + + | Component | Value | Ref Range | Performed | Pathologist | | | | | At | Signature | + +---------+ + + + | BLOOD | 145 (H) | 60 - 99 mg/dL | [...] + | [facility] | [address] | [place], [place] | | | [facility] | [facility] | [address] | | | TESTS | | | | + + + + + CAPILLARY BLOOD GLUCOSE (NO CHG), POC (11/30/2012 2:20 PM PST) + +---------+ + + + | Component | Value | Ref Range | Performed | Pathologist | | | | | At | Signature | + +---------+ + + + | BLOOD | 146 (H) | 60 - 99 [...] | [facility] | [address] | [place], [place] | | | [facility] | [facility] | [address] | | | TESTS | | | | + + + + + CBC (11/30/2012 11:51 AM PST) + + + + + + | Component | Value | Ref Range | Performed | Pathologist | | | | | At | Signature | + + + + + + | WBC COUNT | 21.2 (H) | 4.4 - 11.0 K/cu | [facility] | | | | | mm | LABORATORY | | | | | | SERVICES, | | | | | | CORE | | + + + + + + | RED CELL | 3.45 (L) | 4.50 - 5.90 | [facility] | | | COUNT | | M/cu mm | LABORATORY | | | | | | SERVICES, | | | | | | CORE | | + + + + + + | HEMOGLOBIN | 10.9 (L) | 13.5 - 17.5 | [facility] | | | | | g/dL | LABORATORY | | | | | | SERVICES, | | | | | | CORE | | + + + + + + | HEMATOCRIT | 32.6 (L) | 41.0 - 53.0 % | [facility] | | | | | | LABORATORY | | | | | | SERVICES, | | | | | | CORE | | + + + + + + | MCV | 94.3 | 80.0 - 96.0 fL | [facility] | | | | | | LABORATORY | | | | | | SERVICES, | | | | | | CORE | | + + + + + + | MCHC | 33.5 | 33.4 - 35.5 | [facility] | | | | | g/dL | LABORATORY | | | | | | SERVICES, | | | | | | CORE | | + + + + + + | RDW | 14.3 | 11.5 - 15.0 % | [facility] | | | | | | LABORATORY | | | | | | SERVICES, | | | | | | CORE | | + + + + + + | PLATELET | 132 (L) | 150 - 400 K/cu | [facility] [...] | + + + + + | [facility] | [address] | [place] [address] | | | SERVICES, CORE | [address] | | | + + + + + LACTIC ACID (11/30/2012 11:51 AM PST) + +-------+ + + + | Component | Value | Ref Range | Performed | Pathologist | | | | | At | Signature | + +-------+ + + + | LACTATE | 4.4 | mmol/L | [facility] | | | | | | LABORATORY | | | | | | SERVICES, | | | | | | CORE | | + +-------+ + + + + + | Specimen | + + | Blood - Blood | + + + + + | Narrative | Performed At | + + + | Reference Range: Venous blood: 0.5 - 2.2 mmol/L | [facility] | | Arterial blood: 0.5 - 1.6 mmol/L | LABORATORY | | | SERVICES, TOI | + + + + + + + + | Performing | Address | City/State/Zipcode | Phone Number | | Organization | | | | + + + + + | [facility] | [address] | [place] [address] | | | SERVICES, TOI | [address] | | | + + + + + RENAL FUNCTION SET (NA,K,CL,CO2,BUN,CREAT,GLUC,CA,PHOS,ALB ) (11/30/2012 11:51 AM PST) + + + + + + | Component | Value | Ref Range | Performed | Pathologist | | | | | At | Signature | + + + + + + | GLUCOSE, | 162 (H) | 60 - 99 mg/dL | [facility] | | | PLASMA | | | LABORATORY | | | (LAB) | | | SERVICES, | | | | | | CORE | | + + + + + + | BUN, PLASMA | 30 (H) | 6 - 20 mg/dL | [facility] | | | (LAB) | | | LABORATORY | | | | | | SERVICES, | | | | | | CORE | | + + + + + + | CREATININE | 2.14 (H) | 0.70 - 1.30 | [facility] | | | PLASMA | | mg/dL | LABORATORY | | | (LAB) | | | SERVICES, | | | | | | CORE | | + + + + + + | SODIUM, | 145 | 136 - 145 | [facility] | | | PLASMA | | mmol/L | LABORATORY | | | (LAB) | | | SERVICES, | | | | | | CORE | | + + + + + + | POTASSIUM, | 4.5 | 3.4 - 5.0 | [facility] | | | PLASMA | | mmol/L | LABORATORY | | | (LAB) | | | SERVICES, | | | | | | CORE | | + + + + + + | CHLORIDE, | 111 (H) | 97 - 108 mmol/L | [facility] [...] + + + + | ALBUMIN, | 3.0 (L) | 3.5 - 4.7 g/dL | [facility] | | | PLASMA | | | LABORATORY | | | (LAB) | | | SERVICES, | | | | | | CORE | | + + + + + + | PHOSPHORUS, | 4.2 | 2.4 - 4.7 mg/dL | [facility] | | | PLASMA [...] + + + + | ANION | 15 (H) | 4 - 11 mmol/L | [...] | + + + + + | [facility] | [address] | [place] [address] | | | TOI MARIN | [address] | | | + + + + + CAPILLARY BLOOD GLUCOSE (NO CHG), POC (11/30/2012 11:49 AM PST) + +---------+ + + + | Component | Value | Ref Range | Performed | Pathologist | | | | | At | Signature | + +---------+ + + + | BLOOD | 191 (H) | 60 - 99 mg/dL | [facility] - | | | GLUCOSE, | | [...] + | [facility] | [address] | [place], [place] | | | [facility] | [address] | [address] | | | TESTS | | | | + + + + + X-RAY PORTABLE CHEST 1 VIEW (11/30/2012 11:23 AM PST) + + + + + + | Component | Value | Ref Range | Performed | Pathologist | | | | | At | Signature | + + + + + + | X-RAY | STUDY: DC CHEST 1 VIEW | | | | | PORTABLE | 11/30/12 11:23:00 | | | | | CHEST 1 | INDICATION: Evaluate | | | | | VIEW | pleural effusion status | | | | | | post open heart surgery | | | | | | COMPARISON: Same day | | | | | | FINDINGS: PA catheter, | | | | | | sternotomy wires and | | | | | | drainage tubes are in | | | | | | place.Cardiomediastinal | | | | | | silhouette is unchanged. | | | | | | Bilateral lower | | | | | | lobe,left greater than | | | | | | right, atelectasis | | | | | | persists. There are | | | | | | low lungvolumes. No | | | | | | pneumothorax is present. | | | | | | Pulmonary | | | | | | vascularindistinctness | | | | | | is relatively unchanged. | | | | | | IMPRESSION: Stable left | | | | | | than right bibasilar | | | | | | atelectasis and | | | | | | pulmonary edema. | | | | | | Attending Radiologists: | | | | | | SHAY FABIAN, MDAuthor: | | | | | | HEIDI PALMER MD I | | | | | | have personally viewed | | | | | | this procedure/exam, | | | | | | reviewed this report,and | | | | | | made changes to it | | | | | | where appropriate. | | | | | | Final/Electronically | | | | | | signed / SHAY | | | | | | RUI 11/30/2012 15:17 PM | | | | | | | [...] | | | + +---------+ + + CAPILLARY BLOOD GLUCOSE (NO CHG), POC (11/30/2012 10:30 AM PST) + +---------+ + + + | Component | Value | Ref Range | Performed | Pathologist | | | | | At | Signature | + +---------+ + + + | BLOOD | 163 (H) | 60 - 99 mg/dL | [...] + | [facility] | [address] | [place], [place] | | | [facility] | [address] | [address] | | | TESTS | | | | + + + + + CULTURE, URINE BACTI (11/30/2012 8:39 AM PST) + + + + + + | Component | Value | Ref Range | Performed | Pathologist | | | | | At | Signature | + + + + + + | SPECIMEN | Urine | | [facility] | | | TYPE | | | [facility] | | | | | | [place] | | + + + + + + | SOURCE BODY | Urine | | [facility] | | | SITE | | | [facility] - | | | | | | [place] | | + + + + + + | CULTURE | C UrineSource: Urine | | [facility] | | | RESULT | | | [facility] - | | | | Final CULTURE | | [place] | | | | RESULT:No growth (<1000 | | | | | | col/ml) after 24 hours | | | | + + + + + + + + | Specimen | + + | Urine - Urine | + + + + + + + | Performing | Address | City/State/Zipcode | Phone Number | | Organization | | | | + + + + + | [facility] | [address] | [place] [address] | | [facility] | | | | + + + + + CULTURE, BLOOD BACTI & YEAST BRIDGETTE (11/30/2012 8:39 AM PST) + + + + + + | Component | Value | Ref Range | Performed | Pathologist | | | | | At | Signature | + + + + + + | SPECIMEN | Blood | | [facility] | | | TYPE | | | LABORATORY | | | | | | SERVICES, | | | | | | CORE | | + + + + + + | SOURCE BODY | Antecubital - left | | [facility] | | | SITE | | | LABORATORY | | | | | | SERVICES, | | | | | | CORE | | + + + + + + | BLOOD | Final Report:No Bacteria | Final Report:No | [facility] | | | CULTURE | or Yeast isolated at 5 | Bacteria or | LABORATORY | | | [facility] | days.Comment: This is a | Yeast isolated | SERVICES, | | | | corrected result. | at 5 days., | CORE | | | | Previous result was No | Sent for | | | | | growth to date. on | Subculture, No | | | | | 12/02/2012t 0020. | growth to date. | | | + + + + + + + + | Specimen | + + | Blood - Antecubital | | - left | + + + + + + + | Performing | Address | City/State/Zipcode | Phone Number | | Organization | | | | + + + + + | [facility] | [address] | [place] [address] | | | SERVICES, TOI | [address] | | | + + + + + SAGAR TREVINO (11/30/2012 8:39 AM PST) + + + + + [...] + + + + | APPEARANCE | Mod. Cloudy | (none) | [facility] | | | [...] + + + + | BLOOD | Moderate (A) | Negative | [facility] | | | [...] + + + + | LEUKOCYTE | Large (A) | Negative | [facility] | | | ESTERASE | | | LABORATORY | | | | | | SERVICES, | | | | | | CORE | | + + + + + + | SPECIFIC | 1.018 | 1.005 - 1.030 | [facility] | | | GRAVITY | | | [...] | + + + + + | [facility] | [address] | [place] [address] | | | SERVICES, CORE | [address] | | | + + + + + URINE, MICROSCOPIC EXAM (11/30/2012 8:39 AM PST) + +---------+ + + + | Component | Value | Ref Range | Performed | Pathologist | | | | | At | Signature | + +---------+ + + + | RED CELLS | 21 (H) | 0 - 3 /hpf | [facility] | | | | | | LABORATORY | | | | | | SERVICES, | | | | | | CORE | | + +---------+ + + + | WHITE CELLS | 103 (H) | 0 - 5 /hpf | [facility] | | | | | | LABORATORY | | | | | | SERVICES, | | | | | | CORE | | + +---------+ + + + | WBC CLUMPS | Present | (none) | [facility] | | | | | | LABORATORY | | | | | | SERVICES, | | | | | | CORE | | + +---------+ + + + | BACTERIA | Few (A) | None /hpf | [facility] | | | | | | LABORATORY | | | | | | SERVICES, | | | | | | CORE | | + +---------+ + + + | YEAST (LAB) | None | None /hpf | [facility] | | | | | | LABORATORY | | | | | | SERVICES, | | | | | | CORE | | + +---------+ + + + | SQUAMOUS | Few (A) | None /hpf | [facility] | | | EPITHELIAL | | | LABORATORY | | | | | | SERVICES, | | | | | | CORE | | + +---------+ + + + | MUCOUS | Few (A) | None /hpf | [facility] | | | | | | LABORATORY | | | | | | SERVICES, | | | | | | CORE | | + +---------+ + + + | TRICHOMONAS | None | None /hpf | [facility] | | | | | | LABORATORY | | | | | | SERVICES, | | | | | | CORE | | + +---------+ + + + | NON-SQUAMOU | Few (A) | None /hpf | [facility] | | | S EPITH | | | LABORATORY | | | | | | SERVICES, | | | | | | CORE | | + +---------+ + + + | HYALINE | 43 (H) | 0 - 2 /lpf | [facility] | | | CASTS | | | LABORATORY | | | | | | SERVICES, | | | | | | CORE | | + +---------+ + + + | GRANULAR | 0 | 0 - 2 /lpf | [facility] | | | CASTS | | | LABORATORY | | | | | | SERVICES, | | | | | | CORE | | + +---------+ + + + | CELLULAR | 0 | <=0 /lpf | [facility] | | | CASTS | | | LABORATORY | | | | | | SERVICES, | | | | | | CORE | | + +---------+ + + + | TRIPLE P04 | None | None /hpf | [facility] | | | CR[facility] | | | LABORATORY | | | | | | SERVICES, | | | | | | CORE | | + +---------+ + + + | CALCIUM | None | None /hpf | [facility] | | | OXALATE | | | LABORATORY | | | DIONISIO | | | SERVICES, | | | | | | CORE | | + +---------+ + + + | URIC ACID | None | None /hpf | [facility] | | | [facility] | | | LABORATORY | | | | | | SERVICES, | | | | | | CORE | | + +---------+ + + + | AMORPHOUS | None | None /hpf | [facility] | | | [facility] | | | LABORATORY | | | [...] + | [facility] | [address] | [place] [address] | | | SERVICES, [place]I | [address] | | | + + + + + URINE SCREEN FOR CULTURE (11/30/2012 8:39 AM PST) + + + + + + | Component | Value | Ref Range | Performed | Pathologist | | | | | At | Signature | + + + + + + | URINE | Positive (A) | Negative | [facility] | | | SCREEN FOR | | | LABORATORY | | | CULTURE | | | SERVICES, | | | | | | CORE | | + + + + + + + + | Specimen | + + | Urine - Urine | + + + + + | Narrative | Performed At | + + + | Culture Screen Positive, specimen sent for culture. | [facility] | | | LABORATORY | | | TOI [place]IN | + + + + + + + + | Performing | Address | City/State/Zipcode | Phone Number | | Organization | | | | + + + + + | [facility] | [address] | [place] [address] | | | [place], [place] | [address] | | | + + + + + BLOOD CULTURE WORKUP (11/30/2012 8:38 AM PST) + + + + + + | Component | Value | Ref Range | Performed | Pathologist | | | | | At | Signature | + + + + + + | CULTURE | [facility]: | | [place] - | | | RESULT | Blood | | [facility] - | | | | Final CULTURE | | [place] | | | | RESULT:No growth at 5 | | | | | | days | | | | + + + + + + + + | Specimen | + + | Blood - Blood | + + + + + + + | Performing | Address | City/State/Zipcode | Phone Number | | Organization | | | | + + + + + | [facility] | [address] | [place] [address] | | | [place] | | | | + + + + + CULTURE, BLOOD BACTI & YEAST [facility] (11/30/2012 8:38 AM PST) + + + + + + | Component | Value | Ref Range | Performed | Pathologist | | | | | At | Signature | + + + + + + | SPECIMEN | Blood | | [facility] | | | TYPE | | | LABORATORY | | | | | | SERVICES, | | | | | | CORE | | + + + + + + | SOURCE BODY | Antecubital - right | | [facility] | | | SITE | | | LABORATORY | | | | | | SERVICES, | | | | | | CORE | | + + + + + + | BLOOD | Sent for Subculture | Final Report:No | [facility] | | | CULTURE | | Bacteria or | LABORATORY | | | [facility] | | Yeast isolated | SERVICES, | | | | | at 5 days., | CORE | | | | | Sent for | | | | | | Subculture, No | | | | | | growth to date. | | | + + + + + + + + | Specimen | + + | Blood - Antecubital | | - right | + + + + + + + | Performing | Address | City/State/Zipcode | Phone Number | | Organization | | | | + + + + + | [facility] | [address] | [place] [address] | | | SERVICES, CORE | [address] | | | + + + + + CBC AND AUTO DIFF (11/30/2012 8:38 AM PST) + + + + + + | Component | Value | Ref Range | Performed | Pathologist | | | | | At | Signature | + + + + + + | WBC COUNT | 19.2 (H) | 4.4 - 11.0 K/cu | [facility] | | | | | mm | LABORATORY | | | | | | SERVICES, | | | | | | CORE | | + + + + + + | RED CELL | 3.80 (L) | 4.50 - 5.90 | [facility] | | | COUNT | | M/cu mm | LABORATORY | | | | | | SERVICES, | | | | | | CORE | | + + + + + + | HEMOGLOBIN | 11.8 (L) | 13.5 - 17.5 | [facility] | | | | | g/dL | LABORATORY | | | | | | SERVICES, | | | | | | CORE | | + + + + + + | HEMATOCRIT | 35.7 (L) | 41.0 - 53.0 % | [facility] | | | | | | LABORATORY | | | | | | SERVICES, | | | | | | CORE | | + + + + + + | MCV | 94.0 | 80.0 - 96.0 fL | [facility] | | | | | | LABORATORY | | | | | | SERVICES, | | | | | | CORE | | + + + + + + | MCHC | 33.1 (L) | 33.4 - 35.5 | [facility] | | | | | g/dL | LABORATORY | | | | | | SERVICES, | | | | | | CORE | | + + + + + + | RDW | 14.5 | 11.5 - 15.0 % | [facility] | | | | | | LABORATORY | | | | | | SERVICES, | | | | | | CORE | | + + + + + + | PLATELET | 138 (L) | 150 - 400 K/cu | [facility] | | | COUNT | | mm | LABORATORY | | | | | | SERVICES, | | | | | | CORE | | + + + + + + | NEUTROPHIL | 87 (H) | 50 - 70 % | [facility] | | | % | | | LABORATORY | | | | | | SERVICES, | | | | | | CORE | | + + + + + + | LYMPHOCYTE | 3 (L) | 18 - 42 % | [facility] | | | % | | | LABORATORY | | | | | | SERVICES, | | | | | | CORE | | + + + + + + | MONOCYTE % | 9 (H) | 2 - 8 % | [facility] | | | | | | LABORATORY | | | | | | SERVICES, | | | | | | CORE | | + + + + + + | EOS % | 0 (L) | 1 - 3 % | [facility] | | | | | | LABORATORY | | | | | | SERVICES, | | | | | | CORE | | + + + + + + | BASO % | 0 | 0 - 2 % | [facility] | | | | | | LABORATORY | | | | | | SERVICES, | | | | | | CORE | | + + + + + + | NEUTROPHIL | 16.8 (H) | 1.8 - 7.7 K/cu | [facility] | | | # | | mm | LABORATORY | | | | | | SERVICES, | | | | | | CORE | | + + + + + + | LYMPHOCYTE | 0.6 (L) | 1.0 - 4.8 K/cu | [facility] | | | # | | mm | LABORATORY | | | | | | SERVICES, | | | | | | CORE | | + + + + + + | MONOCYTE # | 1.8 (H) | 0.0 - 0.8 K/cu | [facility] | | | | | mm | LABORATORY | | | | | | SERVICES, | | | | | | CORE | | + + + + + + | EOS # | 0.0 | 0.0 - 0.5 K/cu | [facility] | | | | | mm | LABORATORY | | | | | | SERVICES, | | | | | | CORE | | + + + + + + | BASO # | [...] | + + + + + | [facility] | [address] | [place] [address] | | | SERVICES, CORE | [address] | | | + + + + + CAPILLARY BLOOD GLUCOSE (NO CHG), POC (11/30/2012 8:24 AM PST) + +---------+ + + + | Component | Value | Ref Range | Performed | Pathologist | | | | | At | Signature | + +---------+ + + + | BLOOD | 120 (H) | 60 - 99 mg/dL | [...] + + + + | [facility] | [address] | [place], [place] | | | [facility] | [address] | [address] | | | TESTS | | | | + + + + + CAPILLARY BLOOD GLUCOSE (NO CHG), POC (11/30/2012 6:33 AM PST) + +---------+ + + + | Component | Value | Ref Range | Performed | Pathologist | | | | | At | Signature | + +---------+ + + + | BLOOD | 170 (H) | 60 - 99 mg/dL | [...] + + | [facility] | [address] | [place], [place] | | | [facility] | [facility] | [address] | | | TESTS | | | | + + + + + X-RAY CHEST 1 VIEW (11/30/2012 5:57 AM PST) + + + + + + | Component | Value | Ref Range | Performed | Pathologist | | | | | At | Signature | + + + + + + | CHEST, 1 | STUDY: CHEST 1 VIEW | | | | | VIEW | 11/30/12 05:57:00 | | | | | | CLINICAL DATA: Tubes and | | | | | | lines. Status post | | | | | | open heart surgery | | | | | | COMPARISON: Yesterday | | | | | | FINDINGS: The patient | | | | | | has been extubated and | | | | | | the enteric tube has | | | | | | been removed. Right IJ | | | | | | Randle-Jeremi catheter, | | | | | | mediastinal drains and | | | | | | sternotomy | | | | | | wiresunchanged. The | | | | | | cardiac silhouette is | | | | | | stable. There is | | | | | | worseningbilateral lower | | | | | | lobe atelectasis. The | | | | | | lung volumes are low | | | | | | withincreasing vascular | | | | | | indistinctness. There | | | | | | is no pneumothorax. | | | | | | IMPRESSION: Extubation | | | | | | and removal of enteric | | | | | | tube. Low lung volumes | | | | | | with worsening perihilar | | | | | | and bibasilar | | | | | | atelectasisas well as | | | | | | trace hydrostatic | | | | | | pulmonary edema. | | | | | | Attending Radiologists: | | | | | | SHAY FABIAN MDAuthor: | | | | | | SHAY FABIAN MD I | | | | | | have personally viewed | | | | | | this procedure/exam, | | | | | | reviewed this report,and | | | | | | made changes to it | | | | | | where appropriate. | | | | | | Final/Electronically | | | | | | signed / SHAY | | | | | | RUI 11/30/2012 10:35 AM | | | | | | | [...] | | | + +---------+ + + CAPILLARY BLOOD GLUCOSE (NO CHG), POC (11/30/2012 5:03 AM PST) + +---------+ + + + | Component | Value | Ref Range | Performed | Pathologist | | | | | At | Signature | + +---------+ + + + | BLOOD | 164 (H) | 60 - 99 mg/dL | [...] + | [facility] | [address] | [place], [place] | | | [facility] | [address] | [address] | | | TESTS | | | | + + + + + POTASSIUM, PLASMA (11/30/2012 5:01 AM PST) + +---------+ + + + | Component | Value | Ref Range | Performed | Pathologist | | | | | At | Signature | + +---------+ + + + | POTASSIUM, | 4.0 | 3.4 - 5.0 | [facility] | | | PLASMA | | mmol/L | LABORATORY | | | (LAB) | | | SERVICES, | | | | | | CORE | | + +---------+ + + + | POTASSIUM | No [...] | + + + + + | [facility] | [address] | [place] [address] | | | TOI MARIN | [address] | | | + + + + + CAPILLARY BLOOD GLUCOSE (NO CHG), POC (11/30/2012 4:00 AM PST) + +---------+ + + + | Component | Value | Ref Range | Performed | Pathologist | | | | | At | Signature | + +---------+ + + + | BLOOD | 187 (H) | 60 - 99 mg/dL | [facility] - | | | GLUCOSE, | | [...] | [facility] | [address] | [place], [place] | | | [facility] | [address] | [address] | | | TESTS | | | | + + + + + LACTIC ACID (11/30/2012 3:58 AM PST) + +-------+ + + + | Component | Value | Ref Range | Performed | Pathologist | | | | | At | Signature | + +-------+ + + + | LACTATE | 7.6 | mmol/L | [facility] | | | | | | LABORATORY | | | | | | SERVICES, | | | | | | CORE | | + +-------+ + + + + + | Specimen | + + | Blood - Blood | + + + + + | Narrative | Performed At | + + + | Reference Range: Venous blood: 0.5 - 2.2 mmol/L | [facility] | | Arterial blood: 0.5 - 1.6 mmol/L | LABORATORY | | | SERVICES, CORE | + + + + + + + + | Performing | Address | City/State/Zipcode | Phone Number | | Organization | | | | + + + + + | [facility] | [address] | [place] [address] | | | SERVICES, CORE | [address] | | | + + + + + CAPILLARY BLOOD GLUCOSE (NO CHG), POC (11/30/2012 3:00 AM PST) + +---------+ + + + | Component | Value | Ref Range | Performed | Pathologist | | | | | At | Signature | + +---------+ + + + | BLOOD | 191 (H) | 60 - 99 mg/dL | [facility] - | | | GLUCOSE, | | [...] + | [facility] | [address] | [place], [place] | | | [facility] | [address] | [address] | | | TESTS | | | | + + + + + CAPILLARY BLOOD GLUCOSE (NO CHG), POC (11/30/2012 1:52 AM PST) + +---------+ + + + | Component | Value | Ref Range | Performed | Pathologist | | | | | At | Signature | + +---------+ + + + | BLOOD | 202 (H) | 60 - 99 mg/dL | [...] + + + + | [facility] | [address] | [place], [place] | | | [facility] | [address] | [address] | | | TESTS | | | | + + + + + CBC (11/30/2012 1:49 AM PST) + + + + + + | Component | Value | Ref Range | Performed | Pathologist | | | | | At | Signature | + + + + + + | WBC COUNT | 27.1 (H) | 4.4 - 11.0 K/cu | [facility] | | | | | mm | LABORATORY | | | | | | SERVICES, | | | | | | CORE | | + + + + + + | RED CELL | 4.17 (L) | 4.50 - 5.90 | [facility] | | | COUNT | | M/cu mm | LABORATORY | | | | | | SERVICES, | | | | | | CORE | | + + + + + + | HEMOGLOBIN | 13.1 (L) | 13.5 - 17.5 | [facility] | | | | | g/dL | LABORATORY | | | | | | SERVICES, | | | | | | CORE | | + + + + + + | HEMATOCRIT | 38.9 (L) | 41.0 - 53.0 % | [facility] | | | | | | LABORATORY | | | | | | SERVICES, | | | | | | CORE | | + + + + + + | MCV | 93.2 | 80.0 - 96.0 fL | [facility] | | | | | | LABORATORY | | | | | | SERVICES, | | | | | | CORE | | + + + + + + | MCHC | 33.7 | 33.4 - 35.5 | [facility] | | | | | g/dL | LABORATORY | | | | | | SERVICES, | | | | | | CORE | | + + + + + + | RDW | 14.2 | 11.5 - 15.0 % | [facility] | | | | | | LABORATORY | | | | | | SERVICES, | | | | | | CORE | | + + + + + + | PLATELET | 165 | 150 - 400 K/cu | [facility] [...] + | [facility] | [address] | [place] [address] | | | SERVICES, CORE | [address] | | | + + + + + MAGNESIUM, PLASMA (11/30/2012 1:49 AM PST) + +---------+ + + + | Component | Value | Ref Range | Performed | Pathologist | | | | | At | Signature | + +---------+ + + + | MAGNESIUM,P | 3.2 (H) | 1.8 - 2.5 mg/dL | [facility] [...] + + | [facility] | [address] | [place] [address] | | | SERVICES, CORE | [address] | | | + + + + + RENAL FUNCTION SET (NA,K,CL,CO2,BUN,CREAT,GLUC,CA,PHOS,ALB ) (11/30/2012 1:49 AM PST) + + + + + + | Component | Value | Ref Range | Performed | Pathologist | | | | | At | Signature | + + + + + + | GLUCOSE, | 201 (H) | 60 - 99 mg/dL | [facility] | | | PLASMA | | | LABORATORY | | | (LAB) | | | SERVICES, | | | | | | CORE | | + + + + + + | BUN, PLASMA | 33 (H) | 6 - 20 mg/dL | [facility] | | | (LAB) | | | LABORATORY | | | | | | SERVICES, | | | | | | CORE | | + + + + + + | CREATININE | 2.28 (H) | 0.70 - 1.30 | [facility] | | | PLASMA | | mg/dL | LABORATORY | | | (LAB) | | | SERVICES, | | | | | | CORE | | + + + + + + | SODIUM, | 142 | 136 - 145 | [facility] | | | PLASMA | | mmol/L | LABORATORY | | | (LAB) | | | SERVICES, | | | | | | CORE | | + + + + + + | POTASSIUM, | 4.0 | 3.4 - 5.0 | [facility] | | | PLASMA | | mmol/L | LABORATORY | | | (LAB) | | | SERVICES, | | | | | | CORE | | + + + + + + | CHLORIDE, | 109 (H) | 97 - 108 mmol/L | [facility] | | | PLASMA | | | LABORATORY | | | (LAB) | | | SERVICES, | | | | | | CORE | | + + + + + + | TOTAL CO2, | 16 (L) | 21 - 32 mmol/L | [facility] | | | PLASMA | | | LABORATORY | | | (LAB) | | | SERVICES, | | | | | | CORE | | + + + + + + | CALCIUM, | 8.7 | 8.6 - 10.2 | [facility] | | | PLASMA | | mg/dL | LABORATORY | | | (LAB) | | | SERVICES, | | | | | | CORE | | + + + + + + | ALBUMIN, | 4.1 | 3.5 - 4.7 g/dL | [facility] | | | PLASMA | | | LABORATORY | | | (LAB) | | | SERVICES, | | | | | | CORE | | + + + + + + | PHOSPHORUS, | 2.0 (L) | 2.4 - 4.7 mg/dL | [facility] | | | PLASMA [...] + + + | ANION GAP | 17 (H) | 4 - 11 mmol/L | [facility] | | | | | | LABORATORY | | | | | | SERVICES, | | | | | | CORE | | + + + + + + | ANION | 16 (H) | 4 - 11 mmol/L | [...] + + | [facility] | [address] | [place] [address] | | | SERVICES, CORE | [address] | | | + + + + + BLOOD GASES, ARTERIAL - LAB (11/30/2012 1:48 AM PST) + + + + + + | Component | Value | Ref Range | Performed | Pathologist | | | | | At | Signature | + + + + + + | PAT TEMP | 37.0 | Degree C | [facility] | | | ARTERIAL | | | LABORATORY | | | | | | SERVICES, | | | | | | CORE | | + + + + + + | FIO2 | 40% | | [facility] | | | ARTERIAL | | | LABORATORY | | | | | | SERVICES, | | | | | | CORE | | + + + + + + | PH ARTERIAL | 7.31 (L) | 7.37 - 7.44 | [facility] | | | | | | LABORATORY | | | | | | SERVICES, | | | | | | CORE | | + + + + + + | PCO2 | 35 | 32 - 43 mmHg | [facility] | | | ARTERIAL | | | LABORATORY | | | | | | SERVICES, | | | | | | CORE | | + + + + + + | PO2 | 129 (H) | 72 - 104 mmHg | [facility] | | | ARTERIAL | | | LABORATORY | | | | | | SERVICES, | | | | | | CORE | | + + + + + + | HCO3 | 17 (L) | 21 - 28 mmol/L | [facility] | | | ARTERIAL | | | LABORATORY | | | | | | SERVICES, | | | | | | CORE | | + + + + + + | TOTAL CO2 | 18 (L) | 22 - 28 mmol/L | [facility] | | | ARTERIAL | | | LABORATORY | | | | | | SERVICES, | | | | | | CORE | | + + + + + + | BASE EXCESS | -7.9 | | [facility] | | | ARTERIAL | | | LABORATORY | | | | | | SERVICES, | | | | | | CORE | | + + + + + + | O2 SAT, | 98.5 (H) | 92.0 - 98.0 | [facility] | | | ARTERIAL | | | LABORATORY | | | [...] | + + + + + | [facility] | [address] | [place] [address] | | | SERVICES, CORE | [address] | | | + + + + + CAPILLARY BLOOD GLUCOSE (NO CHG), POC (11/30/2012 12:35 AM PST) + +---------+ + + + | Component | Value | Ref Range | Performed | Pathologist | | | | | At | Signature | + +---------+ + + + | BLOOD | 183 (H) | 60 - 99 mg/dL | [...] + + + + | [facility] | [address] | [place], [place] | | | [facility] | [address] | [address] | | | TESTS | | | | + + + + + BLOOD GASES, ARTERIAL - LAB (11/30/2012 12:31 AM PST) + + + + + + | Component | Value | Ref Range | Performed | Pathologist | | | | | At | Signature | + + + + + + | PAT TEMP | 36.6 | Degree C | [facility] | | | ARTERIAL | | | LABORATORY | | | | | | SERVICES, | | | | | | CORE | | + + + + + + | FIO2 | 45% | | [facility] | | | ARTERIAL | | | LABORATORY | | | | | | SERVICES, | | | | | | CORE | | + + + + + + | PH ARTERIAL | 7.33 (L) | 7.37 - 7.44 | [facility] | | | | | | LABORATORY | | | | | | SERVICES, | | | | | | CORE | | + + + + + + | PCO2 | 34 | 32 - 43 mmHg | [facility] | | | ARTERIAL | | | LABORATORY | | | | | | SERVICES, | | | | | | CORE | | + + + + + + | PO2 | 137 (H) | 72 - 104 mmHg | [facility] | | | ARTERIAL | | | LABORATORY | | | | | | SERVICES, | | | | | | CORE | | + + + + + + | HCO3 | 17 (L) | 21 - 28 mmol/L | [facility] | | | ARTERIAL | | | LABORATORY | | | | | | SERVICES, | | | | | | CORE | | + + + + + + | TOTAL CO2 | 18 (L) | 22 - 28 mmol/L | [facility] | | | ARTERIAL | | | LABORATORY | | | | | | SERVICES, | | | | | | CORE | | + + + + + + | BASE EXCESS | -7.5 | | [facility] | | | ARTERIAL | | | LABORATORY | | | | | | SERVICES, | | | | | | CORE | | + + + + + + | O2 SAT, | 98.6 (H) | 92.0 - 98.0 | [facility] | | | ARTERIAL | | | LABORATORY | | | [...] + | [facility] | [address] | [place] [address] | | | SERVICES, CORE | [address] | | | + + + + + TRANSTHORACIC ECHOCARDIOGRAM, ADULT (11/30/2012 12:00 AM PST) + + + | Narrative | Performed At | + + + | | | | | | + + + + + | Procedure Note | + + | Diana Miller - 11/30/2012 12:22 PM PST | + + POTASSIUM, PLASMA (11/29/2012 11:41 PM PST) + +---------+ + + + | Component | Value | Ref Range | Performed | Pathologist | | | | | At | Signature | + +---------+ + + + | POTASSIUM, | 4.0 | 3.4 - 5.0 | [facility] | | | PLASMA | | mmol/L | LABORATORY | | | (LAB) | | | SERVICES, | | | | | | CORE | | + +---------+ + + + | POTASSIUM | No [...] + + | [facility] | [address] [facility] | [place] [address] | | | SERVICES, CORE | [address] | | | + + + + + BLOOD GASES, ARTERIAL - LAB (11/29/2012 11:40 PM PST) + + + + + + | Component | Value | Ref Range | Performed | Pathologist | | | | | At | Signature | + + + + + + | PAT TEMP | 36.4 | Degree C | [facility] | | | ARTERIAL | | | LABORATORY | | | | | | SERVICES, | | | | | | CORE | | + + + + + + | FIO2 | .45 | | [facility] | | | ARTERIAL | | | LABORATORY | | | | | | SERVICES, | | | | | | CORE | | + + + + + + | PH ARTERIAL | 7.30 (L) | 7.37 - 7.44 | [facility] | | | | | | LABORATORY | | | | | | SERVICES, | | | | | | CORE | | + + + + + + | PCO2 | 39 | 32 - 43 mmHg | [facility] | | | ARTERIAL | | | LABORATORY | | | | | | SERVICES, | | | | | | CORE | | + + + + + + | PO2 | 133 (H) | 72 - 104 mmHg | [facility] | | | ARTERIAL | | | LABORATORY | | | | | | SERVICES, | | | | | | CORE | | + + + + + + | HCO3 | 19 (L) | 21 - 28 mmol/L | [facility] | | | ARTERIAL | | | LABORATORY | | | | | | SERVICES, | | | | | | CORE | | + + + + + + | TOTAL CO2 | 20 (L) | 22 - 28 mmol/L | [facility] | | | ARTERIAL | | | LABORATORY | | | | | | SERVICES, | | | | | | CORE | | + + + + + + | BASE EXCESS | -6.8 | | [facility] | | | ARTERIAL | | | LABORATORY | | | | | | SERVICES, | | | | | | CORE | | + + + + + + | O2 SAT, | 98.4 (H) | 92.0 - 98.0 | [facility] | | | ARTERIAL | | | LABORATORY | | | [...] | + + + + + | [facility] | [address] | [place] [address] | | | SERVICES, CORE | [address] | | | + + + + + CAPILLARY BLOOD GLUCOSE (NO CHG), POC (11/29/2012 11:38 PM PST) + +---------+ + + + | Component | Value | Ref Range | Performed | Pathologist | | | | | At | Signature | + +---------+ + + + | BLOOD | 196 (H) | 60 - 99 mg/dL | [facility] - | | | GLUCOSE, | | | [facility] | | | POC | | | [facility] | | | | | | OF CARE | | | | | | TESTS | | + +---------+ + + + + + | Specimen | + + | | + + + + + + + | Performing | Address | City/State[facility] | Phone Number | | Organization | | | | + + + + + | [facility] | [address] | [place], [place] | | | [facility] | [facility] | [address] | | | TESTS | | | | + + + + + CAPILLARY BLOOD GLUCOSE (NO CHG)GERMAN (11/29/2012 10:47 PM PST) + +---------+ + + + | Component | Value | Ref Range | Performed | Pathologist | | | | | At | Signature | + +---------+ + + + | BLOOD | 180 (H) | 60 - 99 mg/dL | [...] | [facility] | [address] | [place], [place] | | | [facility] | [facility] | [address] | | | TESTS | | | | + + + + + 12 LEAD ECG (11/29/2012 10:03 PM PST) + + + + + + | Component | Value | Ref Range | Performed | Pathologist | | | | | At | Signature | + + + + + + | VENTRICULAR | 93 | BPM | [facility] | | | RATE | | | OF | | | | | | CARDIOLOGY | | + + + + + + | ATRIAL RATE | 93 | BPM | [facility] | | | | | | OF | | | | | | CARDIOLOGY | | + + + + + + | P-R | 204 | ms | [facility] | | | INTERVAL | | | OF | | | | | | CARDIOLOGY | | + + + + + + | QRS | 116 | ms | [facility] | | | DURATION | | | OF | | | | | | CARDIOLOGY | | + + + + + + | QT | 374 | ms | [facility] | | | | | | OF | | | | | | CARDIOLOGY | | + + + + + + | QTC | 465 | ms | [facility] | | | | | | OF | | | | | | CARDIOLOGY | | + + + + + + | P AXIS | 69 | degrees | [facility] | | | | | | OF | | | | | | CARDIOLOGY | | + + + + + + | R AXIS | 97 | degrees | [facility] | | | | | | OF | | | | | | CARDIOLOGY | | + + + + + + | T AXIS | -7 | degrees | [facility] | | | | | | OF | | | | | | CARDIOLOGY | | + + + + + + | EKG | Normal sinus | | [facility] | | | DIAGNOSIS | rhythmRightward | | OF | | | | axisAnteroseptal infarct | | CARDIOLOGY | | | | , age undeterminedT | | | | | | wave abnormality, | | | | | | consider inferior | | | | | | ischemiaAbnormal | | | | | | ECGConfirmed by [place] | | | | | | AYALA ([id number]) on 01/15/2013 | | | | | | 11:54:06 AM | | | | + + + + + + + + | Specimen | + + | | + + + + + | Narrative | Performed At | + + + | Please click | [facility] | | on view image for the detailed interpretation from [employer] results. | CARDIOLOGY | + + + + + + + + | Performing | Address | City/State/Zipcode | Phone Number | | Organization | | | | + + + + + | [facility] | [address] | [place], [place] | | | CARDIOLOGY | [address] | [address] | | + + + + + 12 LEAD ECG (11/29/2012 10:03 PM PST) + + + + + + | Component | Value | Ref Range | Performed | Pathologist | | | | | At | Signature | + + + + + + | VENTRICULAR | 93 | BPM | [facility] | | | RATE | | | OF | | | | | | CARDIOLOGY | | + + + + + + | ATRIAL RATE | 93 | BPM | [facility] | | | | | | OF | | | | | | CARDIOLOGY | | + + + + + + | P-R | 206 | ms | [facility] | | | INTERVAL | | | OF | | | | | | CARDIOLOGY | | + + + + + + | QRS | 112 | ms | [facility] | | | DURATION | | | OF | | | | | | CARDIOLOGY | | + + + + + + | QT | 382 | ms | [facility] | | | | | | OF | | | | | | CARDIOLOGY | | + + + + + + | QTC | 474 | ms | [facility] | | | | | | OF | | | | | | CARDIOLOGY | | + + + + + + | P AXIS | 66 | degrees | [facility] | | | | | | OF | | | | | | CARDIOLOGY | | + + + + + + | R AXIS | 97 | degrees | [facility] | | | | | | OF | | | | | | CARDIOLOGY | | + + + + + + | T AXIS | 22 | degrees | [facility] | | | | | | OF | | | | | | CARDIOLOGY | | + + + + + + | EKG | Poor data quality, | | [facility] | | | DIAGNOSIS | interpretation may be | | OF | | | | adversely affectedNormal | | CARDIOLOGY | | | | sinus rhythmRightward | | | | | | axisAnteroseptal infarct | | | | | | , age undeterminedT | | | | | | wave abnormality, | | | | | | consider inferior | | | | | | ischemiaAbnormal ECG"I | | | | | | have personally | | | | | | interpreted this report, | | | | | | either alone or with a | | | | | | trainee."Confirmed by | | | | | | KYLE CHAVEZ ([id number]) on | | | | | | 12/02/2012 8:17:28 AM | | | | + + + + + + + + | Specimen | + + | | + + + + + | Narrative | Performed At | + + + | Please click | [facility] | | on view image for the detailed interpretation from [employer] results. | CARDIOLOGY | + + + + + + + + | Performing | Address | City/State/Zipcode | Phone Number | | Organization | | | | + + + + + | [facility] | [address] [facility] | [place], [place] | | | CARDIOLOGY | [address] | [address] | | + + + + + CO-OXIMETER PANEL, BLOOD (11/29/2012 9:45 PM PST) + + + + + + | Component | Value | Ref Range | Performed | Pathologist | | | | | At | Signature | + + + + + + | TOTAL | 16.1 | 13.5 - 17.5 | [facility] | | | HEMOGLOBIN | | g/dL | LABORATORY | | | | | | SERVICES, | | | | | | CORE | | + + + + + + | OXYHEMOGLOB | 79.7 (L) | 94.0 - 100.0 % | [facility] | | | IN | | | LABORATORY | | | | | | SERVICES, | | | | | | CORE | | + + + + + + | CARBOXYHEMO | <1.0 | <1.5 % | [facility] | | | GLOBIN | | | LABORATORY | | | | | | SERVICES, | | | | | | CORE | | + + + + + + | METHEMOGLOB | 1.1 | % | [facility] | | | IN | | | LABORATORY | | | | | | SERVICES, | | | | | | CORE | | + + + + + + | OXYGEN SAT, | 81.1 (L) | 92.0 - 98.0 % | [facility] | | | BERTA | | | LABORATORY | | | | | | SERVICES, | | | | | | CORE | | + + + + + + | DEOXYHEMOGL | 18.6 | % | [facility] | | | OBIN | | | LABORATORY | | | | | | SERVICES, | | | | | | CORE | | + + + + + + + + | Specimen | + + | Blood - Blood | + + + + + | Narrative | Performed At | + + + | Carboxyhemoglobin ranges Nonsmoker: | [facility] | | <1.5% Smokers (1-2 packs/day): 4-5% Smokers (>2 packs/day): | LABORATORY | | 8-9% Methemoglobin Reference Range: 0-18 years: Not | SERVICES, CORE | | Available >18 years: <2% of total hemoglobin | | + + + + + + + + | Performing | Address | City/State/Zipcode | Phone Number | | Organization | | | | + + + + + | [facility] | [address] | [place] [address] | | | SERVICES, CORE | [address] | | | + + + + + X-RAY CHEST 1 VIEW (11/29/2012 9:35 PM PST) + + + + + + | Component | Value | Ref Range | Performed | Pathologist | | | | | At | Signature | + + + + + + | CHEST, 1 | CHEST 1 VIEW, 11/29/12 | | | | | VIEW | 21:35:00 COMPARISON: | | | | | | 11/26/12 HISTORY: Post | | | | | | open heart surgery | | | | | | FINDINGS: A right | | | | | | transjugular pulmonary | | | | | | artery catheter tip | | | | | | projects in themain | | | | | | pulmonary artery. There | | | | | | are new intact | | | | | | sternotomy wires. | | | | | | Theendotracheal tube tip | | | | | | projects 4 cm above the | | | | | | john. An enteric | | | | | | tubetip and sidehole | | | | | | projected in the gastric | | | | | | body. There is no acute | | | | | | osseous abnormality or | | | | | | pneumothorax. The | | | | | | lungvolumes are low with | | | | | | bibasilar and dense | | | | | | retrocardiac | | | | | | atelectasis. Asmall left | | | | | | pleural effusion is | | | | | | noted without findings | | | | | | of pulmonaryedema. There | | | | | | are no focal | | | | | | consolidations. The | | | | | | cardiac and | | | | | | mediastinalcontours are | | | | | | unchanged given | | | | | | technique difference. | | | | | | IMPRESSION: Support | | | | | | equipment as above. Left | | | | | | and retrocardiac | | | | | | greater than right | | | | | | basilar atelectasis | | | | | | andsmall left pleural | | | | | | effusion. Attending | | | | | | Radiologists: SHAY | | | | | | FUSS, MDAuthor: | | | | | | Marques Ahuja M.D. I | | | | | | have personally viewed | | | | | | this procedure/exam, | | | | | | reviewed this report,and | | | | | | made changes to it | | | | | | where appropriate. | | | | | | Final/Electronically | | | | | | signed / SHAY | | | | | | FUSS 11/30/2012 9:44 AM | | | | | | | [...] | | | + +---------+ + + CAPILLARY BLOOD GLUCOSE (NO CHG), POC (11/29/2012 9:19 PM PST) + +---------+ + + + | Component | Value | Ref Range | Performed | Pathologist | | | | | At | Signature | + +---------+ + + + | BLOOD | 176 (H) | 60 - 99 mg/dL | [...] | [facility] | [address] | [place], [place] | | | [facility] | [facility] | [phone] | | | TESTS | | | | + + + + + CALCIUM, IONIZED, WHOLE BLOOD (11/29/2012 9:11 PM PST) + + + + + + | Component | Value | Ref Range | Performed | Pathologist | | | | | At | Signature | + + + + + + | BERTA ICA, | 1.20 | 1.14 - 1.32 | [facility] | | | WHOLE BLD | | mmol/L | LABORATORY | | | | | | SERVICES, | | | | | | CORE | | + + + + + + | PH, WHOLE | 7.29 | | [facility] | | | BLOOD | | | LABORATORY | | | | | | SERVICES, | | | | | | CORE | | + + + + + + | ICA, | 1.13 (L) | 1.14 - 1.28 | [facility] | | | CORRECTED | | mmol/L | LABORATORY | | | TO PH 7.4 | | | SERVICES, | | | [...] + | [facility] | [address] | [place] [address] | | | SERVICES, CORE | [address] | | | + + + + + BLOOD GASES, ARTERIAL - LAB (11/29/2012 9:11 PM PST) + + + + + + | Component | Value | Ref Range | Performed | Pathologist | | | | | At | Signature | + + + + + + | PAT TEMP | ng | Degree C | [facility] | | | ARTERIAL | | | LABORATORY | | | | | | SERVICES, | | | | | | CORE | | + + + + + + | FIO2 | ng | | [facility] | | | ARTERIAL | | | LABORATORY | | | | | | SERVICES, | | | | | | CORE | | + + + + + + | PH ARTERIAL | 7.29 (L) | 7.37 - 7.44 | [facility] | | | | | | LABORATORY | | | | | | SERVICES, | | | | | | CORE | | + + + + + + | PCO2 | 44 (H) | 32 - 43 mmHg | [facility] | | | ARTERIAL | | | LABORATORY | | | | | | SERVICES, | | | | | | CORE | | + + + + + + | PO2 | 118 (H) | 72 - 104 mmHg | [facility] | | | ARTERIAL | | | LABORATORY | | | | | | SERVICES, | | | | | | CORE | | + + + + + + | HCO3 | 21 | 21 - 28 mmol/L | [facility] | | | ARTERIAL | | | LABORATORY | | | | | | SERVICES, | | | | | | CORE | | + + + + + + | TOTAL CO2 | 22 | 22 - 28 mmol/L | [facility] | | | ARTERIAL | | | LABORATORY | | | | | | SERVICES, | | | | | | CORE | | + + + + + + | BASE EXCESS | -5.5 | | [facility] | | | ARTERIAL | | | LABORATORY | | | | | | SERVICES, | | | | | | CORE | | + + + + + + | O2 SAT, | 97.8 | 92.0 - 98.0 | [facility] | | | ARTERIAL | | | LABORATORY | | | [...] + | [facility] | [address] | [place] [address] | | | SERVICES, CORE | [address] | | | + + + + + CBC (11/29/2012 9:10 PM PST) + + + + + + | Component | Value | Ref Range | Performed | Pathologist | | | | | At | Signature | + + + + + + | WBC COUNT | 21.2 (H) | 4.4 - 11.0 K/cu | [facility] | | | | | mm | LABORATORY | | | | | | SERVICES, | | | | | | CORE | | + + + + + + | RED CELL | 4.46 (L) | 4.50 - 5.90 | [facility] | | | COUNT | | M/cu mm | LABORATORY | | | | | | SERVICES, | | | | | | CORE | | + + + + + + | HEMOGLOBIN | 14.0 | 13.5 - 17.5 | [facility] | | | | | g/dL | LABORATORY | | | | | | SERVICES, | | | | | | CORE | | + + + + + + | HEMATOCRIT | 41.6 | 41.0 - 53.0 % | [facility] | | | | | | LABORATORY | | | | | | SERVICES, | | | | | | CORE | | + + + + + + | MCV | 93.4 | 80.0 - 96.0 fL | [facility] | | | | | | LABORATORY | | | | | | SERVICES, | | | | | | CORE | | + + + + + + | MCHC | 33.7 | 33.4 - 35.5 | [facility] | | | | | g/dL | LABORATORY | | | | | | SERVICES, | | | | | | CORE | | + + + + + + | RDW | 14.1 | 11.5 - 15.0 % | [facility] | | | | | | LABORATORY | | | | | | SERVICES, | | | | | | CORE | | + + + + + + | PLATELET | 133 (L) | 150 - 400 K/cu | [facility] [...] + | [facility] | [address] | [place] [address] | | | SERVICES, CORE | [address] | | | + + + + + MAGNESIUM, PLASMA (11/29/2012 9:10 PM PST) + +---------+ + + + | Component | Value | Ref Range | Performed | Pathologist | | | | | At | Signature | + +---------+ + + + | MAGNESIUM,P | 3.8 (H) | 1.8 - 2.5 mg/dL | [facility] [...] + + | [facility] | [address] | [place] [address] | | | SERVICES, CORE | [address] | | | + + + + + APTT (ACT. PART. THROMBO TIME) (11/29/2012 9:10 PM PST) + + + + + + | Component | Value | Ref Range | Performed | Pathologist | | | | | At | Signature | + + + + + + | APTT | 39.8 (H) | 26.0 - 36.0 | [facility] [...] | + + + + + | [facility] | [address] | [place] [address] | | | SERVICES, CORE | [address] | | | + + + + + INR (11/29/2012 9:10 PM PST) + + + + + + | Component | Value | Ref Range | Performed | Pathologist | | | | | At | Signature | + + + + + + | INR | 1.71 (H) | 0.90 - 1.20 INR | [...] + | [facility] | [address] | [place] [address] | | | SERVICES, CORE | [address] | | | + + + + + RENAL FUNCTION SET (NA,K,CL,CO2,BUN,CREAT,GLUC,CA,PHOS,ALB ) (11/29/2012 9:10 PM PST) + + + + + + | Component | Value | Ref Range | Performed | Pathologist | | | | | At | Signature | + + + + + + | GLUCOSE, | 189 (H) | 60 - 99 mg/dL | [facility] | | | PLASMA | | | LABORATORY | | | (LAB) | | | SERVICES, | | | | | | CORE | | + + + + + + | BUN, PLASMA | 33 (H) | 6 - 20 mg/dL | [facility] | | | (LAB) | | | LABORATORY | | | | | | SERVICES, | | | | | | CORE | | + + + + + + | CREATININE | 2.15 (H) | 0.70 - 1.30 | [facility] | | | PLASMA | | mg/dL | LABORATORY | | | (LAB) | | | SERVICES, | | | | | | CORE | | + + + + + + | SODIUM, | 142 | 136 - 145 | [facility] | | | PLASMA | | mmol/L | LABORATORY | | | (LAB) | | | SERVICES, | | | | | | CORE | | + + + + + + | POTASSIUM, | 4.5 | 3.4 - 5.0 | [facility] | | | PLASMA | | mmol/L | LABORATORY | | | (LAB) | | | SERVICES, | | | | | | CORE | | + + + + + + | CHLORIDE, | 109 (H) | 97 - 108 mmol/L | [facility] [...] + + + + | ALBUMIN, | 3.4 (L) | 3.5 - 4.7 g/dL | [facility] | | | PLASMA | | | LABORATORY | | | (LAB) | | | SERVICES, | | | | | | CORE | | + + + + + + | PHOSPHORUS, | 3.2 | 2.4 - 4.7 mg/dL | [facility] | | | PLASMA [...] | + + + + + | [facility] | [address] | [place] [address] | | | SERVICES, CORE | [address] | | | + + + + + CBC AND AUTO DIFF (11/29/2012 8:13 PM PST) + + + + + + | Component | Value | Ref Range | Performed | Pathologist | | | | | At | Signature | + + + + + + | WBC COUNT | 18.1 (H) | 4.4 - 11.0 K/cu | [facility] | | | | | mm | LABORATORY | | | | | | SERVICES, | | | | | | CORE | | + + + + + + | RED CELL | 3.61 (L) | 4.50 - 5.90 | [facility] | | | COUNT | | M/cu mm | LABORATORY | | | | | | SERVICES, | | | | | | CORE | | + + + + + + | HEMOGLOBIN | 11.3 (L) | 13.5 - 17.5 | [facility] | | | | | g/dL | LABORATORY | | | | | | SERVICES, | | | | | | CORE | | + + + + + + | HEMATOCRIT | 33.6 (L) | 41.0 - 53.0 % | [facility] | | | | | | LABORATORY | | | | | | SERVICES, | | | | | | CORE | | + + + + + + | MCV | 92.9 | 80.0 - 96.0 fL | [facility] | | | | | | LABORATORY | | | | | | SERVICES, | | | | | | CORE | | + + + + + + | MCHC | 33.6 | 33.4 - 35.5 | [facility] | | | | | g/dL | LABORATORY | | | | | | SERVICES, | | | | | | CORE | | + + + + + + | RDW | 13.9 | 11.5 - 15.0 % | [facility] | | | | | | LABORATORY | | | | | | SERVICES, | | | | | | CORE | | + + + + + + | PLATELET | 123 (L) | 150 - 400 K/cu | [facility] | | | COUNT | | mm | LABORATORY | | | | | | SERVICES, | | | | | | CORE | | + + + + + + | NEUTROPHIL | 81 (H)Comment: < or =10% | 50 - 70 % | [facility] | | | % | bands seen on scan. | | LABORATORY | | | | | | SERVICES, | | | | | | CORE | | + + + + + + | LYMPHOCYTE | 15 (L) | 18 - 42 % | [facility] | | | % | | | LABORATORY | | | | | | SERVICES, | | | | | | CORE | | + + + + + + | MONOCYTE % | 2 | 2 - 8 % | [facility] | | | | | | LABORATORY | | | | | | SERVICES, | | | | | | CORE | | + + + + + + | EOS % | 1 | 1 - 3 % | [facility] | | | | | | LABORATORY | | | | | | SERVICES, | | | | | | CORE | | + + + + + + | BASO % | 0 | 0 - 2 % | [facility] | | | | | | LABORATORY | | | | | | SERVICES, | | | | | | CORE | | + + + + + + | NEUTROPHIL | 14.6 (H) | 1.8 - 7.7 K/cu | [facility] | | | # | | mm | LABORATORY | | | | | | SERVICES, | | | | | | CORE | | + + + + + + | LYMPHOCYTE | 2.8 | 1.0 - 4.8 K/cu | [facility] | | | # | | mm | LABORATORY | | | | | | SERVICES, | | | | | | CORE | | + + + + + + | MONOCYTE # | 0.4 | 0.0 - 0.8 K/cu | [facility] | | | | | mm | LABORATORY | | | | | | SERVICES, | | | | | | CORE | | + + + + + + | EOS # | 0.3 | 0.0 - 0.5 K/cu | [facility] | | | | | mm | LABORATORY | | | | | | SERVICES, | | | | | | CORE | | + + + + + + | BASO # | 0.1 | 0.0 - 0.1 K/cu | [facility] [...] Performed At | + + + | Final automated differential report. Smear reviewed. | [facility] | | | LABORATORY | | | TANIA, TOI | + + + + + + + + | Performing | Address | City/State/Zipcode | Phone Number | | Organization | | | | + + + + + | [facility] | [address] | [place] [address] | | | TOI MARIN | [address] | | | + + + + + COAGULOPATHY PANEL (INR,APTT,FIBRINOGEN) (11/29/2012 8:13 PM PST) + + + + + + | Component | Value | Ref Range | Performed | Pathologist | | | | | At | Signature | + + + + + + | INR | 2.03 (H) | 0.90 - 1.20 INR | [facility] | | | | | | LABORATORY | | | | | | SERVICES, | | | | | | CORE | | + + + + + + | APTT | 44.5 (H) | 26.0 - 36.0 | [facility] | | | | | seconds | LABORATORY | | | | | | SERVICES, | | | | | | CORE | | + + + + + + | FIBRINOGEN | 366 | 200 - 450 mg/dL | [facility] | | | LEVEL | | | LABORATORY | | | [...] with mech. valves (2.5 - 3.5) INR APTT | SERVICES, CORE | | Therapeutic Range: (75 - 120) sec | | | Heparin levels of 0.35 - 0.7 U/mL | | + + + + + + + + | Performing | Address | City/State/Zipcode | Phone Number | | Organization | | | | + + + + + | [facility] | [address] | [place] [address] | | | SERVICES, CORE | [address] | | | + + + + + BASIC METABOLIC SET (NA, K, CL, TCO2, BUN, CR, GLU, CA) (11/29/2012 5:41 AM PST) + + + + + + | Component | Value | Ref Range | Performed | Pathologist | | | | | At | Signature | + + + + + + | GLUCOSE, | 105 (H) | 60 - 99 mg/dL | [facility] | | | PLASMA | | | LABORATORY | | | (LAB) | | | SERVICES, | | | | | | CORE | | + + + + + + | BUN, PLASMA | 35 (H) | 6 - 20 mg/dL | [facility] | | | (LAB) | | | LABORATORY | | | | | | SERVICES, | | | | | | CORE | | + + + + + + | CREATININE | 2.19 (H) | 0.70 - 1.30 | [facility] | | | PLASMA | | mg/dL | LABORATORY | | | (LAB) | | | SERVICES, | | | | | | CORE | | + + + + + + | SODIUM, | 141 | 136 - 145 | [facility] | | | PLASMA | | mmol/L | LABORATORY | | | (LAB) | | | SERVICES, | | | | | | CORE | | + + + + + + | POTASSIUM, | 4.4 | 3.4 - 5.0 | [facility] | | | PLASMA | | mmol/L | LABORATORY | | | (LAB) | | | SERVICES, | | | | | | CORE | | + + + + + + | CHLORIDE, | 108 | 97 - 108 mmol/L | [facility] | | | PLASMA | | | LABORATORY | | | (LAB) | | | SERVICES, | | | | | | CORE | | + + + + + + | TOTAL CO2, | 22 | 21 - 32 mmol/L | [facility] [...] + + + | ANION GAP | 11 | 4 - 11 mmol/L | [facility] [...] | + + + + + | [facility] | [address] | [place] [address] | | | TANIA, TOI | [address] | | | + + + + + CAPILLARY BLOOD GLUCOSE (NO CHG), POC (11/28/2012 5:31 PM PST) + +---------+ + + + | Component | Value | Ref Range | Performed | Pathologist | | | | | At | Signature | + +---------+ + + + | BLOOD | 143 (H) | 60 - 99 mg/dL | [...] | [facility] | [address] | [place], [place] | | | [facility] | [facility] | [address] | | | TESTS | | | | + + + + + CAPILLARY BLOOD GLUCOSE (NO CHG), POC (11/28/2012 12:22 PM PST) + +---------+ + + + | Component | Value | Ref Range | Performed | Pathologist | | | | | At | Signature | + +---------+ + + + | BLOOD | 125 (H) | 60 - 99 mg/dL | [facility] - | | | GLUCOSE, | | [...] + | [facility] | [address] | [place], [place] | | | [facility] | [facility] | [address] | | | TESTS | | | | + + + + + CAPILLARY BLOOD GLUCOSE (NO CHG), POC (11/28/2012 8:49 AM PST) + +---------+ + + + | Component | Value | Ref Range | Performed | Pathologist | | | | | At | Signature | + +---------+ + + + | BLOOD | 107 (H) | 60 - 99 mg/dL | [...] | [facility] | [address] | [place], [place] | | | KAILYN MA[facility] | [address] | [address] | | | TESTS | | | | + + + + + CBC (11/28/2012 6:15 AM PST) + + + + + + | Component | Value | Ref Range | Performed | Pathologist | | | | | At | Signature | + + + + + + | WBC COUNT | 7.1 | 4.4 - 11.0 K/cu | [facility] | | | | | mm | LABORATORY | | | | | | SERVICES, | | | | | | CORE | | + + + + + + | RED CELL | 4.21 (L) | 4.50 - 5.90 | [facility] | | | COUNT | | M/cu mm | LABORATORY | | | | | | SERVICES, | | | | | | CORE | | + + + + + + | HEMOGLOBIN | 13.2 (L) | 13.5 - 17.5 | [facility] | | | | | g/dL | LABORATORY | | | | | | SERVICES, | | | | | | CORE | | + + + + + + | HEMATOCRIT | 38.4 (L) | 41.0 - 53.0 % | [facility] | | | | | | LABORATORY | | | | | | SERVICES, | | | | | | CORE | | + + + + + + | MCV | 91.1 | 80.0 - 96.0 fL | [facility] | | | | | | LABORATORY | | | | | | SERVICES, | | | | | | CORE | | + + + + + + | MCHC | 34.4 | 33.4 - 35.5 | [facility] | | | | | g/dL | LABORATORY | | | | | | SERVICES, | | | | | | CORE | | + + + + + + | RDW | 14.2 | 11.5 - 15.0 % | [facility] | | | | | | LABORATORY | | | | | | SERVICES, | | | | | | CORE | | + + + + + + | PLATELET | 188 [...] + | [facility] | [address] | [place] [address] | | | SERVICES, CORE | [address] | | | + + + + + CONFIRMATORY ABO/RH (11/28/2012 6:15 AM PST) + + + + + + | Component | Value | Ref Range | Performed | Pathologist | | | | | At | Signature | + + + + + + | ABO Group | AB | | [facility] | | | | | | LABORATORY | | | | | | SERVICES, | | | | | | TRANSFUSION | | | | | | MEDICINE | | + + + + + + | Rh Type | Positive | | [facility] | | | | | | LABORATORY | | | | | | SERVICES, | | | | | | TRANSFUSION | | | | | | MEDICINE | | + + + + + + + + | Specimen | + + | Blood - Blood | + + + + + + + | Performing | Address | City/State/Zipcode | Phone Number | | Organization | | | | + + + + + | [facility] | [address] | [place] [address] | | | SERVICES, | [address] | | | | TRANSFUSION MEDICINE | | | | + + + + + HEPARIN, EITHER STANDARD / LMW, BLOOD (11/28/2012 6:15 AM PST) + +-------+ + + + | Component | Value | Ref Range | Performed | Pathologist | | | | | At | Signature | + +-------+ + + + | HEPARIN, | 0.62 | U/mL | [facility] | | | STD LMW | | | LABORATORY | | | | | | SERVICES, | | | | | | CORE | | + +-------+ + + + + + | Specimen | + + | Blood - Blood | + + + + + | Narrative | Performed At | + + + | Heparin, Either STD/LMW - Therapeutic Ranges: Heparin, | [facility] | | Unfractionated: 0.35 - 0.70 U/mL Enoxaparin, LMWH: 0.70 | LABORATORY | | - 1.20 U/mL Dalteparin, LMWH: 0.70 - 1.20 U/mL | SERVICES, CORE | | Tinzaparin, LMWH: Therapeutic range not established. | | | Preliminary studies suggest range | | | similar to dalteparin. Clinical | | | correlation required. | | | Heparin levels may be unreliable for: | | | Total bilirubin >6.6mg/dL | | | Triglycerides >360 mg/dL | | | or Moderate to Gross Hemolysis | | + + + + + + + + | Performing | Address | City/State/Zipcode | Phone Number | | Organization | | | | + + + + + | [facility] | [address] | [place] [address] | | | SERVICES, [facility] | [address] | | | + + + + + RENAL FUNCTION SET (NA,K,CL,CO2,BUN,CREAT,GLUC,CA,PHOS,ALB ) (11/28/2012 6:15 AM PST) + + + + + + | Component | Value | Ref Range | Performed | Pathologist | | | | | At | Signature | + + + + + + | GLUCOSE, | 103 (H) | 60 - 99 mg/dL | [facility] | | | PLASMA | | | LABORATORY | | | (LAB) | | | SERVICES, | | | | | | CORE | | + + + + + + | BUN, PLASMA | 44 (H) | 6 - 20 mg/dL | [facility] | | | (LAB) | | | LABORATORY | | | | | | SERVICES, | | | | | | CORE | | + + + + + + | CREATININE | 2.21 (H) | 0.70 - 1.30 | [facility] [...] + + + + | CHLORIDE, | 109 (H) | 97 - 108 mmol/L | [facility] [...] + + + + | ALBUMIN, | 3.7 | 3.5 - 4.7 g/dL | [facility] | | | PLASMA | | | LABORATORY | | | (LAB) | | | SERVICES, | | | | | | CORE | | + + + + + + | PHOSPHORUS, | 3.5 | 2.4 - 4.7 mg/dL | [facility] | | | PLASMA [...] + + + | ANION GAP | 10 | 4 - 11 mmol/L | [facility] | | | | | | LABORATORY | | | | | | SERVICES, | | | | | | CORE | | + + + + + + | ANION | 10 | 4 - 11 mmol/L | [facility] [...] | + + + + + | [facility] | [address] | [place] [address] | | | SERVICES, CORE | [address] | | | + + + + + CAPILLARY BLOOD GLUCOSE (NO CHG), POC (11/27/2012 5:55 PM PST) + +---------+ + + + | Component | Value | Ref Range | Performed | Pathologist | | | | | At | Signature | + +---------+ + + + | BLOOD | 103 (H) | 60 - 99 mg/dL | [...] + + + + | [facility] | [address] | [place], [place] | | | K[facility] | [address] | [address] | | | TESTS | | | | + + + + + CAPILLARY BLOOD GLUCOSE (NO CHG), POC (11/27/2012 12:44 PM PST) + +-------+ + + + | Component | Value | Ref Range | Performed | Pathologist | | | | | At | Signature | + +-------+ + + + | BLOOD | 89 | 60 - 99 mg/dL | [facility] - | | | GLUCOSE, | | | [facility] | | | POC | | | [place] | | | | | | OF CARE | | | | | | TESTS | | + +-------+ + + + + + | Specimen | + + | | + + + + + + + | Performing | Address | City/State/Zipcode | Phone Number | | Organization | | | | + + + + + | [facility] | [address] | [place], [place] | | | [facility] | [address] | [address] | | | TESTS | | | | + + + + + VASC LAB VEIN MAPPING LOWER EXTREMITY BILAT (11/27/2012 12:04 PM PST) + + + + + + | Component | Value | Ref Range | Performed | Pathologist | | | | | At | Signature | + + + + + + | VASC LAB | LEG VEIN MAPPING | | | | | VEIN | EXAMINATION: | | | | | MAPPING | 11/27/2012Dictated | | | | | LOWER | 11/27/2012INDICATION: | | | | | EXTREMITY | Pain.FINDINGS: The | | | | | BILATERAL | greater saphenous veins | | | | | | were assessed | | | | | | bilaterally withthe | | | | | | duplex scanner. The | | | | | | right greater saphenous | | | | | | vein is patent for | | | | | | alength of 76 cm, but | | | | | | there appears to be | | | | | | non-occlusive | | | | | | brightechogenic | | | | | | superficial venous | | | | | | thrombosis around the | | | | | | koch consistentwith | | | | | | chronic superficial | | | | | | venous thrombosis. The | | | | | | vein ranges from | | | | | | 2.8to4.7 mm in diameter | | | | | | below the knee and 5.6 | | | | | | to 6.6 mm in diameter | | | | | | abovethe knee. The left | | | | | | greater saphenous vein | | | | | | is patent for a length | | | | | | of71 cm and ranges from | | | | | | 2.7 to 4 mm in diameter | | | | | | below the knee and 5.6to | | | | | | 6.6 mm in diameter | | | | | | above the | | | | | | knee.IMPRESSION:Leg vein | | | | | | mapping examination as | | | | | | described. There appears | | | | | | to beevidence of | | | | | | chronic superficial | | | | | | venous thrombosis of the | | | | | | rightgreater saphenous | | | | | | vein.END IMPRESSION: | | | | | | Attending Radiologists: | | | | | | BEBETO SAHU, | | | | | | MDAuthor: BEBETO | | | | | | MD LUIS ALBERTO I have | | | | | | personally viewed this | | | | | | procedure/exam, reviewed | | | | | | this report,and made | | | | | | changes to it where | | | | | | appropriate. | | | | | | Final/Electronically | | | | | | signed / BEBETO | | | | | | LUIS ALBERTO Preliminary / | | | | | | BEBETO SAHU | | | | | | 11/30/2012 9:53 AM | | | | + + [...] | | | + +---------+ + + ANTIBODY SCREEN (11/27/2012 11:24 AM PST) + + + + + + | Component | Value | Ref Range | Performed | Pathologist | | | | | At | Signature | + + + + + + | Antibody | Negative | | [facility] | | | Screen | | | LABORATORY | | | | | | SERVICES, | | | | | | TRANSFUSION | | | | | | MEDICINE | | + + + + + + + + | Specimen | + + | Blood - Blood | + + + + + + + | Performing | Address | City/State/Zipcode | Phone Number | | Organization | | | | + + + + + | [facility] | [address] | [place] [address] | | | SERVICES, | [address] | | | | TRANSFUSION MEDICINE | | | | + + + + + ABO & RH TYPE (11/27/2012 11:24 AM PST) + + + + + + | Component | Value | Ref Range | Performed | Pathologist | | | | | At | Signature | + + + + + + | ABO Group | AB | | [facility] | | | | | | LABORATORY | | | | | | SERVICES, | | | | | | TRANSFUSION | | | | | | MEDICINE | | + + + + + + | Rh Type | Positive | | [facility] | | | | | | LABORATORY | | | | | | SERVICES, | | | | | | TRANSFUSION | | | | | | MEDICINE | | + + + + + + + + | Specimen | + + | Blood - Blood | + + + + + + + | Performing | Address | City/State/Zipcode | Phone Number | | Organization | | | | + + + + + | [facility] | [address] | [place] [address] | | | SERVICES, | [address] | | | | TRANSFUSION MEDICINE | | | | + + + + + HEPARIN, EITHER STANDARD / LMW, BLOOD (11/27/2012 11:24 AM PST) + +-------+ + + + | Component | Value | Ref Range | Performed | Pathologist | | | | | At | Signature | + +-------+ + + + | HEPARIN, | 0.61 | U/mL | [facility] | | | STD LMW | | | LABORATORY | | | | | | SERVICES, | | | | | | CORE | | + +-------+ + + + + + | Specimen | + + | Blood - Blood | + + + + + | Narrative | Performed At | + + + | Heparin, Either STD/LMW - Therapeutic Ranges: Heparin, | [facility] | | Unfractionated: 0.35 - 0.70 U/mL Enoxaparin, LMWH: 0.70 | LABORATORY | | - 1.20 U/mL Dalteparin, LMWH: 0.70 - 1.20 U/mL | SERVICES, CORE | | Tinzaparin, LMWH: Therapeutic range not established. | | | Preliminary studies suggest range | | | similar to dalteparin. Clinical | | | correlation required. | | | Heparin levels may be unreliable for: | | | Total bilirubin >6.6mg/dL | | | Triglycerides >360 mg/dL | | | or Moderate to Gross Hemolysis | | + + + + + + + + | Performing | Address | City/State/Zipcode | Phone Number | | Organization | | | | + + + + + | [facility] | [address] | [place] [address] | | | SERVICES, CORE | [address] | | | + + + + + PRODUCT - FRESH FROZEN PLASMA (11/27/2012 7:50 AM PST) + + + + + + | Component | Value | Ref Range | Performed | Pathologist | | | | | At | Signature | + + + + + + | PRODUCT | THAWED PLASMA, 5 DAY | | [facility] | | | DESCRIPTION | OUTDATE | | DEPARTMENT | | | | | | OF | | | | | | PATHOLOGY | | + + + + + + | PRODUCT | [id number] | | [facility] | | | UNIT # | | | DEPARTMENT | | | | | | OF | | | | | | PATHOLOGY | | + + + + + + | UNIT ABO | AB | | [facility] | | | | | | DEPARTMENT | | | | | | OF | | | | | | PATHOLOGY | | + + + + + + | UNIT RH | POS | | [facility] | | | | | | DEPARTMENT | | | | | | OF | | | | | | PATHOLOGY | | + + + + + + | STATUS OF | Returned to Blood Bank | | [facility] | | | UNIT | | | DEPARTMENT | | | | | | OF | | | | | | PATHOLOGY | | + + + + + + | BLOOD | [id number] | | [facility] | | | PRODUCT | | | DEPARTMENT | | | CODE | | | OF | | | | | | PATHOLOGY | | + + + + + + + + | Specimen | + + | | + + + + + + + | Performing | Address | City/State/Zipcode | Phone Number | | Organization | | | | + + + + + | [facility] | [address] | [place] [address] | | | PATHOLOGY | [address] | | | + + + + + PRODUCT - FRESH FROZEN PLASMA (11/27/2012 7:50 AM PST) + + + + + + | Component | Value | Ref Range | Performed | Pathologist | | | | | At | Signature | + + + + + + | PRODUCT | THAWED PLASMA, 5 DAY | | [facility] | | | DESCRIPTION | OUTDATE | | DEPARTMENT | | | | | | OF | | | | | | PATHOLOGY | | + + + + + + | PRODUCT | [id number] | | [facility] | | | UNIT # | | | DEPARTMENT | | | | | | OF | | | | | | PATHOLOGY | | + + + + + + | UNIT ABO | AB | | [facility] | | | | | | DEPARTMENT | | | | | | OF | | | | | | PATHOLOGY | | + + + + + + | UNIT RH | NEG | | [facility] | | | | | | DEPARTMENT | | | | | | OF | | | | | | PATHOLOGY | | + + + + + + | STATUS OF | Returned to Blood Bank | | [facility] | | | UNIT | | | DEPARTMENT | | | | | | OF | | | | | | PATHOLOGY | | + + + + + + | BLOOD | [id number] | | [facility] | | | PRODUCT | | | DEPARTMENT | | | CODE | | | OF | | | | | | PATHOLOGY | | + + + + + + + + | Specimen | + + | | + + + + + + + | Performing | Address | City/State/Zipcode | Phone Number | | Organization | | | | + + + + + | [facility] | [address] | [place] [address] | | | PATHOLOGY | [address] | | | + + + + + CAPILLARY BLOOD GLUCOSE (NO CHG), POC (11/27/2012 7:22 AM PST) + +-------+ + + + | Component | Value | Ref Range | Performed | Pathologist | | | | | At | Signature | + +-------+ + + + | BLOOD | 96 | 60 - 99 mg/dL | [facility] - | | | GLUCOSE, | | | [facility] | | | POC | | | [facility] | | | | | | OF CARE | | | | | | TESTS | | + +-------+ + + + + + | Specimen | + + | | + + + + + + + | Performing | Address | City/State/Zipcode | Phone Number | | Organization | | | | + + + + + | [facility] | [address] | [place], [place] | | | [facility] | [address] | [address] | | | TESTS | | | | + + + + + CBC (11/27/2012 3:09 AM PST) + + + + + + | Component | Value | Ref Range | Performed | Pathologist | | | | | At | Signature | + + + + + + | WBC COUNT | 7.8 | 4.4 - 11.0 K/cu | [facility] | | | | | mm | LABORATORY | | | | | | SERVICES, | | | | | | CORE | | + + + + + + | RED CELL | 4.11 (L) | 4.50 - 5.90 | [facility] | | | COUNT | | M/cu mm | LABORATORY | | | | | | SERVICES, | | | | | | CORE | | + + + + + + | HEMOGLOBIN | 12.8 (L) | 13.5 - 17.5 | [facility] | | | | | g/dL | LABORATORY | | | | | | SERVICES, | | | | | | CORE | | + + + + + + | HEMATOCRIT | 38.3 (L) | 41.0 - 53.0 % | [facility] | | | | | | LABORATORY | | | | | | SERVICES, | | | | | | CORE | | + + + + + + | MCV | 93.1 | 80.0 - 96.0 fL | [facility] | | | | | | LABORATORY | | | | | | SERVICES, | | | | | | CORE | | + + + + + + | MCHC | 33.5 | 33.4 - 35.5 | [facility] | | | | | g/dL | LABORATORY | | | | | | SERVICES, | | | | | | CORE | | + + + + + + | RDW | 14.2 | 11.5 - 15.0 % | [facility] | | | | | | LABORATORY | | | | | | SERVICES, | | | | | | CORE | | + + + + + + | PLATELET | 180 | 150 - 400 K/cu | [facility] [...] | + + + + + | [facility] | [address] | [place] [address] | | | SERVICES, CORE | [address] | | | + + + + + HEPARIN, EITHER STANDARD / LMW, BLOOD (11/27/2012 3:09 AM PST) + +-------+ + + + | Component | Value | Ref Range | Performed | Pathologist | | | | | At | Signature | + +-------+ + + + | HEPARIN, | 1.38 | U/mL | [facility] | | | STD LMW | | | LABORATORY | | | | | | SERVICES, | | | | | | CORE | | + +-------+ + + + + + | Specimen | + + | Blood - Blood | + + + + + | Narrative | Performed At | + + + | Heparin, Either STD/LMW - Therapeutic Ranges: Heparin, | [facility] | | Unfractionated: 0.35 - 0.70 U/mL Enoxaparin, LMWH: 0.70 | LABORATORY | | - 1.20 U/mL Dalteparin, LMWH: 0.70 - 1.20 U/mL | SERVICES, CORE | | Tinzaparin, LMWH: Therapeutic range not established. | | | Preliminary studies suggest range | | | similar to dalteparin. Clinical | | | correlation required. | | | Heparin levels may be unreliable for: | | | Total bilirubin >6.6mg/dL | | | Triglycerides >360 mg/dL | | | or Moderate to Gross Hemolysis | | + + + + + + + + | Performing | Address | City/State/Zipcode | Phone Number | | Organization | | | | + + + + + | [facility] | [address] | [place] [address] | | | [place] | [address] | | | + + + + + UA, DIPSTICK ONLY (11/27/2012 1:49 AM PST) + + + + + [...] + + + + | SPECIFIC | 1.014 | 1.005 - 1.030 | [facility] | | | GRAVITY | | | [...] | + + + + + | [facility] | [address] | [place] [address] | | | SERVICES, CORE | [address] | | | + + + + + TRANSTHORACIC ECHOCARDIOGRAM, ADULT (11/27/2012 12:00 AM PST) + + + | Narrative | Performed At | + + + | | | | | | + + + + + | Procedure Note | + + | Diana Miller - 11/27/2012 1:42 PM PST | + + CAPILLARY BLOOD GLUCOSE (NO CHG), POC (11/26/2012 8:25 PM PST) + +---------+ + + + | Component | Value | Ref Range | Performed | Pathologist | | | | | At | Signature | + +---------+ + + + | BLOOD | 118 (H) | 60 - 99 mg/dL | [...] + | [facility] | [address] | [place], [place] | | | [facility] | [facility] | [id number] | | | TESTS | | | | + + + + + X-RAY CHEST 2 VIEW (11/26/2012 8:15 PM PST) + + + + + + | Component | Value | Ref Range | Performed | Pathologist | | | | | At | Signature | + + + + + + | CHEST, 2 | EXAM:PA and lateral | | | | | VIEWS OR | CHEST | | | | | STEREO | HISTORY:Preoperative | | | | | | evaluation. Coronary | | | | | | artery disease. | | | | | | COMPARISON:09/29/12 | | | | | | FINDINGS:Mild | | | | | | cardiomegaly as before. | | | | | | There is no pulmonary | | | | | | edema.There is no | | | | | | evidence for pneumonia. | | | | | | No pleural effusion is | | | | | | evident.No acute | | | | | | osseous abnormality is | | | | | | evident. IMPRESSION: | | | | | | Mild cardiomegaly, | | | | | | otherwise negative. | | | | | | Attending Radiologists: | | | | | | GURPREET CONLEY | | | | | | MDAuthor: GURPREET | | | | | | MD JARVIS I have | | | | | | personally viewed this | | | | | | procedure/exam, reviewed | | | | | | this report,and made | | | | | | changes to it where | | | | | | appropriate. | | | | | | Final/Electronically | | | | | | signed / GURPREET | | | | | | JARVIS 11/27/2012 8:07 | | | | | | AM | | | | + + [...] | | | + +---------+ + + CBC AND AUTO DIFF (11/26/2012 7:55 PM PST) + + + + + + | Component | Value | Ref Range | Performed | Pathologist | | | | | At | Signature | + + + + + + | WBC COUNT | 7.2 | 4.4 - 11.0 K/cu | [facility] | | | | | mm | LABORATORY | | | | | | SERVICES, | | | | | | CORE | | + + + + + + | RED CELL | 4.27 (L) | 4.50 - 5.90 | [facility] | | | COUNT | | M/cu mm | LABORATORY | | | | | | SERVICES, | | | | | | CORE | | + + + + + + | HEMOGLOBIN | 13.4 (L) | 13.5 - 17.5 | [facility] | | | | | g/dL | LABORATORY | | | | | | SERVICES, | | | | | | CORE | | + + + + + + | HEMATOCRIT | 38.7 (L) | 41.0 - 53.0 % | [facility] | | | | | | LABORATORY | | | | | | SERVICES, | | | | | | CORE | | + + + + + + | MCV | 90.6 | 80.0 - 96.0 fL | [facility] | | | | | | LABORATORY | | | | | | SERVICES, | | | | | | CORE | | + + + + + + | MCHC | 34.7 | 33.4 - 35.5 | [facility] | | | | | g/dL | LABORATORY | | | | | | SERVICES, | | | | | | CORE | | + + + + + + | RDW | 14.0 | 11.5 - 15.0 % | [facility] | | | | | | LABORATORY | | | | | | SERVICES, | | | | | | CORE | | + + + + + + | PLATELET | 206 | 150 - 400 K/cu | [facility] | | | COUNT | | mm | LABORATORY | | | | | | SERVICES, | | | | | | CORE | | + + + + + + | NEUTROPHIL | 64 | 50 - 70 % | [facility] | | | % | | | LABORATORY | | | | | | SERVICES, | | | | | | CORE | | + + + + + + | LYMPHOCYTE | 23 | 18 - 42 % | [facility] | | | % | | | LABORATORY | | | | | | SERVICES, | | | | | | CORE | | + + + + + + | MONOCYTE % | 9 (H) | 2 - 8 % | [facility] | | | | | | LABORATORY | | | | | | SERVICES, | | | | | | CORE | | + + + + + + | EOS % | 3 | 1 - 3 % | [facility] | | | | | | LABORATORY | | | | | | SERVICES, | | | | | | CORE | | + + + + + + | BASO % | 1 | 0 - 2 % | [facility] | | | | | | LABORATORY | | | | | | SERVICES, | | | | | | CORE | | + + + + + + | NEUTROPHIL | 4.6 | 1.8 - 7.7 K/cu | [facility] | | | # | | mm | LABORATORY | | | | | | SERVICES, | | | | | | CORE | | + + + + + + | LYMPHOCYTE | 1.7 | 1.0 - 4.8 K/cu | [facility] | | | # | | mm | LABORATORY | | | | | | SERVICES, | | | | | | CORE | | + + + + + + | MONOCYTE # | 0.7 | 0.0 - 0.8 K/cu | [facility] | | | | | mm | LABORATORY | | | | | | SERVICES, | | | | | | CORE | | + + + + + + | EOS # | 0.2 | 0.0 - 0.5 K/cu | [facility] | | | | | mm | LABORATORY | | | | | | SERVICES, | | | | | | CORE | | + + + + + + | BASO # | 0.0 | 0.0 - 0.1 K/cu | [facility] | | | | | mm | [...] | + + + + + | [facility] | [address] | [place] [address] | | | SERVICES, CORE | [address] | | | + + + + + RENAL FUNCTION SET (NA,K,CL,CO2,BUN,CREAT,GLUC,CA,PHOS,ALB ) (11/26/2012 7:55 PM PST) + + + + + + | Component | Value | Ref Range | Performed | Pathologist | | | | | At | Signature | + + + + + + | GLUCOSE, | 115 (H) | 60 - 99 mg/dL | [facility] | | | PLASMA | | | LABORATORY | | | (LAB) | | | SERVICES, | | | | | | CORE | | + + + + + + | BUN, PLASMA | 50 (H) | 6 - 20 mg/dL | [facility] | | | (LAB) | | | LABORATORY | | | | | | SERVICES, | | | | | | CORE | | + + + + + + | CREATININE | 2.45 (H) | 0.70 - 1.30 | [facility] | | | PLASMA | | mg/dL | LABORATORY | | | (LAB) | | | SERVICES, | | | | | | CORE | | + + + + + + | SODIUM, | 145 | 136 - 145 | [facility] | | | PLASMA | | mmol/L | LABORATORY | | | (LAB) | | | SERVICES, | | | | | | CORE | | + + + + + + | POTASSIUM, | 4.4 | 3.4 - 5.0 | [facility] | | | PLASMA | | mmol/L | LABORATORY | | | (LAB) | | | SERVICES, | | | | | | CORE | | + + + + + + | CHLORIDE, | 109 (H) | 97 - 108 mmol/L | [facility] | | | PLASMA | | | LABORATORY | | | (LAB) | | | SERVICES, | | | | | | CORE | | + + + + + + | TOTAL CO2, | 27 | 21 - 32 mmol/L | [facility] [...] + + + + | ALBUMIN, | 3.8 | 3.5 - 4.7 g/dL | [facility] | | | PLASMA | | | LABORATORY | | | (LAB) | | | SERVICES, | | | | | | CORE | | + + + + + + | PHOSPHORUS, | 4.1 | 2.4 - 4.7 mg/dL | [facility] | | | PLASMA [...] + + + + | ANION | 9 | 4 - 11 mmol/L [...] + | [facility] | [address] | [place] [address] | | | SERVICES, CORE | [address] | | | + + + + + APTT (ACT. PART. THROMBO TIME) (11/26/2012 7:55 PM PST) + +-------+ + + + | Component | Value | Ref Range | Performed | Pathologist | | | | | At | Signature | + +-------+ + + + | APTT | 33.9 | 26.0 - 36.0 | [facility] | [...] + | [facility] | [address] | [place] [address] | | | [place] | [address] | | | + + + + + INR (11/26/2012 7:55 PM PST) + + + + + + | Component | Value | Ref Range | Performed | Pathologist | | | | | At | Signature | + + + + + + | INR | 1.94 (H) | 0.90 - 1.20 INR | [...] + | [facility] | [address] | [place] [address] | | | [place] | [address] | | | + + + + + HEMOGLOBIN A1C, BLOOD (11/26/2012 7:55 PM PST) + + + + + + | Component | Value | Ref Range | Performed | Pathologist | | | | | At | Signature | + + + + + + | HEMOGLOBIN | 6.2 (H)Comment: Hgb A1c | <=5.6 % | [facility] - | | | A1C | Interpretive Information | | [facility] - | | | | If you are | | [facility] | | | | screening for diabetes: [...] + | [facility] - | [address] | [place] [address] | | | [place] | | | | + + + + + ORDERS OTHER (11/26/2012 12:00 AM PST) + + + | Narrative | Performed At | + + + | | | | | | + + + + + | Procedure Note | + + | Diana Miller - 01/15/2013 11:22 AM PDT | + + UMBERTO MILLER (11/26/2012 12:00 AM PST) + + + | Narrative | Performed At | + + + | | | | | | + + + + + | Procedure Note | + + | Diana Miller - 12/27/2012 10:32 AM PDT | + + documented in this encounter Visit Diagnoses + + | Diagnosis | + + | Coronary artery disease - Primary Coronary atherosclerosis of unspecified type of | | vessel, little river or graft | + + documented in this encounter Administered Medications + +--------+ +--------+------+------+ | Medication Order | MAR | Action | Dose | Rate | Site | | | Action | Date | | | | + +--------+ +--------+------+------+ | acetaminophen (aka TYLENOL) | Given | 12/01/19 | 650 mg | | | | oral suspension 650 mg 650 mg, | | 13 2:38 | | | | | feeding tube, EVERY 4 HOURS | | AM PST | | | | | NEEDED, Starting Tue11/29/12 at | | | | | | | 2109, Until Tue11/30/12 at 0313, | | | | | | | mild pain, fever | | | | | | + +--------+ +--------+------+------+ +-------+ +--------+---+---+ | Given | 11/30/19 | 650 mg | | | | | 13 11:02 | | | | | | PM PST | | | | +-------+ +--------+---+---+ +---+---+ | | | +---+---+ + +-------+ +--------+---+---+ | acetaminophen (aka TYLENOL) | Given | 12/21/19 | 650 mg | | | | oral suspension 650 mg 650 mg, | | 13 8:46 | | | | | oral, EVERY 6 HOURS, First dose | | AM PDT | | | | | on Tue12/19/12 at 2300, Until | | | | | | | Discontinued | | | | | | + +-------+ +--------+---+---+ +-------+ +--------+---+---+ | Given | 12/21/19 | 650 mg | | | | | 13 4:40 | | | | | | AM PDT | | | | +-------+ +--------+---+---+ | Given | 12/20/19 | 650 mg | | | | | 13 11:38 | | | | | | PM PDT | | | | +-------+ +--------+---+---+ +---+---+ | | | +---+---+ + +-------+ +--------+---+---+ | acetaminophen (aka TYLENOL) | Given | 12/05/19 | 650 mg | | | | tablet 650 mg 650 mg, oral, | | 13 8:11 | | | | | EVERY 4 HOURS, First dose (after | | AM PDT | | | | | last modification) on [facility] 11/30/12 | | | | | | | at 0645, Until Discontinued | | | | | | + +-------+ +--------+---+---+ +-------+ +--------+---+---+ | Given | 12/04/19 | 650 mg | | | | | 13 8:45 | | | | | | PM PDT | | | | +-------+ +--------+---+---+ | Given | 12/04/19 | 650 mg | | | | | 13 12:54 | | | | | | PM PDT | | | | +-------+ +--------+---+---+ +---+---+ | | | +---+---+ + +-------+ +--------+---+---+ | acetaminophen (aka TYLENOL) | Given | 12/20/19 | 650 mg | | | | tablet 650 mg 650 mg, feeding | | 13 5:11 | | | | | tube, EVERY 6 HOURS, First dose | | PM PDT | | | | | on Tue12/13/12 at 0030, Until | | | | | | | Discontinued | | | | | | + +-------+ +--------+---+---+ +-------+ +--------+---+---+ | Given | 12/20/19 | 650 mg | | | | | 13 10:04 | | | | | | AM PDT | | | | +-------+ +--------+---+---+ | Given | 12/20/19 | 650 mg | | | | | 13 4:30 | | | | | | AM PDT | | | | +-------+ +--------+---+---+ +---+---+ | | | +---+---+ + +-------+ +--------+---+---+ | acetaminophen (aka TYLENOL) | Given | 12/23/19 | 650 mg | | | | tablet 650 mg 650 mg, oral, | | 13 6:05 | | | | | EVERY 4 HOURS WHILE AWAKE, First | | PM PDT | | | | | dose on Tue12/20/12 at 2000, | | | | | | | Until Discontinued | | | | | | + +-------+ +--------+---+---+ +-------+ +--------+---+---+ | Given | 12/23/19 | 650 mg | | | | | 13 10:24 | | | | | | AM PDT | | | | +-------+ +--------+---+---+ | Given | 12/22/19 | 650 mg | | | | | 13 8:02 | | | | | | PM PDT | | | | +-------+ +--------+---+---+ +---+---+ | | | +---+---+ + +---------+ +--------+--------+---+ | albumin human (aka BUMINATE, | New Bag | 11/30/19 | 12.5 g | mL/hr | | | FLEXBUMIN) 5 % injection 12.5 g | | 13 10:30 | | | | | 12.5 g (250 mL), intravenous, TWO | | PM PST | | | | | TIMES POST CARDIAC SURGERY PRN, | | | | | | | Starting 11/29/12 at 1628, | | | | | | | Until [facility] 11/30/12 at 0427 | | | | | | + +---------+ +--------+--------+---+ +---------+ +--------+--------+---+ | New Bag | 11/30/19 | 12.5 g | mL/hr | | | | 13 10:00 | | | | | | PM PST | | | | +---------+ +--------+--------+---+ +---+---+ | | | +---+---+ + +---------+ +--------+--------+---+ | albumin human (aka BUMINATE, | New Bag | 11/30/19 | 12.5 g | mL/hr | | | FLEXBUMIN) 5 % injection 12.5 g | | 13 10:59 | | | | | 12.5 g, intravenous, NEEDED, | | PM PST | | | | | Starting [facility] 11/29/12 at 2109, | | | | | | | Until [facility] 11/30/12 at 0531, | | | | | | | hemodynamic instability | | | | | | + +---------+ +--------+--------+---+ +---+---+ | | | +---+---+ + +---------+ +--------+--------+---+ | albumin human (aka BUMINATE, | New Bag | 12/01/19 | 12.5 g | mL/hr | | | FLEXBUMIN) 5 % injection 12.5 g | | 13 11:16 | | | | | 12.5 g, intravenous, ONCE, 1 | | PM PST | | | | | dose, [facility] 11/30/12 at 2330 | | | | | | + +---------+ +--------+--------+---+ +---+---+ | | | +---+---+ + +---------+ +--------+--------+---+ | albumin human (aka BUMINATE, | New Bag | 12/12/19 | 12.5 g | mL/hr | | | FLEXBUMIN) 5 % injection 12.5 g | | 13 11:06 | | | | | 12.5 g, intravenous, ONCE, 1 | | AM PDT | | | | | dose, [facility] 12/11/12 at 1130 | | | | | | + +---------+ +--------+--------+---+ +---+---+ | | | +---+---+ + +---------+ +--------+---+---+ | albumin human (karthikeyan BUMINATE, | New Bag | 12/05/19 | 250 mL | | | | FLEXBUMIN) 5 % injection | | 13 5:36 | | | | | NEEDED CONTINUOUS, Starting Mon | | PM PDT | | | | | 12/04/12 at 1736, Until Mon | | | | | | | 12/04/12 at 1736 | | | | | | + +---------+ +--------+---+---+ +---+---+ | | | +---+---+ + +-------+ +---------+---+---+ | albuterol (mandopam PROVENTIL, | Given | 12/07/19 | 4 puffs | | | | VENTOLIN) 90 mcg/actuation | | 13 9:58 | | | | | inhaler 4 Puff 4 puff, | | PM PDT | | | | | inhalation, ONCE, 1 dose, Wed | | | | | | | 12/06/12 at 2230 | | | | | | + +-------+ +---------+---+---+ +---+---+ | | | +---+---+ + +-------+ +--------+---+---+ | albuterol 0.083% (aka | Given | 12/05/19 | 2.5 mg | | | | PROVENTIL,VENTOLIN) 2.5 mg /3 mL | | 13 12:32 | | | | | (0.083 %) nebulizer solution 2.5 | | PM PDT | | | | | mg 2.5 mg, inhalation, EVERY 6 | | | | | | | HOURS NEEDED, Starting Mon | | | | | | | 12/04/12 at 1154, Until Mon | | | | | | | 12/04/12 at 1719, dyspnea/SOB | | | | | | + +-------+ +--------+---+---+ +---+---+ | | | +---+---+ + + + +-------+---+---+ | aluminum hydroxide (aka | See OB | 12/12/19 | 30 mL | | | | AMPHOJEL) 320 mg/5 mL suspension | TraceVue | 13 10:32 | | | | | 30 mL 30 mL, feeding tube, EVERY | | AM PDT | | | | | 6 HOURS, First dose on Mary | | | | | | | 12/07/12 at 1600, Until | | | | | | | Discontinued | | | | | | + + + +-------+---+---+ +-------+ +-------+---+---+ | Given | 12/12/19 | 30 mL | | | | | 13 3:39 | | | | | | AM PDT | | | | +-------+ +-------+---+---+ | Given | 12/11/19 | 30 mL | | | | | 13 8:39 | | | | | | PM PDT | | | | +-------+ +-------+---+---+ + +---+ | | | + +---+ | amiodarone (aka CORDARONE) IV | | | 1 dose, Starting 12/09/12 at | | | 1410, Until 12/09/12 at 1415 | | + +---+ | | | + +---+ + +-------+ +--------+---+---+ | amiodarone (aka CORDARONE) | Given | 12/12/19 | 200 mg | | | | tablet 200 mg 200 mg, oral, | | 13 8:58 | | | | | TWICE DAILY, First dose on Sun | | AM PDT | | | | | 12/10/12 at 1100, Until | | | | | | | Discontinued | | | | | | + +-------+ +--------+---+---+ +-------+ +--------+---+---+ | Given | 12/11/19 | 200 mg | | | | | 13 8:39 | | | | | | PM PDT | | | | +-------+ +--------+---+---+ | Given | 12/11/19 | 200 mg | | | | | 13 11:00 | | | | | | AM PDT | | | | +-------+ +--------+---+---+ +---+---+ | | | +---+---+ + +-------+ +--------+---+---+ | amiodarone (aka CORDARONE) | Given | 12/13/19 | 200 mg | | | | tablet 200 mg 200 mg, feeding | | 13 9:06 | | | | | tube, TWICE DAILY, First dose | | AM PDT | | | | | (after last modification) on Tue | | | | | | | 12/11/12 at 2100, Until | | | | | | | Discontinued | | | | | | + +-------+ +--------+---+---+ +-------+ +--------+---+---+ | Given | 12/12/19 | 200 mg | | | | | 13 10:24 | | | | | | PM PDT | | | | +-------+ +--------+---+---+ +---+---+ | | | +---+---+ + +-------+ +--------+---+---+ | amiodarone (aka CORDARONE) | Given | 12/14/19 | 200 mg | | | | tablet 200 mg 200 mg, oral, | | 13 9:06 | | | | | TWICE DAILY, First dose (after | | AM PDT | | | | | last modification) on Tue12/12/12 | | | | | | | at 2100, Until Discontinued | | | | | | + +-------+ +--------+---+---+ +-------+ +--------+---+---+ | Given | 12/13/19 | 200 mg | | | | | 13 10:00 | | | | | | PM PDT | | | | +-------+ +--------+---+---+ +---+---+ | | | +---+---+ + +-------+ +--------+---+---+ | amiodarone (aka CORDARONE) | Given | 12/21/19 | 200 mg | | | | tablet 200 mg 200 mg, feeding | | 13 8:46 | | | | | tube, TWICE DAILY, First dose | | AM PDT | | | | | (after last modification) on Tue | | | | | | | 12/13/12 at 2100, Until | | | | | | | Discontinued | | | | | | + +-------+ +--------+---+---+ +-------+ +--------+---+---+ | Given | 12/20/19 | 200 mg | | | | | 13 9:06 | | | | | | PM PDT | | | | +-------+ +--------+---+---+ | Given | 12/20/19 | 200 mg | | | | | 13 10:04 | | | | | | AM PDT | | | | +-------+ +--------+---+---+ +---+---+ | | | +---+---+ + +-------+ +--------+---+---+ | amiodarone (aka CORDARONE) | Given | 12/23/19 | 200 mg | | | | tablet 200 mg 200 mg, oral, | | 13 10:24 | | | | | TWICE DAILY, First dose (after | | AM PDT | | | | | last modification) on Tue12/20/12 | | | | | | | at 2100, Until Discontinued | | | | | | + +-------+ +--------+---+---+ +-------+ +--------+---+---+ | Given | 12/22/19 | 200 mg | | | | | 13 8:06 | | | | | | PM PDT | | | | +-------+ +--------+---+---+ | Given | 12/22/19 | 200 mg | | | | | 13 9:30 | | | | | | AM PDT | | | | +-------+ +--------+---+---+ +---+---+ | | | +---+---+ + +-------+ +--------+---+---+ | amiodarone (aka CORDARONE) | Given | 11/29/19 | 400 mg | | | | tablet 400 mg 400 mg, oral, | | 13 8:14 | | | | | DAILY, First dose on 11/27/12 | | AM PST | | | | | at 0900, Until Discontinued | | | | | | + +-------+ +--------+---+---+ +-------+ +--------+---+---+ | Given | 11/28/19 | 400 mg | | | | | 13 8:36 | | | | | | AM PST | | | | +-------+ +--------+---+---+ +---+---+ | | | +---+---+ + + + +--------+--------+---+ | amiodarone 1.8 mg/mL in | Rate/Dos | 12/10/19 | 0.5 | 16.67 | | | dextrose 5% IV infusion 0.5-1 | e Change | 13 9:00 | mg/min | mL/hr | | | mg/min (rounded to 16.67-33.33 | | PM PDT | | | | | mL/hr), intravenous, CONTINUOUS, | | | | | | | Starting 12/09/12 at 1445, | | | | | | | Until 12/11/12 at 0427 | | | | | | + + + +--------+--------+---+ +---------+ + +--------+---+ | New Bag | 12/10/19 | 1 mg/min | 33.33 | | | | 13 2:44 | | mL/hr | | | | PM PDT | | | | +---------+ + +--------+---+ +---+---+ | | | +---+---+ + +---------+ +--------+--------+---+ | amiodarone IV (loading dose) | New Bag | 12/10/19 | 150 mg | mL/hr | | | 150 mg, intravenous, ONCE, | | 13 2:15 | | | | | dose, 12/09/12 at 1445 | | PM PDT | | | | + +---------+ +--------+--------+---+ +---+---+ | | | +---+---+ + +---------+ +--------+--------+---+ | antithrombin III human (aka | New Bag | 12/08/19 | 2,990 | mL/hr | | | THROMBATE III) IV 2,990 Units | | 13 11:34 | Units | | | | 2,990 Units, intravenous, ONCE, 1 | | AM PDT | | | | | dose, Mary 12/07/12 at 1045 | | | | | | + +---------+ +--------+--------+---+ +---+---+ | | | +---+---+ + +-------+ +-------+---+---+ | aspirin chewable tablet 81 mg | Given | 12/12/19 | 81 mg | | | | 81 mg, oral, DAILY, First dose on | | 13 9:00 | | | | | Mary 11/30/12 at 0900, Until | | AM PDT | | | | | Discontinued | | | | | | + +-------+ +-------+---+---+ +-------+ +-------+---+---+ | Given | 12/11/19 | 81 mg | | | | | 13 9:36 | | | | | | AM PDT | | | | +-------+ +-------+---+---+ | Given | 12/10/19 | 81 mg | | | | | 13 9:35 | | | | | | AM PDT | | | | +-------+ +-------+---+---+ +---+---+ | | | +---+---+ + +-------+ +-------+---+---+ | aspirin chewable tablet 81 mg | Given | 12/13/19 | 81 mg | | | | 81 mg, feeding tube, DAILY, First | | 13 9:06 | | | | | dose (after last modification) | | AM PDT | | | | | on Tue12/12/12 at 0900, Until | | | | | | | Discontinued | | | | | | + +-------+ +-------+---+---+ +---+---+ | | | +---+---+ + +-------+ +-------+---+---+ | aspirin chewable tablet 81 mg | Given | 12/14/19 | 81 mg | | | | 81 mg, oral, DAILY, First dose | | 13 9:06 | | | | | (after last modification) on Tue | | AM PDT | | | | | 12/13/12 at 0900, Until | | | | | | | Discontinued | | | | | | + +-------+ +-------+---+---+ +---+---+ | | | +---+---+ + +-------+ +-------+---+---+ | aspirin chewable tablet 81 mg | Given | 12/21/19 | 81 mg | | | | 81 mg, feeding tube, DAILY, First | | 13 8:46 | | | | | dose (after last modification) | | AM PDT | | | | | on Mary 12/14/12 at 0900, Until | | | | | | | Discontinued | | | | | | + +-------+ +-------+---+---+ +-------+ +-------+---+---+ | Given | 12/20/19 | 81 mg | | | | | 13 10:04 | | | | | | AM PDT | | | | +-------+ +-------+---+---+ | Given | 12/19/19 | 81 mg | | | | | 13 9:20 | | | | | | AM PDT | | | | +-------+ +-------+---+---+ +---+---+ | | | +---+---+ + +-------+ +-------+---+---+ | aspirin chewable tablet 81 mg | Given | 12/23/19 | 81 mg | | | | 81 mg, oral, DAILY, First dose | | 13 10:23 | | | | | (after last modification) on [facility] | | AM PDT | | | | | 12/21/12 at 0900, Until | | | | | | | Discontinued | | | | | | + +-------+ +-------+---+---+ +-------+ +-------+---+---+ | Given | 12/22/19 | 81 mg | | | | | 13 9:30 | | | | | | AM PDT | | | | +-------+ +-------+---+---+ +---+---+ | | | +---+---+ + +-------+ +--------+---+---+ | aspirin tablet 325 mg 325 mg, | Given | 11/30/19 | 325 mg | | | | oral, DAILY, First dose on Tue | | 13 8:46 | | | | | 11/27/12 at 0900, Until | | AM PST | | | | | Discontinued | | | | | | + +-------+ +--------+---+---+ +-------+ +--------+---+---+ | Given | 11/29/19 | 325 mg | | | | | 13 8:16 | | | | | | AM PST | | | | +-------+ +--------+---+---+ | Given | 11/28/19 | 325 mg | | | | | 13 8:35 | | | | | | AM PST | | | | +-------+ +--------+---+---+ +---+---+ | | | +---+---+ + +-------+ +-------+---+---+ | bisacodyl (aka DULCOLAX) | Given | 12/12/19 | 10 mg | | | | suppository 10 mg 10 mg, rectal, | | 13 4:00 | | | | | TWICE DAILY NEEDED, Starting | | PM PDT | | | | | 11/29/12 at 2109, Until Sat | | | | | | | 12/23/12 at 0035, constipation, No | | | | | | | BM in past 3 days | | | | | | + +-------+ +-------+---+---+ +---+---+ | | | +---+---+ + +---------+ +---------+--------+---+ | bumetanide (aka BUMEX) | New Bag | 12/02/19 | 0.13 mg | mL/hr | | | injection 0.13 mg 0.13 mg (0.125 | | 13 7:53 | | | | | mg), intravenous, ONCE, 1 dose, | | AM PST | | | | | 12/01/12 at 0815 | | | | | | + +---------+ +---------+--------+---+ +---+---+ | | | +---+---+ + +---------+ +---------+--------+---+ | bumetanide (aka BUMEX) | New Bag | 12/02/19 | 0.25 mg | mL/hr | | | injection 0.25 mg 0.25 mg, | | 13 12:32 | | | | | intravenous, ONCE, 1 dose, Fri | | PM PST | | | | | 12/01/12 at 1245 | | | | | | + +---------+ +---------+--------+---+ +---+---+ | | | +---+---+ + +---------+ +--------+--------+---+ | bumetanide (aka BUMEX) | New Bag | 12/02/19 | 0.5 mg | mL/hr | | | injection 0.5 mg 0.5 mg, | | 13 3:15 | | | | | intravenous, ONCE, 1 dose, Fri | | PM PST | | | | | 12/01/12 at 1515 | | | | | | + +---------+ +--------+--------+---+ +---+---+ | | | +---+---+ + +---------+ +--------+--------+---+ | bumetanide (aka BUMEX) | New Bag | 12/03/19 | 0.5 mg | mL/hr | | | injection 0.5 mg 0.5 mg, | | 13 9:00 | | | | | intravenous, EVERY 12 HOURS, | | AM PST | | | | | First dose on Tue12/01/12 at 2100, | | | | | | | Until Discontinued | | | | | | + +---------+ +--------+--------+---+ +---------+ +--------+--------+---+ | New Bag | 12/02/19 | 0.5 mg | mL/hr | | | | 13 8:53 | | | | | | PM PST | | | | +---------+ +--------+--------+---+ +---+---+ | | | +---+---+ + +---------+ +--------+--------+---+ | bumetanide (aka BUMEX) | New Bag | 12/04/19 | 0.5 mg | mL/hr | | | injection 0.5 mg 0.5 mg, | | 13 8:06 | | | | | intravenous, DAILY, First dose | | AM PDT | | | | | (after last modification) on Sun | | | | | | | 12/03/12 at 0900, Until | | | | | | | Discontinued | | | | | | + +---------+ +--------+--------+---+ +---+---+ | | | +---+---+ + +---------+ +------+--------+---+ | bumetanide (aka BUMEX) | New Bag | 12/05/19 | 1 mg | mL/hr | | | injection 1 mg 1 mg, | | 13 10:06 | | | | | intravenous, ONCE, 1 dose, Mon | | AM PDT | | | | | 12/04/12 at 1030 | | | | | | + +---------+ +------+--------+---+ +---+---+ | | | +---+---+ + +---------+ +-------+---+---+ | calcium chloride 10 % (100 | New Bag | 12/05/19 | 0.5 g | | | | mg/mL) injection NEEDED | | 13 5:31 | | | | | CONTINUOUS, Starting Tue12/04/12 | | PM PDT | | | | | at 1635, Until Tue12/04/12 at | | | | | | | 1731 | | | | | | + +---------+ +-------+---+---+ +---------+ +-------+---+---+ | New Bag | 12/05/19 | 0.5 g | | | | | 13 5:03 | | | | | | PM PDT | | | | +---------+ +-------+---+---+ | New Bag | 12/05/19 | 1 g | | | | | 13 4:35 | | | | | | PM PDT | | | | +---------+ +-------+---+---+ +---+---+ | | | +---+---+ + +---------+ +-----+--------+---+ | calcium chloride IV 1 g 1 g, | New Bag | 11/30/19 | 1 g | mL/hr | | | intravenous, NEEDED, Starting | | 13 10:35 | | | | | 11/29/12 at 2109, Until Fri | | PM PST | | | | | 12/01/12 at 0737, hypocalcemia (iCa | | | | | | | less than 1.15) | | | | | | + +---------+ +-----+--------+---+ +---+---+ | | | +---+---+ + +---------+ +-------+--------+---+ | cefUROXime (aka ZINACEF) IV 1.5 | New Bag | 12/01/19 | 1.5 g | mL/hr | | | g 1.5 g, intravenous, EVERY 8 | | 13 1:47 | | | | | HOURS, 2 doses, First dose on Mary | | PM PST | | | | | 11/30/12 at 0400, Last dose on Mary | | | | | | | 11/30/12 at 1200 | | | | | | + +---------+ +-------+--------+---+ +---------+ +-------+--------+---+ | New Bag | 12/01/19 | 1.5 g | mL/hr | | | | 13 3:49 | | | | | | AM PST | | | | +---------+ +-------+--------+---+ +---+---+ | | | +---+---+ + +-------+ +-------+---+---+ | chlorhexidine (aka PERIDEX) | Given | 12/03/19 | 15 mL | | | | mouthwash 15 mL 15 mL, oral, | | 13 9:01 | | | | | TWICE DAILY, 6 doses, First dose | | AM PST | | | | | on 11/29/12 at 2245, Last dose | | | | | | | on 12/02/12 at 0900 | | | | | | + +-------+ +-------+---+---+ +-------+ +-------+---+---+ | Given | 12/02/19 | 15 mL | | | | | 13 8:53 | | | | | | PM PST | | | | +-------+ +-------+---+---+ | Given | 12/02/19 | 15 mL | | | | | 13 7:54 | | | | | | AM PST | | | | +-------+ +-------+---+---+ +---+---+ | | | +---+---+ + +-------+ +-------+---+---+ | chlorhexidine (aka PERIDEX) | Given | 12/13/19 | 15 mL | | | | mouthwash 15 mL 15 mL, oral, | | 13 9:06 | | | | | EVERY 6 HOURS, First dose on Mon | | AM PDT | | | | | 12/04/12 at 2200, Until | | | | | | | Discontinued | | | | | | + +-------+ +-------+---+---+ +-------+ +-------+---+---+ | Given | 12/13/19 | 15 mL | | | | | 13 4:04 | | | | | | AM PDT | | | | +-------+ +-------+---+---+ | Given | 12/12/19 | 15 mL | | | | | 13 10:25 | | | | | | PM PDT | | | | +-------+ +-------+---+---+ +---+---+ | | | +---+---+ + +-------+ +-------+---+---+ | chlorhexidine (aka PERIDEX) | Given | 12/16/19 | 15 mL | | | | mouthwash 15 mL 15 mL, oral, | | 13 8:26 | | | | | TWICE DAILY, 6 doses, First dose | | AM PDT | | | | | (after last modification) on Tue | | | | | | | 12/12/12 at 2100, Last dose on Tue | | | | | | | 12/15/12 at 0900 | | | | | | + +-------+ +-------+---+---+ +-------+ +-------+---+---+ | Given | 12/15/19 | 15 mL | | | | | 13 10:22 | | | | | | PM PDT | | | | +-------+ +-------+---+---+ | Given | 12/15/19 | 15 mL | | | | | 13 8:13 | | | | | | AM PDT | | | | +-------+ +-------+---+---+ +---+---+ | | | +---+---+ + +---------+ +---+--------+---+ | CRRT dialysate fluid for | New Bag | 12/13/19 | | mL/hr | | | HEPARIN anticoagulation (aka | | 13 10:00 | | | | | PRISMASATE) (WITH Calcium) | | AM PDT | | | | | intravenous, CONTINUOUS, Starting | | | | | | | 12/10/12 at 1445, Until Tue | | | | | | | 12/13/12 at 0649 | | | | | | + +---------+ +---+--------+---+ +---------+ +---+-------+---+ | New Bag | 12/12/19 | | 1600 | | | | 13 11:52 | | mL/hr | | | | PM PDT | | | | +---------+ +---+-------+---+ | New Bag | 12/12/19 | | 1600 | | | | 13 8:25 | | mL/hr | | | | PM PDT | | | | +---------+ +---+-------+---+ +---+---+ | | | +---+---+ + +---------+ +---+--------+---+ | CRRT replacement fluid (aka | New Bag | 12/13/19 | | mL/hr | | | PRISMASOL BGK2/0) (POST-FILTER) | | 13 11:51 | | | | | (WITH Calcium) intravenous, | | AM PDT | | | | | CONTINUOUS, Starting 12/10/12 | | | | | | | at 1445, Until Tue12/13/12 at | | | | | | | 0649 | | | | | | + +---------+ +---+--------+---+ +---------+ +---+--------+---+ | New Bag | 12/12/19 | | mL/hr | | | | 13 5:17 | | | | | | PM PDT | | | | +---------+ +---+--------+---+ | New Bag | 12/12/19 | | mL/hr | | | | 13 1:10 | | | | | | PM PDT | | | | +---------+ +---+--------+---+ +---+---+ | | | +---+---+ + +---------+ +---+-------+---+ | CRRT replacement fluid (aka | New Bag | 12/13/19 | | 1400 | | | PRISMASOL BGK2/0) (PRE-FILTER) | | 13 4:06 | | mL/hr | | | (WITH Calcium) intravenous, | | AM PDT | | | | | CONTINUOUS, Starting 12/10/12 | | | | | | | at 1445, Until 12/13/12 at | | | | | | | 0649 | | | | | | + +---------+ +---+-------+---+ +---------+ +---+-------+---+ | New Bag | 12/13/19 | | 1400 | | | | 13 12:18 | | mL/hr | | | | AM PDT | | | | +---------+ +---+-------+---+ | New Bag | 12/12/19 | | 1400 | | | | 13 8:40 | | mL/hr | | | | PM PDT | | | | +---------+ +---+-------+---+ +---+---+ | | | +---+---+ + +---------+ + + +---+ | dextrose 5% IV 75 mL/hr, | New Bag | 12/11/19 | 75 mL/hr | 75 mL/hr | | | intravenous, CONTINUOUS, Starting | | 13 11:00 | | | | | 12/10/12 at 1130, Until Fri | | AM PDT | | | | | 12/15/12 at 1242 | | | | | | + +---------+ + + +---+ +---+---+ | | | +---+---+ + +---------+ + + +---+ | dextrose 5%-NaCl 0.45% IV | New Bag | 12/02/19 | 25 mL/hr | 25 mL/hr | | | infusion 25 mL/hr, intravenous, | | 13 8:13 | | | | | CONTINUOUS, Starting 11/29/12 | | AM PST | | | | | at 2130, Until 12/04/12 at | | | | | | | 0729 | | | | | | + +---------+ + + +---+ + + + + +---+ | Rate/Dose Change | 12/01/19 | 25 mL/hr | 25 mL/hr | | | | 13 3:00 | | | | | | AM PST | | | | + + + + +---+ | Rate/Dose Change | 12/01/19 | 50 mL/hr | 50 mL/hr | | | | 13 2:00 | | | | | | AM PST | | | | + + + + +---+ +---+---+ | | | +---+---+ + +---------+ + + +---+ | dextrose 5%-NaCl 0.45% IV | New Bag | 12/11/19 | 25 mL/hr | 25 mL/hr | | | infusion 25 mL/hr, intravenous, | | 13 5:00 | | | | | CONTINUOUS, Starting 12/05/12 | | AM PDT | | | | | at 1315, Until 12/10/12 at | | | | | | | 0626 | | | | | | + +---------+ + + +---+ + + + + +---+ | Rate/Dose Change | 12/09/19 | 25 mL/hr | 25 mL/hr | | | | 13 11:00 | | | | | | PM PDT | | | | + + + + +---+ | Rate/Dose Change | 12/09/19 | 50 mL/hr | 50 mL/hr | | | | 13 10:00 | | | | | | PM PDT | | | | + + + + +---+ +---+---+ | | | +---+---+ + +---------+ +-------+-------+---+ | dextrose 5%-NaCl 0.45% IV | New Bag | 12/09/19 | 150 | 150 | | | infusion 0-150 mL/hr, | | 13 6:30 | mL/hr | mL/hr | | | intravenous, CONTINUOUS, Starting | | AM PDT | | | | | 12/08/12 at 0645, Until Fri | | | | | | | 12/08/12 at 0737 | | | | | | + +---------+ +-------+-------+---+ +---+---+ | | | +---+---+ + + + + + +---+ | dextrose 5%-NaCl 0.45% IV | Rate/Dos | 12/11/19 | 10 mL/hr | 10 mL/hr | | | infusion 10 mL/hr, intravenous, | e Change | 13 6:30 | | | | | CONTINUOUS, Starting [place] 12/10/12 | | AM PDT | | | | | at 0630, Until 12/10/12 at | | | | | | | 1308 | | | | | | + + + + + +---+ +---+---+ | | | +---+---+ + +-------+ +----+---+---+ | docusate sodium liquid 50 mg | Given | 12/13/19 | mg | | | | 50 mg, feeding tube, TWICE DAILY, | | 13 9:07 | | | | | First dose on [facility] 12/07/12 at | | AM PDT | | | | | 1315, Until Discontinued | | | | | | + +-------+ +----+---+---+ +-------+ +-------+---+---+ | Given | 12/12/19 | 50 mg | | | | | 13 10:25 | | | | | | PM PDT | | | | +-------+ +-------+---+---+ | Given | 03/18/20 | 50 mg | | | | | 13 8:58 | | | | | | AM PDT | | | | +-------+ +-------+---+---+ +---+---+ | | | +---+---+ + +-------+ +-------+---+---+ | docusate sodium liquid 50 mg | Given | 12/21/19 | 50 mg | | | | 50 mg, feeding tube, TWICE DAILY, | | 13 8:46 | | | | | First dose on Tue12/13/12 at | | AM PDT | | | | | 2100, Until Discontinued | | | | | | + +-------+ +-------+---+---+ +-------+ +-------+---+---+ | Given | 12/20/19 | 50 mg | | | | | 13 9:06 | | | | | | PM PDT | | | | +-------+ +-------+---+---+ | Given | 12/20/19 | 50 mg | | | | | 13 10:03 | | | | | | AM PDT | | | | +-------+ +-------+---+---+ +---+---+ | | | +---+---+ + +-------+ +----+---+---+ | docusate sodium liquid 50 mg | Given | 12/23/19 | mg | | | | 50 mg, oral, TWICE DAILY, First | | 13 10:51 | | | | | dose (after last modification) on | | AM PDT | | | | | 12/20/12 at 2100, Until | | | | | | | Discontinued | | | | | | + +-------+ +----+---+---+ +---+---+ | | | +---+---+ + +---------+ + +-------+---+ | EPINEPHrine in NS IV infusion 5 | New Bag | 12/01/19 | 0.02 | 8.98 | | | mg/250 mL (0.02 mg/mL) 0.02 | | 13 9:50 | mcg/kg/m | mL/hr | | | mcg/kg/min | | PM PST | in | | | | 149.6 kg Dosing weight (rounded | | | | | | | to 8.98 mL/hr), intravenous, | | | | | | | CONTINUOUS, Starting Mary 11/30/12 | | | | | | | at 0545, Until Mary 11/30/12 at 2250 | | | | | | + +---------+ + +-------+---+ +---+---+ | | | +---+---+ + + + + +-------+---+ | EPINEPHrine in NS IV infusion 5 | Rate/Dos | 12/02/19 | 0.01 | 4.49 | | | mg/250 mL (0.02 mg/mL) 0.01 | e Change | 13 12:00 | mcg/kg/m | mL/hr | | | mcg/kg/min | | AM PST | in | | | | 149.6 kg Dosing weight (rounded | | | | | | | to 4.49 mL/hr), intravenous, | | | | | | | CONTINUOUS, Starting Tue11/30/12 | | | | | | | at 2300, Until Tue12/01/12 at 1811 | | | | | | + + + + +-------+---+ + + + +-------+---+ | Rate/Dose Change | 12/01/19 | 0.01 | 4.49 | | | | 13 11:13 | mcg/kg/m | mL/hr | | | | PM PST | in | | | + + + +-------+---+ +---+---+ | | | +---+---+ + + + + +--------+---+ | EPINEPHrine in NS IV infusion 5 | Rate/Dos | 12/05/19 | 0.06 | 26.93 | | | mg/250 mL (0.02 mg/mL) | e Change | 13 5:17 | mcg/kg/m | mL/hr | | | intravenous, NEEDED | | PM PDT | in | | | | CONTINUOUS, Starting Tue12/04/12 | | | | | | | at 1642, Until Tue12/04/12 at | | | | | | | 1642 | | | | | | + + + + +--------+---+ + + + +--------+---+ | Rate/Dose Change | 12/05/19 | 0.08 | 35.9 | | | | 13 5:11 | mcg/kg/m | mL/hr | | | | PM PDT | in | | | + + + +--------+---+ | Rate/Dose Change | 12/05/19 | 0.13 | 58.34 | | | | 13 5:08 | mcg/kg/m | mL/hr | | | | PM PDT | in | | | + + + +--------+---+ +---+---+ | | | +---+---+ + +---------+ + +--------+---+ | EPINEPHrine in NS IV infusion 5 | New Bag | 12/05/19 | 0.06 | 26.93 | | | mg/250 mL (0.02 mg/mL) 0.06 | | 13 6:00 | mcg/kg/m | mL/hr | | | mcg/kg/min | | PM PDT | in | | | | 149.6 kg Dosing weight (rounded | | | | | | | to 26.93 mL/hr), intravenous, | | | | | | | CONTINUOUS, Starting Tue12/04/12 | | | | | | | at 1915, Until Tue12/04/12 at | | | | | | | 2133 | | | | | | + +---------+ + +--------+---+ +---+---+ | | | +---+---+ + +---------+ + +--------+---+ | EPINEPHrine in NS IV infusion 5 | New Bag | 12/06/19 | 0.05 | 22.44 | | | mg/250 mL (0.02 mg/mL) 0.05 | | 13 5:41 | mcg/kg/m | mL/hr | | | mcg/kg/min | | AM PDT | in | | | | 149.6 kg Dosing weight (rounded | | | | | | | to 22.44 mL/hr), intravenous, | | | | | | | CONTINUOUS, Starting Tue12/04/12 | | | | | | | at 2145, Until Tue12/05/12 at | | | | | | | 0807 | | | | | | + +---------+ + +--------+---+ + + + +--------+---+ | Rate/Dose Change | 12/05/19 | 0.05 | 22.44 | | | | 13 10:00 | mcg/kg/m | mL/hr | | | | PM PDT | in | | | + + + +--------+---+ +---+---+ | | | +---+---+ + + + + +--------+---+ | EPINEPHrine in NS IV infusion 5 | Rate/Dos | 12/06/19 | 0.03 | 13.46 | | | mg/250 mL (0.02 mg/mL) 0.04 | e Change | 13 8:00 | mcg/kg/m | mL/hr | | | mcg/kg/min | | PM PDT | in | | | | 149.6 kg Dosing weight (rounded | | | | | | | to 17.95 mL/hr), intravenous, | | | | | | | CONTINUOUS, Starting 12/05/12 | | | | | | | at 0815, Until e 12/05/12 at | | | | | | | 2200 | | | | | | + + + + +--------+---+ + + + +--------+---+ | New Bag | 12/06/19 | 0.04 | 17.95 | | | | 13 7:19 | mcg/kg/m | mL/hr | | | | PM PDT | in | | | + + + +--------+---+ | Rate/Dose Change | 12/06/19 | 0.03 | 13.46 | | | | 13 5:00 | mcg/kg/m | mL/hr | | | | PM PDT | in | | | + + + +--------+---+ +---+---+ | | | +---+---+ + +---------+ + +-------+---+ | EPINEPHrine in NS IV infusion 5 | New Bag | 12/06/19 | 0.03 | 14.4 | | | mg/250 mL (0.02 mg/mL) 0.04 | | 13 10:19 | mcg/kg/m | mL/hr | | | mcg/kg/min | | PM PDT | in | | | | 160 kg Order-specific weight | | | | | | | (rounded to 19.2 mL/hr), | | | | | | | intravenous, CONTINUOUS, Starting | | | | | | | 12/05/12 at 2215, Until Wed | | | | | | | 12/06/12 at 0812 | | | | | | + +---------+ + +-------+---+ + + + +-------+---+ | Rate/Dose Change | 12/06/19 | 0.03 | 14.4 | | | | 13 10:00 | mcg/kg/m | mL/hr | | | | PM PDT | in | | | + + + +-------+---+ +---+---+ | | | +---+---+ + + + + +-------+---+ | EPINEPHrine in NS IV infusion 5 | Rate/Dos | 12/07/19 | 0.02 | 9.6 | | | mg/250 mL (0.02 mg/mL) 0.02 | e Change | 13 9:00 | mcg/kg/m | mL/hr | | | mcg/kg/min | | AM PDT | in | | | | 160 kg Order-specific weight | | | | | | | (rounded to 9.6 mL/hr), | | | | | | | intravenous, CONTINUOUS, Starting | | | | | | | 12/06/12 at 0815, Until Wed | | | | | | | 12/06/12 at 1327 | | | | | | + + + + +-------+---+ +---+---+ | | | +---+---+ + +---------+ + +-------+---+ | EPINEPHrine in NS IV infusion 5 | New Bag | 12/11/19 | 0.03 | 14.4 | | | mg/250 mL (0.02 mg/mL) 0.03 | | 13 5:00 | mcg/kg/m | mL/hr | | | mcg/kg/min | | AM PDT | in | | | | 160 kg Order-specific weight | | | | | | | (rounded to 14.4 mL/hr), | | | | | | | intravenous, CONTINUOUS, Starting | | | | | | | 12/06/12 at 1330, Until Sun | | | | | | | 12/10/12 at 1055 | | | | | | + +---------+ + +-------+---+ + + + +-------+---+ | Rate/Dose Change | 12/10/19 | 0.03 | 14.4 | | | | 13 2:00 | mcg/kg/m | mL/hr | | | | PM PDT | in | | | + + + +-------+---+ | New Bag | 12/10/19 | 0.03 | 14.4 | | | | 13 11:10 | mcg/kg/m | mL/hr | | | | AM PDT | in | | | + + + +-------+---+ +---+---+ | | | +---+---+ + +---------+ + +-------+---+ | EPINEPHrine in NS IV infusion 5 | New Bag | 12/11/19 | 0.02 | 9.6 | | | mg/250 mL (0.02 mg/mL) 0.02 | | 13 2:00 | mcg/kg/m | mL/hr | | | mcg/kg/min | | PM PDT | in | | | | 160 kg Order-specific weight | | | | | | | (rounded to 9.6 mL/hr), | | | | | | | intravenous, CONTINUOUS, Starting | | | | | | | 12/10/12 at 1100, Until Mon | | | | | | | 12/11/12 at 0929 | | | | | | + +---------+ + +-------+---+ +---------+ + +-------+---+ | New Bag | 12/11/19 | 0.02 | 9.6 | | | | 13 11:00 | mcg/kg/m | mL/hr | | | | AM PDT | in | | | +---------+ + +-------+---+ +---+---+ | | | +---+---+ + +---------+ + +-------+---+ | EPINEPHrine in NS IV infusion 5 | New Bag | 12/12/19 | 0.01 | 4.8 | | | mg/250 mL (0.02 mg/mL) 0.01 | | 13 5:49 | mcg/kg/m | mL/hr | | | mcg/kg/min | | PM PDT | in | | | | 160 kg Order-specific weight | | | | | | | (rounded to 4.8 mL/hr), | | | | | | | intravenous, CONTINUOUS, Starting | | | | | | | 12/11/12 at 0930, Until Tue | | | | | | | 12/12/12 at 0815 | | | | | | + +---------+ + +-------+---+ + + + +-------+---+ | Rate/Dose Change | 12/12/19 | 0.01 | 4.8 | | | | 13 9:46 | mcg/kg/m | mL/hr | | | | AM PDT | in | | | + + + +-------+---+ +---+---+ | | | +---+---+ + +---------+ +--------+---+---+ | EPINEPHrine injection | New Bag | 12/05/19 | 0.2 mg | | | | NEEDED CONTINUOUS, Starting Tue | | 13 4:44 | | | | | 12/04/12 at 1719, Until Mon | | PM PDT | | | | | 12/04/12 at 1644 | | | | | | + +---------+ +--------+---+---+ +---+---+ | | | +---+---+ + +-------+ + +---+---+ | EPINEPHrine IV infusion 1 | Given | 12/05/19 | mcg/kg/m | | | | dose, Starting Tue12/04/12 at | | 13 6:28 | in | | | | 1520, Until Tue12/04/12 at 1828 | | PM PDT | | | | + +-------+ + +---+---+ +---+---+ | | | +---+---+ + +-------+ +--------+---+---+ | fentaNYL citrate (PF) (aka | Given | 12/11/19 | 50 mcg | | | | SUBLIMAZE) injection 100-250 mcg | | 13 3:00 | | | | | 100-250 mcg, intravenous, ONCE, | | PM PDT | | | | | 1 dose, [place] 12/10/12 at 1515 | | | | | | + +-------+ +--------+---+---+ +---+---+ | | | +---+---+ + +---------+ +--------+--------+---+ | fentaNYL citrate (PF) (aka | New Bag | 12/08/19 | 50 mcg | mL/hr | | | SUBLIMAZE) injection 25-100 mcg | | 13 6:28 | | | | | 25-100 mcg, intravenous, EVERY 1 | | AM PDT | | | | | HOUR NEEDED, Starting Mon | | | | | | | 12/04/12 at 1836, Until Mary | | | | | | | 12/07/12 at 0600, moderate pain | | | | | | + +---------+ +--------+--------+---+ +---------+ +---------+--------+---+ | New Bag | 12/08/19 | 50 mcg | mL/hr | | | | 13 4:17 | | | | | | AM PDT | | | | +---------+ +---------+--------+---+ | New Bag | 12/08/19 | 100 mcg | mL/hr | | | | 13 3:02 | | | | | | AM PDT | | | | +---------+ +---------+--------+---+ +---+---+ | | | +---+---+ + +-------+ +--------+---+---+ | fentaNYL citrate (PF) (aka | Given | 12/05/19 | 50 mcg | | | | SUBLIMAZE) injection 1 dose, | | 13 2:15 | | | | | Starting Tue12/04/12 at 1403, | | PM PDT | | | | | Until Tue12/04/12 at 1415 | | | | | | + +-------+ +--------+---+---+ +---+---+ | | | +---+---+ + +-------+ +--------+---+---+ | fentaNYL citrate (PF) (aka | Given | 12/05/19 | 50 mcg | | | | SUBLIMAZE) injection 1 dose, | | 13 6:28 | | | | | Starting Tue12/04/12 at 1642, | | PM PDT | | | | | Until Tue12/04/12 at 1828 | | | | | | + +-------+ +--------+---+---+ +---+---+ | | | +---+---+ + +---------+ +---------+---+---+ | fentaNYL citrate (PF) (aka | New Bag | 12/05/19 | 250 mcg | | | | SUBLIMAZE) injection NEEDED | | 13 4:54 | | | | | CONTINUOUS, Starting Tue12/04/12 | | PM PDT | | | | | at 1723, Until Tue12/04/12 at | | | | | | | 1654, moderate pain | | | | | | + +---------+ +---------+---+---+ +---------+ +---------+---+---+ | New Bag | 12/05/19 | 250 mcg | | | | | 13 4:45 | | | | | | PM PDT | | | | +---------+ +---------+---+---+ +---+---+ | | | +---+---+ + +-------+ +------+---+---+ | folic acid (aka FOLVITE) tablet | Given | 12/13/19 | 1 mg | | | | 1 mg 1 mg, feeding tube, DAILY, | | 13 9:07 | | | | | First dose on Tue12/04/12 at | | AM PDT | | | | | 2000, Until Discontinued | | | | | | + +-------+ +------+---+---+ +-------+ +------+---+---+ | Given | 12/12/19 | 1 mg | | | | | 13 8:58 | | | | | | AM PDT | | | | +-------+ +------+---+---+ | Given | 12/11/19 | 1 mg | | | | | 13 9:00 | | | | | | AM PDT | | | | +-------+ +------+---+---+ +---+---+ | | | +---+---+ + +-------+ +------+---+---+ | folic acid (aka FOLVITE) tablet | Given | 12/14/19 | 1 mg | | | | 1 mg 1 mg, oral, DAILY, First | | 13 9:06 | | | | | dose (after last modification) on | | AM PDT | | | | | 12/13/12 at 0900, Until | | | | | | | Discontinued | | | | | | + +-------+ +------+---+---+ +---+---+ | | | +---+---+ + +-------+ +------+---+---+ | folic acid (aka FOLVITE) tablet | Given | 12/21/19 | 1 mg | | | | 1 mg 1 mg, feeding tube, DAILY, | | 13 8:47 | | | | | First dose (after last | | AM PDT | | | | | modification) on [facility] 12/14/12 at | | | | | | | 0900, Until Discontinued | | | | | | + +-------+ +------+---+---+ +-------+ +------+---+---+ | Given | 12/20/19 | 1 mg | | | | | 13 10:04 | | | | | | AM PDT | | | | +-------+ +------+---+---+ | Given | 12/19/19 | 1 mg | | | | | 13 9:20 | | | | | | AM PDT | | | | +-------+ +------+---+---+ +---+---+ | | | +---+---+ + +-------+ +------+---+---+ | folic acid (aka FOLVITE) tablet | Given | 12/23/19 | 1 mg | | | | 1 mg 1 mg, oral, DAILY, First | | 13 10:24 | | | | | dose (after last modification) on | | AM PDT | | | | | [facility] 12/21/12 at 0900, Until | | | | | | | Discontinued | | | | | | + +-------+ +------+---+---+ +-------+ +------+---+---+ | Given | 12/22/19 | 1 mg | | | | | 13 9:30 | | | | | | AM PDT | | | | +-------+ +------+---+---+ +---+---+ | | | +---+---+ + +---------+ +-------+--------+---+ | furosemide (aka LASIX) | New Bag | 12/07/19 | 20 mg | mL/hr | | | injection 20 mg 20 mg, | | 13 10:30 | | | | | intravenous, ONCE, 1 dose, Wed | | PM PDT | | | | | 12/06/12 at 2230 | | | | | | + +---------+ +-------+--------+---+ +---+---+ | | | +---+---+ + +---------+ +-------+--------+---+ | furosemide (aka LASIX) IV 80 mg | New Bag | 12/05/19 | 80 mg | mL/hr | | | 80 mg, intravenous, ONCE, 1 | | 13 11:04 | | | | | dose, 12/04/12 at 2215 | | PM PDT | | | | + +---------+ +-------+--------+---+ +---+---+ | | | +---+---+ + +-------+ +-------+---+---+ | furosemide (aka LASIX) tablet | Given | 11/30/19 | 20 mg | | | | 20 mg 20 mg, oral, DAILY, First | | 13 8:47 | | | | | dose on Tue11/27/12 at 1115, Until | | AM PST | | | | | Discontinued | | | | | | + +-------+ +-------+---+---+ +-------+ +-------+---+---+ | Given | 11/29/19 | 20 mg | | | | | 13 8:15 | | | | | | AM PST | | | | +-------+ +-------+---+---+ | Given | 11/28/19 | 20 mg | | | | | 13 9:58 | | | | | | AM PST | | | | +-------+ +-------+---+---+ +---+---+ | | | +---+---+ + + + +---------+-------+---+ | furosemide 2 mg/mL in NaCl 0.9 | Rate/Dos | 12/06/19 | 5 mg/hr | 2.5 | | | % IV infusion 1-20 mg/hr | e Change | 13 10:00 | | mL/hr | | | (rounded to 0.5-10 mL/hr), | | AM PDT | | | | | intravenous, CONTINUOUS, Starting | | | | | | | 12/04/12 at 2215, Until Fri | | | | | | | 12/08/12 at 0737 | | | | | | + + + +---------+-------+---+ + + + +---------+---+ | New Bag | 12/06/19 | 10 mg/hr | 5 mL/hr | | | | 13 9:00 | | | | | | AM PDT | | | | + + + +---------+---+ | Rate/Dose Change | 12/06/19 | 10 mg/hr | 5 mL/hr | | | | 13 8:00 | | | | | | AM PDT | | | | + + + +---------+---+ +---+---+ | | | +---+---+ + + + + +---------+---+ | furosemide 5 mg/mL in NaCl 0.9 | Bolus | 12/10/19 | 10 mg/hr | 2 mL/hr | | | % IV infusion 1-10 mg/hr | from | 13 11:17 | | | | | (rounded to 0.2-2 mL/hr), | Same Bag | PM PDT | | | | | intravenous, CONTINUOUS, Starting | | | | | | | 12/09/12 at 1845, Until Mon | | | | | | | 12/11/12 at 0427 | | | | | | + + + + +---------+---+ + + + +---------+---+ | Rate/Dose Change | 12/10/19 | 10 mg/hr | 2 mL/hr | | | | 13 11:00 | | | | | | PM PDT | | | | + + + +---------+---+ | Rate/Dose Change | 12/10/19 | 7.5 | 1.5 | | | | 13 8:30 | mg/hr | mL/hr | | | | PM PDT | | | | + + + +---------+---+ +---+---+ | | | +---+---+ + +-------+ +------+---+---+ | glutamine (aka GLUTASOLVE) | Given | 12/13/19 | 15 g | | | | packet 15 g 15 g, feeding tube, | | 13 9:07 | | | | | THREE TIMES DAILY, First dose on | | AM PDT | | | | | 12/09/12 at 1115, Until | | | | | | | Discontinued | | | | | | + +-------+ +------+---+---+ +-------+ +------+---+---+ | Given | 12/12/19 | 15 g | | | | | 13 10:25 | | | | | | PM PDT | | | | +-------+ +------+---+---+ | Given | 12/12/19 | 15 g | | | | | 13 4:07 | | | | | | PM PDT | | | | +-------+ +------+---+---+ +---+---+ | | | +---+---+ + +-------+ +------+---+---+ | glutamine (aka GLUTASOLVE) | Given | 12/13/19 | 15 g | | | | packet 15 g 15 g, oral, THREE | | 13 10:00 | | | | | TIMES DAILY, First dose (after | | PM PDT | | | | | last modification) on Tue12/12/12 | | | | | | | at 1600, Until Discontinued | | | | | | + +-------+ +------+---+---+ +-------+ +------+---+---+ | Given | 12/13/19 | 15 g | | | | | 13 5:49 | | | | | | PM PDT | | | | +-------+ +------+---+---+ +---+---+ | | | +---+---+ + +---------+ +------+--------+---+ | haloperidol lactate (aka | New Bag | 12/18/19 | 2 mg | mL/hr | | | HALDOL) injection 2 mg 2 mg, | | 13 6:10 | | | | | intravenous, ONCE, 1 dose, Sun | | AM PDT | | | | | 12/17/12 at 0600 | | | | | | + +---------+ +------+--------+---+ +---+---+ | | | +---+---+ + +---------+ +--------+--------+---+ | haloperidol lactate (aka | New Bag | 12/05/19 | 2.5 mg | mL/hr | | | HALDOL) injection 2.5 mg 2.5 mg, | | 13 1:25 | | | | | intravenous, EVERY 8 HOURS | | AM PDT | | | | | NEEDED, Starting 12/04/12 at | | | | | | | 0055, Until Tue12/08/12 at 0559, | | | | | | | agitation, prn agitation | | | | | | + +---------+ +--------+--------+---+ +---+---+ | | | +---+---+ + + + +---------+--------+---+ | heparin bolus from continuous | Bolus | 11/27/19 | 10,000 | mL/hr | | | infusion 10,000 Units | from | 13 8:31 | Units | | | | intravenous, ONCE, 1 dose, Sun | Same Bag | PM PST | | | | | 11/26/12 at 2030 | | | | | | + + + +---------+--------+---+ +---+---+ | | | +---+---+ + + + + +-------+---+ | heparin in D5W IV infusion | Rate/Dos | 11/28/19 | 1,550 | 15.5 | | | 25,000 units/250 mL 1-3,500 | e Change | 13 6:26 | Units/hr | mL/hr | | | Units/hr (rounded to 0.01-35 | | AM PST | | | | | mL/hr), intravenous, CONTINUOUS, | | | | | | | Starting 11/26/12 at 2030, | | | | | | | Until Tue11/27/12 at 1346 | | | | | | + + + + +-------+---+ +---------+ + + +---+ | New Bag | 11/28/19 | 2,000 | 20 mL/hr | | | | 13 1:50 | Units/hr | | | | | AM PST | | | | +---------+ + + +---+ | New Bag | 11/27/19 | 2,000 | 20 mL/hr | | | | 13 8:30 | Units/hr | | | | | PM PST | | | | +---------+ + + +---+ +---+---+ | | | +---+---+ + +---------+ + + +---+ | heparin in D5W IV infusion | New Bag | 11/30/19 | 1,400 | 14 mL/hr | | | 25,000 units/250 mL 1,400 | | 13 2:31 | Units/hr | | | | Units/hr (rounded to 14 mL/hr), | | AM PST | | | | | intravenous, CONTINUOUS, Starting | | | | | | | 11/27/12 at 1400, Until Wed | | | | | | | 11/29/12 at 2110 | | | | | | + +---------+ + + +---+ +---------+ + + +---+ | New Bag | 11/29/19 | 1,400 | 14 mL/hr | | | | 13 9:33 | Units/hr | | | | | AM PST | | | | +---------+ + + +---+ | New Bag | 11/28/19 | 1,400 | 14 mL/hr | | | | 13 4:11 | Units/hr | | | | | PM PST | | | | +---------+ + + +---+ +---+---+ | | | +---+---+ + +---------+ + +---------+---+ | heparin in D5W IV infusion | New Bag | 12/01/19 | 500 | 5 mL/hr | | | 25,000 units/250 mL 500 Units/hr | | 13 5:30 | Units/hr | | | | (rounded to 5 mL/hr), | | PM PST | | | | | intravenous, CONTINUOUS, Starting | | | | | | | [facility] 11/30/12 at 1700, Until Fri | | | | | | | 12/01/12 at 0641 | | | | | | + +---------+ + +---------+---+ +---+---+ | | | +---+---+ + + + + +---------+---+ | heparin in D5W IV infusion | Rate/Dos | 12/02/19 | 700 | 7 mL/hr | | | 25,000 units/250 mL 700 Units/hr | e Change | 13 7:08 | Units/hr | | | | (rounded to 7 mL/hr), | | AM PST | | | | | intravenous, CONTINUOUS, Starting | | | | | | | 12/01/12 at 0645, Until Fri | | | | | | | 12/01/12 at 1404 | | | | | | + + + + +---------+---+ +---+---+ | | | +---+---+ + + + + +---------+---+ | heparin in D5W IV infusion | Rate/Dos | 12/02/19 | 900 | 9 mL/hr | | | 25,000 units/250 mL 900 Units/hr | e Change | 13 2:15 | Units/hr | | | | (rounded to 9 mL/hr), | | PM PST | | | | | intravenous, CONTINUOUS, Starting | | | | | | | 12/01/12 at 1415, Until Fri | | | | | | | 12/01/12 at 2339 | | | | | | + + + + +---------+---+ +---+---+ | | | +---+---+ + +---------+ + + +---+ | heparin in D5W IV infusion | New Bag | 12/02/19 | 1,100 | 11 mL/hr | | | 25,000 units/250 mL 1,100 | | 13 11:50 | Units/hr | | | | Units/hr (rounded to 11 mL/hr), | | PM PST | | | | | intravenous, CONTINUOUS, Starting | | | | | | | 12/01/12 at 2345, Until Sat | | | | | | | 12/02/12 at 0724 | | | | | | + +---------+ + + +---+ +---+---+ | | | +---+---+ + +---------+ + + +---+ | heparin in D5W IV infusion | New Bag | 12/04/19 | 1,300 | 13 mL/hr | | | 25,000 units/250 mL 1,300 | | 13 12:20 | Units/hr | | | | Units/hr (rounded to 13 mL/hr), | | AM PST | | | | | intravenous, CONTINUOUS, Starting | | | | | | | 12/02/12 at 0730, Until Sun | | | | | | | 12/03/12 at 1333 | | | | | | + +---------+ + + +---+ + + + + +---+ | Restarted | 12/03/19 | 1,300 | 13 mL/hr | | | | 13 1:00 | Units/hr | | | | | PM PST | | | | + + + + +---+ | Rate/Dose Change | 12/03/19 | 1,300 | 13 mL/hr | | | | 13 9:01 | Units/hr | | | | | AM PST | | | | + + + + +---+ +---+---+ | | | +---+---+ + + + + + +---+ | heparin in D5W IV infusion | Rate/Dos | 12/04/19 | 1,500 | 15 mL/hr | | | 25,000 units/250 mL 1,500 | e Change | 13 1:49 | Units/hr | | | | Units/hr (rounded to 15 mL/hr), | | PM PDT | | | | | intravenous, CONTINUOUS, Starting | | | | | | | 12/03/12 at 1345, Until Mon | | | | | | | 12/04/12 at 1030 | | | | | | + + + + + +---+ +---+---+ | | | +---+---+ + + + + + +---+ | heparin in D5W IV infusion | Restarte | 12/05/19 | 1,800 | 18 mL/hr | | | 25,000 units/250 mL 1,800 | d | 13 11:00 | Units/hr | | | | Units/hr (rounded to 18 mL/hr), | | AM PDT | | | | | intravenous, CONTINUOUS, Starting | | | | | | | 12/04/12 at 1045, Until Mon | | | | | | | 12/04/12 at 2141 | | | | | | + + + + + +---+ +---+---+ | | | +---+---+ + + + + +---------+---+ | heparin in D5W IV infusion | Rate/Dos | 12/06/19 | 500 | 5 mL/hr | | | 25,000 units/250 mL 500 Units/hr | e Change | 13 9:00 | Units/hr | | | | (rounded to 5 mL/hr), | | PM PDT | | | | | intravenous, CONTINUOUS, Starting | | | | | | | 12/05/12 at 1800, Until Wed | | | | | | | 12/06/12 at 0830 | | | | | | + + + + +---------+---+ + + + +---------+---+ | Rate/Dose Change | 12/06/19 | 500 | 5 mL/hr | | | | 13 8:00 | Units/hr | | | | | PM PDT | | | | + + + +---------+---+ | New Bag | 12/06/19 | 500 | 5 mL/hr | | | | 13 6:00 | Units/hr | | | | | PM PDT | | | | + + + +---------+---+ +---+---+ | | | +---+---+ + + + + +---------+---+ | heparin in D5W IV infusion | Restarte | 12/07/19 | 500 | 5 mL/hr | | | 25,000 units/250 mL 500 Units/hr | d | 13 9:00 | Units/hr | | | | (rounded to 5 mL/hr), | | AM PDT | | | | | intravenous, CONTINUOUS, Starting | | | | | | | 12/06/12 at 0845, Until Wed | | | | | | | 12/06/12 at 2215 | | | | | | + + + + +---------+---+ +---+---+ | | | +---+---+ + + + + +-------+---+ | heparin in D5W IV infusion | Rate/Dos | 12/07/19 | 750 | 7.5 | | | 25,000 units/250 mL 750 Units/hr | e Change | 13 10:31 | Units/hr | mL/hr | | | (rounded to 7.5 mL/hr), | | PM PDT | | | | | intravenous, CONTINUOUS, Starting | | | | | | | 12/06/12 at 2230, Until Mary | | | | | | | 12/07/12 at 0541 | | | | | | + + + + +-------+---+ +---+---+ | | | +---+---+ + +---------+ + +-------+---+ | heparin in D5W IV infusion | New Bag | 12/08/19 | 950 | 9.5 | | | 25,000 units/250 mL 950 Units/hr | | 13 1:15 | Units/hr | mL/hr | | | (rounded to 9.5 mL/hr), | | PM PDT | | | | | intravenous, CONTINUOUS, Starting | | | | | | | Mary 12/07/12 at 0545, Until Mary | | | | | | | 12/07/12 at 1336 | | | | | | + +---------+ + +-------+---+ + + + +-------+---+ | Rate/Dose Change | 12/08/19 | 950 | 9.5 | | | | 13 6:32 | Units/hr | mL/hr | | | | AM PDT | | | | + + + +-------+---+ +---+---+ | | | +---+---+ + +---------+ + +-------+---+ | heparin in D5W IV infusion | New Bag | 12/08/19 | 1,150 | 11.5 | | | 25,000 units/250 mL 1,150 | | 13 1:51 | Units/hr | mL/hr | | | Units/hr (rounded to 11.5 mL/hr), | | PM PDT | | | | | intravenous, CONTINUOUS, | | | | | | | Starting [facility] 12/07/12 at 1345, | | | | | | | Until [facility] 12/07/12 at 2 | | | | | | + +---------+ + +-------+---+ +---+---+ | | | +---+---+ + + + + +-------+---+ | heparin in D5W IV infusion | Rate/Dos | 12/08/19 | 1,350 | 13.5 | | | 25,000 units/250 mL 1,350 | e Change | 13 9:00 | Units/hr | mL/hr | | | Units/hr (rounded to 13.5 mL/hr), | | PM PDT | | | | | intravenous, CONTINUOUS, | | | | | | | Starting [facility] 12/07/12 at 2100, | | | | | | | Until 12/08/12 at 0317 | | | | | | + + + + +-------+---+ +---+---+ | | | +---+---+ + + + + + +---+ | heparin in D5W IV infusion | Rate/Dos | 12/09/19 | 1,500 | 15 mL/hr | | | 25,000 units/250 mL 1,500 | e Change | 13 3:30 | Units/hr | | | | Units/hr (rounded to 15 mL/hr), | | AM PDT | | | | | intravenous, CONTINUOUS, Starting | | | | | | | 12/08/12 at 0330, Until Fri | | | | | | | 12/08/12 at 0918 | | | | | | + + + + + +---+ +---+---+ | | | +---+---+ + + + + + +---+ | heparin in D5W IV infusion | Rate/Dos | 12/09/19 | 1,600 | 16 mL/hr | | | 25,000 units/250 mL 1,600 | e Change | 13 9:30 | Units/hr | | | | Units/hr (rounded to 16 mL/hr), | | AM PDT | | | | | intravenous, CONTINUOUS, Starting | | | | | | | 12/08/12 at 0930, Until Sat | | | | | | | 12/09/12 at 0931 | | | | | | + + + + + +---+ +---+---+ | | | +---+---+ + + + + + +---+ | heparin in D5W IV infusion | Restarte | 12/10/19 | 1,000 | 10 mL/hr | | | 25,000 units/250 mL 1,000 | d | 13 6:00 | Units/hr | | | | Units/hr (rounded to 10 mL/hr), | | PM PDT | | | | | intravenous, CONTINUOUS, Starting | | | | | | | 12/09/12 at 1800, Until Sun | | | | | | | 12/10/12 at 0220 | | | | | | + + + + + +---+ +---+---+ | | | +---+---+ + +---------+ + + +---+ | heparin in D5W IV infusion | New Bag | 12/11/19 | 1,200 | 12 mL/hr | | | 25,000 units/250 mL 1,200 | | 13 5:00 | Units/hr | | | | Units/hr (rounded to 12 mL/hr), | | AM PDT | | | | | intravenous, CONTINUOUS, Starting | | | | | | | 12/10/12 at 0230, Until Sun | | | | | | | 12/10/12 at 1055 | | | | | | + +---------+ + + +---+ + + + + +---+ | Rate/Dose Change | 12/11/19 | 1,200 | 12 mL/hr | | | | 13 2:20 | Units/hr | | | | | AM PDT | | | | + + + + +---+ +---+---+ | | | +---+---+ + +---------+ + + +---+ | heparin in D5W IV infusion | New Bag | 12/11/19 | 1,400 | 14 mL/hr | | | 25,000 units/250 mL 1,400 | | 13 5:42 | Units/hr | | | | Units/hr (rounded to 14 mL/hr), | | PM PDT | | | | | intravenous, CONTINUOUS, Starting | | | | | | | 12/10/12 at 1100, Until Mon | | | | | | | 12/11/12 at 0034 | | | | | | + +---------+ + + +---+ +---------+ + + +---+ | New Bag | 03/17/20 | 1,400 | 14 mL/hr | | | | 13 11:00 | Units/hr | | | | | AM PDT | | | | +---------+ + + +---+ +---+---+ | | | +---+---+ + + + + + +---+ | heparin in D5W IV infusion | Rate/Dos | 12/12/19 | 1,600 | 16 mL/hr | | | 25,000 units/250 mL 1,600 | e Verify | 13 12:37 | Units/hr | | | | Units/hr (rounded to 16 mL/hr), | | AM PDT | | | | | intravenous, CONTINUOUS, Starting | | | | | | | 12/11/12 at 0045, Until Mon | | | | | | | 12/11/12 at 0644 | | | | | | + + + + + +---+ +---+---+ | | | +---+---+ + +---------+ + + +---+ | heparin in D5W IV infusion | New Bag | 12/12/19 | 1,800 | 18 mL/hr | | | 25,000 units/250 mL 1,800 | | 13 10:31 | Units/hr | | | | Units/hr (rounded to 18 mL/hr), | | AM PDT | | | | | intravenous, CONTINUOUS, Starting | | | | | | | 12/11/12 at 0645, Until Mon | | | | | | | 12/11/12 at 1112 | | | | | | + +---------+ + + +---+ +---------+ + + +---+ | New Bag | 12/12/19 | 1,800 | 18 mL/hr | | | | 13 6:51 | Units/hr | | | | | AM PDT | | | | +---------+ + + +---+ +---+---+ | | | +---+---+ + +---------+ + + +---+ | heparin in D5W IV infusion | New Bag | 12/13/19 | 1,900 | 19 mL/hr | | | 25,000 units/250 mL 1,900 | | 13 12:00 | Units/hr | | | | Units/hr (rounded to 19 mL/hr), | | PM PDT | | | | | intravenous, CONTINUOUS, Starting | | | | | | | 12/11/12 at 1115, Until Tue | | | | | | | 12/12/12 at 1433 | | | | | | + +---------+ + + +---+ +---------+ + + +---+ | New Bag | 12/12/19 | 1,900 | 19 mL/hr | | | | 13 10:46 | Units/hr | | | | | PM PDT | | | | +---------+ + + +---+ | New Bag | 12/12/19 | 1,900 | 19 mL/hr | | | | 13 11:20 | Units/hr | | | | | AM PDT | | | | +---------+ + + +---+ +---+---+ | | | +---+---+ + +---------+ + + +---+ | heparin in D5W IV infusion | New Bag | 12/13/19 | 2,000 | 20 mL/hr | | | 25,000 units/250 mL 2,000 | | 13 11:30 | Units/hr | | | | Units/hr (rounded to 20 mL/hr), | | PM PDT | | | | | intravenous, CONTINUOUS, Starting | | | | | | | 12/12/12 at 1445, Until Wed | | | | | | | 12/13/12 at 0449 | | | | | | + +---------+ + + +---+ + + + + +---+ | Rate/Dose Change | 12/13/19 | 2,000 | 20 mL/hr | | | | 13 3:00 | Units/hr | | | | | PM PDT | | | | + + + + +---+ +---+---+ | | | +---+---+ + +---------+ + + +---+ | heparin in D5W IV infusion | New Bag | 12/14/19 | 2,100 | 21 mL/hr | | | 25,000 units/250 mL 2,100 | | 13 12:00 | Units/hr | | | | Units/hr (rounded to 21 mL/hr), | | PM PDT | | | | | intravenous, CONTINUOUS, Starting | | | | | | | 12/13/12 at 0500, Until Wed | | | | | | | 12/13/12 at 1526 | | | | | | + +---------+ + + +---+ + + + + +---+ | Rate/Dose Change | 12/14/19 | 2,100 | 21 mL/hr | | | | 13 5:18 | Units/hr | | | | | AM PDT | | | | + + + + +---+ +---+---+ | | | +---+---+ + +---------+ + +---------+---+ | heparin in D5W IV infusion | New Bag | 12/15/19 | 500 | 5 mL/hr | | | 25,000 units/250 mL 500 Units/hr | | 13 2:22 | Units/hr | | | | (rounded to 5 mL/hr), | | PM PDT | | | | | intravenous, CONTINUOUS, Starting | | | | | | | Mary 12/14/12 at 1345, Until Mary | | | | | | | 12/14/12 at 2319 | | | | | | + +---------+ + +---------+---+ +---+---+ | | | +---+---+ + +---------+ + +---------+---+ | heparin in D5W IV infusion | New Bag | 12/15/19 | 700 | 7 mL/hr | | | 25,000 units/250 mL 700 Units/hr | | 13 11:58 | Units/hr | | | | (rounded to 7 mL/hr), | | PM PDT | | | | | intravenous, CONTINUOUS, Starting | | | | | | | [facility] 12/14/12 at 2330, Until Fri | | | | | | | 12/15/12 at 0615 | | | | | | + +---------+ + +---------+---+ +---+---+ | | | +---+---+ + + + + +---------+---+ | heparin in D5W IV infusion | Rate/Dos | 12/16/19 | 900 | 9 mL/hr | | | 25,000 units/250 mL 900 Units/hr | e Change | 13 6:31 | Units/hr | | | | (rounded to 9 mL/hr), | | AM PDT | | | | | intravenous, CONTINUOUS, Starting | | | | | | | 12/15/12 at 0630, Until Fri | | | | | | | 12/15/12 at 1459 | | | | | | + + + + +---------+---+ +---+---+ | | | +---+---+ + +---------+ + + +---+ | heparin in D5W IV infusion | New Bag | 12/16/19 | 1,100 | 11 mL/hr | | | 25,000 units/250 mL 1,100 | | 13 8:19 | Units/hr | | | | Units/hr (rounded to 11 mL/hr), | | PM PDT | | | | | intravenous, CONTINUOUS, Starting | | | | | | | 12/15/12 at 1500, Until Sat | | | | | | | 12/16/12 at 0802 | | | | | | + +---------+ + + +---+ + + + + +---+ | Rate/Dose Change | 12/16/19 | 1,100 | 11 mL/hr | | | | 13 3:00 | Units/hr | | | | | PM PDT | | | | + + + + +---+ +---+---+ | | | +---+---+ + +---------+ + + +---+ | heparin in D5W IV infusion | New Bag | 12/18/19 | 1,200 | 12 mL/hr | | | 25,000 units/250 mL 1,200 | | 13 9:57 | Units/hr | | | | Units/hr (rounded to 12 mL/hr), | | PM PDT | | | | | intravenous, CONTINUOUS, Starting | | | | | | | 12/16/12 at 0815, Until Mon | | | | | | | 12/18/12 at 0732 | | | | | | + +---------+ + + +---+ +---------+ + + +---+ | New Bag | 12/17/19 | 1,200 | 12 mL/hr | | | | 13 9:45 | Units/hr | | | | | PM PDT | | | | +---------+ + + +---+ | New Bag | 12/17/19 | 1,200 | 12 mL/hr | | | | 13 8:06 | Units/hr | | | | | AM PDT | | | | +---------+ + + +---+ +---+---+ | | | +---+---+ + +---------+ + + +---+ | heparin in D5W IV infusion | New Bag | 12/19/19 | 1,300 | 13 mL/hr | | | 25,000 units/250 mL 1,300 | | 13 10:40 | Units/hr | | | | Units/hr (rounded to 13 mL/hr), | | PM PDT | | | | | intravenous, CONTINUOUS, Starting | | | | | | | 12/18/12 at 0745, Until Tue | | | | | | | 12/19/12 at 0754 | | | | | | + +---------+ + + +---+ +---------+ + + +---+ | New Bag | 12/19/19 | 1,300 | 13 mL/hr | | | | 13 7:45 | Units/hr | | | | | AM PDT | | | | +---------+ + + +---+ +---+---+ | | | +---+---+ + +---------+ + + +---+ | heparin in D5W IV infusion | New Bag | 12/20/19 | 1,600 | 16 mL/hr | | | 25,000 units/250 mL 1,600 | | 13 7:30 | Units/hr | | | | Units/hr (rounded to 16 mL/hr), | | PM PDT | | | | | intravenous, CONTINUOUS, Starting | | | | | | | 12/19/12 at 0800, Until Tue | | | | | | | 12/19/12 at 2109 | | | | | | + +---------+ + + +---+ + + + + +---+ | Rate/Dose Change | 12/20/19 | 1,600 | 16 mL/hr | | | | 13 10:00 | Units/hr | | | | | AM PDT | | | | + + + + +---+ +---+---+ | | | +---+---+ + +---------+ + + +---+ | heparin in D5W IV infusion | New Bag | 12/22/19 | 1,800 | 18 mL/hr | | | 25,000 units/250 mL 1,800 | | 13 2:50 | Units/hr | | | | Units/hr (rounded to 18 mL/hr), | | AM PDT | | | | | intravenous, CONTINUOUS, Starting | | | | | | | 12/19/12 at 2115, Until Mary | | | | | | | 12/21/12 at 0737 | | | | | | + +---------+ + + +---+ + + + + +---+ | New Bag | 12/21/19 | 1,800 | 18 mL/hr | | | | 13 8:44 | Units/hr | | | | | AM PDT | | | | + + + + +---+ | Rate/Dose Change | 12/20/19 | 1,800 | 18 mL/hr | | | | 13 10:47 | Units/hr | | | | | PM PDT | | | | + + + + +---+ +---+---+ | | | +---+---+ + +-------+ +--------+---+---+ | heparin injection 5,000 Units | Given | 12/01/19 | 5,000 | | | | 5,000 Units, subcutaneous, EVERY | | 13 11:36 | Units | | | | 8 HOURS, First dose on Tue11/30/12 | | AM PST | | | | | at 0400, Until Discontinued | | | | | | + +-------+ +--------+---+---+ +-------+ +--------+---+---+ | Given | 12/01/19 | 5,000 | | | | | 13 3:48 | Units | | | | | AM PST | | | | +-------+ +--------+---+---+ +---+---+ | | | +---+---+ + +---------+ +--------+--------+---+ | HYDROmorphone (aka DILAUDID) | New Bag | 12/05/19 | 0.5 mg | mL/hr | | | injection 0.2-0.5 mg 0.2-0.5 mg, | | 13 12:22 | | | | | intravenous, EVERY 2 HOURS | | AM PDT | | | | | NEEDED, Starting [facility] 11/30/12 at | | | | | | | 0312, Until Tue12/04/12 at 1836, | | | | | | | moderate pain | | | | | | + +---------+ +--------+--------+---+ +---------+ +--------+--------+---+ | New Bag | 12/04/19 | 0.5 mg | mL/hr | | | | 13 9:50 | | | | | | AM PDT | | | | +---------+ +--------+--------+---+ | New Bag | 12/02/19 | 0.2 mg | mL/hr | | | | 13 5:49 | | | | | | AM PST | | | | +---------+ +--------+--------+---+ +---+---+ | | | +---+---+ + +---------+ +--------+--------+---+ | HYDROmorphone (aka DILAUDID) | New Bag | 12/13/19 | 0.3 mg | mL/hr | | | injection 0.2-1 mg 0.2-1 mg, | | 13 3:49 | | | | | intravenous, EVERY 1 HOUR | | AM PDT | | | | | NEEDED, Starting Tue12/07/12 at | | | | | | | 0600, Until Tue12/15/12 at 1319, | | | | | | | moderate pain | | | | | | + +---------+ +--------+--------+---+ +---------+ +--------+--------+---+ | New Bag | 12/12/19 | 0.2 mg | mL/hr | | | | 13 11:04 | | | | | | PM PDT | | | | +---------+ +--------+--------+---+ | New Bag | 12/12/19 | 0.2 mg | mL/hr | | | | 13 6:03 | | | | | | PM PDT | | | | +---------+ +--------+--------+---+ +---+---+ | | | +---+---+ + +-------+ +--------+---+---+ | iloprost (aka VENTAVIS) | Given | 12/06/19 | 20 mcg | | | | nebulizer solution 20 mcg 20 | | 13 1:00 | | | | | mcg, inhalation, ONCE, 1 dose, | | AM PDT | | | | | Tue12/05/12 at 0100 | | | | | | + +-------+ +--------+---+---+ +---+---+ | | | +---+---+ + +-------+ +--------+---+---+ | iloprost (aka VENTAVIS) | Given | 12/06/19 | 20 mcg | | | | nebulizer solution 20 mcg 20 | | 13 7:04 | | | | | mcg, inhalation, EVERY 2 HOURS, 6 | | AM PDT | | | | | doses, First dose (after last | | | | | | | modification) on Tue12/05/12 at | | | | | | | 0300, Last dose on Tue12/05/12 at | | | | | | | 1300 | | | | | | + +-------+ +--------+---+---+ +-------+ +--------+---+---+ | Given | 12/06/19 | 20 mcg | | | | | 13 5:06 | | | | | | AM PDT | | | | +-------+ +--------+---+---+ | Given | 12/06/19 | 20 mcg | | | | | 13 3:10 | | | | | | AM PDT | | | | +-------+ +--------+---+---+ +---+---+ | | | +---+---+ + +-------+ + +---+---+ | insulin lispro (aka HUMALOG) | Given | 12/04/19 | 10 Units | | | | injection 10 Units 10 Units, | | 13 5:02 | | | | | subcutaneous, THREE TIMES DAILY | | PM PDT | | | | | WITH MEALS, First dose on [facility] | | | | | | | 11/30/12 at 0730, Until | | | | | | | Discontinued | | | | | | + +-------+ + +---+---+ +-------+ + +---+---+ | Given | 12/04/19 | 8 Units | | | | | 13 10:27 | | | | | | AM PDT | | | | +-------+ + +---+---+ | Given | 12/03/19 | 10 Units | | | | | 13 6:15 | | | | | | PM PST | | | | +-------+ + +---+---+ +---+---+ | | | +---+---+ + +-------+ +---------+---+---+ | insulin lispro (aka HUMALOG) | Given | 12/16/19 | 3 Units | | | | injection subcutaneous, THREE | | 13 7:43 | | | | | TIMES DAILY BEFORE MEALS, First | | AM PDT | | | | | dose on [facility] 12/14/12 at 1700, | | | | | | | Until Discontinued | | | | | | + +-------+ +---------+---+---+ +---+---+ | | | +---+---+ + +-------+ +---------+---+---+ | insulin lispro (aka HUMALOG) | Given | 12/20/19 | 1 Units | | | | injection subcutaneous, | | 13 6:00 | | | | | NEEDED, Starting [facility] 12/14/12 at | | AM PDT | | | | | 1317, Until [facility] 12/21/12 at 1502, | | | | | | | hyperglycemia | | | | | | + +-------+ +---------+---+---+ +---+---+ | | | +---+---+ + +-------+ + +---+---+ | insulin NPH (aka HUMULIN N) | Given | 12/04/19 | 15 Units | | | | injection 15 Units 15 Units, | | 13 10:27 | | | | | subcutaneous, EVERY BREAKFAST, | | AM PDT | | | | | First dose on 12/02/12 at 0730, | | | | | | | Until Discontinued | | | | | | + +-------+ + +---+---+ +-------+ + +---+---+ | Given | 12/03/19 | 15 Units | | | | | 13 9:43 | | | | | | AM PST | | | | +-------+ + +---+---+ +---+---+ | | | +---+---+ + +-------+ + +---+---+ | insulin NPH (aka HUMULIN N) | Given | 12/04/19 | 15 Units | | | | injection 15 Units 15 Units, | | 13 2:32 | | | | | subcutaneous, EVERY NOON, First | | PM PDT | | | | | dose on 12/02/12 at 1200, Until | | | | | | | Discontinued | | | | | | + +-------+ + +---+---+ +-------+ + +---+---+ | Given | 12/03/19 | 15 Units | | | | | 13 12:48 | | | | | | PM PST | | | | +-------+ + +---+---+ +---+---+ | | | +---+---+ + +-------+ + +---+---+ | insulin NPH (aka HUMULIN N) | Given | 12/03/19 | 15 Units | | | | injection 15 Units 15 Units, | | 13 9:47 | | | | | subcutaneous, AT BEDTIME, First | | PM PST | | | | | dose on Tue12/01/12 at 2200, Until | | | | | | | Discontinued | | | | | | + +-------+ + +---+---+ +-------+ + +---+---+ | Given | 12/02/19 | 15 Units | | | | | 13 11:06 | | | | | | PM PST | | | | +-------+ + +---+---+ +---+---+ | | | +---+---+ + +-------+ +---------+---+--------+ | insulin NPH (aka HUMULIN N) | Given | 12/15/19 | 5 Units | | Right | | injection 5 Units 5 Units, | | 13 11:57 | | | Arm | | subcutaneous, EVERY 8 HOURS, | | PM PDT | | | | | First dose on Tue12/14/12 at | | | | | | | 1330, Until Discontinued | | | | | | + +-------+ +---------+---+--------+ +-------+ +---------+---+---+ | Given | 12/15/19 | 5 Units | | | | | 13 2:22 | | | | | | PM PDT | | | | +-------+ +---------+---+---+ +---+---+ | | | +---+---+ + +-------+ +---------+---+---+ | insulin NPH (aka HUMULIN N) | Given | 12/21/19 | 7 Units | | | | injection 7 Units 7 Units, | | 13 8:47 | | | | | subcutaneous, EVERY 8 HOURS, | | AM PDT | | | | | First dose (after last | | | | | | | modification) on Tue12/15/12 at | | | | | | | 0800, Until Discontinued | | | | | | + +-------+ +---------+---+---+ +-------+ +---------+---+---+ | Given | 12/21/19 | 7 Units | | | | | 13 12:10 | | | | | | AM PDT | | | | +-------+ +---------+---+---+ | Given | 12/20/19 | 7 Units | | | | | 13 5:10 | | | | | | PM PDT | | | | +-------+ +---------+---+---+ +---+---+ | | | +---+---+ + + + + +---------+---+ | insulin regular in NaCl 0.9% IV | Rate/Dos | 12/02/19 | 2 | 2 mL/hr | | | infusion 250 units/250 mL (1 | e Change | 13 1:30 | Units/hr | | | | unit/mL) 0.25-40 Units/hr | | PM PST | | | | | (rounded to 0.25-40 mL/hr), | | | | | | | intravenous, CONTINUOUS, Starting | | | | | | | 11/29/12 at 2215, Until Fri | | | | | | | 12/01/12 at 1811 | | | | | | + + + + +---------+---+ + + + + +---+ | Rate/Dose Change | 12/02/19 | 6 | 6 mL/hr | | | | 13 11:12 | Units/hr | | | | | AM PST | | | | + + + + +---+ | New Bag | 12/02/19 | 12 | 12 mL/hr | | | | 13 8:11 | Units/hr | | | | | AM PST | | | | + + + + +---+ +---+---+ | | | +---+---+ + + + + +---------+---+ | insulin regular in NaCl 0.9% IV | Rate/Dos | 12/15/19 | 1 | 1 mL/hr | | | infusion 250 units/250 mL (1 | e Change | 13 9:00 | Units/hr | | | | unit/mL) 0.25-40 Units/hr | | AM PDT | | | | | (rounded to 0.25-40 mL/hr), | | | | | | | intravenous, CONTINUOUS, Starting | | | | | | | 12/04/12 at 2215, Until Mary | | | | | | | 12/14/12 at 1318 | | | | | | + + + + +---------+---+ + + + +---------+---+ | Rate/Dose Change | 12/15/19 | 2 | 2 mL/hr | | | | 13 2:12 | Units/hr | | | | | AM PDT | | | | + + + +---------+---+ | Restarted | 12/14/19 | 1.5 | 1.5 | | | | 13 10:26 | Units/hr | mL/hr | | | | PM PDT | | | | + + + +---------+---+ +---+---+ | | | +---+---+ + +---------+ + +--------+---+ | lactated ringers IV bolus 1,000 | New Bag | 12/01/19 | 1,000 mL | mL/hr | | | mL 1,000 mL, intravenous, ONCE, | | 13 7:00 | | | | | 1 dose, [facility] 11/30/12 at 0715 | | AM PST | | | | + +---------+ + +--------+---+ +---+---+ | | | +---+---+ + +---------+ + +--------+---+ | lactated ringers IV bolus 1,000 | New Bag | 12/01/19 | 1,000 mL | mL/hr | | | mL 1,000 mL, intravenous, ONCE, | | 13 11:17 | | | | | 1 dose, [facility] 11/30/12 at 1145 | | AM PST | | | | + +---------+ + +--------+---+ +---+---+ | | | +---+---+ + +---------+ + +--------+---+ | lactated ringers IV bolus 1,000 | New Bag | 12/01/19 | 1,000 mL | mL/hr | | | mL 1,000 mL, intravenous, ONCE, | | 13 3:57 | | | | | 1 dose, [facility] 11/30/12 at 1630 | | PM PST | | | | + +---------+ + +--------+---+ +---+---+ | | | +---+---+ + +---------+ + +--------+---+ | lactated ringers IV bolus 1,000 | New Bag | 12/07/19 | 1,000 mL | mL/hr | | | mL 1,000 mL, intravenous, ONCE, | | 13 3:00 | | | | | 1 dose, 12/06/12 at 0345 | | AM PDT | | | | + +---------+ + +--------+---+ +---+---+ | | | +---+---+ + +---------+ + +--------+---+ | lactated ringers IV bolus 1,000 | New Bag | 12/07/19 | 1,000 mL | mL/hr | | | mL 1,000 mL, intravenous, ONCE, | | 13 6:50 | | | | | 1 dose, 12/06/12 at 0730 | | AM PDT | | | | + +---------+ + +--------+---+ +---+---+ | | | +---+---+ + +---------+ + +--------+---+ | lactated ringers IV bolus 1,000 | New Bag | 12/07/19 | 1,000 mL | mL/hr | | | mL 1,000 mL, intravenous, ONCE, | | 13 3:03 | | | | | 1 dose, [facility] 12/06/12 at 1515 | | PM PDT | | | | + +---------+ + +--------+---+ +---+---+ | | | +---+---+ + +---------+ +--------+--------+---+ | lactated ringers IV bolus 500 | New Bag | 12/01/19 | 500 mL | mL/hr | | | mL 500 mL, intravenous, ONCE, 1 | | 13 10:06 | | | | | dose, [facility] 11/30/12 at 1045 | | AM PST | | | | + +---------+ +--------+--------+---+ +---+---+ | | | +---+---+ + +---------+ +--------+--------+---+ | lactated ringers IV bolus 500 | New Bag | 12/07/19 | 500 mL | mL/hr | | | mL 500 mL, intravenous, ONCE, | | 13 12:45 | | | | | dose, 12/06/12 at 0115 | | AM PDT | | | | + +---------+ +--------+--------+---+ +---+---+ | | | +---+---+ + +---------+ +--------+--------+---+ | lactated ringers IV bolus 500 | New Bag | 12/07/19 | 500 mL | mL/hr | | | mL 500 mL, intravenous, ONCE, | | 13 10:31 | | | | | dose, 12/06/12 at 2245 | | PM PDT | | | | + +---------+ +--------+--------+---+ +---+---+ | | | +---+---+ + +---------+ +--------+--------+---+ | lactated ringers IV bolus 500 | New Bag | 12/08/19 | 500 mL | mL/hr | | | mL 500 mL, intravenous, ONCE, 1 | | 13 4:08 | | | | | dose, [facility] 12/07/12 at 0430 | | AM PDT | | | | + +---------+ +--------+--------+---+ +---+---+ | | | +---+---+ + +---------+ +--------+--------+---+ | lactated ringers IV bolus 500 | New Bag | 12/08/19 | 500 mL | mL/hr | | | mL 500 mL, intravenous, ONCE, 1 | | 13 8:54 | | | | | dose, [facility] 12/07/12 at 2045 | | PM PDT | | | | + +---------+ +--------+--------+---+ +---+---+ | | | +---+---+ + +---------+ +--------+--------+---+ | lactated ringers IV bolus 500 | New Bag | 12/10/19 | 500 mL | mL/hr | | | mL 500 mL, intravenous, ONCE, 1 | | 13 9:55 | | | | | dose, 12/09/12 at 1000 | | AM PDT | | | | + +---------+ +--------+--------+---+ +---+---+ | | | +---+---+ + +---------+ +--------+---+---+ | lidocaine (aka XYLOCAINE MPF) 2 | New Bag | 12/05/19 | 100 mg | | | | % (20 mg/mL) injection | | 13 4:47 | | | | | NEEDED CONTINUOUS, Starting Mon | | PM PDT | | | | | 12/04/12 at 1647, Until Mon | | | | | | | 12/04/12 at 1647 | | | | | | + +---------+ +--------+---+---+ +---+---+ | | | +---+---+ + +-------+ +------+---+---+ | lisinopril (aka PRINIVIL) | Given | 11/28/19 | 5 mg | | | | tablet 5 mg 5 mg, oral, DAILY, | | 13 8:35 | | | | | First dose on Tue11/27/12 at 0900, | | AM PST | | | | | Until Discontinued | | | | | | + +-------+ +------+---+---+ +---+---+ | | | +---+---+ + +---------+ +-----+---+---+ | magnesium sulfate IV NEEDED | New Bag | 12/05/19 | 2 g | | | | CONTINUOUS, Starting Tue12/04/12 | | 13 5:13 | | | | | at 1713, Until Tue12/04/12 at | | PM PDT | | | | | 1713 | | | | | | + +---------+ +-----+---+---+ +---+---+ | | | +---+---+ + +-------+ +---------+---+---+ | metoprolol tartrate (aka | Given | 12/05/19 | 12.5 mg | | | | LOPRESSOR) tablet 12.5 mg 12.5 | | 13 8:11 | | | | | mg, oral, TWICE DAILY, First dose | | AM PDT | | | | | on 12/02/12 at 0900, Until | | | | | | | Discontinued | | | | | | + +-------+ +---------+---+---+ +-------+ +---------+---+---+ | Given | 12/04/19 | 12.5 mg | | | | | 13 8:45 | | | | | | PM PDT | | | | +-------+ +---------+---+---+ | Given | 12/04/19 | 12.5 mg | | | | | 13 8:07 | | | | | | AM PDT | | | | +-------+ +---------+---+---+ +---+---+ | | | +---+---+ + +-------+ +-------+---+---+ | metoprolol tartrate (aka | Given | 11/29/19 | 25 mg | | | | LOPRESSOR) tablet 25 mg 25 mg, | | 13 8:44 | | | | | oral, TWICE DAILY, First dose on | | PM PST | | | | | 11/26/12 at 2100, Until | | | | | | | Discontinued | | | | | | + +-------+ +-------+---+---+ +-------+ +-------+---+---+ | Given | 11/29/19 | 25 mg | | | | | 13 8:14 | | | | | | AM PST | | | | +-------+ +-------+---+---+ | Given | 11/28/19 | 25 mg | | | | | 13 8:35 | | | | | | AM PST | | | | +-------+ +-------+---+---+ +---+---+ | | | +---+---+ + +-------+ +------+---+---+ | midazolam (aka VERSED) | Given | 12/05/19 | 2 mg | | | | injection NEEDED, Starting | | 13 4:49 | | | | | 12/04/12 at 1645, Until Mon | | PM PDT | | | | | 12/04/12 at 1649 | | | | | | + +-------+ +------+---+---+ +-------+ +------+---+---+ | Given | 12/05/19 | 3 mg | | | | | 13 4:45 | | | | | | PM PDT | | | | +-------+ +------+---+---+ +---+---+ | | | +---+---+ + + + + +-------+---+ | milrinone (aka PRIMACOR) IV | Rate/Dos | 12/01/19 | 0.125 | 5.61 | | | infusion 20 mg/100 mL 0.25 | e Change | 13 12:40 | mcg/kg/m | mL/hr | | | mcg/kg/min | | PM PST | in | | | | 149.6 kg Dosing weight (rounded | | | | | | | to 11.22 mL/hr), intravenous, | | | | | | | CONTINUOUS, Starting Mary 11/30/12 | | | | | | | at 0845, Until Mary 11/30/12 at 1340 | | | | | | + + + + +-------+---+ +---------+ + +--------+---+ | New Bag | 12/01/19 | 0.25 | 11.22 | | | | 13 8:54 | mcg/kg/m | mL/hr | | | | AM PST | in | | | +---------+ + +--------+---+ +---+---+ | | | +---+---+ + + + + +-------+---+ | milrinone (aka PRIMACOR) IV | Rate/Dos | 12/02/19 | 0.125 | 5.61 | | | infusion 20 mg/100 mL 0.125 | e Change | 13 5:00 | mcg/kg/m | mL/hr | | | mcg/kg/min | | AM PST | in | | | | 149.6 kg Dosing weight (rounded | | | | | | | to 5.61 mL/hr), intravenous, | | | | | | | CONTINUOUS, Starting [facility] 11/30/12 | | | | | | | at 1345, Until Tue12/01/12 at 0628 | | | | | | + + + + +-------+---+ + + + +-------+---+ | Rate/Dose Change | 12/02/19 | 0.125 | 5.61 | | | | 13 2:00 | mcg/kg/m | mL/hr | | | | AM PST | in | | | + + + +-------+---+ | Rate/Dose Change | 12/01/19 | 0.125 | 5.61 | | | | 13 1:00 | mcg/kg/m | mL/hr | | | | PM PST | in | | | + + + +-------+---+ +---+---+ | | | +---+---+ + +---------+ +------+--------+---+ | morphine injection 2 mg 2 mg, | New Bag | 12/01/19 | 2 mg | mL/hr | | | intravenous, EVERY 5 MINUTES | | 13 2:01 | | | | | NEEDED, Starting 11/29/12 at | | AM PST | | | | | 2109, Until [facility] 3/7/13 at 0312, | | | | | | | moderate pain, severe pain | | | | | | + +---------+ +------+--------+---+ +---+---+ | | | +---+---+ + +-------+ +---------+---+---+ | multivitamin 1 Cap 1 capsule, | Given | 12/14/19 | 1 | | | | oral, DAILY, First dose on Tue | | 13 9:06 | capsule | | | | 12/13/12 at 0900, Until | | AM PDT | | | | | Discontinued | | | | | | + +-------+ +---------+---+---+ +---+---+ | | | +---+---+ + +-------+ +-------+---+---+ | lkvhxeffhwce-bjon-uquqwbhm (aka | Given | 12/12/19 | 15 mL | | | | CEROVITE) liquid 15 mL 15 mL, | | 13 9:00 | | | | | oral, DAILY, First dose on Tue | | AM PDT | | | | | 12/05/12 at 0900, Until | | | | | | | Discontinued | | | | | | + +-------+ +-------+---+---+ +-------+ +-------+---+---+ | Given | 12/11/19 | 15 mL | | | | | 13 9:00 | | | | | | AM PDT | | | | +-------+ +-------+---+---+ | Given | 12/10/19 | 15 mL | | | | | 13 9:32 | | | | | | AM PDT | | | | +-------+ +-------+---+---+ +---+---+ | | | +---+---+ + +-------+ +-------+---+---+ | pdbwpmawsnky-goul-ynzrozom (aka | Given | 12/13/19 | 15 mL | | | | CEROVITE) liquid 15 mL 15 mL, | | 13 9:06 | | | | | feeding tube, DAILY, First dose | | AM PDT | | | | | (after last modification) on Tue | | | | | | | 12/12/12 at 0900, Until | | | | | | | Discontinued | | | | | | + +-------+ +-------+---+---+ +---+---+ | | | +---+---+ + +-------+ +-------+---+---+ | mnleswkmbdzb-ctid-anxqxhod (aka | Given | 12/21/19 | 15 mL | | | | CEROVITE) liquid 15 mL 15 mL, | | 13 8:46 | | | | | feeding tube, DAILY, First dose | | AM PDT | | | | | on [facility] 12/14/12 at 0900, Until | | | | | | | Discontinued | | | | | | + +-------+ +-------+---+---+ +-------+ +-------+---+---+ | Given | 12/20/19 | 15 mL | | | | | 13 10:03 | | | | | | AM PDT | | | | +-------+ +-------+---+---+ | Given | 12/19/19 | 15 mL | | | | | 13 9:19 | | | | | | AM PDT | | | | +-------+ +-------+---+---+ +---+---+ | | | +---+---+ + +-------+ + +---+---+ | multivitamin-minerals 1 Tab 1 | Given | 12/23/19 | 1 tablet | | | | tablet, oral, DAILY, First dose | | 13 10:24 | | | | | (after last modification) on Tue | | AM PDT | | | | | 12/21/12 at 0900, Until | | | | | | | Discontinued | | | | | | + +-------+ + +---+---+ +-------+ + +---+---+ | Given | 12/22/19 | 1 tablet | | | | | 13 9:30 | | | | | | AM PDT | | | | +-------+ + +---+---+ +---+---+ | | | +---+---+ + +-------+ +---+---+---+ | mupirocin (aka BACTROBAN) 2 % | Given | 12/03/19 | | | | | ointment nasal, TWICE DAILY, | | 13 9:44 | | | | | doses, First dose on Tue11/29/12 | | AM PST | | | | | at 2245, Last dose on Tue12/02/12 | | | | | | | at 0900 | | | | | | + +-------+ +---+---+---+ +-------+ +---+---+---+ | Given | 12/02/19 | | | | | | 13 11:10 | | | | | | PM PST | | | | +-------+ +---+---+---+ | Given | 12/02/19 | | | | | | 13 7:54 | | | | | | AM PST | | | | +-------+ +---+---+---+ +---+---+ | | | +---+---+ + +---------+ +--------+--------+---+ | NaCl 0.9 % IV bolus 500 mL 500 | New Bag | 12/01/19 | 500 mL | mL/hr | | | mL, intravenous, ONCE, 1 dose, | | 13 9:16 | | | | | [facility] 11/30/12 at 0945 | | AM PST | | | | + +---------+ +--------+--------+---+ +---+---+ | | | +---+---+ + +---------+ +--------+--------+---+ | NaCl 0.9 % IV bolus 500 mL 500 | New Bag | 12/08/19 | 500 mL | mL/hr | | | mL, intravenous, ONCE, 1 dose, | | 13 1:30 | | | | | [facility] 12/07/12 at 0200 | | AM PDT | | | | + +---------+ +--------+--------+---+ +---+---+ | | | +---+---+ + + + +-------+-------+---+ | NaCl 0.9 % IV 0-150 mL/hr, | Rate/Dos | 12/08/19 | 150 | 150 | | | intravenous, CONTINUOUS, Starting | e Change | 13 11:00 | mL/hr | mL/hr | | | [facility] 12/07/12 at 0830, Until Fri | | PM PDT | | | | | 12/08/12 at 0603 | | | | | | + + + +-------+-------+---+ + + + + +---+ | Rate/Dose Change | 12/08/19 | 80 mL/hr | 80 mL/hr | | | | 13 12:08 | | | | | | PM PDT | | | | + + + + +---+ | Rate/Dose Change | 12/08/19 | 70 mL/hr | 70 mL/hr | | | | 13 9:00 | | | | | | AM PDT | | | | + + + + +---+ +---+---+ | | | +---+---+ + + + + +-------+---+ | norepinephrine in NaCl 0.9% IV | Rate/Dos | 12/02/19 | 0.01 | 2.81 | | | infusion 8 mg/250 mL (0.032 | e Change | 13 2:30 | mcg/kg/m | mL/hr | | | mg/mL) 0.02-2 mcg/kg/min | | AM PST | in | | | | 149.6 kg Dosing weight (rounded | | | | | | | to 5.61-561 mL/hr), intravenous, | | | | | | | CONTINUOUS, Starting Tue11/29/12 | | | | | | | at 2230, Until Tue12/01/12 at 0744 | | | | | | + + + + +-------+---+ + + + +-------+---+ | Rate/Dose Change | 12/01/19 | 0.01 | 2.81 | | | | 13 11:25 | mcg/kg/m | mL/hr | | | | PM PST | in | | | + + + +-------+---+ | Rate/Dose Change | 12/01/19 | 0.02 | 5.61 | | | | 13 10:50 | mcg/kg/m | mL/hr | | | | PM PST | in | | | + + + +-------+---+ +---+---+ | | | +---+---+ + + + + +--------+---+ | norepinephrine in NaCl 0.9% IV | Rate/Dos | 12/05/19 | 0.08 | 22.44 | | | infusion 8 mg/250 mL (0.032 | e Change | 13 5:47 | mcg/kg/m | mL/hr | | | mg/mL) intravenous, NEEDED | | PM PDT | in | | | | CONTINUOUS, Starting Tue12/04/12 | | | | | | | at 1634, Until Tue12/04/12 at | | | | | | | 1718 | | | | | | + + + + +--------+---+ + + + +--------+---+ | Rate/Dose Change | 12/05/19 | 0.06 | 16.83 | | | | 13 5:45 | mcg/kg/m | mL/hr | | | | PM PDT | in | | | + + + +--------+---+ | Rate/Dose Change | 12/05/19 | 0.04 | 11.22 | | | | 13 5:41 | mcg/kg/m | mL/hr | | | | PM PDT | in | | | + + + +--------+---+ +---+---+ | | | +---+---+ + + + + +--------+---+ | norepinephrine in NaCl 0.9% IV | Rate/Dos | 12/06/19 | 0.06 | 16.83 | | | infusion 8 mg/250 mL (0.032 | e Change | 13 9:18 | mcg/kg/m | mL/hr | | | mg/mL) 0.02-2 mcg/kg/min | | PM PDT | in | | | | 149.6 kg Dosing weight (rounded | | | | | | | to 5.61-561 mL/hr), intravenous, | | | | | | | CONTINUOUS, Starting 12/04/12 | | | | | | | at 1915, Until Tue12/05/12 at | | | | | | | 2200 | | | | | | + + + + +--------+---+ + + + +--------+---+ | Rate/Dose Change | 12/06/19 | 0.07 | 19.64 | | | | 13 9:09 | mcg/kg/m | mL/hr | | | | PM PDT | in | | | + + + +--------+---+ | Rate/Dose Change | 12/06/19 | 0.06 | 16.83 | | | | 13 9:03 | mcg/kg/m | mL/hr | | | | PM PDT | in | | | + + + +--------+---+ +---+---+ | | | +---+---+ + + + + +---------+---+ | norepinephrine in NaCl 0.9% IV | Rate/Dos | 12/10/19 | 0.02 | 6 mL/hr | | | infusion 8 mg/250 mL (0.032 | e Change | 13 9:15 | mcg/kg/m | | | | mg/mL) 0.02-2 mcg/kg/min | | AM PDT | in | | | | 160 kg Order-specific weight | | | | | | | (rounded to 6-600 mL/hr), | | | | | | | intravenous, CONTINUOUS, Starting | | | | | | | 12/05/12 at 2215, Until Mon | | | | | | | 12/11/12 at 0929 | | | | | | + + + + +---------+---+ + + + +---------+---+ | Rate/Dose Change | 12/10/19 | 0.01 | 3 mL/hr | | | | 13 9:00 | mcg/kg/m | | | | | AM PDT | in | | | + + + +---------+---+ | Restarted | 12/10/19 | 0.02 | 6 mL/hr | | | | 13 8:50 | mcg/kg/m | | | | | AM PDT | in | | | + + + +---------+---+ +---+---+ | | | +---+---+ + +-------+ +---+---+---+ | norepinephrine IV infusion 1 | Given | 12/05/19 | | | | | dose, Starting 12/04/12 at | | 13 6:29 | | | | | 1520, Until Tue12/04/12 at 1829 | | PM PDT | | | | + +-------+ +---+---+---+ +---+---+ | | | +---+---+ + +-------+ + +---+---+ | nystatin (aka MYCOSTATIN) | Given | 12/23/19 | 500,000 | | | | suspension 500,000 Units 500,000 | | 13 6:06 | Units | | | | Units, oral, FOUR TIMES DAILY, | | PM PDT | | | | | First dose on 12/11/12 at | | | | | | | 2145, Until Discontinued | | | | | | + +-------+ + +---+---+ +-------+ + +---+---+ | Given | 12/23/19 | 500,000 | | | | | 13 2:00 | Units | | | | | PM PDT | | | | +-------+ + +---+---+ | Given | 12/23/19 | 500,000 | | | | | 13 10:51 | Units | | | | | AM PDT | | | | +-------+ + +---+---+ +---+---+ | | | +---+---+ + +-------+ +-------+---+---+ | omeprazole (aka PRILOSEC) | Given | 12/05/19 | 40 mg | | | | capsule 40 mg 40 mg, oral, | | 13 8:11 | | | | | DAILY, First dose on [facility] 11/30/12 | | AM PDT | | | | | at 0900, Until Discontinued | | | | | | + +-------+ +-------+---+---+ +-------+ +-------+---+---+ | Given | 12/04/19 | 40 mg | | | | | 13 8:05 | | | | | | AM PDT | | | | +-------+ +-------+---+---+ | Given | 12/03/19 | 40 mg | | | | | 13 9:00 | | | | | | AM PST | | | | +-------+ +-------+---+---+ +---+---+ | | | +---+---+ + +-------+ +-------+---+---+ | omeprazole (aka PRILOSEC) | Given | 12/23/19 | 40 mg | | | | capsule 40 mg 40 mg, oral, | | 13 10:24 | | | | | DAILY, First dose (after last | | AM PDT | | | | | modification) on [facility] 12/21/12 at | | | | | | | 0900, Until Discontinued | | | | | | + +-------+ +-------+---+---+ +-------+ +-------+---+---+ | Given | 12/22/19 | 40 mg | | | | | 13 9:31 | | | | | | AM PDT | | | | +-------+ +-------+---+---+ +---+---+ | | | +---+---+ + +-------+ +-------+---+---+ | omeprazole (aka PRILOSEC) oral | Given | 12/21/19 | 40 mg | | | | suspension 40 mg 40 mg, feeding | | 13 8:46 | | | | | tube, DAILY, First dose on e | | AM PDT | | | | | 12/05/12 at 0945, Until | | | | | | | Discontinued | | | | | | + +-------+ +-------+---+---+ +-------+ +-------+---+---+ | Given | 12/20/19 | 40 mg | | | | | 13 10:11 | | | | | | AM PDT | | | | +-------+ +-------+---+---+ | Given | 12/19/19 | 40 mg | | | | | 13 9:19 | | | | | | AM PDT | | | | +-------+ +-------+---+---+ +---+---+ | | | +---+---+ + +---------+ +------+--------+---+ | ondansetron (aka ZOFRAN) | New Bag | 12/01/19 | 4 mg | mL/hr | | | injection 4 mg 4 mg, | | 13 2:54 | | | | | intravenous, EVERY 12 HOURS | | AM PST | | | | | NEEDED, Starting 11/29/12 at | | | | | | | 2109, Until 12/23/12 at 0035, | | | | | | | nausea/vomiting | | | | | | + +---------+ +------+--------+---+ +---+---+ | | | +---+---+ + +-------+ +-------+---+---+ | oxyCODONE (immediate release) | Given | 12/01/19 | 10 mg | | | | (aka ROXICODONE) liquid 5-10 mg | | 13 2:38 | | | | | 5-10 mg, feeding tube, EVERY 3 | | AM PST | | | | | HOURS NEEDED, Starting Wed | | | | | | | 11/29/12 at 2109, Until Mary 11/30/12 | | | | | | | at 0531, severe pain | | | | | | + +-------+ +-------+---+---+ +-------+ +-------+---+---+ | Given | 11/30/19 | 10 mg | | | | | 13 11:02 | | | | | | PM PST | | | | +-------+ +-------+---+---+ +---+---+ | | | +---+---+ + +-------+ +-------+---+---+ | oxyCODONE (immediate release) | Given | 12/19/19 | 10 mg | | | | (aka ROXICODONE) liquid 5-15 mg | | 13 4:26 | | | | | 5-15 mg, feeding tube, EVERY 4 | | AM PDT | | | | | HOURS NEEDED, Starting Wed | | | | | | | 12/13/12 at 1040, Until Wed | | | | | | | 12/20/12 at 1634, moderate pain | | | | | | + +-------+ +-------+---+---+ +-------+ +-------+---+---+ | Given | 12/18/19 | 10 mg | | | | | 13 10:07 | | | | | | PM PDT | | | | +-------+ +-------+---+---+ | Given | 12/18/19 | 10 mg | | | | | 13 5:00 | | | | | | PM PDT | | | | +-------+ +-------+---+---+ +---+---+ | | | +---+---+ + +-------+ +------+---+---+ | oxyCODONE (immediate release) | Given | 12/23/19 | 5 mg | | | | (aka ROXICODONE) liquid 5-15 mg | | 13 10:51 | | | | | 5-15 mg, oral, EVERY 4 HOURS | | AM PDT | | | | | NEEDED, Starting 12/20/12 at | | | | | | | 1632, Until 12/23/12 at 0035, | | | | | | | moderate pain | | | | | | + +-------+ +------+---+---+ +-------+ +------+---+---+ | Given | 12/22/19 | 5 mg | | | | | 13 8:04 | | | | | | PM PDT | | | | +-------+ +------+---+---+ +---+---+ | | | +---+---+ + +-------+ +-------+---+---+ | oxyCODONE (immediate release) | Given | 12/04/19 | 10 mg | | | | (aka ROXICODONE) tablet 5-10 mg | | 13 8:45 | | | | | 5-10 mg, oral, EVERY 3 HOURS | | PM PDT | | | | | NEEDED, Starting Tue11/29/12 at | | | | | | | 2109, Until Tue12/04/12 at 2141, | | | | | | | severe pain | | | | | | + +-------+ +-------+---+---+ +-------+ +-------+---+---+ | Given | 12/04/19 | 10 mg | | | | | 13 12:54 | | | | | | PM PDT | | | | +-------+ +-------+---+---+ | Given | 12/04/19 | 5 mg | | | | | 13 5:22 | | | | | | AM PDT | | | | +-------+ +-------+---+---+ +---+---+ | | | +---+---+ + +-------+ +------+---+---+ | oxyCODONE (immediate release) | Given | 12/14/19 | 5 mg | | | | (aka ROXICODONE) tablet 5-15 mg | | 13 9:07 | | | | | 5-15 mg, oral, EVERY 4 HOURS | | AM PDT | | | | | NEEDED, Starting Tu12/12/12 at | | | | | | | 1215, Until Tue12/13/12 at 1042, | | | | | | | severe pain | | | | | | + +-------+ +------+---+---+ +-------+ +------+---+---+ | Given | 12/14/19 | 5 mg | | | | | 13 5:24 | | | | | | AM PDT | | | | +-------+ +------+---+---+ | Given | 12/14/19 | 5 mg | | | | | 13 1:12 | | | | | | AM PDT | | | | +-------+ +------+---+---+ +---+---+ | | | +---+---+ + +---------+ +--------+--------+---+ | perflutren lipid microspheres | New Bag | 11/28/19 | 1.5 mL | mL/hr | | | (aka DEFINITY) injection 1.5 mL | | 13 11:20 | | | | | 1.5 mL, intravenous, PROCEDURE | | AM PST | | | | | ONCE, 1 dose, [facility] 11/27/12 at 1130 | | | | | | + +---------+ +--------+--------+---+ +---+---+ | | | +---+---+ + +---------+ +--------+--------+---+ | perflutren lipid microspheres | New Bag | 12/01/19 | 1.5 mL | mL/hr | | | (aka DEFINITY) injection 1.5 mL | | 13 10:00 | | | | | 1.5 mL, intravenous, PROCEDURE | | AM PST | | | | | ONCE, 1 dose, [facility] 11/30/12 at 1115 | | | | | | + +---------+ +--------+--------+---+ +---+---+ | | | +---+---+ + +---------+ +------+ +---+ | phytonadione (aka VITAMIN K, | New Bag | 12/05/19 | 5 mg | 50 mL/hr | | | MEPHYTON) IV 5 mg 5 mg, | | 13 11:40 | | | | | intravenous, ONCE, 1 dose, Mon | | PM PDT | | | | | 12/04/12 at 2215 | | | | | | + +---------+ +------+ +---+ +---+---+ | | | +---+---+ + +---------+ +--------+--------+---+ | piperacillin-tazobactam (aka | New Bag | 12/05/19 | 2.25 g | mL/hr | | | ZOSYN) IV 2.25 g 2.25 g, | | 13 6:30 | | | | | intravenous, EVERY 6 HOURS, First | | PM PDT | | | | | dose on Tue12/04/12 at 1430, | | | | | | | Until Discontinued | | | | | | + +---------+ +--------+--------+---+ +---+---+ | | | +---+---+ + +---------+ +--------+--------+---+ | piperacillin-tazobactam (aka | New Bag | 12/10/19 | 2.25 g | mL/hr | | | ZOSYN) IV 2.25 g 2.25 g, | | 13 8:33 | | | | | intravenous, EVERY 6 HOURS, First | | AM PDT | | | | | dose on Tue12/06/12 at 0630, | | | | | | | Until Discontinued | | | | | | + +---------+ +--------+--------+---+ +---------+ +--------+--------+---+ | New Bag | 12/10/19 | 2.25 g | mL/hr | | | | 13 1:52 | | | | | | AM PDT | | | | +---------+ +--------+--------+---+ | New Bag | 12/09/19 | 2.25 g | mL/hr | | | | 13 7:49 | | | | | | PM PDT | | | | +---------+ +--------+--------+---+ +---+---+ | | | +---+---+ + +---------+ +---------+--------+---+ | piperacillin-tazobactam (aka | New Bag | 12/01/19 | 3.375 g | mL/hr | | | ZOSYN) IV 3.375 g 3.375 g, | | 13 9:18 | | | | | intravenous, EVERY 6 HOURS, First | | AM PST | | | | | dose on [facility] 11/30/12 at 0900, | | | | | | | Until Discontinued | | | | | | + +---------+ +---------+--------+---+ +---+---+ | | | +---+---+ + +---------+ +---------+--------+---+ | piperacillin-tazobactam (aka | New Bag | 12/03/19 | 3.375 g | mL/hr | | | ZOSYN) IV 3.375 g 3.375 g, | | 13 10:05 | | | | | intravenous, EVERY 6 HOURS, First | | AM PST | | | | | dose on [facility] 11/30/12 at 1500, | | | | | | | Until Discontinued | | | | | | + +---------+ +---------+--------+---+ +---------+ +---------+--------+---+ | New Bag | 12/03/19 | 3.375 g | mL/hr | | | | 13 4:23 | | | | | | AM PST | | | | +---------+ +---------+--------+---+ | New Bag | 12/02/19 | 3.375 g | mL/hr | | | | 13 8:54 | | | | | | PM PST | | | | +---------+ +---------+--------+---+ +---+---+ | | | +---+---+ + +---------+ +---------+--------+---+ | piperacillin-tazobactam (aka | New Bag | 12/06/19 | 3.375 g | mL/hr | | | ZOSYN) IV 3.375 g 3.375 g, | | 13 3:50 | | | | | intravenous, EVERY 6 HOURS, First | | AM PDT | | | | | dose on Tue12/04/12 at 1530, | | | | | | | Until Discontinued | | | | | | + +---------+ +---------+--------+---+ +---------+ +---------+--------+---+ | New Bag | 12/05/19 | 3.375 g | mL/hr | | | | 13 10:16 | | | | | | PM PDT | | | | +---------+ +---------+--------+---+ | New Bag | 12/05/19 | 3.375 g | mL/hr | | | | 13 4:45 | | | | | | PM PDT | | | | +---------+ +---------+--------+---+ +---+---+ | | | +---+---+ + +---------+ +---------+--------+---+ | piperacillin-tazobactam (aka | New Bag | 12/06/19 | 3.375 g | mL/hr | | | ZOSYN) IV 3.375 g 3.375 g, | | 13 10:24 | | | | | intravenous, EVERY 12 HOURS, | | PM PDT | | | | | First dose on Tue12/05/12 at | | | | | | | 2200, Until Discontinued | | | | | | + +---------+ +---------+--------+---+ +---+---+ | | | +---+---+ + +---------+ +---------+--------+---+ | piperacillin-tazobactam (aka | New Bag | 12/12/19 | 3.375 g | mL/hr | | | ZOSYN) IV 3.375 g 3.375 g, | | 13 3:36 | | | | | intravenous, EVERY 6 HOURS, First | | AM PDT | | | | | dose on 12/09/12 at 1500, | | | | | | | Until Discontinued | | | | | | + +---------+ +---------+--------+---+ +---------+ +---------+--------+---+ | New Bag | 12/11/19 | 3.375 g | mL/hr | | | | 13 8:40 | | | | | | PM PDT | | | | +---------+ +---------+--------+---+ | New Bag | 12/11/19 | 3.375 g | mL/hr | | | | 13 3:00 | | | | | | PM PDT | | | | +---------+ +---------+--------+---+ +---+---+ | | | +---+---+ + +---------+ +--------+--------+---+ | potassium chloride IV 20 mEq | New Bag | 12/01/19 | 20 mEq | mL/hr | | | 20 mEq, intravenous, NEEDED, | | 13 6:55 | | | | | Starting 11/29/12 at 2109, | | AM PST | | | | | Until Tue12/04/12 at 1044, | | | | | | | hypokalemia | | | | | | + +---------+ +--------+--------+---+ +---------+ +--------+--------+---+ | New Bag | 12/01/19 | 20 mEq | mL/hr | | | | 13 1:02 | | | | | | AM PST | | | | +---------+ +--------+--------+---+ +---+---+ | | | +---+---+ + +---------+ +--------+--------+---+ | potassium chloride IV 20 mEq | New | 12/13/19 | 20 mEq | mL/hr | | | 20 mEq, intravenous, NEEDED, | | 13 5:08 | | | | | Starting 12/11/12 at 1106, | | AM PDT | | | | | Until Tue12/13/12 at 0649, for | | | | | | | potassium level less than 4.0 | | | | | | | mmol/L | | | | | | + +---------+ +--------+--------+---+ +---------+ +--------+--------+---+ | New Bag | 12/12/19 | 20 mEq | mL/hr | | | | 13 1:16 | | | | | | PM PDT | | | | +---------+ +--------+--------+---+ +---+---+ | | | +---+---+ + +-------+ +--------+---+---+ | potassium chloride SR (aka | Given | 12/06/19 | 20 mEq | | | | K-DUR) tablet 20 mEq 20 mEq, | | 13 9:11 | | | | | oral, DAILY, First dose (after | | AM PDT | | | | | last modification) on 12/02/12 | | | | | | | at 0900, Until Discontinued | | | | | | + +-------+ +--------+---+---+ +-------+ +--------+---+---+ | Given | 12/04/19 | 20 mEq | | | | | 13 8:06 | | | | | | AM PDT | | | | +-------+ +--------+---+---+ | Given | 12/03/19 | 20 mEq | | | | | 13 9:00 | | | | | | AM PST | | | | +-------+ +--------+---+---+ +---+---+ | | | +---+---+ + + + + +-------+---+ | propofol (karthikeyan ROSA) | Rate/Dos | 12/01/19 | 10 | 8.98 | | | injection 0.5-60 mcg/kg/min | e Change | 13 12:00 | mcg/kg/m | mL/hr | | | 149.6 kg Dosing weight (rounded | | AM PST | in | | | | to 0.45-53.86 mL/hr), | | | | | | | intravenous, CONTINUOUS, Starting | | | | | | | 11/29/12 at 2230, Until Mary | | | | | | | 11/30/12 at 0314 | | | | | | + + + + +-------+---+ + + + +--------+---+ | Rate/Dose Change | 11/30/19 | 15 | 13.46 | | | | 13 11:30 | mcg/kg/m | mL/hr | | | | PM PST | in | | | + + + +--------+---+ | Rate/Dose Change | 11/30/19 | 25 | 22.44 | | | | 13 11:00 | mcg/kg/m | mL/hr | | | | PM PST | in | | | + + + +--------+---+ +---+---+ | | | +---+---+ + +-------+ +--------+---+---+ | propofol (aka DIPRIVAN) | Given | 12/05/19 | 120 mg | | | | injection 1 dose, Starting Mon | | 13 2:15 | | | | | 12/04/12 at 1356, Until Mon | | PM PDT | | | | | 12/04/12 at 1415 | | | | | | + +-------+ +--------+---+---+ +---+---+ | | | +---+---+ + +-------+ + +---+---+ | propofol (aka DIPRIVAN) | Given | 12/06/19 | 20 | | | | injection 1 dose, Starting Mon | | 13 12:00 | mcg/kg/m | | | | 12/04/12 at 1715, Until Tue | | AM PDT | in | | | | 12/05/12 at 0000 | | | | | | + +-------+ + +---+---+ +---+---+ | | | +---+---+ + +-------+ +---+---+---+ | propofol (aka DIPRIVAN) | Given | 12/05/19 | | | | | injection 1 dose, Starting Mon | | 13 6:29 | | | | | 12/04/12 at 1720, Until Mon | | PM PDT | | | | | 12/04/12 at 1829 | | | | | | + +-------+ +---+---+---+ +---+---+ | | | +---+---+ + +---------+ + +--------+---+ | propofol (aka DIPRIVAN) | New Bag | 12/05/19 | 30 | 26.93 | | | injection NEEDED CONTINUOUS, | | 13 5:19 | mcg/kg/m | mL/hr | | | Starting Tue12/04/12 at 1719, | | PM PDT | in | | | | Until Tue12/04/12 at 1719 | | | | | | + +---------+ + +--------+---+ +---+---+ | | | +---+---+ + +---------+ + +--------+---+ | propofol (aka DIPRIVAN) | New Bag | 12/06/19 | 20 | 17.95 | | | injection 0.5-60 mcg/kg/min | | 13 4:00 | mcg/kg/m | mL/hr | | | 149.6 kg Dosing weight (rounded | | PM PDT | in | | | | to 0.45-53.86 mL/hr), | | | | | | | intravenous, CONTINUOUS, Starting | | | | | | | 12/04/12 at 1915, Until Tue | | | | | | | 12/05/12 at 2200 | | | | | | + +---------+ + +--------+---+ + + + +--------+---+ | New Bag | 12/06/19 | 20 | 17.95 | | | | 13 5:41 | mcg/kg/m | mL/hr | | | | AM PDT | in | | | + + + +--------+---+ | Rate/Dose Change | 12/05/19 | 20 | 17.95 | | | | 13 7:00 | mcg/kg/m | mL/hr | | | | PM PDT | in | | | + + + +--------+---+ +---+---+ | | | +---+---+ + +---------+ + +-------+---+ | propofol (aka DIPRIVAN) | New Bag | 12/09/19 | 20 | 19.2 | | | injection 0.5-60 mcg/kg/min | | 13 12:59 | mcg/kg/m | mL/hr | | | 160 kg Order-specific weight | | PM PDT | in | | | | (rounded to 0.48-57.6 mL/hr), | | | | | | | intravenous, CONTINUOUS, Starting | | | | | | | 12/05/12 at 2215, Until Sun | | | | | | | 12/10/12 at 1048 | | | | | | + +---------+ + +-------+---+ + + + +-------+---+ | Restarted | 12/09/19 | 20 | 19.2 | | | | 13 11:36 | mcg/kg/m | mL/hr | | | | AM PDT | in | | | + + + +-------+---+ | New Bag | 12/08/19 | 10 | 9.6 | | | | 13 8:01 | mcg/kg/m | mL/hr | | | | PM PDT | in | | | + + + +-------+---+ +---+---+ | | | +---+---+ + +---------+ +-------+--------+---+ | protamine injection 50 mg 50 | New Bag | 12/05/19 | 50 mg | mL/hr | | | mg, intravenous, ONCE, 1 dose, | | 13 6:29 | | | | | Tue12/04/12 at 1730 | | PM PDT | | | | + +---------+ +-------+--------+---+ +---+---+ | | | +---+---+ + +---------+ +-------+---+---+ | protamine injection NEEDED | New Bag | 12/05/19 | 25 mg | | | | CONTINUOUS, Starting Tue12/04/12 | | 13 4:50 | | | | | at 1650, Until Tue12/04/12 at | | PM PDT | | | | | 1650 | | | | | | + +---------+ +-------+---+---+ +---+---+ | | | +---+---+ + +-------+ +--------+---+---+ | rocuronium (aka ZEMURON) | Given | 12/05/19 | 150 mg | | | | injection 1 dose, Starting Mon | | 13 6:30 | | | | | 12/04/12 at 1356, Until Mon | | PM PDT | | | | | 12/04/12 at 1830 | | | | | | + +-------+ +--------+---+---+ +---+---+ | | | +---+---+ + +-------+ +--------+---+---+ | rocuronium (aka ZEMURON) | Given | 12/05/19 | 160 mg | | | | injection 1 dose, Starting Tue | | 13 2:18 | | | | | 12/04/12 at 1407, Until Mon | | PM PDT | | | | | 12/04/12 at 1418 | | | | | | + +-------+ +--------+---+---+ +---+---+ | | | +---+---+ + +-------+ +--------+---+---+ | senna (aka SENOKOT) liquid 8.8 | Given | 12/13/19 | 8.8 mg | | | | mg 8.8 mg (5 mL), feeding tube, | | 13 9:07 | | | | | TWICE DAILY, First dose on Mary | | AM PDT | | | | | 12/07/12 at 1315, Until | | | | | | | Discontinued | | | | | | + +-------+ +--------+---+---+ +-------+ +--------+---+---+ | Given | 12/12/19 | 8.8 mg | | | | | 13 10:25 | | | | | | PM PDT | | | | +-------+ +--------+---+---+ | Given | 12/12/19 | 8.8 mg | | | | | 13 8:58 | | | | | | AM PDT | | | | +-------+ +--------+---+---+ +---+---+ | | | +---+---+ + +-------+ +--------+---+---+ | senna (aka SENOKOT) liquid 8.8 | Given | 12/21/19 | 8.8 mg | | | | mg 8.8 mg (5 mL), feeding tube, | | 13 8:47 | | | | | TWICE DAILY, First dose on Tue | | AM PDT | | | | | 12/13/12 at 2100, Until | | | | | | | Discontinued | | | | | | + +-------+ +--------+---+---+ +-------+ +--------+---+---+ | Given | 12/20/19 | 8.8 mg | | | | | 13 9:06 | | | | | | PM PDT | | | | +-------+ +--------+---+---+ | Given | 12/20/19 | 8.8 mg | | | | | 13 10:02 | | | | | | AM PDT | | | | +-------+ +--------+---+---+ +---+---+ | | | +---+---+ + +-------+ +--------+---+---+ | senna (aka SENOKOT) liquid 8.8 | Given | 12/23/19 | 8.8 mg | | | | mg 8.8 mg (5 mL), oral, TWICE | | 13 10:25 | | | | | DAILY, First dose (after last | | AM PDT | | | | | modification) on Tue12/20/12 at | | | | | | | 2100, Until Discontinued | | | | | | + +-------+ +--------+---+---+ +-------+ +--------+---+---+ | Given | 12/22/19 | 8.8 mg | | | | | 13 8:03 | | | | | | PM PDT | | | | +-------+ +--------+---+---+ +---+---+ | | | +---+---+ + +-------+ + +---+---+ | senna-docusate (aka ALAN S) | Given | 12/07/19 | 1 tablet | | | | 8.6-50 mg 1 Tab 1 tablet, oral, | | 13 11:20 | | | | | TWICE DAILY, First dose on Tue | | PM PDT | | | | | 11/29/12 at 2245, Until | | | | | | | Discontinued | | | | | | + +-------+ + +---+---+ +-------+ + +---+---+ | Given | 12/06/19 | 1 tablet | | | | | 13 10:24 | | | | | | PM PDT | | | | +-------+ + +---+---+ | Given | 12/06/19 | 1 tablet | | | | | 13 9:03 | | | | | | AM PDT | | | | +-------+ + +---+---+ +---+---+ | | | +---+---+ + +-------+ + +---+---+ | senna-docusate (mandoa ALAN S) | Given | 12/14/19 | 1 tablet | | | | 8.6-50 mg 1 Tab 1 tablet, oral, | | 13 9:07 | | | | | TWICE DAILY, First dose on Tue | | AM PDT | | | | | 12/12/12 at 2100, Until | | | | | | | Discontinued | | | | | | + +-------+ + +---+---+ +-------+ + +---+---+ | Given | 12/13/19 | 1 tablet | | | | | 13 10:00 | | | | | | PM PDT | | | | +-------+ + +---+---+ +---+---+ | | | +---+---+ + +-------+ +-------+---+---+ | simvastatin (aka ZOCOR) tablet | Given | 11/29/19 | 20 mg | | | | 20 mg 20 mg, oral, EVERY | | 13 8:44 | | | | | EVENING, First dose on 11/26/12 | | PM PST | | | | | at 2100, Until Discontinued | | | | | | + +-------+ +-------+---+---+ +-------+ +-------+---+---+ | Given | 11/28/19 | 20 mg | | | | | 13 8:44 | | | | | | PM PST | | | | +-------+ +-------+---+---+ | Given | 11/27/19 | 20 mg | | | | | 13 8:43 | | | | | | PM PST | | | | +-------+ +-------+---+---+ +---+---+ | | | +---+---+ + +-------+ +-------+---+---+ | simvastatin (aka ZOCOR) tablet | Given | 12/04/19 | 20 mg | | | | 20 mg 20 mg, oral, EVERY | | 13 8:45 | | | | | EVENING, First dose on Tue12/01/12 | | PM PDT | | | | | at 2100, Until Discontinued | | | | | | + +-------+ +-------+---+---+ +-------+ +-------+---+---+ | Given | 12/03/19 | 20 mg | | | | | 13 9:41 | | | | | | PM PST | | | | +-------+ +-------+---+---+ | Given | 12/02/19 | 20 mg | | | | | 13 8:52 | | | | | | PM PST | | | | +-------+ +-------+---+---+ +---+---+ | | | +---+---+ + +-------+ +-------+---+---+ | simvastatin (aka ZOCOR) tablet | Given | 12/19/19 | 20 mg | | | | 20 mg 20 mg, oral, EVERY | | 13 8:37 | | | | | EVENING, First dose on Tue | | PM PDT | | | | | 12/15/12 at 2100, Until | | | | | | | Discontinued | | | | | | + +-------+ +-------+---+---+ +-------+ +-------+---+---+ | Given | 12/18/19 | 20 mg | | | | | 13 10:08 | | | | | | PM PDT | | | | +-------+ +-------+---+---+ | Given | 12/17/19 | 20 mg | | | | | 13 9:39 | | | | | | PM PDT | | | | +-------+ +-------+---+---+ +---+---+ | | | +---+---+ + +-------+ +-------+---+---+ | simvastatin (aka ZOCOR) tablet | Given | 12/20/19 | 20 mg | | | | 20 mg 20 mg, feeding tube, EVERY | | 13 9:06 | | | | | EVENING, First dose (after last | | PM PDT | | | | | modification) on Tue12/19/12 at | | | | | | | 2100, Until Discontinued | | | | | | + +-------+ +-------+---+---+ +---+---+ | | | +---+---+ + +-------+ +-------+---+---+ | simvastatin (aka ZOCOR) tablet | Given | 12/22/19 | 20 mg | | | | 20 mg 20 mg, oral, EVERY | | 13 8:03 | | | | | EVENING, First dose (after last | | PM PDT | | | | | modification) on Tue12/20/12 at | | | | | | | 2100, Until Discontinued | | | | | | + +-------+ +-------+---+---+ +-------+ +-------+---+---+ | Given | 12/21/19 | 20 mg | | | | | 13 8:39 | | | | | | PM PDT | | | | +-------+ +-------+---+---+ +---+---+ | | | +---+---+ + +---------+ +---+-------+---+ | sodium bicarbonate 8.4 % 150 | New Bag | 12/05/19 | | 150 | | | mEq in dextrose 5% IV infusion | | 13 5:39 | | mL/hr | | | intravenous, CONTINUOUS, Starting | | PM PDT | | | | | 12/04/12 at 1715, Until Tue | | | | | | | 12/05/12 at 0807 | | | | | | + +---------+ +---+-------+---+ +---+---+ | | | +---+---+ + +-------+ +--------+---+---+ | sodium bicarbonate 8.4 % | Given | 12/01/19 | 50 mEq | | | | injection 1 dose, Starting Mary | | 13 8:54 | | | | | 11/30/12 at 0843, Until Mary 11/30/12 | | AM PST | | | | | at 0854 | | | | | | + +-------+ +--------+---+---+ +---+---+ | | | +---+---+ + +-------+ +--------+---+---+ | sodium bicarbonate 8.4 % | Given | 12/01/19 | 50 mEq | | | | injection 1 dose, Starting Mary | | 13 9:16 | | | | | 11/30/12 at 0912, Until Mary 11/30/12 | | AM PST | | | | | at 0916 | | | | | | + +-------+ +--------+---+---+ +---+---+ | | | +---+---+ + +---------+ +--------+---+---+ | sodium bicarbonate 8.4 % | New Bag | 12/05/19 | 50 mEq | | | | injection NEEDED CONTINUOUS, | | 13 5:39 | | | | | Starting Tue12/04/12 at 1635, | | PM PDT | | | | | Until Tue12/04/12 at 1739 | | | | | | + +---------+ +--------+---+---+ +---------+ +--------+---+---+ | New Bag | 12/05/19 | 50 mEq | | | | | 13 5:09 | | | | | | PM PDT | | | | +---------+ +--------+---+---+ | New Bag | 12/05/19 | 50 mEq | | | | | 13 4:35 | | | | | | PM PDT | | | | +---------+ +--------+---+---+ +---+---+ | | | +---+---+ + +-------+ +---+---+---+ | sodium bicarbonate 8.4 % | Given | 12/05/19 | | | | | injection 1 dose, Starting Mon | | 13 6:30 | | | | | 12/04/12 at 1736, Until Mon | | PM PDT | | | | | 12/04/12 at 1830 | | | | | | + +-------+ +---+---+---+ +---+---+ | | | +---+---+ + +---------+ +---------+--------+---+ | sodium phosphate IV 15 mmol 15 | New Bag | 12/01/19 | 15 mmol | mL/hr | | | mmol, intravenous, ONCE, 1 dose, | | 13 9:06 | | | | | Mary 11/30/12 at 0830 | | AM PST | | | | + +---------+ +---------+--------+---+ +---+---+ | | | +---+---+ + +-------+ +------+---+---+ | sodium polystyrene (aka | Given | 12/07/19 | 30 g | | | | KAYEXALATE) suspension 30 g 30 | | 13 11:14 | | | | | g, oral, ONCE, 1 dose, Wed | | PM PDT | | | | | 12/06/12 at 2245 | | | | | | + +-------+ +------+---+---+ +---+---+ | | | +---+---+ + +-------+ +--------+---+---+ | thiamine tablet 100 mg 100 mg, | Given | 12/06/19 | 100 mg | | | | feeding tube, DAILY, First dose | | 13 9:05 | | | | | on 12/04/12 at 2000, Until | | AM PDT | | | | | Discontinued | | | | | | + +-------+ +--------+---+---+ +---+---+ | | | +---+---+ + +-------+ +--------+---+---+ | thiamine tablet 100 mg 100 mg, | Given | 12/11/19 | 100 mg | | | | oral, DAILY, First dose on Mary | | 13 9:00 | | | | | 12/07/12 at 1030, Until | | AM PDT | | | | | Discontinued | | | | | | + +-------+ +--------+---+---+ +-------+ +--------+---+---+ | Given | 12/10/19 | 100 mg | | | | | 13 9:00 | | | | | | AM PDT | | | | +-------+ +--------+---+---+ | Given | 12/08/19 | 100 mg | | | | | 13 10:41 | | | | | | AM PDT | | | | +-------+ +--------+---+---+ +---+---+ | | | +---+---+ + +-------+ +--------+---+---+ | thiamine tablet 100 mg 100 mg, | Given | 12/13/19 | 100 mg | | | | feeding tube, DAILY, First dose | | 13 12:42 | | | | | (after last modification) on [facility] | | PM PDT | | | | | 12/12/12 at 0900, Until | | | | | | | Discontinued | | | | | | + +-------+ +--------+---+---+ +---+---+ | | | +---+---+ + +-------+ +--------+---+---+ | thiamine tablet 100 mg 100 mg, | Given | 12/21/19 | 100 mg | | | | feeding tube, DAILY, First dose | | 13 8:46 | | | | | (after last modification) on [facility] | | AM PDT | | | | | 12/14/12 at 0900, Until | | | | | | | Discontinued | | | | | | + +-------+ +--------+---+---+ +-------+ +--------+---+---+ | Given | 12/20/19 | 100 mg | | | | | 13 10:04 | | | | | | AM PDT | | | | +-------+ +--------+---+---+ | Given | 12/19/19 | 100 mg | | | | | 13 9:19 | | | | | | AM PDT | | | | +-------+ +--------+---+---+ +---+---+ | | | +---+---+ + +-------+ +--------+---+---+ | thiamine tablet 100 mg 100 mg, | Given | 12/23/19 | 100 mg | | | | oral, DAILY, First dose (after | | 13 10:50 | | | | | last modification) on Mary 12/21/12 | | AM PDT | | | | | at 0900, Until Discontinued | | | | | | + +-------+ +--------+---+---+ +-------+ +--------+---+---+ | Given | 12/22/19 | 100 mg | | | | | 13 9:30 | | | | | | AM PDT | | | | +-------+ +--------+---+---+ +---+---+ | | | +---+---+ + +---------+ + +--------+---+ | vancomycin (aka VANCOCIN) IV | New Bag | 12/01/19 | 1,000 mg | mL/hr | | | 1,000 mg 1,000 mg, intravenous, | | 13 6:06 | | | | | ONCE, 1 dose, [facility] 11/30/12 at 1700 | | PM PST | | | | + +---------+ + +--------+---+ +---+---+ | | | +---+---+ + +---------+ + +--------+---+ | vancomycin (aka VANCOCIN) IV | New Bag | 12/05/19 | 1,000 mg | mL/hr | | | 1,000 mg 1,000 mg, intravenous, | | 13 6:31 | | | | | EVERY 24 HOURS, First dose on Mon | | PM PDT | | | | | 12/04/12 at 1430, Until | | | | | | | Discontinued | | | | | | + +---------+ + +--------+---+ +---+---+ | | | +---+---+ + +---------+ + +--------+---+ | vancomycin (aka VANCOCIN) IV | | 12/09/19 | 1,500 mg | mL/hr | | | 1,500 mg 1,500 mg, intravenous, | | 13 8:21 | | | | | DRUG LEVEL, Starting 12/04/12 | | PM PDT | | | | | at 1952, Until 12/09/12 at | | | | | | | 1337 | | | | | | + +---------+ + +--------+---+ +---------+ + +--------+---+ | | 12/07/19 | 1,500 mg | mL/hr | | | | 13 4:00 | | | | | | PM PDT | | | | +---------+ + +--------+---+ +---+---+ | | | +---+---+ + +---------+ + +--------+---+ | vancomycin (aka VANCOCIN) IV | | 12/02/19 | 1,750 mg | mL/hr | | | 1,750 mg 1,750 mg, intravenous, | | 13 5:00 | | | | | EVERY 24 HOURS, First dose (after | | PM PST | | | | | last modification) on Tue12/01/12 | | | | | | | at 1700, Until Discontinued | | | | | | + +---------+ + +--------+---+ +---+---+ | | | +---+---+ + +---------+ +-------+--------+---+ | vancomycin (aka VANCOCIN) IV | New Bag | 12/01/19 | 1.5 g | mL/hr | | | 1.5 g 1.5 g, intravenous, EVERY | | 13 9:45 | | | | | 24 HOURS, First dose on Tue | | AM PST | | | | | 11/30/12 at 0845, Until | | | | | | | Discontinued | | | | | | + +---------+ +-------+--------+---+ +---+---+ | | | +---+---+ + +---------+ + +--------+---+ | vancomycin (aka VANCOCIN) IV | New Bag | 12/05/19 | 2,000 mg | mL/hr | | | 2,000 mg 2,000 mg, intravenous, | | 13 5:06 | | | | | EVERY 24 HOURS, First dose (after | | PM PDT | | | | | last reorder) on 12/04/12 at | | | | | | | 1500, Until Discontinued | | | | | | + +---------+ + +--------+---+ +---+---+ | | | +---+---+ + + + + +---------+---+ | vasopressin in NS IV infusion | Rate/Dos | 12/02/19 | 1 | 1 mL/hr | | | (Pyxis) 2 Units/hr (rounded to 2 | e Change | 13 8:11 | Units/hr | | | | mL/hr), intravenous, CONTINUOUS, | | AM PST | | | | | Starting Mary 11/30/12 at 0845, | | | | | | | Until 12/02/12 at 0135 | | | | | | + + + + +---------+---+ +---------+ + +---------+---+ | New Bag | 12/01/19 | 2 | 2 mL/hr | | | | 13 8:54 | Units/hr | | | | | AM PST | | | | +---------+ + +---------+---+ +---+---+ | | | +---+---+ + + + + +---------+---+ | vasopressin in NS IV infusion | Rate/Dos | 12/06/19 | 1 | 1 mL/hr | | | (Pyxis) 1-4 Units/hr (rounded to | e Change | 13 3:00 | Units/hr | | | | 1-4 mL/hr), intravenous, | | AM PDT | | | | | CONTINUOUS, Starting Tue12/04/12 | | | | | | | at 1615, Until Tue12/05/12 at | | | | | | | 0807 | | | | | | + + + + +---------+---+ + + + +---------+---+ | Rate/Dose Change | 12/06/19 | 2 | 2 mL/hr | | | | 13 2:00 | Units/hr | | | | | AM PDT | | | | + + + +---------+---+ | New Bag | 12/05/19 | 4 | 4 mL/hr | | | | 13 4:15 | Units/hr | | | | | PM PDT | | | | + + + +---------+---+ +---+---+ | | | +---+---+ + + + + +---------+---+ | vasopressin in NS IV infusion | Rate/Dos | 12/08/19 | 1 | 1 mL/hr | | | (Pyxis) 1-4 Units/hr (rounded to | e Change | 13 8:30 | Units/hr | | | | 1-4 mL/hr), intravenous, | | PM PDT | | | | | CONTINUOUS, Starting 12/06/12 | | | | | | | at 0845, Until 12/10/12 at | | | | | | | 1624 | | | | | | + + + + +---------+---+ + + + +---------+---+ | Rate/Dose Change | 12/07/19 | 2 | 2 mL/hr | | | | 13 11:00 | Units/hr | | | | | PM PDT | | | | + + + +---------+---+ | Restarted | 12/07/19 | 4 | 4 mL/hr | | | | 13 9:00 | Units/hr | | | | | AM PDT | | | | + + + +---------+---+ +---+---+ | | | +---+---+ + +-------+ +------+---+---+ | warfarin (aka COUMADIN) tablet | Given | 12/23/19 | 1 mg | | | | 1 mg 1 mg, oral, ONCE, 1 dose, | | 13 10:51 | | | | | 12/22/12 at 0800 | | AM PDT | | | | + +-------+ +------+---+---+ +---+---+ | | | +---+---+ + +-------+ +------+---+---+ | warfarin (aka COUMADIN) tablet | Given | 12/22/19 | 2 mg | | | | 2 mg 2 mg, oral, EVERY EVENING, | | 13 8:04 | | | | | First dose on Tue12/20/12 at | | PM PDT | | | | | 2100, Until Discontinued | | | | | | + +-------+ +------+---+---+ +-------+ +------+---+---+ | Given | 12/21/19 | 2 mg | | | | | 13 8:38 | | | | | | PM PDT | | | | +-------+ +------+---+---+ +---+---+ | | | +---+---+ + +-------+ +--------+---+---+ | warfarin (aka COUMADIN) tablet | Given | 12/03/19 | 2.5 mg | | | | 2.5 mg 2.5 mg, oral, EVERY | | 13 9:41 | | | | | EVENING, First dose on Tue12/01/12 | | PM PST | | | | | at 2100, Until Discontinued | | | | | | + +-------+ +--------+---+---+ +-------+ +--------+---+---+ | Given | 12/02/19 | 2.5 mg | | | | | 13 8:52 | | | | | | PM PST | | | | +-------+ +--------+---+---+ +---+---+ | | | +---+---+ + +-------+ +--------+---+---+ | warfarin (aka COUMADIN) tablet | Given | 12/13/19 | 2.5 mg | | | | 2.5 mg 2.5 mg, oral, EVERY | | 13 10:00 | | | | | EVENING, First dose on Tue | | PM PDT | | | | | 12/12/12 at 2100, Until | | | | | | | Discontinued | | | | | | + +-------+ +--------+---+---+ +---+---+ | | | +---+---+ + +-------+ +--------+---+---+ | warfarin (aka COUMADIN) tablet | Given | 12/14/19 | 2.5 mg | | | | 2.5 mg 2.5 mg, feeding tube, | | 13 9:00 | | | | | EVERY EVENING, First dose (after | | PM PDT | | | | | last modification) on Tue12/13/12 | | | | | | | at 2100, Until Discontinued | | | | | | + +-------+ +--------+---+---+ +---+---+ | | | +---+---+ + +-------+ +--------+---+---+ | warfarin (aka COUMADIN) tablet | Given | 12/18/19 | 2.5 mg | | | | 2.5 mg 2.5 mg, feeding tube, | | 13 10:07 | | | | | EVERY EVENING, First dose (after | | PM PDT | | | | | last modification) on Tue12/14/12 | | | | | | | at 2100, Until Discontinued | | | | | | + +-------+ +--------+---+---+ +-------+ +--------+---+---+ | Given | 12/17/19 | 2.5 mg | | | | | 13 9:37 | | | | | | PM PDT | | | | +-------+ +--------+---+---+ | Given | 12/16/19 | 2.5 mg | | | | | 13 11:09 | | | | | | PM PDT | | | | +-------+ +--------+---+---+ +---+---+ | | | +---+---+ + +-------+ +------+---+---+ | warfarin (aka COUMADIN) tablet | Given | 12/04/19 | 5 mg | | | | 5 mg 5 mg, oral, EVERY EVENING, | | 13 8:45 | | | | | First dose (after last | | PM PDT | | | | | modification) on 12/03/12 at | | | | | | | 2100, Until Discontinued | | | | | | + +-------+ +------+---+---+ +---+---+ | | | +---+---+ + +-------+ +---+---+---+ | white petrolatum-mineral oil | Given | 12/14/19 | | | | | (aka LACRILUBE) 83-15 % | | 13 9:30 | | | | | ophthalmic ointment Both Eyes, | | PM PDT | | | | | EVERY 6 HOURS, First dose on Mon | | | | | | | 12/04/12 at 2200, Until | | | | | | | Discontinued | | | | | | + +-------+ +---+---+---+ +-------+ +---+---+---+ | Given | 12/14/19 | | | | | | 13 11:00 | | | | | | AM PDT | | | | +-------+ +---+---+---+ | Given | 12/13/19 | | | | | | 13 4:05 | | | | | | AM PDT | | | | +-------+ +---+---+---+ +---+---+ | | | +---+---+ documented in this encounter
--- OUTSIDE RECORDS SUMMARY | ~2019-09-13 | XMS | Encounter Summary ---
Demographics + + + | Address | [address] | | | [place] [address] | + + + | Home Phone | | + + + | Preferred Language | Unknown | + + + | Marital Status | Single | + + + | Hinduism Affiliation | Unknown | + + + | Race | Unknown | + + + | Ethnic Group | Unknown | + + + Author + + + | Author | [facility] | | | and [place] | + + + | Organization | [facility] | | [...] Team Providers + +------+ + | Care Shoe Coverer Name | Role | Phone | + +------+ + PCP | Unavailable | + +------+ + Encounter Details +--------+ + + + + | Date | Type | Department | Care Team | Description | +--------+ + + + + | 11/15/ | Orders Only | [facility] | Warren Crawley, | | | 2017 | | CARDIOLOGY [facility] | [address] | | | | | [address] | [place] | | | | | [place] | [address] | | | | | [address] | | | | | | [phone] | | | +--------+ + + + [...] [place] | | | | | | [id number] | | | | | | | | +--------+---------+ + + + documented as of this encounter Procedures + +--------+ + + + | Procedure Name | Priori | Date/Time | Associated Diagnosis | Comments | | | ty | | | | + +--------+ + + + | LIPID PANEL | Routin | 11/15/2017 | | Results for this | | | e | 11:25 AM | | procedure are in the | | | | PST | | results section. | + +--------+ + + + | MAGNESIUM | Routin | 11/15/2017 | | Results for this | | | e | 11:25 AM | | procedure are in the | | | | PST | | results section. | + +--------+ + + + | HEMOGLOBIN A1C | Routin | 11/15/2017 | | Results for this | | | e | 11:25 AM | | procedure are in the | | | | PST | | results section. | + +--------+ + + + | COMPREHENSIVE | Routin | 11/15/2017 | | Results for this | | METABOLIC PANEL | e | 11:25 AM | | procedure are in the | | | | PST | | results section. | + +--------+ + + + documented in this encounter Results Magnesium (11/15/2017 11:25 AM PST) + +-------+ + + + | Component | Value | Ref Range | Performed | Pathologist | | | | | At | Signature | + +-------+ + + + | Magnesium | 2.2 | 1.7 - 2.5 mg/dL | EXTERNAL | | | | | | LAB | | + +-------+ + + + + + | Specimen | + + | Blood specimen | | (specimen) | + + + +---------+ + + | Performing | Address | City/State/Zipcode | Phone Number | | Organization | | | | + +---------+ + + | EXTERNAL LAB | | | | + +---------+ + + Hemoglobin A1C (11/15/2017 11:25 AM PST) + + + + + + | Component | Value | Ref Range | Performed | Pathologist | | | | | At | Signature | + + + + + + | Hemoglobin | 5.6Comment: EST AVG | 5.7 % | EXTERNAL | | | A1c | GLUCOSE 114 mg/dL | | LAB | | | | AA | | | | + + + + + + + + | Specimen | + + | Blood specimen | | (specimen) | + + + +---------+ + + | Performing | Address | City/State/Zipcode | Phone Number | | Organization | | | | + +---------+ + + | EXTERNAL LAB | | | | + +---------+ + + Lipid Panel (11/15/2017 11:25 AM PST) + +--------+ + + + | Component | Value | Ref Range | Performed | Pathologist | | | | | At | Signature | + +--------+ + + + | Cholesterol | 81 | 200 mg/dL | EXTERNAL | | | | | | LAB | | + +--------+ + + + | Triglycerid | 89 | 30 - 150 mg/dL | EXTERNAL | | | es | | | LAB | | + +--------+ + + + | HDL | 35 (A) | 40 mg/dl | EXTERNAL | | | | | | LAB | | + +--------+ + + + | LDL | 28 | 100 mg/dL | EXTERNAL | | | Cholesterol | | | LAB | | | , | | | | | | Calculated, | | | | | | External | | | | | + +--------+ + + + | LDl/HDL | | | EXTERNAL | | | Ratio | | | LAB | | + +--------+ + + + | Chol/HDL | 2.3 | 4.97 | EXTERNAL | | | Ratio | | | LAB | | + +--------+ + + + | VLDL | 18 | 4 - 40 mg/dL | EXTERNAL | | | | | | LAB | | + +--------+ + + + | Non HDL | 46 | 130 | EXTERNAL | | | Chol. | | | LAB | | | (LDL+VLDL) | | | | | + +--------+ + + + + + | Specimen | + + | Blood specimen | | (specimen) | + + + +---------+ + + | Performing | Address | City/State/Zipcode | Phone Number | | Organization | | | | + +---------+ + + | EXTERNAL LAB | | | | + +---------+ + + Comprehensive Metabolic Panel (11/15/2017 11:25 AM PST) + + + + + + | Component | Value | Ref Range | Performed | Pathologist | | | | | At | Signature | + + + + + + | Glucose, | 115 (A) | 70 - 100 mg/dL | EXTERNAL | | | Fasting | | | LAB | | + + + + + + | BUN | 22 | 6 - 23 mg/dL | EXTERNAL | | | | | | LAB | | + + + + + + | Creatinine | 1.27 (A) | 0.70 - 1.18 | EXTERNAL | | | | | mg/dL | LAB | | + + + + + + | BUN/Creatin | 17.3 | 6.0 - 28.6 | EXTERNAL | | | ine Ratio | | | LAB | | + + + + + + | Calcium | 8.9 | 8.4 - 10.2 | EXTERNAL | | | | | mg/dL | LAB | | + + + + + + | Protein, | 6.5 | 6.0 - 8.0 g/dL | EXTERNAL | | | Total | | | LAB | | + + + + + + | Albumin | 3.9 | 3.5 - 5.0 | EXTERNAL | | | | | | LAB | | + + + + + + | Globulin | 2.6 | 1.8 - 3.5 | EXTERNAL | | | | | | LAB | | + + + + + + | A/G Ratio | 1.5 | 1.1 - 2.4 | EXTERNAL | | | | | | LAB | | + + + + + + | Bilirubin | 1.0 | 0.0 - 1.2 mg/dL | EXTERNAL | | | Total | | | LAB | | + + + + + + | ALP, | 65 | 31 - 120 | EXTERNAL | | | External | | | LAB | | + + + + + + | ALT | 32 | 7 - 52 U/L | EXTERNAL | | | | | | LAB | | + + + + + + | AST | 26 | 13 - 39 U/L | EXTERNAL | | | | | | LAB | | + + + + + + | Na | 136 | 132 - 143 | EXTERNAL | | | | | mmol/L | LAB | | + + + + + + | K | 3.9 | 3.6 - 5.1 | EXTERNAL | | | | | mmol/L | LAB | | + + + + + + | Cl | 103 | 95 - 112 mmol/L | EXTERNAL | | | | | | LAB | | + + + + + + | CO2 | 29 | 19 - 31 mmol/L | EXTERNAL | | | | | | LAB | | + + + + + + | Anion Gap | 7.9 | 7 - 21 mmol/L | EXTERNAL | | | | | | LAB | | + + + + + + | Estimated | 56 (A) | 60 mg/dL | EXTERNAL | | | GFR | | | LAB | | + + + + + + + + | Specimen | + + | Blood specimen | | (specimen) | + + + +---------+ + + | Performing | Address | City/State/Zipcode | Phone Number | | Organization | | | | + +---------+ + + | EXTERNAL LAB | | | | + +---------+ + + documented in this encounter Visit Diagnoses Not on filedocumented in this encounter"
--- OUTSIDE RECORDS SUMMARY | ~2019-09-13 | XMS | Encounter Summary ---
Demographics + + + | Address | [address] | | | [place] [address] | + + + | Home Phone | | + + + | Preferred Language | Unknown | + + + | Marital Status | Single | + + + | Druze Affiliation | CHR | + + + | Race | White | + + + | Ethnic Group | Not or | + + + Author + + + | Author | [facility] | + + + | Organization | [facility] | + + + | Address | Unknown | + + + | Phone | Unavailable | + + + Support + + + + + | Name | Relationship | Address | Phone | + + + + + | Joanne Zhang | [place] | [address] | | | | | [place] | | | | | [address] | | + + + + + | Linh Sibley | ECON | Unknown | | + + + + + Care Team Providers + +------+ + | Care Imaging Center Manager Name | Role | Phone | + +------+ + | No Pcp Per Patient | PCP | Unavailable | + +------+ + Encounter Details +--------+ + + + + | Date | Type | Department | Care Team | Description | +--------+ + + + + | 10/03/ | Doctor Of Naturopathic Medicine | [facility] | Ti Vallecillo | | | 2012 | | at [facility] | MD Melissa,MPH | | | | | [address] | | | | | | [address]: [address] | | | | | | Physician's | | | | | | [place], | | | | | | [place] [address] | | | | | | [phone] | | | +--------+ + + + [...]
--- OUTSIDE RECORDS SUMMARY | ~2019-09-13 | XMS | Encounter Summary ---
Demographics + + + | Address | [address] | | | [place] [address] | + + + | Home Phone | | + + + | Preferred Language | Unknown | + + + | Marital Status | Single | + + + | Presybeterian Affiliation | CHR | + + + | Race | White | + + + | Ethnic Group | Not or | + + + Author + + + | Author | [facility] | + + + | Organization | [facility] | + + + | Address | Unknown | + + + | Phone | Unavailable | + + + Support + + + + + | Name | Relationship | Address | Phone | + + + + + | Joanne Zhang | [place] | [address] | | | | | [place] | | | | | [address] | | + + + + + | Linh Pate | ECON | Unknown | | + + + + + Care Team Providers + +------+ + | Care Shelter Case Manager Name | Role | Phone | + +------+ + | Erick Bernstein DO | PCP | | + +------+ + Encounter Details +--------+ + + + + | Date | Type | Department | Care Team | Description | +--------+ + + + + | 04/11/ | Wellness Coordinator | Cardiothoracic | Kathy Torres, | 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) | | | | [address] | [address] | | | | | Mail[address]: [address] | [place], [place] | | | | | [facility] | [address] | | | | | [place], [place] | [phone] | | | | | [address] | | | | | | [phone] | | | +--------+ + + + [...] on filedocumented as of this encounter Results X-RAY CHEST 2 VIEW (01/04/2013 12:58 PM PDT) + + + + + + | Component | Value | Ref Range | Performed | Pathologist | | | | | At | Signature | + + + + + + | CHEST, 2 | STUDY: CHEST 2 VIEWS | | | | | VIEWS [place] | 01/04/13 12:58:00 | | | | | STEREO | INDICATION: Postop CABG | | | | | | COMPARISON: 12/19/12 | | | | | | FINDINGS: Sternotomy | | | | | | wires and surgical | | | | | | jose are in | | | | | | place.Cardiomediastinal | | | | | | silhouette is enlarged. | | | | | | Other support | | | | | | equipmenthas been | | | | | | removed. There is no | | | | | | pneumothorax or pleural | | | | | | effusion.Retrocardiac | | | | | | atelectasis has | | | | | | resolved. Osseous | | | | | | structures areunchanged | | | | | | IMPRESSION: Stable | | | | | | cardiomegaly with | | | | | | interval resolution of | | | | | | atelectasis. [...] | | | | | | RADHA 01/04/2013 | | | | | | 17:57 PM | | | | + + [...] graft | + + documented in this encounter"
--- OUTSIDE RECORDS SUMMARY | ~2019-09-13 | XMS | Encounter Summary ---
Demographics + + + | Address | [address] | | | [place] [address] | + + + | Home Phone | | + + + | Preferred Language | Unknown | + + + | Marital Status | Single | + + + | Congregational Affiliation | CHR | + + + | Race | White | + + + | Ethnic Group | Not or | + + + Author + + + | Author | [facility] | + + + | Organization | [facility] | + + + | Address | Unknown | + + + | Phone | Unavailable | + + + Support + + + + + | Name | Relationship | Address | Phone | + + + + + | Joanne Zhang | [place] | [address] | | | | | [place] | | | | | [address] | | + + + + + | Linh Pate | ECON | Unknown | | + + + + + Care Team Providers + +------+ + | Care Parking Technician Name | Role | Phone | + +------+ + | No Pcp Per Patient | PCP | Unavailable | + +------+ + Reason for Referral PROC - Inpatient Surgery (Routine) +--------+--------+ + + + + | Status | Reason | Specialty | Diagnoses / | Referred By | Referred To | | | | | Procedures | Contact | Contact | +--------+--------+ + + + + | Closed | | Cardiac | Diagnoses | Sean, | Sean | | | | Surgery | Coronary | MD Kike | MD Kike | | | | | atherosclero | [address] | [address] | | | | | sis of | [address] | [address] | | | | | unspecified | [address] | [address] [place], | | | | | type of | [place], [place] | [place] | | | | | vessel, | [address] | [address] | | | | | [place] or | | | | | | | graft | | | | | | | Procedures | | | | | | | REQUEST TO | | | | | | | SURGERY | | | | | | | DIVISIONAL MERCHANDISING MANAGER | | | | | | | [place] CABG, | | | | | | | ARTERIAL, | | | | | | | SINGLE [place] | | | | | | | CABG, | | | | | | | ARTERY-VEIN, | | | | | | | SINGLE [place] | | | | | | | CABG, | | | | | | | ARTERY-VEIN, | | | | | | | THREE | | | +--------+--------+ + + + + Encounter Details +--------+ + + + + | Date | Type | Department | Care Team | Description | +--------+ + + + + | 10/02/ | Parking Garage Manager | Cardiothoracic | Estrada, Kike, | Coronary | | 2012 | | Surgery at [facility] [address] | MD | atherosclerosis of | | | | [address] | | unspecified type of | | | | Mailcode: [address] | | vessel, [place] or | | | | [facility] | | graft (Primary Dx) | | | | [place], [place] | | | | | | [address] | | | | | | [phone] | | | +--------+ + + + [...] filedocumented as of this encounter Visit Diagnoses + + | Diagnosis | + + | Coronary atherosclerosis of unspecified type of vessel, [place] or graft - Primary | + + documented in this encounter"
--- OUTSIDE RECORDS SUMMARY | ~2019-09-13 | XMS | Encounter Summary ---
Demographics + + + | Address | [address] | | | [place] [address] | + + + | Home Phone | | + + + | Preferred Language | Unknown | + + + | Marital Status | Single | + + + | Islam Affiliation | CHR | + + + | Race | White | + + + | Ethnic Group | Not or | + + + Author + + + | Author | [facility] | + + + | Organization | [facility] | + + + | Address | Unknown | + + + | Phone | Unavailable | + + + Support + + + + + | Name | Relationship | Address | Phone | + + + + + | Joanne Zhang | [place] | [address] | | | | | [place] | | | | | [address] | | + + + + + | Linh Pate | ECON | Unknown | | + + + + + Care Team Providers + +------+ + | Care Corrosion Technician Name | Role | Phone | + +------+ + | Erick Bernstein DO | PCP | | + +------+ + Encounter Details +--------+ + + + + | Date | Type | Department | Care Team | Description | +--------+ + + + + | 12/04/ | Abstract | Cardiology [facility] at | Kyle Ambrose MD | | | 2012 | | [facility] [address] | [address] | | | | | [place] [address]: [address] | [facility] [address] | | | | | [facility] | [place] [address] | | | | | and [place], | [phone] | | | | | Building | | | | | | Floor [place], [place] | | | | | | [address] | | | | | | [phone] | | | +--------+ + + + [...]
--- OUTSIDE RECORDS SUMMARY | ~2019-09-13 | XMS | Encounter Summary ---
Demographics + + + | Address | [address] | | | [place] [address] | + + + | Home Phone | | + + + | Preferred Language | Unknown | + + + | Marital Status | Single | + + + | Latter-Day Affiliation | CHR | + + + | Race | White | + + + | Ethnic Group | Not or | + + + Author + + + | Author | [facility] | + + + | Organization | [facility] | + + + | Address | Unknown | + + + | Phone | Unavailable | + + + Support + + + + + | Name | Relationship | Address | Phone | + + + + + | Joanne Zhang | [place] | [address] | | | | | [place] | | | | | [address] | | + + + + + | Linh Pate | ECON | Unknown | | + + + + + Care Team Providers + +------+ + | Care Fleshing Machine Operator Name | Role | Phone | + +------+ + | Erick Bernstein DO | PCP | | + +------+ + Encounter Details +--------+ + + + + | Date | Type | Department | Care Team | Description | +--------+ + + + + | 12/11/ | Results | LAB REFERRED TESTS | Other, Faculty | | | 2012 | Only | [address] [facility] | [phone] | | | | | [address] | | | | | | [place], [place] | | | | | | [address] | | | +--------+ + + + [...] + | EJECTION FRACTION | Routin | 12/11/2012 | | Results for this | | | e | 11:20 AM | | procedure are in the | | | | PDT | | results section. | + +--------+ + + + documented in this encounter Results EJECTION FRACTION (12/11/2012 11:20 AM PDT) + + + + + + | Component | Value | Ref Range | Performed | Pathologist | | | | | At | Signature | + + + + + + | EJECTION | 35 - 40%Comment: EF | | [facility] | | | FRACTION | Recorded [...] DEPT OF | [address] | [place] | | | CARDIOLOGY | [address] | [address] | | + + + + + documented in this encounter Visit Diagnoses Not on filedocumented in this encounter"
--- OUTSIDE RECORDS SUMMARY | ~2019-09-13 | XMS | Encounter Summary ---
Demographics + + + | Address | [address] | | | [place] [address] | + + + | Home Phone | | + + + | Preferred Language | Unknown | + + + | Marital Status | Single | + + + | [employer] Affiliation | CHR | + + + | Race | White | + + + | Ethnic Group | Not or | + + + Author + + + | Author | [facility] | + + + | Organization | [facility] | + + + | Address | Unknown | + + + | Phone | Unavailable | + + + Support + + + + + | Name | Relationship | Address | Phone | + + + + + | Joanne Zhang | HERMILA | [address] | | | | | [place] | | | | | [phone] | | + + + + + | Linh Pate | ECON | Unknown | | + + + + + Care Team Providers + +------+ + | Care Graphic Technician Name | Role | Phone | [...] +--------+--------+ + + + + Encounter Details +--------+---------+ + + + | Date | Type | Department | Care Team | Description | +--------+---------+ + + + | 11/29/ | Surgery | 6A Intra Op [id number] | Narendra Lunsford, | CORONARY ARTERY | | 2012 | | [address] | | BYPASS GRAFTING X 3 | | | | Rd [facility] | | | | | | Hospital Admitting | | | | | | Desk Located on the | | | | | | 9th floor | | | | | | [place], [place] | | | | | | [address] | | | +--------+---------+ + + + Social History [...] Course: Mr. Josef Ramos was admitted to [facility] on 11/26/2012 for heparin bridge for LV [...] Lifelong non-smoker Core Measures: Diagnosis of Acute SD: No Diagnosis of CHF: Yes. Patient is on an RICKIE-I/ARB.. Patient is on a beta-jessy at dis charge. Follow Up: Cardiothoracic Surgery - Narendra Lunsford MD - 2 weeks PCP - Erick Bernstein DO - on d/c from [facility] Cardiology - Kyle Chavez MD - 4-6 weeks Disposition: [facility] Condition: fair Discharging Physician: Electronically signed by: Kathy WINSTON, PAJtC Department of Surgery | Division of Cardiothoracic Surgery Attending Physician: Narendra Lunsford MD OPERATIVE NOTE Date: 11/29/2012 Attending Surgeon: NARENDRA LUNSFORD MD Lime Burner(s): Kathy Castro PA-C No residents of the [...] were present during the team pause: Surgeon, assistant teaching professor, nursing, anesthesia, perfusion. Findings at Surgery: The [...] care unit. Narendra Lunsford MD, FACS, FACC Wellfield Technician, Department of Surgery Head, Adult Cardiac Surgery Co-Director, Multidisciplinary Heart Valve [facility] [place] | [email or web address] documented in this encounter Medications at Time [...] Intake/Output Summary (Last 24 hours) at 12/21/12 8404 Last data filed at 12/21/12 1400 Gross [...] of Surgery | Division of Cardiothoracic Surgery Joseph Cruz - 12/20 3:37 PM PDTCardiac Surgery Note Left IJ dialysis line discontinued. Heparin held x 2 hours (INR 1.8). Manual pressure claritza lied to puncture site x 5 minutes. No active bleeding after removal. Occlusive dressing ap plied to site. Tolerated well by Mr. Ramos Resume heparin gtt in 1 hour (Electronically Signed) Joseph Lewis PA-C [facility] Cardiac Surgery athy Castro PA - 12/20 1:39 PM PDT Cardiothoracic Surgery [...] outpatient follow up. MD MEHDI Moses MD [facility] [address]K [address] [address] [facility] DE[facility]MENT[id number] Place of Service: - CSN: [id number] Suggested Modifier: GC Resident Involved rotain, Josse [...] plan. Josse Rojas MD Nephrology Fellow Pager [phone] SUBJECTIVE & INTERVAL EVENTS: No significant overnight [...] injection 7 Units 7 Units Subcutaneous Q8H lgxlsgzqbxbp-hivi-jgaelzpk (aka CEROVITE) liquid 15 mL 15 mL [...] Recent Labs Basename 12/20/12 0603 12/19/12 0503 12/18/1244212/12/12 0400 12/11/12 0200 12/10/12 020 5 NA 148* 147* 145 -- -- -- K 3.9 4.0 3.9 -- -- -- CL 112* 113* 111* -- -- -- BICARB 24 23 23 -- -- -- BUN 57* 59* [...] EOSPERC -- -- -- 3 1 3 athy Castro P A - 12/19/2012 10:56 AM PDT [...] for tunneled HD cath (tentatively planned for allowing for INR t o decrease) LV [...] Dispo: 11K cont care Electronically signed by: NATALYA TalleyC Department of Surgery | Division of Cardiothoracic Surgery Mehdi Earl M D - 12/19/2012 7:17 AM PDTI performed a history and physical examination of the patient and discussed his management with the resident. I reviewed the resident s note and agree wit h the documented findings and plan of care. MD MEHDI Moses MD [facility] [address] [address] [facility] DEPARTMENT: [id number]- [facility] NEPHROLOGY [facility] Place of Service: CSN: [id number] Suggested Modifier: GC Resident Involved Josse Mcgowan [...] as he would likely not need further STRIP CUTTER. Hypernatremia- Mild, likely due to impaired access [...] plan. Josse Rojas MD Nephrology Fellow Pager [phone] SUBJECTIVE & INTERVAL EVENTS: No significant overnight [...] injection 7 Units 7 Units Subcutaneous Q8H biindmjqdkuk-wlgy-ijrgzadk (aka CEROVITE) liquid 15 mL 15 mL [...] Neuro: Grossly non-focal LABS/STUDIES: Recent Labs Basename 12/19/12 05012/18/1244212/17/12 0529 12/12/12 0400 12/11/12 0200 12/10/12 020 5 NA 147* 145 143 -- -- -- K 4.0 3.9 3.8 -- -- -- CL 113* 111* 108 -- -- -- BICARB 23 23 24 -- -- -- BUN 59* 57* 46* -- -- -- CR 3.79* 3.74* 3.08* -- -- -- AST -- -- -- 156* 216* 286* ALT -- -- -- 771* 1100* 1423* TBILI -- -- -- 2.6* 3.4* 4.6* AP -- -- -- 229* 199* 172* TP -- -- -- 6.5 6.2 5.9* Recent Labs Basename 12/19/12 05012/18/1244212/17/12 0529 CA 8.8 8.8 8.6 MG 2.5 2.3 [...] 3.8 3.7 CL 111* 108 111* BICARB 24 BUN 57* 46* 58* CR 3.74* 3.08* 3.56* CA 8.8 8.6 8.7 MG 2.3 2.1 2.3 PO4 4.0 3.3 3.5 CBC with diff last 72 hours (or 3 results) Recent Labs Basename 12/18/1244212/17/12 0529 12/16/12 0520 WBC 8.3 8.5 7.8 [...] JOHNNY RASCON PA-C Division of Cardiothoracic Surgery [facility] Mail Code L353 [address] [facility] [phone] Mehdi Earl M D - 12/18/2012 8:04 AM PDTI performed a history and physical examination of the patient and discussed his management with the resident. I reviewed the resident s note and agree wit h the documented findings and plan of care. MD MEHDI Moses MD [place] [id number] [address] [facility] DEPARTMENT: [id number] Place of Service: CSN: [id number] Suggested Modifier: GC Resident Involved Josse Mcgowan [...] from ATN can take weeks to months, monica d start planning for outpatient HD- alert CM and order HCV Ab, HBVsAb, and try to arrange pe cat for later this week. RECOMMENDATIONS: See recommendations above in bold. We will continue to follow and offer additional recommendations as his clinical course unfo lds. Patient was seen and staffed with Dr. Blue, who agrees with the assessment and plan. Josse Rojas MD Nephrology Fellow Pager [phone] SUBJECTIVE & INTERVAL EVENTS: No significant overnight [...] injection 7 Units 7 Units Subcutaneous Q8H dhkijnkehvin-iolf-bsrhivgz (aka CEROVITE) liquid 15 mL 15 mL [...] Neuro: Grossly non-focal LABS/STUDIES: Recent Labs Basename 12/18/1244212/17/1252812/16/12 0520 12/12/12 0400 12/11/12 0200 12/10/12 020 5 NA 145 143 147* -- -- -- K 3.9 3.8 3.7 -- -- -- CL 111* 108 111* -- -- -- BICARB 24 -- -- -- BUN 57* 46* 58* [...] PTH -- -- -- Recent Labs Basename 12/18/1244212/17/12 0529 12/16/12 0520 12/12/12 0400 12/11/12 0200 12/10/12 020 [...] EOSPERC -- -- -- 3 1 3 Mehdi Earl MD - 12/17/2012 9:53 AM PDT Nephrology [...] CALAZIME) topical paste, , Topical, QID PRN ssmcscdkvupr-xzzu-lnakwnvd (aka CEROVITE) liquid 15 mL, 15 mL, [...] Intake/Output Summary (Last 24 hours) at 12/17/12 0943 Last data filed at 12/17/12 0610 Gross [...] to set up outpatient HD/tunneled HD line [facility] DEPARTMENT: [id number] Place of Service: - CSN: [id number] Suggested Modifier: None Sidney Olson MD - [...] DNR/DNI - Continue care GLORIA ENNIS MD Mehid Earl MD - 12/16/2012 9:22 AM PDT Nephrology Progress note Interval events: pt transferred to 11K, awake but minimally responsive this AM Medications: [...] CALAZIME) topical paste, , Topical, QID PRN sxkrtynpzllo-gcsk-aryjlcen (aka CEROVITE) liquid 15 mL, 15 mL, [...] may need to set up outpatient HD [facility] DEPARTMENT: [id number] Place of Service: [id number] - CSN: [id number] Suggested Modifier: None Johnny Morataya PA- C [...] (or 3 results): Recent Labs Basename 12/16/12 0512/15/12 0525 12/14/12 0200 NA 147* 144 145 K 3.7 3.9 3.6 CL 111* 108 108 BICARB 24 27 25 BUN 58* 47* 71* CR 3.56* 3.16* 4.22* CA 8.7 8.5* 8.1* MG 2.3 2.1 2.3 PO4 3.5 3.2 4.4 CBC with diff last 72 hours (or 3 results) Recent Labs Basename 12/16/12 0512/15/12 0525 12/14/12 0200 WBC 7.8 10.1 8.4 [...] JOHNNY RASCON PA-C Division of Cardiothoracic Surgery [facility] [place] Mail Code L353 [address] [facility] [id number] Veronika Bolaños MD - 12/15/2012 1:06 PM PDT [facility] DAILY PROGRESS NOTE (Resident) Team Pager: [phone] Attendin Author: Veronika Palacios MD Date:12/15/2012 Attending Vendor Analyst: Operating Surgeon: MD Narendra Ellison MD [...] - 12/15/2012 9:02 AM PDT [facility] ATTENDING AIRLINE STATION AGENT PROGRESS NOTE Team Pager: [phone] Attendin I saw and examined the patient [...] Department of Anesthesiology and Ольга-Operative Medicine [address] [facility] [place] [address] [facility] DEPARTMENT: [facility] ICU CARDIAC [[id number]] Place of Service:- Inpatient Date of Service: 12/15/2012 CSN: [id number] Suggested Modifier: GC - Resident Involved Suggested CPT: TO VOCATIONAL COORDINATOR 9: 10 AM Veronika Bolaños MD - 12/14/2012 12:42 PM PDTFormatting of this note might be differ ent from the original. [facility] DAILY PROGRESS NOTE (Resident) Team Pager: [phone] Attendin Author: Veronika Palacios MD Date:12/14/2012 Attending Vendor Analyst: Operating Surgeon: MD Narendra Ellison MD [...] ble. Chest: clear and equal bilaterally Incision:CDI. Hsabnam to bulb Cardiac: Rhythm: NSR RRR and no M/G/R Abdomen: soft and obese Extremities: 2+ edema Skin: normal Tubes/Lines (insertion date): LIJ dialysis catheter (12/10/12) Leslie catheter (12/04/12) DHT 12/12 Feeding: Tube feeds Analgesia:oxycodone Sedation: None Thromboprophylaxis: Heparin infusion Head of Bed: Head of Bed >30 degrees Ulcer Prophylaxis:Omeprazole Glycemic control: NPH/lispro Veronika Palacios MD utch ens, Heidi Dunbar MD - 12/14/2012 8:13 AM PDT [facility] ATTENDING AIRLINE STATION AGENT DAILY PROGRESS NOTE Team Pager: [phone] Attendin Date:12/14/2012 Author: HEIDI NIETO MD Attestation: [...] patient who is currently criti ryan ill. EPIC DEPARTMENT: [facility] ICU CARDIAC [[id number]] Place of Service:- Inpatient Date of Service: 12/14/2012 CSN: [id number] Suggested Modifier: GC - Resident Involved Suggested CPT: TO VOCATIONAL COORDINATOR Respiratory: Recent Labs Basename 12/12/12 0819 12/12/12 [...] 0200 12/13/12 1625 12/13/12 0946 12/13/12 0330 12/12/12 2021 WBC 8.4 8.8 -- 10.0 -- HB [...] (aka CALAZIME) topical paste Topical QID PRN erzifmdusnkr-rmlu-nitpcntp (aka CEROVITE) liquid 15 mL 15 mL [...] this note might be different from the bd PRESSLEY ATTENDING AIRLINE STATION AGENT PROGRESS NOTE Team Pager: [phone] Attendin TTE performed this AM discussed with [...] Department of Anesthesiology and Ольга-Operative Medicine [address] [place] [address] [facility] DEPARTMENT: [facility] ICU CARDIAC [[id number]] Place of Service:- Inpatient Date of Service: 12/13/2012 CSN: [id number] Suggested Modifier: None Suggested CPT: TO VOCATIONAL COORDINATOR 3: 12 PM BRIDGERSalVeronika eubanks MD - 12/13/2012 9:07 AM PDTFormatting of this note might be differ ent from the original. [facility] DAILY PROGRESS NOTE (Resident) Team Pager: [phone] Attendin Author: Veronika Palacios MD Date:12/13/2012 Attending Vendor Analyst: Operating Surgeon: MD Narendra Ellison MD [...] closure 12/10/12 - Dialysis catheter place in [facility]; CRRT initiated for acute kidney failure and [...] MD - 7:41 AM PDT [facility] ATTENDING AIRLINE STATION AGENT DAILY PROGRESS NOTE Team Pager: [phone] Attendin Date:12/13/2012 Author: HEIDI NIETO MD Attestation: [...] patient who is currently criti ryan ill. [facility] DEPARTMENT: [facility] ICU CARDIAC [[id number]] Place of Service:[address]- Inpatient Date of Service: 12/13/2012 CSN: [id number] Suggested Modifier: GC - Resident Involved Suggested CPT: TO VOCATIONAL COORDINATOR Respiratory: Recent Labs Basename 12/12/12 0819 12/12/12 0400 FIO2 .4 .40 PH 7.48* 7.46* PCO2 36 38 PO2 112* 113* HCO3 26 27 ABGEXCESS 3.2 3.0 Renal: Intake/Output Summary (Last 24 hours) at 12/13/12 0741 Last data filed at 12/13/12 0600 Gross per 24 hour Intake 89787.7 ml Output 53556 ml Net 152.7 ml ID: Temp (24hrs), [...] 5 days Recent Labs Basename 12/13/12 0525 03/20/32912/13/1232112/12/12 16512/12/12 0819 12/12/12 040 0 NA -- 143 [...] -- 3.9 3.1 -- Recent Labs Basename 12/13/1232912/12/12202012/12/12164912/12/12 1319 12/12/12 0400 12/11/12 020 0 WBC [...] Eyes Q6 H Florencia Bender MD - 12/12/2012 11:07 PM PDT [facility] ATTENDING AIRLINE STATION AGENT NIGHT PROGRESS NOTE Team Pager: [phone] Attendin Events of the day, patient condition, [...] this patient who is critically ill (Josef Abel [facility] [id number] ) Oriana Ram MD [employer] Department of Anesthesiology and Ольга-Operative Medicine Critical Care EPIC DEPARTMENT: [facility] ICU CARDIAC [[id number]] Place of Service:- Inpatient Date of Service: 12/12/2012 CSN: [id number] Suggested Modifier: Suggested CPT: TO VOCATIONAL COORDINATOR Data below used in this assessment: Hemodynamics: [...] 12/12/12 2200 Gross per 24 hour Intake 04624.4 ml Output 22783 ml Net -166.6 ml Recent Labs Basename [...] [facility] DAILY PROGRESS NOTE (Resident) Team Pager: [phone] Attendin Author: Veronika Palacios MD Date:12/12/2012 Attending Vendor Analyst: Operating Surgeon: MD Narendra Ellison MD [...] Glycemic control: Insulin infusion Veronika Palacios MD uHeidi vinson MD - 12/12/2012 8:05 AM PDT [facility] ATTENDING AIRLINE STATION AGENT DAILY PROGRESS NOTE Team Pager: [phone] Attendin Date:12/12/2012 Author: HEIDI NIETO MD Attestation: [...] patient who is currently criti ryan ill. [facility] DEPARTMENT: [facility] ICU CARDIAC [[id number]] Place of Service:- Inpatient Date of Service: 12/12/2012 CSN: [id number] Suggested Modifier: GC - Resident Involved Suggested CPT: TO VOCATIONAL COORDINATOR Hemodynamics: Hemodynamic Drips: Arterial BP Mean: 76 [...] 12/12/12 0700 Gross per 24 hour Intake 78107.16 ml Output 93275 ml Net -382.84 ml ID: Temp (24hrs), [...] Labs Basename 12/12/12 0659 12/12/12 0609 12/12/12 0400 12/11/12 2359 12/11/121999 NA -- -- 142 142 [...] (aka CALAZIME) topical paste Topical QID PRN txxxxmrzvlpo-izwl-ckpjnfvt (aka CEROVITE) liquid 15 mL 15 mL [...] % ophthalmic ointment Both Eyes Q6 H nomoFlorencia last MD - 12/11/2012 11:21 PM PDT [facility] ATTENDING AIRLINE STATION AGENT NIGHT PROGRESS NOTE Team Pager: [phone] Attendin Events of the day, patient condition, [...] patient who is critically ill (Josef Roman [facility] [id number] ) Oriana Ram MD [employer] Department of Anesthesiology and Ольга-Operative Medicine Critical Care EPIC DEPARTMENT: [facility] ICU CARDIAC [[id number]] Place of Service:[address]- Inpatient Date of Service: 12/11/2012 [facility]: [id number] Suggested Modifier: Suggested CPT: TO VOCATIONAL COORDINATOR Data below used in this assessment: Hemodynamics: Hemodynamic Drips: Arterial BP Mean: 76 mmHg (12/04/12 1556) CVP Mean: 38 mmHg (12/10/12 1400) CO (cardiac output): 8.04 (12/10/12 0800) CI (cardiac index): 2.99 (12/10/12 0800) PAP Mean: 16 mmHg (12/10/12 1400) SVR (systemic vascular resistance): 686 (12/10/12 0800) Epi 0.01 Active Problems: Coronary artery disease Intake/Output Summary (Last 24 hours) at 12/11/122321 Last data filed at 12/11/122199 Gross per 24 hour Intake 50523.36 ml Output 53942 ml Net -761.64 ml Recent Labs Basename 12/11/12230212/11/12219912/11/12205812/11/12199912/11/12 1646 12/11/12 121 1 NA -- -- [...] 3.7 4.4 4.3 Recent Labs Basename 12/11/12 02012/10/12 02012/09/12 0154 WBC 14.6* 17.2* 14.3* HB 8.8* 8.5* 8.3* HCT 25.5* 24.8* 24.3* PLT 234 190 175 APTT -- -- -- INRPT -- -- -- Recent Labs Basename 12/11/12199912/11/12 164 FIO2 .4 ng PH 7.47* 7.45* PCO2 [...] H2O (12/11/12758) PK Flow: 80 L/min (12/11/12 075) RSBI at 5 min: 43.01 (12/11/12 135) Proceed to 30 min SBT: Yes, proceed to 30 min SBT (12/11/121358) RSBI at 30 min: 40.27 (12/11/12 1432) [...] (aka CALAZIME) topical paste Topical QID PRN pemvodydstrh-iuzz-dhjvxxol (aka CEROVITE) liquid 15 mL 15 mL [...] % ophthalmic ointment Both Eyes Q6 H pencer Short - 12/11/2012 11:47 AM PDTTransthoracic echocardiogram completed. Final report to follow. Marcy Salas DO - 12/11 9:15 AM PDT [facility] ATTENDING AIRLINE STATION AGENT DAILY PROGRESS NOTE Team Pager: [phone] Attending Pager: [phone] Author: MARCY SIFUENTES DO ATTESTATION: I saw [...] who is critically ill. Marcy Sifuentes DO [employer] Department of Anesthesiology and Perioperative Medicine [facility] DEPARTMENT: [facility] ICU CARDIAC [[id number]] Place of Service:- Inpatient Date of Service: 12/11/2012 CSN: [id number] Suggested Modifier: GC - Resident Involved Suggested CPT: TO VOCATIONAL COORDINATOR Precious Ramires MD - 5:58 AM PDT [facility] DAILY PROGRESS NOTE (Resident) Team Pager: [phone] Attendin Author: PRECIOUS ALVARADO MD Date:12/11/2012 Attending Vendor Analyst: Operating Surgeon: MD Narendra Figueroa MD [...] infusion PRECIOUS ALVARADO MD Johnny Mcmahon PA- Sofia - 12/11/2012 4:02 AM PDTUpdate: - R [...] im plementation of plans. JOHNNY MERAZ PA-C [facility] DEPARTMENT: [facility] ICU CARDIAC [[id number]] Place of Service:- Inpatient Date of Service: 12/11/2012 CSN: [id number] Suggested Modifier: None Suggested CPT: TO VOCATIONAL COORDINATOR Mack Malagon MD - 12/10/2012 2:15 PM PDT [facility] DEPARTMENT: [facility]- [id number] Place of Service: - Date of Service: 12/10/2012 CSN: [id number] Modifiers:GC Resident Involved: yes Suggested CPT: 42527 Critical Care, Initial 30-74 minutes 36 minutes total time spent in Critical care independent of procedures. My impression, recent events and assesment are at the top of this note. Today's data which were reviewed are listed below the A&P I saw and examined JOSEF RAMOS with the [facility] housestaff. I agree with the written assess [...] Value Range Status 12/10/2012 Final Value: STUDY: [place] CHEST 1 VIEW 12/10/12 05:41:00 HISTORY: Evaluate [...] signed / PRECIOUS HOLT 12/10/2012 10:53 AM irgaetano, Dorys Black MD - 12:58 PM PDTI saw and examined patient with Dr. Parihs and agree with her findings an d plan. Please do not give free water as CVVH starting soon, and don't want to correct too quickly/ over-correct. [facility] DEPARTMENT: [id number]- [facility] NEPHROLOGY [facility] Place of Service: - IP CSN: [id number] Suggested Modifier: GC Resident Involved abib, Kenia [...] IV infusion 0.5-1 mg/min Intravenous CONTINUOUS Ashwin Palacios MD 16.67 mL/hr at 12/10/12 1200 0.5 [...] topical paste Topical QID PRN SARANYA Young iaxttziatcil-vhha-erzuhyqu (aka CEROVITE) liquid 15 mL 15 mL [...] 17 g Oral DAILY PRN SARANYA Young simethicone chew (aka MYLICON) tablet 80 [...] 3 results) Recent Labs Basename 12/10/12 0205 12/09/1215312/08/12 18012/08/12 0200 WBC 17.2* 14.3* 14.1* -- HB 8.5* 8.3* 8.1* -- HCT 24.8* 24.3* 24.2* -- PLT 190 175 184 -- NEUTROPERC 84* 72* -- 82* BANDPCT 3 8 -- -- LYMPHPERC 2* 8* -- 8* MONOPERC 7 8 -- 7 BASOPERC 1 1 -- 0 EOSPERC 3 3 -- 3 PLEASE SEE ASSESSMENT AND PLAN AT THE TOP OF THIS NOTE Precious Ramires MD - 12/10/2012 6:05 AM PDT [facility] DAILY PROGRESS NOTE (Resident) Team Pager: [phone] Attendin Author: PRECIOUS ALVARADO MD Date:12/10/2012 Attending Vendor Analyst: Operating Surgeon: MD Narendra Green MD [...] n ot want to place in groin). arelyrgaetano, Dorys Black MD - 12/09/2012 1:34 PM PDTI saw and examined patient with Dr. Jem fernandez agree with her findings and plan. [facility] DEPARTMENT: [id number]- [facility] NEPHROLOGY [facility] Place of Service: CSN: [id number] Suggested Modifier: GC Resident Involved enia Parish MD - 1:34 PM PDT NEPHROLOGY PROGRESS [...] topical paste Topical QID PRN SARANYA Young fhqxvwesdohp-zuhr-qvmyrcyc (aka CEROVITE) liquid 15 mL 15 mL [...] PLAN AT THE TOP OF THIS NOTE eronika Palacios MD - 0 12/09/2012 12:41 PM PDT [facility] DAILY PROGRESS NOTE (fellow) Team Pager: [phone] Attendin Author: Veronika Palacios MD Date:12/09/2012 Attending Vendor Analyst: Operating Surgeon: MD Narendra Snyder MD [...] Physical Exam: Neuro: opens eyes to voice. Wilks. Withdraws to pain in all 4 extremities [...] different from the or iginal. [facility] ATTENDING AIRLINE STATION AGENT DAILY PROGRESS NOTE Team Pager: [phone] Attending Pager: [phone] Author: ELMIRA SALGUERO MD ATTESTATION: I saw and evaluated the patient at the bedside together with Dr. Palacios. Please see their note for a detailed rounding summary. I reviewed the documented findings, relevant data, and recent imaging available. I agree with the assessment and plan as described in [facility] resident's note with the following exceptions/additions as noted below. HPI: 67 yo man with hx of CAD s/p 3V CABG (DE [place] ROSA --> LAD, SVG --> OM, PDA) on 11/29/12, development al delay, morbid obesity, VT, LV thrombus, HTN, and CKD (baseline Cr ~1.5) who returned to [facility] ICU from the [facility] for shortness [...] who is critically ill. Elmira Salguero MD [employer] Strandinserting machine operator Pulmonary and Critical Care Medicine [facility] DEPARTMENT: [facility] [id number] Place of Service: - Date of Service: 12/09/2012 CSN: [id number] Modifiers: Resident Involved: yes Suggested CPT: 67139 Critical Care, Initial 30-74 minutes Mack Malagon MD - 11/24 8:08 PM PDT [facility] DEPARTMENT: [facility]- [id number] Place of Service: - Date of Service: 12/08/2012 CSN: [id number] Modifiers: Resident Involved: yes Suggested CPT: 64144 Critical Care, Initial 30-74 minutes 42 minutes total time spent in Critical care independent of procedures. My impression, recent events and assesment are at the top of this note. Today's data which were reviewed are listed below the A&P I saw and examined JOSEF RAMOS with the [facility] housestaff. I agree with the written [...] Hours (or 3 results): Recent Labs Basename 12/08/12180312/08/12 0200 12/07/12 1609 12/07/12 0102 NA 147* 147* 146* -- K 4.2 4.7 4.5 -- CL 107 106 104 -- BICARB 27 27 26 -- BUN 109* 115* 118* -- CR 6.17* 6.32* 6.44* -- CA 9.0 7.9* 7.9* -- MG -- 3.1* 3.0* 2.9* PO4 8.4* 9.0* 9.6* -- CBC with diff last 72 hours (or 3 results) Recent Labs Basename 12/08/12 18012/08/12 0200 12/07/12 0202 12/06/127 12/06/12 0228 WBC 14.1* 17.2* 19.5* -- -- [...] Date Value Range Status 12/08/2012 Final Value: AZ CHEST 1 VIEW, 12/08/12 05:49:00 COMPARISON: 12/07/12 [...] closed Dispo: Critical, stable to SICU Dictation: [id number] HELEN GEE MD Cardiothoracic Surgery Fellow Elmira Rutherford MD - 12/08/2012 7:32 AM PDT [facility] ATTENDING AIRLINE STATION AGENT DAILY PROGRESS NOTE Team Pager: [phone] Attending Pager: [phone] Author: ELMIRA SALGUERO MD ATTESTATION: I saw and evaluated the patient at the bedside together with Dr. Palacios. Please see their note for a detailed rounding summary. I reviewed the documented findings, relevant data, and recent imaging available. I agree with the assessment and plan as described in [facility] resident's note with the following exceptions/additions as noted below. HPI: 67 yo man with hx of CAD s/p 3V CABG (DE LA ROSA --> LAD, SVG --> OM, PDA) on 11/29/12, development al delay, morbid obesity, VT, LV thrombus, HTN, and CKD (baseline Cr ~1.5) who [facility] for [facility]ness [...] who is critically ill. Elmira Salguero MD Spooler Rubber Strandinserting machine operator Pulmonary and Critical Care Medicine [facility] DEPARTMENT: [facility], [facility]- [id number] Place of Service: - Date of Service: 12/08/2012 CSN: [id number] Modifiers:GC Resident Involved: yes Suggested CPT: 70010 Critical Care, Initial 30-74 minutes alraimundo, MD Veronika - 6:04 AM PDT 8[facility] DAILY PROGRESS NOTE (fellow) Team Pager: [phone] Attendin Author: Veronika Palacios MD Date:12/08/2012 Attending Vendor Analyst: Operating Surgeon: MD Narendra Snyder MD [...] note might be different from the mónica ginal. [facility] DEPARTMENT: [facility]- [id number] Place of Service: Date of Service: 12/07/2012 CSN: [id number] Modifiers:GC Resident Involved: yes Suggested CPT: 67803 Critical Care, Initial 30-74 minutes 33 minutes total time spent in Critical care independent of procedures. My impression, recent events and assesment are at the top of this note. Today's data which were reviewed are listed below the A&P I saw and examined JOSEF RAMOS with the [facility] housestaff. I agree with the written assess ment and plan. 24 hour course summary and observations Still unresponsive on vent Declining pressor needs Brisk autodiuresis k is down from yesterday High residuals with TF Stable on heparin Plan for OR tomorrow for washout Assessment and Plan Post tamponade with open chest Cardiogenic and vasodilatory shock Leukocytosis Fluid overload Kourtney, non-oliguric Encephalopathy Cad post cabg Phos binders Try to keep no more than a liter negative per day Continue abx Intake/Output Summary (Last 24 hours) at 12/07/122029 Last data filed at 12/07/12 2000 Gross per 24 hour Intake 4940.01 ml [...] Value Range Status 12/07/2012 Final Value: STUDY: [place] CHEST 1 VIEW 12/07/12 06:14:00 CLINICAL DATA: [...] 8[facility] DAILY PROGRESS NOTE (fellow) Team Pager: [phone] Attendin Author: Veronika Palacios MD Date:12/07/2012 Attending Vendor Analyst: Operating Surgeon: MD Narendra Snyder MD [...] different from the or iginal. 8[facility] ATTENDING AIRLINE STATION AGENT DAILY PROGRESS NOTE Team Pager: [phone] Attending Pager: [phone] Author: ELMIRA SALGUERO MD ATTESTATION: I saw and evaluated the patient at the bedside together with Dr. Palacios. Please see their note for a detailed rounding summary. I reviewed the documented findings, relevant data, and recent imaging available. I agree with the assessment and plan as described in [facility] resident's note with the following exceptions/additions as noted below. HPI: 67 yo man with hx of CAD s/p 3V CABG (DE LA ROSA --> LAD, SVG --> OM, PDA) on 11/29/12, development al delay, morbid obesity, VT, LV thrombus, HTN, and CKD (baseline Cr ~1.5) who returned to [facility] for [facility]ness [...] open chest - renal consult and recs ([facility] care) -- watch for dialysis needs - cont heparin infusion, titrate to heparin levels 0.3 -- 0.5, ATIII >0.5 - trophic tube feeds - I/O: do not allow to become significantly more negative than 1L I have spent 35 minutes in the care and management of this patient (not including procedure s), who is critically ill. Elmira Salguero MD Spooler Rubber Strandinserting machine operator Pulmonary and Critical Care Medicine [facility] DEPARTMENT: [facility]- [id number] Place of Service: Date of Service: 12/07/2012 CSN: [id number] Modifiers:GC Resident Involved: yes Suggested CPT: 47186 Critical Care, Initial 30-74 minutes Mack Malagon MD - 11/24 10:17 PM PDT [facility] DEPARTMENT: [facility]- [id number] Place of Service: Date of Service: 12/06/2012 CSN: [id number] Modifiers:GC Resident Involved: yes Suggested CPT: 28522 Critical Care, Initial 30-74 minutes 43 minutes total time spent in Critical care independent of procedures. My impression, recent events and assesment are at the top of this note. Today's data which were reviewed are listed below the A&P I saw and examined JOSEF RAMOS with the [facility] housestaff. I agree with the written [...] bradycardia Intake/Output Summary (Last 24 hours) at 12/06/122216 Last data filed at 12/06/122199 Gross per 24 hour Intake 5900.4 ml Output 7665 ml Net -1764.6 ml Lab Results Lab Test Name Results Date/Time PH 7.45 12/06/12 PH 7.24 12/04/12 PCO2 36 12/06/12 PCO2 39 12/04/12 PO2 82 12/06/12 PO2 210 12/04/12 HCO3 25 12/06/12 HCO3 16.5 12/04/12 FIO2 .45 12/06/12 FIO2 100.0 12/04/12 Chemistries: Last 72 Hours (or 3 results): Recent Labs Basename 12/06/12202612/06/12 1354 12/06/12 0814 12/06/128 12/05/12 0400 12/04/12 190 1 12/04/12 1631 NA [...] 12/01/2012 Final Value: EXAM: AP Chest COMPARISON: 3/07/13. INDICATION: Follow-up cardiac surgery FINDINGS: Cardiac silhouette [...] 8[facility] DAILY PROGRESS NOTE (fellow) Team Pager: [phone] Attendin Author: Veronika Palacios MD Date:12/06/2012 Attending Vendor Analyst: Operating Surgeon: MD Narendra Snyder MD [...] suction Plan to close chest wound on Th if progressing well Fluid accumulation does not [...] different from the or iginal. 8[facility] ATTENDING AIRLINE STATION AGENT DAILY PROGRESS NOTE Team Pager: [phone] Attending Pager: [phone] Author: ELMIRA SALGUERO MD ATTESTATION: I saw and evaluated the patient at the bedside together with Dr. Palacios. Please see their note for a detailed rounding summary. I reviewed the documented findings, relevant data, and recent imaging available. I agree with the assessment and plan as described in [facility] resident's note with the following exceptions/additions as noted below. HPI: 67 yo man with hx of CAD s/p 3V CABG (DE LA ROSA --> LAD, SVG --> OM, PDA) on 11/29/12, development al delay, morbid obesity, VT, LV thrombus, HTN, and CKD (baseline Cr ~1.5) who returned to [facility] [...] who is critically ill. Elmira Salguero MD Spooler Rubber Strandinserting machine operator Pulmonary and Critical Care Medicine [facility] DEPARTMENT: [facility]- [id number] Place of Service: Date of Service: 12/06/2012 CSN: [id number] Modifiers:GC Resident Involved: yes Suggested CPT: 51124 Critical Care, Initial 30-74 minutes Mack Malagon MD - 11/24 8:36 PM PDT [facility] DEPARTMENT: [facility], [facility]- [id number] Place of Service: - Date of Service: 12/05/2012 CSN: [id number] Modifiers:GC Resident Involved: yes Suggested CPT: 11586 Critical Care, Initial 30-74 minutes 32 minutes total time spent in Critical care independent of procedures. My impression, recent events and assesment are at the top of this note. Today's data which were reviewed are listed below the A&P I saw and examined JOSEF RAMOS with the [facility] housestaff. I agree with the written [...] results) Recent Labs Basename 12/05/12 0400 12/04/12 19012/04/12 1631 WBC 14.4* 13.7* 20.8* HB 8.4* [...] Value Range Status 12/05/2012 Final Value: STUDY: AZ CHEST 1 VIEW 12/05/12 07:56:00 INDICATION: Sternotomy [...] 8[facility] DAILY PROGRESS NOTE (fellow) Team Pager: [phone] Attendin Author: Veronika Palacios MD Date:12/05/2012 Attending Vendor Analyst: Operating Surgeon: MD Narendra Snyder MD [...] insulin sliding scale ---- Veronika Palacios MD Elmira Rutherford MD - 12/05/2012 7:44 AM PDTFormatting of this note might be different from the or iginal. 8[facility] ATTENDING AIRLINE STATION AGENT DAILY PROGRESS NOTE Team Pager: [phone] Attending Pager: [phone] Author: ELMIRA SALGUERO MD ATTESTATION: I saw and evaluated the patient at the bedside together with Dr. Conrad. Laine loja see their note for a [...] CKD (baseline Cr ~1.5) who returned [facility] t ICU [facility] the [facility] for shortness of [...] who is critically ill. Elmira Salguero MD Spooler Rubber Strandinserting machine operator Pulmonary and Critical Care Medicine [facility] DEPARTMENT: [facility]- [id number] Place of Service: Date of Service: 12/05/2012 [facility]: [id number] Modifiers:GC Resident Involved: yes Suggested CPT: 50705 Critical Care, Initial 30-74 minutes Mack Malagon MD - 11/24 9:33 PM PDT EPIC DEPARTMENT: [facility]- [id number] Place of Service: - Date of Service: 12/04/2012 CSN: [id number] Modifiers:GC Resident Involved: yes Suggested CPT: 64444 Critical Care, Each additional 30 minutes x 4 93 minutes total time spent in Critical care independent of procedures. My impression, recent events and assesment are at the top of this note. Today's data which were reviewed are listed below the A&P I saw and examined JOSEF RAMOS with the [facility] housestaff. I agree with the written [...] phenylbutyrate Intake/Output Summary (Last 24 hours) at 12/04/122132 Last data filed at 12/04/121999 Gross per [...] (or 3 results) Recent Labs Basename 12/04/12 19012/04/12 1631 12/04/12 1539 WBC 13.7* 20.8* 16.5* [...] Value Range Status 12/04/2012 Final Value: STUDY: AZ CHEST 1 VIEW 12/04/12 15:25:00 INDICATION: Left [...] where appropriate. Final/Electronically signed / TINY GARCIA 12/04/2012 16:37 PM anSpencer - 11/24 5:41 PM PDTTransthoracic echocardiogram completed. [...] his chest open Dispo: Critical Dictation # [id number] HELEN GEE MD Cardiothoracic Surgery Fellow Narendra [...] of time and then re-evaluation Family (Joanne Lastvey) updated. 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 Elmira Salguero MD Spooler Rubber Strandinserting machine operator Pulmonary and Critical Care Medicine [facility] DEPARTMENT: [facility]- [id number] Place of Service: Date of Service: 12/04/2012 CSN: [id number] Modifiers:GC Resident Involved: yes Suggested CPT: 38126 Critical Care, Each additional 30 minutes x 2 and 59902 Critical Care, Initial 30-74 minutes oseph Lewis - 3 10:15 AM PDT Cardiothoracic Surgery [...] CTA bilateral GI Obese, soft non-tender Skin [place]/warm/dry, sternal and leg incisions are c,d,i Chemistries: Last 72 Hours (or 3 results): Recent Labs Basename 12/04/12 0837 12/03/1240012/02/12 025 NA 139 140 139 K 5.1* 4.3 4.2 CL 105 106 103 BICARB 17* 27 26 BUN 45* 31* 29* CR 2.29* 1.90* 2.05* CA 8.5* 7.9* 7.9* MG 2.6* 2.4 2.1 PO4 4.8* 2.9 2.9 CBC with diff last 72 hours (or 3 results) Recent Labs Basename 12/04/12 0837 12/03/1240012/02/12 025 WBC 14.4* 7.6 12.3* HB 9.8* 8.4* [...] to ICU (Electronically Signed) Joseph Lewis PA-C [facility] Cardiac Surgery Gloria Christie MD - 3 3:25 PM PDT Cardiothoracic Surgery Progress Note Procedure: CABG x 3 POD # 3 Past 24 hour Events Transfer to [facility], on heparin gtt for LV thrombus Subjective: [...] 12/03/12 0401 12/02/12 0259 12/01/12 1332 12/01/12 0147 NA 140 139 -- 141 K 4.3 4.2 4.4 -- CL 106 103 -- 107 BICARB 27 26 -- 23 BUN 31* 29* -- 29* CR 1.90* 2.05* -- 1.98* CA 7.9* 7.9* -- 8.0* MG 2.4 2.1 -- 2.3 PO4 2.9 2.9 -- 4.1 CBC with diff last 72 hours (or 3 results) Recent Labs Basename 12/03/12 0401 12/02/12 0259 12/01/12 0147 WBC 7.6 12.3* 17.1* HB 8.4* 8.9* [...] Replace lytes Gentle diuresis continue bumex IV aljit Harrell MD - 12/02/2012 5:40 PM PST 8[facility] ATTENDING AIRLINE STATION AGENT NIGHT NOTE Team Pager: [phone] Attending Pager: [phone] Date:12/02/2012 Author: DALJIT HARRELL MD Attestation: I [...] M.D. Department of Anesthesiology & Ольга-Operative Medicine [address] [facility] [place] [address] [facility] DEPARTMENT: [facility] ICU CARDIAC [[id number]] Place of Service:- Inpatient Date of Service: 12/02/2012 [facility]: [id number] Suggested Modifier: Suggested CPT: TO VOCATIONAL COORDINATOR Data Below Used in this Assessment: Hemodynamics: [...] Basename 12/02/12 0259 12/01/12 0147 11/30/12 1151 11/29/120 11/29/122012 WBC 12.3* 17.1* 21.2* -- -- HB [...] - 12/02/2012 10:07 AM PST 8[facility] ATTENDING AIRLINE STATION AGENT PROGRESS NOTE Team Pager: [phone] Attendin I saw and examined the patient [...] M.A. Department of Anesthesiology and Ольга-Operative Medicine [facility] [address] [facility] DEPARTMENT: [facility] ICU CARDIAC [[id number]] Place of Service:- Inpatient Date of Service: 12/02/2012 CSN: [id number] Suggested Modifier: GC - Resident Involved Suggested CPT: TO VOCATIONAL COORDINATOR 1: 24 PM Veronika Lloyd MD - 12/02/2012 9:18 AM PSTFormatting of this note might be differ ent from the original. 8[facility] DAILY PROGRESS NOTE (Cardiac) Team Pager: [phone] Attendin Author: Veronika Palacios MD Date:12/02/2012 Attending Vendor Analyst: Operating Surgeon: MD Narendra Ellison MD [...] s/p CABG x 3 At risk for SD, CVA, arrythmia, cardiogenic shock LV thrombus Asa, [...] extremeties Sensory: light touch intact Sedation Score: RNO 3: Calm and cooperative Chest: low volume due to effort Incision:clean Cardiac: Rhythm:NSR normal S1 and S2 Abdomen: non-distended and obese, non-tender Extremities: radial=4/4, dorsalis pedis=4/4, bilaterally. mild edema Skin: normal Tubes/Lines (insertion date): Shabnam x1 Feeding: regular Analgesia:oxycodone, tylenol Sedation:none Thromboprophylaxis: Heparin gtt Head of Bed: Head of Bed >30 degrees Ulcer Prophylaxis:Omeprazole Glycemic control: NPH/lispro Veronika Palacios MD chul Daljit hope MD - 12/01/2012 4:09 PM PSTFormatting of this note might be different from [facility] original. 8CSI ATTENDING AIRLINE STATION AGENT NIGHT NOTE Team Pager: [phone] Attending Pager: [phone] Date:12/01/2012 Author: DALJIT HARRELL MD Attestation: I [...] Department of Anesthesiology & Ольга-Operative Medicine [address] [facility] [place] [address] [facility] DEPARTMENT: [facility] ICU CARDIAC [[id number]] Place of Service:- Inpatient Date of Service: 12/01/2012 CSN: [id number] Suggested Modifier: Suggested CPT: TO VOCATIONAL COORDINATOR Data Below Used in this Assessment: Hemodynamics: Hemodynamic Drips: Arterial BP Mean: 59 mmHg (12/01/12 1200) CVP Mean: 11 mmHg (12/01/12 1200) CO (cardiac output): 10.7 (12/01/12 1200) CI (cardiac index): 3.98 (12/01/12 1200) PAP Mean: 21 mmHg (12/01/12 1200) SVR (systemic vascular resistance): 389 (12/01/121199) none Respiratory: Recent Labs Basename 11/30/12 0148 [...] 8[facility] DAILY PROGRESS NOTE (Cardiac) Team Pager: [phone] Attendin Author: Veronika Palacios MD Date:12/01/2012 Attending Vendor Analyst: Operating Surgeon: MD Narendra Ellison MD [...] s/p CABG x 3 At risk for SD, CVA, arrythmia, cardiogenic shock LV thrombus Decrease [...] - 12/01/2012 7:35 AM PST 8[facility] ATTENDING AIRLINE STATION AGENT DAILY PROGRESS NOTE Team Pager: [phone] Attendin Date:12/01/2012 Author: HEIDI NIETO MD Attestation: [...] patient who is currently criti ryan ill. [facility] DEPARTMENT: [facility] ICU CARDIAC [[id number]] Place of Service:38632- Inpatient Date of Service: 12/01/2012 [facility]: [id number] Suggested Modifier: GC - Resident Involved Suggested CPT: TO VOCATIONAL COORDINATOR Hemodynamics: Hemodynamic Drips: Arterial BP Mean: 70 mmHg (12/01/12699) CVP Mean: 7 mmHg (12/01/12699) CO (cardiac output): 9.87 (12/01/12550) CI (cardiac index): 3.67 (12/01/12550) PAP Mean: 15 mmHg (12/01/12699) SVR (systemic vascular resistance): 429 (12/01/12550) epi 0.01 vaso 2 Respiratory: Recent Labs Basename 11/30/12 14711/30/12 0031 FIO2 40% 45% PH 7.31* 7.33* [...] Basename 12/01/12 0654 12/01/12 0541 12/01/12 0336 12/01/1214611/30/12 2251 11/30/12 115 1 11/30/12 0149 11/29/122109 [...] 4.2 2.0* -- Recent Labs Basename 12/01/12 01411/30/12 1151 11/30/12 0838 11/29/12210911/29/122012 WBC 17.1* 21.2* [...] - 11/30/2012 7:21 PM PST 8[facility] ATTENDING AIRLINE STATION AGENT NIGHT NOTE Team Pager: [phone] Attending Pager: [phone] Date:11/30/2012 Author: DALJIT HARRELL MD Attestation: I [...] 500, Insulin 7, Milrinone 0.125, NE 0.03, FLAT BED OPERATOR 2 Vent: 3L NC CI 3.1 SVO2 [...] M.D. Department of Anesthesiology & Ольга-Operative Medicine [address] [place] [address] Rd. [facility] [place] [address] [facility] DEPARTMENT: [facility] ICU CARDIAC [[id number]] Place of Service:- Inpatient Date of Service: 11/30/2012 CSN: [id number] Suggested Modifier: GC - Resident Involved Suggested CPT: TO VOCATIONAL COORDINATOR Data Below Used in this Assessment: Hemodynamics: Hemodynamic Drips: Arterial BP Mean: 67 mmHg (11/30/121899) CVP Mean: 9 mmHg (11/30/12 190) CO (cardiac output): 9 (11/30/12 1600) CI (cardiac index): 3.35 (11/30/12 1600) PAP Mean: 18 mmHg (11/30/12 190) SVR (systemic vascular resistance): 533 (11/30/12 1600) [...] hours) at 11/30/121920 Last data filed at 03/07/13 1900 Gross per 24 hour Intake 71324.26 ml Output 4055 ml Net 7505.26 ml [...] Basename 11/30/12 1151 11/30/12 0838 11/30/12 0149 11/29/12 2110 11/29/122012 WBC 21.2* 19.2* 27.1* -- -- HB [...] - 11/30/2012 12:37 PM PST 8[facility] ATTENDING AIRLINE STATION AGENT PROGRESS NOTE Team Pager: [phone] Attendin Urine has large leukocyte esterase, bacteria, and 103 WBC. Presumptive urosepsis Continue abx and volume resuscitation Milrinone to support LV in setting of resuscitation 14 additional minutes spent in the care and management of this patient who is critically i ll Heidi Nieto M.D., M.A. Department of Anesthesiology and Ольга-Operative Medicine [address] [place] [id number] [place] [address] DEPARTMENT: [facility] ICU CARDIAC [[id number]] Place of Service:41468- Inpatient Date of Service: 11/30/2012 CSN: [id number] Suggested Modifier: None Suggested CPT: TO VOCATIONAL COORDINATOR 1: 59 PM Elba Grady - 11/30/2012 11:05 AM PSTTransthoracic echocardiogram completed. Final report to follow. Heidi Munoz MD - 03/2013 7:54 AM PST 8[facility] ATTENDING AIRLINE STATION AGENT DAILY PROGRESS NOTE Team Pager: [phone] Attendin Date:11/30/2012 Author: HEIDI NIETO MD Attestation: [...] patient who is currently criti ryan ill. [facility] DEPARTMENT: [facility] ICU CARDIAC [[id number]] Place of Service:- Inpatient Date of Service: 11/30/2012 CSN: [id number] Suggested Modifier: GC - Resident Involved Suggested CPT: TO VOCATIONAL COORDINATOR Hemodynamics: Hemodynamic Drips: Arterial BP Mean: 66 mmHg (11/30/12699) CVP Mean: 13 mmHg (11/30/12699) CO (cardiac output): 7.23 (11/30/1236) CI (cardiac index): 2.69 (11/30/12635) PAP Mean: 20 mmHg (11/30/12699) SVR (systemic vascular resistance): 675 (11/30/12635) epi 0.02 norepi 0.02 Respiratory: Recent Labs [...] 11/30/12 0503 11/30/12 0501 11/30/12 0400 11/30/12 0149 11/29/12 234 1 11/29/12210911/28/12614 NA -- -- -- -- 142 -- [...] -- 3.2 3.5 Recent Labs Basename 11/30/12 01411/29/12210911/29/12201211/28/1261411/27/12 1124 WBC 27.1* 21.2* 18.1* -- -- [...] tablet 20 mg 20 mg Oral QPM ldrichMichael MD - 11/30/2012 6:43 AM PSTFormatting of this note might be different from the orig inal. 8[facility] DAILY PROGRESS NOTE (Cardiac) Team Pager: [phone] Attendin Author: MIHIR MCGRATH MD Date:11/30/2012 Attending Vendor Analyst: Operating Surgeon: MD Narendra Ellison MD [...] s/p CABG x 3 At risk for SD, CVA, arrythmia, cardiogenic shock Will add milrinone [...] Glycemic control: insulin infusion MIHIR MCGRATH MD laTono bob MD - 11/29/2012 8:47 PM PSTInpatient Operative Note Patient Name: Josef Ramos Date of : 1945 [facility] Medical Record Number: [id number] Date: 11/29/2012 Attending Surgeon: NARENDRA LUNSFORD MD Lime Burner(s): Kathy Castro PA-C No residents of the [...] The patient was positioned appropriately. The following crew team member s were present during the team pause: Surgeon, assistant teaching professor, nursing, anesthesia, perfusion. Findings at Surgery: The [...] Electronically signed Narendra Lunsford MD, FACS, FACC Wellfield Technician, Department of Surgery Head, Adult Cardiac Surgery Co-Director, Multidisciplinary Heart Valve Clinic [facility] | [email or web address] Joseph Duvall - 013 12:50 PM PST Cardiothoracic Surgery [...] CABG tomorrow (Electronically Signed) Joseph Lewis PA-C [facility] Cardiac Surgery oseph Hanks - 11/27/2012 11 :25 AM PSTTransthoracic echocardiogram [...] mg daily (Electronically Signed) Joseph Lewis PA-C [facility] Cardiac Surgery documented in this encounter Plan [...] + + + | IP CONSULT TO PIC | Routin | 12/10/2012 | | Results [...] + +--------+ + + + | LACTATE POC | Routin | 12/04/2012 | Coronary [...] + +--------+ + + + | IONIZD GEORGE WB, POC | Routin | 12/04/2012 | [...] + +--------+ + + + | LACTATE POC | Routin | 12/04/2012 | Coronary artery | Results for this | | | e | 2:46 PM | disease | procedure are in the | | | | PDT | | results section. | + +--------+ + + + | HEMOGLOBIN POC RESP | Routin | 12/04/2012 | Coronary artery | Results for this | | | e | 2:46 PM | disease | procedure are in the | | | | PDT | | results section. | + +--------+ + + + | IONIZD GEORGE WB, POC | Routin | 12/04/2012 | [...] | | | al | | vessel, [place] or | | | | | [...] did goahead and | | placed a [place] per Dr. Zambrano from anesthesiology in the [...] then made note of his hemodynamics andthe [place] parameters. The sternum | | was closed [...] in critical butstable condition.Helen Gee, MDCJW / [id number] / [id number] / | | [id number] / T: 12/08/2012 Electronically signedNarendra Lunsford MD, FACS, | | FACCAssociate Professor, Department of SurgeryThe [facility], Adult Cardiac SurgeryCo-Director, | | Multidisciplinary Heart Valve ClinicFormerly [facility] HospitalPhone: [phone] | | [phone] | [email or web address] | |fluid and some clot. Although, this [...] note of his hemodynamics and | |the [place] parameters. The sternum was closed with three [...] Gee MD | |CJW / HS | |[id number] / [id number] / [id number] / | | | | | | | |Electronically signed | |Narendra Lunsford MD, FACS, FACC | |Wellfield Technician, Department of Surgery | |Head, Adult Cardiac Surgery | |Co-Director, Multidisciplinary Heart Valve Clinic | |[facility] | | | | | | |[email or web address] | + + CAPILLARY BLOOD GLUCOSE (NO [...] MARQUAM | [address] | [place], [place] | | | [facility] CARE | [address] | [address] | | | TESTS | | | [...] LUPEAM | [address] | [place], [place] | | | KAILYN MAZA OF [facility] | [address] | [address] | | | TESTS | | | [...] + + | [facility] | [address] | [place] [address] | | | SERVICES, CORE | PARK [...] | | | LABORATORY | | | LITHUANIAN | | | SERVICES, | | | [...] [facility] | [address] | [place] [address] | | | SERVICES, CORE | PARK [...] [facility] | [address] | [place] [address] | | | SERVICESTOI | [address] | | | + [...] | + + + + + | [facility] | [address] | [place] [address] | | | TOI MARIN | [address] [...] (H) | 60 - 99 mg/dL | [facility] - | | | GLUCOSE, | [...] LUPEAM | [address] | [place], [place] | | | KAILYN MAZA OF JOHN | [address] | [address] | | | TESTS | | | [...] GONZALEZ | [address] | [place], [place] | | | [facility] CARE | [facility] | [address] | | | TESTS | | | | + + + + + CAPILLARY BLOOD GLUCOSE (NO CHG) POC (12/21/2012 1:55 PM PDT) + +---------+ [...] [facility] | [address] | [place], [place] | | | [facility] CARE | [facility] | [address] | | | TESTS | | | [...] (H) | 60 - 99 mg/dL | [facility] - | | | GLUCOSE, | [...] GONZALEZ | [address] | [place], [place] | | | KAILYN MAZA OF [facility] | [address] | [address] | | | TESTS | | | [...] | | | LABORATORY | | | LITHUANIAN | | | SERVICES, | | | [...] [facility] | [address] | [place] [address] | | | SERVICES, CORE | PARK [...] | + + + + + | [facility] | [address] | [place] [address] | | | SERVICES, TOI | CRYSTAL [...] | + + + + + | [facility] | [address] | [place] [address] | | | SERVICES, TOI | CRYSTAL [...] (H) | 60 - 99 mg/dL | [facility] - | | | GLUCOSE, | [...] GONZALEZ | [address] | [place], [place] | | | [facility] | [address] | [address] | | | TESTS | | | [...] CARLOS | [address] | [place], [place] | | | [facility] CARE | [address] | [address] | | | TESTS | | | [...] - CARLOS | [address] | [place], [place] | | | [place] [facility] | [facility] | [address] | | | TESTS | | | [...] | + + + + + | [facility] | [address] | [place] [address] | | | TOI MARIN | [address] [...] (H) | 60 - 99 mg/dL | [facility] - | | | GLUCOSE, | [...] CARLOS | [address] | [place], [place] | | | [facility] | [address] | [address] | | | TESTS | | | [...] GONZALEZ | [address] | [place], [place] | | | KAILYN MAZA OF JOHN | [facility] | [address] | | | TESTS | | | [...] + + | Performing | Address | City/State/[facility] | Phone Number | | Organization | | | | + + + + + | [facility] | [address] | [place] [address] | | | [place]IA, [facility] | [address] | | | + [...] [facility] | [address] | [place] [address] | | | TOI MARIN | [address] [...] | | | LABORATORY | | | LITHUANIAN | | | SERVICES, | | | [...] | + + + + + | [facility] | [address] | [place] [address] | | | SERVICES, CORE | CRYSTAL [...] MARQUAM | [address] | [place], [place] | | | [facility]YN MAZA [facility] CARE | [address] | [address] | | | TESTS | | | [...] GONZALEZ | [address] | [place], [place] | | | [place] [facility] | [address] | [address] | | | TESTS | | | [...] | + + + + + | [facility] | [address] | [place] [address] | | | SERVICES, CORE | CRYSTAL [...] (H) | 60 - 99 mg/dL | [facility] - | | | GLUCOSE, | [...] GONZALEZ | [address] | [place], [place] | | | KAILYN MAZA OF JOHN | [address] | [address] | | | TESTS | | | [...] MARQUAM | [address] | [place], [place] | | | [facility] | [address] | [address] | | | TESTS | | | | + + + + + X-RAY PORTABLE CHEST 1 VIEW (12/19/2012 6:46 AM PDT) + + + + + + | Component | Value | Ref Range | Performed | Pathologist | | | | | At | Signature | + + + + + + | X-RAY | STUDY: AZ CHEST 1 VIEW | | | | [...] SHAY | | | | | | LISAS 12/19/2012 10:27 AM | | | | | | | | | | + + + + + + + + | Specimen | + + | | + + + +---------+ + + | Performing | Address | City/State/Zipcode | Phone Number | | Organization | | | | + +---------+ + + | [facility] DEPARTMENT OF | | | | | [...] [facility] | [address] | [place] [address] | | | SERVICES, CORE | PARK [...] - CARLOS | [address] | [place], [place] | | | KAILYN MAZA OF [facility] | [address] | [address] | | | TESTS | | | [...] | + + + + + | [facility] | [address] | [place] [address] | | | SERVICES, CORE | PARK [...] | + + + + + | [facility] | [address] | [place] [address] | | | SERVICES, CORE | PARK [...] | + + + + + | [facility] | [address] | [place] [address] | | | SERVICES, CORE | CRYSTAL [...] | | | LABORATORY | | | LITHUANIAN | | | SERVICES, | | | [...] | + + + + + | [facility] | [address] | [place] [address] | | | SERVICES, CORE | PARK [...] + | [facility] | [address] | [place] [address] | | | [place] | | | | + + + + + HEPATITIS C QUANTITATIVE, PLASMA (12/19/2012 5:03 AM PDT) + + + + + + | Component | Value | Ref Range | Performed | Pathologist | | | | | At | Signature | + + + + + + | HEP C PCR, | Undetected | (none) IU/mL | [facility] | | | QUANT | | | [...] | + + + + + | [facility] | [address] | [place] [address] | | | DIAGNOSTIC | [address] [...] MARKATHERINEAM | [address] | [place], [place] | | | [facility] CARE | [address] | [address] | | | TESTS | | | [...] - MARQU[facility] | [address] | [place], [place] | | | [facility]ZA [facility] CARE | [address] | [address] | | | TESTS | | | [...] GONZALEZ | [address] | [place], [place] | | | [facility] CARE | [address] | [address] | | | TESTS | | | [...] MARKATHERINEAM | [address] | [place], [place] | | | KAILYN MAZA OF JOHN | [address] | [address] | | | TESTS | | | | + + + + + X-RAY PORTABLE CHEST 1 VIEW (12/18/2012 6:39 AM PDT) + + + + + + | Component | Value | Ref Range | Performed | Pathologist | | | | | At | Signature | + + + + + + | X-RAY | STUDY: AZ CHEST 1 VIEW | | | | [...] | | | | | | FUSS 12/18/2012 8:44 AM | | | | [...] | + + + + + | [facility] | [address] | [place] [address] | | | SERVICES, CORE | PARK [...] | + + + + + | [facility] | [address] | [place] [address] | | | TANIA, TOI | [address] [...] | + + + + + | [facility] | [address] | [place] [address] | | | SERVICES, TOI | CRYSTAL [...] [facility] | [address] | [place] [address] | | | SERVICES, CORE | PARK [...] | | | LABORATORY | | | LITHUANIAN | | | SERVICES, | | | [...] (H) | 4 - 11 mmol/L | [facility] | | | GAP(ALB | | | [...] | + + + + + | [facility] | [address] | [place] [address] | | | SERVICES, CORE | PARK [...] LUPEAM | [address] | [place], [place] | | | KAILYN MAZA OF CARE | [facility] | [address] | | | TESTS | | | [...] (H) | 60 - 99 mg/dL | [facility] - | | | GLUCOSE, | [...] CARLOS | [address] | [place], [place] | | | [facility] | [address] | [address] | | | TESTS | | | [...] CARLOS | [address] | [place], [place] | | | KAILYN MAZA OF JOHN | [facility] | [address] | | | TESTS | | | [...] + | [facility] | [address] | [place], [place] | | | [facility] | [address] | [address] | | | TESTS | | | | + + + + + X-RAY PORTABLE CHEST 1 VIEW (12/17/2012 7:17 AM PDT) + + + + + + | Component | Value | Ref Range | Performed | Pathologist | | | | | At | Signature | + + + + + + | X-RAY | STUDY: AZ CHEST 1 VIEW | | | | [...] | | | | | Preliminary / SHIErick | | | | | | GERMÁN [...] 199 | 150 - 400 K/cu | [facility] [...] | + + + + + | [facility] | [address] | [place] [address] | | | SERVICES, CORE | PARK [...] | + + + + + | [facility] | [address] | [place] [address] | | | SERVICES, CORE | [address] | | | + + + + + MAGNESIUM, PLASMA (12/17/2012 5:29 AM PDT) + +-------+ + + + | Component | Value | Ref Range | Performed | Pathologist | | | | | At | Signature | + +-------+ + + + | MAGNESIUM,P | 2.1 | 1.8 - 2.5 mg/dL | [facility] | | | LASMA | | | [...] | + + + + + | [facility] | [address] | [place] [address] | | | SERVICES, CORE | CRYST[address] [...] | | | LABORATORY | | | LITHUANIAN | | | SERVICES, | | | [...] | + + + + + | [facility] | [address] | [place] [address] | | | SERVICES, CORE | [address] | | | + + + + + CAPILLARY BLOOD GLUCOSE (NO CHG), POC (12/16/2012 9:34 PM PDT) + +---------+ + + + | Component | Value | Ref Range | Performed | Pathologist | | | | | At | Signature | + +---------+ + + + | BLOOD | 142 (H) | 60 - 99 mg/dL | [facility] - | | | GLUCOSE, | [...] GONZALEZ | [address] | [place], [place] | | | KAILYN MAZA OF JOHN | [facility] | [address] | | | TESTS | | | [...] GONZALEZ | [address] | [place], [place] | | | [facility] CARE | [address] | [address] | | | TESTS | | | [...] CARLOS | [address] | [place], [place] | | | KAILYN MAZA OF JOHN | [facility] | [address] | | | TESTS | | | [...] (H) | 60 - 99 mg/dL | [facility] - | | | GLUCOSE, | [...] GONZALEZ | [address] | [place], [place] | | | [facility] | [address] | [address] | | | TESTS | | | | + + + + + X-RAY PORTABLE CHEST 1 VIEW (12/16/2012 7:07 AM PDT) + + + + + + | Component | Value | Ref Range | Performed | Pathologist | | | | | At | Signature | + + + + + + | X-RAY | STUDY: AZ CHEST 1 VIEW | | | | [...] [facility] | [address] | [place] [address] | | | SERVICES, CORE | CRYSTAL [...] | + + + + + | [facility] | [address] | [place] [address] | | | SERVICES, CORE | PARK [...] | + + + + + | [facility] | [address] | [place] [address] | | | SERVICES, CORE | PARK [...] 2.5 mg/dL | [facility] | | | PITA | | | [...] [facility] | [address] | [place] [address] | | | TOI MARIN | [address] [...] | | | LABORATORY | | | LITHUANIAN | | | SERVICES, | | | [...] | + + + + + | [facility] | [address] | [place] [address] | | | SERVICES, CORE | CRYSTAL [...] MARQUAM | [address] | [place], [place] | | | KAILYN MAZA OF JOHN | [address] | [address] | | | TESTS | | | [...] CARLOS | [address] | [place], [place] | | | [facility] [facility] | [facility] | [address] | | | TESTS | | | [...] for children less than 6 months | [facility] | | can be found in the Hemostasis Section general instructions of the | LABORATORY | | [facility] Lab Manual: | SERVICES, CORE | | [email or web address] | | + + + + + + + + | Performing | Address | City/State/Zipcode | Phone Number | | Organization | | | | + + + + + | [facility] | [address] | [place] [address] | | | SERVICES, CORE | CRYSTAL [...] (H) | 60 - 99 mg/dL | [facility] - | | | GLUCOSE, | [...] GONZALEZ | [address] | [place], [place] | | | [facility] | [address] | [address] | | | TESTS | | | [...] | + + + + + | [facility] | [address] | [place] [address] | | | SERVICES, CORE | CRYSTAL [...] MARQUAM | [address] | [place], [place] | | | [facility] | [address] | [address] | | | TESTS | | | [...] | + + + + + | [facility] | [address] | [place] [address] | | | TOI MARIN | [address]YST[address] [...] (H) | 60 - 99 mg/dL | [facility] - | | | GLUCOSE, | [...] GONZALEZ | [address] | [place], [place] | | | [facility]ARE | [address] | [address] | | | TESTS | | | | + + + + + X-RAY PORTABLE CHEST 1 VIEW (12/15/2012 5:51 AM PDT) + + + + + + | Component | Value | Ref Range | Performed | Pathologist | | | | | At | Signature | + + + + + + | X-RAY | STUDY: AZ CHEST 1 VIEW | | | | [...] [facility] | [address] | [place] [address] | | | SERVICES, CORE | PARK [...] | + + + + + | [facility] | [address] | [place] [address] | | | SERVICES, CORE | PARK [...] | + + + + + | [facility] | [address] | [place] [address] | | | SERVICES, CORE | [address] [...] | | | LABORATORY | | | LITHUANIAN | | | SERVICES, | | | [...] | + + + + + | [facility] | [address] | [place] [address] | | | SERVICES, CORE | [address] | | | + + + + + MAGNESIUM, PLASMA (12/15/2012 5:25 AM PDT) + +-------+ + + + | Component | Value | Ref Range | Performed | Pathologist | | | | | At | Signature | + +-------+ + + + | MAGNESIUM,P | 2.1 | 1.8 - 2.5 mg/dL | [facility] | | | ELINAMA | | | [...] | + + + + + | [facility] | [address] | [place] [address] | | | SERVICES, CORE | PARK [...] (H) | 60 - 99 mg/dL | [facility] - | | | GLUCOSE, | [...] GONZALEZ | [address] | [place], [place] | | | KAILYN MAZA OF JOHN | [facility] | [address] | | | TESTS | | | | + + + + + CAPILLARY BLOOD GLUCOSE (NO CHG) POC (12/14/2012 10:34 PM PDT) + +---------+ [...] [facility] | [address] | [place], [place] | | | [facility] | [address] | [address] | | | TESTS | | | [...] | + + + + + | [facility] | [address] | [place] [address] | | | SERVICES, CORE | CRYSTAL [...] (H) | 60 - 99 mg/dL | [facility] - | | | GLUCOSE, | [...] + + + | [facility] | [address] | [place], [place] | | | [facility] [facility] | [address] | [address] | | | TESTS | | | [...] | | AG, SERUM | | | [place] | | + + + + + + + + | Specimen | + + | Blood - Blood | + + + + + + + | Performing | Address | City/State/Zipcode | Phone Number | | Organization | | | | + + + + + | [facility] | [address] | [place] [address] | | | [place] | | | [...] - CARLOS | [address] | [place], [place] | | | [facility] [place] [facility] | [facility] | [address] | | | TESTS | | | [...] | + + + + + | [facility] | [address] | [place] [address] | | | SERVICES, CORE | CRYSTAL [...] GONZALEZ | [address] | [place], [place] | | | [facility] | [address] | [address] | | | TESTS | | | [...] MARQUAM | [address] | [place], [place] | | | [facility] | [address] | [address] | | | TESTS | | | [...] [facility] | [address] | [place], [place] | | | [facility] | [facility] | [address] | | | TESTS | | | [...] GONZALEZ | [address] | [place], [place] | | | [facility] | [address] | [address] | | | TESTS | | | | + + + + + X-RAY PORTABLE CHEST 1 VIEW (12/14/2012 5:32 AM PDT) + + + + + + | Component | Value | Ref Range | Performed | Pathologist | | | | | At | Signature | + + + + + + | X-RAY | STUDY: AZ CHEST 1 VIEW | | | | [...] | | | | | | FUSS 12/14/2012 9:22 AM | | | | | | | | | | + + + + + + + + | Specimen | + + | | + + + +---------+ + + | Performing | Address | City/State/Zipcode | Phone Number | | Organization | | | | + +---------+ + + | [facility] DEPARTMENT OF | | | | | [...] MARQU[facility] | [address] | [place], [place] | | | [facility] | [facility] | [address] | | | TESTS | | | [...] LUPEAM | [address] | [place], [place] | | | [facility] | [address] | [address] | | | TESTS | | | [...] | + + + + + | [facility] | [address] | [place] [address] | | | SERVICES, CORE | PARK [...] [facility] | [address] | [place] [address] | | | SERVICES, CORE | PARK [...] | + + + + + | [facility] | [address] | [place] [address] | | | SERVICES, CORE | CRYSTAL [...] | + + + + + | [facility] | [address] | [place] [address] | | | SERVICES, CORE | PARK [...] MARKATHERINEAM | [address] | [place], [place] | | | [facility]YN [facility] CARE | [facility] | [address] | | | TESTS | | | [...] (H) | 60 - 99 mg/dL | [facility] - | | | GLUCOSE, | [...] MARQU[facility] | [address] | [place], [place] | | | [facility] | [address] | [address] | | | TESTS | | | [...] GONZALEZ | [address] | [place], [place] | | | KAILYN MAZA OF JOHN | [facility] | [address] | | | TESTS | | | | + + + + + CAPILLARY BLOOD GLUCOSE (NO CHG) POC (12/13/2012 6:32 PM PDT) + +---------+ [...] + | [facility] | [address] | [place], [place] | | | [facility]YN [facility] CARE | [facility] | [address] | | | TESTS | | | [...] (H) | 60 - 99 mg/dL | [facility] - | | | GLUCOSE, | [...] DUNGQUAM | [address] | [place], [place] | | | [facility] | [address] | [address] | | | TESTS | | | [...] GONZALEZ | [address] | [place], [place] | | | KAILYN MAZA OF JOHN | [facility] | [address] | | | TESTS | | | [...] | + + + + + | [facility] | [address] | [place] [address] | | | SERVICES, CORE | PARK [...] [facility] | [address] | [place] [address] | | | SERVICES, CORE | PARK [...] CARLOS | [address] | [place], [place] | | | [facility] [place] [facility] | [address] | [address] | | | TESTS | | | [...] [facility] | [address] | [place] [address] | | | SERVICES, CORE | PARK [...] | + + + + + | [facility] | [address] | [place] [address] | | | SERVICES, CORE | CRYSTAL [...] (H) | 60 - 99 mg/dL | [facility] - | | | GLUCOSE, | [...] + + + | [facility] GON[facility] | [address] | [place], [place] | | | [facility] | [address] | [address] | | | TESTS | | | [...] MARQUAM | [address] | [place], [place] | | | [facility] | [address] | [address] | | | TESTS | | | [...] [facility] | [address] | [place] [address] | | | SERVICES, CORE | PARK [...] | + + + + + | [facility] | [address] | [place] [address] | | | SERVICES, CORE | PARK [...] [facility] | [address] | [place] [address] | | | TOI MARIN | CRYSTAL [...] | + + + + + | [facility] | [address] | [place] [address] | | | SERVICES, CORE | [address] | | | + + + + + MAGNESIUM, PLASMA (12/13/2012 3:30 AM PDT) + +-------+ + + + | Component | Value | Ref Range | Performed | Pathologist | | | | | At | Signature | + +-------+ + + + | MAGNESIUM,P | 2.1 | 1.8 - 2.5 mg/dL | [facility] [...] | + + + + + | [facility] | [address] | [place] [address] | | | SERVICES, CORE | PARK [...] CARLOS | [address] | [place], [place] | | | KAILYN MAZA [facility] | [address] | [address] | | | TESTS | | | [...] GONZALEZ | [address] | [place], [place] | | | [facility] | [address] | [address] | | | TESTS | | | | + + + + + TRANSTHORACIC ECHOCARDIOGRAM, ADULT (12/13/2012 12:00 AM PDT) + + + | Narrative | Performed At | + + + | | | | | | + + + + + | Procedure Note | + + | Other, Faculty - 12/13/2012 10:37 AM PDT | + [...] [facility] | [address] | [place], [place] | | | [facility] | [address] | [address] | | | TESTS | | | [...] GONZALEZ | [address] | [place], [place] | | | [facility] | [address] | [address] | | | TESTS | | | [...] [facility] | [address] | [place], [place] | | | [facility]YN [facility]ARE | [address] | [address] | | | TESTS | | | [...] | + + + + + | [facility] | [address] | [place] [address] | | | TANIA, TOI | CRYSTAL [...] (H) | 60 - 99 mg/dL | [facility] - | | | GLUCOSE, | [...] GONZALEZ | [address] | [place], [place] | | | [facility] | [address] | [address] | | | TESTS | | | [...] | | signed / ULISES GRULLON | | | | | | 12/13/2012 9:45 AM [...] | + + + + + | [facility] | [address] | [place] [address] | | | SERVICES, CORE | PARK [...] | + + + + + | [facility] | [address] | [place] [address] | | | SERVICES, CORE | CRYSTAL [...] (H) | 60 - 99 mg/dL | [facility] - | | | GLUCOSE, | [...] + + + | [facility] | [address] | [place], [place] | | | KAILYN MAZA OF [facility] | [address] | [address] | | | TESTS | | | [...] [facility] | [address] | [place], [place] | | | [facility] | [address] | [address] | | | TESTS | | | [...] | + + + + + | [facility] | [address] [facility] [address] [address] | [place] [address] | | | TANIA, CORE | PARK [...] - [facility] | [address] | [place], [place] | | | [facility] | [address] | [address] | | | TESTS | | | [...] + + + | [facility]ON[facility] | [address] | [place], [place] | | | KAILYN MAZA [facility] | [address] | [address] | | | TESTS | | | [...] [facility] | [address] | [place], [place] | | | [facility] | [address] | [address] | | | TESTS | | | | + + + + + MAGNESIUM, PLASMA (12/12/2012 8:19 AM PDT) + +-------+ + + + | Component | Value | Ref Range | Performed | Pathologist | | | | | At | Signature | + +-------+ + + + | MAGNESIUM,P | 1.9 | 1.8 - 2.5 mg/dL | [facility] [...] | + + + + + | [facility] | [address] | [place] [address] | | | SERVICES, CORE | PARK [...] (H) | 60 - 99 mg/dL | [place] | | | PLASMA | | | [...] | + + + + + | [facility] | [address] | [place] [address] | | | SERVICES, CORE | PARK [...] | + + + + + | [facility] | [address] | [place] [address] | | | SERVICES, CORE | CRYSTAL [...] [facility] | [address] | [place] | | | [facility] | [address] | [address] | | | TESTS | | | [...] GONZALEZ | [address] | [place], [place] | | | KAILYN MAZA OF [facility] | [facility] | [address] | | | TESTS | | | | + + + + + X-RAY PORTABLE CHEST 1 VIEW (12/12/2012 5:53 AM PDT) + + + + + + | Component | Value | Ref Range | Performed | Pathologist | | | | | At | Signature | + + + + + + | X-RAY | EXAM: [place] CHEST 1 VIEW | | | | [...] | | | | | | JARVIS MDAuthor: Vinnie | | | | | [...] | | | | | | JARVIS 12/12/2012 9:44 | | | | | [...] + + + | [facility] | 1+ (-25cells/HPF) | (none) | [facility] | | | [...] [facility] | [address] | [place] [address] | | | SERVICES, CORE | [address] | | | + + + + + HEPARIN, EITHER STANDARD / LMW, BLOOD (12/12/2012 4:00 AM PDT) + +-------+ + + + | Component | Value | Ref Range | Performed | Pathologist | | | | | At | Signature | + +-------+ + + + | HEPARIN, | 0.33 | U/mL | [facility] | | | STD LMW | | [...] + | [facility] | [address] | [place] [address] | | | SERVICES, CORE | PARK [...] [facility] | [address] | [place] [address] | | | TOI MARIN | CRYSTAL [...] | SERVICES, | | | | on 12/12/2012 0437. | | CORE | | + [...] + + | [facility] | [address] | [place] [address] | | | TOI MARIN | CRYSTAL [...] [facility] | [address] | [place] [address] | | | SERVICES, CORE | PARK [...] + +---------+ + + + | BILI D CMNT [...] [facility] | [address] | [place] [address] | | | SERVICES, CORE | PARK [...] | + + + + + | [facility] | [address] | [place] [address] | | | SERVICES, CORE | CRYSTAL [...] [facility] | [address] | [place] [address] | | | TOI MARIN | PARK [...] CARLOS | [address] | [place], [place] | | | KAILYN MAZA OF CARE | [address] | [address] | | | TESTS | | | [...] GONZALEZ | [address] | [place], [place] | | | KAILYN MAZA OF CARE | [address] | [address] | | | TESTS | | | [...] [facility]QU[facility] | [address] | [place], [place] | | | KAILYN MAZA OF JOHN | [address] | [address] | | | TESTS | | | [...] [facility]PE[facility] | [address] | [place], [place] | | | KAILYN MAZA OF CARE | [facility] | [address] | | | TESTS | | | [...] GONZALEZ | [address] | [place], [place] | | | [facility]ARE | [address] | [address] | | | TESTS | | | [...] | + + + + + | [facility] | [address] | [place] [address] | | | SERVICES, CORE | [address] | | | + + + + + MAGNESIUM, PLASMA (12/11/2012 11:59 PM PDT) + +-------+ + + + | Component | Value | Ref Range | Performed | Pathologist | | | | | At | Signature | + +-------+ + + + | MAGNESIUM,P | 2.0 | 1.8 - 2.5 mg/dL | [facility] [...] [facility] | [address] | [place] [address] | | | SERVICES, CORE | PARK [...] result. | LABORATORY | | | SERVICES, TOI | + + + + + + + + | Performing | Address | City/State/Zipcode | Phone Number | | Organization | | | | + + + + + | [facility] | [address] | [place] [address] | | | SERVICES, TOI | PARK [...] [facility] | [address] | [place], [place] | | | KAILYN MAZA OF CARE | [facility] | [address] | | | TESTS | | | [...] | + + + + + | [facility] | [address] | [place] [address] | | | SERVICES, TOI | CRYSTAL [...] (H) | 60 - 99 mg/dL | [facility] - | | | GLUCOSE, | | | [facility] | | | POC | | | KAILNY MAZA | | | | | | [...] GONZALEZ | [address] | [place], [place] | | | [facility] CARE | [address] | [address] | | | TESTS | | | [...] MARQUAM | [address] | [place], [place] | | | KAILYN MAZA OF CARE | [address] | [address] | | | TESTS | | | [...] CARLOS | [address] | [place], [place] | | | [facility]ARE | [address] | [address] | | | TESTS | | | [...] | + + + + + | [facility] | [address] | [place] [address] | | | SERVICES, CORE | CRYSTAL [...] | + + + + + | [facility] | [address] | [place] [address] | | | SERVICES, CORE | CRYSTAL [...] | + + + + + | [facility] | [address] | [place] [address] | | | SERVICES, CORE | PARK [...] CARLOS | [address] | [place], [place] | | | KAILYN MAZA OF JOHN | [address] | [address] | | | TESTS | | | [...] - CARLOS | [address] | [place], [place] | | | KAILYN MAZA OF CARE | [facility] | [address] | | | TESTS | | | [...] (H) | 60 - 99 mg/dL | [facility] - | | | GLUCOSE, | [...] GONZALEZ | [address] | [place], [place] | | | [facility]ARE | [address] | [address] | | | TESTS | | | [...] | + + + + + | [facility] | [address] | [place] [address] | | | SERVICES, CORE | CRYSTAL [...] [facility] | [address] | [place] [address] | | | SERVICES, CORE | PARK [...] | + + + + + | [facility] | [address] | [place] [address] | | | TANIA, TOI | PARK [...] + + + | [facility] | [address] | [place] [address] | | | TOI MARIN | CRYSTAL [...] MAR[facility] | [address] | [place], [place] | | | KAILYN MAZA OF CARE | [address] | [address] | | | TESTS | | | [...] (H) | 60 - 99 mg/dL | [facility] - | | | GLUCOSE, | [...] GONZALEZ | [address] | [place], [place] | | | KAILYN MAZA OF CARE | [address] | [address] | | | TESTS | | | [...] MARQUAM | [address] | [place], [place] | | | KAILYN MAZA OF CARE | [address] | [address] | | | TESTS | | | [...] | + + + + + | [facility] | [address] | [place] [address] | | | SERVICES, CORE | CRYSTAL [...] [facility] | [address] | [place] [address] | | | SERVICES, CORE | PARK [...] [facility] | [address] | [place] [address] | | | SERVICES, CORE | CRYSTAL [...] | + + + + + | [facility] | [address] | [place] [address] | | | SERVICES, CORE | CRYSTAL [...] (H) | 60 - 99 mg/dL | [facility] - | | | GLUCOSE, | [...] GONZALEZ | [address] | [place], [place] | | | [facility]ARE | [address] | [address] | | | TESTS | | | [...] | + + + + + | [facility] | [address] | [place] [address] | | | SERVICES, CORE | CRYSTAL [...] MARQUAM | [address] | [place], [place] | | | KAILYN MAZA OF CARE | [facility] | [address] | | | TESTS | | | [...] + | [facility] | [address] | [place], [place] | | | [facility]INT [facility] CARE | [address] | [address] | | | TESTS | | | [...] for children less than 6 months | [facility] | | can be found in the Hemostasis Section general instructions of the | LABORATORY | | [facility] Lab Manual: | SERVICES, CORE | | [email or web address] | | + + + + + + + + | Performing | Address | City/State/Zipcode | Phone Number | | Organization | | | | + + + + + | [facility] | [address] | [place] [address] | | | SERVICES, CORE | PARK [...] - 1.20 U/mL Dalteparin, LMWH: 0.70 | [facility], CORE | | - 1.20 U/mL Tinzaparin, [...] | + + + + + | [facility] | [address] | [place] [address] | | | SERVICES, CORE | PARK [...] | + + + + + | [facility] | [address] | [place] [address] | | | SERVICES, CORE | CRYSTAL [...] [facility] | [address] | [place] [address] | | | SERVICES, CORE | PARK [...] | + + + + + | [facility] | [address] | [place] [address] | | | SERVICES, TOI | [address] | | | + + + + + X-RAY PORTABLE CHEST 1 VIEW (12/11/2012 6:00 AM PDT) + + + + + + | Component | Value | Ref Range | Performed | Pathologist | | | | | At | Signature | + + + + + + | X-RAY | STUDY: AZ CHEST 1 VIEW | | | | [...] | | | | | | RUI 12/11/2012 8:31 AM | | | | | | | | | | + + + + + + + + | Specimen | + + | | + + + +---------+ + + | Performing | Address | City/State/Zipcode | Phone Number | | Organization | | | | + +---------+ + + | [facility] DEPARTMENT OF | | | | | [...] (H) | 60 - 99 mg/dL | [facility] - | | | GLUCOSE, | [...] + + + | [facility] | [address] | [place], [place] | | | KAILYN MAZA OF [facility] | [address] | [address] | | | TESTS | | | [...] MARQUAM | [address] | [place], [place] | | | KAILYN MAZA OF CARE | [address] | [address] | | | TESTS | | | [...] - CARLOS | [address] | [place], [place] | | | [facility]INT [facility] CARE | [address] | [address] | | | TESTS | | | [...] | | LABORATORY | | | SERVICES, TOI | + + + + + + + + | Performing | Address | City/State/Zipcode | Phone Number | | Organization | | | | + + + + + | [facility] | [address] | [place] [address] | | | SERVICES, CORE | CRYSTAL [...] | + + + + + | [facility] | [address] | [place] [address] | | | SERVICES, CORE | CRYSTAL [...] | + + + + + | [facility] [employer] | [address] | [place] [address] | | | SERVICES, CORE | CRYSTAL [...] [facility] | [address] | [place] [address] | | | SERVICES, CORE | PARK [...] | + + + + + | [facility] | [address] | [place] [address] | | | SERVICES, CORE | PARK [...] | + + + + + | [facility] | [address] | [place] [address] | | | SERVICES, TOI | CRYSTAL [...] MARKATHERINEAM | [address] | [place], [place] | | | KAILYN MAZA OF [facility] | [address] | [address] | | | TESTS | | | [...] CARLOS | [address] | [place], [place] | | | KAILYN MAZA OF [facility] | [address] | [address] | | | TESTS | | | [...] | + + + + + | [facility] [employer] | [address] | [place] [address] | | | SERVICES, CORE | [address] | | | + + + + + CAPILLARY BLOOD GLUCOSE (NO CHG), GERMAN (12/11/2012 12:02 AM PDT) + +---------+ + [...] [facility] | [address] | [place], [place] | | | KAILYN MAZA OF JOHN | [address] | [address] | | | TESTS | | | [...] MARQU[facility] | [address] | [place], [place] | | | KAILYN MAZA OF CARE | [facility] | [address] | | | TESTS | | | [...] | + + + + + | [facility] | [address] | [place] [address] | | | SERVICES, CORE | CRYSTAL [...] MARQU[facility] | [address] | [place], [place] | | | KAILYN MAZA OF JOHN | [address] | [address] | | | TESTS | | | [...] [facility] | [address] | [place] [address] | | | SERVICES, CORE | PARK [...] [facility] | [address] | [place] [address] | | | SERVICES, CORE | PARK [...] | + + + + + | [facility] | [address] | [place] [address] | | | SERVICES, CORE | CRYSTAL [...] (H) | 60 - 99 mg/dL | [facility] - | | | GLUCOSE, | [...] GONZALEZ | [address] | [place], [place] | | | KAILYN MAZA OF [facility] | [facility] | [address] | | | TESTS | | | [...] LUPEAM | [address] | [place], [place] | | | KAILYN MAZA OF JOHN | [address] | [address] | | | TESTS | | | [...] | + + + + + | [facility] | [address] | [place] [address] | | | SERVICES, CORE | CRYSTAL [...] | + + + + + | [facility] | [address] | [place] [address] | | | SERVICES, CORE | PARK [...] [facility] | [address] | [place] [address] | | | TOI MARIN | PARK [...] [facility] | [address] | [place] [address] | | | SERVICES, CORE | PARK [...] | + + + + + | [facility] | [address] | [place] [address] | | | SERVICES, CORE | CRYSTAL [...] (H) | 60 - 99 mg/dL | [facility] - | | | GLUCOSE, | | [...] GONZALEZ | [address] | [place], [place] | | | SHA[facility]NA POINT OF CARE | [address] | [address] | | | TESTS | | | | + + + + + X-RAY PORTABLE CHEST 1 VIEW (12/10/2012 5:27 PM PDT) + + + + + + | Component | Value | Ref Range | Performed | Pathologist | | | | | At | Signature | + + + + + + | X-RAY | STUDY:AZ CHEST 1 VIEW | | | | [...] [facility] | [address] | [place] [address] | | | SERVICES, CORE | PARK [...] GONZALEZ | [address] | [place], [place] | | | KAILYN MAZA OF [facility] | [address] | [address] | | | TESTS | | | | + + + + + IP CONSULT TO PICC TEAM (12/10/2012 3:57 PM PDT) + + + | Narrative | Performed At | + + + | Anais Vieyra 12/10/2012 3:57 PM PICC INSERTION | | | DOCUMENTATION NOTE Today | | | | | | s Date: 12/10/2012 Start Time: 154 Patient Location (Unit/Room #) | | | 8 CICU room 7 Diagnosis: [id number] Coronary artery disease Indications: | | | [...] addressed. Placed | | | by: Anais Sosa) ZOHREH IVT and Zaki De La Paz RN IVT | | | were the practitioners [...] blood return. A | | | 5 [place] Triple lumen Power PICC SOLO catheter was [...] PICC | | | Catheter Lot Number [id number]; There was good blood return from all [...] radiograph. | | | Placed by: Anais Sosa) ZOHREH IVT Assisted by: Zaki | | | Brain BRUNER IVT | | + + + + + | Procedure Note | + + | Anais Vieyra RN - 12/10/2012 3:42 PM PDT PICC INSERTION DOCUMENTATION NOTEToday | | | | s Date: 12/10/2012Start Time: 1545Patient Location (Unit/Room #) 8 CICU room 7Diagnosis: | | [id number] Coronary artery diseaseIndications: (Select all that apply) [...] non-pulsatile blood return. A 5 | | [place] Triple lumen Power PICC SOLO catheter was placed using the modified Seldinger | | technique on the third attempt. At the time of insertion, vessel size was appropriate | | for the catheter size. PICC Catheter: A 55cm catheter was used for placement. The | | PICC catheter was trimmed 0cm, remaining catheter length 55 cm. PICC Catheter Lot | | Number [id number]; There was good blood return from all [...] + + + + | XRAY | STUDY:AZ CHEST PICC LINE | | | | [...] G[facility] | [address] | [place], [place] | | | KAILYN MAZA OF JOHN | [address] | [address] | | | TESTS | | | [...] [facility] | [address] | [place], [place] | | | [facility] POINT OF CARE | [address] | [address] | | | TESTS | | | [...] | + + + + + | [facility] | [address] | [place] [address] | | | SERVICES, CORE | CRYSTAL [...] (H) | 60 - 99 mg/dL | [facility] - | | | GLUCOSE, | [...] GONZALEZ | [address] | [place], [place] | | | KAILYN MAZA OF CARE | [address] | [address] | | | TESTS | | | [...] | + + + + + | [facility] | [address] | [place] [address] | | | SERVICES, CORE | CRYSTAL [...] [facility] | [address] | [place], [place] | | | KAILYN MAZA OF CARE | [address] | [address] | | | TESTS | | | [...] [facility] | [address] | [place], [place] | | | SHAUNNA POINT OF [facility] | [address] | [address] | | | TESTS | | | | + + + + + X-RAY PORTABLE CHEST 1 VIEW (12/10/2012 5:41 AM PDT) + + + + + + | Component | Value | Ref Range | Performed | Pathologist | | | | | At | Signature | + + + + + + | X-RAY | STUDY: AZ CHEST 1 VIEW | | | | [...] [facility] | [address] | [place], [place] | | | KAILYN MAZA OF JOHN | [address] | [address] | | | TESTS | | | [...] - MAR[facility] | [address] | [place], [place] | | | [facility] POINT OF CARE | [address] | [address] | | | TESTS | | | [...] + + + | [facility] | [address] | [place], [place] | | | SHA[facility] POINT OF [facility] | [address] | [address] | | | TESTS | | | [...] | + + + + + | [facility] | [address] | [place] [address] | | | SERVICES, CORE | PARK [...] [facility] | [address] | [place] [address] | | | SERVICES, CORE | CRYSTAL [...] | + + + + + | [facility] | [address] | [place] [address] | | | SERVICES, CORE | PARK [...] [facility] | [address] | [place] [address] | | | SERVICES, CORE | CRYSTAL [...] | + + + + + | [facility] | [address] | [place] [address] | | | SERVICES, CORE | [address] | | | + + + + + MAGNESIUM, PLASMA (12/10/2012 2:05 AM PDT) + +---------+ + + + | Component | Value | Ref Range | Performed | Pathologist | | | | | At | Signature | + +---------+ + + + | MAGNESIUM,P | 2.8 (H) | 1.8 - 2.5 mg/dL | [facility] [...] | + + + + + | [facility] [employer] | [address] | [place] [address] | | | SERVICES, CORE | CRYSTAL [...] [facility] | [address] | [place] | | | KAILYN MAZA OF CARE | [address] | [address] | | | TESTS | | | [...] | + + + + + | [facility] | [address] | [place] [address] | | | TANIA, TOI | CRYSTAL [...] MARQUAM | [address] | [place], [place] | | | KAILYN MAZA OF JOHN | [address] | [address] | | | TESTS | | | [...] GONZALEZ | [address] | [place], [place] | | | [facility]INT [facility] CARE | [address] | [address] | | | TESTS | | | [...] MARQUAM | [address] | [place], [place] | | | H[place], POINT OF CARE | [address] | [address] | | | TESTS | | | [...] MARQUAM | [address] | [place], [place] | | | KAILYN MAZA OF JOHN | [facility] | [address] | | | TESTS | | | [...] GONZALEZ | [address] | [place], [place] | | | [facility] POINT OF CARE | [address] | [address] | | | TESTS | | | [...] MARQUAM | [address] | [place], [place] | | | H[facility], POINT OF CARE | [address] | [address] | | | TESTS | | | [...] [facility] | [address] | [place] [address] | | | SERVICES, CORE | PARK [...] | + + + + + | [facility] | [address] | [place] [address] | | | SERVICES, CORE | PARK [...] instructions of the | LABORATORY | | [facility] Lab Manual: | SERVICES, CORE | | [email or web address] | | + + + + + + + + | Performing | Address | City/State/Zipcode | Phone Number | | Organization | | | | + + + + + | [facility] | [address] | [place] [address] | | | SERVICES, CORE | PARK [...] | + + + + + | [facility] | [address] | [place] [address] | | | SERVICES, TOI | CRYSTAL [...] MARQUAM | [address] | [place], [place] | | | KAILYN MAZA OF CARE | [address] | [address] | | | TESTS | | | [...] - CARLOS | [address] | [place], [place] | | | KAILYN MAZA OF CARE | [address] | [address] | | | TESTS | | | [...] (H) | 60 - 99 mg/dL | [facility] - | | | GLUCOSE, | | [...] GONZALEZ | [address] | [place], [place] | | | KAILYN MAZA OF JOHN | [address] | [address] | | | TESTS | | | [...] MARQUAM | [address] | [place], [place] | | | [facility] POINT [facility] CARE | [address] | [address] | | | TESTS | | | [...] WARD | | | | | | ([id number]) on 12/11/2012 | | | | | | 8:39:29 AM | | | | + + + + + + + + | Specimen | + + | | + + + + + | Narrative | Performed At | + + + | Please click | [facility] DEPT OF | | on view image for the detailed interpretation from [employer] results. | CARDIOLOGY | + + + + + + + + | Performing | Address | City/State/Zipcode | Phone Number | | Organization | | | | + + + + + | [facility] | [address] | [place], [place] | | | CARDIOLOGY | [address] | [address] | | + + + + + [...] [facility] | [address] | [place], [place] | | | KAILYN MAZA OF CARE | [address] | [address] | | | TESTS | | | [...] [facility] | [address] | [place], [place] | | | [facility] POINT [facility] CARE | [address] | [address] | | | TESTS | | | [...] GONZALEZ | [address] | [place], [place] | | | KAILYN MAZA OF JOHN | [address] | [address] | | | TESTS | | | [...] MARQUAM | [address] | [place], [place] | | | KAILYN MAZA OF CARE | [address] | [address] | | | TESTS | | | [...] LUPE[facility] | [address] | [place], [place] | | | [facility]INT [facility] CARE | [address] | [address] | | | TESTS | | | [...] GONZALEZ | [address] | [place], [place] | | | KAILYN MAZA OF JOHN | [address] | [address] | | | TESTS | | | [...] MARQUAM | [address] | [place], [place] | | | KAILYN MAZA OF CARE | [address] | [address] | | | TESTS | | | | + + + + + X-RAY PORTABLE CHEST 1 VIEW (12/09/2012 5:59 AM PDT) + + + + + + | Component | Value | Ref Range | Performed | Pathologist | | | | | At | Signature | + + + + + + | X-RAY | Exam: AZ CHEST 1 VIEW, | | | | [...] GONZALEZ | [address] | [place], [place] | | | [facility] CARE | [address] | [address] | | | TESTS | | | [...] MARQUAM | [address] | [place], [place] | | | H[facility], POINT OF CARE | [address] | [address] | | | TESTS | | | [...] MARQUAM | [address] | [place], [place] | | | KAILYN MAZA OF JOHN | [facility] | [address] | | | TESTS | | | [...] GONZALEZ | [address] | [place], [place] | | | SHAUNNA POINT OF [facility] | [address] | [address] | | | TESTS | | | [...] [facility] | [address] | [place] [address] | | | SERVICES, CORE | PARK [...] [facility] | [address] | [place] [address] | | | SERVICES, CORE | CRYSTAL [...] [facility] | [address] | [place] [address] | | | SERVICES, CORE | PARK [...] | + + + + + | [facility] | [address] | [place] [address] | | | SERVICES, CORE | CRYSTAL [...] + + + + + + | JAYDA D CMNT | No Hemo | | [...] [facility] | [address] | [place] [address] | | | SERVICES, CORE | PARK [...] | + + + + + | [facility] | [address] | [place] [address] | | | SERVICES, CORE | PARK [...] | + + + + + | [facility] | [address] | [place] [address] | | | SERVICES, CORE | PARK [...] CARLOS | [address] | [place], [place] | | | KAILYN MAZA OF JOHN | [address] | [address] | | | TESTS | | | [...] GONZALEZ | [address] | [place], [place] | | | [place] [facility] | [address] | [address] | | | TESTS | | | [...] (H) | 60 - 99 mg/dL | [facility] - | | | GLUCOSE, | | [...] GONZALEZ | [address] | [place], [place] | | | KAILYN MAZA OF CARE | [address] | [address] | | | TESTS | | | [...] MARKATHERINEAM | [address] | [place], [place] | | | KAILYN MAZA OF CARE | [address] | [address] | | | TESTS | | | [...] GONZALEZ | [address] | [place], [place] | | | [place] [facility] | [address] | [address] | | | TESTS | | | | + + + + + X-RAY PORTABLE CHEST 1 VIEW (12/08/2012 7:41 PM PDT) + + + + + + | Component | Value | Ref Range | Performed | Pathologist | | | | | At | Signature | + + + + + + | X-RAY | STUDY:[place] CHEST 1 VIEW | | | | | PORTABLE | 12/08/12 19:41:00 | | | | | CHEST 1 | COMPARISON:December 07, | | | | | VIEW | 12/08/12 INDICATION: | | | | | | Post mediastinal washout | | | | | | and is closer, left | | | | | | Jigna | | | | | | placement [...] | | + +---------+ + + | [facility] DEPARTMENT OF | | | | | [...] [facility] | [address] | [place] [address] | | | SERVICES, CORE | PARK [...] [facility] | [address] | [place] [address] | | | SERVICES, CORE | PARK [...] | + + + + + | [facility] | [address] | [place] [address] | | | TANIA, TOI | CRYSTAL [...] | + + + + + | [facility] | [address] | [place] [address] | | | SERVICES, CORE | CRYSTAL [...] [facility] | [address] | [place] [address] | | | TOI MARIN | CRYSTAL [...] + + + + + | [facility] | [address] | [place], [place] | | | KAILYN MAZA OF CARE | [address] | [address] | | | TESTS | | | [...] + | [facility] - | [address] | [place] [address] | | | [place] | | | [...] | | Final SMEAR:AFB not | | [facility] | | | | detected CULTURE | [...] + | [facility] | [address] | [place] [address] | | | [place] | | | | + + + [...] + | [facility] | [address] | [place] [address] | | | [place] | | | | + + + [...] | + + + + + | [id number] - [facility] - | [address] | [place] [address] | | | [facility] | | | | + + + [...] + | [facility] | [address] | [place] [address] | | | [place] | | | [...] + | [facility] | [address] | [place] [address] | | | [place] | | | [...] + | [place] | [address] | [place] [address] | | | [facility] | | | | + + + [...] + | [place] | [address] | [place] [address] | | | [place] | | | | + + + [...] + | [place] | [address] | [place] [address] | | | [place] | | | | + + + [...] [facility] | [address] | [place] [address] | | | SERVICES, | [address] [...] [facility] | [address] | [place] [address] | | | SERVICES, | [address] [...] [facility] | [address] | [place], [place] | | | KAILYN MAZA OF CARE | [facility] | [address] | | | TESTS | | | | + + + + + CAPILLARY BLOOD GLUCOSE (NO CHG), POC (12/08/2012 10:24 AM PDT) + +---------+ [...] GONZALEZ | [address] | [place], [place] | | | [facility] [facility]INT [facility] CARE | [address] | [address] | | | TESTS | | | [...] | + + + + + | [facility] | [address] | [place] [address] | | | SERVICES, CORE | CRYSTAL [...] MARQUAM | [address] | [place], [place] | | | [facility] [facility] | [address] | [address] | | | TESTS | | | [...] [facility] | [address] | [place] [address] | | | SERVICES, CORE | PARK [...] + | [facility] | [address] | [place], [place] | | | KAILYN MAZA OF [facility] | [address] | [address] | | | TESTS | | | | + + + + + X-RAY PORTABLE CHEST 1 VIEW (12/08/2012 5:49 AM PDT) + + + + + + | Component | Value | Ref Range | Performed | Pathologist | | | | | At | Signature | + + + + + + | X-RAY | AZ CHEST 1 VIEW, | | | | [...] | | | | | | SONAL STOKES MDAuthor: | | | | | | [...] MARQU[facility] | [address] | [place], [place] | | | KAILYN MAZA OF CARE | [address] | [address] | | | TESTS | | | [...] for children less than 6 months | [facility] | | can be found in the Hemostasis Section general instructions of the | LABORATORY | | [facility] Lab Manual: | TOI MARIN | | [email or web address] | | + + + + + + + + | Performing | Address | City/State/Zipcode | Phone Number | | Organization | | | | + + + + + | [facility] | [address] | [place] [address] | | | TOI MARIN | CRYSTAL [...] | + + + + + | [facility] | [address] | [place] [address] | | | TOI MARIN | CRYSTAL [...] DUNGQUAM | [address] | [place], [place] | | | KAILYN MAZA OF [facility] | [address] | [address] | | | TESTS | | | [...] | + + + + + | [facility] | [address] | [place] [address] | | | SERVICES, CORE | CRYSTAL [...] + + | NEUTROPHIL | 82 (H)Comment: Dohle | 50 - 70 % | [facility] [...] [facility] | [address] | [place] [address] | | | SERVICES, CORE | PARK [...] | + + + + + | [facility] | [address] | [place] [address] | | | SERVICES, CORE | CRYSTAL [...] [facility] | [address] | [place] [address] | | | SERVICES, CORE | PARK [...] | + + + + + | [facility] | [address] | [place] [address] | | | SERVICES, CORE | CRYSTAL [...] (H) | 60 - 99 mg/dL | [facility] - | | | GLUCOSE, | [...] GONZALEZ | [address] | [place], [place] | | | KAILYN MAZA OF CARE | [address] | [address] | | | TESTS | | | [...] MARQUAM | [address] | [place], [place] | | | KAILYN MAZA OF CARE | [address] | [address] | | | TESTS | | | [...] LUPEAM | [address] | [place], [place] | | | [facility]INT OF CARE | [facility] | [address] | | | TESTS | | | [...] | + + + + + | [facility] | [address] | [place] [address] | | | SERVICES, CORE | CRYSTAL [...] (H) | 60 - 99 mg/dL | [facility] - | | | GLUCOSE, | [...] + + + | [facility] GONZALE[facility] | [address] | [place], [place] | | | [facility] [facility]ARE | [address] | [address] | | | TESTS | | | [...] MARQUAM | [address] | [place], [place] | | | KAILYN MAZA OF CARE | [facility] | [address] | | | TESTS | | | [...] - MARQUAM | [address] | [place], [place] | | | [facility]ARE | [address] | [address] | | | TESTS | | | [...] GONZALEZ | [address] | [place], [place] | | | [facility] [facility]ARE | [address] | [address] | | | TESTS | | | [...] instructions of the | LABORATORY | | [facility] Lab Manual: | SERVICES, CORE | | [email or web address] | | + + + + + + + + | Performing | Address | City/State/Zipcode | Phone Number | | Organization | | | | + + + + + | [facility] | [address] | [place] [address] | | | TANIA, TOI | CRYSTAL [...] [facility] | [address] | [place] [address] | | | SERVICES, CORE | PARK [...] | + + + + + | [facility] | [address] | [place] [address] | | | SERVICES, CORE | CRYSTAL [...] (H) | 60 - 99 mg/dL | [facility] - | | | GLUCOSE, | [...] GONZALEZ | [address] | [place], [place] | | | KAILYN MAZA OF CARE | [address] | [address] | | | TESTS | | | [...] MARQUAM | [address] | [place], [place] | | | [facility]ARE | [address] | [address] | | | TESTS | | | [...] MARQUAM | [address] | [place], [place] | | | KAILYN MAZA OF JOHN | [address] | [address] | | | TESTS | | | [...] (H) | 60 - 99 mg/dL | [facility] - | | | GLUCOSE, | | [...] GONZALEZ | [address] | [place], [place] | | | KAILYN MAZA OF CARE | [address] | [address] | | | TESTS | | | [...] | + + + + + | [facility] | [address] | [place] [address] | | | TANIA, TOI | CRYSTAL [...] MARQU[facility] | [address] | [place], [place] | | | [place], POINT OF CARE | [address] | [address] | | | TESTS | | | [...] MARQUAM | [address] | [place], [place] | | | KAILYN MAZA OF JOHN | [address] | [address] | | | TESTS | | | [...] GONZALEZ | [address] | [place], [place] | | | KAILYN MAZA OF CARE | [address] | [address] | | | TESTS | | | [...] [facility] | [address] | [place] [address] | | | SERVICESTOI | [address] | | | + [...] [facility] | [address] | [place] [address] | | | SERVICES, CORE | PARK [...] for children less than 6 months | [facility] | | can be found in the Hemostasis Section general instructions of the | LABORATORY | | [facility] Lab Manual: | SERVICES, CORE | | [email or web address] | | + + + + + + + + | Performing | Address | City/State/Zipcode | Phone Number | | Organization | | | | + + + + + | [facility] | [address] | [place] [address] | | | SERVICES, CORE | PARK [...] | + + + + + | [facility] | [address] | [place] [address] | | | SERVICES, CORE | PARK [...] | + + + + + | [facility] | [address] | [place] [address] | | | SERVICES, TOI | CRYSTAL [...] | 97.8 | 92.0 - 98.0 | [facility] | | | ARTERIAL | | | [...] | + + + + + | [facility] | [address] | [place] [address] | | | SERVICES, CORE | PARK [...] - MARQU[facility] | [address] | [place], [place] | | | [place], [place] OF [facility] | [address] | [address] | | | TESTS | | | | + + + + + X-RAY PORTABLE CHEST 1 VIEW (12/07/2012 6:14 AM PDT) + + + + + + | Component | Value | Ref Range | Performed | Pathologist | | | | | At | Signature | + + + + + + | X-RAY | STUDY: AZ CHEST 1 VIEW | | | | [...] | | | | | | FUSS 12/07/2012 10:08 AM | | | | [...] [facility] | [address] | [place] [address] | | | TOI MARIN | PARK [...] + | [facility] | [address] | [place], [place] | | | [place] POINT OF [facility] | [address] | [address] | | | TESTS | | | [...] | + + + + + | [facility] | [address] | [place] [address] | | | SERVICES, CORE | PARK [...] | + + + + + | [facility] [employer] | [address] | [place] [address] | | | TANIA, CORE | [address] | | | [...] | + + + + + | [facility] | [address] | [place] [address] | | | TOI MARIN | CRYSTAL [...] (H) | 60 - 99 mg/dL | [facility] - | | | GLUCOSE, | [...] CARLOS | [address] | [place], [place] | | | [facility] [facility]INT [facility] CARE | [address] | [address] | | | TESTS | | | [...] CARLOS | [address] | [place], [place] | | | KAILYN MAZA OF JOHN | [facility] | [address] | | | TESTS | | | [...] | + + + + + | [facility] | [address] | [place] [address] | | | SERVICES, TOI | PARK [...] CARLOS | [address] | [place], [place] | | | [facility] POINT OF CARE | [facility] | [address] | | | TESTS | | | [...] + + | [facility] | [address] | [place] [address] | | | TANIA, TOI | [address] [...] | + + + + + | [facility] | [address] | [place] [address] | | | SERVICES, CORE | PARK [...] | + + + + + | [facility] | [address] | [place] [address] | | | SERVICES, CORE | CRYSTAL [...] MARQUAM | [address] | [place], [place] | | | KAILYN MAZA OF JOHN | [address] | [address] | | | TESTS | | | [...] | + + + + + | [facility] [employer] | [address] | [place] [address] | | | SERVICES, CORE | CRYSTAL [...] MARQUAM | [address] | [place], [place] | | | KAILYN MAZA OF CARE | [address] | [address] | | | TESTS | | | [...] [facility] | [address] | [place] [address] | | | SERVICES, CORE | PARK [...] | + + + + + | [facility] | [address] | [place] [address] | | | TOI MARIN | CRYSTAL [...] [facility] | [address] | [place] [address] | | | SERVICES, CORE | PARK [...] | + + + + + | [facility] | [address] | [place] [address] | | | SERVICES, CORE | CRYSTAL [...] [facility] | [address] | [place] [address] | | | SERVICES, CORE | PARK [...] | + + + + + | [facility] | [address] | [place] [address] | | | SERVICES, CORE | PARK [...] | + + + + + | [facility] | [address] | [place] [address] | | | TANIA, TOI | [address] | | | + + + + + KAYLEN CHINCHILLA (12/06/2012 8:27 PM PDT) + +-------+ + [...] [facility] | [address] | [place] [address] | | | SERVICES, CORE | CRYSTAL [...] WARD | | | | | | ([id number]) on 12/08/2012 | | | | | | 9:53:09 PM | | | | + + + + + + + + | Specimen | + + | | + + + + + | Narrative | Performed At | + + + | Please click | [facility] | | on view image for the detailed interpretation from Gertrude results. | CARDIOLOGY | + + + + + + + + | Performing | Address | City/State/Zipcode | Phone Number | | Organization | | | | + + + + + | [facility] | [address] | [place], [place] | | | CARDIOLOGY | [address] | [address] | | + + + + + [...] | + + + + + | [facility] | [address] | [place] [address] | | | [facility] | [address] | | | + + + + + OPERATION RECORD (12/06/2012 2:42 PM PDT) + + | Transcriptions | + + | Helen Gee MD - 12/06/2012 7:20 AM PDT Date: 12/04/2012ttending | | Surgeon: Narendra Lunsford M.D.Lime Burner(s): Helen Alberts | | MARCIA Geereoperative Diagnosis(es):Postoperative [...] | | present for the procedure.Ladarius Vaughan M.D.JONNATHAN / [id number] / | | [id number] / [id number] / T: 12/06/2012 | |placed a sternal [...] | | | |CJW / HS | |[id number] / [id number] / [id number] / | | | | | + [...] | + + + + + | [facility] | [address] | [place] [address] | | | SERVICES, CORE | CRYSTAL [...] | + + + + + | [facility] | [address] | [place] [address] | | | SERVICES, CORE | PARK [...] [facility] | [address] | [place] [address] | | | SERVICES, CORE | PARK [...] [facility] | [address] | [place] [address] | | | SERVICES, CORE | PARK [...] 178 | 150 - 400 K/cu | [facility] [...] | + + + + + | [facility] | [address] | [place] [address] | | | SERVICES, CORE | CRYSTAL [...] | | | | | | JARVIS 12/06/2012 10:41 | | | | | [...] [facility] | [address] | [place] [address] | | | SERVICES, CORE | PARK [...] | + + + + + | [facility] | [address] | [place] [address] | | | SERVICES, CORE | CRYSTAL [...] | + + + + + | [facility] | [address] | [place] [address] | | | SERVICES, CORE | PARK [...] + + + + + | [facility] P[facility] | [address] | [place] [address] | | | SERVICES, TOI | [address] [...] | + + + + + | [facility] | [address] | [place] [address] | | | SERVICES, CORE | PARK [...] [facility] | [address] | [place] [address] | | | SERVICES, CORE | PARK [...] | + + + + + | [facility] | [address] | [place] [address] | | | TANIA, CORE | [address] [...] GONZALEZ | [address] | [place], [place] | | | [place] [facility] | [address] | [address] | | | TESTS | | | [...] [facility] | [address] | [place] [address] | | | SERVICES, CORE | CRYSTAL [...] | 97.0 | 92.0 - 98.0 | [facility] | [...] | + + + + + | [facility] | [address] | [place] [address] | | | SERVICES, CORE | [address] | | | + + + + + 12 LEAD ECG (12/06/2012 2:33 AM PDT) + + + + + + | Component | Value | Ref Range | Performed | Pathologist | | | | | At | Signature | + + + + + + | VENTRICULAR | 122 | BPM | [facility] | | | RATE | | [...] | | | | | HEIDI CASTILLO ([id number]) | | | | | | on 12/06/2012 3:35:00 PM | | | | + + + + + + + + | Specimen | + + | | + + + + + | Narrative | Performed At | + + + | Please click | [facility] | | on view image for the detailed interpretation from Gertrude results. | CARDIOLOGY | + + + + + + + + | Performing | Address | City/State/Zipcode | Phone Number | | Organization | | | | + + + + + | [facility] | [address] | [place], [place] | | | CARDIOLOGY | [address] | [address] | | + + + + + [...] [facility] | [address] | [place] [address] | | | SERVICES, CORE | PARK [...] [facility] | [address] | [place] [address] | | | SERVICES, CORE | [address] | | | + + + [...] | + + + + + | [facility] | [address] | [place] [address] | | | SERVICES, [facility] | [address] | | | + [...] [facility] | [address] | [place] [address] | | | SERVICES, CORE | PARK [...] | + + + + + | [facility] | [address] | [place] [address] | | | SERVICES, CORE | [address] | | | + + + + + CAPILLARY BLOOD GLUCOSE (SHERWIN CHG) POC (12/06/2012 1:44 AM PDT) + +---------+ [...] [facility] | [address] | [place], [place] | | | [facility] POINT OF CARE | [address] | [address] | | | TESTS | | | [...] | [facility] | [address] | [place], [place] | | | [place] POINT OF CARE | [address] | [address] | | | TESTS | | | [...] [facility] | [address] | [place] [address] | | | SERVICES, CORE | PARK [...] [facility] | [address] | [place] [address] | | | SERVICES, CORE | PARK [...] | + + + + + | [facility] | [address] | [place] [address] | | | SERVICES, CORE | PARK [...] | + + + + + | [facility] | [address] | [place] [address] | | | SERVICES, CORE | PARK [...] [facility] | [address] | [place] [address] | | | SERVICES, CORE | PARK [...] [facility] | [address] | [place] [address] | | | SERVICES, CORE | CRYSTAL [...] | + + + + + | [facility] | [address] | [place] [address] | | | TOI MARIN | [address] [...] (H) | 60 - 99 mg/dL | [facility] - | | | GLUCOSE, | [...] + + | [facility] | [address] | [place], [place] | | | [place] [facility] | [address] | [address] | | | TESTS | | | [...] [facility] | [address] | [place] [address] | | | SERVICES, CORE | PARK [...] [facility] | [address] | [place] [address] | | | SERVICES, TOI | P[address] [...] | + + + + + | [facility] | [address] | [place] [address] | | | SERVICES, CORE | CRYSTAL [...] [facility] | [address] | [place] [address] | | | SERVICES, CORE | PARK [...] [facility] | [address] | [place] [address] | | | SERVICES, CORE | PARK [...] [facility] | [address] | [place], [place] | | | KAILYN MAZA OF CARE | [facility] | [address] | | | TESTS | | | [...] GONZALEZ | [address] | [place], [place] | | | KAILYN MAZA OF CARE | [address] | [address] | | | TESTS | | | [...] MARKATHERINEAM | [address] | [place], [place] | | | KAILYN MAZA OF JOHN | [address] | [address] | | | TESTS | | | [...] | + + + + + | [facility] | [address] | [place] [address] | | | SERVICES, CORE | CRYSTAL [...] [facility] | [address] | [place] [address] | | | SERVICES, CORE | PARK [...] [facility] | [address] | [place] [address] | | | SERVICES, CORE | PARK [...] + | [facility] | [address] | [place], [place] | | | [place] POINT OF CARE | [address] | [address] | | | TESTS | | | [...] | + + + + + | [facility] | [address] | [place] [address] | | | SERVICES, CORE | CRYSTAL [...] | 13.00 (H) | <0.80 ng/mL | [facility] | [...] | + + + + + | [facility] | [address] | [place] [address] | | | SERVICES, CORE | [address] | | | + + + + + X-RAY PORTABLE CHEST 1 VIEW (12/05/2012 7:56 AM PDT) + + + + + + | Component | Value | Ref Range | Performed | Pathologist | | | | | At | Signature | + + + + + + | X-RAY | STUDY: AZ CHEST 1 VIEW | | | | [...] - [facility] | [address] | [place], [place] | | | KAILYN MAZA OF CARE | [address] | [address] | | | TESTS | | | [...] (H) | 60 - 99 mg/dL | [facility] - | | | GLUCOSE, | | [...] + + + | [facility] GON[facility] | [address] | [place], [place] | | | [place] [facility] | [address] | [address] | | | TESTS | | | [...] [facility] | [address] | [place], [place] | | | KAILYN MAZA OF JOHN | [address] | [address] | | | TESTS | | | [...] [facility] | [address] | [place] [address] | | | SERVICES, CORE | CRYSTAL [...] [facility] | [address] | [place] [address] | | | SERVICES, CORE | [address]ARK [...] | + + + + + | [facility] | [address] | [place] [address] | | | SERVICES, CORE | CRYSTAL [...] + + | [facility] | [address] | [place] [address] | | | SERVICES, CORE | PARK [...] [facility] | [address] | [place] [address] | | | SERVICES, CORE | PARK [...] | + + + + + | [facility] | [address] | [place] [address] | | | SERVICES, CORE | CRYSTAL [...] GONZALEZ | [address] | [place], [place] | | | [place] POINT OF CARE | [address] | [address] | | | TESTS | | | [...] + + + | Please click | [facility] | | on view image for the detailed interpretation from Gertrude results. | CARDIOLOGY | + + + + + + + + | Performing | Address | City/State/Zipcode | Phone Number | | Organization | | | | + + + + + | [facility] | [address] | [place], [place] | | | CARDIOLOGY | [address] | [address] | | + + + + + SAGAR TREVINO (12/05/2012 2:14 AM PDT) + + + [...] | + + + + + | [facility] | [address] | [place] [address] | | | SERVICES, CORE | [address] | | | + + + + + CAPILLARY BLOOD GLUCOSE (NO CHG) POC (12/05/2012 1:56 AM PDT) + +---------+ [...] [facility] | [address] | [place], [place] | | | [facility]ARE | [address] | [address] | | | TESTS | | | [...] + | [facility] | [address] | [place], [place] | | | [facility]INT [facility] CARE | [address] | [address] | | | TESTS | | | [...] + + + | [facility] | [address] | [place], [place] | | | KAILYN MAZA OF CARE | [address] | [address] | | | TESTS | | | [...] [facility] | [address] | [place] [address] | | | SERVICES, CORE | [address] [...] [facility] | [address] | [place] [address] | | | TOI MARIN | [address] [...] | | + +---------+ + + | [facility] DEPARTMENT OF | | | | | [...] [facility] | [address] | [place], [place] | | | KAILYN MAZA OF CARE | [address] | [address] | | | TESTS | | | [...] [facility] | [address] | [place] [address] | | | SERVICES, CORE | [address] [...] [facility] | [address] | [place] [address] | | | SERVICES, CORE | [address] [...] | + + + + + | [facility] | [address] | [place] [address] | | | SERVICES, TOI | PARK [...] [facility] | [address] | [place], [place] | | | KAILYN MAZA OF CARE | [address] | [address] | | | TESTS | | | [...] | + + + + + | [facility] | [address] | [place] [address] | | | TOI MARIN | [address] [...] | | | | | signed / DUTCH | | | | | [...] | | + +---------+ + + | [facility] DEPARTMENT OF | | | | | [...] | + + + + + | [facility] | [address] | [place] [address] | | | SERVICES, CORE | PARK [...] | + + + + + | [facility] | [address] | [place] [address] | | | SERVICES, CORE | [address] | | | + + + [...] + + + + + | [facility] | [address] | [place] [address] | | | SERVICES, CORE | [address] [...] [facility] | [address] | [place] [address] | | | SERVICES, CORE | P[address] [...] | + + + + + | [facility] | [address] | [place] [address] | | | SERVICES, CORE | [address] | | | + + + + + MAGNESIUM, PLASMA (12/04/2012 7:01 PM PDT) + +---------+ + + + | Component | Value | Ref Range | Performed | Pathologist | | | | | At | Signature | + +---------+ + + + | MAGNESIUM,P | 3.3 (H) | 1.8 - 2.5 mg/dL | [facility] | | | [place] | | | [...] | + + + + + | [facility] | [address] | [place] [address] | | | SERVICES, CORE | [address] [...] [facility] | [address] | [place] [address] | | | SERVICES, CORE | [address] [...] [facility] | [address] | [place] [address] | | | SERVICES, | [address] [...] + | [facility] | [address] | [place] [address] | | | SERVICES, | [address] [...] | + + + + + | [facility] | [address] | [place] [address] | | | TOI MARIN | [address] [...] + + + + | PRODUCT | [id number] | | [facility] | | | UNIT [...] + + + + | BLOOD | 81930 | | [facility] | | | PRODUCT [...] | + + + + + | [facility] DEPARTMENT | [address] | [place] [address] | | | PATHOLOGY | [address] [...] + + + + | PRODUCT | [id number] | | [facility] | | | UNIT [...] + + + + | BLOOD | [id number] | | [facility] | | | PRODUCT [...] | + + + + + | [facility] DEPARTMENT OF | [address] | [place] [address] | | | PATHOLOGY | [address] [...] + + + + | PRODUCT | [id number] | | [facility] | | | UNIT [...] + + + + | BLOOD | 92549 | | [facility] | | | PRODUCT [...] | + + + + + | [facility] DEPARTMENT OF | [address] | [place] [address] | | | PATHOLOGY | [address] [...] + + + + | PRODUCT | [id number] | | [facility] | | | UNIT [...] + + + + | BLOOD | 24764 | | [facility] | | | PRODUCT [...] DEPARTMENT OF | [address] | [place] [address] | | | PATHOLOGY | [address] [...] + + + + | PRODUCT | [id number] | | [facility] | | | UNIT [...] + + + + | BLOOD | 86524 | | [facility] | | | PRODUCT [...] | + + + + + | [facility] DEPARTMENT OF | [address] | [place] [address] | | | PATHOLOGY | [address] [...] + + + + | PRODUCT | [id number] | | [facility] | | | UNIT [...] + + + + | BLOOD | 83468 | | [facility] | | | PRODUCT [...] | [address] | [place] [address] | | | PATHOLOGY | [address] [...] + + + + | PRODUCT | [id number] | | [facility] | | | UNIT [...] + + + + | BLOOD | 33964 | | [facility] | | | PRODUCT [...] | + + + + + | [facility] | [address] | [place] [address] | | | PATHOLOGY | [address] [...] + + + + | PRODUCT | [id number] | | [facility] | | | UNIT [...] + + + + | BLOOD | 02955 | | [facility] | | | PRODUCT [...] DEPARTMENT OF | [address] | [place] [address] | | | PATHOLOGY | [address] [...] + + + + | PRODUCT | [id number] | | [facility] | | | UNIT [...] + + + + | BLOOD | 33744 | | [facility] | | | PRODUCT [...] | + + + + + | [facility] | [address] | [place] [address] | | | PATHOLOGY | [address] [...] + + + + | PRODUCT | [id number] | | [facility] | | | UNIT [...] + + + + | BLOOD | 99105 | | [facility] | | | PRODUCT [...] DEPARTMENT OF | [address] | [place] [address] | | | PATHOLOGY | [address] [...] + + + + | PRODUCT | [id number] | | [facility] | | | UNIT [...] + + + + | BLOOD | 90488 | | [facility] | | | PRODUCT [...] | + + + + + | [facility] DEPARTMENT OF | [address] | [place] [address] | | | PATHOLOGY | [address] [...] + + + + | PRODUCT | [id number] | | [facility] | | | UNIT [...] + + + + | BLOOD | 78998 | | [facility] | | | PRODUCT [...] | [address] | [place] [address] | | | PATHOLOGY | [address] [...] + + + + | PRODUCT | [id number] | | [facility] | | | UNIT [...] + + + + | BLOOD | 22567 | | [facility] | | | PRODUCT [...] + | [facility] DEPARTMENT | [address] | [place] [address] | | | PATHOLOGY | [address] [...] + + + + | PRODUCT | [id number] | | [facility] | | | UNIT [...] + + + + | BLOOD | 77314 | | [facility] | | | PRODUCT [...] DEPARTMENT OF | [address] | [place] [address] | | | PATHOLOGY | [address] [...] [facility] | [address] | [place], [place] | | | THERAPY | [address] | [address] | | + + + + + [...] + + | [facility] | [address] | [place], [place] | | | THERAPY | [address] | [address] | | + + + + + IONIZD CA WB, POC RESP (12/04/2012 4:33 PM PDT) + +-------+ + + + | Component | Value | Ref Range | Performed | Pathologist | | | | | At | Signature | + +-------+ + + + | BETRA | 1.21 | 1.14 - 1.32 | [...] [facility] | [address] | [place], [place] | | | THERAPY | [address] | [address] | | + + + + + [...] [facility] | [address] | [place], [place] | | | THERAPY | [address] | [address] | | + + + + + [...] [facility] | [address] | [place], [place] | | | THERAPY | [address] | [address] | | + + + + + [...] [facility] | [address] | [place], [place] | | | THERAPY | [address] | [address] | | + + + + + [...] + + + + + | [facility] | [address] | [place] [address] | | | SERVICES, CORE | CRYSTAL [...] [facility] | [address] | [place] [address] | | | SERVICES, CORE | [address] [...] | + + + + + | [facility] | [address] | [place] [address] | | | SERVICES, CORE | [address] [...] | 4.60 (H) | <0.80 ng/mL | [facility] | | | | | | LABORATORY [...] + | [facility] | [address] | [place] [address] | | | SERVICES, CORE | CRYSTAL [...] [facility] | [address] | [place], [place] | | | THERAPY | [address] | [address] | | + + + + + [...] [facility] | [address] | [place], [place] | | | THERAPY | [address] | [address] | | + + + + + IONIZD CA WB, POC RESP (12/04/2012 4:06 PM [...] RESPIRATORY | [address] | [place], [place] | | | THERAPY | [address] | [address] | | + + + + + [...] [facility] | [address] | [place], [place] | | | THERAPY | [address] | [address] | | + + + + + [...] + + + + + | [facility] | [address] | [place], [place] | | | THERAPY | [address] | [address] | | + + + + + [...] [facility] | [address] | [place], [place] | | | THERAPY | [address] | [address] | | + + + + + [...] [facility] | [address] | [place], [place] | | | KAILYN MAZA OF JOHN | [address] | [address] | | | TESTS | | | [...] [facility] | [address] | [place] [address] | | | SERVICES, CORE | [address] [...] [facility] | [address] | [place] [address] | | | SERVICES, CORE | [address] [...] | + + + + + | [facility] | [address] | [place] [address] | | | SERVICES, CORE | [address] | | | + + + + + MAGNESIUM, PLASMA (12/04/2012 3:37 PM PDT) + +---------+ + + + | Component | Value | Ref Range | Performed | Pathologist | | | | | At | Signature | + +---------+ + + + | MAGNESIUM,P | 3.2 (H) | 1.8 - 2.5 mg/dL | [facility] | | | LASMA | | | [...] | + + + + + | [facility] | [address] | [place] [address] | | | SERVICES, CORE | CRYSTAL [...] | + + + + + | [facility] | [address] | [place] [address] | | | SERVICES, CORE | CRYSTAL [...] [facility] | [address] | [place], [place] | | | THERAPY | [address] | [address] | | + + + + + [...] + + | [facility] | [address] | [place], [place] | | | THERAPY | [address] | [address] | | + + + + + IONIZD CA WB, POC RESP (12/04/2012 3:33 PM PDT) [...] [facility] | [address] | [place], [place] | | | THERAPY | [address] | [address] | | + + + + + [...] [facility] | [address] | [place], [place] | | | THERAPY | [address] | [address] | | + + + + + [...] [facility] | [address] | [place], [place] | | | THERAPY | [address] | [address] | | + + + + + [...] [facility] | [address] | [place], [place] | | | THERAPY | [address] | [address] | | + + + + + X-RAY PORTABLE CHEST 1 VIEW (12/04/2012 3:25 PM PDT) + + + + + + | Component | Value | Ref Range | Performed | Pathologist | | | | | At | Signature | + + + + + + | X-RAY | STUDY: [place] CHEST 1 VIEW | | | | [...] Suarez | | | | | | TIGRE GARCIAuthor: | | | | | | HEIDI [...] [facility] | [address] | [place], [place] | | | THERAPY | [facility] | [address] | | + + + + + LACTATE, POC (12/04/2012 2:46 PM PDT) + + + [...] + | [facility] | [address] | [place], [place] | | | THERAPY | [address] | [address] | | + + + + + IONIZD CA WB, POC RESP (12/04/2012 2:46 PM PDT) [...] [facility] | [address] | [place], [place] | | | THERAPY | [address] | [address] | | + + + + + [...] [facility] | [address] | [place], [place] | | | THERAPY | [address] | [address] | | + + + + + [...] [facility] | [address] | [place], [place] | | | THERAPY | [facility] | [address] | | + + + + + [...] [facility] | [address] | [place], [place] | | | THERAPY | [address] | [address] | | + + + + + [...] | + + + + + | [facility] | [address] | [place] [address] | | | SERVICES, TOI | [address] | | | + + + + + X-RAY PORTABLE CHEST 1 VIEW (12/04/2012 9:58 AM PDT) + + + + + + | Component | Value | Ref Range | Performed | Pathologist | | | | | At | Signature | + + + + + + | X-RAY | EXAM: [place] CHEST 1 VIEW | | | | [...] The | | | | | | [place]-Jeremi catheterhas | | | | | | [...] Suarez | | | | | | TIGRE GARCIAuthor: Vinnie | | | | | | [...] | | | | | zen / TINY Suarez | | | | [...] | | + +---------+ + + | [facility] DEPARTMENT OF | | | | | [...] | + + + + + | [facility] | [address] | [place] [address] | | | SERVICES, CORE | [address] [...] | + + + + + | [facility] | [address] | [place] [address] | | | SERVICES, CORE | [address] | | | + + + + + MAGNESIUM, PLASMA (12/04/2012 8:37 AM PDT) + +---------+ + + + | Component | Value | Ref Range | Performed | Pathologist | | | | | At | Signature | + +---------+ + + + | MAGNESIUM,P | 2.6 (H) | 1.8 - 2.5 mg/dL | [facility] | | | [place] | | | [...] | + + + + + | [facility] | [address] | [place] [address] | | | SERVICES, CORE | CRYSTAL [...] | + + + + + | [facility] | [address] | [place] [address] | | | SERVICES, CORE | CRYSTAL [...] | + + + + + | [facility] | [address] | [place] [address] | | | SERVICES, CORE | [address] [...] | + + + + + | [facility] | [address] | [place] [address] | | | TOI MARIN | CRYSTAL [...] [facility] | [address] | [place] | | | [facility] [facility] | [address] | [address] | | | TESTS | | | | + + + + + TRANSTHORACIC ECHOCARDIOGRAM, ADULT (12/04/2012 12:00 AM PDT) + + + | Narrative | Performed At | + + + | | | | | | + + + + + | Procedure Note | + + | Diana Farley - 12/04/2012 7:51 PM PDT | + [...] + + + | Please click | [facility] DEPT OF | | on view image for the detailed interpretation from Gertrude results. | CARDIOLOGY | + + + + + + + + | Performing | Address | City/State/Zipcode | Phone Number | | Organization | | | | + + + + + | [facility] | [address] | [place], [place] | | | CARDIOLOGY | [address] | [address] | | + + + + + [...] [facility] | [address] | [place], [place] | | | SHAUNNA POINT OF CARE | [facility] | [address] | | | TESTS | | | [...] [facility] | [address] | [place] [address] | | | SERVICES, CORE | [address] [...] | + + + + + | [facility] | [address] | [place] [address] | | | TANIA, TOI | CRYSTAL [...] (H) | 60 - 99 mg/dL | [facility] - | | | GLUCOSE, | [...] GONZALEZ | [address] | [place], [place] | | | SHAUNNA POINT OF CARE | [address] | [address] | | | TESTS | | | [...] | + + + + + | [facility] | [address] | [place] [address] | | | SERVICES, CORE | CRYSTAL [...] | + + + + + | [facility] | [address] | [place] [address] | | | SERVICES, CORE | [address] [...] [facility] | [address] | [place], [place] | | | KAILYN MAZA OF JOHN | [address] | [address] | | | TESTS | | | [...] | + + + + + | [facility] | [address] | [place] [address] | | | TANIA, TOI | CRYSTAL [...] [facility] | [address] | [place] [address] | | | SERVICES, CORE | [address] [...] | + + + + + | [facility] | [address] | [place] [address] | | | SERVICES, CORE | [address] [...] (H) | 0.90 - 1.20 INR | [facility] | | | | | | LABORATORY [...] | + + + + + | [facility] | [address] | [place] [address] | | | TANIA, CORE | [address] | | | + + + + + MAGNESIUM, PLASMA (12/03/2012 4:01 AM PDT) + +-------+ + + + | Component | Value | Ref Range | Performed | Pathologist | | | | | At | Signature | + +-------+ + + + | MAGNESIUM,P | 2.4 | 1.8 - 2.5 mg/dL | [facility] | | | [place] | | | [...] | + + + + + | [facility] | [address] | [place] [address] | | | SERVICES, CORE | CRYSTAL [...] (H) | 60 - 99 mg/dL | [facility] - | | | GLUCOSE, | | [...] GONZALEZ | [address] | [place], [place] | | | KAILYN MAZA OF JOHN | [facility] | [address] | | | TESTS | | | [...] | + + + + + | [facility] | [address] | [place] [address] | | | TANIA, TOI | CRYSTAL [...] MARKATHERINEAM | [address] | [place], [place] | | | KAILYN MAZA OF CARE | [address] | [address] | | | TESTS | | | [...] GONZALEZ | [address] | [place], [place] | | | SHAUNNA POINT OF CARE | [address] | [address] | | | TESTS | | | [...] MARQU[facility] | [address] | [place], [place] | | | KAILYN MAZA OF CARE | [address] | [address] | | | TESTS | | | [...] CARLOS | [address] | [place], [place] | | | [place] [facility] CARE | [address] | [address] | | | TESTS | | | [...] [facility] | [address] | [place] [address] | | | SERVICES, CORE | [address] [...] [facility] | [address] | [place] [address] | | | SERVICES, CORE | [address] [...] | + + + + + | [facility] | [address] | [place] [address] | | | SERVICES, CORE | [address] [...] [facility] | [address] | [place] [address] | | | SERVICES, CORE | [address] [...] | + + + + + | [facility] | [address] | [place] [address] | | | TOI MARIN | [address] [...] [facility] | [address] | [place], [place] | | | KAILYN MAZA OF CARE | [facility] | [address] | | | TESTS | | | [...] (H) | 60 - 99 mg/dL | [facility] - | | | GLUCOSE, | [...] CARLOS | [address] | [place], [place] | | | SHAUNNA POINT OF CARE | [address] | [address] | | | TESTS | | | [...] | + + + + + | [facility] | [address] | [place] [address] | | | SERVICES, CORE | CRYSTAL [...] [facility] | [address] | [place], [place] | | | KAILYN MAZA OF JOHN | [address] | [address] | | | TESTS | | | [...] LUPE[facility] | [address] | [place], [place] | | | KAILYN MAZA OF CARE | [address] | [address] | | | TESTS | | | [...] GONZALEZ | [address] | [place], [place] | | | KAILYN MAZA OF CARE | [address] | [address] | | | TESTS | | | [...] MARQU[facility] | [address] | [place], [place] | | | KAILYN MAZA OF JOHN | [address] | [address] | | | TESTS | | | [...] | + + + + + | [facility] | [address] | [place] [address] | | | TANIA, CORE | [address] [...] | + + + + + | [facility] | [address] | [place] [address] | | | SERVICES, CORE | CRYSTAL [...] CARLOS | [address] | [place], [place] | | | KAILYN MAZA OF JOHN | [address] | [address] | | | TESTS | | | [...] LUPEAM | [address] | [place], [place] | | | KAILYN MAZA OF JOHN | [facility] | [address] | | | TESTS | | | [...] (H) | 60 - 99 mg/dL | [facility] - | | | GLUCOSE, | [...] GONZALEZ | [address] | [place], [place] | | | SHAUNNA POINT OF CARE | [address] | [address] | | | TESTS | | | [...] GONZALEZ | [address] | [place], [place] | | | KAILYN MAZA OF JOHN | [address] | [address] | | | TESTS | | | [...] BRIDGETTE GONZALEZ | [address] | [place], [place] | | | [facility] [facility] | [address] | [address] | | | TESTS | | | [...] | | + +---------+ + + | [facility] DEPARTMENT OF | | | | | [...] MAR[facility] | [address] | [place], [place] | | | KAILYN MAZA OF CARE | [address] | [address] | | | TESTS | | | [...] GONZALEZ | [address] | [place], [place] | | | SHAUNNA POINT OF CARE | [address] | [address] | | | TESTS | | | [...] [facility] | [address] | [place] [address] | | | SERVICES, CORE | [address] [...] [facility] | [address] | [place] [address] | | | SERVICES, CORE | [address] [...] + | [facility] | [address] | [place] [address] | | | SERVICES, CORE | [address] [...] [facility] | [address] | [place] [address] | | | SERVICES, CORE | [address] [...] | + + + + + | [facility] | [address] | [place] [address] | | | SERVICES, CORE | [address] [...] (H) | 60 - 99 mg/dL | [facility] - | | | GLUCOSE, | [...] GONZALEZ | [address] | [place], [place] | | | SHAUNNA POINT OF CARE | [address] | [address] | | | TESTS | | | [...] MARQUAM | [address] | [place], [place] | | | HILL, POINT OF CARE | [address] | [address] | | | TESTS | | | [...] GONZALEZ | [address] | [place], [place] | | | KAILYN MAZA OF JOHN | [address] | [address] | | | TESTS | | | [...] | + + + + + | [facility] | [address] | [place] [address] | | | SERVICES, CORE | PARK [...] + | [facility] | [address] | [place] [address] | | | SERVICES, CORE | [address] [...] | + + + + + | [facility] | [address] | [place] [address] | | | SERVICES, CORE | CRYSTAL [...] (H) | 60 - 99 mg/dL | [facility] - | | | GLUCOSE, | [...] GONZALEZ | [address] | [place], [place] | | | KAILYN MAZA OF CARE | [address] | [address] | | | TESTS | | | [...] MARQUAM | [address] | [place], [place] | | | SHAUNNA POINT OF CARE | [address] | [address] | | | TESTS | | | [...] MARQUAM | [address] | [place], [place] | | | KAILYN MAZA OF JOHN | [address] | [address] | | | TESTS | | | [...] (H) | 60 - 99 mg/dL | [facility] - | | | GLUCOSE, | | [...] GONZALEZ | [address] | [place], [place] | | | KAILYN MAZA OF JOHN | [address] | [address] | | | TESTS | | | [...] MARKATHERINEAM | [address] | [place] | | | SHAUNNA POINT OF CARE | [address] | [address] | | | TESTS | | | [...] MARQUAM | [address] | [place], [place] | | | KAILYN MAZA OF JOHN | [address] | [address] | | | TESTS | | | [...] GONZALEZ | [address] | [place], [place] | | | KAILYN MAZA OF JOHN | [address] | [address] | | | TESTS | | | [...] | + + + + + | [facility] | [address] | [place] [address] | | | SERVICES, CORE | CRYSTAL [...] + | [facility] | [address] | [place] [address] | | | SERVICES, CORE | [address] [...] | + + + + + | [facility] | [address] | [place] [address] | | | SERVICES, CORE | CRYSTAL [...] MARQU[facility] | [address] | [place], [place] | | | KAILYN MAZA OF CARE | [address] | [address] | | | TESTS | | | | + + + + + X-RAY PORTABLE CHEST 1 VIEW (11/30/2012 11:23 AM PST) + + + + + + | Component | Value | Ref Range | Performed | Pathologist | | | | | At | Signature | + + + + + + | X-RAY | STUDY: [place] CHEST 1 VIEW | | | | [...] | | + +---------+ + + | [facility] DEPARTMENT OF | | | | | [...] GONZALEZ | [address] | [place], [place] | | | KAILYN MAZA OF [facility] | [address] | [address] | | | TESTS | | | [...] | SOURCE BODY | Urine | | [facility] - | | | SITE | | | [facility] - | | | | | | [place] | | + + + + + + | CULTURE | C UrineSource: Urine | | [place] - | | | RESULT | | | [facility] - | | | | Final CULTURE | | [place] | | | | RESULT:No growth (<1000 [...] + | [facility] - | [address] | [place] [address] | | | [place] | | | | + + + + + CULTURE, BLOOD BACTI & YEAST [facility] (11/30/2012 8:39 AM PST) + + + [...] Subculture, No | | | | | 2013a [id number]. | growth to date. | | [...] [facility] | [address] | [place] [address] | | | SERVICES, CORE | [address] | | | + + + + + SAGAR TREVINO ONLY (11/30/2012 8:39 AM PST) + + + [...] [facility] | [address] | [place] [address] | | | SERVICES, CORE | [address] [...] | + + + + + | [facility] | [address] | [place] [address] | | | SERVICES, CORE | CRYSTAL [...] | + + + + + | [facility] | [address] | [place] [address] | | | SERVICES, CORE | [address] | | | + + + + + BLOOD CULTURE WORKUP (11/30/2012 8:38 AM PST) + + + + + + | Component | Value | Ref Range | Performed | Pathologist | | | | | At | Signature | + + + + + + | CULTURE | C BRIDGETTE Pos BloodSource: | | [facility] - | | | RESULT | Blood | | AIRPORT - | | | | Final CULTURE | | [place] | | | | RESULT:No growth at [...] + | [facility] - | [address] | [place] [address] | | | [place] | | | | + + + [...] | + + + + + | [facility] | [address] | [place] [address] | | | SERVICES, TOI | CRYSTAL [...] | + + + + + | [facility] | [address] | [place] [address] | | | TANIA, TOI | CRYSTAL [...] (H) | 60 - 99 mg/dL | [facility] - | | | GLUCOSE, | [...] MARQUAM | [address] | [place], [place] | | | KAILYN MAZA OF [facility] | [facility] | [address] | | | TESTS | | | [...] GONZALEZ | [address] | [place], [place] | | | [facility] OF [facility] | [address] | [address] | | | TESTS | | | [...] IJ | | | | | | [place] Jara-Jeremi catheter, | | | | | | [...] | | | | | FUSS 11/30/2012 10:35 AM | | | | [...] MARQU[facility] | [address] | [place], [place] | | | [facility] | [address] | [address] | | | TESTS | | | [...] | + + + + + | [facility] | [address] | [place] [address] | | | SERVICES, CORE | CRYSTAL [...] MARKATHERINEAM | [address] | [place] | | | [facility] | [address] | [address] | | | TESTS | | | [...] | + + + + + | [facility] | [address] | [place] [address] | | | SERVICES, TOI | PARK [...] MARKATHERINEAM | [address] | [place], [place] | | | KAILYN MAZA OF JOHN | [facility] | [address] | | | TESTS | | | [...] (H) | 60 - 99 mg/dL | [facility] - | | | GLUCOSE, | [...] + + | [facility] | [address] | [place], [place] | | | KAILYN MAZA OF [facility] | [address] | [address] | | | TESTS | | | [...] | + + + + + | [facility] | [address] | [place] [address] | | | SERVICES, CORE | PARK [...] | + + + + + | [facility] | [address] | [place] [address] | | | SERVICES, TOI | CRYSTAL [...] [facility] | [address] | [place] [address] | | | SERVICES, CORE | PARK [...] [facility] | [address] | [place] [address] | | | TOI MARIN | CRYSTAL [...] LUPEAM | [address] | [place], [place] | | | KAILYN MAZA [facility] CARE | [address] | [address] | | | TESTS | | | [...] | + + + + + | [facility] | [address] | [place] [address] | | | SERVICES, CORE | [address] | | | + + + + + TRANSTHORACIC ECHOCARDIOGRAM, ADULT (11/30/2012 12:00 AM PST) + + + | Narrative | Performed At | + + + | | | | | | + + + + + | Procedure Note | + + | Other, Faculty - 11/30/2012 12:22 PM PST | + [...] [facility] | [address] | [place] [address] | | | TOI MARIN | CRYSTAL [...] [facility] | [address] | [place] [address] | | | SERVICES, CORE | PARK [...] MARQUAM | [address] | [place], [place] | | | KAILYN MAZA OF JOHN | [address] | [address] | | | TESTS | | | | + + + + + CAPILLARY BLOOD GLUCOSE (NO CHG), POC (11/29/2012 10:47 PM PST) + +---------+ + [...] GONZALEZ | [address] | [place], [place] | | | KAILYN MAZA OF CARE | [address] | [address] | | | TESTS | | | [...] view image for the detailed interpretation from Gertrude results. | CARDIOLOGY | + + + + + + + + | Performing | Address | City/State/Zipcode | Phone Number | | Organization | | | | + + + + + | [facility] | [address] | [place], [place] | | | CARDIOLOGY | [address] | [address] | | + + + + + [...] view image for the detailed interpretation from Gertrude results. | CARDIOLOGY | + + + + + + + + | Performing | Address | City/State/Zipcode | Phone Number | | Organization | | | | + + + + + | [facility] | [address] | [place], [place] | | | CARDIOLOGY | [address] | [address] | | + + + + + [...] | + + + + + | [facility] | [address] | [place] [address] | | | TOI MARIN | CRYSTAL [...] SHAY | | | | | | RUI, MDAuthor: | | | | | | [...] | | | | | RUI 11/30/2012 9:44 AM | | | | [...] GONZALEZ | [address] | [place], [place] | | | KAILYN MAZA OF JOHN | [address] | [address] | | | TESTS | | | [...] [facility] | [address] | [place] [address] | | | SERVICES, CORE | PARK [...] | + + + + + | [facility] | [address] | [place] [address] | | | SERVICES, CORE | CRYSTAL [...] | + + + + + | [facility] | [address] | [place] [address] | | | SERVICES, CORE | CRYSTAL [...] 2.5 mg/dL | [facility] | | | PITA | | | [...] + + | [facility] | [address] | [place] [address] | | | TOI MARIN | PARK [...] | + + + + + | [facility] | [address] | [place] [address] | | | SERVICES, TOI | CRYSTAL [...] mech. valves (2.5 - 3.5) INR | OTI MARIN | + + + + + + + + | Performing | Address | City/State/Zipcode | Phone Number | | Organization | | | | + + + + + | [facility] | [address] | [place] [address] | | | SERVICES, TOI | CRYSTAL [...] [facility] | [address] | [place] [address] | | | TOI MARIN | CRYSTAL [...] [facility] | [address] | [place] [address] | | | SERVICES, CORE | CRYSTAL [...] | + + + + + | [facility] | [address] | [place] [address] | | | TOI MARIN | CRYSTAL [...] | + + + + + | [facility] | [address] | [place] [address] | | | SERVICES, CORE | CRYSTAL [...] (H) | 60 - 99 mg/dL | [facility] - | | | GLUCOSE, | [...] GONZALEZ | [address] | [place], [place] | | | KAILYN MAZA OF CARE | [address] | [address] | | | TESTS | | | [...] [facility] | [address] | [place], [place] | | | SHAUNNA POINT OF CARE | [address] | [address] | | | TESTS | | | [...] - CARLOS | [address] | [place], [place] | | | SHA[facility]NA POINT OF CARE | [address] | [address] | | | TESTS | | | [...] [facility] | [address] | [place] [address] | | | SERVICES, CORE | PARK [...] | + + + + + | [facility] | [address] | [place] [address] | | | SERVICES, | [address] [...] | + + + + + | [facility] | [address] | [place] [address] | | | TOI MARIN | CRYSTAL BENJAMIN | | | + + + [...] | + + + + + | [facility] | [address] | [place] [address] | | | TOI MARIN | CRYSTAL BENJAMIN | | | + + + + + CAPILLARY BLOOD GLUCOSE (NO CHG), POC (11/27/2012 5:55 PM PST) + +---------+ + + + | Component | Value | Ref Range | Performed | Pathologist | | | | | At | Signature | + +---------+ + + + | BLOOD | 103 (H) | 60 - 99 mg/dL | [facility] - | | | GLUCOSE, | [...] [facility] | [address] | [place], [place] | | | KAILYN MAZA OF CARE | [address] | [address] | | | TESTS | | | [...] GONZALEZ | [address] | [place], [place] | | | SHAUNNA POINT OF JOHN | [address] | [address] | | | TESTS | | | [...] SAHU | | | | | | MDAuthor: [...] [facility] | [address] | [place] [address] | | | SERVICES, | [address] [...] + | [facility] | [address] | [place] [address] | | | SERVICES, | [address] [...] | + + + + + | [facility] | [address] | [place] [address] | | | SERVICES, CORE | CRYSTAL [...] + + + + | PRODUCT | [id number] | | [facility] | | | UNIT [...] + + + + | BLOOD | [id number] | | [facility] | | | PRODUCT [...] | + + + + + | [facility] DEPARTMENT OF | [address] | [place] [address] | | | PATHOLOGY | [address] [...] + + + + | PRODUCT | [id number] | | [facility] | | | UNIT [...] + + + + | BLOOD | 85237 | | [facility] | | | PRODUCT [...] DEPARTMENT OF | [address] | [place], [place] [address] | | | PATHOLOGY | [address] [...] 96 | 60 - 99 mg/dL | [facility] - | | | GLUCOSE, | | | [facility] | | | POC | | | [facility] | | | | | | OF [...] - CARLOS | [address] | [place], [place] | | | [place] [facility] | [address] | [address] | | | TESTS | | | [...] [facility] | [address] | [place] [address] | | | TANIA, TOI | PARK [...] | + + + + + | [facility] | [address] | [place] [address] | | | SERVICES, CORE | [address] | | | + + + + + SAGAR TREVINO ONLY (11/27/2012 1:49 AM PST) + + + + + + | Component | Value | Ref Range | Performed | Pathologist | | | | | At | Signature | + + + + + + | COLOR(UR) | Yellow | (none) | [facility] | | | | | | [facility]ORAT[facility] | | | | | | TANIA, | | | | | | TOI | | + + + + + [...] [facility] | [address] | [place] [address] | | | TOI MARIN | CRYSTAL BENJAMIN | | | + + + + + TRANSTHORACIC [facility], ADULT (11/27/2012 12:00 AM PST) + + + | Narrative | Performed At | + + + | | | | | | + + + + + | Procedure Note | + + | Diana Farley - 11/27/2012 1:42 PM PST | + [...] [facility] | [address] | [place], [place] | | | SHA[place]NA [facility]INT OF [facility] | [facility] | [address] | | | TESTS | | | [...] | | + +---------+ + + | [facility] DEPARTMENT OF | | | | | [...] 7.2 | 4.4 - 11.0 K/cu | [facility] | | | | | mm | LABORATORY | | | | | | SERVICES, | | | | | | CORE | | + + + + + + | RED CELL | 4.27 (L) | 4.50 - 5.90 | [facility] | | | COUNT | | M/cu [...] + | [facility] | [address] | [place] [address] | | | SERVICES, CORE | PARK [...] + + | [facility] | [address] | [place] [address] | | | SERVICES, CORE | CRYSTAL [...] | + + + + + | [facility] | [address] | [place] [address] | | | SERVICES, CORE | PARK [...] | + + + + + | [facility] | [address] | [place] [address] | | | SERVICES, CORE | CRYSTAL [...] | + + + + + | [facility] | [address] | [place] [address] | | | [place] | | | | + + + + + ORDERS OTHER (11/26/2012 12:00 AM PST) + + + | Narrative | Performed At | + + + | | | | | | + + + + + | Procedure Note | + + | Other Faculty - 01/15/2013 11:22 AM PDT | + + ORDERS OTHER (11/26/2012 12:00 AM PST) + + + | Narrative | Performed At | + + + | | | | | | + + + + + | Procedure Note | + + | [facility] - 12/27/2012 10:32 AM PDT | + + documented in this encounter Visit Diagnoses + + | Diagnosis | + + | Coronary atherosclerosis of unspecified type of vessel, stony river or graft | + + documented in this encounter Administered Medications + +--------+ +------+------+------+ | Medication Order | MAR | Action | Dose | Rate | Site | | | Action | Date | | | | + +--------+ +------+------+------+ | bacitracin-NS IRRIGATION | Given | 11/30/19 | | | | | INTRAPROCEDURE PRN, Starting Wed | | 13 5:13 | | | | | 11/29/12 at 1713, Until 11/29/12 | | PM PST | | | | | at 2105 | | | | | | + +--------+ +------+------+------+ +---+---+ | | | +---+---+ + +---------+ +--------+---+---+ | Cardiac vein flush (LR 500 | New Bag | 11/30/19 | 500 mL | | | | mL-heparin 800 | | 13 5:15 | | | | | units-nitroGLYCERIN 4 | | PM PST | | | | | mg-verapamil 8 mg-sodium bicarb | | | | | | | 0.3 mEq) INTRAPROCEDURE | | | | | | | CONTINUOUS PRN, Starting Tue | | | | | | | 11/29/12 at 1715, Until Tue11/29/12 | | | | | | | at 2105 | | | | | | + +---------+ +--------+---+---+ +---+---+ | | | +---+---+ + +-------+ +---+---+---+ | heparin 1000 units/mL-NS | Given | 11/30/19 | | | | | injection INTRAPROCEDURE PRN, | | 13 5:16 | | | | | Starting 11/29/12 at 1716, | | PM PST | | | | | Until Tue11/29/12 at 2105 | | | | | | + +-------+ +---+---+---+ +---+---+ | | | +---+---+ + +-------+ +-------+---+---+ | mineral oil liquid | Given | 11/30/19 | 10 mL | | | | INTRAPROCEDURE PRN, Starting Wed | | 13 5:14 | | | | | 11/29/12 at 1714, Until Tue11/29/12 | | PM PST | | | | | at 2105 | | | | | | + +-------+ +-------+---+---+ +---+---+ | | | +---+---+ + +-------+ +---+---+---+ | papaverine-NS injection | Given | 11/30/19 | | | | | INTRAPROCEDURE PRN, Starting Wed | | 13 6:08 | | | | | 11/29/12 at 1808, Until 11/29/12 | | PM PST | | | | | at 2105 | | | | | | + +-------+ +---+---+---+ +---+---+ | | | +---+---+ documented in this encounter
--- OUTSIDE RECORDS SUMMARY | ~2019-09-13 | XMS | Encounter Summary ---
Demographics + + + | Address | [address] | | | [place] [address] | + + + | Home Phone | | + + + | Preferred Language | Unknown | + + + | Marital Status | Single | + + + | Jain Affiliation | CHR | + + + | Race | White | + + + | Ethnic Group | Not or | + + + Author + + + | Author | [facility] | + + + | Organization | [facility] | + + + | Address | Unknown | + + + | Phone | Unavailable | + + + Support + + + + + | Name | Relationship | Address | Phone | + + + + + | Joanne Zhang | [place] | [address] | | | | | [place] | | | | | [address] | | + + + + + | Linh Pate | ECON | Unknown | | + + + + + Care Team Providers + +------+ + | Care Button Buttonhole Marker Name | Role | Phone | + +------+ + | Erick Bernstein DO | PCP | | + +------+ + Encounter Details +--------+ + + + + | Date | Type | Department | Care Team | Description | +--------+ + + + + | 11/27/ | Results | LAB REFERRED TESTS | Other, Faculty | | | 2012 | Only | [address] [facility] [facility] [address] | [phone] | | | | | [address] | | | | | | [place], [place] | | | | | | [address] | | | +--------+ + + + [...] + | EJECTION FRACTION | Routin | 11/27/2012 | | Results for this | | | e | 10:29 AM | | procedure are in the | | | | PST | | results section. | + +--------+ + + + documented in this encounter Results EJECTION FRACTION (11/27/2012 10:29 AM PST) + + + + + + | Component | Value | Ref Range | Performed | Pathologist | | | | | At | Signature | + + + + + + | EJECTION | 40 - 45%Comment: EF | | [facility] | | [...] | | CARDIOLOGY | [address] | [address] | | + + + + + documented in this encounter Visit Diagnoses Not on filedocumented in this encounter"
--- OUTSIDE RECORDS SUMMARY | ~2019-09-13 | XMS | Encounter Summary ---
Demographics + + + | Address | [address] | | | [place] [address] | + + + | Home Phone | | + + + | Preferred Language | Unknown | + + + | Marital Status | Single | + + + | Christianity Affiliation | CHR | + + + | Race | White | + + + | Ethnic Group | Not or | + + + Author + + + | Author | [facility] | + + + | Organization | [facility] | + + + | Address | Unknown | + + + | Phone | Unavailable | + + + Support + + + + + | Name | Relationship | Address | Phone | + + + + + | Joanne Zhang | [place] | [address] | | | | | [place] | | | | | [address] | | + + + + + | Linh Pate | ECON | Unknown | | + + + + + Care Team Providers + +------+ + | Care Outside Sales Account Executive Name | Role | Phone | + +------+ + | Erick Bernstein DO | PCP | | + +------+ + Reason for Visit +--------+ + | Reason | Comments | +--------+ + | [facility] | [facility] | +--------+ + Encounter Details +--------+ + + + + | Date | Type | Department | Care Team | Description | +--------+ + + + + | 10/17/ | Telephone | Cardiology [facility] at | Michael Colon, | Other ([place] with | | 2012 | | [facility] [address] | [address] | [address] | | | | Ave Mailcode: [address] | [place], [place] | Cardiac) | | | | [facility] | [address] | | | | | and [place], | [phone] | | | | | [facility] | | | | | | [place], [place] | | | | | | [address] | | | | | | [phone] | | | +--------+ + + + [...]
--- OUTSIDE RECORDS SUMMARY | ~2019-09-13 | XMS | Encounter Summary ---
Demographics + + + | Address | [address] | | | [place] [address] | + + + | Home Phone | | + + + | Preferred Language | Unknown | + + + | Marital Status | Single | + + + | Zoroastrian Affiliation | CHR | + + + | Race | White | + + + | Ethnic Group | Not or | + + + Author + + + | Author | [facility] | + + + | Organization | [facility] | + + + | Address | Unknown | + + + | Phone | Unavailable | + + + Support + + + + + | Name | Relationship | Address | Phone | + + + + + | Joanne Zhang | [place] | [address] | | | | | [place] | | | | | [address] | | + + + + + | Linh Pate | ECON | Unknown | | + + + + + Care Team Providers + +------+ + | Care Hamper Maker Name | Role | Phone | + +------+ + | Erick Bernstein DO | PCP | | + +------+ + Reason for Visit Diagnostic Testing (Routine) +--------+--------+ + + + + | Status | Reason | Specialty | Diagnoses / | Referred By | Referred To | | | | | Procedures | Contact | Contact | +--------+--------+ + + + + | Closed | | Cardiology | Diagnoses | Isaiah, | Car Echo | | | | | Arrhythmia | Michael Agudelo MD | [address] | | | | | CAD | [address] | | | | | (coronary | [address] | Mailcode: | | | | | artery | [place], [place] | [id number] | | | | | disease) LV | [address] | [facility] | | | | | (left | Phone: | Building | | | | | ventricular) | [phone] | [place], [place] | | | | | mural | Fax: | [address] | | | | | thrombus | [phone] | Phone: | | | | | Procedures | | [phone] | | | | | TRANSTHORACI | [...] + + + + | 11/14/ | Hospital | Cardiac | | | | 2012 | Encounter | Non-Invasive Testing | | | | | | at [facility] [address] | | | | | [address] Mailcode: | | | | | | [facility] | | | | | [facility], | | | | | | [address] | | | | | | [place], [place] | | | | | | [address] | | | | | | [phone] | | | +--------+ + + + [...] | | | 13 | | | release(/EC) | | | | | | + [...] + documented as of this encounter Progress Elba Villagran - 11/14/2012 1:22 PM PSTTransthoracic echocardiogram completed. Final report to follow. documented in this encounter Plan of Treatment Not on filedocumented as of this encounter Visit Diagnoses Not on filedocumented in this encounter Administered Medications + +---------+ +------+--------+------+ | Medication Order | MAR | Action | Dose | Rate | Site | | | Action | Date | | | | + +---------+ +------+--------+------+ | perflutren protein-A | New Bag | 11/14/19 | 3 mL | mL/hr | | | microspheres (aka OPTISON) | | 13 1:00 | | | | | injection 3 mL 3 mL, | | PM PST | | | | | intravenous, PROCEDURE ONCE, 1 | | | | | | | dose, 11/14/12 at 1330 | | | | | | + +---------+ +------+--------+------+ +---+---+ | | | +---+---+ documented in this encounter"
--- OUTSIDE RECORDS SUMMARY | ~2019-09-13 | XMS | Encounter Summary ---
Demographics + + + | Address | [address] | | | [place] [address] | + + + | Home Phone | | + + + | Preferred Language | Unknown | + + + | Marital Status | Single | + + + | Shinto Affiliation | CHR | + + + | Race | White | + + + | Ethnic Group | Not or | + + + Author + + + | Author | [facility] | + + + | Organization | [facility] | + + + | Address | Unknown | + + + | Phone | Unavailable | + + + Support + + + + + | Name | Relationship | Address | Phone | + + + + + | Joanne Zhang | [place] | [address] | | | | | [place] | | | | | [address] | | + + + + + | Linh Pate | ECON | Unknown | | + + + + + Care Team Providers + +------+ + | Care Wood Heel Cementer Name | Role | Phone | + [...] | +--------+ + + + + | 11/29/ | Anesthesia | 6A Intra Op 3181 | Yoselyn Martin MD | | | 2012 | Event | [address] | [address] | | | | | [facility] | [facility] | | | | | Hospital Admitting | [place] [address] | | | | | Desk Located on the | [phone] | | | | | 9th floor | | | | | | [place], [place] | [place]ays[place] Pedraza [place] | | | | | [address] | [address] | | | | | | [place] | | | | | | [place] [address] | | | | | | [phone] | | | | | | | | +--------+ + + + + Anesthesia Record + + + + + | Procedure Name | Responsible | Anesthesia Start | Anesthesia Stop Time | | | Anesthesiologist | Time | | + + + + + | CORONARY ARTERY | Yoselyn Martin MD | 11/29/12 1524 | 11/29/12 2121 | | BYPASS GRAFTING X 3 | | | | | (N/A ) | | | | + + + + + +----+---+ + + | Da | T | Event | Comment | | te | i | | | | | m | | | | | e | | | +----+---+ + + | 03 | 1 | Eq Check | Anesthesia machine checked Equipment verified | | /0 | 5 | | | | 6/ | 1 | | | | 20 | 7 | | | | 13 | | | | +----+---+ + + | | 1 | Pt. Check | Prior to anesthesia start, pt. Identified, examined, chart | | | 5 | | reviewed, PARQ held, anesthetic plan made or approved by | | | 1 | | attending anesthesiologist. NPO status confirmed as appropriate | | | 8 | | for procedure Preoperative evaluation: unchanged | +----+---+ + + | | 1 | | | | | 5 | | | | | 2 | | | | | 4 | | | +----+---+ + + | | 1 | An Start | | | | 5 | | | | | 2 | | | | | 4 | | | +----+---+ + + | | 1 | An Start | | | | 5 | Data | | | | 2 | | | | | 9 | | | +----+---+ + + | | 1 | Art Line | | | | 5 | | | | | 5 | | | | | 2 | | | +----+---+ + + | | 1 | Std. Airway | | | | 5 | Mgt. | | | | 5 | | | | | 6 | | | +----+---+ + + | | 1 | Central | | | | 6 | venous line | | | | 2 | | | | | 5 | | | +----+---+ + + | | 1 | MADHURI Probe | | | | 6 | Inserted | | | | 2 | | | | | 9 | | | +----+---+ + + | | 1 | Ready | | | | 6 | | | | | 2 | | | | | 9 | | | +----+---+ + + | | 1 | Abx | | | | 6 | Administere | | | | 3 | d | | | | 2 | | | +----+---+ + + | | 1 | Timeout | | | | 6 | | | | | 4 | | | | | 2 | | | +----+---+ + + | | 1 | Incision | | | | 6 | | | | | 4 | | | | | 5 | | | +----+---+ + + | | 1 | An CV | | | | 8 | Bypass init | | | | 3 | | | | | 4 | | | +----+---+ + + | | 1 | Aortic | | | | 8 | Clamp On | | | | 3 | | | | | 8 | | | +----+---+ + + | | 1 | Aortic | | | | 9 | Clamp Off | | | | 4 | | | | | 4 | | | +----+---+ + + | | 2 | An CV | | | | 0 | Bypass | | | | 0 | Ended | | | | 1 | | | +----+---+ + + | | 2 | MADHURI PROBE | | | | 0 | REMOVED | | | | 4 | | | | | 4 | | | +----+---+ + + | | 2 | Surgery end | | | | 0 | | | | | 4 | | | | | 7 | | | +----+---+ + + | | 2 | an stop | Pt transferred to [facility] intubated and sedated. Monitoring with | | | 1 | data | 5 lead EKG, SpO2, arterial BP, and ventilation with Miguel Robles. | | | 0 | | | | | 2 | | | +----+---+ + + | | 2 | Quick Note | Transfer to ICU complete. Report given to ICU team. | | | 1 | | | | | 2 | | | | | 1 | | | +----+---+ + + | | 2 | Anesthesia | | | | 1 | End | | | | 2 | | | | | 1 | | | +----+---+ + + +------+ | Meds | +------+ + + + | Name | Total | + + + | midazolam | 5 mg | + + + | fentaNYL | 1,500 mcg | + + + | rocuronium | 150 mg | + + + | aminocaproic acid INF (250 mg/mL) | 14,586 mg | + + + | heparin | 47,000 Units | + + + | cefUROXime | 1,503 mg | + + + | ePHEDrine | 7.5 mg | + + + | norepinephrine INF (8mg/250mL) | 76.3 mcg | + + + | EPINEPHrine INF (5mg/250mL) | 290.22 mcg | + + + | protamine | 380 mg | + + + | nitroGLYCERIN INF (50mg/250mL) | 89.76 mcg | + + + | propofol INF | 314,160 mcg | + + + | LR | 600 mL | + + + | LR | 271 mL | + + + | NS | 400 mL | + + + | NS | 300 mL | + + + + + [...] +--------+ + + + | RETIRE | 11/27/12; 2141; 12/01/12; 818; | 11/27/122141 by | 12/01/12818 by | | D - | No; 22; Right; Hand; None; No; | Leatha Cabral RN | Esperanza Roy RN | | Periph | Positive | | | | eral | | | | | Line | | | | +--------+ + + + | RETIRE | 11/29/12; (OR); 12/01/12; 1236 | 11/29/12 0000 by | 12/01/12 1236 by | | D - | | Bridgette Zuniga, | Esperanza Roy RN | | SARANYA | | RN | | | Marieet | | | | | er | | | | +--------+ + + + | RETIRE | 11/29/12; (OR); 12/02/12; 1205 | 11/29/12 0000 by | 12/02/12 120 by | | D - | (By Dr. Carr ); Epicardial | Bridgette Zuniga, | Matthew Rubio RN | | Central Processing Tech | | RN | | | al | | | | | Pacema | | | | | ker | | | | +--------+ + + + | RETIRE | 11/29/12; 11/30/12; 5; Oral; | 11/29/12 0000 by | 11/30/12224 by | | D - | OG | Bridgette Zuniga, | Bridgette Zuniga, | | Gastri | | RN | RN | | c/Feed | | | | | ing | | | | | Tube | | | | +--------+ + + + | RETIRE | 11/29/12; 1517; 11/30/12; 0225 | 11/29/12 1517 by | 11/30/12 0225 by | | D - | | Raysa Pedraza MD | Bridgette Zuniga, | | ETT/Or | | | RN | | al | | | | | Airway | | | | +--------+ + + + | RETIRE | 11/29/12; 1552; 12/01/12; 1236; | 11/29/12 1552 by | 12/01/12 1236 by | | D - | No; Right radial arterial line; | Raysa Pedraza MD | Esperanza Roy RN | | Arteri | 20g; radial, right | | | | al | | | | | Line | | | | +--------+ + + + | RETIRE | 11/29/12; 1600 (placed by G. | 11/29/12 1600 by | 11/30/12 2100 by | | D - | Jimmy BRUNER); 11/30/12; 2100; | Palomo Marquez RN | Shawna Dennison RN | | Edilsonr | Mariama; 16FR | | | | y Cath | [...] + + + | RETIRE | 11/29/12; 1600; 12/01/12; 0940; | 11/29/12 1600 by | 12/01/12 0940 by | | D - | 16; Left; Wrist; Occluded | Raysa Pedraza MD | Esperanza Roy RN | | Periph | | | | | eral | | | | | Line | | | | +--------+ + + + | RETIRE | 11/29/12; 1625; Introducer; | 11/29/12 1625 by | 12/02/12 1615 by | | D - | 12/02/12; 1615; Right; Neck; | Raysa Pedraza MD | Matthew Rubio RN | | Centra | Jugular | | | | l Line | | | | +--------+ + + + | RETIRE | 11/29/12; 1625; Double Lumen; | 11/29/12 1625 by | 12/02/12 1630 by | | D - | 12/02/12; 1630; Right; Neck; | Raysa Pedraza MD | Matthew Rubio RN | | Centra | Jugular | | | | l Line | | | | +--------+ + + + | RETIRE | 11/29/12; 1948; 12/03/12; 1230; | 11/29/121948 by | 12/03/12 123 by | | D - | 19 Fr.; Som; Lower, Left; Chest | Palomo Marquez RN | Dedrick Jade, | | Drains | | | RN | | | | | | | (wound | | | | | s/surg | | | | | ical) | | | | +--------+ + + + | RETIRE | 11/29/12; 1948; 12/01/12; 939; | 11/29/121948 by | 12/01/12939 by | | D - | right; 19 Fr.; Som; Lower, | Palomo Marquez RN | Esperanza Roy RN | | Drains | Right; Chest | | | | | | | | | (wound | | | | | s/surg | | | | | ical) | | | | +--------+ + + + | RETIRE | 11/29/12; 2101; chest; medial; | 11/29/122101 by | 07/14/171621 by | | D - | chest; [...] Results ARTERIAL BLOOD GAS, POC IP ONLY (11/29/2012 7:36 PM PST) + +-------+ + + + [...] + + + | BASE EXCESS | -3.1 | | | | | ART, POC | | | | | + +-------+ + + + | PO2 | 271 | | | | | ARTERIAL, | | | | | | POC | | | | | + +-------+ + + + | PCO2 | 34 | | | | | ARTERIAL, | | | | | | POC | | | | | + +-------+ + + + ICA CALCULATED, POC IP ONLY (11/29/2012 7:36 PM PST) + + + + + + | Component | Value | Ref Range | Performed | Pathologist | | | | | At | Signature | + + + + + + | HEMATOCRIT | | 1.12 - 1.28 % | | | | POC | | | | | + + + + + + | IONIZED | 0.95 (A) | 1.12 - 1.28 | | | | CALCIUM | | mmol/L | | | | CALC, POC | | | | | + + + + + + LACTATE, POC IP ONLY (11/29/2012 7:36 PM PST) + +-------+ + + + | Component | Value | Ref Range | Performed | Pathologist | | | | | At | Signature | + +-------+ + + + | LACTATE POC | 1.5 | mmol/L | | | + +-------+ + + + HEMATOCRIT (11/29/2012 7:36 PM PST) + +-------+ + + + | Component | Value | Ref Range | Performed | Pathologist | | | | | At | Signature | + +-------+ + + + | HEMATOCRIT, | 35 | | | | | POC | | | | | + +-------+ + + + + + | Specimen | + + | Blood - Blood | + + PH, BODY FLUID (11/29/2012 7:36 PM PST) + +-------+ + + + | Component | Value | Ref Range | Performed | Pathologist | | | | | At | Signature | + +-------+ + + + | PH | 7.40 | | | | | ARTERIAL, | | | | | | POC | | | | | + +-------+ + + + + + | Specimen | + + | Fluid | + + CO2, TOTAL, PLASMA (11/29/2012 7:36 PM PST) + +-------+ + + + | Component | Value | Ref Range | Performed | Pathologist | | | | | At | Signature | + +-------+ + + + | HCO3 | 21.1 | | | | | ARTERIAL, | | | | | | POC | | | | | + +-------+ + + + + + | Specimen | + + | Blood - Blood | + + SODIUM (ART), POC SOR (11/29/2012 7:36 PM PST) + +-------+ + + + | Component | Value | Ref Range | Performed | Pathologist | | | | | At | Signature | + +-------+ + + + | SODIUM, POC | 132 | | | | + +-------+ + + + POTASSIUM (ART), POC SOR (11/29/2012 7:36 PM PST) + +-------+ + + + | Component | Value | Ref Range | Performed | Pathologist | | | | | At | Signature | + +-------+ + + + | POTASSIUM, | 6.9 | | | | | POC | | | | | + +-------+ + + + GLUCOSE (ART), POC SOR (11/29/2012 7:36 PM PST) + +-------+ + + + | Component | Value | Ref Range | Performed | Pathologist | | | | | At | Signature | + +-------+ + + + | GLUCOSE, | 143 | | | | | POC | | | | | + +-------+ + + + CHLORIDE (ART), POC SOR (11/29/2012 7:36 PM PST) + +-------+ + + + | Component | Value | Ref Range | Performed | Pathologist | | | | | At | Signature | + +-------+ + + + | CHLORIDE, | 106 | | | | | POC | | | | | + +-------+ + + + ARTERIAL BLOOD GAS, POC IP ONLY (11/29/2012 7:21 PM PST) + +-------+ + + + [...] + + + | BASE EXCESS | -0.4 | | | | | ART, POC | | | | | + +-------+ + + + | PO2 | 260 | | | | | ARTERIAL, | | | | | | POC | | | | | + +-------+ + + + | PCO2 | 38 | | | | | ARTERIAL, | | | | | | POC | | | | | + +-------+ + + + ICA CALCULATED, POC IP ONLY (11/29/2012 7:21 PM PST) + + + + + + | Component | Value | Ref Range | Performed | Pathologist | | | | | At | Signature | + + + + + + | HEMATOCRIT | | 1.12 - 1.28 % | | | | POC | | | | | + + + + + + | IONIZED | 1.00 (A) | 1.12 - 1.28 | | | | CALCIUM | | mmol/L | | | | CALC, POC | | | | | + + + + + + LACTATE, POC IP ONLY (11/29/2012 7:21 PM PST) + +-------+ + + + | Component | Value | Ref Range | Performed | Pathologist | | | | | At | Signature | + +-------+ + + + | LACTATE POC | 1.4 | mmol/L | | | + +-------+ + + + HEMATOCRIT (11/29/2012 7:21 PM PST) + +-------+ + + + | Component | Value | Ref Range | Performed | Pathologist | | | | | At | Signature | + +-------+ + + + | HEMATOCRIT, | 37 | | | | | POC | | | | | + +-------+ + + + + + | Specimen | + + | Blood - Blood | + + PH, BODY FLUID (11/29/2012 7:21 PM PST) + +-------+ + + + | Component | Value | Ref Range | Performed | Pathologist | | | | | At | Signature | + +-------+ + + + | PH | 7.41 | | | | | ARTERIAL, | | | | | | POC | | | | | + +-------+ + + + + + | Specimen | + + | Fluid | + + CO2, TOTAL, PLASMA (11/29/2012 7:21 PM PST) + +-------+ + + + | Component | Value | Ref Range | Performed | Pathologist | | | | | At | Signature | + +-------+ + + + | HCO3 | 24.1 | | | | | ARTERIAL, | | | | | | POC | | | | | + +-------+ + + + + + | Specimen | + + | Blood - Blood | + + SODIUM (ART), POC SOR (11/29/2012 7:21 PM PST) + +-------+ + + + | Component | Value | Ref Range | Performed | Pathologist | | | | | At | Signature | + +-------+ + + + | SODIUM, POC | 131 | | | | + +-------+ + + + POTASSIUM (ART), POC SOR (11/29/2012 7:21 PM PST) + +-------+ + + + | Component | Value | Ref Range | Performed | Pathologist | | | | | At | Signature | + +-------+ + + + | POTASSIUM, | 7.1 | | | | | POC | | | | | + +-------+ + + + GLUCOSE (ART), POC SOR (11/29/2012 7:21 PM PST) + +-------+ + + + | Component | Value | Ref Range | Performed | Pathologist | | | | | At | Signature | + +-------+ + + + | GLUCOSE, | 142 | | | | | POC | | | | | + +-------+ + + + CHLORIDE (ART), POC SOR (11/29/2012 7:21 PM PST) + +-------+ + + + | Component | Value | Ref Range | Performed | Pathologist | | | | | At | Signature | + +-------+ + + + | CHLORIDE, | 103 | | | | | POC | | | | | + +-------+ + + + ARTERIAL BLOOD GAS, POC IP ONLY (11/29/2012 7:01 PM PST) + +-------+ + + + [...] + + + | BASE EXCESS | -2.5 | | | | | ART, POC | | | | | + +-------+ + + + | PO2 | 231 | | | | | ARTERIAL, | | | | | | POC | | | | | + +-------+ + + + | PCO2 | 39 | | | | | ARTERIAL, | | | | | | POC | | | | | + +-------+ + + + ICA CALCULATED, POC IP ONLY (11/29/2012 7:01 PM PST) + + + + + + | Component | Value | Ref Range | Performed | Pathologist | | | | | At | Signature | + + + + + + | HEMATOCRIT | | 1.12 - 1.28 % | | | | POC | | | | | + + + + + + | IONIZED | 1.01 (A) | 1.12 - 1.28 | | | | CALCIUM | | mmol/L | | | | CALC, POC | | | | | + + + + + + LACTATE, POC IP ONLY (11/29/2012 7:01 PM PST) + +-------+ + + + | Component | Value | Ref Range | Performed | Pathologist | | | | | At | Signature | + +-------+ + + + | LACTATE POC | 1.3 | mmol/L | | | + +-------+ + + + HEMATOCRIT (11/29/2012 7:01 PM PST) + +-------+ + + + | Component | Value | Ref Range | Performed | Pathologist | | | | | At | Signature | + +-------+ + + + | HEMATOCRIT, | 37 | | | | | POC | | | | | + +-------+ + + + + + | Specimen | + + | Blood - Blood | + + PH, BODY FLUID (11/29/2012 7:01 PM PST) + +-------+ + + + | Component | Value | Ref Range | Performed | Pathologist | | | | | At | Signature | + +-------+ + + + | PH | 7.37 | | | | | ARTERIAL, | | | | | | POC | | | | | + +-------+ + + + + + | Specimen | + + | Fluid | + + CO2, TOTAL, PLASMA (11/29/2012 7:01 PM PST) + +-------+ + + + | Component | Value | Ref Range | Performed | Pathologist | | | | | At | Signature | + +-------+ + + + | HCO3 | 22.5 | | | | | ARTERIAL, | | | | | | POC | | | | | + +-------+ + + + + + | Specimen | + + | Blood - Blood | + + SODIUM (ART), POC SOR (11/29/2012 7:01 PM PST) + +-------+ + + + | Component | Value | Ref Range | Performed | Pathologist | | | | | At | Signature | + +-------+ + + + | SODIUM, POC | 130 | | | | + +-------+ + + + POTASSIUM (ART), POC SOR (11/29/2012 7:01 PM PST) + +-------+ + + + | Component | Value | Ref Range | Performed | Pathologist | | | | | At | Signature | + +-------+ + + + | POTASSIUM, | 7.1 | | | | | POC | | | | | + +-------+ + + + GLUCOSE (ART), POC SOR (11/29/2012 7:01 PM PST) + +-------+ + + + | Component | Value | Ref Range | Performed | Pathologist | | | | | At | Signature | + +-------+ + + + | GLUCOSE, | 132 | | | | | POC | | | | | + +-------+ + + + CHLORIDE (ART), POC SOR (11/29/2012 7:01 PM PST) + +-------+ + + + | Component | Value | Ref Range | Performed | Pathologist | | | | | At | Signature | + +-------+ + + + | CHLORIDE, | 103 | | | | | POC | | | | | + +-------+ + + + ARTERIAL BLOOD GAS, POC IP ONLY (11/29/2012 6:44 PM PST) + +-------+ + + + [...] + + + | BASE EXCESS | -1.7 | | | | | ART, POC | | | | | + +-------+ + + + | PO2 | 316 | | | | | ARTERIAL, | | | | | | POC | | | | | + +-------+ + + + | PCO2 | 42 | | | | | ARTERIAL, | | | | | | POC | | | | | + +-------+ + + + ICA CALCULATED, POC IP ONLY (11/29/2012 6:44 PM PST) + + + + + + | Component | Value | Ref Range | Performed | Pathologist | | | | | At | Signature | + + + + + + | HEMATOCRIT | | 1.12 - 1.28 % | | | | POC | | | | | + + + + + + | IONIZED | 1.00 (A) | 1.12 - 1.28 | | | | CALCIUM | | mmol/L | | | | CALC, POC | | | | | + + + + + + LACTATE, POC IP ONLY (11/29/2012 6:44 PM PST) + +-------+ + + + | Component | Value | Ref Range | Performed | Pathologist | | | | | At | Signature | + +-------+ + + + | LACTATE POC | 1.1 | mmol/L | | | + +-------+ + + + HEMATOCRIT (11/29/2012 6:44 PM PST) + +-------+ + + + | Component | Value | Ref Range | Performed | Pathologist | | | | | At | Signature | + +-------+ + + + | HEMATOCRIT, | 36 | | | | | POC | | | | | + +-------+ + + + + + | Specimen | + + | Blood - Blood | + + PH, BODY FLUID (11/29/2012 6:44 PM PST) + +-------+ + + + | Component | Value | Ref Range | Performed | Pathologist | | | | | At | Signature | + +-------+ + + + | PH | 7.36 | | | | | ARTERIAL, | | | | | | POC | | | | | + +-------+ + + + + + | Specimen | + + | Fluid | + + CO2, TOTAL, PLASMA (11/29/2012 6:44 PM PST) + +-------+ + + + | Component | Value | Ref Range | Performed | Pathologist | | | | | At | Signature | + +-------+ + + + | HCO3 | 23.7 | | | | | ARTERIAL, | | | | | | POC | | | | | + +-------+ + + + + + | Specimen | + + | Blood - Blood | + + SODIUM (ART) POC SOR (11/29/2012 6:44 PM PST) + +-------+ + + + | Component | Value | Ref Range | Performed | Pathologist | | | | | At | Signature | + +-------+ + + + | SODIUM, POC | 130 | | | | + +-------+ + + + POTASSIUM (ART), POC SOR (11/29/2012 6:44 PM PST) + +-------+ + + + | Component | Value | Ref Range | Performed | Pathologist | | | | | At | Signature | + +-------+ + + + | POTASSIUM, | 6.9 | | | | | POC | | | | | + +-------+ + + + GLUCOSE (ART), POC SOR (11/29/2012 6:44 PM PST) + +-------+ + + + | Component | Value | Ref Range | Performed | Pathologist | | | | | At | Signature | + +-------+ + + + | GLUCOSE, | 121 | | | | | POC | | | | | + +-------+ + + + CHLORIDE (ART), POC SOR (11/29/2012 6:44 PM PST) + +-------+ + + + | Component | Value | Ref Range | Performed | Pathologist | | | | | At | Signature | + +-------+ + + + | CHLORIDE, | 101 | | | | | POC | | | | | + +-------+ + + + ARTERIAL BLOOD GAS, POC IP ONLY (11/29/2012 5:50 PM PST) + +-------+ + + + [...] + + + | BASE EXCESS | -2 | | | | | ART, POC | | | | | + +-------+ + + + | PO2 | 348 | | | | | ARTERIAL, | | | | | | POC | | | | | + +-------+ + + + | PCO2 | 46 | | | | | ARTERIAL, | | | | | | POC | | | | | + +-------+ + + + ICA CALCULATED, POC IP ONLY (11/29/2012 5:50 PM PST) + +-------+ + + + | Component | Value | Ref Range | Performed | Pathologist | | | | | At | Signature | + +-------+ + + + | HEMATOCRIT | | 1.12 - 1.28 % | | | | POC | | | | | + +-------+ + + + | IONIZED | 1.13 | 1.12 - 1.28 | | | | CALCIUM | | mmol/L | | | | CALC, POC | | | | | + +-------+ + + + LACTATE, POC IP ONLY (11/29/2012 5:50 PM PST) + +-------+ + + + | Component | Value | Ref Range | Performed | Pathologist | | | | | At | Signature | + +-------+ + + + | LACTATE POC | 0.8 | mmol/L | | | + +-------+ + + + HEMATOCRIT (11/29/2012 5:50 PM PST) + +-------+ + + + | Component | Value | Ref Range | Performed | Pathologist | | | | | At | Signature | + +-------+ + + + | HEMATOCRIT, | 44 | | | | | POC | | | | | + +-------+ + + + + + | Specimen | + + | Blood - Blood | + + PH, BODY FLUID (11/29/2012 5:50 PM PST) + +-------+ + + + | Component | Value | Ref Range | Performed | Pathologist | | | | | At | Signature | + +-------+ + + + | PH | 7.33 | | | | | ARTERIAL, | | | | | | POC | | | | | + +-------+ + + + + + | Specimen | + + | Fluid | + + CO2, TOTAL, PLASMA (11/29/2012 5:50 PM PST) + +-------+ + + + | Component | Value | Ref Range | Performed | Pathologist | | | | | At | Signature | + +-------+ + + + | HCO3 | 24.3 | | | | | ARTERIAL, | | | | | | POC | | | | | + +-------+ + + + + + | Specimen | + + | Blood - Blood | + + SODIUM (ART), POC SOR (11/29/2012 5:50 PM PST) + +-------+ + + + | Component | Value | Ref Range | Performed | Pathologist | | | | | At | Signature | + +-------+ + + + | SODIUM, POC | 136 | | | | + +-------+ + + + POTASSIUM (ART), POC SOR (11/29/2012 5:50 PM PST) + +-------+ + + + | Component | Value | Ref Range | Performed | Pathologist | | | | | At | Signature | + +-------+ + + + | POTASSIUM, | 5.3. | | | | | POC | | | | | + +-------+ + + + GLUCOSE (ART), POC SOR (11/29/2012 5:50 PM PST) + +-------+ + + + | Component | Value | Ref Range | Performed | Pathologist | | | | | At | Signature | + +-------+ + + + | GLUCOSE, | 109 | | | | | POC | | | | | + +-------+ + + + CHLORIDE (ART), POC SOR (11/29/2012 5:50 PM PST) + +-------+ + + + | Component | Value | Ref Range | Performed | Pathologist | | | | | At | Signature | + +-------+ + + + | CHLORIDE, | 106 | | | | | POC | | | | | + +-------+ + + + ARTERIAL BLOOD GAS, POC IP ONLY (11/29/2012 4:29 PM PST) + +-------+ + + + [...] + + + | BASE EXCESS | -1.1 | | | | | ART, POC | | | | | + +-------+ + + + | PO2 | 341 | | | | | ARTERIAL, | | | | | | POC | | | | | + +-------+ + + + | PCO2 | 42 | | | | | ARTERIAL, | | | | | | POC | | | | | + +-------+ + + + ICA CALCULATED, POC IP ONLY (11/29/2012 4:29 PM PST) + +-------+ + + + | Component | Value | Ref Range | Performed | Pathologist | | | | | At | Signature | + +-------+ + + + | HEMATOCRIT | | 1.12 - 1.28 % | | | | POC | | | | | + +-------+ + + + | IONIZED | 1.14 | 1.12 - 1.28 | | | | CALCIUM | | mmol/L | | | | CALC, POC | | | | | + +-------+ + + + LACTATE, POC IP ONLY (11/29/2012 4:29 PM PST) + +-------+ + + + | Component | Value | Ref Range | Performed | Pathologist | | | | | At | Signature | + +-------+ + + + | LACTATE POC | 0.9 | mmol/L | | | + +-------+ + + + ACT, POC IP ONLY (11/29/2012 4:29 PM PST) + +---------+ + + + | Component | Value | Ref Range | Performed | Pathologist | | | | | At | Signature | + +---------+ + + + | ACT, POC | 153 (A) | 90 - 150 | | | | | | Seconds | | | + +---------+ + + + HEMATOCRIT (11/29/2012 4:29 PM PST) + +-------+ + + + | Component | Value | Ref Range | Performed | Pathologist | | | | | At | Signature | + +-------+ + + + | HEMATOCRIT, | 45 | | | | | POC | | | | | + +-------+ + + + + + | Specimen | + + | Blood - Blood | + + PH, BODY FLUID (11/29/2012 4:29 PM PST) + +-------+ + + + | Component | Value | Ref Range | Performed | Pathologist | | | | | At | Signature | + +-------+ + + + | PH | 7.37 | | | | | ARTERIAL, | | | | | | POC | | | | | + +-------+ + + + + + | Specimen | + + | Fluid | + + CO2, TOTAL, PLASMA (11/29/2012 4:29 PM PST) + +-------+ + + + | Component | Value | Ref Range | Performed | Pathologist | | | | | At | Signature | + +-------+ + + + | HCO3 | 24.3 | | | | | ARTERIAL, | | | | | | POC | | | | | + +-------+ + + + + + | Specimen | + + | Blood - Blood | + + SODIUM (ART), POC SOR (11/29/2012 4:29 PM PST) + +-------+ + + + | Component | Value | Ref Range | Performed | Pathologist | | | | | At | Signature | + +-------+ + + + | SODIUM, POC | 136 | | | | + +-------+ + + + POTASSIUM (ART), POC SOR (11/29/2012 4:29 PM PST) + +-------+ + + + | Component | Value | Ref Range | Performed | Pathologist | | | | | At | Signature | + +-------+ + + + | POTASSIUM, | 4.8 | | | | | POC | | | | | + +-------+ + + + GLUCOSE (ART), POC SOR (11/29/2012 4:29 PM PST) + +-------+ + + + | Component | Value | Ref Range | Performed | Pathologist | | | | | At | Signature | + +-------+ + + + | GLUCOSE, | 107 | | | | | POC | | | | | + +-------+ + + + CHLORIDE (ART)GERMAN (11/29/2012 4:29 PM PST) + +-------+ + + + | Component | Value | Ref Range | Performed | Pathologist | | | | | At | Signature | + +-------+ + + + | CHLORIDE, | 105 | | | | | POC | | | | | + +-------+ + + + documented in this encounter Visit Diagnoses Not on filedocumented in this encounter Administered Medications + +---------+ + +--------+------+ | Medication Order | MAR | Action | Dose | Rate | Site | | | Action | Date | | | | + +---------+ + +--------+------+ | aminocaproic acid INF | New Bag | 11/30/19 | 30 | 17.95 | | | intravenous, INTRAPROCEDURE | | 13 4:48 | mg/kg/hr | mL/hr | | | CONTINUOUS PRN, Starting Wed | | PM PST | | | | | 11/29/12 at 1648, Until 11/29/12 | | | | | | | at 2102 | | | | | | + +---------+ + +--------+------+ +---+---+ | | | +---+---+ + +-------+ + +---+---+ | cefUROXime (aka ZINACEF) | Given | 11/30/19 | 1,500 mg | | | | injection intravenous, | | 13 8:28 | | | | | INTRAPROCEDURE PRN, Starting Wed | | PM PST | | | | | 11/29/12 at 1632, Until 11/29/12 | | | | | | | at 2102 | | | | | | + +-------+ + +---+---+ +-------+ +------+---+---+ | Given | 11/30/19 | 3 mg | | | | | 13 4:32 | | | | | | PM PST | | | | +-------+ +------+---+---+ +---+---+ | | | +---+---+ + +-------+ +--------+---+---+ | ePHEDrine injection | Given | 11/30/19 | 2.5 mg | | | | intravenous, INTRAPROCEDURE PRN, | | 13 5:55 | | | | | Starting Tue11/29/12 at 1755, | | PM PST | | | | | Until Tue11/29/12 at 2102 | | | | | | + +-------+ +--------+---+---+ +-------+ +------+---+---+ | Given | 11/30/19 | 5 mg | | | | | 13 4:43 | | | | | | PM PST | | | | +-------+ +------+---+---+ +---+---+ | | | +---+---+ + +---------+ + +-------+---+ | EPINEPHrine in NS IV infusion 5 | New Bag | 11/30/19 | 0.02 | 8.98 | | | mg/250 mL (0.02 mg/mL) | | 13 7:44 | mcg/kg/m | mL/hr | | | intravenous, INTRAPROCEDURE | | PM PST | in | | | | CONTINUOUS PRN, Starting Wed | | | | | | | 11/29/12 at 1944, Until 11/29/12 | | | | | | | at 2102 | | | | | | + +---------+ + +-------+---+ +---+---+ | | | +---+---+ + +-------+ +---------+---+---+ | fentaNYL citrate (PF) (aka | Given | 11/30/19 | 150 mcg | | | | SUBLIMAZE) injection | | 13 8:30 | | | | | INTRAPROCEDURE PRN, Starting Wed | | PM PST | | | | | 11/29/12 at 1524, Until 11/29/12 | | | | | | | at 2102, sedation | | | | | | + +-------+ +---------+---+---+ +-------+ +---------+---+---+ | Given | 11/30/19 | 250 mcg | | | | | 13 8:20 | | | | | | PM PST | | | | +-------+ +---------+---+---+ | Given | 11/30/19 | 100 mcg | | | | | 13 5:48 | | | | | | PM PST | | | | +-------+ +---------+---+---+ +---+---+ | | | +---+---+ + +-------+ +---------+---+---+ | heparin bolus from continuous | Given | 11/30/19 | 45,000 | | | | infusion intravenous, | | 13 5:50 | Units | | | | INTRAPROCEDURE PRN, Starting Wed | | PM PST | | | | | 11/29/12 at 1735, Until Tue11/29/12 | | | | | | | at 2102 | | | | | | + +-------+ +---------+---+---+ +-------+ +--------+---+---+ | Given | 11/30/19 | 2,000 | | | | | 13 5:35 | Units | | | | | PM PST | | | | +-------+ +--------+---+---+ +---+---+ | | | +---+---+ + +---------+ +-------+ +---+ | lactated ringers IV | New Bag | 11/30/19 | mL/hr | 60 mL/hr | | | INTRAPROCEDURE CONTINUOUS PRN, | | 13 4:40 | | | | | Starting 11/29/12 at 1640, | | PM PST | | | | | Until Tue11/29/12 at 2102 | | | | | | + +---------+ +-------+ +---+ +---+---+ | | | +---+---+ + +---------+ +----+---+---+ | lactated ringers IV | New Bag | 11/30/19 | mL | | | | INTRAPROCEDURE CONTINUOUS PRN, | | 13 3:24 | | | | | Starting 11/29/12 at 1524, | | PM PST | | | | | Until Tue11/29/12 at 2102 | | | | | | + +---------+ +----+---+---+ +---+---+ | | | +---+---+ + +-------+ +------+---+---+ | midazolam (aka VERSED) | Given | 11/30/19 | 1 mg | | | | injection INTRAPROCEDURE PRN, | | 13 3:50 | | | | | Starting Tue11/29/12 at 1540, | | PM PST | | | | | Until Tue11/29/12 at 2102, | | | | | | | sedation | | | | | | + +-------+ +------+---+---+ +-------+ +------+---+---+ | Given | 11/30/19 | 1 mg | | | | | 13 3:42 | | | | | | PM PST | | | | +-------+ +------+---+---+ | Given | 11/30/19 | 1 mg | | | | | 13 3:40 | | | | | | PM PST | | | | +-------+ +------+---+---+ +---+---+ | | | +---+---+ + + + +----+---+---+ | NaCl 0.9 % IV INTRAPROCEDURE | given by | 11/30/19 | mL | | | | CONTINUOUS PRN, Starting Tue | | 13 8:46 | | | | | 11/29/12 at 1637, Until Tue11/29/12 | anesthes | PM PST | | | | | at 2102 | iology | | | | | + + + +----+---+---+ +---------+ +----+---+---+ | New Bag | 11/30/19 | mL | | | | | 13 4:37 | | | | | | PM PST | | | | +---------+ +----+---+---+ +---+---+ | | | +---+---+ + + + +----+---+---+ | NaCl 0.9 % IV INTRAPROCEDURE | given by | 11/30/19 | mL | | | | CONTINUOUS PRN, Starting Tue | | 13 8:46 | | | | | 11/29/12 at 1631, Until Tue11/29/12 | anesthes | PM PST | | | | | at 2102 | iology | | | | | + + + +----+---+---+ +---------+ +----+---+---+ | New Bag | 11/30/19 | mL | | | | | 13 4:31 | | | | | | PM PST | | | | +---------+ +----+---+---+ +---+---+ | | | +---+---+ + +---------+ + +-------+---+ | nitroGLYCERIN IV infusion 0.2 | New Bag | 11/30/19 | 0.1 | 4.49 | | | mg/mL intravenous, | | 13 8:06 | mcg/kg/m | mL/hr | | | INTRAPROCEDURE CONTINUOUS PRN, | | PM PST | in | | | | Starting Tue11/29/12 at 2005, | | | | | | | Until Tue11/29/12 at 2102 | | | | | | + +---------+ + +-------+---+ +---+---+ | | | +---+---+ + +---------+ + +-------+---+ | norepinephrine in NaCl 0.9% IV | New Bag | 11/30/19 | 0.01 | 2.81 | | | infusion 8 mg/250 mL (0.032 | | 13 7:07 | mcg/kg/m | mL/hr | | | mg/mL) intravenous, | | PM PST | in | | | | INTRAPROCEDURE CONTINUOUS PRN, | | | | | | | Starting Tue11/29/12 at 1907, | | | | | | | Until Tue11/29/12 at 2101 | | | | | | + +---------+ + +-------+---+ +---+---+ | | | +---+---+ + +---------+ + +--------+---+ | propofol (karthikeyan DIPRIVAN) | New Bag | 11/30/19 | 35 | 31.42 | | | injection INTRAPROCEDURE | | 13 8:21 | mcg/kg/m | mL/hr | | | CONTINUOUS PRN, Starting Wed | | PM PST | in | | | | 11/29/12 at 2020, Until Tue11/29/12 | | | | | | | at 2101 | | | | | | + +---------+ + +--------+---+ +---+---+ | | | +---+---+ + +-------+ +--------+---+---+ | protamine injection | Given | 11/30/19 | 380 mg | | | | intravenous, INTRAPROCEDURE PRN, | | 13 8:06 | | | | | Starting Tue11/29/12 at 2006, | | PM PST | | | | | Until Tue11/29/12 at 2 | | | | | | + +-------+ +--------+---+---+ +---+---+ | | | +---+---+ + +-------+ +-------+---+---+ | rocuronium (aka ZEMURON) | Given | 11/30/19 | 50 mg | | | | injection INTRAPROCEDURE PRN, | | 13 8:12 | | | | | Starting Tue11/29/12 at 1552, | | PM PST | | | | | Until Tue11/29/12 at 2102, | | | | | | | Neuromuscular block | | | | | | + +-------+ +-------+---+---+ +-------+ +--------+---+---+ | Given | 11/30/19 | 100 mg | | | | | 13 3:52 | | | | | | PM PST | | | | +-------+ +--------+---+---+ +---+---+ | | | +---+---+ documented in this encounter"
--- OUTSIDE RECORDS SUMMARY | ~2019-09-13 | XMS | Encounter Summary ---
Demographics + + + | Address | [address] | | | [place] [address] | + + + | Home Phone | | + + + | Preferred Language | Unknown | + + + | Marital Status | Single | + + + | Mormon Affiliation | CHR | + + + | Race | White | + + + | Ethnic Group | Not or | + + + Author + + + | Author | [facility] | + + + | Organization | [facility] | + + + | Address | Unknown | + + + | Phone | Unavailable | + + + Support + + + + + | Name | Relationship | Address | Phone | + + + + + | Joanne Zhang | [place] | [address] | | | | | [place] | | | | | [address] | | + + + + + | Linh Pate | ECON | Unknown | | + + + + + Care Team Providers + +------+ + | Care Sales Manager Prearranged Funerals Name | Role | Phone | + +------+ + | Erick Bernstein DO | PCP | | + +------+ + Encounter Details +--------+ + + + + | Date | Type | Department | Care Team | Description | +--------+ + + + + | 09/30/ | Results | LAB REFERRED TESTS | Other, Faculty | | | 2012 | Only | [address] [facility] | [phone] | | | | | [address] | | | | | | [place], [place] | | | | | | [address] | | | +--------+ + + + [...] + | EJECTION FRACTION | Routin | 09/30/2012 | | Results for this | | | e | 10:50 AM | | procedure are in the | | | | PST | | results section. | + +--------+ + + + | EJECTION FRACTION | Routin | 09/30/2012 | | Results for this | | | e | 10:50 AM | | procedure are in the | | | | PST | | results section. | + +--------+ + + + documented in this encounter Results EJECTION FRACTION (09/30/2012 10:50 AM PST) + + + + + + | Component | Value | Ref Range | Performed | Pathologist | | | | | At | Signature | + + + + + + | EJECTION | 25 - 30%Comment: EF | | [facility] | | [...] DEPT OF | [address] | [place], [place] | | | CARDIOLOGY | [address] | [address] | | + + + + + EJECTION FRACTION (09/30/2012 10:50 AM PST) + + + + + + | Component | Value | Ref Range | Performed | Pathologist | | | | | At | Signature | + + + + + + | EJECTION | 25 - 30%Comment: EF | | [facility] | | [...] + + | [facility] | [address] | [place], [place] | | | CARDIOLOGY | [address] | [address] | | + + + + + documented in this encounter Visit Diagnoses Not on filedocumented in this encounter"
--- OUTSIDE RECORDS SUMMARY | ~2019-09-13 | XMS | Encounter Summary ---
Demographics + + + | Address | [address] | | | [place] [address] | + + + | Home Phone | | + + + | Preferred Language | Unknown | + + + | Marital Status | Single | + + + | Caodaism Affiliation | CHR | + + + | Race | White | + + + | Ethnic Group | Not or | + + + Author + + + | Author | [facility] | + + + | Organization | [facility] | + + + | Address | Unknown | + + + | Phone | Unavailable | + + + Support + + + + + | Name | Relationship | Address | Phone | + + + + + | Joanne Zhang | [place] | [address] | | | | | [place] | | | | | [address] | | + + + + + | Linh Pate | ECON | Unknown | | + + + + + Care Team Providers + +------+ + | Care Energy Risk Management Analyst Name | Role | Phone | [...] | | | | | | [facility] | | | | | | [facility] Admitting | | | | | | Desk Located on the | | | | | | 9th floor | | | | | | [place], [place] | | | | | | [address] | | | +--------+ + + + [...] | 1 | | oxygen, PEEP Valve [id number]. | | | 1 | | | [...]
--- OUTSIDE RECORDS SUMMARY | ~2019-09-13 | XMS | Clinical Summary ---
Demographics + + + | Address | [address] | | | [place] [address] | + + + | Home Phone | | + + + | Preferred Language | Unknown | + + + | Marital Status | Single | + + + | Yazdanism Affiliation | Unknown | + + + | Race | Unknown | + + + | Ethnic Group | Unknown | + + + Author + + + | Author | [facility] | | | and [place] | + + + | Organization | [facility] [...] Team Providers + +------+ + | Care Processor Solid Propellant Name | Role | Phone | + [...] [place] | | | | | | [address] | | | | | | | [...] | | | Dtap/Tdap/Td (1 - | 8 | | | | Tdap) | | [...] +--------+ +---------+--------+ | MEDICARE | MEDICA | [id number] | | [phone] | | Medica | | | RE | | [phone]-Pr | 5 | | re | | | PART A | | esent | | | | | | AND B | | | | | | + +--------+ +--------+ +---------+--------+ | [employer] | [employer] | [id number] | 07/18/ | [phone] | | Medica [...] rossi | | | 1 (Home) | [address] | + +--------+ +--------+ + + Advance Directives + + + + + | Type | Date Recorded | Patient | Explanation | | | | Heavy Equipment Sales Manager | | + + + + + | Power of | | | | | Senior Network Administrator | | | | + + + + + | Advance | | | | | Directive | | | | + + + + +
--- OUTSIDE RECORDS SUMMARY | ~2019-09-13 | XMS | Encounter Summary ---
Demographics + + + | Address | [address] | | | [place] [address] | + + + | Home Phone | | + + + | Preferred Language | Unknown | + + + | Marital Status | Single | + + + | Jehovah'S Witness Affiliation | CHR | + + + | Race | White | + + + | Ethnic Group | Not or | + + + Author + + + | Author | [facility] | + + + | Organization | [facility] | + + + | Address | Unknown | + + + | Phone | Unavailable | + + + Support + + + + + | Name | Relationship | Address | Phone | + + + + + | Joanne Zhang | HERMILA | [address] | | | | | [place] | | | | | [phone] | | + + + + + | Linh Pate | ECON | Unknown | | + + + + + Care Team Providers + +------+ + | Care Sharepoint Analyst Name | Role | Phone | [...] Description | +--------+---------+ + + + | 12/08/ | Surgery | 6A Intra Op [id number] | Helen Gee, | MEDIASTINAL WASHOUT; | | 2012 | | [address] | | STERNAL CLOSURE. | | | | Rd [facility] | | Cultures x 3 | | | | Hospital Admitting | | | | | | Desk Located on the | | | | | | 9th floor | | | | | | [place], [place] | | | | | | [address] | | | +--------+---------+ + + + [...] wires IVs PICC line CPR TTE and AMDHURI Hospital Course: Mr. Josef Ramos was admitted to [facility] on 11/26/2012 for heparin bridge for LV [...] Lifelong non-smoker Core Measures: Diagnosis of Acute HI: No Diagnosis of CHF: Yes. Patient is on an RICKIE-I/ARB.. Patient is on a beta-jessy at dis charge. Follow Up: Cardiothoracic Surgery - Narendra Lunsford MD - 2 weeks PCP - Erick Bernstein DO - on d/c from [facility] Cardiology - Kyle Chavez MD - 4-6 weeks Disposition: [facility] Condition: fair Discharging Physician: Electronically signed by: Kathy WINSTON, PA-C Department of Surgery | Division of Cardiothoracic Surgery Attending Physician: Narendra Lunsford MD OPERATIVE NOTE Date: 11/29/2012 Attending Surgeon: NARENDRA LUNSFORD MD Electric Sign Assembler(s): Kathy Castro PA-C No residents of the [...] were present during the team pause: Surgeon, language assistant, nursing, anesthesia, perfusion. Findings at Surgery: [...] care unit. Narendra Lunsford MD, FACS, FACC Chemical Production Technician, Department of Surgery Head, Adult Cardiac Surgery Co-Director, Multidisciplinary Heart Valve Clinic [facility] | [email or web address] documented in this encounter Medications at Time [...] 1 hour (Electronically Signed) Joseph Lewis PA-C [facility] Cardiac Surgery athy Castro PA - 12/20 1:39 PM PDT Cardiothoracic Surgery Progress Note Procedure: CABG/urgent re-entry sternotomy for tampenade with open chest/washout and chest closure POD # Past 24 hour Events No need for [...] outpatient follow up. MD MEHDI Moses MD [facility] [address]K [address] [address] [facility]: [id number] NE[facility]Y [facility] Place of Service: IP CSN: [id number] Suggested Modifier: GC Resident Involved rotain, Josse [...] plan. Josse Rojas MD Nephrology Fellow Pager [phone] SUBJECTIVE & INTERVAL EVENTS: No significant overnight [...] injection 7 Units 7 Units Subcutaneous Q8H eoalpvrewoml-yvdr-iqtnkuom (aka CEROVITE) liquid 15 mL 15 mL [...] 11K cont care Electronically signed by: Kathy WINSTON PAJtC Department of Surgery | Division of Cardiothoracic Surgery Mehdi Earl M D - 12/19/2012 7:17 AM PDTI performed a history and physical examination of the patient and discussed his management with the resident. I reviewed the resident s note and agree wit h the documented findings and plan of care. MD MEHDI Moses MD 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 Hypernatremia- Mild, likely due to impaired access [...] plan. Josse Rojas MD Nephrology Fellow Pager [phone] SUBJECTIVE & INTERVAL EVENTS: No significant overnight [...] injection 7 Units 7 Units Subcutaneous Q8H kcfyimjyeltw-soao-xwjdckql (aka CEROVITE) liquid 15 mL 15 mL [...] JOHNNY RASCON PA-C Division of Cardiothoracic Surgery [facility] [place] Mail Code L353 [address] [facility] [address] [phone] Mehdi Earl M D - 12/18/2012 8:04 AM PDTI performed a history and physical examination of the patient and discussed his management with the resident. I reviewed the resident s note and agree wit h the documented findings and plan of care. MD MEHDI Moses MD [address] [address] [facility] DE[facility]: [id number] NEPH[facility] Place of Service: CSN: [id number] Suggested Modifier: GC Resident Involved Josse Mcgowan [...] HCV Ab, HBVsAb, and try to arrange [facility] for later this week. RECOMMENDATIONS: See recommendations above in bold. We will continue to follow and offer additional recommendations as his clinical course unfo lds. Patient was seen and staffed with Dr. Blue, who agrees with the assessment and plan. Josse Rojas MD Nephrology Fellow Pager [phone] SUBJECTIVE & INTERVAL EVENTS: No significant overnight [...] injection 7 Units 7 Units Subcutaneous Q8H xyhzioydhpuf-dwcf-wpjsvbxt (aka CEROVITE) liquid 15 mL 15 mL [...] kg/(m^2)FIO2 (%): 40 fraction of O2 (12/12/12 09) O2 Delivery Device: None (room air) (12/18/12 0725) Intake/Output Summary (Last 24 hours) at 12/18/12 0804 Last data filed at 12/18/12 07 Gross per 24 hour Intake 1618 ml [...] Neuro: Grossly non-focal LABS/STUDIES: Recent Labs Basename 12/18/1244212/17/1252812/16/1251912/12/12 0400 12/11/12 0200 12/10/12 020 5 NA [...] -- 6.5 6.2 5.9* Recent Labs Basename 12/18/1244212/17/1252812/16/12519 CA 8.8 8.6 8.7 MG 2.3 2.1 2.3 PO4 4.0 3.3 3.5 ALB 2.2* 2.2* 2.1* PTH -- -- -- Recent Labs Basename 12/18/1244212/17/12528 12/16/12 0520 12/12/12 0400 12/11/12 0200 12/10/12 [...] CALAZIME) topical paste, , Topical, QID PRN focmcnkfwntv-uqhu-jbkhxisa (aka CEROVITE) liquid 15 mL, 15 mL, [...] Intake/Output Summary (Last 24 hours) at 12/17/12 0925 Last data filed at 12/17/12 0610 Gross [...] to set up outpatient HD/tunneled HD line [facility]IC DEPARTMENT: [id number] NE[facility] Place of Service: - IP CSN: [id number] Suggested Modifier: None Sidney Olson MD - [...] (or 3 results): Recent Labs Basename 12/17/12 0512/16/12 0512/15/12 0525 NA 143 147* 144 K 3.8 3.7 3.9 CL 108 111* 108 BICARB 24 24 27 BUN 46* 58* 47* CR 3.08* 3.56* 3.16* CA 8.6 8.7 8.5* MG 2.1 2.3 2.1 PO4 3.3 3.5 3.2 CBC with diff last 72 hours (or 3 results) Recent Labs Basename 12/17/12 0512/16/12 0512/15/12 0525 WBC 8.5 7.8 10.1 HB 8.6* [...] CALAZIME) topical paste, , Topical, QID PRN ajpoapamawzx-ctav-cmxgbjnz (aka CEROVITE) liquid 15 mL, 15 mL, [...] may need to set up outpatient HD [facility] DEPARTMENT: [id number]- [facility] NEPHROLOGY [facility] Place of Service: [id number] - IP CSN: [id number] Suggested Modifier: None Johnny Morataya PA- C [...] hours (or 3 results) Recent Labs Basename 12/16/1251912/15/12 0525 12/14/12 0200 WBC 7.8 10.1 8.4 [...] JOHNNY RASCON PA-C Division of Cardiothoracic Surgery [facility] [place] Mail Code L353 [address] [facility] [phone] Veronika Bolaños MD - 12/15/2012 1:06 PM PDT [facility] DAILY PROGRESS NOTE (Resident) Team Pager: [phone] Attendin Author: Veronika Palacios MD Date:12/15/2012 Attending Taxonomy Teacher: Operating Surgeon: MD Narendra Ellison MD POD [...] Prophylaxis:Omeprazole Glycemic control: NPH/lispro Veronika Palacios MD uHeidi vinson MD - 12/15/2012 9:02 AM PDT [facility] ATTENDING ICE RESURFACING MACHINE OPERATORS PROGRESS NOTE Team Pager: [phone] Attendin I saw and examined the patient [...] Department of Anesthesiology and Ольга-Operative Medicine [address] [facility] [place] [address] [facility] DE[facility]MENT: [facility] ICU CARDIAC [[id number]] Place of Service:- Inpatient Date of Service: 12/15/2012 CSN: [id number] Suggested Modifier: GC - Resident Involved Suggested CPT: TO [place] 9: 10 AM Veronika Bolaños MD - 12/14/2012 12:42 PM PDTFormatting of this note might be differ ent from the original. [facility] DAILY PROGRESS NOTE (Resident) Team Pager: [phone] Attendin Author: Veronika Palacios MD Date:12/14/2012 Attending Taxonomy Teacher: Operating Surgeon: MD Narendra Ellison MD POD [...] >30 degrees Ulcer Prophylaxis:Omeprazole Glycemic control: NPH/lispro Veroniak Palacios MD utch Heidi guerrero MD - 12/14/2012 8:13 AM PDT [facility] ATTENDING ICE RESURFACING MACHINE OPERATORS DAILY PROGRESS NOTE Team Pager: [phone] Attendin Date:12/14/2012 Author: HEIDI NIETO MD Attestation: [...] is currently criti ryan ill. EPIC DEPARTMENT: [facility] ICU CARDIAC [[id number]] Place of Service:[address]- Inpatient Date of Service: 12/14/2012 CSN: [id number] Suggested Modifier: GC - Resident Involved Suggested CPT: TO [place] Respiratory: Recent Labs Basename 12/12/12 0819 12/12/12 [...] (aka CALAZIME) topical paste Topical QID PRN wcouzsubiifk-vdqd-vmmwibib (aka CEROVITE) liquid 15 mL 15 mL [...] note might be different from the db brewster [facility] ATTENDING ICE RESURFACING MACHINE OPERATORS PROGRESS NOTE Team Pager: [phone] Attendin TTE performed this AM discussed with Dr. Heitner -- evidence of abnormal septal motion cons istent with tamponade. Patient is hemodynamically stable and continues to be polyuric. The finding appears to be new since the . WIll stop heparin for now and reassess. 25 additional minutes spent in the care and management of this patient who is critically i ll Heidi Nieto M.D., M.A. Department of Anesthesiology and Ольга-Operative Medicine [address] [facility] [facility] [place] [address] [facility] DE[facility]MENT: [facility] ICU CARDIAC [[id number]] Place of Service:- Inpatient Date of Service: 12/13/2012 CSN: [id number] Suggested Modifier: None Suggested CPT: TO [place] 3: 12 PM PDTVeronika Palacios MD - 12/13/2012 9:07 AM PDTFormatting of this note might be differ ent from the original. [facility] DAILY PROGRESS NOTE (Resident) Team Pager: [phone] Attendin Author: Veronika Palacios MD Date:12/13/2012 Attending Taxonomy Teacher: Operating Surgeon: MD Narendra Ellison MD POD [...] closure 12/10/12 - Dialysis catheter place in [facility]; CRRT initiated for acute kidney failure [...] 2+ edema Skin: normal Tubes/Lines (insertion date): [facility] dialysis catheter (12/10/12) Leslie catheter (12/04/12) [facility] 12/12 Feeding: Tube feeds Analgesia:oxycodone Sedation: None Thromboprophylaxis: Heparin infusion Head of Bed: Head of Bed >30 degrees Ulcer Prophylaxis:Omeprazole Glycemic control: Insulin infusion Veronika Palacios MD ilda Banerjee - 12/13/2012 9:03 AM PDTTransthoracic echocardiogram completed. Final report to kwesi b[place]. eidi Nieto MD - 7:41 AM PDT [facility] ATTENDING ICE RESURFACING MACHINE OPERATORS DAILY PROGRESS NOTE Team Pager: [phone] Attendin Date:12/13/2012 Author: HEIDI NIETO MD Attestation: [...] patient who is currently criti ryan ill. [facility] DE[facility]MENT: [facility] ICU CARDIAC [[id number]] Place of Service:- Inpatient Date of Service: 12/13/2012 CSN: [id number] Suggested Modifier: GC - Resident Involved Suggested CPT: TO [facility] Respiratory: Recent Labs Basename 12/12/12 0819 12/12/12 0400 FIO2 .4 .40 PH 7.48* 7.46* PCO2 36 38 PO2 112* 113* HCO3 26 27 ABGEXCESS 3.2 3.0 Renal: Intake/Output Summary (Last 24 hours) at 12/13/12 0741 Last data filed at 12/13/12 0600 Gross per 24 hour Intake 31953.7 ml Output 98099 ml Net 152.7 ml ID: Temp (24hrs), [...] 5 days Recent Labs Basename 12/13/12 0525 12/13/1232912/13/12 0322 12/12/12 1651 12/12/12 0819 12/12/12 040 [...] - 12/12/2012 11:07 PM PDT [facility] ATTENDING ICE RESURFACING MACHINE OPERATORS NIGHT PROGRESS NOTE Team Pager: [phone] Attendin Events of the day, patient condition, [...] patient who is critically ill (Josef [facility] [id number] ) Oriana Ram MD [employer] Department of Anesthesiology and Ольга-Operative Medicine Critical Care EPIC DEPARTMENT: [facility] ICU CARDIAC [[id number]] Place of Service:- Inpatient Date of Service: 12/12/2012 CSN: [id number] Suggested Modifier: Suggested CPT: TO [place] Data below used in this assessment: Hemodynamics: [...] 12/12/12 2200 Gross per 24 hour Intake 68030.4 ml Output 35439 ml Net -166.6 ml Recent Labs Basename [...] % ophthalmic ointment Both Eyes Q6 H alVeronika eubanks MD - 12/12/2012 9:08 AM PDT [facility] DAILY PROGRESS NOTE (Resident) Team Pager: [phone] Attendin Author: Veronika Palacios MD Date:12/12/2012 Attending Taxonomy Teacher: Operating Surgeon: MD Narendra Ellison MD POD [...] Glycemic control: Insulin infusion Veronika Palacios MD utch Heidi guerrero MD - 12/12/2012 8:05 AM PDT [facility] ATTENDING ICE RESURFACING MACHINE OPERATORS DAILY PROGRESS NOTE Team Pager: [phone] Attendin Date:12/12/2012 Author: HEIDI NIETO MD Attestation: [...] patient who is currently criti ryan ill. [facility] DE[facility]MENT: [facility] ICU CARDIAC [[id number]] Place of Service:- Inpatient Date of Service: 12/12/2012 CSN: [id number] Suggested Modifier: GC - Resident Involved Suggested CPT: TO [facility] Hemodynamics: Hemodynamic Drips: Arterial BP Mean: 76 [...] 12/12/12 0700 Gross per 24 hour Intake 99234.16 ml Output 44696 ml Net -382.84 ml ID: Temp (24hrs), [...] 0659 12/12/12 0609 12/12/12 0400 12/11/12 2359 12/11/12 2000 NA -- -- 142 142 143 K [...] (aka CALAZIME) topical paste Topical QID PRN pqbfkvlhmabi-npdn-sfvzsmjf (aka CEROVITE) liquid 15 mL 15 mL [...] - 12/11/2012 11:21 PM PDT [facility] ATTENDING ICE RESURFACING MACHINE OPERATORS NIGHT PROGRESS NOTE Team Pager: [phone] Attendin Events of the day, patient condition, [...] patient who is critically ill ([facility] [id number] ) Oriana Ram MD [employer] Department of Anesthesiology and Ольга-Operative Medicine Critical Care EPIC DEPARTMENT: [facility] ICU CARDIAC [[id number]] Place of Service:- Inpatient Date of Service: 12/11/2012 [facility]: [id number] Suggested Modifier: Suggested CPT: TO [place] Data below used in this assessment: Hemodynamics: [...] at 12/11/122199 Gross per 24 hour Intake 57401.36 ml Output 03123 ml Net -761.64 ml Recent Labs Basename 12/11/12 23012/11/12219912/11/12205812/11/12199912/11/12 1646 12/11/12 121 1 NA -- -- [...] 4.4 4.3 Recent Labs Basename 12/11/12 02012/10/12 0205 12/09/12 0154 WBC 14.6* 17.2* 14.3* [...] Yes, proceed to 30 min SBT (12/11/12 135) RSBI at 30 min: 40.27 (12/11/12 1432) [...] (aka CALAZIME) topical paste Topical QID PRN dxpyonunwhcp-hgap-bnntsxxy (aka CEROVITE) liquid 15 mL 15 mL [...] - 12/11 9:15 AM PDT [facility] ATTENDING ICE RESURFACING MACHINE OPERATORS DAILY PROGRESS NOTE Team Pager: [phone] Attending Pager: [phone] Author: MARCY SIFUENTES DO ATTESTATION: I saw [...] who is critically ill. Marcy Sifuentes DO [employer] Department of Anesthesiology and Perioperative Medicine [facility]: [facility] ICU CARDIAC [[id number]] Place of Service:01595- Inpatient Date of Service: 12/11/2012 CSN: [id number] Suggested Modifier: GC - Resident Involved Suggested CPT: TO [place] Precious Ramires MD - 5:58 AM PDT [facility] DAILY PROGRESS NOTE (Resident) Team Pager: [phone] Attendin Author: PRECIOUS ALVARADO MD Date:12/11/2012 Attending Taxonomy Teacher: Operating Surgeon: MD Narendra Figueroa MD POD #12 3v CABG (11/29/12), POD#7 sternotomy (12/04/12) POD#3 chest closure (12/08/12) HPI: Joseftoñito Ramos is a 67 y.o. man with [...] im plementation of plans. JOHNNY MERAZ PA-C [facility] DE[facility]MENT: [facility] ICU CARDIAC [[id number]] Place of Service:- Inpatient Date of Service: 12/11/2012 CSN: [id number] Suggested Modifier: None Suggested CPT: TO [facility]ISTA Mack Malagon MD - 12/10/2012 2:15 PM PDT [facility] DEPARTMENT: [facility], [facility]- [id number] Place of Service: - Date of Service: 12/10/2012 CSN: [id number] Modifiers:GC Resident Involved: yes Suggested CPT: 54205 Critical Care, Initial 30-74 minutes 36 minutes total time spent in Critical care independent of procedures. My impression, recent events and assesment are at the top of this note. Today's data which were reviewed are listed below the A&P I saw and examined JOSEF RAMOS with the [facility] housestaff. I agree with the written assess [...] Value Range Status 12/10/2012 Final Value: STUDY: CO CHEST 1 VIEW 12/10/12 05:41:00 HISTORY: Evaluate [...] signed / PRECIOUS HOLT 12/10/2012 10:53 AM ony, Dorys Black MD - 12:58 PM PDTI saw and examined patient with Dr. Parish and agree with her findings an d plan. Please do not give free water as CVVH starting soon, and don't want to correct too quickly/ over-correct. [facility] DEPARTMENT: [id number]- [facility] NEPHROLOGY [facility] Place of Service: CSN: [id number] Suggested Modifier: GC Resident Involved abib, Kenia [...] 5% IV infusion 0.5-1 mg/min Intravenous CONTINUOUS Mo evette Palacios MD 16.67 mL/hr at 12/10/12 1200 [...] dextrose 5% IV 75 mL/hr Intravenous CONTINUOUS SRAANYA Valencia 75 mL/hr at 12/10/12 1200 75 [...] topical paste Topical QID PRN SARANYA Young ruufllvkwwur-drqp-crbjnfbu (aka CEROVITE) liquid 15 mL 15 mL [...] results) Recent Labs Basename 12/10/12 0205 12/09/12 01512/08/12 18012/08/12 0200 WBC 17.2* 14.3* 14.1* -- HB 8.5* 8.3* 8.1* -- HCT 24.8* 24.3* 24.2* -- PLT 190 175 184 -- NEUTROPERC 84* 72* -- 82* BANDPCT 3 8 -- -- LYMPHPERC 2* 8* -- 8* MONOPERC 7 8 -- 7 BASOPERC 1 1 -- 0 EOSPERC 3 3 -- 3 PLEASE SEE ASSESSMENT AND PLAN AT THE TOP OF THIS NOTE nselmo, Precious Allen MD - 12/10/2012 6:05 AM PDT [facility] DAILY PROGRESS NOTE (Resident) Team Pager: [phone] Attendin Author: PRECIOUS ALVARADO MD Date:12/10/2012 Attending Taxonomy Teacher: Operating Surgeon: MD Narendra Green MD POD [...] Glycemic control: insulin infusion PRECIOUS ALVARADO MD abibKenia MD - 12/09/2012 4:01 PM PDTAddendum: ICU team unable to place HD access, so will hold off on CRRT for now (R IJ is clotted, do n ot want to place in groin). ony, Dorys Black MD - 12/09/2012 1:34 PM PDTI saw and examined patient with Dr. Jem fernandez agree with her findings and plan. [facility] DEPARTMENT: [id number]- [facility] NEPHROLOGY [facility] Place of Service: CSN: [id number] Suggested Modifier: GC Resident Involved enia Parish [...] topical paste Topical QID PRN SARANYA Young yyvnkouhiiww-zkgx-jakdudgm (aka CEROVITE) liquid 15 mL 15 mL [...] g 2.25 g Intravenous Q6H Alejandro Kim D 2.25 g at 12/09/12 0833 polyethylene glycol [...] PLAN AT THE TOP OF THIS NOTE alVeronika eubanks MD - 0 12/09/2012 12:41 PM PDT [facility] DAILY PROGRESS NOTE (fellow) Team Pager: [phone] Attendin Author: Veronika Palacios MD Date:12/09/2012 Attending Taxonomy Teacher: Operating Surgeon: MD Narendra Snyder MD POD [...] Glycemic control: insulin gtt Veronika Palacios MD Elmira Rutherford MD - 12/09/2012 9:11 AM PDTFormatting of this note might be different from the or iginal. [facility] ATTENDING ICE RESURFACING MACHINE OPERATORS DAILY PROGRESS NOTE Team Pager: [phone] Attending Pager: [phone] Author: ELMIRA SALGUERO MD ATTESTATION: I saw and evaluated the patient at the bedside together with Dr. Palacios. Please see their note for a detailed rounding summary. I reviewed the documented findings, relevant data, and recent imaging available. I agree with the assessment and plan as described in [facility] resident's note with the following exceptions/additions as noted below. HPI: 67 yo man with hx of CAD s/p 3V CABG (DE [place] ROSA --> LAD, SVG --> OM, PDA) on 11/29/12, development al delay, morbid obesity, VT, LV thrombus, HTN, and CKD (baseline Cr ~1.5) who returned to [facility] ICU from [facility] for shortness of [...] who is critically ill. Elmira Salguero MD [employer] editor Pulmonary and Critical Care Medicine [facility] DEPARTMENT: [facility]- [id number] Place of Service: - Date of Service: 12/09/2012 CSN: [id number] Modifiers: Resident Involved: yes Suggested CPT: 50059 Critical Care, Initial 30-74 minutes Mack Malagon MD - 11/24 8:08 PM PDT [facility] DE[facility]MENT: [facility]- [id number] Place of Service: - Date of Service: 12/08/2012 CSN: [id number] Modifiers: Resident Involved: yes Suggested CPT: 55634 Critical Care, Initial 30-74 minutes 42 minutes total time spent in Critical care independent of procedures. My impression, recent events and assesment are at the top of this note. Today's data which were reviewed are listed below the A&P I saw and examined JOSEF RAMOS with the [facility] housestaff. I agree with the written assess [...] (or 3 results): Recent Labs Basename 12/08/12 18012/08/12 0200 12/07/12 1609 12/07/12 0102 NA 147* [...] Labs Basename 12/08/12 18012/08/12 0200 12/07/12 0202 12/06/12 2027 12/06/12 0228 WBC 14.1* 17.2* 19.5* -- [...] Date Value Range Status 12/08/2012 Final Value: CO CHEST 1 VIEW, 12/08/12 05:49:00 COMPARISON: 12/07/12 [...] closed Dispo: Critical, stable to SICU Dictation: [id number] HELEN GEE MD Cardiothoracic Surgery Fellow Elmira Rutherford MD - 12/08/2012 7:32 AM PDT [facility] ATTENDING ICE RESURFACING MACHINE OPERATORS DAILY PROGRESS NOTE Team Pager: [phone] Attending Pager: [phone] Author: ELMIRA SALGUERO MD ATTESTATION: I saw and evaluated the patient at the bedside together with Dr. Palacios. Please see their note for a detailed rounding summary. I reviewed the documented findings, relevant data, and recent imaging available. I agree with the assessment and plan as described in [facility] resident's note with the following exceptions/additions as noted below. HPI: 67 yo man with hx of CAD s/p 3V CABG (DE [place] ROSA --> LAD, SVG --> OM, PDA) on 11/29/12, development al delay, morbid obesity, VT, LV thrombus, HTN, and CKD (baseline Cr ~1.5) who returned to [facility] ICU from [facility] for shortness of [...] who is critically ill. Elmira Salguero MD [employer] editor Pulmonary and Critical Care Medicine [facility] DE[facility]MENT: [facility], [facility]- [id number] Place of Service: - Date of Service: 12/08/2012 CSN: [id number] Modifiers: Resident Involved: yes Suggested CPT: 76930 Critical Care, Initial 30-74 minutes Veronika Bolaños MD - 6:04 AM PDT [facility] DAILY PROGRESS NOTE (fellow) Team Pager: [phone] Attendin Author: Veronika Palacios MD Date:12/08/2012 Attending Taxonomy Teacher: Operating Surgeon: MD Narendra Snyder MD POD [...] might be different from the mónica ginal. [facility]: [facility]- [id number] Place of Service: - Date of Service: 12/07/2012 CSN: [id number] Modifiers:GC Resident Involved: yes Suggested CPT: 22696 Critical Care, Initial 30-74 minutes 33 minutes total time spent in Critical care independent of procedures. My impression, recent events and assesment are at the top of this note. Today's data which were reviewed are listed below the A&P I saw and examined JOSEF RAMOS with the [facility] housestaff. I agree with the written assess [...] Value Range Status 12/07/2012 Final Value: STUDY: CO CHEST 1 VIEW 12/07/12 06:14:00 CLINICAL DATA: [...] 8CSI DAILY PROGRESS NOTE (fellow) Team Pager: [phone] Attendin Author: Veronika Palacios MD Date:12/07/2012 Attending Taxonomy Teacher: Operating Surgeon: MD Narendra Snyder MD POD [...] different from the or iginal. 8CSI ATTENDING ICE RESURFACING MACHINE OPERATORS DAILY PROGRESS NOTE Team Pager: [phone] Attending Pager: [phone] Author: ELMIRA SALGUERO MD ATTESTATION: I saw and evaluated the patient at the bedside together with Dr. Palacios. Please see their note for a detailed rounding summary. I reviewed the documented findings, relevant data, and recent imaging available. I agree with the assessment and plan as described in [facility] resident's note with the following exceptions/additions as noted below. HPI: 67 yo man with hx of CAD s/p 3V CABG (DE [place] ROS[place] --> LAD, SVG --> OM, PDA) on 11/29/12, development al delay, morbid obesity, VT, LV thrombus, HTN, and CKD (baseline Cr ~1.5) who returned to [facility] ICU [place] for shortness of [...] chest - renal consult and recs ([facility]) -- watch for dialysis needs - cont heparin infusion, titrate to heparin levels 0.3 -- 0.5, ATIII >0.5 - trophic tube feeds - I/O: do not allow to become significantly more negative than 1L I have spent 35 minutes in the care and management of this patient (not including procedure s), who is critically ill. Elmira Salguero MD [employer] editor Pulmonary and Critical Care Medicine [facility] DEPARTMENT: [facility]- [id number] Place of Service: Date of Service: 12/07/2012 CSN: [id number] Modifiers:GC Resident Involved: yes Suggested CPT: 64588 Critical Care, Initial 30-74 minutes Mack Malagon MD - 11/24 10:17 PM PDT [facility] DEPARTMENT: [facility], [facility]- [id number] Place of Service: [facility] Date of Service: 12/06/2012 CSN: [id number] Modifiers:GC Resident Involved: yes Suggested CPT: 79813 Critical Care, Initial 30-74 minutes 43 minutes total time spent in Critical care independent of procedures. My impression, recent events and assesment are at the top of this note. Today's data which were reviewed are listed below the A&P I saw and examined JOSEF RAMOS with the [facility] housestaff. I agree with the written assess [...] Recent Labs Basename 12/06/12202612/06/12 1354 12/06/12 0814 12/06/12 0228 12/05/12 0400 12/04/12 190 1 12/04/12 1631 [...] 8CSI DAILY PROGRESS NOTE (fellow) Team Pager: [phone] Attendin Author: Veronika Palacios MD Date:12/06/2012 Attending Taxonomy Teacher: Operating Surgeon: MD Narendra Snyder MD POD [...] different from the or iginal. 8CSI ATTENDING ICE RESURFACING MACHINE OPERATORS DAILY PROGRESS NOTE Team Pager: [phone] Attending Pager: [phone] Author: ELMIRA SALGUERO MD ATTESTATION: I saw and evaluated the patient at the bedside together with Dr. Palacios. Please see their note for a detailed rounding summary. I reviewed the documented findings, relevant data, and recent imaging available. I agree with the assessment and plan as described in [facility] resident's note with the following exceptions/additions as noted below. HPI: 67 yo man with hx of CAD s/p 3V CABG (DE [place] --> LAD, SVG --> OM, PDA) on 11/29/12, development al delay, morbid obesity, VT, LV thrombus, HTN, and CKD (baseline Cr ~1.5) who returned to [facility] [place] [facility] for shortness of [...] who is critically ill. Elmira Salguero MD [employer] editor Pulmonary and Critical Care Medicine [facility] DEPARTMENT: [facility], [facility]- [id number] Place of Service: Date of Service: 12/06/2012 CSN: [id number] Modifiers:GC Resident Involved: yes Suggested CPT: 47695 Critical Care, Initial 30-74 minutes ack Thompson MD - 11/24 8:36 PM PDT [facility] DE[facility]MENT: [facility], [facility]- [id number] Place of Service: Date of Service: 12/05/2012 CSN: [id number] Modifiers:GC Resident Involved: yes Suggested CPT: 02831 Critical Care, Initial 30-74 minutes 32 minutes total time spent in Critical care independent of procedures. My impression, recent events and assesment are at the top of this note. Today's data which were reviewed are listed below the A&P I saw and examined JOSEF RAMOS with the [facility] housestaff. I agree with the written assess [...] Value Range Status 12/05/2012 Final Value: STUDY: CO CHEST 1 VIEW 12/05/12 07:56:00 INDICATION: Sternotomy [...] 8CSI DAILY PROGRESS NOTE (fellow) Team Pager: [phone] Attendin Author: Veronika Palacios MD Date:12/05/2012 Attending Taxonomy Teacher: Operating Surgeon: MD Narendra Snyder MD POD [...] different from the or iginal. 8CSI ATTENDING ICE RESURFACING MACHINE OPERATORS DAILY PROGRESS NOTE Team Pager: [phone] Attending Pager: [phone] Author: ELMIRA SALGUERO MD ATTESTATION: I saw [...] CKD (baseline Cr ~1.5) who returned to [facility] [place] for shortness of [...] who is critically ill. Elmira Salguero MD [employer] editor Pulmonary and Critical Care Medicine [facility] DEPARTMENT: [facility], [facility]- [id number] Place of Service: - Date of Service: 12/05/2012 CSN: [id number] Modifiers:GC Resident Involved: yes Suggested CPT: 61957 Critical Care, Initial 30-74 minutes Mack Malagon MD - 11/24 9:33 PM PDT [facility] DE[facility]MENT: [facility], [facility]- [id number] Place of Service: - Date of Service: 12/04/2012 CSN: [id number] Modifiers:ADRIAN Resident Involved: yes Suggested CPT: 08471 Critical Care, Each additional 30 minutes x 4 93 minutes total time spent in Critical care independent of procedures. My impression, recent events and assesment are at the top of this note. Today's data which were reviewed are listed below the A&P I saw and examined JOSEF RAMOS with the [facility] housestaff. I agree with the written assess [...] hours (or 3 results) Recent Labs Basename 12/04/12190012/04/12 1631 12/04/12 1539 WBC 13.7* 20.8* 16.5* [...] Value Range Status 12/04/2012 Final Value: STUDY: CO CHEST 1 VIEW 12/04/12 15:25:00 INDICATION: Left [...] it where appropriate. Final/Electronically signed / TINY POWERSELIN 12/04/2012 16:37 PM pencer Short - 11/24 5:41 PM PDTTransthoracic echocardiogram completed. [...] his chest open Dispo: Critical Dictation # [id number] HELEN GEE MD Cardiothoracic Surgery Fellow Narendra [...] of time and then re-evaluation Family (Joanne Leatha) updated. Electronically signed Narendra Lunsford MD, FACS, FACC Chemical Production Technician, Department of Surgery Head, Adult Cardiac Surgery Co-Director, Multidisciplinary Heart Valve Clinic [facility] | [email or web address] Elmira Rutherford MD - 0 12/04/2012 3:16 PM PDT 8CSI ATTENDING ICE RESURFACING MACHINE OPERATORS DAILY PROGRESS NOTE Team Pager: [phone] Attending Pager: [phone] Author: ELMIRA SALGUERO MD ATTESTATION: I saw [...] CKD (baseline Cr ~1.5) who returned to [facility] [place] [facility] for shortness of [...] - consider HD if UOP does not pickle maker I have spent 120 minutes in the care and management of this patient (not including procedur es), who is critically ill. Elmira Salguero MD [employer] editor Pulmonary and Critical Care Medicine [facility] DEPARTMENT: [facility], [facility]- [id number] Place of Service: Date of Service: 12/04/2012 CSN: [id number] Modifiers:GC Resident Involved: yes Suggested CPT: 52912 Critical Care, Each additional 30 minutes x 2 and 00512 Critical Care, Initial 30-74 minutes aceJoseph roman - 3 10:15 AM PDT Cardiothoracic Surgery [...] CTA bilateral GI Obese, soft non-tender Skin [place]/warm/dry, sternal and leg incisions are c,d,i Chemistries: Last 72 Hours (or 3 results): Recent Labs Basename 12/04/12 0837 12/03/12 04012/02/12 0259 NA 139 140 139 K 5.1* 4.3 4.2 CL 105 106 103 BICARB 17* 27 26 BUN 45* 31* 29* CR 2.29* 1.90* 2.05* CA 8.5* 7.9* 7.9* MG 2.6* 2.4 2.1 PO4 4.8* 2.9 2.9 CBC with diff last 72 hours (or 3 results) Recent Labs Basename 12/04/12 0837 12/03/12 04012/02/12 0259 WBC 14.4* 7.6 12.3* HB 9.8* [...] to ICU (Electronically Signed) Joseph Lewis PA-C [facility] Cardiac Surgery Gloria Christie MD - 3 3:25 PM PDT Cardiothoracic Surgery Progress Note Procedure: CABG x 3 POD # 3 Past 24 hour Events Transfer to [facility], on heparin gtt for LV thrombus Subjective: [...] - 12/02/2012 5:40 PM PST 8CSI ATTENDING ICE RESURFACING MACHINE OPERATORS NIGHT NOTE Team Pager: [phone] Attending Pager: [phone] Date:12/02/2012 Author: DALJIT HARRELL MD Attestation: I [...] M.D. Department of Anesthesiology & Ольга-Operative Medicine [address] [facility]-[address] [place] [address] [facility] DEPARTMENT: [facility] ICU CARDIAC [[id number]] Place of Service:- Inpatient Date of Service: 12/02/2012 CSN: [id number] Suggested Modifier: Suggested CPT: TO BARISTA Data Below Used in this Assessment: Hemodynamics: [...] - 12/02/2012 10:07 AM PST 8CSI ATTENDING ICE RESURFACING MACHINE OPERATORS PROGRESS NOTE Team Pager: [phone] Attendin I saw and examined the patient [...] M.A. Department of Anesthesiology and Ольга-Operative Medicine [address] [facility]-[address] [place] [address] [facility] DEPARTMENT: [facility] ICU CARDIAC [[id number]] Place of Service:34772- Inpatient Date of Service: 12/02/2012 CSN: [id number] Suggested Modifier: GC - Resident Involved Suggested CPT: TO BARISTA 1: 24 PM Veronika Lloyd MD - 12/02/2012 9:18 AM PSTFormatting of this note might be differ ent from the original. 8CSI DAILY PROGRESS NOTE (Cardiac) Team Pager: [phone] Attendin Author: Veronika Palacios MD Date:12/02/2012 Attending Taxonomy Teacher: Operating Surgeon: MD Narendra Ellison MD POD#3 [...] s/p CABG x 3 At risk for HI, CVA, arrythmia, cardiogenic shock LV thrombus Asa, [...] of this note might be different from purvi sahni. 8CSI ATTENDING ICE RESURFACING MACHINE OPERATORS NIGHT NOTE Team Pager: [phone] Attending Pager: [phone] Date:12/01/2012 Author: DALJIT HARRELL MD Attestation: I [...] Department of Anesthesiology & Ольга-Operative Medicine [address] [id number] [place] [address] DEPARTMENT: [facility] ICU CARDIAC [[id number]] Place of Service:- Inpatient Date of Service: 12/01/2012 CSN: [id number] Suggested Modifier: Suggested CPT: TO BARISTA Data Below Used in this Assessment: Hemodynamics: [...] per 24 hour Intake 5239.01 ml Output 2009 ml Net 3229.01 ml ID: Temp (24hrs), [...] 12/01/12 0147 11/30/12 225 1 11/30/12 1151 11/30/12 0149 11/29/122109 NA -- -- -- -- 141 -- [...] 8[facility] DAILY PROGRESS NOTE (Cardiac) Team Pager: [phone] Attendin Author: Veronika Palacios MD Date:12/01/2012 Attending Taxonomy Teacher: Operating Surgeon: MD Narendra Ellison MD POD#2 [...] s/p CABG x 3 At risk for HI, CVA, arrythmia, cardiogenic shock LV thrombus Decrease [...] control: insulin infusion Veronika Palacios MD utch ens, Heidi Dunbar MD - 12/01/2012 7:35 AM PST 8CSI ATTENDING ICE RESURFACING MACHINE OPERATORS DAILY PROGRESS NOTE Team Pager: [phone] Attendin Date:12/01/2012 Author: HEIDI NIETO MD Attestation: [...] patient who is currently criti ryan ill. [facility] DEPARTMENT: [facility] ICU CARDIAC [[id number]] Place of Service:78066- Inpatient Date of Service: 12/01/2012 [facility]: [id number] Suggested Modifier: GC - Resident Involved Suggested CPT: TO BARISTA Hemodynamics: Hemodynamic Drips: Arterial BP Mean: 70 [...] - 11/30/2012 7:21 PM PST 8CSI ATTENDING ICE RESURFACING MACHINE OPERATORS NIGHT NOTE Team Pager: [phone] Attending Pager: [phone] Date:11/30/2012 Author: DALJIT HARRELL MD Attestation: I [...] 500, Insulin 7, Milrinone 0.125, NE 0.03, FILM EDITOR SUPERVISOR 2 Vent: 3L NC CI 3.1 SVO2 [...] Department of Anesthesiology & Ольга-Operative Medicine [address] [facility] [facility]-[address] [place] [id number] [place] [address] DEPARTMENT: [facility] ICU CARDIAC [[id number]] Place of Service:- Inpatient Date of Service: 11/30/2012 CSN: [id number] Suggested Modifier: GC - Resident Involved Suggested CPT: TO BARISTA Data Below Used in this Assessment: Hemodynamics: [...] Intake/Output Summary (Last 24 hours) at 11/30/12 1921 Last data filed at 11/30/12 1900 Gross per 24 hour Intake 20507.26 ml Output 4055 ml Net 7505.26 ml [...] - 11/30/2012 12:37 PM PST 8CSI ATTENDING ICE RESURFACING MACHINE OPERATORS PROGRESS NOTE Team Pager: [phone] Attendin Urine has large leukocyte esterase, bacteria, and 103 WBC. Presumptive urosepsis Continue abx and volume resuscitation Milrinone to support LV in setting of resuscitation 14 additional minutes spent in the care and management of this patient who is critically i ll Heidi Nieto M.D., M.A. Department of Anesthesiology and Ольга-Operative Medicine [address] [place] [id number] [place] [address] DEPARTMENT: [facility] ICU CARDIAC [[id number]] Place of Service:44558- Inpatient Date of Service: 11/30/2012 CSN: [id number] Suggested Modifier: None Suggested CPT: TO BARISTA 1: 59 PM Elba Grady - 11/30/2012 11:05 AM PSTTransthoracic echocardiogram completed. Final report to follow. Heidi Munoz MD - 03/2013 7:54 AM PST 8CSI ATTENDING ICE RESURFACING MACHINE OPERATORS DAILY PROGRESS NOTE Team Pager: [phone] Attendin Date:11/30/2012 Author: HEIDI NIETO MD Attestation: I saw and examined the patient at bedside with Dr cMgrath and agree with his f indings. I [...] patient who is currently criti ryan ill. [facility] DEPARTMENT: [facility] ICU CARDIAC [[id number]] Place of Service:- Inpatient Date of Service: 11/30/2012 CSN: [id number] Suggested Modifier: GC - Resident Involved Suggested CPT: TO BARISTA Hemodynamics: Hemodynamic Drips: Arterial BP Mean: 66 mmHg (11/30/12699) CVP Mean: 13 mmHg (11/30/12699) CO (cardiac output): 7.23 (11/30/12635) CI (cardiac index): 2.69 (11/30/12635) PAP Mean: 20 mmHg (11/30/12699) SVR (systemic vascular resistance): 675 (11/30/12635) epi 0.02 norepi 0.02 Respiratory: Recent Labs Basename 11/30/12 0148 11/30/12 0031 FIO2 40% 45% PH 7.31* 7.33* PCO2 35 34 PO2 129* 137* HCO3 17* 17* ABGEXCESS -7.9 -7.5 Renal: Intake/Output Summary (Last 24 hours) at 11/30/12 0754 Last data filed at 11/30/12 07 Gross per 24 hour Intake 6119.1 ml [...] 8[facility] DAILY PROGRESS NOTE (Cardiac) Team Pager: [phone] Attendin Author: MIHIR MCGRATH MD Date:11/30/2012 Attending Taxonomy Teacher: Operating Surgeon: MD Narendra Ellison MD POD# [...] s/p CABG x 3 At risk for HI, CVA, arrythmia, cardiogenic shock Will add milrinone [...] Glycemic control: insulin infusion MIHIR MCGRATH MD later, Tono alfonso MD - 11/29/2012 8:47 PM PSTInpatient Operative Note Patient Name: Josef Ramos Date of : [address] [facility] Medical Record Number: [id number] Date: 11/29/2012 Attending Surgeon: NARENDRA LUNSFORD MD Electric Sign Assembler(s): Kathy Castro PA-C No residents of the [...] The patient was positioned appropriately. The following sample steamer s were present during the team pause: Surgeon, language assistant, nursing, anesthesia, perfusion. Findings at Surgery: [...] Electronically signed Narendra Lunsford MD, FACS, FACC Chemical Production Technician, Department of Surgery Head, Adult Cardiac Surgery Co-Director, Multidisciplinary Heart Valve Clinic [facility] | [email or web address] oseph Lewis - 013 12:50 PM PST [...] CABG tomorrow (Electronically Signed) Joseph Lewis PA-C [facility] Cardiac Surgery oesph Hanks - 11/27/2012 11 :25 AM PSTTransthoracic [...] mg daily (Electronically Signed) Joseph Lewis PA-C [facility] Cardiac Surgery documented in this encounter Plan [...] + +--------+ + + + | IONGRANT VAZQUEZ WB, POC | Routin | 12/04/2012 [...] + + | BASIC METABOLIC SET | Routin [...] | + +--------+ + + + | CONFIRMATORY ABO/RH | Routin | [...] +--------+ + + + | VASC LAB VEIN | Routin [...] + + + | ANTIBODY SCREEN | Routin | 11/27/2012 | | Results for this | | | e | 11:24 AM | | procedure are in the | | | | PST | | results section. | + +--------+ + + + | TYPE AND SCREEN | Routin [...] + + | UA, DIPSTICK ONLY | Routin | 11/27/2012 | | Results for this | | | e | 1:49 AM | | procedure are in the | | | | PST | | results section. | + +--------+ + + + | TRANSTHORACIC | Routin | 11/27/2012 [...] +--------+ + + + | X-RAY CHEST 2 VIEW | [...] + + | INR | Routin | 11/26/2012 | | Results for this | | | e | 7:55 PM | | procedure are in the | | | | PST | | results section. | + +--------+ + + + | CBC, WITH | Routin | [...] + + + | HEMOGLOBIN A1C, | Routin | 11/26/2012 | | Results for this | | BLOOD | e | 7:55 PM | | procedure are in the | | | | PST | | results section. | + +--------+ + + + | ORDERS OTHER | | 11/26/2012 | | Results for this | | | | 12:00 AM | | procedure are in the | | | | PST | | results section. | + +--------+ + + + | ORDERS OTHER | | 11/26/2012 | | Results for this | | | | 12:00 AM | | procedure are in the | | | | PST | | results section. | + +--------+ + + + documented in this encounter Results PROCEDURE [...] AM PDT Date: 12/08/2012ttending | | Surgeon: Helen Gee MDAssistant(s): Kathy Miramontes, | | PAPreoperative Diagnosis(es):Open chest.Postoperative [...] did goahead and | | placed a [place] per Dr. Juan Manuel from anesthesiology in the left IJ.The prior [...] then made note of his hemodynamics andthe [place] parameters. The sternum | | was closed [...] in critical butstable condition.Helen Gee, MDCJW / [id number] / [id number] / | | 12845 / T: 12/08/2012 Electronically signedNarendra Lunsford MD, FACS, | | FACCAssociate Professor, Department of SurgeryUniversity [facility]als [facility], Adult Cardiac SurgeryCo-Director, | | Multidisciplinary Heart Valve [facility]rasPhone: [phone] | | [phone] | [email or web address] | |fluid and some clot. Although, this [...] note of his hemodynamics and | |the [place] parameters. The sternum was closed with three [...] Gee MD | |CJW / HS | |[id number] / [id number] / [id number] / | | | | | | | |Electronically signed | |Narendra Lunsford MD, FACS, FACC | |Chemical Production Technician, Department of Surgery | |Head, Adult Cardiac Surgery | |Co-Director, Multidisciplinary Heart Valve Clinic | |[facility] [place] | | | | | | |[email or web address] | + + CAPILLARY BLOOD GLUCOSE (NO [...] + + | Performing | Address | City/State/[facility]erc[facility] | Phone Number | | Organization | | | | + + + + + | [facility] | [address] | [place], [place] | | | KAILYN MAZA OF JOHN | [facility] | [address] | | | TESTS | | | | + + + + + CAPILLARY BLOOD GLUCOSE (NO CHG) POC (12/22/2012 9:45 AM PDT) + +---------+ [...] [facility] | [address] | [place], [place] | | | [facility] POINT OF CARE | [facility] | [address] | | | TESTS | | | [...] | + + + + + | [facility] | [address] | [place] [address] | | | SERVICES, CORE | PARK [...] | | | LABORATORY | | | [place] | | | SERVICES, | | | [...] [facility] | [address] | [place] [address] | | | SERVICES, TOI | PARK [...] mech. valves (2.5 - 3.5) INR | TANIA, TOI | + + + + + + + + | Performing | Address | City/State/Zipcode | Phone Number | | Organization | | | | + + + + + | [facility] | [address] | [place] [address] | | | SERVICES, TOI | CRYSTAL [...] | + + + + + | [facility] | [address] | [place] [address] | | | TANIA, CORE | PARK [...] CARLOS | [address] | [place], [place] | | | KAILYN MAZA OF JOHN | [facility] | [address] | | | TESTS | | | [...] (H) | 60 - 99 mg/dL | [facility] - | | | GLUCOSE, | | [...] [facility] | [address] | [place], [place] | | | [place] POINT OF CARE | [address] | [address] | | | TESTS | | | [...] G[facility] | [address] | [place], [place] | | | KAILYN MAZA OF JOHN | [address] | [address] | | | TESTS | | | [...] CARLOS | [address] | [place], [place] | | | SHAUNNA HASTY OF [facility] | [address] | [address] | | | TESTS | | | [...] | | | LABORATORY | | | [place] | | | SERVICES, | | | [...] | + + + + + | [facility] | [address] | [place] [address] | | | SERVICES, CORE | CRYSTAL [...] | + + + + + | [facility] | [address] [facility] | [place] [address] | | | SERVICES, TOI | CRYSTAL [...] | + + + + + | [facility] | [address] | [place] [address] | | | TANIA, TOI | CRYSTAL [...] - [place] | [address] | [place], [place] | | | SHA[place]NA POINT OF CARE | [address] | [address] | | | TESTS | | | [...] (H) | 60 - 99 mg/dL | [facility] - | | | GLUCOSE, | | [...] + + + | [facility] | [address] | [place], [place] | | | KAILYN MAZA OF [facility] | [address] | [address] | | | TESTS | | | [...] [place] | [address] | [place], [place] | | | KAILYN MAZA OF JOHN | [address] | [address] | | | TESTS | | | [...] [facility] | [address] | [place] [address] | | | SERVICES, CORE | CRYSTAL [...] - CAR[facility] | [address] | [place], [place] | | | KAILYN MAZA OF CARE | [facility] | [address] | | | TESTS | | | [...] (H) | 60 - 99 mg/dL | [facility] - | | | GLUCOSE, | | [...] + + | [facility] | [address] | [place], [place] | | | SHA[place]NA POINT OF CARE | [address] | [address] | | | TESTS | | | [...] | + + + + + | [facility] | [address] | [place] [address] | | | SERVICES, CORE | CRYSTAL [...] | + + + + + | [facility] | [address] | [place] [address] | | | SERVICES, CORE | CRYSTAL [...] | | | LABORATORY | | | [place] | | | SERVICES, | | | [...] | + + + + + | [facility] | [address] | [place] [address] | | | SERVICES, CORE | CRYSTAL [...] (H) | 60 - 99 mg/dL | [facility] - | | | GLUCOSE, | | [...] GONZALEZ | [address] | [place], [place] | | | KAILYN MAZA OF CARE | [address] | [address] | | | TESTS | | | [...] MARKATH[facility]AM | [address] [address] | [place], [place] | | | KAILYN MAZA OF JOHN | [address] | [address] | | | TESTS | | | [...] | + + + + + | [facility] | [address] [facility] [facility] | [place] [address] | | | TOI MARIN | CRYSTAL [...] MARQUAM | [address] | [place], [place] | | | SHA[facility]NA POINT OF CARE | [address] | [address] | | | TESTS | | | [...] GONZALEZ | [address] | [place], [place] | | | [facility] POINT OF CARE | [address] | [address] | | | TESTS | | | | + + + + + X-RAY PORTABLE CHEST 1 VIEW (12/19/2012 6:46 AM PDT) + + + + + + | Component | Value | Ref Range | Performed | Pathologist | | | | | At | Signature | + + + + + + | X-RAY | STUDY: CO CHEST 1 VIEW | | | | [...] | + + + + + | [facility] | [address] | [place] [address] | | | SERVICES, CORE | CRYSTAL [...] MARQUAM | [address] | [place], [place] | | | [facility]YN [facility] CARE | [address] | [address] | | | TESTS | | | [...] | + + + + + | [facility] | [address] [facility] | [place] [address] | | | TANIA, TOI | PARK [...] | + + + + + | [facility] | [address] | [place] [address] | | | TOI MARIN | CRYSTAL [...] [facility] | [address] | [place] [address] | | | SERVICES, CORE | PARK [...] (H) | 60 - 99 mg/dL | [facility] | | | PLASMA | | | [...] | | | LABORATORY | | | [place] | | | SERVICES, | | | [...] [facility] | [address] | [place] [address] | | | SERVICES, CORE | PARK [...] + | [place] [facility] - | [address] | [place] [address] | | | [place] | | | [...] | + + + + + | [facility] | [address] | [place] [address] | | | DIAGNOSTIC | [address] [...] GONZALEZ | [address] | [place], [place] | | | KAILYN MAZA OF JOHN | [address] | [address] | | | TESTS | | | [...] MARQUAM | [address] | [place] | | | [facility] CARE | [address] | [address] | | | TESTS | | | [...] LUPEAM | [address] | [place], [place] | | | [facility] CARE | [address] | [address] | | | TESTS | | | [...] GONZALEZ | [address] | [place] | | | KAILYN MAZA OF JOHN | [address] | [address] | | | TESTS | | | | + + + + + X-RAY PORTABLE CHEST 1 VIEW (12/18/2012 6:39 AM PDT) + + + + + + | Component | Value | Ref Range | Performed | Pathologist | | | | | At | Signature | + + + + + + | X-RAY | STUDY: CO CHEST 1 VIEW | | | | [...] [facility] | [address] | [place] [address] | | | SERVICES, CORE | CRYSTAL [...] | + + + + + | [facility] | [address] | [place] [address] | | | SERVICES, CORE | PARK [...] | + + + + + | [facility] | [address] | [place] [address] | | | SERVICES, CORE | PARK [...] | + + + + + | [facility] | [address] | [place] [address] | | | TANIA, TOI | CRYSTAL [...] | | | LABORATORY | | | [place] | | | SERVICES, | | | [...] | + + + + + | [facility] | [address] | [place] [address] | | | SERVICES, CORE | PARK [...] CARLOS | [address] | [place], [place] | | | KAILYN MAZA OF JOHN | [address] | [address] | | | TESTS | | | [...] - CARLOS | [address] | [place], [place] | | | K[facility]YN MAZA OF CARE | [facility] | [address] | | | TESTS | | | [...] (H) | 60 - 99 mg/dL | [facility] - | | | GLUCOSE, | | [...] GONZALEZ | [address] | [place], [place] | | | [facility]YN [facility] CARE | [facility] | [address] | | | TESTS | | | [...] CARLOS | [address] | [place], [place] | | | [facility] CARE | [address] | [address] | | | TESTS | | | | + + + + + X-RAY PORTABLE CHEST 1 VIEW (12/17/2012 7:17 AM PDT) + + + + + + | Component | Value | Ref Range | Performed | Pathologist | | | | | At | Signature | + + + + + + | X-RAY | STUDY: CO CHEST 1 VIEW | | | | [...] | | | | | Preliminary / BALBINA | | | | | | GERMÁN [...] [facility] | [address] | [place] [address] | | | SERVICES, CORE | PARK [...] | + + + + + | [facility] | [address] | [place] [address] | | | SERVICESTOI | [address] [...] [facility] | [address] | [place] [address] | | | SERVICES, CORE | PARK [...] (H) | 60 - 99 mg/dL | [facility] | | | PLASMA | | | [...] | | | LABORATORY | | | [place] | | | SERVICES, | | | [...] [facility] | [address] | [place] [address] | | | SERVICES, CORE | PARK [...] MARQUAM | [address] | [place] | | | SHA[facility]NA POINT OF CARE | [address] | [address] | | | TESTS | | | [...] + + + | BRIDGETTE GONZALE[facility] | [address] | [place] | | | KAILYN MAZA OF [facility] | [address] | [address] | | | TESTS | | | [...] MARQUAM | [address] | [place], [place] | | | KAILYN MAZA OF JOHN | [facility] | [address] | | | TESTS | | | [...] BRIDGETTE GONZALEZ | [address] | [place] | | | SHAUNNA POINT OF [facility] | [facility] | [address] | | | TESTS | | | | + + + + + X-RAY PORTABLE CHEST 1 VIEW (12/16/2012 7:07 AM PDT) + + + + + + | Component | Value | Ref Range | Performed | Pathologist | | | | | At | Signature | + + + + + + | X-RAY | STUDY: CO CHEST 1 VIEW | | | | [...] [facility] | [address] | [place] [address] | | | SERVICES, CORE | PARK [...] [facility] | [address] | [place] [address] | | | SERVICES, CORE | PARK [...] [facility] | [address] | [place] [address] | | | SERVICES, CORE | PARK [...] | + + + + + | [facility] | [address] | [place] [address] | | | SERVICES, CORE | CRYSTAL [...] | | | LABORATORY | | | [place] | | | SERVICES, | | | [...] | + + + + + | [facility] | [address] | [place] [address] | | | SERVICES, CORE | CRYSTAL [...] (H) | 60 - 99 mg/dL | [facility] - | | | GLUCOSE, | | [...] GONZALEZ | [address] | [place], [place] | | | [facility] CARE | [address] | [address] | | | TESTS | | | [...] MARQUAM | [address] | [place] | | | [facility] CARE | [address] | [address] | | | TESTS | | | [...] for children less than 6 months | [facility] | | can be found in the Hemostasis Section general instructions of the | LABORATORY | | [facility] Lab Manual: | TANIA CORE | | [email or web address] | | + + + + + + + + | Performing | Address | City/State/Zipcode | Phone Number | | Organization | | | | + + + + + | [facility] | [address] | [place] [address] | | | TOI MARIN | CRYSTAL [...] CARLOS | [address] | [place] | | | SHAUNNA HASTY OF [facility] | [address] | [address] | | | TESTS | | | [...] | + + + + + | [facility] | [address] | [place] [address] | | | SERVICES, CORE | CRYSTAL [...] (H) | 60 - 99 mg/dL | [facility] - | | | GLUCOSE, | | [...] GONZALEZ | [address] | [place], [place] | | | SHA[facility]NA POINT OF CARE | [address] | [address] | | | TESTS | | | [...] | + + + + + | [facility] | [address] | [place] [address] | | | TANIA, TOI | CRYSTAL [...] GONZALEZ | [address] | [place] | | | SHAUNNA POINT OF [facility] | [address] | [address] | | | TESTS | | | | + + + + + X-RAY PORTABLE CHEST 1 VIEW (12/15/2012 5:51 AM PDT) + + + + + + | Component | Value | Ref Range | Performed | Pathologist | | | | | At | Signature | + + + + + + | X-RAY | STUDY: CO CHEST 1 VIEW | | | | [...] | | | | | | FUSS 12/15/2012 10:27 AM | | | | [...] [facility] | [address] | [place] [address] | | | SERVICES, CORE | PARK [...] [facility] | [address] | [place] [address] | | | SERVICES, CORE | PARK [...] [facility] | [address] | [place] [address] | | | SERVICES, CORE | CRYSTAL [...] | | | LABORATORY | | | [place] | | | SERVICES, | | | [...] [facility] | [address] | [place] [address] | | | SERVICES, TOI | CRYSTAL [...] | + + + + + | [facility] | [address] | [place] [address] | | | [facility], TOI | [address] | | | + + + + + CAPILLARY BLOOD GLUCOSE (NO CHG), POC (12/15/2012 1:47 AM PDT) + +---------+ + + + | Component | Value | Ref Range | Performed | Pathologist | | | | | At | Signature | + +---------+ + + + | BLOOD | 172 (H) | 60 - 99 mg/dL | [facility] - | | | GLUCOSE, | | [...] GONZALEZ | [address] | [place], [place] | | | SHA[facility]NA POINT OF CARE | [address] | [address] | | | TESTS | | | [...] CARLOS | [address] | [place], [place] | | | KAILYN MAZA OF JOHN | [address] | [address] | | | TESTS | | | [...] | + + + + + | [facility] | [address] [facility] | [place] [address] | | | SERVICES, CORE | PARK [...] GONZALEZ | [address] | [place] | | | SHAUNNA POINT OF [facility] | [address] | [address] | | | TESTS | | | [...] | + + + + + | [place] [facility] - | [address] | [place] [address] | | | [place] | | | [...] MARQUAM | [address] | [place] | | | [facility]YN MA[facility] CARE | [address] | [address] | | | TESTS | | | [...] | + + + + + | [facility] | [address] | [place] [address] | | | TOI MARIN | CRYSTAL [...] (H) | 60 - 99 mg/dL | [facility] - | | | GLUCOSE, | | [...] LUPEAM | [address] | [place], [place] | | | K[facility]YN MAZA [facility] CARE | [address] | [address] | | | TESTS | | | [...] GONZALEZ | [address] | [place], [place] | | | KAILYN MAZA OF JOHN | [facility] | [address] | | | TESTS | | | [...] LUPEAM | [address] | [place], [place] | | | KAILYN MAZA OF CARE | [facility] | [address] | | | TESTS | | | [...] (H) | 60 - 99 mg/dL | [facility] - | | | GLUCOSE, | | [...] GONZALEZ | [address] | [place] | | | K[facility]YN [facility] CARE | [address] | [address] | | | TESTS | | | | + + + + + X-RAY PORTABLE CHEST 1 VIEW (12/14/2012 5:32 AM PDT) + + + + + + | Component | Value | Ref Range | Performed | Pathologist | | | | | At | Signature | + + + + + + | X-RAY | STUDY: CO CHEST 1 VIEW | | | | [...] GONZALEZ | [address] | [place], [place] | | | SHAUNNA POINT OF CARE | [address] | [address] | | | TESTS | | | [...] CARLOS | [address] | [place] | | | SHAUNNA HASTY OF [facility] | [facility] | [address] | | | TESTS | | | [...] [facility] | [address] | [place] [address] | | | SERVICES, CORE | PARK [...] | + + + + + | [facility] | [address] | [place] [address] | | | SERVICESTOI | [address] [...] | + + + + + | [facility] | [address] | [place] [address] | | | SERVICES, CORE | PARK [...] | + + + + + | [facility] | [address] | [place] [address] | | | SERVICES, CORE | CRYSTAL [...] CARLOS | [address] | [place], [place] | | | KAILYN MAZA OF JOHN | [address] | [address] | | | TESTS | | | [...] CARLOS | [address] | [place], [place] | | | KAILYN MAZA OF CARE | [facility] | [address] | | | TESTS | | | | + + + + + CAPILLARY BLOOD GLUCOSE (NO CHG), POC (12/13/2012 7:47 PM PDT) + +-------+ + + + | Component | Value | Ref Range | Performed | Pathologist | | | | | At | Signature | + +-------+ + + + | BLOOD | 93 | 60 - 99 mg/dL | BRIDGETTE [...] GONZALEZ | [address] | [place], [place] | | | SHAUNNA POINT OF CARE | [address] | [address] | | | TESTS | | | [...] GONZALEZ | [address] | [place], [place] | | | KAILYN MAZA OF JOHN | [address] | [address] | | | TESTS | | | [...] CARLOS | [address] | [place], [place] | | | KAILYN MAZA OF JOHN | [facility] | [address] | | | TESTS | | | [...] (H) | 60 - 99 mg/dL | [facility] - | | | GLUCOSE, | | [...] GONZALEZ | [address] | [place], [place] | | | SHAUNNA POINT OF CARE | [address] | [address] | | | TESTS | | | [...] | + + + + + | [facility] | [address] | [place] [address] | | | SERVICES, CORE | CRYSTAL [...] | + + + + + | [facility] | [address] | [place] [address] | | | SERVICES, CORE | CRYSTAL [...] MARQUAM | [address] | [place], [place] | | | SHAUNNA POINT OF CARE | [address] | [address] | | | TESTS | | | [...] [facility] | [address] | [place] [address] | | | SERVICES, CORE | CRYSTAL [...] | + + + + + | [facility] | [address] | [place] [address] | | | TANIA, TOI | CRYSTAL [...] (H) | 60 - 99 mg/dL | [facility] - | | | GLUCOSE, | | [...] + + + | BRIDGETTE GONZALEZ | [address] | [place], [place] | | | KAILYN MAZA OF [facility] | [address] | [address] | | | TESTS | | | [...] + + + | BRIDGETTE GONZALEZ | [address] | [place] | | | SHAUNNA POINT OF CARE | [address] | [address] | | | TESTS | | | [...] | + + + + + | [facility] | [address] | [place] [address] | | | SERVICES, CORE | CRYSTAL [...] | + + + + + | [facility] | [address] | [place] [address] | | | TOI MARIN | CRYSTAL [...] mech. valves (2.5 - 3.5) INR | TANIA, CORE | + + + + + + + + | Performing | Address | City/State/Zipcode | Phone Number | | Organization | | | | + + + + + | [facility] | [address] [facility] | [place] [address] | | | SERVICES, TOI | CRYSTAL [...] [facility] | [address] | [place] [address] | | | SERVICES, CORE | PARK [...] | + + + + + | [facility] | [address] | [place] [address] | | | SERVICES, CORE | CRYSTAL [...] (H) | 60 - 99 mg/dL | [facility] - | | | GLUCOSE, | | [...] GONZALEZ | [address] | [place] | | | [facility]YN MA[facility] CARE | [address] | [address] | | | TESTS | | | [...] MARQUAM | [address] | [place], [place] | | | [facility]YN MAZA [facility] CARE | [address] | [address] | | | TESTS | | | [...] MARQUAM | [address] | [place], [place] | | | KAILYN MAZA OF CARE | [facility] | [address] | | | TESTS | | | [...] (H) | 60 - 99 mg/dL | [facility] - | | | GLUCOSE, | | [...] LUPEAM | [address] | [place] | | | SHAUNNA POINT OF CARE | [address] | [address] | | | TESTS | | | [...] GONZALEZ | [address] | [place], [place] | | | KAILYN MAZA OF JOHN | [facility] | [address] | | | TESTS | | | [...] | + + + + + | [facility] | [address] | [place] [address] | | | TANIA, TOI | CRYSTAL [...] BRIDGETTE GONZALEZ | [address] | [place] | | | SHAUNNA POINT OF CARE | [address] | [address] | | | TESTS | | | [...] | | | | | zen / ULISES GRULLON | | | | [...] | | + +---------+ + + | [facility] DEPARTMENT OF | | | | | [...] [facility] | [address] | [place] [address] | | | SERVICES, CORE | CRYSTAL [...] | + + + + + | [facility] | [address] | [place] [address] | | | SERVICES, TOI | CRYSTAL [...] MARQUAM | [address] | [place], [place] | | | KAILYN MAZA OF CARE | [facility] | [address] | | | TESTS | | | [...] GONZALEZ | [address] | [place], [place] | | | SHAUNNA POINT OF CARE | [address] | [address] | | | TESTS | | | [...] | + + + + + | [facility] | [address] [facility] | [place] [address] | | | SERVICES, CORE | CRYSTAL [...] | | | POC | | | AKILYN MAZA | | | | | | [...] MARQUAM | [address] | [place] | | | SHAUNNA POINT OF CARE | [address] | [address] | | | TESTS | | | [...] (H) | 60 - 99 mg/dL | [facility] - | | | GLUCOSE, | | [...] [facility] | [address] | [place] | | | KAILYN MAZA OF JOHN | [facility] | [address] | | | TESTS | | | [...] GONZALEZ | [address] | [place] | | | SHAUNNA POINT OF CARE | [address] | [address] | | | TESTS | | | [...] [facility] | [address] | [place] [address] | | | SERVICES, TOI | PARK [...] [facility] | [address] | [place] [address] | | | SERVICES, CORE | PARK [...] | + + + + + | [facility] | [address] | [place] [address] | | | SERVICES, CORE | CRYSTAL [...] (H) | 60 - 99 mg/dL | [facility] - | | | GLUCOSE, | | [...] GONZALEZ | [address] | [place] | | | KAILYN MAZA OF CARE | [address] | [address] | | | TESTS | | | [...] MARQUAM | [address] | [place], [place] | | | SHAUNNA POINT OF CARE | [address] | [address] | | | TESTS | | | | + + + + + X-RAY PORTABLE CHEST 1 VIEW (12/12/2012 5:53 AM PDT) + + + + + + | Component | Value | Ref Range | Performed | Pathologist | | | | | At | Signature | + + + + + + | X-RAY | EXAM: CO CHEST 1 VIEW | | | | [...] Vinnie | | | | | | Kelli Kern. I have | | | | | [...] [facility] | [address] | [place] [address] | | | TOI MARIN | [address]YSTAL [...] | + + + + + | [facility] | [address] | [place] [address] | | | SERVICES, CORE | CRYSTAL [...] | + + + + + | [facility] | [address] | [place] [address] | | | SERVICES, TOI | CRYSTAL [...] | SERVICES, | | | | on 12/12/2013a 0437. | | CORE | | + [...] | + + + + + | [facility] | [address] | [place] [address] | | | SERVICES, CORE | CRYSTAL [...] | + + + + + | [facility] | [address] | [place] [address] | | | SERVICES, CORE | CRYSTAL [...] [facility] | [address] | [place] [address] | | | SERVICES, CORE | PARK [...] | + + + + + | [facility] | [address] | [place] [address] | | | SERVICES, CORE | PARK [...] | + + + + + | [facility] | [address] | [place] [address] | | | SERVICES, CORE | CRYSTAL [...] MARQUAM | [address] | [place] | | | KAILYN MAZA OF CARE | [address] | [address] | | | TESTS | | | [...] MARQUAM | [address] | [place], [place] | | | KAILYN MAZA OF CARE | [address] | [address] | | | TESTS | | | [...] GONZALEZ | [address] | [place], [place] | | | SHA[facility]NA POINT OF CARE | [address] | [address] | | | TESTS | | | [...] MARKATHERINEAM | [address] | [place] | | | KAILYN MAZA OF CARE | [address] | [address] | | | TESTS | | | [...] CARLOS | [address] | [place], [place] | | | SHA[facility]NA POINT OF CARE | [address] | [address] | | | TESTS | | | [...] + + | [facility] | [address] [facility] | [place] [address] | | | SERVICES, TOI | PARK [...] | + + + + + | [facility] | [address] [facility] | [place] [address] | | | SERVICES, CORE | CRYSTAL [...] | + + + + + | [facility] | [address] | [place] [address] | | | SERVICES, CORE | CRYSTAL [...] MARQUAM | [address] | [place] | | | KAILYN MAZA OF JOHN | [address] | [address] | | | TESTS | | | [...] | + + + + + | [facility] | [address] | [place] [address] | | | TANIA, CORE | CRYSTAL [...] CARLOS | [address] | [place], [place] | | | [facility]ARE | [address] | [address] | | | TESTS | | | [...] (H) | 60 - 99 mg/dL | [facility] - | | | GLUCOSE, | | [...] GONZALEZ | [address] | [place], [place] | | | KAILYN MA[facility] | [address] | [address] | | | TESTS | | | [...] MARQUAM | [address] | [place], [place] | | | [facility] CARE | [address] | [address] | | | TESTS | | | [...] | + + + + + | [facility] | [address] | [place] [address] | | | SERVICES, CORE | PARK [...] [facility] | [address] | [place] [address] | | | SERVICES, CORE | PARK [...] | + + + + + | [facility] | [address] | [place] [address] | | | SERVICES, CORE | CRYSTAL [...] (H) | 60 - 99 mg/dL | [facility] - | | | GLUCOSE, | | [...] GONZALEZ | [address] | [place], [place] | | | KAILYN MAZA OF [facility] | [address] | [address] | | | TESTS | | | [...] MARQUAM | [address] | [place], [place] | | | [facility] | [address] | [address] | | | TESTS | | | [...] - CARLOS | [address] | [place], [place] | | | [facility] | [address] | [address] | | | TESTS | | | [...] [facility] | [address] | [place] [address] | | | SERVICES, CORE | PARK [...] | + + + + + | [facility] | [address] | [place] [address] | | | SERVICES, CORE | CRYSTAL [...] | + + + + + | [facility] | [address] [facility] | [place] [address] | | | SERVICES, TOI | CRYSTAL [...] | + + + + + | [facility] | [address] | [place] [id number] | | | SERVICES, CORE | CRYSTAL [...] MARKATHERINEAM | [address] | [place] | | | [facility] | [address] | [address] | | | TESTS | | | [...] MARQUAM | [address] | [place], [place] | | | KAILYN MAZA [facility] | [address] | [address] | | | TESTS | | | [...] GONZALEZ | [address] | [place], [place] | | | KAILYN MAZA [facility] | [address] | [address] | | | TESTS | | | [...] [facility] | [address] | [place] [address] | | | SERVICES, TOI | PARK [...] | + + + + + | [facility] | [address] | [place] [address] | | | SERVICES, CORE | CRYSTAL [...] [facility] | [address] | [place] [address] | | | SERVICES, CORE | PARK [...] [facility] | [address] | [place] [address] | | | SERVICES, CORE | PARK [...] CARLOS | [address] | [place], [place] | | | [facility] | [address] | [address] | | | TESTS | | | [...] | + + + + + | [facility] | [address] | [place] [address] | | | SERVICES, CORE | PARK [...] (H) | 60 - 99 mg/dL | [facility] - | | | GLUCOSE, | | [...] GONZALEZ | [address] | [place], [place] | | | KAILYN MAZA OF [facility] | [facility] | [address] | | | TESTS | | | | + + + + + CAPILLARY BLOOD GLUCOSE (NO CHG) POC (12/11/2012 6:57 AM PDT) + +---------+ [...] MARQUAM | [address] | [place], [place] | | | [facility] | [facility] | [address] | | | TESTS | | | | + + + + + ATIII ACTIVITY, PLASMA (12/11/2012 6:54 AM PDT) + + + + + + | Component | Value | Ref Range | Performed | Pathologist | | | | | At | Signature | + + + + + + | ATIII | 0.56 (LL) | 0.86 - 1.18 | [facility] | | | ACTIVITY, | | U/mL [...] for children less than 6 months | [facility] | | can be found in the Hemostasis Section general instructions of the | LABORATORY | | [facility] Lab Manual: | SERVICES, CORE | | [email or web address] | | + + + + + + + + | Performing | Address | City/State/Zipcode | Phone Number | | Organization | | | | + + + + + | [facility] | [address] | [place] [address] | | | SERVICES, CORE | PARK [...] [facility] | [address] | [place] [address] | | | SERVICES, CORE | PARK [...] [facility] | [address] | [place] [address] | | | SERVICES, CORE | PARK [...] | + + + + + | [facility] | [address] | [place] [address] | | | SERVICES, TOI | CRYSTAL [...] [facility] | [address] | [place] [address] | | | SERVICES, CORE | [address] | | | + + + + + X-RAY PORTABLE CHEST 1 VIEW (12/11/2012 6:00 AM PDT) + + + + + + | Component | Value | Ref Range | Performed | Pathologist | | | | | At | Signature | + + + + + + | X-RAY | STUDY: CO CHEST 1 VIEW | | | | [...] | | + +---------+ + + | [facility] DEPARTMENT OF | | | | | [...] [facility] | [address] | [place], [place] | | | KAILYN MAZA OF CARE | [address] | [address] | | | TESTS | | | [...] GONZALEZ | [address] | [place], [place] | | | KAILYN MAZA OF CARE | [address] | [address] | | | TESTS | | | [...] [facility] | [address] | [place], [place] | | | KAILYN MAZA OF CARE | [address] | [address] | | | TESTS | | | [...] [facility] | [address] | [place] [address] | | | SERVICES, CORE | PARK [...] [facility] | [address] | [place] [address] | | | SERVICES, CORE | CRYSTAL [...] | + + + + + | [facility] | [address] [facility] | [place] [address] | | | SERVICES, CORE | PARK [...] [facility] | [address] | [place] [address] | | | SERVICES, CORE | PARK [...] | + + + + + | [facility] | [address] | [place] [address] | | | SERVICES, CORE | [address] | | | + + + + + MAGNESIUM, PLASMA (12/11/2012 2:00 AM PDT) + +-------+ + + + | Component | Value | Ref Range | Performed | Pathologist | | | | | At | Signature | + +-------+ + + + | MAGNESIUM,P | 2.4 | 1.8 - 2.5 mg/dL | [facility] | | | ELINAMA | | | [...] | + + + + + | [facility] | [address] | [place] [address] | | | SERVICES, CORE | CRYSTAL [...] + + | Performing | Address | City/State/[facility] | Phone Number | | Organization | | | | + + + + + | [facility] | [address] | [place], [place] | | | KAILYN MAZA OF JOHN | [facility] | [address] | | | TESTS | | | [...] LUPEAM | [address] | [place], [place] | | | KAILYN MAZA OF JOHN | [facility] | [address] | | | TESTS | | | [...] | + + + + + | [facility] | [address] | [place] [address] | | | SERVICES, CORE | CRYSTAL [...] (H) | 60 - 99 mg/dL | [facility] - | | | GLUCOSE, | | [...] GONZALEZ | [address] | [place], [place] | | | SHA[facility]NA POINT OF CARE | [address] | [address] | | | TESTS | | | | + + + + + TRANSTHORACIC ECHOCARDIOGRAM, ADULT (12/11/2012 12:00 AM PDT) + + + | Narrative | Performed At | + + + | | | | | | + + + + + | Procedure Note | + + | Diana Farley - 12/11/2012 3:52 PM PDT | + [...] GONZALEZ | [address] | [place], [place] | | | KAILYN MAZA OF JOHN | [facility] | [address] | | | TESTS | | | [...] | + + + + + | [facility] | [address] | [place] [address] | | | SERVICES, CORE | CRYSTAL [...] (H) | 60 - 99 mg/dL | [facility] - | | | GLUCOSE, | | [...] GONZALEZ | [address] | [place], [place] | | | [facility] POINT [facility] CARE | [address] | [address] | | | TESTS | | | [...] | + + + + + | [facility] | [address] | [place] [address] | | | SERVICES, CORE | CRYSTAL [...] | | | TOI | | + +---------+ + + + + + | Specimen | + + | Blood - Blood | + + + + + + + | Performing | Address | City/State/Zipcode | Phone Number | | Organization | | | | + + + + + | [facility] | [address] | [place] [address] | | | SERVICES, CORE | PARK [...] [facility] | [address] | [place] [address] | | | TANIA, TOI | CRYSTAL [...] [facility] | [address] | [place], [place] | | | [facility] POINT OF CARE | [address] | [address] | | | TESTS | | | [...] GONZALEZ | [address] | [place], [place] | | | [facility] POINT OF CARE | [address] | [address] | | | TESTS | | | [...] | + + + + + | [facility] | [address] | [place] [address] | | | SERVICES, CORE | CRYSTAL [...] | | | TOI | | + +---------+ + + + + + | Specimen | + + | Blood - Blood | + + + + + + + | Performing | Address | City/State/Zipcode | Phone Number | | Organization | | | | + + + + + | [facility] | [address] | [place] [address] | | | SERVICES, CORE | CRYSTAL [...] [facility] | [address] | [place] [address] | | | SERVICES, CORE | PARK [...] [facility] | [address] | [place] [address] | | | TOI MARIN | CRYSTAL [...] | + + + + + | [facility] | [address] | [place] [address] | | | TOI MARIN | CRYSTAL [...] (H) | 60 - 99 mg/dL | [facility] - | | | GLUCOSE, | | [...] GONZALEZ | [address] | [place], [place] | | | KAILYN MAZA OF CARE | [address] | [address] | | | TESTS | | | | + + + + + X-RAY PORTABLE CHEST 1 VIEW (12/10/2012 5:27 PM PDT) + + + + + + | Component | Value | Ref Range | Performed | Pathologist | | | | | At | Signature | + + + + + + | X-RAY | STUDY:CO CHEST 1 VIEW | | | | [...] | | + +---------+ + + | [facility] DEPARTMENT OF | | | | | [...] | + + + + + | [facility] | [address] | [place] [address] | | | SERVICES, TOI | PARK [...] [facility] | [address] | [place], [place] | | | [facility] | [address] | [address] | | | TESTS | | | | + + + + + IP CONSULT TO PICC TEAM (12/10/2012 3:57 PM PDT) + + + | Narrative | Performed At | + + + | Anais Vieyra 12/10/2012 3:57 PM PICC INSERTION | | | DOCUMENTATION NOTE Today | | | | | | s Date: 12/10/2012 Start Time: 1544 Patient Location (Unit/Room #) | | | 8 [facility] room 7 Diagnosis: [id number] Coronary artery disease Indications: | | | [...] blood return. A | | | 5 Salvadorean Triple lumen Power PICC SOLO catheter was [...] PICC | | | Catheter Lot Number [id number]; There was good blood return from all [...] #) 8 CICU room 7Diagnosis: | | [id number] Coronary artery diseaseIndications: (Select all that apply) [...] non-pulsatile blood return. A 5 | | Salvadorean Triple lumen Power PICC SOLO catheter was placed using the modified Seldinger | | technique on the third attempt. At the time of insertion, vessel size was appropriate | | for the catheter size. PICC Catheter: A 55cm catheter was used for placement. The | | PICC catheter was trimmed 0cm, remaining catheter length 55 cm. PICC Catheter Lot | | Number [id number]; There was good blood return from all [...] + + + + | XRAY | STUDY:CO CHEST PICC LINE | | | | [...] | | + +---------+ + + | [facility] DEPARTMENT OF | | | | | [...] (H) | 60 - 99 mg/dL | [facility] - | | | GLUCOSE, | | [...] [facility] | [address] | [place], [place] | | | SHA[facility]NA POINT OF CARE | [address] | [address] | | | TESTS | | | [...] + + + | [facility] | [address] | [place], [place] | | | [facility] POINT OF CARE | [address] | [address] | | | TESTS | | | [...] [facility] | [address] | [place] [address] | | | SERVICES, CORE | PARK [...] - CARLOS | [address] | [place], [place] | | | SHA[facility]NA POINT OF CARE | [address] | [address] | | | TESTS | | | [...] | + + + + + | [facility] | [address] | [place] [address] | | | SERVICES, CORE | CRYSTAL [...] GONZALEZ | [address] | [place], [place] | | | KAILYN MAZA OF JOHN | [facility] | [address] | | | TESTS | | | [...] [facility] | [address] | [place], [place] | | | [facility] POINT OF CARE | [address] | [address] | | | TESTS | | | | + + + + + X-RAY PORTABLE CHEST 1 VIEW (12/10/2012 5:41 AM PDT) + + + + + + | Component | Value | Ref Range | Performed | Pathologist | | | | | At | Signature | + + + + + + | X-RAY | STUDY: CO CHEST 1 VIEW | | | | [...] | + + + + + | [facility] | [address] | [place], [place] | | | KAILYN MAZA OF CARE | [address] | [address] | | | TESTS | | | [...] [facility] | [address] | [place], [place] | | | SHA[facility]NA POINT OF CARE | [address] | [address] | | | TESTS | | | [...] CARLOS | [address] | [place], [place] | | | WE[facility] HASTY OF [facility] | [facility] | [address] | | | TESTS | | | [...] [facility] | [address] | [place] [address] | | | SERVICES, CORE | PARK [...] [facility] | [address] | [place] [address] | | | SERVICES, CORE | PARK [...] [facility] | [address] | [place] [address] | | | SERVICES, CORE | PARK [...] | + + + + + | [facility] | [address] | [place] [address] | | | SERVICES, CORE | PARK [...] [facility] | [address] | [place] [address] | | | SERVICES, CORE | CRYSTAL [...] | + + + + + | [facility] | [address] | [place] [address] | | | SERVICES, CORE | CRYSTAL [...] (H) | 60 - 99 mg/dL | [facility] - | | | GLUCOSE, | | [...] GONZALEZ | [address] | [place], [place] | | | [facility] POINT OF CARE | [address] | [address] | | | TESTS | | | [...] | + + + + + | [facility] | [address] | [place] [address] | | | SERVICES, CORE | CRYSTAL [...] MARKATHERINEAM | [address] | [place], [place] | | | KAILYN MAZA OF CARE | [facility] | [address] | | | TESTS | | | [...] (H) | 60 - 99 mg/dL | [facility] - | | | GLUCOSE, | | [...] DUNGQUAM | [address] | [place], [place] | | | SHA[facility] POINT OF CARE | [address] | [address] | | | TESTS | | | [...] GONZALEZ | [address] | [place], [place] | | | KAILYN MAZA OF JOHN | [facility] | [address] | | | TESTS | | | [...] LUPEAM | [address] | [place], [place] | | | KAILYN MAZA OF CARE | [facility] | [address] | | | TESTS | | | [...] (H) | 60 - 99 mg/dL | [facility] - | | | GLUCOSE, | | [...] CARLOS | [address] | [place], [place] | | | SHA[facility] POINT OF CARE | [address] | [address] | | | TESTS | | | [...] GONZALEZ | [address] | [place], [place] | | | KAILYN MAZA OF JOHN | [facility] | [address] | | | TESTS | | | [...] [facility] | [address] | [place] [address] | | | SERVICES, CORE | PARK [...] [facility] | [address] | [place] [address] | | | SERVICES, CORE | PARK [...] for children less than 6 months | [facility] | | can be found in the Hemostasis Section general instructions of the | LABORATORY | | [facility] Lab Manual: | SERVICES, CORE | | [email or web address] | | + + + + + + + + | Performing | Address | City/State/Zipcode | Phone Number | | Organization | | | | + + + + + | [facility] | [address] | [place] [address] | | | SERVICES, CORE | PARK [...] | + + + + + | [facility] | [address] | [place] [address] | | | SERVICES, CORE | CRYSTAL [...] (H) | 60 - 99 mg/dL | [facility] - | | | GLUCOSE, | | [...] + + + | [facility] | [address] | [place], [place] | | | SHA[facility] POINT OF CARE | [address] | [address] | | | TESTS | | | [...] [facility] | [address] | [place], [place] | | | SHA[facility]NA POINT OF CARE | [facility] | [address] | | | TESTS | | | [...] - [facility] | [address] | [place], [place] | | | [facility] POINT OF CARE | [address] | [address] | | | TESTS | | | [...] + + + | [facility]ON[facility] | [address] | [place], [place] | | | KAILYN MAZA OF CARE | [address] | [address] | | | TESTS | | | [...] WARD | | | | | | (1442) on 12/11/2012 | | | | | | 8:39:29 AM | | | | + + + + + + + + | Specimen | + + | | + + + + + | Narrative | Performed At | + + + | Please click | [facility] | | on view image for the detailed interpretation from [employer] results. | CARDIOLOGY | + + + + + + + + | Performing | Address | City/State/Zipcode | Phone Number | | Organization | | | | + + + + + | [facility] | [address] | [place], [place] | | | CARDIOLOGY | [address] | [address] | | + + + + + [...] GONZALEZ | [address] | [place], [place] | | | [facility] POINT OF CARE | [address] | [address] | | | TESTS | | | [...] MARQUAM | [address] | [place], [place] | | | [facility] POINT OF CARE | [address] | [address] | | | TESTS | | | [...] [facility] | [address] | [place], [place] | | | KAILYN MAZA OF CARE | [address] | [address] | | | TESTS | | | [...] GONZALEZ | [address] | [place], [place] | | | SHA[facility] POINT OF CARE | [address] | [address] | | | TESTS | | | [...] MAR[facility] | [address] | [place], [place] | | | KAILYN MAZA OF CARE | [address] | [address] | | | TESTS | | | [...] [facility] | [address] | [place], [place] | | | KAILYN MAZA OF CARE | [address] | [address] | | | TESTS | | | [...] GONZALEZ | [address] | [place], [place] | | | [facility] POINT OF CARE | [address] | [address] | | | TESTS | | | | + + + + + X-RAY PORTABLE CHEST 1 VIEW (12/09/2012 5:59 AM PDT) + + + + + + | Component | Value | Ref Range | Performed | Pathologist | | | | | At | Signature | + + + + + + | X-RAY | Exam: CO CHEST 1 VIEW, | | | | [...] + + | Performing | Address | City/State/[facility] | Phone Number | [...] CARLOS | [address] | [place], [place] | | | [facility] POINT [facility] CARE | [address] | [address] | | | TESTS | | | [...] GONZALEZ | [address] | [place], [place] | | | KAILYN MAZA OF JOHN | [facility] | [address] | | | TESTS | | | [...] LUPEAM | [address] | [place], [place] | | | KAILYN MAZA OF CARE | [facility] | [address] | | | TESTS | | | [...] (H) | 60 - 99 mg/dL | [facility] - | | | GLUCOSE, | | [...] CARLOS | [address] | [place], [place] | | | KAILYN MAZA OF CARE | [address] | [address] | | | TESTS | | | [...] [facility] POWELL | [address] | [place] [address] | | | TOI MARIN | [address]ARK [...] [facility] | [address] | [place] [address] | | | SERVICES, CORE | PARK [...] [facility] | [address] | [place] [address] | | | SERVICES, CORE | CRYSTAL [...] [facility] | [address] | [place] [address] | | | SERVICES, CORE | PARK [...] | + + + + + | [facility] | [address] | [place] [address] | | | SERVICES, CORE | CRYSTAL [...] [facility] | [address] | [place] [address] | | | SERVICES, CORE | CRYSTAL [...] | + + + + + | [facility] | [address] | [place] [address] | | | SERVICES, CORE | CRYSTAL [...] (H) | 60 - 99 mg/dL | [facility] - | | | GLUCOSE, | | [...] GONZALEZ | [address] | [place], [place] | | | KAILYN MAZA OF CARE | [address] | [address] | | | TESTS | | | [...] MARQUAM | [address] | [place], [place] | | | KAILYN MAZA OF CARE | [address] | [address] | | | TESTS | | | [...] - [facility] | [address] | [place], [place] | | | KAILYN MAZA OF CARE | [address] | [address] | | | TESTS | | | [...] GONZALEZ | [address] | [place], [place] | | | [facility] POINT [facility] CARE | [address] | [address] | | | TESTS | | | [...] [facility] | [address] | [place] | | | KAILYN MAZA OF CARE | [address] | [address] | | | TESTS | | | | + + + + + X-RAY PORTABLE CHEST 1 VIEW (12/08/2012 7:41 PM PDT) + + + + + + | Component | Value | Ref Range | Performed | Pathologist | | | | | At | Signature | + + + + + + | X-RAY | STUDY:CO CHEST 1 VIEW | | | | | PORTABLE | 12/08/12 19:41:00 | | | | | CHEST 1 | COMPARISON:December 07, | | | | | VIEW | 12/08/12 INDICATION: | | | | | | Post mediastinal washout | | | | | | and is closer, left | | | | | | [place]-Ganzcatheter | | | | | | placement [...] [facility] | [address] | [place] [address] | | | SERVICES, CORE | PARK [...] [facility] | [address] | [place] [address] | | | SERVICES, CORE | PARK [...] | + + + + + | [facility] | [address] | [place] [address] | | | SERVICES, CORE | CRYSTAL [...] | + + + + + | [facility] | [address] | [place] [address] | | | SERVICES, CORE | CRYSTAL [...] | + + + + + | [facility] | [address] | [place] [address] | | | SERVICES, TOI | PARK [...] [facility] | [address] | [place], [place] | | | SHA[facility] POINT OF CARE | [facility] | [address] | | | TESTS | | | [...] | + + + + + | [facility] - | [address] | [place] [address] | | | [place] | | | | + + + [...] + | [facility] - | [address] | [place] [address] | | | [facility] | | | | + + + [...] + | [facility] | [address] | [place] [address] | | | [place] | | | [...] + | [facility] | [address] | [place] [address] | | | [place] | | | [...] + | [facility] | [address] | [place] [address] | | | [place] | | | | + + + [...] + | [facility] | [address] | [place] [address] | | | [facility] | | | | + + + [...] + | [facility] | [address] | [place] [address] | | | [place] | | | [...] | | Final SMEAR:AFB not | | [place] | | | | detected CULTURE | [...] + | [facility] | [address] | [place] [address] | | | [place] | | | [...] + | [facility] | [address] | [place] [address] | | | [place] | | | | + + + [...] [facility] | [address] | [place] [address] | | | SERVICES, | [address] [...] | + + + + + | [facility] | [address] | [place] [address] | | | SERVICES, | [address] | | | | TRANSFUSION MEDICINE [...] [facility] | [address] | [place] | | | KAILYN MAZA OF CARE | [address] | [address] | | | TESTS | | | [...] CARLOS | [address] | [place], [place] | | | SHA[facility] POINT OF [facility] | [address] | [address] | | | TESTS | | | [...] | + + + + + | [facility] | [address] | [place] [address] | | | SERVICES, CORE | CRYSTAL [...] (H) | 60 - 99 mg/dL | [facility] - | | | GLUCOSE, | | [...] GONZALEZ | [address] | [place], [place] | | | KAILYN MAZA OF JOHN | [facility] | [address] | | | TESTS | | | [...] | + + + + + | [facility] | [address] | [place] [address] | | | SERVICES, CORE | PARK [...] CARLOS | [address] | [place] | | | [facility] POINT OF CARE | [address] | [address] | | | TESTS | | | | + + + + + X-RAY PORTABLE CHEST 1 VIEW (12/08/2012 5:49 AM PDT) + + + + + + | Component | Value | Ref Range | Performed | Pathologist | | | | | At | Signature | + + + + + + | X-RAY | CO CHEST 1 VIEW, | | | | [...] GONZALEZ | [address] | [place], [place] | | | KAILYN MAZA OF JOHN | [address] | [address] | | | TESTS | | | [...] instructions of the | LABORATORY | | [facility] Lab Manual: | SERVICES, CORE | | [email or web address] | | + + + + + + + + | Performing | Address | City/State/Zipcode | Phone Number | | Organization | | | | + + + + + | [facility] | [address] | [place] [address] | | | SERVICES, CORE | CRYSTAL [...] | + + + + + | [facility] | [address] | [place] [address] | | | TANIA, TOI | CRYSTAL [...] [facility] | [address] | [place] | | | SHA[facility] POINT OF CARE | [facility] | [address] | | | TESTS | | | | + + + + + MAGNESIUM, PLASMA (12/08/2012 2:00 AM PDT) + +---------+ + + + | Component | Value | Ref Range | Performed | Pathologist | | | | | At | Signature | + +---------+ + + + | MAGNESIUM,P | 3.1 (H) | 1.8 - 2.5 mg/dL | [facility] | | | LASMA | | | [...] | + + + + + | [facility] | [address] | [place] [address] | | | SERVICES, CORE | PARK [...] [facility] | [address] | [place] [address] | | | SERVICES, TOI | CRYSTAL [...] | + + + + + | [facility] | [address] | [place] [address] | | | SERVICES, CORE | CRYSTAL [...] | + + + + + | [facility] | [address] | [place] [address] | | | SERVICES, CORE | CRYSTAL [...] [facility] | [address] | [place] [address] | | | SERVICES, CORE | PARK [...] - [facility] | [address] | [place], [place] | | | KAILYN MAZA OF CARE | [address] | [address] | | | TESTS | | | [...] (H) | 60 - 99 mg/dL | [facility] - | | | GLUCOSE, | | [...] [facility] | [address] | [place], [place] | | | KAILYN MAZA OF JOHN | [address] | [address] | | | TESTS | | | [...] [facility] | [address] | [place], [place] | | | SHAUNNA POINT OF CARE | [address] | [address] | | | TESTS | | | [...] | + + + + + | [facility] | [address] | [place] [address] | | | TOI MARIN | CRYSTAL [...] (H) | 60 - 99 mg/dL | [facility] - | | | GLUCOSE, | | [...] [facility] | [address] | [place], [place] | | | KAILYN MAZA OF CARE | [address] | [address] | | | TESTS | | | [...] GONZALEZ | [address] | [place], [place] | | | KAILYN AMZA OF JOHN | [facility] | [address] | | | TESTS | | | [...] [facility] | [address] | [place], [place] | | | KAILYN MAZA OF CARE | [facility] | [address] | | | TESTS | | | [...] (H) | 60 - 99 mg/dL | [facility] - | | | GLUCOSE, | | [...] CARLOS | [address] | [place], [place] | | | KAILYN MAZA OF CARE | [address] | [address] | | | TESTS | | | [...] for children less than 6 months | [facility] | | can be found in the Hemostasis Section general instructions of the | LABORATORY | | [facility] Lab Manual: | SERVICES, CORE | | [email or web address] | | + + + + + + + + | Performing | Address | City/State/Zipcode | Phone Number | | Organization | | | | + + + + + | [facility] | [address] [facility] | [place] [address] | | | SERVICES, CORE | PARK [...] | + + + + + | [facility] | [address] | [place] [address] | | | TOI MARIN | PARK [...] [facility] | [address] | [place] [address] | | | SERVICES, CORE | CRYSTAL [...] [facility] | [address] | [place], [place] | | | SHAUNNA POINT OF CARE | [address] | [address] | | | TESTS | | | [...] + + + | [facility] | [address] | [place], [place] | | | KAILYN MAZA OF JOHN | [address] | [address] | | | TESTS | | | [...] [facility] | [address] | [place], [place] | | | SHA[facility]NA POINT OF CARE | [address] | [address] | | | TESTS | | | [...] - CARLOS | [address] | [place], [place] | | | WEST[facility]ALIA HASTY OF [facility] | [address] | [address] | | | TESTS | | | [...] | + + + + + | [facility] | [address] | [place] [address] | | | SERVICES, CORE | PARK [...] GONZALEZ | [address] | [place], [place] | | | KAILYN MAZA OF CARE | [facility] | [address] | | | TESTS | | | [...] LUPE[facility] | [address] | [place], [place] | | | KAILYN MAZA OF JOHN | [facility] | [address] | | | TESTS | | | [...] (H) | 60 - 99 mg/dL | [facility] - | | | GLUCOSE, | | [...] CARLOS | [address] | [place], [place] | | | KAILYN MAZA OF [facility] | [address] | [address] | | | TESTS | | | [...] | + + + + + | [facility] | [address] [facility] | [place] [address] | | | TOI MARIN | CRYSTAL [...] [facility] | [address] | [place] [address] | | | SERVICES, TOI | CRYSTAL [...] for children less than 6 months | [facility] | | can be found in the Hemostasis Section general instructions of the | LABORATORY | | [facility] Lab Manual: | TOI MARIN | | [email or web address] | | + + + + + + + + | Performing | Address | City/State/Zipcode | Phone Number | | Organization | | | | + + + + + | [facility] | [address] | [place] [address] | | | TOI MARIN | CRYSTAL [...] [facility] | [address] | [place] [address] | | | SERVICES, CORE | PARK [...] + + | [facility] | [address] [facility] | [place] [address] | | | SERVICES, CORE | PARK [...] | + + + + + | [facility] | [address] | [place] [address] | | | SERVICES, CORE | CRYSTAL [...] CARLOS | [address] | [place], [place] | | | KAILYN MAZA OF JOHN | [address] | [address] | | | TESTS | | | | + + + + + X-RAY PORTABLE CHEST 1 VIEW (12/07/2012 6:14 AM PDT) + + + + + + | Component | Value | Ref Range | Performed | Pathologist | | | | | At | Signature | + + + + + + | X-RAY | STUDY: CO CHEST 1 VIEW | | | | [...] | | + +---------+ + + | [facility] DEPARTMENT OF | | | | | [...] | + + + + + | [facility] | [address] | [place] [address] | | | SERVICES, TOI | CRYSTAL [...] + + | [facility] | [address] | [place], [place] | | | KAILYN MAZA OF CARE | [address] | [address] | | | TESTS | | | [...] + + | [facility] | [address] [facility] | [place] [address] | | | SERVICES, CORE | PARK [...] | + + + + + | [facility] | [address] [facility] | [place] [address] | | | SERVICES, CORE | PARK [...] [facility] | [address] | [place] [address] | | | SERVICES, CORE | CRYSTAL [...] - CARLOS | [address] | [place], [place] | | | KAILYN MAZA OF CARE | [facility] | [address] | | | TESTS | | | [...] (H) | 60 - 99 mg/dL | [facility] - | | | GLUCOSE, | | [...] GONZALE[facility] | [address] | [place], [place] | | | KAILYN MAZA OF JOHN | [facility] | [address] | | | TESTS | | | [...] | + + + + + | [facility] | [address] | [place] [address] | | | SERVICES, CORE | CRYSTAL [...] CARLOS | [address] | [place], [place] | | | KAILYN MAZA OF JOHN | [facility] | [address] | | | TESTS | | | [...] [facility] | [address] | [place] [address] | | | SERVICES, CORE | [address] | | | + + + + + MAGNESIUM, PLASMA (12/07/2012 1:02 AM PDT) + +---------+ + + + | Component | Value | Ref Range | Performed | Pathologist | | | | | At | Signature | + +---------+ + + + | MAGNESIUM,P | 2.9 (H) | 1.8 - 2.5 mg/dL | [facility] | | | ELINAMA | | | [...] [facility] | [address] | [place] [address] | | | SERVICES, CORE | PARK [...] | + + + + + | [facility] | [address] | [place] [address] | | | SERVICES, CORE | CRYSTAL [...] (H) | 60 - 99 mg/dL | [facility] - | | | GLUCOSE, | | [...] + + | [facility] | [address] [facility] [address] | [place], [place] | | | SHAUNNA POINT OF CARE | [address] | [address] | | | TESTS | | | [...] | + + + + + | [facility] | [address] | [place] [address] | | | SERVICES, CORE | CRYSTAL [...] (H) | 60 - 99 mg/dL | [facility] - | | | GLUCOSE, | | [...] GONZALEZ | [address] | [place], [place] | | | KAILYN MAZA OF JOHN | [address] | [address] | | | TESTS | | | [...] [facility] | [address] | [place] [address] | | | SERVICES, CORE | PARK [...] | + + + + + | [facility] | [address] | [place] [address] | | | SERVICES, CORE | PARK [...] [facility] | [address] | [place] [address] | | | SERVICES, CORE | [address] | | | + + + + + MAGNESIUM, PLASMA (12/06/2012 8:27 PM PDT) + +---------+ + + + | Component | Value | Ref Range | Performed | Pathologist | | | | | At | Signature | + +---------+ + + + | MAGNESIUM,P | 3.0 (H) | 1.8 - 2.5 mg/dL | [facility] | | | LASMA | | | [...] [facility] | [address] | [place] [address] | | | SERVICES, CORE | CRYSTAL [...] valves (2.5 - 3.5) INR APTT | [facility], CORE | | Therapeutic Range: (75 - 120) sec | | | Heparin levels of 0.35 - 0.7 U/mL | | + + + + + + + + | Performing | Address | City/State/Zipcode | Phone Number | | Organization | | | | + + + + + | [facility] | [address] | [place] [address] | | | SERVICES, CORE | CRYSTAL [...] Venous blood: 0.5 - 2.2 mmol/L | [facility] | | Arterial blood: 0.5 - 1.6 mmol/L | LABORATORY | | | SERVICES, CORE | + + + + + + + + | Performing | Address | City/State/Zipcode | Phone Number | | Organization | | | | + + + + + | [facility] | [address] [facility] | [place] [address] | | | SERVICES, CORE | PARK [...] [facility] | [address] | [place] [address] | | | SERVICES, CORE | CRYSTAL [...] | + + + + + | [facility] | [address] | [place] [address] | | | TOI MARIN | CRYSTAL [...] view image for the detailed interpretation from [employer] results. | CARDIOLOGY | + + + + + + + + | Performing | Address | City/State/Zipcode | Phone Number | | Organization | | | | + + + + + | [facility] | [address] | [place], [place] | | | CARDIOLOGY | [address] | [address] | | + + + + + [...] | + + + + + | [facility] | [address] | [place] [address] | | | SERVICES, CORE | [address] | | | + + + + + OPERATION RECORD (12/06/2012 2:42 PM PDT) + + | Transcriptions | + + | Helen Gee MD - 12/06/2012 7:20 AM PDT Date: 12/04/2012ttending | | Surgeon: Narendra Lunsford M.D.Electric Sign Assembler(s): Helen Alberts | | MARCIA Geereoperative Diagnosis(es):Postoperative [...] Lunsford was | | present for the procedure.Hiram Vaughanglen Lunsford M.D.JONNATHAN / [id number] / | | [id number] / [id number] / T: 12/06/2012 | |placed a sternal [...] | | | |CJW / HS | |[id number] / [id number] / [id number] / | | | | | + [...] [facility] | [address] | [place] [address] | | | SERVICES, CORE | PARK [...] + | [facility] | [address] | [place] [address] | | | SERVICES, CORE | PARK [...] valves (2.5 - 3.5) INR APTT | [facility], CORE | | Therapeutic Range: (75 - 120) sec | | | Heparin levels of 0.35 - 0.7 U/mL | | + + + + + + + + | Performing | Address | City/State/Zipcode | Phone Number | | Organization | | | | + + + + + | [facility] | [address] [facility] [facility] | [place] [address] | | | [facility], [facility] | [address] | | | + [...] [facility] | [address] | [place] [address] | | | SERVICES, CORE | PARK [...] [facility] | [address] | [place] [address] | | | SERVICES, CORE | P[address] [...] [facility] | [address] | [place] [address] | | | SERVICES, CORE | PARK [...] [facility] | [address] | [place] [address] | | | SERVICES, CORE | PARK [...] TANIA, | | | | | | TIO | | + + + + + [...] | + + + + + | [facility] | [address] [facility] [facility] | [place] [address] | | | SERVICES, [facility] | [address] | | | + [...] + + | [facility] | [address] [facility] | [place] [address] | | | SERVICES, CORE | PARK [...] [facility] | [address] | [place] [address] | | | SERVICES, CORE | PARK [...] | + + + + + | [facility] | [address] [facility] [facility] [facility] [address] | [place] [address] | | | SERVICES, CORE | PARK [...] | + + + + + | [facility] | [address] | [place] [address] | | | SERVICES, CORE | CRYSTAL [...] [facility] | [address] | [place], [place] | | | KAILYN MAZA OF CARE | [address] | [address] | | | TESTS | | | [...] [facility] | [address] | [place] [address] | | | TOI MARIN | P[address] [...] [facility] | [address] | [place] [address] | | | SERVICES, CORE | [address] [...] | | | | | HEIDI CASTILLO ([id number]) | | | | | | on 12/06/2012 3:35:00 PM | | | | + + + + + + + + | Specimen | + + | | + + + + + | Narrative | Performed At | + + + | Please click | [facility] | | on view image for the detailed interpretation from [employer] results. | CARDIOLOGY | + + + + + + + + | Performing | Address | City/State/Zipcode | Phone Number | | Organization | | | | + + + + + | [facility] | [address] | [place], [place] | | | CARDIOLOGY | [address] | [address] | | + + + + + [...] | + + + + + | [facility] | [address] | [place] [address] | | | SERVICES, CORE | CRYSTAL [...] [facility] | [address] | [place] [address] | | | SERVICES, CORE | PARK [...] | + + + + + | [facility] | [address] [facility] [facility] [facility] | [place] [address] | | | SERVICES, [facility] | [address] | | | + [...] | + + + + + | [facility] | [address] | [place] [address] | | | SERVICES, CORE | [address] | | | + + + + + MAGNESIUM, PLASMA (12/06/2012 2:28 AM PDT) + +---------+ + + + | Component | Value | Ref Range | Performed | Pathologist | | | | | At | Signature | + +---------+ + + + | MAGNESIUM,P | 2.9 (H) | 1.8 - 2.5 mg/dL | [facility] | | | LASMA | | | [...] | + + + + + | [facility] | [address] | [place] [address] | | | SERVICES, CORE | CRYSTAL [...] (H) | 60 - 99 mg/dL | [facility] - | | | GLUCOSE, | | [...] GONZALEZ | [address] | [place], [place] | | | SHA[facility]NA POINT OF CARE | [address] | [address] | | | TESTS | | | [...] CARLOS | [address] | [place], [place] | | | [facility] | [address] | [address] | | | TESTS | | | [...] + | [facility] | [address] | [place] [address] | | | SERVICES, TOI | CRYSTAL [...] [facility] | [address] | [place] [address] | | | SERVICES, CORE | CRYSTAL [...] [facility] | [address] | [place] [address] | | | SERVICES, CORE | PARK [...] | + + + + + | [facility] | [address] | [place] [address] | | | SERVICES, CORE | CRYSTAL [...] | + + + + + | [facility] | [address] | [place] [address] | | | SERVICES, CORE | PARK [...] | + + + + + | [facility] | [address] | [place] [address] | | | SERVICES, CORE | CRYSTAL [...] | + + + + + | [facility] | [address] | [place] [address] | | | TANIA, TOI | CRYSTAL [...] + | [facility] | [address] | [place], [place] | | | KAILYN MAZA OF [facility] | [facility] | [address] | | | TESTS | | | [...] [facility] | [address] | [place] [address] | | | SERVICES, TOI | CRYSTAL [...] | + + + + + | [facility] | [address] | [place] [address] | | | SERVICES, CORE | PARK [...] | + + + + + | [facility] | [address] | [place] [address] | | | SERVICES, CORE | PARK [...] | + + + + + | [facility] | [address] | [place] [address] | | | SERVICES, CORE | CRYSTAL [...] | + + + + + | [facility] | [address] | [place] [address] | | | SERVICES, CORE | CRYSTAL [...] [facility] | [address] | [place], [place] | | | SHA[facility]NA POINT OF CARE | [address] | [address] | | | TESTS | | | [...] [facility] | [address] | [place], [place] | | | KAILYN MAZA OF CARE | [address] | [address] | | | TESTS | | | [...] GONZALE[facility] | [address] | [place], [place] | | | KAILYN MAZA OF JOHN | [address] | [address] | | | TESTS | | | [...] [facility] | [address] | [place] [address] | | | SERVICES, CORE | PARK [...] [facility] | [address] | [place] [address] | | | SERVICES, CORE | P[address] [...] | + + + + + | [facility] | [address] | [place] [address] | | | TOI MARIN | PARK [...] [facility] | [address] | [place] | | | SHA[facility]NA POINT OF CARE | [facility] | [address] | | | TESTS | | | [...] [facility] | [address] | [place] [address] | | | SERVICES, CORE | PARK [...] | + + + + + | [facility] | [address] | [place] [address] | | | SERVICES, CORE | [address] | | | + + + + + X-RAY PORTABLE CHEST 1 VIEW (12/05/2012 7:56 AM PDT) + + + + + + | Component | Value | Ref Range | Performed | Pathologist | | | | | At | Signature | + + + + + + | X-RAY | STUDY: CO CHEST 1 VIEW | | | | [...] + + | [facility] | [address] | [place], [place] | | | KAILYN MAZA OF CARE | [address] | [address] | | | TESTS | | | [...] [facility] | [address] | [place], [place] | | | KAILYN MAZA OF JOHN | [address] | [address] | | | TESTS | | | [...] G[facility] | [address] | [place], [place] | | | KAILYN MAZA OF CARE | [address] | [address] | | | TESTS | | | [...] | + + + + + | [facility] | [address] | [place] [address] | | | SERVICES, CORE | CRYSTAL [...] [facility] | [address] | [place] [address] | | | TANIA, TOI | [address] [...] | + + + + + | [facility] | [address] [facility] | [place] [address] | | | SERVICES, CORE | PARK [...] [facility] | [address] | [place] [address] | | | SERVICES, CORE | PARK [...] [facility] | [address] | [place] [address] | | | TOI MARIN | CRYSTAL [...] | + + + + + | [facility] | [address] | [place] [address] | | | TOI MARIN | CRYSTAL [...] (H) | 60 - 99 mg/dL | [facility] - | | | GLUCOSE, | | [...] [facility] | [address] | [place], [place] | | | KAILYN MAZA OF CARE | [address] | [address] | | | TESTS | | | | + + + + + 12 LEAD ECG (12/05/2012 2:53 AM PDT) + + + + + + | Component | Value | Ref Range | Performed | Pathologist | | | | | At | Signature | + + + + + + | [facility] | 83 | BPM | [facility] | | | RATE | | [...] view image for the detailed interpretation from [employer] results. | CARDIOLOGY | + + + + + + + + | Performing | Address | City/State/Zipcode | Phone Number | | Organization | | | | + + + + + | [facility] | [address] | [place], [place] | | | CARDIOLOGY | [address] | [address] | | + + + + + [...] | + + + + + | [facility] | [address] | [place] [address] | | | SERVICES, CORE | CRYSTAL [...] (H) | 60 - 99 mg/dL | [facility] - | | | GLUCOSE, | | [...] [facility] | [address] | [place], [place] | | | SHA[facility] POINT OF CARE | [address] | [address] | | | TESTS | | | [...] [facility] | [address] | [place], [place] | | | KAILYN MAZA OF CARE | [facility] | [address] | | | TESTS | | | [...] [facility] | [address] | [place], [place] | | | KAILYN MAZA OF [facility] | [address] | [address] | | | TESTS | | | [...] | + + + + + | [facility] | [address] | [place] [address] | | | SERVICES, CORE | PARK [...] | 11.80 (H) | <0.80 ng/mL | [facility] | | | | | | LABORATORY [...] | + + + + + | [facility] | [address] | [place] [address] | | | SERVICES, CORE | CRYSTAL [...] | | + +---------+ + + | [facility] DEPARTMENT OF | | | | | [...] + | [facility] | [address] | [place], [place] | | | SHA[facility]NA POINT OF CARE | [address] | [address] | | | TESTS | | | [...] | + + + + + | [facility] | [address] | [place] [address] | | | SERVICES, [facility] | [address] | | | + [...] | + + + + + | [facility] | [address] | [place] [address] | | | SERVICES, CORE | [address] [...] | + + + + + | [facility] | [address] | [place] [address] | | | SERVICES, CORE | CRYSTAL [...] (H) | 60 - 99 mg/dL | [facility] - | | | GLUCOSE, | | [...] G[facility] | [address] | [place], [place] | | | [facility] POINT OF CARE | [address] | [address] | | | TESTS | | | [...] [facility] | [address] | [place] [address] | | | SERVICES, CORE | PARK [...] + | [facility] | [address] | [place] [address] | | | SERVICES, CORE | PARK [...] [facility] | [address] | [place] [address] | | | SERVICES, CORE | CRYSTAL [...] | + + + + + | [facility] | [address] | [place] [address] | | | SERVICES, CORE | [address] [...] | + + + + + | [facility] | [address] [facility] | [place] [address] | | | SERVICES, CORE | CRYST[address] [...] | + + + + + | [facility] | [address] | [place] [address] | | | SERVICES, CORE | [address] [...] | + + + + + | [facility] | [address] | [place] [address] | | | SERVICES, CORE | [address]YST[address] [...] [facility] | [address] | [place] [address] | | | SERVICES, CORE | P[address] [...] [facility] | [address] | [place] [address] | | | SERVICES, | [address] [...] | + + + + + | [facility] | [address] | [place] [address] | | | SERVICES, | [address] | | | | TRANSFUSION MEDICINE [...] | + + + + + | [facility] | [address] | [place] [address] | | | SERVICES, CORE | [address] [...] + + + + | PRODUCT | [id number] | | [facility] | | | UNIT [...] + + + + | BLOOD | 63812 | | [facility] | | | PRODUCT [...] DEPARTMENT OF | [address] | [place] [address] | | | PATHOLOGY | [address] [...] + + + + | PRODUCT | [id number] | | [facility] | | | UNIT [...] + + + + | BLOOD | 93162 | | [facility] | | | PRODUCT [...] | + + + + + | [facility] | [address] | [place] [address] | | | PATHOLOGY | [address] [...] + + + + | PRODUCT | [id number] | | [facility] | | | UNIT [...] + + + + | BLOOD | 24048 | | [facility] | | | PRODUCT [...] | + + + + + | [facility] DEPARTMENT OF | [address] | [place] [address] | | | PATHOLOGY | [address] [...] + + + + | PRODUCT | [id number] | | [facility] | | | UNIT [...] + + + + | BLOOD | 88755 | | [facility] | | | PRODUCT [...] | + + + + + | [facility] | [address] | [place] [address] | | | PATHOLOGY | [address] [...] + + + + | PRODUCT | [id number] | | [facility] | | | UNIT [...] + + + + | BLOOD | 87726 | | [facility] | | | PRODUCT [...] DEPARTMENT OF | [address] | [place] [address] | | | PATHOLOGY | [address] [...] + + + + | PRODUCT | [id number] | | [facility] | | | UNIT [...] + + + + | BLOOD | 89603 | | [facility] | | | PRODUCT [...] | + + + + + | [facility] | [address] | [place] [address] | | | PATHOLOGY | [address] [...] + + + + | PRODUCT | [id number] | | [facility] | | | UNIT [...] + + + + | BLOOD | 74344 | | [facility] | | | PRODUCT [...] [facility] | [address] | [place] [address] | | | PATHOLOGY | [address] [...] + + + + | PRODUCT | [id number] | | [facility] | | | UNIT [...] + + + + | BLOOD | 19009 | | [facility] | | | PRODUCT [...] | + + + + + | [facility] | [address] | [place] [address] | | | PATHOLOGY | [address] [...] + + + + | PRODUCT | [id number] | | [facility] | | | UNIT [...] + + + + | BLOOD | 96952 | | [facility] | | | PRODUCT [...] + + + + | [facility] | [address] | [place] [address] | | | PATHOLOGY | [address] [...] + + + + | PRODUCT | [id number] | | [facility] | | | UNIT [...] + + + + | BLOOD | 99127 | | [facility] | | | PRODUCT [...] | + + + + + | [facility] | [address] | [place] [address] | | | PATHOLOGY | [address] [...] + + + + | PRODUCT | [id number] | | [facility] | | | UNIT [...] + + + + | BLOOD | 02913 | | [facility] | | | PRODUCT [...] + | [facility] | [address] | [place] [address] | | | PATHOLOGY | [address] [...] + + + + | PRODUCT | [id number] | | [facility] | | | UNIT [...] + + + + | BLOOD | 96894 | | [facility] | | | PRODUCT [...] | + + + + + | [facility] | [address] | [place] [address] | | | PATHOLOGY | [address] [...] + + + + | PRODUCT | [id number] | | [facility] | | | UNIT [...] + + + + | BLOOD | 64516 | | [facility] | | | PRODUCT [...] | + + + + + | [facility] | [address] | [place] [address] | | | PATHOLOGY | [address] [...] + + + + | PRODUCT | [id number] | | [facility] | | | UNIT [...] + + + + | BLOOD | 28642 | | [facility] | | | PRODUCT [...] | + + + + + | [facility] | [address] | [place] [address] | | | PATHOLOGY | [address] [...] [facility] | [address] | [place], [place] | | | THERAPY | [address] | [address] | | + + + + + [...] [facility] | [address] | [place], [place] | | | THERAPY | [address] | [address] | | + + + + + [...] [facility] | [address] | [place], [place] | | | THERAPY | [address] | [address] | | + + + + + [...] [facility] | [address] | [place], [place] | | | THERAPY | [address] | [address] | | + + + + + [...] [facility] | [address] | [place] | | | THERAPY | [address] | [address] | | + + + + + [...] + + | [facility] | [address] [facility] | [place], [place] | | | THERAPY | [address] | [address] | | + + + + + [...] | + + + + + | [facility] | [address] | [place] [address] | | | SERVICES, CORE | CRYSTAL [...] | + + + + + | [facility] | [address] | [place] [address] | | | SERVICES, CORE | CRYSTAL [...] [facility] | [address] | [place] [address] | | | SERVICES, TOI | CRYSTAL [...] | + + + + + | [facility] | [address] | [place] [address] | | | SERVICES, CORE | CRYSTAL [...] + + | [facility] | [address] [facility] | [place], [place] | | | THERAPY | [address] | [address] | | + + + + + [...] + + | [facility] | [address] | [place], [place] | | | THERAPY | [address] | [address] | | + + + + + GERMAN TRINIDAD RESP (12/04/2012 4:06 PM PDT) + +-------+ [...] [facility] | [address] | [place], [place] | | | THERAPY | [address] | [address] | | + + + + + [...] [facility] | [address] | [place], [place] | | | THERAPY | [address] | [address] | | + + + + + [...] [facility] | [address] | [place], [place] | | | THERAPY | [address] | [address] | | + + + + + [...] [facility] | [address] | [place], [place] | | | THERAPY | [address] | [address] | | + + + + + [...] + + + | [facility] | [address] | [place], [place] | | | [facility] | [address] | [address] | | | TESTS | | | [...] [facility] | [address] | [place] [address] | | | SERVICES, CORE | CRYSTAL [...] Methemoglobin Reference Range: 0-18 years: Not | TANIA, CORE | | Available >18 years: <2% of total hemoglobin | | + + + + + + + + | Performing | Address | City/State/Zipcode | Phone Number | | Organization | | | | + + + + + | [facility] | [address] | [place] [address] | | | SERVICES, CORE | [address] [...] [facility] | [address] | [place] [address] | | | TOI MARIN | [address] [...] [facility] | [address] | [place] [address] | | | SERVICES, CORE | CRYSTAL [...] | + + + + + | [facility] | [address] | [place] [address] | | | SERVICES, CORE | PARK [...] + + + + + | [facility] | [address] | [place], [place] | | | THERAPY | [address] | [address] | | + + + + + GERMAN BREEN (12/04/2012 3:33 PM PDT) + + + [...] [facility] | [address] | [place], [place] | | | THERAPY | [address] | [address] | | + + + + + [...] [facility] | [address] | [place], [place] | | | THERAPY | [address] | [address] | | + + + + + [...] [facility] | [address] | [place], [place] | | | THERAPY | [address] | [address] | | + + + + + [...] [facility] | [address] | [place], [place] | | | THERAPY | [address] | [address] | | + + + + + [...] [facility] | [address] | [place], [place] | | | THERAPY | [address] | [address] | | + + + + + X-RAY PORTABLE CHEST 1 VIEW (12/04/2012 3:25 PM PDT) + + + + + + | Component | Value | Ref Range | Performed | Pathologist | | | | | At | Signature | + + + + + + | X-RAY | STUDY: CO CHEST 1 VIEW | | | | [...] | | + +---------+ + + | [facility] | | | | | [...] [facility] | [address] | [place], [place] | | | THERAPY | [address] | [address] | | + + + + + [...] [facility] | [address] | [place], [place] | | | THERAPY | [address] | [address] | | + + + + + [...] [facility] | [address] | [place], [place] | | | THERAPY | [address] | [address] | | + + + + + [...] + + | [facility] | [address] [facility] | [place], [place] | | | THERAPY | [address] | [address] | | + + + + + [...] [facility] | [address] | [place], [place] | | | THERAPY | [address] | [address] | | + + + + + [...] [facility] | [address] | [place], [place] | | | THERAPY | [address] | [address] | | + + + + + [...] | + + + + + | [facility] | [address] | [place] [address] | | | SERVICES, CORE | [address] | | | + + + + + X-RAY PORTABLE CHEST 1 VIEW (12/04/2012 9:58 AM PDT) + + + + + + | Component | Value | Ref Range | Performed | Pathologist | | | | | At | Signature | + + + + + + | X-RAY | EXAM: CO CHEST 1 VIEW | | | | [...] The | | | | | | [place]remi catheterhas | | | | | | [...] Suarez | | | | | | RADHA, MDAuthor: Vinnie | | | | | [...] | + + + + + | [facility] | [address] | [place] [address] | | | SERVICES, CORE | PARK [...] [facility] | [address] | [place] [address] | | | SERVICES, CORE | CRYSTAL [...] [facility] | [address] | [place] [address] | | | SERVICES, CORE | PARK [...] [facility] | [address] | [place] [address] | | | SERVICES, CORE | PARK [...] + + | [facility] | [address] [facility] | [place] [address] | | | SERVICES, TOI | CRYSTAL [...] | + + + + + | [facility] | [address] | [place] [address] | | | SERVICES, CORE | CRYSTAL [...] [facility] | [address] | [place], [place] | | | KAILYN MAZA OF JOHN | [address] | [address] | | | TESTS | | | [...] + + + | Please click | [facility] | | on view image for the detailed interpretation from [employer] results. | CARDIOLOGY | + + + + + + + + | Performing | Address | City/State/Zipcode | Phone Number | | Organization | | | | + + + + + | [facility] | [address] | [place], [place] | | | CARDIOLOGY | [address] | [address] | | + + + + + [...] [facility] | [address] | [place], [place] | | | KAILYN MAZA OF JOHN | [address] | [address] | | | TESTS | | | [...] | + + + + + | [facility] | [address] | [place] [address] | | | SERVICES, CORE | CRYSTAL [...] [facility] | [address] | [place] [address] | | | TOI MARIN | CRYSTAL [...] - [facility] | [address] | [place], [place] | | | SHAUNNA POINT OF CARE | [address] | [address] | | | TESTS | | | [...] + + | [facility] | [address] [facility] | [place] [address] | | | SERVICES, CORE | PARK [...] | + + + + + | [facility] | [address] | [place] [address] | | | SERVICES, CORE | CRYSTAL [...] (H) | 60 - 99 mg/dL | [facility] - | | | GLUCOSE, | | [...] [facility] | [address] | [place], [place] | | | KAILYN MAZA OF CARE | [address] | [address] | | | TESTS | | | [...] | + + + + + | [facility] | [address] | [place] [address] | | | TOI MARIN | CRYSTAL [...] | + + + + + | [facility] | [address] [facility] | [place] [address] | | | SERVICES, CORE | CRYSTAL [...] [facility] | [address] | [place] [address] | | | SERVICES, CORE | PARK [...] | + + + + + | [facility] | [address] | [place] [address] | | | TOI MARIN | CRYSTAL [...] | + + + + + | [facility] | [address] | [place] [address] | | | TOI MARIN | CRYSTAL [...] (H) | 60 - 99 mg/dL | [facility] - | | | GLUCOSE, | | [...] [facility] | [address] | [place], [place] | | | SHAUNNA POINT OF CARE | [address] | [address] | | | TESTS | | | [...] | + + + + + | [facility] | [address] | [place] [address] | | | SERVICES, CORE | [address] | | | + + + [...] [facility] | [address] | [place] | | | KAILYN MAZA OF CARE | [address] | [address] | | | TESTS | | | [...] [facility] | [address] | [place], [place] | | | KAILYN MAZA OF JOHN | [address] | [address] | | | TESTS | | | [...] (H) | 60 - 99 mg/dL | [facility] - | | | GLUCOSE, | | [...] [facility] | [address] | [place], [place] | | | KAILYN MAZA OF CARE | [address] | [address] | | | TESTS | | | [...] [facility] | [address] | [place] | | | SHAUNNA POINT OF CARE | [address] | [address] | | | TESTS | | | [...] | + + + + + | [facility] | [address] [address] | [place] [id number] | | | SERVICES, CORE | PARK [...] [facility] | [address] | [place] [address] | | | SERVICES, CORE | CRYSTAL [...] [facility] | [address] | [place] [address] | | | SERVICES, CORE | CRYSTAL [...] | + + + + + | [facility] | [address] | [place] [address] | | | SERVICES, CORE | [address] | | | + + + + + MAGNESIUM, PLASMA (12/02/2012 2:59 AM PST) + +-------+ + + + | Component | Value | Ref Range | Performed | Pathologist | | | | | At | Signature | + +-------+ + + + | MAGNESIUM,P | 2.1 | 1.8 - 2.5 mg/dL | [facility] | | | LASMA | | | [...] | + + + + + | [facility] | [address] | [place] [address] | | | SERVICES, CORE | CRYSTAL [...] [facility] | [address] | [place], [place] | | | KAILYN MAZA OF JOHN | [facility] | [address] | | | TESTS | | | [...] [facility] | [address] | [place], [place] | | | KAILYN MAZA OF JOHN | [address] | [address] | | | TESTS | | | [...] | + + + + + | [facility] | [address] | [place] [address] | | | SERVICES, CORE | CRYSTAL [...] (H) | 60 - 99 mg/dL | [facility] - | | | GLUCOSE, | | [...] [facility] | [address] | [place], [place] | | | KAILYN MAZA OF CARE | [address] | [address] | | | TESTS | | | [...] [facility] | [address] | [place] | | | KAILYN MAZA OF CARE | [address] | [address] | | | TESTS | | | [...] | [facility] | [address] | [place], [place] | | | KAILYN MAZA OF CARE | [address] | [address] | | | TESTS | | | [...] | | | POC | | | AKILYN MAZA | | | | | | [...] [facility] | [address] | [place], [place] | | | SHAUNNA POINT OF CARE | [address] | [address] | | | TESTS | | | [...] | + + + + + | [facility] | [address] [facility] | [place] [address] | | | SERVICES, CORE | CRYSTAL [...] | + + + + + | [facility] | [address] | [place] [address] | | | SERVICES, CORE | CRYSTAL [...] (H) | 60 - 99 mg/dL | [facility] - | | | GLUCOSE, | | [...] [facility] | [address] | [place] | | | SHAUNNA POINT OF CARE | [address] | [address] | | | TESTS | | | [...] [facility] | [address] | [place] | | | KIALYN MAZA OF CARE | [address] | [address] | | | TESTS | | | [...] [facility] | [address] | [place], [place] | | | KAILYN MAZA OF CARE | [address] | [address] | | | TESTS | | | [...] [facility] | [address] | [place], [place] | | | KAILYN MAZA OF CARE | [address] | [address] | | | TESTS | | | [...] [facility] | [address] | [place], [place] | | | KAILYN MAZA OF CARE | [address] | [address] | | | TESTS | | | [...] | | | | signed / TINY V | | | | | | RADHA [...] [facility] | [address] | [place], [place] | | | SHAUNNA POINT OF CARE | [address] | [address] | | | TESTS | | | [...] - [facility] | [address] | [place], [place] | | | SHAUNNA POINT OF CARE | [address] | [address] | | | TESTS | | | [...] | + + + + + | [facility] | [address] | [place] [address] | | | SERVICES, CORE | CRYSTAL [...] [facility] | [address] | [place] [address] | | | SERVICES, CORE | [address] [...] [facility] | [address] | [place] [address] | | | SERVICES, CORE | P[address] [...] [facility] | [address] | [place] [address] | | | SERVICES, TOI | PARK [...] | + + + + + | [facility] | [address] | [place] [address] | | | TOI MARIN | CRYSTAL [...] (H) | 60 - 99 mg/dL | [facility] - | | | GLUCOSE, | | [...] [facility] | [address] | [place], [place] | | | KAILYN MAZA OF CARE | [address] | [address] | | | TESTS | | | [...] [facility] | [address] | [place], [place] | | | KAILYN MAZA OF JOHN | [facility] | [address] | | | TESTS | | | [...] [facility] | [address] | [place], [place] | | | KAILYN MAZA OF JOHN | [address] | [address] | | | TESTS | | | [...] | + + + + + | [facility] | [address] | [place] [address] | | | TOI MARIN | CRYSTAL [...] [facility] | [address] | [place] [address] | | | SERVICES, CORE | P[address] [...] [facility] | [address] | [place] [address] | | | SERVICES, TOI | CRYSTAL [...] [facility] | [address] | [place], [place] | | | SHAUNNA POINT OF CARE | [address] | [address] | | | TESTS | | | [...] + + + | [facility] | [address] | [place], [place] | | | KAILYN MAZA OF JOHN | [address] | [address] | | | TESTS | | | [...] [facility] | [address] | [place], [place] | | | SHAUNNA POINT OF CARE | [address] | [address] | | | TESTS | | | [...] [facility] | [address] | [place], [place] | | | SHAUNNA POINT OF CARE | [address] | [address] | | | TESTS | | | [...] [facility] | [address] | [place] | | | KAILYN MAZA OF CARE | [address] | [address] | | | TESTS | | | [...] [facility] | [address] | [place], [place] | | | SHAUNNA POINT OF CARE | [address] | [address] | | | TESTS | | | [...] - [facility] | [address] | [place], [place] | | | [place] [facility]INT OF [facility] | [address] | [address] | | | TESTS | | | [...] [facility] | [address] | [place] [address] | | | SERVICES, CORE | P[address] [...] [facility] | [address] | [place] [address] | | | SERVICES, CORE | [address] [...] | + + + + + | [facility] | [address] | [place] [address] | | | SERVICES, CORE | CRYSTAL [...] (H) | 60 - 99 mg/dL | [facility] - | | | GLUCOSE, | | [...] + + + | [facility] | [address] | [place], [place] | | | KAILYN MAZA OF [facility] | [address] | [address] | | | TESTS | | | | + + + + + X-RAY PORTABLE CHEST 1 VIEW (11/30/2012 11:23 AM PST) + + + + + + | Component | Value | Ref Range | Performed | Pathologist | | | | | At | Signature | + + + + + + | X-RAY | STUDY: CO CHEST 1 VIEW | | | | [...] | | + +---------+ + + | [facility] | | | | | [...] [facility] | [address] | [place], [place] | | | KAILYN MAZA OF CARE | [address] | [address] | | | TESTS | | | [...] + | [facility] | [address] | [place] [address] | | | [place] | | | | + + + [...] Subculture, No | | | | | 12/02/201219. | growth to date. | | | + + + + + + + + | Specimen | + + | Blood - Antecubital | | - left | + + + + + + + | Performing | Address | City/State/Zipcode | Phone Number | | Organization | | | | + + + + + | [facility] | [address] | [place] [address] | | | TOI MARIN | [address] | | | + + + + + UA, DIPSTICK ONLY (11/30/2012 8:39 AM PST) + + [...] | 1.018 | 1.005 - 1.030 | [facility] | | | GRAVITY | | | [...] | + + + + + | [facility] | [address] | [place] [address] | | | SERVICES, CORE | [address] [...] +---------+ + + + | SQUAMOUS | Amy (A) | None /hpf | [facility] | | | EPITHELIAL | | | LABORAT[facility] | | | | | | SERVICES, | | | | | | CORE | | + +---------+ + + + | HOUSTON | Amy (A) | None /hpf | [facility] | [...] | + +---------+ + + + | NON-SQUAMERNIE | Few (A) | None /hpf | [...] [facility] | [address] | [place] [address] | | | SERVICES, CORE | [address] [...] [facility] | [address] | [place] [address] | | | SERVICES, CORE | [address] [...] | | | Final CULTURE | | [place] | | | | RESULT:No growth at [...] + | [facility] | [address] | [place] [address] | | | [facility] | | | | + + + [...] | + + + + + | [facility] | [address] [facility] | [place] [address] | | | SERVICES, CORE | [address] [...] 0.0 | 0.0 - 0.1 K/cu | [facility] | | | | | mm | [...] | + + + + + | [facility] | [address] | [place] [address] | | | SERVICES, CORE | [address] [...] [facility] | [address] | [place], [place] | | | KAILYN MAZA OF CARE | [facility] | [address] | | | TESTS | | | [...] (H) | 60 - 99 mg/dL | [facility] - | | | GLUCOSE, | | [...] [facility] | [address] | [place], [place] | | | KAILYN MAZA OF CARE | [address] | [address] | | | TESTS | | | [...] IJ | | | | | | [place]remi catheter, | | | | | | [...] [facility] | [address] | [place], [place] | | | KAILYN MAZA OF JOHN | [address] | [address] | | | TESTS | | | [...] | + + + + + | [facility] | [address] | [place] [address] | | | SERVICES, CORE | CRYSTAL [...] (H) | 60 - 99 mg/dL | [facility] - | | | GLUCOSE, | | [...] [facility] | [address] | [place], [place] | | | KAILYN MAZA OF CARE | [address] | [address] | | | TESTS | | | [...] | + + + + + | [facility] | [address] | [place] [address] | | | SERVICES, CORE | CRYSTAL [...] [facility] | [address] | [place], [place] | | | KAILYN MAZA OF JOHN | [facility] | [address] | | | TESTS | | | [...] - [facility] | [address] | [place], [place] | | | SHAUNNA HASTY OF [facility] | [facility] | [address] | | | TESTS | | | [...] | + + + + + | [facility] | [address] | [place] [address] | | | SERVICES, CORE | [address] | | | + + + + + MAGNESIUM, PLASMA (11/30/2012 1:49 AM PST) + +---------+ + + + | Component | Value | Ref Range | Performed | Pathologist | | | | | At | Signature | + +---------+ + + + | MAGNESIUM,P | 3.2 (H) | 1.8 - 2.5 mg/dL | [facility] | | | PITA | | | [...] | + + + + + | [facility] | [address] [facility] | [place] [address] | | | SERVICES, CORE | CRYSTAL [...] | + + + + + | [facility] | [address] | [place] [address] | | | SERVICES, CORE | CRYSTAL [...] 98.5 (H) | 92.0 - 98.0 | [facility] | | | ARTERIAL | | | [...] | + + + + + | [facility] | [address] | [place] [address] | | | SERVICES, CORE | [address] [...] - [facility] | [address] | [place] | | | SHAUN[place] POINT OF [facility] | [address] | [address] | | | TESTS | | | [...] | + + + + + | [facility] | [address] | [place] [address] | | | TANIA, TOI | [address] [...] | + + + + + | [facility] | [address] | [place] [address] | | | SERVICES, CORE | CRYSTAL [...] | + + + + + | [facility] | [address] | [place] [address] | | | SERVICES, CORE | [address] | | | + + + + + CAPILLARY BLOOD GLUCOSE (NO CHG) POC (11/29/2012 11:38 PM PST) + +---------+ [...] [facility] | [address] | [place], [place] | | | SHAUNNA POINT OF CARE | [address] | [address] | | | TESTS | | | [...] - [facility] | [address] | [place] | | | SHAUNNA POINT OF CARE | [address] | [address] | | | TESTS | | | [...] | | | | | ECGConfirmed by [place], | | | | | | AYALA [...] view image for the detailed interpretation from [employer] results. | CARDIOLOGY | + + + + + + + + | Performing | Address | City/State/Zipcode | Phone Number | | Organization | | | | + + + + + | [facility] | [address] | [place], [place] | | | CARDIOLOGY | [address] | [address] | | + + + + + [...] DEPT OF | [address] | [place], [place] | | | CARDIOLOGY | [address] | [address] | | + + + + + [...] | + + + + + | [facility] | [address] | [place] [address] | | | SERVICES, CORE | CRYSTAL [...] | | + +---------+ + + | [facility] | | | | | [...] (H) | 60 - 99 mg/dL | [facility] - | | | GLUCOSE, | | [...] - [facility] | [address] | [place] | | | SHAUNNA POINT OF CARE | [address] | [address] | | | TESTS | | | [...] [facility] | [address] | [place] [address] | | | SERVICES, CORE | CRYSTAL [...] [facility] | [address] | [place] [address] | | | SERVICES, CORE | [address] [...] | + + + + + | [facility] | [address] | [place] [address] | | | SERVICES, CORE | [address] | | | + + + + + MAGNESIUM, PLASMA (11/29/2012 9:10 PM PST) + +---------+ + + + | Component | Value | Ref Range | Performed | Pathologist | | | | | At | Signature | + +---------+ + + + | MAGNESIUM,P | 3.8 (H) | 1.8 - 2.5 mg/dL | [facility] | | | LASMA | | | [...] | + + + + + | [facility] | [address] | [place] [address] | | | SERVICES, CORE | CRYSTAL [...] + + | [facility] | [address] [facility] | [place] [address] | | | SERVICES, CORE | [address] [...] [facility] | [address] | [place] [address] | | | SERVICES, CORE | [address] [...] | + + + + + | [facility] | [address] | [place] [address] | | | SERVICES, CORE | CRYST[address] [...] Final automated differential report. Smear reviewed. | [facility] | | | LABORATORY | | | SERVICES, CORE | + + + + + + + + | Performing | Address | City/State/Zipcode | Phone Number | | Organization | | | | + + + + + | [facility] | [address] | [place] [address] | | | SERVICES, CORE | PARK [...] | + + + + + | [facility] | [address] | [place] [address] | | | SERVICES, CORE | CRYSTAL [...] [facility] | [address] | [place] [address] | | | TOI MARIN | CRYSTAL [...] [facility] | [address] | [place], [place] | | | KAILYN MAZA OF JOHN | [facility] | [address] | | | TESTS | | | [...] GONZALEZ | [address] | [place], [place] | | | KAILYN MAZA OF CARE | [address] | [address] | | | TESTS | | | [...] [facility] | [address] | [place], [place] | | | H[place], POINT OF CARE | [address] | [address] | | | TESTS | | | [...] + | [facility] | [address] | [place] [address] | | | SERVICES, CORE | PARK [...] + + | [facility] | [address] [facility] | [place] [address] | | | SERVICES, | [address] | | | | TRANSFUSION MEDICINE [...] | + + + + + | [facility] | [address] [facility] | [place] [address] | | | SERVICES, CORE | CRYSTAL [...] | + + + + + | [facility] | [address] | [place] [address] | | | SERVICES, CORE | PARK [...] CARLOS | [address] | [place], [place] | | | KAILYN MAZA OF JOHN | [facility] | [address] | | | TESTS | | | | + + + + + CAPILLARY BLOOD GLUCOSE (NO CHG), POC (11/27/2012 12:44 PM PST) + +-------+ + + + | Component | Value | Ref Range | Performed | Pathologist | | | | | At | Signature | + +-------+ + + + | BLOOD | 89 | 60 - 99 mg/dL | [facility] - | | | GLUCOSE, | | [...] GONZALEZ | [address] | [place], [place] | | | KAILYN MAZA OF CARE | [address] | [address] | | | TESTS | | | [...] | | | | | zen / BEBETO | | | | | [...] | | + +---------+ + + | [facility] DEPARTMENT OF | | | | | [...] [facility] | [address] | [place] [address] | | | SERVICES, | [address] [...] | + + + + + | [facility] | [address] | [place] [address] | | | SERVICES, | [address] | | | | TRANSFUSION MEDICINE [...] | + + + + + | [facility] | [address] | [place] [address] | | | SERVICES, CORE | CRYSTAL [...] + + + + | PRODUCT | [id number] | | [facility] | | | UNIT [...] + + + + | BLOOD | [id number] | | [facility] | | | PRODUCT [...] DEPARTMENT OF | [address] | [place] [address] | | | PATHOLOGY | [address] [...] + + + + | PRODUCT | [id number] | | [facility] | | | UNIT [...] + + + + | BLOOD | [id number] | | [facility] | | | PRODUCT [...] | + + + + + | [facility] | [address] | [place] [address] | | | PATHOLOGY | [address] [...] [facility] | [address] | [place], [place] | | | KAILYN MAZA OF CARE | [address] | [address] | | | TESTS | | | [...] [facility] | [address] | [place] [address] | | | SERVICES, CORE | PARK [...] | + + + + + | [facility] | [address] [facility] | [place] [address] | | | TANIA, CORE | [address] | | | + + + + + UA, SUSIICK ONLY (11/27/2012 1:49 AM PST) + + [...] | + + + + + | [facility] | [address] | [place] [address] | | | SERVICES, CORE | PARK [...] [facility] | [address] | [place], [place] | | | KAILYN MAZA OF CARE | [address] | [address] | | | TESTS | | | [...] | | + +---------+ + + | [facility] DEPARTMENT OF | | | | | [...] [facility] | [address] | [place] [address] | | | SERVICES, CORE | PARK [...] [facility] | [address] | [place] [address] | | | SERVICES, CORE | PARK [...] [facility] | [address] | [place] [address] | | | SERVICES, CORE | PARK [...] | + + + + + | [facility] | [address] [facility] | [place] [address] | | | SERVICES, [facility] | [address] | | | + [...] | | If you are | | [place] | | | | screening for diabetes: [...] + | [facility] | [address] | [place] [address] | | | [place] | | | | + + + + + ORDERS OTHER (11/26/2012 12:00 AM PST) + + + | Narrative | Performed At | + + + | | | | | | + + + + + | Procedure Note | + + | Other, Faculty - 01/15/2013 11:22 AM PDT | + + ORDERS OTHER (11/26/2012 12:00 AM PST) + + + | Narrative | Performed At | + + + | | | | | | + + + + + | Procedure Note | + + | Diana [place] - 12/27/2012 10:32 AM PDT | + + documented in this encounter Visit Diagnoses + + | Diagnosis | + + | Open wound of chest (wall), complicated | + + documented in this encounter Administered Medications + +--------+ +---------+------+-------+ | Medication Order | MAR | Action | Dose | Rate | Site | | | Action | Date | | | | + +--------+ +---------+------+-------+ | bacitracin irrigation | Given | 12/09/19 | 50,000 | | Chest | | INTRAPROCEDURE PRN, Starting Fri | | 13 4:00 | Units | | | | 12/08/12 at 1454, Until Fri | | PM PDT | | | | | 12/08/12 at 1729 | | | | | | + +--------+ +---------+------+-------+ +-------+ +---------+---+-------+ | Given | 12/09/19 | 50,000 | | Chest | | | 13 2:54 | Units | | | | | PM PDT | | | | +-------+ +---------+---+-------+ +---+---+ | | | +---+---+ documented in this encounter
--- OUTSIDE RECORDS SUMMARY | ~2019-09-13 | XMS | Encounter Summary ---
Demographics + + + | Address | [address] | | | [place] [address] | + + + | Home Phone | | + + + | Preferred Language | Unknown | + + + | Marital Status | Single | + + + | Jainism Affiliation | Unknown | + + + | Race | Unknown | + + + | Ethnic Group | Unknown | + + + Author + + + | Author | [facility] | | | and [place] | + + + | Organization | [facility] | | | [...] Team Providers + +------+ + | Care Car Checker Name | Role | Phone | + +------+ + | Erick Bernstein DO | PCP | | + +------+ + Encounter Details +--------+ + + + + | Date | Type | Department | Care Team | Description | +--------+ + + + + | 10/27/ | Orders Only | [facility] | Warren Crawley, | | | 2016 | | [place] | [address] | | | | | [address] | [place] | | | | | [place], [place] | [address] | | | | | [address] | | | | | | [phone] | | | +--------+ + + + [...] [place] | | | | | | [id number] | | | | | | | [...] | | | | | by [facility] [place] Read Only, | | | | | | [facility] [place] ([id number]), | | | | | | image editor Deniz Rios | | | | | [...] | | uploaded. Historically converted procedure from [facility] Epic | | | environment | | [...]
--- OUTSIDE RECORDS SUMMARY | ~2019-09-13 | XMS | Encounter Summary ---
Demographics + + + | Address | [address] | | | [place] [address] | + + + | Home Phone | | + + + | Preferred Language | Unknown | + + + | Marital Status | Single | + + + | Orthodox Affiliation | CHR | + + + | Race | White | + + + | Ethnic Group | Not or | + + + Author + + + | Author | [facility] | + + + | Organization | [facility] | + + + | Address | Unknown | + + + | Phone | Unavailable | + + + Support + + + + + | Name | Relationship | Address | Phone | + + + + + | Joanne Zhang | [place] | [address] | | | | | [place] | | | | | [address] | | + + + + + | Linh Pate | ECON | Unknown | | + + + + + Care Team Providers + +------+ + | Care Stable Attendant Name | Role | Phone | + +------+ + | Erick Bernstein DO | PCP | | + +------+ + Encounter Details +--------+ + + + + | Date | Type | Department | Care Team | Description | +--------+ + + + + | 12/04/ | Abstract | [facility] at | Kyle Ambrose MD | | | 2012 | | [facility] [address] | [address] | | | | | [place] Mailcode: CH9A | [facility] [address] | | | | | [facility] | [place] [address] | | | | | and [place], | [phone] | | | | | Building | | | | | | Floor [place], [place] | | | | | | [address] | | | | | | [phone] | | | +--------+ + + + [...]
--- OUTSIDE RECORDS SUMMARY | ~2019-09-13 | XMS | Encounter Summary ---
Demographics + + + | Address | [address] | | | [place] [address] | + + + | Home Phone | | + + + | Preferred Language | Unknown | + + + | Marital Status | Single | + + + | Tenriism Affiliation | CHR | + + + | Race | White | + + + | Ethnic Group | Not or | + + + Author + + + | Author | [facility] | + + + | Organization | [facility] | + + + | Address | Unknown | + + + | Phone | Unavailable | + + + Support + + + + + | Name | Relationship | Address | Phone | + + + + + | Joanne Zhang | [place] | [address] | | | | | [place] | | | | | [address] | | + + + + + | Linh Pate | ECON | Unknown | | + + + + + Care Team Providers + +------+ + | Care Bingo Worker Name | Role | Phone | [...] STERNAL CLOSURE. | | | | Rd [facility] | | Cultures x 3 | | | | Hospital Admitting | | | | | | Desk Located on the | | | | | | 9th floor | | | | | | [place], [place] | | | | | | [address] | | | +--------+---------+ + + + [...] Course: Mr. Josef Ramos was admitted to [facility] on 11/26/2012 for heparin bridge for LV [...] Lifelong non-smoker Core Measures: Diagnosis of Acute CT: No Diagnosis of CHF: Yes. Patient is on an RICKIE-I/ARB.. Patient is on a beta-jessy at dis charge. Follow Up: Cardiothoracic Surgery - Narendra Lunsford MD - 2 weeks PCP - Erick Bernstein DO - on d/c from [facility] Cardiology - Kyle Chavez MD - 4-6 weeks Disposition: [facility] Condition: fair Discharging Physician: Electronically signed by: Kathy WINSTON, PA-C Department of Surgery | Division of Cardiothoracic Surgery Attending Physician: Narendra Lunsford MD OPERATIVE NOTE Date: 11/29/2012 Attending Surgeon: NARENDRA LUNSFORD MD Beef Pluck Trimmer(s): Kathy Castro PA-C No residents of the [...] present during the team pause: Surgeon, assistant director of security, nursing, anesthesia, perfusion. Findings at Surgery: The [...] care unit. Narendra Lunsford MD, FACS, FACC Automation Operator, Department of Surgery Head, Adult Cardiac Surgery Co-Director, Multidisciplinary Heart Valve Clinic [facility] | [email or web address] of Skin documented in this encounter Medications at Time [...] 1 hour (Electronically Signed) Joseph Lewis PA-C [facility] Cardiac Surgery athy Castro PA - 12/20 [...] outpatient follow up. MD MEHDI Moses MD [facility] [address]s8[place] [address] [facility] DEPARTMENT: [id number] NEPHROLOGY [facility] Place of Service: IP CSN: [id number] Suggested Modifier: GC Resident Involved rotain, Josse [...] plan. Josse Rojas MD Nephrology Fellow Pager [phone] SUBJECTIVE & INTERVAL EVENTS: No significant overnight [...] injection 7 Units 7 Units Subcutaneous Q8H fnwfkeglmygr-pljg-ysacmrtb (aka CEROVITE) liquid 15 mL 15 mL [...] plan of care. MD MEHDI Moses MD [facility] [address] [address] [facility] DEPARTMENT: [id number] [facility] NEPHROLOGY [facility] Place of Service: CSN: [id number] Suggested Modifier: GC Resident Involved Josse Mcgowan [...] as he would likely not need further WILDFIRE PREVENTION SPECIALIST. Hypernatremia- Mild, likely due to impaired access [...] plan. Josse Rojas MD Nephrology Fellow Pager [phone] SUBJECTIVE & INTERVAL EVENTS: No significant overnight [...] injection 7 Units 7 Units Subcutaneous Q8H jllbjffmboyn-lweb-wspjqnrd (aka CEROVITE) liquid 15 mL 15 mL [...] JOHNNY RASCON PA-C Division of Cardiothoracic Surgery [facility] Mail Code [id number] [address] [address] [address] Mehdi Earl M D - 12/18/2012 8:04 AM PDTI performed a history and physical examination of the patient and discussed his management with the resident. I reviewed the resident s note and agree wit h the documented findings and plan of care. MD MEHDI Moses MD [address] [address] [facility] DEPARTMENT: [id number] NEPHROLOGY [facility] Place of Service: CSN: [id number] Suggested Modifier: GC Resident Involved Josse Mcgowan MD - 12/18/2012 8:04 AM PDT Nephrology Consult Progress Note IDENTIFICATION: PATIENT NAME: Josef Ramos : 1945 DATE OF ADMISSION: 11/26/2012 DATE OF SERVICE: 12/18/2012 HOSPITAL DAY: PCP: rEick Bernstein DO CHIEF COMPLAINT: f/u KOURTNEY IMPRESSION [...] HCV Ab, HBVsAb, and [facility]. RECOMMENDATIONS: See recommendations above in bold. We will continue to follow and offer additional recommendations as his clinical course unfo lds. Patient was seen and staffed with Dr. Blue, who agrees with the assessment and plan. Josse Rojas MD Nephrology Fellow Pager [phone] SUBJECTIVE & INTERVAL EVENTS: No significant overnight [...] injection 7 Units 7 Units Subcutaneous Q8H ksiimkyyasit-guor-sprnajjc (aka CEROVITE) liquid 15 mL 15 mL [...] CALAZIME) topical paste, , Topical, QID PRN ephizpcagovf-rbuj-gykmdwzd (aka CEROVITE) liquid 15 mL, 15 mL, [...] Intake/Output Summary (Last 24 hours) at 12/17/12 0931 Last data filed at 12/17/12 0610 Gross [...] up outpatient HD/tunneled HD line EPIC DEPARTMENT: [id number] NEPHROLOGY [facility] Place of Service: - IP CSN: [id number] Suggested Modifier: None Sidney Olson MD - [...] CALAZIME) topical paste, , Topical, QID PRN adgmbdwhnlwk-fctz-cevujecw (aka CEROVITE) liquid 15 mL, 15 mL, [...] to set up outpatient HD [facility] DEPARTMENT: [id number]- [facility] NEPHROLOGY [facility] Place of Service: [address]16 - IP CSN: [id number] Suggested Modifier: None Johnny Morataya PA- C [...] JOHNNY RASCON PA-C Division of Cardiothoracic Surgery [facility] Mail Code L353 [address] [address] Veronika Bolaños MD - 12/15/2012 1:06 PM PDT 8[facility] DAILY PROGRESS NOTE (Resident) Team Pager: [phone] Attendin Author: Veronika Palacios MD Date:12/15/2012 Attending Aitchbone Breaker: Operating Surgeon: MD Narendra Ellison MD POD [...] - 12/15/2012 9:02 AM PDT 8[facility] ATTENDING LEGAL PRACTICE MANAGER PROGRESS NOTE Team Pager: [phone] Attendin I saw and examined the patient [...] Department of Anesthesiology and Ольга-Operative Medicine [address] [facility] [place] [address] [facility] DEPARTMENT: [facility] ICU CARDIAC [[id number]] Place of Service:- Inpatient Date of Service: 12/15/2012 CSN: [id number] Suggested Modifier: GC - Resident Involved Suggested CPT: TO WIDE ARE[employer]WORK SYSTEMS ADMINISTRATOR 9: 10 AM Veronika Bolaños MD - 12/14/2012 12:42 PM PDTFormatting of this note might be differ ent from the original. [facility] DAILY PROGRESS NOTE (Resident) Team Pager: [phone] Attendin Author: Veronika Palacios MD Date:12/14/2012 Attending Aitchbone Breaker: Operating Surgeon: MD Narendra Ellison MD POD [...] Glycemic control: NPH/lispro Veronika Palacios MD utch Heidi guerrero MD - 12/14/2012 8:13 AM PDT 8[facility] ATTENDING LEGAL PRACTICE MANAGER DAILY PROGRESS NOTE Team Pager: [phone] Attendin Date:12/14/2012 Author: HEIDI NIETO MD Attestation: [...] is currently criti ryan ill. EPIC DEPARTMENT: [facility] ICU CARDIAC [[id number]] Place of Service:13406- Inpatient Date of Service: 12/14/2012 CSN: [id number] Suggested Modifier: GC - Resident Involved Suggested CPT: TO WIDE AREA NETWORK SYSTEMS ADMINISTRATOR Respiratory: Recent Labs Basename 12/12/12 0819 12/12/12 [...] (aka CALAZIME) topical paste Topical QID PRN ayhmnpivytik-hqyx-lhpuewpj (aka CEROVITE) liquid 15 mL 15 mL [...] different from the db brewster 8[facility] ATTENDING LEGAL PRACTICE MANAGER PROGRESS NOTE Team Pager: [phone] Attendin TTE performed this AM discussed with [...] Department of Anesthesiology and Ольга-Operative Medicine [address] [facility] [facility] [place] [address] [facility] DEPARTMENT: [facility] ICU CARDIAC [[id number]] Place of Service:- Inpatient Date of Service: 12/13/2012 CSN: [id number] Suggested Modifier: None Suggested CPT: TO WIDE AREA NETWORK SYSTEMS ADMINISTRATOR 3: 12 PM PDTVeronika Palacios MD - 12/13/2012 9:07 AM PDTFormatting of this note might be differ ent from the original. 8[facility] DAILY PROGRESS NOTE (Resident) Team Pager: [phone] Attendin Author: Veronika Palacios MD Date:12/13/2012 Attending Aitchbone Breaker: Operating Surgeon: MD Narendra Ellison MD POD [...] closure 12/10/12 - Dialysis catheter place in [facility]; CRRT initiated for acute kidney failure and [...] 2+ edema Skin: normal Tubes/Lines (insertion date): [facility] dialysis catheter (12/10/12) Leslie catheter (12/04/12) [facility] 12/12 Feeding: Tube feeds Analgesia:oxycodone Sedation: None Thromboprophylaxis: Heparin infusion Head of Bed: Head of Bed >30 degrees Ulcer Prophylaxis:Omeprazole Glycemic control: Insulin infusion Veronika Palacios MD ilda Banerjee - 12/13/2012 9:03 AM PDTTransthoracic echocardiogram completed. Final report to kwesi [place]. eidi Nieto MD - 7:41 AM PDT 8[facility] ATTENDING LEGAL PRACTICE MANAGER DAILY PROGRESS NOTE Team Pager: [phone] Attendin Date:12/13/2012 Author: HEIDI NIETO MD Attestation: [...] is currently criti ryan ill. [facility] DEPARTMENT: [facility] ICU CARDIAC [[id number]] Place of Service:- Inpatient Date of Service: 12/13/2012 CSN: [id number] Suggested Modifier: GC - Resident Involved Suggested CPT: TO WIDE AREA NETWORK SYSTEMS ADMINISTRATOR Respiratory: Recent Labs Basename 12/12/12 0819 12/12/12 0400 FIO2 .4 .40 PH 7.48* 7.46* PCO2 36 38 PO2 112* 113* HCO3 26 27 ABGEXCESS 3.2 3.0 Renal: Intake/Output Summary (Last 24 hours) at 12/13/12 0741 Last data filed at 12/13/12 0600 Gross per 24 hour Intake 40730.7 ml Output 33524 ml Net 152.7 ml ID: Temp (24hrs), [...] - 12/12/2012 11:07 PM PDT 8[facility] ATTENDING LEGAL PRACTICE MANAGER NIGHT PROGRESS NOTE Team Pager: [phone] Attendin Events of the day, patient condition, [...] patient who is critically ill ([facility] [id number] ) Oriana Ram MD Sterile Products Processor Department of Anesthesiology and Ольга-Operative Medicine Critical Care EPIC DEPARTMENT: [facility] ICU CARDIAC [[id number]] Place of Service:- Inpatient Date of Service: 12/12/2012 CSN: [id number] Suggested Modifier: Suggested CPT: TO WIDE AREA NETWORK SYSTEMS ADMINISTRATOR Data below used in this assessment: Hemodynamics: [...] 12/12/12 2200 Gross per 24 hour Intake 28888.4 ml Output 21187 ml Net -166.6 ml Recent Labs Basename [...] [facility] DAILY PROGRESS NOTE (Resident) Team Pager: [phone] Attendin Author: Veronika Palacios MD Date:12/12/2012 Attending Aitchbone Breaker: Operating Surgeon: MD Narendra Ellison MD POD [...] - 12/12/2012 8:05 AM PDT 8[facility] ATTENDING LEGAL PRACTICE MANAGER DAILY PROGRESS NOTE Team Pager: [phone] Attendin Date:12/12/2012 Author: HEIDI NIETO MD Attestation: [...] is currently criti ryan ill. [facility] DEPARTMENT: [facility] ICU CARDIAC [[id number]] Place of Service:- Inpatient Date of Service: 12/12/2012 CSN: [id number] Suggested Modifier: GC - Resident Involved Suggested CPT: TO WIDE AREA NETWORK SYSTEMS ADMINISTRATOR Hemodynamics: Hemodynamic Drips: Arterial BP Mean: 76 [...] 12/12/12 0700 Gross per 24 hour Intake 62392.16 ml Output 03693 ml Net -382.84 ml ID: Temp (24hrs), [...] (aka CALAZIME) topical paste Topical QID PRN ipderjskswqp-klqj-csnovlsz (aka CEROVITE) liquid 15 mL 15 mL [...] % ophthalmic ointment Both Eyes Q6 H Florecnia Bender MD - 12/11/2012 11:21 PM PDT 8[facility] ATTENDING LEGAL PRACTICE MANAGER NIGHT PROGRESS NOTE Team Pager: [phone] Attendin Events of the day, patient condition, [...] patient who is critically ill ([facility] [id number] ) Oriana Ram MD Sterile Products Processor Department of Anesthesiology and Ольга-Operative Medicine Critical Care EPIC DEPARTMENT: [facility] ICU CARDIAC [[id number]] Place of Service:- Inpatient Date of Service: 12/11/2012 [facility]: [id number] Suggested Modifier: Suggested CPT: TO WIDE AREA NETWORK SYSTEMS ADMINISTRATOR Data below used in this assessment: Hemodynamics: [...] at 12/11/122199 Gross per 24 hour Intake 96818.36 ml Output 78370 ml Net -761.64 ml Recent Labs Basename [...] (aka CALAZIME) topical paste Topical QID PRN cwsngupuuzsg-yzxh-bdjytyuj (aka CEROVITE) liquid 15 mL 15 mL [...] - 12/11 9:15 AM PDT 8[facility] ATTENDING LEGAL PRACTICE MANAGER DAILY PROGRESS NOTE Team Pager: [phone] Attending Pager: [phone] Author: MARCY SIFUENTES DO ATTESTATION: I saw [...] who is critically ill. Marcy Sifuentes DO [employer]ile [employer] Processor Department of Anesthesiology and Perioperative Medicine [facility] DEPARTMENT: [facility] ICU CARDIAC [[id number]] Place of Service:12143- Inpatient Date of Service: 12/11/2012 CSN: [id number] Suggested Modifier: GC - Resident Involved Suggested CPT: TO WIDE AREA NETWORK SYSTEMS ADMINISTRATOR Precious Ramires MD - 5:58 AM PDT 8[facility] DAILY PROGRESS NOTE (Resident) Team Pager: [phone] Attendin Author: PRECIOUS ALVARADO MD Date:12/11/2012 Attending Aitchbone Breaker: Operating Surgeon: MD Narendra Figueroa MD POD [...] Ulcer Prophylaxis:Omeprazole Glycemic control: Insulin infusion PRECIOUS ALVARDAO MD Johnny Mcmahon PA- Sofia - 12/11/2012 [...] of plans. JOHNNY MERAZ PA-C [facility] DEPARTMENT: [facility] ICU CARDIAC [[id number]] Place of Service:- Inpatient Date of Service: 12/11/2012 CSN: [id number] Suggested Modifier: None Suggested CPT: TO WIDE AREA NETWORK SYSTEMS ADMINISTRATOR Mack Malagon MD - 12/10/2012 2:15 PM PDT [facility] DEPARTMENT: [facility], [facility]- [id number] Place of Service: - Date of Service: 12/10/2012 CSN: [id number] Modifiers:GC Resident Involved: yes Suggested CPT: 38440 Critical Care, Initial 30-74 minutes 36 minutes total time spent in Critical care independent of procedures. My impression, recent events and assesment are at the top of this note. Today's data which were reviewed are listed below the A&P I saw and examined [facility]F [facility]. I agree with the written [...] Value Range Status 12/10/2012 Final Value: STUDY: [facility] CHEST 1 VIEW 12/10/12 05:41:00 HISTORY: Evaluate [...] to correct too quickly/ over-correct. [facility] DEPARTMENT: [id number] [facility] NEPHROLOGY [facility] Place of Service: CSN: [id number] Suggested Modifier: GC Resident Involved abib, [place] [...] topical paste Topical QID PRN SARANYA Young lfgaeynkrcth-hmdh-dgjertfj (aka CEROVITE) liquid 15 mL 15 mL [...] 8[facility] DAILY PROGRESS NOTE (Resident) Team Pager: [phone] Attendin Author: PRECIOUS ALVARADO MD Date:12/10/2012 Attending Aitchbone Breaker: Operating Surgeon: MD Narendra Green MD POD [...] with her findings and plan. [facility] DEPARTMENT: [id number]- [facility] NEPHROLOGY [facility] Place of Service: CSN: [id number] Suggested Modifier: GC Resident Involved enia Parish [...] topical paste Topical QID PRN SARANYA Young pcgbdsqzamcy-ykzc-xztkuctj (aka CEROVITE) liquid 15 mL 15 mL [...] [facility] DAILY PROGRESS NOTE (fellow) Team Pager: [phone] Attendin Author: Veronika Palacios MD Date:12/09/2012 Attending Aitchbone Breaker: Operating Surgeon: MD Narendra Snyder MD POD [...] different from the or iginal. 8[facility] ATTENDING LEGAL PRACTICE MANAGER DAILY PROGRESS NOTE Team Pager: [phone] Attending Pager: [phone] Author: ELMIRA SALGUERO MD ATTESTATION: I saw and evaluated the patient at the bedside together with Dr. Palacios. Please see their note for a detailed rounding summary. I reviewed the documented findings, relevant data, and recent imaging available. I agree with the assessment and plan as described in [facility] resident's note with the following exceptions/additions as noted below. HPI: 67 yo man with hx of CAD s/p 3V CABG (DE LA ROSA --> LAD, SVG --> OM, PDA) on 11/29/12, development al delay, morbid obesity, VT, LV thrombus, HTN, and CKD (baseline Cr ~1.5) who returned [facility]ness [...] who is critically ill. Elmira Salguero MD [employer] Processoremployee relations specialist Pulmonary and Critical Care Medicine [facility] DEPARTMENT: [facility]- [id number] Place of Service: - Date of Service: 12/09/2012 CSN: [id number] Modifiers: Resident Involved: yes Suggested CPT: 21744 Critical Care, Initial 30-74 minutes Mack Malagon MD - 11/24 8:08 PM PDT [facility] DEPARTMENT: [facility]- [id number] Place of Service: - Date of Service: 12/08/2012 CSN: [id number] Modifiers: Resident Involved: yes Suggested CPT: 13244 Critical Care, Initial 30-74 minutes 42 minutes total time spent in Critical care independent of procedures. My impression, recent events and assesment are at the top of this note. Today's data which were reviewed are listed below the A&P I saw and examined [facility]SEF [facility]OS [facility]. I agree with the written [...] Date Value Range Status 12/08/2012 Final Value: VA CHEST 1 VIEW, 12/08/12 05:49:00 COMPARISON: 12/07/12 [...] closed Dispo: Critical, stable to SICU Dictation: [id number] HELEN GEE MD Cardiothoracic Surgery Fellow Elmira Rutherford MD - 12/08/2012 7:32 AM PDT 8[facility] ATTENDING LEGAL PRACTICE MANAGER DAILY PROGRESS NOTE Team Pager: [phone] Attending Pager: [phone] Author: ELMIRA SALGUERO MD ATTESTATION: I saw and evaluated the patient at the bedside together with Dr. Palacios. Please see their note for a detailed rounding summary. I reviewed the documented findings, relevant data, and recent imaging available. I agree with the assessment and plan as described in [facility] resident's note with the following exceptions/additions as noted below. HPI: 67 yo man with hx of CAD s/p 3V CABG (DE LA ROSA --> LAD, SVG --> OM, PDA) on 11/29/12, development al delay, morbid obesity, VT, LV thrombus, HTN, and CKD (baseline Cr ~1.5) who returned to [facility]ness [...] who is critically ill. Elmira Salguero MD [employer] Processoremployee relations specialist Pulmonary and Critical Care Medicine [facility] DEPARTMENT: [facility], [facility]- [id number] Place of Service: - Date of Service: 12/08/2012 CSN: [id number] Modifiers: Resident Involved: yes Suggested CPT: 78790 Critical Care, Initial 30-74 minutes Veronika Bolaños MD - 6:04 AM PDT 8[facility] DAILY PROGRESS NOTE (fellow) Team Pager: [phone] Attendin Author: Veronika Palacios MD Date:12/08/2012 Attending Aitchbone Breaker: Operating Surgeon: MD Narendra Snyder MD POD [...] might be different from the mónica ginal. [facility] DEPARTMENT: [facility]- [id number] Place of Service: - Date of Service: 12/07/2012 CSN: [id number] Modifiers:GC Resident Involved: yes Suggested CPT: 39213 Critical Care, Initial 30-74 minutes 33 minutes total time spent in Critical care independent of procedures. My impression, recent events and assesment are at the top of this note. Today's data which were reviewed are listed below the A&P I saw and examined [facility]F [facility]. I agree with the written [...] Value Range Status 12/07/2012 Final Value: STUDY: [facility] CHEST 1 VIEW 12/07/12 06:14:00 CLINICAL DATA: [...] 8[facility] DAILY PROGRESS NOTE (fellow) Team Pager: [phone] Attendin Author: Veronika Palacios MD Date:12/07/2012 Attending Aitchbone Breaker: Operating Surgeon: MD Narendra Snyder MD POD [...] different from the or iginal. 8[facility] ATTENDING LEGAL PRACTICE MANAGER DAILY PROGRESS NOTE Team Pager: [phone] Attending Pager: [phone] Author: ELMIRA SALGUERO MD ATTESTATION: I saw and evaluated the patient at the bedside together with Dr. Palacios. Please see their note for a detailed rounding summary. I reviewed the documented findings, relevant data, and recent imaging available. I agree with the assessment and plan as described in [facility] resident's note with the following exceptions/additions as noted below. HPI: 67 yo man with hx of CAD s/p 3V CABG (DE LA ROSA --> LAD, SVG --> OM, PDA) on 11/29/12, development al delay, morbid obesity, VT, LV thrombus, HTN, and CKD (baseline Cr ~1.5) who returned [facility] [...] open chest - renal consult and recs ([facility] care) -- watch for dialysis needs - cont heparin infusion, titrate to heparin levels 0.3 -- 0.5, ATIII >0.5 - trophic tube feeds - I/O: do not allow to become significantly more negative than 1L I have spent 35 minutes in the care and management of this patient (not including procedure s), who is critically ill. Elmira Salguero MD [employer] Processoremployee relations specialist Pulmonary and Critical Care Medicine [facility] DEPARTMENT: [facility]- [id number] Place of Service: Date of Service: 12/07/2012 CSN: [id number] Modifiers:GC Resident Involved: yes Suggested CPT: 22492 Critical Care, Initial 30-74 minutes Mack Malagon MD - 11/24 10:17 PM PDT [facility] DEPARTMENT: [facility], [facility]- [id number] Place of Service: [facility] Date of Service: 12/06/2012 CSN: [id number] Modifiers:GC Resident Involved: yes Suggested CPT: 51636 Critical Care, Initial 30-74 minutes 43 minutes total time spent in Critical care independent of procedures. My impression, recent events and assesment are at the top of this note. Today's data which were reviewed are listed below the A&P I saw and examined [facility]F [facility]. I agree with the written [...] 8[facility] DAILY PROGRESS NOTE (fellow) Team Pager: [phone] Attendin Author: Veronika Palacios MD Date:12/06/2012 Attending Aitchbone Breaker: Operating Surgeon: MD Narendra Snyder MD POD [...] different from the or iginal. 8[facility] ATTENDING LEGAL PRACTICE MANAGER DAILY PROGRESS NOTE Team Pager: [phone] Attending Pager: [phone] Author: ELMIRA SALGUERO MD ATTESTATION: I saw and evaluated the patient at the bedside together with Dr. Palacios. Please see their note for a detailed rounding summary. I reviewed the documented findings, relevant data, and recent imaging available. I agree with the assessment and plan as described in [facility] resident's note with the following exceptions/additions as noted below. HPI: 67 yo man with hx of CAD s/p 3V CABG (DE LA ROSA --> LAD, SVG --> OM, PDA) on 11/29/12, development al delay, morbid obesity, VT, LV thrombus, HTN, and CKD (baseline Cr ~1.5) who returned [facility] [...] who is critically ill. Elmira Salguero MD [employer] Processoremployee relations specialist Pulmonary and Critical Care Medicine [facility] DEPARTMENT: [facility], [facility]- [id number] Place of Service: Date of Service: 12/06/2012 CSN: [id number] Modifiers:GC Resident Involved: yes Suggested CPT: 52973 Critical Care, Initial 30-74 minutes ack Thompson MD - 11/24 8:36 PM PDT [facility] DEPARTMENT: [facility], [facility]- [id number] Place of Service: Date of Service: 12/05/2012 CSN: [id number] Modifiers:GC Resident Involved: yes Suggested CPT: 41619 Critical Care, Initial 30-74 minutes 32 minutes total time spent in Critical care independent of procedures. My impression, recent events and assesment are at the top of this note. Today's data which were reviewed are listed below the A&P I saw and examined JOSEF RAMOS [facility]. I agree with the written [...] Value Range Status 12/05/2012 Final Value: STUDY: VA CHEST 1 VIEW 12/05/12 07:56:00 INDICATION: Sternotomy [...] 8CSI DAILY PROGRESS NOTE (fellow) Team Pager: [phone] Attendin Author: Veronika Palacios MD Date:12/05/2012 Attending Aitchbone Breaker: Operating Surgeon: MD Narendra Snyder MD POD [...] different from the or iginal. 8CSI ATTENDING LEGAL PRACTICE MANAGER DAILY PROGRESS NOTE Team Pager: [phone] Attending Pager: [phone] Author: ELMIRA SALGUERO MD ATTESTATION: I saw [...] CKD (baseline Cr ~1.5) who returned to [facility] ICU [facility] [place] for shortness [...] who is critically ill. Elmira Salguero MD [employer] Processoremployee relations specialist Pulmonary and Critical Care Medicine [facility] DEPARTMENT: [facility], [facility]- [id number] Place of Service: - Date of Service: 12/05/2012 CSN: [id number] Modifiers:GC Resident Involved: yes Suggested CPT: 99826 Critical Care, Initial 30-74 minutes Mack Malagon MD - 11/24 9:33 PM PDT [facility] DEPARTMENT: [facility], [facility]- [id number] Place of Service: - Date of Service: 12/04/2012 CSN: [id number] Modifiers:ADRIAN Resident Involved: yes Suggested CPT: 54674 Critical Care, Each additional 30 minutes x 4 93 minutes total time spent in Critical care independent of procedures. My impression, recent events and assesment are at the top of this note. Today's data which were reviewed are listed below the A&P I saw and examined JOSEF RAMOS [facility] the [facility]. I agree with the written [...] Value Range Status 12/04/2012 Final Value: STUDY: VA CHEST 1 VIEW 12/04/12 15:25:00 INDICATION: Left [...] his chest open Dispo: Critical Dictation # [id number] HELEN GEE MD Cardiothoracic Surgery Fellow Narendra [...] Electronically signed Narendra Lunsford MD, FACS, FACC Automation Operator, Department of Surgery Head, Adult Cardiac Surgery Co-Director, Multidisciplinary Heart Valve Clinic [facility] | [email or web address] [email or web address] [employer] Elmira Rutherford MD - 0 12/04/2012 3:16 PM PDT 8CSI ATTENDING LEGAL PRACTICE MANAGER DAILY PROGRESS NOTE Team Pager: [phone] Attending Pager: [phone] Author: ELMIRA SALGUERO MD ATTESTATION: I saw [...] CKD (baseline Cr ~1.5) who returned to [facility] ICU [facility] [place] for shortness [...] - consider HD if UOP does not pick up driver I have spent 120 minutes in the care and management of this patient (not including procedur es), who is critically ill. Elmira Salguero MD [employer] Processorem[employer]ee relations specialist Pulmonary and Critical Care Medicine [facility] DEPARTMENT: [facility], [facility]- [id number] Place of Service: Date of Service: 12/04/2012 CSN: [id number] Modifiers:GC Resident Involved: yes Suggested CPT: 86188 Critical Care, Each additional 30 minutes x 2 and 31648 Critical Care, Initial 30-74 minutes aceJoseph roman [...] CTA bilateral GI Obese, soft non-tender Skin [place]/warm/dry, sternal and leg incisions are c,d,i Chemistries: [...] to ICU (Electronically Signed) Joseph Lewis PA-C [facility] Cardiac Surgery Gloria Christie MD - 3 3:25 PM PDT Cardiothoracic Surgery Progress Note Procedure: CABG x 3 POD # 3 Past 24 hour Events Transfer to [facility], on heparin gtt for LV thrombus Subjective: [...] - 12/02/2012 5:40 PM PST 8CSI ATTENDING LEGAL PRACTICE MANAGER NIGHT NOTE Team Pager: [phone] Attending Pager: [phone] Date:12/02/2012 Author: DALJIT HARRELL MD Attestation: I [...] M.D. Department of Anesthesiology & Ольга-Operative Medicine [address] [facility] [place] [address] [facility] DEPARTMENT: [facility] ICU CARDIAC [[id number]] Place of Service:- Inpatient Date of Service: 12/02/2012 CSN: [id number] Suggested Modifier: Suggested CPT: TO WIDE AREA NETWORK SYSTEMS ADMINISTRATOR Data Below Used in this Assessment: Hemodynamics: [...] - 12/02/2012 10:07 AM PST 8CSI ATTENDING LEGAL PRACTICE MANAGER PROGRESS NOTE Team Pager: [phone] Attendin I saw and examined the patient [...] M.A. Department of Anesthesiology and Ольга-Operative Medicine [address] [facility] [place] [address] [facility] DEPARTMENT: [facility] ICU CARDIAC [[id number]] Place of Service:15606- Inpatient Date of Service: 12/02/2012 CSN: [id number] Suggested Modifier: GC - Resident Involved Suggested CPT: TO WIDE AREA NETWORK SYSTEMS ADMINISTRATOR 1: 24 PM Veronika Lloyd MD - 12/02/2012 9:18 AM PSTFormatting of this note might be differ ent from the original. 8CSI DAILY PROGRESS NOTE (Cardiac) Team Pager: [phone] Attendin Author: Veronika Palacios MD Date:12/02/2012 Attending Aitchbone Breaker: Operating Surgeon: MD Narendra Ellison MD POD#3 [...] s/p CABG x [address], CVA, arrythmia, cardiogenic shock LV thrombus Asa, [...] be different from purvi sahni. 8CSI ATTENDING LEGAL PRACTICE MANAGER NIGHT NOTE Team Pager: [phone] Attending Pager: [phone] Date:12/01/2012 Author: DALJIT HARRELL MD Attestation: I saw and evaluated Josfe Ramos. I reviewed the documented findings, all da ta and the recent imaging available. My independent assessment and care plan is documented below. NOTE: Events and plan placed at top of note for rapid review. Data used in preparing this assessment appear below the plan section and have been reviewed if they appear. HPI: Joesf Ramos is a 67 y.o. male s/p [...] Department of Anesthesiology & Ольга-Operative Medicine [address] [id number] [place] [address] DEPARTMENT: [facility] ICU CARDIAC [[id number]] Place of Service:- Inpatient Date of Service: 12/01/2012 CSN: [id number] Suggested Modifier: Suggested CPT: TO WIDE AREA NETWORK SYSTEMS ADMINISTRATOR Data Below Used in this Assessment: Hemodynamics: [...] 8CSI DAILY PROGRESS NOTE (Cardiac) Team Pager: [phone] Attendin Author: Veronika Palacios MD Date:12/01/2012 Attending Aitchbone Breaker: Operating Surgeon: MD Narendra Ellison MD POD#2 [...] s/p CABG x [address], CVA, arrythmia, cardiogenic shock LV thrombus Decrease [...] - 12/01/2012 7:35 AM PST 8CSI ATTENDING LEGAL PRACTICE MANAGER DAILY PROGRESS NOTE Team Pager: [phone] Attendin Date:12/01/2012 Author: HEIDI NIETO MD Attestation: [...] is currently criti ryan ill. [facility] DEPARTMENT: [facility] ICU CARDIAC [[id number]] Place of Service:82485- Inpatient Date of Service: 12/01/2012 [facility]: [id number] Suggested Modifier: GC - Resident Involved Suggested CPT: TO WIDE AREA NETWORK SYSTEMS ADMINISTRATOR Hemodynamics: Hemodynamic Drips: Arterial BP Mean: 70 [...] - 11/30/2012 7:21 PM PST 8CSI ATTENDING LEGAL PRACTICE MANAGER NIGHT NOTE Team Pager: [phone] Attending Pager: [phone] Date:11/30/2012 Author: DALJIT HARRELL MD Attestation: I [...] 500, Insulin 7, Milrinone 0.125, NE 0.03, SENIOR BACKUP ADMINISTRATOR 2 Vent: 3L NC CI 3.1 SVO2 [...] Department of Anesthesiology & Ольга-Operative Medicine [address] [facility]. [facility]-[address] [place] [id number] [place] [address] DEPARTMENT: [facility] ICU CARDIAC [[id number]] Place of Service:- Inpatient Date of Service: 11/30/2012 CSN: [id number] Suggested Modifier: GC - Resident Involved Suggested CPT: TO WIDE AREA NETWORK SYSTEMS ADMINISTRATOR Data Below Used in this Assessment: Hemodynamics: [...] 11/30/12 1900 Gross per 24 hour Intake 23004.26 ml Output 4055 ml Net 7505.26 ml [...] - 11/30/2012 12:37 PM PST 8CSI ATTENDING LEGAL PRACTICE MANAGER PROGRESS NOTE Team Pager: [phone] Attendin Urine has large leukocyte esterase, bacteria, and 103 WBC. Presumptive urosepsis Continue abx and volume resuscitation Milrinone to support LV in setting of resuscitation 14 additional minutes spent in the care and management of this patient who is critically i ll Heidi Nieto M.D., M.A. Department of Anesthesiology and Ольга-Operative Medicine [address] [place] [phone] [place] [address] DEPARTMENT: [facility] ICU CARDIAC [[id number]] Place of Service:57864- Inpatient Date of Service: 11/30/2012 CSN: [id number] Suggested Modifier: None Suggested CPT: TO WIDE AREA NETWORK SYSTEMS ADMINISTRATOR 1: 59 PM Elba Grady - 11/30/2012 11:05 AM PSTTransthoracic echocardiogram completed. Final report to follow. Heidi Munoz MD - 03/2013 7:54 AM PST 8CSI ATTENDING LEGAL PRACTICE MANAGER DAILY PROGRESS NOTE Team Pager: [phone] Attendin Date:11/30/2012 Author: HEIDI NIETO MD Attestation: [...] is currently criti ryan ill. [facility] DEPARTMENT: [facility] ICU CARDIAC [[id number]] Place of Service:- Inpatient Date of Service: 11/30/2012 CSN: [id number] Suggested Modifier: GC - Resident Involved Suggested CPT: TO WIDE AREA NETWORK SYSTEMS ADMINISTRATOR Hemodynamics: Hemodynamic Drips: Arterial BP Mean: 66 [...] 8CSI DAILY PROGRESS NOTE (Cardiac) Team Pager: [phone] Attendin Author: MIHIR MCGRATH MD Date:11/30/2012 Attending Aitchbone Breaker: Operating Surgeon: MD Narendra Ellison MD POD# [...] s/p CABG x [address], CVA, arrythmia, cardiogenic shock Will add milrinone [...] Name: Josef Ramos Date of : 1945 [facility] Medical Record Number: [id number] Date: 11/29/2012 Attending Surgeon: NARENDRA LUNSFORD MD Beef Pluck Trimmer(s): Kathy Castro PA-C No residents of the [...] The patient was positioned appropriately. The following body service team member s were present during the team pause: Surgeon, assistant director of security, nursing, anesthesia, perfusion. Findings at Surgery: The [...] Electronically signed Narendra Lunsford MD, FACS, FACC Automation Operator, Department of Surgery Head, Adult Cardiac Surgery Co-Director, Multidisciplinary Heart Valve Clinic [facility] | [email or web address] oseph Lewis - 013 12:50 PM PST [...] CABG tomorrow (Electronically Signed) Joseph Lewis PA-C [facility] Cardiac Surgery oseph Hanks - 11/27/2012 11 [...] mg daily (Electronically Signed) Joseph Lewis PA-C [facility] Cardiac Surgery documented in this encounter Plan [...] did goahead and | | placed a Dunnegan per Dr. Juan Manuel from anesthesiology in [...] then made note of his hemodynamics andthe Dunnegan parameters. The sternum | | was closed [...] in critical butstable condition.Helen Gee, MDCJW / [id number] / [id number] / | | [id number] / T: 12/08/2012 Electronically signedNarendra Lunsford MD, FACS, | | FACCAssociate Professor, Department of SurgeryC[facility], Adult Cardiac SurgeryCo-Director, | | Multidisciplinary Heart Valve [facility]Phone: [phone] | | [phone] | [email or web address] [email or web address] [employer] | |fluid and some clot. Although, this [...] note of his hemodynamics and | |the Dunnegan parameters. The sternum was closed with three [...] Gee MD | |CJW / HS | |[id number] / [id number] / [id number] / | | | | | | | |Electronically signed | |Narendra Lunsford MD, FACS, FACC | |Automation Operator, Department of Surgery | |Head, Adult Cardiac Surgery | |Co-Director, Multidisciplinary Heart Valve Clinic | |[facility] | | | | | | |[email or web address].S[employer] [email or web address] [employer] | + + CAPILLARY BLOOD GLUCOSE (NO [...] + + | Performing | Address | City/State[facility] | Phone Number | | Organization | | | | + + + + + | [facility] | [address] | [place], [place] | | | KAILYN MAZA OF JOHN | [facility] | [address] | | | TESTS | | | [...] LUPEAM | [address] | [place], [place] | | | SHAUNNA POINT OF CARE | [facility] | [address] | | | TESTS | | | [...] | + + + + + | [facility] | [address] | [place] [address] | | | SERVICES, CORE | PARK [...] | | | LABORATORY | | | FINNISH | | | SERVICES, | | | [...] [facility] POWELL | [address] | [place] [address] | | | SERVICES, TOI | PARK [...] | + + + + + | [facility] | [address] | [place] [address] | | | SERVICES, TOI | CRYSTAL [...] | + + + + + | [facility] | [address] | [place] [address] | | | TANIA, CORE | PARK [...] CARLOS | [address] | [place], [place] | | | KAILYN MAZA OF JOHN | [facility] | [address] | | | TESTS | | | [...] (H) | 60 - 99 mg/dL | [facility] - | | | GLUCOSE, | | [...] GONZALEZ | [address] | [place], [place] | | | SHAUNNA POINT OF CARE | [address] | [address] | | | TESTS | | | [...] GONZALEZ | [address] | [place], [place] | | | KAILYN MAZA OF JOHN | [address] | [address] | | | TESTS | | | [...] CARLOS | [address] | [place], [place] | | | SHAUNNA DOVER OF [facility] | [address] | [address] | | | TESTS | | | [...] | | | LABORATORY | | | FINNISH | | | SERVICES, | | | | | | CORE | | + + + + + + | EGFR NON | 18 | mL/min | [facility] | | | -EFARIN | | | LABORATORY | | | [...] | + + + + + | [facility] | [address] | [place] [address] | | | SERVICES, CORE | CRYSTAL [...] | + + + + + | [facility] | [address] [facility] | [place] [address] | | | SERVICES, TOI | CRYSTAL [...] | + + + + + | [facility] | [address] | [place] [address] | | | TANIA, TOI | CRYSTAL [...] - MARQUAM | [address] | [place], [place] | | | SHAUNNA POINT OF CARE | [address] | [address] | | | TESTS | | | [...] (H) | 60 - 99 mg/dL | [facility] - | | | GLUCOSE, | | [...] + + + | [facility] GONZALE[facility] | [address] | [place], [place] | | | KAILYN MAZA OF [facility] | [address] | [address] | | | TESTS | | | [...] [facility] | [address] | [place], [place] | | | KAILYN MAZA OF JOHN | [address] | [address] | | | TESTS | | | [...] [facility] | [address] | [place] [address] | | | SERVICES, CORE | CRYSTAL [...] - CARLOS | [address] | [place], [place] | | | KAILYN MAZA OF CARE | [facility] | [address] | | | TESTS | | | [...] (H) | 60 - 99 mg/dL | [facility] - | | | GLUCOSE, | | [...] GONZALEZ | [address] | [place], [place] | | | SHAUNNA POINT OF CARE | [address] | [address] | | | TESTS | | | [...] | + + + + + | [facility] | [address] | [place] [address] | | | SERVICES, CORE | CRYSTAL [...] | + + + + + | [facility] | [address] | [place] [address] | | | SERVICES, CORE | CRYSTAL [...] | | | LABORATORY | | | FINNISH | | | SERVICES, | | | [...] | + + + + + | [facility] | [address] | [place] [address] | | | SERVICES, CORE | CRYSTAL [...] (H) | 60 - 99 mg/dL | [facility] - | | | GLUCOSE, | | [...] GONZALEZ | [address] | [place], [place] | | | KAILYN MAZA OF CARE | [address] | [address] | | | TESTS | | | [...] MARKATHERINEAM | [address] | [place], [place] | | | KAILYN MAZA OF JOHN | [address] | [address] | | | TESTS | | | [...] | + + + + + | [facility] | [address] [facility] | [place] [address] | | | TOI MARIN | CRYSTAL [...] MARQUAM | [address] | [place], [place] | | | SHAUNNA POINT OF CARE | [address] | [address] | | | TESTS | | | [...] GONZALEZ | [address] | [place], [place] | | | SHAUNNA POINT OF CARE | [address] | [address] | | | TESTS | | | | + + + + + X-RAY PORTABLE CHEST 1 VIEW (12/19/2012 6:46 AM PDT) + + + + + + | Component | Value | Ref Range | Performed | Pathologist | | | | | At | Signature | + + + + + + | X-RAY | STUDY: VA CHEST 1 VIEW | | | | [...] | + + + + + | [facility] | [address] | [place] [address] | | | SERVICES, CORE | CRYSTAL [...] MARQUAM | [address] | [place], [place] | | | KAILYN MAZA OF CARE | [address] | [address] | | | TESTS | | | [...] | + + + + + | [facility] | [address] [facility] | [place] [address] | | | TANIA, TOI | PARK [...] | + + + + + | [facility] | [address] | [place] [address] | | | TOI MARIN | CRYSTAL [...] [facility] | [address] | [place] [address] | | | SERVICES, CORE | PARK [...] (H) | 60 - 99 mg/dL | [facility] | | | PLASMA | | | [...] | | | LABORATORY | | | FINNISH | | | SERVICES, | | | [...] [facility] | [address] | [place] [address] | | | SERVICES, CORE | PARK [...] + | [place] [facility] - | [address] | [place] [address] | | | [place] | | | [...] + + | [facility] | [address] | [place] [address] | | | DIAGNOSTIC | [address] [...] GONZALEZ | [address] | [place], [place] | | | KAILYN MAZA OF JOHN | [address] | [address] | | | TESTS | | | [...] MARQUAM | [address] | [place], [place] | | | KAILYN MAZA OF CARE | [address] | [address] | | | TESTS | | | [...] LUPEAM | [address] | [place], [place] | | | KAILYN MAZA OF CARE | [address] | [address] | | | TESTS | | | [...] GONZALEZ | [address] | [place], [place] | | | KAILYN MAZA OF JOHN | [address] | [address] | | | TESTS | | | | + + + + + X-RAY PORTABLE CHEST 1 VIEW (12/18/2012 6:39 AM PDT) + + + + + + | Component | Value | Ref Range | Performed | Pathologist | | | | | At | Signature | + + + + + + | X-RAY | STUDY: VA CHEST 1 VIEW | | | | [...] [facility] | [address] | [place] [address] | | | SERVICES, CORE | CRYSTAL [...] | + + + + + | [facility] | [address] | [place] [address] | | | SERVICES, CORE | PARK [...] | + + + + + | [facility] | [address] | [place] [address] | | | SERVICES, CORE | PARK [...] | + + + + + | [facility] | [address] | [place] [address] | | | TANIA, TOI | CRYSTAL [...] | | | LABORATORY | | | FINNISH | | | SERVICES, | | | [...] | + + + + + | [facility] | [address] | [place] [address] | | | SERVICES, CORE | PARK [...] CARLOS | [address] | [place], [place] | | | KAILYN MAZA OF JOHN | [address] | [address] | | | TESTS | | | [...] - CARLOS | [address] | [place], [place] | | | KAILYN MAZA OF CARE | [facility] | [address] | | | TESTS | | | [...] (H) | 60 - 99 mg/dL | [facility] - | | | GLUCOSE, | | [...] GONZALEZ | [address] | [place], [place] | | | KAILYN MAZA OF CARE | [facility] | [address] | | | TESTS | | | [...] CARLOS | [address] | [place], [place] | | | KAILYN MAZA OF CARE | [address] | [address] | | | TESTS | | | | + + + + + X-RAY PORTABLE CHEST 1 VIEW (12/17/2012 7:17 AM PDT) + + + + + + | Component | Value | Ref Range | Performed | Pathologist | | | | | At | Signature | + + + + + + | X-RAY | STUDY: VA CHEST 1 VIEW | | | | [...] [facility] | [address] | [place] [address] | | | SERVICES, CORE | PARK [...] | + + + + + | [facility] | [address] | [place] [address] | | | SERVICESTOI | [address] [...] [facility] | [address] | [place] [address] | | | SERVICES, CORE | PARK [...] (H) | 60 - 99 mg/dL | [facility] | | | PLASMA | | | [...] | | | LABORATORY | | | FINNISH | | | SERVICES, | | | [...] [facility] | [address] | [place] [address] | | | SERVICES, CORE | PARK [...] MAR[facility] | [address] | [place], [place] | | | SHAUNNA POINT OF CARE | [address] | [address] | | | TESTS | | | [...] + + + | BR[facility] GONZALEZ | [address] | [place], [place] | | | KAILYN MAZA OF [facility] | [address] | [address] | | | TESTS | | | [...] [facility] | [address] | [place], [place] | | | KAILYN MAZA OF JOHN | [facility] | [address] | | | TESTS | | | [...] + + | [facility] GONZALEZ | [address] | [place], [place] | | | SHAUNNA POINT OF [facility] | [facility] | [address] | | | TESTS | | | | + + + + + X-RAY PORTABLE CHEST 1 VIEW (12/16/2012 7:07 AM PDT) + + + + + + | Component | Value | Ref Range | Performed | Pathologist | | | | | At | Signature | + + + + + + | X-RAY | STUDY: VA CHEST 1 VIEW | | | | [...] [facility] | [address] | [place] [address] | | | SERVICES, CORE | PARK [...] [facility] | [address] | [place] [address] | | | SERVICES, CORE | PARK [...] [facility] | [address] | [place] [address] | | | SERVICES, CORE | PARK [...] | + + + + + | [facility] | [address] | [place] [address] | | | SERVICES, CORE | CRYSTAL [...] | | | LABORATORY | | | FINNISH | | | SERVICES, | | | [...] | + + + + + | [facility] | [address] | [place] [address] | | | SERVICES, CORE | CRYSTAL [...] (H) | 60 - 99 mg/dL | [facility] - | | | GLUCOSE, | | [...] GONZALEZ | [address] | [place], [place] | | | KAILYN MAZA OF CARE | [address] | [address] | | | TESTS | | | [...] MAR[facility] | [address] | [place], [place] | | | KAILYN MAZA OF CARE | [address] | [address] | | | TESTS | | | [...] for children less than 6 months | [facility] | | can be found in the Hemostasis Section general instructions of the | LABORATORY | | [facility] Lab Manual: | TANIA CORE | | [email or web address] | | + + + + + + + + | Performing | Address | City/State/Zipcode | Phone Number | | Organization | | | | + + + + + | [facility] | [address] | [place] [address] | | | TOI MARIN | CRYSTAL [...] CARLOS | [address] | [place], [place] | | | SHAUNNA DOVER OF [facility] | [address] | [address] | | | TESTS | | | [...] | + + + + + | [facility] | [address] | [place] [address] | | | SERVICES, CORE | CRYSTAL [...] (H) | 60 - 99 mg/dL | [facility] - | | | GLUCOSE, | | [...] GONZALEZ | [address] | [place], [place] | | | SHAUNNA POINT OF CARE | [address] | [address] | | | TESTS | | | [...] | + + + + + | [facility] | [address] | [place] [address] | | | TANIA, TOI | CRYSTAL [...] GONZALEZ | [address] | [place], [place] | | | SHAUNNA POINT OF [facility] | [address] | [address] | | | TESTS | | | | + + + + + X-RAY PORTABLE CHEST 1 VIEW (12/15/2012 5:51 AM PDT) + + + + + + | Component | Value | Ref Range | Performed | Pathologist | | | | | At | Signature | + + + + + + | X-RAY | STUDY: [facility] CHEST 1 VIEW | | | | [...] [facility] | [address] | [place] [address] | | | SERVICES, CORE | PARK [...] [facility] | [address] | [place] [address] | | | SERVICES, CORE | PARK [...] [facility] | [address] | [place] [address] | | | SERVICES, CORE | CRYSTAL [...] | | | LABORATORY | | | FINNISH | | | SERVICES, | | | [...] [facility] | [address] | [place] [address] | | | SERVICES, TOI | CRYSTAL [...] | + + + + + | [facility] | [address] | [place] [address] | | | [facility], TOI | [address] | | [...] (H) | 60 - 99 mg/dL | [facility] - | | | GLUCOSE, | | [...] GONZALEZ | [address] | [place], [place] | | | [facility] | [address] | [address] | | | TESTS | | | [...] CARLOS | [address] | [place], [place] | | | [facility] | [address] | [address] | | | TESTS | | | [...] | + + + + + | [facility] | [address] [facility] [facility] | [place] [address] | | | SERVICES, CORE | PARK [...] GONZALEZ | [address] | [place], [place] | | | SHAUNNA POINT OF [facility] | [address] | [address] | | | TESTS | | | [...] | + + + + + | [facility] | [address] | [place] [address] | | | [place] | | | [...] MARQUAM | [address] | [place], [place] | | | KAILYN [facility]ZA [facility] CARE | [address] | [address] | | | TESTS | | | [...] | + + + + + | [facility] | [address] | [place] [address] | | | TOI MARIN | CRYSTAL [...] (H) | 60 - 99 mg/dL | [facility] | | | GLUCOSE, | | [...] LUPEAM | [address] | [place], [place] | | | [facility]YN [facility] CARE | [address] | [address] | | | TESTS | | | [...] GONZALEZ | [address] | [place], [place] | | | KAILYN MAZA OF JOHN | [facility] | [address] | | | TESTS | | | [...] LUPEAM | [address] | [place], [place] | | | KAILYN MAZA OF CARE | [facility] | [address] | | | TESTS | | | [...] (H) | 60 - 99 mg/dL | [facility] | | | GLUCOSE, | | [...] GONZALEZ | [address] | [place], [place] | | | KAILYN MAAZ OF CARE | [address] | [address] | | | TESTS | | | | + + + + + X-RAY PORTABLE CHEST 1 VIEW (12/14/2012 5:32 AM PDT) + + + + + + | Component | Value | Ref Range | Performed | Pathologist | | | | | At | Signature | + + + + + + | X-RAY | STUDY: VA CHEST 1 VIEW | | | | [...] GONZALEZ | [address] | [place], [place] | | | SHA[facility]NA POINT OF CARE | [address] | [address] | | | TESTS | | | [...] CARLOS | [address] | [place], [place] | | | SHAUNNA DOVER OF [facility] | [facility] | [address] | | | TESTS | | | [...] [facility] | [address] | [place] [address] | | | SERVICES, CORE | PARK [...] | + + + + + | [facility] | [address] | [place] [address] | | | SERVICESTOI | [address] [...] | + + + + + | [facility] | [address] | [place] [address] | | | SERVICES, CORE | PARK [...] | + + + + + | [facility] | [address] | [place] [address] | | | SERVICES, CORE | CRYSTAL [...] CARLOS | [address] | [place], [place] | | | KAILYN MAZA OF JOHN | [address] | [address] | | | TESTS | | | [...] CARLOS | [address] | [place], [place] | | | KAILYN MAZA OF CARE | [facility] | [address] | | | TESTS | | | [...] GONZALEZ | [address] | [place], [place] | | | SHAUNNA POINT OF CARE | [address] | [address] | | | TESTS | | | [...] GONZALEZ | [address] | [place], [place] | | | KAILYN MAZA OF JOHN | [address] | [address] | | | TESTS | | | [...] CARLOS | [address] | [place], [place] | | | KAILYN MAZA OF JOHN | [facility] | [address] | | | TESTS | | | [...] (H) | 60 - 99 mg/dL | [facility] | | | GLUCOSE, | | [...] GONZALEZ | [address] | [place], [place] | | | SHAUNNA POINT OF CARE | [address] | [address] | | | TESTS | | | [...] | + + + + + | [facility] | [address] | [place] [address] | | | SERVICES, CORE | CRYSTAL [...] | + + + + + | [facility] | [address] | [place] [address] | | | SERVICES, CORE | CRYSTAL [...] MARQUAM | [address] | [place], [place] | | | SHAUNNA POINT OF CARE | [address] | [address] | | | TESTS | | | [...] [facility] | [address] | [place] [address] | | | SERVICES, CORE | CRYSTAL [...] | + + + + + | [facility] | [address] | [place] [address] | | | TANIA, TOI | CRYSTAL [...] (H) | 60 - 99 mg/dL | [facility] | | | GLUCOSE, | | [...] + + + | [facility] | [address] | [place], [place] | | | KAILYN MAZA OF [facility] | [address] | [address] | | | TESTS | | | [...] + + + | [facility] | [address] | [place], [place] | | | SHAUNNA POINT OF CARE | [address] | [address] | | | TESTS | | | [...] | + + + + + | [facility] | [address] | [place] [address] | | | SERVICES, CORE | CRYSTAL [...] | + + + + + | [facility] | [address] | [place] [address] | | | TOI MARIN | CRYSTAL [...] | + + + + + | [facility] | [address] [facility] | [place] [address] | | | SERVICES, TOI | CRYSTAL [...] [facility] | [address] | [place] [address] | | | SERVICES, CORE | PARK [...] | + + + + + | [facility] | [address] | [place] [address] | | | SERVICES, CORE | CRYSTAL [...] (H) | 60 - 99 mg/dL | [facility] | | | GLUCOSE, | | [...] GONZALEZ | [address] | [place], [place] | | | K[facility]YN MAZA [facility] CARE | [address] | [address] | | | TESTS | | | [...] MARQUAM | [address] | [place], [place] | | | [facility]YN MAZA [facility] CARE | [address] | [address] | | | TESTS | | | [...] MARQUAM | [address] | [place], [place] | | | KAILYN MAZA OF CARE | [facility] | [address] | | | TESTS | | | [...] (H) | 60 - 99 mg/dL | [facility] | | | GLUCOSE, | | [...] LUPEAM | [address] | [place], [place] | | | SHAUNNA POINT OF CARE | [address] | [address] | | | TESTS | | | [...] GONZALEZ | [address] | [place], [place] | | | KAILYN MAZA OF JOHN | [facility] | [address] | | | TESTS | | | [...] | + + + + + | [facility] | [address] | [place] [address] | | | TANIA, TOI | CRYSTAL [...] [facility] GONZALEZ | [address] | [place], [place] | | | SHAUNNA POINT OF CARE | [address] | [address] | | | TESTS | | | [...] | | + +---------+ + + | [facility] | | | | | [...] [facility] | [address] | [place] [address] | | | SERVICES, CORE | CRYSTAL [...] | + + + + + | [facility] | [address] | [place] [address] | | | SERVICES, TOI | CRYSTAL [...] MARQUAM | [address] | [place], [place] | | | KAILYN MAZA OF CARE | [facility] | [address] | | | TESTS | | | [...] GONZALEZ | [address] | [place], [place] | | | SHAUNNA POINT OF CARE | [address] | [address] | | | TESTS | | | [...] | + + + + + | [facility] | [address] [facility] | [place] [address] | | | SERVICES, CORE | CRYSTAL [...] MARQUAM | [address] | [place], [place] | | | SHA[facility]NA POINT OF CARE | [address] | [address] | | | TESTS | | | [...] (H) | 60 - 99 mg/dL | [facility] | | | GLUCOSE, | | [...] MARQUAM | [address] | [place], [place] | | | KAILYN MAZA OF JOHN | [facility] | [address] | | | TESTS | | | [...] GONZALEZ | [address] | [place], [place] | | | SHAUNNA POINT OF CARE | [address] | [address] | | | TESTS | | | [...] + | [facility] | [address] | [place] [address] | | | SERVICES, TOI | PARK [...] [facility] | [address] | [place] [address] | | | SERVICES, CORE | PARK [...] | + + + + + | [facility] | [address] | [place] [address] | | | SERVICES, CORE | CRYSTAL [...] (H) | 60 - 99 mg/dL | [facility] | | | GLUCOSE, | | [...] GONZALEZ | [address] | [place], [place] | | | [facility] CARE | [address] | [address] | | | TESTS | | | [...] MARQUAM | [address] | [place], [place] | | | SHA[facility]NA POINT OF CARE | [address] | [address] | | | TESTS | | | | + + + + + X-RAY PORTABLE CHEST 1 VIEW (12/12/2012 5:53 AM PDT) + + + + + + | Component | Value | Ref Range | Performed | Pathologist | | | | | At | Signature | + + + + + + | X-RAY | EXAM: VA CHEST 1 VIEW | | | | [...] [facility] | [address] | [place] [address] | | | TOI MARIN | CRYSTAL [...] | + + + + + | [facility] | [address] | [place] [address] | | | SERVICES, CORE | CRYSTAL [...] | + + + + + | [facility] | [address] | [place] [address] | | | SERVICES, TOI | CRYSTAL [...] | + + + + + | [facility] | [address] | [place] [address] | | | SERVICES, CORE | CRYSTAL [...] | + + + + + | [facility] | [address] | [place] [address] | | | SERVICES, CORE | CRYSTAL [...] [facility] | [address] | [place] [address] | | | SERVICES, CORE | PARK [...] | + + + + + | [facility] | [address] | [place] [address] | | | SERVICES, CORE | PARK [...] | + + + + + | [facility] | [address] | [place] [address] | | | SERVICES, CORE | CRYSTAL [...] MARQUAM | [address] | [place], [place] | | | K[facility]YN MA[facility] CARE | [address] | [address] | | | TESTS | | | [...] MARQUAM | [address] | [place], [place] | | | [facility]YN [facility]ZA [facility] CARE | [address] | [address] | | | TESTS | | | [...] GONZALEZ | [address] | [place], [place] | | | SHA[facility]NA POINT OF CARE | [address] | [address] | | | TESTS | | | [...] MARKATHERINEAM | [address] | [place], [place] | | | K[facility]YN MAZA [facility] CARE | [address] | [address] | | | TESTS | | | [...] CARLOS | [address] | [place], [place] | | | SHAUNNA POINT OF CARE | [address] | [address] | | | TESTS | | | [...] + | [facility] | [address] [facility] | [place] [address] | | | SERVICES, TOI | PARK [...] | + + + + + | [facility] | [address] [facility] [facility] | [place] [address] | | | SERVICES, CORE | CRYSTAL [...] | + + + + + | [facility] | [address] | [place] [address] | | | SERVICES, CORE | CRYSTAL [...] MARQUAM | [address] | [place], [place] | | | KAILYN MAZA OF JOHN | [address] | [address] | | | TESTS | | | [...] | + + + + + | [facility] | [address] | [place] [address] | | | TANIA, CORE | CRYSTAL [...] CARLOS | [address] | [place], [place] | | | KAILYN MAZA [facility] CARE | [address] | [address] | | | TESTS | | | [...] (H) | 60 - 99 mg/dL | [facility] | | | GLUCOSE, | | [...] GONZALEZ | [address] | [place], [place] | | | KAILYN MAZA OF JOHN | [address] | [address] | | | TESTS | | | [...] MARQUAM | [address] | [place], [place] | | | KAILNY MAZA OF CARE | [address] | [address] | | | TESTS | | | [...] | + + + + + | [facility] | [address] | [place] [address] | | | SERVICES, CORE | PARK [...] [facility] | [address] | [place] [address] | | | SERVICES, CORE | PARK [...] | + + + + + | [facility] | [address] | [place] [address] | | | SERVICES, CORE | CRYSTAL [...] (H) | 60 - 99 mg/dL | [facility] | | | GLUCOSE, | | [...] GONZALEZ | [address] | [place], [place] | | | KAILYN MAZA OF [facility] | [address] | [address] | | | TESTS | | | [...] MARQUAM | [address] | [place], [place] | | | SHAUNNA POINT OF CARE | [address] | [address] | | | TESTS | | | [...] - CARLOS | [address] | [place], [place] | | | SHA[facility]NA POINT [facility] | [address] | [address] | | | TESTS | | | [...] [facility] | [address] | [place] [address] | | | SERVICES, CORE | PARK [...] | + + + + + | [facility] | [address] | [place] [address] | | | SERVICES, CORE | CRYSTAL [...] | + + + + + | [facility] | [address] [facility] | [place] [address] | | | SERVICES, TOI | CRYSTAL [...] | + + + + + | [facility] | [address] | [place] [address] | | | SERVICES, CORE | CRYSTAL [...] MARKATHERINEAM | [address] | [place] | | | SHAUNNA POINT OF CARE | [address] | [address] | | | TESTS | | | [...] MARQUAM | [address] | [place], [place] | | | KAILYN MAZA OF JOHN | [address] | [address] | | | TESTS | | | [...] GONZALEZ | [address] | [place], [place] | | | KAILYN MAZA OF JOHN | [address] | [address] | | | TESTS | | | [...] [facility] | [address] | [place] [address] | | | SERVICES, TOI | PARK [...] | + + + + + | [facility] | [address] | [place] [address] | | | SERVICES, CORE | CRYSTAL [...] [facility] | [address] | [place] [address] | | | SERVICES, CORE | PARK [...] [facility] | [address] | [place] [address] | | | SERVICES, CORE | PARK [...] CARLOS | [address] | [place], [place] | | | [facility] | [address] | [address] | | | TESTS | | | [...] | + + + + + | [facility] | [address] | [place] [address] | | | SERVICES, CORE | PARK [...] (H) | 60 - 99 mg/dL | [facility] | | | GLUCOSE, | | [...] GONZALEZ | [address] | [place], [place] | | | KAILYN MAZA OF JOHN | [facility] | [address] | | | TESTS | | | [...] MARQUAM | [address] | [place], [place] | | | SHA[facility] POINT [facility] | [facility] | [address] | | | TESTS | | | | + + + + + ATIII ACTIVITY, PLASMA (12/11/2012 6:54 AM PDT) + + + + + + | Component | Value | Ref Range | Performed | Pathologist | | | | | At | Signature | + + + + + + | ATIII | 0.56 (LL) | 0.86 - 1.18 | [facility] | | | ACTIVITY, | | U/mL [...] for children less than 6 months | [facility] | | can be found in the Hemostasis Section general instructions of the | LABORATORY | | [facility] Lab Manual: | SERVICES, CORE | | [email or web address] | | + + + + + + + + | Performing | Address | City/State/Zipcode | Phone Number | | Organization | | | | + + + + + | [facility] | [address] | [place] [address] | | | SERVICES, CORE | PARK [...] [facility] | [address] | [place] [address] | | | SERVICES, CORE | PARK [...] [facility] | [address] | [place] [address] | | | SERVICES, CORE | PARK [...] | + + + + + | [facility] | [address] | [place] [address] | | | SERVICES, TOI | CRYSTAL [...] [facility] | [address] | [place] [address] | | | SERVICES, CORE | [address] | | | + + + + + X-RAY PORTABLE CHEST 1 VIEW (12/11/2012 6:00 AM PDT) + + + + + + | Component | Value | Ref Range | Performed | Pathologist | | | | | At | Signature | + + + + + + | X-RAY | STUDY: VA CHEST 1 VIEW | | | | [...] | | + +---------+ + + | [facility] | | | | | [...] MARQUAM | [address] | [place], [place] | | | K[facility]YN MAZA [facility] CARE | [address] | [address] | | | TESTS | | | [...] GONZALEZ | [address] | [place], [place] | | | [facility]ARE | [address] | [address] | | | TESTS | | | [...] MARQUAM | [address] | [place], [place] | | | [facility] CARE | [address] | [address] | | | TESTS | | | [...] [facility] | [address] | [place] [address] | | | SERVICES, CORE | PARK [...] [facility] | [address] | [place] [address] | | | SERVICES, CORE | CRYSTAL [...] | + + + + + | [facility] | [address] [facility] | [place] [address] | | | SERVICES, CORE | PARK [...] [facility] | [address] | [place] [address] | | | SERVICES, CORE | PARK [...] | + + + + + | [facility] | [address] | [place] [address] | | | SERVICES, CORE | [address] | | | + + + + + MAGNESIUM, PLASMA (12/11/2012 2:00 AM PDT) + +-------+ + + + | Component | Value | Ref Range | Performed | Pathologist | | | | | At | Signature | + +-------+ + + + | MAGNESIUM,P | 2.4 | 1.8 - 2.5 mg/dL | [facility] | | | ELINAMA | | | [...] | + + + + + | [facility] | [address] | [place] [address] | | | SERVICES, CORE | CRYSTAL [...] + + | Performing | Address | City/State[facility] | Phone Number | | Organization | | | | + + + + + | [facility] | [address] | [place], [place] | | | KAILYN MAZA OF JOHN | [facility] | [address] | | | TESTS | | | [...] LUPEAM | [address] | [place], [place] | | | KAILYN MAZA OF JOHN | [facility] | [address] | | | TESTS | | | [...] | + + + + + | [facility] | [address] | [place] [address] | | | SERVICES, CORE | CRYSTAL [...] (H) | 60 - 99 mg/dL | [facility] - | | | GLUCOSE, | | [...] GONZALEZ | [address] | [place], [place] | | | SHA[facility]NA PO[facility]ARE | [address] | [address] | | | TESTS | | | [...] GONZALEZ | [address] | [place], [place] | | | KAILYN MAZA OF JOHN | [facility] | [address] | | | TESTS | | | [...] | + + + + + | [facility] | [address] | [place] [address] | | | SERVICES, CORE | CRYSTAL [...] (H) | 60 - 99 mg/dL | [facility] - | | | GLUCOSE, | | [...] + + + + + | [facility] | [address] | [place], [place] | | | [facility]NA [facility] | [address] | [address] | | | TESTS | | | [...] | + + + + + | [facility] | [address] | [place] [address] | | | SERVICES, CORE | CRYSTAL [...] [facility] | [address] | [place] [address] | | | SERVICES, CORE | PARK [...] [facility] | [address] | [place] [address] | | | TANIA, TOI | CRYSTAL [...] MARQUAM | [address] | [place], [place] | | | [facility] | [address] | [address] | | | TESTS | | | [...] GONZALEZ | [address] | [place], [place] | | | [facility] | [address] | [address] | | | TESTS | | | [...] | + + + + + | [facility] | [address] | [place] [address] | | | SERVICES, CORE | CRYSTAL [...] [facility] | [address] | [place] [address] | | | SERVICES, CORE | CRYSTAL [...] [facility] | [address] | [place] [address] | | | SERVICES, CORE | PARK [...] [facility] | [address] | [place] [address] | | | TOI MARIN | CRYSTAL [...] | + + + + + | [facility] | [address] | [place] [address] | | | TOI MARIN | CRYSTAL [...] (H) | 60 - 99 mg/dL | [facility] - | | | GLUCOSE, | | [...] GONZALEZ | [address] | [place], [place] | | | [facility] | [address] | [address] | | | TESTS | | | | + + + + + X-RAY PORTABLE CHEST 1 VIEW (12/10/2012 5:27 PM PDT) + + + + + + | Component | Value | Ref Range | Performed | Pathologist | | | | | At | Signature | + + + + + + | X-RAY | STUDY:VA CHEST 1 VIEW | | | | [...] | | + +---------+ + + | [facility] | | | | | [...] | + + + + + | [facility] | [address] | [place] [address] | | | SERVICES, TOI | PARK [...] MARQUAM | [address] | [place], [place] | | | SHA[facility]NA [facility] | [address] | [address] | | | TESTS | | | [...] Location (Unit/Room #) | | | 8 [facility] room 7 Diagnosis: [id number] Coronary artery disease Indications: | | | [...] blood return. A | | | 5 Palestinian Triple lumen Power PICC SOLO catheter was [...] PICC | | | Catheter Lot Number [id number]; There was good blood return from all [...] #) 8 [facility] room 7Diagnosis: | | [id number] Coronary artery diseaseIndications: (Select all that apply) [...] non-pulsatile blood return. A 5 | | Palestinian Triple lumen Power PICC SOLO catheter was placed using the modified Seldinger | | technique on the third attempt. At the time of insertion, vessel size was appropriate | | for the catheter size. PICC Catheter: A 55cm catheter was used for placement. The | | PICC catheter was trimmed 0cm, remaining catheter length 55 cm. PICC Catheter Lot | | Number [id number]; There was good blood return from all [...] + + + + | XRAY | STUDY:VA CHEST PICC LINE | | | | [...] | | + +---------+ + + | [facility] DEPARTMENT OF | | | | | [...] (H) | 60 - 99 mg/dL | [facility] - | | | GLUCOSE, | | [...] + | [facility] | [address] | [place], [place] | | | [place] POINT OF CARE | [address] | [address] | | | TESTS | | | [...] + + + | [facility] | [address] | [place], [place] | | | SHA[place] POINT OF CARE | [address] | [address] | | | TESTS | | | [...] [facility] | [address] | [place] [address] | | | SERVICES, CORE | PARK [...] - [facility] | [address] | [place], [place] | | | [place] POINT OF CARE | [address] | [address] | | | TESTS | | | [...] | + + + + + | [facility] | [address] | [place] [address] | | | SERVICES, CORE | CRYSTAL [...] GONZALEZ | [address] | [place], [place] | | | KAILYN MAZA OF JOHN | [facility] | [address] | | | TESTS | | | [...] [facility] | [address] | [place], [place] | | | [place] POINT OF CARE | [address] | [address] | | | TESTS | | | | + + + + + X-RAY PORTABLE CHEST 1 VIEW (12/10/2012 5:41 AM PDT) + + + + + + | Component | Value | Ref Range | Performed | Pathologist | | | | | At | Signature | + + + + + + | X-RAY | STUDY: VA CHEST 1 VIEW | | | | [...] GON[facility] | [address] | [place], [place] | | | KAILYN MAZA OF CARE | [address] | [address] | | | TESTS | | | [...] [facility] | [address] | [place], [place] | | | [place] POINT OF CARE | [address] | [address] | | | TESTS | | | [...] [facility] | [address] | [place], [place] | | | HAMLIN DOVER [facility] | [facility] | [address] | | | TESTS | | | [...] [facility] | [address] | [place] [address] | | | SERVICES, CORE | PARK [...] [facility] | [address] | [place] [address] | | | SERVICES, CORE | PARK [...] [facility] | [address] | [place] [address] | | | SERVICES, CORE | PARK [...] | + + + + + | [facility] | [address] | [place] [address] | | | SERVICES, CORE | PARK [...] [facility] | [address] | [place] [address] | | | SERVICES, CORE | CRYSTAL [...] | + + + + + | [facility] | [address] | [place] [address] | | | SERVICES, CORE | CRYSTAL [...] (H) | 60 - 99 mg/dL | [facility] - | | | GLUCOSE, | | [...] GONZALEZ | [address] | [place], [place] | | | [place] POINT OF CARE | [address] | [address] | | | TESTS | | | [...] | + + + + + | [facility] | [address] | [place] [address] | | | SERVICES, CORE | CRYSTAL [...] [facility] | [address] | [place], [place] | | | KAILYN MAZA OF CARE | [facility] | [address] | | | TESTS | | | [...] (H) | 60 - 99 mg/dL | [facility] - | | | GLUCOSE, | | [...] D[facility] | [address] | [place], [place] | | | [place] POINT OF CARE | [address] | [address] | | | TESTS | | | [...] GONZALEZ | [address] | [place], [place] | | | KAILYN MAZA OF JOHN | [facility] | [address] | | | TESTS | | | [...] [facility] | [address] | [place], [place] | | | KAILYN MAZA OF CARE | [facility] | [address] | | | TESTS | | | [...] (H) | 60 - 99 mg/dL | [facility] - | | | GLUCOSE, | | [...] CARL[facility] | [address] | [place], [place] | | | [place] POINT OF CARE | [address] | [address] | | | TESTS | | | [...] GONZALEZ | [address] | [place], [place] | | | KAILYN MAZA OF JOHN | [facility] | [address] | | | TESTS | | | [...] [facility] | [address] | [place] [address] | | | SERVICES, CORE | PARK [...] [facility] | [address] | [place] [address] | | | SERVICES, CORE | PARK [...] for children less than 6 months | [facility] | | can be found in the Hemostasis Section general instructions of the | LABORATORY | | [facility] Lab Manual: | SERVICES, CORE | | [email or web address] | | + + + + + + + + | Performing | Address | City/State/Zipcode | Phone Number | | Organization | | | | + + + + + | [facility] | [address] | [place] [address] | | | SERVICES, CORE | PARK [...] | + + + + + | [facility] | [address] | [place] [address] | | | SERVICES, CORE | CRYSTAL [...] (H) | 60 - 99 mg/dL | [facility] - | | | GLUCOSE, | | [...] + + + | BRIDGETTE GONZALEZ | [address] | [place], [place] | | | SHAUNNA POINT OF CARE | [address] | [address] | | | TESTS | | | [...] MARQUAM | [address] | [place], [place] | | | SHAUNNA POINT OF CARE | [facility] | [address] | | | TESTS | | | [...] - MARQUAM | [address] | [place], [place] | | | SHAUNNA POINT OF CARE | [address] | [address] | | | TESTS | | | [...] + + + | BRIDGETTE GONZALEZ | [address] | [place], [place] | | | KAILYN MAZA OF CARE | [address] | [address] | | | TESTS | | | [...] WARD | | | | | | (9145) on 12/11/2012 | | | | | | 8:39:29 AM | | | | + + + + + + + + | Specimen | + + | | + + + + + | Narrative | Performed At | + + + | Please click | [facility] | | on view image for the detailed interpretation from Acision results. | CARDIOLOGY | + + + + + + + + | Performing | Address | City/State/Zipcode | Phone Number | | Organization | | | | + + + + + | [facility] | [address] | [place], [place] | | | CARDIOLOGY | [address] | [address] | | + + + + + [...] GONZALEZ | [address] | [place], [place] | | | SHAUNNA POINT OF CARE | [address] | [address] | | | TESTS | | | [...] MARQUAM | [address] | [place], [place] | | | SHAUNNA POINT OF CARE | [address] | [address] | | | TESTS | | | [...] MARQUAM | [address] | [place], [place] | | | KAILYN MAZA OF CARE | [address] | [address] | | | TESTS | | | [...] GONZALEZ | [address] | [place], [place] | | | SHAUNNA POINT OF CARE | [address] | [address] | | | TESTS | | | [...] MARQUAM | [address] | [place], [place] | | | KAILYN MAZA OF CARE | [address] | [address] | | | TESTS | | | [...] MARQUAM | [address] | [place], [place] | | | KAILYN MAZA OF CARE | [address] | [address] | | | TESTS | | | [...] GONZALEZ | [address] | [place], [place] | | | SHAUNNA POINT OF CARE | [address] | [address] | | | TESTS | | | | + + + + + X-RAY PORTABLE CHEST 1 VIEW (12/09/2012 5:59 AM PDT) + + + + + + | Component | Value | Ref Range | Performed | Pathologist | | | | | At | Signature | + + + + + + | X-RAY | Exam: VA CHEST 1 VIEW, | | | | [...] + + | Performing | Address | City/State[facility] | Phone Number | | Organization [...] + + + + | [facility] | [address] | [place], [place] | | | SHAUNNA POINT OF CARE | [address] | [address] | | | TESTS | | | [...] GONZALEZ | [address] | [place], [place] | | | KAILYN MAZA OF JOHN | [facility] | [address] | | | TESTS | | | [...] LUPEAM | [address] | [place], [place] | | | KAILYN MAZA OF CARE | [facility] | [address] | | | TESTS | | | [...] (H) | 60 - 99 mg/dL | [facility] | | | GLUCOSE, | | [...] CARLOS | [address] | [place], [place] | | | KAILYN MAZA OF CARE | [address] | [address] | | | TESTS | | | [...] BRIDGETTE POWELL | [address] | [place] [address] | | | TOI MARIN | PARK [...] [facility] | [address] | [place] [address] | | | SERVICES, CORE | PARK [...] [facility] | [address] | [place] [address] | | | SERVICES, CORE | CRYSTAL [...] [facility] | [address] | [place] [address] | | | SERVICES, CORE | PARK [...] | + + + + + | [facility] | [address] | [place] [address] | | | SERVICES, CORE | CRYSTAL [...] [facility] | [address] | [place] [address] | | | SERVICES, CORE | CRYSTAL [...] | + + + + + | [facility] | [address] | [place] [address] | | | SERVICES, CORE | CRYSTAL [...] (H) | 60 - 99 mg/dL | [facility] | | | GLUCOSE, | | [...] GONZALEZ | [address] | [place], [place] | | | KAILYN MAZA OF CARE | [address] | [address] | | | TESTS | | | [...] MARQUAM | [address] | [place], [place] | | | KAILYN MAZA OF CARE | [address] | [address] | | | TESTS | | | [...] - MARQUAM | [address] | [place], [place] | | | KAILYN MAZA OF CARE | [address] | [address] | | | TESTS | | | [...] GONZALEZ | [address] | [place], [place] | | | SHAUNNA POINT OF CARE | [address] | [address] | | | TESTS | | | [...] MARQUAM | [address] | [place], [place] | | | KAILYN MAZA OF CARE | [address] | [address] | | | TESTS | | | | + + + + + X-RAY PORTABLE CHEST 1 VIEW (12/08/2012 7:41 PM PDT) + + + + + + | Component | Value | Ref Range | Performed | Pathologist | | | | | At | Signature | + + + + + + | X-RAY | STUDY:VA CHEST 1 VIEW | | | | | PORTABLE | 12/08/12 19:41:00 | | | | | CHEST 1 | COMPARISON:December 07, | | | | | VIEW | 12/08/12 INDICATION: | | | | | | Post mediastinal washout | | | | | | and is closer, left | | | | | | Dunnegan-Ganzcatheter | | | | | | placement [...] [facility] | [address] | [place] [address] | | | SERVICES, CORE | PARK [...] [facility] | [address] | [place] [address] | | | SERVICES, CORE | PARK [...] | + + + + + | [facility] | [address] | [place] [address] | | | SERVICES, CORE | CRYSTAL [...] | + + + + + | [facility] | [address] | [place] [address] | | | SERVICES, CORE | CRYSTAL [...] | + + + + + | [facility] | [address] | [place] [address] | | | SERVICES, TOI | PARK [...] MARQUAM | [address] | [place], [place] | | | SHAUNNA POINT OF CARE | [facility] | [address] | | | TESTS | | | [...] | + + + + + | [facility] | [address] | [place] [address] | | | [place] | | | | + + + [...] + | [facility] | [address] | [place] [address] | | | [facility] | | | | + + + [...] + | [facility] | [address] | [place] [address] | | | [place] | | | [...] + | [facility] | [address] | [place] [address] | | | [place] | | | [...] + | [facility] | [address] | [place] [address] | | | [place] | | | | + + + [...] + | [facility] | [address] | [place] [address] | | | [facility] | | | | + + + [...] + | [facility] | [address] | [place] [address] | | | [place] | | | [...] | | Final SMEAR:AFB not | | [place] | | | | detected CULTURE | [...] + | [facility] | [address] | [place] [address] | | | [place] | | | [...] + | [facility] | [address] | [place] [address] | | | [place] | | | | + + + [...] [facility] | [address] | [place] [address] | | | SERVICES, | [address] [...] | + + + + + | [facility] | [address] | [place] [address] | | | SERVICES, | [address] [...] MARQUAM | [address] | [place], [place] | | | KAILYN MAZA OF CARE | [address] | [address] | | | TESTS | | | [...] CARLOS | [address] | [place], [place] | | | SHAUNNA POINT OF [facility] | [address] | [address] | | | TESTS | | | [...] | + + + + + | [facility] | [address] | [place] [address] | | | SERVICES, CORE | CRYSTAL [...] (H) | 60 - 99 mg/dL | [facility] - | | | GLUCOSE, | | [...] GONZALEZ | [address] | [place], [place] | | | KAILYN MAZA OF JOHN | [facility] | [address] | | | TESTS | | | [...] | + + + + + | [facility] | [address] | [place] [address] | | | SERVICES, CORE | PARK [...] CARLOS | [address] | [place], [place] | | | SHAUNAN POINT OF CARE | [address] | [address] | | | TESTS | | | | + + + + + X-RAY PORTABLE CHEST 1 VIEW (12/08/2012 5:49 AM PDT) + + + + + + | Component | Value | Ref Range | Performed | Pathologist | | | | | At | Signature | + + + + + + | X-RAY | VA CHEST 1 VIEW, | | | | [...] GONZALEZ | [address] | [place], [place] | | | KAILYN MAZA OF JOHN | [address] | [address] | | | TESTS | | | [...] instructions of the | LABORATORY | | [facility] Lab Manual: | SERVICES, CORE | | [email or web address] | | + + + + + + + + | Performing | Address | City/State/Zipcode | Phone Number | | Organization | | | | + + + + + | [facility] | [address] | [place] [address] | | | SERVICES, CORE | CRYSTAL [...] | + + + + + | [facility] | [address] | [place] [address] | | | TANIA, TOI | CRYSTAL [...] MARQUAM | [address] | [place], [place] | | | SHAUNNA POINT OF CARE | [facility] | [address] | | | TESTS | | | | + + + + + MAGNESIUM, PLASMA (12/08/2012 2:00 AM PDT) + +---------+ + + + | Component | Value | Ref Range | Performed | Pathologist | | | | | At | Signature | + +---------+ + + + | MAGNESIUM,P | 3.1 (H) | 1.8 - 2.5 mg/dL | [facility] | | | LASMA | | | [...] | + + + + + | [facility] | [address] | [place] [address] | | | SERVICES, CORE | PARK [...] [facility] | [address] | [place] [address] | | | SERVICES, TOI | CRYSTAL [...] | + + + + + | [facility] | [address] | [place] [address] | | | SERVICES, CORE | CRYSTAL [...] | + + + + + | [facility] | [address] | [place] [address] | | | SERVICES, CORE | CRYSTAL [...] [facility] | [address] | [place] [address] | | | SERVICES, CORE | [...] - CARLOS | [address] | [place], [place] | | | KAILYN MAZA OF CARE | [address] | [address] | | | TESTS | | | [...] (H) | 60 - 99 mg/dL | [facility] | | | GLUCOSE, | | [...] GONZALEZ | [address] | [place], [place] | | | KAILYN MAZA OF JOHN | [address] | [address] | | | TESTS | | | [...] MARQUAM | [address] | [place], [place] | | | SHAUNNA POINT OF CARE | [address] | [address] | | | TESTS | | | [...] | + + + + + | [facility] | [address] | [place] [address] | | | TOI MARIN | CRYSTAL [...] (H) | 60 - 99 mg/dL | [facility] - | | | GLUCOSE, | | [...] MARQUAM | [address] | [place], [place] | | | KAILYN MAZA OF CARE | [address] | [address] | | | TESTS | | | [...] GONZALEZ | [address] | [place], [place] | | | KAILYN MAZA OF JOHN | [facility] | [address] | | | TESTS | | | [...] MARQUAM | [address] | [place], [place] | | | KAILYN MAZA OF CARE | [facility] | [address] | | | TESTS | | | [...] (H) | 60 - 99 mg/dL | [facility] | | | GLUCOSE, | | [...] CARLOS | [address] | [place], [place] | | | KAILYN MAZA OF CARE | [address] | [address] | | | TESTS | | | [...] for children less than 6 months | [facility] | | can be found in the Hemostasis Section general instructions of the | LABORATORY | | [facility] Lab Manual: | SERVICES, CORE | | [email or web address] | | + + + + + + + + | Performing | Address | City/State/Zipcode | Phone Number | | Organization | | | | + + + + + | [facility] | [address] [facility] | [place] [address] | | | SERVICES, CORE | PARK [...] | + + + + + | [facility] | [address] | [place] [address] | | | TOI MARIN | PARK [...] [facility] | [address] | [place] [address] | | | SERVICES, CORE | CRYSTAL [...] MARQUAM | [address] | [place], [place] | | | SHAUNNA POINT OF CARE | [address] | [address] | | | TESTS | | | [...] + + + | BRIDGETTE GONZALEZ | [address] | [place], [place] | | | KAILYN MAZA OF JOHN | [address] | [address] | | | TESTS | | | [...] MARQUAM | [address] | [place], [place] | | | SHAUNNA POINT OF CARE | [address] | [address] | | | TESTS | | | [...] - CARLOS | [address] | [place], [place] | | | HAMLIN DOVER OF [facility] | [address] | [address] | | | TESTS | | | [...] | + + + + + | [facility] | [address] | [place] [address] | | | SERVICES, CORE | PARK [...] GONZALEZ | [address] | [place], [place] | | | KAILYN MAZA OF CARE | [facility] | [address] | | | TESTS | | | [...] LUPEAM | [address] | [place], [place] | | | KAILYN MAZA OF JOHN | [facility] | [address] | | | TESTS | | | [...] (H) | 60 - 99 mg/dL | [facility] - | | | GLUCOSE, | | [...] CARLOS | [address] | [place], [place] | | | KAILYN MAZA OF [facility] | [address] | [address] | | | TESTS | | | [...] | + + + + + | [facility] | [address] [facility] | [place] [address] | | | TOI MARIN | CRYSTAL [...] [facility] | [address] | [place] [address] | | | SERVICES, TOI | CRYSTAL [...] for children less than 6 months | [facility] | | can be found in the Hemostasis Section general instructions of the | LABORATORY | | [facility] Lab Manual: | TOI MARIN | | [email or web address] | | + + + + + + + + | Performing | Address | City/State/Zipcode | Phone Number | | Organization | | | | + + + + + | [facility] | [address] | [place] [address] | | | TOI MARIN | CRYSTAL [...] [facility] | [address] | [place] [address] | | | SERVICES, CORE | PARK [...] + | [facility] | [address] [facility] | [place] [address] | | | SERVICES, CORE | PARK [...] | + + + + + | [facility] | [address] | [place] [address] | | | SERVICES, CORE | CRYSTAL [...] CARLOS | [address] | [place], [place] | | | KAILYN MAZA OF JOHN | [address] | [address] | | | TESTS | | | | + + + + + X-RAY PORTABLE CHEST 1 VIEW (12/07/2012 6:14 AM PDT) + + + + + + | Component | Value | Ref Range | Performed | Pathologist | | | | | At | Signature | + + + + + + | X-RAY | STUDY: VA CHEST 1 VIEW | | | | [...] | | + +---------+ + + | [facility] DEPARTMENT OF | | | | | [...] | + + + + + | [facility] | [address] | [place] [address] | | | SERVICES, TOI | CRYSTAL [...] + + | [facility] | [address] | [place], [place] | | | KAILYN MAZA OF CARE | [address] | [address] | | | TESTS | | | [...] + | [facility] | [address] [facility] | [place] [address] | | | SERVICES, CORE | PARK [...] | + + + + + | [facility] | [address] [facility] | [place] [address] | | | SERVICES, CORE | PARK [...] [facility] | [address] | [place] [address] | | | SERVICES, CORE | CRYSTAL [...] - CARLOS | [address] | [place], [place] | | | KAILYN MAZA OF CARE | [facility] | [address] | | | TESTS | | | [...] (H) | 60 - 99 mg/dL | [facility] - | | | GLUCOSE, | | [...] GONZALEZ | [address] | [place], [place] | | | KAILYN MAZA OF JOHN | [facility] | [address] | | | TESTS | | | [...] | + + + + + | [facility] | [address] | [place] [address] | | | SERVICES, CORE | CRYSTAL [...] CARLOS | [address] | [place], [place] | | | KAILYN MAZA OF JOHN | [facility] | [address] | | | TESTS | | | [...] [facility] | [address] | [place] [address] | | | SERVICES, CORE | [address] | | | + + + + + MAGNESIUM, PLASMA (12/07/2012 1:02 AM PDT) + +---------+ + + + | Component | Value | Ref Range | Performed | Pathologist | | | | | At | Signature | + +---------+ + + + | MAGNESIUM,P | 2.9 (H) | 1.8 - 2.5 mg/dL | [facility] | | | ELINAMA | | | [...] [facility] | [address] | [place] [address] | | | SERVICES, CORE | PARK [...] | + + + + + | [facility] | [address] | [place] [address] | | | SERVICES, CORE | CRYSTAL [...] (H) | 60 - 99 mg/dL | [facility] - | | | GLUCOSE, | | [...] + + | [facility] GON[facility] | [address] [facility] [address] | [place], [place] | | | SHAUNNA POINT OF CARE | [address] | [address] | | | TESTS | | | [...] | + + + + + | [facility] | [address] | [place] [address] | | | SERVICES, CORE | CRYSTAL [...] (H) | 60 - 99 mg/dL | [facility] - | | | GLUCOSE, | | [...] GONZALEZ | [address] | [place], [place] | | | KAILYN MAZA OF JOHN | [address] | [address] | | | TESTS | | | [...] [facility] | [address] | [place] [address] | | | SERVICES, CORE | PARK [...] | + + + + + | [facility] | [address] | [place] [address] | | | SERVICES, CORE | PARK [...] [facility] | [address] | [place] [address] | | | SERVICES, CORE | [address] | | | + + + + + MAGNESIUM, PLASMA (12/06/2012 8:27 PM PDT) + +---------+ + + + | Component | Value | Ref Range | Performed | Pathologist | | | | | At | Signature | + +---------+ + + + | MAGNESIUM,P | 3.0 (H) | 1.8 - 2.5 mg/dL | [facility] | | | LASMA | | | [...] [facility] | [address] | [place] [address] | | | SERVICES, CORE | CRYSTAL [...] valves (2.5 - 3.5) INR APTT | [facility], CORE | | Therapeutic Range: (75 - 120) sec | | | Heparin levels of 0.35 - 0.7 U/mL | | + + + + + + + + | Performing | Address | City/State/Zipcode | Phone Number | | Organization | | | | + + + + + | [facility] | [address] | [place] [address] | | | SERVICES, CORE | CRYSTAL [...] Venous blood: 0.5 - 2.2 mmol/L | [facility] | | Arterial blood: 0.5 - 1.6 mmol/L | LABORATORY | | | SERVICES, CORE | + + + + + + + + | Performing | Address | City/State/Zipcode | Phone Number | | Organization | | | | + + + + + | [facility] | [address] [facility] | [place] [address] | | | SERVICES, CORE | PARK [...] [facility] | [address] | [place] [address] | | | SERVICES, CORE | CRYSTAL [...] | + + + + + | [facility] | [address] | [place] [address] | | | TOI MARIN | CRYSTAL [...] view image for the detailed interpretation from Acision results. | CARDIOLOGY | + + + + + + + + | Performing | Address | City/State/Zipcode | Phone Number | | Organization | | | | + + + + + | [facility] | [address] | [place], [place] | | | CARDIOLOGY | [address] | [address] | | + + + + + [...] | + + + + + | [facility] | [address] | [place] [address] | | | SERVICES, CORE | [address] | | | + + + + + OPERATION RECORD (12/06/2012 2:42 PM PDT) + + | Transcriptions | + + | Helen Gee MD - 12/06/2012 7:20 AM PDT Date: 12/04/2012ttending | | Surgeon: Narendra Lunsford M.D.Beef Pluck Trimmer(s): Helen Alberts | | MARCIA Geereoperative Diagnosis(es):Postoperative [...] for the procedure.Hiram Vaughanglen Lunsford M.D.JONNATHAN / [id number] / | | [id number] / [id number] / T: 12/06/2012 | |placed a sternal [...] | | | |CJW / HS | |[id number] / [id number] / [id number] / | | | | | + [...] [facility] | [address] | [place] [address] | | | SERVICES, CORE | PARK [...] LABORATORY | [address] | [place] [address] | | | SERVICES, CORE | PARK [...] valves (2.5 - 3.5) INR APTT | [facility], CORE | | Therapeutic Range: (75 - 120) sec | | | Heparin levels of 0.35 - 0.7 U/mL | | + + + + + + + + | Performing | Address | City/State/Zipcode | Phone Number | | Organization | | | | + + + + + | [facility] | [address] [facility] | [place] [address] | | | [facility], [facility] [place] [place] | [address] | | | + [...] [facility] | [address] | [place] [address] | | | SERVICES, CORE | PARK [...] [facility] | [address] | [place] [address] | | | SERVICES, CORE | PARK [...] [facility] | [address] | [place] [address] | | | SERVICES, CORE | PARK [...] [facility] | [address] | [place] [address] | | | SERVICES, CORE | PARK [...] | + + + + + | [facility] | [address] | [place] [address] | | | SERVICES, [facility] [place] | [address] | | | + [...] + | [facility] | [address] | [place] [address] | | | SERVICES, CORE | PARK [...] [facility] | [address] | [place] [address] | | | SERVICES, CORE | PARK [...] | + + + + + | [facility] | [address] | [place] [address] | | | SERVICES, CORE | PARK [...] | + + + + + | [facility] | [address] | [place] [address] | | | SERVICES, CORE | CRYSTAL [...] [facility] | [address] | [place], [place] | | | [facility] | [address] | [address] | | | TESTS | | | [...] [facility] | [address] | [place] [address] | | | TOI MARIN | PARK [...] [facility] | [address] | [place] [address] | | | SERVICES, CORE | PARK [...] | | | | | HEIDI CASTILLO ([id number]) | | | | | | on 12/06/2012 3:35:00 PM | | | | + + + + + + + + | Specimen | + + | | + + + + + | Narrative | Performed At | + + + | Please click | [facility] | | on view image for the detailed interpretation from [employer] results. | CARDIOLOGY | + + + + + + + + | Performing | Address | City/State/Zipcode | Phone Number | | Organization | | | | + + + + + | [facility] | [address] | [place], [place] | | | CARDIOLOGY | [address] | [address] | | + + + + + [...] | + + + + + | [facility] | [address] | [place] [address] | | | SERVICES, CORE | CRYSTAL [...] [facility] | [address] | [place] [address] | | | SERVICES, CORE | PARK [...] | + + + + + | [facility] | [address] | [place] [address] | | | SERVICES, [facility] [place] | [address] | | | + [...] | + + + + + | [facility] | [address] | [place] [address] | | | SERVICES, CORE | [address] | | | + + + + + MAGNESIUM, PLASMA (12/06/2012 2:28 AM PDT) + +---------+ + + + | Component | Value | Ref Range | Performed | Pathologist | | | | | At | Signature | + +---------+ + + + | MAGNESIUM,P | 2.9 (H) | 1.8 - 2.5 mg/dL | [facility] | | | L[facility] | | | [...] | + + + + + | [facility] | [address] | [place] [address] | | | SERVICES, CORE | CRYSTAL [...] (H) | 60 - 99 mg/dL | [facility] - | | | GLUCOSE, | | [...] [facility] | [address] | [place], [place] | | | [facility] | [address] | [address] | | | TESTS | | | [...] [facility] | [address] | [place], [place] | | | [facility] | [address] | [address] | | | TESTS | | | [...] + + + | [facility] | [address] | [place] [address] | | | SERVICES, TOI | CRYSTAL [...] [facility] | [address] | [place] [address] | | | SERVICES, CORE | CRYSTAL [...] [facility] | [address] | [place] [address] | | | SERVICES, CORE | PARK [...] | + + + + + | [facility] | [address] | [place] [address] | | | SERVICES, CORE | CRYSTAL [...] | + + + + + | [facility] | [address] | [place] [address] | | | SERVICES, CORE | PARK [...] | + + + + + | [facility] | [address] | [place] [address] | | | SERVICES, CORE | CRYSTAL [...] | + + + + + | [facility] | [address] | [place] [address] | | | TANIA, TOI | CRYSTAL [...] - [facility] | [address] | [place], [place] | | | [facility]YN [facility] | [facility] | [address] | | | TESTS | | | [...] [facility] | [address] | [place] [address] | | | SERVICES, TOI | CRYSTAL [...] | + + + + + | [facility] | [address] | [place] [address] | | | SERVICES, CORE | PARK [...] | + + + + + | [facility] | [address] | [place] [address] | | | SERVICES, CORE | PARK [...] | + + + + + | [facility] | [address] | [place] [address] | | | SERVICES, CORE | CRYSTAL [...] | + + + + + | [facility] | [address] | [place] [address] | | | SERVICES, CORE | CRYSTAL [...] [facility] | [address] | [place], [place] | | | SHAUNNA POINT OF CARE | [address] | [address] | | | TESTS | | | [...] [facility] | [address] | [place], [place] | | | KAILYN MAZA OF CARE | [address] | [address] | | | TESTS | | | [...] GON[facility] | [address] | [place], [place] | | | KAILYN MAZA OF JOHN | [address] | [address] | | | TESTS | | | [...] [facility] | [address] | [place] [address] | | | SERVICES, CORE | PARK [...] [facility] | [address] | [place] [address] | | | SERVICES, CORE | PARK [...] | + + + + + | [facility] | [address] | [place] [address] | | | TOI MARIN | PARK [...] | [address] | [place] | | | SHAUNNA POINT OF CARE | [facility] | [address] | | | TESTS | | | [...] [facility] | [address] | [place] [address] | | | SERVICES, CORE | PARK [...] | + + + + + | [facility] | [address] | [place] [address] | | | SERVICES, CORE | [address] | | | + + + + + X-RAY PORTABLE CHEST 1 VIEW (12/05/2012 7:56 AM PDT) + + + + + + | Component | Value | Ref Range | Performed | Pathologist | | | | | At | Signature | + + + + + + | X-RAY | STUDY: VA CHEST 1 VIEW | | | | [...] + + | [facility] | [address] | [place], [place] | | | KAILYN MAZA OF CARE | [address] | [address] | | | TESTS | | | [...] [facility] | [address] | [place], [place] | | | KAILYN MAZA OF JOHN | [address] | [address] | | | TESTS | | | [...] | [facility] | [address] | [place], [place] | | | KAILYN MAZA OF CARE | [address] | [address] | | | TESTS | | | [...] | + + + + + | [facility] | [address] | [place] [address] | | | SERVICES, CORE | CRYSTAL [...] [facility] | [address] | [place] [address] | | | TANIA, TOI | CRYSTAL [...] | + + + + + | [facility] | [address] [facility] | [place] [address] | | | SERVICES, CORE | PARK [...] [facility] | [address] | [place] [address] | | | SERVICES, CORE | PARK [...] [facility] | [address] | [place] [address] | | | TOI MARIN | CRYSTAL [...] | + + + + + | [facility] | [address] | [place] [address] | | | TOI MARIN | [address] [...] (H) | 60 - 99 mg/dL | [facility] | | | GLUCOSE, | | [...] [facility] | [address] | [place], [place] | | | KAILYN MAZA OF CARE | [address] | [address] | | | TESTS | | | [...] view image for the detailed interpretation from Acision results. | CARDIOLOGY | + + + + + + + + | Performing | Address | City/State/Zipcode | Phone Number | | Organization | | | | + + + + + | [facility] | [address] | [place], [place] | | | CARDIOLOGY | [address] | [address] | | + + + + + [...] | + + + + + | [facility] | [address] | [place] [address] | | | SERVICES, CORE | CRYSTAL [...] (H) | 60 - 99 mg/dL | [facility] | | | GLUCOSE, | | [...] G[facility] | [address] | [place], [place] | | | SHA[facility]NA POINT OF CARE | [address] | [address] | | | TESTS | | | [...] [facility] | [address] | [place], [place] | | | KAILYN MAZA OF CARE | [facility] | [address] | | | TESTS | | | [...] GON[facility] | [address] | [place], [place] | | | KAILYN MAZA OF PAUL [facility] | [address] | [address] | | | TESTS | | | [...] | + + + + + | [facility] | [address] | [place] [address] | | | SERVICES, CORE | PARK [...] | 11.80 (H) | <0.80 ng/mL | [facility] | | | | | | LABORATORY [...] | + + + + + | [facility] | [address] | [place] [address] | | | SERVICES, CORE | CRYSTAL [...] | | + +---------+ + + | [facility] | | | | | [...] - [facility] | [address] | [place], [place] | | | SHAUNNA POINT OF CARE | [address] | [address] | | | TESTS | | | [...] | + + + + + | [facility] | [address] | [place] [address] | | | SERVICES, [facility] [place] [place] | [address] | | | + [...] | + + + + + | [facility] | [address] | [place] [address] | | | SERVICES, CORE | CRYSTAL [...] | + + + + + | [facility] | [address] | [place] [address] | | | SERVICES, CORE | CRYSTAL [...] (H) | 60 - 99 mg/dL | [facility] - | | | GLUCOSE, | | [...] GONZALEZ | [address] | [place], [place] | | | SHAUNNA POINT OF CARE | [address] | [address] | | | TESTS | | | [...] [facility] | [address] | [place] [address] | | | SERVICES, CORE | PARK [...] LABORATORY | [address] | [place] [address] | | | SERVICES, CORE | PARK [...] [facility] | [address] | [place] [address] | | | SERVICES, CORE | CRYSTAL [...] | + + + + + | [facility] | [address] | [place] [address] | | | SERVICES, CORE | CRYSTAL [...] | + + + + + | [facility] | [address] [facility] | [place] [address] | | | SERVICES, CORE | CRYSTAL [...] | + + + + + | [facility] | [address] | [place] [address] | | | SERVICES, CORE | PARK [...] | + + + + + | [facility] | [address] | [place] [address] | | | SERVICES, CORE | CRYSTAL [...] [facility] | [address] | [place] [address] | | | SERVICES, CORE | PARK [...] [facility] | [address] | [place] [address] | | | SERVICES, | [address] [...] | + + + + + | [facility] | [address] | [place] [address] | | | SERVICES, | [address] [...] | + + + + + | [facility] | [address] | [place] [address] | | | SERVICES, CORE | CRYSTAL [...] + + + + | PRODUCT | [id number] | | [facility] | | | UNIT [...] + + + + | BLOOD | 21097 | | [facility] | | | PRODUCT [...] DEPARTMENT OF | [address] | [place] [address] | | | PATHOLOGY | [address] [...] + + + + | PRODUCT | [id number] | | [facility] | | | UNIT [...] + + + + | BLOOD | 21356 | | [facility] | | | PRODUCT [...] | + + + + + | [facility] | [address] | [place] [address] | | | PATHOLOGY | [address] [...] + + + + | PRODUCT | [id number] | | [facility] | | | UNIT [...] + + + + | BLOOD | 43720 | | [facility] | | | PRODUCT [...] | + + + + + | [facility] | [address] | [place] [address] | | | PATHOLOGY | [address] [...] + + + + | PRODUCT | [id number] | | [facility] | | | UNIT [...] + + + + | BLOOD | 90141 | | [facility] | | | PRODUCT [...] | + + + + + | [facility] | [address] | [place] [address] | | | PATHOLOGY | [address] [...] + + + + | PRODUCT | [id number] | | [facility] | | | UNIT [...] + + + + | BLOOD | 02515 | | [facility] | | | PRODUCT [...] DEPARTMENT OF | [address] | [place] [address] | | | PATHOLOGY | [address] [...] + + + + | PRODUCT | [id number] | | [facility] | | | UNIT [...] + + + + | BLOOD | 06625 | | [facility] | | | PRODUCT [...] | + + + + + | [facility] | [address] | [place] [address] | | | PATHOLOGY | [address] [...] + + + + | PRODUCT | [id number] | | [facility] | | | UNIT [...] + + + + | BLOOD | 96029 | | [facility] | | | PRODUCT [...] [facility] | [address] | [place] [address] | | | PATHOLOGY | [address] [...] + + + + | PRODUCT | [id number] | | [facility] | | | UNIT [...] + + + + | BLOOD | 17377 | | [facility] | | | PRODUCT [...] | + + + + + | [facility] | [address] | [place] [address] | | | PATHOLOGY | [address] [...] + + + + | PRODUCT | [id number] | | [facility] | | | UNIT [...] + + + + | BLOOD | 77438 | | [facility] | | | PRODUCT [...] OH DEPARTMENT | [address] | [place] [address] | | | PATHOLOGY | [address] [...] + + + + | PRODUCT | [id number] | | [facility] | | | UNIT [...] + + + + | BLOOD | 38471 | | [facility] | | | PRODUCT [...] | + + + + + | [facility] | [address] | [place] [address] | | | PATHOLOGY | [address] [...] + + + + | PRODUCT | [id number] | | [facility] | | | UNIT [...] + + + + | BLOOD | 55704 | | [facility] | | | PRODUCT [...] DEPARTMENT OF | [address] | [place] [address] | | | PATHOLOGY | [address] [...] + + + + | PRODUCT | [id number] | | [facility] | | | UNIT [...] + + + + | BLOOD | 85042 | | [facility] | | | PRODUCT [...] | + + + + + | [facility] | [address] | [place] [address] | | | PATHOLOGY | [address] [...] + + + + | PRODUCT | [id number] | | [facility] | | | UNIT [...] + + + + | BLOOD | 22654 | | [facility] | | | PRODUCT [...] | + + + + + | [facility] | [address] | [place] [address] | | | PATHOLOGY | [address] [...] + + + + | PRODUCT | [id number] | | [facility] | | | UNIT [...] + + + + | BLOOD | 46935 | | [facility] | | | PRODUCT [...] | + + + + + | [facility] | [address] | [place] [address] | | | PATHOLOGY | [address] [...] [facility] | [address] | [place], [place] | | | THERAPY | [address] | [address] | | + + + + + [...] [facility] | [address] | [place], [place] | | | THERAPY | [address] | [address] | | + + + + + [...] [facility] | [address] | [place], [place] | | | THERAPY | [address] | [address] | | + + + + + [...] [facility] | [address] | [place], [place] | | | THERAPY | [address] | [address] | | + + + + + [...] [facility] | [address] | [place] | | | THERAPY | [address] | [address] | | + + + + + [...] + | [facility] | [address] [facility] | [place], [place] | | | THERAPY | [address] | [address] | | + + + + + [...] | + + + + + | [facility] | [address] | [place] [address] | | | SERVICES, CORE | CRYSTAL [...] | + + + + + | [facility] | [address] | [place] [address] | | | SERVICES, CORE | CRYSTAL [...] [facility] | [address] | [place] [address] | | | SERVICES, TOI | [address] [...] | + + + + + | [facility] | [address] | [place] [address] | | | SERVICES, CORE | CRYSTAL [...] + | [facility] | [address] [facility] | [place], [place] | | | THERAPY | [address] | [address] | | + + + + + [...] [facility] | [address] | [place], [place] | | | THERAPY | [address] | [address] | | + + + + + [...] [facility] | [address] | [place], [place] | | | THERAPY | [address] | [address] | | + + + + + [...] [facility] | [address] | [place], [place] | | | THERAPY | [address] | [address] | | + + + + + [...] [facility] | [address] | [place], [place] | | | THERAPY | [address] | [address] | | + + + + + [...] [facility] | [address] | [place], [place] | | | THERAPY | [address] | [address] | | + + + + + [...] + + + | [facility] | [address] | [place], [place] | | | KAILYN MAZA OF CARE | [address] | [address] | | | TESTS | | | [...] [facility] | [address] | [place] [address] | | | SERVICES, CORE | CRYSTAL [...] | + + + + + | [facility] | [address] | [place] [address] | | | SERVICES, CORE | [address] [...] [facility] | [address] | [place] [address] | | | TOI MARIN | [address] [...] [facility] | [address] | [place] [address] | | | SERVICES, CORE | CRYSTAL [...] | + + + + + | [facility] | [address] | [place] [address] | | | SERVICES, CORE | P[address] [...] [facility] | [address] | [place], [place] | | | THERAPY | [address] | [address] | | + + + + + [...] [facility] | [address] | [place], [place] | | | THERAPY | [address] | [address] | | + + + + + [...] [facility] | [address] | [place], [place] | | | THERAPY | [address] | [address] | | + + + + + [...] [facility] | [address] | [place], [place] | | | THERAPY | [address] | [address] | | + + + + + [...] [facility] | [address] | [place], [place] | | | THERAPY | [address] | [address] | | + + + + + [...] [facility] | [address] | [place], [place] | | | THERAPY | [address] | [address] | | + + + + + X-RAY PORTABLE CHEST 1 VIEW (12/04/2012 3:25 PM PDT) + + + + + + | Component | Value | Ref Range | Performed | Pathologist | | | | | At | Signature | + + + + + + | X-RAY | STUDY: VA CHEST 1 VIEW | | | | [...] | | + +---------+ + + | [facility] | | | | | [...] [facility] | [address] | [place], [place] | | | THERAPY | [address] | [address] | | + + + + + [...] [facility] | [address] | [place], [place] | | | THERAPY | [address] | [address] | | + + + + + [...] [facility] | [address] | [place], [place] | | | THERAPY | [address] | [address] | | + + + + + [...] + | [facility] | [address] [facility] | [place], [place] | | | THERAPY | [address] | [address] | | + + + + + [...] [facility] | [address] | [place], [place] | | | THERAPY | [address] | [address] | | + + + + + [...] [facility] | [address] | [place], [place] | | | THERAPY | [address] | [address] | | + + + + + [...] | + + + + + | [facility] | [address] | [place] [address] | | | SERVICES, CORE | [address] | | | + + + + + X-RAY PORTABLE CHEST 1 VIEW (12/04/2012 9:58 AM PDT) + + + + + + | Component | Value | Ref Range | Performed | Pathologist | | | | | At | Signature | + + + + + + | X-RAY | EXAM: VA CHEST 1 VIEW | | | | [...] The | | | | | | Dunnegan-Jeremi catheterhas | | | | | | [...] | + + + + + | [facility] | [address] | [place] [address] | | | SERVICES, CORE | [address] [...] [facility] | [address] | [place] [address] | | | SERVICES, CORE | CRYSTAL [...] [facility] | [address] | [place] [address] | | | SERVICES, CORE | [address] [...] [facility] | [address] | [place] [address] | | | SERVICES, CORE | P[address] [...] + | [facility] | [address] [facility] | [place] [address] | | | SERVICES, TOI | CRYSTAL [...] | + + + + + | [facility] | [address] | [place] [address] | | | SERVICES, CORE | CRYSTAL [...] [facility] | [address] | [place], [place] | | | KAILYN MAZA OF JOHN | [address] | [address] | | | TESTS | | | [...] + + + | Please click | [facility] | | on view image for the detailed interpretation from Acision results. | CARDIOLOGY | + + + + + + + + | Performing | Address | City/State/Zipcode | Phone Number | | Organization | | | | + + + + + | [facility] | [address] | [place], [place] | | | CARDIOLOGY | [address] | [address] | | + + + + + [...] [facility] | [address] | [place], [place] | | | KAILYN MAZA OF JOHN | [address] | [address] | | | TESTS | | | [...] | + + + + + | [facility] | [address] | [place] [address] | | | SERVICES, CORE | CRYSTAL [...] + | [facility] | [address] | [place] [address] | | | TOI MARIN | CRYSTAL [...] - [facility] | [address] | [place], [place] | | | SHAUNNA POINT OF CARE | [address] | [address] | | | TESTS | | | [...] + | [facility] | [address] [facility] | [place] [address] | | | SERVICES, CORE | [address] [...] | + + + + + | [facility] | [address] | [place] [address] | | | SERVICES, CORE | CRYSTAL [...] (H) | 60 - 99 mg/dL | [facility] | | | GLUCOSE, | | [...] [facility]ON[facility] | [address] | [place], [place] | | | KAILYN MAZA OF CARE | [address] | [address] | | | TESTS | | | [...] | + + + + + | [facility] | [address] | [place] [address] | | | TOI MARIN | [address]YSTAL [...] | + + + + + | [facility] | [address] [facility] | [place] [address] | | | SERVICES, CORE | CRYSTAL [...] [facility] | [address] | [place] [address] | | | SERVICES, CORE | [address] [...] | + + + + + | [facility] | [address] | [place] [address] | | | TOI MARIN | [address]YST[address] [...] | + + + + + | [facility] | [address] | [place] [address] | | | TOI MARIN | [address]ST[address] [...] (H) | 60 - 99 mg/dL | [facility] | | | GLUCOSE, | | [...] [facility] | [address] | [place], [place] | | | SHAUNNA POINT OF CARE | [address] | [address] | | | TESTS | | | [...] | + + + + + | [facility] | [address] | [place] [address] | | | SERVICES, CORE | CRYSTAL [...] [facility] | [address] | [place], [place] | | | K[facility]YN MAZA OF CARE | [address] | [address] | | | TESTS | | | [...] [facility] | [address] | [place], [place] | | | KAILYN MAZA OF JOHN | [address] | [address] | | | TESTS | | | [...] (H) | 60 - 99 mg/dL | [facility] | | | GLUCOSE, | | [...] GON[facility] | [address] | [place], [place] | | | KAILYN MAZA OF CARE | [address] | [address] | | | TESTS | | | [...] [facility] | [address] | [place], [place] | | | SHA[facility]NA POINT OF CARE | [address] | [address] | | | TESTS | | | [...] | + + + + + | [facility] | [address] [address] | [place] [id number] | | | SERVICES, CORE | [address] [...] [facility] | [address] | [place] [address] | | | SERVICES, CORE | CRYSTAL [...] [facility] | [address] | [place] [address] | | | SERVICES, CORE | CRYSTAL [...] | + + + + + | [facility] | [address] | [place] [address] | | | SERVICES, CORE | [address] | | | + + + + + MAGNESIUM, PLASMA (12/02/2012 2:59 AM PST) + +-------+ + + + | Component | Value | Ref Range | Performed | Pathologist | | | | | At | Signature | + +-------+ + + + | MAGNESIUM,P | 2.1 | 1.8 - 2.5 mg/dL | [facility] | | | [facility] | | | [...] | + + + + + | [facility] | [address] | [place] [address] | | | SERVICES, CORE | CRYSTAL [...] [facility] | [address] | [place], [place] | | | KAILYN MAZA OF JOHN | [facility] | [address] | | | TESTS | | | [...] [facility] | [address] | [place], [place] | | | KAILYN MAZA OF JOHN | [address] | [address] | | | TESTS | | | [...] | + + + + + | [facility] | [address] | [place] [address] | | | SERVICES, CORE | CRYSTAL [...] (H) | 60 - 99 mg/dL | [facility] | | | GLUCOSE, | | [...] [facility] | [address] | [place], [place] | | | KAILYN MAZA OF CARE | [address] | [address] | | | TESTS | | | [...] [facility] | [address] | [place], [place] | | | KAILYN MAZA OF CARE | [address] | [address] | | | TESTS | | | [...] [facility] | [address] | [place], [place] | | | KAILYN MAZA OF CARE | [address] | [address] | | | TESTS | | | [...] GONZALEZ | [address] | [place], [place] | | | [facility] | [address] | [address] | | | TESTS | | | [...] | + + + + + | [facility] | [address] [facility] | [place] [address] | | | SERVICES, CORE | CRYSTAL [...] | + + + + + | [facility] | [address] | [place] [address] | | | SERVICES, CORE | CRYSTAL [...] (H) | 60 - 99 mg/dL | [facility] - | | | GLUCOSE, | | [...] GONZALEZ | [address] | [place], [place] | | | [facility] | [address] | [address] | | | TESTS | | | [...] MARQUAM | [address] | [place], [place] | | | [facility] | [address] | [address] | | | TESTS | | | [...] MARQUAM | [address] | [place], [place] | | | [facility] | [address] | [address] | | | TESTS | | | [...] GONZALEZ | [address] | [place], [place] | | | [facility] | [address] | [address] | | | TESTS | | | [...] MARQUAM | [address] | [place], [place] | | | [facility] | [address] | [address] | | | TESTS | | | [...] MARQUAM | [address] | [place], [place] | | | [facility] | [address] | [address] | | | TESTS | | | [...] - CARLOS | [address] | [place], [place] | | | [facility] | [address] | [address] | | | TESTS | | | [...] | + + + + + | [facility] | [address] | [place] [address] | | | SERVICES, CORE | CRYSTAL [...] [facility] | [address] | [place] [address] | | | SERVICES, CORE | PARK [...] [facility] | [address] | [place] [address] | | | SERVICES, CORE | PARK [...] [facility] | [address] | [place] [address] | | | SERVICES, TOI | PARK [...] | + + + + + | [facility] | [address] | [place] [address] | | | TOI MARIN | CRYSTAL [...] (H) | 60 - 99 mg/dL | [facility] - | | | GLUCOSE, | | [...] MARQUAM | [address] | [place], [place] | | | [facility] | [address] | [address] | | | TESTS | | | [...] GONZALEZ | [address] | [place], [place] | | | [facility] | [facility] | [address] | | | TESTS | | | [...] CARLOS | [address] | [place], [place] | | | [facility] | [address] | [address] | | | TESTS | | | [...] LABORATORY | [address] | [place] [address] | | | TOI MARIN | CRYSTAL [...] [facility] | [address] | [place] [address] | | | SERVICES, CORE | PARK [...] [facility] | [address] | [place] [address] | | | SERVICES, TOI | CRYSTAL [...] MARQUAM | [address] | [place], [place] | | | [facility] | [address] | [address] | | | TESTS | | | [...] + + + | BRIDGETTE GONZALEZ | [address] | [place], [place] | | | KAILYN [facility] | [address] | [address] | | | TESTS | | | [...] MARQUAM | [address] | [place], [place] | | | [facility] | [address] | [address] | | | TESTS | | | [...] MARQUAM | [address] | [place], [place] | | | [facility] | [address] | [address] | | | TESTS | | | [...] GONZALEZ | [address] | [place], [place] | | | [facility] | [address] | [address] | | | TESTS | | | [...] MARQUAM | [address] | [place], [place] | | | [facility] | [address] | [address] | | | TESTS | | | [...] - CARLOS | [address] | [place], [place] | | | [facility] | [address] | [address] | | | TESTS | | | [...] [facility] | [address] | [place] [address] | | | SERVICES, CORE | PARK [...] [facility] | [address] | [place] [address] | | | SERVICES, CORE | PARK [...] | + + + + + | [facility] | [address] | [place] [address] | | | SERVICES, CORE | CRYSTAL [...] (H) | 60 - 99 mg/dL | [facility] - | | | GLUCOSE, | | [...] + + + | BRIDGETTE GONZALEZ | [address] | [place], [place] | | | [facility]YN [facility] | [address] | [address] | | | TESTS | | | | + + + + + X-RAY PORTABLE CHEST 1 VIEW (11/30/2012 11:23 AM PST) + + + + + + | Component | Value | Ref Range | Performed | Pathologist | | | | | At | Signature | + + + + + + | X-RAY | STUDY: [facility] CHEST 1 VIEW | | | | [...] | | + +---------+ + + | [facility]PART[facility] OF | | | | | [...] MARQUAM | [address] | [place], [place] | | | [facility] | [address] | [address] | | | TESTS | | | [...] + | [facility] | [address] | [place] [address] | | | [place] | | | | + + + [...] | + + + + + | [facility] | [address] | [place] [address] | | | TOI MARIN | CRYSTAL [...] | 1.018 | 1.005 - 1.030 | [facility] | | | GRAVITY | | | [...] | + + + + + | [facility] | [address] | [place] [address] | | | SERVICES, CORE | PARK [...] [facility] | [address] | [place] [address] | | | SERVICES, CORE | PARK [...] [facility] | [address] | [place] [address] | | | SERVICES, CORE | CRYSTAL [...] | | | Final CULTURE | | [place] | | | | RESULT:No growth at [...] + | [facility] | [address] | [place] [address] | | | [facility] [place] | | | | + + + [...] | + + + + + | [facility] | [address] [facility] | [place] [address] | | | SERVICES, CORE | PARK [...] | + + + + + | [facility] | [address] | [place] [address] | | | SERVICES, CORE | PARK [...] [facility] | [address] | [place], [place] | | | KAILYN MAZA OF CARE | [facility] | [address] | | | TESTS | | | [...] (H) | 60 - 99 mg/dL | [facility] - | | | GLUCOSE, | | [...] GONZALE[facility] | [address] | [place], [place] | | | KAILYN MAZA OF CARE | [address] | [address] | | | TESTS | | | [...] IJ | | | | | | Dunnegan-Jeremi catheter, | | | | | | [...] CARLOS | [address] | [place], [place] | | | KAILYN MAZA OF JOHN | [address] | [address] | | | TESTS | | | [...] | + + + + + | [facility] | [address] | [place] [address] | | | SERVICES, CORE | CRYSTAL [...] (H) | 60 - 99 mg/dL | [facility] - | | | GLUCOSE, | | [...] GONZALEZ | [address] | [place], [place] | | | KAILYN MAZA OF CARE | [address] | [address] | | | TESTS | | | [...] | + + + + + | [facility] | [address] | [place] [address] | | | SERVICES, CORE | CRYSTAL [...] CARLOS | [address] | [place], [place] | | | KAILYN MAZA OF JOHN | [facility] | [address] | | | TESTS | | | [...] - CARLOS | [address] | [place], [place] | | | SHAUNNA DOVER OF [facility] | [facility] | [address] | | | TESTS | | | [...] | + + + + + | [facility] | [address] | [place] [address] | | | SERVICES, CORE | [address] | | | + + + + + MAGNESIUM, PLASMA (11/30/2012 1:49 AM PST) + +---------+ + + + | Component | Value | Ref Range | Performed | Pathologist | | | | | At | Signature | + +---------+ + + + | MAGNESIUM,P | 3.2 (H) | 1.8 - 2.5 mg/dL | [facility] | | | PITA | | | [...] | + + + + + | [facility] | [address] [facility] | [place] [address] | | | SERVICES, CORE | CRYSTAL [...] | + + + + + | [facility] | [address] | [place] [address] | | | SERVICES, CORE | CRYSTAL [...] 98.5 (H) | 92.0 - 98.0 | [facility] | | | ARTERIAL | | | [...] | + + + + + | [facility] | [address] | [place] [address] | | | SERVICES, CORE | PARK [...] - [facility] | [address] | [place], [place] | | | SHAUNNA POINT OF [facility] | [address] | [address] | | | TESTS | | | [...] | + + + + + | [facility] | [address] | [place] [address] | | | TANIA, TOI | CRYSTAL [...] | + + + + + | [facility] | [address] | [place] [address] | | | SERVICES, CORE | CRYSTAL [...] | + + + + + | [facility] | [address] | [place] [address] | | | SERVICES, CORE | CRYSTAL [...] [facility] | [address] | [place], [place] | | | SHAUNNA POINT OF CARE | [address] | [address] | | | TESTS | | | [...] - CARLOS | [address] | [place], [place] | | | SHAUNNA POINT OF CARE | [address] | [address] | | | TESTS | | | [...] view image for the detailed interpretation from [facility] results. | CARDIOLOGY | + + + + + + + + | Performing | Address | City/State/Zipcode | Phone Number | | Organization | | | | + + + + + | [facility] | [address] | [place], [place] | | | CARDIOLOGY | [address] | [address] | | + + + + + [...] DEPT OF | [address] | [place], [place] | | | CARDIOLOGY | [address] | [address] | | + + + + + [...] | + + + + + | [facility] | [address] | [place] [address] | | | SERVICES, CORE | CRYSTAL [...] | | + +---------+ + + | [facility] DEPARTMENT OF | | | | | [...] (H) | 60 - 99 mg/dL | [facility] - | | | GLUCOSE, | | [...] - [facility] | [address] | [place], [place] | | | SHAUNNA POINT OF CARE | [address] | [address] | | | TESTS | | | [...] [facility] | [address] | [place] [address] | | | SERVICES, CORE | CRYSTAL [...] [facility] | [address] | [place] [address] | | | SERVICES, CORE | PARK [...] | + + + + + | [facility] | [address] | [place] [address] | | | SERVICES, CORE | [address] | | | + + + + + MAGNESIUM, PLASMA (11/29/2012 9:10 PM PST) + +---------+ + + + | Component | Value | Ref Range | Performed | Pathologist | | | | | At | Signature | + +---------+ + + + | MAGNESIUM,P | 3.8 (H) | 1.8 - 2.5 mg/dL | [facility] | | | [facility] | | | [...] | + + + + + | [facility] | [address] | [place] [address] | | | SERVICES, CORE | CRYSTAL [...] + | [facility] | [address] [facility] | [place] [address] | | | SERVICES, CORE | PARK [...] [facility] | [address] | [place] [address] | | | SERVICES, CORE | PARK [...] | + + + + + | [facility] | [address] | [place] [address] | | | SERVICES, CORE | CRYSTAL [...] [facility] | [address] | [place] [address] | | | SERVICES, CORE | PARK [...] | + + + + + | [facility] | [address] | [place] [address] | | | SERVICES, CORE | CRYSTAL [...] [facility] | [address] | [place] [address] | | | TOI MARIN | CRYSTAL [...] [facility] | [address] | [place], [place] | | | KAILYN MAZA OF JOHN | [facility] | [address] | | | TESTS | | | [...] GONZALEZ | [address] | [place], [place] | | | KAILYN MAZA OF CARE | [address] | [address] | | | TESTS | | | [...] [facility] | [address] | [place], [place] | | | HILL, POINT OF CARE | [address] | [address] | | | TESTS | | | [...] [facility] | [address] | [place] [address] | | | SERVICES, CORE | PARK [...] + | [facility] | [address] [facility] | [place] [address] | | | SERVICES, | [address] [...] | + + + + + | [facility] | [address] [facility] | [place] [address] | | | SERVICES, CORE | CRYSTAL [...] | + + + + + | [facility] | [address] | [place] [address] | | | SERVICES, CORE | PARK [...] CARLOS | [address] | [place], [place] | | | KAILYN MAZA OF JOHN | [facility] | [address] | | | TESTS | | | | + + + + + CAPILLARY BLOOD GLUCOSE (NO CHG), POC (11/27/2012 12:44 PM PST) + +-------+ + + + | Component | Value | Ref Range | Performed | Pathologist | | | | | At | Signature | + +-------+ + + + | BLOOD | 89 | 60 - 99 mg/dL | [facility] - | | | GLUCOSE, | | [...] GONZALEZ | [address] | [place], [place] | | | KAILYN MAZA OF CARE | [address] | [address] | | | TESTS | | | [...] | | + +---------+ + + | [facility] DEPARTMENT OF | | | | | [...] [facility] | [address] | [place] [address] | | | SERVICES, | [address] [...] | + + + + + | [facility] | [address] | [place] [address] | | | SERVICES, | [address] [...] | + + + + + | [facility] | [address] | [place] [address] | | | SERVICES, CORE | CRYSTAL [...] + + + + | PRODUCT | [id number] | | [facility] | | | UNIT [...] + + + + | BLOOD | [id number] | | [facility] | | | PRODUCT [...] DEPARTMENT OF | [address] | [place] [address] | | | PATHOLOGY | [address] [...] + + + + | PRODUCT | [id number] | | [facility] | | | UNIT [...] + + + + | BLOOD | [id number] | | [facility] | | | PRODUCT [...] | + + + + + | [facility] | [address] | [place] [address] | | | PATHOLOGY | [address] [...] [facility] | [address] | [place], [place] | | | KAILYN MAZA OF CARE | [address] | [address] | | | TESTS | | | [...] [facility] | [address] | [place] [address] | | | SERVICES, CORE | PARK [...] | + + + + + | [facility] | [address] [facility] | [place] [address] | | | TANIA, CORE | P[address] [...] | + + + + + | [facility] | [address] | [place] [address] | | | SERVICES, CORE | PARK [...] [facility] | [address] | [place], [place] | | | KAILYN MAZA OF CARE | [address] | [address] | | | TESTS | | | [...] | | + +---------+ + + | [facility] DE[facility]MENT OF | | | | | [...] [facility] | [address] | [place] [address] | | | SERVICES, CORE | PARK [...] [facility] | [address] | [place] [address] | | | SERVICES, CORE | PARK [...] [facility] | [address] | [place] [address] | | | SERVICES, CORE | PARK [...] | + + + + + | [facility] | [address] [facility] | [place] [address] | | | SERVICES, [facility] [place] [place] | [address] | | | + [...] | | If you are | | [place] | | | | screening for diabetes: [...] + | [facility] | [address] | [place] [address] | | | [place] | | | | + + + [...]
--- OUTSIDE RECORDS SUMMARY | ~2019-09-13 | XMS | Encounter Summary ---
Demographics + + + | Address | [address] | | | [place] [address] | + + + | Home Phone | | + + + | Preferred Language | Unknown | + + + | Marital Status | Single | + + + | Restorationism Affiliation | CHR | + + + | Race | White | + + + | Ethnic Group | Not or | + + + Author + + + | Author | [facility] | + + + | Organization | [facility] | + + + | Address | Unknown | + + + | Phone | Unavailable | + + + Support + + + + + | Name | Relationship | Address | Phone | + + + + + | Joanne Zhang | HERMILA | [address] | | | | | [place] | | | | | [address] | | + + + + + | [place] | ECON | Unknown | | + + + + + Care Team Providers + +------+ + | Care Computer Equipment Repairer Name | Role | Phone | + +------+ + | No Pcp Per Patient | PCP | Unavailable | + +------+ + Reason for Visit +---------+ + | Reason | Comments | +---------+ + | Syncope | | +---------+ + Encounter Details +--------+ + + + + | Date | Type | Department | Care Team | Description | +--------+ + + + + | 10/08/ | Emergency | [facility] Emergency | | | | 2012 | | Department [address] | | | | | [address] | | | | | | [facility] | | | | | | [place], [place] | | | | | | [address] | | | | | | [phone] | | | +--------+ + + + [...]
--- OUTSIDE RECORDS SUMMARY | ~2019-09-13 | XMS | Clinical Summary ---
Demographics + + + | Address | [address] | | | [place] [address] | + + + | Home Phone | | + + + | Preferred Language | Unknown | + + + | Marital Status | Single | + + + | Sikh Affiliation | CHR | + + + [...] + + + | Joanne Zhang | ECON | [address] | | | | | [place] | | | | | [address] | | + + + + + | Linh Pate | ECON | Unknown | | + + + + + Care Team Providers + +------+ + | Care Ginseng Farmer Name | Role | Phone | + +------+ + | Erick Bernstein DO | PCP | | + +------+ + Source Comments BRIDGETTE is fully live on both [facility] Ambulatory and [facility] InPatient.[facility] Allergies No Known Allergies Medications + + [...] under | | 0 | | | Activ | | mg [...] 400 | | 0 | | | Activ | | Oral tablet | mg) by mouth once | | | | | e | | | daily | | | | | | + + + +---------+------+------+-------+ | acetaminophen 650 | Take 1 Tab by mouth | | 0 | 03/2 | | Activ | | mg Oral tablet | every four hours | | | 20 | | e | | | while awake. | | | 13 | | | + + + +---------+------+------+-------+ | aspirin chewable | Take 1 Tab by mouth | | 0 | 03/2 | | Activ | | 81 mg Oral tablet, | once daily. | | | 06/15 | | e | | chewable | | | | 13 | | | + + + +---------+------+------+-------+ | folic acid 1 mg | Take 1 Tab by mouth | | 0 | 03/2 | | Activ | | Oral tablet | once daily. | | | 06/15 | | e | | | | | | 13 | | | + + + +---------+------+------+-------+ | | Take 1 Tab by mouth | | 0 | 03/2 | | Activ | | multivitamin-mineral | once daily. | | | 06/15 | | e | | s Oral tablet | | | | 13 | | | + + + +---------+------+------+-------+ | omeprazole 40 mg | Take 1 Cap by mouth | | 0 | 03/2 | | Activ [...] every four hours as | | | 920 | | e | | mg Oral tablet | needed for moderate | | | 13 | | | | | pain or severe pain | | | | | | | | (for pain.). | | | | | | + + + +---------+------+------+-------+ | thiamine 100 mg | Take 1 Tab by mouth | | 0 | 03/2 | | Activ | | Oral tablet | once daily. | | | 20 | | e | | | | | | 13 | | | + + + +---------+------+------+-------+ | warfarin 2 mg Oral | Take 1 Tab by mouth | | 0 | 03/2 | | Activ | | tablet | once daily at | | | 9/20 | | e | | | bedtime. [...] + + + + | Name | Administration Dates | Next Due | + + + [...] Disease | Father | | black-outs and MS | + + +------+ + + +------+--------+ [...] Pressure | 121/88 | 01/04/2013 1:13 PM | | | | | PDT | | + + + + + | Pulse | 97 | 01/04/2013 1:13 PM | | | | | PDT | | + + + + + | Temperature | 36.3 C (97.3 F) | 01/04/2013 1:13 PM | | | | | PDT | | + + + + + | Respiratory Rate | 18 | 12/22/2012 6:09 PM | | | | | PDT | | + + + + + | Oxygen Saturation | 100% | 01/04/2013 1:13 PM | | | | | PDT | | + + + + + | Inhaled Oxygen | - | - | | | Concentration | | | | + + + + + | Weight | 130.6 kg (288 lb) | 01/04/2013 1:13 PM | not able to weigh | | | | PDT | | + + + + + | Height | 188 cm (6' 2") | 01/04/2013 1:13 PM | | | | | PDT | | + + + + + | Body Mass Index | 36.98 | 01/04/2013 1:13 PM | | | | | PDT | | + + + + + Plan of Treatment + + + + + | Health Maintenance | Due Date | Last Done | Comments | + + + + + | Pneumococcal | | 10/03/2012 | | | vaccination (2 of 2 | 4 | | | | - PCV13) | | | | + + + + + | Influenza (Flu) | | 10/02/2012 | | | vaccination (#1) | 9 | | | + + + + + Results Not on filefrom Last 3 Months Insurance + +--------+ +--------+ + +--------+ | Payer | Benefi | Subscriber | Effect | Phone | Address | Type | | | t Plan | ID | francesca | | | | | | / | | Dates | | | | | | Group | | | | | | + +--------+ +--------+ + +--------+ | MEDICARE | MEDICA | xxxxxxxxxx | | [phone] | [address] | [address] | | | RE A & | | [phone] | | | [address] | | esent | | [place] | | | | | | | | [phone] | | + +--------+ +--------+ + +--------+ | COMMERCIAL | INDIVI | [phone] | 10/27/19 | | | Indemn | | INDIVIDUAL | DUAL | x | 13-Pre | | | ity | | | COMMER | | sent | | | | | | CIAL | | | | | | + +--------+ +--------+ + +--------+ | SNF RESIDENT | SNF | [phone] | | | | Indemn | | | RESIDE | | 013-Pr | | | ity | | | NT | | esent | | | | + +--------+ +--------+ + +--------+ + +--------+ +--------+ + + | Guarantor Name | Accoun | Relation to | Date | Phone | Billing Address | | | t Type | Patient | of | | | | | | | | | | + +--------+ +--------+ + + | Josef Ramos | Person | Self | [birth year] | [address] | | | al/[place]han | | 1945 | [phone] | [place] [address] | | | rossi | | | 6 (Home) | | + +--------+ +--------+ + + Advance Directives + + + + + | Type | Date Recorded | Patient | Explanation | | | | Bull Rider | | + + + + + | Advance | 11/23/2012 12:00 | | ADVANCE DIRECTIVE | | Directives and | AM | | | | Living Will | | | | + + + + + + + + + + | Code Status | Date | Date | Comments | | | Activated | Inactivated | | + + + + + | DNR/DNI | 12/13/2012 | 12/23/2012 | | | | 1:35 PM | 12:35 AM | | + + + + + + + + +---+ | | | | | + + + +---+ | Full Code | 11/26/2012 | 12/13/2012 | | | | 7:50 PM | 1:35 PM | | + + + +---+ + + + +---+ | | | | | + + + +---+ | Full Code | 09/30/2012 | 10/04/2012 | | | | 1:44 PM | 12:56 AM | | + + + +---+ + + + +---+ | | | | | + + + +---+ | Full Code | 09/29/2012 | 09/30/2012 | | | | 8:43 PM | 1:44 PM | | + + + +---+
--- OUTSIDE RECORDS SUMMARY | ~2019-09-13 | XMS | Encounter Summary ---
Demographics + + + | Address | [address] | | | [place] [address] | + + + | Home Phone | | + + + | Preferred Language | Unknown | + + + | Marital Status | Single | + + + | Worship Affiliation | CHR | + + + [...] [place] | | | | | [address] | | + + + + + | Linh [place] | ECON | Unknown | | + + + + + Care Team Providers + +------+ + | Care Pool Finisher Name | Role | Phone | + +------+ + | Erick Bernstein DO | PCP | | + +------+ + Reason for Visit + + + | Reason | Comments | + + + | Postoperative visit | | + + + PROC - Inpatient Surgery (Routine) +--------+--------+ + + + + | Status | Reason | Specialty | Diagnoses / | Referred By | Referred To | | | | | Procedures | Contact | Contact | +--------+--------+ + + + + | Closed | | Cardiac | Diagnoses | Sean, | Sean, | | | | Surgery | Coronary | MD Kike | MD Kike | | | | | atherosclero | [address] | [address] | | | | | sis of | Miguel | Miguel Hackett | | | | | unspecified | Roxann Carey | Aure[place], | | | | | type of | [place], [place] | [place] | | | | | vessel, | [address] | [phone] | | | | | [place] | | | | | | | graft | | | | | | | Procedures | | | | | | | REQUEST TO | | | | | | | SURGERY | | | | | | | SUPERVISOR INSTANT POTATO PROCESSING | | | | | | | MD CABG, | | | | | | | ARTERIAL, | | | | | | | SINGLE MD | | | | | | | CABG, | | | | | | | ARTERY-VEIN, | | | | | | | SINGLE MD | | | | | | | CABG, | | | | | | | ARTERY-VEIN, | | | | | | | THREE | | | +--------+--------+ + + + + Encounter Details +--------+---------+ + + + | Date | Type | Department | Care Team | Description | +--------+---------+ + + + | 01/04/ | Office | Cardiothoracic | Kike Estrada, | CAD (coronary artery | | 2012 | Visit | Surgery at [facility] | MD | disease) (Primary | | | | [address] | | Dx) | | | | Mailcode: L353 | | | | | | [facility] | | | | | | [place], [place] | | | | | | [address] | | | | | | [phone] | | | +--------+---------+ + + + [...] + documented in this encounter Progress Notes Kathy Castro PA - 01/04/2013 2:56 PM PDTFormatting of this note might be different f rom the original. [facility] Date of Service: 01/04/2013 Referring Providers: Kyle Ambrose MD Patient Care Team: Erick Bernstein DO as PCP - General (Internal Medicine) Nikki Wooten (Emergency Medicine) Kyle Ambrose MD (Cardiology) Pascual Boateng (Nephrology) Jeet Kelley MD (Cardiovascular Disease) Reason for Visit: Postoperative check Subjective: Mr. Josef Ramos is well known to our service. Briefly, he is a 67 year old male who pre sented c severe CAD and LV thrombus and had CABG on 11/29/2012 with complication of delayed ta mponade and VT arrest, open chest in ICU c clot evacuation on 12/04/2012, and chest closure o n 12/08/2012. He was discharged to SNF on 12/22/2012, and returns today for f/u visit. Mr. Ramos has been making progress at rehab. He can walk ~20ft c assist at this point. He has not had any chest pain or dyspnea. He would like his jose out of his sternal inci adele. His niece, Joanne, is here with him today, and would like to see about getting him to rehab closer to [place]. He is taking his warfarin - INR adjusted accordingly. He has no t other medication issues. He does not have a great appetite but they are working on Adioso more palatable foods for him to enjoy. He is in good spirits and making jokes today. The patient's current medications include: Current Medication List Name Sig ACETAMINOPHEN 650 MG TABLET Take 1 Tab by mouth every four hours while awake. AMIODARONE 200 MG TABLET Take 2 tablets ( 400 mg) by mouth once daily ASPIRIN 81 MG CHEWABLE TABLET Take 1 Tab by mouth once daily. FOLIC ACID 1 MG TABLET Take 1 Tab by mouth once daily. MULTIVITAMIN WITH MINERALS TABLET Take 1 Tab by mouth once daily. NITROGLYCERIN 0.[address] 0.4 mg under tongue every five minutes as need ed. Do not crush. Place under tongue and allow to dissolve. Administer every 5 minutes for a maximum of 3 doses in 15 minutes. OMEPRAZOLE 40 MG CAPSULE,DELAYED RELEASE Take 1 Cap by mouth once daily. OXYCODONE 5 MG TABLET Take 1 Tab by mouth every four hours as needed for moderate pain or s evere pain (for pain.). SIMVASTATIN 20 MG TABLET Take 1 Tab by mouth once daily in the evening. THIAMINE 100 MG TABLET Take 1 Tab by mouth once daily. WARFARIN 2 MG TABLET Take 1 Tab by mouth once daily at bedtime. INR goal 2-3 - adjust dose in accordance c INR Objective: Vital Signs: BP 121/88 | Pulse 97 | Temp (Src) 36.3 C (97.3 F) (Oral) | Ht 1.88 m (6' 2 ") | Wt 130.636 kg (288 lb) | SpO2 100% | BMI 36.98 kg/(m^2) General: Seated in wheelchair, comfortable. Chest: Distant breath sounds. CTAB. No wheezes/rhonchi/rales Chest Incision: Skin jose in place. Intact incision c some eschar underlying jose. No separation, erythema, warmth, drainage. Cardiovascular: Distant heart sounds. RRR. GI: NTND, +BS Skin jose removed today. Sternal incision intact. Studies: I personally reviewed the patient's CXR: Sternal wires in place. Small L effusion. l basilar atelectasis improving. No focal cons olidation, pneumothorax. Assessment/Plan: In summary, Mr. Ramos is making steady improvement after a long, complicated hospital cou rse. Mr. Ramos will continue to increase his activity, and we will support decision to mo ve to sNF closer to [place]. I have not made any medication changes today. I have asked Mr. Ramos to schedule a followup appointment with his primary care provider, Dr. Erick Bernstein, DO on d/c from the SNF. I do not have any scheduled followup with Mr. Barrie boston but I would be happy to see him again if he develops any problems related to his surge ry. Electronically signed by: Kathy WINSTON PAJtC Department of Surgery | Division of Cardiothoracic Surgery documented in this encounter Plan of Treatment Not on filedocumented as of this encounter Procedures + +--------+ + + + | Procedure Name | Priori | Date/Time | Associated Diagnosis | Comments | | | ty | | | | + +--------+ + + + | LAB REPORTS | | 01/03/2013 | | Results for this | | | | 12:00 AM | | procedure are in the | | | | PDT | | results section. | + +--------+ + + + documented in this encounter Results LAB REPORTS (01/03/2013 12:00 AM PDT) + + + | Narrative | Performed At | + + + | | | | | | + + + + + | Procedure Note | + + | Diana Farley - 01/09/2013 12:28 PM PDT | + + documented in this encounter Visit Diagnoses + + | Diagnosis | + + | CAD (coronary artery disease) - Primary Coronary atherosclerosis of unspecified type | | of vessel, [place] or graft | + + documented in this encounter
--- OUTSIDE RECORDS SUMMARY | ~2019-09-13 | XMS | Encounter Summary ---
Demographics + + + | Address | [address] | | | [place] [address] | + + + | Home Phone [...] [place] | | | | | [address] | | + + + + + | Linh Pate | ECON | Unknown | | + + + + + Care Team Providers + +------+ + | Care Office Rep Name | Role | Phone | + +------+ + | rEick Bernstein DO | PCP | | + +------+ + Encounter Details +--------+ + + + + | Date | Type | Department | Care Team | Description | +--------+ + + + + | 11/30/ | Results | LAB REFERRED TESTS | Other, Faculty | | | 2012 | Only | [address] [facility] | [phone] | | | | | [address] | | | | | | [place], [place] | | | | | | [address] | | | +--------+ + + + [...] + | EJECTION FRACTION | Routin | 11/30/2012 | | Results for this | | | e | 9:35 AM | | procedure are in the | | | | PST | | results section. | + +--------+ + + + documented in this encounter Results EJECTION FRACTION (11/30/2012 9:35 AM PST) + + + + + + | Component | Value | Ref Range | Performed | Pathologist | | | | | At | Signature | + + + + + + | EJECTION | 30 - 35%Comment: EF | | [facility] | | [...] | | CARDIOLOGY | [address] | [phone] | | + + + + + documented in this encounter Visit Diagnoses Not on filedocumented in this encounter"
--- OUTSIDE RECORDS SUMMARY | ~2019-09-13 | XMS | Encounter Summary ---
Demographics + + + | Address | [address] | | | [place] [address] | + + + | Home Phone | | + + + | Preferred Language | Unknown | + + + | Marital Status | Single | + + + | Latter-Day Affiliation | Unknown | + + + | Race | Unknown | + + + | Ethnic Group | Unknown | + + + Author + + + | Author | [facility] | | | and [place] | + + + | Organization | [facility] | | [...] Team Providers + +------+ + | Care Automatic Head Sawyer Name | Role | Phone | + +------+ + | Erick Bernstein DO | PCP | | + +------+ + Encounter Details +--------+ + + + + | Date | Type | Department | Care Team | Description | +--------+ + + + + | 01/03/ | Orders Only | [facility] | Warren Crawley, | | | 2019 | | [place] | [address] | | | | | [address] | [place] | | | | | [place], [place] | [address] | | | | | [address] | | | | | | [phone] | | | +--------+ + + + [...] [place] | | | | | | [address] | | | | | | | | +--------+---------+ + + + documented as of this encounter Visit Diagnoses Not on filedocumented in this encounter"
--- OUTSIDE RECORDS SUMMARY | ~2019-09-13 | XMS | Encounter Summary ---
Demographics + + + | Address | [address] | | | [place] [address] | + + + | Home Phone | | + + + | Preferred Language | Unknown | + + + | Marital Status | Single | + + + | Nondenominational Affiliation | Unknown | + + + | Race | Unknown | + + + | Ethnic Group | Unknown | + + + Author + + + | Author | [facility] | | | and [place] | + + + | Organization | [facility] | | | [...] Team Providers + +------+ + | Care Staking Technician Name | Role | Phone | + +------+ + | Erick Bernstein DO | PCP | | + +------+ + Encounter Details +--------+ + + + + | Date | Type | Department | Care Team | Description | +--------+ + + + + | 10/10/ | Orders Only | [facility] | José Luis Stover | | | 2016 | | CONVERSION | MD [address] | | | | | [address]FAC[address] | [place] | | | | | [phone] | [place] [address] | | | | | | [phone] | | | | | | | [...] [place] | | | | | | [address] | | | | | | | | +--------+---------+ + + + documented as of this encounter Procedures + +--------+ + + + | Procedure Name | Priori | Date/Time | Associated Diagnosis | Comments | | | ty | | | | + +--------+ + + + | ECHO COMPLETE | Routin | 10/10/2015 | | Results for this | | | e | 7:18 AM | | procedure are in the | | | | PST | | results section. | + +--------+ + + + documented in this encounter Results ECHO Complete (10/10/2015 7:18 AM PST) + + | Specimen | + + | | + + + + + | Impressions | Performed At | + + + | 1. See Dictation 2. Suggestive/consistant with CAD. Large apical | | | akinesis, large apical thrombus. LVEF 35-40%. 3. No /AI. Trace | | | MR, trace TR, trace PI. 4. PAP 21mmHg+CVP. | | + + + + + + | Narrative | Performed At | + + + | Patient Name: Josef Ramos Date of : 1945 | | | Performing Physician: José Luis Stover DO | | | | | | INDICATIONS CAD CONCLUSIONS 1. See | | | Dictation 2. Suggestive/consistant with CAD. Large apical akinesis, | | | large apical thrombus. LVEF 35-40%. 3. No /AI. Trace MR, trace | | | TR, trace PI. 4. PAP 21mmHg+CVP. FINDINGS -------- ECG rhythm: | | | Sinus rhythm with extra systolic beats. Study: A 2-dimensional | | | transthoracic echocardiogram with m-mode, spectral and color flow | | | Doppler was perfomed. Study: This was a technically adequate study. | | | Study: Suboptimal image quality - poor subcostal views. Left | | | Ventricle: Overall left ventricular systolic function is | | | mild-moderately impaired with, an EF between 40 - 45 %. Left | | | Ventricle: The left ventricle cavity size is normal. Left Ventricle: | | | Left ventricular wall thickness is normal. Left Ventricle: The | | | diastolic filling pattern indicates impaired relaxation consistent | | | with mild dysfunction (Grade I). Left Ventricle: Apical akinesis with | | | thrombus. Right Ventricle: The right ventricle is normal in size. | | | Left Atrium: The left atrium is mildly dilated. Right Atrium: The | | | right atrium is mildly enlarged. Aortic Valve: The aortic valve is | | | trileaflet and appears structurally normal. Aortic Valve: There is | | | mild aortic valve sclerosis without stenosis. Aortic Valve: There is | | | no evidence of aortic regurgitation. Mitral Valve: The mitral valve | | | is normal. Mitral Valve: There is trace mitral regurgitation. Mitral | | | Valve: Mild mitral annular calcification present. Tricuspid Valve: | | | The tricuspid valve appears structurally normal. Tricuspid Valve: | | | Trace tricuspid regurgitation present. Tricuspid Valve: There is no | | | evidence of pulmonary hypertension. Tricuspid Valve: The right | | | ventricular systolic pressure (pulmonary artery systolic pressure), as | | | measured by Doppler, is 26.01mmHg. Pulmonic Valve: The pulmonic | | | valve is normal. Pulmonic Valve: Trace pulmonic regurgitation. | | | Pericardium: There is no pericardial effusion. IVC/Hepatic Veins: The | | | IVC was not well visualized. 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 Thrombus: The | | | thrombus is fixed in position. Thrombus: The thrombus is located in | | | the apex of the left ventricle. Thrombus: Patient has hx of apical | | | thrombus and is antigoagulated and on "comfort care". Septum: No ASD | | | observed. Septum: No VSD observed. MEASUREMENTS | | | Ao asc: 4.34 cm Ao Diam: 4.22 cm LA Diam: 4.56 cm LA | | | Major: 4.33 cm EDV(Teich): 140.95 ml IVSd: 0.97 cm LVIDd: | | | 5.39 cm LVPWd: 0.79 cm LVOT Area: 4.18 cm2 LVOT Diam: | | | 2.30 cm %FS: 19.14 % EF(Teich): 39.06 % ESV(Teich): 85.89 | | | ml LVIDs: 4.36 cm SV(Teich): 55.06 ml RA Major: 5.18 cm | | | RVIDd: 2.89 cm LVEF MOD A2C: 45.23 % SV MOD A2C: 68.36 ml | | | LVEF MOD A4C: 38.13 % SV MOD A4C: 38.82 ml EF Biplane: | | | 42.17 % LVEDV MOD BP: 139.68 ml LVESV MOD BP: 80.76 ml LVEDV | | | MOD A2C: 151.14 ml LVLd A2C: 8.27 cm LVEDV MOD A4C: 101.79 | | | ml LVLd A4C: 8.42 cm LVESV MOD A2C: 82.77 ml LVLs A2C: | | | 7.42 cm LVESV MOD A4C: 62.97 ml LVLs A4C: 7.95 cm LAESV(A-L): | | | 40.22 ml LAESV Index (A-L): 17.19 ml/m2 LAAs A2C: 13.60 | | | cm2 LAESV A-L A2C: 38.17 ml LALs A2C: 4.11 cm LAAs A4C: | | | 14.33 cm2 LAESV A-L A4C: 38.81 ml LALs A4C: 4.49 cm AV maxPG: | | | 1.93 mmHg AV meanP.13 mmHg AV Vmax: 0.69 m/s AV | | | Vmean: 0.50 m/s AV VTI: 12.59 cm BLAKE Vmax: 3.94 cm2 BLAKE | | | (VTI): 4.43 cm2 AVAI (Vmax): 0.00 cm2/m2 AVAI (VTI): 0.00 | | | cm2/m2 LVOT maxP.72 mmHg LVOT meanP.90 mmHg LVSI | | | Dopp: 23.88 ml/m2 LVSV Dopp: 55.89 ml LVOT Vmax: 0.65 m/s | | | LVOT Vmean: 0.44 m/s LVOT VTI: 13.37 cm MV A Nik: 0.50 m/s | | | MV DecT: 281.21 ms MV E Nik: 0.36 m/s MV E/A Ratio: 0.72 | | | MV PHT: 81.55 ms MVA By PHT: 2.69 cm2 Septal e': 0.04 m/s | | | Septal E/e': 8.71 RAP: 5 mmHg RVSP: 26.00 mmHg TR maxPG: | | | 21.00 mmHg TR Vmax: 2.29 m/s Care Consultant: ALFREDO Authenticated | | | by: José Luis Stover DO Report Date/Time: 10-13-2015 19:41:26 | | + + + + + | Procedure Note | + + | Zaki Luis Conversion - 05/17/2019 9:29 PM PDT Patient Name: Kianna Ramos of | | : 1945 Performing Physician: José Luis Stover | | DO INDICATIONS C | | AD CONCLUSIONS 1. See Dictation2. Suggestive/consistant with CAD. Large | | apical akinesis, large apical thrombus. LVEF 35-40%. 3. No /AI. Trace MR, trace TR, | | trace PI. 4. PAP 21mmHg+CVP. FINDINGS--------ECG rhythm: Sinus rhythm with extra | | systolic beats.Study: A 2-dimensional transthoracic echocardiogram with m-mode, spectral | | and color flow Doppler was perfomed.Study: This was a technically adequate study.Study: | | Suboptimal image quality - poor subcostal views.Left Ventricle: Overall left | | ventricular systolic function is mild-moderately impaired with, an EF between 40 - 45 | | %.Left Ventricle: The left ventricle cavity size is normal.Left Ventricle: Left | | ventricular wall thickness is normal.Left Ventricle: The diastolic filling pattern | | indicates impaired relaxation consistent with mild dysfunction (Grade I).Left Ventricle: | | Apical akinesis with thrombus.Right Ventricle: The right ventricle is normal in | | size.Left Atrium: The left atrium is mildly dilated.Right Atrium: The right atrium is | | mildly enlarged.Aortic Valve: The aortic valve is trileaflet and appears structurally | | normal.Aortic Valve: There is mild aortic valve sclerosis without stenosis.Aortic Valve: | | There is no evidence of aortic regurgitation.Mitral Valve: The mitral valve is | | normal.Mitral Valve: There is trace mitral regurgitation.Mitral Valve: Mild mitral | | annular calcification present.Tricuspid Valve: The tricuspid valve appears structurally | | normal.Tricuspid Valve: Trace tricuspid regurgitation present.Tricuspid Valve: There is | | no evidence of pulmonary hypertension.Tricuspid Valve: The right ventricular systolic | | pressure (pulmonary artery systolic pressure), as measured by Doppler, is | | 26.01mmHg.Pulmonic Valve: The pulmonic valve is normal.Pulmonic Valve: Trace pulmonic | | regurgitation.Pericardium: There is no pericardial effusion.IVC/Hepatic Veins: The IVC | | was not well visualized.Aorta: The aortic root and ascending aorta are dilated measuring | | up to 43 and 42 mm.Thrombus: The thrombus is fixed in position.Thrombus: The thrombus | | is located in the apex of the left ventricle.Thrombus: Patient has hx of apical thrombus | | and is antigoagulated and on "comfort care".Septum: No ASD observed.Septum: No VSD | | observed. MEASUREMENTS Ao asc: 4.34 cmAo Diam: 4.22 cmLA Diam: 4.56 | | cmLA Major: 4.33 cmEDV(Teich): 140.95 mlIVSd: 0.97 cmLVIDd: 5.39 cmLVPWd: 0.79 | | cmLVOT Area: 4.18 mg3HEHL Diam: 2.30 cm%FS: 19.14 %EF(Teich): 39.06 | | %ESV(Teich): 85.89 mlLVIDs: 4.36 cmSV(Teich): 55.06 mlRA Major: 5.18 cmRVIDd: | | 2.89 cmLVEF MOD A2C: 45.23 %SV MOD A2C: 68.36 mlLVEF MOD A4C: 38.13 %SV MOD A4C: | | 38.82 mlEF Biplane: 42.17 %LVEDV MOD BP: 139.68 mlLVESV MOD BP: 80.76 mlLVEDV MOD | | A2C: 151.14 mlLVLd A2C: 8.27 cmLVEDV MOD A4C: 101.79 mlLVLd A4C: 8.42 cmLVESV | | MOD A2C: 82.77 mlLVLs A2C: 7.42 cmLVESV MOD A4C: 62.97 mlLVLs A4C: 7.95 | | cmLAESV(A-L): 40.22 mlLAESV Index (A-L): 17.19 ml/m2LAAs A2C: 13.60 ms0SZAHD A-L | | A2C: 38.17 mlLALs A2C: 4.11 cmLAAs A4C: 14.33 fh2UCDUQ A-L A4C: 38.81 mlLALs | | A4C: 4.49 cmAV maxP.93 mmHgAV meanP.13 mmHgAV Vmax: 0.69 m/Cesar Vmean: | | 0.50 m/Cesar VTI: 12.59 cmAVA Vmax: 3.94 cm2AVA (VTI): 4.43 fd9NWQA (Vmax): 0.00 | | cm2/m2AVAI (VTI): 0.00 cm2/m2LVOT maxP.72 mmHgLVOT meanP.90 mmHgLVSI Dopp: | | 23.88 ml/m2LVSV Dopp: 55.89 mlLVOT Vmax: 0.65 m/sLVOT Vmean: 0.44 m/sLVOT VTI: | | 13.37 cmMV A Nik: 0.50 m/sMV DecT: 281.21 msMV E Nik: 0.36 m/sMV E/A Ratio: | | 0.72MV PHT: 81.55 msMVA By PHT: 2.69 pf9Maouiz e': 0.04 m/sSeptal E/e': 8.71RAP: | | 5 mmHgRVSP: 26.00 mmHgTR maxP.00 mmHgTR Vmax: 2.29 m/s Care Consultant: | | DHAuthenticated by: José Luis Borrero Date/Time: 10-13-2015 19:41:26 IMPRESSION: 1. | | See Dictation2. Suggestive/consistant with CAD. Large apical akinesis, large apical | | thrombus. LVEF 35-40%. 3. No /AI. Trace MR, trace TR, trace PI. 4. PAP 21mmHg+CVP. | |Septum: No ASD observed. | |Septum: No VSD observed. | | | |MEASUREMENTS | | | |Ao asc: 4.34 cm | |Ao Diam: 4.22 cm | |LA Diam: 4.56 cm | |LA Major: 4.33 cm | |EDV(Teich): 140.95 ml | |IVSd: 0.97 cm | |LVIDd: 5.39 cm | |LVPWd: 0.79 cm | |LVOT Area: 4.18 cm2 | |LVOT Diam: 2.30 cm | |%FS: 19.14 % | |EF(Teich): 39.06 % | |ESV(Teich): 85.89 ml | |LVIDs: 4.36 cm | |SV(Teich): 55.06 ml | |RA Major: 5.18 cm | |RVIDd: 2.89 cm | |LVEF MOD A2C: 45.23 % | |SV MOD A2C: 68.36 ml | |LVEF MOD A4C: 38.13 % | |SV MOD A4C: 38.82 ml | |EF Biplane: 42.17 % | |LVEDV MOD BP: 139.68 ml | |LVESV MOD BP: 80.76 ml | |LVEDV MOD A2C: 151.14 ml | |LVLd A2C: 8.27 cm | |LVEDV MOD A4C: 101.79 ml | |LVLd A4C: 8.42 cm | |LVESV MOD A2C: 82.77 ml | |LVLs A2C: 7.42 cm | |LVESV MOD A4C: 62.97 ml | |LVLs A4C: 7.95 cm | |LAESV(A-L): 40.22 ml | |LAESV Index (A-L): 17.19 ml/m2 | |LAAs A2C: 13.60 cm2 | |LAESV A-L A2C: 38.17 ml | |LALs A2C: 4.11 cm | |LAAs A4C: 14.33 cm2 | |LAESV A-L A4C: 38.81 ml | |LALs A4C: 4.49 cm | |AV maxP.93 mmHg | |AV meanP.13 mmHg | |AV Vmax: 0.69 m/s | |AV Vmean: 0.50 m/s | |AV VTI: 12.59 cm | |BLAKE Vmax: 3.94 cm2 | |BLAKE (VTI): 4.43 cm2 | |AVAI (Vmax): 0.00 cm2/m2 | |AVAI (VTI): 0.00 cm2/m2 | |LVOT maxP.72 mmHg | |LVOT meanP.90 mmHg | |LVSI Dopp: 23.88 ml/m2 | |LVSV Dopp: 55.89 ml | |LVOT Vmax: 0.65 m/s | |LVOT Vmean: 0.44 m/s | |LVOT VTI: 13.37 cm | |MV A Nik: 0.50 m/s | |MV DecT: 281.21 ms | |MV E Nik: 0.36 m/s | |MV E/A Ratio: 0.72 | |MV PHT: 81.55 ms | |MVA By PHT: 2.69 cm2 | |Septal e': 0.04 m/s | |Septal E/e': 8.71 | |RAP: 5 mmHg | |RVSP: 26.00 mmHg | |TR maxP.00 mmHg | |TR Vmax: 2.29 m/s | | | |Care Consultant: | |Authenticated by: José Luis Stover DO | |Report Date/Time: 10-13-2015 19:41:26 | | | |IMPRESSION: | |1. See Dictation | |2. Suggestive/consistant with CAD. Large apical akinesis, large apical thrombus. LVEF 35- 40%. 3. No /AI. Trace MR, trace TR, trace PI. 4. PAP 21mmHg+CVP. | + + documented in this encounter Visit Diagnoses Not on filedocumented in this encounter
--- OUTSIDE RECORDS SUMMARY | ~2019-09-13 | XMS | Encounter Summary ---
Demographics + + + | Address | [address] | | | [place] [address] | + + + | Home Phone | | + + + | Preferred Language | Unknown | + + + | Marital Status | Single | + + + | Holiness Affiliation | Unknown | + + + | Race | Unknown | + + + | Ethnic Group | Unknown | + + + Author + + + | Author | [facility] | | | and [place] | + + + | Organization | [facility] | | | [...] Team Providers + +------+ + | Care Manager Labor Relations Name | Role | Phone | + +------+ + PCP | Unavailable | + +------+ + Encounter Details +--------+ + + + + | Date | Type | Department | Care Team | Description | +--------+ + + + + | 11/15/ | Orders Only | [facility] | Warren Crawley, | | | 2017 | | CARDIOLOGY [facility] | [address] | | | | | [address] | [place] | | | | | [place] | [address] | | | | | [address] | | | | | | [phone] | | | +--------+ + + + [...] [place] | | | | | | [address] | | | | | | | [...]
--- OUTSIDE RECORDS SUMMARY | ~2019-09-13 | XMS | Encounter Summary ---
Demographics + + + | Address | [address] | | | [place] [address] | + + + | Home Phone | | + + + | Preferred Language | Unknown | + + + | Marital Status | Single | + + + | Synagogue Affiliation | CHR | + + + | Race | White | + + + | Ethnic Group | Not or | + + + Author + + + | Author | [facility] | + + + | Organization | [facility] | + + + | Address | Unknown | + + + | Phone | Unavailable | + + + Support + + + + + | Name | Relationship | Address | Phone | + + + + + | Joanne Zhang | [place] | [address] | | | | | [place] | | | | | [address] | | + + + + + | Linh [place] | ECON | Unknown | | + + + + + Care Team Providers + +------+ + | Care Hand Potter Name | Role | Phone | + [...] | unspecified | Roxann Carey | [address] [place], | | | | | type of | [place], [place] | [place] | | | | | vessel, | [phone] | [address] | | | | | shinnecock or | | | | | | | graft | | | | | | | Procedures | | | | | | | REQUEST TO | | | | | | | SURGERY | | | | | | | AUTO APPRAISER | | | | | | | NE CABG, | | | | | | | ARTERIAL, | | | | | | | SINGLE NE | | | | | | | CABG, | | | | | | | ARTERY-VEIN, | | | | | | | SINGLE NE | | | | | | | [...] Pavilion | | | | | | [place], [place] | | | | | | [address] | | | | | | [phone] | | | +--------+---------+ + + + [...] Reason for Visit: Postoperative check Subjective: Mr. Jsoef Ramos is well known to our service. [...] about getting him to rehab closer to [place]. He is taking his warfarin - INR adjusted accordingly. He has no t other medication issues. He does not have a great appetite but they are working on [place] more palatable foods for him to enjoy. [...] to mo ve to sNF closer to [place]. I have not made any medication changes [...] of unspecified type | | of vessel, shinnecock or graft | + + documented in this encounter
--- OUTSIDE RECORDS SUMMARY | ~2019-09-13 | XMS | Encounter Summary ---
Demographics + + + | Address | [address] | | | [place] [address] | + + + | Home Phone [...] + + + | Author | [facility] | + + + | Organization | [facility] | + + + | Address | Unknown | + + + | Phone | Unavailable | + + + Support + + + + + | Name | Relationship | Address | Phone | + + + + + | Joanne Zhang | [place] | [address] | | | | | [place] | | | | | [address] | | + + + + + | Linh Pate | ECON | Unknown | | + + + + + Care Team Providers + +------+ + | Care Order Checker Packer Processer Name | Role | Phone | + +------+ + | Erick Bernstein DO | PCP | | + +------+ + Encounter Details +--------+ + + + + | Date | Type | Department | Care Team | Description | +--------+ + + + + | 12/11/ | Results | LAB REFERRED TESTS | Other, Faculty | | | 2012 | Only | [address] [facility] | [phone] | | | | | [address] | | | | | | [place], [place] | | | | | | [address] | | | +--------+ + + + [...] | | CARDIOLOGY | [address] | [address] | | + + + + + documented in this encounter Visit Diagnoses Not on filedocumented in this encounter"
--- OUTSIDE RECORDS SUMMARY | ~2019-09-13 | XMS | Encounter Summary ---
Demographics + + + | Address | [address] | | | [place] [address] | + + + | Home Phone | | + + + | Preferred Language | Unknown | + + + | Marital Status | Single | + + + | Mandaen Affiliation | CHR | + + + | Race | White | + + + | Ethnic Group | Not or | + + + Author + + + | Author | [facility] | + + + | Organization | [facility] | + + + | Address | Unknown | + + + | Phone | Unavailable | + + + Support + + + + + | Name | Relationship | Address | Phone | + + + + + | Joanne Zhang | [place] | [address] | | | | | [place] | | | | | [address] | | + + + + + | Linh Pate | ECON | Unknown | | + + + + + Care Team Providers + +------+ + | Care Billet Driller Name | Role | Phone | + +------+ + | Erick Bernstein DO | PCP | | + +------+ + Encounter Details +--------+ + + + + | Date | Type | Department | Care Team | Description | +--------+ + + + + | 11/27/ | Results | LAB REFERRED TESTS | Other, Faculty | | | 2012 | Only | [address] [facility] | [phone] | | | | | [address] | | | | | | [place], [place] | | | | | | [address] | | | +--------+ + + + [...] | | CARDIOLOGY | [address] | [address] | | + + + + + documented in this encounter Visit Diagnoses Not on filedocumented in this encounter"
--- OUTSIDE RECORDS SUMMARY | ~2019-09-13 | XMS | Encounter Summary ---
Demographics + + + | Address | [address] | | | [place] [address] | + + + | Home Phone | | + + + | Preferred Language | Unknown | + + + | Marital Status | Single | + + + | Mandaen Affiliation | Unknown | + + + [...] Team Providers + +------+ + | Care Comparator Operator Name | Role | Phone | [...] [address] | | | | | [phone] | [place] [address] | | | | | | [phone] | | | | | | | [...] [place] | | | | | | [address] | | | | | | | [...] | 21.00 mmHg TR Vmax: 2.29 m/s Manager Export: ALFREDO Authenticated | | | by: José [...] cmLVPWd: 0.79 | | cmLVOT Area: 4.18 [id number] Diam: 2.30 cm%FS: 19.14 %EF(Teich): 39.06 | [...] mlLAESV Index (A-L): 17.19 ml/m2LAAs A2C: 13.60 my2FMHFI A-L | | A2C: 38.17 mlLALs A2C: 4.11 cmLAAs A4C: 14.33 uj4DUTAN A-L A4C: 38.81 mlLALs | | A4C: 4.49 cmAV maxP.93 mmHgAV meanP.13 mmHgAV Vmax: 0.69 m/Cesar Vmean: | | 0.50 m/Cesar VTI: 12.59 cmAVA Vmax: 3.94 cm2AVA (VTI): 4.43 yg8NJVE (Vmax): 0.00 | | cm2/m2AVAI (VTI): 0.00 cm2/m2LVOT maxP.72 mmHgLVOT meanP.90 mmHgLVSI Dopp: | | 23.88 ml/m2LVSV Dopp: 55.89 mlLVOT Vmax: 0.65 m/sLVOT Vmean: 0.44 m/sLVOT VTI: | | 13.37 cmMV A Nik: 0.50 m/sMV DecT: 281.21 msMV E Nik: 0.36 m/sMV E/A Ratio: | | 0.72MV PHT: 81.55 msMVA By PHT: 2.69 zw4Vfodvx e': 0.04 m/sSeptal E/e': 8.71RAP: | | 5 mmHgRVSP: 26.00 mmHgTR maxP.00 mmHgTR Vmax: 2.29 m/s Manager Export: | | DHAuthenticated by: José Luis Borrero [...] |TR Vmax: 2.29 m/s | | | |Manager Export: | |Authenticated by: José Luis Stover DO [...]
--- OUTSIDE RECORDS SUMMARY | ~2019-09-13 | XMS | Encounter Summary ---
Demographics + + + | Address | [address] | | | [place] [address] | + + + | Home Phone [...] Author + + + | Author | [facility] | + + + | Organization | [facility] | + + + | Address | Unknown | + + + | Phone | Unavailable | + + + Support + + + + + | Name | Relationship | Address | Phone | + + + + + | Joanne Zhang | [place] | [address] | | | | | [place] | | | | | [address] | | + + + + + | Linh Pate | ECON | Unknown | | + + + + + Care Team Providers + +------+ + | Care Surface Mount Technology Operator Name | Role | Phone | + +------+ + | Erick Bernstein DO | PCP | | + +------+ + Encounter Details +--------+ + + + + | Date | Type | Department | Care Team | Description | +--------+ + + + + | 04/11/ | Reporting Developer | Cardiothoracic | Kathy Torres, | 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) | | | | [address] | [address] | | | | | Mailcode: [id number] | [place], [place] | | | | | [facility] | [address] | | | | | [place], [place] | [phone] | | | | | [address] | | | | | | [phone] | | | +--------+ + + + [...] of unspecified type of | | vessel, takotna or graft | + + documented in this encounter"
--- OUTSIDE RECORDS SUMMARY | ~2019-09-13 | XMS | Encounter Summary ---
Demographics + + + | Address | [address] | | | [place] [address] | + + + | Home Phone | | + + + | Preferred Language | Unknown | + + + | Marital Status | Single | + + + | Jainism Affiliation | CHR | + + + | Race | White | + + + | Ethnic Group | Not or | + + + Author + + + | Author | [facility] | + + + | Organization | [facility] | + + + | Address | Unknown | + + + | Phone | Unavailable | + + + Support + + + + + | Name | Relationship | Address | Phone | + + + + + | Joanne Zhang | [place] | [address] | | | | | [place] | | | | | [address] | | + + + + + | Linh Pate | ECON | Unknown | | + + + + + Care Team Providers + +------+ + | Care Wine Cellar Worker Name | Role | Phone | [...] | | | Ave Mailcode: [address] | [place], [place] | Cardiac) | | | | [facility] | [address] | | | | | and [place], | [phone] | | | | | [facility] | | | | | | [place], [place] | | | | | | [address] | | | | | | [phone] | | | +--------+ + + + [...]
--- OUTSIDE RECORDS SUMMARY | ~2019-09-13 | XMS | Encounter Summary ---
Demographics + + + | Address | [address] | | | [place] [address] | + + + | Home Phone | | + + + | Preferred Language | Unknown | + + + | Marital Status | Single | + + + | Denominational Affiliation | CHR | + + + | Race | White | + + + | Ethnic Group | Not or | + + + Author + + + | Author | [facility] | + + + | Organization | [facility] | + + + | Address | Unknown | + + + | Phone | Unavailable | + + + Support + + + + + | Name | Relationship | Address | Phone | + + + + + | Joanne Zhang | [place]A | [address] | | | | | [place] | | | | | [address] | | + + + + + | Linh Pate | ECON | Unknown | | + + + + + Care Team Providers + +------+ + | Care Psychopaedic Nurse Name | Role | Phone | + [...] | unspecified | [address] | [address] [place], | | | | | type of | [place], [place] | [place] | | | | | vessel, | [address] | [address] | | | | | te-moak or | | | | | | | graft | | | | | | | Procedures | | | | | | | REQUEST TO | | | | | | | SURGERY | | | | | | | RETAIL ASSISTANT STORE MANAGER | | | | | | | ID CABG, | | | | | | | ARTERIAL, | | | | | | | SINGLE ID | | | | | | | CABG, | | | | | | | ARTERY-VEIN, | | | | | | | SINGLE ID | | | | | | | CABG, | | | | | | | ARTERY-VEIN, | | | | | | | THREE | | | +--------+--------+ + + + + Encounter Details +--------+ + + + + | Date | Type | Department | Care Team | Description | +--------+ + + + + | 10/02/ | Economic Development Coordinator | Cardiothoracic | Estrada, Kike, | Coronary | | 2012 | | Surgery at [facility] | MD | atherosclerosis of | | | | [address] | | unspecified type of | | | | Mailcode: L353 | | vessel, te-moak or | | | | [facility] | | graft (Primary Dx) | | | | [place], [place] | | | | | | [address] | | | | | | [phone] | | | +--------+ + + + [...] Coronary atherosclerosis of unspecified type of vessel, te-moak or graft - Primary | + + documented in this encounter"
--- OUTSIDE RECORDS SUMMARY | ~2019-09-13 | XMS | Encounter Summary ---
Demographics + + + | Address | [address] | | | [place] [address] | + + + | Home Phone | | + + + | Preferred Language | Unknown | + + + | Marital Status | Single | + + + | Cheondoism Affiliation | Unknown | + + + | Race | Unknown | + + + | Ethnic Group | Unknown | + + + Author + + + | Author | [facility] | | | and [place] | + + + | Organization | [facility] | | | [...] Team Providers + +------+ + | Care Live Source Operator Name | Role | Phone | + +------+ + | Erick Bernstein DO | PCP | | + +------+ + Encounter Details +--------+ + + + + | Date | Type | Department | Care Team | Description | +--------+ + + + + | 10/27/ | Orders Only | [facility] | Conversion | | | 2017 | | CONVERSION [address] | Transaction, | | | | | [address] | Provider Unknown | | | | | [place] | [phone] | | | | | [address] | | | | | | [phone] | | | +--------+ + + + [...] | | | | | [place] | | | | | | [address] | | | | | | | | +--------+---------+ + + + documented as of this encounter Visit Diagnoses Not on filedocumented in this encounter"
--- OUTSIDE RECORDS SUMMARY | ~2019-09-13 | XMS | Encounter Summary ---
Demographics + + + | Address | [address] | | | [place] [address] | + + + | Home Phone | | + + + | Preferred Language | Unknown | + + + | Marital Status | Single | + + + | Sabianist Affiliation | CHR | + + + | Race | White | + + + | Ethnic Group | Not or | + + + Author + + + | Author | [facility] | + + + | Organization | [facility] | + + + | Address | Unknown | + + + | Phone | Unavailable | + + + Support + + + + + | Name | Relationship | Address | Phone | + + + + + | Joanne Zhang | [place] | [address] | | | | | [place] | | | | | [address] | | + + + + + | Linh Pate | ECON | Unknown | | + + + + + Care Team Providers + +------+ + | Care Business Editor Name | Role | Phone | + [...] | | | | | artery | [place], [place] | [address] | | | | | disease) [place] | [address] | [facility] | | | | | (left | Phone: | Building | | | | | ventricular) | [phone] | [place], [place] | | | | | mural | Fax: | [address] | | | | | thrombus | [phone] | Phone: | | | | | Procedures | | [phone] | | | | | TRANSTHORACI | [...] | | | | | | at [facility] [address] | | | | | [address] Mailcode: | | | | | | CH9A [facility] | | | | | | Health and Healing, | | | | | | Building [address] | | | | | | [place], [place] | | | | | | [address] | | | | | | [phone] | | | +--------+ + + + [...]
--- OUTSIDE RECORDS SUMMARY | ~2019-09-13 | XMS | Encounter Summary ---
Demographics + + + | Address | [address] | | | [place] [address] | + + + | Home Phone [...] [place] | | | | | [address] | | + + + + + | Linh Pate | ECON | Unknown | | + + + + + Care Team Providers + +------+ + | Care Heat Treat Inspector Name | Role | Phone | + [...] [address] | | | | | [facility] | Roxann [facility] | | | | | Hospital Admitting | [place] [address] | | | | | Desk Located on the | [phone] | | | | | 9th floor | | | | | | [place], [place] | Raysa Pedraza MD | | | | | [address] | [address] | | | | | | [place] | | | | | | [place] [address] | | | | | | [phone] | | | | | | | [...] | an stop | Pt transferred to [facility] intubated and sedated. Monitoring with | | [...] Zuniga, | Matthew Rubio RN | | Biological Technical Officer | | RN | | | al [...] Som; Lower, | Palomo Marquez RN | Epseranza Roy RN | | Drains | Right; [...]
--- OUTSIDE RECORDS SUMMARY | ~2019-09-13 | XMS | Encounter Summary ---
Demographics + + + | Address | [address] | | | [place] [address] | + + + | Home Phone | | + + + | Preferred Language | Unknown | + + + | Marital Status | Single | + + + | Episcopalian Affiliation | Unknown | + + + | Race | Unknown | + + + | Ethnic Group | Unknown | + + + Author + + + | Author | [facility] | | | and [place] | + + + | Organization | [facility] | | | and [...] Team Providers + +------+ + | Care Lumber Kiln Operator Name | Role | Phone | + +------+ + | Erick Bernstein DO | PCP | | + +------+ + Encounter Details +--------+ + + + + | Date | Type | Department | Care Team | Description | +--------+ + + + + | 09/23/ | Orders Only | [facility] | Warren Crawley, | | | 2018 | | [place] | [address] | | | | | [address] | [place] | | | | | [place], [place] | [address] | | | | | [address] | | | | | | [phone] | | | +--------+ + + + [...] [place] | | | | | | [address] | | | | | | | | +--------+---------+ + + + documented as of this encounter Visit Diagnoses Not on filedocumented in this encounter"
--- OUTSIDE RECORDS SUMMARY | ~2019-09-13 | XMS | Encounter Summary ---
Demographics + + + | Address | [address] | | | [place] [address] | + + + | Home Phone | | + + + | Preferred Language | Unknown | + + + | Marital Status | Single | + + + | Zoroastrian Affiliation | Unknown | + + + | Race | Unknown | + + + | Ethnic Group | Unknown | + + + Author + + + | Author | [facility] | | | and [place] | + + + | Organization | [facility] | | | [...] Team Providers + +------+ + | Care Physical Education Department Chair Name | Role | Phone | + +------+ + | Erick Bernstein DO | PCP | | + +------+ + Encounter Details +--------+ + + + + | Date | Type | Department | Care Team | Description | +--------+ + + + + | 09/23/ | Orders Only | [facility] | Warren Crawley, | | | 2018 | | [place] | [address] | | | | | [address] | [place] | | | | | [place], [place] | [address] | | | | | [address] | | | | | | [phone] | | | +--------+ + + + [...] [place] | | | | | | [address] | | | | | | | | +--------+---------+ + + + documented as of this encounter Visit Diagnoses Not on filedocumented in this encounter"
--- OUTSIDE RECORDS SUMMARY | ~2019-09-13 | XMS | Encounter Summary ---
Demographics + + + | Address | [address] | | | [place] [address] | + + + | Home Phone | | + + + | Preferred Language | Unknown | + + + | Marital Status | Single | + + + | Yazidism Affiliation | CHR | + + + [...] [place] | | | | | [address] | | + + + + + | Linh Pate | ECON | Unknown | | + + + + + Care Team Providers + +------+ + | Care Audio Tape Librarian Name | Role | Phone | + +------+ + | Erick Bernstein DO | PCP | | + +------+ + Encounter Details +--------+ + + + + | Date | Type | Department | Care Team | Description | +--------+ + + + + | 12/04/ | Abstract | Cardiology [facility] at | Kyle Ambrose MD | | | 2012 | | [facility] [address] | [address] | | | | | [place] Mailcode: CH9A | [facility] [address] | | | | | [facility] | [place] [address] | | | | | and [place], | [phone] | | | | | Building | | | | | | Floor [place], [place] | | | | | | [address] | | | | | | [phone] | | | +--------+ + + + [...]
--- OUTSIDE RECORDS SUMMARY | ~2019-09-13 | XMS | Encounter Summary ---
Demographics + + + | Address | [address] | | | [place] [address] | + + + | Home Phone | | + + + | Preferred Language | Unknown | + + + | Marital Status | Single | + + + | Yarsani Affiliation | CHR | + + + | Race | White | + + + | Ethnic Group | Not or | + + + Author + + + | Author | [facility] | + + + | Organization | [facility] | + + + | Address | Unknown | + + + | Phone | Unavailable | + + + Support + + + + + | Name | Relationship | Address | Phone | + + + + + | Joanne Zhang | [place] | [address] | | | | | [place] | | | | | [address] | | + + + + + | Linh Wauregan | ECON | Unknown | | + + + + + Care Team Providers + +------+ + | Care Cloud Automation Tester Name | Role | Phone | [...] + + | 10/08/ | Emergency | [facility] | | | | 2012 | | Department [address] | | | | | | [address] | | | | | | [facility] | | | | | | [place], [place] | | | | | | [address] | | | | | | [phone] | | | +--------+ + + + [...]
--- OUTSIDE RECORDS SUMMARY | ~2019-09-13 | XMS | Encounter Summary ---
Demographics + + + | Address | [address] | | | [place] [address] | + + + | Home Phone [...] [place] | | | | | [address] | | + + + + + | Linh Pate | ECON | Unknown | | + + + + + Care Team Providers + +------+ + | Care Housekeeping Cleaner Name | Role | Phone | + +------+ + | Erick Bernstein DO | PCP | | + +------+ + Encounter Details +--------+ + + + + | Date | Type | Department | Care Team | Description | +--------+ + + + + | 11/28/ | Silo Erector | Cardiothoracic | Neda Casillas, | | | 2012 | | Surgery at [facility] | PA-C | | | | | [address] | | | | | | Mailcode: L353 | | | | | | Physician'miranda Lawler | | | | | | [place], [place] | | | | | | [address] | | | | | | [phone] | | | +--------+ + + + [...]
--- OUTSIDE RECORDS SUMMARY | ~2019-09-13 | XMS | Encounter Summary ---
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 here for follow-up visit. [...] secondary to mental impair ment. 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 Temporary dialysis with recurrent kidney function. Patient las evaluation was placed on Metoprolol and Lisinopril Has one brief syncopal episo de, at [facility] was noted to be bradycardic. Metoprolol was stopped and patient is tolerating Lisinopril well. Patient discharge medications from [facility] included metoprolol, lisinopril, simvastatin, and a miodarone. [...] 09/30/2012 Severe triple-vessel coronary artery disease. LAD JEWELRY SALES REPRESENTATIVE at mid segment with left to left [...] [place] | | | | | | [id number] | | | | | | | [...]
--- OUTSIDE RECORDS SUMMARY | ~2019-09-13 | XMS | Encounter Summary ---
Demographics + + + | Address | [address] | | | [place] [address] | + + + | Home Phone | | + + + | Preferred Language | Unknown | + + + | Marital Status | Single | + + + | Pentecostal Affiliation | CHR | + + + | Race | White | + + + | Ethnic Group | Not or | + + + Author + + + | Author | [facility] | + + + | Organization | [facility] | + + + | Address | Unknown | + + + | Phone | Unavailable | + + + Support + + + + + | Name | Relationship | Address | Phone | + + + + + | Joanne Zhang | [place] | [address] | | | | | [place] | | | | | [address] | | + + + + + | Linh Pate | ECON | Unknown | | + + + + + Care Team Providers + +------+ + | Care Rural Health Consultant Name | Role | Phone | [...] | | | | | artery | [place], [place] | [address] | | | | | disease) [place] | [address] | [facility] | | | | | (left | Phone: | Building | | | | | ventricular) | [phone] | [place], [place] | | | | | mural | Fax: | [address] | | | | | thrombus | [phone] | Phone: | | | | | Procedures | | [phone] | | | | | TRANSTHORACI | [...] + + + + | 11/14/ | Radio Equipment Installer | Cardiology [facility] at | Michael Colon, | Arrhythmia (Primary | | 2012 | | [facility] [address] | MD [address] | Dx); CAD (coronary | | | | Ave Mailcode: CH9A | [place], [place] | artery disease); LV | | | | [facility] | [address] | (left ventricular) | | | | and Healing, | [phone] | mural thrombus | | | | Building | | | | | | Floor [place], [place] | | | | | | [address] | | | | | | [phone] | | | +--------+ + + + [...] DEPT OF | [address] | [place], [place] | | | CARDIOLOGY | [address] | [address] | | + + + + + [...] of unspecified type of vessel, | | habematolel or graft | + + | LV (left ventricular) mural thrombus Acute myocardial infarction, unspecified site, | | episode of care unspecified | + + documented in this encounter"
--- OUTSIDE RECORDS SUMMARY | ~2019-09-13 | XMS | Encounter Summary ---
Demographics + + + | Address | [address] | | | [place] [address] | + + + | Home Phone [...] Author | [facility] | + + + | Organization | [facility] | + + + | Address | Unknown | + + + | Phone | Unavailable | + + + Support + + + + + | Name | Relationship | Address | Phone | + + + + + | Joanne Zhang | [place] | [address] | | | | | [place] | | | | | [address] | | + + + + + | Linh Pate | ECON | Unknown | | + + + + + Care Team Providers + +------+ + | Care Cuff Knitter Name | Role | Phone | + +------+ + | Erick Bernstein DO | PCP | | + +------+ + Encounter Details +--------+ + + + + | Date | Type | Department | Care Team | Description | +--------+ + + + + | 09/30/ | Results | LAB REFERRED TESTS | Other, Faculty | | | 2012 | Only | [address] [facility] | [phone] | | | | | [address] | | | | | | [place], [place] | | | | | | [address] | | | +--------+ + + + [...] DEPT OF | [address] | [place], [place] | | | CARDIOLOGY | [address] | [address] | | + + + + + [...] + + | [facility] | [address] | [place], [place] | | | CARDIOLOGY | [address] | [address] | | + + + + + documented in this encounter Visit Diagnoses Not on filedocumented in this encounter"
--- OUTSIDE RECORDS SUMMARY | ~2019-09-13 | XMS | Encounter Summary ---
Demographics + + + | Address | [address] | | | [place] [address] | + + + | Home Phone | | + + + | Preferred Language | Unknown | + + + | Marital Status | Single | + + + | Temple Affiliation | Unknown | + + + | Race | Unknown | + + + | Ethnic Group | Unknown | + + + Author + + + | Author | [facility] | | | and [place] | + + + | Organization | [facility] | | | [...] Team Providers + +------+ + | Care Inspector Metal Fabricating Name | Role | Phone | + [...] | | | | [address] | [phone] | | | | | [address] | | | | | | [phone] | | | +--------+ + + + [...] | | | | | [place] | | | | | | [address] | | | | | | | | +--------+---------+ + + + documented as of this encounter Visit Diagnoses Not on filedocumented in this encounter"
--- OUTSIDE RECORDS SUMMARY | ~2019-09-13 | XMS | Encounter Summary ---
Demographics + + + | Address | [address] | | | [place] [address] | + + + | Home Phone | | + + + | Preferred Language | Unknown | + + + | Marital Status | Single | + + + | Jew Affiliation | CHR | + + + | Race | White | + + + | Ethnic Group | Not or | + + + Author + + + | Author | [facility] | + + + | Organization | [facility] | + + [...] [place] | | | | | [address] | | + + + + + | Linh Pate | ECON | Unknown | | + + + + + Care Team Providers + +------+ + | Care Bulb Filler Name | Role | Phone | + [...] | | | | Eliot P, | [facility] [address] | | | | | [address]ACI | MD | [address] | | | | | C | | Mailcode: | | | | | ECHOCARDIOGR | | [address] | | | | | AM, ADULT | | [facility] | | | | | | | Building | | | | | | | [place], [place] | | | | | | | [address] | | | | | | | Phone: | | | | | | | [phone] | +--------+--------+ + + + + Diagnostic [...] | | | | MD Shira | [facility] [address] | | | | | TRAN[address]ACI | [address] | [address] | | | | | C | [facility] Mailcode: | | | | | ECHOCARDIOGR | [address] | [address] | | | | | AM, ADULT | [place], [place] | [facility] | | | | | | [address] | Building | | | | | | Phone: | [place], [place] | | | | | | [phone] | [address] | | | | | | | Phone: | | | | | | | [phone] | +--------+--------+ + + + + Diagnostic [...] Building | | | | | | [facility] [place] | [facility] [place] | | | | | | [address] | [address] | | | | | | | Phone: | | | | | | | [phone] | +--------+--------+ + + + + Diagnostic [...] | | | Steven Gatica, | [address] | | | | | TRANSTHORACI | MD [address] | [address] | | | | | C | [address] | Mailcode: | | | | | ECHOCARDIOGR | Roxann Benjamin | [address] | | | | | AM, ADULT | [place], [place] | [place] | | | | | | [address] | Building | | | | | | | [place], [place] | | | | | | | [address] | | | | | | | Phone: | | | | | | | [phone] | +--------+--------+ + + + + Diagnostic Testing (Routine) +--------+--------+ + + + + | Status | Reason | Specialty | Diagnoses / | Referred By | Referred To | | | | | Procedures | Contact | Contact | +--------+--------+ + + + + | Closed | | Cardiology | Procedures | Pratibha eDcker Echo | | | | | | MD Concha | [facility] [address] | | | | | TRAN[address]ACI | | [address] | | | | | C | | Mailcode: | | | | | ECHOCARDIOGR | | [address] | | | | | AM, ADULT | | [address] | | | | | | | Luz | | | | | | | [place], [place] | | | | | | | [address] | | | | | | | Phone: | | | | | | | [phone] | +--------+--------+ + + + + Diagnostic [...] | | | | | | | [place], [place] | | | | | | | [address] | | | | | | | Phone: | | | | | | | [phone] | | | | | | | Fax: | | | | | | | [phone] | +--------+--------+ + + + + Reason [...] + + | 11/26/ | Hospital | [facility] [address] | Narendra Lunsford, | | | 2012 - | Encounter | [address]/[facility] | | | | | | [facility] | | | | 12/22/ | | [place], [place] | | | | 2012 | | [address] | | | | | | [phone] | | | +--------+ + + + [...] Course: Mr. Josef Ramos was admitted to [facility] on 11/26/2012 for heparin bridge for [...] Lifelong non-smoker Core Measures: Diagnosis of Acute ID: No Diagnosis of CHF: Yes. Patient is on an RICKIE-I/ARB.. Patient is on a beta-jessy at dis charge. Follow Up: Cardiothoracic Surgery - Narendra Lunsford MD - 2 weeks PCP - Erick Bernstein DO - on d/c from [facility] Cardiology - Kyle Chavez MD - 4-6 weeks Disposition: [facility] Condition: fair Discharging Physician: Electronically signed by: Kathy WINSTON PA-C Department of Surgery | Division of Cardiothoracic Surgery Attending Physician: Narendra Lunsford MD OPERATIVE NOTE Date: 11/29/2012 Attending Surgeon: NARENDRA LUNSFORD MD Relocation Director(s): Kathy Castro PA-C No residents of the [...] were present during the team pause: Surgeon, physician's assistant, nursing, anesthesia, perfusion. Findings at Surgery: [...] care unit. Narendra Lunsford MD, FACS, FACC Draw Press Operator, Department of Surgery Head, Adult Cardiac Surgery Co-Director, Multidisciplinary Heart Valve Clinic [facility] [employer] [facility] | [email or web address] documented in this encounter Medications at Time [...] 1 hour (Electronically Signed) Joseph Lewis PA-C [facility] Cardiac Surgery loria KathySARANYA Hammond - 12/20 [...] outpatient follow up. MD MEHDI Moses MD [facility] [address]uhs8[place] [address] [facility] DEPARTMENT: [id number]- [facility] NEPHROLOGY [facility] Place of Service: - IP CSN: [id number] Suggested Modifier: GC Resident Involved rotain, Josse [...] plan. Josse Rojas MD Nephrology Fellow Pager [phone] SUBJECTIVE & INTERVAL EVENTS: No significant overnight [...] injection 7 Units 7 Units Subcutaneous Q8H qqsibftwmuxw-uxxs-qkfyeskk (aka CEROVITE) liquid 15 mL 15 mL [...] plan of care. MD MEHDI Moses MD [facility] [address] [address] [facility] DEPARTMENT: [id number] NEPHROLOG[facility] Place of Service: CSN: [id number] Suggested Modifier: GC Resident Involved Josse Mcgowan [...] as he would likely not need further MACHINE HOSTLER. Hypernatremia- Mild, likely due to impaired access [...] plan. Josse Rojas MD Nephrology Fellow Pager [phone] SUBJECTIVE & INTERVAL EVENTS: No significant overnight [...] injection 7 Units 7 Units Subcutaneous Q8H dorbthvrdtwa-peis-isqwofcr (aka CEROVITE) liquid 15 mL 15 mL [...] JOHNNY RASCON PA-C Division of Cardiothoracic Surgery [facility] Mail Code L353 [address] [facility] [address] Mehdi Earl M D - 12/18/2012 8:04 AM PDTI performed a history and physical examination of the patient and discussed his management with the resident. I reviewed the resident s note and agree wit h the documented findings and plan of care. MD MEHDI Moses MD [address] [facility] [address] [address] [facility] DEPARTMENT: [id number]- [facility] NEPH[facility]OLOG[facility] Place of Service: CSN: [id number] Suggested Modifier: GC Resident Involved Josse Mcgowan [...] Ab, HBVsAb, and try to arrange [facility] for later this week. RECOMMENDATIONS: See recommendations above in bold. We will continue to follow and offer additional recommendations as his clinical course unfo lds. Patient was seen and staffed with Dr. Blue, who agrees with the assessment and plan. Josse Rojas MD Nephrology Fellow Pager [phone] SUBJECTIVE & INTERVAL EVENTS: No significant overnight [...] injection 7 Units 7 Units Subcutaneous Q8H vyfpfvgtixpm-tosu-xbmwwsfs (aka CEROVITE) liquid 15 mL 15 mL [...] CALAZIME) topical paste, , Topical, QID PRN zxepycauwdbf-zuqq-ezzlaqud (aka CEROVITE) liquid 15 mL, 15 mL, [...] Intake/Output Summary (Last 24 hours) at 12/17/12 0907 Last data filed at 12/17/12 0610 Gross [...] to set up outpatient HD/tunneled HD line [facility] DEPARTMENT: [id number]- [facility] NEPHROLOGY [facility] Place of Service: 720[address] - CSN: [id number] Suggested Modifier: None Sidney Olson MD - [...] Progress note Interval events: pt transferred to [facility], awake but minimally responsive this AM [...] CALAZIME) topical paste, , Topical, QID PRN gprifhdotzwm-vsbk-laxhinmf (aka CEROVITE) liquid 15 mL, 15 mL, [...] may need to set up outpatient HD [facility] DEPARTMENT: [id number] NE[facility]OLOG[facility] Place of Service: 95833 - CSN: [id number] Suggested Modifier: None Johnny Morataya PA- C [...] JOHNNY RASCON PA-C Division of Cardiothoracic Surgery [facility] [place] Mail Code L353 [address] [place] [facility] [place] [facility] [place] [address] Veronika Bolaoñs MD - 12/15/2012 1:06 PM PDT 8[facility] DAILY PROGRESS NOTE (Resident) Team Pager: [phone] Attendin Author: Veronika Palacios MD Date:12/15/2012 Attending Waist Pleater: Operating Surgeon: MD Narendra Ellison MD POD [...] - 12/15/2012 9:02 AM PDT 8[facility] ATTENDING SOFTWARE TEST AND VALIDATION ENGINEER PROGRESS NOTE Team Pager: [phone] Attendin I saw and examined the patient [...] Department of Anesthesiology and Ольга-Operative Medicine [address] [facility]. [facility] [place] [address] [facility] DEPARTMENT: [facility] ICU CARDIAC [[id number]] Place of Service:- Inpatient Date of Service: 12/15/2012 CSN: [id number] Suggested Modifier: GC - Resident Involved Suggested CPT: TO FRICTION WELDING MACHINE OPERATOR 9: 10 AM Veronika Bolaños MD - 12/14/2012 12:42 PM PDTFormatting of this note might be differ ent from the original. [facility] DAILY PROGRESS NOTE (Resident) Team Pager: [phone] Attendin Author: Veronika Palacios MD Date:12/14/2012 Attending Waist Pleater: Operating Surgeon: MD Narendra Ellison MD POD [...] - 12/14/2012 8:13 AM PDT 8[facility] ATTENDING SOFTWARE TEST AND VALIDATION ENGINEER DAILY PROGRESS NOTE Team Pager: [phone] Attendin Date:12/14/2012 Author: HEIDI NIETO MD Attestation: [...] patient who is currently criti ryan ill. [facility] DEPARTMENT: [facility] ICU CARDIAC [[id number]] Place of Service:- Inpatient Date of Service: 12/14/2012 CSN: [id number] Suggested Modifier: GC - Resident Involved Suggested CPT: TO FRICTION WELDING MACHINE OPERATOR Respiratory: Recent Labs Basename 12/12/12 0819 12/12/12 [...] (aka CALAZIME) topical paste Topical QID PRN gvpbrvhqbbld-hfvr-leidzmtn (aka CEROVITE) liquid 15 mL 15 mL [...] be different from the db PRESSLEY ATTENDING SOFTWARE TEST AND VALIDATION ENGINEER PROGRESS NOTE Team Pager: [phone] Attendin TTE performed this AM discussed with [...] Department of Anesthesiology and Ольга-Operative Medicine [address] [facility]. [facility] [place] [address] [facility] DEPARTMENT: [facility] ICU CARDIAC [[id number]] Place of Service:- Inpatient Date of Service: 12/13/2012 CSN: [id number] Suggested Modifier: None Suggested CPT: TO FRICTION WELDING MACHINE OPERATOR 3: 12 PM PDTVeronika Palacios MD - 12/13/2012 9:07 AM PDTFormatting of this note might be differ ent from the original. 8[facility] DAILY PROGRESS NOTE (Resident) Team Pager: [phone] Attendin Author: Veronika Palacios MD Date:12/13/2012 Attending Waist Pleater: Operating Surgeon: MD Narendra Ellison MD POD [...] closure 3/17/13 - Dialysis catheter place in [facility]; CRRT initiated for acute kidney failure and [...] MD - 7:41 AM PDT 8[facility] ATTENDING SOFTWARE TEST AND VALIDATION ENGINEER DAILY PROGRESS NOTE Team Pager: [phone] Attendin Date:12/13/2012 Author: HEIDI NIETO MD Attestation: [...] patient who is currently criti ryan ill. [facility] DEPARTMENT: [facility] ICU CARDIAC [[id number]] Place of Service:- Inpatient Date of Service: 12/13/2012 CSN: [id number] Suggested Modifier: GC - Resident Involved Suggested CPT: TO FRICTION WELDING MACHINE OPERATOR Respiratory: Recent Labs Basename 12/12/12 0819 12/12/12 0400 FIO2 .4 .40 PH 7.48* 7.46* PCO2 36 38 PO2 112* 113* HCO3 26 27 ABGEXCESS 3.2 3.0 Renal: Intake/Output Summary (Last 24 hours) at 12/13/12 0741 Last data filed at 12/13/12 0600 Gross per 24 hour Intake 63257.7 ml Output 80959 ml Net 152.7 ml ID: Temp (24hrs), [...] - 12/12/2012 11:07 PM PDT 8[facility] ATTENDING SOFTWARE TEST AND VALIDATION ENGINEER NIGHT PROGRESS NOTE Team Pager: [phone] Attendin Events of the day, patient condition, [...] patient who is critically ill (Josef Roman [facility] [id number] ) Oriana Ram MD Ice Crusher Department of Anesthesiology and Ольга-Operative Medicine Critical Care [facility] DEPARTMENT: [facility] ICU CARDIAC [[id number]] Place of Service:- Inpatient Date of Service: 12/12/2012 CSN: [id number] Suggested Modifier: Suggested CPT: TO FRICTION WELDING MACHINE OPERATOR Data below used in this assessment: Hemodynamics: [...] 12/12/12 2200 Gross per 24 hour Intake 29315.4 ml Output 18398 ml Net -166.6 ml Recent Labs Basename [...] [facility] DAILY PROGRESS NOTE (Resident) Team Pager: [phone] Attendin Author: Veronika Palacios MD Date:12/12/2012 Attending Waist Pleater: Operating Surgeon: MD Narendra Ellison MD POD [...] - 12/12/2012 8:05 AM PDT 8[facility] ATTENDING SOFTWARE TEST AND VALIDATION ENGINEER DAILY PROGRESS NOTE Team Pager: [phone] Attendin Date:12/12/2012 Author: HEIDI NIETO MD Attestation: [...] patient who is currently criti ryan ill. [facility] DEPARTMENT: [facility] ICU CARDIAC [[id number]] Place of Service:- Inpatient Date of Service: 12/12/2012 CSN: [id number] Suggested Modifier: GC - Resident Involved Suggested CPT: TO FRICTION WELDING MACHINE OPERATOR Hemodynamics: Hemodynamic Drips: Arterial BP Mean: 76 [...] 12/12/12 0700 Gross per 24 hour Intake 29905.16 ml Output 27464 ml Net -382.84 ml ID: Temp (24hrs), [...] (aka CALAZIME) topical paste Topical QID PRN hesnxpgjaxil-krhf-lpekioai (aka CEROVITE) liquid 15 mL 15 mL [...] - 12/11/2012 11:21 PM PDT 8[facility] ATTENDING SOFTWARE TEST AND VALIDATION ENGINEER NIGHT PROGRESS NOTE Team Pager: [phone] Attendin Events of the day, patient condition, [...] patient who is critically ill (Josef Roman [facility] [id number] ) Oriana Ram MD Ice Crusher Department of Anesthesiology and Ольга-Operative Medicine Critical Care [facility] DEPARTMENT: [facility] ICU CARDIAC [[id number]] Place of Service:- Inpatient Date of Service: 12/11/2012 CSN: [id number] Suggested Modifier: Suggested CPT: TO FRICTION WELDING MACHINE OPERATOR Data below used in this assessment: Hemodynamics: [...] 12/11/12 2200 Gross per 24 hour Intake 76819.36 ml Output 78118 ml Net -761.64 ml Recent Labs Basename [...] 0759) RSBI at 5 min: 43.01 (12/11/12 7499) Proceed to 30 min SBT: Yes, proceed to 30 min SBT (12/11/12 5673) RSBI at 30 min: 40.27 (12/11/12 1432) [...] (aka CALAZIME) topical paste Topical QID PRN yhiznmtdjfwo-rlcc-zgnlsbjj (aka CEROVITE) liquid 15 mL 15 mL [...] - 12/11 9:15 AM PDT 8[facility] ATTENDING SOFTWARE TEST AND VALIDATION ENGINEER DAILY PROGRESS NOTE Team Pager: [phone] Attending Pager: [phone] Author: MARCY SIFUENTES DO ATTESTATION: I saw [...] who is critically ill. Marcy Sifuentes DO Ice Crusher Department of Anesthesiology and Perioperative Medicine [facility] DEPARTMENT: [facility] ICU CARDIAC [[id number]] Place of Service:[address]- Inpatient Date of Service: 12/11/2012 CSN: [id number] Suggested Modifier: GC - Resident Involved Suggested CPT: TO FRICTION WELDING MACHINE OPERATOR Precious Ramires MD - 5:58 AM PDT 8[facility] DAILY PROGRESS NOTE (Resident) Team Pager: [phone] Attendin Author: PRECIOUS ALVARADO MD Date:12/11/2012 Attending Waist Pleater: Operating Surgeon: MD Narendra Figueroa MD POD [...] im plementation of plans. JOHNNY MERAZ PA-C [facility] DEPARTMENT: [facility] ICU CARDIAC [[id number]] Place of Service:- Inpatient Date of Service: 12/11/2012 CSN: [id number] Suggested Modifier: None Suggested CPT: TO FRICTION WELDING MACHINE OPERATOR Mack Malagon MD - 12/10/2012 2:15 PM PDT [facility] DEPARTMENT: [facility]- [id number] Place of Service: IP - Date of Service: 12/10/2012 CSN: [id number] Modifiers:GC Resident Involved: yes Suggested CPT: 19457 Critical Care, Initial 30-74 minutes 36 minutes total time spent in Critical care independent of procedures. My impression, recent events and assesment are at the top of this note. Today's data which were reviewed are listed below the A&P I saw and examined JOSEF RAMOS with the [facility] housestaff. I agree with the written [...] Value Range Status 12/10/2012 Final Value: STUDY: HI CHEST 1 VIEW 12/10/12 05:41:00 HISTORY: Evaluate [...] don't want to correct too quickly/ over-correct. [facility] DEPARTMENT: [id number]- [facility] NEPHROLOGY [facility] Place of Service: 24[address] - CSN: [id number] Suggested Modifier: GC Resident Involved abib, Kenia [...] topical paste Topical QID PRN SARANYA Young zokfsmxvebfe-uyvf-cbqoynbi (aka CEROVITE) liquid 15 mL 15 mL [...] [facility] DAILY PROGRESS NOTE (Resident) Team Pager: [phone] Attendin Author: PRECIOUS ALVARADO MD Date:12/10/2012 Attending Waist Pleater: Operating Surgeon: MD Narendra Green MD POD [...] fernandez agree with her findings and plan. [facility] DEPARTMENT: [id number]- [facility] NEPHROLOGY [facility] Place of Service: [address] - IP CSN: [id number] Suggested Modifier: GC Resident Involved Kenia Arredondo [...] (1 unit/mL) 0.25-40 Units/hr Intravenous CONTINUOUS Eliot aCrr MD 3 mL/hr at 12/09/12 1202 3 Units/hr at 12/09/12 1 202 magnesium sulfate IV 2 g 2 g Intravenous PRN Kenia Parish MD menthol-zinc oxide (aka CALAZIME) topical paste Topical QID PRN SARANYA Young mjaqaoymynle-muqw-fipfebas (aka CEROVITE) liquid 15 mL 15 mL [...] 8[facility] DAILY PROGRESS NOTE (fellow) Team Pager: [phone] Attendin Author: Veronika Palacios MD Date:12/09/2012 Attending Waist Pleater: Operating Surgeon: MD Narendra Snyder MD POD [...] different from the or iginal. 8[facility] ATTENDING SOFTWARE TEST AND VALIDATION ENGINEER DAILY PROGRESS NOTE Team Pager: [phone] Attending Pager: [phone] Author: ELMIRA SALGUERO MD ATTESTATION: I saw and evaluated the patient at the bedside together with Dr. Palacios. Please see their note for a detailed rounding summary. I reviewed the documented findings, relevant data, and recent imaging available. I agree with the assessment and plan as described in [facility] resident's note with the following exceptions/additions as noted below. HPI: 67 yo man with hx of CAD s/p 3V CABG (DE [place] ROSA --> LAD, SVG --> OM, PDA) on 11/29/12, development al delay, morbid obesity, VT, LV thrombus, HTN, and CKD (baseline Cr ~1.5) who returned to [facility] ICU [facility] for shortness [...] renal failure: [facility] Significantly po st-ATN diuresis. Cr, BUN, and [...] who is critically ill. Elmira Salguero MD Ice Crushersawmill hand Pulmonary and Critical Care Medicine [facility] DEPARTMENT: [facility] [id number] Place of Service: Date of Service: 12/09/2012 CSN: [id number] Modifiers: Resident Involved: yes Suggested CPT: 84572 Critical Care, Initial 30-74 minutes Mack Malagon MD - 11/24 8:08 PM PDT [facility] DEPARTMENT: [facility]- [id number] Place of Service: Date of Service: 12/08/2012 CSN: [id number] Modifiers: Resident Involved: yes Suggested CPT: 90155 Critical Care, Initial 30-74 minutes 42 minutes total time spent in Critical care independent of procedures. My impression, recent events and assesment are at the top of this note. Today's data which were reviewed are listed below the A&P I saw and examined JOSEF RAMOS with the [facility] housestaff. I agree with the written [...] Date Value Range Status 12/08/2012 Final Value: HI CHEST 1 VIEW, 12/08/12 05:49:00 COMPARISON: 12/07/12 [...] closed Dispo: Critical, stable to SICU Dictation: [id number] HELEN GEE MD Cardiothoracic Surgery Fellow Elmira Rutherford MD - 12/08/2012 7:32 AM PDT 8[facility] ATTENDING SOFTWARE TEST AND VALIDATION ENGINEER DAILY PROGRESS NOTE Team Pager: [phone] Attending Pager: [phone] Author: ELMIRA SALGUERO MD ATTESTATION: I saw [...] CKD (baseline Cr ~1.5) who returned to [facility] for shortness [...] who is critically ill. Elmira Salguero MD Ice Crushersawmill hand Pulmonary and Critical Care Medicine [facility] DEPARTMENT: [facility]- [id number] Place of Service: [facility] Date of Service: 12/08/2012 CSN: [id number] Modifiers:GC Resident Involved: yes Suggested CPT: 94023 Critical Care, Initial 30-74 minutes Veronika Bolaños MD - 6:04 AM PDT 8[facility] DAILY PROGRESS NOTE (fellow) Team Pager: [phone] Attendin Author: Veronika Palacios MD Date:12/08/2012 Attending Waist Pleater: Operating Surgeon: MD Narendra Snyder MD POD [...] might be different from the mónica gishobha. [facility] DEPARTMENT: [facility]- [id number] Place of Service: Date of Service: 12/07/2012 CSN: [id number] Modifiers:GC Resident Involved: yes Suggested CPT: 42385 Critical Care, Initial 30-74 minutes 33 minutes total time spent in Critical care independent of procedures. My impression, recent events and assesment are at the top of this note. Today's data which were reviewed are listed below the A&P I saw and examined JOSEF RAMOS with the [facility] housestaff. I agree with the written [...] Value Range Status 12/07/2012 Final Value: STUDY: HI CHEST 1 VIEW 12/07/12 06:14:00 CLINICAL DATA: [...] [facility] DAILY PROGRESS NOTE (fellow) Team Pager: [phone] Attendin Author: Veronika Palacios MD Date:12/07/2012 Attending Waist Pleater: Operating Surgeon: MD Narendra Snyder MD POD [...] different from the or iginal. 8[facility] ATTENDING SOFTWARE TEST AND VALIDATION ENGINEER DAILY PROGRESS NOTE Team Pager: [phone] Attending Pager: [phone] Author: ELMIRA SALGUERO MD ATTESTATION: I saw [...] CKD (baseline Cr ~1.5) who returned to [facility] [...] open chest - renal consult and recs ([facility]) -- watch for dialysis needs - cont heparin infusion, titrate to heparin levels 0.3 -- 0.5, ATIII >0.5 - trophic tube feeds - I/O: do not allow to become significantly more negative than 1L I have spent 35 minutes in the care and management of this patient (not including procedure s), who is critically ill. Elmira Salguero MD Ice Crushersawmill hand Pulmonary and Critical Care Medicine [facility] DEPARTMENT: [facility]- [id number] Place of Service: - Date of Service: 12/07/2012 CSN: [id number] Modifiers:GC Resident Involved: yes Suggested CPT: 46730 Critical Care, Initial 30-74 minutes Mack Malagon MD - 11/24 10:17 PM PDT [facility] DEPARTMENT: [facility]- [id number] Place of Service: - Date of Service: 12/06/2012 CSN: [id number] Modifiers:ADRIAN Resident Involved: yes Suggested CPT: 28708 Critical Care, Initial 30-74 minutes 43 minutes total time spent in Critical care independent of procedures. My impression, recent events and assesment are at the top of this note. Today's data which were reviewed are listed below the A&P I saw and examined JOSEF RAMOS with the [facility] housestaff. I agree with the written [...] 8[facility] DAILY PROGRESS NOTE (fellow) Team Pager: [phone] Attendin Author: Veronika Palacios MD Date:12/06/2012 Attending Waist Pleater: Operating Surgeon: MD Narendra Snyder MD POD [...] different from the or iginal. 8[facility] ATTENDING SOFTWARE TEST AND VALIDATION ENGINEER DAILY PROGRESS NOTE Team Pager: [phone] Attending Pager: [phone] Author: ELMIRA SALGUERO MD ATTESTATION: I saw and evaluated the patient at the bedside together with Dr. Palacios. Please see their note for a detailed rounding summary. I reviewed the documented findings, relevant data, and recent imaging available. I agree with the assessment and plan as described in [facility] resident's note with the following exceptions/additions as noted below. HPI: 67 yo man with hx of CAD s/p 3V CABG (DE LA ROSA --> LAD, SVG --> OM, PDA) on 11/29/12, development al delay, morbid obesity, VT, LV thrombus, HTN, and CKD (baseline Cr ~1.5) who returned [facility] for shortness [...] who is critically ill. Elmira Salguero MD [employer] hand Pulmonary and Critical Care Medicine [facility] DEPARTMENT: [facility]- [id number] Place of Service: IP Date of Service: 12/06/2012 CSN: [id number] Modifiers:GC Resident Involved: yes Suggested CPT: 78218 Critical Care, Initial 30-74 minutes Mack Malagon MD - 11/24 8:36 PM PDT EPIC DEPARTMENT: [facility]- [id number] Place of Service: - Date of Service: 12/05/2012 CSN: [id number] Modifiers:GC Resident Involved: yes Suggested CPT: 30308 Critical Care, Initial 30-74 minutes 32 minutes total time spent in Critical care independent of procedures. My impression, recent events and assesment are at the top of this note. Today's data which were reviewed are listed below the A&P I saw and examined JOSEF RAMOS with the [facility] housestaff. I agree with the written [...] Value Range Status 12/05/2012 Final Value: STUDY: HI CHEST 1 VIEW 12/05/12 07:56:00 INDICATION: Sternotomy [...] 8CSI DAILY PROGRESS NOTE (fellow) Team Pager: [phone] Attendin Author: Veronika Palacios MD Date:12/05/2012 Attending Waist Pleater: Operating Surgeon: MD Narendra Snyder MD POD [...] different from the or iginal. 8CSI ATTENDING SOFTWARE TEST AND VALIDATION ENGINEER DAILY PROGRESS NOTE Team Pager: [phone] Attending Pager: [phone] Author: ELMIRA SALGUERO MD ATTESTATION: I saw [...] CKD (baseline Cr ~1.5) who returned to [facility] for [facility] [...] who is critically ill. Elmira Salguero MD [employer] hand Pulmonary and Critical Care Medicine [facility] DEPARTMENT: [facility]- [id number] Place of Service: - Date of Service: 12/05/2012 CSN: [id number] Modifiers:GC Resident Involved: yes Suggested CPT: 22847 Critical Care, Initial 30-74 minutes Mack Malagon MD - 11/24 9:33 PM PDT [facility] DEPARTMENT: [facility]- [id number] Place of Service: IP Date of Service: 12/04/2012 CSN: [id number] Modifiers:GC Resident Involved: yes Suggested CPT: 33183 Critical Care, Each additional 30 minutes x 4 93 minutes total time spent in Critical care independent of procedures. My impression, recent events and assesment are at the top of this note. Today's data which were reviewed are listed below the A&P I saw and examined JOSEF RAMOS with the [facility] housestaff. I agree with the written [...] Value Range Status 12/04/2012 Final Value: STUDY: HI CHEST 1 VIEW 12/04/12 15:25:00 INDICATION: Left [...] signed / TINY GARCIA 12/04/2012 16:37 PM ortemore Spencer - [...] his chest open Dispo: Critical Dictation # [id number] HELEN GEE MD Cardiothoracic Surgery Fellow Narendra [...] Electronically signed Narendra Lunsford MD, FACS, FACC Draw Press Operator, Department of Surgery Head, Adult Cardiac Surgery Co-Director, Multidisciplinary Heart Valve Clinic [facility] | [email or web address] Elmira Rutherford MD - 0 12/04/2012 3:16 PM PDT 8CSI ATTENDING SOFTWARE TEST AND VALIDATION ENGINEER DAILY PROGRESS NOTE Team Pager: [phone] Attending Pager: [phone] Author: ELMIRA SALGUERO MD ATTESTATION: I saw [...] CKD (baseline Cr ~1.5) who returned [facility] [...] - consider HD if UOP does not garbage 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 Elmira Salguero MD [employer] hand Pulmonary and Critical Care Medicine [facility] DEPARTMENT: [facility]- [id number] Place of Service: - Date of Service: 12/04/2012 [facility]: [id number] Modifiers:GC Resident Involved: yes Suggested CPT: 49251 Critical Care, Each additional 30 minutes x 2 and 14913 Critical Care, Initial 30-74 minutes Joseph Cruz [...] CTA bilateral GI Obese, soft non-tender Skin [place]/warm/dry, sternal and leg incisions are c,d,i Chemistries: [...] to ICU (Electronically Signed) Joseph Lewis PA-C [facility] Cardiac Surgery Gloria Christie MD - 3 3:25 PM PDT Cardiothoracic Surgery Progress Note Procedure: CABG x 3 POD # 3 Past 24 hour Events Transfer to [facility], on heparin gtt for LV thrombus [...] - 12/02/2012 5:40 PM PST 8CSI ATTENDING SOFTWARE TEST AND VALIDATION ENGINEER NIGHT NOTE Team Pager: [phone] Attending Pager: [phone] Date:12/02/2012 Author: DALJIT HARRELL MD Attestation: I [...] M.D. Department of Anesthesiology & Ольга-Operative Medicine [address] [place] [address] [id number] [place] [address] DEPARTMENT: [facility] ICU CARDIAC [[id number]] Place of Service:- Inpatient Date of Service: 12/02/2012 CSN: [id number] Suggested Modifier: Suggested CPT: TO FRICTION WELDING MACHINE OPERATOR Data Below Used in this Assessment: Hemodynamics: [...] - 12/02/2012 10:07 AM PST 8CSI ATTENDING SOFTWARE TEST AND VALIDATION ENGINEER PROGRESS NOTE Team Pager: [phone] Attendin I saw and examined the patient [...] M.A. Department of Anesthesiology and Ольга-Operative Medicine [address] [place] [address] Rd. [facility] [place] [address] [facility] DEPARTMENT: [facility] ICU CARDIAC [[id number]] Place of Service:- Inpatient Date of Service: 12/02/2012 CSN: [id number] Suggested Modifier: GC - Resident Involved Suggested CPT: TO FRICTION WELDING MACHINE OPERATOR 1: 24 PM Veronika Lloyd MD - 12/02/2012 9:18 AM PSTFormatting of this note might be differ ent from the original. 8CSI DAILY PROGRESS NOTE (Cardiac) Team Pager: [phone] Attendin Author: Veronika Palacios MD Date:12/02/2012 Attending Waist Pleater: Operating Surgeon: MD Narendra Ellison MD POD#3 [...] s/p CABG x 3 At risk for ID, CVA, arrythmia, cardiogenic shock LV thrombus Asa, [...] be different from e original. 8CSI ATTENDING SOFTWARE TEST AND VALIDATION ENGINEER NIGHT NOTE Team Pager: [phone] Attending Pager: [phone] Date:12/01/2012 Author: DALJIT HARRELL MD Attestation: I [...] Department of Anesthesiology & Ольга-Operative Medicine [address] [facility] Aurelio. [facility] [place] [id number] [place] [address] DEPARTMENT: [facility] ICU CARDIAC [[id number]] Place of Service:- Inpatient Date of Service: 12/01/2012 CSN: [id number] Suggested Modifier: Suggested CPT: TO FRICTION WELDING MACHINE OPERATOR Data Below Used in this Assessment: Hemodynamics: [...] 8CSI DAILY PROGRESS NOTE (Cardiac) Team Pager: [phone] Attendin Author: Veronika Palacios MD Date:12/01/2012 Attending Waist Pleater: Operating Surgeon: MD Narendra Ellison MD POD#2 [...] s/p CABG x 3 At risk for ID, CVA, arrythmia, cardiogenic shock LV thrombus Decrease [...] - 12/01/2012 7:35 AM PST 8CSI ATTENDING SOFTWARE TEST AND VALIDATION ENGINEER DAILY PROGRESS NOTE Team Pager: [phone] Attendin Date:12/01/2012 Author: HEIDI NIETO MD Attestation: [...] patient who is currently criti ryan ill. [facility] DEPARTMENT: [facility] ICU CARDIAC [[id number]] Place of Service:- Inpatient Date of Service: 12/01/2012 CSN: [id number] Suggested Modifier: GC - Resident Involved Suggested CPT: TO FRICTION WELDING MACHINE OPERATOR Hemodynamics: Hemodynamic Drips: Arterial BP Mean: 70 [...] - 11/30/2012 7:21 PM PST 8CSI ATTENDING SOFTWARE TEST AND VALIDATION ENGINEER NIGHT NOTE Team Pager: [phone] Attending Pager: [phone] Date:11/30/2012 Author: DALJIT HARRELL MD Attestation: I [...] 500, Insulin 7, Milrinone 0.125, NE 0.03, SUPERVISOR ENGINE REPAIR 2 Vent: 3L NC CI 3.1 SVO2 [...] this patient who is critically ill. Daljit Harerll M.D. Department of Anesthesiology & Ольга-Operative Medicine [address] [facility] Roxann Benjamin. [address] [address] [facility] DEPARTMENT: [facility] ICU CARDIAC [[id number]] Place of Service:- Inpatient Date of Service: 11/30/2012 CSN: [id number] Suggested Modifier: GC - Resident Involved Suggested CPT: TO FRICTION WELDING MACHINE OPERATOR Data Below Used in this Assessment: Hemodynamics: [...] at 11/30/121899 Gross per 24 hour Intake 66592.26 ml Output 4055 ml Net 7505.26 ml ID: Temp (24hrs), Av.9 C (98.5 F), Min:36 C (96.8 F), Max:37.5 C (99.5 F) BLOOD CULTURE [facility] (no units) Date Value 11/30/2012 Sent for [...] - 11/30/2012 12:37 PM PST 8CSI ATTENDING SOFTWARE TEST AND VALIDATION ENGINEER PROGRESS NOTE Team Pager: [phone] Attendin Urine has large leukocyte esterase, bacteria, and 103 WBC. Presumptive urosepsis Continue abx and volume resuscitation Milrinone to support LV in setting of resuscitation 14 additional minutes spent in the care and management of this patient who is critically i ll Heidi Nieto M.D., M.A. Department of Anesthesiology and Ольга-Operative Medicine [address] [place] [address]. [address] DEPARTMENT: [facility] ICU CARDIAC [[id number]] Place of Service:68695- Inpatient Date of Service: 11/30/2012 CSN: [id number] Suggested Modifier: None Suggested CPT: TO FRICTION WELDING MACHINE OPERATOR 1: 59 PM Elba Grady - 11/30/2012 11:05 AM PSTTransthoracic echocardiogram completed. Final report to follow. Heidi Munoz MD - 03/2013 7:54 AM PST 8CSI ATTENDING SOFTWARE TEST AND VALIDATION ENGINEER DAILY PROGRESS NOTE Team Pager: [phone] Attendin Date:11/30/2012 Author: HEIDI NIETO MD Attestation: [...] patient who is currently criti ryan ill. [facility] DEPARTMENT: [facility] ICU CARDIAC [[id number]] Place of Service:- Inpatient Date of Service: 11/30/2012 CSN: [id number] Suggested Modifier: GC - Resident Involved Suggested CPT: TO FRICTION WELDING MACHINE OPERATOR Hemodynamics: Hemodynamic Drips: Arterial BP Mean: 66 [...] 8CSI DAILY PROGRESS NOTE (Cardiac) Team Pager: [phone] Attendin Author: MIHIR MCGRATH MD Date:11/30/2012 Attending Waist Pleater: Operating Surgeon: MD Narendra Ellison MD POD# [...] s/p CABG x 3 At risk for ID, CVA, arrythmia, cardiogenic shock Will add milrinone [...] Name: Josef Ramos Date of : 1945 [facility] Medical Record Number: [id number] Date: 11/29/2012 Attending Surgeon: NARENDRA LUNSFORD MD Relocation Director(s): Kathy Castro PA-C No residents of the [...] The patient was positioned appropriately. The following senior engineering team leader s were present during the team pause: Surgeon, physician's assistant, nursing, anesthesia, perfusion. Findings at Surgery: [...] Electronically signed Narendra Lunsford MD, FACS, FACC Draw Press Operator, Department of Surgery Head, Adult Cardiac Surgery Co-Director, Multidisciplinary Heart Valve Clinic [facility] | [email or web address] oseph Lewis - 013 12:50 PM PST [...] CABG tomorrow (Electronically Signed) Joseph Lewis PA-C [facility] Cardiac Surgery Joseph Peres - 11/27/2012 11 [...] mg daily (Electronically Signed) Joseph Lewis PA-C [facility] Cardiac Surgery documented in this encounter [...] | | | al | | vessel, [place] | | | | | | [...] did goahead and | | placed a Sidney per Dr. Zambrano from anesthesiology in the [...] then made note of his hemodynamics andthe Sidney parameters. The sternum | | was closed [...] in critical butstable condition.Helen Gee, MDCJW / [id number] / [id number] / | | [id number] / T: 12/08/2012 Electronically signedMattglen Lunsford MD, FACS, | | FACCAssociate Professor, [facility] of SurgeryGood [facility], Adult Cardiac SurgeryCo-Director, | | [facility] [employer] [facility] HospitalPhone: [phone] | | [phone] | [email or web address] | |fluid and some clot. Although, this [...] note of his hemodynamics and | |the Sidney parameters. The sternum was closed with three [...] Gee MD | |CJW / HS | |[id number] / [id number] / [id number] / | | | | | | | |Electronically signed | |Narendra Lunsford MD, FACS, FACC | |Draw Press Operator, Department of Surgery | |Head, Adult Cardiac Surgery | |Co-Director, Multidisciplinary Heart Valve Clinic | |[facility] | | | | | | |[email or web address] | + + CAPILLARY BLOOD GLUCOSE (NO [...] GONZALEZ | [address] | [place], [place] | | | KAILYN MAZA OF CARE | [address] | [address] | | | TESTS | | | [...] LUPEAM | [address] | [place], [place] | | | SHAUNNA POINT OF CARE | [address] | [address] | | | TESTS | | | [...] [facility] | [address] | [place] [address] | | | SERVICES, CORE | PARK [...] | | | LABORATORY | | | GUAMANIAN | | | SERVICES, | | | [...] | + + + + + | [facility] [employer] | [address] | [place] [address] | | | SERVICES, CORE | PARK [...] [facility] | [address] | [place] [address] | | | SERVICES, CORE | ROXANN [...] | + + + + + | [facility] | [address] | [place] [address] | | | SERVICES, CORE | ROXANN [...] MARQUAM | [address] | [place], [place] | | | KAILYN MAZA OF CARE | [address] | [address] | | | TESTS | | | [...] MARQUAM | [address] | [place], [place] | | | KAILYN MAZA OF CARE | [address] | [address] | | | TESTS | | | [...] GONZALEZ | [address] | [place], [place] | | | KAILYN MAZA OF CARE | [address] | [address] | | | TESTS | | | [...] MARQUAM | [address] | [place], [place] | | | KAILYN MAZA OF CARE | [address] | [address] | | | TESTS | | | [...] | | | LABORATORY | | | GUAMANIAN | | | SERVICES, | | | [...] | + + + + + | [facility] | [address] | [place] [address] | | | SERVICES, CORE | ROXANN [...] | + + + + + | [facility] | [address] | [place] [address] | | | SERVICES, CORE | PARK [...] | + + + + + | [facility] | [address] [facility] | [place] [address] | | | SERVICES, CORE | ROXANN [...] MARQUAM | [address] | [place], [place] | | | SHAUNNA POINT OF CARE | [address] | [address] | | | TESTS | | | [...] MARQUAM | [address] | [place], [place] | | | SHAUNNA POINT OF CARE | [address] | [address] | | | TESTS | | | [...] + + + | [facility] GON[facility] | [address] | [place], [place] | | | KAILYN MAZA OF CARE | [address] | [address] | | | TESTS | | | [...] | + + + + + | [facility] | [address] | [place] [address] | | | SERVICES, CORE | ROXANN [...] MARQUAM | [address] | [place], [place] | | | SHAUNNA POINT OF CARE | [address] | [address] | | | TESTS | | | [...] CARLOS | [address] | [place], [place] | | | KAILYN MAZA OF [facility] | [address] | [address] | | | TESTS | | | [...] | + + + + + | [facility] | [address] | [place] [address] | | | SERVICES, CORE | PARK [...] [facility] | [address] | [place] [address] | | | SERVICES, CORE | ROXANN [...] | | | LABORATORY | | | GUAMANIAN | | | SERVICES, | | | [...] [facility] | [address] | [place] [address] | | | TOI MARIN | ROXANN [...] MARQUAM | [address] | [place], [place] | | | KAILYN MAZA OF JOHN | [facility] | [address] | | | TESTS | | | [...] | + + + + + | BRIG[facility] GONZALE[facility] | [address] | [place], [place] | | | SHAUNNA, POINT OF CARE | [address] | [address] | | | TESTS | | | [...] | + + + + + | [facility] [employer] | [address] | [place] [address] | | | TANIA, TOI | ROXANN [...] CARLOS | [address] | [place], [place] | | | KAILYN MAZA OF JOHN | [facility] | [address] | | | TESTS | | | [...] (H) | 60 - 99 mg/dL | [facility] - | | | GLUCOSE, | [...] GONZALEZ | [address] | [place], [place] | | | SHAUNNA POINT OF CARE | [address] | [address] | | | TESTS | | | | + + + + + X-RAY PORTABLE CHEST 1 VIEW (12/19/2012 6:46 AM PDT) + + + + + + | Component | Value | Ref Range | Performed | Pathologist | | | | | At | Signature | + + + + + + | X-RAY | STUDY: HI CHEST 1 VIEW | | | | [...] | + + + + + | [facility] | [address] | [place] [address] | | | SERVICES, CORE | ROXANN [...] (H) | 60 - 99 mg/dL | [facility] - | | | GLUCOSE, | [...] GONZALEZ | [address] | [place], [place] | | | SHAUNNA POINT OF CARE | [address] | [address] | | | TESTS | | | [...] | + + + + + | [facility] | [address] | [place] [address] | | | SERVICES, TOI | ROXANN [...] | + + + + + | [facility] | [address] | [place] [address] | | | TANIA, TOI | ROXANN [...] [facility] | [address] | [place] [address] | | | SERVICES, CORE | ROXANN [...] | | | LABORATORY | | | GUAMANIAN | | | SERVICES, | | | [...] | + + + + + | [facility] | [address] | [place] [address] | | | SERVICES, CORE | ROXANN [...] + | [place] [facility] | [address] | [place] [address] | | | [place] | | | [...] + + | [facility] | [address] | [place] [address] | | | DIAGNOSTIC | [address] [...] DUNGQUAM | [address] | [place], [place] | | | SHAUNNA POINT OF CARE | [address] | [address] | | | TESTS | | | [...] GONZALEZ | [address] | [place], [place] | | | KAILYN MAZA OF JOHN | [facility] | [address] | | | TESTS | | | [...] MARQUAM | [address] | [place], [place] | | | KAILYN MAZA OF CARE | [facility] | [address] | | | TESTS | | | [...] (H) | 60 - 99 mg/dL | [facility] - | | | GLUCOSE, | [...] GONZALEZ | [address] | [place], [place] | | | KAILYN MAZA OF [facility] | [address] | [address] | | | TESTS | | | | + + + + + X-RAY PORTABLE CHEST 1 VIEW (12/18/2012 6:39 AM PDT) + + + + + + | Component | Value | Ref Range | Performed | Pathologist | | | | | At | Signature | + + + + + + | X-RAY | STUDY: HI CHEST 1 VIEW | | | | [...] [facility] | [address] | [place] [address] | | | SERVICES, CORE | PARK [...] [facility] | [address] | [place] [address] | | | SERVICES, CORE | PARK [...] [facility] | [address] | [place] [address] | | | SERVICES, CORE | PARK [...] | + + + + + | [facility] | [address] | [place] [address] | | | SERVICES, TOI | ROXANN [...] | | | LABORATORY | | | GUAMANIAN | | | SERVICES, | | | [...] | + + + + + | [facility] | [address] | [place] [address] | | | SERVICES, CORE [...] (H) | 60 - 99 mg/dL | [facility] - | | | GLUCOSE, | [...] GONZALEZ | [address] | [place], [place] | | | KAILYN MAZA OF JOHN | [address] | [address] | | | TESTS | | | [...] MARQUAM | [address] | [place], [place] | | | SHAUNNA POINT OF CARE | [address] | [address] | | | TESTS | | | [...] CARLOS | [address] | [place], [place] | | | KAILYN MAZA OF CARE | [address] | [address] | | | TESTS | | | [...] (H) | 60 - 99 mg/dL | [facility] - | | | GLUCOSE, | [...] GONZALEZ | [address] | [place], [place] | | | KAILYN MAZA OF JOHN | [address] | [address] | | | TESTS | | | | + + + + + X-RAY PORTABLE CHEST 1 VIEW (12/17/2012 7:17 AM PDT) + + + + + + | Component | Value | Ref Range | Performed | Pathologist | | | | | At | Signature | + + + + + + | X-RAY | STUDY: HI CHEST 1 VIEW | | | | [...] | + + + + + | [facility] | [address] | [place] [address] | | | SERVICES, CORE | PARK [...] | + + + + + | [facility] | [address] [facility] | [place] [address] | | | SERVICES, TOI | ROXANN [...] [facility] | [address] | [place] [address] | | | SERVICES, CORE | PARK [...] | | | LABORATORY | | | GUAMANIAN | | | SERVICES, | | | [...] | + + + + + | [facility] | [address] | [place] [address] | | | SERVICES, CORE | ROXANN [...] MARQUAM | [address] | [place], [place] | | | SHAUNNA POINT OF CARE | [address] | [address] | | | TESTS | | | [...] MARQUAM | [address] | [place], [place] | | | SHAUNNA POINT OF CARE | [address] | [address] | | | TESTS | | | [...] + + + | [facility] | [address] | [place], [place] | | | SHAUNNA POINT OF CARE | [address] | [address] | | | TESTS | | | [...] MARQUAM | [address] | [place], [place] | | | SHAUNNA POINT OF CARE | [address] | [address] | | | TESTS | | | | + + + + + X-RAY PORTABLE CHEST 1 VIEW (12/16/2012 7:07 AM PDT) + + + + + + | Component | Value | Ref Range | Performed | Pathologist | | | | | At | Signature | + + + + + + | X-RAY | STUDY: HI CHEST 1 VIEW | | | | [...] [facility] | [address] | [place] [address] | | | SERVICES, CORE | ROXANN [...] | + + + + + | [facility] | [address] | [place] [address] | | | SERVICES, CORE | ROXANN [...] [facility] | [address] | [place] [address] | | | SERVICES, CORE | [address] | | | + + + + + MAGNESIUM, PLASMA (12/16/2012 5:20 AM PDT) + +-------+ + + + | Component | Value | Ref Range | Performed | Pathologist | | | | | At | Signature | + +-------+ + + + | MAGNESIUM,P | 2.3 | 1.8 - 2.5 mg/dL | [facility] | | | LASMA | | | [...] [facility] | [address] | [place] [address] | | | SERVICES, CORE | PARK [...] | | | LABORATORY | | | GUAMANIAN | | | SERVICES, | | | [...] [facility] | [address] | [place] [id number] | | | TOI MARIN | ROXANN [...] MARQUAM | [address] | [place], [place] | | | KAILYN MAZA OF JOHN | [facility] | [address] | | | TESTS | | | [...] GONZALEZ | [address] | [place], [place] | | | SHAUNNA POINT OF CARE | [address] | [address] | | | TESTS | | | [...] instructions of the | LABORATORY | | [facility] Lab Manual: | TANIA, CORE | | [email or web address] | | + + + + + + + + | Performing | Address | City/State/Zipcode | Phone Number | | Organization | | | | + + + + + | [facility] | [address] | [place] [address] | | | SERVICES, TOI | ROXANN [...] MARQUAM | [address] | [place], [place] | | | KAILYN MAZA OF [facility] | [address] | [address] | | | TESTS | | | [...] | + + + + + | [facility] | [address] | [place] [address] | | | SERVICES, CORE | ROXANN [...] (H) | 60 - 99 mg/dL | [facility] - | | | GLUCOSE, | [...] GONZALEZ | [address] | [place], [place] | | | KAILYN MAZA OF [facility] | [address] | [address] | | | TESTS | | | [...] | + + + + + | [facility] | [address] | [place] [address] | | | SERVICES, CORE | ROXANN [...] MARQU[facility] | [address] | [place], [place] | | | [facility]YN MA[facility] OF [facility] | [address] | [address] | | | TESTS | | | | + + + + + X-RAY PORTABLE CHEST 1 VIEW (12/15/2012 5:51 AM PDT) + + + + + + | Component | Value | Ref Range | Performed | Pathologist | | | | | At | Signature | + + + + + + | X-RAY | STUDY: HI CHEST 1 VIEW | | | | [...] | | + +---------+ + + | [facility] DEPARTMENT OF | | | | [...] | + + + + + | [facility] | [address] | [place] [address] | | | SERVICES, TOI | ROXANN [...] | + + + + + | [facility] | [address] | [place] [address] | | | SERVICES, CORE | PARK [...] [facility] | [address] | [place] [address] | | | SERVICES, CORE | PARK [...] | | | LABORATORY | | | GUAMANIAN | | | SERVICES, | | | [...] | + + + + + | [facility] | [address] | [place] [address] | | | SERVICES, CORE | ROXANN [...] [facility] | [address] | [place] [address] | | | SERVICES, CORE | PARK [...] [facility] | [address] | [place], [place] | | | KAILYN MAZA OF JOHN | [facility] | [address] | | | TESTS | | | [...] GONZALEZ | [address] | [place], [place] | | | KAILYN MAZA OF CARE | [address] | [address] | | | TESTS | | | [...] | + + + + + | [facility] | [address] | [place] [address] | | | TOI MARIN | ROXANN [...] [facility] | [address] | [place], [place] | | | KAILYN MAZA OF [facility] | [address] | [address] | | | TESTS | | | [...] | | AG, SERUM | | | [facility] | | + + + + + + + + | Specimen | + + | Blood - Blood | + + + + + + + | Performing | Address | City/State/Zipcode | Phone Number | | Organization | | | | + + + + + | [facility] | [address] | [place] [address] | | | [place] | | | [...] + + + | [facility] | [address] | [place], [place] | | | KAILYN MAZA OF CARE | [address] | [address] | | | TESTS | | | [...] | + + + + + | [facility] | [address] | [place] [address] | | | TOI MARIN | ROXANN [...] MAR[facility] | [address] | [place], [place] | | | KAILYN MAZA OF CARE | [address] | [address] | | | TESTS | | | [...] (H) | 60 - 99 mg/dL | [facility] - | | | GLUCOSE, | [...] GONZALEZ | [address] | [place], [place] | | | KAILYN MAZA OF CARE | [address] | [address] | | | TESTS | | | [...] MARQUAM | [address] | [place], [place] | | | KAILYN MAZA OF CARE | [address] | [address] | | | TESTS | | | [...] GONZALEZ | [address] | [place], [place] | | | SHAUNNA POINT OF CARE | [facility] | [address] | | | TESTS | | | | + + + + + X-RAY PORTABLE CHEST 1 VIEW (12/14/2012 5:32 AM PDT) + + + + + + | Component | Value | Ref Range | Performed | Pathologist | | | | | At | Signature | + + + + + + | X-RAY | STUDY: HI CHEST 1 VIEW | | | | [...] (H) | 60 - 99 mg/dL | [facility] - | | | GLUCOSE, | | [...] GONZALEZ | [address] | [place], [place] | | | KAILYN MAZA OF CARE | [address] | [address] | | | TESTS | | | [...] MARKATHERINEAM | [address] | [place], [place] | | | KAILYN MAZA OF CARE | [address] | [address] | | | TESTS | | | [...] [facility] | [address] | [place] [address] | | | SERVICES, CORE | PARK [...] | + + + + + | [facility] | [address] [facility] | [place] [address] | | | TOI MARIN | ROXANN [...] [facility] | [address] | [place] [address] | | | SERVICES, CORE | ROXANN [...] | + + + + + | [facility] | [address] | [place] [address] | | | SERVICES, CORE | ROXANN [...] (H) | 60 - 99 mg/dL | [facility] - | | | GLUCOSE, | [...] GONZALEZ | [address] | [place], [place] | | | KAILYN MAZA OF JOHN | [address] | [address] | | | TESTS | | | [...] MARQUAM | [address] | [place], [place] | | | KAILYN MAZA OF CARE | [address] | [address] | | | TESTS | | | [...] MARQUAM | [address] | [place], [place] | | | KAILYN MAZA OF CARE | [address] | [address] | | | TESTS | | | [...] GONZALEZ | [address] | [place], [place] | | | SHAUNNA POINT OF CARE | [address] | [address] | | | TESTS | | | [...] + + | [facility] | [address] | [place], [place] | | | KAILYN MAZA OF CARE | [address] | [address] | | | TESTS | | | [...] CARLOS | [address] | [place], [place] | | | [place]RAYDEN [place] OF [facility] | [facility] | [address] | | | TESTS | | | [...] [facility] | [address] | [place] [address] | | | SERVICES, CORE | PARK [...] | + + + + + | [facility] | [address] | [place] [address] | | | SERVICES, CORE | ROXANN [...] (H) | 60 - 99 mg/dL | [facility] - | | | GLUCOSE, | | [...] CARLOS | [address] | [place], [place] | | | KAILYN MAZA OF JOHN | [facility] | [address] | | | TESTS | | | [...] + + | Performing | Address | City/State/[facility] Servicescode | Phone Number | | Organization | | | | + + + + + | [facility] | [address] | [place] [address] | | | TANIA, [facility] | [address] | | | + [...] | + + + + + | [facility] | [address] | [place] [address] | | | TOI MARIN | ROXANN [...] GONZALEZ | [address] | [place], [place] | | | [place] OF [facility] | [address] | [address] | | | TESTS | | | [...] + + + | [facility] GON[facility] | [address] | [place], [place] | | | SHAUNNA POINT OF CARE | [address] | [address] | | | TESTS | | | [...] + + | [facility] | [address] [facility] | [place] [address] | | | SERVICES, CORE | PARK [...] | + + + + + | [facility] | [address] [facility] | [place] [address] | | | SERVICES, CORE | PARK [...] | + + + + + | [facility] | [address] | [place] [address] | | | SERVICES, CORE | PARK [...] | + + + + + | [facility] | [address] | [place] [address] | | | TOI MARIN | ROXANN [...] [facility] | [address] | [place] [address] | | | SERVICES, CORE | PARK [...] - [facility] | [address] | [place], [place] | | | SHAUNNA POINT OF CARE | [address] | [address] | | | TESTS | | | [...] GONZALEZ | [address] | [place], [place] | | | SHAUNNA POINT OF CARE | [address] | [address] | | | TESTS | | | [...] MARQUAM | [address] | [place], [place] | | | KAILYN MAZA OF JOHN | [facility] | [address] | | | TESTS | | | [...] - [facility] | [address] | [place], [place] | | | SHAUNNA POINT OF CARE | [address] | [address] | | | TESTS | | | [...] (H) | 60 - 99 mg/dL | [facility] - | | | GLUCOSE, | [...] + + + | [facility] | [address] | [place], [place] | | | SHAUNNA POINT OF [facility] | [address] | [address] | | | TESTS | | | [...] | + + + + + | [facility] | [address] | [place] [address] | | | SERVICES, CORE | ROXANN [...] MAR[facility] | [address] | [place], [place] | | | SHA[facility]NA POINT OF CARE | [address] | [address] | | | TESTS | | | [...] | | + +---------+ + + | [facility] DEPARTMENT OF | | | | [...] | + + + + + | [facility] | [address] | [place] [address] | | | SERVICES, CORE | PARK [...] | + + + + + | [facility] | [address] | [place] [address] | | | SERVICES, TOI | ROXANN [...] MARQUAM | [address] | [place], [place] | | | KAILYN MAZA OF CARE | [facility] | [address] | | | TESTS | | | [...] DUNGQUAM | [address] | [place], [place] | | | KAILYN MAZA OF CARE | [address] | [address] | | | TESTS | | | [...] | + + + + + | [facility] | [address] | [place] [address] | | | SERVICES, CORE | ROXANN [...] CARLOS | [address] | [place], [place] | | | KAILYN MAZA OF JOHN | [facility] | [address] | | | TESTS | | | [...] CARLOS | [address] | [place], [place] | | | KAILYN MAZA OF CARE | [facility] | [address] | | | TESTS | | | [...] (H) | 60 - 99 mg/dL | [facility] - | | | GLUCOSE, | [...] GONZALEZ | [address] | [place], [place] | | | KAILYN MAZA OF CARE | [facility] | [address] | | | TESTS | | | | + + + + + MAGNESIUM, PLASMA (12/12/2012 8:19 AM PDT) + +-------+ + + + | Component | Value | Ref Range | Performed | Pathologist | | | | | At | Signature | + +-------+ + + + | MAGNESIUM,P | 1.9 | 1.8 - 2.5 mg/dL | [facility] | | | [facility] | | | LABORATORY | | | [...] | + + + + + | [facility] | [address] [facility] | [place] [address] | | | SERVICES, CORE | PARK [...] [facility] | [address] | [place] [address] | | | SERVICES, CORE | PARK [...] | + + + + + | [facility] | [address] | [place] [address] | | | TOI MARIN | ROXANN [...] (H) | 60 - 99 mg/dL | [facility] - | | | GLUCOSE, | [...] CARLOS | [address] | [place], [place] | | | SHAUNNA POINT OF CARE | [address] | [address] | | | TESTS | | | [...] GONZALEZ | [address] | [place], [place] | | | HILLARY MAZA | [facility] | [address] | | | TESTS | | | | + + + + + X-RAY PORTABLE CHEST 1 VIEW (12/12/2012 5:53 AM PDT) + + + + + + | Component | Value | Ref Range | Performed | Pathologist | | | | | At | Signature | + + + + + + | X-RAY | EXAM: HI CHEST 1 VIEW | | | | [...] | | | | | TIGRE CONLEYuthor: Vinnie | | | | | | [...] [facility] | [address] | [place] [address] | | | TANIA, TOI | PARK [...] | + + + + + | [facility] | [address] | [place] [address] | | | TANIA, TOI | ROXANN [...] | + + + + + | [facility] | [address] | [place] [address] | | | SERVICES, CORE | PARK [...] [facility] | [address] | [place] [address] | | | SERVICES, CORE | PARK [...] | + + + + + | [facility] | [address] [facility] | [place] [address] | | | SERVICES, CORE | PARK [...] [facility] | [address] | [place] [address] | | | TOI MARIN | ROXANN [...] [facility] | [address] | [place] [address] | | | SERVICES, CORE | [address] | | | + + + + + MAGNESIUM, PLASMA (12/12/2012 4:00 AM PDT) + +-------+ + + + | Component | Value | Ref Range | Performed | Pathologist | | | | | At | Signature | + +-------+ + + + | MAGNESIUM,P | 2.0 | 1.8 - 2.5 mg/dL | [facility] | | | LASMA | | | [...] | + + + + + | [facility] | [address] | [place] [address] | | | SERVICES, CORE | ROXANN [...] (H) | 60 - 99 mg/dL | [facility] - | | | GLUCOSE, | [...] GONZALEZ | [address] | [place], [place] | | | KAILYN MAZA OF CARE | [address] | [address] | | | TESTS | | | [...] MARQUAM | [address] | [place], [place] | | | HILL, POINT OF CARE | [address] | [address] | | | TESTS | | | [...] MARQUAM | [address] | [place], [place] | | | KAILYN MAZA OF JOHN | [facility] | [address] | | | TESTS | | | [...] GONZALEZ | [address] | [place], [place] | | | KAILYN MAZA OF CARE | [address] | [address] | | | TESTS | | | [...] MARQUAM | [address] | [place], [place] | | | HILL, POINT OF CARE | [address] | [address] | | | TESTS | | | [...] | + + + + + | [facility] | [address] | [place] [address] | | | SERVICES, CORE | PARK [...] | + + + + + | [facility] | [address] | [place] [address] | | | SERVICES, CORE | ROXANN [...] | + + + + + | [facility] | [address] | [place] [address] | | | SERVICES, CORE | ROXANN [...] (H) | 60 - 99 mg/dL | [facility] - | | | GLUCOSE, | [...] GONZALEZ | [address] | [place], [place] | | | KAILYN MAZA OF JOHN | [address] | [address] | | | TESTS | | | [...] | + + + + + | [facility] | [address] | [place] [address] | | | SERVICES, TOI | ROXANN [...] - [facility] | [address] | [place], [place] | | | KAILYN MAZA OF CARE | [facility] | [address] | | | TESTS | | | [...] (H) | 60 - 99 mg/dL | [facility] - | | | GLUCOSE, | [...] LUPEAM | [address] | [place], [place] | | | KAILYN MAZA OF JOHN | [address] | [address] | | | TESTS | | | [...] GONZALEZ | [address] | [place], [place] | | | KAILYN MAZA OF JOHN | [facility] | [address] | | | TESTS | | | [...] LABORATORY | [address] | [place] [address] | | | SERVICES, CORE | ROXANN [...] [facility] | [address] | [place] [address] | | | SERVICES, CORE | PARK [...] [facility] | [address] | [place] [address] | | | SERVICES, CORE | [...] - [facility] | [address] | [place], [place] | | | SHAUNNA POINT OF CARE | [address] | [address] | | | TESTS | | | [...] + + + | [facility] | [address] | [place], [place] | | | SHAUNNA POINT OF CARE | [address] | [address] | | | TESTS | | | [...] MARQUAM | [address] | [place], [place] | | | KAILYN MAZA OF CARE | [facility] | [address] | | | TESTS | | | [...] | + + + + + | [facility] | [address] | [place] [address] | | | SERVICES, CORE | PARK [...] [facility] | [address] | [place] [address] | | | SERVICES, CORE | PARK [...] | + + + + + | [facility] | [address] | [place] [address] | | | SERVICES, CORE | ROXANN [...] | + + + + + | [facility] | [address] | [place] [address] | | | SERVICES, CORE | ROXANN [...] (H) | 60 - 99 mg/dL | [facility] - | | | GLUCOSE, | [...] GONZALEZ | [address] | [place], [place] | | | SHAUNNA POINT OF CARE | [address] | [address] | | | TESTS | | | [...] MARQUAM | [address] | [place], [place] | | | HILL, POINT OF CARE | [address] | [address] | | | TESTS | | | [...] CARLOS | [address] | [place], [place] | | | KAILYN MAZA OF [facility] | [address] | [address] | | | TESTS | | | [...] | + + + + + | [facility] | [address] | [place] [address] | | | SERVICES, CORE | [address] | | | + + + + + MAGNESIUM, PLASMA (12/11/2012 12:11 PM PDT) + +-------+ + + + | Component | Value | Ref Range | Performed | Pathologist | | | | | At | Signature | + +-------+ + + + | MAGNESIUM,P | 2.2 | 1.8 - 2.5 mg/dL | [facility] | | | LASMA | | | [...] | + + + + + | [facility] | [address] [facility] | [place] [address] | | | SERVICES, CORE | ROXANN [...] | + + + + + | [facility] | [address] | [place] [address] | | | SERVICES, CORE | ROXANN [...] 98.5 (H) | 92.0 - 98.0 | [facility] | | | ARTERIAL | | | [...] | + + + + + | [facility] | [address] | [place] [address] | | | SERVICES, CORE | PARK [...] MAR[facility] | [address] | [place], [place] | | | SHAUNNA POINT OF CARE | [address] | [address] | | | TESTS | | | [...] | + + + + + | [facility] | [address] | [place] [address] | | | SERVICES, CORE | ROXANN [...] (H) | 60 - 99 mg/dL | [facility] - | | | GLUCOSE, | [...] GONZALEZ | [address] | [place], [place] | | | AKILYN MAZA OF [facility] | [address] | [address] | | | TESTS | | | [...] MARQUAM | [address] | [place], [place] | | | KAILYN MAZA OF JOHN | [facility] | [address] | | | TESTS | | | [...] for children less than 6 months | [facility] | | can be found in the Hemostasis Section general instructions of the | LABORATORY | | [facility] Lab Manual: | TOI MARIN | | [email or web address] | | + + + + + + + + | Performing | Address | City/State/Zipcode | Phone Number | | Organization | | | | + + + + + | [facility] | [address] | [place] [address] | | | TOI MARIN | ROXANN [...] Hemolyzed. Heparin, Either STD/LMW - Therapeutic | [facility] | | Ranges: Heparin, Unfractionated: 0.35 - 0.70 U/mL Enoxaparin, | LABORATORY | | LMWH: 0.70 - 1.20 U/mL Dalteparin, LMWH: 0.70 | TANIA, [facility] | | - 1.20 U/mL Tinzaparin, LMWH: [...] | + + + + + | [facility] | [address] | [place] [address] | | | SERVICES, CORE | PARK [...] | + + + + + | [facility] | [address] | [place] [address] | | | SERVICES, CORE | [address] | | | + + + + + MAGNESIUM, PLASMA (12/11/2012 6:00 AM PDT) + +-------+ + + + | Component | Value | Ref Range | Performed | Pathologist | | | | | At | Signature | + +-------+ + + + | MAGNESIUM,P | 2.4 | 1.8 - 2.5 mg/dL | [facility] | | | PITA | | | [...] | + + + + + | [facility] | [address] | [place] [address] | | | SERVICES, CORE | PARK [...] | + + + + + | [facility] | [address] | [place] [address] | | | SERVICES, CORE | [address] | | | + + + + + X-RAY PORTABLE CHEST 1 VIEW (12/11/2012 6:00 AM PDT) + + + + + + | Component | Value | Ref Range | Performed | Pathologist | | | | | At | Signature | + + + + + + | X-RAY | STUDY: HI CHEST 1 VIEW | | | | [...] | | + +---------+ + + | [facility] DEPARTMENT OF | | | | [...] MARQUAM | [address] | [place], [place] | | | KAILYN MAZA OF CARE | [facility] | [address] | | | TESTS | | | [...] MARQUAM | [address] | [place], [place] | | | KAILYN MAZA OF JOHN | [facility] | [address] | | | TESTS | | | [...] GONZALEZ | [address] | [place], [place] | | | KAILYN MAZA OF JOHN | [address] | [address] | | | TESTS | | | [...] [facility] | [address] | [place] [address] | | | SERVICES, CORE | PARK [...] [facility] | [address] | [place] [address] | | | SERVICES, CORE | PARK [...] [facility] | [address] | [place] [address] | | | SERVICES, CORE | [address]ARK [...] | + + + + + | [facility] | [address] | [place] [address] | | | TANIA, TOI | ROXANN [...] [facility] | [address] | [place] [address] | | | SERVICES, CORE | PARK [...] | + + + + + | [facility] | [address] | [place] [address] | | | SERVICES, CORE | ROXANN [...] (H) | 60 - 99 mg/dL | [facility] - | | | GLUCOSE, | [...] GONZALEZ | [address] | [place], [place] | | | KAILYN MAZA OF CARE | [address] | [address] | | | TESTS | | | [...] LUPEAM | [address] | [place], [place] | | | KAILYN MAZA OF CARE | [address] | [address] | | | TESTS | | | [...] | + + + + + | [facility] | [address] | [place] [address] | | | TOI MARIN | ROXANN [...] GONZALEZ | [address] | [place], [place] | | | KAILYN MAZA OF JOHN | [address] | [address] | | | TESTS | | | [...] GONZALEZ | [address] | [place], [place] | | | SHAUNNA POINT OF CARE | [address] | [address] | | | TESTS | | | [...] [facility] | [address] | [place] [address] | | | SERVICES, TOI | ROXANN [...] (H) | 60 - 99 mg/dL | [facility] - | | | GLUCOSE, | [...] CARLOS | [address] | [place], [place] | | | SHAUNNA POINT OF CARE | [address] | [address] | | | TESTS | | | [...] | + + + + + | [facility] | [address] | [place] [address] | | | SERVICES, CORE | [address] | | | + + + + + MAGNESIUM, PLASMA (12/10/2012 10:00 PM PDT) + +---------+ + + + | Component | Value | Ref Range | Performed | Pathologist | | | | | At | Signature | + +---------+ + + + | MAGNESIUM,P | 2.6 (H) | 1.8 - 2.5 mg/dL | [facility] | | | PITA | | | [...] | + + + + + | [facility] | [address] | [place] [address] | | | SERVICES, CORE | PARK [...] + + | [facility] | [address] | [place] [address] | | | SERVICES, CORE | PARK [...] MARQUAM | [address] | [place], [place] | | | [facility] CARE | [address] | [address] | | | TESTS | | | [...] - CARLOS | [address] | [place], [place] | | | [facility] [facility]INT OF CARE | [address] | [address] | | | TESTS | | | [...] | + + + + + | [facility] | [address] | [place] [address] | | | SERVICES, CORE | [address] | | | + + + + + MAGNESIUM, PLASMA (12/10/2012 8:00 PM PDT) + +---------+ + + + | Component | Value | Ref Range | Performed | Pathologist | | | | | At | Signature | + +---------+ + + + | MAGNESIUM,P | 2.7 (H) | 1.8 - 2.5 mg/dL | [facility] | | | LASMA | | | [...] | + + + + + | [facility] | [address] | [place] [address] | | | SERVICES, CORE | PARK [...] [facility] | [address] | [place] [address] | | | SERVICES, CORE | PARK [...] | + + + + + | [facility] | [address] | [place] [address] | | | SERVICES, CORE | ROX[address] [...] [facility] | [address] | [place] [address] | | | SERVICES, TOI | PARK [...] GONZALEZ | [address] | [place], [place] | | | [facility] | [address] | [address] | | | TESTS | | | | + + + + + X-RAY PORTABLE CHEST 1 VIEW (12/10/2012 5:27 PM PDT) + + + + + + | Component | Value | Ref Range | Performed | Pathologist | | | | | At | Signature | + + + + + + | X-RAY | STUDY:HI CHEST 1 VIEW | | | | [...] | + + + + + | [facility] | [address] | [place] [address] | | | SERVICES, CORE | [address] [...] MARKATHERINEAM | [address] | [place], [place] | | | [facility] CARE | [address] | [address] | | | TESTS | | | [...] Location (Unit/Room #) | | | 8 [facility] room 7 Diagnosis: [id number] Coronary artery disease Indications: | | | [...] blood return. A | | | 5 [place]ian Triple lumen Power PICC SOLO catheter was [...] PICC | | | Catheter Lot Number [id number]; There was good blood return from all [...] 12/10/2012Start Time: 1545Patient Location (Unit/Room #) 8 [facility] room 7Diagnosis: | | [id number] Coronary artery diseaseIndications: (Select all that apply) [...] non-pulsatile blood return. A 5 | | [place]uvian Triple lumen Power PICC SOLO catheter was placed using the modified Seldinger | | technique on the third attempt. At the time of insertion, vessel size was appropriate | | for the catheter size. PICC Catheter: A 55cm catheter was used for placement. The | | PICC catheter was trimmed 0cm, remaining catheter length 55 cm. PICC Catheter Lot | | Number [id number]; There was good blood return from all [...] + + + + | XRAY | STUDY:HI CHEST PICC LINE | | | | [...] [facility] | [address] | [place], [place] | | | KAILYN MAZA OF JOHN | [facility] | [address] | | | TESTS | | | [...] (H) | 60 - 99 mg/dL | [facility] - | | | GLUCOSE, | [...] LUPE[facility] | [address] | [place], [place] | | | [facility] POINT OF CARE | [address] | [address] | | | TESTS | | | [...] | + + + + + | [facility] | [address] | [place] [address] | | | TOI MARIN | PARK [...] MAR[facility] | [address] | [place], [place] | | | [facility] POINT OF CARE | [address] | [address] | | | TESTS | | | [...] | + + + + + | [facility] | [address] | [place] [address] | | | SERVICES, CORE | ROXANN [...] (H) | 60 - 99 mg/dL | [facility] - | | | GLUCOSE, | [...] GONZALEZ | [address] | [place], [place] | | | KALIYN MAZA OF CARE | [address] | [address] | | | TESTS | | | [...] MARQUAM | [address] | [place], [place] | | | KAILYN MAZA OF JOHN | [address] | [address] | | | TESTS | | | | + + + + + X-RAY PORTABLE CHEST 1 VIEW (12/10/2012 5:41 AM PDT) + + + + + + | Component | Value | Ref Range | Performed | Pathologist | | | | | At | Signature | + + + + + + | X-RAY | STUDY: HI CHEST 1 VIEW | | | | [...] [facility] | [address] | [place], [place] | | | [facility] | [address] | [address] | | | TESTS | | | [...] GONZALEZ | [address] | [place], [place] | | | SHAUNNA POINT OF CARE | [address] | [address] | | | TESTS | | | [...] MARKATHERINEAM | [address] | [place], [place] | | | SHAUNNA [facility] | [facility] | [address] | | | TESTS | | | [...] [facility] | [address] | [place] [address] | | | SERVICES, TOI | ROXANN [...] [facility] | [address] | [place] [address] | | | SERVICES, CORE | PARK [...] [facility] | [address] | [place] [address] | | | SERVICES, CORE | PARK [...] | + + + + + | [facility] | [address] [facility] | [place] [address] | | | SERVICES, CORE | ROXANN [...] | + + + + + | [facility] | [address] | [place] [address] | | | SERVICES, CORE | PARK [...] | + + + + + | [facility] | [address] | [place] [address] | | | TOI MARIN | ROXANN [...] (H) | 60 - 99 mg/dL | [facility] - | | | GLUCOSE, | [...] CARLOS | [address] | [place], [place] | | | SHAUNNA POINT OF CARE | [address] | [address] | | | TESTS | | | [...] | + + + + + | Liquid | [address] | [place] [address] | | | SERVICES, CORE | ROXANN [...] MARQUAM | [address] | [place], [place] | | | [facility] | [address] | [address] | | | TESTS | | | [...] MARQUAM | [address] | [place], [place] | | | SHAUNNA POINT OF CARE | [address] | [address] | | | TESTS | | | [...] GONZALEZ | [address] | [place], [place] | | | [facility] | [address] | [address] | | | TESTS | | | [...] MARQUAM | [address] | [place], [place] | | | [facility] CARE | [address] | [address] | | | TESTS | | | [...] MARQUAM | [address] | [place], [place] | | | [facility] | [address] | [address] | | | TESTS | | | [...] + + + | BRIDGETTE GONZALEZ | [address] | [place], [place] | | | SHAUNNA POINT OF CARE | [address] | [address] | | | TESTS | | | [...] | + + + + + | [facility] | [address] | [place] [address] | | | SERVICES, CORE | PARK [...] | + + + + + | [facility] | [address] | [place] [address] | | | TOI MARIN | ROXANN [...] for children less than 6 months | [facility] | | can be found in the Hemostasis Section general instructions of the | LABORATORY | | [facility] Lab Manual: | TOI MARIN | | [email or web address] | | + + + + + + + + | Performing | Address | City/State/Zipcode | Phone Number | | Organization | | | | + + + + + | [facility] | [address] | [place] [address] | | | SERVICES, CORE | PARK [...] | + + + + + | [facility] | [address] | [place] [address] | | | TOI MARIN | ROXANN [...] (H) | 60 - 99 mg/dL | [facility] - | | | GLUCOSE, | [...] GONZALEZ | [address] | [place], [place] | | | SHAUNNA POINT OF CARE | [address] | [address] | | | TESTS | | | [...] CARLOS | [address] | [place], [place] | | | [facility] | [address] | [address] | | | TESTS | | | [...] LUPEAM | [address] | [place], [place] | | | [facility] | [facility] | [address] | | | TESTS | | | [...] (H) | 60 - 99 mg/dL | [facility] - | | | GLUCOSE, | [...] GONZALEZ | [address] | [place], [place] | | | SHAUNNA POINT OF CARE | [address] | [address] | | | TESTS | | | [...] WARD | | | | | | ([id number]) on 12/11/2012 | | | | | | 8:39:29 AM | | | | + + + + + + + + | Specimen | + + | | + + + + + | Narrative | Performed At | + + + | Please click | [facility] | | on view image for the detailed interpretation from [employer] results. | CARDIOLOGY | + + + + + + + + | Performing | Address | City/State/Zipcode | Phone Number | | Organization | | | | + + + + + | [facility] | [address] | [place] | | | CARDIOLOGY | [address] | [address] | | + + + + + [...] GONZALEZ | [address] | [place], [place] | | | SHAUNNA POINT OF CARE | [address] | [address] | | | TESTS | | | [...] GONZALEZ | [address] | [place], [place] | | | [facility] | [address] | [address] | | | TESTS | | | [...] CARLOS | [address] | [place], [place] | | | [facility] | [facility] | [address] | | | TESTS | | | [...] (H) | 60 - 99 mg/dL | [facility] - | | | GLUCOSE, | [...] GONZALEZ | [address] | [place], [place] | | | SHAUNNA POINT OF CARE | [address] | [address] | | | TESTS | | | [...] CARLOS | [address] | [place], [place] | | | [facility] | [address] | [address] | | | TESTS | | | [...] CARLOS | [address] | [place], [place] | | | [facility] | [facility] | [address] | | | TESTS | | | [...] (H) | 60 - 99 mg/dL | [facility] - | | | GLUCOSE, | [...] GONZALEZ | [address] | [place], [place] | | | SHAUNNA POINT OF CARE | [address] | [address] | | | TESTS | | | | + + + + + X-RAY PORTABLE CHEST 1 VIEW (12/09/2012 5:59 AM PDT) + + + + + + | Component | Value | Ref Range | Performed | Pathologist | | | | | At | Signature | + + + + + + | X-RAY | Exam: HI CHEST 1 VIEW, | | | | [...] | | + +---------+ + + | [facility] DEPARTMENT OF | | | | [...] MARQUAM | [address] | [place], [place] | | | [facility] | [address] | [address] | | | TESTS | | | [...] GONZALEZ | [address] | [place], [place] | | | SHAUNNA POINT OF CARE | [address] | [address] | | | TESTS | | | [...] MARQUAM | [address] | [place], [place] | | | [facility] | [address] | [address] | | | TESTS | | | [...] - CARLOS | [address] | [place], [place] | | | SHAUNNA POINT OF CARE | [address] | [address] | | | TESTS | | | [...] | + + + + + | [facility] | [address] | [place] [address] | | | SERVICES, CORE | PARK [...] [facility] | [address] | [place] [address] | | | SERVICES, TOI | ROXANN [...] [facility] | [address] | [place] [address] | | | SERVICES, CORE | PARK [...] [facility] | [address] | [place] [address] | | | SERVICES, CORE | PARK [...] | + + + + + | [facility] | [address] | [place] [address] | | | SERVICES, CORE | ROXANN [...] | + + + + + | [facility] | [address] | [place] [address] | | | SERVICES, CORE | ROXANN [...] [facility] | [address] | [place] [address] | | | SERVICES, CORE | PARK [...] - MARQUAM | [address] | [place], [place] | | | SHAUNNA POINT OF CARE | [address] | [address] | | | TESTS | | | [...] + + + | BRIDGETTE GONZALEZ | [address] | [place], [place] | | | SHAUNNA POINT OF [facility] | [address] | [address] | | | TESTS | | | [...] | | + +---------+ + + | [facility] DEPARTMENT OF | | | | [...] MARQUAM | [address] | [place], [place] | | | SHAUNNA POINT OF CARE | [address] | [address] | | | TESTS | | | [...] MARQUAM | [address] | [place], [place] | | | [facility] | [facility] | [address] | | | TESTS | | | [...] GONZALEZ | [address] | [place], [place] | | | SHAUNNA POINT OF CARE | [address] | [address] | | | TESTS | | | | + + + + + X-RAY PORTABLE CHEST 1 VIEW (12/08/2012 7:41 PM PDT) + + + + + + | Component | Value | Ref Range | Performed | Pathologist | | | | | At | Signature | + + + + + + | X-RAY | STUDY:HI CHEST 1 VIEW | | | | | PORTABLE | 12/08/12 19:41:00 | | | | | CHEST 1 | COMPARISON:December 07, | | | | | VIEW | 12/08/12 INDICATION: | | | | | | Post mediastinal washout | | | | | | and is closer, left | | | | | | [facility] | | | | | | placement [...] [facility] | [address] | [place] [address] | | | TOI MARIN | ROXANN [...] + + | [facility] | [address] | [place] [address] | | | SERVICES, CORE | PARK [...] [facility] | [address] | [place] [address] | | | SERVICES, CORE | PARK [...] [facility] | [address] | [place] [address] | | | SERVICES, CORE | PARK [...] | + + + + + | Liquid | [address] | [place] [address] | | | SERVICES, CORE | ROXANN [...] MARQUAM | [address] | [place], [place] | | | [facility] | [address] | [address] | | | TESTS | | | [...] + | [facility] | [address] | [place] [address] | | | [facility] | | | | + + [...] + | [facility] | [address] | [place] [address] | | | [place] | | | | + + + [...] + | [facility] | [address] | [place] [address] | | | [facility] | | | | + + [...] + | [facility] | [address] | [place] [address] | | | [place] | | | | + + + [...] + | [facility] | [address] | [place] [address] | | | [place] | | | | + + + [...] + | [facility] | [address] | [place] [address] | | | [place] | | | [...] + | [facility] | [address] | [place] [address] | | | [place] | | | [...] + | [facility] | [address] | [place] [address] | | | [place] | | | | + + + [...] + | [facility] | [address] | [place] [address] | | | [facility] | | | | + + [...] [facility] | [address] | [place] [address] | | | SERVICES, | [address] [...] | + + + + + | [facility] | [address] | [place] [address] | | | SERVICES, | [address] [...] (H) | 60 - 99 mg/dL | [facility] - | | | GLUCOSE, | [...] GONZALEZ | [address] | [place], [place] | | | [facility] | [facility] | [address] | | | TESTS | | | [...] - MARQUAM | [address] | [place], [place] | | | SHAUNNA POINT OF [facility] | [facility] | [address] | | | TESTS | | | [...] | + + + + + | [facility] | [address] | [place] [address] | | | SERVICES, CORE | ROXANN [...] (H) | 60 - 99 mg/dL | [facility] - | | | GLUCOSE, | [...] GONZALEZ | [address] | [place], [place] | | | SHAUNNA POINT OF CARE | [address] | [address] | | | TESTS | | | [...] | + + + + + | Liquid | [address] | [place] [address] | | | SERVICES, CORE | PARK [...] MARQUAM | [address] | [place], [place] | | | [facility] | [address] | [address] | | | TESTS | | | | + + + + + X-RAY PORTABLE CHEST 1 VIEW (12/08/2012 5:49 AM PDT) + + + + + + | Component | Value | Ref Range | Performed | Pathologist | | | | | At | Signature | + + + + + + | X-RAY | HI CHEST 1 VIEW, | | | | [...] + + | Performing | Address | City/State/[facility] | Phone Number | | Organization | [...] CARLOS | [address] | [place], [place] | | | KAILYN MAZA OF [facility] | [address] | [address] | | | TESTS | | | [...] for children less than 6 months | [facility] | | can be found in the Hemostasis Section general instructions of the | LABORATORY | | [facility] Lab Manual: | SERVICES, CORE | | [email or web address] | | + + + + + + + + | Performing | Address | City/State/Zipcode | Phone Number | | Organization | | | | + + + + + | [facility] | [address] | [place] [address] | | | SERVICES, CORE | PARK [...] | + + + + + | [facility] | [address] | [place] [address] | | | SERVICES, CORE | PARK [...] MARQUAM | [address] | [place], [place] | | | [facility] | [address] | [address] | | | TESTS | | | [...] [facility] | [address] | [place] [address] | | | SERVICES, CORE | PARK [...] | + + + + + | [facility] | [address] | [place] [address] | | | TOI MARIN | ROXANN [...] [facility] | [address] | [place] [address] | | | SERVICES, CORE | PARK [...] (H) | 60 - 99 mg/dL | [facility] | | | PLASMA | | | [...] | + + + + + | [facility] | [address] | [place] [address] | | | SERVICES, CORE | ROXANN [...] | + + + + + | [facility] | [address] | [place] [address] | | | TANIA, TOI | PARK [...] LUPEAM | [address] | [place], [place] | | | [facility] OF CARE | [facility] | [address] | | | TESTS | | | [...] (H) | 60 - 99 mg/dL | [facility] - | | | GLUCOSE, | [...] LUPEAM | [address] | [place], [place] | | | [facility] CARE | [address] | [address] | | | TESTS | | | [...] GONZALEZ | [address] | [place], [place] | | | [facility] | [facility] | [address] | | | TESTS | | | [...] | + + + + + | [facility] | [address] | [place] [address] | | | TANIA, TOI | ROXANN [...] LUPEAM | [address] | [place], [place] | | | [facility] OF CARE | [facility] | [address] | | | TESTS | | | [...] GONZALEZ | [address] | [place], [place] | | | SHAUNNA POINT OF CARE | [address] | [address] | | | TESTS | | | [...] MARQUAM | [address] | [place], [place] | | | [facility] | [address] | [address] | | | TESTS | | | [...] CARLOS | [address] | [place], [place] | | | KAILYN MAZA OF [facility] | [address] | [address] | | | TESTS | | | [...] for children less than 6 months | [facility] | | can be found in the Hemostasis Section general instructions of the | LABORATORY | | [facility] Lab Manual: | SERVICES, CORE | | [email or web address] | | + + + + + + + + | Performing | Address | City/State/Zipcode | Phone Number | | Organization | | | | + + + + + | [facility] | [address] | [place] [address] | | | SERVICES, CORE | PARK [...] | + + + + + | [facility] | [address] | [place] [address] | | | SERVICES, CORE | PARK [...] | + + + + + | [facility] | [address] | [place] [address] | | | SERVICES, CORE | PARK [...] MARKATHERINEAM | [address] | [place], [place] | | | K[facility]YN MAZA OF CARE | [facility] | [address] | | | TESTS | | | [...] (H) | 60 - 99 mg/dL | [facility] - | | | GLUCOSE, | [...] DUNGQUAM | [address] | [place], [place] | | | SHAUNNA POINT OF CARE | [address] | [address] | | | TESTS | | | [...] GONZALEZ | [address] | [place], [place] | | | [facility] | [facility] | [address] | | | TESTS | | | [...] LUPEAM | [address] | [place], [place] | | | SHAUNNA POINT OF [facility] | [facility] | [address] | | | TESTS | | | [...] | + + + + + | [facility] | [address] | [place] [address] | | | SERVICES, CORE | ROXANN [...] (H) | 60 - 99 mg/dL | [facility] - | | | GLUCOSE, | [...] GONZALEZ | [address] | [place], [place] | | | KAILYN MAZA OF [facility] | [address] | [address] | | | TESTS | | | [...] MARQUAM | [address] | [place], [place] | | | K[facility]YN MAZA OF CARE | [address] | [address] | | | TESTS | | | [...] - CARLOS | [address] | [place], [place] | | | SHAUNNA POINT OF [facility] | [address] | [address] | | | TESTS | | | [...] | + + + + + | [facility] | [address] | [place] [address] | | | SERVICES, CORE | ROXANN [...] | + + + + + | [facility] | [address] | [place] [address] | | | TOI MARIN | ROXANN [...] for children less than 6 months | [facility] | | can be found in the Hemostasis Section general instructions of the | LABORATORY | | [facility] Lab Manual: | TANIA CORE | | [email or web address] | | + + + + + + + + | Performing | Address | City/State/[facility] | Phone Number | | Organization | | | | + + + + + | [facility] | [address] | [place] [address] | | | SERVICES, TOI | ROXANN [...] [facility] | [address] | [place] [address] | | | SERVICES, CORE | PARK [...] [facility] | [address] | [place] [address] | | | SERVICES, CORE | PARK [...] | + + + + + | [facility] | [address] | [place] [address] | | | SERVICES, CORE | ROXANN [...] (H) | 60 - 99 mg/dL | [facility] - | | | GLUCOSE, | [...] GONZALEZ | [address] | [place], [place] | | | KAILYN MAZA OF [facility] | [address] | [address] | | | TESTS | | | | + + + + + X-RAY PORTABLE CHEST 1 VIEW (12/07/2012 6:14 AM PDT) + + + + + + | Component | Value | Ref Range | Performed | Pathologist | | | | | At | Signature | + + + + + + | X-RAY | STUDY: HI CHEST 1 VIEW | | | | [...] | + + + + + | [facility] | [address] | [place] [address] | | | SERVICES, CORE | PARK [...] (H) | 60 - 99 mg/dL | [facility] - | | | GLUCOSE, | [...] GONZALEZ | [address] | [place], [place] | | | KAILYN MAZA OF CARE | [address] | [address] | | | TESTS | | | [...] [facility] | [address] | [place] [address] | | | SERVICES, CORE | PARK [...] [facility] | [address] | [place] [address] | | | SERVICES, CORE | PARK [...] | + + + + + | [facility] | [address] | [place] [address] | | | SERVICES, CORE | ROXANN [...] MARQUAM | [address] | [place], [place] | | | KAILYN MAZA OF CARE | [address] | [address] | | | TESTS | | | [...] CARLOS | [address] | [place], [place] | | | [place] POINT OF [facility] | [address] | [address] | | | TESTS | | | [...] | + + + + + | [facility] | [address] | [place] [address] | | | SERVICES, CORE | ROXANN [...] (H) | 60 - 99 mg/dL | [facility] - | | | GLUCOSE, | [...] GONZALEZ | [address] | [place], [place] | | | SHAUNNA POINT OF CARE | [address] | [address] | | | TESTS | | | [...] [facility] | [address] | [place] [address] | | | SERVICES, CORE | PARK [...] [facility] | [address] | [place] [address] | | | SERVICES, CORE | PARK [...] | + + + + + | [facility] | [address] | [place] [address] | | | SERVICES, CORE | ROXANN [...] - MARQUAM | [address] | [place], [place] | | | DRAYDEN POINT OF CARE | [address] | [address] | | | TESTS | | | [...] [facility] | [address] | [place] [address] | | | TANIA, TOI | ROXANN [...] (H) | 60 - 99 mg/dL | [facility] - | | | GLUCOSE, | [...] CARLOS | [address] | [place], [place] | | | KAILYN MAZA OF [facility] | [address] | [address] | | | TESTS | | | [...] [facility] | [address] | [place] [address] | | | SERVICES, CORE | PARK [...] [facility] | [address] | [place] [address] | | | SERVICES, CORE | PARK [...] [facility] | [address] | [place] [address] | | | TOI MARIN | ROXANN [...] [facility] | [address] | [place] [address] | | | SERVICES, CORE | PARK [...] | + + + + + | [facility] | [address] [facility] [facility] [address] | [place] [address] | | | TANIA, TOI | ROXANN [...] | + + + + + | [facility] | [address] [address] | [place] [address] | | | SERVICES, CORE | ROXANN [...] [facility] | [address] | [place] [address] | | | SERVICES, CORE | PARK [...] | + + + + + | [facility] | [address] | [place] [address] | | | SERVICES, CORE | PARK [...] DEPT OF | [address] | [place], [place] | | | CARDIOLOGY | [address] | [address] | | + + + + + [...] | + + + + + | [facility] | [address] | [place] [address] | | | SERVICES, TOI | [address] | | | + + + + + OPERATION RECORD (12/06/2012 2:42 PM PDT) + + | Transcriptions | + + | Helen Gee MD - 12/06/2012 7:20 AM PDT Date: 12/04/2012ttending | | Surgeon: Narendra Lunsford M.D.Relocation Director(s): Helen Alberts | | MARCIA Geereoperative Diagnosis(es):Postoperative [...] | | present for the procedure.Ladarius Vaughan M.D.[facility] / [id number] / | | [id number] / [id number] / T: 12/06/2012 | |placed a sternal [...] | | | |CJW / HS | |[id number] / [id number] / [id number] / | | | | | + [...] [facility] | [address] | [place] [address] | | | TOI MARIN | ROXANN [...] [facility] | [address] | [place] [address] | | | SERVICES, CORE | PARK [...] | + + + + + | [facility] | [address] | [place] [address] | | | SERVICES, CORE | ROXANN [...] [facility] | [address] | [place] [address] | | | SERVICES, TOI | ROXANN [...] | + + + + + | [facility] | [address] | [place] [address] | | | SERVICES, CORE | PARK [...] | | + +---------+ + + | [facility] DEPARTMENT OF | | | | [...] [facility] | [address] | [place] [address] | | | SERVICES, CORE | PARK [...] [facility] | [address] | [place] [address] | | | SERVICES, CORE | PARK [...] | + + + + + | [facility] | [address] | [place] [address] | | | SERVICES, CORE | ROXANN [...] [facility] | [address] | [place] [address] | | | SERVICES, CORE | PARK [...] [facility] | [address] | [place] [address] | | | SERVICES, CORE | PARK [...] [facility] | [address] | [place] [address] | | | SERVICES, CORE | PARK [...] | + + + + + | [facility] | [address] | [place] [address] | | | SERVICES, CORE | ROXANN [...] [facility] | [address] | [place], [place] | | | KAILYN MAZA OF JOHN | [address] | [address] | | | TESTS | | | [...] | + + + + + | [facility] | [address] | [place] [address] | | | SERVICES, CORE | PARK [...] | 97.0 | 92.0 - 98.0 | [facility] | | | ARTERIAL | | | [...] [facility] | [address] | [place] [address] | | | SERVICES, CORE | PARK [...] | | | | | HEIDI CASTILLO ([id number]) | | | | | | on 12/06/2012 3:35:00 PM | | | | + + + + + + + + | Specimen | + + | | + + + + + | Narrative | Performed At | + + + | Please click | [facility] | | on view image for the detailed interpretation from [employer] results. | CARDIOLOGY | + + + + + + + + | Performing | Address | City/State/Zipcode | Phone Number | | Organization | | | | + + + + + | [facility] | [address] | [place], [place] | | | CARDIOLOGY | [address] | [address] | | + + + + + [...] | + + + + + | [facility] | [address] | [place] [address] | | | SERVICES, CORE | PARK [...] | + + + + + | [facility] | [address] | [place] [address] | | | SERVICES, CORE | ROXANN [...] [facility] | [address] | [place] [address] | | | SERVICES, CORE | PARK [...] [facility] | [address] | [place] [address] | | | TOI MARIN | ROXANN [...] | + + + + + | [facility] | [address] | [place] [address] | | | SERVICES, CORE | ROXANN [...] (H) | 60 - 99 mg/dL | [facility] - | | | GLUCOSE, | [...] GON[facility] | [address] | [place], [place] | | | KAILYN MAZA OF CARE | [address] | [address] | | | TESTS | | | [...] [facility] | [address] | [place], [place] | | | KAILYN MAZA OF CARE | [address] | [address] | | | TESTS | | | [...] | + + + + + | [facility] | [address] | [place] [address] | | | TOI MARIN | ROXANN [...] | + + + + + | [facility] | [address] | [place] [address] | | | SERVICES, CORE | PARK [...] [facility] | [address] | [place] [address] | | | SERVICES, CORE | PARK [...] | + + + + + | [facility] | [address] | [place] [address] | | | SERVICES, CORE | PARK [...] | + + + + + | [facility] | [address] | [place] [address] | | | SERVICES, [facility] | [address] | | | + [...] | + + + + + | [facility] | [address] | [place] [address] | | | SERVICES, CORE | ROXANN [...] | + + + + + | [facility] | [address] | [place] [address] | | | SERVICES, CORE | ROXANN [...] [facility] | [address] | [place], [place] | | | KAILYN MZAA OF CARE | [address] | [address] | | | TESTS | | | [...] [facility] | [address] | [place] [address] | | | SERVICES, TOI | [address] [...] [facility] | [address] | [place] [address] | | | SERVICES, CORE | P[address] [...] [facility] | [address] | [place] [address] | | | SERVICES, CORE | PARK [...] | + + + + + | [facility] | [address] | [place] [address] | | | SERVICES, CORE | ROXANN [...] | + + + + + | [facility] | [address] | [place] [address] | | | SERVICES, CORE | ROXANN [...] GONZALEZ | [address] | [place], [place] | | | KAILYN MAZA OF JOHN | [facility] | [address] | | | TESTS | | | [...] MARQUAM | [address] | [place], [place] | | | KAILYN MAZA OF CARE | [facility] | [address] | | | TESTS | | | [...] (H) | 60 - 99 mg/dL | [facility] - | | | GLUCOSE, | [...] GONZALEZ | [address] | [place], [place] | | | SHAUNNA POINT OF CARE | [address] | [address] | | | TESTS | | | [...] | + + + + + | [facility] | [address] | [place] [address] | | | TANIA, [facility] | [address] | | | + [...] | + + + + + | [facility] | [address] | [place] [address] | | | SERVICES, CORE | ROXANN [...] | + + + + + | [facility] | [address] | [place] [address] | | | SERVICES, CORE | PARK [...] [facility] | [address] | [place], [place] | | | KAILYN MAZA OF CARE | [address] | [address] | | | TESTS | | | [...] | + + + + + | [facility] | [address] | [place] [address] | | | SERVICES, CORE | PARK [...] | + + + + + | [facility] | [address] | [place] [address] | | | SERVICES, CORE | [address] | | | + + + + + X-RAY PORTABLE CHEST 1 VIEW (12/05/2012 7:56 AM PDT) + + + + + + | Component | Value | Ref Range | Performed | Pathologist | | | | | At | Signature | + + + + + + | X-RAY | STUDY: HI CHEST 1 VIEW | | | | [...] GONZALEZ | [address] | [place], [place] | | | SHAUNNA POINT OF CARE | [address] | [address] | | | TESTS | | | [...] MARQUAM | [address] | [place], [place] | | | KAILYN MAZA OF CARE | [address] | [address] | | | TESTS | | | [...] LU[facility] | [address] | [place], [place] | | | KAILYN MAZA OF [facility] | [address] | [address] | | | TESTS | | | [...] [facility] | [address] | [place] [address] | | | SERVICES, CORE | PARK [...] | + + + + + | [facility] | [address] | [place] [address] | | | SERVICES, CORE | ROXANN [...] [facility] | [address] | [place] [address] | | | SERVICES, CORE | P[address] [...] [facility] | [address] | [place] [address] | | | SERVICES, CORE | PARK [...] | + + + + + | [facility] | [address] | [place] [address] | | | SERVICES, TOI | [address] [...] [facility] | [address] | [place] [address] | | | SERVICES, CORE | [address] [...] GONZALEZ | [address] | [place], [place] | | | KAILYN MAZA OF [facility] | [address] | [address] | | | TESTS | | | [...] view image for the detailed interpretation from [employer] results. | CARDIOLOGY | + + + + + + + + | Performing | Address | City/State/Zipcode | Phone Number | | Organization | | | | + + + + + | [facility] | [address] | [place], [place] | | | CARDIOLOGY | [address] | [address] | | + + + + + [...] | + + + + + | [facility] | [address] | [place] [address] | | | SERVICES, CORE | ROXANN [...] (H) | 60 - 99 mg/dL | [facility] - | | | GLUCOSE, | [...] | BRIDGETTE GONZALEZ | [address] | [place], [place] | | | KAILYN MAZA OF [facility] | [facility] | [address] | | | TESTS | | | [...] LUPE[facility] | [address] | [place], [place] | | | KAILYN MAZA OF JOHN | [address] | [address] | | | TESTS | | | [...] BRIDGETTE GONZALEZ | [address] | [place], [place] | | | SHA[place]NA [place] OF [facility] | [address] | [address] | | | TESTS | | | [...] | | + +---------+ + + | [facility] | | | | [...] [facility] | [address] | [place] [address] | | | SERVICES, CORE | PARK [...] | + + + + + | [facility] | [address] | [place] [address] | | | SERVICES, CORE | ROXANN [...] | | + +---------+ + + | [facility] | | | | [...] [facility] | [address] | [place], [place] | | | SHAUNNA POINT OF CARE | [facility] | [address] | | | TESTS | | | [...] | + + + + + | [facility] | [address] | [place] [address] | | | SERVICES, TOI | ROXANN [...] [facility] | [address] | [place] [address] | | | SERVICES, CORE | PARK [...] | + + + + + | [facility] | [address] | [place] [address] | | | TANIA, TOI | ROXANN [...] (H) | 60 - 99 mg/dL | [facility] - | | | GLUCOSE, | [...] LUPEAM | [address] | [place], [place] | | | SHAUNNA POINT OF CARE | [address] | [address] | | | TESTS | | | [...] | + + + + + | [facility] | [address] | [place] [address] | | | SERVICES, CORE | PARK [...] | | + +---------+ + + | [facility] | | | | [...] | + + + + + | [facility] | [address] | [place] [address] | | | SERVICES, CORE | ROXANN [...] [facility] | [address] | [place] [address] | | | SERVICES, CORE | [address] [...] | + + + + + | [facility] | [address] | [place] [address] | | | SERVICES, CORE | [address] [...] | + + + + + | [facility] | [address] | [place] [address] | | | SERVICES, CORE | ROXANN [...] | + + + + + | [facility] | [address] | [place] [address] | | | TOI MARIN | ROXANN [...] [facility] | [address] | [place] [address] | | | SERVICES, CORE | P[address] [...] | + + + + + | [facility] | [address] | [place] [address] | | | SERVICES, CORE | ROXANN [...] [facility] | [address] | [place] [address] | | | SERVICES, | [address] [...] [facility] | [address] | [place] [address] | | | SERVICES, | [address] [...] | + + + + + | [facility] | [address] | [place] [address] | | | SERVICES, CORE | ROXANN [...] + + + + | PRODUCT | [id number] | | [facility] | | | UNIT [...] + + + + | BLOOD | 09860 | | [facility] | | | PRODUCT [...] | + + + + + | [facility] | [address] | [place] [address] | | | PATHOLOGY | [address] [...] + + + + | PRODUCT | [id number] | | [facility] | | | UNIT [...] + + + + | BLOOD | 70501 | | [facility] | | | PRODUCT [...] DEPARTMENT OF | [address] | [place] [address] | | | PATHOLOGY | [address] [...] + + + + | PRODUCT | [id number] | | [facility] | | | UNIT [...] + + + + | BLOOD | 95873 | | [facility] | | | PRODUCT [...] DEPARTMENT OF | [address] | [place] [address] | | | PATHOLOGY | [address] [...] + + + + | PRODUCT | [id number] | | [facility] | | | UNIT [...] + + + + | BLOOD | 83500 | | [facility] | | | PRODUCT [...] | + + + + + | [facility] | [address] | [place] [address] | | | PATHOLOGY | [address] [...] + + + + | PRODUCT | [id number] | | [facility] | | | UNIT [...] + + + + | BLOOD | 30423 | | [facility] | | | PRODUCT [...] DEPARTMENT OF | [address] | [place], [place] [address] | | | PATHOLOGY | [address] [...] + + + + | PRODUCT | [id number] | | [facility] | | | UNIT [...] + + + + | BLOOD | 27969 | | [facility] | | | PRODUCT [...] | + + + + + | [facility] | [address] | [place] [address] | | | PATHOLOGY | [address] [...] + + + + | PRODUCT | [id number] | | [facility] | | | UNIT [...] + + + + | BLOOD | 67320 | | [facility] | | | PRODUCT [...] DEPARTMENT OF | [address] | [place] [address] | | | PATHOLOGY | [address] [...] + + + + | PRODUCT | [id number] | | [facility] | | | UNIT [...] + + + + | BLOOD | 70272 | | [facility] | | | PRODUCT [...] | + + + + + | [facility] | [address] | [place] [address] | | | PATHOLOGY | [address] [...] + + + + | PRODUCT | [id number] | | [facility] | | | UNIT [...] + + + + | BLOOD | 97096 | | [facility] | | | PRODUCT [...] DEPARTMENT OF | [address] | [place] [address] | | | PATHOLOGY | [address] [...] + + + + | PRODUCT | [id number] | | [facility] | | | UNIT [...] + + + + | BLOOD | 80626 | | [facility] | | | PRODUCT [...] | + + + + + | [facility] | [address] | [place] [address] | | | PATHOLOGY | [address] [...] + + + + | PRODUCT | [id number] | | [facility] | | | UNIT [...] + + + + | BLOOD | 60143 | | [facility] | | | PRODUCT [...] DEPARTMENT OF | [address] | [place] [address] | | | PATHOLOGY | [address] [...] + + + + | PRODUCT | [id number] | | [facility] | | | UNIT [...] + + + + | BLOOD | 24368 | | [facility] | | | PRODUCT [...] | + + + + + | [facility] | [address] | [place] [address] | | | PATHOLOGY | [address] [...] + + + + | PRODUCT | [id number] | | [facility] | | | UNIT [...] + + + + | BLOOD | 79041 | | [facility] | | | PRODUCT [...] DEPARTMENT OF | [address] | [place], [place] [address] | | | PATHOLOGY | [address] [...] + + + + | PRODUCT | [id number] | | [facility] | | | UNIT [...] + + + + | BLOOD | 74391 | | [facility] | | | PRODUCT [...] DEPARTMENT | [address] | [place] [address] | | | PATHOLOGY | [address] [...] [facility] | [address] | [place], [place] | | | THERAPY | [address] | [address] | | + + + + + [...] [facility] | [address] | [place], [place] | | | THERAPY | [address] | [address] | | + + + + + [...] [facility] | [address] | [place], [place] | | | THERAPY | [address] | [address] | | + + + + + [...] [facility] | [address] | [place], [place] | | | THERAPY | [address] | [address] | | + + + + + [...] [facility] | [address] | [place], [place] | | | THERAPY | [address] | [address] | | + + + + + [...] + + | [facility] | [address] | [place], [place] | | | THERAPY | [address] | [address] | | + + + + + [...] | + + + + + | [facility] | [address] | [place] [address] | | | SERVICES, CORE | [address] [...] | + + + + + | [facility] | [address] | [place] [address] | | | SERVICES, CORE | ROX[address] [...] | + + + + + | [facility] | [address] | [place] [address] | | | SERVICES, CORE | ROXANN [...] [facility] | [address] | [place] [address] | | | SERVICES, CORE | [address] [...] + + | [facility] | [address] [facility] | [place], [place] | | | THERAPY | [address] | [address] | | + + + + + [...] [facility] | [address] | [place], [place] | | | THERAPY | [address] | [address] | | + + + + + [...] [facility] | [address] | [place], [place] | | | THERAPY | [address] | [address] | | + + + + + [...] [facility] | [address] | [place], [place] | | | THERAPY | [address] | [address] | | + + + + + [...] [facility] | [address] | [place], [place] | | | THERAPY | [address] | [address] | | + + + + + [...] [facility] | [address] | [place], [place] | | | THERAPY | [address] | [address] | | + + + + + [...] + + | [facility] | [address] [facility] [address] | [place], [place] | | | SHAUNNA POINT OF CARE | [address] | [address] | | | TESTS | | | [...] | + + + + + | [facility] | [address] | [place] [address] | | | SERVICES, CORE | ROX[address] [...] | + + + + + | [facility] | [address] | [place] [address] | | | SERVICES, CORE | ROXANN [...] | + + + + + | [facility] | [address] | [place] [address] | | | SERVICES, CORE | [address] [...] [facility] | [address] | [place] [address] | | | SERVICES, CORE | [address] [...] | + + + + + | [facility] | [address] | [place] [address] | | | SERVICES, CORE | ROXANN [...] [facility] | [address] | [place], [place] | | | THERAPY | [address] | [address] | | + + + + + [...] [facility] | [address] | [place], [place] | | | THERAPY | [address] | [address] | | + + + + + [...] [facility] | [address] | [place], [place] | | | THERAPY | [address] | [address] | | + + + + + [...] [facility] | [address] | [place], [place] | | | THERAPY | [address] | [address] | | + + + + + [...] [facility] | [address] | [place], [place] | | | THERAPY | [address] | [address] | | + + + + + [...] | + + + + + | [facility] | [address] | [place], [place] | | | THERAPY | [address] | [address] | | + + + + + X-RAY PORTABLE CHEST 1 VIEW (12/04/2012 3:25 PM PDT) + + + + + + | Component | Value | Ref Range | Performed | Pathologist | | | | | At | Signature | + + + + + + | X-RAY | STUDY: HI CHEST 1 VIEW | | | | [...] [facility] | [address] | [place], [place] | | | THERAPY | [address] | [address] | | + + + + + [...] + + | [facility] | [address] [facility] | [place], [place] | | | THERAPY | [address] | [address] | | + + + + + [...] RESPIRATORY | [address] | [place], [place] | | | THERAPY | [address] | [address] | | + + + + + [...] [facility] | [address] | [place], [place] | | | THERAPY | [address] | [address] | | + + + + + [...] [facility] | [address] | [place], [place] | | | THERAPY | [address] | [address] | | + + + + + [...] + + | [facility] | [address] [facility] [address] | [place], [place] | | | THERAPY | [address] | [address] | | + + + + + [...] | + + + + + | [facility] | [address] | [place] [address] | | | SERVICES, [facility] | [address] | | | + + + + + X-RAY PORTABLE CHEST 1 VIEW (12/04/2012 9:58 AM PDT) + + + + + + | Component | Value | Ref Range | Performed | Pathologist | | | | | At | Signature | + + + + + + | X-RAY | EXAM: HI CHEST 1 VIEW | | | | [...] The | | | | | | Sidney-Jeremi catheterhas | | | | | | [...] [facility] | [address] | [place] [address] | | | SERVICES, CORE | [address]OX[address] [...] | + + + + + | [facility] | [address] | [place] [address] | | | SERVICES, CORE | ROXANN [...] [facility] | [address] | [place] [address] | | | SERVICES, CORE | [address] [...] [facility] | [address] | [place] [address] | | | SERVICES, CORE | [address] [...] [facility] | [address] | [place] [address] | | | SERVICES, CORE | [address] [...] | + + + + + | [facility] | [address] | [place] [address] | | | SERVICES, CORE | ROXANN [...] (H) | 60 - 99 mg/dL | [facility] - | | | GLUCOSE, | [...] + | BRIDGETTE GONZALE[facility] | [address] | [place], [place] | | | SHAUNNA POINT OF CARE | [address] | [address] | | | TESTS | | | [...] view image for the detailed interpretation from [employer] results. | CARDIOLOGY | + + + + + + + + | Performing | Address | City/State/Zipcode | Phone Number | | Organization | | | | + + + + + | [facility] | [address] [facility] [facility] | [place], [place] | | | CARDIOLOGY | [address] | [address] | | + + + + + [...] GONZALEZ | [address] | [place], [place] | | | KAILYN MAZA OF JOHN | [address] | [address] | | | TESTS | | | [...] | + + + + + | [facility] | [address] [facility] | [place] [address] | | | TANIA, TOI | [address]OX[address] [...] | + + + + + | [facility] | [address] | [place] [address] | | | SERVICESTOI | [address] [...] [facility] | [address] | [place], [place] | | | KAILYN MAZA OF CARE | [address] | [address] | | | TESTS | | | [...] [facility] | [address] | [place] [address] | | | SERVICES, CORE | [address] [...] [facility] | [address] | [place] [address] | | | SERVICES, TOI | [address]OX[address] [...] (H) | 60 - 99 mg/dL | [facility] - | | | GLUCOSE, | [...] CARLOS | [address] | [place], [place] | | | KAILYN MAZA OF [facility] | [address] | [address] | | | TESTS | | | [...] | + + + + + | [facility] | [address] | [place] [address] | | | SERVICES, CORE | [address] [...] | + + + + + | [facility] | [address] [facility] | [place] [address] | | | SERVICES, CORE | ROXANN [...] | + + + + + | [facility] | [address] | [place] [address] | | | SERVICES, CORE | ROXANN [...] | + + + + + | [facility] | [address] | [place] [address] | | | SERVICES, TOI | [address]OX[address] [...] [facility] | [address] | [place] [address] | | | SERVICES, CORE | [address] [...] CARLOS | [address] | [place], [place] | | | KAILYN MAZA OF [facility] | [address] | [address] | | | TESTS | | | [...] | + + + + + | [facility] | [address] | [place] [address] | | | SERVICES, CORE | ROXANN [...] (H) | 60 - 99 mg/dL | [facility] - | | | GLUCOSE, | [...] GONZALEZ | [address] | [place], [place] | | | SHAUNNA POINT OF CARE | [address] | [address] | | | TESTS | | | [...] [facility] | [address] | [place], [place] | | | KAILYN MAZA OF CARE | [address] | [address] | | | TESTS | | | [...] [facility] | [address] | [place], [place] | | | KAILYN MAZA OF JOHN | [address] | [address] | | | TESTS | | | [...] GONZALEZ | [address] | [place], [place] | | | SHAUNNA POINT OF CARE | [address] | [address] | | | TESTS | | | [...] | + + + + + | [facility] | [address] | [place] [address] | | | TANIA, TOI | ROXANN [...] | + + + + + | [facility] | [address] [facility] | [place] [address] | | | SERVICES, CORE | [address] [...] [facility] | [address] | [place] [address] | | | SERVICES, CORE | ROXANN [...] | + + + + + | [facility] | [address] | [place] [address] | | | SERVICES, TOI | ROXANN [...] | + + + + + | [facility] | [address] | [place] [address] | | | SERVICES, CORE | ROXANN [...] (H) | 60 - 99 mg/dL | [facility] - | | | GLUCOSE, | [...] GONZALEZ | [address] | [place], [place] | | | KAILYN MAZA OF JOHN | [address] | [address] | | | TESTS | | | [...] MARQUAM | [address] | [place], [place] | | | KAILYN MAZA OF CARE | [address] | [address] | | | TESTS | | | [...] | + + + + + | [facility] | [address] | [place] [address] | | | TOI MARIN | ROXANN [...] MARQUAM | [address] | [place], [place] | | | KAILYN MAZA OF JOHN | [facility] | [address] | | | TESTS | | | [...] GONZALEZ | [address] | [place], [place] | | | KAILYN MAZA OF CARE | [address] | [address] | | | TESTS | | | [...] MARQUAM | [address] | [place], [place] | | | HILL, POINT OF CARE | [address] | [address] | | | TESTS | | | [...] (H) | 60 - 99 mg/dL | [facility] - | | | GLUCOSE, | | [...] LUPEAM | [address] | [place], [place] | | | KAILYN MAZA OF CARE | [address] | [address] | | | TESTS | | | [...] | + + + + + | [facility] | [address] | [place] [address] | | | SERVICES, CORE | ROXANN [...] [facility] | [address] | [place] [address] | | | SERVICES, CORE | PARK [...] - MARQUAM | [address] | [place], [place] | | | SHAUNNA POINT OF CARE | [address] | [address] | | | TESTS | | | [...] GONZALEZ | [address] | [place], [place] | | | KAILYN MAZA OF CARE | [address] | [address] | | | TESTS | | | [...] MARQUAM | [address] | [place], [place] | | | SHAUNNA POINT OF CARE | [address] | [address] | | | TESTS | | | [...] - MARQUAM | [address] | [place], [place] | | | SHAUNNA POINT OF CARE | [address] | [address] | | | TESTS | | | [...] GONZALEZ | [address] | [place], [place] | | | KAILYN MAZA OF JOHN | [address] | [address] | | | TESTS | | | [...] GONZALEZ | [address] | [place], [place] | | | KAILYN MAZA OF JOHN | [facility] | [address] | | | TESTS | | | [...] MARQUAM | [address] | [place], [place] | | | SHAUNNA POINT OF CARE | [address] | [address] | | | TESTS | | | [...] [facility] | [address] | [place] [address] | | | SERVICES, CORE | PARK [...] | + + + + + | [facility] | [address] [facility] | [place] [address] | | | SERVICES, CORE | PARK [...] [facility] | [address] | [place] [address] | | | SERVICES, CORE | PARK [...] | + + + + + | [facility] | [address] | [place] [address] | | | SERVICES, TOI | PARK [...] + + | Performing | Address | City/State/[facility] | Phone Number | | Organization | | | | + + + + + | [facility] | [address] | [place] [address] | | | TANIA, CORE | PARK [...] MARQUAM | [address] | [place], [place] | | | SHAUNNA POINT OF CARE | [address] | [address] | | | TESTS | | | [...] GONZALEZ | [address] | [place], [place] | | | KAILYN MAZA OF CARE | [address] | [address] | | | TESTS | | | [...] MARQUAM | [address] | [place], [place] | | | KAILYN MAZA OF CARE | [address] | [address] | | | TESTS | | | [...] | + + + + + | [facility] | [address] | [place] [address] | | | SERVICES, CORE | ROXANN [...] [facility] | [address] | [place] [address] | | | SERVICES, CORE | PARK [...] | + + + + + | [facility] | [address] | [place] [address] | | | SERVICES, TOI | PARK [...] MARKATHERINEAM | [address] | [place], [place] | | | KAILYN MAZA OF JOHN | [facility] | [address] | | | TESTS | | | [...] (H) | 60 - 99 mg/dL | [facility] - | | | GLUCOSE, | [...] MARQUAM | [address] | [place], [place] | | | KAILYN MAZA OF CARE | [address] | [address] | | | TESTS | | | [...] GONZALEZ | [address] | [place], [place] | | | KAILYN MAZA OF JOHN | [facility] | [address] | | | TESTS | | | [...] MARKATHERINEAM | [address] | [place], [place] | | | KAILYN MAZA OF CARE | [facility] | [address] | | | TESTS | | | [...] (H) | 60 - 99 mg/dL | [facility] - | | | GLUCOSE, | [...] CARLOS | [address] | [place], [place] | | | SHAUNNA POINT OF CARE | [address] | [address] | | | TESTS | | | [...] GONZALEZ | [address] | [place], [place] | | | KAILYN MAZA OF JOHN | [facility] | [address] | | | TESTS | | | [...] - CARLOS | [address] | [place], [place] | | | SHAUNNA POINT OF CARE | [facility] | [address] | | | TESTS | | | [...] | + + + + + | [facility] | [address] | [place] [address] | | | SERVICES, CORE | PARK [...] | + + + + + | [facility] | [address] | [place] [address] | | | SERVICES, TOI | ROXANN [...] | + + + + + | [facility] | [address] | [place] [address] | | | TOI MARIN | ROXANN [...] (H) | 60 - 99 mg/dL | [facility] - | | | GLUCOSE, | [...] GONZALEZ | [address] | [place], [place] | | | KAILYN MAZA OF CARE | [address] | [address] | | | TESTS | | | | + + + + + X-RAY PORTABLE CHEST 1 VIEW (11/30/2012 11:23 AM PST) + + + + + + | Component | Value | Ref Range | Performed | Pathologist | | | | | At | Signature | + + + + + + | X-RAY | STUDY: HI CHEST 1 VIEW | | | | [...] GONZALEZ | [address] | [place], [place] | | | KAILYN MAZA OF CARE | [address] | [address] | | | TESTS | | | [...] + | [place] [facility] - | [address] | [place] [address] | | | [facility] | | | | + + [...] | + + + + + | [facility] | [address] | [place] [address] | | | SERVICES, TOI | ROXANN [...] | + + + + + | Liquid | [address] | [place] [address] | | | SERVICES, CORE | ROXANN [...] [facility] | [address] | [place] [address] | | | SERVICES, TOI | PARK [...] [facility] | [address] | [place] [address] | | | TANIA, TOI | ROXANN [...] | | | Final CULTURE | | [place] | | | | RESULT:No growth at [...] | + + + + + | [place] [facility] - | [address] | [place] [address] | | | [place] | | | [...] [facility] | [address] | [place] [address] | | | SERVICES, CORE | PARK [...] | + + + + + | Liquid | [address] | [place] [address] | | | SERVICES, CORE | ROXANN [...] [facility]QU[facility] | [address] | [place], [place] | | | KAILYN MAZA OF CARE | [address] | [address] | | | TESTS | | | [...] BRIDGETTE GONZALEZ | [address] | [place], [place] | | | [place] [facility] | [facility] | [address] | | | TESTS | | | [...] IJ | | | | | | Sidney-Jeremi catheter, | | | | | | [...] GONZALEZ | [address] | [place], [place] | | | KAILYN MAZA OF JOHN | [address] | [address] | | | TESTS | | | [...] | + + + + + | [facility] | [address] | [place] [address] | | | TOI MARIN | ROXANN [...] (H) | 60 - 99 mg/dL | [facility] - | | | GLUCOSE, | [...] CARLOS | [address] | [place], [place] | | | SHA[place]NA [place] OF [facility] | [address] | [address] | | | TESTS | | | [...] | + + + + + | [facility] | [address] | [place] [address] | | | SERVICES, CORE | ROXANN [...] (H) | 60 - 99 mg/dL | [facility] - | | | GLUCOSE, | [...] GONZALEZ | [address] | [place], [place] | | | KAILYN MAZA OF JOHN | [address] | [address] | | | TESTS | | | [...] MARQUAM | [address] | [place], [place] | | | KAILYN MAZA OF CARE | [address] | [address] | | | TESTS | | | [...] [facility] | [address] | [place] [address] | | | SERVICES, CORE | PARK [...] [facility] | [address] | [place] [address] | | | SERVICES, CORE | PARK [...] [facility] | [address] | [place] [address] | | | SERVICES, CORE | ROXANN [...] | + + + + + | [facility] | [address] | [place] [address] | | | SERVICES, CORE | ROXANN [...] MARQU[facility] | [address] | [place], [place] | | | KAILYN MAZA OF CARE | [address] | [address] | | | TESTS | | | [...] [facility] | [address] | [place] [address] | | | SERVICES, CORE | ROXANN [...] + + | [facility] | [address] [facility] | [place] [address] | | | SERVICES, CORE | PARK [...] | + + + + + | [facility] | [address] | [place] [address] | | | SERVICES, CORE | ROXANN [...] (H) | 60 - 99 mg/dL | [facility] | | | GLUCOSE, | | | [facility] | | | POC | | | KAILYN MAZA | | | | | | OF CARE | | | | | | TESTS | | + +---------+ + + + + + | Specimen | + + | | + + + + + + + | Performing | Address | City/State/[facility] | Phone Number | | Organization | | | | + + + + + | [facility] - CARLOS | [address] | [place], [place] | | | KAILYN MAZA OF JOHN | [facility] | [address] | | | TESTS | | | [...] CARLOS | [address] | [place], [place] | | | KAILYN MAZA OF [facility] | [facility] | [address] | | | TESTS | | | [...] view image for the detailed interpretation from [employer] results. | CARDIOLOGY | + + + + + + + + | Performing | Address | City/State/Zipcode | Phone Number | | Organization | | | | + + + + + | [facility] | [address] | [place], [place] | | | CARDIOLOGY | [address] | [address] | | + + + + + [...] + + + | Please click | [facility] | | on view image for the detailed interpretation from [employer] results. | CARDIOLOGY | + + + + + + + + | Performing | Address | City/State/Zipcode | Phone Number | | Organization | | | | + + + + + | [facility] | [address] [facility] | [place], [place] | | | CARDIOLOGY | [address] | [address] | | + + + + + [...] | + + + + + | [facility] | [address] | [place] [address] | | | SERVICES, CORE | ROXANN [...] - CARLOS | [address] | [place], [place] | | | KAILYN MAZA OF [facility] | [facility] | [address] | | | TESTS | | | [...] [facility] | [address] | [place] [address] | | | SERVICES, CORE | PARK [...] [facility] | [address] | [place] [address] | | | SERVICES, CORE | PARK [...] [facility] | [address] | [place] [address] | | | SERVICES, CORE | PARK [...] [facility] | [address] | [place] [address] | | | SERVICES, CORE | PARK [...] [facility] | [address] | [place] [address] | | | SERVICES, CORE | PARK [...] [facility] | [address] | [place] [address] | | | SERVICES, CORE | PARK [...] | + + + + + | [facility] | [address] | [place] [address] | | | SERVICES, CORE | ROXANN [...] [facility] | [address] | [place] [address] | | | TOI MARIN | ROXANN [...] [facility] | [address] | [place] [address] | | | SERVICES, CORE | PARK [...] [facility] | [address] | [place] [address] | | | TANIA, TOI | ROXANN [...] CARLOS | [address] | [place], [place] | | | KAILYN MAZA OF CARE | [facility] | [address] | | | TESTS | | | [...] (H) | 60 - 99 mg/dL | [facility] - | | | GLUCOSE, | [...] GONZALEZ | [address] | [place], [place] | | | KAILYN MAZA OF CARE | [facility] | [address] | | | TESTS | | | [...] CARLOS | [address] | [place], [place] | | | KAILYN MAZA OF JOHN | [address] | [address] | | | TESTS | | | [...] [facility] | [address] | [place] [address] | | | SERVICES, CORE | PARK [...] [facility] | [address] | [place] [address] | | | SERVICES, | [address] [...] [facility] | [address] | [place] [address] | | | SERVICES, [facility] | [address] | | | + [...] | + + + + + | [facility] | [address] | [place] [address] | | | SERVICES, CORE | ROXANN [...] MARQU[facility] | [address] | [place], [place] | | | KAILYN MAZA OF CARE | [address] | [address] | | | TESTS | | | [...] BRIDGETTE GONZALEZ | [address] | [place], [place] | | | [place]NA [place]INT OF [facility] | [address] | [address] | | | TESTS | | | [...] [facility] | [address] | [place] [address] | | | SERVICES, | [address] [...] [facility] | [address] | [place] [address] | | | SERVICES, | [address] [...] | + + + + + | [facility] | [address] | [place] [address] | | | SERVICES, CORE | PARK [...] + + + + | PRODUCT | [id number] | | [facility] | | | UNIT [...] + + + + | BLOOD | [address] | | [facility] | | | PRODUCT [...] | [address] | [place] [address] | | | PATHOLOGY | [address] [...] + + + + | PRODUCT | [id number] | | [facility] | | | UNIT [...] + + + + | BLOOD | 625[address] | | [facility] | | | PRODUCT [...] | + + + + + | [facility] | [address] | [place] [address] | | | PATHOLOGY | [address] [...] 96 | 60 - 99 mg/dL | [facility] - | | | GLUCOSE, | [...] GONZALEZ | [address] | [place], [place] | | | KIALYN MAZA OF CARE | [address] | [address] | | | TESTS | | | [...] | + + + + + | [facility] | [address] | [place] [address] | | | SERVICES, CORE | ROXANN [...] | + + + + + | [facility] | [address] [facility] | [place] [address] | | | TOI MARIN | ROXANN [...] | + + + + + | Liquid | [address] | [place] [address] | | | SERVICES, CORE | ROXANN [...] GONZALEZ | [address] | [place], [place] | | | KAILYN MAZA OF JOHN | [facility] | [address] | | | TESTS | | | [...] 0.0 | 0.0 - 0.1 K/cu | [facility] | | | | | mm [...] | + + + + + | [facility] | [address] | [place] [address] | | | SERVICES, CORE | PARK [...] [facility] | [address] | [place] [address] | | | SERVICES, CORE | ROXANN [...] [facility] | [address] | [place] [address] | | | TOI MARIN | ROXANN [...] [facility] | [address] | [place] [address] | | | TOI MARIN | ROXANN [...] | | If you are | | [facility] | | | | screening for diabetes: [...] + | [facility] | [address] | [place] [address] | | | [place] | | | | + + + [...] of unspecified type of | | vessel, [place] or graft | + + documented in [...] | | | | last modification) on [facility] 11/30/12 | | | | | [...] | | | | | | Until [facility] 11/30/12 at 0427 | | | [...] PST | | | | | Starting [facility] 11/29/12 at 2109, | | | | | | | Until [facility] 11/30/12 at 0531, | | | [...] PST | | | | | dose, [facility] 11/30/12 at 2330 | | | [...] PDT | | | | | dose, [facility] 12/11/12 at 1130 | | | | [...] | | | (after last modification) on [facility] | | AM PDT | | [...] | | | | | CONTINUOUS, Starting [facility] 12/10/12 | | AM PDT | | [...] | | | | First dose on [facility] 12/07/12 at | | AM PDT [...] | | | | | 1 dose, [facility] 12/10/12 at 1515 | | | | [...] | | | | | modification) on [facility] 12/14/12 at | | | | [...] | | | | | | Starting [facility] 12/07/12 at 1345, | | | | | | | Until [facility] 12/07/12 at 2 | | | [...] | | | | | NEEDED, Starting [facility] 11/30/12 at | | | | [...] | | WITH MEALS, First dose on [facility] | | | | | | [...] | | | | | 1 dose, [facility] 11/30/12 at 1145 | | AM PST | | | | + +---------+ + +--------+---+ +---+---+ | | | +---+---+ + +---------+ + +--------+---+ | lactated ringers IV bolus 1,000 | New Bag | 12/01/19 | 1,000 mL | mL/hr | | | mL 1,000 mL, intravenous, ONCE, | | 13 3:57 | | | | | 1 dose, [facility] 11/30/12 at 1630 | | PM [...] | | | | | 1 dose, [facility] 12/06/12 at 1515 | | PM PDT | | | | + +---------+ + +--------+---+ +---+---+ | | | +---+---+ + +---------+ +--------+--------+---+ | lactated ringers IV bolus 500 | New Bag | 12/01/19 | 500 mL | mL/hr | | | mL 500 mL, intravenous, ONCE, 1 | | 13 10:06 | | | | | dose, [facility] 11/30/12 at 1045 | | AM [...] | | | | | CONTINUOUS, Starting [facility] 11/30/12 | | | | | [...] | | | | | 2109, Until [facility] 3/7/13 at 0312, | | | [...] | | +---+---+ + +-------+ +-------+---+---+ | dyxngfkpfjuf-mcsn-faudrorg (aka | Given | 12/12/19 | 15 [...] | | +---+---+ + +-------+ +-------+---+---+ | wbusgtsavbts-qigl-sqokbqia (aka | Given | 12/13/19 | 15 [...] | | +---+---+ + +-------+ +-------+---+---+ | gbmzffhxpzof-mupj-wvmjbglo (aka | Given | 12/21/19 | 15 [...] | | | | | modification) on [facility] 12/21/12 at | | | | [...] | | | | ONCE, 1 dose, [facility] 11/27/12 at 1130 | | | | [...] | | | | ONCE, 1 dose, [facility] 11/30/12 at 1115 | | | [...] | | | | | dose on [facility] 11/30/12 at 0900, | | | [...] | | | | | dose on [facility] 11/30/12 at 1500, | | | [...] | | | (after last modification) on [facility] | | PM PDT | | | [...] | | | (after last modification) on [facility] | | AM PDT | | [...] | | | | ONCE, 1 dose, [facility] 11/30/12 at 1700 | | PM [...]
--- OUTSIDE RECORDS SUMMARY | ~2019-09-13 | XMS | Encounter Summary ---
Demographics + + + | Address | [address] | | | [place] [address] | + + + | Home Phone | | + + + | Preferred Language | Unknown | + + + | Marital Status | Single | + + + | Mu-Ism Affiliation | CHR | + + + | Race | White | + + + | Ethnic Group | Not or | + + + Author + + + | Author | [facility] | + + + | Organization | [facility] | + + + | Address | Unknown | + + + | Phone | Unavailable | + + + Support + + + + + | Name | Relationship | Address | Phone | + + + + + | Joanne Zhang | [place] | [address] | | | | | [place] | | | | | [address] | | + + + + + | Linh Henderson | ECON | Unknown | | + + + + + Care Team Providers + +------+ + | Care Interior Design Instructor Name | Role | Phone | + +------+ + | No Pcp Per Patient | PCP | Unavailable | + +------+ + Encounter Details +--------+ + + + + | Date | Type | Department | Care Team | Description | +--------+ + + + + | 10/03/ | Senior Telecommunications Engineer | [facility] | Ti Vallecillo | | | 2012 | | at [facility] | MD Melissa,MPH | | | | | [address] | | | | | | [address] Mailcode: [address] | | | | | | Physician's | | | | | | [place], | | | | | | [place] [address] | | | | | | [phone] | | | +--------+ + + + [...]
--- OUTSIDE RECORDS SUMMARY | ~2019-09-13 | XMS | Encounter Summary ---
Demographics + + + | Address | [address] | | | [place] [address] | + + + | Home Phone | | + + + | Preferred Language | Unknown | + + + | Marital Status | Single | + + + | Confucianism Affiliation | CHR | + + + [...] [place] | | | | | [address] | | + + + + + | Linh Pate | ECON | Unknown | | + + + + + Care Team Providers + +------+ + | Care Online Services Manager Name | Role | Phone | + +------+ + | Erick Bernstein DO | PCP | | + +------+ + Encounter Details +--------+ + + + + | Date | Type | Department | Care Team | Description | +--------+ + + + + | 11/30/ | Results | LAB REFERRED TESTS | Other, Faculty | | | 2012 | Only | [address] [facility] | [phone] | | | | | [address] | | | | | | [place], [place] | | | | | | [address] | | | +--------+ + + + [...] | | CARDIOLOGY | [address] | [address] | | + + + + + documented in this encounter Visit Diagnoses Not on filedocumented in this encounter"
--- OUTSIDE RECORDS SUMMARY | ~2019-09-13 | XMS | Encounter Summary ---
Demographics + + + | Address | [address] | | | [place] [address] | + + + | Home Phone | | + + + | Preferred Language | Unknown | + + + | Marital Status | Single | + + + | Faith Affiliation | CHR | + + + [...] [place] | | | | | [id number] | | + + + + + | Linh Pate | ECON | Unknown | | + + + + + Care Team Providers + +------+ + | Care Director Of Product Management Name | Role | Phone | + [...] X 3 | | | | Rd [facility] | | | | | | Hospital Admitting | | | | | | Desk Located on the | | | | | | 9th floor | | | | | | [place], [place] | | | | | | [phone] | | | +--------+---------+ + + + [...] Course: Mr. Josef Ramos was admitted to [facility] on 11/26/2012 for heparin bridge for [...] Erick Bernstein DO - on d/c from Cardiology - Kyle Chavez MD - 4-6 weeks Disposition: Condition: fair Discharging Physician: Electronically signed by: Kathy WINSTON, PAJtC Department of Surgery | Division of Cardiothoracic Surgery Attending Physician: Narendra Lunsford MD OPERATIVE NOTE Date: 11/29/2012 Attending Surgeon: NARENDRA LUNSFORD MD Head Of Sales And Marketing(s): Kathy Castro PA-C No residents of the [...] present during the team pause: Surgeon, assistant chief nursing officer, nursing, anesthesia, perfusion. Findings at Surgery: The [...] care unit. Narendra Lunsford MD, FACS, FACC Pilot Control Operator Helper, Department of Surgery Head, Adult Cardiac Surgery Co-Director, Multidisciplinary Heart Valve Clinic [facility] [place] | [email or web address] documented in this encounter Medications at Time [...] Intake/Output Summary (Last 24 hours) at 12/21/12 8604 Last data filed at 12/21/12 1400 Gross [...] 1 hour (Electronically Signed) Joseph Lewis PA-C [facility] Cardiac Surgery athy Castro PA - [...] outpatient follow up. MD MEHDI Moses MD [facility] [address]uhs8[place] [address] [facility] DE[facility]MENT: [id number] NE[facility] Place of Service: - CSN: [id number] Suggested Modifier: GC Resident Involved rotain, Josse Black MD - 12/20/2012 7:30 AM PDT Nephrology Consult Progress Note IDENTIFICATION: PATIENT NAME: Josef Ramos : 1945 DATE OF ADMISSION: 11/26/2012 DATE OF SERVICE: 12/20/2012 HOSPITAL DAY: 24 PCP: Erick Bernstein DO CHIEF COMPLAINT: f/u KOURTNEY IMPRESSION & RECOMMENDATIONS: oJsef Ramos is a 67 y.o. Man s/p [...] plan. Josse Rojas MD Nephrology Fellow Pager [phone] SUBJECTIVE & INTERVAL EVENTS: No significant overnight [...] injection 7 Units 7 Units Subcutaneous Q8H dvgmfsnqydxe-euzh-uihmfxas (aka CEROVITE) liquid 15 mL 15 mL [...] plan of care. 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 Hypernatremia- Mild, likely due to impaired access [...] plan. Josse Rojas MD Nephrology Fellow Pager [phone] SUBJECTIVE & INTERVAL EVENTS: No significant overnight [...] injection 7 Units 7 Units Subcutaneous Q8H edsnjsjjuqoq-sllf-mqikhpsy (aka CEROVITE) liquid 15 mL 15 mL [...] JOHNNY RASCON PA-C Division of Cardiothoracic Surgery [facility] Mail Code L353 [address] [phone] Mehdi Earl M D - 12/18/2012 8:04 AM PDTI performed a history and physical examination of the patient and discussed his management with the resident. I reviewed the resident s note and agree wit h the documented findings and plan of care. MD MEHDI Moses MD [place] [id number] [address] [facility]: [id number] Place of Service: CSN: [id number] Suggested Modifier: GC Resident Involved Josse Mcgowan [...] plan. Josse Rojas MD Nephrology Fellow Pager [phone] SUBJECTIVE & INTERVAL EVENTS: No significant overnight [...] injection 7 Units 7 Units Subcutaneous Q8H pcvnbzdkupnl-clys-iqijnujx (aka CEROVITE) liquid 15 mL 15 mL [...] CALAZIME) topical paste, , Topical, QID PRN jzhnflbufzig-fdno-qchoqcmt (aka CEROVITE) liquid 15 mL, 15 mL, [...] Intake/Output Summary (Last 24 hours) at 12/17/12 0923 Last data filed at 12/17/12 0610 Gross [...] to set up outpatient HD/tunneled HD line [facility] DE[facility]MENT: [id number] Place of Service: - CSN: [id number] Suggested Modifier: None Sidney Olson MD - [...] CALAZIME) topical paste, , Topical, QID PRN rfuyznjhkmvh-cpmm-edgelbav (aka CEROVITE) liquid 15 mL, 15 mL, [...] may need to set up outpatient HD [facility]: [id number] Place of Service: [id number] - CSN: [id number] Suggested Modifier: None Johnny Morataya PA- C [...] JOHNNY RASCON PA-C Division of Cardiothoracic Surgery [facility] [place] Mail Code L353 [address] [phone] Veronika Bolaños MD - 12/15/2012 1:06 PM PDT [facility] DAILY PROGRESS NOTE (Resident) Team Pager: [phone] Attendin Author: Veronika Palacios MD Date:12/15/2012 Attending Curator Of Education: Operating Surgeon: MD Narendra Ellison MD POD [...] - 12/15/2012 9:02 AM PDT [facility] ATTENDING EMERGENCY ROOM PHYSICIAN PROGRESS NOTE Team Pager: [phone] Attendin I saw and examined the patient [...] Department of Anesthesiology and Ольга-Operative Medicine [address] [facility] [place] [address] [facility] DEPARTMENT: [facility] ICU CARDIAC [[id number]] Place of Service:- Inpatient Date of Service: 12/15/2012 CSN: [id number] Suggested Modifier: GC - Resident Involved Suggested CPT: TO SEAFOOD PROCESS WORKER 9: 10 AM Veronika Bolaños MD - 12/14/2012 12:42 PM PDTFormatting of this note might be differ ent from the original. [facility] DAILY PROGRESS NOTE (Resident) Team Pager: [phone] Attendin Author: Veronika Palacios MD Date:12/14/2012 Attending Curator Of Education: Operating Surgeon: MD Narendra Ellison MD POD [...] - 12/14/2012 8:13 AM PDT [facility] ATTENDING EMERGENCY ROOM PHYSICIAN DAILY PROGRESS NOTE Team Pager: [phone] Attendin Date:12/14/2012 Author: HEIDI NIETO MD Attestation: [...] is currently criti ryan ill. [facility] DEPARTMENT: [facility] ICU CARDIAC [[id number]] Place of Service:- Inpatient Date of Service: 12/14/2012 CSN: [id number] Suggested Modifier: GC - Resident Involved Suggested CPT: TO SEAFOOD PROCESS WORKER Respiratory: Recent Labs Basename 12/12/12 0819 12/12/12 [...] (aka CALAZIME) topical paste Topical QID PRN uvztngkwiplr-cioq-kapoykkx (aka CEROVITE) liquid 15 mL 15 mL [...] be different from the db PRESSLEY ATTENDING EMERGENCY ROOM PHYSICIAN PROGRESS NOTE Team Pager: [phone] Attendin TTE performed this AM discussed with [...] Department of Anesthesiology and Ольга-Operative Medicine [address] [place] [address] [facility] DE[facility]MENT: [facility] ICU CARDIAC [[id number]] Place of Service:- Inpatient Date of Service: 12/13/2012 CSN: [id number] Suggested Modifier: None Suggested CPT: TO SEAFOOD PROCESS WORKER 3: 12 PM BRIDGERSalVeronika eubanks MD - 12/13/2012 9:07 AM PDTFormatting of this note might be differ ent from the original. [facility] DAILY PROGRESS NOTE (Resident) Team Pager: [phone] Attendin Author: Veronika Palacios MD Date:12/13/2012 Attending Curator Of Education: Operating Surgeon: MD Narendra Ellison MD POD [...] closure 12/10/12 - Dialysis catheter place in [facility]; CRRT initiated for acute kidney [...] MD - 7:41 AM PDT [facility] ATTENDING EMERGENCY ROOM PHYSICIAN DAILY PROGRESS NOTE Team Pager: [phone] Attendin Date:12/13/2012 Author: HEIDI NIETO MD Attestation: [...] patient who is currently criti ryan ill. [facility] DEPARTMENT: [facility] ICU CARDIAC [[id number]] Place of Service:[address]672- Inpatient Date of Service: 12/13/2012 CSN: [id number] Suggested Modifier: GC - Resident Involved Suggested CPT: TO SEAFOOD PROCESS WORKER Respiratory: Recent Labs Basename 12/12/12 0819 12/12/12 0400 FIO2 .4 .40 PH 7.48* 7.46* PCO2 36 38 PO2 112* 113* HCO3 26 27 ABGEXCESS 3.2 3.0 Renal: Intake/Output Summary (Last 24 hours) at 12/13/12 0741 Last data filed at 12/13/12 0600 Gross per 24 hour Intake 06934.7 ml Output 54327 ml Net 152.7 ml ID: Temp (24hrs), [...] - 12/12/2012 11:07 PM PDT [facility] ATTENDING EMERGENCY ROOM PHYSICIAN NIGHT PROGRESS NOTE Team Pager: [phone] Attendin Events of the day, patient condition, [...] patient who is critically ill (Josef Abel [facility] [id number] ) Oriana Ram MD Core Extruder Department of Anesthesiology and Ольга-Operative Medicine Critical Care [facility] DEPARTMENT: [facility] ICU CARDIAC [[id number]] Place of Service:- Inpatient Date of Service: 12/12/2012 CSN: [id number] Suggested Modifier: Suggested CPT: TO SEAFOOD PROCESS WORKER Data below used in this assessment: Hemodynamics: [...] 12/12/12 2200 Gross per 24 hour Intake 59233.4 ml Output 89993 ml Net -166.6 ml Recent Labs Basename [...] [facility] DAILY PROGRESS NOTE (Resident) Team Pager: [phone] Attendin Author: Veronika Palacios MD Date:12/12/2012 Attending Curator Of Education: Operating Surgeon: MD Narendra Ellison MD POD [...] - 12/12/2012 8:05 AM PDT [facility] ATTENDING EMERGENCY ROOM PHYSICIAN DAILY PROGRESS NOTE Team Pager: [phone] Attendin Date:12/12/2012 Author: HEIDI NIETO MD Attestation: [...] patient who is currently criti ryan ill. [facility] DEPARTMENT: [facility] ICU CARDIAC [[id number]] Place of Service:- Inpatient Date of Service: 12/12/2012 CSN: [id number] Suggested Modifier: GC - Resident Involved Suggested CPT: TO SEAFOOD PROCESS WORKER Hemodynamics: Hemodynamic Drips: Arterial BP Mean: 76 [...] 12/12/12 0700 Gross per 24 hour Intake 67347.16 ml Output 86430 ml Net -382.84 ml ID: Temp (24hrs), [...] (aka CALAZIME) topical paste Topical QID PRN vfhpgskntmcw-klum-jpirgbuo (aka CEROVITE) liquid 15 mL 15 mL [...] - 12/11/2012 11:21 PM PDT [facility] ATTENDING EMERGENCY ROOM PHYSICIAN NIGHT PROGRESS NOTE Team Pager: [phone] Attendin Events of the day, patient condition, [...] patient who is critically ill (Josef Roman [facility] [id number] ) Oriana Ram MD Core Extruder Department of Anesthesiology and Ольга-Operative Medicine Critical Care [facility] DEPARTMENT: [facility] ICU CARDIAC [[id number]] Place of Service:58[address]- Inpatient Date of Service: 12/11/2012 [facility]: [id number] Suggested Modifier: Suggested CPT: TO SEAFOOD PROCESS WORKER Data below used in this assessment: Hemodynamics: [...] at 12/11/122199 Gross per 24 hour Intake 80811.36 ml Output 27747 ml Net -761.64 ml Recent Labs Basename [...] (aka CALAZIME) topical paste Topical QID PRN skkgoykrcroy-cift-uufgylqt (aka CEROVITE) liquid 15 mL 15 mL [...] - 12/11 9:15 AM PDT [facility] ATTENDING EMERGENCY ROOM PHYSICIAN DAILY PROGRESS NOTE Team Pager: [phone] Attending Pager: [phone] Author: MARCY SIFUENTES DO ATTESTATION: I saw [...] who is critically ill. Marcy Sifuentes DO Core Extruder Department of Anesthesiology and Perioperative Medicine [facility] DEPARTMENT: [facility] ICU CARDIAC [[id number]] Place of Service:- Inpatient Date of Service: 12/11/2012 CSN: [id number] Suggested Modifier: GC - Resident Involved Suggested CPT: TO SEAFOOD PROCESS WORKER Precious Ramires MD - 5:58 AM PDT [facility] DAILY PROGRESS NOTE (Resident) Team Pager: [phone] Attendin Author: PRECIOUS ALVARADO MD Date:12/11/2012 Attending Curator Of Education: Operating Surgeon: MD Narendra Figueroa MD POD [...] im plementation of plans. JOHNNY MERAZ PA-C [facility] DEPARTMENT: [facility] ICU CARDIAC [[id number]] Place of Service:- Inpatient Date of Service: 12/11/2012 CSN: [id number] Suggested Modifier: None Suggested CPT: TO SEAFOOD PROCESS WORKER Mack Malagon MD - 12/10/2012 2:15 PM PDT [facility] DEPARTMENT: [facility]- [id number] Place of Service: - Date of Service: 12/10/2012 CSN: [id number] Modifiers:GC Resident Involved: yes Suggested CPT: 01144 Critical Care, Initial 30-74 minutes 36 minutes [...] Value Range Status 12/10/2012 Final Value: STUDY: AL CHEST 1 VIEW 12/10/12 05:41:00 HISTORY: Evaluate [...] don't want to correct too quickly/ over-correct. [facility] DE[facility]MENT: [id number] [facility] NEPHROLOGY [facility] Place of Service: - IP CSN: [id number] Suggested Modifier: GC Resident Involved abib, Kenia [...] topical paste Topical QID PRN SARANYA Young kpwseqboxprf-zkle-rdjswjlj (aka CEROVITE) liquid 15 mL 15 mL [...] [facility] DAILY PROGRESS NOTE (Resident) Team Pager: [phone] Attendin Author: PRECIOUS ALVARADO MD Date:12/10/2012 Attending Curator Of Education: Operating Surgeon: MD Narendra Green MD POD [...] fernandez agree with her findings and plan. [facility]: [id number] [facility] Place of Service: CSN: [id number] Suggested Modifier: GC Resident Involved enia Parish [...] 10 mg 10 mg Rectal BID PRN SARAYNA Young calcium chloride IV 1 g 1 [...] topical paste Topical QID PRN SARANYA Young mailfkyfgaio-qlgw-xjqxpzah (aka CEROVITE) liquid 15 mL 15 mL [...] 4 mg 4 mg Intravenous Q12H PRN SAARNYA Young 4 mg at 11/30/12 0254 piperacillin-tazobactam [...] [facility] DAILY PROGRESS NOTE (fellow) Team Pager: [phone] Attendin Author: Veronika Palacios MD Date:12/09/2012 Attending Curator Of Education: Operating Surgeon: MD Narendra Snyder MD POD [...] different from the or iginal. [facility] ATTENDING EMERGENCY ROOM PHYSICIAN DAILY PROGRESS NOTE Team Pager: [phone] Attending Pager: [phone] Author: ELMIRA SALGUERO MD ATTESTATION: I saw and evaluated the patient at the bedside together with Dr. Palacios. Please see their note for a detailed rounding summary. I reviewed the documented findings, relevant data, and recent imaging available. I agree with the assessment and plan as described in [facility] resident's note with the following exceptions/additions as noted below. HPI: 67 yo man with hx of CAD s/p 3V CABG (DE [place] ROSA --> LAD, SVG --> OM, PDA) on 11/29/12, development al delay, morbid obesity, VT, LV thrombus, HTN, and CKD (baseline Cr ~1.5) who returned to [facility]ness [...] who is critically ill. Elmira Salguero MD Core Extrudersterile instrument technician Pulmonary and Critical Care Medicine [facility] DEPARTMENT: [facility] [id number] Place of Service: - Date of Service: 12/09/2012 CSN: [id number] Modifiers: Resident Involved: yes Suggested CPT: 73389 Critical Care, Initial 30-74 minutes Mack Malagon MD - 11/24 8:08 PM PDT [facility] DEPARTMENT: [facility]- [id number] Place of Service: - Date of Service: 12/08/2012 CSN: [id number] Modifiers: Resident Involved: yes Suggested CPT: 94071 Critical Care, Initial 30-74 minutes 42 minutes total time spent in Critical care independent of procedures. My impression, recent events and assesment are at the top of this note. Today's data which were reviewed are listed below the A&P I saw and examined JOSEF RAMOS with the [facility] housestaff. I agree with the written [...] Date Value Range Status 12/08/2012 Final Value: AL CHEST 1 VIEW, 12/08/12 05:49:00 COMPARISON: 12/07/12 [...] closed Dispo: Critical, stable to SICU Dictation: [id number] HELEN GEE MD Cardiothoracic Surgery Fellow Elmira Rutherford MD - 12/08/2012 7:32 AM PDT [facility] ATTENDING EMERGENCY ROOM PHYSICIAN DAILY PROGRESS NOTE Team Pager: [phone] Attending Pager: [phone] Author: ELMIRA SALGUERO MD ATTESTATION: I saw and evaluated the patient at the bedside together with Dr. Palacios. Please see their note for a detailed rounding summary. I reviewed the documented findings, relevant data, and recent imaging available. I agree with the assessment and plan as described in [facility] resident's note with the following exceptions/additions as noted below. HPI: 67 yo man with hx of CAD s/p 3V CABG (DE LA ROSA --> LAD, SVG --> OM, PDA) on 11/29/12, development al delay, morbid obesity, VT, LV thrombus, HTN, and CKD (baseline Cr ~1.5) who returned to [facility]ness [...] who is critically ill. Elmira Salguero MD Core Extrudersterile instrument technician Pulmonary and Critical Care Medicine [facility] DEPARTMENT: [facility]- [id number] Place of Service: - Date of Service: 12/08/2012 CSN: [id number] Modifiers:GC Resident Involved: yes Suggested CPT: 30615 Critical Care, Initial 30-74 minutes alraimundo, MD Veronika - 6:04 AM PDT [facility] DAILY PROGRESS NOTE (fellow) Team Pager: [phone] Attendin Author: Veronika Palacios MD Date:12/08/2012 Attending Curator Of Education: Operating Surgeon: MD Narendra Snyder MD POD #9 3v CABG (11/29/12), POD#4 sternotomy (12/04/12) HPI: Josef aRmos is a 67 y.o. male with a [...] might be different from the mónica ginal. [facility] DEPARTMENT: [facility]- [id number] Place of Service: Date of Service: 12/07/2012 CSN: [id number] Modifiers:GC Resident Involved: yes Suggested CPT: 52811 Critical Care, Initial 30-74 minutes 33 minutes total time spent in Critical care independent of procedures. My impression, recent events and assesment are at the top of this note. Today's data which were reviewed are listed below the A&P I saw and examined JOSEF RAMOS with the [facility] housestaff. I agree with the written [...] Value Range Status 12/07/2012 Final Value: STUDY: AL CHEST 1 VIEW 12/07/12 06:14:00 CLINICAL DATA: [...] [facility] DAILY PROGRESS NOTE (fellow) Team Pager: [phone] Attendin Author: Veronika Palacios MD Date:12/07/2012 Attending Curator Of Education: Operating Surgeon: MD Narendra Snyder MD POD [...] different from the or iginal. 8[facility] ATTENDING EMERGENCY ROOM PHYSICIAN DAILY PROGRESS NOTE Team Pager: [phone] Attending Pager: [phone] Author: ELMIRA SALGUERO MD ATTESTATION: I saw and evaluated the patient at the bedside together with Dr. Palacios. Please see their note for a detailed rounding summary. I reviewed the documented findings, relevant data, and recent imaging available. I agree with the assessment and plan as described in [facility] resident's note with the following exceptions/additions as noted below. HPI: 67 yo man with hx of CAD s/p 3V CABG (DE LA ROSA --> LAD, SVG --> OM, PDA) on 11/29/12, development al delay, morbid obesity, VT, LV thrombus, HTN, and CKD (baseline Cr ~1.5) who returned to [facility] [...] open chest - renal consult and recs ([facility] care) -- watch for dialysis needs - cont heparin infusion, titrate to heparin levels 0.3 -- 0.5, ATIII >0.5 - trophic tube feeds - I/O: do not allow to become significantly more negative than 1L I have spent 35 minutes in the care and management of this patient (not including procedure s), who is critically ill. Elmira Salguero MD Core Extrudersterile instrument technician Pulmonary and Critical Care Medicine [facility] DEPARTMENT: [facility]- [id number] Place of Service: Date of Service: 12/07/2012 CSN: [id number] Modifiers:GC Resident Involved: yes Suggested CPT: 19603 Critical Care, Initial 30-74 minutes Mack Malagon MD - 11/24 10:17 PM PDT [facility] DEPARTMENT: [facility]- [id number] Place of Service: Date of Service: 12/06/2012 CSN: [id number] Modifiers:GC Resident Involved: yes Suggested CPT: 54514 Critical Care, Initial 30-74 minutes 43 minutes total time spent in Critical care independent of procedures. My impression, recent events and assesment are at the top of this note. Today's data which were reviewed are listed below the A&P I saw and examined JOSEF RAMOS with the [facility] housestaff. I agree with the written [...] [facility] DAILY PROGRESS NOTE (fellow) Team Pager: [phone] Attendin Author: Veronika Palacios MD Date:12/06/2012 Attending Curator Of Education: Operating Surgeon: MD Narendra Snyder MD POD [...] different from the or iginal. 8[facility] ATTENDING EMERGENCY ROOM PHYSICIAN DAILY PROGRESS NOTE Team Pager: [phone] Attending Pager: [phone] Author: ELMIRA SALGUERO MD ATTESTATION: I saw and evaluated the patient at the bedside together with Dr. Palacios. Please see their note for a detailed rounding summary. I reviewed the documented findings, relevant data, and recent imaging available. I agree with the assessment and plan as described in [facility] resident's note with the following exceptions/additions as noted below. HPI: 67 yo man with hx of CAD s/p 3V CABG (DE LA ROSA --> LAD, SVG --> OM, PDA) on 11/29/12, development al delay, morbid obesity, VT, LV thrombus, HTN, and CKD (baseline Cr ~1.5) who returned to [facility] [...] who is critically ill. Elmira Salguero MD Core Extrudersterile instrument technician Pulmonary and Critical Care Medicine [facility] DEPARTMENT: [facility]- [id number] Place of Service: Date of Service: 12/06/2012 CSN: [id number] Modifiers:GC Resident Involved: yes Suggested CPT: 77977 Critical Care, Initial 30-74 minutes Mack Malagon MD - 11/24 8:36 PM PDT [facility] [place] DEPARTMENT: [facility]- [id number] Place of Service: - Date of Service: 12/05/2012 CSN: [id number] Modifiers:GC Resident Involved: yes Suggested CPT: 47055 Critical Care, Initial 30-74 minutes 32 minutes total time spent in Critical care independent of procedures. My impression, recent events and assesment are at the top of this note. Today's data which were reviewed are listed below the A&P I saw and examined JOSEF RAMOS with the [facility] housestaff. I agree with the written [...] Value Range Status 12/05/2012 Final Value: STUDY: AL CHEST 1 VIEW 12/05/12 07:56:00 INDICATION: Sternotomy [...] [facility] DAILY PROGRESS NOTE (fellow) Team Pager: [phone] Attendin Author: Veronika Palacios MD Date:12/05/2012 Attending Curator Of Education: Operating Surgeon: MD Narendra Snyder MD POD [...] different from the or iginal. 8[facility] ATTENDING EMERGENCY ROOM PHYSICIAN DAILY PROGRESS NOTE Team Pager: [phone] Attending Pager: [phone] Author: ELMIRA SALGUERO MD ATTESTATION: I saw [...] who is critically ill. Elmira Salguero MD Core Extrudersterile instrument technician Pulmonary and Critical Care Medicine [facility] [place] DEPARTMENT: [facility]- [id number] Place of Service: Date of Service: 12/05/2012 [facility]: [id number] Modifiers:GC Resident Involved: yes Suggested CPT: 45851 Critical Care, Initial 30-74 minutes aMck Malagon MD - 11/24 9:33 PM PDT EPIC DEPARTMENT: [facility]- [id number] Place of Service: - Date of Service: 12/04/2012 CSN: [id number] Modifiers:GC Resident Involved: yes Suggested CPT: 73638 Critical Care, Each additional 30 minutes x 4 93 minutes total time spent in Critical care independent of procedures. My impression, recent events and assesment are at the top of this note. Today's data which were reviewed are listed below the A&P I saw and examined JOSEF RAMOS with the [facility] housestaff. I agree with the written [...] Value Range Status 12/04/2012 Final Value: STUDY: AL CHEST 1 VIEW 12/04/12 15:25:00 INDICATION: Left [...] his chest open Dispo: Critical Dictation # [id number] HELEN GEE MD Cardiothoracic Surgery Fellow Narendra Sosa MD - 12/04/2012 5:24 PM PDTCT Surgery Staff Patient with continued hem,odynamic deterioration and high CVP. Echo windows very difficult. Planning for MADUHRI Patient with code dose Epi, required CPR with Rhythm change and we elected to open his ches t. Hemodynamic improvement following chest opening. Will plan for open chest for a period of time and then re-evaluation Family (Joanne Lastvey) updated. Electronically signed Narendra Lunsford MD, FACS, FACC Pilot Control Operator Helper, Department of Surgery Head, Adult Cardiac Surgery Co-Director, Multidisciplinary Heart Valve Clinic [facility] | [email or web address] Elmira Rutherford MD - 0 12/04/2012 3:16 PM PDT 8CSI ATTENDING EMERGENCY ROOM PHYSICIAN DAILY PROGRESS NOTE Team Pager: [phone] Attending Pager: [phone] Author: ELMIRA SALGUERO MD ATTESTATION: I saw [...] - consider HD if UOP does not peanut picker I have spent 120 minutes in the care and management of this patient (not including procedur es), who is critically ill. Elmira Salguero MD Core Extrudersterile instrument technician Pulmonary and Critical Care Medicine [facility] [facility] DEPARTMENT: [facility]- [id number] Place of Service: Date of Service: 12/04/2012 CSN: [id number] Modifiers:GC Resident Involved: yes Suggested CPT: 99104 Critical Care, Each additional 30 minutes x 2 and 90644 Critical Care, Initial 30-74 minutes oseph Lewis [...] CTA bilateral GI Obese, soft non-tender Skin [place]/warm/dry, sternal and leg incisions are c,d,i Chemistries: [...] to ICU (Electronically Signed) Joseph Lewis PA-C [facility] Cardiac Surgery Gloria Christie MD - 3 3:25 PM PDT Cardiothoracic Surgery Progress Note Procedure: CABG x 3 POD # 3 Past 24 hour Events Transfer to [facility], on heparin gtt for LV [...] - 12/02/2012 5:40 PM PST 8[facility] ATTENDING EMERGENCY ROOM PHYSICIAN NIGHT NOTE Team Pager: [phone] Attending Pager: [phone] Date:12/02/2012 Author: DALJIT HARRELL MD Attestation: I [...] M.D. Department of Anesthesiology & Ольга-Operative Medicine [address] [facility] [place] [address] [facility] DEPARTMENT: [facility] ICU CARDIAC [[id number]] Place of Service:- Inpatient Date of Service: 12/02/2012 [facility]: [id number] Suggested Modifier: Suggested CPT: TO SEAFOOD PROCESS WORKER Data Below Used in this Assessment: Hemodynamics: [...] - 12/02/2012 10:07 AM PST 8[facility] ATTENDING EMERGENCY ROOM PHYSICIAN PROGRESS NOTE Team Pager: [phone] Attendin I saw and examined the patient [...] M.A. Department of Anesthesiology and Ольга-Operative Medicine [facility] [facility] [address] [address] [place] DEPARTMENT: [facility] ICU CARDIAC [[id number]] Place of Service:- Inpatient Date of Service: 12/02/2012 CSN: [id number] Suggested Modifier: GC - Resident Involved Suggested CPT: TO SEAFOOD PROCESS WORKER 1: 24 PM Veronika Lloyd MD - 12/02/2012 9:18 AM PSTFormatting of this note might be differ ent from the original. 8[facility] DAILY PROGRESS NOTE (Cardiac) Team Pager: [phone] Attendin Author: Veronika Palacios MD Date:12/02/2012 Attending Curator Of Education: Operating Surgeon: MD Narendra Ellison MD POD#3 [...] of this note might be different from [facility] original. 8[facility] ATTENDING EMERGENCY ROOM PHYSICIAN NIGHT NOTE Team Pager: [phone] Attending Pager: [phone] Date:12/01/2012 Author: DALJIT HARRELL MD Attestation: I [...] Department of Anesthesiology & Ольга-Operative Medicine [address] [facility] [place] [address] [facility] DEPARTMENT: [facility] ICU CARDIAC [[id number]] Place of Service:- Inpatient Date of Service: 12/01/2012 CSN: [id number] Suggested Modifier: Suggested CPT: TO SEAFOOD PROCESS WORKER Data Below Used in this Assessment: Hemodynamics: [...] 8[facility] DAILY PROGRESS NOTE (Cardiac) Team Pager: [phone] Attendin Author: Veronika Palacios MD Date:12/01/2012 Attending Curator Of Education: Operating Surgeon: MD Narendra Ellison MD POD#2 [...] - 12/01/2012 7:35 AM PST 8[facility] ATTENDING EMERGENCY ROOM PHYSICIAN DAILY PROGRESS NOTE Team Pager: [phone] Attendin Date:12/01/2012 Author: HEIDI NIETO MD Attestation: [...] patient who is currently criti ryan ill. [facility] DEPARTMENT: [facility] ICU CARDIAC [[id number]] Place of Service:54288- Inpatient Date of Service: 12/01/2012 [facility]: [id number] Suggested Modifier: GC - Resident Involved Suggested CPT: TO SEAFOOD PROCESS WORKER Hemodynamics: Hemodynamic Drips: Arterial BP Mean: 70 [...] - 11/30/2012 7:21 PM PST 8[facility] ATTENDING EMERGENCY ROOM PHYSICIAN NIGHT NOTE Team Pager: [phone] Attending Pager: [phone] Date:11/30/2012 Author: DALJIT HARRELL MD Attestation: I [...] 500, Insulin 7, Milrinone 0.125, NE 0.03, MILK PASTEURIZER 2 Vent: 3L NC CI 3.1 SVO2 [...] M.D. Department of Anesthesiology & Ольга-Operative Medicine [address] [place] [address] Rd. [facility] [place] [address] [facility] DEPARTMENT: [facility] ICU CARDIAC [[id number]] Place of Service:- Inpatient Date of Service: 11/30/2012 CSN: [id number] Suggested Modifier: GC - Resident Involved Suggested CPT: TO SEAFOOD PROCESS WORKER Data Below Used in this Assessment: Hemodynamics: [...] 03/07/13 1900 Gross per 24 hour Intake 01056.26 ml Output 4055 ml Net 7505.26 ml [...] - 11/30/2012 12:37 PM PST 8[facility] ATTENDING EMERGENCY ROOM PHYSICIAN PROGRESS NOTE Team Pager: [phone] Attendin Urine has large leukocyte esterase, bacteria, and 103 WBC. Presumptive urosepsis Continue abx and volume resuscitation Milrinone to support LV in setting of resuscitation 14 additional minutes spent in the care and management of this patient who is critically i ll Heidi Nieto M.D., M.A. Department of Anesthesiology and Ольга-Operative Medicine [address] [place] [id number] [place] [address] DEPARTMENT: [facility] ICU CARDIAC [[id number]] Place of Service:13896- Inpatient Date of Service: 11/30/2012 CSN: [id number] Suggested Modifier: None Suggested CPT: TO SEAFOOD PROCESS WORKER 1: 59 PM Elba Grady - 11/30/2012 11:05 AM PSTTransthoracic echocardiogram completed. Final report to follow. Heidi Munoz MD - 03/2013 7:54 AM PST 8[facility] ATTENDING EMERGENCY ROOM PHYSICIAN DAILY PROGRESS NOTE Team Pager: [phone] Attendin Date:11/30/2012 Author: HEIDI NIETO MD Attestation: [...] patient who is currently criti ryan ill. [facility] DEPARTMENT: [facility] ICU CARDIAC [[id number]] Place of Service:- Inpatient Date of Service: 11/30/2012 CSN: [id number] Suggested Modifier: GC - Resident Involved Suggested CPT: TO SEAFOOD PROCESS WORKER Hemodynamics: Hemodynamic Drips: Arterial BP Mean: 66 [...] 8[facility] DAILY PROGRESS NOTE (Cardiac) Team Pager: [phone] Attendin Author: MIHIR MCGRATH MD Date:11/30/2012 Attending Curator Of Education: Operating Surgeon: MD Narendra Ellison MD POD# [...] Name: Josef Ramos Date of : 1945 [facility] Medical Record Number: [id number] Date: 11/29/2012 Attending Surgeon: NARENDRA LUNSFORD MD Head Of Sales And Marketing(s): Kathy Castro PA-C No residents of the [...] The patient was positioned appropriately. The following store team member s were present during the team pause: Surgeon, assistant chief nursing officer, nursing, anesthesia, perfusion. Findings at Surgery: The [...] Electronically signed Narendra Lunsford MD, FACS, FACC Pilot Control Operator Helper, Department of Surgery Head, Adult Cardiac Surgery Co-Director, Multidisciplinary Heart Valve Clinic [facility] & [facility] | [email or web address] Joseph Duvall - 013 12:50 PM PST [...] CABG tomorrow (Electronically Signed) Joseph Lewis PA-C [facility] Cardiac Surgery oseph Hakns - 11/27/2012 11 :25 AM PSTTransthoracic echocardiogram [...] mg daily (Electronically Signed) Joseph Lewis PA-C [facility] Cardiac Surgery documented in this encounter [...] | | | al | | vessel, [place] or | | | | | | [...] did goahead and | | placed a [place] per Dr. Zambrano from anesthesiology in the [...] then made note of his hemodynamics andthe [place] parameters. The sternum | | was closed [...] in critical butstable condition.Helen Gee, MDCJW / [id number] / [id number] / | | 15274 / T: 12/08/2012 Electronically signedNarendra Lunsford MD, FACS, | | FACCAssociate Professor, Department of SurgeryWvumedicine [facility], Adult Cardiac SurgeryCo-Director, | | [facility] CityPhone: [phone] | | [phone] | [email or web address] | |fluid and some clot. Although, this [...] note of his hemodynamics and | |the [place] parameters. The sternum was closed with three [...] Gee MD | |CJW / HS | |[id number] / [id number] / [id number] / | | | | | | | |Electronically signed | |Narendra Lunsford MD, FACS, FACC | |Pilot Control Operator Helper, Department of Surgery | |Head, Adult Cardiac Surgery | |Co-Director, Multidisciplinary Heart Valve Clinic | |[facility] | | | | | | |[email or web address] | + + CAPILLARY BLOOD GLUCOSE (NO [...] MARQUAM | [address] | [place], [place] | | | KAILYN MAZA OF CARE | [address] | [address] | | | TESTS | | | [...] LUPEAM | [address] | [place], [place] | | | KAILYN MAZA OF [facility] | [address] | [address] | | | TESTS | | | [...] + + | [facility] | [address] | [place] [address] | | | SERVICES, CORE | PARK [...] | | | LABORATORY | | | BELIZEAN | | | SERVICES, | | | [...] [facility] | [address] | [place] [address] | | | SERVICES, CORE | PARK [...] [facility] | [address] | [place] [address] | | | SERVICESTOI | [address] [...] + + + + + | [facility] | [address] | [place] [address] | | | TOI MARIN | [address] [...] (H) | 60 - 99 mg/dL | [facility] - | | | GLUCOSE, | [...] LUPEAM | [address] | [place], [place] | | | KAILYN MAZA OF JOHN | [address] | [address] | | | TESTS | | | [...] GONZALEZ | [address] | [place], [place] | | | KAILYN MAZA OF CARE | [facility] | [address] | | | TESTS | | | [...] MARQUAM | [address] | [place], [place] | | | KAILYN MAZA OF CARE | [facility] | [address] | | | TESTS | | | [...] (H) | 60 - 99 mg/dL | [facility] - | | | GLUCOSE, | [...] GONZALEZ | [address] | [place], [place] | | | KAILYN MAZA OF [facility] | [address] | [address] | | | TESTS | | | [...] | | | LABORATORY | | | BELIZEAN | | | SERVICES, | | | [...] [facility] | [address] | [place] [address] | | | SERVICES, CORE | PARK [...] | + + + + + | [facility] | [address] | [place] [address] | | | SERVICES, TOI | CRYSTAL [...] | + + + + + | [facility] | [address] | [place] [address] | | | SERVICES, TOI | CRYSTAL [...] (H) | 60 - 99 mg/dL | [facility] - | | | GLUCOSE, | [...] GONZALEZ | [address] | [place], [place] | | | SHAUNNA POINT OF CARE | [address] | [address] | | | TESTS | | | [...] CARLOS | [address] | [place], [place] | | | KAILYN MAZA OF CARE | [address] | [address] | | | TESTS | | | [...] - CARLOS | [address] | [place], [place] | | | [place] [facility] | [facility] | [address] | | | TESTS | | | [...] | + + + + + | [facility] | [address] | [place] [address] | | | TOI MARIN | CRY[address] [...] (H) | 60 - 99 mg/dL | [facility] - | | | GLUCOSE, | [...] CARLOS | [address] | [place], [place] | | | SHAUNNA POINT OF CARE | [address] | [address] | | | TESTS | | | [...] GONZALEZ | [address] | [place], [place] | | | KAILYN MAZA OF JOHN | [facility] | [address] | | | TESTS | | | [...] + + | Performing | Address | City/State/[facility] Centercode | Phone Number | | Organization | | | | + + + + + | [facility] | [address] | [place] [address] | | | TANIA, [facility] | [address] | | | + [...] [facility] | [address] | [place] [address] | | | TOI MARIN | [address] [...] | | | LABORATORY | | | BELIZEAN | | | SERVICES, | | | [...] | + + + + + | [facility] | [address] | [place] [address] | | | SERVICES, CORE | CRYSTAL [...] MARQUAM | [address] | [place], [place] | | | KAILYN MAZA OF CARE | [address] | [address] | | | TESTS | | | [...] GONZALEZ | [address] | [place], [place] | | | [facility] [facility] | [address] | [address] | | | TESTS | | | [...] + + + + + | [facility] | [address] | [place] [address] | | | SERVICES, CORE | CRYSTAL [...] (H) | 60 - 99 mg/dL | [facility] - | | | GLUCOSE, | [...] GONZALEZ | [address] | [place], [place] | | | KAILYN MAZA OF JOHN | [address] | [address] | | | TESTS | | | [...] MARQUAM | [address] | [place], [place] | | | SHAUNNA POINT OF CARE | [address] | [address] | | | TESTS | | | | + + + + + X-RAY PORTABLE CHEST 1 VIEW (12/19/2012 6:46 AM PDT) + + + + + + | Component | Value | Ref Range | Performed | Pathologist | | | | | At | Signature | + + + + + + | X-RAY | STUDY: AL CHEST 1 VIEW | | | | [...] | | + +---------+ + + | [facility] DEPARTMENT OF | | | | [...] [facility] | [address] | [place] [address] | | | SERVICES, CORE | PARK [...] - CARLOS | [address] | [place], [place] | | | KAILYN MAZA OF [facility] | [address] | [address] | | | TESTS | | | [...] + + + + + | [facility] | [address] | [place] [address] | | | SERVICES, CORE | PARK [...] + + + + + | [facility] | [address] | [place] [address] | | | SERVICES, CORE | PARK [...] | + + + + + | [facility] | [address] | [place] [address] | | | SERVICES, CORE | CRYSTAL [...] | | | LABORATORY | | | BELIZEAN | | | SERVICES, | | | [...] | + + + + + | [facility] | [address] | [place] [address] | | | SERVICES, CORE | PARK [...] + | [place] [facility] - | [address] | [place] [address] | | | [place] | | | | + + + [...] | [facility] | [address] | [place] [address] | | | DIAGNOSTIC | [address] [...] MARKATHERINEAM | [address] | [place], [place] | | | KAILYN MAZA OF CARE | [address] | [address] | | | TESTS | | | [...] - MARQUAM | [address] | [place], [place] | | | KAILYN MAZA OF CARE | [address] | [address] | | | TESTS | | | [...] GONZALEZ | [address] | [place], [place] | | | KAILYN MAZA OF CARE | [address] | [address] | | | TESTS | | | [...] MARKATHERINEAM | [address] | [place], [place] | | | KAILYN MAZA OF JOHN | [address] | [address] | | | TESTS | | | | + + + + + X-RAY PORTABLE CHEST 1 VIEW (12/18/2012 6:39 AM PDT) + + + + + + | Component | Value | Ref Range | Performed | Pathologist | | | | | At | Signature | + + + + + + | X-RAY | STUDY: AL CHEST 1 VIEW | | | | [...] + + + + + | [facility] | [address] | [place] [address] | | | SERVICES, CORE | PARK [...] | + + + + + | [facility] | [address] | [place] [address] | | | TANIA, TOI | [address] [...] + + + + + | [facility] | [address] | [place] [address] | | | SERVICES, TOI | CRYSTAL [...] [facility] | [address] | [place] [address] | | | SERVICES, CORE | PARK [...] | | | LABORATORY | | | BELIZEAN | | | SERVICES, | | | [...] (H) | 4 - 11 mmol/L | [facility] | | | GAP(ALB | | [...] + + + + + | [facility] | [address] | [place] [address] | | | SERVICES, CORE | PARK [...] LUPEAM | [address] | [place], [place] | | | KAILYN MAZA OF CARE | [facility] | [address] | | | TESTS | | | [...] (H) | 60 - 99 mg/dL | [facility] - | | | GLUCOSE, | [...] CARLOS | [address] | [place], [place] | | | SHAUNNA POINT OF CARE | [address] | [address] | | | TESTS | | | [...] CARLOS | [address] | [place], [place] | | | KAILYN MAZA OF JOHN | [facility] | [address] | | | TESTS | | | [...] BRIDGETTE GONZALEZ | [address] | [place], [place] | | | SHAUNNA POINT OF CARE | [address] | [address] | | | TESTS | | | | + + + + + X-RAY PORTABLE CHEST 1 VIEW (12/17/2012 7:17 AM PDT) + + + + + + | Component | Value | Ref Range | Performed | Pathologist | | | | | At | Signature | + + + + + + | X-RAY | STUDY: AL CHEST 1 VIEW | | | | [...] + + + + + | [facility] | [address] | [place] [address] | | | SERVICES, CORE | PARK [...] + + + + + | [facility] | [address] | [place] [address] | | | SERVICES, CORE | [address] | | | + + + + + MAGNESIUM, PLASMA (12/17/2012 5:29 AM PDT) + +-------+ + + + | Component | Value | Ref Range | Performed | Pathologist | | | | | At | Signature | + +-------+ + + + | MAGNESIUM,P | 2.1 | 1.8 - 2.5 mg/dL | [facility] | | | LASMA | | | [...] | + + + + + | [facility] | [address] | [place] [address] | | | SERVICES, CORE | CRYSTAL [...] | | | LABORATORY | | | BELIZEAN | | | SERVICES, | | | [...] | + + + + + | [facility] | [address] | [place] [address] | | | SERVICES, CORE | CRYSTAL [...] (H) | 60 - 99 mg/dL | [facility] - | | | GLUCOSE, | [...] GONZALEZ | [address] | [place], [place] | | | KAILYN MAZA OF JOHN | [facility] | [address] | | | TESTS | | | [...] GONZALEZ | [address] | [place], [place] | | | KAILYN MAZA OF CARE | [address] | [address] | | | TESTS | | | [...] CARLOS | [address] | [place], [place] | | | KAILYN MAZA OF JOHN | [facility] | [address] | | | TESTS | | | [...] (H) | 60 - 99 mg/dL | [facility] - | | | GLUCOSE, | [...] GONZALEZ | [address] | [place], [place] | | | SHAUNNA POINT OF CARE | [address] | [address] | | | TESTS | | | | + + + + + X-RAY PORTABLE CHEST 1 VIEW (12/16/2012 7:07 AM PDT) + + + + + + | Component | Value | Ref Range | Performed | Pathologist | | | | | At | Signature | + + + + + + | X-RAY | STUDY: AL CHEST 1 VIEW | | | | [...] [facility] | [address] | [place] [address] | | | SERVICES, CORE | CRYSTAL [...] | + + + + + | [facility] | [address] | [place] [address] | | | SERVICES, CORE | PARK [...] | + + + + + | [facility] | [address] [facility] | [place] [address] | | | SERVICES, CORE | PARK [...] [facility] | [address] | [place] [address] | | | TOI MARIN | CRYSTAL [...] | | | LABORATORY | | | BELIZEAN | | | SERVICES, | | | [...] | + + + + + | [facility] | [address] | [place] [address] | | | SERVICES, CORE | CRYSTAL [...] MARQUAM | [address] | [place], [place] | | | KAILYN MAZA OF JOHN | [address] | [address] | | | TESTS | | | [...] CARLOS | [address] | [place], [place] | | | [facility] | [facility] | [address] | | | TESTS | | | [...] for children less than 6 months | [facility] | | can be found in the Hemostasis Section general instructions of the | LABORATORY | | [facility] Lab Manual: | SERVICES, CORE | | [email or web address] | | + + + + + + + + | Performing | Address | City/State/Zipcode | Phone Number | | Organization | | | | + + + + + | [facility] | [address] | [place] [address] | | | SERVICES, CORE | CRYSTAL [...] (H) | 60 - 99 mg/dL | [facility] - | | | GLUCOSE, | [...] GONZALEZ | [address] | [place], [place] | | | SHAUNNA POINT OF CARE | [address] | [address] | | | TESTS | | | [...] | + + + + + | [facility] | [address] | [place] [address] | | | SERVICES, CORE | CRYSTAL [...] MARQUAM | [address] | [place], [place] | | | SHAUNNA POINT OF CARE | [address] | [address] | | | TESTS | | | [...] + + + + + | [facility] | [address] | [place] [address] | | | TOI MARIN | CRYSTAL [...] (H) | 60 - 99 mg/dL | [facility] - | | | GLUCOSE, | [...] GONZALEZ | [address] | [place], [place] | | | KAILYN MAZA OF CARE | [address] | [address] | | | TESTS | | | | + + + + + X-RAY PORTABLE CHEST 1 VIEW (12/15/2012 5:51 AM PDT) + + + + + + | Component | Value | Ref Range | Performed | Pathologist | | | | | At | Signature | + + + + + + | X-RAY | STUDY: AL CHEST 1 VIEW | | | | [...] [facility] | [address] | [place] [address] | | | SERVICES, CORE | PARK [...] + + + + + | [facility] | [address] | [place] [address] | | | SERVICES, CORE | PARK [...] | + + + + + | [facility] | [address] [facility] | [place] [address] | | | SERVICES, CORE | CRYSTAL [...] | | | LABORATORY | | | BELIZEAN | | | SERVICES, | | | [...] + + + + + | [facility] | [address] | [place] [address] | | | SERVICES, CORE | [address] | | | + + + + + MAGNESIUM, PLASMA (12/15/2012 5:25 AM PDT) + +-------+ + + + | Component | Value | Ref Range | Performed | Pathologist | | | | | At | Signature | + +-------+ + + + | MAGNESIUM,P | 2.1 | 1.8 - 2.5 mg/dL | [facility] | | | ELINAMA | | | [...] + + + + + | [facility] | [address] [address] | [place] [address] | | | SERVICES, CORE | PARK [...] (H) | 60 - 99 mg/dL | [facility] - | | | GLUCOSE, | [...] GONZALEZ | [address] | [place], [place] | | | KAILYN MAZA OF JOHN | [facility] | [address] | | | TESTS | | | [...] MARQUAM | [address] | [place], [place] | | | [facility] | [address] | [address] | | | TESTS | | | [...] + + + + + | [facility] | [address] | [place] [address] | | | SERVICES, CORE | CRYSTAL [...] (H) | 60 - 99 mg/dL | [facility] - | | | GLUCOSE, | [...] + + + | BRIDGETTE GONZALEZ | [address] | [place], [place] | | | [facility] | [address] | [address] | | | TESTS | | | [...] + | [place] [facility] - | [address] | [place] [address] | | | [place] | | | [...] - CARLOS | [address] | [place], [place] | | | [facility] | [facility] | [address] | | | TESTS | | | [...] + + + + + | [facility] | [address] | [place] [address] | | | SERVICES, CORE | CRYSTAL [...] GONZALEZ | [address] | [place], [place] | | | [facility]ARE | [address] | [address] | | | TESTS | | | [...] MARQUAM | [address] | [place], [place] | | | [facility]ARE | [address] | [address] | | | TESTS | | | [...] MARQUAM | [address] | [place], [place] | | | [facility] POINT [facility] | [facility] | [address] | | | TESTS | | | [...] GONZALEZ | [address] | [place], [place] | | | [facility] CARE | [address] | [address] | | | TESTS | | | | + + + + + X-RAY PORTABLE CHEST 1 VIEW (12/14/2012 5:32 AM PDT) + + + + + + | Component | Value | Ref Range | Performed | Pathologist | | | | | At | Signature | + + + + + + | X-RAY | STUDY: AL CHEST 1 VIEW | | | | [...] | | + +---------+ + + | [facility] DEPARTMENT OF | | | | [...] MARQUAM | [address] | [place], [place] | | | SHAUNNA POINT OF CARE | [facility] | [address] | | | TESTS | | | [...] LUPEAM | [address] | [place], [place] | | | SHAUNNA POINT OF CARE | [address] | [address] | | | TESTS | | | [...] + + + + + | [facility] | [address] | [place] [address] | | | SERVICES, CORE | PARK [...] [facility] | [address] | [place] [address] | | | SERVICES, CORE | PARK [...] | + + + + + | [facility] | [address] [facility] | [place] [address] | | | SERVICES, CORE | CRYSTAL [...] + + + + + | [facility] | [address] | [place] [address] | | | SERVICES, CORE | PARK [...] MARKATHERINEAM | [address] | [place], [place] | | | KAILYN MAZA OF CARE | [facility] | [address] | | | TESTS | | | [...] (H) | 60 - 99 mg/dL | [facility] - | | | GLUCOSE, | [...] MARQUAM | [address] | [place], [place] | | | SHAUNNA POINT OF [facility] | [address] | [address] | | | TESTS | | | [...] GONZALEZ | [address] | [place], [place] | | | KAILYN MAZA OF JOHN | [facility] | [address] | | | TESTS | | | [...] - MARQUAM | [address] | [place], [place] | | | KAILYN MAZA OF CARE | [facility] | [address] | | | TESTS | | | [...] (H) | 60 - 99 mg/dL | [facility] - | | | GLUCOSE, | [...] DUNGQUAM | [address] | [place], [place] | | | SHAUNNA POINT OF CARE | [address] | [address] | | | TESTS | | | [...] GONZALEZ | [address] | [place], [place] | | | KAILYN MAZA OF JOHN | [facility] | [address] | | | TESTS | | | [...] | + + + + + | [facility] | [address] [facility] [facility] | [place] [address] | | | SERVICES, CORE | PARK [...] [facility] | [address] | [place] [address] | | | SERVICES, CORE | PARK [...] CARLOS | [address] | [place], [place] | | | [place] [facility] | [address] | [address] | | | TESTS | | | [...] [facility] | [address] | [place] [address] | | | SERVICES, CORE | PARK [...] + + + + + | [facility] | [address] | [place] [address] | | | SERVICES, CORE | CRYSTAL [...] (H) | 60 - 99 mg/dL | [facility] - | | | GLUCOSE, | [...] + + + | [facility] GONZALE[facility] | [address] | [place], [place] | | | SHAUNNA POINT OF CARE | [address] | [address] | | | TESTS | | | [...] MARQUAM | [address] | [place], [place] | | | SHAUNNA POINT OF CARE | [address] | [address] | | | TESTS | | | [...] [facility] | [address] | [place] [address] | | | SERVICES, CORE | PARK [...] + + + + + | [facility] | [address] [facility] | [place] [address] | | | SERVICES, CORE | PARK [...] [facility] | [address] | [place] [address] | | | TOI MARIN | CRYSTAL [...] + + + + + | [facility] | [address] | [place] [address] | | | SERVICES, CORE | PARK [...] | + + + + + | [facility] | [address] | [place] [address] | | | SERVICES, CORE | PARK [...] CARLOS | [address] | [place], [place] | | | KAILYN MAZA OF JOHN | [address] | [address] | | | TESTS | | | [...] GONZALEZ | [address] | [place], [place] | | | SHA[place] POINT OF [facility] | [address] | [address] | | | TESTS | | | [...] MARQUAM | [address] | [place], [place] | | | SHAUNNA POINT OF CARE | [address] | [address] | | | TESTS | | | [...] GONZALEZ | [address] | [place], [place] | | | SHAUNNA POINT OF CARE | [address] | [address] | | | TESTS | | | [...] MARQUAM | [address] | [place], [place] | | | KAILYN MAZA OF CARE | [address] | [address] | | | TESTS | | | [...] | + + + + + | [facility] | [address] | [place] [address] | | | TANIA, TOI | CRYSTAL [...] (H) | 60 - 99 mg/dL | [facility] - | | | GLUCOSE, | [...] GONZALEZ | [address] | [place], [place] | | | SHAUNNA POINT OF CARE | [address] | [address] | | | TESTS | | | [...] + + + + + | [facility] | [address] | [place] [address] | | | SERVICES, CORE | PARK [...] + + + + + | [facility] | [address] | [place] [address] | | | SERVICES, CORE | CRYSTAL [...] (H) | 60 - 99 mg/dL | [facility] - | | | GLUCOSE, | [...] GONZALEZ | [address] | [place], [place] | | | KAILYN MAZA OF [facility] | [address] | [address] | | | TESTS | | | [...] MARQUAM | [address] | [place], [place] | | | KAILYN MAZA OF CARE | [address] | [address] | | | TESTS | | | [...] + + + + + | [facility] | [address] [facility] | [place] [address] | | | TANIA, CORE | PARK [...] - MARQUAM | [address] | [place], [place] | | | SHAUNNA POINT OF CARE | [address] | [address] | | | TESTS | | | [...] + + + | BR[facility]TE GONZALE[facility] | [address] | [place], [place] | | | KAILYN MAZA OF JOHN | [address] | [address] | | | TESTS | | | [...] MARQUAM | [address] | [place], [place] | | | SHAUNNA POINT OF CARE | [address] | [address] | | | TESTS | | | [...] + + + + + | [facility] | [address] | [place] [address] | | | SERVICES, CORE | PARK [...] | + + + + + | [facility] | [address] | [place] [address] | | | SERVICES, CORE | PARK [...] | + + + + + | [facility] | [address] | [place] [address] | | | SERVICES, CORE | CRYSTAL [...] LUPEAM | [address] | [place] | | | SHAUNNA POINT OF CARE | [address] | [address] | | | TESTS | | | [...] GONZALEZ | [address] | [place], [place] | | | KAILYN MAZA OF [facility] | [facility] | [address] | | | TESTS | | | | + + + + + X-RAY PORTABLE CHEST 1 VIEW (12/12/2012 5:53 AM PDT) + + + + + + | Component | Value | Ref Range | Performed | Pathologist | | | | | At | Signature | + + + + + + | X-RAY | EXAM: AL CHEST 1 VIEW | | | | [...] [facility] | [address] | [place] [address] | | | SERVICES, CORE | PARK [...] [facility] | [address] | [place] [address] | | | SERVICES, CORE | PARK [...] [facility] | [address] | [place] [address] | | | TOI MARIN | CRYSTAL [...] | | | LABORATORY | | | OTI MARIN | + + + + + + + + | Performing | Address | City/State/Zipcode | Phone Number | | Organization | | | | + + + + + | [facility] | [address] [facility] [facility] [address] | [place] [address] | | | TOI MARIN | CRYSTAL [...] [facility] | [address] | [place] [address] | | | SERVICES, CORE | PARK [...] [facility] | [address] | [place] [address] | | | SERVICES, CORE | PARK [...] | + + + + + | [facility] | [address] | [place] [address] | | | SERVICES, CORE | CRYSTAL [...] [facility] | [address] | [place] [address] | | | TOI MARIN | PARK [...] CARLOS | [address] | [place], [place] | | | KAILYN MAZA OF CARE | [address] | [address] | | | TESTS | | | [...] GONZALEZ | [address] | [place], [place] | | | KAILYN MAZA OF CARE | [address] | [address] | | | TESTS | | | [...] MARQUAM | [address] | [place], [place] | | | KAILYN MAZA OF JOHN | [address] | [address] | | | TESTS | | | [...] LUPEAM | [address] | [place], [place] | | | KAILYN MAZA OF CARE | [facility] | [address] | | | TESTS | | | [...] GONZALEZ | [address] | [place], [place] | | | SHAUNNA POINT OF CARE | [address] | [address] | | | TESTS | | | [...] | + + + + + | [facility] | [address] | [place] [address] | | | SERVICES, CORE | CRYSTAL [...] [facility] | [address] | [place] [address] | | | SERVICES, CORE | PARK [...] [facility] | [address] | [place] [address] | | | SERVICES, TOI | PARK [...] LUPEAM | [address] | [place], [place] | | | KAILYN MAZA OF CARE | [facility] | [address] | | | TESTS | | | [...] + + + + + | [facility] | [address] | [place] [address] | | | SERVICES, TOI | CRYSTAL [...] (H) | 60 - 99 mg/dL | [facility] - | | | GLUCOSE, | [...] GONZALEZ | [address] | [place], [place] | | | SHAUNNA POINT OF CARE | [address] | [address] | | | TESTS | | | [...] MARQUAM | [address] | [place], [place] | | | KAILYN MAZA OF CARE | [address] | [address] | | | TESTS | | | [...] CARLOS | [address] | [place], [place] | | | SHAUNNA POINT OF CARE | [address] | [address] | | | TESTS | | | [...] | + + + + + | [facility] | [address] | [place] [address] | | | SERVICES, CORE | CRYSTAL [...] | + + + + + | [facility] | [address] | [place] [address] | | | SERVICES, CORE | CRYSTAL [...] | + + + + + | [facility] | [address] | [place] [address] | | | SERVICES, CORE | PARK [...] CARLOS | [address] | [place], [place] | | | KAILYN MAZA OF JOHN | [address] | [address] | | | TESTS | | | [...] - CARLOS | [address] | [place], [place] | | | KAILYN MAZA OF CARE | [facility] | [address] | | | TESTS | | | [...] (H) | 60 - 99 mg/dL | [facility] - | | | GLUCOSE, | [...] GONZALEZ | [address] | [place], [place] | | | SHAUNNA POINT OF CARE | [address] | [address] | | | TESTS | | | [...] | + + + + + | [facility] | [address] | [place] [address] | | | SERVICES, CORE | CRYSTAL [...] [facility] | [address] | [place] [address] | | | SERVICES, CORE | PARK [...] + + + + + | [facility] | [address] | [place] [address] | | | TANIA, TOI | PARK [...] + + + | [facility] | [address] | [place] [address] | | | TOI MARIN | CRYSTAL [...] MARQUAM | [address] | [place], [place] | | | KAILYN MAZA OF CARE | [address] | [address] | | | TESTS | | | [...] (H) | 60 - 99 mg/dL | [facility] - | | | GLUCOSE, | [...] GONZALEZ | [address] | [place], [place] | | | KAILYN MAZA OF CARE | [address] | [address] | | | TESTS | | | [...] MARQUAM | [address] | [place], [place] | | | KAILYN MAZA OF CARE | [address] | [address] | | | TESTS | | | [...] | + + + + + | [facility] | [address] | [place] [address] | | | SERVICES, CORE | CRYSTAL [...] [facility] | [address] | [place] [address] | | | SERVICES, CORE | PARK [...] [facility] | [address] | [place] [address] | | | SERVICES, CORE | CRYSTAL [...] + + + + + | [facility] | [address] | [place] [address] | | | SERVICES, CORE | CRYSTAL [...] (H) | 60 - 99 mg/dL | [facility] - | | | GLUCOSE, | [...] | + + + + + | [facility] | [address] | [place], [place] | | | SHAUNNA POINT OF CARE | [address] | [address] | | | TESTS | | | [...] | + + + + + | [facility] | [address] | [place] [address] | | | SERVICES, CORE | CRYSTAL [...] MARQUAM | [address] | [place], [place] | | | KAILYN MAZA OF CARE | [facility] | [address] | | | TESTS | | | [...] - DUNGQUAM | [address] | [place], [place] | | | SHAUNNA POINT OF CARE | [address] | [address] | | | TESTS | | | [...] for children less than 6 months | [facility] | | can be found in the Hemostasis Section general instructions of the | LABORATORY | | [facility] Lab Manual: | SERVICES, CORE | | [email or web address] | | + + + + + + + + | Performing | Address | City/State/Zipcode | Phone Number | | Organization | | | | + + + + + | [facility] | [address] | [place] [address] | | | SERVICES, CORE | PARK [...] - 1.20 U/mL Dalteparin, LMWH: 0.70 | [facility], CORE | | - 1.20 U/mL Tinzaparin, [...] | + + + + + | [facility] | [address] | [place] [address] | | | SERVICES, CORE | PARK [...] | + + + + + | [facility] | [address] | [place] [address] | | | SERVICES, CORE | CRYSTAL [...] [facility] | [address] | [place] [address] | | | SERVICES, CORE | PARK [...] | + + + + + | [facility] | [address] | [place] [address] | | | SERVICES, TOI | [address] | | | + + + + + X-RAY PORTABLE CHEST 1 VIEW (12/11/2012 6:00 AM PDT) + + + + + + | Component | Value | Ref Range | Performed | Pathologist | | | | | At | Signature | + + + + + + | X-RAY | STUDY: AL CHEST 1 VIEW | | | | [...] SHAY | | | | | | RIU 12/11/2012 8:31 AM | | | | | | | | | | + + + + + + + + | Specimen | + + | | + + + +---------+ + + | Performing | Address | City/State/Zipcode | Phone Number | | Organization | | | | + +---------+ + + | [facility] DEPARTMENT OF | | | | [...] (H) | 60 - 99 mg/dL | [facility] - | | | GLUCOSE, | [...] + + + | BR[facility] GON[facility] | [address] | [place], [place] | | | KAILYN MAZA OF [facility] | [address] | [address] | | | TESTS | | | [...] MARQUAM | [address] | [place], [place] | | | KAILYN MAZA OF CARE | [address] | [address] | | | TESTS | | | [...] - CARLOS | [address] | [place], [place] | | | SHAUNNA POINT OF CARE | [address] | [address] | | | TESTS | | | [...] + + + + + | [facility] | [address] | [place] [address] | | | SERVICES, CORE | CRYSTAL [...] | + + + + + | [facility] | [address] | [place] [address] | | | SERVICES, CORE | CRYSTAL [...] + + + + + | [facility] | [address] | [place] [address] | | | SERVICES, CORE | CRYSTAL [...] [facility] | [address] | [place] [address] | | | SERVICES, CORE | PARK [...] + + + + + | [facility] | [address] | [place] [address] | | | SERVICES, CORE | PARK [...] + + + + + | [facility] | [address] | [place] [address] | | | SERVICES, TOI | CRYSTAL [...] MARKATHERINEAM | [address] | [place], [place] | | | KAILYN MAZA OF [facility] | [address] | [address] | | | TESTS | | | [...] CARLOS | [address] | [place], [place] | | | KAILYN MAZA OF [facility] | [address] | [address] | | | TESTS | | | [...] + + + + + | [facility] | [address] | [place] [address] | | | SERVICES, CORE | CRYSTAL [...] MARQUAM | [address] | [place], [place] | | | KAILYN MAZA OF JOHN | [address] | [address] | | | TESTS | | | [...] | | | POC | | | KALIYN MAZA | | | | | | [...] MARQUAM | [address] | [place], [place] | | | KAILYN MAZA OF CARE | [facility] | [address] | | | TESTS | | | [...] | + + + + + | [facility] | [address] | [place] [address] | | | SERVICES, CORE | CRYSTAL [...] MARQUAM | [address] | [place], [place] | | | KAILYN MAZA OF JOHN | [address] | [address] | | | TESTS | | | [...] [facility] | [address] | [place] [address] | | | SERVICES, CORE | PARK [...] [facility] | [address] | [place] [address] | | | SERVICES, CORE | PARK [...] | + + + + + | [facility] | [address] | [place] [address] | | | SERVICES, CORE | CRYSTAL [...] (H) | 60 - 99 mg/dL | [facility] - | | | GLUCOSE, | [...] GONZALEZ | [address] | [place], [place] | | | KAILYN MAZA OF [facility] | [facility] | [address] | | | TESTS | | | [...] LUPEAM | [address] | [place], [place] | | | KAILYN MAZA OF JOHN | [address] | [address] | | | TESTS | | | [...] + + + + + | [facility] | [address] | [place] [address] | | | SERVICES, CORE | CRYSTAL [...] + + + + + | [facility] | [address] | [place] [address] | | | SERVICES, CORE | PARK [...] [facility] | [address] | [place] [address] | | | TOI MARIN | PARK [...] [facility] | [address] | [place] [address] | | | SERVICES, CORE | PARK [...] + + + + + | [facility] | [address] | [place] [address] | | | SERVICES, CORE | CRYSTAL [...] (H) | 60 - 99 mg/dL | [facility] - | | | GLUCOSE, | | [...] GONZALEZ | [address] | [place], [place] | | | SHAUNNA POINT OF CARE | [address] | [address] | | | TESTS | | | | + + + + + X-RAY PORTABLE CHEST 1 VIEW (12/10/2012 5:27 PM PDT) + + + + + + | Component | Value | Ref Range | Performed | Pathologist | | | | | At | Signature | + + + + + + | X-RAY | STUDY:AL CHEST 1 VIEW | | | | [...] [facility] | [address] | [place] [address] | | | SERVICES, CORE | PARK [...] GONZALEZ | [address] | [place], [place] | | | KAILYN MAZA OF [facility] | [address] | [address] | | | TESTS | | | [...] | | 8 CICU room 7 Diagnosis: [id number] Coronary artery disease Indications: | | | [...] blood return. A | | | 5 Macanese Triple lumen Power PICC SOLO catheter was [...] PICC | | | Catheter Lot Number [id number]; There was good blood return from all [...] #) 8 CICU room 7Diagnosis: | | [id number] Coronary artery diseaseIndications: (Select all that apply) [...] non-pulsatile blood return. A 5 | | Macanese Triple lumen Power PICC SOLO catheter was placed using the modified Seldinger | | technique on the third attempt. At the time of insertion, vessel size was appropriate | | for the catheter size. PICC Catheter: A 55cm catheter was used for placement. The | | PICC catheter was trimmed 0cm, remaining catheter length 55 cm. PICC Catheter Lot | | Number [id number]; There was good blood return from all [...] + + + + | XRAY | STUDY:AL CHEST PICC LINE | | | | [...] GONZALEZ | [address] | [place], [place] | | | KAILYN MAZA OF JOHN | [address] | [address] | | | TESTS | | | [...] MARQUAM | [address] | [place], [place] | | | SHAUNNA POINT OF CARE | [address] | [address] | | | TESTS | | | [...] + + + + + | [facility] | [address] | [place] [address] | | | SERVICES, CORE | CRYSTAL [...] (H) | 60 - 99 mg/dL | [facility] - | | | GLUCOSE, | [...] GONZALEZ | [address] | [place], [place] | | | KAILYN MAZA OF CARE | [address] | [address] | | | TESTS | | | [...] | + + + + + | [facility] | [address] | [place] [address] | | | SERVICES, CORE | CRYSTAL [...] MARQUAM | [address] | [place], [place] | | | KAILYN MAZA OF CARE | [address] | [address] | | | TESTS | | | [...] [facility] | [address] | [place], [place] | | | SHA[place]NA POINT OF [facility] | [address] | [address] | | | TESTS | | | | + + + + + X-RAY PORTABLE CHEST 1 VIEW (12/10/2012 5:41 AM PDT) + + + + + + | Component | Value | Ref Range | Performed | Pathologist | | | | | At | Signature | + + + + + + | X-RAY | STUDY: AL CHEST 1 VIEW | | | | [...] MARQUAM | [address] | [place], [place] | | | KAILYN MAZA OF JOHN | [address] | [address] | | | TESTS | | | [...] - MARQUAM | [address] | [place], [place] | | | SHAUNNA POINT OF CARE | [address] | [address] | | | TESTS | | | [...] + + + | [facility] | [address] | [place], [place] | | | [facility]NA PO[facility] OF [facility] | [address] | [address] | | | TESTS | | | [...] | + + + + + | [facility] | [address] | [place] [address] | | | SERVICES, CORE | PARK [...] [facility] | [address] | [place] [address] | | | SERVICES, CORE | CRYSTAL [...] | + + + + + | [facility] | [address] [facility] | [place] [address] | | | SERVICES, CORE | PARK [...] [facility] | [address] | [place] [address] | | | SERVICES, CORE | CRYSTAL [...] + + + + + | [facility] | [address] | [place] [address] | | | SERVICES, CORE | PARK [...] + + + + + | [facility] | [address] | [place] [address] | | | SERVICES, CORE | CRYSTAL [...] [facility] | [address] | [place] | | | KAILYN MAZA OF CARE | [address] | [address] | | | TESTS | | | [...] + + + + + | [facility] | [address] | [place] [address] | | | TANIA, TOI | CRYSTAL [...] [facility] | [address] | [place], [place] | | | KAILYN MAZA OF JOHN | [address] | [address] | | | TESTS | | | [...] GONZALEZ | [address] | [place], [place] | | | SHAUNNA POINT OF CARE | [address] | [address] | | | TESTS | | | [...] [facility] | [address] | [place], [place] | | | HILL, POINT OF CARE | [address] | [address] | | | TESTS | | | [...] [facility] | [address] | [place], [place] | | | KAILYN MAZA OF JOHN | [facility] | [address] | | | TESTS | | | [...] GONZALEZ | [address] | [place], [place] | | | SHAUNNA POINT OF CARE | [address] | [address] | | | TESTS | | | [...] [facility] | [address] | [place], [place] | | | HILL, POINT OF CARE | [address] | [address] | | | TESTS | | | [...] [facility] | [address] | [place] [address] | | | SERVICES, CORE | PARK [...] | + + + + + | [facility] | [address] | [place] [address] | | | SERVICES, CORE | PARK [...] instructions of the | LABORATORY | | [facility] Lab Manual: | SERVICES, CORE | | [email or web address] | | + + + + + + + + | Performing | Address | City/State/Zipcode | Phone Number | | Organization | | | | + + + + + | [facility] | [address] | [place] [address] | | | SERVICES, CORE | PARK [...] | + + + + + | [facility] | [address] | [place] [address] | | | SERVICES, TOI | CRYSTAL [...] [facility] | [address] | [place], [place] | | | KAILYN MAZA OF CARE | [address] | [address] | | | TESTS | | | [...] - CARLOS | [address] | [place], [place] | | | KAILYN MAZA OF CARE | [address] | [address] | | | TESTS | | | [...] GONZALEZ | [address] | [place], [place] | | | KAILYN MAZA OF JOHN | [address] | [address] | | | TESTS | | | [...] [facility] | [address] | [place], [place] | | | SHAUNNA POINT OF CARE | [address] | [address] | | | TESTS | | | [...] WARD | | | | | | ([id number]) on 12/11/2012 | | | | | | 8:39:29 AM | | | | + + + + + + + + | Specimen | + + | | + + + + + | Narrative | Performed At | + + + | Please click | [facility] | | on view image for the detailed interpretation from [employer] results. | CARDIOLOGY | + + + + + + + + | Performing | Address | City/State/Zipcode | Phone Number | | Organization | | | | + + + + + | [facility] | [address] | [place], [place] | | | CARDIOLOGY | [address] | [address] | | + + + + + [...] [facility] | [address] | [place], [place] | | | KAILYN MAZA OF CARE | [address] | [address] | | | TESTS | | | [...] [facility] | [address] | [place], [place] | | | SHAUNNA POINT OF CARE | [address] | [address] | | | TESTS | | | [...] GONZALEZ | [address] | [place], [place] | | | KAILYN MAZA OF JOHN | [address] | [address] | | | TESTS | | | [...] [facility] | [address] | [place], [place] | | | KAILYN MAZA OF CARE | [address] | [address] | | | TESTS | | | [...] LUPEAM | [address] | [place], [place] | | | SHAUNNA POINT OF CARE | [address] | [address] | | | TESTS | | | [...] GONZALEZ | [address] | [place], [place] | | | KAILYN MAZA OF JOHN | [address] | [address] | | | TESTS | | | [...] MARQUAM | [address] | [place], [place] | | | KAILYN MAZA OF CARE | [address] | [address] | | | TESTS | | | | + + + + + X-RAY PORTABLE CHEST 1 VIEW (12/09/2012 5:59 AM PDT) + + + + + + | Component | Value | Ref Range | Performed | Pathologist | | | | | At | Signature | + + + + + + | X-RAY | Exam: AL CHEST 1 VIEW, | | | | [...] GONZALEZ | [address] | [place], [place] | | | SHA[facility]NA POINT [facility] CARE | [address] | [address] | | | TESTS | | | [...] MARQUAM | [address] | [place], [place] | | | HILL, POINT OF CARE | [address] | [address] | | | TESTS | | | [...] MARQUAM | [address] | [place], [place] | | | KAILYN MAZA OF JOHN | [facility] | [address] | | | TESTS | | | [...] GONZALEZ | [address] | [place], [place] | | | [facility] [facility]INT OF [facility] | [address] | [address] | | | TESTS | | | [...] [facility] | [address] | [place] [address] | | | SERVICES, CORE | PARK [...] [facility] | [address] | [place] [address] | | | SERVICES, CORE | CRYSTAL [...] [facility] | [address] | [place] [address] | | | SERVICES, CORE | PARK [...] | + + + + + | [facility] | [address] | [place] [address] | | | SERVICES, CORE | CRYSTAL [...] [facility] | [address] | [place] [address] | | | SERVICES, CORE | PARK [...] + + + + + | [facility] | [address] | [place] [address] | | | SERVICES, CORE | PARK [...] | + + + + + | [facility] | [address] | [place] [address] | | | SERVICES, CORE | PARK [...] CARLOS | [address] | [place], [place] | | | KAILYN MAZA OF JOHN | [address] | [address] | | | TESTS | | | [...] GONZALEZ | [address] | [place], [place] | | | [place] [facility] [facility] | [address] | [address] | | | TESTS | | | [...] (H) | 60 - 99 mg/dL | [facility] - | | | GLUCOSE, | | [...] GONZALEZ | [address] | [place], [place] | | | KAILYN MAZA OF CARE | [address] | [address] | | | TESTS | | | [...] MARKATHERINEAM | [address] | [place], [place] | | | KAILYN MAZA OF CARE | [address] | [address] | | | TESTS | | | [...] GONZALEZ | [address] | [place], [place] | | | [place] [facility] [facility] | [address] | [address] | | | TESTS | | | | + + + + + X-RAY PORTABLE CHEST 1 VIEW (12/08/2012 7:41 PM PDT) + + + + + + | Component | Value | Ref Range | Performed | Pathologist | | | | | At | Signature | + + + + + + | X-RAY | STUDY:AL CHEST 1 VIEW | | | | [...] | | + +---------+ + + | [facility] DEPARTMENT OF | | | | [...] [facility] | [address] | [place] [address] | | | SERVICES, CORE | PARK [...] [facility] | [address] | [place] [address] | | | SERVICES, CORE | PARK [...] + + + + + | [facility] | [address] | [place] [address] | | | TANIA, TOI | CRYSTAL [...] + + + + + | [facility] | [address] | [place] [address] | | | SERVICES, CORE | CRYSTAL [...] [facility] | [address] | [place] [address] | | | TOI MARIN | CRYSTAL [...] BRIDGETTE GONZALEZ | [address] | [place], [place] | | | KAILYN MAZA OF CARE | [address] | [address] | | | TESTS | | | [...] + | [facility] - | [address] | [place] [address] | | | [place] | | | [...] | | Final SMEAR:AFB not | | [facility] | | | | detected CULTURE | [...] + | [facility] - | [address] | [place] [address] | | | [place] | | | | + + + [...] + | [facility] | [address] | [place] [address] | | | [place] | | | | + + + [...] | + + + + + | [facility] - [facility] - | [address] | [place] [address] | | | [facility] | | | | + + + [...] + | [place] | [address] | [place] [address] | | | [place] | | | [...] + | [facility] | [address] | [place] [address] | | | [place] | | | [...] + | [facility] | [address] | [place] [address] | | | [facility] | | | | + + + [...] + | [place] | [address] | [place] [address] | | | [place] | | | | + + + [...] + | [place] | [address] | [place] [address] | | | [place] | | | | + + + [...] [facility] | [address] | [place] [address] | | | SERVICES, | [address] [...] [facility] | [address] | [place] [address] | | | SERVICES, | [address] [...] MARQUAM | [address] | [place], [place] | | | KAILYN MAZA OF CARE | [facility] | [address] | | | TESTS | | | [...] GONZALEZ | [address] | [place], [place] | | | SHAUNNA POINT OF CARE | [address] | [address] | | | TESTS | | | [...] | + + + + + | [facility] | [address] | [place] [address] | | | SERVICES, CORE | CRYSTAL [...] MARQUAM | [address] | [place], [place] | | | SHAUNNA POINT OF CARE | [address] | [address] | | | TESTS | | | [...] [facility] | [address] | [place] [address] | | | SERVICES, CORE | PARK [...] - CARLOS | [address] | [place], [place] | | | KAILYN MAZA OF [facility] | [address] | [address] | | | TESTS | | | | + + + + + X-RAY PORTABLE CHEST 1 VIEW (12/08/2012 5:49 AM PDT) + + + + + + | Component | Value | Ref Range | Performed | Pathologist | | | | | At | Signature | + + + + + + | X-RAY | AL CHEST 1 VIEW, | | | | [...] MARQUAM | [address] | [place], [place] | | | KAILYN MAZA OF CARE | [address] | [address] | | | TESTS | | | [...] for children less than 6 months | [facility] | | can be found in the Hemostasis Section general instructions of the | LABORATORY | | [facility] Lab Manual: | TOI MARIN | | [email or web address] | | + + + + + + + + | Performing | Address | City/State/Zipcode | Phone Number | | Organization | | | | + + + + + | [facility] | [address] | [place] [address] | | | TOI MARIN | CRYSTAL [...] + + + + + | [facility] | [address] | [place] [address] | | | TOI MARIN | CRYSTAL [...] DUNGQUAM | [address] | [place], [place] | | | KAILYN MAZA OF [facility] | [address] | [address] | | | TESTS | | | [...] | + + + + + | [facility] | [address] | [place] [address] | | | SERVICES, CORE | CRYSTAL [...] [facility] | [address] | [place] [address] | | | SERVICES, CORE | PARK [...] | + + + + + | [facility] | [address] | [place] [address] | | | SERVICES, CORE | CRYSTAL [...] [facility] | [address] | [place] [address] | | | SERVICES, CORE | PARK [...] + + + + + | [facility] | [address] | [place] [address] | | | SERVICES, CORE | CRYSTAL [...] (H) | 60 - 99 mg/dL | [facility] - | | | GLUCOSE, | [...] GONZALEZ | [address] | [place], [place] | | | KAILYN MAZA OF CARE | [address] | [address] | | | TESTS | | | [...] MARQUAM | [address] | [place], [place] | | | KAILYN MAZA OF CARE | [address] | [address] | | | TESTS | | | [...] LUPEAM | [address] | [place], [place] | | | SHAUNNA POINT OF CARE | [facility] | [address] | | | TESTS | | | [...] + + + + + | [facility] | [address] [facility] [facility] | [place] [address] | | | SERVICES, CORE | CRYSTAL [...] (H) | 60 - 99 mg/dL | [facility] - | | | GLUCOSE, | [...] + + + | BR[facility]ON[facility] | [address] | [place], [place] | | | SHAUNNA POINT OF CARE | [address] | [address] | | | TESTS | | | [...] MARQUAM | [address] | [place], [place] | | | KAILYN MAZA OF CARE | [facility] | [address] | | | TESTS | | | [...] - MARQUAM | [address] | [place], [place] | | | SHAUNNA POINT OF CARE | [address] | [address] | | | TESTS | | | [...] GONZALEZ | [address] | [place], [place] | | | SHAUNNA POINT OF CARE | [address] | [address] | | | TESTS | | | [...] Manual: | SERVICES, CORE | | [email or web address] | | + + + + + + + + | Performing | Address | City/State/Zipcode | Phone Number | | Organization | | | | + + + + + | [facility] | [address] [facility] [address] | [place] [address] | | | TANIA, TOI | CRYSTAL [...] [facility] | [address] | [place] [address] | | | SERVICES, CORE | PARK [...] + + + + + | [facility] | [address] | [place] [address] | | | SERVICES, CORE | CRYSTAL [...] (H) | 60 - 99 mg/dL | [facility] - | | | GLUCOSE, | [...] GONZALEZ | [address] | [place], [place] | | | KAILYN MAZA OF CARE | [address] | [address] | | | TESTS | | | [...] MARQUAM | [address] | [place], [place] | | | SHAUNNA POINT OF CARE | [address] | [address] | | | TESTS | | | [...] MARQUAM | [address] | [place], [place] | | | KAILYN MAZA OF JOHN | [address] | [address] | | | TESTS | | | [...] GONZALEZ | [address] | [place], [place] | | | KAILYN MAZA OF CARE | [address] | [address] | | | TESTS | | | [...] | + + + + + | [facility] | [address] [facility] [facility] | [place] [address] | | | TANIA, TOI | CRYSTAL [...] MARQUAM | [address] | [place], [place] | | | H[place], POINT OF CARE | [address] | [address] | | | TESTS | | | [...] MARQUAM | [address] | [place], [place] | | | KAILYN MAZA OF JOHN | [address] | [address] | | | TESTS | | | [...] GONZALEZ | [address] | [place], [place] | | | KAILYN MAZA OF CARE | [address] | [address] | | | TESTS | | | [...] [facility] | [address] | [place] [address] | | | SERVICESTOI | [address] [...] [facility] | [address] | [place] [address] | | | SERVICES, CORE | PARK [...] for children less than 6 months | [facility] | | can be found in the Hemostasis Section general instructions of the | LABORATORY | | [facility] Lab Manual: | SERVICES, CORE | | [email or web address] | | + + + + + + + + | Performing | Address | City/State/Zipcode | Phone Number | | Organization | | | | + + + + + | [facility] | [address] | [place] [address] | | | SERVICES, CORE | PARK [...] | + + + + + | [facility] | [address] | [place] [address] | | | SERVICES, CORE | PARK [...] | + + + + + | [facility] | [address] | [place] [address] | | | SERVICES, TOI | CRYSTAL [...] | 97.8 | 92.0 - 98.0 | [facility] | | | ARTERIAL | | [...] + + + + + | [facility] | [address] | [place] [address] | | | SERVICES, CORE | PARK [...] - MARQUAM | [address] | [place], [place] | | | [place], [facility] [facility] | [address] | [address] | | | TESTS | | | | + + + + + X-RAY PORTABLE CHEST 1 VIEW (12/07/2012 6:14 AM PDT) + + + + + + | Component | Value | Ref Range | Performed | Pathologist | | | | | At | Signature | + + + + + + | X-RAY | STUDY: AL CHEST 1 VIEW | | | | [...] [facility] | [address] | [place] [address] | | | TOI MARIN | PARK [...] - LUPEAM | [address] | [place], [place] | | | [place] [facility] | [address] | [address] | | | TESTS | | | [...] | + + + + + | [facility] | [address] | [place] [address] | | | SERVICES, CORE | PARK [...] | + + + + + | [facility] | [address] | [place] [address] | | | TANIA, CORE | CRYSTAL [...] + + + + + | [facility] | [address] | [place] [address] | | | TOI MARIN | CRYSTAL [...] (H) | 60 - 99 mg/dL | [facility] - | | | GLUCOSE, | [...] CARLOS | [address] | [place], [place] | | | SHAUNNA POINT OF CARE | [address] | [address] | | | TESTS | | | [...] CARLOS | [address] | [place], [place] | | | KAILYN MAZA OF JOHN | [facility] | [address] | | | TESTS | | | [...] + + + + + | [facility] | [address] | [place] [address] | | | SERVICES, TOI | PARK [...] CARLOS | [address] | [place], [place] | | | SHAUNNA POINT OF CARE | [facility] | [address] | | | TESTS | | | [...] + + | [facility] | [address] | [place] [address] | | | TANIA, TOI | CRYSTAL [...] + + + + + | [facility] | [address] | [place] [address] | | | SERVICES, CORE | PARK [...] | + + + + + | [facility] | [address] | [place] [address] | | | SERVICES, CORE | CRYSTAL [...] MARQUAM | [address] | [place], [place] | | | KAILYN MAZA OF JOHN | [address] | [address] | | | TESTS | | | [...] | + + + + + | [facility] | [address] | [place] [address] | | | SERVICES, CORE | CRYSTAL [...] MARQUAM | [address] | [place], [place] | | | KAILYN MAZA OF CARE | [address] | [address] | | | TESTS | | | [...] [facility] | [address] | [place] [address] | | | SERVICES, CORE | PARK [...] | + + + + + | [facility] | [address] | [place] [address] | | | TOI MARIN | CRYSTAL [...] [facility] | [address] | [place] [address] | | | SERVICES, CORE | PARK [...] | + + + + + | [facility] | [address] | [place] [address] | | | SERVICES, CORE | CRYSTAL [...] [facility] | [address] | [place] [address] | | | SERVICES, CORE | PARK [...] + + + + + | [facility] | [address] | [place] [address] | | | SERVICES, CORE | PARK [...] | + + + + + | [facility] | [address] | [place] [address] | | | TANIA, TOI | CRYSTAL [...] [facility] | [address] | [place] [address] | | | SERVICES, CORE | CRYSTAL [...] WARD | | | | | | ([id number]) on 12/08/2012 | | | | | | 9:53:09 PM | | | | + + + + + + + + | Specimen | + + | | + + + + + | Narrative | Performed At | + + + | Please click | [facility] | | on view image for the detailed interpretation from [employer] results. | CARDIOLOGY | + + + + + + + + | Performing | Address | City/State/Zipcode | Phone Number | | Organization | | | | + + + + + | [facility] | [address] | [place], [place] | | | CARDIOLOGY | [address] | [address] | | + + + + + [...] | + + + + + | [facility] | [address] | [place] [address] | | | [facility] | [address] | | | + + + + + OPERATION RECORD (12/06/2012 2:42 PM PDT) + + | Transcriptions | + + | Helen Gee MD - 12/06/2012 7:20 AM PDT Date: 12/04/2012ttending | | Surgeon: Narendra Lunsford M.D.Head Of Sales And Marketing(s): Helen Alberts | | MARCIA Geereoperative Diagnosis(es):Postoperative [...] present for the procedure.Ladarius Vaughan M.D.JONNATHAN / [id number] / | | [id number] / [id number] / T: 12/06/2012 | |placed a sternal [...] | | | |CJW / HS | |[id number] / [id number] / [id number] / | | | | | + [...] | + + + + + | [facility] | [address] | [place] [address] | | | SERVICES, CORE | CRYSTAL [...] | + + + + + | [facility] | [address] | [place] [address] | | | SERVICES, CORE | PARK [...] [facility] | [address] | [place] [address] | | | SERVICES, CORE | PARK [...] [facility] | [address] | [place] [address] | | | SERVICES, CORE | PARK [...] | + + + + + | [facility] | [address] | [place] [address] | | | SERVICES, CORE | CRYSTAL [...] [facility] | [address] | [place] [address] | | | SERVICES, CORE | PARK [...] | + + + + + | [facility] | [address] | [place] [address] | | | SERVICES, CORE | CRYSTAL [...] + + + + + | [facility] | [address] | [place] [address] | | | SERVICES, CORE | PARK [...] [facility] POWE[facility] | [address] | [place] [address] | | | SERVICES, TOI | CRYSTAL [...] | + + + + + | [facility] | [address] | [place] [address] | | | SERVICES, CORE | PARK [...] [facility] | [address] | [place] [address] | | | SERVICES, CORE | PARK [...] + + + + + | [facility] | [address] | [place] [address] | | | TANIA, CORE | PARK [...] GONZALEZ | [address] | [place], [place] | | | [place] [facility] | [address] | [address] | | | TESTS | | | [...] [facility] | [address] | [place] [address] | | | SERVICES, CORE | CRYSTAL [...] + + + + + | [facility] | [address] | [place] [address] | | | SERVICES, CORE | [address] | | | + + + + + 12 LEAD ECG (12/06/2012 2:33 AM PDT) + + + + + + | Component | Value | Ref Range | Performed | Pathologist | | | | | At | Signature | + + + + + + | VENTRICULAR | 122 | BPM | [facility] | | | RATE | | [...] | | | | | HEIDI CASTILLO ([id number]) | | | | | | on 12/06/2012 3:35:00 PM | | | | + + + + + + + + | Specimen | + + | | + + + + + | Narrative | Performed At | + + + | Please click | [facility] | | on view image for the detailed interpretation from [employer] results. | CARDIOLOGY | + + + + + + + + | Performing | Address | City/State/Zipcode | Phone Number | | Organization | | | | + + + + + | [facility] | [address] | [place], [place] | | | CARDIOLOGY | [address] | [address] | | + + + + + [...] [facility] | [address] | [place] [address] | | | SERVICES, CORE | [address]ARK [...] [facility] | [address] | [place] [address] | | | SERVICES, CORE | [address] | | | + + + [...] | + + + + + | [facility] | [address] | [place] [address] | | | SERVICES, [facility] | [address] | | | + [...] [facility] | [address] | [place] [address] | | | SERVICES, CORE | [address]ARK [...] | + + + + + | [facility] | [address] | [place] [address] | | | SERVICES, CORE | CRYSTAL [...] MARQUAM | [address] | [place], [place] | | | SHA[facility]NA POINT OF CARE | [address] | [address] | | | TESTS | | | [...] - CARLOS | [address] | [place], [place] | | | SHAUNNA POINT OF CARE | [address] | [address] | | | TESTS | | | [...] [facility] | [address] | [place] [address] | | | SERVICES, CORE | PARK [...] [facility] | [address] | [place] [address] | | | SERVICES, CORE | PARK [...] | + + + + + | [facility] | [address] | [place] [address] | | | SERVICES, CORE | PARK [...] | + + + + + | [facility] | [address] | [place] [address] | | | SERVICES, CORE | PARK [...] [facility] | [address] | [place] [address] | | | SERVICES, CORE | [address]ARK [...] [facility] | [address] | [place] [address] | | | SERVICES, CORE | CRYSTAL [...] + + + + + | [facility] | [address] | [place] [address] | | | TOI MARIN | CRYSTAL [...] (H) | 60 - 99 mg/dL | [facility] - | | | GLUCOSE, | [...] + + | [facility] | [address] | [place], [place] | | | [facility] | [address] | [address] | | | TESTS | | | [...] [facility] | [address] | [place] [address] | | | SERVICES, CORE | PARK [...] [facility] | [address] | [place] [address] | | | SERVICES, TOI | PARK [...] | + + + + + | [facility] | [address] | [place] [address] | | | SERVICES, CORE | CRYSTAL [...] [facility] | [address] | [place] [address] | | | SERVICES, CORE | PARK [...] [facility] | [address] | [place] [address] | | | SERVICES, CORE | PARK [...] [facility] | [address] | [place], [place] | | | KAILYN MAZA OF CARE | [facility] | [address] | | | TESTS | | | [...] G[facility] | [address] | [place], [place] | | | KAILYN MAAZ OF CARE | [address] | [address] | | | TESTS | | | [...] MARKATHERINE[facility] | [address] | [place], [place] | | | KAILYN MAZA OF JOHN | [address] | [address] | | | TESTS | | | [...] | + + + + + | [facility] | [address] | [place] [address] | | | SERVICES, CORE | CRYSTAL [...] [facility] | [address] | [place] [address] | | | SERVICES, CORE | PARK [...] [facility] | [address] | [place] [address] | | | SERVICES, CORE | PARK [...] - [facility] | [address] | [place], [place] | | | SHAUNNA [facility] | [address] | [address] | | | TESTS | | | [...] | + + + + + | [facility] | [address] | [place] [address] | | | SERVICES, CORE | CRYSTAL [...] | + + + + + | [facility] | [address] | [place] [address] | | | SERVICES, CORE | [address] | | | + + + + + X-RAY PORTABLE CHEST 1 VIEW (12/05/2012 7:56 AM PDT) + + + + + + | Component | Value | Ref Range | Performed | Pathologist | | | | | At | Signature | + + + + + + | X-RAY | STUDY: AL CHEST 1 VIEW | | | | [...] - [facility] | [address] | [place], [place] | | | KAILYN MAZA OF CARE | [address] | [address] | | | TESTS | | | [...] + + + | [facility] | [address] | [place], [place] | | | [facility] | [address] | [address] | | | TESTS | | | [...] [facility] | [address] | [place], [place] | | | KAILYN MAZA OF JOHN | [address] | [address] | | | TESTS | | | [...] [facility] | [address] | [place] [address] | | | SERVICES, CORE | CRYSTAL [...] [facility] | [address] | [place] [address] | | | SERVICES, CORE | PARK [...] | + + + + + | [facility] | [address] | [place] [address] | | | SERVICES, CORE | CRYSTAL [...] + + | [facility] | [address] [facility] | [place] [address] | | | SERVICES, CORE | PARK [...] [facility] | [address] | [place] [address] | | | SERVICES, CORE | PARK [...] + + + + + | [facility] | [address] | [place] [address] | | | SERVICES, CORE | CRYSTAL [...] GONZALEZ | [address] | [place], [place] | | | SHA[facility]NA POINT [facility]ARE | [address] | [address] | | | TESTS | | | [...] + + + | Please click | [facility] | | on view image for the detailed interpretation from [employer] results. | CARDIOLOGY | + + + + + + + + | Performing | Address | City/State/Zipcode | Phone Number | | Organization | | | | + + + + + | [facility] | [address] | [place], [place] | | | CARDIOLOGY | [address] | [address] | | + + + + + [...] | + + + + + | [facility] | [address] | [place] [address] | | | SERVICES, CORE | CRYSTAL [...] [facility] | [address] | [place], [place] | | | [facility] | [address] | [address] | | | TESTS | | | [...] [facility] | [address] | [place], [place] | | | [facility]NA POINT [facility] CARE | [address] | [address] | | | TESTS | | | [...] + + + | [facility] | [address] | [place], [place] | | | KAILYN [facility] | [address] | [address] | | | TESTS | | | [...] [facility] | [address] | [place] [address] | | | SERVICES, CORE | CRYSTAL [...] [facility] | [address] | [place] [address] | | | TOI MARIN | CRYSTAL [...] | | | | | | Radiologists: YAAN | | | | | | TIGRE [...] | | + +---------+ + + | [facility] DEPARTMENT OF | | | | [...] GONZALEZ | [address] | [place], [place] | | | KAILYN [facility] | [address] | [address] | | | TESTS | | | [...] [facility] | [address] | [place] [address] | | | SERVICES, CORE | CRYSTAL [...] [facility] | [address] | [place] [address] | | | SERVICES, CORE | PARK [...] | + + + + + | [facility] | [address] | [place] [address] | | | SERVICES, TOI | PARK [...] [facility] | [address] | [place], [place] | | | KAILYN [facility] | [address] | [address] | | | TESTS | | | [...] | + + + + + | [facility] | [address] | [place] [address] | | | TOI MARIN | CRYSTAL [...] | | + +---------+ + + | [facility] DEPARTMENT OF | | | | [...] | + + + + + | [facility] | [address] | [place] [address] | | | SERVICES, CORE | PARK [...] | + + + + + | [facility] | [address] | [place] [address] | | | SERVICES, CORE | CRYSTAL [...] + + + + + | [facility] | [address] | [place] [address] | | | SERVICES, CORE | CRYSTAL [...] [facility] | [address] | [place] [address] | | | SERVICES, CORE | PARK [...] | + + + + + | [facility] | [address] | [place] [address] | | | SERVICES, CORE | [address] | | | + + + + + MAGNESIUM, PLASMA (12/04/2012 7:01 PM PDT) + +---------+ + + + | Component | Value | Ref Range | Performed | Pathologist | | | | | At | Signature | + +---------+ + + + | MAGNESIUM,P | 3.3 (H) | 1.8 - 2.5 mg/dL | [facility] | | | ELINAMA | | [...] + + + + + | [facility] | [address] | [place] [address] | | | SERVICES, CORE | PARK [...] [facility] | [address] | [place] [address] | | | SERVICES, CORE | PARK [...] [facility] | [address] | [place] [address] | | | SERVICES, | [address] [...] [facility] | [address] | [place] [address] | | | SERVICES, | [address] [...] + + + + + | [facility] | [address] | [place] [address] | | | TOI MARIN | CRYSTAL [...] + + + + | PRODUCT | [id number] | | [facility] | | | UNIT [...] + + + + | BLOOD | 16533 | | [facility] | | | PRODUCT [...] + + + + + | [facility] DEPARTMENT | [address] | [place] [address] | | | PATHOLOGY | [address] [...] + + + + | PRODUCT | [id number] | | [facility] | | | UNIT [...] + + + + | BLOOD | 58524 | | [facility] | | | PRODUCT [...] + + + + + | [facility] DEPARTMENT OF | [address] | [place] [address] | | | PATHOLOGY | [address] [...] + + + + | PRODUCT | [id number] | | [facility] | | | UNIT [...] + + + + | BLOOD | 93429 | | [facility] | | | PRODUCT [...] + + + + + | [facility] DEPARTMENT OF | [address] | [place] [address] | | | PATHOLOGY | [address] [...] + + + + | PRODUCT | [id number] | | [facility] | | | UNIT [...] + + + + | BLOOD | 00763 | | [facility] | | | PRODUCT [...] DEPARTMENT OF | [address] | [place] [address] | | | PATHOLOGY | [address] [...] + + + + | PRODUCT | [id number] | | [facility] | | | UNIT [...] + + + + | BLOOD | 88467 | | [facility] | | | PRODUCT [...] + + + + + | [facility] DEPARTMENT OF | [address] | [place] [address] | | | PATHOLOGY | [address] [...] + + + + | PRODUCT | [id number] | | [facility] | | | UNIT [...] + + + + | BLOOD | 16166 | | [facility] | | | PRODUCT [...] | [address] | [place] [address] | | | PATHOLOGY | [address] [...] + + + + | PRODUCT | [id number] | | [facility] | | | UNIT [...] + + + + | BLOOD | 43833 | | [facility] | | | PRODUCT [...] | + + + + + | [facility][1] | [address] | [place] [address] | | | PATHOLOGY | [address] [...] + + + + | PRODUCT | [id number] | | [facility] | | | UNIT [...] + + + + | BLOOD | 79473 | | [facility] | | | PRODUCT [...] DEPARTMENT OF | [address] | [place] [address] | | | PATHOLOGY | [address] [...] + + + + | PRODUCT | [id number] | | [facility] | | | UNIT [...] + + + + | BLOOD | 87660 | | [facility] | | | PRODUCT [...] | + + + + + | [facility][1] | [address] | [place] [address] | | | PATHOLOGY | [address] [...] + + + + | PRODUCT | [id number] | | [facility] | | | UNIT [...] + + + + | BLOOD | 73924 | | [facility] | | | PRODUCT [...] DEPARTMENT OF | [address] | [place] [address] | | | PATHOLOGY | [address] [...] + + + + | PRODUCT | [id number] | | [facility] | | | UNIT [...] + + + + | BLOOD | 45823 | | [facility] | | | PRODUCT [...] + + + + + | [facility] DEPARTMENT OF | [address] | [place] [address] | | | PATHOLOGY | [address] [...] + + + + | PRODUCT | [id number] | | [facility] | | | UNIT [...] + + + + | BLOOD | 23343 | | [facility] | | | PRODUCT [...] | [address] | [place] [address] | | | PATHOLOGY | [address] [...] + + + + | PRODUCT | [id number] | | [facility] | | | UNIT [...] + + + + | BLOOD | 97717 | | [facility] | | | PRODUCT [...] [facility] | [address] | [place] [address] | | | PATHOLOGY | [address] [...] + + + + | PRODUCT | [id number] | | [facility] | | | UNIT [...] + + + + | BLOOD | 69024 | | [facility] | | | PRODUCT [...] DEPARTMENT OF | [address] | [place] [address] | | | PATHOLOGY | [address] [...] [facility] | [address] | [place], [place] | | | THERAPY | [address] | [address] | | + + + + + [...] + + | [facility] | [address] | [place], [place] | | | THERAPY | [address] | [address] | | + + + + + [...] [facility] | [address] | [place], [place] | | | THERAPY | [address] | [address] | | + + + + + [...] [facility] | [address] | [place], [place] | | | THERAPY | [address] | [address] | | + + + + + [...] [facility] | [address] | [place], [place] | | | THERAPY | [address] | [address] | | + + + + + [...] [facility] | [address] | [place], [place] | | | THERAPY | [address] | [address] | | + + + + + [...] [facility] | [address] | [place] [address] | | | SERVICES, CORE | CRYSTAL [...] [facility] | [address] | [place] [address] | | | SERVICES, CORE | [address] [...] + + + + + | [facility] | [address] | [place] [address] | | | SERVICES, CORE | [address] [...] | 4.60 (H) | <0.80 ng/mL | [facility] | | | | | | LABORATORY [...] [facility] | [address] | [place] [address] | | | SERVICES, CORE | CRYSTAL [...] [facility] | [address] | [place], [place] | | | THERAPY | [address] | [address] | | + + + + + [...] [facility] | [address] | [place], [place] | | | THERAPY | [address] | [address] | | + + + + + [...] | [facility] | [address] | [place], [place] | | | THERAPY | [address] | [address] | | + + + + + [...] [facility] | [address] | [place], [place] | | | THERAPY | [address] | [address] | | + + + + + [...] [facility] | [address] | [place], [place] | | | THERAPY | [address] | [address] | | + + + + + [...] [facility] | [address] | [place], [place] | | | THERAPY | [address] | [address] | | + + + + + [...] [facility] | [address] | [place], [place] | | | KAILYN [facility] | [address] | [address] | | | TESTS | | | [...] [facility] | [address] | [place] [address] | | | SERVICES, CORE | PARK [...] [facility] | [address] | [place] [address] | | | SERVICES, CORE | [address] [...] + + + + + | [facility] | [address] | [place] [address] | | | SERVICES, CORE | [address] | | | + + + + + MAGNESIUM, PLASMA (12/04/2012 3:37 PM PDT) + +---------+ + + + | Component | Value | Ref Range | Performed | Pathologist | | | | | At | Signature | + +---------+ + + + | MAGNESIUM,P | 3.2 (H) | 1.8 - 2.5 mg/dL | [facility] | | | LASMA | | | [...] | + + + + + | [facility] | [address] | [place] [address] | | | SERVICES, CORE | CRYSTAL [...] | + + + + + | [facility] | [address] | [place] [address] | | | SERVICES, CORE | CRYSTAL [...] [facility] | [address] | [place], [place] | | | THERAPY | [address] | [address] | | + + + + + [...] + + | [facility] | [address] | [place], [place] | | | THERAPY | [address] | [address] | | + + + + + [...] [facility] | [address] | [place], [place] | | | THERAPY | [address] | [address] | | + + + + + [...] [facility] | [address] | [place], [place] | | | THERAPY | [address] | [address] | | + + + + + [...] [facility] | [address] | [place], [place] | | | THERAPY | [address] | [address] | | + + + + + [...] [facility] | [address] | [place], [place] | | | THERAPY | [address] | [address] | | + + + + + X-RAY PORTABLE CHEST 1 VIEW (12/04/2012 3:25 PM PDT) + + + + + + | Component | Value | Ref Range | Performed | Pathologist | | | | | At | Signature | + + + + + + | X-RAY | STUDY: AL CHEST 1 VIEW | | | | [...] [facility] | [address] | [place], [place] | | | THERAPY | [facility] | [address] | | + + + + + [...] [facility] | [address] | [place], [place] | | | THERAPY | [address] | [address] | | + + + + + [...] [facility] | [address] | [place], [place] | | | THERAPY | [address] | [address] | | + + + + + [...] [facility] | [address] | [place], [place] | | | THERAPY | [address] | [address] | | + + + + + [...] [facility] | [address] | [place], [place] | | | THERAPY | [facility] | [address] | | + + + + + [...] [facility] | [address] | [place], [place] | | | THERAPY | [address] | [address] | | + + + + + [...] + + + + + | [facility] | [address] | [place] [address] | | | SERVICES, TOI | [address] | | | + + + + + X-RAY PORTABLE CHEST 1 VIEW (12/04/2012 9:58 AM PDT) + + + + + + | Component | Value | Ref Range | Performed | Pathologist | | | | | At | Signature | + + + + + + | X-RAY | EXAM: AL CHEST 1 VIEW | | | | [...] The | | | | | | [place]-Jeremi catheterhas | | | | | | [...] | | + +---------+ + + | [facility] DEPARTMENT OF | | | | [...] | + + + + + | [facility] | [address] | [place] [address] | | | SERVICES, CORE | [address] [...] + + + + + | [facility] | [address] | [place] [address] | | | SERVICES, CORE | [address] | | | + + + + + MAGNESIUM, PLASMA (12/04/2012 8:37 AM PDT) + +---------+ + + + | Component | Value | Ref Range | Performed | Pathologist | | | | | At | Signature | + +---------+ + + + | MAGNESIUM,P | 2.6 (H) | 1.8 - 2.5 mg/dL | [facility] | | | [place] | | | [...] | + + + + + | [facility] | [address] | [place] [address] | | | SERVICES, CORE | [address] [...] | + + + + + | [facility] | [address] | [place] [address] | | | SERVICES, CORE | CRYSTAL [...] | + + + + + | [facility] | [address] | [place] [address] | | | SERVICES, CORE | [address] [...] | + + + + + | [facility] | [address] | [place] [address] | | | TOI MARIN | CRYSTAL [...] | [address] | [place] | | | [facility] | [address] | [address] | | | TESTS | | | [...] + + + | Please click | [facility] DEPT OF | | on view image for the detailed interpretation from [employer] results. | CARDIOLOGY | + + + + + + + + | Performing | Address | City/State/Zipcode | Phone Number | | Organization | | | | + + + + + | [facility] | [address] | [place], [place] | | | CARDIOLOGY | [address] | [address] | | + + + + + [...] [facility] | [address] | [place], [place] | | | SHAUNNA POINT OF CARE | [facility] | [address] | | | TESTS | | | [...] [facility] | [address] | [place] [address] | | | SERVICES, CORE | [address] [...] | + + + + + | [facility] | [address] | [place] [address] | | | TANIA, TOI | [address] [...] (H) | 60 - 99 mg/dL | [facility] - | | | GLUCOSE, | [...] GONZALEZ | [address] | [place], [place] | | | SHAUNNA POINT OF CARE | [address] | [address] | | | TESTS | | | [...] | + + + + + | [facility] | [address] | [place] [address] | | | SERVICES, CORE | CRYSTAL [...] | + + + + + | [facility] | [address] | [place] [address] | | | SERVICES, CORE | PARK [...] [facility] | [address] | [place], [place] | | | KAILYN MAZA OF JOHN | [address] | [address] | | | TESTS | | | [...] + + + + + | [facility] | [address] | [place] [address] | | | TANIA, TOI | [address]ST[address] [...] [facility] | [address] | [place] [address] | | | SERVICES, CORE | [address] [...] + + + + + | [facility] | [address] | [place] [address] | | | SERVICES, CORE | [address]ARK [...] (H) | 0.90 - 1.20 INR | [facility] | | | | | | [...] + + + + + | [facility] | [address] | [place] [address] | | | TANIA, CORE | [address] | | | + + + + + MAGNESIUM, PLASMA (12/03/2012 4:01 AM PDT) + +-------+ + + + | Component | Value | Ref Range | Performed | Pathologist | | | | | At | Signature | + +-------+ + + + | MAGNESIUM,P | 2.4 | 1.8 - 2.5 mg/dL | [facility] | | | [place] | | | [...] + + + + + | [facility] | [address] | [place] [address] | | | SERVICES, CORE | CRYSTAL [...] (H) | 60 - 99 mg/dL | [facility] - | | | GLUCOSE, | | [...] GONZALEZ | [address] | [place], [place] | | | KAILYN MAZA OF JOHN | [facility] | [address] | | | TESTS | | | [...] | + + + + + | [facility] | [address] | [place] [address] | | | TANIA, TOI | CRYSTAL [...] [facility] | [address] | [place], [place] | | | KAILYN [facility] CARE | [address] | [address] | | | TESTS | | | [...] GONZALEZ | [address] | [place], [place] | | | SHAUNNA POINT OF CARE | [address] | [address] | | | TESTS | | | [...] [facility] | [address] | [place], [place] | | | KAILYN [facility]ARE | [address] | [address] | | | TESTS | | | [...] CARLOS | [address] | [place], [place] | | | [facility] | [address] | [address] | | | TESTS | | | [...] [facility] | [address] | [place] [address] | | | SERVICES, CORE | [address]ARK [...] [facility] | [address] | [place] [address] | | | SERVICES, CORE | [address] [...] | + + + + + | [facility] | [address] | [place] [address] | | | SERVICES, CORE | [address] [...] [facility] | [address] | [place] [address] | | | SERVICES, CORE | [address] [...] + + + + + | [facility] | [address] | [place] [address] | | | TOI MARIN | [address] [...] [facility] | [address] | [place], [place] | | | KAILYN MAZA OF CARE | [facility] | [address] | | | TESTS | | | [...] (H) | 60 - 99 mg/dL | [facility] - | | | GLUCOSE, | [...] CARLOS | [address] | [place], [place] | | | SHAUNNA POINT OF CARE | [address] | [address] | | | TESTS | | | [...] | + + + + + | [facility] | [address] | [place] [address] | | | SERVICES, CORE | CRYSTAL [...] [facility] | [address] | [place], [place] | | | KAILYN MAZA OF JOHN | [address] | [address] | | | TESTS | | | [...] [facility] | [address] | [place], [place] | | | KAILYN MAZA OF CARE | [address] | [address] | | | TESTS | | | [...] + + + + + | [facility] | [address] | [place], [place] | | | KAILYN MAZA OF CARE | [address] | [address] | | | TESTS | | | [...] [facility] | [address] | [place], [place] | | | KAILYN MAZA OF JOHN | [address] | [address] | | | TESTS | | | [...] + + + + + | [facility] | [address] [facility] | [place] [address] | | | TANIA, CORE | [address] [...] + + + + + | [facility] | [address] | [place] [address] | | | SERVICES, CORE | CRYSTAL [...] CARLOS | [address] | [place], [place] | | | KAILYN MAZA OF JOHN | [address] | [address] | | | TESTS | | | [...] [facility] | [address] | [place], [place] | | | KAILYN MAZA OF JOHN | [facility] | [address] | | | TESTS | | | [...] (H) | 60 - 99 mg/dL | [facility] - | | | GLUCOSE, | [...] GONZALEZ | [address] | [place], [place] | | | SHAUNNA POINT OF CARE | [address] | [address] | | | TESTS | | | [...] GONZALEZ | [address] | [place], [place] | | | KAILYN MAZA OF JOHN | [address] | [address] | | | TESTS | | | [...] [facility] | [address] | [place], [place] | | | [facility] | [address] | [address] | | | TESTS | | | [...] | | + +---------+ + + | [facility] DEPARTMENT OF | | | | [...] [facility] | [address] | [place], [place] | | | KAILYN MAZA OF CARE | [address] | [address] | | | TESTS | | | [...] GONZALEZ | [address] | [place], [place] | | | SHAUNNA POINT OF CARE | [address] | [address] | | | TESTS | | | [...] [facility] | [address] | [place] [address] | | | SERVICES, CORE | [address]ARK [...] [facility] | [address] | [place] [address] | | | SERVICES, CORE | [address]ARK [...] [facility] | [address] | [place] [address] | | | SERVICES, CORE | PARK [...] [facility] | [address] | [place] [address] | | | SERVICES, CORE | [address] [...] + + + + + | [facility] | [address] | [place] [address] | | | SERVICES, CORE | [address] [...] (H) | 60 - 99 mg/dL | [facility] - | | | GLUCOSE, | [...] GONZALEZ | [address] | [place], [place] | | | SHAUNNA POINT OF CARE | [address] | [address] | | | TESTS | | | [...] [facility] | [address] | [place], [place] | | | [place], POINT OF CARE | [address] | [address] | | | TESTS | | | [...] GONZALEZ | [address] | [place], [place] | | | KAILYN MAZA OF JOHN | [address] | [address] | | | TESTS | | | [...] | + + + + + | [facility] | [address] | [place] [address] | | | SERVICES, CORE | [address]ARK [...] [facility] | [address] | [place] [address] | | | SERVICES, CORE | [address] [...] + + + + + | [facility] | [address] | [place] [address] | | | SERVICES, CORE | [address]YST[address] [...] (H) | 60 - 99 mg/dL | [facility] - | | | GLUCOSE, | [...] GONZALEZ | [address] | [place], [place] | | | KAILYN MAZA OF CARE | [address] | [address] | | | TESTS | | | [...] [facility] | [address] | [place], [place] | | | SHAUNNA POINT OF CARE | [address] | [address] | | | TESTS | | | [...] [facility] | [address] | [place], [place] | | | KAILYN MAZA OF JOHN | [address] | [address] | | | TESTS | | | [...] GONZALEZ | [address] | [place], [place] | | | KAILYN MAZA OF JOHN | [address] | [address] | | | TESTS | | | [...] MARKATHERINEAM | [address] | [place] | | | [facility] | [address] | [address] | | | TESTS | | | [...] MARQUAM | [address] | [place], [place] | | | KAILYN MAZA [facility] | [address] | [address] | | | TESTS | | | [...] GONZALEZ | [address] | [place], [place] | | | KAILYN MA[facility] | [address] | [address] | | | TESTS | | | [...] | + + + + + | [facility] | [address] [facility] [address] | [place] [address] | | | SERVICES, CORE | CRYSTAL [...] [facility] | [address] | [place] [address] | | | SERVICES, CORE | PARK [...] | + + + + + | [facility] | [address] | [place] [address] | | | SERVICES, CORE | CRYSTAL [...] MARQUAM | [address] | [place], [place] | | | [facility] | [address] | [address] | | | TESTS | | | | + + + + + X-RAY PORTABLE CHEST 1 VIEW (11/30/2012 11:23 AM PST) + + + + + + | Component | Value | Ref Range | Performed | Pathologist | | | | | At | Signature | + + + + + + | X-RAY | STUDY: AL CHEST 1 VIEW | | | | [...] | | + +---------+ + + | [facility] DEPARTMENT OF | | | | [...] GONZALEZ | [address] | [place], [place] | | | KAILYN MAZA OF [facility] | [address] | [address] | | | TESTS | | | [...] | | | Final CULTURE | | [place] | | | | RESULT:No growth (<1000 [...] + | [facility] | [address] | [place] [address] | | | [place] | | | [...] [facility] | [address] | [place] [address] | | | SERVICES, CORE | PARK [...] [facility] | [address] | [place] [address] | | | SERVICES, CORE | CRYSTAL [...] | + + + + + | [facility] | [address] | [place] [address] | | | SERVICES, CORE | CRYSTAL [...] | + + + + + | [facility] | [address] | [place] [address] | | | SERVICES, CORE | CRYSTAL [...] | | | Final CULTURE | | [place] | | | | RESULT:No growth at [...] + | [facility] | [address] | [place] [address] | | | [place] | | | | + + + [...] | + + + + + | [facility] | [address] | [place] [address] | | | SERVICES, TOI | CRYSTAL [...] | + + + + + | [facility] | [address] | [place] [address] | | | TANIA, TOI | CRYSTAL [...] (H) | 60 - 99 mg/dL | [facility] - | | | GLUCOSE, | [...] MARQUAM | [address] | [place], [place] | | | KAILYN MAZA OF [facility] | [facility] | [address] | | | TESTS | | | [...] GONZALEZ | [address] | [place], [place] | | | [facility] | [address] | [address] | | | TESTS | | | [...] IJ | | | | | | [place]i catheter, | | | | | | [...] MARQUAM | [address] | [place], [place] | | | [facility] | [address] | [address] | | | TESTS | | | [...] | + + + + + | [facility] | [address] | [place] [address] | | | SERVICES, CORE | CRYSTAL [...] MARKATHERINEAM | [address] | [place] | | | [facility] | [address] | [address] | | | TESTS | | | [...] + + + + + | [facility] | [address] | [place] [address] | | | SERVICES, TOI | PARK [...] MARKATHERINEAM | [address] | [place], [place] | | | KAILYN MAZA OF JOHN | [facility] | [address] | | | TESTS | | | [...] (H) | 60 - 99 mg/dL | [facility] - | | | GLUCOSE, | [...] + + | [facility] | [address] | [place], [place] | | | KAILYN MAZA OF [facility] | [address] | [address] | | | TESTS | | | [...] + + + + + | [facility] | [address] | [place] [address] | | | SERVICES, CORE | PARK [...] | + + + + + | [facility] | [address] | [place] [address] | | | SERVICES, TOI | CRYSTAL [...] [facility] | [address] | [place] [address] | | | SERVICES, CORE | PARK [...] [facility] | [address] | [place] [address] | | | TOI MARIN | CRYSTAL [...] LUPEAM | [address] | [place], [place] | | | [facility] | [address] | [address] | | | TESTS | | | [...] | + + + + + | [facility] | [address] | [place] [address] | | | SERVICES, CORE | CRYSTAL [...] [facility] | [address] | [place] [address] | | | TOI MARIN | CRYSTAL [...] [facility] | [address] | [place] [address] | | | SERVICES, CORE | PARK [...] MARQUAM | [address] [address] | [place], [place] | | | KAILYN MAZA OF JOHN | [address] | [address] | | | TESTS | | | [...] GONZALEZ | [address] | [place], [place] | | | KAILYN MAZA OF CARE | [address] | [address] | | | TESTS | | | [...] view image for the detailed interpretation from [facility] results. | CARDIOLOGY | + + + + + + + + | Performing | Address | City/State/Zipcode | Phone Number | | Organization | | | | + + + + + | [facility] | [address] | [place], [place] | | | CARDIOLOGY | [address] | [address] | | + + + + + [...] view image for the detailed interpretation from [facility] results. | CARDIOLOGY | + + + + + + + + | Performing | Address | City/State/Zipcode | Phone Number | | Organization | | | | + + + + + | [facility] | [address] | [place], [place] | | | CARDIOLOGY | [address] | [address] | | + + + + + [...] | + + + + + | [facility] | [address] | [place] [address] | | | TOI MARIN | CRYSTAL [...] GONZALEZ | [address] | [place], [place] | | | KAILYN MAZA OF JOHN | [address] | [address] | | | TESTS | | | [...] [facility] | [address] | [place] [address] | | | SERVICES, CORE | PARK [...] | + + + + + | [facility] | [address] | [place] [address] | | | SERVICES, CORE | CRYSTAL [...] + + + + + | [facility] | [address] | [place] [address] | | | SERVICES, CORE | CRYSTAL [...] [facility] | [address] | [place] [address] | | | TOI MARIN | [address] [...] + + + + + | [facility] | [address] | [place] [address] | | | SERVICES, TOI | CRYSTAL [...] | + + + + + | [facility] | [address] | [place] [address] | | | SERVICES, TOI | CRYSTAL [...] [facility] | [address] | [place] [address] | | | TOI MARIN | CRYSTAL [...] [facility] | [address] | [place] [address] | | | SERVICES, CORE | CRYSTAL [...] + + + + + | [facility] | [address] | [place] [address] | | | TOI MARIN | CRYSTAL [...] + + + + + | [facility] | [address] | [place] [address] | | | SERVICES, CORE | CRYSTAL [...] (H) | 60 - 99 mg/dL | [facility] - | | | GLUCOSE, | [...] GONZALEZ | [address] | [place], [place] | | | KAILYN MAZA OF CARE | [address] | [address] | | | TESTS | | | [...] MARQUAM | [address] | [place], [place] | | | SHAUNNA POINT OF CARE | [address] | [address] | | | TESTS | | | [...] - CARLOS | [address] | [place], [place] | | | SHAUNNA POINT OF CARE | [address] | [address] | | | TESTS | | | [...] [facility] | [address] | [place] [address] | | | SERVICES, CORE | PARK [...] + + + + + | [facility] | [address] | [place] [address] | | | SERVICES, | [address] [...] | + + + + + | [facility] | [address] | [place] [address] | | | TOI MARIN | CRYSTAL [...] + + + + + | [facility] | [address] | [place] [address] | | | TOI MARIN | CRYSTAL [...] (H) | 60 - 99 mg/dL | [facility] - | | | GLUCOSE, | [...] MARQU[facility] | [address] | [place], [place] | | | KAILYN MAZA OF CARE | [address] | [address] | | | TESTS | | | [...] GONZALEZ | [address] | [place], [place] | | | SHAUNNA POINT OF JOHN | [address] | [address] | | | TESTS | | | [...] [facility] | [address] | [place] [address] | | | SERVICES, | [address] [...] + + | [facility] | [address] | [place] [address] | | | SERVICES, | [address] [...] + + + + + | [facility] | [address] | [place] [address] | | | SERVICES, CORE | CRYSTAL [...] + + + + | PRODUCT | [id number] | | [facility] | | | UNIT [...] + + + + | BLOOD | [id number] | | [facility] | | | PRODUCT [...] + + + + + | [facility] | [address] | [place] [address] | | | PATHOLOGY | [address] [...] + + + + | PRODUCT | [id number] | | [facility] | | | UNIT [...] + + + + | BLOOD | [id number] | | [facility] | | | PRODUCT [...] DEPARTMENT OF | [address] | [place], [place] [address] | | | PATHOLOGY | [address] [...] - CARLOS | [address] | [place], [place] | | | [facility] | [address] | [address] | | | TESTS | | | [...] [facility] | [address] | [place] [address] | | | TANIA, TOI | [address] [...] + + + + + | [facility] | [address] | [place] [address] | | | SERVICES, CORE | [address] [...] [facility] | [address] | [place] [address] | | | TOI MARIN | CRYSTAL [...] [facility]ONZ[facility] | [address] | [place], [place] | | | SHAUNNA [facility] | [facility] | [address] | | | TESTS | | | [...] | | + +---------+ + + | [facility] DEPARTMENT OF | | | | [...] 7.2 | 4.4 - 11.0 K/cu | [facility] | | | | | mm | LABORATORY | | | | | | SERVICES, | | | | | | CORE | | + + + + + + | RED CELL | 4.27 (L) | 4.50 - 5.90 | [facility] | | | COUNT | | M/cu [...] [facility] | [address] | [place] [address] | | | SERVICES, CORE | PARK [...] + + | [facility] | [address] | [place] [address] | | | SERVICES, CORE | CRYSTAL [...] + + + + + | [facility] | [address] | [place] [address] | | | SERVICES, CORE | PARK [...] | + + + + + | [facility] | [address] | [place] [address] | | | SERVICES, CORE | CRYSTAL [...] | + + + + + | [facility] | [address] | [place] [address] | | | [place] | | | | + + + [...] Coronary atherosclerosis of unspecified type of vessel, [place] or graft | + + documented in [...]
--- OUTSIDE RECORDS SUMMARY | ~2019-09-13 | XMS | Encounter Summary ---
Demographics + + + | Address | [address] | | | [place] [address] | + + + | Home Phone | | + + + | Preferred Language | Unknown | + + + | Marital Status | Single | + + + | Mormonism Affiliation | Unknown | + + + | Race | Unknown | + + + | Ethnic Group | Unknown | + + + Author + + + | Author | [facility] | | | and [place] | + + + | Organization | [facility] | | [...] Team Providers + +------+ + | Care Defective Cigarette Slitter Name | Role | Phone | + [...] | | | | [place] | [phone] | | | | | [address] | | | | | | [phone] | | | +--------+ + + + [...] | | | | | [place] | | | | | | [address] | | | | | | | | +--------+---------+ + + + documented as of this encounter Visit Diagnoses Not on filedocumented in this encounter"
--- OUTSIDE RECORDS SUMMARY | ~2019-09-13 | XMS | Clinical Summary ---
Demographics + + + | Address | [address] | | | [place] [address] | + + + | Home Phone | | + + + | Preferred Language | Unknown | + + + | Marital Status | Single | + + + | Yazdanism Affiliation | Unknown | + + + | Race | Unknown | + + + | Ethnic Group | Unknown | + + + Author + + + | Author | [facility] (Historical as of | | | 05-12-19) | + + + | Organization | [facility] (Historical as of | | | 05-12-19) | + + + | Address | Unknown | + + + | Phone | Unavailable | + + + Support + + +---------+ + | Name | Relationship | Address | Phone | + + +---------+ + | LaceyJai | ECON | Unknown | | + + +---------+ + | LaceyAfshan | ECON | Unknown | | + + +---------+ + Care Team Providers + +------+ + | Care Dining Service Worker Name | Role | Phone | [...] | | Activ | | (LIPITOR) 20 MG | mouth every evening | tablet | | 9/20 | | e | | tablet | | | | 18 | | | + + +--------+---------+------+------+-------+ | lisinopril | Take 0.5 tablets by | 90 | 2 | 12/25 | 040 | Activ | | (ZESTRIL) 5 MG | mouth daily. | tablet | | | 06/15 | e | | tablet | | | | | 20 | | + + +--------+---------+------+------+-------+ Active Problems [...] + + + | Blood Pressure | 114/58 | 01/03/2019 3:03 PM PDT | + + + + | Pulse | 60 | 01/03/2019 3:03 PM PDT | + + + + | Temperature | 35.4 C (95.7 F) | 10/16/2012 12:27 PM PST | + + + + | Respiratory Rate | - | - | + + + + | Oxygen Saturation | 100% | 01/03/2019 3:03 PM PDT | + + + + | Inhaled Oxygen | - | - | | Concentration | | | + + + + | Weight | 81.1 kg (178 lb 12.8 | 02/08/2018 11:32 AM PDT | | | oz) | | + + + + | Height | 188 cm (6' 2") | 01/03/2019 3:03 PM PDT | + + + + [...] + + | Vaccine: Influenza | | | | | (#1) | 9 [...] +------+-------+ + | MEDICARE | MEDICA | [id number] | | | [address] | | | RE | | | | [place] [address] | | | IP-OP | | | | | + +--------+ +------+-------+ + | MEDICAID | [place] | [id number] | | | [address] | | | N | | | | [place] | | | [place] | | | | [address] | | | [employer] | | | | | + +--------+ +------+-------+ + + +--------+ +--------+ + + | Guarantor Name | Accoun | Relation to | Date | Phone | Billing Address | | | t Type | Patient | of | | | | | | | | | | + +--------+ +--------+ + + | CALIN CROWDER | Person | Self [birth year] | Home: | [address] | | | al/Fam | | 1945 | [phone] | [place] | | | [place] | | | [phone] | [address] | + +--------+ +--------+ + +
--- OUTSIDE RECORDS SUMMARY | ~2019-09-13 | XMS | Clinical Summary ---
Demographics + + + | Address | [address] | | | [place] [address] | + + + | Home Phone | | + + + | Preferred Language | Unknown | + + + | Marital Status | Single | + + + | Adventism Affiliation | CHR | + + + [...] [place] | | | | | [address] | | + + + + + | Linh Pate | ECON | Unknown | | + + + + + Care Team Providers + +------+ + | Care Mixing Machine Attendant Name | Role | Phone | + +------+ + | Erick Bernstein DO | PCP | | + +------+ + Source Comments [facility] is fully live on both [facility] and [facility] Allergies No Known Allergies Medications + + [...] Disease | Father | | black-outs and [place] | + + +------+ + + +------+--------+ [...] | | | | | | | [address] | | + +--------+ +--------+ + +--------+ [...] | 1945 | [phone] | [place] [address] | | | rossi | | | 6 (Home) | | + +--------+ +--------+ + + Advance Directives + + + + + | Type | Date Recorded | Patient | Explanation | | | | Sales Trader | | + + + + + [...]
--- OUTSIDE RECORDS SUMMARY | ~2019-09-13 | XMS | Clinical Summary ---
Demographics + + + | Address | [address] | | | [place] [address] | + + + | Home Phone | | + + + | Preferred Language | Unknown | + + + | Marital Status | Single | + + + | Anabaptist Affiliation | Unknown | + + + | Race | Unknown | + + + | Ethnic Group | Unknown | + + + Author + + + | Author | [facility] (Historical as of | | | 05-12-19) | + + + | Organization | [facility] (Historical as of | | | 05-12-19) [...] Team Providers + +------+ + | Care Toy Stuffer Name | Role | Phone | + [...] +------+-------+ + | MEDICARE | MEDICA | [id number] | | | [address] | | | RE | | | | [place] [address] | | | IP-OP | | | | | + +--------+ +------+-------+ + | MEDICAID | [place] | [id number] | | | [address] | | | N | | | | [place] | | | [place] | | | | [address] | | | MEDICAL TYPIST | | | | | + +--------+ [...] | [place] | | | [address] | [address] | + +--------+ +--------+ + +
--- OUTSIDE RECORDS SUMMARY | ~2019-09-13 | XMS | Encounter Summary ---
Demographics + + + | Address | [address] | | | [place] [address] | + + + | Home Phone | | + + + | Preferred Language | Unknown | + + + | Marital Status | Single | + + + | Uatsdin Affiliation | CHR | + + + | Race | White | + + + | Ethnic Group | Not or | + + + Author + + + | Author | [facility] | + + + | Organization | [facility] | + + + | Address | Unknown | + + + | Phone | Unavailable | + + + Support + + + + + | Name | Relationship | Address | Phone | + + + + + | Joanne Zhang | [place] | [address] | | | | | [place] | | | | | [address] | | + + + + + | Linh Pate | ECON | Unknown | | + + + + + Care Team Providers + +------+ + | Care Clock And Watch Assembler Name | Role | Phone | + +------+ + | Erick Bernstein DO | PCP | | + +------+ + Encounter Details +--------+ + + + + | Date | Type | Department | Care Team | Description | +--------+ + + + + | 01/04/ | Hospital | Diagnostic | | | | 2012 | Encounter | [facility] at [facility] | | | | | | [address] | | | | | | [address] Mailcode: | | | | | | [address] | | | | | | [place], | | | | | | [place] [address] | | | | | | [phone] | | | +--------+ + + + [...] X-RAY CHEST 2 VIEW | Routin | 01/04/2013 | Coronary artery | Results for this | | | e | 12:58 PM | disease | procedure are in the | | | | PDT | | results section. | + +--------+ + + + documented in this encounter Results X-RAY CHEST 2 VIEW [...] | | | | | RADHA, MDAuthor: | | | | | | [...] | + + | Coronary artery disease Coronary atherosclerosis of unspecified type of vessel, | | [place] or graft | + + documented in this encounter"
--- OUTSIDE RECORDS SUMMARY | ~2019-09-13 | XMS | Encounter Summary ---
Demographics + + + | Address | [address] | | | [place] [address] | + + + | Home Phone | | + + + | Preferred Language | Unknown | + + + | Marital Status | Single | + + + | Catholic Affiliation | Unknown | + + + [...] Team Providers + +------+ + | Care Pet Care Technician Name | Role | Phone | [...] 2019 | | CONVERSION [address] | [address] | | | | | [place] | [place], [place] | | | | | [place], [place] | [address] | | | | | [address] | [phone] | | | | | [phone] | | | +--------+ + + + [...] [place] | | | | | | [address] | | | | | | | [...] | A Nik: 0.51 m/s MV Dec [place]: 3.23 m/s2 MV DecT: 205.45 ms | | | MV E Nik: 0.66 m/s MV E/A Ratio: 1.30 E/E' Sept: 14.34 E' | | | Lat: 0.10 m/s E' Sept: 0.04 m/s TR maxP.36 mmHg TR | | | Vmax: 1.75 m/s Air Brake Mechanic: Authenticated by: NANCY QUINTERO, | | | Report Date/Time: 04-30-2019 16:56:46 | | + + + + + | Procedure Note | + + | Toby, Rad Conversion - 06/01/2019 9:23 AM PDT Patient Name: Kianna Ramos of | | : 1945 Performing Physician: NANCY QUNITERO, | | INDICATIONS P | | OST [...] (A-L): 23.06 ml/m2LAAs | | A2C: 16.45 [id number] A-L A2C: 44.05 mlLAESV MOD A2C: 41.29 mlLALs A2C: 5.21 | | cmLAAs A4C: 15.39 [id number] A-L A4C: 44.66 mlLAESV MOD A4C: 44.18 mlLALs A4C: | | 4.50 cmAV Env.Ti: 373.08 msAV maxP.27 mmHgAV meanP.95 mmHgAV Vmax: 0.90 | | m/Cesar Vmean: 0.66 m/Cesar VTI: 24.87 cmAVA Vmax: 3.24 cm2AVA (VTI): 2.80 [id number] | | Vmax: 0.00 cm2/m2AVAI (VTI): 0.00 cm2/m2LVOT Env.Ti: 350.46 msLVOT maxP.16 | | mmHgLVOT meanP.10 mmHgLVSI Dopp: 33.69 ml/m2LVSV Dopp: 69.74 mlLVOT Vmax: | | 0.73 m/sLVOT Vmean: 0.49 m/sLVOT VTI: 17.45 cmMV A Nik: 0.51 m/sMV Dec [place]: | | 3.23 m/s2MV DecT: 205.45 msMV E Nik: 0.66 m/sMV E/A Ratio: 1.30E/E' Sept: | | 14.34E' Lat: 0.10 m/sE' Sept: 0.04 m/sTR maxP.36 mmHgTR Vmax: 1.75 m/s | | Air Brake Mechanic:Authenticated by: Robert MONIQUE Date/Time: 04-30-2019 16:56:46 | [...] A Nik: 0.51 m/s | |MV Dec [place]: 3.23 m/s2 | |MV DecT: 205.45 ms | |MV E Nik: 0.66 m/s | |MV E/A Ratio: 1.30 | |E/E' Sept: 14.34 | |E' Lat: 0.10 m/s | |E' Sept: 0.04 m/s | |TR maxP.36 mmHg | |TR Vmax: 1.75 m/s | | | |Air Brake Mechanic: | |Authenticated by: NANCY QUINTERO MD | [...]
--- OUTSIDE RECORDS SUMMARY | ~2019-09-13 | XMS | Encounter Summary ---
Demographics + + + | Address | [address] | | | [place] [address] | + + + | Home Phone [...] [place] | | | | | [address] | | + + + + + | Linh Cernat | ECON | Unknown | | + + + + + Care Team Providers + +------+ + | Care Production Generalist Name | Role | Phone | + [...] MD Alexys | [facility] [address] | | | | | [address]ACI | | [address] | | | | | C | | Mailcode: | | | | | ECHOCARDIOGR | | [id number] Sally | | | | | AM, ADULT | | Miguel Roth | | | | | | | Building | | | | | | | [place], [place] | | | | | | | [address] | | | | | | | Phone: | | | | | | | [phone] | +--------+--------+ + + + + Reason [...] + + | 09/29/ | Hospital | [facility] [address] | Kyle Ambrose MD | | | 2013 - | Encounter | [place] [id number] | [address] | | | | | [facility] | [address] | | | 10/03/ | | [place], [place] | [place] [address] | | | 2012 | | [address] | [phone] | | | | | [phone] | | | +--------+ + + + [...] PATIENT Referring Physician: Nikki Wooten DO Primary/Outpatient Ethanol Operations Manager: GLENN Inpatient Attending Physician: / Author/Discharging Physician: [...] collapsed while walking in side a [facility] on 09/29/12 where EMS was called and found him in V tach where he was given amiodarone 70m g IV followed by defibrillation with 120 J of energy which converted him to v tach to afib w ith eventual conversion to NSR. He was transferred to [facility] for further management form [facility]. He underwent angiography on 09/30/12 that [...] and q waves on EKG suggesting previous NE and absence of other etiologies of V [...] days of discharge which was arranged in [facility] (I called his PCP). - ECHO at [facility] in 1 month 3. Severe 3 [...] 5 or more pounds in 1 w tonto apache to your physician. *Call 911 right away [...] Lifelong non-smoker Core Measures: Diagnosis of Acute NE: No Diagnosis of CHF: Yes. Patient is on an ADILSON-I/ARB.. Patient is on a beta-jessy at dis charge. Cardiac Rehabilitation: This patient is not referred for cardiac rehabilitation. Outstanding labs/studies: INR either this , 10/05 or Tuesday10/06/12 Echocardiogram in Oct at [facility] Discharge weight: Wt Readings from Last [...] Inpatient Hospital Date of Service: 10/03/2012 CSN: [id number] Suggested Modifiers: GC-Resident documented in this e [...] LV thrombus. (OK to be done in [facility]) -- Mr. Crowder is to admit to [facility] Cadiac Surgery on Tuesday, 19 Nov 2012 for anti-coagulati on -- last dose of warfarin Tuesday, 17 Nov 2012 -- for any questions (Electronically Signed) Joseph Lewis PA-C [facility] Cardiac Surgery ichael Colon MD - 2012 1:50 PM PST CCU PROGRESS NOTE Patient name: Josef Crowder Hospital Day: 3 Author: TI VALLECILLO MD,MPH Attending Physician: ID: is a 67 yo man with h/o HTN, CAD s/p likely NE given q waves in EKG, develop mental delay who had hemodynamically significant vtach on 09/29/12 s/p defibrillation who was transferred from OSH for further management and on [facility] here on 09/30/12 found to have anterio r, anteroseptal, and apical wall thinness and akinesis,, and LV thrombus and severe 3 vessel disease on cath. Interval History/Overnight Events: - Seen by CTS Subjective Happy about [employer] win over [employer]. No chest pain, sob, abd [...] man with h/o HTN, CAD s/p likely NE given q waves in EKG and wall [...] in 1 month that will done in [place] where he lives. - Aspirin 325mg - Metop tart 12.5 BID - Atorvastatin 80mg daily - Lisinopril 5mg daily - Spironolactone 50mg daily - Prudent diet - ECHO in 1 month in [place] - CABG in mid October #. LV [...] on discharge - paper work submitted to pillowcase cutter - EP following and appreciate their recs #. HTN - Lisinopril 5mg daily, spironolactone 50 mg daily and metop 12.5 mg BID Routine Care F: prudent diet A S T: On heparin gtt and warfarin H U G: Monitor Pt staffed with who agrees with above A/P. Ti Vallecillo MD,MPH Internal Medicine Resident PGY2 [id number] Cardiology Attending I have seen and examined Mr. Crowder and discussed the patient's management with the reside nt and/or fellow. I reviewed the housestaff note above and agree with the documented findin gs and plan of care. We are arranging outpatient life vest in anticipation of CABG for full revascularization. Given LV thrombus he will need to be on warfarin. [facility] DEPARTMENT: Place of Service: Inpatient Hospital Date of Service: 10/02/2012 [facility]: [id number] Suggested Modifiers: GC-Resident Kyle Ricketts Md - 10/01/2012 6:38 AM PST CCU PROGRESS NOTE Patient name: Josef Crowder Hospital Day: 2 Author: TI VALLECILLO MD,MPH Attending Physician: Kyle Ambrose MD ID: is a 67 yo man with h/o HTN, CAD s/p likely NE given q waves in EKG, develop mental [...] man with h/o HTN, CAD s/p likely NE given q waves in EKG, developmental delay who had hemodynamically significant vtach on 09/29/12 s/p defibrillation who was transferred from OSH for further management and on [facility] here on 09/30/12 found to have anterior, anteroseptal, and apical wall thinness and akinesis,, and LV thrombus and severe 3 vessel disease on coronary angio. #. CAD, severe 3 vessel disease s/p previous NE and likely ischemic event on 09/29/12 Likely [...] Ti Vallecillo MD,MPH Internal Medicine Resident PGY2 [place] pager [phone] Cardiology Attending I have seen and examined Mr. Crowder and discussed the patient's management with the reside nt and/or fellow. I reviewed the housestaff note above and agree with the documented findin gs and plan of care. Kyle Ambrose M.D. Ph.D. [facility] DEPARTMENT: Place of Service: Inpatient Hospital Date of Service: 10/01/2012 CSN: [id number] Suggested Modifiers: GC-Resident ruz, Kenia Allen MD [...] team. Kenia Groves MD Fellow, Cardiovascular Medicine [facility] [place] [address] yle Ambrose Md - 09/30/2012 5:26 PM PST CCU PROGRESS NOTE Patient name: Josef Crowder Hospital Day: 1 Author: TI VALLECILLO MD,MPH Attending Physician: Kyle Ambrose MD ID: is a 67 yo man with h/o HTN, CAD s/p likely NE given q waves in EKG, develop mental delay who had hemodynamically significant vtach on 09/29/12 s/p defibrillation who was transferred from OSH for further management and on [facility] here on 09/30/12 found to have anterio [...] man with h/o HTN, CAD s/p likely NE given q waves in EKG, developmental delay who had hemodynamically significant vtach on 09/29/12 s/p defibrillation who was transferred from OSH for further management and on [facility] here on 09/30/12 found to have anterior, anteroseptal, and apical wall thinness and akinesis,, and LV thrombus and severe 3 vessel disease on coronary angio. #. CAD, severe 3 vessel disease s/p previous NE and likely ischemic event yesterday Likely cause [...] Ti Vallecillo MD,MPH Internal Medicine Resident Y2 [place] pager [phone] Cardiology Attending I have seen and examined Mr. Crowder and discussed the patient's management with the reside nt and/or fellow. I reviewed the housestaff note above and agree with the documented findin gs and plan of care. Kyle Ambrose M.D. Ph.D. [facility] DEPARTMENT: Place of Service: Inpatient Hospital Date of Service: 09/30/2012 CSN: [id number] Suggested Modifiers: GC-Resident Tyrese Martínez MD - 0 09/30/2012 1:44 PM PSTCardiology Preliminary Procedure Note (Full report to follow) Primary Care Provider: No Pcp Per PATIENT Referring Provider: Nikki Wooten DO Head [place]man Staff: Tyrese Infante M.D. Procedure(s): Coronary Angiography [...] | Tyrese Infante M.D., F.A.C.C. | | [employer], Medicine | | Division of Cardiovascular Medicine | | Director, Cardiac Catheterization Laboratories | | | | REFERRING PHYSICIAN: | | Kyle Ambrose M.D., Ph.D. | | [employer], Medicine | | Division of Cardiovascular Medicine [...] | | CATHETERS: | | 5 Fr [place] radial angiographic catheter | | 5 Fr [...] technique, a 5 | | Fr Terumo Lometa sheath was placed in the right radial artery. Nitroglycerin | | 200 mcg and verapamil 2 mg were injected intra-arterially through the side | | port of the sheath. A 5 Fr [place] radial angiographic catheter was advanced | | [...] left anterior descending fills via | | [id number] collaterals and is noted to be a [...] | Tyrese Infante M.D., Tesha | | [employer], Medicine | | Division of Cardiovascular Medicine | | Director, Cardiac Catheterization Laboratories | | | | ANNA/dima | | | | A | | [phone] | + + CBC (10/03/2012 6:12 AM [...] [facility] | [address] | [place] [address] | | | SERVICES, CORE | PARK [...] | + + + + + | [facility] | [address] | [place] [address] | | | SERVICES, CORE | PARK [...] [facility] | [address] | [place] [address] | | | SERVICES, CORE | PARK [...] [facility] | [address] | [place] [address] | | | SERVICES, CORE | PARK [...] [facility] | [address] | [place] [address] | | | TANIA, TOI | CRYSTAL [...] | + + + + + | [facility] | [address] | [place] [address] | | | TOI MARIN | [address] | | | + + + [...] view image for the detailed interpretation from [employer] results. | CARDIOLOGY | + + + + + + + + | Performing | Address | City/State/Zipcode | Phone Number | | Organization | | | | + + + + + | [facility] | [address] | [place], [place] | | | CARDIOLOGY | [address] | [address] | | + + + + + [...] | + + + + + | [facility] | [address] | [place] [address] | | | SERVICESTOI | [address] [...] | + + + + + | [facility] | [address] [facility] | [place] [address] | | | TOI MARIN | [address] [...] [facility] | [address] | [place] [address] | | | SERVICES, CORE | CRYSTAL [...] | + + + + + | [facility] | [address] | [place] [address] | | | TOI MARIN | CRYST[address] [...] [facility] | [address] | [place] [address] | | | SERVICES, CORE | PARK [...] | [facility] | [address] [facility] [facility] | [place] [address] | | | SERVICES, TOI | CRYSTAL [...] [facility] | [address] | [place] [address] | | | SERVICES, CORE | PARK [...] | + + + + + | [facility] | [address] | [place] [address] | | | SERVICES, CORE | [address] | | | + + + + + 12 LEAD ECG (10/01/2012 9:21 AM PST) + + + + + + | Component | Value | Ref Range | Performed | Pathologist | | | | | At | Signature | + + + + + + | VENTRICULAR | 56 | BPM | [facility] | | | RATE | | [...] | | | | | HEIDI CASTILLO ([id number]) | | | | | | on 10/02/2012 8:49:48 AM | | | | + + + + + + + + | Specimen | + + | | + + + + + | Narrative | Performed At | + + + | Please click | [facility] | | on view image for the detailed interpretation from [employer] results. | CARDIOLOGY | + + + + + + + + | Performing | Address | City/State/Zipcode | Phone Number | | Organization | | | | + + + + + | [facility] | [address] | [place], [place] | | | CARDIOLOGY | [address] | [address] | | + + + + + [...] [facility] | [address] | [place] [address] | | | SERVICES, CORE | PARK [...] | + + + + + | [facility] | [address] | [place] [address] | | | SERVICES, CORE | PARK [...] | + + + + + | [facility] | [address] | [place] [address] | | | SERVICES, CORE | PARK [...] | + + + + + | [facility] | [address] | [place] [address] | | | SERVICES, CORE | PARK [...] [facility] | [address] | [place] [address] | | | SERVICES, CORE | PARK [...] | + + + + + | [facility] | [address] [facility] | [place] [address] | | | SERVICES, CORE | PARK [...] | + + + + + | [facility] - | [address] | [place] [address] | | | [place] | | | | + + + [...] [facility] | [address] | [place] [address] | | | SERVICES, CORE | PARK [...] | + + + + + | [facility] | [address] | [place] [address] | | | SERVICES, CORE | CRYSTAL [...] (H) | 60 - 99 mg/dL | [facility] - | | | GLUCOSE, [...] GONZALEZ | [address] | [place], [place] | | | KAILYN MAZA OF JOHN | [facility] | [address] | | | TESTS | | | [...] CARL[facility] | [address] | [place], [place] | | | KAILYN MAZA OF CARE | [address] | [address] | | | TESTS | | | [...] | + + + + + | [facility] | [address] | [place] [address] | | | TOI MARIN | CRYSTAL [...] | + + + + + | [facility] | [address] | [place] [address] | | | TOI MARIN | CRYSTAL [...] [facility] | [address] | [place], [place] | | | [facility]YN [facility] | [address] | [address] | | | TESTS | | | [...] [facility] | [address] | [place] [address] | | | SERVICES, CORE | PARK [...] [facility] | [address] | [place] [address] | | | SERVICES, CORE | PARK [...] | + + + + + | [facility] | [address] | [place] [address] | | | SERVICES, CORE | CRYSTAL [...] [facility] | [address] | [place] [address] | | | SERVICES, CORE | PARK [...] [facility] | [address] | [place], [place] | | | [facility] OF CARE | [address] | [address] | | | TESTS | | | | + + + + + X-RAY PORTABLE CHEST 1 VIEW (09/29/2012 9:18 PM PST) + + + + + + | Component | Value | Ref Range | Performed | Pathologist | | | | | At | Signature | + + + + + + | X-RAY | STUDY: [place] CHEST 1 VIEW | | | | [...] | + + + + + | [facility] | [address] | [place] [address] | | | TOI MARIN | PARK [...] + | [place] [facility] - | [address] | [place] [address] | | | [place] | | | [...] | 1.013 | 1.005 - 1.030 | [facility] | | | GRAVITY | | | [...] | + + + + + | [facility] | [address] [facility] | [place] [address] | | | SERVICES, CORE | PARK [...] - CAR[facility] | [address] | [place], [place] | | | K[facility]YN [facility] | [address] | [address] | | | TESTS | | | [...] view image for the detailed interpretation from [employer] results. | CARDIOLOGY | + + + + + + + + | Performing | Address | City/State/Zipcode | Phone Number | | Organization | | | | + + + + + | [facility] | [address] | [place], [place] | | | CARDIOLOGY | [address] | [address] | | + + + + + [...] [facility] | [address] | [place] [address] | | | SERVICES, CORE | PARK [...] | + + + + + | [facility] | [address] | [place] [address] | | | SERVICES, CORE | PARK [...] | + + + + + | [facility] | [address] | [place] [address] | | | SERVICES, CORE | CRYSTAL [...] | + + + + + | [employer] [facility] | [address] | [place] [address] | | | SERVICES, CORE | PARK [...] [facility] | [address] | [place] [address] | | | TOI MARIN | CRYSTAL [...] + | [facility] | [address] | [place] [address] | | | SERVICES, TOI | CRYSTAL [...]
--- OUTSIDE RECORDS SUMMARY | ~2019-09-13 | XMS | Encounter Summary ---
Demographics + + + | Address | [address] | | | [place] [address] | + + + | Home Phone | | + + + | Preferred Language | Unknown | + + + | Marital Status | Single | + + + | Rastafarian Affiliation | Unknown | + + + | Race | Unknown | + + + | Ethnic Group | Unknown | + + + Author + + + | Author | [facility] | | | and [place] | + + + | Organization | [facility] | | | and [...] Team Providers + +------+ + | Care Accounting Machine Mechanic Name | Role | Phone | + +------+ + PCP | Unavailable | + +------+ + Encounter Details +--------+ + + + + | Date | Type | Department | Care Team | Description | +--------+ + + + + | 11/06/ | Hospital | [facility] | Conversion | Diagnosis unknown | | 2016 | Encounter | CONVERSION DEP [address] | Transaction, | | | | | [address] | Provider Unknown | | | | | [place] | | | | | | [address] | | | | | | [phone] | | | +--------+ + + + [...] | | | | | [place] | | | | | | [address] | | | | | | | [...]
--- OUTSIDE RECORDS SUMMARY | ~2019-09-13 | XMS | Encounter Summary ---
Demographics + + + | Address | [address] | | | [place] [address] | + + + | Home Phone | | + + + | Preferred Language | Unknown | + + + | Marital Status | Single | + + + | Catholic Affiliation | CHR | + + + | Race | White | + + + | Ethnic Group | Not or | + + + Author + + + | Author | [facility] | + + + | Organization | [facility] | + + + | Address | Unknown | + + + | Phone | Unavailable | + + + Support + + + + + | Name | Relationship | Address | Phone | + + + + + | Joanne Zhang | [place] | [address] | | | | | [place] | | | | | [address] | | + + + + + | Linh Pate | ECON | Unknown | | + + + + + Care Team Providers + +------+ + | Care Gluer And Slicer Hand Name | Role | Phone | + [...] | | | | | | [place], | | | | | | [place] [address] | | | | | | [phone] | | | +--------+ + + + [...] of unspecified type of vessel, | | [place] or graft | + + documented in this encounter"
[~2019-09-13 09:41] MED LIST changes: +ACETAMINOPHEN500 MG PO; +CALCIUM CARB 51 EACH PO; +CALCIUM500 M1 PO; +FLUOXETINE HCL40 MG PO
== END 2019-09-13 11:52 | disposition home or self-care (01) ==
LOC: ED 09:41
DX: R40.20 Unspecified coma (principal); N18.9 Chronic kidney disease, unspecified
CPT/HCPCS: 99284

== ENCOUNTER 2022-08-23 12:45 | Emergency (ER) | payer MEDICARE, OTHER ==
[~2022-08-23] VITALS: Ht 188 cm; Wt 80.7 kg
[~2022-08-23 12:45] MED LIST changes: +ANTACID200 MG PO; +IRON240 MG PO; +MIDODRINE HCL2.5 MG PO; +VITAMIN C250 MG PO; +WARFARIN SODIU2.5 MG PO
--- NOTE | 2022-08-23 19:42 | EKG ---
[facility] [address] [facility] [place] [address] Signed Normal sinus rhythm Anterolateral infarct (cited on or before 17-JUL-2017) Abnormal ECG When compared with ECG of 27-APR-2019 08:15, T wave inversion no longer evident in Inferior leads Nonspecific T wave abnormality no longer evident in Anterior leads Inverted T waves have replaced nonspecific T wave abnormality in Lateral leads Confirmed by PARISA PENALOZA MD ([id number]) on 08/23/2022 7:42:11 PM Electronically Signed By: PARISA PENALOZA MD 08/23/221941 PATIENT NAME: CALIN CROWDER Electrocardiogram DATE OF : 49 PHYSICIAN: PARISA PENALOZA MD REPORT #: [id number] REPORT IS CONFIDENTIAL AND NOT TO BE RELEASED WITHOUT AUTHORIZATION
== END 2022-08-23 18:59 | disposition home or self-care (01) ==
LOC: ED 12:45
DX: J10.1 Influenza due to other identified influenza virus with other respiratory manifestations (principal); R55 Syncope and collapse; N18.9 Chronic kidney disease, unspecified; M19.90 Unspecified osteoarthritis, unspecified site; Z20.822 Contact with and (suspected) exposure to COVID-19; Z86.73 Personal history of transient ischemic attack (TIA), and cerebral infarction without residual deficits; Z79.01 Long term (current) use of anticoagulants; Z79.82 Long term (current) use of aspirin; Z79.899 Other long term (current) drug therapy
CPT/HCPCS: 36415; 80053; 85025; 87502; 93005; 93010; 99284-25; U0003

== ENCOUNTER 2022-11-17 13:59 | Emergency (ER) | payer MEDICARE, OTHER ==
[~2022-11-17] VITALS: Ht 188 cm; Wt 80.7 kg
[2022-11-17] MEDS ORDERED: HYDROCODON-ACE1 EA10 PO (22:44)
== END 2022-11-17 23:45 | disposition home or self-care (01) ==
LOC: ED 13:59
DX: M24.561 Contracture, right knee (principal); M25.561 Pain in right knee; N18.9 Chronic kidney disease, unspecified; I25.2 Old myocardial infarction; I48.91 Unspecified atrial fibrillation; Z86.73 Personal history of transient ischemic attack (TIA), and cerebral infarction without residual deficits; Z79.899 Other long term (current) drug therapy; Z79.82 Long term (current) use of aspirin; Z79.01 Long term (current) use of anticoagulants
CPT/HCPCS: 36415; 73560; 80053; 85025; 85651; 86140; 99284-25; A9270

== ENCOUNTER 2023-01-09 14:29 | Emergency (ER) | payer MEDICARE, OTHER ==
[~2023-01-09] VITALS: Ht 188 cm; Wt 82.0 kg
[~2023-01-09 14:29] MED LIST changes: +HYDROCODON-ACE1 EA10 PO
[2023-01-09 16:30] VITALS: BP 121/70
--- NOTE | 2023-01-09 20:51 | EKG ---
[facility] [address] [facility] [place] [address] Signed Sinus bradycardia with occasional premature ventricular complexes Rightward axis Anterior infarct , age undetermined Abnormal ECG When compared with ECG of 23-AUG-2022 13:27, No significant change was found Confirmed by Terrence Ordonez MD () on 01/09/2023 8:50:51 PM Electronically Signed By: TERRENCE ORDONEZ MD 01/09/232050 PATIENT NAME: CALIN CROWDER Electrocardiogram DATE OF : 49 PHYSICIAN: TERRENCE ORDONEZ MD REPORT #: [id number] REPORT IS CONFIDENTIAL AND NOT TO BE RELEASED WITHOUT AUTHORIZATION
== END 2023-01-09 16:15 | disposition home or self-care (01) ==
LOC: ED 14:29
DX: R55 Syncope and collapse (principal); R00.1 Bradycardia, unspecified; I25.2 Old myocardial infarction; I48.91 Unspecified atrial fibrillation; Z79.899 Other long term (current) drug therapy; Z79.82 Long term (current) use of aspirin; Z79.01 Long term (current) use of anticoagulants
CPT/HCPCS: 36415; 71045; 80053; 84484; 85025; 85610; 93005; 93010; 99284-25

== ENCOUNTER 2024-02-27 22:10 | Inpatient (IN) | payer MEDICARE, OTHER ==
[~2024-02-27] VITALS: Ht 188 cm; Wt 74.2 kg
[~2024-02-27 22:10] MED LIST changes: +ADULT ASPIRIN R81 MG PO; -ADULT ASPIRIN81 MG PO; -ANTACID200 MG PO; +CLEARLAX119 GM PO; +IRON GLYCINATE29 MG PO; -IRON240 MG PO; +TUMS200 MG PO
[2024-02-27] MEDS ORDERED: NOREPINEPHRINE BITARTRATE 250 ML IV SCH (22:30)
[2024-02-27] MEDS ORDERED: CEFTRIAXONE/SODIUM CHLORIDE 2 GM/100 ML PIGGYBACK IV ONE (22:30)
[2024-02-27 22:39] LABS: BASOPHILS 0.3 % (0-2); HEMOGLOBIN 12.3 g/dL (12.0-18.0)
[2024-02-27 22:41] LABS: HEMATOCRIT 38.2 % (35.0-50.0); LYMPHOCYTES 4.7 % (24-44); MCH 30.7 (27-36); MCHC 32.3 g/dl (30-36); MCV 95.1 fl (81-99); MONOCYTES 3.8 % (0-12); NEUTROPHILS 91.2 % (39-80); PLATELET COUNT 134 K/uL (140-440); RBC 4.02 M/ul (4.3-5.7); RDW 15.8 (10.5-15.0)
[2024-02-27 22:49] LABS: INR 2.8 (0.80-1.30); PROTIME 29.1 Sec (11.2-14.2)
[2024-02-27 22:54] LABS: ALBUMIN 3.2 g/dL (3.4-5.0); ANION GAP 16.2 (7-21); BILIRUBIN, TOTAL 1.2 ng/dL (0.2-1.0); BUN/CREATININE RATIO 17.91 (6.0-28.6); CREATININE, SERUM 1.34 mg/dL (0.70-1.30); POTASSIUM 4.2 mmol/L (3.5-5.1); PROTEIN, TOTAL 6.4 g/dL (6.4-8.2)
[2024-02-27 22:58] LABS: LACTIC ACID, BLOOD 3.6 mmol/L (0.4-2.0)
[2024-02-27 23:13] LABS: BILIRUBIN, URINE NEGATIVE (negative); BLOOD/HGB, URINE SMALL (Negative); KETONE, URINE NEGATIVE (Negative); LEUK ESTERASE, URINE TRACE (negative); NITRITE, URINE POSITIVE (negative)
[2024-02-27 23:14] LABS: INFLUENZA B NAA NEGATIVE (NEGATIVE); RESPIRATORY SYNCYTIAL VIR NAA NEGATIVE (NEGATIVE)
[2024-02-27] MEDS ORDERED: ETOMIDATE 40 MG/20 ML VIAL IV ONE ×2 (23:15→23:45)
[2024-02-27] MEDS ORDERED: ETOMIDATE 40 MG/20 ML VIAL IV PRN ×2 (23:15→23:30)
[2024-02-27 23:17] LABS: EPITHELIAL CELLS, URINE SQUAMOUS 1+ /lpf (0-1+)
[2024-02-27 23:18] LABS: RED BLOOD CELLS, URINE 21-40 /hpf (0-5)
[2024-02-27 23:19] LABS: BACTERIA, URINE 1+ /hpf (negative); CASTS, URINE NONE SEEN \\lpf; CRYSTALS, URINE AMORPHOUS PHOSPH 2+ (0-1+); REFLEX CULTURE, URINE Yes (No)
[2024-02-28] VITALS (25 sets, daily range): BP systolic 75–123; BP diastolic 46–81
[2024-02-28] MEDS ORDERED: AZITHROMYCIN/DEXTROSE 500 MG/250 ML BAG IV ONE (00:30)
[2024-02-28] MEDS ORDERED: NOREPINEPHRINE BITARTRATE 250 ML IV SCH (01:00)
[2024-02-28] MEDS ORDERED: MORPHINE SULFATE 4 MG/ML VIAL IV PRN (01:00)
[2024-02-28] MEDS ORDERED: ACETAMINOPHEN 325 MG TAB PO PRN (01:00)
[2024-02-28] MEDS ORDERED: ondansetron HCL 4 MG/2 ML VIAL IV PRN (01:00)
[2024-02-28] MEDS ORDERED: LACTATED RINGER'S 1,000 ML IV SCH ×2 (01:00→14:30)
[2024-02-28] MEDS ORDERED: LIDOCAINE 2% VISCOUS 6 ML SYR TOP ONE (01:00)
[2024-02-28 01:28] LABS: LACTIC ACID, BLOOD 1.4 mmol/L (0.4-2.0)
[2024-02-28 08:09] LABS: BASOPHILS 0.5 % (0-2); HEMATOCRIT 35.3 % (35.0-50.0); HEMOGLOBIN 11.5 g/dL (12.0-18.0); LYMPHOCYTES 3.4 % (24-44); MCH 30.6 (27-36); MCHC 32.4 g/dl (30-36); MCV 94.4 fl (81-99); MONOCYTES 5.9 % (0-12); NEUTROPHILS 90.2 % (39-80); PLATELET COUNT 126 K/uL (140-440); RBC 3.74 M/ul (4.3-5.7); RDW 15.3 (10.5-15.0)
[2024-02-28] MEDS ORDERED: LACTATED RINGER'S 1,000 ML IV ONE ×2 (08:15→12:15)
[2024-02-28 08:16] LABS: ANION GAP 12.9 (7-21); BUN/CREATININE RATIO 21.7 (6.0-28.6); CALCIUM 8.3 mg/dL (8.5-10.1); CREATININE, SERUM 1.29 mg/dL (0.70-1.30); MAGNESIUM 2.2 mg/dL (1.8-2.4); POTASSIUM 3.9 mmol/L (3.5-5.1)
[2024-02-28] MEDS ORDERED: AZITHROMYCIN 500 MG in DEXTROSE 5% 250 ML IV SCH (09:00)
[2024-02-28] MEDS ORDERED: CEFTRIAXONE/SODIUM CHLORIDE 2 GM/100 ML PIGGYBACK IV SCH (09:00)
[2024-02-28] MEDS ORDERED: PHARMACY RENAL DOSE ADJUSTMENT 1 DOSE MISC PO SCH (12:00)
[2024-02-28] MEDS ORDERED: SILVASORB TOP (12:14)
[2024-02-28] MEDS ORDERED: MILK OF MA400 MG/5 M PO (12:15)
[2024-02-28] MEDS ORDERED: CALMOSEPTINE OI71 GM TOP (12:16)
[2024-02-28] MEDS ORDERED: MIDODRINE HCL 5 MG TAB ONE (18:48)
[2024-02-28] MEDS ORDERED: MIDODRINE HCL 5 MG TAB PO SCH (21:00)
[2024-02-29] VITALS (21 sets, daily range): BP systolic 76–113; BP diastolic 48–81
[2024-02-29 05:38] LABS: BASOPHILS 0.4 % (0-2); EOSINOPHILS 0.8 % (0-6); HEMATOCRIT 30.7 % (35.0-50.0); HEMOGLOBIN 10.2 g/dL (12.0-18.0); LYMPHOCYTES 10.1 % (24-44); MCH 30.9 (27-36); MCHC 33.4 g/dl (30-36); MCV 92.6 fl (81-99); MONOCYTES 6.2 % (0-12); NEUTROPHILS 82.5 % (39-80); PLATELET COUNT 95 K/uL (140-440); RBC 3.31 M/ul (4.3-5.7); RDW 15.5 (10.5-15.0)
[2024-02-29 06:02] LABS: ALBUMIN 2.5 g/dL (3.4-5.0); ALBUMIN/GLOBULIN RATIO 0.93 (1.1-2.4); ANION GAP 10.5 (7-21); BILIRUBIN, TOTAL 1.5 ng/dL (0.2-1.0); BUN/CREATININE RATIO 21.23 (6.0-28.6); CALCIUM 7.8 mg/dL (8.5-10.1); CREATININE, SERUM 1.13 mg/dL (0.70-1.30); POTASSIUM 3.5 mmol/L (3.5-5.1); PROTEIN, TOTAL 5.2 g/dL (6.4-8.2)
[2024-02-29] MEDS ORDERED: EMPAGLIFLOZIN 10 MG TAB PO SCH (12:20)
[2024-02-29] MEDS ORDERED: AZITHROMYCIN 500 MG in DEXTROSE 5% 250 ML IV SCH (12:29)
[2024-02-29] MEDS ORDERED: CEFTRIAXONE/SODIUM CHLORIDE 1 GM/100 ML PIGGYBACK IV SCH ×2 (12:29→12:36)
[2024-02-29] MEDS ORDERED: WARFARIN SOD 2 MG TAB PO SCH (16:00)
[2024-02-29] MEDS ORDERED: WARFARIN PER PHARMACY PROTOCOL PO SCH (16:00)
[2024-02-29] MEDS ORDERED: METOPROLOL TARTRATE 25 MG TAB PO SCH ×2 (17:45→20:00)
[2024-02-29] MEDS ORDERED: METOPROLOL TARTRATE 25 MG TAB ONE (17:53)
--- NOTE | 2024-02-29 18:28 | EKG ---
[facility] [address] [facility] [place] [address] Signed Atrial flutter with variable AV block with premature ventricular or aberrantly conducted complexes Anterolateral infarct (cited on or before 17-JUL-2017) Abnormal ECG When compared with ECG of 09-JAN-2023 14:29, Atrial flutter has replaced Sinus rhythm Vent. rate has increased BY 56 BPM Non-specific change in ST segment in Lateral leads T wave inversion now evident in Inferior leads T wave inversion no longer evident in Lateral leads Confirmed by Ana Heredia MD ([id number]) on 02/29/2024 6:27:56 PM Electronically Signed By: ANA [place]ED[place] 02/29/24 1828 PATIENT NAME: CALIN CROWDER Electrocardiogram DATE OF : 49 PHYSICIAN: ANA HERED[place] REPORT #: [id number] REPORT IS CONFIDENTIAL AND NOT TO BE RELEASED WITHOUT AUTHORIZATION
[2024-03-01] VITALS (13 sets, daily range): BP systolic 11–137; BP diastolic 48–97
[2024-03-01 06:20] LABS: INR 2.8 (0.80-1.30); PROTIME 29.2 Sec (11.2-14.2)
[2024-03-01] MEDS ORDERED: CEFDINIR300 MG PO (09:31)
[2024-03-01] MEDS ORDERED: MIDODRINE HCL5 MG PO (09:32)
[2024-03-01] MEDS ORDERED: METOPROLOL TART25 MG PO (09:33)
[2024-03-01] MEDS ORDERED: JARDIANCE10 MG PO (09:34)
[2024-03-01] MEDS ORDERED: WARFARIN SOD 1 MG TAB PO SCH (16:00)
== END 2024-03-01 16:00 | disposition home or self-care (01) | DRG 871 ==
LOC: ED 22:10 → CCU 02-28 00:56
PROVIDERS: Family Medicine; ADMIT Internal Medicine; ATTEND Internal Medicine
PROC: 3E043XZ Introduction of Vasopressor into Central Vein, Percutaneous Approach (ICD-10-PCS; principal; 2024-02-28)
PROC: 3E03329 Introduction of Other Anti-infective into Peripheral Vein, Percutaneous Approach (ICD-10-PCS; 2024-02-28)
PROC: 0T9B70Z Drainage of Bladder with Drainage Device, Via Natural or Artificial Opening (ICD-10-PCS; 2024-02-28)
PROC: 02HV33Z Insertion of Infusion Device into Superior Vena Cava, Percutaneous Approach (ICD-10-PCS; 2024-02-28)
DX: A41.9 Sepsis, unspecified organism (principal); J18.9 Pneumonia, unspecified organism; R65.21 Severe sepsis with septic shock; N39.0 Urinary tract infection, site not specified; I48.91 Unspecified atrial fibrillation; Z66 Do not resuscitate; Z86.73 Personal history of transient ischemic attack (TIA), and cerebral infarction without residual deficits; F39 Unspecified mood [affective] disorder; H91.90 Unspecified hearing loss, unspecified ear; N18.9 Chronic kidney disease, unspecified; M19.90 Unspecified osteoarthritis, unspecified site; I25.2 Old myocardial infarction; Z95.1 Presence of aortocoronary bypass graft; Z79.82 Long term (current) use of aspirin; Z79.01 Long term (current) use of anticoagulants; Z79.899 Other long term (current) drug therapy
CPT/HCPCS: 36415; 36556; 51702; 71045; 80048; 80053; 81001; 83605; 83735; 83880; 84484; 85025; 85610; 87040; 87088; 87502; 92610; 93005; 93010; 93306; 94760; 99285-25; A9270; J0456; J0696; J7060; J7121; U0002

== ENCOUNTER 2024-05-26 16:40 | Inpatient (IN) | payer MEDICARE, OTHER ==
[2024-05-26] VITALS (8 sets, daily range): BP systolic 79–150; BP diastolic 13–101
[~2024-05-26] VITALS: Ht 188 cm; Wt 64.0 kg
[~2024-05-26 16:40] MED LIST changes: +CALMOSEPTINE OI71 GM TOP; +CEFDINIR300 MG PO; +JARDIANCE10 MG PO; +MIDODRINE HCL5 MG PO; +MILK OF MA400 MG/5 M PO; +SILVASORB TOP
[2024-05-26] MEDS ORDERED: PIPERACILLIN/TAZOBACTAM 3.375 GM in DEXTROSE 5% 100 ML IV ONE (16:45)
[2024-05-26] MEDS ORDERED: DEXTROSE 5% 100 ML IV ONE (16:56)
[2024-05-26] MEDS ORDERED: VANCOMYCIN HCL/D5W 1 GM/270 ML PIGGYBACK KIT IV ONE (17:00)
[2024-05-26] MEDS ORDERED: SODIUM CHLORIDE 0.9% 1,000 ML IV PRN ×3 (17:00→18:00)
[2024-05-26 17:02] LABS: HEMATOCRIT 36.9 % (35.0-50.0); HEMOGLOBIN 12.1 g/dL (12.0-18.0); MCH 32.3 (27-36); MCV 98.1 fl (81-99); PLATELET COUNT 119 K/uL (140-440); RBC 3.76 M/ul (4.3-5.7); RDW 16.3 (10.5-15.0)
[2024-05-26 17:10] LABS: PROTIME 56.9 Sec (11.2-14.2)
[2024-05-26 17:11] LABS: ALBUMIN 3.1 g/dL (3.4-5.0); ALBUMIN/GLOBULIN RATIO 0.94 (1.1-2.4); ANION GAP 22.3 (7-21); BILIRUBIN, TOTAL 1.4 ng/dL (0.2-1.0); BUN/CREATININE RATIO 27.31 (6.0-28.6); CALCIUM 8.9 mg/dL (8.5-10.1); CREATININE, SERUM 2.27 mg/dL (0.70-1.30); POTASSIUM 3.3 mmol/L (3.5-5.1); PROTEIN, TOTAL 6.4 g/dL (6.4-8.2)
[2024-05-26 17:12] LABS: PARTIAL THROMBOPLASTIN TIME 66.8 Sec (22.9-41.3)
[2024-05-26] MEDS ORDERED: NOREPINEPHRINE BITARTRATE 250 ML IV SCH (17:15)
[2024-05-26 17:16] LABS: LACTIC ACID, BLOOD 5.3 mmol/L (0.4-2.0)
[2024-05-26 17:17] LABS: INR 6.46 (0.80-1.30)
[2024-05-26 17:29] LABS: BANDS, MANUAL DIFF 14; LYMPHOCYTES, MANUAL DIFF 11; MONOCYTES, MANUAL DIFF 4; NEUTROPHILS, MANUAL DIFF 71
[2024-05-26 18:51] LABS: LACTIC ACID, BLOOD 4.8 mmol/L (0.4-2.0)
[2024-05-26 18:51] LABS: BILIRUBIN, URINE NEGATIVE (negative); BLOOD/HGB, URINE MODERATE (Negative); KETONE, URINE SMALL (Negative); LEUK ESTERASE, URINE NEGATIVE (negative); NITRITE, URINE NEGATIVE (negative)
[2024-05-26 19:08] LABS: BACTERIA, URINE 1+ /hpf (negative); CASTS, URINE NONE SEEN \\lpf; COLLECTION TYPE, URINE CLEAN CATCH; CRYSTALS, URINE NONE SEEN (0-1+); EPITHELIAL CELLS, URINE SQUAMOUS 1+ /lpf (0-1+); REFLEX CULTURE, URINE No (No)
[2024-05-26] MEDS ORDERED: LIDOCAINE 2% VISCOUS 6 ML SYR TOP ONE (19:30)
[2024-05-26] MEDS ORDERED: LORazepam 2 MG/ML VIAL IV ONE (19:45)
[2024-05-26] MEDS ORDERED: SODIUM CHLORIDE 0.9% 1,000 ML IV SCH ×2 (20:45→22:15)
[2024-05-26] MEDS ORDERED: AZITHROMYCIN 500 MG in DEXTROSE 5% 250 ML IV SCH (20:46)
--- NOTE | 2024-05-26 20:58 | NUR ---
PATIENT ARRIVED TO THE UNIT VIA STRETCHER. SLIDE TRANSFER TO UNIT BED.REPORT RECEIVED FROM RD RN. PATIENT NON VERBAL. LUNGS WITH CRACKLES NOTED THROUGHOUT. OXYGEN ON VIA OXYMASK AT 8L/MIN. AFEBRILE. NOTED PRESSURE SORE TO LEFT BUTTOCKS. PHOTOS TAKEN AND IN CHART. REDNESS THAT IS BLANCHABLE TO COCCXY. NOTED SKIN TEAR TO LEFT FOREARM. PULSES FAINT THROUGHOUT. PATINET RECEIVED FROM ED ON NOREPI DRIP AT 10MCG/MIN. SECOND RN SKIN CHECK COMPLETED. MONTANEZ CATHERTER WITH ULISES URINE PRESENT. NO FURTHER NEEDS AT THIS TIME. CALL LIGHT WITHIN REACH.
[2024-05-26] MEDS ORDERED: POTASSIUM CHLORIDE 10 MEQ/100 ML BAG IV SCH (21:00)
[2024-05-26 21:30] LABS: INFLUENZA B NAA NEGATIVE (NEGATIVE); RESPIRATORY SYNCYTIAL VIR NAA NEGATIVE (NEGATIVE)
[2024-05-26] MEDS ORDERED: LORazepam 2 MG/ML VIAL ONE (21:32)
[2024-05-26] MEDS ORDERED: ADENOSINE 3 MG/ML VIAL ONE (21:34)
--- NOTE | 2024-05-26 21:41 | NUR ---
MD HEREDIA IN ROOM, SPOKE WITH DAUGHTER WITH IS POA. PATIENT IS TO BE KEPT COMFORTABLE WITH NO FURTHER MEDICAL INTERVENTIONS APART FROM WHAT IS ORDERED AT THIS TIME. FAMILY [place].
[2024-05-26] MEDS ORDERED: ADENOSINE 3 MG/ML VIAL IV ONE (22:15)
[2024-05-26] MEDS ORDERED: ADENOSINE 3 MG/ML VIAL IV SCH (22:15)
[2024-05-26] MEDS ORDERED: LORazepam 2 MG/ML VIAL IV PRN (22:15)
[2024-05-26] MEDS ORDERED: MORPHINE SULFATE 4 MG/ML VIAL IV PRN (22:15)
[2024-05-26] MEDS ORDERED: MORPHINE SULFATE 4 MG/ML VIAL ONE (22:16)
--- NOTE | 2024-05-26 22:16 | NUR ---
RAPID REPONSE CALLED AT 2127 FOR SVT NOTED HR 232. MD HEREDIA MADE AWARE. 2130 6MG- NO CHANGE 2132- 12MG- HR 150'S 2135- 1MG ATIVAN 2138- ADENOSINE 12MG HR 260'S STAFF AT BEDSIDE AFUA, CCU RN CHYNA, CCU RN MADDY, CCU TRAINEE RN PURA, HF ISACC, ED RN KEM, ED RN CASSIDY, RT MD HEREDIA PER FAMILY WISHES NO ESCALATION OF CARE. SEE EMAR FOR NEW MEDICATIONS FOR ANXIETY AND COMFORT. PATIENT CALIN REMAINS IN SVT FAMILY AT BEDSIDE. CARRI FLYNN
--- NOTE | 2024-05-26 22:25 | NUR ---
PATIENT WITH TACHYPENIA. PRN MORPHINE SULFATE GIVEN.
--- NOTE | 2024-05-26 23:27 | NUR ---
PATIENT RESTING IN BED WITH FAMILY AT BEDSIDE. RESPIRATIONS LABORED AT TIMES. VSS. PATIENT APPEARS COMFORTABLE, NO NOTED GRIMICING. NOREPI DRIP CONTINUES AT 10MCG/MIN. CALL LIGHT WITHIN REACH.
[2024-05-27] VITALS: BP 130/43
[2024-05-27] MEDS ORDERED: POTASSIUM CHLORIDE 10 MEQ/100 ML BAG IV ONE
--- NOTE | 2024-05-27 00:10 | NUR ---
PATIENT RESTING IN BED. NOREPI DRIP TITRATED SEE FLOWSHEET. VSS. LUNGS WITH CRACKLES NOTED THROUGHOUT. OXYGEN ON VIA NON REBREATHER MASK. PATIENT APPEARS COMFORTABLE AT THIS TIME. CALL LIGHT WITHIN REACH, BED ALARM ON.
--- NOTE | 2024-05-27 00:40 | NUR ---
PATIENT WITH INCREASED TACHYCARDIA. PULLING AND TUGGING AT BLANKETS. PRN MEDICATIONS ADMINSTERED TO MAINTAIN COMFORT LEVELS.
--- NOTE | 2024-05-27 01:20 | NUR ---
PATIENT RESTING IN BED WITH EYES CLOSED. NO NOTED SIGNS OF DISTRESS AT THIS TIME. CALL LIGHT WITHIN REACH. BED ALARM ON.
[2024-05-27 01:29] VITALS: BP 106/18
--- NOTE | 2024-05-27 02:17 | NUR ---
PATIENT FAMILY AT BEDSIDE. PATIENT RESTING IN BED WITH EYES CLOSED. NO NOTED S/SX OF IMMIDEATE DISTRESS. CALL LIGHT WITHIN REACH. BED ALARM ON.
--- NOTE | 2024-05-27 03:56 | NUR ---
CALIN'S FAMILY FROM [place] ARRIVED TO THE UNIT AND ARE VISITING WITH HIM AT BEDSIDE. NO NEEDS ENDORSED AT THIS TIME
--- NOTE | 2024-05-27 03:59 | NUR ---
PATIENT REPOSITIONED IN BED. MONTANEZ DRAINAING ULISES URINE. PATIENT APPEARS TO BE COMFORTABLE. NO NOTEABLE FACIAL GRIMICING. FAMILY FROM [place] HAVE ARRIVED AND ARE IN ROOM WITH PATIENT AT THIS TIME.
--- NOTE | 2024-05-27 04:17 | NUR ---
MD HEREDIA NOTIFIED OF FAMILY'S ARRIVAL. BALAJI NOTIFIED NURISNG STAFF THAT THEY ARE "CLOSE TO WANTING ALL THE MACHINES OFF SO THAT HE DOESN'T SUFFER ANYMORE". VERBAL ORDERS TO TRANSITION TO COMFORT CARE. SEE NEW ORDERS. AVINASH NEVES NOTIFIED
--- NOTE | 2024-05-27 04:21 | NUR ---
OXYGEN AND NOREPI DRIP TURNED OFF. FAMILY AT BEDSIDE. PATIENT APPEARS COMFORTABLE AT THIS TIME.
--- NOTE | 2024-05-27 04:45 | NUR ---
2MG OF MORPHINE ADMINISTERED IV FOR SHORTNESS OF BREATH AND PAIN PER CPOT. FAMILY REMAINS AT BEDSIDE
--- NOTE | 2024-05-27 06:14 | NUR ---
0604- ASYSTOLE NOTED ON MONITOR. NO HR AUSCULTATED. HR- 0 RR- 0 O2- 0 MD HEREDIA NOTIFIED. HE WILL ARRIVE TO THE UNIT SHORTLY FAMILY MEMBERS REMAIN AT BEDSIDE SISTER ADENIKE STATES THAT [facility] IS THE FAMILY'S PREFERENCE
[2024-05-27] MEDS ORDERED: MIDODRINE HCL2.5 MG PO (07:26)
--- NOTE | 2024-05-27 07:39 | NUR ---
medications reconciled using patient medication list from [facility]
[2024-05-27] MEDS ORDERED: CEFTRIAXONE/SODIUM CHLORIDE 2 GM/100 ML PIGGYBACK IV SCH (09:00)
--- NOTE | 2024-05-27 09:01 | EKG ---
[facility] [address] [facility] [place] [address] Signed Atrial flutter with 2:1 AV conduction Right axis deviation Right ventricular hypertrophy Anteroseptal infarct (cited on or before 17-JUL-2017) T wave abnormality, consider lateral ischemia Prolonged QT Abnormal ECG When compared with ECG of 26-MAY-2024 16:50, (Unconfirmed) Atrial flutter has replaced Sinus rhythm Vent. rate has increased BY [address] more depressed in Inferior leads T wave inversion less evident in Lateral leads Confirmed by Ana Heredia MD ([id number]) on 05/27/2024 9:00:50 AM Electronically Signed By: ANA HEREDIA 05/27/24 09 PATIENT NAME: CALIN CROWDER Electrocardiogram DATE OF : 49 PHYSICIAN: ANA HEREDIA REPORT #: [id number] REPORT IS CONFIDENTIAL AND NOT TO BE RELEASED WITHOUT AUTHORIZATION
[2024-05-27] MEDS ORDERED: PHARMACY RENAL DOSE ADJUSTMENT 1 DOSE MISC PO SCH (12:00)
[2024-05-29] MEDS ORDERED: SCOPOLAMINE 1 MG/3 DAYS PATCH 1 EACH TDSY TD SCH (09:00)
== END 2024-05-27 06:04 | DRG 871 ==
LOC: ED 16:40 → CCU 20:10
PROVIDERS: Emergency Medicine; ADMIT Internal Medicine; ATTEND Internal Medicine
PROC: 3E033XZ Introduction of Vasopressor into Peripheral Vein, Percutaneous Approach (ICD-10-PCS; principal; 2024-05-26)
PROC: 3E03329 Introduction of Other Anti-infective into Peripheral Vein, Percutaneous Approach (ICD-10-PCS; 2024-05-26)
DX: A41.9 Sepsis, unspecified organism (principal); G93.41 Metabolic encephalopathy; J18.9 Pneumonia, unspecified organism; R65.21 Severe sepsis with septic shock; N17.9 Acute kidney failure, unspecified; I47.20 Ventricular tachycardia, unspecified; I47.10 Supraventricular tachycardia, unspecified; D68.9 Coagulation defect, unspecified; Z51.5 Encounter for palliative care; Z66 Do not resuscitate; I12.9 Hypertensive chronic kidney disease with stage 1 through stage 4 chronic kidney disease, or unspecified chronic kidney disease; N18.30 Chronic kidney disease, stage 3 unspecified; M19.90 Unspecified osteoarthritis, unspecified site; F03.90 Unspecified dementia, unspecified severity, without behavioral disturbance, psychotic disturbance, mood disturbance, and anxiety; I48.91 Unspecified atrial fibrillation; R62.50 Unspecified lack of expected normal physiological development in childhood; I25.10 Atherosclerotic heart disease of native coronary artery without angina pectoris; M10.9 Gout, unspecified; M62.3 Immobility syndrome (paraplegic); Z86.74 Personal history of sudden cardiac arrest; Z86.73 Personal history of transient ischemic attack (TIA), and cerebral infarction without residual deficits; I25.2 Old myocardial infarction; Z95.1 Presence of aortocoronary bypass graft; Z79.01 Long term (current) use of anticoagulants; Z79.82 Long term (current) use of aspirin
CPT/HCPCS: 31720; 36415; 51702; 71045; 71250; 74176; 80053; 81001; 83605; 83735; 85025; 85610; 85730; 87502; 93005; 93010; 96368; 99285-25; J0153; J2060; J2270; J2543; J3370; J7030; U0002